=== PATIENT | male | born 1960 | race Caucasian/White ===

== ENCOUNTER 2019-06-13 10:45 | Outpatient (CLI) | payer OTHER, MEDICARE, SELFPAY ==
--- NOTE | ~2019-06-13 | XR_ITS ---
XR chest 2V 06/13/2019 11:37 Indication: Chest pain and shortness of breath Procedure: PA and lateral views of the chest Comparison: Comparison to multiple prior studies sequentially, with oldest reviewed study dated 04/22. Findings: Borderline heart size. Mild pulmonary vascular congestion. No focal pneumonia, pleural effu bree or pneumothorax. Impression: 1: Borderline heart size with mild pulmonary vascular congestion. Reviewed, dictated and finalized at location A. Impression: 1: Borderline heart size with mild pulmonary vascular congestion.
--- NOTE | 2019-06-13 11:35 | ECG_ITS ---
Measurements Intervals [place] Rate: 79 P: 67 AK: 218 QRS: 56 QRSD: 102 T: 49 QT: 360 QTc: 415 Interpretive Statements SINUS RHYTHM WITH FIRST DEGREE AV BLOCK BASELINE ARTIFACT- I, II, III, AVR, AVL, AVF ABNORMAL ECG Electronically Signed On 06-13-2019 14:07:32 CDT by Aidan Yadav D.O.
[2019-06-13 11:55] LABS: Alanine Aminotransferase 38 U/L (16-63); Albumin Level 3.2 g/dL (3.4-5.0); Alkaline Phosphatase 104 U/L (46-116); Anion Gap 14.2 mmol/L (7-16); Aspartate Amino Transferase 22 U/L (15-37); Bilirubin,Total 0.4 mg/dL (0.00-1.00); Blood Urea Nitrogen 71 mg/dL (7-18); Calcium 9.1 mg/dL (8.5-10.1); Carbon Dioxide 27 mmol/L (21-32); Chloride 103 mmol/L (98-108); Creatine Kinase 60 U/L (39-308); Estimated Glomerular Filt Rate 7; Glucose 227 mg/dL (70-99); Osmolality Calculated 315 mOsm/kg (285-295); Potassium 5.2 mmol/L (3.5-5.1); Sodium 139 mmol/L (136-145); Total Protein 6.9 g/dL (6.4-8.2); Troponin I < 0.02 ng/mL (0.00-0.056)
[2019-06-13 11:58] LABS: D Dimer 1.02 mg/L (0.19-0.50)
[2019-06-13 12:13] LABS: Basophils Absolute Auto 0.02 K/mm3 (0.00-0.10); Basophils Percent Auto 0.2 % (0.0-1.0); Eosinophils Absolute Auto 0.13 K/mm3 (0.02-0.50); Eosinophils Percent Auto 1.6 % (1.0-6.0); Hematocrit 30.3 % (40.0-54.0); Hemoglobin 10.5 g/dL (14.0-18.0); Immature Granulocyte Absolute 0.04 K/mm3 (0.00-0.00); Immature Granulocyte Percent A 0.5 % (0.0-0.0); Lymphocytes Absolute Auto 1.57 K/mm3 (1.10-4.50); Lymphocytes Percent Auto 19.1 % (18.0-42.0); Mean Corpuscular HGB Conc 34.7 g/dL (32.0-36.0); Mean Corpuscular Hemoglobin 35.2 pg (27.0-31.0); Mean Corpuscular Volume 101.7 fL (78.0-102.0); Mean Platelet Volume 9.3 fl (8.7-11.0); Monocytes Percent Auto 8.5 % (2.0-11.0); Neutrophils Absolute Auto 5.7 K/mm3 (1.7-7.2); Neutrophils Percent Auto 70.1 % (50.0-70.0); Platelet Count Result 172 K/mm3 (150-420); Red Blood Count 2.98 M/mm3 (4.70-6.10); Red Cell Distribution Width 12.6 % (11.6-14.4); White Blood Count 8.2 K/mm3 (4.8-10.8)
== END 2019-06-13 10:46 | disposition home or self-care (01) ==
LOC: CHSLAB 11:35
PROVIDERS: PCP Family Medicine; Visit Provider Family Medicine
DX: R07.9 Chest pain, unspecified (principal)
CPT/HCPCS: 36415; 71046; 80053; 82550; 82553; 84484; 85025; 85380; 93005

== ENCOUNTER 2019-06-15 07:38 | Outpatient (CLI) | payer OTHER, MEDICARE, SELFPAY ==
--- NOTE | ~2019-06-15 | CT_ITS ---
EXAMINATION: CTA chest PE protocol DATE: 06/15/2019 09:04 INDICATION: Anterior chest pain TECHNIQUE: Computed tomography angiography (CTA) of the chest was performed with 100 mL Omnipaque-350 intravenous contrast timed to evaluate the pulmonary arteries. Coronal maximum intensity projection 3D-reconstructions were created by the technologist. The dose-length product (DLP) was 1032.51 mGy-cm . Automated exposure control and iterative reconstruction technique were employed. COMPARISON: None. FINDINGS: The pulmonary arteries are well-opacified. No pulmonary embolism is identified. Dependent a telectasis is noted. There are are no focal airspace opacities. There is no pleural effusion or pneum othorax. No pathologically enlarged thoracic lymph nodes are identified. The heart size is normal. Ca lcified coronary artery atherosclerosis is noted. There is mild thoracic spondylosis. IMPRESSION: 1. No pulmonary embolism or acute cardiopulmonary abnormality. Reviewed, dictated and finalized at location A.
== END 2019-06-15 07:39 | disposition home or self-care (01) ==
LOC: CHSIMG 07:41
PROVIDERS: PCP Family Medicine; Visit Provider Family Medicine
DX: R07.9 Chest pain, unspecified (principal)
CPT/HCPCS: 71275; Q9965

== ENCOUNTER 2019-10-06 12:33 | Outpatient (CLI) | payer OTHER, MEDICARE, SELFPAY ==
[2019-10-06 16:20] LABS: Amphetamine Screen Urine Negative (Negative); Barbiturate Screen Urine Negative (Negative); Benzodiazepines Screen Urine Negative (Negative); Cannabinoid Screen Urine Negative (Negative); Cocaine Screen Urine Negative (Negative); Methadone Screen Urine Negative (Negative); Opiate Screen Urine Negative (Negative); Phencyclidine Screen Urine Negative (Negative)
== END 2019-10-06 12:34 | disposition home or self-care (01) ==
LOC: CHSLAB 12:34
PROVIDERS: PCP Family Medicine; Visit Provider Family Medicine
DX: Z02.6 Encounter for examination for insurance purposes (principal); L98.9 Disorder of the skin and subcutaneous tissue, unspecified; L03.90 Cellulitis, unspecified
CPT/HCPCS: 80307

== ENCOUNTER 2019-12-20 09:47 | Outpatient (CLI) | payer OTHER, MEDICARE, SELFPAY ==
--- NOTE | 2019-12-20 11:00 | NEURO_ITS ---
Patient Number: [id number] Impression: # Complains of numbness of hands. Patient is diabetic. # Bilateral Carpal Tunnel Syndrome, right more than left. 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 # Underlying neuropathic process (Diabetes Mellitus) # Abnormal needle/EMG exam. Nerve Conduction Studies Anti Sensory Summary Table Stim Site NR Peak (ms) P-T Amp (?V) Site1 Site2 Delta-P (ms) Dist (cm) Jadiel (m/s) Left Median Anti Sensory (2-3nd Digit) Wrist 5.3 9.7 Wrist 2-3nd Digit 5.3 14.0 26 Wrist 5.2 3.5 Wrist 2-3nd Digit 5.3 14.0 26 Right Median Anti Sensory (2-3nd Digit) Wrist 6.8 6.0 Wrist 2-3nd Digit 6.8 14.0 21 Wrist 6.7 15.6 Wrist 2-3nd Digit 6.8 14.0 21 Left Radial Anti Sensory (Base 1st Digit) Wrist 2.1 21.7 Wrist Base 1st Digit 2.1 0.0 Right Radial Anti Sensory (Base 1st Digit) Wrist 2.3 7.2 Wrist Base 1st Digit 2.3 0.0 Left Ulnar Anti Sensory (5th Digit) Wrist 4.4 10.0 Wrist 5th Digit 4.4 14.0 32 Right Ulnar Anti Sensory (5th Digit) Wrist 4.1 20.1 Wrist 5th Digit 4.1 14.0 34 Motor Summary Table Stim Site NR Onset (ms) O-P Amp (mV) Site1 Site2 Delta-0 (ms) Dist (cm) Jadiel (m/s) Left Median Motor (Abd Poll Brev) Wrist 5.2 2.8 Elbow Wrist 7.5 35.0 47 Elbow 12.7 0.9 Right Median Motor (Abd Poll Brev) Wrist 6.3 2.2 Elbow Wrist 6.5 31.0 48 Elbow 12.8 2.0 Left Ulnar Motor (Abd Dig Minimi) Wrist 3.1 4.0 A Elbow Wrist 7.9 36.0 46 A Elbow 11.0 2.5 B Elbow Wrist 7.4 31.0 42 B Elbow 10.5 2.8 Right Ulnar Motor (Abd Dig Minimi) Wrist 3.8 3.0 A Elbow Wrist 6.0 32.0 53 A Elbow 9.8 2.2 F Wave Studies NR F-Lat (ms) L-R F-Lat (ms) Left Median (Mrkrs) (Abd Poll Brev) 38.38 0.94 Right Median (Mrkrs) (Abd Poll Brev) 39.32 0.94 Left Ulnar (Mrkrs) (Abd Dig Min) 33.38 0.17 Right Ulnar (Mrkrs) (Abd Dig Min) 33.21 0.17 EMG Side Muscle Nerve Root Ins Act Fibs Amp Dur Recrt Comment Right 1stDorInt Ulnar C8-T1 Nml Nml Nml >12ms Reduced Right Ext Indicis Radial (Post Int) C7-8 Nml Nml Nml Nml Nml Right Ext Digitorum Radial (Post Int) C7-8 Nml Nml Nml Nml Nml Right BrachioRad Radial C5-6 Nml Nml Nml Nml Nml Right PronatorTeres Median C6-7 Nml Nml Nml Nml Nml Right Abd Poll Brev Median C8-T1 Nml Nml Nml Nml Nml Left 1stDorInt Ulnar C8-T1 Nml Nml Nml >12ms Reduced Left Ext Indicis Radial (Post Int) C7-8 Nml Nml Nml Nml Nml Left Ext Digitorum Radial (Post Int) C7-8 Nml Nml Nml Nml Nml Left BrachioRad Radial C5-6 Nml Nml Nml Nml Nml Left PronatorTeres Median C6-7 Nml Nml Nml Nml Nml Left Abd Poll Brev Median C8-T1 Nml Nml Nml Nml Nml Right ABD Dig Min Ulnar C8-T1 Nml Nml Nml Nml Nml Left ABD Dig Min Ulnar C8-T1 Nml Nml Nml >12ms Reduced MTDD
== END 2019-12-20 09:48 | disposition home or self-care (01) ==
PROVIDERS: PCP Family Medicine; Visit Provider Family Medicine
DX: G56.03 Carpal tunnel syndrome, bilateral upper limbs (principal); G56.22 Lesion of ulnar nerve, left upper limb
CPT/HCPCS: 95886; 95911

== ENCOUNTER 2020-08-21 09:53 | Outpatient (CLI) | payer OTHER, MEDICARE, SELFPAY ==
--- NOTE | ~2020-08-21 | NM_ITS ---
EXAMINATION: NM serafin stress w perfusion DATE: 08/21/2020 11:54 INDICATION: Dyspnea TECHNIQUE: Rest images were obtained following intravenous administration of 9.8 mCi Tc99m tetrofosmi n (Myoview). The patient was infused intravenously with Lexiscan (Regadenoson). Then, 31.77 mCi Tc99m tetrofosmin (Myoview) was administered intravenously, and stress images were obtained. Data was arjun nstructed into short axis and horizontal and vertical long axis SPECT images. Gated SPECT images were also obtained. COMPARISON: 01/29/1982 FINDINGS: There is a moderate-sized mild nonreversible perfusion defect at the apical, apical lateral , apical anterior, mid anterolateral and basilar anterolateral segments consistent with infarct. Ther e is adjacent mild reversible ischemia in the mid anterior and basilar anterior segments. This is new since the prior study. Left ventricular enlargement with normal wall motion and ejection fraction. Left ventricular ejection fraction measures 51%. IMPRESSION: 1. Moderate-sized mild perfusion defect, reversible consistent with ischemia in the mid anterior and basilar anterior segments and nonreversible consistent with infarct at the apical, apical anterior, a pical lateral, mid anterolateral and basilar inferolateral segments. 2. Mild left ventricular enlargement with normal left ventricular ejection fraction measuring 51%. Reviewed, dictated and finalized at location A. IMPRESSION: 1. Moderate-sized mild perfusion defect, reversible consistent with ischemia in the mid anterior and basilar anterior segments and nonreversible consistent wi th infarct at the apical, apical anterior, apical lateral, mid anterolateral an d basilar inferolateral segments. 2. Mild left ventricular enlargement with normal left ventricular ejection frac tion measuring 51%.
--- NOTE | 2020-08-21 10:02 | EST_ITS ---
Patient Info Name: Ramone Coleman Age: 60 years : 1960 Gender: Male Ht: 75 in Wt: 305 lbs BSA: 2.76 m2 Exam Date: 08/21/2020 10:53 AM Exam Location: [facility] Stress Patient Status: Outpatient Admit Date: 08/21/2020 Staff Ordering Physician: Aidan Yadav DO Attending Provider: Aidan Yadav DO Exercise Technologist: Mary Barker RDCS Exercise Physician: Aidan Yadav DO Exam Type: CA stress serafin w NM Study Info Indications R06.00 - Dyspnea, unspecified A regadenoson stress test was performed. Summary 1. 1. Negative lexiscan stress test for ischemic ST changes by ECG criteria. 2. 2. Baseline hypertension. 3. 3. Nuclear scan to follow and will be reported separately. Please correlate with it. 4. 4. Patient informed of the above results. Protocol: Lexiscan Stress ECG Details Stage: REST Duration (min): 0 min : 49 sec HR (bpm): 61 SBP (mmHg): 146 DBP (mmHg): 61 Stage: REST Duration (min): 4 min : 57 sec HR (bpm): 59 SBP (mmHg): 146 DBP (mmHg): 61 Stage: STAGE 1 Duration (min): 1 min : 0 sec HR (bpm): 64 SBP (mmHg): 146 DBP (mmHg): 61 Stage: RECOVERY Duration (min): 1 min : 0 sec HR (bpm): 67 SBP (mmHg): 146 DBP (mmHg): 61 Stage: RECOVERY Duration (min): 2 min : 0 sec HR (bpm): 65 SBP (mmHg): 146 DBP (mmHg): 61 Stage: RECOVERY Duration (min): 3 min : 0 sec HR (bpm): 65 SBP (mmHg): 148 DBP (mmHg): 52 Stage: RECOVERY Duration (min): 3 min : 4 sec HR (bpm): 65 SBP (mmHg): 148 DBP (mmHg): 52 Rest HR: 59 bpm Peak HR: 67 bpm Rest Sys BP: 146 mmHg Peak Sys BP: 148 mmHg Max Pred HR: 158 bpm % Max Pred HR: 42 % Target HR: 134 bpm Max RPP: 9,916 bpm*mmHg Termination Reason: Completed protocol Cardiac Symptoms: Shortness of breath Total Time: 1 min : 0 sec Rest Kiser BP: 61 mmHg Peak Kiser BP: 52 mmHg Total Dose: 0.4 mg Resting ECG Sinus rhythm, borderline T wave in inferior leads. Stress ECG No ST changes. Arrhythmias None. Report Signatures
== END 2020-08-21 09:54 | disposition home or self-care (01) ==
PROVIDERS: PCP Family Medicine; Visit Provider Internal Medicine Cardiovascular Disease
DX: R06.00 Dyspnea, unspecified (principal); R94.39 Abnormal result of other cardiovascular function study; I10 Essential (primary) hypertension
CPT/HCPCS: 78452; 93017; A9502; J2785

== ENCOUNTER 2020-10-09 01:02 | Day surgery (SDC) | payer OTHER, MEDICARE, SELFPAY ==
[2020-10-09] VITALS (25 sets, daily range): BP systolic 127–162; BP diastolic 56–88; PULSE 49–66; RESP 16–20; TEMP 35.7–36.7; O2SAT 87–98; BMI 39.4; BMI 39.5
--- NOTE | 2020-10-09 10:03 | MISC_ITS ---
This report was moved to the correct visit, [id number] on 10/10/20. Original report was signed by Ariel Albarran MD 10/09/20 1207. Moderate Sedation Note-Pt Data Patient Data Allergies Allergy/AdvReac Type Severity Reaction Status Date / Time No Known Allergies Allergy Unknown Verified 10/09/20 07:51 Home Medications Medication Instructions Recorded Confirmed Type atorvastatin 80 mg PO HS 07/15/19 10/09/20 History clopidogrel [Plavix] 75 mg PO DAILY 07/15/19 10/09/20 History diltiazem HCl 120 mg PO DAILY 07/15/19 10/09/20 History furosemide 40 mg PO DAILY 07/15/19 10/09/20 History gabapentin 600 mg PO TID 07/15/19 10/09/20 History glimepiride 4 mg PO BID 07/15/19 10/09/20 History isosorbide mononitrate 120 mg PO DAILY 07/15/19 10/09/20 History losartan 50 mg PO DAILY 07/15/19 10/09/20 History metformin 500 mg PO BID 07/15/19 07/15/19 History omeprazole 40 mg PO DAILY 07/15/19 10/09/20 History acetaminophen [Mapap 650 mg PO Q4H PRN 14 Days #30 07/22/19 10/09/20 Rx (acetaminophen)] tablet apixaban [Eliquis] 5 mg PO Q12HR 14 Days #28 tablet 07/22/19 Rx magnesium oxide 200 mg PO Q12HR 3 Days #3 tablet 07/22/19 Rx miconazole nitrate [Aloe [place] 1 applic TOPICAL Q12HR #1692 gm 07/22/19 Rx Antifungal (micon)] hydrocodone-acetaminophen 1 tab PO Q6-8H PRN 10/09/20 10/09/20 History Current Medications: Active Medications Clopidogrel Bisulfate (Clopidogrel Bisulfate 75 Mg Tablet) 75 mg PO QAM DINH Dextrose (Dextrose 50% 25 Gm/50 Ml Syringe) 12.5 gm IV PUSH PRN PRN; Protocol PRN Reason: Hypoglycemia Glucagon (Glucagon For Inj 1 Mg Vial) 1 mg IM PRN PRN; Protocol PRN Reason: Hypoglycemia Glucose (Glucose Oral Gel 15 Gm Of Glucse In 37.5 Gm Tube) 15 gm PO PRN PRN; Protocol PRN Reason: Hypoglycemia Piperacillin Sod/Tazobactam Sod (Zosyn 2.25 Gm/D5w 50 Ml) 2.25 gm in 50 mls @ 100 mls/hr IVPB Q6H DINH Last Admin: 10/09/20 10:58 Dose: 100 mls/hr Documented by: Sodium Chloride (Normal Saline Iv) 1,000 mls @ 50 mls/hr IV CONT .Q20H DINH Last Admin: 10/09/20 10:59 Dose: 50 mls/hr Documented by: Dextrose (Dextrose 5% 1,000 Ml) 1,000 mls @ 100 mls/hr IVPB PRN PRN; Protocol PRN Reason: Hypoglycemia Insulin Aspart (Insulin Aspart (*Bkc) 100 Units/Ml) 2 - 5 units SUB-Q TIDWM DINH; Protocol Ondansetron HCl (Ondansetron Inj 4 Mg/2 Ml Vial) 4 mg IV PUSH Q4H PRN PRN Reason: Nausea Sedation/Anesthesia: No previous sedation/anesthesia problems (including family history). PMFSH Past Medical History Medical History Coronary artery disease DM type 2 (diabetes mellitus, type 2) DVT (deep venous thrombosis) GERD (gastroesophageal reflux disease) Hyperlipidemia Hypertension Peripheral arterial disease Surgical History Surgical History H/O cardiac catheterization History of revascularization procedure of lower extremity Hx of CABG Family History Family History Sibling Family history of cardiovascular disease Father Family history of cardiovascular disease Son Depression Son Family history of seizure disorder Other Family history of seizure disorder Other Cerebrovascular accident Diabetes mellitus Family history of arthritis Family history of coronary artery disease Family history of hypercholesterolemia Family history of mental disorder Family history of obesity Hypertension Social History Social History (Reviewed 10/09/20 @ 1
--- NOTE | 2020-10-09 10:10 | SUR.PREOP ---
ARRIVES TO [facility] W/ AT SIDE FOR SCHEDULED LHC W/ DR. CRAFT. DENIES CP OR SOB ON ARRIVAL. IS HEMODIALYSIS PT; FISTULA IS ON L. ARM. ORIENTED TO ROOM, PLAN OF CARE, ORDERS, PROCEDURE. QUESTIONS ANSWERED. LAB RESULTS ON CHART FROM [employer]. IV STARTED BY YOVANA MUÑOZ RN WITH ULTRASOUND. VS OBTAINED, SKIN PREPPED, PULSES MARKED, CONSENT SIGNED. PT. STATES HE VOIDS LITTLE. WILL CONTINUE TO MONITOR.
--- NOTE | 2020-10-09 12:15 | SUR.PHASEII ---
BEGIN PHASE II RECOVERY. RETURNS TO LANDSCAPE DESIGNER 7 S/P [facility] W/ DR. CRAFT. 6FR SHEATH INTACT R. GROIN SITE. SITE SOFT, NONTENDER. NO BLEEDING OR HEMATOMA NOTED. GAUZE AND TEGADERM DRESSING C/D/I OVER SITE. R. PEDAL PULSE PALP STRONG. REVIEWED BEDREST ACTIVITY RESTRICTIONS /W PT. AND . ANGIOMAX GTT OFF AT 1200. SHEATH MAY BE PULLED AFTER 1400. WILL CONTINUE TO MONITOR.
[2020-10-09] MEDS: HYDROcodone/acetaminophen (*CRX) 7.5-325 MG TABLET 1 TAB PO ×4 (13:17→20:40)
--- NOTE | 2020-10-09 14:00 | SUR.PHASEII ---
DUE TO PT'S IMPAIRED RENAL STATUS (ON HEMODIALYSIS), WILL CHECK ACT VALUE BEFORE PULLING SHEATH. EXPLAINED TO PT AND .
--- NOTE | 2020-10-09 14:41 | SUR.PHASEII ---
1441: ACT 186. UNABLE TO PULL SHEATH AT THIS TIME UNTIL ACT VALUE LESS THAN OR EQUAL TO 140. EXPLAINED THIS TO PT. AND . VOICED UNDERSTANDING.
--- NOTE | 2020-10-09 15:48 | SUR.PHASEII ---
1548: ACT NOW AT 180. HAS ONLY DROPPED 6 POINTS SINCE LAST HOUR. STILL UNABLE TO SAFELY DISCONTINUE SHEATH R. GROIN AT THIS TIME DUE TO BLEEDING RISK. PT AND AWARE. WILL RECHECK ACT IN 1 HOUR. WILL CONTINUE TO MONITOR. ZANJERO, CARDIOLOGY DRIVER SUPERVISOR TAHIRA, AND SUSTAINABILITY OFFICER AWARE OF ELEVATED ACT.
--- NOTE | 2020-10-09 16:45 | SUR.PHASEII ---
1645: ACT NOW AT 169. WILL CONTINUE TO MONITOR.
--- NOTE | 2020-10-09 17:48 | SUR.PHASEII ---
1748: ACT NOW AT 158. BLOOD GLUCOSE AT 72. BEDREST CONTINUES. TAHIRA CASTAÑEDA INCOME TAX AUDITOR HERE. SHEATH MAY BE PULLED ONCE ACT AT OR BELOW 140. PT. AND AWARE. WILL CONTINUE TO MONITOR.
[2020-10-09 17:56] LABS: Glucose Point of Care 72 mg/dl (65-105)
--- NOTE | 2020-10-09 18:51 | SUR.PHASEII ---
1851: ACT NOW 164. TAHIRA CASTAÑEDA MULTIPLE NEEDLE STITCHER AWARE. SHE SPOKE W/ DR. CRAFT. NO CHANGE IN STATUS OTHERWISE. R. GROIN SITE REMAINS SOFT, NONTENDER. BEDREST CONTINUES. WILL CONTINUE TO MONITOR.
--- NOTE | 2020-10-09 20:50 | SUR.PHASEII ---
HAVE BEEN UNABLE TO OBTAIN ADDITIONAL ACT RESULTS USING I-STAT AND LAB UNABLE TO RUN ACT AT THIS TIME. WILL DISCONTINUE SHEATH PER DR. CRAFT'S ORDER; HE IS AWARE LAST ACT RESULT 164. HAVE REQUESTED BACKUP TO MANUALLY PULL SHEATH. AWAIT ARRIVAL OF BACKUP STAFF FOR SAFETY.
[2020-10-09] MEDS: ALBUTEROL SULFATE (*SP) AEROSOL 1 PUFF INHALATION (21:40)
[2020-10-09] MEDS: hydrALAZINE HCL 50 MG TABLET 100 MG PO (21:45)
[2020-10-09] MEDS: GABAPENTIN 300 MG CAPSULE 600 MG PO (21:45)
[2020-10-09] MEDS: carvediloL 25 MG TABLET PO (21:45)
--- NOTE | 2020-10-09 21:57 | WPDCARDPROC ---
Cardiac Cath Procedure Note Date of procedure:: 10/09/20 Performing physician:: Ariel Albarran MD Procedure Procedure note:: Performing physician:: Ariel Albarran MD Procedure performed:: CARDIAC CATHETERIZATION AND PERCUTANEOUS CORONARY INTERVENTION REPORT DATE OF PROCEDURE: 10/09/2020 INDICATION FOR PROCEDURE: chest pain, shortness of breath, abnormal dobutamine stress echo; history of CAD BRIEF CLINICAL HISTORY: 60-year-old male with CAD, history of PCI/stenting of LCX at outside hospital -intervention report not available; hypertension, diabetes mellitus, ESRD on hemodialysis, dyslipidemia with reported history of intolerance to statins in the form of myalgia. Patient was referred by Dr. Yadav for coronary angiogram in the setting of anginal chest pain, shortness of breath and abnormal dobutamine stress echo. Patient had dobutamine stress echo performed at [facility] on 07/12/2020 prior consideration for renal transplant which reportedly showed global hypokinesis at peak stress with apical akinesis. Coronary angiogram was recommended. Benefits and risks of the procedure were discussed with the patient in depth, and informed consent was obtained prior to the procedure. Risks of the procedure include but are not limited to vascular complications including groin hematoma, retroperitoneal bleed, vessel perforation; periprocedural DC, cardiac arrhythmias, stroke, contrast induced nephropathy, and . After discussing all the benefits, risks and alternatives, patient was willing to proceed with the procedure. PROCEDURES PERFORMED: 1. Left heart catheterization- Selective left and right coronary angiogram; left ventriculogram and hemodynamic assessment 2. Percutaneous coronary intervention- a) IFR of proximal LAD b) intravascular ultrasound (IVUS) of ostial-proximal LAD 3. Moderate sedation-CPT code 19699 MODERATE SEDATION: Midazolam 2 mg; fentanyl 50 mcg. Start time 1109 , Stop time 1202 ; Total [id number]-[id number] time 53 minutes; Aura Osman RN was trained observer for moderate sedation. ACCESS SITE: Right common femoral artery PROCEDURE NOTE: After obtaining informed consent, patient was brought to catheterization lab and prepped and draped in a usual sterile manner. After local anesthesia with lidocaine, right common femoral artery access was taken with micropuncture needle followed by insertion of a 5 Mexican sheath. Selective left and right coronary angiogram was performed using 5 Mexican JL4 and JR4 catheters respectively. Orthogonal views were taken. Next, a 5 Mexican pigtail catheter was advanced in the LV cavity and was flushed with normal saline. LV pressure measurement was performed. After this, left ventriculogram was performed. The catheter was flushed again, and gradient across the aortic valve was measured on the pullback of the catheter. The angiographic and IFR and IVUS findings are given below. FINDINGS: LEFT MAIN CORONARY: The left main coronary artery is a large caliber, long vessel with minimal plaque in the distal segment. The vessel bifurcates into LAD and left circumflex branches. LEFT ANTERIOR DESCENDING ARTERY: The LAD is a large caliber vessel in the proximal most segment, poorly defined about 50 to 60% stenosis seen in the proximal segment at the origin of the diagonal branch ( IFR and IVUS findings described below). The vessel tapers distally and reaches LV apex. D1 is a medium caliber vessel with poorly defined stenosis at the ostium. D2 is a medium caliber vessel without significant focal stenosis. Remaining diagonal branches are small caliber vessels. LEFT CIRCUMFLEX ARTERY: The left circumflex artery is a medium caliber vessel; gives rise to small caliber OM1 branch with mild diffuse disease in the proximal segment; a medium caliber OM2 branch with mild diffuse disease in the proximal segment. Mid distal LCX has stents extending into the proximal segment of the OM 3 branch. High-grade, m
--- NOTE | 2020-10-09 21:58 | SUR.PHASEII ---
LAST BLOOD GLUCOSE AT 0, 96. GAVE HS MEDS AT 2150 WITH SMALL SNACK OF VANILLA WAFERS. JORGE CARABALLO RN HERE FOR BACKUP FOR SHEATH PULL. MANUAL 6FR R. GROIN SHEATH PULL AT THIS TIME BY THIS RN PER PROTOCOL. FIRM, STEADY MANUAL PRESSURE TO SITE UNTIL HEMOSTASIS ACHIEVED. WILL MONITOR CLOSELY.
--- NOTE | 2020-10-09 22:03 | PM.IMHP ---
H&P: HPI History of Present Illness Date/Time: 10/09/20 22:03 CC- Chest pain and shortness of breath HPI- 60-year-old male with CAD, history of PCI/stenting of LCX at outside hospital -intervention report not available; hypertension, diabetes mellitus, ESRD on hemodialysis, dyslipidemia with reported history of intolerance to statins in the form of myalgia. Patient was referred by Dr. Yadav for coronary angiogram in the setting of anginal chest pain, shortness of breath and abnormal dobutamine stress echo. Patient had dobutamine stress echo performed at [facility] on 07/12/2020 prior consideration for renal transplant which reportedly showed global hypokinesis at peak stress with apical akinesis. Coronary angiogram was recommended. Chief Complaint: CP, [facility] Past Medical History Medical History Acute upper respiratory infection, unspecified Chest pain in adult Dupuytren contracture Edema of both legs GERD (gastroesophageal reflux disease) HTN (hypertension) (12/30/16) Hyperlipidemia (12/30/16) Obstructive sleep apnea (09/10/17) ORIANA on CPAP Shortness of breath (09/10/17) Type 2 diabetes mellitus (12/30/16) Surgical History Surgical History History of elbow surgery History of knee surgery History of shoulder surgery History of surgery on arm Family History Family History Father Diabetes mellitus Mother Diabetes mellitus Mother Family history of type 2 diabetes mellitus Father Family history of coronary artery disease Family history of type 2 diabetes mellitus Brother Family history of type 2 diabetes mellitus Cerebrovascular accident Social History Social History Smoking packs per day: 2 Smoking cigarettes per day: 40.0 Years smoked: 50 Smoking pack-years: 100.00 Smoking status: Former smoker Second hand tobacco smoke exposure: Yes Smoking end date: 03/11/17 Alcohol intake: former Substance use: never Substance use type: does not use Living arrangements: with family Additional living arrangements comments: LIVES W/ , [place] Gender identity (if verbalized by the patient): Male Spiritual care concerns: No Meds Home Medications and Allergies Home Medications Medication Instructions Recorded Confirmed Type aspirin 81 mg tablet,delayed 81 mg PO DAILY 03/16/19 10/09/20 History release gabapentin 300 mg capsule 600 mg PO HS 03/16/19 10/09/20 History insulin lispro protamine-lispro 1 sliding scale dose SUB-Q 03/16/19 10/09/20 History 100 unit/mL (50-50) subcutaneous USEASDIRECTD susp levothyroxine 100 mcg tablet 100 mcg PO DAILY 03/16/19 10/09/20 History losartan 100 mg tablet 100 mg PO DAILY 03/16/19 10/09/20 History metolazone 2.5 mg tablet 2.5 mg PO DAILY 03/16/19 10/09/20 History triamcinolone acetonide 0.1 % 1 applic TOPICAL BID 03/16/19 10/09/20 History topical cream multivitamin 1 tablet PO DAILY 03/17/19 10/09/20 History omega-3 fatty acids 1,000 mg 1,000 mg PO DAILY 02/02/20 10/09/20 History capsule sucroferric oxyhydroxide 500 mg 500 mg PO TID 02/03/20 10/09/20 History chewable tablet dextromethorphan-guaifenesin 10 10 ml PO Q4-6H PRN #500 ml 05/22/20 10/09/20 Rx mg-100 mg/5 mL oral liquid albuterol sulfate 1 inh INHALATION Q4H PRN 10/09/20 10/09/20 History amlodipine 10 mg PO DAILY 10/09/20 10/09/20 History bumetanide 8 mg PO DAILY 10/09/20 10/09/20 History carvedilol 25 mg PO Q12H 10/09/20 10/09/20 History cholecalciferol (vitamin D3) 25 mcg PO DAILY 10/09/20 10/09/20 History [Vitamin D3] hydralazine 100 mg PO BID 10/09/20 10/09/20 History hydrocodone-acetaminophen 1 tablet PO Q4-6H PRN 10/09/20 10/09/20 History hydrocodone-acetaminophen 2 tablet PO Q4-6H PRN 10/09/20 10/09/20 History isosorbide mononitrate
--- NOTE | 2020-10-09 22:05 | WPDMODSED ---
Moderate Sedation Note-Pt Data Patient Data Allergies Allergy/AdvReac Type Severity Reaction Status Date / Time No Known Allergies Allergy Verified 10/09/20 11:01 Home Medications Medication Instructions Recorded Confirmed Type aspirin 81 mg tablet,delayed 81 mg PO DAILY 03/16/19 10/09/20 History release gabapentin 300 mg capsule 600 mg PO HS 03/16/19 10/09/20 History insulin lispro protamine-lispro 1 sliding scale dose SUB-Q 03/16/19 10/09/20 History 100 unit/mL (50-50) subcutaneous USEASDIRECTD susp levothyroxine 100 mcg tablet 100 mcg PO DAILY 03/16/19 10/09/20 History losartan 100 mg tablet 100 mg PO DAILY 03/16/19 10/09/20 History metolazone 2.5 mg tablet 2.5 mg PO DAILY 03/16/19 10/09/20 History triamcinolone acetonide 0.1 % 1 applic TOPICAL BID 03/16/19 10/09/20 History topical cream multivitamin 1 tablet PO DAILY 03/17/19 10/09/20 History omega-3 fatty acids 1,000 mg 1,000 mg PO DAILY 02/02/20 10/09/20 History capsule sucroferric oxyhydroxide 500 mg 500 mg PO TID 02/03/20 10/09/20 History chewable tablet dextromethorphan-guaifenesin 10 10 ml PO Q4-6H PRN #500 ml 05/22/20 10/09/20 Rx mg-100 mg/5 mL oral liquid albuterol sulfate 1 inh INHALATION Q4H PRN 10/09/20 10/09/20 History amlodipine 10 mg PO DAILY 10/09/20 10/09/20 History bumetanide 8 mg PO DAILY 10/09/20 10/09/20 History carvedilol 25 mg PO Q12H 10/09/20 10/09/20 History cholecalciferol (vitamin D3) 25 mcg PO DAILY 10/09/20 10/09/20 History [Vitamin D3] hydralazine 100 mg PO BID 10/09/20 10/09/20 History hydrocodone-acetaminophen 1 tablet PO Q4-6H PRN 10/09/20 10/09/20 History hydrocodone-acetaminophen 2 tablet PO Q4-6H PRN 10/09/20 10/09/20 History isosorbide mononitrate 30 mg PO DAILY 10/09/20 10/09/20 History magnesium oxide 400 mg PO DAILY 10/09/20 10/09/20 History sevelamer carbonate 2,400 mg PO TID 10/09/20 10/09/20 History Current Medications: Active Medications Hydrocodone Bitart/Acetaminophen (Hydrocodone/Acetaminophen (*Crx) 7.5-325 Mg Tablet) 1 tab PO Q4-6H PRN PRN Reason: Pain, Moderate Last Admin: 10/09/20 20:40 Dose: 1 tab Documented by: Hydrocodone Bitart/Acetaminophen (Hydrocodone/Acetaminophen (*Crx) 7.5-325 Mg Tablet) 2 tab PO Q4-6H PRN PRN Reason: Pain (Scale Score 7-10) Albuterol (Albuterol Sulfate (*Sp) Aerosol 1 Puff) 1 puff INHALATION Q4HRT PRN PRN Reason: Shortness Of Breath Or Wheezin Amlodipine Besylate (Amlodipine Besylate 5 Mg Tablet) 10 mg PO DAILY [facility] Aspirin (Aspirin 81 Mg Enteric Tablet) 81 mg PO DAILY [facility] Bumetanide (Bumetanide 1 Mg Tablet) 8 mg PO DAILY [facility] Carvedilol (Carvedilol 25 Mg Tablet) 25 mg PO Q12H [facility] Dextrose (Dextrose 50% 25 Gm/50 Ml Syringe) 12.5 gm IV PUSH PRN PRN; Protocol PRN Reason: Hypoglycemia Fish Oil ([place] 3 Polyunsat Fatty Acids 1 Gm Cap) 1 gm PO DAILY [facility] Gabapentin (Gabapentin 300 Mg Capsule) 600 mg PO HS [facility] Glucagon (Glucagon For Inj 1 Mg Vial) 1 mg IM PRN PRN; Protocol PRN Reason: Hypoglycemia Glucose (Glucose Oral Gel 15 Gm Of Glucse In 37.5 Gm Tube) 15 gm PO PRN PRN; Protocol PRN Reason: Hypoglycemia Guaifenesin/Dextromethorphan (Guaifenesin/Dextromethorphan 10 Ml Udc) 10 ml PO Q4-6H PRN PRN Reason: cough Hydralazine HCl (Hydralazine Hcl 50 Mg Tablet) 100 mg PO BID [facility] Sodium Chloride (Normal Saline Iv) 500 mls @ 100 mls/hr IV CONT .Q5H [facility] Dextrose (Dextrose 5% 1,000 Ml) 1,000 mls @ 100 mls/hr IVPB PRN PRN; Protocol PRN Reason: Hypoglycemia Insulin Lispro Protam/Lispro Human (Insulin Npl/Insulin Lispro 50/50 100 Units/Ml Vial (*Bkc)) units SUB-Q USEASDIRECTD [facility] Isosorbide Mononitrate (Isosorbide Mononitrate 30 Mg Tab.Er.24h) 30 mg PO DAILY [facility] Levothyroxine Sodium (Levothyroxine Sodium 100 Mcg Tablet) 100 mcg PO DAILY [facility] Losartan Potassium (Losartan Potassium 100 Mg Tablet) 100 mg PO DAILY [facility] Magnesium Oxide (Magnesium Oxide 400 Mg Tablet) 400 mg PO DAILY [facility] Metolazone (Metolazone 2.5 Mg Tablet) 2.5 mg PO DAILY [facility] Multivitamins Therapeuti
--- NOTE | 2020-10-09 22:30 | SUR.PHASEII ---
HEMOSTASIS ACHIEVED TO R. GROIN PUNCTURE SITE AFTER 32 MINUTE MANUAL PRESSURE HOLD TO SITE BY THIS RN. TOLERATED WELL. SITE SOFT, NONTENDER. NO SIGNS OF HEMATOMA OR BLEEDING NOTED. SITE DRESSED W/ STAT SEAL AND TEGADERM DRESSING. REVIEWED BEDREST ACTIVITY RESTRICTIONS AND PRECAUTIONS W/ PT. VOICED UNDERSTANDING. BEDREST X 6 HOURS NOW POST HEMOSTASIS UNTIL 0430. HAS HAD ONGOING C/O CHRONIC BACK PAIN SINCE RESTRICTED TO LAY FLAT IN BED. HAVE MEDICATED W/ PRN RX ORDERED. WILL CONTINUE TO MONITOR. PLAN TRANSFER TO IMU 205.1 EXTENDED RECOVERY STATUS PT. AFTER OUTPATIENT PROCEDURE. PT. AND ARE AWARE.
[2020-10-09] MEDS: ONDANSETRON INJ 4 MG/2 ML VIAL IV PUSH (22:50)
--- NOTE | 2020-10-09 23:00 | SUR.PHASEII ---
C/O NAUSEA AND HAD EMESIS AT 2245. APPROX 200ML YELLOW CREAMY FLUID. ZOFRAN 4MG IVP GIVEN AND COLD CLOTH TO FOREHEAD. NAUSEA EASING BY 2300. REPORT CALLED TO CHRISTY MG IN IMU. PT. TO TRANSFER TO IMU 205.1 EXTENDED RECOVERY STATUS PT.
--- NOTE | 2020-10-09 23:20 | SUR.PHASEII ---
PHASE II RECOVERY COMPLETE. TRANSFERRED TO IMU 205. 1 VIA BED ON TELE MONITOR TO CONTINUE STAY EXTENDED RECOVERY STATUS PT AFTER OUTPATIENT PROCEDURE. OBSERVED R. GROIN SITE Edy/ CHRISTY MG ON ARRIVAL. NO NEW CHANGES R. GROIN STATUS. REPORTS NAUSEA SUBSIDED. NO DISTRESS NOTED.
--- NOTE | 2020-10-09 23:21 | ADMGEN ---
This patient, Ramone Coelman, was admitted EXTENDED RECOVERY AFTER OUTPATIENT PROCEDURE FROM CLINIC OFFICE ASSISTANT 7 to IMU Room 205-01. Patient/family oriented to hospital policies and general routines including ID bracelet, bed and alarms, visiting hours, pain management, procedures, bathroom and other care routines, personal items, smoking policy, room service/diet, and visiting hours. REPORT HAS BEEN CALLED TO CHRISTY MG AT 2300 AND BOTH CHRISTY AND THIS RN OBSERVE RLuann PARSONS SITE STATUS AT THIS TIME. Information on how to activate the Rapid Response Team has been discussed. Patient/Family are encouraged to report perceived risks to care and to ask questions if they do not understand what they are told or what they should do.
[2020-10-10] VITALS (12 sets, daily range): BP systolic 116–147; BP diastolic 49–65; PULSE 48–64; RESP 12–24; TEMP 36.1–37.2; O2SAT 91–98
--- NOTE | 2020-10-10 00:11 | PC.NURSE ---
This patient, Ramone Coleman, was received from [[facility] ] on 10/09/20 at 2330. Patient/family oriented to unit policies and routines
[2020-10-10 02:07] LABS: Activated Clotting Time 180 sec (74-137)
[2020-10-10 02:07] LABS: Activated Clotting Time 158 sec (74-137)
[2020-10-10 02:07] LABS: Activated Clotting Time 186 sec (74-137)
[2020-10-10 02:07] LABS: Activated Clotting Time 164 sec (74-137)
[2020-10-10 02:07] LABS: Activated Clotting Time 169 sec (74-137)
[2020-10-10] MEDS: LEVOTHYROXINE SODIUM 100 MCG TABLET PO (05:49)
[2020-10-10 08:12] LABS: Glucose Point of Care 96 mg/dl (65-105)
[2020-10-10] MEDS: carvediloL 25 MG TABLET PO (09:22)
[2020-10-10] MEDS: SEVELAMER CARBONATE 800 MG TABLET 2400 MG PO (09:22)
[2020-10-10] MEDS: amLODIPine BESYLATE 5 MG TABLET 10 MG PO (09:22)
[2020-10-10] MEDS: hydrALAZINE HCL 50 MG TABLET 100 MG PO (09:22)
[2020-10-10] MEDS: LOSARTAN POTASSIUM 100 MG TABLET PO (09:23)
[2020-10-10] MEDS: OMEGA 3 POLYUNSAT FATTY ACIDS 1 GM CAP PO (09:23)
[2020-10-10] MEDS: BUMETANIDE 1 MG TABLET 8 MG PO (09:23)
[2020-10-10] MEDS: metOLazone 2.5 MG TABLET PO (09:23)
[2020-10-10] MEDS: CHOLECALCIFEROL 1,000 UNITS TABLET 1000 UNITS PO (09:23)
[2020-10-10] MEDS: MULTIVITAMINS THERAPEUTIC TAB (*BKC) 1 TABLET PO (09:23)
[2020-10-10] MEDS: ASPIRIN 81 MG ENTERIC TABLET PO (09:23)
[2020-10-10] MEDS: ISOSORBIDE MONONITRATE 30 MG TAB.ER.24H PO (09:23)
[2020-10-10] MEDS: MAGNESIUM OXIDE 400 MG TABLET PO (09:23)
--- NOTE | 2020-10-10 09:26 | PM.PNCARD ---
Progress Note: A&P Assessment and Plan (1) Angina at rest: Code(s): I20.8 - Other forms of angina pectoris Status: Acute Assessment and Plan: Status post Left Heart Cath (LHC) 10/09/2020 with calcific stenosis proximal LAD 70% by IVUS, IFR 0.89, severe InStent restenoses distal left circumflex/OM3, 50% eccentric stenosis mid RCA, high-grade 90% stenosis distal RCA EF 60% LVEDP 22 mm Hg. (2) CAD in [place] artery: Code(s): I25.10 - Atherosclerotic heart disease of [place] coronary artery without angina pectoris Status: Acute Assessment and Plan: See above. Continue aspirin, beta-venkat, nitrates, losartan. Initiate statin therapy atorvastatin 40 mg at bedtime. No complications post cardiac catheterization. Right groin without hematoma, bleeding, bruit. Observed overnight without complication. Patient stable condition for discharge home to follow up as an outpatient with referral to Cardiothoracic surgery per Dr. Albarran. Follow-up with Dr. Hinojosa scheduled within 2-4 weeks. Post cardiac catheterization precautions reviewed in detail the patient. Patient verbalized understanding and agreed with plan of care. See discharge instructions. Monitor for bleeding closely as counseled. (3) HTN (hypertension): Onset Date: 12/30/16 Code(s): I10 - Essential (primary) hypertension Status: Acute Assessment and Plan: Fair control. Continue current medical therapy. (4) ORIANA on CPAP: Code(s): G47.33 - Obstructive sleep apnea (adult) (pediatric); Z99.89 - Dependence on other enabling machines and devices Status: Acute Assessment and Plan: CPAP. (5) Dyslipidemia: Code(s): E78.5 - Hyperlipidemia, unspecified Status: Acute Assessment and Plan: As above, add atorvastatin 40 mg at bedtime at discharge. (6) ESRD (end stage renal disease) on dialysis: Code(s): N18.6 - End stage renal disease; Z99.2 - Dependence on renal dialysis Status: Acute Assessment and Plan: Hemodialysis per Nephrology. (7) Abnormal dobutamine stress echo: Code(s): R94.39 - Abnormal result of other cardiovascular function study Status: Acute Assessment and Plan: [facility] recommended with severe multivessel coronary disease. Subjective Date/time seen: Date of service: 10/10/20 09:26 Follow-up post coronary angiography Patient was kept overnight due to monitor requires for late evening sheath pole in a patient at elevated risk for bleeding complications. No issues overnight. Sheath was pulled without complication. Patient notes minimal tenderness, no swelling, hematoma or bleeding. No chest pain or shortness of breath. Patient ready for discharge home. He denies dizziness, fevers, chills. Review of Systems Review of Systems: All systems reviewed & are unremarkable except as noted in HPI and below Constitutional: Constitutional: Reports as per HPI and Reports no additional constitutional complaints Eyes: Eyes: Reports as per HPI and Reports no additional eye complaints ENT: Reports system reviewed and no additional complaints, except as documented and Reports as per HPI Cardiovascular: Cardiovascular: Reports as per HPI and Reports no additional cardiovascular complaints Respiratory: Respiratory: Reports as per HPI and Reports no additional respiratory complaints Gastrointestinal: Gastrointestinal: Reports as per HPI and Reports no additional gastrointestinal complaints Genitourinary: Genitourinary: Reports no additional male genitourinary complaints and Reports as per HPI Musculoskeletal: Musculoskeletal: Reports no additional musculoskeletal complaints and Reports as per HPI Integumentary/Breasts: Skin/Breast: Reports system reviewed and no additional complaints, except as docu and Reports as per HPI Neurologic: Reports system reviewed and no additional complaints, except as documented and Reports as per HPI Psychiatric: Psychiatric:
--- NOTE | 2020-10-10 09:38 | PM.DS ---
DS: Admitting Diagnosis Admitting Diagnosis Angina Abnormal stress test End-stage renal disease on hemodialysis Hypertension Dyslipidemia ORIANA on CPAP DS: Discharge Diagnosis Discharge Diagnosis (1) Angina at rest: Code(s): I20.8 - Other forms of angina pectoris Status: Acute Assessment and Plan: Status post Left Heart Cath (LHC) 10/09/2020 with calcific stenosis proximal LAD 70% by IVUS, IFR 0.89, severe InStent restenoses distal left circumflex/OM3, 50% eccentric stenosis mid RCA, high-grade 90% stenosis distal RCA EF 60% LVEDP 22 mm Hg. (2) CAD in [place] artery: Code(s): I25.10 - Atherosclerotic heart disease of [place] coronary artery without angina pectoris Status: Acute Assessment and Plan: See above. Continue aspirin, beta-venkat, nitrates, losartan. Initiate statin therapy atorvastatin 40 mg at bedtime. No complications post cardiac catheterization. Right groin without hematoma, bleeding, bruit. Observed overnight without complication. Patient stable condition for discharge home to follow up as an outpatient with referral to Cardiothoracic surgery per Dr. Albarran. Follow-up with Dr. Hinojosa scheduled within 2-4 weeks. Post cardiac catheterization precautions reviewed in detail the patient. Patient verbalized understanding and agreed with plan of care. See discharge instructions. Monitor for bleeding closely as counseled. (3) HTN (hypertension): Onset Date: 12/30/16 Code(s): I10 - Essential (primary) hypertension Status: Acute Assessment and Plan: Fair control. Continue current medical therapy. (4) ORIANA on CPAP: Code(s): G47.33 - Obstructive sleep apnea (adult) (pediatric); Z99.89 - Dependence on other enabling machines and devices Status: Acute Assessment and Plan: CPAP. (5) Dyslipidemia: Code(s): E78.5 - Hyperlipidemia, unspecified Status: Acute Assessment and Plan: As above, add atorvastatin 40 mg at bedtime at discharge. (6) ESRD (end stage renal disease) on dialysis: Code(s): N18.6 - End stage renal disease; Z99.2 - Dependence on renal dialysis Status: Acute Assessment and Plan: Hemodialysis per Nephrology. (7) Abnormal dobutamine stress echo: Code(s): R94.39 - Abnormal result of other cardiovascular function study Status: Acute Assessment and Plan: [facility] recommended with severe multivessel coronary disease. DS: Summary Hospital Course Reason for hospitalization: Outpatient coronary angiography Hospital Course: Patient is a very pleasant 60-year-old male admitted as an outpatient with abnormal stress testing concerning angina and underwent coronary angiography by Dr. Albarran 10/09/2020 which revealed multivessel coronary artery disease with recommendations for CABG as an outpatient. Due to IVUS evaluation and bivalirudin use delayed removal of his catheterization access sheath until his ACT was appropriately low enough necessitated observation overnight as patient is at elevated risk for bleeding complications. Patient was observed overnight without complication no bleeding, chest pain or shortness of breath. As pre arranged after discussions with Dr. Albarran, patient will be discharged home to follow-up with Cardiothoracic surgery as an outpatient for CABG. There are no right groin access complications overnight the patient was deemed stable for discharge home. Counseled on post catheterization precautions to reduce bleeding risk. Patient verbalized understanding and agreed to comply. Status at Discharge Cognitive/behavioral status at discharge: Competent Functional status at discharge: independent ambulation Overall status at discharge: patient is back to baseline Time Spent with Patient Time attestation: Total time spent providing and/or coordinating discharge services: 37 minutes Time spent: Greater than 30 minutes Specific discharge activities: See discharge instructions post fahad
[2020-10-10] MEDS: ATORVASTATIN 40 MG TABLET PO (10:28)
== END 2020-10-10 11:05 | disposition home or self-care (01) ==
LOC: ANHCATHLAB 15:29 → ANHIMU 21:32
PROVIDERS: PCP Family Medicine; Visit Provider Internal Medicine Cardiovascular Disease
PROC: 4A023N7 Measurement of Cardiac Sampling and Pressure, Left Heart, Percutaneous Approach (ICD-10-PCS; CPT 93452; principal; 2020-10-09 11:00)
PROC: 4A033BC Measurement of Arterial Pressure, Coronary, Percutaneous Approach (ICD-10-PCS; CPT 93571; 2020-10-09 11:00)
DX: I25.118 Atherosclerotic heart disease of native coronary artery with other forms of angina pectoris (principal); T82.855A Stenosis of coronary artery stent, initial encounter; R94.39 Abnormal result of other cardiovascular function study; R07.9 Chest pain, unspecified; R06.02 Shortness of breath; I12.0 Hypertensive chronic kidney disease with stage 5 chronic kidney disease or end stage renal disease; E11.22 Type 2 diabetes mellitus with diabetic chronic kidney disease; N18.6 End stage renal disease; Z99.2 Dependence on renal dialysis; E78.5 Hyperlipidemia, unspecified; K21.9 Gastro-esophageal reflux disease without esophagitis; G47.33 Obstructive sleep apnea (adult) (pediatric); Y83.8 Other surgical procedures as the cause of abnormal reaction of the patient, or of later complication, without mention of misadventure at the time of the procedure; Z79.4 Long term (current) use of insulin; Z79.82 Long term (current) use of aspirin; Z79.51 Long term (current) use of inhaled steroids; Z79.891 Long term (current) use of opiate analgesic; Z87.891 Personal history of nicotine dependence
CPT/HCPCS: 82948; 92978; 93458; 93571; 94640; A9270; C1753; C1769; C1887; C1894; J0583; J1644; J2250; J2405; J3010; J7040

== ENCOUNTER 2021-01-02 08:50 | Outpatient (CLI) | payer OTHER, MEDICARE, SELFPAY ==
--- NOTE | ~2021-01-02 | XR_ITS ---
EXAMINATION: XR chest 2V DATE: 01/02/2021 09:15 INDICATION: Right-sided chest pain TECHNIQUE: PA and lateral views of the chest are obtained. COMPARISON: 06/13/2019 FINDINGS: There are small pleural effusions. Minimal airspace opacities are present in the lung bases . There is no pneumothorax. Cardiomegaly is noted. There are changes of interval cardiac surgery. The re is moderate thoracic spondylosis. IMPRESSION: 1. Small pleural effusions with bibasilar airspace opacities, atelectasis versus pneumonia. 2. Cardiomegaly. 3. Interval cardiac surgery. Reviewed, dictated and finalized at location B. IMPRESSION: 1. Small pleural effusions with bibasilar airspace opacities, atelectasis versu s pneumonia. 2. Cardiomegaly. 3. Interval cardiac surgery.
--- NOTE | ~2021-01-02 | US_ITS ---
EXAMINATION: US right upper quadrant DATE: 01/02/2021 09:22 INDICATION: Right upper quadrant pain TECHNIQUE: Multiple grayscale and Doppler ultrasound images of the abdomen were obtained. COMPARISON: None available FINDINGS: Bowel gas obscures visualization of the pancreas. The liver is normal with normal echogenic ity and echotexture. No surface nodularity. Normal hepatopetal flow in the main portal vein. The gall bladder is normal with no abnormal wall thickening, pericholecystic fluid or stones. The normal commo n bile duct measures 4 mm. There was no sonographic Noriega sign. IMPRESSION: 1. Normal sonographic study of the gallbladder. Reviewed, dictated and finalized at location B.
--- NOTE | 2021-01-02 08:52 | ECG_ITS ---
Measurements Intervals [place] Rate: 73 P: 75 NM: 254 QRS: 86 QRSD: 141 T: 265 QT: 434 QTc: 479 Interpretive Statements SINUS RHYTHM WITH FIRST DEGREE AV BLOCK RIGHT BUNDLE BRANCH BLOCK MINIMAL Q WAVES- INF/LAT LEADS BASELINE WANDER- AVR, AVL, V6 ABNORMAL ECG Electronically Signed On 01-02-2021 10:31:28 CDT by Aidan Yadav D.O.
== END 2021-01-02 08:51 | disposition home or self-care (01) ==
PROVIDERS: PCP Family Medicine; Visit Provider Family Medicine
DX: R10.11 Right upper quadrant pain (principal); R07.9 Chest pain, unspecified; J01.90 Acute sinusitis, unspecified; R06.00 Dyspnea, unspecified
CPT/HCPCS: 71046; 76705; 93005

== ENCOUNTER 2021-04-26 14:08 | Outpatient (CLI) | payer OTHER, SELFPAY ==
--- NOTE | ~2021-04-26 | XR_ITS ---
EXAMINATION: XR ankle RT min 3V INDICATION: Right ankle pain and swelling TECHNIQUE: Four views of the right ankle are obtained. COMPARISON: None available FINDINGS: There is soft tissue swelling of ankle. Bone alignment is normal. No fracture is identified . Calcified atherosclerosis is noted. IMPRESSION: 1. Ankle soft tissue swelling without acute osseous abnormality. Reviewed, dictated and finalized at location F. GER UTILIZATION REVIEW
== END 2021-04-26 14:09 | disposition home or self-care (01) ==
LOC: CHSIMG 14:11
PROVIDERS: PCP Nurse Practitioner Family; Visit Provider Nurse Practitioner Family
DX: M25.571 Pain in right ankle and joints of right foot (principal)
CPT/HCPCS: 73610

== ENCOUNTER 2022-08-18 13:33 | Inpatient (IN) | payer MEDICARE, OTHER, SELFPAY ==
[2022-08-18] VITALS (15 sets, daily range): BP systolic 173–237; BP diastolic 57–115; PULSE 60–96; RESP 18–96; TEMP 36–37.2; O2SAT 20–96
--- NOTE | ~2022-08-18 | XR_ITS ---
XR chest 2V 08/18/2022 16:40 Indication: Shortness of breath Procedure: 2 view chest Comparison: Comparison to multiple prior studies sequentially, with oldest reviewed study dated 01/01. Findings: Status post median sternotomy for CABG. Cardiomegaly. Pulmonary edema. Small pleural effusi ons. No pneumothorax. Impression: 1: Cardiomegaly with pulmonary edema. Reviewed, dictated and finalized at location [] Impression: 1: Cardiomegaly with pulmonary edema.
--- NOTE | ~2022-08-18 | XR_ITS ---
EXAMINATION: XR chest 2V DATE: 08/21/2022 08:28 INDICATION: Cough and congestive heart failure. TECHNIQUE: PA and lateral views of the chest were obtained. COMPARISON: Chest radiograph dated 08/18/2022 FINDINGS: Decreased opacities in the bilateral lower lung zones. Small bilateral pleural effusions. Cardiomegal y. Median sternotomy wires and mediastinal surgical clips are seen, likely from prior coronary artery bypass grafting. Likely prior distal right clavicle resection. IMPRESSION: 1. Small bilateral pleural effusions and decreased mild opacities in bilateral lower lung zones most likely minimal pulmonary edema and atelectasis versus less likely pneumonia. 2. Cardiomegaly. Reviewed, dictated and finalized at location A. IMPRESSION: 1. Small bilateral pleural effusions and decreased mild opacities in bilateral lower lung zones most likely minimal pulmonary edema and atelectasis versus les s likely pneumonia. 2. Cardiomegaly.
--- NOTE | 2022-08-18 15:06 | ECG_ITS ---
Measurements Intervals [place] Rate: 60 P: 86 NC: 277 QRS: -11 QRSD: 143 T: 21 QT: 448 QTc: 448 Interpretive Statements SINUS RHYTHM WITH FIRST DEGREE AV BLOCK RIGHT BUNDLE BRANCH BLOCK T-WAVE ABNORMALITY CONSIDER HYPERKALEMIA ABNORMAL ECG COMPARED TO ECG 01/02/2021 09:05:11 NC INTERVAL IS LONGER AND T-WAVE CHANGES SUGGEST HYPERKALEMIA Electronically Signed On 08-18-2022 16:11:29 CDT by Gamaliel Saldana M.D.
[2022-08-18 16:29] LABS: Basophils Percent Auto 0.5 % (0.2-1.2); Eosinophils Absolute Auto 0.1 K/mm3 (0-0.3); Eosinophils Percent Auto 2.2 % (0-4.4); Hematocrit 32.6 % (42.0-52.0); Hemoglobin 11.1 g/dL (14.0-18.0); Immature Granulocyte Absolute 0.03 K/mm3 (0.00-0.031); Immature Granulocyte Percent A 0.5 % (0-0.5); Mean Corpuscular Hemoglobin 34.9 pg (26-34); Mean Corpuscular Volume 102.5 fl (80-100); Monocytes Absolute Auto 0.5 K/mm3 (0.1-0.6); Monocytes Percent Auto 8.5 % (2.6-8.5); Neutrophils Absolute Auto 3.9 K/mm3 (1.3-6.7); Neutrophils Percent Auto 66.3 % (45.5-73.1); Platelet Count Result 106 k/mm3 (150-375); Red Blood Count 3.18 M/mm3 (4.6-6.20); Red Cell Distribution Width 14.5 % (11.5-14.5); White Blood Count 5.9 K/mm3 (4.5-10.0)
[2022-08-18 16:35] LABS: Partial Thromboplastin Time 21.9 SECONDS (22.3-36.8); Prothrombin Time 13.3 Seconds (11.1-14.7)
[2022-08-18 16:48] LABS: NT Pro B Type Natriuretic Pept 23600 pg/mL (19.9-100)
[2022-08-18 17:32] LABS: Alanine Aminotransferase 51 U/L (6-50); Albumin Level 4.5 g/dL (3.5-5.1); Alkaline Phosphatase 144 U/L (38-126); Anion Gap 13 mmol/L (8-16); Aspartate Amino Transferase 34 U/L (17-59); Bilirubin,Total 0.6 mg/dL (0.2-1.3); Blood Urea Nitrogen 82 mg/dL (9-20); Calcium 8.8 mg/dL (8.4-10.2); Carbon Dioxide 25 mmol/L (22-30); Chloride 99 mmol/L (98-107); Estimated CRCL calculation 9 ml/min; Estimated Glomerular Filt Rate 4; Glucose 74 mg/dL (65-110); Potassium 7.1 mmol/L (3.4-5.0); Sodium 137 mmol/L (137-145)
--- NOTE | 2022-08-18 17:48 | ED.SOB ---
HPI - SOB/Dyspnea General Chief Complaint: Shortness of Breath/Dyspnea Stated Complaint: cant breath Time Seen by Provider: 08/18/22 15:04 History of Present Illness HPI Narrative: Patient is a 62-year-old male who presents ER with shortness of breath. Reports began yesterday evening. No chest pain or pressure. No runny nose or sore throat or productive cough. Has history of end-stage renal disease and is due for dialysis today. Reports no change in his lower extremity edema. His network intern is Dr. Kay at [facility]. Reports compliance with home medication patient. Related Data Home Medications Medication Instructions Recorded Confirmed aspirin 81 mg tablet,delayed 81 mg PO DAILY 03/16/19 07/29/22 release (Adult Low Dose Aspirin) multivitamin 1 tablet PO DAILY 03/17/19 07/29/22 sucroferric oxyhydroxide 500 mg 500 mg PO TID 02/03/20 07/29/22 chewable tablet (Velphoro) cholecalciferol (vitamin D3) 25 25 mcg PO DAILY 10/09/20 07/29/22 mcg (1,000 unit) tablet (Vitamin D3) sevelamer carbonate 800 mg tablet 2,400 mg PO TID 10/09/20 07/29/22 pregabalin 150 mg capsule 150 mg PO BID 12/12/21 07/29/22 levothyroxine 100 mcg capsule 100 mcg PO DAILY 06/05/22 07/29/22 mecobalamin (vitamin B12) 1,000 1,000 mcg PO DAILY 06/05/22 07/29/22 mcg chewable tablet pyridoxine (vitamin B6) 100 mg 100 mg PO DAILY 06/05/22 07/29/22 tablet vitamin B complex and vitamin C 1 cap PO DAILY 06/05/22 07/29/22 no.20-folic acid 1 mg capsule (Triphrocaps) Allergies Allergy/AdvReac Type Severity Reaction Status Date / Time No Known Allergies Allergy Verified 08/18/22 15:07 Review of Systems Review of Systems: All systems reviewed & are unremarkable except as noted in HPI and below Constitutional: Constitutional: Denies chills, Reports fatigue and Denies fever(s) ENT: Denies nasal congestion and Denies sore throat Cardiovascular: Cardiovascular: Denies chest pain, Denies rapid heart rate and Denies radiating jaw, neck or arm pain Respiratory: Respiratory: Denies cough, Reports dyspnea and Denies wheezing Gastrointestinal: Gastrointestinal: Denies abdominal pain, Denies nausea and Denies vomiting Integumentary/Breasts: Skin/Breast: Denies erythema and Denies rash PMFSH Past Medical History Medical History Acute sinusitis Acute upper respiratory infection, unspecified Back pain Chest pain in adult Dupuytren contracture Dyspnea Edema of both legs GERD (gastroesophageal reflux disease) Headache HTN (hypertension) (12/30/16) Hyperlipidemia (12/30/16) Nausea and vomiting Obstructive sleep apnea (09/10/17) ORIANA on CPAP Right upper quadrant abdominal pain Shortness of breath (09/10/17) Type 2 diabetes mellitus (12/30/16) Surgical History Surgical History History of elbow surgery History of heart surgery Open heart surgery History of knee surgery History of shoulder surgery History of surgery on arm Family History Family History Father Diabetes mellitus Mother Diabetes mellitus Mother Family history of type 2 diabetes mellitus Father Family history of coronary artery disease Family history of type 2 diabetes mellitus Brother Family history of type 2 diabetes mellitus Cerebrovascular accident Social History Social History Smoking packs per day: 2 Smoking cigarettes per day: 40.0 Years smoked: 50 Smoking pack-years: 100.00 Smoking status: Former smoker Second hand tobacco smoke exposure: Yes Smoking end date: 03/11/17 Alcohol intake: former Substance use: never Substance use type: does not use Living arrangements: with family Additional living arrangements comments: LIVES W/ , SHAHNAZ Gender identity (if verb
[2022-08-18] MEDS: INSULIN HUMAN REGULAR (*BKC) 100 UNITS/ML 10 UNITS IV PUSH (18:07)
[2022-08-18] MEDS: SODIUM ZIRCONIUM CYCLOSILICATE 10 GM POWD.PACK PO (18:09)
[2022-08-18] MEDS: DEXTROSE 50% 25 GM/50 ML SYRINGE IV PUSH (18:10)
[2022-08-18] MEDS: CALCIUM GLUCONATE 1,000 MG/10 ML VIAL 1000 MG IV PUSH (18:10)
[2022-08-18] MEDS: MORPHINE SULFATE (*CRX) 4 MG/ML INJ IV PUSH (19:07)
[2022-08-18 19:22] LABS: Hepatitis B Surface Antigen Negative (Negative)
[2022-08-18 19:40] LABS: Hepatitis B Surface Anti Res Negative
--- NOTE | 2022-08-18 19:43 | PM.IMHP ---
H&P: HPI History of Present Illness Date/Time: 08/18/22 19:43 Chief Complaint: sob Narrative: XR chest 2V 08/18/2022 16:40 Indication: Shortness of breath Procedure: 2 view chest Comparison: Comparison to multiple prior studies sequentially, with oldest reviewed study dated? 01/22/2015. Findings: Status post median sternotomy for CABG. Cardiomegaly. Pulmonary edema. Small pleural effusions. No pneumothorax. Impression: 1: Cardiomegaly with pulmonary edema. [facility] Past Medical History Medical History Acute sinusitis Acute upper respiratory infection, unspecified Back pain Chest pain in adult Dupuytren contracture Dyspnea Edema of both legs GERD (gastroesophageal reflux disease) Headache HTN (hypertension) (12/30/16) Hyperlipidemia (12/30/16) Nausea and vomiting Obstructive sleep apnea (09/10/17) ORIANA on CPAP Right upper quadrant abdominal pain Shortness of breath (09/10/17) Type 2 diabetes mellitus (12/30/16) Surgical History Surgical History History of elbow surgery History of heart surgery Open heart surgery History of knee surgery History of shoulder surgery History of surgery on arm Family History Family History Father Diabetes mellitus Mother Diabetes mellitus Mother Family history of type 2 diabetes mellitus Father Family history of coronary artery disease Family history of type 2 diabetes mellitus Brother Family history of type 2 diabetes mellitus Cerebrovascular accident Social History Social History Smoking packs per day: 2 Smoking cigarettes per day: 40.0 Years smoked: 50 Smoking pack-years: 100.00 Smoking status: Former smoker Second hand tobacco smoke exposure: Yes Smoking end date: 03/11/17 Alcohol intake: former Substance use: never Substance use type: does not use Living arrangements: with family Additional living arrangements comments: LIVES W/ , SHAHNAZ Gender identity (if verbalized by the patient): Male Spiritual care concerns: No Meds Home Medications and Allergies Home Medications Medication Instructions Recorded Confirmed Type aspirin 81 mg tablet,delayed 81 mg PO DAILY 03/16/19 07/29/22 History release (Adult Low Dose Aspirin) multivitamin 1 tablet PO DAILY 03/17/19 07/29/22 History sucroferric oxyhydroxide 500 mg 500 mg PO TID 02/03/20 07/29/22 History chewable tablet (Velphoro) cholecalciferol (vitamin D3) 25 25 mcg PO DAILY 10/09/20 07/29/22 History mcg (1,000 unit) tablet (Vitamin D3) sevelamer carbonate 800 mg tablet 2,400 mg PO TID 10/09/20 07/29/22 History pregabalin 150 mg capsule 150 mg PO BID 12/12/21 07/29/22 History levothyroxine 100 mcg capsule 100 mcg PO DAILY 06/05/22 07/29/22 History mecobalamin (vitamin B12) 1,000 1,000 mcg PO DAILY 06/05/22 07/29/22 History mcg chewable tablet pyridoxine (vitamin B6) 100 mg 100 mg PO DAILY 06/05/22 07/29/22 History tablet vitamin B complex and vitamin C 1 cap PO DAILY 06/05/22 07/29/22 History no.20-folic acid 1 mg capsule (Triphrocaps) atorvastatin 40 mg tablet See Rx Instructions .Route 07/01/22 Rx .COMPLEX #30 tabs losartan 50 mg tablet 50 mg PO DAILY #90 tabs 07/01/22 07/29/22 Rx metoprolol tartrate 25 mg tablet See Rx Instructions .Route 07/23/22 07/29/22 Rx .COMPLEX #60 tabs nifedipine 30 mg tablet,extended 30 mg PO DAILY #90 tabs 07/23/22 07/29/22 Rx release clopidogrel 75 mg tablet See Rx Instructions .Route 07/24/22 07/29/22 Rx .COMPLEX #30 tabs hydroxyzine HCl 25 mg tablet 25 mg PO QHS PRN insomnia #30 tabs 07/31/22 Rx sertraline 25 mg tablet 25 mg PO DAILY #30 tabs 08/01/22 Rx Allergies Allergy/AdvReac Type Severity Reaction Status Date / Time No Known All
[2022-08-18] MEDS: ACETAMINOPHEN 325 MG TABLET 650 MG PO (22:13)
[2022-08-19] VITALS (20 sets, daily range): BP systolic 165–206; BP diastolic 55–84; PULSE 67–89; RESP 16–20; TEMP 36.3–36.7; O2SAT 92–100; BMI 39.4
--- NOTE | 2022-08-19 01:26 | ADMGEN ---
This patient, Ramone Coleman, was admitted to IMU Room 210-01. Patient/family oriented to hospital policies and general routines including ID bracelet, bed and alarms, visiting hours, pain management, procedures, bathroom and other care routines, personal items, smoking policy, room service/diet, and visiting hours. Information on how to activate the Rapid Response Team has been discussed. Patient/Family are encouraged to report perceived risks to care and to ask questions if they do not understand what they are told or what they should do.
[2022-08-19] MEDS: MORPHINE SULFATE (*CRX) 4 MG/ML INJ IV PUSH (01:57)
--- NOTE | 2022-08-19 05:14 | PC.NURSE ---
BP 206/75 Dr Cordoba informed and orders received.
[2022-08-19] MEDS: NIFEdipine 30 MG TAB.ER.24 60 MG PO ×2 (05:33→18:11)
[2022-08-19] MEDS: LEVOTHYROXINE SODIUM 100 MCG TABLET PO (05:48)
[2022-08-19] MEDS: SEVELAMER CARBONATE 800 MG TABLET 2400 MG PO ×3 (08:30→16:53)
[2022-08-19] MEDS: CHOLECALCIFEROL 1,000 UNITS TABLET 1000 UNITS PO (08:31)
[2022-08-19] MEDS: CLOPIDOGREL BISULFATE 75 MG TABLET PO (08:31)
[2022-08-19] MEDS: METOPROLOL TARTRATE 25 MG TABLET PO ×2 (08:31→20:58)
[2022-08-19] MEDS: ATORVASTATIN 40 MG TABLET PO (08:31)
[2022-08-19] MEDS: LOSARTAN POTASSIUM 50 MG TABLET PO (08:31)
[2022-08-19] MEDS: PREGABALIN (*CRX) 75 MG CAPSULE 150 MG PO ×2 (08:31→16:53)
[2022-08-19] MEDS: SERTRALINE HCL 25 MG TABLET PO (08:31)
[2022-08-19] MEDS: MULTIVITAMINS THERAPEUTIC TAB (*BKC) 1 TABLET PO (08:31)
[2022-08-19] MEDS: ASPIRIN 81 MG ENTERIC TABLET PO (08:31)
[2022-08-19] MEDS: hydrALAZINE HCL 20 MG/ML VIAL 10 MG IV PUSH (12:52)
[2022-08-19 12:59] LABS: Hematocrit 32.3 % (42.0-52.0); Hemoglobin 10.7 g/dL (14.0-18.0); Immature Platelet Fraction Pct 2.2 % (0.9-11.2); Mean Corpuscular HGB Conc 33.1 g/dl (32-36); Mean Corpuscular Hemoglobin 34.4 pg (26-34); Mean Corpuscular Volume 103.9 fl (80-100); Mean Platelet Volume 9.7 fl (7.4-10.4); Platelet Count Result 102 k/mm3 (150-375); Red Blood Count 3.11 M/mm3 (4.6-6.20); Red Cell Distribution Width 14.1 % (11.5-14.5); White Blood Count 4.3 K/mm3 (4.5-10.0)
[2022-08-19 13:11] LABS: Alanine Aminotransferase 40 U/L (6-50); Albumin Level 4.1 g/dL (3.5-5.1); Alkaline Phosphatase 105 U/L (38-126); Anion Gap 9 mmol/L (8-16); Aspartate Amino Transferase 27 U/L (17-59); Bilirubin,Total 0.8 mg/dL (0.2-1.3); Blood Urea Nitrogen 55 mg/dL (9-20); Calcium 8.8 mg/dL (8.4-10.2); Carbon Dioxide 37 mmol/L (22-30); Chloride 91 mmol/L (98-107); Estimated CRCL calculation 11 ml/min; Estimated Glomerular Filt Rate 6; Glucose 107 mg/dL (65-110); Potassium 5.5 mmol/L (3.4-5.0); Sodium 137 mmol/L (137-145)
[2022-08-19] MEDS: ACETAMINOPHEN 325 MG TABLET 650 MG PO (14:29)
[2022-08-19] MEDS: FUROSEMIDE INJ 40 MG/4 ML VIAL IV PUSH (16:53)
[2022-08-19] MEDS: HYDROcodone/acetaminophen (*CRX) 5-325 MG TABLET 1 TAB PO (16:56)
--- NOTE | 2022-08-19 17:13 | PM.CNNEP ---
Assessment and Plan Assessment and plan (1) ESRD (end stage renal disease) on dialysis: Code(s): N18.6 - End stage renal disease; Z99.2 - Dependence on renal dialysis Status: Acute Assessment and Plan: the patient has end-stage renal disease. last evening he came in with hyperkalemia and volume overload. He had dialysis. The potassium is down to 5.5. His volume status is better still not to his dry weight probably. Will get another treatment tomorrow morning to get the rest of the fluid off. (2) Volume overload: Code(s): E87.70 - Fluid overload, unspecified Status: Acute Assessment and Plan: Patient had volume overload. Possibly he drink a lot of water however says he does not drink all that much fluid, more over the weekends though. His blood pressure was also high which may have contributed to his shortness of breath. Blood pressure is still high this afternoon. Will work to get this down which will probably help make him feel better. (3) ORIANA on CPAP: Code(s): G47.33 - Obstructive sleep apnea (adult) (pediatric); Z99.89 - Dependence on other enabling machines and devices Status: Acute Assessment and Plan: He uses a CPAP machine at home (4) HTN (hypertension): Onset Date: 12/30/16 Code(s): I10 - Essential (primary) hypertension Status: Acute Assessment and Plan: his blood pressure is high. At home he is on losartan 50 metoprolol 25 nifedipine 60. He got a dose of all 3 of those this morning. Will give an extra dose of nifedipine now and also some clonidine to bring his blood pressure down. he is on metoprolol but since clonidine is only as needed the withdrawal issue does not apply. (5) CAD in [place] artery: Code(s): I25.10 - Atherosclerotic heart disease of [place] coronary artery without angina pectoris Status: Acute Assessment and Plan: No chest pain. (6) Hyperlipidemia: Onset Date: 12/30/16 Code(s): E78.5 - Hyperlipidemia, unspecified Status: Acute Assessment and Plan: He is on atorvastatin (7) Erythropoietin deficiency anemia: Code(s): D63.1 - Anemia in chronic kidney disease Status: Acute Assessment and Plan: hemoglobin is 10.7. Once his blood pressure is down we can give him some EPO (8) Renal osteodystrophy: Code(s): N25.0 - Renal osteodystrophy Status: Acute Assessment and Plan: will check a phosphorus in the morning (9) Acute hyperkalemia: Code(s): E87.5 - Hyperkalemia Status: Acute Assessment and Plan: potassium is marginally high now. Will give a dose of lokelma History of Present Illness Reason for Consult Consult date: 08/19/22 Chief Complaint Chief complaint: ESRD w Volume Overload/Hyperkalemia/Hypoxia History of Present Illness Narrative: Ramone is a very pleasant 62-year-old gentleman who has multiple medical problems including end-stage renal disease on dialysis for about 4 and half years, hypertension, diabetes, hyperlipidemia, coronary disease status post bypass in January of 2021 as a result of an abnormal stress test, sleep apnea on a CPAP mask. The patient went to dialysis on Thursday and got down to his dry weight. On Thursday night the patient woke up in the wee hours and had shortness of breath. This continued to worsen yesterday during the day and so came to the ER yesterday afternoon. He was very swollen and short of breath. He had dialysis yesterday evening and then took 3L of fluid off. Today he is much better than he was yesterday. He still has some swelling and some shortness of breath however he is on oxygen and his O2 sats are good. He does get more short of breath when he lays down flat. He does not have any chest pain. He has had some chest pain from his sternal wounds from his bypass off and on ever since the bypass and he had some of this but nothing new.
[2022-08-19] MEDS: SODIUM ZIRCONIUM CYCLOSILICATE 10 GM POWD.PACK PO (18:11)
[2022-08-19] MEDS: cloNIDine HCL 0.1 MG TABLET PO ×2 (18:11→23:29)
--- NOTE | 2022-08-19 21:21 | PM.IMPN ---
Progress Note: A&P Assessment and Plan (1) Hypertensive emergency: Code(s): I16.1 - Hypertensive emergency Status: Acute Assessment and Plan: Resolving, he always runs high, likely needs better control outpatient, will assess at discharge (2) Acute hyperkalemia: Code(s): E87.5 - Hyperkalemia Status: Acute Assessment and Plan: Being treated with dialysis appreciate nephrology consultation (3) ESRD (end stage renal disease) on dialysis: Code(s): N18.6 - End stage renal disease; Z99.2 - Dependence on renal dialysis Status: Acute Assessment and Plan: As above (4) GERD (gastroesophageal reflux disease): Code(s): K21.9 - Gastro-esophageal reflux disease without esophagitis Status: Chronic (5) ORIANA on CPAP: Code(s): G47.33 - Obstructive sleep apnea (adult) (pediatric); Z99.89 - Dependence on other enabling machines and devices Status: Acute Assessment and Plan: Respiratory therapy consult for CPAP (6) HTN (hypertension): Onset Date: 12/30/16 Code(s): I10 - Essential (primary) hypertension Status: Acute (7) CHF (congestive heart failure), NYHA class IV: Code(s): I50.9 - Heart failure, unspecified Status: Acute Assessment and Plan: Managed with dialysis Plan DVT prophylaxis with SCDs GI prophylaxis not indicated Code status full code Subjective Date/time seen: 08/19/22 21:21 Interval history: 62-year-old male here with shortness of breath after missing dialysis as well as hyperkalemia after skipping his binders over the weekend and eating lots of potatoes, being treated with dialysis. No overnight events noted. No chest pain. Shortness of breath improving after dialysis. No fevers or chills. Review of Systems Review of Systems: 12 point review of systems was assessed and was negative except as noted in the HPI Exam Narrative: General: No acute distress, alert and oriented per baseline HEENT: Atraumatic, normocephalic, mucous membranes moist CV: Regular rate and rhythm, S1, S2 Lungs: Clear to auscultation bilaterally, no rales or crackles noted, no wheezes, good air entry Abdomen: Soft, nontender, nondistended Extremities: Normal to inspection Skin: No rashes noted, no lesions or wounds seen Psych: Euthymic, normal affect Objective Data Vital Signs Vital Signs: Vital Signs - 24 hr 08/18/22 21:40 08/18/22 22:00 08/18/22 22:20 Temperature Pulse Rate 89 90 85 Respiratory Rate Blood Pressure 199/92 H 195/87 H 189/84 H Pulse Oximetry Oxygen Delivery Oxygen Flow Rate 08/18/22 22:40 08/18/22 23:00 08/18/22 23:20 Temperature Pulse Rate 86 86 86 Respiratory Rate Blood Pressure 188/85 H 182/89 H 184/81 H Pulse Oximetry Oxygen Delivery Oxygen Flow Rate 08/18/22 23:40 08/19/22 00:00 08/19/22 00:22 Temperature Pulse Rate 85 84 85 Respiratory Rate Blood Pressure 185/88 H 181/84 H 165/81 H Pulse Oximetry Oxygen Delivery Oxygen Flow Rate 08/19/22 00:24 08/19/22 01:19 08/19/22 02:00 Temperature 98.0 F 97.7 F Pulse Rate 84 79 87 Respiratory Rate 20 20 Blood Pressure 176/80 H 195/65 H Pulse Oximetry 92 100 Oxygen Delivery Oxygen Flow Rate 08/19/22 03:08 08/19/22 04:00 08/19/22 04:00 Temperature 97.8 F Pulse Rate 87 88 89 Respiratory Rate 20 Blood Pressure 206/71 H Pulse Oximetry 97 Oxygen Delivery Room Air Oxygen Flow Rate 08/19/22 05:49 08/19/22 08:00 08/19/22 08:47 Temperature 97.4 F L Pulse Rate 83 78 Respiratory Rate 16 Blood Pressure 188/65 H Pulse Oximetry 100 97 Oxygen Delivery Nasal Cannula Oxygen Flow Rate 2 08/19/22 08:00 08/19/22 08:00 08/19/22 12:00 Temperature 97.6 F Pulse Rate 79 71 Respiratory Rate 16 Blood Pressure 192/70 H Pulse Oximetry 95 98 Oxygen Delivery Nasal Cannula Oxygen Flow Rate 2 08/19/22 12:00
[2022-08-20] VITALS (31 sets, daily range): BP systolic 135–183; BP diastolic 62–89; PULSE 64–81; RESP 16–24; TEMP 36–37; O2SAT 92–99
--- NOTE | 2022-08-20 05:29 | PCRCNOTE ---
Pt declined the use of CPAP
[2022-08-20] MEDS: LEVOTHYROXINE SODIUM 100 MCG TABLET PO (05:41)
[2022-08-20 05:52] LABS: Albumin Level 4.4 g/dL (3.5-5.1); Anion Gap 10 mmol/L (8-16); Blood Urea Nitrogen 66 mg/dL (9-20); Calcium 9.2 mg/dL (8.4-10.2); Carbon Dioxide 33 mmol/L (22-30); Chloride 93 mmol/L (98-107); Estimated CRCL calculation 10 ml/min; Estimated Glomerular Filt Rate 5; Glucose 102 mg/dL (65-110); Phosphorus 8.5 mg/dL (2.5-4.5); Sodium 136 mmol/L (137-145)
[2022-08-20] MEDS: PREGABALIN (*CRX) 75 MG CAPSULE 150 MG PO ×2 (08:29→17:41)
[2022-08-20] MEDS: CLOPIDOGREL BISULFATE 75 MG TABLET PO (08:30)
[2022-08-20] MEDS: SERTRALINE HCL 25 MG TABLET PO (08:30)
[2022-08-20] MEDS: ATORVASTATIN 40 MG TABLET PO (08:30)
[2022-08-20] MEDS: ASPIRIN 81 MG ENTERIC TABLET PO (08:30)
[2022-08-20] MEDS: SEVELAMER CARBONATE 800 MG TABLET 2400 MG PO ×3 (08:30→17:41)
[2022-08-20] MEDS: MULTIVITAMINS THERAPEUTIC TAB (*BKC) 1 TABLET PO (08:30)
[2022-08-20] MEDS: CHOLECALCIFEROL 1,000 UNITS TABLET 1000 UNITS PO (08:30)
[2022-08-20] MEDS: HEPARIN SODIUM 1,000 UNITS/ML VIAL 500 UNITS IV PUSH (10:34)
[2022-08-20] MEDS: EPOETIN ALFA-EPBX 10,000 UNITS/ML VIAL 10000 UNITS IV PUSH (10:34)
--- NOTE | 2022-08-20 12:25 | P.PNNP_ITS ---
Progress Note: A&P Assessment and Plan (1) End stage renal disease: Code(s): N18.6 - End stage renal disease Status: Chronic Assessment and Plan: * HD today * continue M/W/F dialysis schedule while hospitalized * follow electrolytes, volume status, and clearance (2) Volume overload: Code(s): E87.70 - Fluid overload, unspecified Status: Acute Assessment and Plan: * as evidenced by imaging, exam, and elevated BP on admission * push fluid removal as tolerated to acheive euvolemia * follow volume and respiratory status (3) Hyperkalemia: Code(s): E87.5 - Hyperkalemia Status: Acute Assessment and Plan: * quite elevated on admission * better s/p dialysis on 08/18 but elevated again by AM labs today * adjust dialysis bath to compensate (4) HTN (hypertension): Onset Date: 12/30/16 Code(s): I10 - Essential (primary) hypertension Status: Chronic Assessment and Plan: * quite elevated on admission * hopefully combo of home medications and fluid removal should help * follow trend of hemodynamics (5) Anemia: Code(s): D64.9 - Anemia, unspecified Status: Chronic Assessment and Plan: * due to ESRD * H/H at goal * resume Epogen with HD once BP better Will continue to follow -- not opposed to discharge from renal perspective once respiratory/volume status optimized and otherwise medically stable. Subjective Date/time seen: 08/20/22 12:25 Interval history: Follow-up for end stage renal disease and hyperkalemia. Tolerating hemodialysis treatment at the time of my visit (seen on HD at ~ 12:15PM); breathing appears to be doing better [facility] potassium level was elevated again by AM labs; no acute distress voiced at this time; still requi ring supplemental oxygen along with a productive cough with brownish sputum. Exam Narrative: General: WD/WN male in NAD Heart: normal S1 and S2; no rub Lungs: clear anteriorly Abdomen: soft, nontender, nondistended, positive bowel sounds Extremities: no cyanosis or clubbing; trace - 1+ edema Skin: warm and dry Objective Data Vital Signs Vital Signs: Vital Signs Temp Pulse Resp BP Pulse Ox O2 Del Method O2 Flow Rate 08/20/22 11:40 77 173/82 H 08/20/22 11:20 77 174/87 H 08/20/22 10:00 78 08/20/22 08:00 66 08/20/22 11:00 74 183/89 H 08/20/22 10:40 73 179/86 H 08/20/22 10:20 74 162/63 H 08/20/22 10:00 72 146/81 H 08/20/22 09:40 69 161/67 H 08/20/22 09:20 67 180/74 H 08/20/22 09:09 65 174/75 H 08/20/22 09:09 2 08/20/22 08:54 98.6 F 65 22 H 174/79 H 92 08/20/22 08:00 96 Nasal Cannula 2 08/20/22 07:52 97.8 F 69 18 167/73 H 96 08/20/22 05:39 71 08/20/22 04:00 98.0 F 78 20 152/72 H 97 08/20/22 03:23 98 Nasal Cannula 2 08/20/22 03:22 70 08/20/22 02:00 70 08/19/22 23:58 97 Nasal Cannula 2 08/19/22 23:58 73 08/19/22 23:27 97.6 F 70 20 181/77 H 96 08/19/22 22:00 74 08/19/22 20:00 97 Nasal Cannula 2 08/19/22 20:00 76 08/19/22 20:58 76 08/19/22 20:00
--- NOTE | 2022-08-20 12:25 | PM.PNNEP ---
Progress Note: A&P Assessment and Plan (1) End stage renal disease: Code(s): N18.6 - End stage renal disease Status: Chronic Assessment and Plan: HD today continue M/W/F dialysis schedule while hospitalized follow electrolytes, volume status, and clearance (2) Volume overload: Code(s): E87.70 - Fluid overload, unspecified Status: Acute Assessment and Plan: as evidenced by imaging, exam, and elevated BP on admission push fluid removal as tolerated to acheive euvolemia follow volume and respiratory status (3) Hyperkalemia: Code(s): E87.5 - Hyperkalemia Status: Acute Assessment and Plan: quite elevated on admission better s/p dialysis on 08/18 but elevated again by AM labs today adjust dialysis bath to compensate (4) HTN (hypertension): Onset Date: 12/30/16 Code(s): I10 - Essential (primary) hypertension Status: Chronic Assessment and Plan: quite elevated on admission hopefully combo of home medications and fluid removal should help follow trend of hemodynamics (5) Anemia: Code(s): D64.9 - Anemia, unspecified Status: Chronic Assessment and Plan: due to ESRD H/H at goal resume Epogen with HD once BP better Will continue to follow -- not opposed to discharge from renal perspective once respiratory/volume status optimized and otherwise medically stable. Subjective Date/time seen: 08/20/22 12:25 Interval history: Follow-up for end stage renal disease and hyperkalemia. Tolerating hemodialysis treatment at the time of my visit (seen on HD at ~ 12:15PM); breathing appears to be doing better at[place] potassium level was elevated again by AM labs; no acute distress voiced at this time; still requiring supplemental oxygen along with a productive cough with brownish sputum. Exam Narrative: General: WD/WN male in NAD Heart: normal S1 and S2; no rub Lungs: clear anteriorly Abdomen: soft, nontender, nondistended, positive bowel sounds Extremities: no cyanosis or clubbing; trace - 1+ edema Skin: warm and dry Objective Data Vital Signs Vital Signs: Vital Signs Temp Pulse Resp BP Pulse Ox O2 Del Method O2 Flow Rate 08/20/22 11:40 77 173/82 H 08/20/22 11:20 77 174/87 H 08/20/22 10:00 78 08/20/22 08:00 66 06/21/23 11:00 74 183/89 H 08/20/22 10:40 73 179/86 H 08/20/22 10:20 74 162/63 H 08/20/22 10:00 72 146/81 H 08/20/22 09:40 69 161/67 H 08/20/22 09:20 67 180/74 H 08/20/22 09:09 65 174/75 H 08/20/22 09:09 2 08/20/22 08:54 98.6 F 65 22 H 174/79 H 92 08/20/22 08:00 96 Nasal Cannula 2 08/20/22 07:52 97.8 F 69 18 167/73 H 96 08/20/22 05:39 71 08/20/22 04:00 98.0 F 78 20 152/72 H 97 08/20/22 03:23 98 Nasal Cannula 2 08/20/22 03:22 70 08/20/22 02:00 70 08/19/22 23:58 97 Nasal Cannula 2 08/19/22 23:58 73 08/19/22 23:27 97.6 F 70 20 181/77 H 96 08/19/22 22:00 74 08/19/22 20:00 97 Nasal Cannula 2 08/19/22 20:00 76 08/19/22 20:58 76 08/19/22 20:00 97.6 F 70 20 177/65 H 97 08/19/22 18:00 70 08/19/22 16:00 97.3 F L 74 16 169/55 H 99 08/19/22 16:00 78 08/19/22 16:00 98 Nasal Cannula 2 08/19/22 14:00 72 Intake/Output Intake/Output: Intake & Output 08/17/22 08/18/22 08/19/22 08/20/22 23:59 23:59 23:59 23:59 Intake Total 820 490 Output Total 3700 Balance -2880 490 Meds/Results Medications: Active Medications Generic Name Dose Route Start Last Admin Trade Name Freq PRN Reason Stop Dose Admin Acetaminophen 650 mg 08/18/22 17:54 08/19/22 14:29 Acetaminophen 325 Mg Tablet PO 650 mg Q4H PRN Administration Mild Pain (1-3) or Fever Hydrocodone Bitart/Acetaminophen 1 tab 08/18/22 17:54
[2022-08-20] MEDS: METOPROLOL TARTRATE 25 MG TABLET PO ×2 (13:52→20:33)
[2022-08-20] MEDS: NIFEdipine 30 MG TAB.ER.24 60 MG PO (13:52)
[2022-08-20] MEDS: LOSARTAN POTASSIUM 50 MG TABLET PO (13:52)
--- NOTE | 2022-08-20 17:37 | PM.IMPN ---
Progress Note: A&P Assessment and Plan (1) Hypertensive emergency: Code(s): I16.1 - Hypertensive emergency Status: Acute Assessment and Plan: BP elevated at 237/89 on admission. BP usually reasonably well controlled. Since back on his medications, SBP running 130-160 now. Suspect poor compliance at home. May need better control as outpatient (2) Acute hyperkalemia: Code(s): E87.5 - Hyperkalemia Status: Acute Assessment and Plan: Potassium was 7.1 on admission. EKG showing T wave changes c/w hyperkalemia. He had HD with improvement. Potassium elevated again this morning at 6.0. HD again today. On a renal diet. Appreciate nephrology input (3) ESRD (end stage renal disease) on dialysis: Code(s): N18.6 - End stage renal disease; Z99.2 - Dependence on renal dialysis Status: Acute Assessment and Plan: As above (4) ORIANA on CPAP: Code(s): G47.33 - Obstructive sleep apnea (adult) (pediatric); Z99.89 - Dependence on other enabling machines and devices Status: Acute Assessment and Plan: AutoCPAP ordered but patietn not wearing device. (5) CHF (congestive heart failure), NYHA class IV: Code(s): I50.9 - Heart failure, unspecified Status: Acute Assessment and Plan: Still with peripheral edema. CXR showing pulmonary edema. BNP 19535. Manage fluid status with dialysis. Check sputum. Repeat CXR. Hold on abx for now Plan DVT prophylaxis with SCDs Code status full code Subjective Date/time seen: 08/20/22 17:37 Interval history: 62yo male with ESRD, ORIANA, HTN and DM here for shortness of breath after missing dialysis as well as hyperkalemia after skipping his binders over the weekend and eating lots of potatoes. Assuming care. Chart reviewed. Slept okay. No n/v. Eating okay. No CP (except for the chronic musculoskeletal chest pain from his CABG). Not on home O2. No CP. Has a cough productive of dark brown sputum. Exam Narrative: AF 97.1 162/62 65 16 97% 2L Gen - NARD sitting at the side of the bed feeding himself. Chest - CTA bilaterally, nml RR CV - RRR S1/S2. Tele showing PVCs Abd - Soft, NT/ND, Positive BS Ext - trace-1+ pedal edema with thrill/bruit Left UE. Neuro - Alert and oriented. Nonfocal exam. Psych - Nml mood and affect Skin - Warm and dry Objective Data Vital Signs Vital Signs: Vital Signs - 24 hr 08/19/22 18:00 08/19/22 20:00 08/19/22 20:58 Temperature 97.6 F Pulse Rate 70 70 76 Respiratory Rate 20 Blood Pressure 177/65 H Pulse Oximetry 97 Oxygen Delivery Oxygen Flow Rate 08/19/22 20:00 08/19/22 20:00 08/19/22 22:00 Temperature Pulse Rate 76 74 Respiratory Rate Blood Pressure Pulse Oximetry 97 Oxygen Delivery Nasal Cannula Oxygen Flow Rate 2 08/19/22 23:27 08/19/22 23:58 08/19/22 23:58 Temperature 97.6 F Pulse Rate 70 73 Respiratory Rate 20 Blood Pressure 181/77 H Pulse Oximetry 96 97 Oxygen Delivery Nasal Cannula Oxygen Flow Rate 2 08/20/22 02:00 08/20/22 03:22 08/20/22 03:23 Temperature Pulse Rate 70 70 Respiratory Rate Blood Pressure Pulse Oximetry 98 Oxygen Delivery Nasal Cannula Oxygen Flow Rate 2 08/20/22 04:00 08/20/22 05:39 08/20/22 07:52 Temperature 98.0 F 97.8 F Pulse Rate 78 71 69 Respiratory Rate 20 18 Blood Pressure 152/72 H 167/73 H Pulse Oximetry 97 96 Oxygen Delivery Oxygen Flow Rate 08/20/22 08:00 08/20/22 08:54 08/20/22 09:09 Temperature 98.6 F Pulse Rate 65 Respiratory Rate 22 H Blood Pressure 174/79 H Pulse Oximetry 96 92 Oxygen Delivery Nasal Cannula Oxygen Flow Rate 2 2 08/20/22 09:09 08/20/22 09:20 08/20/22 09:40 Temperature Pulse Rate 65 67 69 Respiratory Rate Blood Pressure 174/75 H 180/74 H 161/67 H Pulse Oximetry Oxygen Delivery Oxygen Flow Rate 08/20/22 10:00 08/20/22 10:20 08/20/22 10:40 Temperatu
[2022-08-20] MEDS: ACETAMINOPHEN 325 MG TABLET 650 MG PO (18:10)
[2022-08-21] VITALS (12 sets, daily range): BP systolic 148–161; BP diastolic 54–63; PULSE 58–90; RESP 16; TEMP 36.3–36.4; O2SAT 93–100
[2022-08-21 04:45] LABS: Basophils Percent Auto 0.7 % (0.2-1.2); Eosinophils Absolute Auto 0.2 K/mm3 (0-0.3); Eosinophils Percent Auto 3.6 % (0-4.4); Hemoglobin 10.7 g/dL (14.0-18.0); Immature Granulocyte Absolute 0.02 K/mm3 (0.00-0.031); Immature Granulocyte Percent A 0.4 % (0-0.5); Lymphocytes Absolute Auto 1.09 K/mm3 (0.9-3.2); Lymphocytes Percent Auto 24.5 % (18.3-44.2); Mean Corpuscular HGB Conc 33.4 g/dl (32-36); Mean Corpuscular Hemoglobin 34.3 pg (26-34); Mean Corpuscular Volume 102.6 fl (80-100); Mean Platelet Volume 9.7 fl (7.4-10.4); Monocytes Absolute Auto 0.5 K/mm3 (0.1-0.6); Monocytes Percent Auto 10.6 % (2.6-8.5); Neutrophils Absolute Auto 2.7 K/mm3 (1.3-6.7); Neutrophils Percent Auto 60.2 % (45.5-73.1); Platelet Count Result 106 k/mm3 (150-375); Red Blood Count 3.12 M/mm3 (4.6-6.20); Red Cell Distribution Width 13.8 % (11.5-14.5); White Blood Count 4.5 K/mm3 (4.5-10.0)
[2022-08-21 05:17] LABS: Albumin Level 3.8 g/dL (3.5-5.1); Anion Gap 9 mmol/L (8-16); Blood Urea Nitrogen 49 mg/dL (9-20); Calcium 9.2 mg/dL (8.4-10.2); Carbon Dioxide 33 mmol/L (22-30); Chloride 93 mmol/L (98-107); Estimated CRCL calculation 12 ml/min; Estimated Glomerular Filt Rate 6; Glucose 87 mg/dL (65-110); Magnesium 2.4 mg/dL (1.6-2.3); Phosphorus 7.6 mg/dL (2.5-4.5); Potassium 5.4 mmol/L (3.4-5.0); Sodium 135 mmol/L (137-145)
[2022-08-21] MEDS: LEVOTHYROXINE SODIUM 100 MCG TABLET PO (05:43)
[2022-08-21] MEDS: ASPIRIN 81 MG ENTERIC TABLET PO (08:31)
[2022-08-21] MEDS: MULTIVITAMINS THERAPEUTIC TAB (*BKC) 1 TABLET PO (08:31)
[2022-08-21] MEDS: LOSARTAN POTASSIUM 50 MG TABLET PO (08:31)
[2022-08-21] MEDS: CLOPIDOGREL BISULFATE 75 MG TABLET PO (08:31)
[2022-08-21] MEDS: CHOLECALCIFEROL 1,000 UNITS TABLET 1000 UNITS PO (08:32)
[2022-08-21] MEDS: ATORVASTATIN 40 MG TABLET PO (08:32)
[2022-08-21] MEDS: METOPROLOL TARTRATE 25 MG TABLET PO (08:32)
[2022-08-21] MEDS: SERTRALINE HCL 25 MG TABLET PO (08:33)
[2022-08-21] MEDS: PREGABALIN (*CRX) 75 MG CAPSULE 150 MG PO ×2 (08:33→16:32)
[2022-08-21] MEDS: NIFEdipine 30 MG TAB.ER.24 60 MG PO (08:34)
[2022-08-21] MEDS: SEVELAMER CARBONATE 800 MG TABLET 2400 MG PO ×3 (08:35→16:33)
[2022-08-21] MEDS: ACETAMINOPHEN 325 MG TABLET 650 MG PO (08:41)
--- NOTE | 2022-08-21 09:32 | P.CDI_ITS ---
CDI Query Clarification Request CHF noted in the assessment and plan. Patient received Lasix. Elevated BNP on 08/18/22 lab work. Pulmonary edema noted on chest xray from 08/18 & 08/21. Documented peripheral edema. Please specify type and acuity of heart failure if known. * Acute * Chronic * Acute on Chronic * Unknown * Systolic * Diastolic * Combined Systolic and Diastolic * Unknown
--- NOTE | 2022-08-21 12:24 | PM.PNNEP ---
Progress Note: A&P Assessment and Plan (1) End stage renal disease: Code(s): N18.6 - End stage renal disease Status: Chronic Assessment and Plan: HD tomorrow continue M/W/F dialysis schedule while hospitalized follow electrolytes, volume status, and clearance (2) Volume overload: Code(s): E87.70 - Fluid overload, unspecified Status: Acute Assessment and Plan: as evidenced by imaging, exam, and elevated BP on admission push fluid removal as tolerated to acheive euvolemia suspect may need his outpatient dry weight adjusted follow volume and respiratory status (3) Hyperkalemia: Code(s): E87.5 - Hyperkalemia Status: Acute Assessment and Plan: quite elevated on admission better s/p dialysis on 08/18 but continues to run on the higher side of normal adjust dialysis bath to compensate (4) HTN (hypertension): Onset Date: 12/30/16 Code(s): I10 - Essential (primary) hypertension Status: Chronic Assessment and Plan: quite elevated on admission better control with combo of home medications and fluid removal follow trend of hemodynamics (5) Anemia: Code(s): D64.9 - Anemia, unspecified Status: Chronic Assessment and Plan: due to ESRD H/H at goal resume Epogen with HD Will continue to follow -- not opposed to discharge from renal perspective once respiratory/volume status optimized and otherwise medically stable. Subjective Date/time seen: 08/21/22 12:24 Interval history: Follow-up for end stage renal disease and hyperkalemia. Tolerated hemodialysis treatment yesterday although fluid removal was stopped towards the end of treatment due to cramping; wean off supplemental oxygen with stable oxygen saturations on room air; no acute issues overnight or earlier this morning; breathing is better in comparison to admission. Exam Narrative: General: WD/WN male in NAD Heart: normal S1 and S2; no rub Lungs: clear anteriorly Abdomen: soft, nontender, nondistended, positive bowel sounds Extremities: no cyanosis or clubbing; trace edema Skin: warm and intact Objective Data Vital Signs Vital Signs: Vital Signs Temp Pulse Resp BP Pulse Ox O2 Del Method O2 Flow Rate 08/21/22 12:00 Room Air 08/21/22 12:00 67 08/21/22 12:00 97.4 F L 66 16 161/54 H 100 08/21/22 10:00 66 08/21/22 08:00 90 08/21/22 09:15 93 Room Air 08/21/22 08:50 100 Nasal Cannula 2 08/21/22 08:00 72 16 100 Nasal Cannula 2 08/21/22 08:32 82 08/21/22 08:00 97.4 F L 72 16 158/63 H 100 08/21/22 06:00 70 08/21/22 04:00 97.6 F 72 16 148/60 H 98 08/21/22 04:00 69 16 99 Nasal Cannula 2 08/21/22 04:00 69 08/21/22 02:00 69 08/21/22 00:00 74 08/21/22 00:00 74 16 99 Nasal Cannula 2 08/20/22 23:32 97.6 F 74 16 150/65 H 99 08/20/22 22:00 78 08/20/22 20:30 96 Nasal Cannula 2 08/20/22 20:00 73 08/20/22 20:33 76 08/20/22 20:00 72 16 98 Nasal Cannula 2 08/20/22 20:00 97.4 F L 72 16 153/68 H 98 08/20/22 18:00 68 08/20/22 16:00 64 08/20/22 16:00 97 Nasal Cannula 2 08/20/22 16:00 97.1 F L 65 16 162/62 H 97 Intake/Output Intake/Output: Intake & Output 08/18/22 08/19/22 08/20/22 08/21/22 23:59 23:59 23:59 23:59 Intake Total 933 385 8430 Output Total 3700 3100 0 Balance -2880 -2370 1580 Meds/Results Medications: Active Medications Generic Name Dose Route Start Last Admin Trade Name Freq PRN Reason Stop Dose Admin Acetaminophen 650 mg 08/18/22 17:54 08/21/22 08:41 Acetaminophen 325 Mg Tablet PO 650 mg Q4H PRN Administration Mild Pain (1-3) or Fever Hydrocodone Bitart/Acetaminophen 1 tab 08/18/22 17:54 08/19/22 16:56 Hydrocodone/Acetaminophen (*Crx) 5-325 Mg Tablet PO 1 t
[2022-08-21 13:13] LABS: Hepatitis B Core Ab Total Nonreactive (Nonreactive)
--- NOTE | 2022-08-21 15:58 | PM.DS ---
DS: Admitting Diagnosis Discharge Date 08/21/22 Admitting Diagnosis Shortness of breath DS: Discharge Diagnosis Discharge Diagnosis (1) Hypertensive emergency: Code(s): I16.1 - Hypertensive emergency Status: Acute (2) Acute hyperkalemia: Code(s): E87.5 - Hyperkalemia Status: Acute (3) ESRD (end stage renal disease) on dialysis: Code(s): N18.6 - End stage renal disease; Z99.2 - Dependence on renal dialysis Status: Acute (4) ORIANA on CPAP: Code(s): G47.33 - Obstructive sleep apnea (adult) (pediatric); Z99.89 - Dependence on other enabling machines and devices Status: Acute (5) CHF (congestive heart failure), NYHA class IV: Code(s): I50.9 - Heart failure, unspecified Status: Acute (6) Volume overload: Code(s): E87.70 - Fluid overload, unspecified Status: Acute (7) Anemia: Code(s): D64.9 - Anemia, unspecified Status: Chronic (8) Thrombocytopenia: Code(s): D69.6 - Thrombocytopenia, unspecified Status: Acute DS: Summary Hospital Course Reason for hospitalization: 62yo male with ESRD, ORIANA, HTN and DM here for shortness of breath. Please see H&P for details. Hospital Course: Patient presents with complaints of SOB and found to have elevated BP at 237/89. BP usually reasonably well controlled. Potassium was 7.1 on admission. EKG showing T wave changes c/w hyperkalemia. He was treated appropriately in the ED. He was resumed on his home medications and his SBP improved 130-160 now. Poor compliance at home? He denies missing HD or his medications. He does admit to dietary indiscretion. May need better BP control as outpatient. He had HD with improvement of his potassium and fluid status. He was weaned to room air. He does have ORIANA but refused NIV here. He was noted to have low plt count to 106K but stable on repeat. Last year, plt count slightly low but no other labs to compare. Also noted to be mildly anemic with Hgb 10-11 range and stable. Tyronza related to his ESRD. Probably with Acute on chronic systolic CHF with peripheral edema, CXR showing pulmonary edema and BNP 14937. We managed fluid status with dialysis. He had a cough a sputum checked. Repeat CXR showing small pleural effusions and improved findings of pulmonary edema. PNA felt less likely. Cough now yellow but mostly nonproductive. He overall did well adn was able to be discharged home on 08/21/22. Status at Discharge Cognitive/behavioral status at discharge: stable Time Spent with Patient Time attestation: Total time spent providing and/or coordinating discharge services: 34 minutes Time spent: Greater than 30 minutes Exam Narrative: AF 97.4 161/54 67 16 100% ra Gen - NARD sitting at the side of the bed Chest - CTA bilaterally, nml RR CV - RRR S1/S2. Tele showing mostly just PVCs Abd - Soft, NT/ND, Positive BS Ext - trace pedal edema with thrill/bruit Left UE. Neuro - Alert and oriented. Nonfocal exam. Psych - Nml mood and affect Skin - Warm and dry DS: Data Data Completed and Pending Labs on day of discharge: Labs from last 24 hours 08/21/22 08/18/22 04:35 18:01 WBC 4.5 RBC 3.12 L Hgb 10.7 L Hct 32.0 L MCV 102.6 H MCH 34.3 H MCHC 33.4 RDW 13.8 Plt Count 106 L MPV 9.7 Immature Gran % (Auto) 0.4 Neut % (Auto) 60.2 Lymph % (Auto) 24.5 Sharp % (Auto) 10.6 H Eos % (Auto) 3.6 Baso % (Auto) 0.7 Lymph # (Auto) 1.09 Sharp # (Auto) 0.5 Eos # (Auto) 0.2 Baso # (Auto) 0.0 Abs Immat Gran (auto) 0.02 Absolute Neuts (auto) 2.7 Absolute Nucleated RBC 0.0 Nucleated RBC % 0.0 Sodium 135 L Potassium 5.4 H Chloride 93 L Carbon Dioxide 33 H Anion Gap 9 BUN 49 H D Creatinine 8.70 H Estim Creat Clear Calc 12 Estimated GFR 6 L Glucose 87 Calcium 9.2 Phosphorus 7.6 H Magnesium 2.4 H Albumin 3.8 Hep B Core Total Ab Nonreactive Preliminary micro resu
--- NOTE | 2022-08-26 10:12 | PC.NURSE ---
Sputum cx is negative. Dr. Lesly caballero.
== END 2022-08-21 18:07 | disposition home or self-care (01) | DRG 304 ==
LOC: ANHED 17:50 → ANHIMU 20:22
PROVIDERS: Internal Medicine Nephrology; Student in an Organized Health Care Education/Training Program; Admitting Provider Internal Medicine; Emergency Provider Emergency Medicine; PCP Family Medicine; Visit Provider Internal Medicine
DX: I16.1 Hypertensive emergency (principal); I50.23 Acute on chronic systolic (congestive) heart failure; N18.6 End stage renal disease; E11.22 Type 2 diabetes mellitus with diabetic chronic kidney disease; I13.2 Hypertensive heart and chronic kidney disease with heart failure and with stage 5 chronic kidney disease, or end stage renal disease; R09.02 Hypoxemia; E87.5 Hyperkalemia; E78.5 Hyperlipidemia, unspecified; I25.10 Atherosclerotic heart disease of native coronary artery without angina pectoris; D63.1 Anemia in chronic kidney disease; K21.9 Gastro-esophageal reflux disease without esophagitis; D69.6 Thrombocytopenia, unspecified; N25.0 Renal osteodystrophy; G47.33 Obstructive sleep apnea (adult) (pediatric); Z99.2 Dependence on renal dialysis; Z79.82 Long term (current) use of aspirin; Z87.891 Personal history of nicotine dependence; Z95.1 Presence of aortocoronary bypass graft; Z91.118 Patient's noncompliance with dietary regimen for other reason
CPT/HCPCS: 36415; 71046; 80053; 80069; 83735; 83880; 85025; 85027; 85055; 85610; 85730; 86704; 86706; 87070; 87205; 87340; 93005; 96374; 96375; 96376; 99285; A9270; G0257; G0378; J0360; J0612; J1644; J1815; J1940; J2270; J7030; Q5105

== ENCOUNTER 2023-01-08 15:28 | Outpatient (CLI) | payer MEDICARE, OTHER, SELFPAY ==
--- NOTE | 2023-01-08 | ECHO_ITS ---
Patient Info Name: Ramone Coleman Age: 62 years : 1960 Gender: Male Ht: 75 in Wt: 285 lbs BSA: 2.66 m2 HR: 80 bpm BP: 146 / 73 mmHg Heart Rhythm: Sinus Rhythm Technical Quality: Good Exam Date: 01/08/2023 3:42 PM Exam Location: Echo Lab Patient Status: Outpatient Admit Date: 01/08/2023 Staff Ordering Physician: Aidan Yadav DO Resident Care Associate: Todd Valentine RDCS Attending Provider: Aidan Yadav DO Referring Physician: Leif BUSTAMANTE; Exam Type: CA echo doppler color flow Study Info Indications - other form of dyspnea Complete two-dimensional, color flow and Doppler transthoracic echocardiogram is performed. Summary 1. Complete two-dimensional, color flow and Doppler transthoracic echocardiogram is performed. 2. Left ventricular chamber dimension is normal. 3. Left ventricular systolic function is normal, estimated at 55-60%. 4. There is moderate concentric increased left ventricular wall thickness. 5. The left ventricular diastolic function is grade I diastolic dysfunction. 6. E/e' 11 is mildly elevated. 7. Left atrial chamber dimension is moderately enlarged. 8. There is mild aortic valve sclerosis. 9. The mitral valve has moderately calcified annulus. 10. There is mild mitral valve regurgitation. 11. There is mild tricuspid valve regurgitation. 12. No pulmonary hypertension, estimated pulmonary arterial systolic pressure is 26 mmHg. Left Ventricle E/e' 11 is mildly elevated. Left ventricular chamber dimension is normal. Left ventricular systolic function is normal, estimated at 55-60%. There is moderate concentric increased left ventricular wall thickness. The left ventricular diastolic function is grade I diastolic dysfunction. Right Ventricle Right ventricular systolic function is normal and with normal TAPSE 2.6 cm. Right ventricular chamber dimension is normal. Left Atria Left atrial chamber dimension is moderately enlarged. Right Atria Right atrial chamber dimension is normal. Aortic Valve The aortic valve is trileaflet. There is mild aortic valve sclerosis. There is no aortic valve stenosis. There is no aortic valve regurgitation. Pulmonic Valve There is no pulmonic regurgitation. Mitral Valve The mitral valve has moderately calcified annulus. There is no mitral valve stenosis. There is mild mitral valve regurgitation. Tricuspid Valve There is mild tricuspid valve regurgitation. No pulmonary hypertension, estimated pulmonary arterial systolic pressure is 26 mmHg. Pericardium/Pleural There is no pericardial effusion. Inferior Vena Cava Normal inferior vena cava with >50% collapse upon inspiration consistent with normal right atrial pressure, 5 mmHg. Aorta The aortic root size at the sinus of Valsalva is normal. Left Ventricular Outflow Tract Name Value Normal LVOT 2D LVOT Diameter 2.2 cm LVOT Doppler LVOT Peak Gradient 7 mmHg LVOT Mean Gradient 3 mmHg LVOT VTI 23 cm LVOT VTI/AV VTI Ratio 0.6 LVOT Stroke Volume 90 ml LVOT CO 19.0 l/min LVOT CI
== END 2023-01-08 15:29 | disposition home or self-care (01) ==
LOC: ANHCARD 15:30
PROVIDERS: PCP Nurse Practitioner Family; Visit Provider Internal Medicine Cardiovascular Disease
DX: R06.09 Other forms of dyspnea (principal); I34.0 Nonrheumatic mitral (valve) insufficiency; I36.1 Nonrheumatic tricuspid (valve) insufficiency
CPT/HCPCS: 93306

== ENCOUNTER 2023-01-14 10:41 | Outpatient (CLI) | payer MEDICARE, OTHER, SELFPAY ==
[2023-01-14 10:55] LABS: Hematocrit 29.4 % (40.0-54.0); Hemoglobin 9.8 g/dL (14.0-18.0)
[2023-01-14 11:36] LABS: Alanine Aminotransferase 35 U/L (16-63); Albumin Level 3.5 g/dL (3.4-5.0); Alkaline Phosphatase 172 U/L (46-116); Anion Gap 7 mmol/L (8-16); Aspartate Amino Transferase 16 U/L (15-37); Bilirubin,Total 0.4 mg/dL (0.00-1.00); Blood Urea Nitrogen 56 mg/dL (7-18); Calcium 9.6 mg/dL (8.5-10.1); Carbon Dioxide 32 mmol/L (21-32); Chloride 102 mmol/L (98-108); Estimated Glomerular Filt Rate 6; Glucose 94 mg/dL (70-99); Osmolality Calculated 307 mOsm/kg (285-295); Potassium 6.1 mmol/L (3.5-5.1); Sodium 141 mmol/L (136-145); Total Protein 6.8 g/dL (6.4-8.2)
== END 2023-01-14 10:42 | disposition home or self-care (01) ==
LOC: CHSLAB 10:44
PROVIDERS: PCP Nurse Practitioner Family; Visit Provider Nurse Practitioner Family
DX: D64.9 Anemia, unspecified (principal)
CPT/HCPCS: 36415; 80053; 85014; 85018

== ENCOUNTER 2023-02-10 10:01 | Outpatient (CLI) | payer MEDICARE, OTHER, SELFPAY ==
--- NOTE | ~2023-02-10 | XR_ITS ---
Left Knee Technique: AP, lateral, and sunrise views were obtained. Clinical History: Pain Findings: No fracture or dislocation is seen. There is mild degenerative change. Questionable area of lucency in the subchondral region of the medial femoral condyle. Soft tissues are unremarkable. No j oint effusion is seen. Impression: Subtle lucency at the subchondral region of the medial femoral condyle. Early developing osteochondra l lesion is a potential consideration. Consider follow-up MR to further evaluate, as indicated. Minimal degenerative change. Reviewed, dictated and finalized at location M. PRESSURE KETTLE OPERATOR Impression: Subtle lucency at the subchondral region of the medial femoral condyle. Early d eveloping osteochondral lesion is a potential consideration. Consider follow-up MR to further evaluate, as indicated. Minimal degenerative change.
--- NOTE | ~2023-02-10 | XR_ITS ---
Right Knee Technique: AP, lateral, and sunrise views were obtained. Clinical History: Pain Findings: No fracture or dislocation is seen. Osseous alignment is anatomic. Joint spaces are preserv ed without degenerative or erosive change. Soft tissues are unremarkable. No joint effusion is seen. Impression: Unremarkable right knee radiographs. Reviewed, dictated and finalized at location . R DIPPER Impression: Unremarkable right knee radiographs.
== END 2023-02-10 10:02 | disposition home or self-care (01) ==
LOC: CHSIMG 10:05
PROVIDERS: PCP Family Medicine; Visit Provider Nurse Practitioner Family
DX: M25.561 Pain in right knee (principal); M25.562 Pain in left knee
CPT/HCPCS: 73562

== ENCOUNTER 2023-02-14 10:12 | Outpatient (CLI) | payer MEDICARE, OTHER, SELFPAY | END 2023-02-14 10:13 | disposition home or self-care (01) | LOC: CHSIMG 10:15 | PROVIDERS: PCP Family Medicine; Visit Provider Nurse Practitioner Family | DX: M25.562 Pain in left knee (principal) | CPT/HCPCS: 99199 ==

== ENCOUNTER 2023-03-11 09:27 | Outpatient (CLI) | payer MEDICARE, OTHER, SELFPAY ==
--- NOTE | ~2023-03-11 | MR_ITS ---
EXAMINATION: MR knee RT wo con DATE: 03/11/2023 10:23 INDICATION: M25.561 - Pain in right knee TECHNIQUE: Magnetic resonance imaging (MRI) of the right knee was performed without intravenous contr ast. Sequences included axial PD-weighted FS FSE, coronal PD-weighted FSE and PD-weighted FS FSE, sag ittal PD-weighted FSE, and sagittal T2-weighted FS FSE. COMPARISON: X-ray right knee 02/10/2023 FINDINGS: Medial compartment: Complex tear of the posterior horn involving oblique undersurface, parrot beak, and horizontal compon ents. There is likely healing granulation tissue in the horizontal component. Moderate medial extrusi on. Moderate diffuse cartilage thinning. 12 mm area of full-thickness cartilage loss on the femoral c ondyle overlying the meniscal tear. Minimal osteophytosis. Lateral compartment: Intact meniscus. Mild diffuse cartilage loss. Mild osteophytosis. Patellofemoral compartment: Moderate cartilage thinning with subchondral cysts on the medial facet. Near full-thickness shearing type cartilage defect on the lateral facet with cartilage fraying. Retinacula intact. Ligaments and tendons: Mild thickening, abnormal signal and discontinuity in the proximal aspect of the MCL. The ACL, PCL, a nd LCL are intact. Remaining flexor and extensor tendons are intact. Fluid: Large volume joint fluid. Synovitis. Osseous/other: No suspicious focal or diffuse marrow signal. IMPRESSION: Complex tear of the posterior horn, medial meniscus. 12 mm area of full-thickness cartilage loss on the medial femoral condyle overlying the meniscal tear . Partial-thickness MCL tear, may be acute or chronic. Moderate chondromalacia patellae. Large right knee joint effusion with synovitis. Reviewed, dictated and finalized at location K. P ACCOUNT DIRECTOR IMPRESSION: Complex tear of the posterior horn, medial meniscus. 12 mm area of full-thickness cartilage loss on the medial femoral condyle overl arnie the meniscal tear. Partial-thickness MCL tear, may be acute or chronic. Moderate chondromalacia patellae. Large right knee joint effusion with synovitis.
--- NOTE | ~2023-03-11 | MR_ITS ---
MRI of the left knee Clinical history: Pain Technique: Coronal proton density and proton density-weighted images, sagittal proton-density and T2 fat-sat images, and axial proton-density fat-saturated images were acquired. Findings: Anterior and posterior cruciate ligaments are intact. Medial collateral ligament and the la teral collateral ligament complex are intact. Popliteus tendon is intact. There is probable radial tear at the posterior root of the medial meniscus. Possible superimposed hor izontal tear of the posterior horn. No lateral meniscal tear seen. There is high-grade chondromalacia extensively involving the medial femoral condyle with mild remodel ing and flattening of the tibial surface and prominent focal subchondral cystic change/geode. There i s mild chondromalacia of the lateral compartment. Patellofemoral cartilage is preserved. There is ost eophyte formation at the medial lateral joint lines, and at the patella. Bipartite patella noted. Extensor mechanism is intact. Small joint effusion present. No Tavarez's cyst. Impression: Radial tear at the posterior the medial meniscus with possible superimposed horizontal tear of the po sterior horn. Advanced degenerative change of the medial compartment, as detailed above. Mild degenerative change o f the lateral and patellofemoral compartments. Reviewed, dictated and finalized at location M. ANDS TECHNICIAN Impression: Radial tear at the posterior the medial meniscus with possible superimposed hor izontal tear of the posterior horn. Advanced degenerative change of the medial compartment, as detailed above. Mild degenerative change of the lateral and patellofemoral compartments.
== END 2023-03-11 09:28 | disposition home or self-care (01) ==
PROVIDERS: PCP Family Medicine; Visit Provider Nurse Practitioner Family
DX: M25.461 Effusion, right knee (principal); S83.411D Sprain of medial collateral ligament of right knee, subsequent encounter; X58.XXXD Exposure to other specified factors, subsequent encounter; S83.242A Other tear of medial meniscus, current injury, left knee, initial encounter; X58.XXXA Exposure to other specified factors, initial encounter
CPT/HCPCS: 73721

== ENCOUNTER 2023-04-01 12:33 | Outpatient (CLI) | payer MEDICARE, OTHER, SELFPAY ==
--- NOTE | 2023-04-01 12:40 | ECG_ITS ---
Measurements Intervals Shipman Rate: 71 P: 48 UT: 251 QRS: 65 QRSD: 136 T: -14 QT: 432 QTc: 471 Interpretive Statements SINUS RHYTHM WITH FIRST DEGREE AV BLOCK RIGHT BUNDLE BRANCH BLOCK BORDERLINE ST-T WAVE ABNORMALITY- INFERIOR LEADS BASELINE ARTIFACT- III, V2 ABNORMAL ECG COMPARED TO ECG 08/18/2022 15:08:34 PEAKED T WAVES RESOLVED Electronically Signed On 04-01-2023 12:51:13 SHINGLE CARRIER by Aidan Yadav D.O.
== END 2023-04-01 12:34 | disposition home or self-care (01) ==
LOC: CHSCARD 12:36
PROVIDERS: PCP Family Medicine; Visit Provider Family Medicine
DX: N18.6 End stage renal disease (principal); J18.9 Pneumonia, unspecified organism; I10 Essential (primary) hypertension; I44.1 Atrioventricular block, second degree; Z99.2 Dependence on renal dialysis; I44.0 Atrioventricular block, first degree; I45.10 Unspecified right bundle-branch block; R94.31 Abnormal electrocardiogram [ECG] [EKG]
CPT/HCPCS: 93005

== ENCOUNTER 2023-06-24 00:40 | Day surgery (SDC) | payer MEDICARE, SELFPAY ==
[2023-06-16 13:13] VITALS: BMI 38.0
--- NOTE | 2023-06-16 14:06 | PC.NURSE ---
Spoke with _patient_ regarding medication _plavix_. Pt. verbalizes understanding that the last dose of _plavix is to be taken on _06/19/2023__ and the Endoscopist will instruct them when to restart after the procedure.
[2023-06-24 08:42] LABS: Glucose Point of Care 79 mg/dl (65-105)
[2023-06-24 08:44] VITALS: BP 120/56; PULSE 73; RESP 20; TEMP 35.9; O2SAT 97
--- NOTE | 2023-06-24 08:48 | WPDANESEPPF ---
Anes - Initial Pre Proc Eval Procedure: Operation Date: 06/24/23 09:30 Proposed Procedures p Screening Colonoscopy - Kenn Yeh MD Date/Time: 06/24/23 08:48 Surgeon: Kenn Yeh MD Pre Op Diagnosis: hx of colon polyps Patient Data Age: 63 Gender: M Height: 1.83 m Weight: 134.3 kg Last Vital Signs Temp 96.6 F L 06/24/23 08:44 Pulse 73 06/24/23 08:44 Resp 20 06/24/23 08:44 BP 120/56 L 06/24/23 08:44 Pulse Ox 97 06/24/23 08:44 O2 Del Method Room Air 06/24/23 08:44 Allergies Allergy/AdvReac Type Severity Reaction Status Date / Time No Known Allergies Allergy Verified 06/24/23 08:25 Home Medications Medication Instructions Recorded Confirmed Type aspirin 81 mg tablet,delayed 81 mg PO DAILY 03/16/19 06/16/23 History release (Adult Low Dose Aspirin) sucroferric oxyhydroxide 500 mg 500 mg PO TID 02/03/20 06/16/23 History chewable tablet (Velphoro) cholecalciferol (vitamin D3) 25 25 mcg PO DAILY 10/09/20 06/16/23 History mcg (1,000 unit) tablet (Vitamin D3) sevelamer carbonate 800 mg tablet 2,400 mg PO TIDWM 10/09/20 06/16/23 History pregabalin 150 mg capsule 150 mg PO BID 12/12/21 06/16/23 History levothyroxine 100 mcg capsule 100 mcg PO DAILY 06/05/22 06/16/23 History metoprolol tartrate 25 mg tablet 25 mg PO BID 08/19/22 06/16/23 History losartan 50 mg tablet See Rx Instructions .Route 12/25/22 06/16/23 Rx .COMPLEX #90 tabs albuterol sulfate 90 mcg/actuation 1 inh inhalation Q4H PRN Shortness 03/12/23 06/16/23 History aerosol inhaler Of Breath carbidopa ER 25 mg-levodopa 100 mg 1 tablet PO QHS #90 tabs 03/12/23 06/16/23 Rx tablet,extended release hydrocodone 5 mg-acetaminophen 325 1 tablet PO Q6H PRN pain #30 tabs 04/14/23 06/16/23 Rx mg tablet clopidogrel 75 mg tablet See Rx Instructions .Route 04/21/23 06/16/23 Rx .COMPLEX #30 tabs sertraline 25 mg tablet See Rx Instructions .Route 06/11/23 06/16/23 Rx .COMPLEX #30 tabs hydroxyzine HCl 25 mg tablet See Rx Instructions .Route 06/12/23 06/16/23 Rx .COMPLEX #30 tabs budesonide 160 mcg-glycopyr 9 2 inh inhalation BID PRN Shortness 06/16/23 06/16/23 History mcg-formot 4.8 mcg/actuation HFA Of Breath Or Wheezing inhaler (Breztri Aerosphere) vitamin B complex and vitamin C 1 cap PO DAILY 06/16/23 06/16/23 History no.20-folic acid 1 mg capsule (Triphrocaps) Laboratory Tests 06/24/23 08:39 POC Capillary Glucose 79 mg/dl (65-105) Patient hx anesthesia problems: none Family hx anesthesia problems: none Results Review: All pre-operative results and documents have been reviewed as part of the pre-operative evaluation. [facility] Past Medical History Medical History Acute sinusitis Acute upper respiratory infection, unspecified Back pain Chest pain in adult Dupuytren contracture Dyspnea Edema of both legs GERD (gastroesophageal reflux disease) Headache HTN (hypertension) (12/30/16) Hyperlipidemia (12/30/16) Nausea and vomiting Obstructive sleep apnea (09/10/17) ORIANA on CPAP Right upper quadrant abdominal pain Shortness of breath (09/10/17) Type 2 diabetes mellitus (12/30/16) Surgical History Surgical History History of elbow surgery History of heart surgery Open heart surgery History of knee surgery History of shoulder surgery History of surgery on arm Family History Family History Father Diabetes mellitus Mother Diabetes mellitus Mother Family history of type 2 diabetes mellitus Father Family history of coronary artery disease Family history of type 2 diabetes mellitus Brother Family history of type 2 diabetes mellitus Cerebrovascular accident Social History Social History (Reviewed 06/11/23 @ 09:18 by Layla Choudahry
[2023-06-24] MEDS: SODIUM CHLORIDE 0.9% IV 500 ML 10 ML IV CONT (08:50)
--- NOTE | 2023-06-24 09:12 | PM.HPGS ---
History of Present Illness History of Present Illness Consent: Risks, benefits, and alternatives have been discussed and questions answered. Patient agrees to proceed with procedure. Chief complaint: hx of colon polyps Narrative: Ramone Coleman is a 63 year old male with colon polyps, last colonoscopy 5 years ago Review of Systems Review of Systems: All systems reviewed & are unremarkable except as noted in HPI and below PMFSH Past Medical History Medical History (Updated 06/24/23 @ 09:15 by Kenn Yeh MD) Acute sinusitis Acute upper respiratory infection, unspecified Back pain Chest pain in adult Colon polyp Dupuytren contracture Dyspnea Edema of both legs GERD (gastroesophageal reflux disease) Headache HTN (hypertension) (12/30/16) Hyperlipidemia (12/30/16) Nausea and vomiting Obstructive sleep apnea (09/10/17) ORIANA on CPAP Right upper quadrant abdominal pain Shortness of breath (09/10/17) Type 2 diabetes mellitus (12/30/16) Surgical History Surgical History History of elbow surgery History of heart surgery Open heart surgery History of knee surgery History of shoulder surgery History of surgery on arm Family History Family History Father Diabetes mellitus Mother Diabetes mellitus Mother Family history of type 2 diabetes mellitus Father Family history of coronary artery disease Family history of type 2 diabetes mellitus Brother Family history of type 2 diabetes mellitus Cerebrovascular accident Social History Social History Smoking packs per day: 2 Smoking cigarettes per day: 40.0 Years smoked: 30 Smoking pack-years: 60.00 Smoking status: Former smoker Tobacco type: cigarettes Second hand tobacco smoke exposure: Yes Smoking end date: 03/02/17 Alcohol intake: current Substance use: never Substance use type: does not use Living arrangements: with family Additional living arrangements comments: LIVES W/ , [place] Gender identity (if verbalized by the patient): Male Spiritual care concerns: No Meds Home Medications and Allergies Home Medications Medication Instructions Recorded Confirmed Type aspirin 81 mg tablet,delayed 81 mg PO DAILY 03/16/19 06/16/23 History release (Adult Low Dose Aspirin) sucroferric oxyhydroxide 500 mg 500 mg PO TID 12/04/20 04/16/24 History chewable tablet (Velphoro) cholecalciferol (vitamin D3) 25 25 mcg PO DAILY 10/09/20 06/16/23 History mcg (1,000 unit) tablet (Vitamin D3) sevelamer carbonate 800 mg tablet 2,400 mg PO TIDWM 10/09/20 06/16/23 History pregabalin 150 mg capsule 150 mg PO BID 12/12/21 06/16/23 History levothyroxine 100 mcg capsule 100 mcg PO DAILY 06/05/22 06/16/23 History metoprolol tartrate 25 mg tablet 25 mg PO BID 08/19/22 06/16/23 History losartan 50 mg tablet See Rx Instructions .Route 12/25/22 06/16/23 Rx .COMPLEX #90 tabs albuterol sulfate 90 mcg/actuation 1 inh inhalation Q4H PRN Shortness 03/12/23 06/16/23 History aerosol inhaler Of Breath carbidopa ER 25 mg-levodopa 100 mg 1 tablet PO QHS #90 tabs 03/12/23 06/16/23 Rx tablet,extended release hydrocodone 5 mg-acetaminophen 325 1 tablet PO Q6H PRN pain #30 tabs 04/14/23 06/16/23 Rx mg tablet clopidogrel 75 mg tablet See Rx Instructions .Route 04/21/23 06/16/23 Rx .COMPLEX #30 tabs sertraline 25 mg tablet See Rx Instructions .Route 06/11/23 06/16/23 Rx .COMPLEX #30 tabs hydroxyzine HCl 25 mg tablet See Rx Instructions .Route 06/12/23 06/16/23 Rx .COMPLEX #30 tabs budesonide 160 mcg-glycopyr 9 2 inh inhalation BID PRN Shortness 06/16/23 06/16/23 History mcg-formot 4.8 mcg/actuation HFA Of Breath Or Wheezing inhaler (Breztri Aerosphere) vitamin B complex and vitamin C 1 cap PO DAILY 06/16/23 06/16/23 Hist
[2023-06-24 09:38] VITALS: BP 96/42; PULSE 65; RESP 15; O2SAT 100
[2023-06-24 09:48] VITALS: BP 102/37; PULSE 64; RESP 14; O2SAT 100
[2023-06-24 09:58] VITALS: BP 104/48; PULSE 63; RESP 12; O2SAT 100
== END 2023-06-24 10:10 | disposition home or self-care (01) ==
PROVIDERS: PCP Family Medicine; Visit Provider Internal Medicine Gastroenterology
PROC: 0DJD8ZZ Inspection of Lower Intestinal Tract, Via Natural or Artificial Opening Endoscopic (ICD-10-PCS; CPT 45378; principal; 2023-06-24 09:30)
DX: Z12.11 Encounter for screening for malignant neoplasm of colon (principal); D12.2 Benign neoplasm of ascending colon; K63.5 Polyp of colon; K57.30 Diverticulosis of large intestine without perforation or abscess without bleeding; K64.4 Residual hemorrhoidal skin tags; I10 Essential (primary) hypertension; E78.5 Hyperlipidemia, unspecified; G47.33 Obstructive sleep apnea (adult) (pediatric); K21.9 Gastro-esophageal reflux disease without esophagitis; E11.9 Type 2 diabetes mellitus without complications; Z87.891 Personal history of nicotine dependence; E66.01 Morbid (severe) obesity due to excess calories; Z68.41 Body mass index [BMI] 40.0-44.9, adult; Z79.82 Long term (current) use of aspirin; Z79.51 Long term (current) use of inhaled steroids; Z79.02 Long term (current) use of antithrombotics/antiplatelets; Z79.891 Long term (current) use of opiate analgesic
CPT/HCPCS: 45385; 82948; 88305; J2704; J7040

== ENCOUNTER 2023-09-23 09:26 | Outpatient (CLI) | payer MEDICARE, SELFPAY ==
--- NOTE | ~2023-09-23 | NM_ITS ---
EXAMINATION: NM serafin stress w perfusion DATE: 09/23/2023 12:09 INDICATION: Chest pain TECHNIQUE: Rest images were obtained following intravenous administration of 9.2 mCi Tc99m tetrofosmi n (Myoview). The patient was infused intravenously with Lexiscan (Regadenoson). Then, 29.4 mCi Tc99m tetrofosmin (Myoview) was administered intravenously, and stress images were obtained in both the sup ine and prone position. Data was reconstructed into short axis and horizontal and vertical long axis SPECT images. Gated SPECT images were also obtained. COMPARISON: 08/21/2020 FINDINGS: There is a similar region of apparent decreased perfusion along the anterior and anterolate ral ham on the stress images and extending into the anterior inferior wall on the rest images obtai ginna in the supine position. The small normalizes on imaging obtained in the prone position. No eviden t perfusion defects on the prone imaging to suggest ischemia or infarct. There is normal left ventric ular chamber size, wall motion and ejection fraction. Left ventricular ejection fraction measures 55 %. IMPRESSION: 1. Normal myocardial perfusion during stress when imaged in the prone position with significant artif actual attenuation along the anterior and anterolateral ham on imaging obtained in the supine posit ion. 2. Left ventricular ejection fraction measuring 55%. Reviewed, dictated and finalized at location A. IMPRESSION: 1. Normal myocardial perfusion during stress when imaged in the prone position with significant artifactual attenuation along the anterior and anterolateral w alls on imaging obtained in the supine position. 2. Left ventricular ejection fraction measuring 55%.
--- NOTE | 2023-09-23 09:35 | EST_ITS ---
Patient Info Name: Ramone Coleman Age: 63 years : 1960 Gender: Male Ht: 75 in Wt: 295 lbs BSA: 2.71 m2 HR: 67 bpm BP: 142 / 54 mmHg Heart Rhythm: Sinus Rhythm Exam Date: 09/23/2023 10:55 AM Exam Location: Echo Lab Patient Status: Outpatient Admit Date: 09/23/2023 Staff Ordering Physician: Aidan Yadav DO Attending Provider: Aidan Yadav DO Exercise Technologist: Opal Lopez CT Exercise Physician: Aidan Yadav DO Exam Type: CA stress serafin w NM Study Info Indications Z01.810 - Encounter for preprocedural cardiovascular examination A treadmill exercise stress test was performed. Summary 1. 1. Negative lexiscan stress test for ischemic ST changes by ECG criteria. 2. 2. Stable hemodynamics throughout the test. 3. 3. Nuclear scan to follow and will be reported separately. Please correlate with it. 4. 4. Patient informed of the above results. Protocol: Lexiscan Stress ECG Details Stage: REST Duration (min): 2 min : 11 sec HR (bpm): 62 SBP (mmHg): 142 DBP (mmHg): 54 Stage: REST Duration (min): 14 min : 17 sec HR (bpm): 68 SBP (mmHg): 142 DBP (mmHg): 54 Stage: STAGE 1 Duration (min): 0 min : 59 sec HR (bpm): 70 SBP (mmHg): 142 DBP (mmHg): 54 Stage: RECOVERY Duration (min): 0 min : 34 sec HR (bpm): 69 SBP (mmHg): 142 DBP (mmHg): 54 Stage: RECOVERY Duration (min): 1 min : 0 sec HR (bpm): 70 SBP (mmHg): 142 DBP (mmHg): 54 Stage: RECOVERY Duration (min): 2 min : 0 sec HR (bpm): 67 SBP (mmHg): 142 DBP (mmHg): 54 Stage: RECOVERY Duration (min): 3 min : 0 sec HR (bpm): 73 SBP (mmHg): 142 DBP (mmHg): 54 Stage: RECOVERY Duration (min): 3 min : 53 sec HR (bpm): 69 SBP (mmHg): 128 DBP (mmHg): 65 Rest HR: 68 bpm Peak HR: 76 bpm Rest Sys BP: 142 mmHg Peak Sys BP: 128 mmHg Max Pred HR: 155 bpm % Max Pred HR: 49 % Target HR: 132 bpm Max RPP: 9,728 bpm*mmHg Termination Reason: Completed protocol Cardiac Symptoms: Shortness of breath Total Time: 1 min : 0 sec Rest Kiser BP: 54 mmHg Peak Kiser BP: 65 mmHg Total Dose: 0.4 mg Resting ECG Sinus rhythm, first degree AV block, RBBB. Stress ECG No ST changes. Arrhythmias None. Report Signatures
== END 2023-09-23 09:27 | disposition home or self-care (01) ==
LOC: ANHCARD 09:29
PROVIDERS: PCP Family Medicine; Visit Provider Internal Medicine Cardiovascular Disease
DX: Z01.810 Encounter for preprocedural cardiovascular examination (principal); R07.9 Chest pain, unspecified; N18.6 End stage renal disease
CPT/HCPCS: 78452; 93017; A9502; J2785

== ENCOUNTER 2023-12-10 08:23 | Outpatient (CLI) | payer MEDICARE, SELFPAY ==
--- NOTE | ~2023-12-10 | US_ITS ---
EXAMINATION:US venous doppler LE RT INDICATION:Right leg pain TECHNIQUE: Multiple grayscale, color flow and Doppler images of the right lower extremity deep venous systems were obtained and reviewed. COMPARISON:No prior studies for comparison. FINDINGS: The common femoral, superficial femoral and popliteal veins demonstrate normal respiratory variation, augmentation and compressibility. Color flow is also seen within the posterior tibial, pe roneal, greater saphenous and profunda veins. Incidental note is made of small varicose veins anterio r to the knee which appear thrombosed. IMPRESSION: 1: No lower extremity deep venous thrombosis. Reviewed, dictated and finalized at location B.
== END 2023-12-10 08:24 | disposition home or self-care (01) ==
LOC: CHSIMG 08:26
PROVIDERS: PCP Family Medicine; Visit Provider Nurse Practitioner Family
DX: M79.89 Other specified soft tissue disorders (principal); M79.604 Pain in right leg; Z86.718 Personal history of other venous thrombosis and embolism
CPT/HCPCS: 93971

== ENCOUNTER 2023-12-23 15:27 | Outpatient (NON) | payer MEDICARE, SELFPAY | END 2023-12-23 15:28 | disposition home or self-care (01) | LOC: CHSLAB 15:29 | PROVIDERS: Visit Provider Nurse Practitioner Family | DX: L97.919 Non-pressure chronic ulcer of unspecified part of right lower leg with unspecified severity (principal) | CPT/HCPCS: 87070; 87181; 87205 ==

== ENCOUNTER 2024-01-01 14:27 | Outpatient (CLI) | payer MEDICARE, SELFPAY ==
--- NOTE | ~2024-01-01 | XR_ITS ---
XR chest 2V DATE: 01/01/2024 14:39 INDICATION: Shortness of breath and weakness for 2 weeks TECHNIQUE: 2 views COMPARISON: 08/21/2022 2 view chest FINDINGS: Status post sternotomy and coronary artery bypass graft surgery. Mild cardiomegaly. Aortic arch calcification. No hilar or mediastinal enlargement is evident. No pulmonary infiltrate or consolidation, pleural effusion or pulmonary vascular congestion or pneumo thorax is detected. IMPRESSION: Status post coronary bypass graft surgery No active cardiopulmonary disease Reviewed, dictated and finalized at location A.
== END 2024-01-01 14:28 | disposition home or self-care (01) ==
LOC: CHSIMG 14:28
PROVIDERS: PCP Family Medicine; Visit Provider Family Medicine
DX: J44.9 Chronic obstructive pulmonary disease, unspecified (principal); Z95.1 Presence of aortocoronary bypass graft
CPT/HCPCS: 71046

== ENCOUNTER 2024-04-19 13:53 | Emergency (ER) | payer MEDICARE, SELFPAY ==
[2024-04-19] VITALS (44 sets, daily range): BP systolic 119–172; BP diastolic 44–74; PULSE 59–82; RESP 13–26; TEMP 36.6–36.9; O2SAT 81–100
--- NOTE | ~2024-04-19 | XR_ITS ---
XR chest 1V portable 04/19/2024 14:13 Indication: Shortness of breath, chest pain and weakness Procedure: AP portable chest Comparison: 01/01/2024 Findings: Status post median sternotomy for CABG. Cardiomegaly. There are bilateral interstitial infi ltrates of the mid and lower lungs. No significant effusion. No pneumothorax. Impression: 1: Mild bilateral interstitial infiltrates may represent edema or pneumonia. Reviewed, dictated and finalized at location B. [employer] Impression: 1: Mild bilateral interstitial infiltrates may represent edema or pneumonia.
--- OUTSIDE RECORDS SUMMARY | 2024-04-19 13:59 | XMS_ITS | Clinical Summary ---
Author Organization [facility] Address [address] [place] [address] Care Team Providers Care Corporate Licensed Broker Name Role Phone Aidan Yadav DO Unavailable [phone] Jovanna BUTLER MD, Susi Unavailable [phone] Frank Martin MD Unavailable [phone] Cam Harris MD Unavailable [phone] Marino Quick DO Primary Care Provider Ayo Abbott MD Unavailable [phone] Kirk Chaparro MD Unavailable [phone] Shama Antunez RN Unavailable [phone] Allergies No known active allergies Medications hydrOXYzine (ATARAX) 25 mg tablet Take 1 tablet (25 mg total) by mouth nightly as needed (sleep) 023 Active sertraline (ZOLOFT) 25 mg tablet Take 1 tablet (25 mg total) by mouth daily 023 Active albuterol HFA (PROVENTIL HFA,VENTOLIN HFA,PROAIR HFA) 90 mcg/actuation inhalerIndicatio ns:Bronchospasm Prevention Inhale 2 puffs every 4 (four) hours as needed for wheezing or shortness of breath Collaborating physician Erick Ragland MD 1 each Active Additional Information Patient not taking.Reported on 04/06/2024 lidocaine-priloc liliya cream External for 30 Days Active levothyroxine (SYNTHROID) 100 mcg tablet Take 1 tablet by mouth once daily 90 tablet 1 Active Trelegy Ellipta 200-62.5-25 mcg inhaler Inhale 1 puff daily Active carbidopa-levodo pa CR (SINEMET CR) 25-100 mg per CR tablet Take 1 tablet by mouth nightly Active THERAHONEY TOP Apply 1 Application topically as needed Dressing changes Active famotidine (PEPCID) 20 mg tablet Take 1 tablet (20 mg total) by mouth daily 30 tablet 2024 Active predniSONE (DELTASONE) 5 mg tablet Take 1 tablet (5 mg) by mouth daily TO START AFTER RX TAPER 30 tablet Active senna-docusate (PERICOLACE) 8.6-50 mg Take 1 tablet by mouth daily 30 tablet Active cholecalciferol (Vitamin D3) 2000 unit tablet Take 1 tablet (2,000 Units total) by mouth daily 30 tablet 2024 Active acetaminophen 500 mg capsuleIndicatio ns:Pain Take 2 capsules (1,000 mg total) by mouth every 6 (six) hours as needed for pain Active heparin lock flush, porcine, 10 unit/mL solution Dwell catheter with 3mL after each catheter use. Max 4/week. Dispense #20. 100 mL Active sodium chloride 0.9% injection Flush catheter with 10mL before and after each catheter use. Max 8/week. Dispense #40 10mL syringes 100 mL Active rosuvastatin (CRESTOR) 20 mg tablet Take 1 tablet (20 mg total) by mouth daily 30 tablet 11 2024 Active cyclobenzaprine (FLEXERIL) 5 mg tablet Take 1 tablet (5 mg total) by mouth 3 (three) times a day as needed for muscle spasms for up to 14 days 30 tablet Active polyethylene glycol (MIRALAX) 17 gram packetIndication s:constipation Take 1 packet (17 g total) by mouth daily as needed for constipation for up to 14 days 14 packet Active valGANciclovir (VALCYTE) 450 mg tablet Take 1 tablet (450 mg total) by mouth 3 (three) times a week 12 tablet [address] (MYFORTIC) 360 mg EC tablet Take 1 tablet (360 mg total) by mouth 2 (two) times a day 120 tablet 2025 Active pen needle, diabetic 32 gauge x 5/32 needle Use as directed 3 times a day. 100 each Active blood glucose diagnostic stripIndications :-donor kidney transplant recipient,Steroi d-induced hyperglycemia 1 strip QID with meals and at bedtime. Max 100 each Active blood-glucose meter miscIndications: Steroid-induced hyperglycemia 1 applicator 4 (four) times a day (with meals and nightly) 1 meter 1 each Active pen needle, diabetic (Pen Needle) 32 gauge x 5/32 needle Use as directed once a day. 100 each Active lancets 30 gauge miscIndications: Steroid-induced hyperglycemia 1 lancet QID with meals and at bedtime. Max of 100 each 1 Active oxyCODONE (ROXICODONE) 5 mg immediate release tabletIndication s:Pain Take 1 tablet (5 mg total) by mouth every 4 (four) hours as needed for pain 12 tablet Active clopidogreL (PLAVIX) 75 mg tablet Take 1 tablet (75 mg total) by mouth daily 30 tablet Active furosemide (LASIX) 80 mg tablet Take 1 tablet (80 mg total) by mouth daily 30 tablet 1 Active apixaban (ELIQUIS) 5 mg tabletIndication s:atrial fibrillation Take 1 tablet (5 mg total) by mouth 2 (two) times a day Active pregabalin (LYRICA) 150 mg capsule Take 1 capsule by mouth twice daily 60 capsule Active insulin aspart (NovoLOG) 100 unit/mL (3 mL) pen for injection Novolog flex pen: Inject 8 Units under the skin 3 (three) times a day with meals (plus blood glucose mg/dL 150-199: 2 units, 200-249: 4 units, 250-299: 6 units, 300-349: 8 units, 350 or greater: 10 units. Please give yourself correctional insulin, as needed with meals and before bedtime. Notify provider for blood glucose greater than 299 mg/dL. Max daily dose 65) 60 mL 3 Active TRESIBA 100 unit/mL (3 mL) pen for injection Inject 0.2 mL (20 Units total) under the skin daily Tenty units SC daily 18 mL 3 025 2025 Active tacrolimus XR (ENVARSUS XR) 1 mg tablet extended release 24 hrIndications:Pr evention of Kidney Transplant Rejection Take 3 tablets (3 mg total) by mouth daily START ON Thursday01/29/2024 90 tablet 11 025 2025 Active carvediloL (COREG) 6.25 mg tablet Take 1 tablet (6.25 mg total) by mouth 2 (two) times a day with meals 180 tablet 3 025 2025 Active nitroglycerin (NITROSTAT) 0.[address] 1 tablet (0.4 mg total) under the tongue every 5 (five) minutes as needed for chest pain May repeat dose q 5 min, up to 3 doses total 90 tablet 1 025 2025 Active amiodarone (PACERONE) 200 mg tabletIndication s:Prevention of Recurrent Atrial Fibrillation Take 1 tablet (200 mg total) by mouth daily START TAKING ONLY WHEN YOU HAVE FINISHED YOUR 400 MG DOSE. 30 tablet 024 2024 Discontinued(T herapy completed) carvediloL (COREG) 3.125 mg tablet Take 1 tablet (3.125 mg total) by mouth 2 (two) times a day with meals 60 tablet 024 2024 Discontinued insulin glargine (LANTUS) 100 unit/mL (3 mL) pen for injection Inject 20 Units under the skin every morning 6 mL 024 2024 Discontinued(A lternate therapy) insulin lispro (HumaLOG) 100 unit/mL pen for injection Inject 8 Units under the skin 3 (three) times a day with meals (plus blood glucose mg/dL 150-199: 2 units, 200-249: 4 units, 250-299: 6 units, 300-349: 8 units, 350 or greater: 10 units. Please give yourself correctional insulin, as needed with meals and before bedtime. Notify provider for blood glucose greater than 299 mg/dL. Max daily dose 65) 7.2 mL 024 2024 Discontinued(A lternate therapy) aspirin 81 mg enteric coated tablet Take 1 tablet (81 mg total) by mouth daily 2024 Discontinued(T herapy completed) tacrolimus XR (ENVARSUS XR) 1 mg tablet extended release 24 hrIndications:Pr evention of Kidney Transplant Rejection Take 3 tablets (3 mg total) by mouth daily START ON Thursday01/29/2024 025 2024 Discontinued(R eorder) Active Problems Patient Care Coordination No te Formatting of this note migh t be different from the original. 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 Normal exam in the right lower extremity. Follow up 6 months with duplex. Hx of colonic polyp 11/24/2022 Abnormal stress test 01/06/2022 Overview (01/07/2022): Added automatically from request for surgery [id number] Left knee pain 08/08/2021 Primary hypothyroidism 08/08/2021 Cellulitis of right lower extremity 05/02/2021 Coronary artery disease invo lving torres martinez heart without angina pectoris 10/25/2020 Overview (10/25/2020): Added automatically from request for surgery [id number] Diabetes mellitus 06/12/2020 Mixed hyperlipidemia 06/12/2020 Assessment & Plan (10/15/2023 11:31 AM CDT): Hyperlipidemia chronic controlled. Continue current medical management. Lower extremity edema 07/07/2018 Hyperkalemia 03/15/2018 Volume overload 03/15/2018 Anemia in stage 5 chronic ki dney disease, not on chronic dialysis 03/15/2018 ESRD (end stage renal disease) ([facility]) 018 Overview (01/25/2018): Added automatically from request for surgery [id number] Assessment & Plan (10/15/2023 11:28 AM CDT): End-stage renal disease. Continue dialysis pending renal transplant. LOLLY (renal osteodystrophy) 09/28/2017 Metabolic acidosis 09/28/2017 Essential hypertension 09/28/2017 Anemia in stage 4 chronic kidney disease 018 Stage 5 chronic kidney disease ([facility]) 018 Overview (03/10/2024): Added automatically from request for surgery [id number] Chronic renal failure, stage 4 (severe) ([facility] ) 06/15/2017 Chronic renal insufficiency, stage III (moderate ) 12/15/2016 Renal osteodystrophy 12/15/2016 Obesity 10/13/2016 Anemia in chronic kidney disease 10/13/2016 Hypertension 10/13/2016 Nephrotic syndrome 03/17/2013 Atherosclerosis of coronary artery 03/17/2013 Type 2 diabetes mellitus 03/17/2013 Restrictive ventilatory defect Resolved Problems Problem Noted Date Diagnosed Date Resolved Date Respiratory distress 03/24/2023 024 Pneumonia due to infectious organism 02/27/2023 08/27/2023 Overview (02/27/2023): Mild bibasilar infiltrates Acute bronchospasm 02/27/2023 Pulmonary edema 12/24/2022 08/27/2023 Other chest pain 01/06/2022 08/27/2023 Encounters Date Type Department Care Team Description 04/19/2024 10:20 AM HEAVY MOBILE EQUIPMENT REPAIRER Lab [facility] [address] [place] [phone] Kidney replaced by transplant; Encounter for long-term (current) use of medications 04/19/2024 Telephone [facility] Transplant Kidney [address] Mailstop [phone] [place] [address] Carolina Ramires 04/06/2024 1:00 PM HEAVY MOBILE EQUIPMENT REPAIRER Office Visit [facility] Cardiology [facility] Advanced Medicine 8th [place] [address] [place] [address] Marian Merino MD Coronary artery disease involving torres martinez coronary artery of torres martinez heart without angina pectoris (Primary Dx); Paroxysmal atrial fibrillation (CMS/HCC) (HCC); Abnormal stress test; Essential hypertension; Mixed hyperlipidemia; ORIANA (obstructive sleep apnea) 04/06/2024 12:45 PM HEAVY MOBILE EQUIPMENT REPAIRER Lab [facility]) [address] [place] [phone] Encounter for aftercare following kidney transplant 04/06/2024 11:15 AM HEAVY MOBILE EQUIPMENT REPAIRER - 04/06/2024 11:59 PM HEAVY MOBILE EQUIPMENT REPAIRER Hospital Encounter [facility] Radiology [facility] ([facility]) [address] [place] [address] Shortness of breath Discharge Disposition: Discharge to home or self care 04/06/2024 10:00 AM HEAVY MOBILE EQUIPMENT REPAIRER Office Visit [facility] Nephrology [address] [facility] 5th [place] [address] [place] [address] Aurea Fine NP Encounter for aftercare following kidney transplant (Primary Dx); Shortness of breath; 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; Kidney replaced by transplant; Hypertension, unspecified type 03/24/2024 [facility] [address] [facility] [address] [place] [address] Gamaliel Evans MD 03/22/2024 8:57 AM HEAVY MOBILE EQUIPMENT REPAIRER - 03/22/2024 11:59 PM HEAVY MOBILE EQUIPMENT REPAIRER Hospital Encounter [facility] [place] [address] Perinephric fluid collection Discharge Disposition: Discharge to home or self care 03/17/2024 Telephone [facility] Cardiology [address] [place] [address] 8th [place] [address] [place] [address] Marian Merino MD 03/17/2024 Telephone [facility] Radiology 1 [place] [address] Augusta Melara RN 03/16/2024 Telephone [facility] Cardiology [address] [place] [address] 8th [place] [address] [place] [address] Marian Merino MD 03/10/2024 10:00 AM HEAVY MOBILE EQUIPMENT REPAIRER Office Visit [facility] Radiology, Interventional Radiology [address] [facility] [address] [place] [address] Sue Hood PA Kidney replaced by transplant (Primary Dx); Central venous catheter in place 03/10/2024 8:40 AM HEAVY MOBILE EQUIPMENT REPAIRER Office Visit [facility] - [facility] Urology [address] [facility] 11th [place] [address] [place] [address] Roscoe Peck MD Encounter for removal of ureteral stent (Primary Dx) 03/10/2024 8:10 AM HEAVY MOBILE EQUIPMENT REPAIRER Lab [facility]) [address] [place] [phone] Kidney replaced by transplant 03/10/2024 Orders Only [facility] Transplant Kidney [address] Mailstop [phone] [place] [address] Shama Antunez RN 03/08/2024 11:31 AM HEAVY MOBILE EQUIPMENT REPAIRER - 03/08/2024 11:59 PM HEAVY MOBILE EQUIPMENT REPAIRER Hospital Encounter [facility] [address] [place] [address] Discharge Disposition: Discharge to home or self care 03/08/2024 11:30 AM HEAVY MOBILE EQUIPMENT REPAIRER - 03/08/2024 11:59 PM HEAVY MOBILE EQUIPMENT REPAIRER Hospital Encounter [facility] ([facility]) [address] [place] [address] Discharge Disposition: Discharge to home or self care 03/08/2024 11:30 AM HEAVY MOBILE EQUIPMENT REPAIRER - 03/08/2024 11:59 PM HEAVY MOBILE EQUIPMENT REPAIRER Hospital Encounter [facility] ([facility]) [address] [place] [address] Coronary artery disease involving torres martinez coronary artery of torres martinez heart without angina pectoris Discharge Disposition: Discharge to home or self care 03/08/2024 8:44 AM HEAVY MOBILE EQUIPMENT REPAIRER - 03/08/2024 11:59 PM HEAVY MOBILE EQUIPMENT REPAIRER Hospital Encounter [facility] Radiology [facility] [address] [place] [address] Perinephric fluid collection Discharge Disposition: Discharge to home or self care 03/08/2024 Home Care Visit [facility] - [address] [place] [address] Dayton Tate, SAURAV SN VIRTUAL OASIS DISCHARGE 03/08/2024 Telephone [facility] Radiology, Interventional Radiology [address] [facility] [address] [place] [address] Clarissa Juares, SAURAV Appointment 03/08/2024 Telephone [facility] Transplant Kidney [address] [facility] [facility] [address] Mailstop [phone] [place] [address] Shama Antunez, RN 03/08/2024 Orders Only [facility] Transplant Kidney [address] [facility] [address] Mailstop [phone] [place] [address] Shama Antunez, RN Kidney replaced by transplant (Primary Dx) 03/07/2024 9:15 AM HEAVY MOBILE EQUIPMENT REPAIRER Telemedicine [facility] Nephrology [address] [facility] 5th [place] [address] [place] [address] Grey Boland MD 03/07/2024 Telephone [facility] Radiology 1 [place] [address] Tiffanie Milton RN 03/04/2024 Telephone [facility] Radiology 1 [place] [address] Kirstin Soto, SAURAV 03/04/2024 Telephone [facility] Radiology 1 [place] [address] Kirstin Soto, SAURAV 03/03/2024 9:40 AM HEAVY MOBILE EQUIPMENT REPAIRER - 03/03/2024 11:59 PM HEAVY MOBILE EQUIPMENT REPAIRER Hospital Encounter [address] [address] Discharge Disposition: Discharge to home or self care 03/03/2024 5:30 AM HEAVY MOBILE EQUIPMENT REPAIRER Home Care Visit [address] [place] [address] Cele Mccallum HOME VISIT 03/03/2024 Home Care Visit [address] [place] [address] Maria T Staley, RN TELEPHONE ENCOUNTER 03/01/2024 8:00 AM HEAVY MOBILE EQUIPMENT REPAIRER - 03/01/2024 11:59 PM HEAVY MOBILE EQUIPMENT REPAIRER Hospital Encounter [address] [address] Discharge Disposition: Discharge to home or self care 03/01/2024 7:30 AM HEAVY MOBILE EQUIPMENT REPAIRER Home Care Visit [address] [place] [address] Dayton Tate, RN SN HOME VISIT 02/29/2024 Orders Only [facility] Transplant Kidney [address] [facility] [address] Mailstop [phone] [place] [address] Shama Antunez, SAURAV 02/29/2024 Orders Only [facility] Transplant Kidney [address] [facility] [address] Mailstop [phone] [place] [address] Shama Antunez, SAURAV 02/26/2024 Telephone [facility] Radiology [address] [place] [address] Tiffanie Mliton RN 02/26/2024 Orders Only [facility] Radiology 1 [place] [address] Tiffanie Milton RN 02/25/2024 1:00 PM HEAVY MOBILE EQUIPMENT REPAIRER Home Care Visit [address] [place] [address] Dayton Tate, SAURAV SN OASIS RESUMPTION OF CARE 02/25/2024 Plan of Care Documentation [address] [place] [address] 02/25/2024 Telephone [facility] Transplant Kidney [address] [facility] [address] Mailstop [phone] [place] [address] Sandrita Pabon 02/21/2024 12:09 PM HEAVY MOBILE EQUIPMENT REPAIRER - 02/23/2024 2:28 PM HEAVY MOBILE EQUIPMENT REPAIRER Hospital Encounter [address] [address] Renetta Jones MD PhD Darshan Beach MD PhD Perinephric fluid collection (Primary Dx) Discharge Disposition: Discharge to home, home health skilled care 02/21/2024 Home Care Visit [address] [place] [address] Dayton Tate, RN SN OASIS TRANSFER W/OUT DC 02/21/2024 Orders Only [facility] Radiology 1 [facility] [place] [address] Ruth Mehta, SAURAV 02/20/2024 Telephone [facility] Transplant Kidney [address] Mailstop [phone] [place] [address] Julia Javier, SAURAV After Hours 02/19/2024 8:00 AM HEAVY MOBILE EQUIPMENT REPAIRER Home Care Visit [address] [place] [address] Dayton Tate, SAURAV SN HOME VISIT 02/19/2024 Telephone [facility] Transplant Kidney [address] Mailstop [phone] [place] [address] Shama Antunez, SAURAV 02/18/2024 Telephone [facility] Transplant Kidney [address] Mail[address] [phone] [place] [address] Shama Antunez, SAURAV 02/17/2024 4:00 PM HEAVY MOBILE EQUIPMENT REPAIRER Office Visit [facility] Cardiology [facility] 8th [place] [address] [place] [address] Marian Merino MD Coronary artery disease involving torres martinez coronary artery of torres martinez heart without angina pectoris (Primary Dx); Atrial fibrillation, unspecified type (HCC); Essential hypertension; Mixed hyperlipidemia; Abnormal echocardiogram 02/17/2024 11:30 AM HEAVY MOBILE EQUIPMENT REPAIRER Lab [facility]) [address] [place] [phone] Kidney replaced by transplant 02/17/2024 10:11 AM HEAVY MOBILE EQUIPMENT REPAIRER - 02/17/2024 11:59 PM HEAVY MOBILE EQUIPMENT REPAIRER Hospital Encounter [facility] [address] [place] [address] Ayush Galvez MD Swelling abdomen Discharge Disposition: Discharge to home or self care 02/17/2024 9:40 AM HEAVY MOBILE EQUIPMENT REPAIRER Office Visit [facility] - [facility] Urology [address] [facility] 11th [place] [address] [place] [address] Darshan Noriega MD -donor kidney transplant recipient (Primary Dx); Encounter for removal of ureteral stent 02/17/2024 Orders Only [facility] Surgery [address] [facility] 12th [place] [address] [place] [address] Monster Harding MD 02/17/2024 Telephone Radiology 1 [place] [address] Ayo Sharpe MD PhD 02/17/2024 Orders Only [address] [phone] Susi Nuñez PA Abdominal fluid collection (Primary Dx) 02/17/2024 Telephone [facility] Transplant Kidney [address] Mailstop [phone] [place] [address] Shama Antunez RN 02/16/2024 8:15 AM HEAVY MOBILE EQUIPMENT REPAIRER Home Care Visit [address] [place] [address] Dayton Tate RN SN HOME VISIT 02/16/2024 Orders Only [facility] Transplant Kidney [address] Mailstop [phone] [place] [address] Carolina Ramires Kidney replaced by transplant (Primary Dx); Encounter for long-term (current) use of medications; Hyperlipidemia, unspecified hyperlipidemia type 02/16/2024 Telephone [facility] Transplant Kidney [address] Mailstop [phone] [place] [address] Shama Antunez RN 02/16/2024 Telephone [facility] Transplant Kidney [address] [facility] [address] Mailstop [phone] [place] [address] Shama Antunez, SAURAV 02/16/2024 Telephone [facility] Transplant Kidney [address] [facility] [address] Mailstop [phone] [place] [address] Shama Antunez, RN 02/16/2024 Telephone [facility] Transplant Kidney [address] [facility] [address] Mailstop [phone] [place] [address] Shama Antunez, SAURAV 02/11/2024 9:00 AM HEAVY MOBILE EQUIPMENT REPAIRER - 02/11/2024 11:59 PM HEAVY MOBILE EQUIPMENT REPAIRER Hospital Encounter [address] [address] Discharge Disposition: Discharge to home or self care 02/11/2024 8:30 AM HEAVY MOBILE EQUIPMENT REPAIRER Home Care Visit [place] [address] [address] [place] [address] Dayton Tate RN SN HOME VISIT 02/09/2024 2:45 PM HEAVY MOBILE EQUIPMENT REPAIRER Office Visit [facility] Nephrology [address] [place] [address] [facility] 5th [place] [address] [place] [address] Aurea Fine NP 02/09/2024 2:40 PM HEAVY MOBILE EQUIPMENT REPAIRER - 02/09/2024 11:59 PM HEAVY MOBILE EQUIPMENT REPAIRER Hospital Encounter [facility] [address] [place] [address] Kidney transplanted Discharge Disposition: Discharge to home or self care 02/09/2024 1:00 PM HEAVY MOBILE EQUIPMENT REPAIRER Office Visit [facility] Surgery [address] [facility] 12th [place] [address] [place] [address] Aurea Hameed PA Kidney transplanted (Primary Dx) 02/09/2024 9:00 AM HEAVY MOBILE EQUIPMENT REPAIRER - 02/09/2024 11:59 PM HEAVY MOBILE EQUIPMENT REPAIRER Hospital Encounter [address] [address] Kidney transplanted Discharge Disposition: Discharge to home or self care 02/09/2024 8:30 AM HEAVY MOBILE EQUIPMENT REPAIRER Home Care Visit [address] [place] [address] Dayton Tate, SAURAV SN HOME VISIT 02/09/2024 Telephone [facility] Transplant Kidney [address] Mailstop [phone] [place] [address] Mervat Yeung, SAURAV After Hours 02/09/2024 Telephone [facility] Transplant Kidney [address] Mailstop [phone] [place] [address] Shama Antunez, SAURAV 02/09/2024 Telephone [facility] Transplant Kidney [address] Mailstop [phone] [place] [address] Shama Antunez RN 02/09/2024 Home Care Visit [address] [place] [address] [address] [place] [address] Tanya Savage, PT CASE COMMUNICATION 02/08/2024 3:15 PM HEAVY MOBILE EQUIPMENT REPAIRER Office Visit [facility] [address] [place] [phone] Gamaliel Evans MD Type 2 diabetes mellitus with chronic kidney disease on chronic dialysis, with long-term current use of insulin (HCC) (Primary Dx); Primary hypothyroidism; Mixed hyperlipidemia; Coronary artery disease involving torres martinez coronary artery of torres martinez heart without angina pectoris; -donor kidney transplant recipient; Atrial fibrillation, unspecified type (HCC) 02/08/2024 2:00 PM HEAVY MOBILE EQUIPMENT REPAIRER Clinical Support [facility] [address] [place] [phone] Type 2 diabetes mellitus with chronic kidney disease on chronic dialysis, with long-term current use of insulin (HCC) (Primary Dx) 02/08/2024 Telephone [facility] Transplant Kidney [address] Mailstop [phone] [place] [address] Shama Antunez, SAURAV 02/05/2024 Telephone [facility] Transplant Kidney [address] [facility] [address] Mailstop 84-01-244 [place] [address] Shama Antunez, SAURAV 02/04/2024 1:45 PM HEAVY MOBILE EQUIPMENT REPAIRER Home Care Visit [address] [place] [address] Tanya Savage, PT PT INITIAL EVALUATION 02/04/2024 10:00 AM HEAVY MOBILE EQUIPMENT REPAIRER - 02/04/2024 11:59 PM HEAVY MOBILE EQUIPMENT REPAIRER Hospital Encounter [address] [address] Discharge Disposition: Discharge to home or self care 02/04/2024 8:00 AM HEAVY MOBILE EQUIPMENT REPAIRER Home Care Visit [address] [place] [address] [address] [place] [address] Galilea Noguera, SAURAV SN HOME VISIT 02/03/2024 Telephone [facility] Transplant Kidney [address] Mailstop [phone] [place] [address] Shama Antunez, SAURAV 02/03/2024 Orders Only [facility] Transplant Kidney [address] Mailstop [phone] [place] [address] Shama Antunez, SAURAV Kidney replaced by transplant (Primary Dx) 02/02/2024 9:30 AM HEAVY MOBILE EQUIPMENT REPAIRER Home Care Visit [address] [place] [address] Dayton Tate, SAURAV SN OASIS START OF CARE 02/02/2024 9:00 AM HEAVY MOBILE EQUIPMENT REPAIRER - 02/02/2024 11:59 PM HEAVY MOBILE EQUIPMENT REPAIRER Hospital Encounter [address] [address] Discharge Disposition: Discharge to home or self care 02/02/2024 Plan of Care Documentation [facility] - [address] [place] [address] 02/02/2024 Telephone [facility] Transplant Kidney [address] Mailstop 42-30-124 [place] [address] Shama Antunez RN 02/01/2024 Telephone [facility] Transplant Kidney [address] Mailstop 38-03-629 [place] [address] Sofia Tineo 01/26/2024 Orders Only [facility] Transplant Kidney [address] Mailstop [phone] [place] [address] Michelle Bowman RN 01/22/2024 10:05 AM HEAVY MOBILE EQUIPMENT REPAIRER - 01/22/2024 12:25 PM HEAVY MOBILE EQUIPMENT REPAIRER Surgery [facility] [address] [place] [phone] Ayush Galvez MD RE-EXPLORATION KIDNEY TRANSPLANT 01/22/2024 9:13 AM HEAVY MOBILE EQUIPMENT REPAIRER Anesthesia Event [facility] [address] [place] [address] Mathieu Beaver MD Jablonski, Melody A., NP 01/22/2024 Orders Only [facility] Transplant Kidney [address] [facility] [address] Mailstop [phone] [place] [address] Milly Polanco Inconclusive laboratory evidence of human immunodeficiency virus (HIV) (Primary Dx); Aftercare following organ transplant; History of kidney transplant 01/22/2024 Telephone [facility] Cardiology [address] [facility] 8th [place] [address] [place] [phone] Ebony Juárez 01/22/2024 Telephone [facility] Transplant Kidney [address] Mailstop 18-00-902 [place] [address] Carolyn Siddiqui 01/21/2024 Telephone [facility] Transplant Kidney [address] [facility] [address] Mailstop 60-87-332 [place] [address] Lynne Davies RN Waitlist Maintenance 01/21/2024 Documentation [facility] Transplant Kidney [address] [facility] [address] Mailstop 78-05-507 [place] [address] Savanna Mabry 01/20/2024 12:47 PM HEAVY MOBILE EQUIPMENT REPAIRER Anesthesia Event [facility] [address] [place] [phone] Roscoe Sandhu MD Nizam, Rasheeq Rahman, MD 01/20/2024 11:50 AM HEAVY MOBILE EQUIPMENT REPAIRER - 01/20/2024 4:55 PM HEAVY MOBILE EQUIPMENT REPAIRER Surgery [facility] [address] [place] [phone] Ayush Galvez MD TRANSPLANT KIDNEY UNOS:[id number] OPO:[id number] [[id number]] 01/20/2024 Telephone [facility] Transplant Kidney [address] [facility] [address] Mailop [phone] [place] [address] Mirian Villanueva RN Waitlist Maintenance (/) 01/20/2024 Orders Only [facility] Transplant Kidney [address] Mailstop [phone] [place] [address] Michelle Bowman, SAURAV 01/19/2024 Documentation [facility] [address] [facility] [address] [place] [phone] Jess Strauss RPh 01/18/2024 10:11 PM HEAVY MOBILE EQUIPMENT REPAIRER - 01/28/2024 7:20 PM HEAVY MOBILE EQUIPMENT REPAIRER Hospital Encounter [address] [phone] Larry Travis MD Wellen, Jason Reid, MD -donor kidney transplant recipient (Primary Dx); Steroid-induced hyperglycemia; Coronary artery disease involving torres martinez coronary artery of torres martinez heart without angina pectoris; Atrial fibrillation, unspecified type (HCC) Discharge Disposition: Discharge to home, home health skilled care 01/18/2024 Orders Only [facility] Surgeon [address] [place] [address] Arya Dolan MD 01/18/2024 Telephone [facility] Transplant Kidney [address] Mailstop [phone] [place] [address] Mervat Yeung, SAURAV Organ Offer Follow-up 01/18/2024 Telephone [facility] Transplant Kidney [address] Mailstop [phone] [place] [address] Mervat Yeung, assembler radio and electrical Organ Offer 01/18/2024 Orders Only [facility] Transplant Liver [address] Mailstop [phone] [place] [address] Rosalie Velásquez NP from Last 3 Months Immunizations Immunization Administration Dates Next Due Hep B Vaccine 10/17/2019,06/20/2019,05/16/2019 Hep B, Unspecified 04/18/2019, 9,01/17/2019,08/16,07/19/2018 Influenza, Quadrivalent, Spl it, Preservative Free, Intramuscular 12/22/2016 Influenza, Trivalent, IM (MDV) 11/08/2012 Influenza, Unspecified 12/26/2020 Timbo (J&J) SARS-CoV-2 Vaccination 04/30/2020 Pneumococcal Conjugate PCV 13 03/02/2015 Pneumococcal Polysaccharide PPV23 04/04/2020,10/2012 Surgical History Surgery Date Site/Laterality Comments SHOULDER SURGERY Shoulder Surgery - (Added by TW Conv) KNEE SURGERY Left Knee Surgery - (Added by Conv) [place] ARTHROSCOPY ELBOW DIAG W/ WO SYNOVIAL BIOPSY SPX Left Arthroscopy Elbow - (Added by Conv) CORONARY ANGIOPLASTY WITH ST ENT PLACEMENT Cath Stent Placement Number Of Stents Placed: - (Added by TW Conv) CARPAL TUNNEL RELEASE Bilateral TUMOR REMOVAL JAW ROTATOR CUFF REPAIR Right ANAL FISSURECTOMY AV FISTULA PLACEMENT Left CENTRAL LINE PLACEMENT > 5 YEARS 01/25/2024 N/A FLUID DRAIN SOFT TISSUE 02/22/2024 N/A ABSCESS CATHETER INJECTION 03/08/2024 N/A ABSCESS CATHETER INJECTION 03/22/2024 N/A Medical History Medical History Date Comments CAD (coronary artery disease) RI (myocardial infarction) (HCC) Arthritis Anemia Hyperlipidemia Type 2 diabetes mellitus (HCC) Hemodialysis patient (CMS/HCC) (HCC) ORIANA (obstructive sleep apnea) CP AP Hypertension CKD (chronic kidney disease) hem odialysis Hypothyroidism Diabetic retinopathy (HCC) Diabetic neuropathy (HCC) bilate ral feet Family History Medical History Relation Name Comments Diabetes Father Family history of diabetes mellitus - (Added by TW Conv) Heart attack Father Heart disease Father Diabetes Mother Family history of diabetes mellitus - (Added by TW Conv) Diabetes Other Family history of diabetes mellitus - (Added by TW Conv) Anesthesia problems Neg Hx Relation Name Status Comments Father Mother Other Social History Tobacco Use Types Packs/Day Years Used Date Smoking Tobacco: Former Cigarettes 1.5 44.9 1 974 - 01/29/2018 Smokeless Tobacco: Never Tobacco Cessation:Counseling Given: Not Answered Comments:1 pack per week Alcohol Use Standard Drinks/Week Comments No 0 (1 standard drink = 0.6 oz pur e alcohol) no longer drinks OASIS D0700: Social Isolation Answer Da te Recorded Frequency of experiencing loneliness or isolatio n Never 03/08/2024 OASIS A1250: Transportation Answer Date Recorded Lack of Transportation (Medical) No 03/08/2024 Lack of Transportation (Non-Medical) No 03/08/2024 Patient Unable or Declines to Respond No 03/08/2024 OASIS B1300: Health Literacy Answer Ramesh e Recorded Frequency of needing help to read materials from doctor or pharmacy Never 03/08/2024 [facility] Utilities Answer Date Recorded In the past 12 months has th e [employer], gas, oil, or water [employer] threatened to shut off services in your home? No 02/22/2024 Social Connection and Isolat ion Panel [NHANES] Answer Date Recorded In a typical week, how many times do you talk on the phone with family, friends, or neighbors? More than three times a week 02/22/2024 How often do you get togethe r with friends or relatives? More than three times a week 02/22/2024 How often do you attend chur ch or christian services? Never 02/22/2024 Do you belong to any clubs o r organizations such as pentecostal groups, unions, fraternal or athletic groups, or school groups? No 02/22/2024 How often do you attend meet ings of the clubs or organizations you belong to? Never 02/22/2024 Are you , , di vorced, , never , or living with a partner? 02/22/2024 AUDIT-C Answer Date Recorded Q1: How often do you have a drink containing alcohol? Never 03/22/2024 Q2: How many drinks containi ng alcohol do you have on a typical day when you are drinking? Patient does not drink Q3: How often do you have si x or more drinks on one occasion? Never 03/22/2024 Overall Financial Resource Strain (CARDIA) Answe r Date Recorded How hard is it for you to pa y for the very basics like food, housing, medical care, and heating? Not very hard 02/22/2024 PHQ-2 Answer Date Recorded PHQ-2 Total Score 0 02/22/2024 Hunger Vital Sign Answer Date Recorded Within the past 12 months, y ou worried that your food would run out before you got the money to buy more. Never true 02/22/20 24 Within the past 12 months, t he food you bought just didn't last and you didn't have money to get more. Never true 02/22/2024 PRAPARE - Transportation Answer Date Re corded In the past 12 months, has l ack of transportation kept you from medical appointments or from getting medications? No 01/31 In the past 12 months, has l ack of transportation kept you from meetings, work, or from getting things needed for daily living? No 02/22/2024 Housing Stability Vital Sign Answer Ramesh e Recorded In the last 12 months, was t here a time when you were not able to pay the mortgage or rent on time? No 03/25/2023 In the last 12 months, how many places have you lived? 1 03/25/2023 In the last 12 months, was t here a time when you did not have a steady place to sleep or slept in a intermediate (including now)? No 03/25/2023 Housing Stability Vital Sign Answer Ramesh e Recorded In the last 12 months, was t here a time when you were not able to pay the mortgage or rent on time? No 02/22/2024 In the past 12 months, how m any times have you moved where you were living? 0 02/22/2024 At any time in the [facility], were you homeless or living in a intermediate (including now)? No 02/22/2024 Personal Safety Answer Date Recorded Have you ever been in or are you currently in a harmful physical or emotional relationship or is someone making you feel afraid or unsafe? Denies 03/22/2024 Education Answer Date Recorded What is the highest level of school you have completed or the highest degree you have received? High school graduate 03/25/2023 Sex and Gender Information Value Date Recorded Sex Assigned at Not on file Legal Sex Male 3:24 AM HEAVY MOBILE EQUIPMENT REPAIRER Gender Identity Male 11/30/2017 3:03 PM CDT Sexual Orientation Straight 06/05/2020 6: 53 AM CDT Obstetrics History Last Filed Vital Signs Vital Sign Reading Time Taken Comments Blood Pressure 127/67 04/06/2024 12:54 PM HEAVY MOBILE EQUIPMENT REPAIRER Pulse 74 04/06/2024 12:54 PM HEAVY MOBILE EQUIPMENT REPAIRER Temperature 36.6 C (97.8 F) 04/06/2024 10:21 AM HEAVY MOBILE EQUIPMENT REPAIRER Respiratory Rate 16 03/22/2024 10:08 AM HEAVY MOBILE EQUIPMENT REPAIRER Oxygen Saturation 94% 04/06/2024 12:54 PM HEAVY MOBILE EQUIPMENT REPAIRER Inhaled Oxygen Concentration - - Weight 117.9 kg (260 lb) 04/06/2024 12:54 PM HEAVY MOBILE EQUIPMENT REPAIRER Height 190.5 cm (6' 3 ) 04/06/2024 12:54 PM HEAVY MOBILE EQUIPMENT REPAIRER Body Mass Index 32.5 04/06/2024 12:54 PM HEAVY MOBILE EQUIPMENT REPAIRER Plan of Treatment Health Maintenance Due Date Last Done Comments Albumin Creatinine Ratio, Urine 1958 Colon Cancer Screening-Colonoscopy 1960 Dilated Eye Exam 1958 Foot Exam 1958 DTaP/Tdap/Td Vaccine (1 - Tdap) 1969 Zoster Vaccine (1 of 2) 1977 Well Visit 65+ 06/19/2023 Covid-19 Vaccine (3 - 2024-2 5 season) 2023 05/24/2020, 04/30/2020 Hemoglobin A1C 07/17/2024 01/18/2024, 12/01, 09/17/2023, Additional history exists Lung Cancer Screening 01/13/2025 01/13/2024 , 10/20/2023, 09/27/2022, Additional history exists Depression Screening 02/16/2025 02/17/2024 Lipid Panel 03/15/2025 03/15/2024, 01/31, 01/18/2024, Additional history exists Fall Risk Assessment 03/22/2025 03/22/2024 Pneumococcal vaccine 65+ (4 of 4 - PCV20 or PCV21) 04/04/2025 04/04/2020, 03/02/2015, 11/08/2012 eGFR 04/19/2025 04/19/2024, 05/2024, 04/05/2024, Additional history exists Prostate Cancer Screening-PSA 09/16/2025, 12/09/2022, 07/12/2020 Influenza Vaccine Completed 12/09/2023, , 12/26/2020, Additional history exists Hepatitis B Screening Completed 01/18/2024 , 10/15/2023, 10/17/2019, Additional history exists Hepatitis C Screening Completed 02/17/2024 , 01/18/2024, 01/18/2024, Additional history exists Abdominal Aortic Aneurysm (A AA) Screen Completed 02/23/2024, 02/17/2024, 02/09/2024, Additional history exists Medical Devices Implanted Type Area Obstetric Anaesthetist Device Identifier Shelf Expiration Date Model / Serial / Lot [employer] Tracee Angio-Seal Vip 6fr Closere Device [id number] - [id number] Implanted:Qty: 1 on 07/30/2023 by Chino Saleh MD at [facility] Other - see comments [employer] Trace[employer] 04/01/2024 [id number] / / [id number] Stents-02/05/2007 Implanted:Qty: 2 on 02/05/2007 N/A: Heart Description: [id number] [id number] Sternalock Uday 8 Hole Sternum Plate Bone 2.4 Mm Screw - [id number] Implanted:Qty: 3 on 11/26/2020 by Carmen Aparicio MD at [facility] N/A: Sternum [employer] [id number] / / Bi[employer] 73-2416 Sternalock Uday 2.4mm 16mm Self Drill Lock Sternum Cancellous - [id number] Implanted:Qty: 16 on 11/26/2020 by Carmen Aparicio MD at [facility] N/A: Sternum [employer] [id number] / / Bi[employer] 73-2418 Sternalock Uday 2.4mm 18mm Self Drill Lock Sternum Cancellous - [id number] Implanted:Qty: 4 on 11/26/2020 by Carmen Aparicio MD at [facility] N/A: Sternum [employer] [id number] / / Bi[employer] 73-2420 Sternalock Uday 2.4mm 20mm Self Drill Lock Sternum Cancellous - [id number] Implanted:Qty: 4 on 11/26/2020 by Carmen Aparicio MD at [facility] N/A: Sternum [employer] 73-2420 / / Explanted Type Area Obstetric Anaesthetist Device Identifier Shelf Expiration Date Model / Serial / Lot Consult [employer] Stent Ureteral Set Double Pigtail Radiopaque Tip [employer] [id number] Polyurethane Hydrophilic Coated [id number] - [id number] Implanted:Qty: 1 on 01/20/2024 by Ayush Galvez MD at [facility] Explanted:Qty: 1 on 03/10/2024 by Roscoe Peck MD Stent Right: Transplanted Ureter [employer] [id number] 10/25/2026 [id number] / / [id number] Procedures Procedure Name Priority Date/Time Associated Diagnosis Comments EGFR Routine 04/19/2024 10:42 AM HEAVY MOBILE EQUIPMENT REPAIRER Kidney replaced by transplant DIFFERENTIAL AUTO Routine 04/19/2024 10:42 AM HEAVY MOBILE EQUIPMENT REPAIRER Kidney replaced by transplant CBC WITH AUTO DIFFERENTIAL Routine 04/19/2024 10:42 AM HEAVY MOBILE EQUIPMENT REPAIRER Kidney replaced by transplant RENAL FUNCTION PANEL Routine 04/19/2024 10:42 AM HEAVY MOBILE EQUIPMENT REPAIRER Kidney replaced by transplant DIFFERENTIAL AUTO Routine 04/06/2024 11:42 AM HEAVY MOBILE EQUIPMENT REPAIRER Encounter for aftercare following kidney transplant CBC WITH AUTO DIFFERENTIAL Routine 04/06/2024 11:42 AM HEAVY MOBILE EQUIPMENT REPAIRER Encounter for aftercare following kidney transplant RESPIRATORY PATHOGEN PANEL Routine 04/06/2024 11:41 AM HEAVY MOBILE EQUIPMENT REPAIRER Encounter for aftercare following kidney transplant XR CHEST PA LATERAL 2 VIEWS Schedule Routine, Read Routine (OP Routine) 04/06/2024 11:28 AM HEAVY MOBILE EQUIPMENT REPAIRER Shortness of breath POCT URINALYSIS DIPSTICK Routine 04/06/2024 10:35 AM HEAVY MOBILE EQUIPMENT REPAIRER Encounter for aftercare following kidney transplant BK VIRUS, DNA, QUANTITATIVE Routine 04/05/2024 9:00 AM HEAVY MOBILE EQUIPMENT REPAIRER Kidney replaced by transplant TACROLIMUS LEVEL, TROUGH Routine 04/05/2024 8:59 AM HEAVY MOBILE EQUIPMENT REPAIRER Kidney replaced by transplant Encounter for long-term (current) use of medications RENAL FUNCTION PANEL Routine 04/05/2024 8:58 AM HEAVY MOBILE EQUIPMENT REPAIRER Kidney replaced by transplant RENAL FUNCTION PANEL Routine 04/05/2024 8:57 AM HEAVY MOBILE EQUIPMENT REPAIRER Kidney replaced by transplant BK VIRUS, DNA, QUANTITATIVE Routine 03/29/2024 11:28 AM HEAVY MOBILE EQUIPMENT REPAIRER Kidney replaced by transplant TACROLIMUS LEVEL, TROUGH Routine 03/29/2024 11:27 AM HEAVY MOBILE EQUIPMENT REPAIRER Kidney replaced by transplant Encounter for long-term (current) use of medications CBC WITH AUTO DIFFERENTIAL Routine 03/29/2024 11:26 AM HEAVY MOBILE EQUIPMENT REPAIRER Kidney replaced by transplant RENAL FUNCTION PANEL Routine 03/29/2024 11:25 AM HEAVY MOBILE EQUIPMENT REPAIRER Kidney replaced by transplant BK VIRUS, DNA, QUANTITATIVE Routine 03/23/2024 12:07 PM HEAVY MOBILE EQUIPMENT REPAIRER Kidney replaced by transplant TACROLIMUS LEVEL, TROUGH Routine 03/23/2024 12:06 PM HEAVY MOBILE EQUIPMENT REPAIRER Kidney replaced by transplant Encounter for long-term (current) use of medications CBC WITH AUTO DIFFERENTIAL Routine 03/23/2024 12:05 PM HEAVY MOBILE EQUIPMENT REPAIRER Kidney replaced by transplant RENAL FUNCTION PANEL Routine 03/23/2024 12:04 PM HEAVY MOBILE EQUIPMENT REPAIRER Kidney replaced by transplant ABSCESS CATHETER INJECTION Schedule Routine, Read Routine (OP Routine) 03/22/2024 10:05 AM HEAVY MOBILE EQUIPMENT REPAIRER Perinephric fluid collection LIPID PANEL Routine 03/15/2024 9:49 AM HEAVY MOBILE EQUIPMENT REPAIRER Kidney replaced by transplant Hyperlipidemia, unspecified hyperlipidemia type HEPATIC FUNCTION PANEL Routine 03/15/2024 9:48 AM HEAVY MOBILE EQUIPMENT REPAIRER Kidney replaced by transplant BK VIRUS, DNA, QUANTITATIVE Routine 03/15/2024 9:48 AM HEAVY MOBILE EQUIPMENT REPAIRER Kidney replaced by transplant TACROLIMUS LEVEL, TROUGH Routine 03/15/2024 9:47 AM HEAVY MOBILE EQUIPMENT REPAIRER Kidney replaced by transplant Encounter for long-term (current) use of medications CBC WITH AUTO DIFFERENTIAL Routine 03/15/2024 9:47 AM HEAVY MOBILE EQUIPMENT REPAIRER Kidney replaced by transplant RENAL FUNCTION PANEL Routine 03/15/2024 9:46 AM HEAVY MOBILE EQUIPMENT REPAIRER Kidney replaced by transplant POCT URINALYSIS DIPSTICK Routine 03/10/2024 8:47 AM HEAVY MOBILE EQUIPMENT REPAIRER Encounter for removal of ureteral stent EGFR Routine 03/10/2024 8:21 AM HEAVY MOBILE EQUIPMENT REPAIRER Kidney replaced by transplant DIFFERENTIAL AUTO Routine 03/10/2024 8:2 1 AM HEAVY MOBILE EQUIPMENT REPAIRER Kidney replaced by transplant RENAL FUNCTION PANEL Routine 03/10/2024 8:21 AM HEAVY MOBILE EQUIPMENT REPAIRER Kidney replaced by transplant CBC WITH AUTO DIFFERENTIAL Routine 03/10/2024 8:21 AM HEAVY MOBILE EQUIPMENT REPAIRER Kidney replaced by transplant TACROLIMUS LEVEL, RANDOM Routine 03/10/2024 8:21 AM HEAVY MOBILE EQUIPMENT REPAIRER Kidney replaced by transplant MAGNESIUM Routine 03/10/2024 8:21 AM HEAVY MOBILE EQUIPMENT REPAIRER Kidney replaced by transplant BK VIRUS PCR QUANTITATIVE Routine 03/10/2024 8:21 AM HEAVY MOBILE EQUIPMENT REPAIRER Kidney replaced by transplant PET STRESS TEST Schedule Routine, Read Routine (OP Routine) 03/08/2024 3:12 PM HEAVY MOBILE EQUIPMENT REPAIRER Coronary artery disease involving torres martinez coronary artery of torres martinez heart without angina pectoris PET/CT MYOCARDIAL PERFUSION IMAGING (MULTIPLE) Schedule Routine, Read Routine (OP Routine) 03/08/2024 3:12 PM HEAVY MOBILE EQUIPMENT REPAIRER Coronary artery disease involving torres martinez coronary artery of torres martinez heart without angina pectoris ABSCESS CATHETER INJECTION Schedule Routine, Read Routine (OP Routine) 03/08/2024 11:02 AM HEAVY MOBILE EQUIPMENT REPAIRER Perinephric fluid collection EGFR STAT 03/03/2024 9:40 AM HEAVY MOBILE EQUIPMENT REPAIRER DIFFERENTIAL AUTO STAT 03/03/2024 9:4 0 AM HEAVY MOBILE EQUIPMENT REPAIRER TACROLIMUS LEVEL, TROUGH STAT 03/03/2024 9:40 AM HEAVY MOBILE EQUIPMENT REPAIRER MAGNESIUM STAT 03/03/2024 9:40 AM HEAVY MOBILE EQUIPMENT REPAIRER CBC WITH AUTO DIFFERENTIAL STAT 03/03/2024 9:40 AM HEAVY MOBILE EQUIPMENT REPAIRER RENAL FUNCTION PANEL STAT 03/03/2024 9:40 AM HEAVY MOBILE EQUIPMENT REPAIRER EGFR Routine 03/01/2024 8:00 AM HEAVY MOBILE EQUIPMENT REPAIRER RENAL FUNCTION PANEL Routine 03/01/2024 8:00 AM HEAVY MOBILE EQUIPMENT REPAIRER DIFFERENTIAL AUTO Routine 03/01/2024 8:0 0 AM HEAVY MOBILE EQUIPMENT REPAIRER TACROLIMUS LEVEL, TROUGH Routine 03/01/2024 8:00 AM HEAVY MOBILE EQUIPMENT REPAIRER MAGNESIUM Routine 03/01/2024 8:00 AM HEAVY MOBILE EQUIPMENT REPAIRER CBC WITH AUTO DIFFERENTIAL Routine 03/01/2024 8:00 AM HEAVY MOBILE EQUIPMENT REPAIRER HEPATIC FUNCTION PANEL Routine 02/26/2024 8:59 AM HEAVY MOBILE EQUIPMENT REPAIRER Kidney replaced by transplant LIPID PANEL Routine 02/26/2024 8:59 AM HEAVY MOBILE EQUIPMENT REPAIRER Kidney replaced by transplant Hyperlipidemia, unspecified hyperlipidemia type TACROLIMUS LEVEL, TROUGH Routine 02/26/2024 8:59 AM HEAVY MOBILE EQUIPMENT REPAIRER Kidney replaced by transplant Encounter for long-term (current) use of medications RENAL FUNCTION PANEL Routine 02/26/2024 8:59 AM HEAVY MOBILE EQUIPMENT REPAIRER Kidney replaced by transplant CBC WITH AUTO DIFFERENTIAL Routine 02/26/2024 8:59 AM HEAVY MOBILE EQUIPMENT REPAIRER Kidney replaced by transplant BK VIRUS, DNA, QUANTITATIVE Routine 02/26/2024 8:59 AM HEAVY MOBILE EQUIPMENT REPAIRER Kidney replaced by transplant POCT GLUCOSE DEVICE Routine 02/23/2024 11:43 AM HEAVY MOBILE EQUIPMENT REPAIRER POCT GLUCOSE DEVICE Routine 02/23/2024 8 :21 AM HEAVY MOBILE EQUIPMENT REPAIRER POTASSIUM, WHOLE BLOOD STAT 02/23/2024 6:38 AM HEAVY MOBILE EQUIPMENT REPAIRER ECG 12-LEAD STAT 02/23/2024 6:30 AM HEAVY MOBILE EQUIPMENT REPAIRER CT ABDOMEN PELVIS WO CONTRAST IP Routine 02/23/2024 5:21 AM HEAVY MOBILE EQUIPMENT REPAIRER EGFR Routine 02/23/2024 4:37 AM HEAVY MOBILE EQUIPMENT REPAIRER DIFFERENTIAL AUTO Routine 02/23/2024 4:3 7 AM HEAVY MOBILE EQUIPMENT REPAIRER RENAL FUNCTION PANEL Routine 02/23/2024 4:37 AM HEAVY MOBILE EQUIPMENT REPAIRER CBC WITH AUTO DIFFERENTIAL Routine 02/23/2024 4:37 AM HEAVY MOBILE EQUIPMENT REPAIRER MAGNESIUM Routine 02/23/2024 4:37 AM HEAVY MOBILE EQUIPMENT REPAIRER TACROLIMUS LEVEL, TROUGH Routine 02/23/2024 4:37 AM HEAVY MOBILE EQUIPMENT REPAIRER POCT GLUCOSE DEVICE Routine 02/22/2024 9 :35 PM HEAVY MOBILE EQUIPMENT REPAIRER POCT GLUCOSE DEVICE Routine 02/22/2024 5 :37 PM HEAVY MOBILE EQUIPMENT REPAIRER CELL DIFFERENTIAL, BODY FLUID Routine 02/22/2024 2:26 PM HEAVY MOBILE EQUIPMENT REPAIRER CELL DIFFERENTIAL, BODY FLUID Routine 02/22/2024 2:26 PM HEAVY MOBILE EQUIPMENT REPAIRER CELL COUNT W/REFLEX DIFFERENTIAL, BODY FLUID Routine 02/22/2024 2:26 PM HEAVY MOBILE EQUIPMENT REPAIRER CREATININE, BODY FLUID Routine 02/22/2024 2:26 PM HEAVY MOBILE EQUIPMENT REPAIRER CELL COUNT W/REFLEX DIFFERENTIAL, BODY FLUID Routine 02/22/2024 2:26 PM HEAVY MOBILE EQUIPMENT REPAIRER AEROBIC AND ANAEROBIC CULTURE AND GRAM STAIN Routine 02/22/2024 2:26 PM HEAVY MOBILE EQUIPMENT REPAIRER AEROBIC AND ANAEROBIC CULTURE AND GRAM STAIN Routine 02/22/2024 2:26 PM HEAVY MOBILE EQUIPMENT REPAIRER CREATININE, BODY FLUID Routine 02/22/2024 2:19 PM HEAVY MOBILE EQUIPMENT REPAIRER POCT GLUCOSE DEVICE Routine 02/22/2024 1 :48 PM HEAVY MOBILE EQUIPMENT REPAIRER FLUID DRAIN SOFT TISSUE IP Routine 02/22/2024 1:14 PM HEAVY MOBILE EQUIPMENT REPAIRER CELL DIFFERENTIAL, BODY FLUID Routine 02/22/2024 12:50 PM HEAVY MOBILE EQUIPMENT REPAIRER CELL COUNT W/REFLEX DIFFERENTIAL, BODY FLUID Routine 02/22/2024 12:50 PM HEAVY MOBILE EQUIPMENT REPAIRER CREATININE, BODY FLUID Routine 02/22/2024 12:50 PM HEAVY MOBILE EQUIPMENT REPAIRER POCT GLUCOSE DEVICE Routine 02/22/2024 6 :27 AM HEAVY MOBILE EQUIPMENT REPAIRER POTASSIUM, WHOLE BLOOD STAT 02/22/2024 6:27 AM HEAVY MOBILE EQUIPMENT REPAIRER EGFR Routine 02/22/2024 4:38 AM HEAVY MOBILE EQUIPMENT REPAIRER DIFFERENTIAL AUTO Routine 02/22/2024 4:3 8 AM HEAVY MOBILE EQUIPMENT REPAIRER RENAL FUNCTION PANEL Routine 02/22/2024 4:38 AM HEAVY MOBILE EQUIPMENT REPAIRER CBC WITH AUTO DIFFERENTIAL Routine 02/22/2024 4:38 AM HEAVY MOBILE EQUIPMENT REPAIRER MAGNESIUM Routine 02/22/2024 4:38 AM HEAVY MOBILE EQUIPMENT REPAIRER TACROLIMUS LEVEL, TROUGH Routine 02/22/2024 4:38 AM HEAVY MOBILE EQUIPMENT REPAIRER POCT GLUCOSE DEVICE Routine 02/21/2024 8 :49 PM HEAVY MOBILE EQUIPMENT REPAIRER POCT GLUCOSE DEVICE Routine 02/21/2024 5 :26 PM HEAVY MOBILE EQUIPMENT REPAIRER POCT GLUCOSE DEVICE Routine 02/21/2024 2 :08 PM HEAVY MOBILE EQUIPMENT REPAIRER EGFR STAT 02/21/2024 2:06 PM HEAVY MOBILE EQUIPMENT REPAIRER DIFFERENTIAL AUTO STAT 02/21/2024 2:0 6 PM HEAVY MOBILE EQUIPMENT REPAIRER RENAL FUNCTION PANEL STAT 02/21/2024 2:06 PM HEAVY MOBILE EQUIPMENT REPAIRER PROTIME-INR STAT 02/21/2024 2:06 PM HEAVY MOBILE EQUIPMENT REPAIRER MAGNESIUM STAT 02/21/2024 2:06 PM HEAVY MOBILE EQUIPMENT REPAIRER CBC WITH AUTO DIFFERENTIAL STAT 02/21/2024 2:06 PM HEAVY MOBILE EQUIPMENT REPAIRER ECG 12-LEAD Routine 02/17/2024 4:29 PM HEAVY MOBILE EQUIPMENT REPAIRER Atrial fibrillation, unspecified type (HCC) CT ABDOMEN PELVIS WO CONTRAST Urgent 02/17/2024 11:48 AM HEAVY MOBILE EQUIPMENT REPAIRER Swelling abdomen EGFR Routine 02/17/2024 10:25 AM HEAVY MOBILE EQUIPMENT REPAIRER Kidney replaced by transplant DIFFERENTIAL AUTO Routine 02/17/2024 10:25 AM HEAVY MOBILE EQUIPMENT REPAIRER Kidney replaced by transplant RENAL FUNCTION PANEL Routine 02/17/2024 10:25 AM HEAVY MOBILE EQUIPMENT REPAIRER Kidney replaced by transplant TACROLIMUS LEVEL, RANDOM Routine 02/17/2024 10:25 AM HEAVY MOBILE EQUIPMENT REPAIRER Kidney replaced by transplant MAGNESIUM Routine 02/17/2024 10:25 AM HEAVY MOBILE EQUIPMENT REPAIRER Kidney replaced by transplant CBC WITH AUTO DIFFERENTIAL Routine 02/17/2024 10:25 AM HEAVY MOBILE EQUIPMENT REPAIRER Kidney replaced by transplant HEPATITIS B DNA, QUANTITATIVE, PCR Routine 02/17/2024 10:25 AM HEAVY MOBILE EQUIPMENT REPAIRER Kidney replaced by transplant HEPATITIS C RNA, QUANTITATIVE, PCR Routine 02/17/2024 10:25 AM HEAVY MOBILE EQUIPMENT REPAIRER Kidney replaced by transplant HIV-1 RNA, QUANTITATIVE, PCR Routine 02/17/2024 10:25 AM HEAVY MOBILE EQUIPMENT REPAIRER Kidney replaced by transplant EGFR STAT 02/11/2024 9:00 AM HEAVY MOBILE EQUIPMENT REPAIRER DIFFERENTIAL AUTO STAT 02/11/2024 9:0 0 AM HEAVY MOBILE EQUIPMENT REPAIRER TACROLIMUS LEVEL, TROUGH STAT 02/11/2024 9:00 AM HEAVY MOBILE EQUIPMENT REPAIRER MAGNESIUM STAT 02/11/2024 9:00 AM HEAVY MOBILE EQUIPMENT REPAIRER CBC WITH AUTO DIFFERENTIAL STAT 02/11/2024 9:00 AM HEAVY MOBILE EQUIPMENT REPAIRER RENAL FUNCTION PANEL STAT 02/11/2024 9:00 AM HEAVY MOBILE EQUIPMENT REPAIRER CT ABDOMEN PELVIS WO CONTRAST Schedule Routine, Read Routine (OP Routine) 02/09/2024 3:42 PM HEAVY MOBILE EQUIPMENT REPAIRER Kidney transplanted CREATININE, BODY FLUID Routine 02/09/2024 3:29 PM HEAVY MOBILE EQUIPMENT REPAIRER Kidney transplanted EGFR Routine 02/09/2024 9:00 AM HEAVY MOBILE EQUIPMENT REPAIRER DIFFERENTIAL AUTO Routine 02/09/2024 9:0 0 AM HEAVY MOBILE EQUIPMENT REPAIRER TACROLIMUS LEVEL, TROUGH Routine 02/09/2024 9:00 AM HEAVY MOBILE EQUIPMENT REPAIRER MAGNESIUM Routine 02/09/2024 9:00 AM HEAVY MOBILE EQUIPMENT REPAIRER CBC WITH AUTO DIFFERENTIAL Routine 02/09/2024 9:00 AM HEAVY MOBILE EQUIPMENT REPAIRER RENAL FUNCTION PANEL Routine 02/09/2024 9:00 AM HEAVY MOBILE EQUIPMENT REPAIRER EGFR STAT 02/04/2024 8:52 AM HEAVY MOBILE EQUIPMENT REPAIRER DIFFERENTIAL AUTO STAT 02/04/2024 8:5 2 AM HEAVY MOBILE EQUIPMENT REPAIRER TACROLIMUS LEVEL, TROUGH STAT 02/04/2024 8:52 AM HEAVY MOBILE EQUIPMENT REPAIRER CREATININE, BODY FLUID STAT 02/04/2024 8:52 AM HEAVY MOBILE EQUIPMENT REPAIRER MAGNESIUM STAT 02/04/2024 8:52 AM HEAVY MOBILE EQUIPMENT REPAIRER CBC WITH AUTO DIFFERENTIAL STAT 02/04/2024 8:52 AM HEAVY MOBILE EQUIPMENT REPAIRER RENAL FUNCTION PANEL STAT 02/04/2024 8:52 AM HEAVY MOBILE EQUIPMENT REPAIRER EGFR Routine 02/02/2024 9:00 AM HEAVY MOBILE EQUIPMENT REPAIRER DIFFERENTIAL AUTO Routine 02/02/2024 9:0 0 AM HEAVY MOBILE EQUIPMENT REPAIRER TACROLIMUS LEVEL, TROUGH Routine 02/02/2024 9:00 AM HEAVY MOBILE EQUIPMENT REPAIRER MAGNESIUM Routine 02/02/2024 9:00 AM HEAVY MOBILE EQUIPMENT REPAIRER CBC WITH AUTO DIFFERENTIAL Routine 02/02/2024 9:00 AM HEAVY MOBILE EQUIPMENT REPAIRER RENAL FUNCTION PANEL Routine 02/02/2024 9:00 AM HEAVY MOBILE EQUIPMENT REPAIRER POCT GLUCOSE DEVICE Routine 01/28/2024 5 :58 PM HEAVY MOBILE EQUIPMENT REPAIRER POCT GLUCOSE DEVICE Routine 01/28/2024 12:47 PM HEAVY MOBILE EQUIPMENT REPAIRER POCT GLUCOSE DEVICE Routine 01/28/2024 8 :44 AM HEAVY MOBILE EQUIPMENT REPAIRER EGFR Routine 01/28/2024 4:15 AM HEAVY MOBILE EQUIPMENT REPAIRER DIFFERENTIAL AUTO Routine 01/28/2024 4:1 5 AM HEAVY MOBILE EQUIPMENT REPAIRER TACROLIMUS LEVEL, TROUGH Routine 01/28/2024 4:15 AM HEAVY MOBILE EQUIPMENT REPAIRER MAGNESIUM Routine 01/28/2024 4:15 AM HEAVY MOBILE EQUIPMENT REPAIRER RENAL FUNCTION PANEL Routine 01/28/2024 4:15 AM HEAVY MOBILE EQUIPMENT REPAIRER CBC WITH AUTO DIFFERENTIAL Routine 01/28/2024 4:15 AM HEAVY MOBILE EQUIPMENT REPAIRER POCT GLUCOSE DEVICE Routine 01/27/2024 9 :07 PM HEAVY MOBILE EQUIPMENT REPAIRER POCT GLUCOSE DEVICE Routine 01/27/2024 5 :55 PM HEAVY MOBILE EQUIPMENT REPAIRER ECG 12-LEAD Routine 01/27/2024 3:35 PM HEAVY MOBILE EQUIPMENT REPAIRER POCT GLUCOSE DEVICE Routine 01/27/2024 12:24 PM HEAVY MOBILE EQUIPMENT REPAIRER EGFR Routine 01/27/2024 4:17 AM HEAVY MOBILE EQUIPMENT REPAIRER DIFFERENTIAL AUTO Routine 01/27/2024 4:1 7 AM HEAVY MOBILE EQUIPMENT REPAIRER TACROLIMUS LEVEL, TROUGH Routine 01/27/2024 4:17 AM HEAVY MOBILE EQUIPMENT REPAIRER MAGNESIUM Routine 01/27/2024 4:17 AM HEAVY MOBILE EQUIPMENT REPAIRER RENAL FUNCTION PANEL Routine 01/27/2024 4:17 AM HEAVY MOBILE EQUIPMENT REPAIRER CBC WITH AUTO DIFFERENTIAL Routine 01/27/2024 4:17 AM HEAVY MOBILE EQUIPMENT REPAIRER POCT GLUCOSE DEVICE Routine 01/26/2024 7 :59 PM HEAVY MOBILE EQUIPMENT REPAIRER POCT GLUCOSE DEVICE Routine 01/26/2024 5 :15 PM HEAVY MOBILE EQUIPMENT REPAIRER POCT GLUCOSE DEVICE Routine 01/26/2024 1 :48 PM HEAVY MOBILE EQUIPMENT REPAIRER HEMODIALYSIS Routine 01/26/2024 12:43 PM HEAVY MOBILE EQUIPMENT REPAIRER POCT GLUCOSE DEVICE Routine 01/26/2024 12:06 PM HEAVY MOBILE EQUIPMENT REPAIRER TRANSFUSE RED BLOOD CELLS Timed 01/26/2024 9:00 AM HEAVY MOBILE EQUIPMENT REPAIRER POCT GLUCOSE DEVICE Routine 01/26/2024 8 :25 AM HEAVY MOBILE EQUIPMENT REPAIRER TYPE AND SCREEN Timed 01/26/2024 6:19 AM HEAVY MOBILE EQUIPMENT REPAIRER PREPARE RBC Timed 01/26/2024 5:41 AM HEAVY MOBILE EQUIPMENT REPAIRER EGFR Routine 01/26/2024 4:39 AM HEAVY MOBILE EQUIPMENT REPAIRER DIFFERENTIAL AUTO Routine 01/26/2024 4:3 9 AM HEAVY MOBILE EQUIPMENT REPAIRER TACROLIMUS LEVEL, TROUGH Routine 01/26/2024 4:39 AM HEAVY MOBILE EQUIPMENT REPAIRER MAGNESIUM Routine 01/26/2024 4:39 AM HEAVY MOBILE EQUIPMENT REPAIRER RENAL FUNCTION PANEL Routine 01/26/2024 4:39 AM HEAVY MOBILE EQUIPMENT REPAIRER CBC WITH AUTO DIFFERENTIAL Routine 01/26/2024 4:39 AM HEAVY MOBILE EQUIPMENT REPAIRER POCT GLUCOSE DEVICE Routine 01/25/2024 9 :33 PM HEAVY MOBILE EQUIPMENT REPAIRER TROPONIN I HIGH-SENSITIVITY 6-HOUR Timed 01/25/2024 7:51 PM HEAVY MOBILE EQUIPMENT REPAIRER TROPONIN I HIGH-SENSITIVITY 4-HOUR Timed 01/25/2024 6:00 PM HEAVY MOBILE EQUIPMENT REPAIRER POCT GLUCOSE DEVICE Routine 01/25/2024 5 :49 PM HEAVY MOBILE EQUIPMENT REPAIRER TROPONIN I HIGH-SENSITIVITY 2-HOUR Timed 01/25/2024 3:44 PM HEAVY MOBILE EQUIPMENT REPAIRER XR CHEST 1 VIEW ED Urgent/IP Urgent 01/25/2024 2:52 PM HEAVY MOBILE EQUIPMENT REPAIRER CBC WITHOUT DIFFERENTIAL STAT 01/25/2024 2:42 PM HEAVY MOBILE EQUIPMENT REPAIRER TROPONIN I HIGH-SENSITIVITY STAT 01/25/2024 2:05 PM HEAVY MOBILE EQUIPMENT REPAIRER CRITICAL RESULT CALLBACK CARDIO CHEM Routine 01/25/2024 1:46 PM HEAVY MOBILE EQUIPMENT REPAIRER TROPONIN I HIGH-SENSITIVITY SERIES (BASELINE, 2HR, 4HR, 6HR) Routine 01/25/2024 1:46 PM HEAVY MOBILE EQUIPMENT REPAIRER ECG 12-LEAD STAT 01/25/2024 1:31 PM HEAVY MOBILE EQUIPMENT REPAIRER CREATININE, BODY FLUID Routine 01/25/2024 1:15 PM HEAVY MOBILE EQUIPMENT REPAIRER POCT GLUCOSE DEVICE Routine 01/25/2024 12:46 PM HEAVY MOBILE EQUIPMENT REPAIRER POCT GLUCOSE DEVICE Routine 01/25/2024 11:13 AM HEAVY MOBILE EQUIPMENT REPAIRER CENTRAL LINE PLACEMENT > 5 YEARS IP Routine 01/25/2024 10:26 AM HEAVY MOBILE EQUIPMENT REPAIRER POCT GLUCOSE DEVICE Routine 01/25/2024 7 :40 AM HEAVY MOBILE EQUIPMENT REPAIRER DIFFERENTIAL AUTO Routine 01/25/2024 5:0 7 AM HEAVY MOBILE EQUIPMENT REPAIRER EGFR Routine 01/25/2024 5:07 AM HEAVY MOBILE EQUIPMENT REPAIRER TACROLIMUS LEVEL, TROUGH Routine 01/25/2024 5:07 AM HEAVY MOBILE EQUIPMENT REPAIRER MAGNESIUM Routine 01/25/2024 5:07 AM HEAVY MOBILE EQUIPMENT REPAIRER RENAL FUNCTION PANEL Routine 01/25/2024 5:07 AM HEAVY MOBILE EQUIPMENT REPAIRER CBC WITH AUTO DIFFERENTIAL Routine 01/25/2024 5:07 AM HEAVY MOBILE EQUIPMENT REPAIRER POCT GLUCOSE DEVICE Routine 01/24/2024 8 :58 PM HEAVY MOBILE EQUIPMENT REPAIRER POCT GLUCOSE DEVICE Routine 01/24/2024 4 :57 PM HEAVY MOBILE EQUIPMENT REPAIRER POCT GLUCOSE DEVICE Routine 01/24/2024 11:41 AM HEAVY MOBILE EQUIPMENT REPAIRER POCT GLUCOSE DEVICE Routine 01/24/2024 7 :32 AM HEAVY MOBILE EQUIPMENT REPAIRER DIFFERENTIAL AUTO Routine 01/24/2024 5:0 6 AM HEAVY MOBILE EQUIPMENT REPAIRER EGFR Routine 01/24/2024 5:06 AM HEAVY MOBILE EQUIPMENT REPAIRER TACROLIMUS LEVEL, TROUGH Routine 01/24/2024 5:06 AM HEAVY MOBILE EQUIPMENT REPAIRER MAGNESIUM Routine 01/24/2024 5:06 AM HEAVY MOBILE EQUIPMENT REPAIRER RENAL FUNCTION PANEL Routine 01/24/2024 5:06 AM HEAVY MOBILE EQUIPMENT REPAIRER CBC WITH AUTO DIFFERENTIAL Routine 01/24/2024 5:06 AM HEAVY MOBILE EQUIPMENT REPAIRER POCT GLUCOSE DEVICE Routine 01/23/2024 9 :19 PM HEAVY MOBILE EQUIPMENT REPAIRER POCT GLUCOSE DEVICE Routine 01/23/2024 5 :44 PM HEAVY MOBILE EQUIPMENT REPAIRER POCT GLUCOSE DEVICE Routine 01/23/2024 12:11 PM HEAVY MOBILE EQUIPMENT REPAIRER HEMODIALYSIS Routine 01/23/2024 8:43 AM HEAVY MOBILE EQUIPMENT REPAIRER POCT GLUCOSE DEVICE Routine 01/23/2024 8 :18 AM HEAVY MOBILE EQUIPMENT REPAIRER TROPONIN I HIGH-SENSITIVITY Routine 01/23/2024 6:12 AM HEAVY MOBILE EQUIPMENT REPAIRER CBC WITH AUTO DIFFERENTIAL Routine 01/23/2024 2:42 AM HEAVY MOBILE EQUIPMENT REPAIRER EGFR Routine 01/23/2024 2:42 AM HEAVY MOBILE EQUIPMENT REPAIRER DIFFERENTIAL AUTO Routine 01/23/2024 2:4 2 AM HEAVY MOBILE EQUIPMENT REPAIRER TACROLIMUS LEVEL, TROUGH Routine 01/23/2024 2:42 AM HEAVY MOBILE EQUIPMENT REPAIRER MAGNESIUM Routine 01/23/2024 2:42 AM HEAVY MOBILE EQUIPMENT REPAIRER RENAL FUNCTION PANEL Routine 01/23/2024 2:42 AM HEAVY MOBILE EQUIPMENT REPAIRER TROPONIN I HIGH-SENSITIVITY Routine 01/23/2024 2:41 AM HEAVY MOBILE EQUIPMENT REPAIRER ECG 12-LEAD STAT 01/23/2024 1:02 AM HEAVY MOBILE EQUIPMENT REPAIRER DIFFERENTIAL AUTO Routine 01/22/2024 11:14 PM HEAVY MOBILE EQUIPMENT REPAIRER TROPONIN I HIGH-SENSITIVITY Routine 01/22/2024 11:14 PM HEAVY MOBILE EQUIPMENT REPAIRER TROPONIN I HIGH-SENSITIVITY Routine 01/22/2024 11:14 PM HEAVY MOBILE EQUIPMENT REPAIRER TYPE AND SCREEN Timed 01/22/2024 11:14 PM HEAVY MOBILE EQUIPMENT REPAIRER TACROLIMUS LEVEL, TROUGH Routine 01/22/2024 11:14 PM HEAVY MOBILE EQUIPMENT REPAIRER CBC WITH AUTO DIFFERENTIAL Routine 01/22/2024 11:14 PM HEAVY MOBILE EQUIPMENT REPAIRER XR CHEST 1 VIEW ED Urgent/IP Urgent 01/22/2024 8:41 PM HEAVY MOBILE EQUIPMENT REPAIRER POCT GLUCOSE DEVICE Routine 01/22/2024 8 :07 PM HEAVY MOBILE EQUIPMENT REPAIRER POCT GLUCOSE DEVICE Routine 01/22/2024 6 :42 PM HEAVY MOBILE EQUIPMENT REPAIRER TROPONIN I HIGH-SENSITIVITY 6-HOUR Timed 01/22/2024 6:40 PM HEAVY MOBILE EQUIPMENT REPAIRER TRANSFUSE RED BLOOD CELLS Timed 01/22/2024 6:15 PM HEAVY MOBILE EQUIPMENT REPAIRER TRANSTHORACIC ECHO (TTE) COMPLETE W DOPPLER/CF W CONTRAST STAT 01/22/2024 5:31 PM HEAVY MOBILE EQUIPMENT REPAIRER TYPE AND SCREEN Timed 01/22/2024 4:14 PM HEAVY MOBILE EQUIPMENT REPAIRER TROPONIN I HIGH-SENSITIVITY 4-HOUR Timed 01/22/2024 4:14 PM HEAVY MOBILE EQUIPMENT REPAIRER ECG 12-LEAD STAT 01/22/2024 3:39 PM HEAVY MOBILE EQUIPMENT REPAIRER CBC WITHOUT DIFFERENTIAL STAT 01/22/2024 2:07 PM HEAVY MOBILE EQUIPMENT REPAIRER ECG 12-LEAD Routine 01/22/2024 12:59 PM HEAVY MOBILE EQUIPMENT REPAIRER CRITICAL RESULT CALLBACK CARDIO CHEM Routine 01/22/2024 12:18 PM HEAVY MOBILE EQUIPMENT REPAIRER EGFR STAT 01/22/2024 12:18 PM HEAVY MOBILE EQUIPMENT REPAIRER TROPONIN I HIGH-SENSITIVITY SERIES (BASELINE, 2HR, 4HR, 6HR) Routine 01/22/2024 12:18 PM HEAVY MOBILE EQUIPMENT REPAIRER PHOSPHORUS STAT 01/22/2024 12:18 PM HEAVY MOBILE EQUIPMENT REPAIRER MAGNESIUM STAT 01/22/2024 12:18 PM HEAVY MOBILE EQUIPMENT REPAIRER BASIC METABOLIC PANEL STAT 01/22/2024 12:18 PM HEAVY MOBILE EQUIPMENT REPAIRER POCT GLUCOSE DEVICE Routine 01/22/2024 11:35 AM HEAVY MOBILE EQUIPMENT REPAIRER XR ABDOMEN AP 1 VIEW IP Routine 01/22/2024 10:29 AM HEAVY MOBILE EQUIPMENT REPAIRER KS AN PROCEDURE PLACEHOLDER Routine 01/22/2024 9:42 AM HEAVY MOBILE EQUIPMENT REPAIRER KS AN ELECTIVE ENDOTRACHEAL AIRWAY Routine 01/22/2024 9:42 AM HEAVY MOBILE EQUIPMENT REPAIRER RE-EXPLORATION KIDNEY TRANSPLANT 01/22/2024 9:18 AM HEAVY MOBILE EQUIPMENT REPAIRER -donor kidney transplant recipient Case Notes 01/20@[phone]- Ace Bennett via phone call dos 01/21 kristal time sensitive - DMF EGFR STAT 01/22/2024 9:02 AM HEAVY MOBILE EQUIPMENT REPAIRER BASIC METABOLIC PANEL STAT 01/22/2024 9:02 AM HEAVY MOBILE EQUIPMENT REPAIRER POCT GLUCOSE DEVICE Routine 01/22/2024 9 :01 AM HEAVY MOBILE EQUIPMENT REPAIRER POCT GLUCOSE DEVICE Routine 01/22/2024 8 :26 AM HEAVY MOBILE EQUIPMENT REPAIRER LACTATE DEHYDROGENASE Routine 01/22/2024 4:58 AM HEAVY MOBILE EQUIPMENT REPAIRER HAPTOGLOBIN Routine 01/22/2024 4:58 AM HEAVY MOBILE EQUIPMENT REPAIRER EGFR Routine 01/22/2024 4:58 AM HEAVY MOBILE EQUIPMENT REPAIRER DIFFERENTIAL AUTO Routine 01/22/2024 4:5 8 AM HEAVY MOBILE EQUIPMENT REPAIRER TACROLIMUS LEVEL, TROUGH Routine 01/22/2024 4:58 AM HEAVY MOBILE EQUIPMENT REPAIRER MAGNESIUM Routine 01/22/2024 4:58 AM HEAVY MOBILE EQUIPMENT REPAIRER RENAL FUNCTION PANEL Routine 01/22/2024 4:58 AM HEAVY MOBILE EQUIPMENT REPAIRER CBC WITH AUTO DIFFERENTIAL Routine 01/22/2024 4:58 AM HEAVY MOBILE EQUIPMENT REPAIRER POCT GLUCOSE DEVICE Routine 01/21/2024 8 :34 PM HEAVY MOBILE EQUIPMENT REPAIRER POCT GLUCOSE DEVICE Routine 01/21/2024 6 :37 PM HEAVY MOBILE EQUIPMENT REPAIRER POTASSIUM, WHOLE BLOOD STAT 01/21/2024 4:22 PM HEAVY MOBILE EQUIPMENT REPAIRER CBC WITHOUT DIFFERENTIAL STAT 01/21/2024 1:51 PM HEAVY MOBILE EQUIPMENT REPAIRER POCT GLUCOSE DEVICE Routine 01/21/2024 12:26 PM HEAVY MOBILE EQUIPMENT REPAIRER KS AN PROCEDURE PLACEHOLDER Routine 01/21/2024 10:41 AM HEAVY MOBILE EQUIPMENT REPAIRER HEMODIALYSIS Routine 01/21/2024 9:39 AM HEAVY MOBILE EQUIPMENT REPAIRER POTASSIUM LEVEL Timed 01/21/2024 8:39 AM HEAVY MOBILE EQUIPMENT REPAIRER POCT GLUCOSE DEVICE Routine 01/21/2024 8 :10 AM HEAVY MOBILE EQUIPMENT REPAIRER POCT GLUCOSE DEVICE Routine 01/21/2024 6 :47 AM HEAVY MOBILE EQUIPMENT REPAIRER POCT GLUCOSE DEVICE Routine 01/21/2024 5 :46 AM HEAVY MOBILE EQUIPMENT REPAIRER POTASSIUM, WHOLE BLOOD STAT 01/21/2024 5:22 AM HEAVY MOBILE EQUIPMENT REPAIRER ECG 12-LEAD STAT 01/21/2024 5:17 AM HEAVY MOBILE EQUIPMENT REPAIRER EGFR Routine 01/21/2024 4:18 AM HEAVY MOBILE EQUIPMENT REPAIRER CRITICAL RESULT CALLBACK CHEMISTRY Routine 01/21/2024 4:18 AM HEAVY MOBILE EQUIPMENT REPAIRER DIFFERENTIAL AUTO Routine 01/21/2024 4:1 8 AM HEAVY MOBILE EQUIPMENT REPAIRER TACROLIMUS LEVEL, TROUGH Routine 01/21/2024 4:18 AM HEAVY MOBILE EQUIPMENT REPAIRER MAGNESIUM Routine 01/21/2024 4:18 AM HEAVY MOBILE EQUIPMENT REPAIRER RENAL FUNCTION PANEL Routine 01/21/2024 4:18 AM HEAVY MOBILE EQUIPMENT REPAIRER CBC WITH AUTO DIFFERENTIAL Routine 01/21/2024 4:18 AM HEAVY MOBILE EQUIPMENT REPAIRER US RENAL TRANSPLANT W DOPPLERS ED Urgent/IP Urgent 01/20/2024 11:24 PM HEAVY MOBILE EQUIPMENT REPAIRER POCT GLUCOSE DEVICE Routine 01/20/2024 8 :56 PM HEAVY MOBILE EQUIPMENT REPAIRER XR CHEST 1 VIEW ED Urgent/IP Urgent 01/20/2024 5:58 PM HEAVY MOBILE EQUIPMENT REPAIRER EGFR STAT 01/20/2024 5:08 PM HEAVY MOBILE EQUIPMENT REPAIRER RENAL FUNCTION PANEL STAT 01/20/2024 5:08 PM HEAVY MOBILE EQUIPMENT REPAIRER CBC WITHOUT DIFFERENTIAL STAT 01/20/2024 5:08 PM HEAVY MOBILE EQUIPMENT REPAIRER POCT GLUCOSE DEVICE Routine 01/20/2024 4 :51 PM HEAVY MOBILE EQUIPMENT REPAIRER POC BLOOD GAS AND CHEMISTRIES, ARTERIAL Routine 01/20/2024 4:23 PM [employer] MOBILE EQUIPMENT REPAIRER TRANSFUSE RED BLOOD CELLS Timed 01/20/2024 3:54 PM [employer] MOBILE EQUIPMENT REPAIRER POC BLOOD GAS AND CHEMISTRIES, ARTERIAL Routine 01/20/2024 3:09 PM HEAVY MOBILE EQUIPMENT REPAIRER POCT GLUCOSE DEVICE Routine 01/20/2024 2 :41 PM [employer]BILE EQUIPMENT REPAIRER ANESTHESIA CENTRAL VENOUS LINE PLACEMENT Routine 01/20/2024 2:37 PM HE[employer]Y MOBILE EQUIPMENT REPAIRER ANESTHESIA INTUBATION Routine 01/20/2024 1:37 PM HEAVY MOBILE EQUIPMENT REPAIRER TRANSPLANT KIDNEY 01/20/2024 12:46 PM HEAVY MOBILE EQUIPMENT REPAIRER ESRD (end stage renal disease) (CMS/HCC) ([facility]) Case Notes ORT TIME: [id number]:MWOBMatch ID#: [id number] Group:OTransplant Coordinator: Mervat [phone] POCT GLUCOSE DEVICE Routine 01/20/2024 11:12 AM HEAVY MOBILE EQUIPMENT REPAIRER HLA DONOR SPECIFIC ANTIBODY REPORT 01/20/2024 7:31 AM [employer]BILE EQUIPMENT REPAIRER EGFR Routine 01/20/2024 12:08 AM [employer]BILE EQUIPMENT REPAIRER BASIC METABOLIC PANEL Routine 01/20/2024 12:08 AM HE[employer] MOBILE EQUIPMENT REPAIRER HEMODIALYSIS Routine 01/19/2024 6:44 PM HE[employer] MOBILE EQUIPMENT REPAIRER XR ANKLE RIGHT 3 OR MORE VIEWS IP Routine 01/19/2024 12:37 PM HE[employer] MOBILE EQUIPMENT REPAIRER XR TIBIA FIBULA RIGHT2 VIEWS IP Routine 01/19/2024 12:37 PM [employer] MOBI[employer] EQUIPMENT REPAIRER URINE CULTURE Routine 01/19/2024 8:50 AM HEAVY MOBILE EQUIPMENT REPAIRER PREPARE RBC Timed 01/19/2024 6:31 AM HEAVY MOBILE EQUIPMENT REPAIRER HLA CROSSMATCH REPORT 01/18/2024 11:43 PM HE[employer] MOBILE EQUIPMENT REPAIRER HLA ANTIBODY SCREEN - SAB (CLASS I AND CLASS II) Routine 01/18/2024 11:43 PM [employer]BILE EQUIPMENT REPAIRER HLA CROSSMATCH, ALLO STAT 01/18/2024 11:43 PM HE[employer] MOBILE EQUIPMENT REPAIRER HLA ANTIBODY SCREEN BY PRA OR SAB PER SCHEDULE (CLASS I AND CLASS II) STAT 01/18/2024 11:43 PM HEAVY MOBILE EQUIPMENT REPAIRER XR CHEST 1 VIEW ED Urgent/IP Urgent 01/18/2024 11:41 PM HE[employer] MOBILE EQUIPMENT REPAIRER EGFR STAT 01/18/2024 10:50 PM HEAVY MOBILE EQUIPMENT REPAIRER DIFFERENTIAL AUTO STAT 01/18/2024 10:50 PM HEAVY MOBILE EQUIPMENT REPAIRER HLA ANTIBODY SCREEN BY PRA STAT 01/18/2024 10:50 PM HEAVY MOBILE EQUIPMENT REPAIRER IRON PROFILE W/ IBC Routine 01/18/2024 10:50 PM HE[employer] MOBILE EQUIPMENT REPAIRER LIPID PANEL Routine 01/18/2024 10:50 PM HEAV[employer] MOBILE EQUIPMENT REPAIRER URIC ACID Routine 01/18/2024 10:50 PM HEAVY MOBILE EQUIPMENT REPAIRER HEMOGLOBIN A1C Routine 01/18/2024 10:50 PM HEAV[employer] MOBILE EQUIPMENT REPAIRER FERRITIN Routine 01/18/2024 10:50 PM HEAVY MOBILE EQUIPMENT REPAIRER TYPE AND SCREEN STAT 01/18/2024 10:50 PM HEAV[employer] MOBILE EQUIPMENT REPAIRER PHOSPHORUS STAT 01/18/2024 10:50 PM HEAVY MOBILE EQUIPMENT REPAIRER PROTIME-INR STAT 01/18/2024 10:50 PM HEAVY MOBILE EQUIPMENT REPAIRER COMPREHENSIVE METABOLIC PANEL STAT 01/18/2024 10:50 PM HE[employer] MOBILE EQUIPMENT REPAIRER CBC WITH AUTO DIFFERENTIAL STAT 01/18/2024 10:50 PM HEAVY MOBILE EQUIPMENT REPAIRER APTT STAT 01/18/2024 10:50 PM HEAVY MOBILE EQUIPMENT REPAIRER HIV 1/2 ANTIBODY PLUS P24 ANTIGEN Routine 01/18/2024 10:50 PM HEAVY MOBILE EQUIPMENT REPAIRER HEPATITIS C RNA, QUANTITATIVE, PCR Routine 01/18/2024 10:50 PM HEAVY MOBILE EQUIPMENT REPAIRER HEPATITIS C ANTIBODY Routine 01/18/2024 10:50 PM HEAVY MOBILE EQUIPMENT REPAIRER HEPATITIS B SURFACE ANTIGEN Routine 01/18/2024 10:50 PM HEAVY MOBILE EQUIPMENT REPAIRER HEPATITIS B SURFACE ANTIBODY (IMMUNE STATUS) Routine 01/18/2024 10:50 PM HEAVY MOBILE EQUIPMENT REPAIRER HEPATITIS B CORE ANTIBODY, TOTAL Routine 01/18/2024 10:50 PM HEAVY MOBILE EQUIPMENT REPAIRER CT CHEST WO CONTRAST F/U LUNG SCREEN PROTOCOL Schedule Routine, Read Routine (OP Routine) 01/13/2024 3:25 PM HEAVY MOBILE EQUIPMENT REPAIRER Abnormal CT lung screening PSA SCREEN Routine 09/17/2023 7:43 AM CDT ESRD (end stage renal disease) (CMS/HCC) (HCC) Pre-transplant evaluation for kidney transplant from Last 3 Months or Most Recently Relevant to Health Maintenance Results * (ABNORMAL) eGFR (04/19/2024 10:42 AM HEAVY MOBILE EQUIPMENT REPAIRER) eGFR 24(L) >=60 mL/min/1. 73 m2 Comment: Interpretive Data Reference Interval Normal >/= 90 mL/min/1.73m2 Mildly decreased* 60 - 89 mL/min/1.73m2 Mildly to moderately decreased 45 - 59 mL/min/1.73m2 Moderately to severely decreased 30 - 44 mL/min/1.73m2 Severely decreased 15 - 29 mL/min/1.73m2 Kidney Failure < 15 mL/min/1.73m2 *Relative to young adult level Estimated glomerular filtration rate is determined by the 2020 CKD-EPI equation recommended by the [employer] (A Unifying Approach to GFR Estimation: Recommendations of the NKF-ASK Task Force on Reassessing the Inclusion of Race in Diagnosing Kidney Disease, JASN 2020). The CKD-EPI equation should not be used for patients with unstable renal function and has not been validated in children and those over 70. Current interpretive data was last reviewed 2020. Blood 04/19/2024 10:4 2 AM HEAVY MOBILE EQUIPMENT REPAIRER 04/19/2024 11:14 AM HEAVY MOBILE EQUIPMENT REPAIRER us Jack Morrison MD LAB BLOOD ORDERABLES Final R esult [facility] [place] [address] * (ABNORMAL) Differential, auto (04/19/2024 10:42 AM HEAVY MOBILE EQUIPMENT REPAIRER) [facility] Neutrophil abs 13.1(H) 1.5 - 6.5 K/cumm Imm gran abs 0.9(H) 0.0 - 0.1 K/cumm [facility] Lymphocyte abs 0.3(L) 0.8 - 3.3 K/cumm [facility] Monocyte abs 0.6 0.2 - 0.8 K/cumm [facility] Eosinophil abs 0.0 0.0 - 0.5 K/cumm [facility] Basophil abs 0.1 0.0 - 0.1 K/cumm [facility] Neutrophil pct 87.8 % [facility] Comment: Interpretive Data Percent cell count reference ranges are not reported, since discordance with absolute values may lead to misinterpretation of CBC data. Current Interpretive Data was last revised on 2017. Imm gran pct 5.8 % [facility] Comment: Interpretive Data Percent cell count reference ranges are not reported, since discordance with absolute values may lead to misinterpretation of CBC data. Current Interpretive Data was last revised on 2017. Lymphocyte pct 1.8 % [facility] Comment: Interpretive Data Percent cell count reference ranges are not reported, since discordance with absolute values may lead to misinterpretation of CBC data. Current Interpretive Data was last revised on 2017. Monocyte pct 4.0 % [facility] Comment: Interpretive Data Percent cell count reference ranges are not reported, since discordance with absolute values may lead to misinterpretation of CBC data. Current Interpretive Data was last revised on 2017. Eosinophil pct 0.1 % [facility] Comment: Interpretive Data Percent cell count reference ranges are not reported, since discordance with absolute values may lead to misinterpretation of CBC data. Current Interpretive Data was last revised on 2017. Basophil pct 0.5 % [facility] Comment: Interpretive Data Percent cell count reference ranges are not reported, since discordance with absolute values may lead to misinterpretation of CBC data. Current Interpretive Data was last revised on 2017. Blood 04/19/2024 10:4 2 AM HEAVY MOBILE EQUIPMENT REPAIRER 04/19/2024 11:14 AM HEAVY MOBILE EQUIPMENT REPAIRER us Jack Morrison MD LAB BLOOD ORDERABLES Final R esult [facility] Department [place] [address] * (ABNORMAL) CBC with auto differential (04/19/2024 10:42 AM HEAVY MOBILE EQUIPMENT REPAIRER) WBC 14.9(H) 3.8 - 9.9 K/cumm Hgb 11.6(L) 13.0 - 17.5 g/dL [facility] Hct 35.5(L) 38.9 - 50.3 % [facility] Plt 281 150 - 400 K/cumm [facility] MPV 10.2 9.1 - 12.3 fL [facility] RBC 3.79(L) 4.30 - 5.80 M/cumm [facility] MCV 93.7 81.3 - 96.4 fL [facility] MCH 30.6 27.1 - 33.3 pg [facility] MCHC 32.7 32.3 - 35.7 g/dL [facility] RDW CV 13.5 11.1 - 14.9 % [facility] RDW SD 45.1 35.7 - 48.1 fL [facility] NRBC abs 0.00 0.00 - 0.01 K/cumm [facility] Blood 04/19/2024 10:4 2 AM HEAVY MOBILE EQUIPMENT REPAIRER 04/19/2024 11:14 AM HEAVY MOBILE EQUIPMENT REPAIRER us Jack Morrison MD LAB BLOOD ORDERABLES Final R esult [facility] [place] [address] * (ABNORMAL) Renal function panel (04/19/2024 10:42 AM HEAVY MOBILE EQUIPMENT REPAIRER) Sodium 138 135 - 145 mmol/L Potassium, pl 4.7 3.3 - 4.9 mmol/L [facility] Chloride 99 97 - 110 mmol/L [facility] CO2 29 22 - 32 mmol/L [facility] Anion gap 10 2 - 15 mmol/L [facility] BUN 38(H) 6 - 25 mg/dL [facility] Creatinine 2.80(H) 0.80 - 1.30 mg/dL [facility] Glucose 125 70 - 199 mg/dL [facility] Comment: Interpretive Data Fasting glucose >/= 126 mg/dl is diagnostic for diabetes. Fasting is defined as no caloric intake for at least 8 hours. Fasting glucose between 100 mg/dl to 125 mg/dl is diagnostic of prediabetes. In a patient with classic symptoms of hyperglycemia or hyperglycemic crisis, a random glucose >/= 200 mg/dl is diagnostic for diabetes. In the absence of unequivocal hyperglycemia, results should be confirmed by repeat testing. The classification and Diagnosis of Diabetes Diabetes Care 2021; 46: S19-S40. Current interpretive data was last revised 2022. Calcium 10.7(H) 8.5 - 10.3 mg/dL [facility] Phosphorus, pl 2.5 2.3 - 4.5 mg/dL [facility] Albumin 3.9 3.5 - 5.0 g/dL [facility] Blood 04/19/2024 10:4 2 AM HEAVY MOBILE EQUIPMENT REPAIRER 04/19/2024 11:14 AM HEAVY MOBILE EQUIPMENT REPAIRER us Jack Morrison MD LAB BLOOD ORDERABLES Final R esult [facility] [place] [address] * (ABNORMAL) Differential, auto (04/06/2024 11:42 AM HEAVY MOBILE EQUIPMENT REPAIRER) Neutrophil abs 9.1(H) 1.5 - 6.5 K/cumm Imm gran abs 0.7(H) 0.0 - 0.1 K/cumm [facility] Lymphocyte abs 0.2(L) 0.8 - 3.3 K/cumm [facility] Monocyte abs 0.5 0.2 - 0.8 K/cumm [facility] Eosinophil abs 0.0 0.0 - 0.5 K/cumm [facility] Basophil abs 0.0 0.0 - 0.1 K/cumm [facility] Neutrophil pct 86.6 % [facility] Comment: Interpretive Data Percent cell count reference ranges are not reported, since discordance with absolute values may lead to misinterpretation of CBC data. Current Interpretive Data was last revised on 2017. Imm gran pct 6.5 % [facility] Comment: Interpretive Data Percent cell count reference ranges are not reported, since discordance with absolute values may lead to misinterpretation of CBC data. Current Interpretive Data was last revised on 2017. Lymphocyte pct 1.4 % [facility] Comment: Interpretive Data Percent cell count reference ranges are not reported, since discordance with absolute values may lead to misinterpretation of CBC data. Current Interpretive Data was last revised on 2017. Monocyte pct 4.9 % [facility] Comment: Interpretive Data Percent cell count reference ranges are not reported, since discordance with absolute values may lead to misinterpretation of CBC data. Current Interpretive Data was last revised on 2017. Eosinophil pct 0.3 % [facility] Comment: Interpretive Data Percent cell count reference ranges are not reported, since discordance with absolute values may lead to misinterpretation of CBC data. Current Interpretive Data was last revised on 2017. Basophil pct 0.3 % [facility] Comment: Interpretive Data Percent cell count reference ranges are not reported, since discordance with absolute values may lead to misinterpretation of CBC data. Current Interpretive Data was last revised on 2017. Blood 04/06/2024 11:4 2 AM HEAVY MOBILE EQUIPMENT REPAIRER 04/06/2024 11:58 AM HEAVY MOBILE EQUIPMENT REPAIRER us Aurea Fine FREEZER UNLOADER LAB BLOOD ORDERABLES Final Result [facility] [place] [address] * (ABNORMAL) CBC with auto differential (04/06/2024 11:42 AM HEAVY MOBILE EQUIPMENT REPAIRER) WBC 10.5(H) 3.8 - 9.9 K/cumm Hgb 11.5(L) 13.0 - 17.5 g/dL [facility] Hct 34.3(L) 38.9 - 50.3 % [facility] Plt 251 150 - 400 K/cumm [facility] MPV 10.1 9.1 - 12.3 fL [facility] RBC 3.60(L) 4.30 - 5.80 M/cumm [facility] MCV 95.3 81.3 - 96.4 fL [facility] MCH 31.9 27.1 - 33.3 pg [facility] MCHC 33.5 32.3 - 35.7 g/dL [facility] RDW CV 12.8 11.1 - 14.9 % [facility] RDW SD 44.4 35.7 - 48.1 fL [facility] NRBC abs 0.00 0.00 - 0.01 K/cumm [facility] Blood 04/06/2024 11:4 2 AM HEAVY MOBILE EQUIPMENT REPAIRER 04/06/2024 11:58 AM HEAVY MOBILE EQUIPMENT REPAIRER Aurea Fine [employer] LAB BLOOD ORDERABLES Final Result [facility] [place] [address] * (ABNORMAL) Respiratory pathogen panel Nasopharyngeal (04/06/2024 11:41 AM HEAVY MOBILE EQUIPMENT REPAIRER) Pathologist [facility] Influenza A RNA Not Detected Not Detected Influenza B RNA Not Detected Not Detected [facility] RSV RNA Not Detected Not Detected [facility] COVID-19 RNA Not Detected Not Detected [facility] Coronavirus 229E RNA Not Detected Not Detected [facility] Coronavirus HKU1 RNA Not Detected Not Detected [facility] Coronavirus NL63 RNA Not Detected Not Detected [facility] Coronavirus OC43 RNA Not Detected Not Detected [facility] Adenovirus DNA Not Detected Not Detected [facility] Metapneumovirus RNA Not Detected Not Detected [facility] Rhinovirus/Enterov irus RNA Detected(A) Not Detected [facility] Parainfluenza 1 RNA Not Detected Not Detected [facility] Parainfluenza 2 RNA Not Detected Not Detected [facility] Parainfluenza 3 RNA Not Detected Not Detected [facility] Parainfluenza 4 RNA Not Detected Not Detected [facility] B. pertussis DNA Not Detected Not Detected [facility] B. parapertussis DNA Not Detected Not Detected [facility] C. pneumoniae DNA Not Detected Not Detected [facility] M. pneumoniae DNA Not Detected Not Detected [facility] Nasopharyngeal 04/06/2024 11 :41 AM HEAVY MOBILE EQUIPMENT REPAIRER 04/06/2024 12:10 PM HEAVY MOBILE EQUIPMENT REPAIRER Narrative [facility] - 04/06/2024 1:15 PM HEAVY MOBILE EQUIPMENT REPAIRER Is the Patient experiencing symptoms consistent with COVID?->Unknown Surveillance testing for transplant patient?->No Interpretive Data The [employer]Array Respiratory Panel (RP2.1) assay is a multiplexed real-time PCR based nucleic acid test capable of simultaneous qualitative detection and identification of multiple respiratory viral and bacterial nucleic acids, including SARS Coronavirus 2 (the causative agent of COVID-19). The following bacteria, viruses and virus subtypes can be identified using the [employer] RP2.1 assay: Bordetella pertussis, Bordetella parapertussis, Chlamydia pneumoniae, Mycoplasma pneumoniae, Adenovirus, SARS Coronavirus 2, seasonal coronaviruses (Coronavirus HKU1, Coronavirus NL63, Coronavirus 229E, and Coronavirus OC43), Influenza A, Influenza A subtype H1, Influenza A subtype H3, Influenza A subtype 2009 H1, Influenza B, Metapneumovirus, Parainfluenza 1, Parainfluenza 2, Parainfluenza 3, Parainfluenza 4, RSV, Rhinovirus/Enterovirus. Due to the genetic similarity between human Rhinovirus and Enterovirus, the [employer] RP2.1 assay cannot reliably differentiate them. Coronavirus OC43 may cross-react with some isolates of Coronavirus HKU1. A dual positive result may be due to cross-reactivity or may indicate a co- infection. The detection and identification of specific viral and bacterial nucleic acids from individuals exhibiting signs and symptoms of a respiratory infection aids in the diagnosis of respiratory infection if used in conjunction with other clinical and epidemiological information. The results of this test should not be used as the sole basis for diagnosis, treatment, or other management decisions. Negative results in the setting of a respiratory illness may be due to infection with pathogens that are not detected by this test. Positive results do not rule out infection/co-infection with other organisms. The agent(s) detected by the [employer] RP2.1 may not be the definite cause of disease. Additional testing (lab, imaging, etc.) may be necessary when evaluating a patient with possible respiratory tract infection. The [employer] RP2.1 assay has FDA clearance for testing of FREE[employer]ER UNLOADER swabs. The performance of additional specimen types has been assessed by the performing laboratory. The performance characteristics of this assay have been determined by [facility]. Current interpretive data was last revised on 21. Aurea Fine FREEZER UNLOADER LAB MICROBIOLOGY - GENERAL ORDERABLES Final Result [facility] [place] [address] * XR Chest PA Lateral 2 Views (04/06/2024 11:28 AM HEAVY MOBILE EQUIPMENT REPAIRER) Anatomical Region Laterality Modality Body, Chest N/A Computed Radiogr aphy 04/06/2024 11:4 3 AM HEAVY MOBILE EQUIPMENT REPAIRER Impressions 04/06/2024 6:32 PM HEAVY MOBILE EQUIPMENT REPAIRER FINDINGS/IMPRESSION: Sternotomy plates and wires overlie the chest. Lungs are clear. No pleural effusion or pneumothorax. Cardiac mediastinal silhouette is stable when compared to prior radiograph. Dictated by: Giorgi Rincon MD The radiology attending physician has personally reviewed this study, and had reviewed and/or edited this written report and agrees with it. Electronically signed by: Larry Red M.D. Narrative 04/06/2024 6:32 PM HEAVY MOBILE EQUIPMENT REPAIRER EXAMINATION: XR CHEST PA LATERAL 2 VIEWS HISTORY: Shortness of Breath COMPARISON: X-ray from 01/25/2024 Procedure Note Larry Red MD PhD - 04/06/2024 EXAMINATION: XR CHEST PA LATERAL 2 VIEWS HISTORY: Shortness of Breath COMPARISON: X-ray from 01/25/2024 IMPRESSION: FINDINGS/IMPRESSION: Sternotomy plates and wires overlie the chest. Lungs are clear. No pleural effusion or pneumothorax. Cardiac mediastinal silhouette is stable when compared to prior radiograph. Dictated by: Giorgi Rincon MD The radiology attending physician has personally reviewed this study, and had reviewed and/or edited this written report and agrees with it. Electronically signed by: Larry Red M.D. Aurea Fine [employer] IMG XR PROCEDURES Final Re sult * (ABNORMAL) POCT urinalysis dipstick (04/06/2024 10:35 AM HEAVY MOBILE EQUIPMENT REPAIRER) Glucose, ur, POC Negative Negative MG/DL Bilirubin, ur, POC Negative Negative, Small, Moderate, Large Ketones, ur, POC Negative Negative Specific Smoot, POC 1.025 1.003 - 1.030 Blood, ur, POC Negative Negative pH, ur, POC 5.5 5.0 - 8.0 Protein, ur, POC 1+(A) Negative Urobilinogen, urine, POC 0.2 0.2 - 1.0 mg/dL Nitrite, ur, POC Negative Negative Leukocytes, ur, POC 1+(A) Negative Lot Number [id number] Urine 04/06/2024 10:3 5 AM HEAVY MOBILE EQUIPMENT REPAIRER Aurea Fine [employer]ER POINT OF CARE TEST ORDERAB LES Final Result * BK virus, DNA, quantitative Blood (04/05/2024 9:00 AM HEAVY MOBILE EQUIPMENT REPAIRER) Pathologist [facility] BK Virus DNA, PCR Negative Negative IU/mL [facility] - 01 Comment: No BK DNA detected. The linear range of the assay is 22 - 100,000,000 IU/mL. Blood 04/05/2024 9:00 AM HEAVY MOBILE EQUIPMENT REPAIRER 04/05/2024 Narrative [facility] - 04/07/2024 2:09 PM HEAVY MOBILE EQUIPMENT REPAIRER Performed at: [address] [place] [id number] Artificial Teeth Inspector: Agustina Tyler MD, Phone: [phone] Jack Morrison MD LAB MICROBIOLOGY - GENERAL O RDERABLES Final Result [facility] - 01 * Tacrolimus level trough (04/05/2024 8:59 AM HEAVY MOBILE EQUIPMENT REPAIRER) Pathologist [facility] Tacrolimus (FK506), Blood 11.7 5.0 - 20.0 ng/mL [facility] - 01 Comment: Target steady state trough concentration for Tacrolimus varies based on type of organ transplant immunosuppressive protocol and other patient specific factors. Tacrolimus trough concentrations should be interpreted in conjunction with clinical assessments of rejection and tolerability. Values obtained with different assay methods cannot be used interchangeably due to differences in assay methods and cross-reactivty with metabolites, nor should correction factors be applied. Therefore, consistent use of one assay for individual patients is recommended. Detection Limit = 0.5 ng/mL Performed by LC-MS/MS technology Please note reference interval change Blood 04/05/2024 8:59 AM HEAVY MOBILE EQUIPMENT REPAIRER 04/05/2024 Narrative [facility] - 04/07/2024 8:07 PM HEAVY MOBILE EQUIPMENT REPAIRER Test(s) [id number] (FK506), Blood was developed and its performance characteristics determined by [facility]. It has not been cleared or approved by the Food and Drug Administration. Performed at: [facility] [id number] Artificial Teeth Inspector: Agustina Tyler MD, Phone: [phone] us Jack Morrison MD LAB BLOOD ORDERABLES Final [facility]ult [facility] - 01 * (ABNORMAL) Renal function panel (04/05/2024 8:58 AM HEAVY MOBILE EQUIPMENT REPAIRER) Pathologist [facility] Glucose 129(H) 70 - 99 mg/dL [facility] - 01 BUN 34(H) 8 - 27 mg/dL [facility] - 01 Creatinine, Serum 2.67(H) 0.76 - 1.27 mg/dL [facility] - 01 eGFR 26(L) >59 mL/min/1.7 3 [facility] - 01 BUN/creat ratio 13 10 - 24 [facility] - 01 Sodium 133(L) 134 - 144 mmol/L [facility] - 01 Potassium, sr 4.5 3.5 - 5.2 mmol/L [facility] - 01 Chloride 97 96 - 106 mmol/L [facility] - 01 CO2 23 20 - 29 mmol/L [facility] - 01 Calcium 10.2 8.6 - 10.2 mg/dL [facility] - 01 Phosphorus, sr 2.7(L) 2.8 - 4.1 mg/dL [facility] - 01 Albumin 3.9 3.9 - 4.9 g/dL [facility] - 01 Blood 04/05/2024 8:58 AM HEAVY MOBILE EQUIPMENT REPAIRER 04/05/2024 Narrative [facility] - 04/06/2024 4:07 AM HEAVY MOBILE EQUIPMENT REPAIRER Performed at: [facility] [id number] Artificial Teeth Inspector: Prabhjot Trammell PhD, Phone: [phone] us Jack Morrison MD LAB BLOOD ORDERABLES Final R esult [facility] - * (ABNORMAL) Renal function panel (04/05/2024 8:57 AM HEAVY MOBILE EQUIPMENT REPAIRER) Pathologist [facility] Glucose 124(H) 70 - 99 mg/dL [facility] - 01 BUN 33(H) 8 - 27 mg/dL [facility] - 01 Creatinine, Serum 2.71(H) 0.76 - 1.27 mg/dL [facility] - 01 eGFR 25(L) >59 mL/min/1.7 3 [facility] - 01 BUN/creat ratio 12 10 - 24 [facility] - 01 Sodium 133(L) 134 - 144 mmol/L [facility] - 01 Potassium, sr 4.5 3.5 - 5.2 mmol/L [facility] - 01 Chloride 97 96 - 106 mmol/L [facility] - 01 CO2 24 20 - 29 mmol/L [facility] - 01 Calcium 10.1 8.6 - 10.2 mg/dL [facility] - 01 Phosphorus, sr 2.6(L) 2.8 - 4.1 mg/dL [facility] - 01 Albumin 3.9 3.9 - 4.9 g/dL [facility] - 01 Blood 04/05/2024 8:57 AM HEAVY MOBILE EQUIPMENT REPAIRER 04/05/2024 Narrative [facility] - 04/06/2024 4:07 AM HEAVY MOBILE EQUIPMENT REPAIRER Performed at: [address] [place] [id number] Artificial Teeth Inspector: Prabhjot Trammell PhD, Phone: [phone] Jack Morrison MD LAB BLOOD ORDERABLES Final R esult [facility] - 01 * BK virus, DNA, quantitative Blood (03/29/2024 11:28 AM HEAVY MOBILE EQUIPMENT REPAIRER) Pathologist [facility] BK Virus DNA, PCR Negative Negative IU/mL [facility] - 01 Comment: No BK DNA detected. The linear range of the assay is 22 - 100,000,000 IU/mL. Blood 03/29/2024 11:2 8 AM HEAVY MOBILE EQUIPMENT REPAIRER 03/29/2024 Narrative [facility] - 03/31/2024 2:09 PM HEAVY MOBILE EQUIPMENT REPAIRER Performed at: [address] [place] [id number] Artificial Teeth Inspector: Agustina Tyler MD, Phone: [phone] Jack Morrison MD LAB MICROBIOLOGY - GENERAL O RDERABLES Final Result Performing Organization Address [facility] de Phone Number [facility] - * Tacrolimus level trough (03/29/2024 11:27 AM HEAVY MOBILE EQUIPMENT REPAIRER) [facility] Tacrolimus (FK506), Blood 4.6 2.0 - 20.0 ng/mL [facility] - 01 Comment: Trough (immediately following transplant) 15.0 Trough (steady state, 2 weeks or more after transplant): 3.0 - 8.0 Performed by LC-MS/MS technology. Effective April 02, 2024 the reference interval for Tacrolimus will be updated to: 5.0 - 20.0 ng/mL Blood 03/29/2024 11:2 7 AM HEAVY MOBILE EQUIPMENT REPAIRER 03/29/2024 Narrative [facility] - 04/01/2024 4:09 PM HEAVY MOBILE EQUIPMENT REPAIRER Test(s) [id number] (FK506), Blood was developed and its performance characteristics determined by [facility]. It has not been cleared or approved by the Food and Drug Administration. Performed at: [address] [place] [id number] Artificial Teeth Inspector: Agustina Tyler MD, Phone: [phone] Jack Morrison MD LAB BLOOD ORDERABLES Final R esult Performing Organization Address [facility] Co de Phone Number [facility] - * (ABNORMAL) CBC with auto differential (03/29/2024 11:26 AM HEAVY MOBILE EQUIPMENT REPAIRER) [facility] WBC 4.7 3.4 - 10.8 x10E3/uL [facility] - 01 RBC 3.54(L) 4.14 - 5.80 x10E6/uL [facility] - 01 Hgb 11.5(L) 13.0 - 17.7 g/dL [facility] - 01 Hct 34.3(L) 37.5 - 51.0 % [facility] - 01 MCV 97 79 - 97 fL [facility] - 01 MCH 32.5 26.6 - 33.0 pg [facility] - 01 MCHC 33.5 31.5 - 35.7 g/dL [facility] - 01 Rdw 13.0 11.6 - 15.4 % [facility] - 01 Platelets 236 150 - 450 x10E3/uL [facility] - 01 Neutrophils pct 85 Not Estab. % [facility] - 01 Lymphs pct 5 Not Estab. % [facility] - 01 Monocytes pct 9 Not Estab. % [facility] - 01 Eosinophils pct 0 Not Estab. % [facility] - 01 Basophil pct 1 Not Estab. % [facility] - 01 Neutrophil abs 4.0 1.4 - 7.0 x10E3/uL [facility] - 01 Lymphs (Absolute) 0.2(L) 0.7 - 3.1 x10E3/uL [facility] - 01 Monocyte abs 0.4 0.1 - 0.9 x10E3/uL [facility] - 01 Eosinophils, abs 0.0 0.0 - 0.4 x10E3/uL [facility] - 01 Basophils, abs 0.0 0.0 - 0.2 x10E3/uL [facility] - 01 Hematology Comments: Note: [facility] - 01 Comment:Manual differential was performed. Blood 03/29/2024 11:2 6 AM HEAVY MOBILE EQUIPMENT REPAIRER 03/29/2024 Narrative [facility] - 03/30/2024 3:07 AM HEAVY MOBILE EQUIPMENT REPAIRER Performed at: - [facility] [id number] Artificial Teeth Inspector: Prabhjot Trammell PhD, Phone: [phone] us Jack Morrison MD LAB BLOOD ORDERABLES Final R esult [facility] - * (ABNORMAL) Renal function panel (03/29/2024 11:25 AM HEAVY MOBILE EQUIPMENT REPAIRER) Pathologist [facility] Glucose 113(H) 70 - 99 mg/dL [facility] - 01 BUN 35(H) 8 - 27 mg/dL [facility] - 01 Creatinine, Serum 2.43(H) 0.76 - 1.27 mg/dL [facility] - 01 eGFR 29(L) >59 mL/min/1.7 3 [facility] - 01 BUN/creat ratio 14 10 - 24 [facility] - 01 Sodium 139 134 - 144 mmol/L [facility] - 01 Potassium, sr 5.3(H) 3.5 - 5.2 mmol/L [facility] - 01 Chloride 103 96 - 106 mmol/L [facility] - 01 CO2 22 20 - 29 mmol/L [facility] - 01 Calcium 10.0 8.6 - 10.2 mg/dL [facility] - 01 Phosphorus, sr 2.9 2.8 - 4.1 mg/dL [facility] - 01 Albumin 4.0 3.9 - 4.9 g/dL [facility] - 01 Blood 03/29/2024 11:2 5 AM HEAVY MOBILE EQUIPMENT REPAIRER 03/29/2024 Narrative [facility] - 03/30/2024 2:09 PM HEAVY MOBILE EQUIPMENT REPAIRER Performed at: [address] [id number] Artificial Teeth Inspector: Prabhjot Trammell PhD, Phone: [phone] Jack Morrison MD LAB BLOOD ORDERABLES Final R esult [facility] - 01 * BK virus, DNA, quantitative Blood (03/23/2024 12:07 PM HEAVY MOBILE EQUIPMENT REPAIRER) [facility] BK Virus DNA, PCR Negative Negative IU/mL [facility] - Comment: No BK DNA detected. The linear range of the assay is 22 - 100,000,000 IU/mL. Blood 03/23/2024 12:0 7 PM HEAVY MOBILE EQUIPMENT REPAIRER 03/23/2024 Narrative [facility] - 03/25/2024 12:09 PM HEAVY MOBILE EQUIPMENT REPAIRER Performed at: [address] [id number] Artificial Teeth Inspector: Agustina Tyler MD, Phone: [phone] Jack Morrison MD LAB MICROBIOLOGY - GENERAL O RDERABLES Final Result Performing Organization Address [facility] Co de Phone Number [facility] - 01 * Tacrolimus level trough (03/23/2024 12:06 PM HEAVY MOBILE EQUIPMENT REPAIRER) [facility] Tacrolimus (FK506), Blood 5.9 2.0 - 20.0 ng/mL [facility] - 01 Comment: Trough (immediately following transplant) 15.0 Trough (steady state, 2 weeks or more after transplant): 3.0 - 8.0 Performed by LC-MS/MS technology. Effective April 02, 2024 the reference interval for Tacrolimus will be updated to: 5.0 - 20.0 ng/mL Blood 03/23/2024 12:0 6 PM HEAVY MOBILE EQUIPMENT REPAIRER 03/23/2024 Narrative [facility] - 03/26/2024 8:07 PM HEAVY MOBILE EQUIPMENT REPAIRER Test(s) [id number] (FK506), Blood was developed and its performance characteristics determined by [employer]. It has not been cleared or approved by the Food and Drug Administration. Performed at: [address] [id number] Artificial Teeth Inspector: Agustina Tyler MD, Phone: [phone] us Jack Morrison MD LAB BLOOD ORDERABLES Final R esult Performing Organization Address [facility] Co de Phone Number [facility] - * (ABNORMAL) CBC with auto differential (03/23/2024 12:05 PM HEAVY MOBILE EQUIPMENT REPAIRER) [facility] WBC 7.0 3.4 - 10.8 x10E3/uL [facility] - 01 RBC 3.60(L) 4.14 - 5.80 x10E6/uL [facility] - 01 Hgb 11.9(L) 13.0 - 17.7 g/dL [facility] - 01 Hct 35.8(L) 37.5 - 51.0 % [facility] - 01 MCV 99(H) 79 - 97 fL [facility] - 01 MCH 33.1(H) 26.6 - 33.0 pg [facility] - 01 MCHC 33.2 31.5 - 35.7 g/dL [facility] - 01 Rdw 13.1 11.6 - 15.4 % [facility] - 01 Platelets 212 150 - 450 x10E3/uL [facility] - 01 Neutrophils pct 85 Not Estab. % [facility] - 01 Lymphs pct 4 Not Estab. % [facility] - 01 Monocytes pct 7 Not Estab. % [facility] - 01 Eosinophils pct 1 Not Estab. % [facility] - 01 Basophil pct 1 Not Estab. % [facility] - 01 Neutrophil abs 6.0 1.4 - 7.0 x10E3/uL [facility] - 01 Lymphs (Absolute) 0.3(L) 0.7 - 3.1 x10E3/uL [facility] - 01 Monocyte abs 0.5 0.1 - 0.9 x10E3/uL [facility] - 01 Eosinophils, abs 0.1 0.0 - 0.4 x10E3/uL [facility] - 01 Basophils, abs 0.0 0.0 - 0.2 x10E3/uL [facility] - 01 Immature Granulocytes 2 Not Estab. % [facility] - 01 Immature Grans (Abs) 0.2(H) 0.0 - 0.1 x10E3/uL [facility] - 01 Comment: (An elevated percentage of Immature Granulocytes has not been found to be clinically significant as a sole clinical predictor of disease. Does NOT include bands or blast cells. associated physiological leukocytosis may also show increased immature granulocytes without clinical significance.) Blood 03/23/2024 12:0 5 PM HEAVY MOBILE EQUIPMENT REPAIRER 03/23/2024 Narrative [facility] - 03/24/2024 6:09 AM HEAVY MOBILE EQUIPMENT REPAIRER Performed at: - [address] [id number] Artificial Teeth Inspector: Prabhjot Trammell PhD, Phone: [phone] us Jack Morrison MD LAB BLOOD ORDERABLES Final R esult [facility] - * (ABNORMAL) Renal function panel (03/23/2024 12:04 PM HEAVY MOBILE EQUIPMENT REPAIRER) Pathologist [facility] Glucose 115(H) 70 - 99 mg/dL [facility] - 01 BUN 37(H) 8 - 27 mg/dL [facility] - 01 Creatinine, Serum 2.57(H) 0.76 - 1.27 mg/dL [facility] - 01 eGFR 27(L) >59 mL/min/1.7 3 [facility] - 01 BUN/creat ratio 14 10 - 24 [facility] - 01 Sodium 138 134 - 144 mmol/L [facility] - 01 Potassium, sr 5.5(H) 3.5 - 5.2 mmol/L [facility] - 01 Chloride 102 96 - 106 mmol/L [facility] - 01 CO2 20 20 - 29 mmol/L [facility] - 01 Calcium 10.1 8.6 - 10.2 mg/dL [facility] - 01 Phosphorus, sr 2.6(L) 2.8 - 4.1 mg/dL [facility] - 01 Albumin 3.9 3.9 - 4.9 g/dL [facility] - 01 Blood 03/23/2024 12:0 4 PM HEAVY MOBILE EQUIPMENT REPAIRER 03/23/2024 Narrative [facility] - 03/24/2024 9:36 AM HEAVY MOBILE EQUIPMENT REPAIRER Performed at: [facility] [id number] Artificial Teeth Inspector: Prabhjot Trammell PhD, Phone: [phone] us Jack Morrison MD LAB BLOOD ORDERABLES Final R esult [facility] - 01 * IR Inject Abscess Catheter (03/22/2024 10:05 AM HEAVY MOBILE EQUIPMENT REPAIRER) Anatomical Region Laterality Modality Body N/A Radio Fluoroscop y 03/22/2024 10:1 6 AM HEAVY MOBILE EQUIPMENT REPAIRER Impressions 03/22/2024 10:16 AM HEAVY MOBILE EQUIPMENT REPAIRER Resolved collection with no evidence of fistula to adjacent structures. Catheter was removed. PLAN: Advise patient to monitor for any new symptoms. He will follow up with us as needed. If questions arise, please contact us by calling [phone]. 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 During his last checked on 03/08, the drain and superficial collection was removed. The perinephric collection was noted to be improving. Aeration today reports minimal output from the remaining drain, less than 20 mL of yellowish output daily. Otherwise, patient reports that he is doing well. PROVIDER PRESENCE: Radha Barrios PA-C, was present from the beginning to the end of the procedure. Discussed with Dr. Sharpe. SEDATION: None TECHNIQUE: Prior to beginning the procedure, [place] Protocol was used to confirm the patient's identity and planned procedure. Fluoroscopy time has been recorded in the electronic medical record. After obtaining a refresh technician image, the catheter was injected with dilute contrast and multiple fluoroscopic images obtained. The sutures on the catheter were cut and the catheter was removed without difficulty. A sterile dressing was applied to the skin site. ESTIMATED BLOOD LOSS: Minimal. CONDITION: Stable DISCHARGED TO: Recovery and then to Home. FINDINGS: Images from the catheter check demonstrate the cavity has resolved, contrast just filling up the catheter. 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 During his last checked on 03/08, the drain and superficial collection was removed. The perinephric collection was noted to be improving. Aeration today reports minimal output from the remaining drain, less than 20 mL of yellowish output daily. Otherwise, patient reports that he is doing well. PROVIDER PRESENCE: Radha Barrios PA-C, was present from the beginning to the end of the procedure. Discussed with Dr. Sharpe. SEDATION: None TECHNIQUE: Prior to beginning the procedure, [place] Protocol was used to confirm the patient's identity and planned procedure. Fluoroscopy time has been recorded in the electronic medical record. After obtaining a refresh technician image, the catheter was injected with dilute contrast and multiple fluoroscopic images obtained. The sutures on the catheter were cut and the catheter was removed without difficulty. A sterile dressing was applied to the skin site. ESTIMATED BLOOD LOSS: Minimal. CONDITION: Stable DISCHARGED TO: Recovery and then to Home. FINDINGS: Images from the catheter check demonstrate the cavity has resolved, contrast just filling up the catheter. IMPRESSION: Resolved collection with no evidence of fistula to adjacent structures. Catheter was removed. PLAN: Advise patient to monitor for any new symptoms. He will follow up with us as needed. If questions arise, please contact us by calling [phone]. Electronically signed by: Radha Barrios PA-C Flori LEE IMG IR PROCEDURES Final Res ult * Lipid panel (03/15/2024 9:49 AM HEAVY MOBILE EQUIPMENT REPAIRER) Pathologist [facility] Cholesterol 106 100 - 199 mg/dL [facility] - 01 Triglycerides 88 0 - 149 mg/dL [facility] - 01 HDL Cholesterol 44 >39 mg/dL [facility] - 01 VLDL 17 5 - 40 mg/dL [facility] - 01 LDL, calculated 45 0 - 99 mg/dL [facility] - 01 Blood 03/15/2024 9:49 AM HEAVY MOBILE EQUIPMENT REPAIRER 03/15/2024 Narrative [facility] - 03/16/2024 3:07 AM HEAVY MOBILE EQUIPMENT REPAIRER Performed at: [address] [id number] Artificial Teeth Inspector: Prabhjot Trammell PhD, Phone: [phone] Jack Morrison MD LAB BLOOD ORDERABLES Final R esult Performing Organization Address [facility] Co de Phone Number [facility] - 01 * BK virus, DNA, quantitative Blood (03/15/2024 9:48 AM HEAVY MOBILE EQUIPMENT REPAIRER) [facility] BK Virus DNA, PCR Negative Negative IU/mL [facility] - 01 Comment: No BK DNA detected. The linear range of the assay is 22 - 100,000,000 IU/mL. Blood 03/15/2024 9:48 AM HEAVY MOBILE EQUIPMENT REPAIRER 03/15/2024 Narrative [facility] - 03/18/2024 12:09 PM HEAVY MOBILE EQUIPMENT REPAIRER Performed at: [facility] [address] [id number] Artificial Teeth Inspector: Agustina Tyler MD, Phone: [phone] Jack Morrison MD LAB MICROBIOLOGY - GENERAL O RDERABLES Final Result Performing Organization Address [facility] Co de Phone Number [facility] - 01 * (ABNORMAL) Hepatic function panel (03/15/2024 9:48 AM HEAVY MOBILE EQUIPMENT REPAIRER) [facility] Protein, sr 6.4 6.0 - 8.5 g/dL [facility] - 01 Albumin 4.0 3.9 - 4.9 g/dL [facility] - 01 Bilirubin, Total 0.4 0.0 - 1.2 mg/dL [facility] - 01 Bilirubin, direct 0.14 0.00 - 0.40 mg/dL [facility] - 01 Alk phos 154(H) 44 - 121 IU/L [facility] - 01 AST 13 0 - 40 IU/L [facility] - 01 ALT 8 0 - 44 IU/L [facility] - 01 Blood 03/15/2024 9:48 AM HEAVY MOBILE EQUIPMENT REPAIRER 03/15/2024 Narrative [facility] - 03/16/2024 4:07 AM HEAVY MOBILE EQUIPMENT REPAIRER Performed at: - [address] [id number] Artificial Teeth Inspector: Prabhjot Trammell PhD, Phone: [phone] us Jack Morrison MD LAB BLOOD ORDERABLES Final R esult Performing Organization Address [facility] Co de Phone Number [facility] - 01 * Tacrolimus level trough (03/15/2024 9:47 AM HEAVY MOBILE EQUIPMENT REPAIRER) [facility] Tacrolimus (FK506), Blood 4.4 2.0 - 20.0 ng/mL [facility] - 01 Comment: Trough (immediately following transplant) 15.0 Trough (steady state, 2 weeks or more after transplant): 3.0 - 8.0 Performed by LC-MS/MS technology. Effective April 02, 2024 the reference interval for Tacrolimus will be updated to: 5.0 - 20.0 ng/mL Blood 03/15/2024 9:47 AM HEAVY MOBILE EQUIPMENT REPAIRER 03/15/2024 Narrative [facility] - 03/19/2024 12:08 PM HEAVY MOBILE EQUIPMENT REPAIRER Test(s) [id number] (FK506), Blood was developed and its performance characteristics determined by [facility]. It has not been cleared or approved by the Food and Drug Administration. Performed at: - [facility] [address] [id number] Artificial Teeth Inspector: Agustina Tyler MD, Phone: [phone] us Jack Morrison MD LAB BLOOD ORDERABLES Final R esult [facility] - 01 * (ABNORMAL) CBC with auto differential (03/15/2024 9:47 AM HEAVY MOBILE EQUIPMENT REPAIRER) Pathologist [facility] WBC 5.4 3.4 - 10.8 x10E3/uL [facility] - 01 RBC 3.86(L) 4.14 - 5.80 x10E6/uL [facility] - 01 Hgb 12.4(L) 13.0 - 17.7 g/dL [facility] - 01 Hct 38.8 37.5 - 51.0 % [facility] - 01 MCV 101(H) 79 - 97 fL [facility] - 01 MCH 32.1 26.6 - 33.0 pg [facility] - 01 MCHC 32.0 31.5 - 35.7 g/dL [facility] - 01 Rdw 14.0 11.6 - 15.4 % [facility] - 01 Platelets 219 150 - 450 x10E3/uL [facility] - 01 Neutrophils pct 86 Not Estab. % [facility] - 01 Lymphs pct 4 Not Estab. % [facility] - 01 Monocytes pct 6 Not Estab. % [facility] - 01 Eosinophils pct 1 Not Estab. % [facility] - 01 Basophil pct 1 Not Estab. % [facility] - 01 Neutrophil abs 4.7 1.4 - 7.0 x10E3/uL [facility] - 01 Lymphs (Absolute) 0.2(L) 0.7 - 3.1 x10E3/uL [facility] - 01 Monocyte abs 0.4 0.1 - 0.9 x10E3/uL [facility] - 01 Eosinophils, abs 0.0 0.0 - 0.4 x10E3/uL [facility] - 01 Basophils, abs 0.1 0.0 - 0.2 x10E3/uL [facility] - 01 Immature Granulocytes 2 Not Estab. % [facility] - 01 Immature Grans (Abs) 0.1 0.0 - 0.1 x10E3/uL [facility] - 01 Blood 03/15/2024 9:47 AM HEAVY MOBILE EQUIPMENT REPAIRER 03/15/2024 Narrative [facility] - 03/16/2024 3:07 AM HEAVY MOBILE EQUIPMENT REPAIRER Performed at: [address] [id number] Artificial Teeth Inspector: Prabhjot Trammell PhD, Phone: [phone] us Jack Morrison MD LAB BLOOD ORDERABLES Final R esult [facility] * (ABNORMAL) Renal function panel (03/15/2024 9:46 AM HEAVY MOBILE EQUIPMENT REPAIRER) Pathologist [facility] Glucose 115(H) 70 - 99 mg/dL [facility] - 01 BUN 31(H) 8 - 27 mg/dL [facility] - 01 Creatinine, Serum 2.32(H) 0.76 - 1.27 mg/dL [facility] - 01 eGFR 30(L) >59 mL/min/1.7 3 [facility] - 01 BUN/creat ratio 13 10 - 24 [facility] - 01 Sodium 141 134 - 144 mmol/L [facility] - 01 Potassium, sr 4.8 3.5 - 5.2 mmol/L [facility] - 01 Chloride 106 96 - 106 mmol/L [facility] - 01 CO2 20 20 - 29 mmol/L [facility] - 01 Calcium 10.2 8.6 - 10.2 mg/dL [facility] - 01 Phosphorus, sr 2.7(L) 2.8 - 4.1 mg/dL [facility] - 01 Albumin 4.1 3.9 - 4.9 g/dL [facility] - 01 Blood 03/15/2024 9:46 AM HEAVY MOBILE EQUIPMENT REPAIRER 03/15/2024 Narrative [facility] - 03/16/2024 4:07 AM HEAVY MOBILE EQUIPMENT REPAIRER Performed at: [address] [id number] Artificial Teeth Inspector: Prabhjot Trammell PhD, Phone: [phone] Jack Morrison MD LAB BLOOD ORDERABLES Final R esult [facility] - 01 * (ABNORMAL) POCT urinalysis dipstick (03/10/2024 8:47 AM HEAVY MOBILE EQUIPMENT REPAIRER) [facility] Color, Urine, POC Yellow Clarity, ur, POC Clear Clear Glucose, ur, POC Negative Negative MG/DL Ketones, ur, POC Negative Negative Blood, ur, POC 3+(A) Negative pH, ur, POC 5.0 5.0 - 8.0 Protein, ur, POC Trace(A) Negative Nitrite, ur, POC Negative Negative Leukocytes, ur, POC Trace(A) Negative Lot Number 0 Urine 03/10/2024 8:47 AM HEAVY MOBILE EQUIPMENT REPAIRER Roscoe Peck MD POINT OF CARE TEST ORDERABLES Final Result * BK virus PCR quantitative Blood (03/10/2024 8:21 AM HEAVY MOBILE EQUIPMENT REPAIRER) [facility] BKV DNA result, pl Not Detected [facility] Comment: The quantifiable range of this assay is 21.5 IU/mL to 100,000,000 IU/mL (1.33 log IU/mL to 8.00 log IU/mL). Testing was performed by the WALDEMAR 6800 BKV Quantatitive Test version 2.0 ([employer] Testing performed at [facility] Current Interpretive Data was last revised on 2020. Blood 03/10/2024 8:21 AM HEAVY MOBILE EQUIPMENT REPAIRER 03/10/2024 8:43 AM HEAVY MOBILE EQUIPMENT REPAIRER us Jakc Morrison MD LAB MICROBIOLOGY - GENERAL O RDERABLES Final Result LINDA [facility] [place] [address] [facility] * (ABNORMAL) eGFR (03/10/2024 8:21 AM HEAVY MOBILE EQUIPMENT REPAIRER) [facility] eGFR 22(L) >=60 mL/min/1. 73 m2 Comment: Interpretive Data Reference Interval Normal >/= 90 mL/min/1.73m2 Mildly decreased* 60 - 89 mL/min/1.73m2 Mildly to moderately decreased 45 - 59 mL/min/1.73m2 Moderately to severely decreased 30 - 44 mL/min/1.73m2 Severely decreased 15 - 29 mL/min/1.73m2 Kidney Failure < 15 mL/min/1.73m2 *Relative to young adult level Estimated glomerular filtration rate is determined by the 2020 CKD-EPI equation recommended by the National Kidney Foundation (A Unifying Approach to GFR Estimation: Recommendations of the NKF-ASK Task Force on Reassessing the Inclusion of Race in Diagnosing Kidney Disease, JASN 2020). The CKD-EPI equation should not be used for patients with unstable renal function and has not been validated in children and those over 70. Current interpretive data was last reviewed 2020. Blood 03/10/2024 8:21 AM HEAVY MOBILE EQUIPMENT REPAIRER 03/10/2024 8:42 AM HEAVY MOBILE EQUIPMENT REPAIRER us Jack Morrison MD LAB BLOOD ORDERABLES Final R esult [facility] [place] [address] * (ABNORMAL) Differential, auto (03/10/2024 8:21 AM HEAVY MOBILE EQUIPMENT REPAIRER) Neutrophil abs 4.9 1.5 - 6.5 K/cumm Imm gran abs 0.0 0.0 - 0.1 K/cumm [facility] Lymphocyte abs 0.3(L) 0.8 - 3.3 K/cumm [facility] Monocyte abs 0.4 0.2 - 0.8 K/cumm [facility] Eosinophil abs 0.0 0.0 - 0.5 K/cumm [facility] Basophil abs 0.0 0.0 - 0.1 K/cumm [facility] Neutrophil pct 86.2 % [facility] Comment: Interpretive Data Percent cell count reference ranges are not reported, since discordance with absolute values may lead to misinterpretation of CBC data. Current Interpretive Data was last revised on 2017. Imm gran pct 0.7 % [facility] Comment: Interpretive Data Percent cell count reference ranges are not reported, since discordance with absolute values may lead to misinterpretation of CBC data. Current Interpretive Data was last revised on 2017. Lymphocyte pct 4.9 % [facility] Comment: Interpretive Data Percent cell count reference ranges are not reported, since discordance with absolute values may lead to misinterpretation of CBC data. Current Interpretive Data was last revised on 2017. Monocyte pct 7.2 % [facility] Comment: Interpretive Data Percent cell count reference ranges are not reported, since discordance with absolute values may lead to misinterpretation of CBC data. Current Interpretive Data was last revised on 2017. Eosinophil pct 0.3 % [facility] Comment: Interpretive Data Percent cell count reference ranges are not reported, since discordance with absolute values may lead to misinterpretation of CBC data. Current Interpretive Data was last revised on 2017. Basophil pct 0.7 % [facility] Comment: Interpretive Data Percent cell count reference ranges are not reported, since discordance with absolute values may lead to misinterpretation of CBC data. Current Interpretive Data was last revised on 2017. Blood 03/10/2024 8:21 AM HEAVY MOBILE EQUIPMENT REPAIRER 03/10/2024 8:39 AM HEAVY MOBILE EQUIPMENT REPAIRER us Jack Morrison MD LAB BLOOD ORDERABLES Final R esult [facility] [place] [address] * (ABNORMAL) CBC with auto differential (03/10/2024 8:21 AM HEAVY MOBILE EQUIPMENT REPAIRER) WBC 5.7 3.8 - 9.9 K/cumm Hgb 12.1(L) 13.0 - 17.5 g/dL [facility] Hct 36.1(L) 38.9 - 50.3 % [facility] Plt 220 150 - 400 K/cumm [facility] MPV 9.8 9.1 - 12.3 fL [facility] RBC 3.65(L) 4.30 - 5.80 M/cumm [facility] MCV 98.9(H) 81.3 - 96.4 fL [facility] MCH 33.2 27.1 - 33.3 pg [facility] MCHC 33.5 32.3 - 35.7 g/dL [facility] RDW CV 14.2 11.1 - 14.9 % [facility] RDW SD 52.4(H) 35.7 - 48.1 fL [facility] NRBC abs 0.00 0.00 - 0.01 K/cumm [facility] Blood 03/10/2024 8:21 AM HEAVY MOBILE EQUIPMENT REPAIRER 03/10/2024 8:39 AM HEAVY MOBILE EQUIPMENT REPAIRER Jack Morrison MD LAB BLOOD ORDERABLES Final R esult Performing Organization Address [facility] de Phone Number [facility] Department [place] [address] * Tacrolimus level random (03/10/2024 8:21 AM HEAVY MOBILE EQUIPMENT REPAIRER) Tacrolimus random 9.0 ng/mL Comment: Interpretive Data Testing performed by liquid chromatography-tandem mass spectrometry. Therapeutic concentrations vary depending on type of transplanted organ and time elapsed since transplant. Typical trough concentrations range from 5-15 ng/mL. This test was developed and its performance characteristics determined by the [facility] consistent with CLIA requirements. This test has not been cleared or approved by the [place] Food and Drug administration. Current interpretive data last reviewed 2019. Blood 03/10/2024 8:21 AM HEAVY MOBILE EQUIPMENT REPAIRER 03/10/2024 8:39 AM HEAVY MOBILE EQUIPMENT REPAIRER Jack Morrison MD LAB BLOOD ORDERABLES Final R esult Performing Organization Address [facility] Co de Phone Number [facility] [place] [address] * Magnesium (03/10/2024 8:21 AM HEAVY MOBILE EQUIPMENT REPAIRER) Magnesium 2.0 1.4 - 2.5 mg/dL Blood 03/10/2024 8:21 AM HEAVY MOBILE EQUIPMENT REPAIRER 03/10/2024 8:39 AM HEAVY MOBILE EQUIPMENT REPAIRER us Jack Morrison MD LAB BLOOD ORDERABLES Final R esult [facility] [place] [address] * (ABNORMAL) Renal function panel (03/10/2024 8:21 AM HEAVY MOBILE EQUIPMENT REPAIRER) Sodium 142 135 - 145 mmol/L Potassium, pl 5.1(H) 3.3 - 4.9 mmol/L [facility] Chloride 108 97 - 110 mmol/L [facility] CO2 24 22 - 32 mmol/L [facility] Anion gap 10 2 - 15 mmol/L [facility] BUN 49(H) 6 - 25 mg/dL [facility] Creatinine 3.09(H) 0.80 - 1.30 mg/dL [facility] Glucose 91 70 - 199 mg/dL [facility] Comment: Interpretive Data Fasting glucose >/= 126 mg/dl is diagnostic for diabetes. Fasting is defined as no caloric intake for at least 8 hours. Fasting glucose between 100 mg/dl to 125 mg/dl is diagnostic of prediabetes. In a patient with classic symptoms of hyperglycemia or hyperglycemic crisis, a random glucose >/= 200 mg/dl is diagnostic for diabetes. In the absence of unequivocal hyperglycemia, results should be confirmed by repeat testing. The classification and Diagnosis of Diabetes Diabetes Care 2021; 46: S19-S40. Current interpretive data was last revised 2022. Calcium 10.2 8.5 - 10.3 mg/dL [facility] Phosphorus, pl 3.2 2.3 - 4.5 mg/dL [facility] Albumin 3.8 3.5 - 5.0 g/dL [facility] Blood 03/10/2024 8:21 AM HEAVY MOBILE EQUIPMENT REPAIRER 03/10/2024 8:39 AM HEAVY MOBILE EQUIPMENT REPAIRER us Jack Morrison MD LAB BLOOD ORDERABLES Final R esult [facility] [place] [address] * PET Stress Test (03/08/2024 3:12 PM HEAVY MOBILE EQUIPMENT REPAIRER) Anatomical Region Laterality Modality N/A Positron Emissio n Tomography (PET) 03/08/2024 4:13 PM HEAVY MOBILE EQUIPMENT REPAIRER Impressions 03/08/2024 4:13 PM HEAVY MOBILE EQUIPMENT REPAIRER Asymptomatic and electrocardiographically normal pharmacologic stress test I personally supervised and was present throughout the stress test. Refer to for the separate report of the PET myocardial perfusion imaging results. Electronically signed by: Jose Ortiz M.D. Narrative 03/08/2024 4:13 PM HEAVY MOBILE EQUIPMENT REPAIRER EXAMINATION: PHARMACOLOGIC STRESS TEST FOR CARDIAC PET MYOCARDIAL PERFUSION IMAGING DATE OF STUDY: 03/08/2024 INDICATION FOR STUDY: CP. CAD, T2MI s/p PCI 2006, AFIB, CABG 2020, HLD, DM, HTN, former smoker, obesity, PAD, s/p renal transplant 01/2024 PHARMACOLOGIC STRESS AGENT: 0.4 mg regadenoson i.v. FINDINGS: Resting electrocardiogram: SR with 65 BPM, normal access and first degree AVB, incomplete RBBB, q in DIII, r/s transition in v4, and normal repolarization Stress electrocardiogram: No arrhythmia and no ST alterations Symptoms during stress test: none Regadenoson Stress and hemodynamics: The patient received 0.4 mg of the A2A adenosine receptor agonist regadenoson (Lexiscan), infused intravenously over 10 seconds, followed approximately 20 seconds later by tracer infusion. Resting heart rate was 65 beats per minute and jessica to a maximum of 71 beats per minute two minutes post Lexiscan injection. Resting blood pressure was 169/81 mm Hg and dropped to a hank of 148/77 mm Hg. The test was stopped at the completion of the protocol. Procedure Note Jose Ortiz MD - 03/08/2024 EXAMINATION: PHARMACOLOGIC STRESS TEST FOR CARDIAC PET MYOCARDIAL PERFUSION IMAGING DATE OF STUDY: 03/08/2024 INDICATION FOR STUDY: CP. CAD, T2MI s/p PCI 2006, AFIB, CABG 2020, HLD, DM, HTN, former smoker, obesity, PAD, s/p renal transplant 01/2024 PHARMACOLOGIC STRESS AGENT: 0.4 mg regadenoson i.v. FINDINGS: Resting electrocardiogram: SR with 65 BPM, normal access and first degree AVB, incomplete RBBB, q in DIII, r/s transition in v4, and normal repolarization Stress electrocardiogram: No arrhythmia and no ST alterations Symptoms during stress test: none Regadenoson Stress and hemodynamics: The patient received 0.4 mg of the A2A adenosine receptor agonist regadenoson (Lexiscan), infused intravenously over 10 seconds, followed approximately 20 seconds later by tracer infusion. Resting heart rate was 65 beats per minute and jessica to a maximum of 71 beats per minute two minutes post Lexiscan injection. Resting blood pressure was 169/81 mm Hg and dropped to a hank of 148/77 mm Hg. The test was stopped at the completion of the protocol. IMPRESSION: Asymptomatic and electrocardiographically normal pharmacologic stress test I personally supervised and was present throughout the stress test. Refer to for the separate report of the PET myocardial perfusion imaging results. Electronically signed by: Jose Ortiz M.D. Marian Merino MD IMG PET PROCEDURES Final R esult * PET/CT Myocardial Perfusion Imaging (Multiple) (03/08/2024 3:12 PM HEAVY MOBILE EQUIPMENT REPAIRER) Anatomical Region Laterality Modality Body N/A Positron Emissio n Tomography (PET) 03/08/2024 3:55 PM HEAVY MOBILE EQUIPMENT REPAIRER Impressions 03/08/2024 4:09 PM HEAVY MOBILE EQUIPMENT REPAIRER 1. There is a eopho-uf-txfohgwl size and mild infarct involving the xakqs-ir-ihi-segments inferoseptally associated with moderate severe theresa-infarct ischemia during pharmacologic stress. 2. Marked left ventricular dilation and mild global hyopkinesis with severe hypo-to akinesis poltw-cp-jmr-segments inferoseptally. 3. Flow quantification with reduced global hyperemic MBF (1.44 mL/g/min) MFR (1.71) to signify moderate severe coronary microvascular dysfunction. In addition, regional hyperemic MBF is lowest with mean of 0.96 mL/g/min in the pre-described region of ischemia. (Please see table for detailed information) Dictated by: Jack Gallo, M.D. The radiology attending physician has personally reviewed this study, and had reviewed and/or edited this written report and agrees with it. Electronically signed by: Jose Ortiz M.D. Narrative 03/08/2024 4:09 PM HEAVY MOBILE EQUIPMENT REPAIRER EXAMINATION: MYOCARDIAL PET/CT PERFUSION IMAGING (STRESS/REST) DATE OF STUDY: 03/08/2024 SCANNER: mCT RADIOPHARMACEUTICAL: 7.73 mCi N-13 ammonia i.v., 15.14 mCi N-13 ammonia i.v., Injection site: R forearm HISTORY: Mr Ramone Coleman is a 63 year-old gentleman with history of HTN, HLD, CAD s/p PCI 2006 and CABG (MCCRACKEN-LAD, SVG-OM and PDA, 10/2020), PAD s/p recent vascular procedure on DAPT and T2DM with a recent reduction in LVEF who was referred for PET MPI by his Medical Transport Specialist (Dr. Merino). Evaluate for ischemia and/or microvascular dysfunction. The patient's body mass index (BMI) was 34%. TECHNIQUE: Both stress and rest imaging were performed, in the following order: rest/stress. Regadenoson Stress: The patient received 0.4 mg of the A2A adenosine receptor agonist regadenoson (Lexiscan) infused intravenously over 10 seconds, followed approximately 20 seconds later by radiopharmaceutical injection. The electrocardiogram during infusion of the stress agent was negative for ischemia. The patient reported no symptoms during vasodilation. See for a full report of the ECG pharmacologic stress test findings. Imaging: Dynamic peak-stress PET/CT myocardial perfusion images were obtained beginning immediately after radiopharmaceutical injection at the peak effect of the drug. A minimum of 40 minutes later, dynamic rest PET/CT myocardial perfusion images were obtained immediately after radiopharmaceutical injection under rest conditions. The low-dose noncontrast CT images were used for attenuation correction of the PET images and for localization of any abnormal extracardiac tracer uptake. COMPARISON: NM MPI SPECT (December 2021): large and moderately severe ischemia involving the basal to mid lateral wall and more pronounced anterolaterally. Normal rest perfusion. Enlarged LV cavity with mild global hypokinesis. FINDINGS: There is a axeif-zq-jgigihmr size and mild infarct involving the cmknz-ki-sjx-segments inferoseptally associated with moderate severe theresa-infarct ischemia during pharmacologic stress. Gated post-stress images demonstrate marked left ventricular dilation and mild global hyopkinesis with severe hypo-to akinesis rsbls-ap-onu-segments inferoseptally and the left ventricular ejection fraction is 34% (likely underestimated) (normal >45%). Additional gated rest images demonstrate same findings and a resting left ventricular ejection fraction of 32% (underestimated). Quantitative analysis of myocardial blood flow (MBF) in ml/g/min and myocardial flow reserve (MFR), calculated using 4DM software: MBF-stress MBF-rest MFR LAD: 1.48 0.87 1.71 LCx: 1.50 0.89 1.68 RCA: 1.33 0.77 1.73 Global: 1.44 0.84 1.72 (Normal values: rest MBF 0.8 - 1.2 mL/g/min; stress(hyperemic) MBF >2.0 mL/g/min; MFR>2.0) Incidental findings on the CT images: sternotomy, s.p. CABG and MV replacement, aortic calcification, splenic artery calcification, diffuse and mild opacities both lungs from base to middle part compatible with diffuse mild pulmonary edema, multilevel spondylosis. Procedure Note Jose Ortiz MD - 03/08/2024 EXAMINATION: MYOCARDIAL PET/CT PERFUSION IMAGING (STRESS/REST) DATE OF STUDY: 03/08/2024 SCANNER: mCT RADIOPHARMACEUTICAL: 7.73 mCi N-13 ammonia i.v., 15.14 mCi N-13 ammonia i.v., Injection site: R forearm HISTORY: Mr Ramone Coleman is a 63 year-old gentleman with history of HTN, HLD, CAD s/p PCI 2006 and CABG (MCCRACKEN-LAD, SVG-OM and PDA, 10/2020), PAD s/p recent vascular procedure on DAPT and T2DM with a recent reduction in LVEF who was referred for PET MPI by his Medical Transport Specialist (Dr. Merino). Evaluate for ischemia and/or microvascular dysfunction. The patient's body mass index (BMI) was 34%. TECHNIQUE: Both stress and rest imaging were performed, in the following order: rest/stress. Regadenoson Stress: The patient received 0.4 mg of the A2A adenosine receptor agonist regadenoson (Lexiscan) infused intravenously over 10 seconds, followed approximately 20 seconds later by radiopharmaceutical injection. The electrocardiogram during infusion of the stress agent was negative for ischemia. The patient reported no symptoms during vasodilation. See for a full report of the ECG pharmacologic stress test findings. Imaging: Dynamic peak-stress PET/CT myocardial perfusion images were obtained beginning immediately after radiopharmaceutical injection at the peak effect of the drug. A minimum of 40 minutes later, dynamic rest PET/CT myocardial perfusion images were obtained immediately after radiopharmaceutical injection under rest conditions. The low-dose noncontrast CT images were used for attenuation correction of the PET images and for localization of any abnormal extracardiac tracer uptake. COMPARISON: NM MPI SPECT (December 2021): large and moderately severe ischemia involving the basal to mid lateral wall and more pronounced anterolaterally. Normal rest perfusion. Enlarged LV cavity with mild global hypokinesis. FINDINGS: There is a cresp-jm-jtcgpgqy size and mild infarct involving the sprza-fn-qas-segments inferoseptally associated with moderate severe theresa-infarct ischemia during pharmacologic stress. Gated post-stress images demonstrate marked left ventricular dilation and mild global hyopkinesis with severe hypo-to akinesis kjrpj-rf-usz-segments inferoseptally and the left ventricular ejection fraction is 34% (likely underestimated) (normal >45%). Additional gated rest images demonstrate same findings and a resting left ventricular ejection fraction of 32% (underestimated). Quantitative analysis of myocardial blood flow (MBF) in ml/g/min and myocardial flow reserve (MFR), calculated using 4DM software: MBF-stress MBF-rest MFR LAD: 1.48 0.87 1.71 LCx: 1.50 0.89 1.68 RCA: 1.33 0.77 1.73 Global: 1.44 0.84 1.72 (Normal values: rest MBF 0.8 - 1.2 mL/g/min; stress(hyperemic) MBF >2.0 mL/g/min; MFR>2.0) Incidental findings on the CT images: sternotomy, s.p. CABG and MV replacement, aortic calcification, splenic artery calcification, diffuse and mild opacities both lungs from base to middle part compatible with diffuse mild pulmonary edema, multilevel spondylosis. IMPRESSION: 1. There is a zlmjb-rn-qdkbvuwa size and mild infarct involving the vnkxi-kd-riq-segments inferoseptally associated with moderate severe theresa-infarct ischemia during pharmacologic stress. 2. Marked left ventricular dilation and mild global hyopkinesis with severe hypo-to akinesis lfswh-fd-hrn-segments inferoseptally. 3. Flow quantification with reduced global hyperemic MBF (1.44 mL/g/min) MFR (1.71) to signify moderate severe coronary microvascular dysfunction. In addition, regional hyperemic MBF is lowest with mean of 0.96 mL/g/min in the pre-described region of ischemia. (Please see table for detailed information) Dictated by: Jack Holder M.D. The radiology attending physician has personally reviewed this study, and had reviewed and/or edited this written report and agrees with it. Electronically signed by: Jose Ortiz M.D. us [place] Jadiel Merino MD IMG PET PROCEDURES Final R esult * IR Inject Abscess Catheter (03/08/2024 11:02 AM HEAVY MOBILE EQUIPMENT REPAIRER) Anatomical Region Laterality Modality Body N/A Radio Fluoroscop y 03/08/2024 12:2 0 PM HEAVY MOBILE EQUIPMENT REPAIRER Impressions 03/08/2024 12:20 PM HEAVY MOBILE EQUIPMENT REPAIRER Improving and nearly resolved superficial collection without new fistula. Catheter was removed. Improving, but still present perinephric collection without new fistula. Catheter was kept in place. PLAN: Continue to monitor remaining catheter output as well as the patient's clinical condition. The catheter should not be flushed. The patient will follow-up with us in 2 weeks. If questions arise, please contact us by calling [phone]. 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 02/21 IR placed 12 Fr cope loop in medial collection and a 12 Fr Cobra in the lateral collection connected to suction bulb drains. Follow up CT 02/22 after drain placement with near complete resolution of subcutaneous collection in anterior abdominal wall (drain 1) with fluid analysis consistent with hematoma. Drain 2 fluid was consistent with a lymphocele, also decreased in size. PROVIDER PRESENCE: Flori Strange PA-C was present from the beginning to the end of the procedure. SEDATION: No sedation required TECHNIQUE: Prior to beginning the procedure, [place] Protocol was used to confirm the patient's identity and planned procedure. Fluoroscopy time has been recorded in the electronic medical record. After obtaining a refresh technician image, the catheter was injected with dilute contrast and multiple fluoroscopic images obtained. The sutures on the catheter were cut and the superficial catheter was removed without difficulty. A sterile dressing was applied to the skin site. ESTIMATED BLOOD LOSS: Minimal. CONDITION: Stable DISCHARGED TO: Recovery and then to home. FINDINGS: Images from the catheter check demonstrate the superficial cavity has nearly completely resolved and was difficult to inject contrast. Images from the catheter check demonstrate the perinephric cavity has decreased in size, but is still present and catheter is patent. The catheters were both draining serosanguinous fluid without much debris. 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 02/21 IR placed 12 Fr cope loop in medial collection and a 12 Fr Cobra in the lateral collection connected to suction bulb drains. Follow up CT 02/22 after drain placement with near complete resolution of subcutaneous collection in anterior abdominal wall (drain 1) with fluid analysis consistent with hematoma. Drain 2 fluid was consistent with a lymphocele, also decreased in size. PROVIDER PRESENCE: Flori Strange PA-C was present from the beginning to the end of the procedure. SEDATION: No sedation required TECHNIQUE: Prior to beginning the procedure, [place] Protocol was used to confirm the patient's identity and planned procedure. Fluoroscopy time has been recorded in the electronic medical record. After obtaining a refresh technician image, the catheter was injected with dilute contrast and multiple fluoroscopic images obtained. The sutures on the catheter were cut and the superficial catheter was removed without difficulty. A sterile dressing was applied to the skin site. ESTIMATED BLOOD LOSS: Minimal. CONDITION: Stable DISCHARGED TO: Recovery and then to home. FINDINGS: Images from the catheter check demonstrate the superficial cavity has nearly completely resolved and was difficult to inject contrast. Images from the catheter check demonstrate the perinephric cavity has decreased in size, but is still present and catheter is patent. The catheters were both draining serosanguinous fluid without much debris. IMPRESSION: Improving and nearly resolved superficial collection without new fistula. Catheter was removed. Improving, but still present perinephric collection without new fistula. Catheter was kept in place. PLAN: Continue to monitor remaining catheter output as well as the patient's clinical condition. The catheter should not be flushed. The patient will follow-up with us in 2 weeks. If questions arise, please contact us by calling [phone]. Electronically signed by: Flori Strange PA-C us [place] Kwok MD IMG IR PROCEDURES Fin al Result * (ABNORMAL) eGFR (03/03/2024 9:40 AM HEAVY MOBILE EQUIPMENT REPAIRER) eGFR 22(L) >=60 mL/min/1. 73 m2 Comment: Interpretive Data Reference Interval Normal >/= 90 mL/min/1.73m2 Mildly decreased* 60 - 89 mL/min/1.73m2 Mildly to moderately decreased 45 - 59 mL/min/1.73m2 Moderately to severely decreased 30 - 44 mL/min/1.73m2 Severely decreased 15 - 29 mL/min/1.73m2 Kidney Failure < 15 mL/min/1.73m2 *Relative to young adult level Estimated glomerular filtration rate is determined by the 2020 CKD-EPI equation recommended by the National Kidney Foundation (A Unifying Approach to GFR Estimation: Recommendations of the NKF-ASK Task Force on Reassessing the Inclusion of Race in Diagnosing Kidney Disease, JASN 2020). The CKD-EPI equation should not be used for patients with unstable renal function and has not been validated in children and those over 70. Current interpretive data was last reviewed 2020. Blood 03/03/2024 9:40 AM HEAVY MOBILE EQUIPMENT REPAIRER 03/03/2024 12:52 PM HEAVY MOBILE EQUIPMENT REPAIRER us Matthew Marti MD LAB BLOOD ORDERABLES Final Result [facility] [place] [address] * (ABNORMAL) Differential, auto (03/03/2024 9:40 AM HEAVY MOBILE EQUIPMENT REPAIRER) Neutrophil abs 6.0 1.5 - 6.5 K/cumm Imm gran abs 0.1 0.0 - 0.1 K/cumm [facility] Lymphocyte abs 0.3(L) 0.8 - 3.3 K/cumm [facility] Monocyte abs 0.4 0.2 - 0.8 K/[facility]umm [facility] Eosinophil abs 0.0 0.0 - 0.5 K/cumm [facility] Basophil abs 0.0 0.0 - 0.1 K/cumm [facility] Neutrophil pct 89.0 % [facility] Comment: Interpretive Data Percent cell count reference ranges are not reported, since discordance with absolute values may lead to misinterpretation of CBC data. Current Interpretive Data was last revised on 2017. Imm gran pct 0.7 % [facility] Comment: Interpretive Data Percent cell count reference ranges are not reported, since discordance with absolute values may lead to misinterpretation of CBC data. Current Interpretive Data was last revised on 2017. Lymphocyte pct 3.7 % [facility] Comment: Interpretive Data Percent cell count reference ranges are not reported, since discordance with absolute values may lead to misinterpretation of CBC data. Current Interpretive Data was last revised on 2017. Monocyte pct 6.2 % [facility] Comment: Interpretive Data Percent cell count reference ranges are not reported, since discordance with absolute values may lead to misinterpretation of CBC data. Current Interpretive Data was last revised on 2017. Eosinophil pct 0.1 % [facility] Comment: Interpretive Data Percent cell count reference ranges are not reported, since discordance with absolute values may lead to misinterpretation of CBC data. Current Interpretive Data was last revised on 2017. Basophil pct 0.3 % [facility] Comment: Interpretive Data Percent cell count reference ranges are not reported, since discordance with absolute values may lead to misinterpretation of CBC data. Current Interpretive Data was last revised on 2017. Blood 03/03/2024 9:40 AM HEAVY MOBILE EQUIPMENT REPAIRER 03/03/2024 12:40 PM HEAVY MOBILE EQUIPMENT REPAIRER Matthew Marti MD LAB BLOOD ORDERABLES Final Result Performing Organization Address [facility] de Phone Number [facility] [place] [address] * Tacrolimus level trough (03/03/2024 9:40 AM HEAVY MOBILE EQUIPMENT REPAIRER) [facility] Tacrolimus trough 7.1 ng/mL Comment: Interpretive Data Testing performed by liquid chromatography-tandem mass spectrometry. Therapeutic concentrations vary depending on type of transplanted organ and time elapsed since transplant. Typical trough concentrations range from 5-15 ng/mL. This test was developed and its performance characteristics determined by the [facility] consistent with CLIA requirements. This test has not been cleared or approved by the [place] Food and Drug administration. Current interpretive data last reviewed 2019. Blood 03/03/2024 9:40 AM HEAVY MOBILE EQUIPMENT REPAIRER 03/03/2024 12:40 PM HEAVY MOBILE EQUIPMENT REPAIRER Matthew Marti MD LAB BLOOD ORDERABLES Final Result Performing Organization Address [facility] Co de Phone Number [facility] [place] [address] * (ABNORMAL) CBC with auto differential (03/03/2024 9:40 AM HEAVY MOBILE EQUIPMENT REPAIRER) [facility] WBC 6.8 3.8 - 9.9 K/cumm Hgb 12.5(L) 13.0 - 17.5 g/dL [facility] Hct 37.1(L) 38.9 - 50.3 % [facility] Plt 166 150 - 400 K/cumm [facility] MPV 10.4 9.1 - 12.3 fL [facility] RBC 3.76(L) 4.30 - 5.80 M/cumm [facility] MCV 98.7(H) 81.3 - 96.4 fL [facility] MCH 33.2 27.1 - 33.3 pg [facility] MCHC 33.7 32.3 - 35.7 g/dL [facility] RDW CV 15.2(H) 11.1 - 14.9 % [facility] RDW SD 55.8(H) 35.7 - 48.1 fL [facility] NRBC abs 0.00 0.00 - 0.01 K/cumm [facility] Blood 03/03/2024 9:40 AM HEAVY MOBILE EQUIPMENT REPAIRER 03/03/2024 12:40 PM HEAVY MOBILE EQUIPMENT REPAIRER Matthew Marti MD LAB BLOOD ORDERABLES Final Result Performing Organization Address City/[facility]/ZIP Co de Phone Number [facility] [place] [address] * Magnesium (03/03/2024 9:40 AM HEAVY MOBILE EQUIPMENT REPAIRER) [facility] Magnesium 1.7 1.4 - 2.5 mg/dL Blood 03/03/2024 9:40 AM HEAVY MOBILE EQUIPMENT REPAIRER 03/03/2024 12:40 PM HEAVY MOBILE EQUIPMENT REPAIRER Matthew Marti MD LAB BLOOD ORDERABLES Final Result Performing Organization Address [facility] de Phone Number [facility] [place] [address] * (ABNORMAL) Renal function panel (03/03/2024 9:40 AM HEAVY MOBILE EQUIPMENT REPAIRER) Pathologist [facility] Sodium 138 135 - 145 mmol/L Potassium, pl 5.3(H) 3.3 - 4.9 mmol/L [facility] Chloride 106 97 - 110 mmol/L [facility] CO2 22 22 - 32 mmol/L [facility] Anion gap 10 2 - 15 mmol/L [facility] BUN 42(H) 6 - 25 mg/dL [facility] Creatinine 3.02(H) 0.80 - 1.30 mg/dL [facility] Glucose 101 70 - 199 mg/dL [facility] Comment: Interpretive Data Fasting glucose >/= 126 mg/dl is diagnostic for diabetes. Fasting is defined as no caloric intake for at least 8 hours. Fasting glucose between 100 mg/dl to 125 mg/dl is diagnostic of prediabetes. In a patient with classic symptoms of hyperglycemia or hyperglycemic crisis, a random glucose >/= 200 mg/dl is diagnostic for diabetes. In the absence of unequivocal hyperglycemia, results should be confirmed by repeat testing. The classification and Diagnosis of Diabetes Diabetes Care 2021; 46: S19-S40. Current interpretive data was last revised 2022. Calcium 9.7 8.5 - 10.3 mg/dL [facility] Phosphorus, pl 2.8 2.3 - 4.5 mg/dL [facility] Albumin 3.8 3.5 - 5.0 g/dL [facility] Blood 03/03/2024 9:40 AM HEAVY MOBILE EQUIPMENT REPAIRER 03/03/2024 12:40 PM HEAVY MOBILE EQUIPMENT REPAIRER us Matthew Marti MD LAB BLOOD ORDERABLES Final Result [facility] [place] [address] * (ABNORMAL) eGFR (03/01/2024 8:00 AM HEAVY MOBILE EQUIPMENT REPAIRER) eGFR 23(L) >=60 mL/min/1. 73 m2 Comment: Interpretive Data Reference Interval Normal >/= 90 mL/min/1.73m2 Mildly decreased* 60 - 89 mL/min/1.73m2 Mildly to moderately decreased 45 - 59 mL/min/1.73m2 Moderately to severely decreased 30 - 44 mL/min/1.73m2 Severely decreased 15 - 29 mL/min/1.73m2 Kidney Failure < 15 mL/min/1.73m2 *Relative to young adult level Estimated glomerular filtration rate is determined by the 2020 CKD-EPI equation recommended by the National Kidney Foundation (A Unifying Approach to GFR Estimation: Recommendations of the NKF-ASK Task Force on Reassessing the Inclusion of Race in Diagnosing Kidney Disease, JASN 2020). The CKD-EPI equation should not be used for patients with unstable renal function and has not been validated in children and those over 70. Current interpretive data was last reviewed 2020. Blood 03/01/2024 8:00 AM HEAVY MOBILE EQUIPMENT REPAIRER 03/01/2024 12:38 PM HEAVY MOBILE EQUIPMENT REPAIRER us Rosalie Velásquez FREEZER UNLOADER LAB BLOOD ORDERABLES Final Result [facility] [place] [address] * (ABNORMAL) Differential, auto (03/01/2024 8:00 AM HEAVY MOBILE EQUIPMENT REPAIRER) Neutrophil abs 3.4 1.5 - 6.5 K/cumm Imm gran abs 0.0 0.0 - 0.1 K/cumm [facility] Lymphocyte abs 0.4(L) 0.8 - 3.3 K/cumm [facility] Monocyte abs 0.3 0.2 - 0.8 K/cumm [facility] Eosinophil abs 0.0 0.0 - 0.5 K/cumm [facility] Basophil abs 0.0 0.0 - 0.1 K/cumm [facility] Neutrophil pct 81.3 % [facility] Comment: Interpretive Data Percent cell count reference ranges are not reported, since discordance with absolute values may lead to misinterpretation of CBC data. Current Interpretive Data was last revised on 2017. Imm gran pct 1.0 % [facility] Comment: Interpretive Data Percent cell count reference ranges are not reported, since discordance with absolute values may lead to misinterpretation of CBC data. Current Interpretive Data was last revised on 2017. Lymphocyte pct 8.7 % [facility] Comment: Interpretive Data Percent cell count reference ranges are not reported, since discordance with absolute values may lead to misinterpretation of CBC data. Current Interpretive Data was last revised on 2017. Monocyte pct 7.0 % [facility] Comment: Interpretive Data Percent cell count reference ranges are not reported, since discordance with absolute values may lead to misinterpretation of CBC data. Current Interpretive Data was last revised on 2017. Eosinophil pct 1.0 % [facility] Comment: Interpretive Data Percent cell count reference ranges are not reported, since discordance with absolute values may lead to misinterpretation of CBC data. Current Interpretive Data was last revised on 2017. Basophil pct 1.0 % [facility] Comment: Interpretive Data Percent cell count reference ranges are not reported, since discordance with absolute values may lead to misinterpretation of CBC data. Current Interpretive Data was last revised on 2017. Blood 03/01/2024 8:00 AM HEAVY MOBILE EQUIPMENT REPAIRER 03/01/2024 12:32 PM HEAVY MOBILE EQUIPMENT REPAIRER Rosalie Velásquez FREEZER UNLOADER LAB BLOOD ORDERABLES Final Result Performing Organization Address [facility] de Phone Number [facility] [place] [address] * Tacrolimus level trough (03/01/2024 8:00 AM HEAVY MOBILE EQUIPMENT REPAIRER) Pathologist [facility] Tacrolimus trough 8.7 ng/mL Comment: Interpretive Data Testing performed by liquid chromatography-tandem mass spectrometry. Therapeutic concentrations vary depending on type of transplanted organ and time elapsed since transplant. Typical trough concentrations range from 5-15 ng/mL. This test was developed and its performance characteristics determined by the [facility] consistent with CLIA requirements. This test has not been cleared or approved by the [place] Food and Drug administration. Current interpretive data last reviewed 2019. Blood 03/01/2024 8:00 AM HEAVY MOBILE EQUIPMENT REPAIRER 03/01/2024 12:32 PM HEAVY MOBILE EQUIPMENT REPAIRER Rosalie Velásquez FREEZER UNLOADER LAB BLOOD ORDERABLES Final Result Performing Organization Address [facility] Co de Phone Number [facility] [place] [address] * (ABNORMAL) CBC with auto differential (03/01/2024 8:00 AM HEAVY MOBILE EQUIPMENT REPAIRER) Pathologist [facility] WBC 4.2 3.8 - 9.9 K/cumm Hgb 12.3(L) 13.0 - 17.5 g/dL [facility] Hct 36.5(L) 38.9 - 50.3 % [facility] Plt 151 150 - 400 K/cumm [facility] MPV 10.2 9.1 - 12.3 fL [facility] RBC 3.66(L) 4.30 - 5.80 M/cumm [facility] MCV 99.7(H) 81.3 - 96.4 fL [facility] MCH 33.6(H) 27.1 - 33.3 pg [facility] MCHC 33.7 32.3 - 35.7 g/dL [facility] RDW CV 15.7(H) 11.1 - 14.9 % [facility] RDW SD 58.0(H) 35.7 - 48.1 fL [facility] NRBC abs 0.00 0.00 - 0.01 K/cumm [facility] Blood 03/01/2024 8:00 AM HEAVY MOBILE EQUIPMENT REPAIRER 03/01/2024 12:32 PM HEAVY MOBILE EQUIPMENT REPAIRER Rosalie Velásquez FREEZER UNLOADER LAB BLOOD ORDERABLES Final Result [facility] [place] [address] * Magnesium (03/01/2024 8:00 AM HEAVY MOBILE EQUIPMENT REPAIRER) [facility] Magnesium 1.9 1.4 - 2.5 mg/dL Blood 03/01/2024 8:00 AM HEAVY MOBILE EQUIPMENT REPAIRER 03/01/2024 12:31 PM HEAVY MOBILE EQUIPMENT REPAIRER Rosalie Velásquez FREEZER UNLOADER LAB BLOOD ORDERABLES Final Result [facility] [place] [address] * (ABNORMAL) Renal function panel (03/01/2024 8:00 AM HEAVY MOBILE EQUIPMENT REPAIRER) Pathologist [facility] Sodium 140 135 - 145 mmol/L Potassium, pl 5.4(H) 3.3 - 4.9 mmol/L [facility] Chloride 106 97 - 110 mmol/L [facility] CO2 22 22 - 32 mmol/L [facility] Anion gap 12 2 - 15 mmol/L [facility] BUN 39(H) 6 - 25 mg/dL [facility] Creatinine 2.94(H) 0.80 - 1.30 mg/dL [facility] Glucose 92 70 - 199 mg/dL [facility] Comment: Interpretive Data Fasting glucose >/= 126 mg/dl is diagnostic for diabetes. Fasting is defined as no caloric intake for at least 8 hours. Fasting glucose between 100 mg/dl to 125 mg/dl is diagnostic of prediabetes. In a patient with classic symptoms of hyperglycemia or hyperglycemic crisis, a random glucose >/= 200 mg/dl is diagnostic for diabetes. In the absence of unequivocal hyperglycemia, results should be confirmed by repeat testing. The classification and Diagnosis of Diabetes Diabetes Care 202; 46: S19-S40. Current interpretive data was last revised 2022. Calcium 10.2 8.5 - 10.3 mg/dL [facility] Phosphorus, pl 2.8 2.3 - 4.5 mg/dL [facility] Albumin 3.8 3.5 - 5.0 g/dL [facility] Blood 03/01/2024 8:00 AM HEAVY MOBILE EQUIPMENT REPAIRER 03/01/2024 12:31 PM HEAVY MOBILE EQUIPMENT REPAIRER us Rosalie Velásquez NP LAB BLOOD ORDERABLES Final Result [facility] [place] [address] * BK virus, DNA, quantitative Blood (02/26/2024 8:59 AM HEAVY MOBILE EQUIPMENT REPAIRER) [facility] BK Virus DNA, PCR Negative Negative IU/mL [facility] - Comment: No BK DNA detected. The linear range of the assay is 22 - 100,000,000 IU/mL. Blood 02/26/2024 8:59 AM HEAVY MOBILE EQUIPMENT REPAIRER 02/26/2024 Narrative [facility] - 02/29/2024 2:08 PM HEAVY MOBILE EQUIPMENT REPAIRER Performed at: [address] [place] [id number] Artificial Teeth Inspector: Agustina Tyler MD, Phone: [phone] Jack Morrison MD LAB MICROBIOLOGY - GENERAL O RDERABLES Final Result Performing Organization Address [facility] de Phone Number [facility] - * Tacrolimus level trough (02/26/2024 8:59 AM HEAVY MOBILE EQUIPMENT REPAIRER) Pathologist [facility] Tacrolimus ([id number]), Blood 8.4 2.0 - 20.0 ng/mL [facility] - 01 Comment: Trough (immediately following transplant) 15.0 Trough (steady state, 2 weeks or more after transplant): 3.0 - 8.0 Performed by LC-MS/MS technology. Blood 02/26/2024 8:59 AM HEAVY MOBILE EQUIPMENT REPAIRER 02/26/2024 Narrative [facility] - 02/29/2024 2:08 PM HEAVY MOBILE EQUIPMENT REPAIRER Test(s) [id number] ([id number]), Blood was developed and its performance characteristics determined by [facility]. It has not been cleared or approved by the Food and Drug Administration. Performed at: - [address] [id number] Artificial Teeth Inspector: Agustina Tyler MD, Phone: [phone] us Jack Morrison MD LAB BLOOD ORDERABLES Final R esult Performing Organization Address [facility] de Phone Number [facility] - * (ABNORMAL) CBC with auto differential (02/26/2024 8:59 AM HEAVY MOBILE EQUIPMENT REPAIRER) Pathologist [facility] WBC 3.6 3.4 - 10.8 x10E3/uL [facility] - 01 RBC 3.78(L) 4.14 - 5.80 x10E6/uL [facility] - 01 Hgb 12.6(L) 13.0 - 17.7 g/dL [facility] - 01 Hct 39.4 37.5 - 51.0 % [facility] - 01 MCV 104(H) 79 - 97 fL [facility] - 01 MCH 33.3(H) 26.6 - 33.0 pg [facility] - 01 MCHC 32.0 31.5 - 35.7 g/dL [facility] - 01 Rdw 15.4 11.6 - 15.4 % [facility] - 01 Platelets 140(L) 150 - 450 x10E3/uL [facility] - 01 Neutrophils pct 83 Not Estab. % [facility] - 01 Lymphs pct 8 Not Estab. % [facility] - 01 Monocytes pct 6 Not Estab. % [facility] - 01 Eosinophils pct 1 Not Estab. % [facility] - 01 Basophil pct 1 Not Estab. % [facility] - 01 Neutrophil abs 3.0 1.4 - 7.0 x10E3/uL [facility] - 01 Lymphs (Absolute) 0.3(L) 0.7 - 3.1 x10E3/uL [facility] - 01 Monocyte abs 0.2 0.1 - 0.9 x10E3/uL [facility] - 01 Eosinophils, abs 0.0 0.0 - 0.4 x10E3/uL [facility] - 01 Basophils, abs 0.0 0.0 - 0.2 x10E3/uL [facility] - 01 Immature Granulocytes 1 Not Estab. % [facility] - 01 Immature Grans (Abs) 0.0 0.0 - 0.1 x10E3/uL [facility] - 01 Blood 02/26/2024 8:59 AM HEAVY MOBILE EQUIPMENT REPAIRER 02/26/2024 Narrative [facility] - 02/27/2024 7:07 AM HEAVY MOBILE EQUIPMENT REPAIRER Performed at: [address] [place] [id number] Artificial Teeth Inspector: Prabhjot Trammell PhD, Phone: [phone] us Jack Morrison MD LAB BLOOD ORDERABLES Final R esult [facility] - 01 * (ABNORMAL) Hepatic function panel (02/26/2024 8:59 AM HEAVY MOBILE EQUIPMENT REPAIRER) Protein, sr 6.1 6.0 - 8.5 g/dL [facility] - 01 Bilirubin, Total 0.4 0.0 - 1.2 mg/dL [facility] - 01 Bilirubin, direct 0.17 0.00 - 0.40 mg/dL [facility] - 01 Alk phos 147(H) 44 - 121 IU/L [facility] - 01 AST 14 0 - 40 IU/L [facility] - 01 ALT 10 0 - 44 IU/L [facility] - 01 Blood 02/26/2024 8:59 AM HEAVY MOBILE EQUIPMENT REPAIRER 02/26/2024 Narrative [facility] - 02/27/2024 7:07 AM HEAVY MOBILE EQUIPMENT REPAIRER Performed at: [address] [id number] Artificial Teeth Inspector: Prabhjot Trammell PhD, Phone: [phone] Jack Morrison MD LAB BLOOD ORDERABLES Final R esult [facility] - 01 * (ABNORMAL) Renal function panel (02/26/2024 8:59 AM HEAVY MOBILE EQUIPMENT REPAIRER) [facility] Glucose 99 70 - 99 mg/dL [facility] - 01 BUN 39(H) 8 - 27 mg/dL [facility] - 01 Creatinine, Serum 2.98(H) 0.76 - 1.27 mg/dL [facility] - 01 eGFR 23(L) >59 mL/min/1.7 3 [facility] - 01 BUN/creat ratio 13 10 - 24 [facility] - 01 Sodium 143 134 - 144 mmol/L [facility] - 01 Potassium, sr 5.7(H) 3.5 - 5.2 mmol/L [facility] - 01 Chloride 107(H) 96 - 106 mmol/L [facility] - 01 CO2 21 20 - 29 mmol/L [facility] - 01 Calcium 10.4(H) 8.6 - 10.2 mg/dL [facility] - 01 Phosphorus, sr 3.6 2.8 - 4.1 mg/dL [facility] - 01 Albumin 4.2 3.9 - 4.9 g/dL [facility] - 01 Blood 02/26/2024 8:59 AM HEAVY MOBILE EQUIPMENT REPAIRER 02/26/2024 Narrative [facility] - 02/27/2024 7:07 AM HEAVY MOBILE EQUIPMENT REPAIRER Performed at: [address] [id number] Artificial Teeth Inspector: Prabhjot Trammell PhD, Phone: [phone] us Jack Morrison MD LAB BLOOD ORDERABLES Final R esult [facility] - 01 * Lipid panel (02/26/2024 8:59 AM HEAVY MOBILE EQUIPMENT REPAIRER) Cholesterol 121 100 - 199 mg/dL [facility] - 01 Triglycerides 104 0 - 149 mg/dL [facility] - 01 HDL Cholesterol 52 >39 mg/dL [facility] - 01 VLDL 19 5 - 40 mg/dL [facility] - 01 LDL, calculated 50 0 - 99 mg/dL [facility] - 01 Blood 02/26/2024 8:59 AM HEAVY MOBILE EQUIPMENT REPAIRER 02/26/2024 Narrative [facility] - 02/27/2024 7:07 AM HEAVY MOBILE EQUIPMENT REPAIRER Performed at: - [address] [id number] Artificial Teeth Inspector: Prabhjot Trammell PhD, Phone: [phone] us Jack Morrison MD LAB BLOOD ORDERABLES Final R esult [facility] - * POCT glucose (02/23/2024 11:43 AM HEAVY MOBILE EQUIPMENT REPAIRER) Glucose, POC 105 70 - 199 mg/dL Blood 02/23/2024 11:4 3 AM HEAVY MOBILE EQUIPMENT REPAIRER 02/23/2024 11:43 AM HEAVY MOBILE EQUIPMENT REPAIRER us Renetta Jones MD PhD LAB POCT ORDERABLES - DEVICE Fi nal Result [facility] Department [place] [address] * POCT glucose (02/23/2024 8:21 AM HEAVY MOBILE EQUIPMENT REPAIRER) Glucose, POC 106 70 - 199 mg/dL Blood 02/23/2024 8:21 AM HEAVY MOBILE EQUIPMENT REPAIRER 02/23/2024 8:21 AM HEAVY MOBILE EQUIPMENT REPAIRER us Renetta Jones MD PhD LAB POCT ORDERABLES - DEVICE Fi nal Result Performing Organization Address [facility] Co de Phone Number [facility] [place] [address] * (ABNORMAL) Potassium, whole blood (02/23/2024 6:38 AM HEAVY MOBILE EQUIPMENT REPAIRER) Pathologist [facility] Potassium, bld 5.3(H) 3.3 - 4.9 mmol/L Blood 02/23/2024 6:38 AM HEAVY MOBILE EQUIPMENT REPAIRER 02/23/2024 6:55 AM HEAVY MOBILE EQUIPMENT REPAIRER us Renetta Jones MD PhD LAB BLOOD ORDERABLES Final Resu lt Performing Organization Address [facility] de Phone Number [facility] [place] [address] * ECG 12 lead (02/23/2024 6:30 AM HEAVY MOBILE EQUIPMENT REPAIRER) Pathologist [facility] Ventricular Rate EKG/Min 57 BPM [facility] Atrial Rate 57 BPM [facility] KS-Interval (MSEC) 246 ms [facility] QRS-Interval (MSEC) 142 ms [facility] QT-Interval (MSEC) 464 ms [facility] QTc 451 ms [facility] P [place] 65 degrees [facility] R [place] -9 degrees [facility] T [place] 20 degrees [facility] Diagnosis Sinus bradycardia with 1st degree A-V block Non-specific intra-ventricul ar conduction block Minimal voltage criteria for LVH, may be normal variant ( [place] product ) Abnormal ECG When compared with ECG of 27-JAN-2024 15:35, Sinus rhythm has replaced Atrial fibrillation QT has shortened Confirmed by JENNIFER BYRD M.D ([id number]) on 02/23/2024 1:27:04 PM [facility] 02/23/2024 6:30 AM HEAVY MOBILE EQUIPMENT REPAIRER 02/23/2024 1:27 PM HEAVY MOBILE EQUIPMENT REPAIRER us Renetta Jones MD PhD ECG ORDERABLES Final Result Performing Organization Address [facility]/ZIP Co de Phone Number [facility] * CT Abdomen Pelvis WO Contrast (02/23/2024 5:21 AM HEAVY MOBILE EQUIPMENT REPAIRER) Anatomical Region Laterality Modality Body N/A Computed Tomogra phy 02/23/2024 7:47 AM HEAVY MOBILE EQUIPMENT REPAIRER Impressions 02/23/2024 7:47 AM HEAVY MOBILE EQUIPMENT REPAIRER 1. Interval placement of pigtail catheter within the right abdominal wall subcutaneous collection that has almost completely resolved. 2. Interval placement of pigtail catheter within perinephric collection which has significantly decreased. There is also interval decrease of additional perinephric collections in the right lower quadrant of the pelvis, with imaging features suggestive of hematomas or at least partially hemorrhagic component. 3. Groundglass opacities in lung bases may represent mild pulmonary edema Electronically signed by: Blake Bauer M.D. Narrative 02/23/2024 7:47 AM HEAVY MOBILE EQUIPMENT REPAIRER EXAMINATION: Computed tomography of the abdomen and pelvis without intravenous contrast HISTORY: Follow-up abdominal collections after drain placement TECHNIQUE: Transaxial computed tomographic images of the abdomen and pelvis were obtained without intravenous contrast according to the standard protocol. COMPARISON: CT performed on 02/17/2024 FINDINGS: Images through the lower chest demonstrate bibasilar atelectasis with groundglass opacities in the lung bases that may represent mild pulmonary edema. Dense mitral annular calcifications. Coronary artery calcifications. Sternotomy wires. Liver spleen, adrenal glands, and pancreas are unremarkable on this noncontrast study. Marked atrophy of the torres martinez kidneys. No hyperdense gallstones or biliary dilation. Colonic diverticulosis. Abdominal aorta is of normal caliber. The right lower quadrant renal transplant with the transplant ureteral stent in place. Bladder is unremarkable. Interval placement of right lower quadrant pigtail catheter and a perinephric collection that has decreased in size now measuring 9.5 x 4.2 cm in largest axial dimensions, previously 12.5 x 8.6 cm when measured in a similar fashion. Additional perinephric collections one of which contains some hyperdense material suggesting hematoma have also decreased in size, with a collection medial to the renal transplant now measuring 9.5 x 5 cm, previously 13.6 x 7.9 cm, and collection anterior to the bladder now measuring 5.6 x 4.5 cm, previously 7.9 x 5.9 cm. Interval placement of additional pigtail catheter along the anterior abdominal wall collection which has almost completely resolved. Minimal residual fluid containing tract, 2/135. Expected gas near the drains in keeping with postprocedure status. No suspicious bone lesions. Procedure Note Blake Bauer MD - 02/23/2024 EXAMINATION: Computed tomography of the abdomen and pelvis without intravenous contrast HISTORY: Follow-up abdominal collections after drain placement TECHNIQUE: Transaxial computed tomographic images of the abdomen and pelvis were obtained without intravenous contrast according to the standard protocol. COMPARISON: CT performed on 02/17/2024 FINDINGS: Images through the lower chest demonstrate bibasilar atelectasis with groundglass opacities in the lung bases that may represent mild pulmonary edema. Dense mitral annular calcifications. Coronary artery calcifications. Sternotomy wires. Liver spleen, adrenal glands, and pancreas are unremarkable on this noncontrast study. Marked atrophy of the torres martinez kidneys. No hyperdense gallstones or biliary dilation. Colonic diverticulosis. Abdominal aorta is of normal caliber. The right lower quadrant renal transplant with the transplant ureteral stent in place. Bladder is unremarkable. Interval placement of right lower quadrant pigtail catheter and a perinephric collection that has decreased in size now measuring 9.5 x 4.2 cm in largest axial dimensions, previously 12.5 x 8.6 cm when measured in a similar fashion. Additional perinephric collections one of which contains some hyperdense material suggesting hematoma have also decreased in size, with a collection medial to the renal transplant now measuring 9.5 x 5 cm, previously 13.6 x 7.9 cm, and collection anterior to the bladder now measuring 5.6 x 4.5 cm, previously 7.9 x 5.9 cm. Interval placement of additional pigtail catheter along the anterior abdominal wall collection which has almost completely resolved. Minimal residual fluid containing tract, 2/135. Expected gas near the drains in keeping with postprocedure status. No suspicious bone lesions. IMPRESSION: 1. Interval placement of pigtail catheter within the right abdominal wall subcutaneous collection that has almost completely resolved. 2. Interval placement of pigtail catheter within perinephric collection which has significantly decreased. There is also interval decrease of additional perinephric collections in the right lower quadrant of the pelvis, with imaging features suggestive of hematomas or at least partially hemorrhagic component. 3. Groundglass opacities in lung bases may represent mild pulmonary edema Electronically signed by: Blake Bauer M.D. us Susi LEE IMG CT PROCEDURES Fin al Result * (ABNORMAL) eGFR (02/23/2024 4:37 AM HEAVY MOBILE EQUIPMENT REPAIRER) Pathologist [facility] eGFR 20(L) >=60 mL/min/1. 73 m2 Comment: Interpretive Data Reference Interval Normal >/= 90 mL/min/1.73m2 Mildly decreased* 60 - 89 mL/min/1.73m2 Mildly to moderately decreased 45 - 59 mL/min/1.73m2 Moderately to severely decreased 30 - 44 mL/min/1.73m2 Severely decreased 15 - 29 mL/min/1.73m2 Kidney Failure < 15 mL/min/1.73m2 *Relative to young adult level Estimated glomerular filtration rate is determined by the 2020 CKD-EPI equation recommended by the National Kid[employer] (A Unifying Approach to GFR Estimation: Recommendations of the NKF-ASK Task Force on Reassessing the Inclusion of Race in Diagnosing Kidney Disease, JASN 2020). The CKD-EPI equation should not be used for patients with unstable renal function and has not been validated in children and those over 70. Current interpretive data was last reviewed 2020. Blood 02/23/2024 4:37 AM HEAVY MOBILE EQUIPMENT REPAIRER 02/23/2024 4:59 AM HEAVY MOBILE EQUIPMENT REPAIRER Rhoda LEE LAB BLOOD ORDERABLES Final Result [facility] [place] [address] * (ABNORMAL) Differential, auto (02/23/2024 4:37 AM HEAVY MOBILE EQUIPMENT REPAIRER) Pathologist [facility] Neutrophil abs 2.5 1.5 - 6.5 K/cumm Imm gran abs 0.0 0.0 - 0.1 K/cumm [facility] Lymphocyte abs 0.2(L) 0.8 - 3.3 K/cumm [facility] Monocyte abs 0.2 0.2 - 0.8 K/cumm [facility] Eosinophil abs 0.0 0.0 - 0.5 K/cumm [facility] Basophil abs 0.0 0.0 - 0.1 K/cumm [facility] Neutrophil pct 85.3 % [facility] Comment: Interpretive Data Percent cell count reference ranges are not reported, since discordance with absolute values may lead to misinterpretation of CBC data. Current Interpretive Data was last revised on 2017. Imm gran pct 0.7 % [facility] Comment: Interpretive Data Percent cell count reference ranges are not reported, since discordance with absolute values may lead to misinterpretation of CBC data. Current Interpretive Data was last revised on 2017. Lymphocyte pct 6.5 % [facility] Comment: Interpretive Data Percent cell count reference ranges are not reported, since discordance with absolute values may lead to misinterpretation of CBC data. Current Interpretive Data was last revised on 2017. Monocyte pct 6.1 % [facility] Comment: Interpretive Data Percent cell count reference ranges are not reported, since discordance with absolute values may lead to misinterpretation of CBC data. Current Interpretive Data was last revised on 2017. Eosinophil pct 0.7 % [facility] Comment: Interpretive Data Percent cell count reference ranges are not reported, since discordance with absolute values may lead to misinterpretation of CBC data. Current Interpretive Data was last revised on 2017. Basophil pct 0.7 % [facility] Comment: Interpretive Data Percent cell count reference ranges are not reported, since discordance with absolute values may lead to misinterpretation of CBC data. Current Interpretive Data was last revised on 2017. Blood 02/23/2024 4:37 AM HEAVY MOBILE EQUIPMENT REPAIRER 02/23/2024 4:59 AM HEAVY MOBILE EQUIPMENT REPAIRER us Rhoda LEE LAB BLOOD ORDERABLES Final Result LINDA ELIO [facility] [place] [address] * Tacrolimus level trough (02/23/2024 4:37 AM HEAVY MOBILE EQUIPMENT REPAIRER) Tacrolimus trough 9.1 ng/mL Comment: Interpretive Data Testing performed by liquid chromatography-tandem mass spectrometry. Therapeutic concentrations vary depending on type of transplanted organ and time elapsed since transplant. Typical trough concentrations range from 5-15 ng/mL. This test was developed and its performance characteristics determined by the [facility] consistent with CLIA requirements. This test has not been cleared or approved by the [place] Food and Drug administration. Current interpretive data last reviewed 2019. Blood 02/23/2024 4:37 AM HEAVY MOBILE EQUIPMENT REPAIRER 02/23/2024 4:59 AM HEAVY MOBILE EQUIPMENT REPAIRER Rhoda LEE LAB BLOOD ORDERABLES Final Result [facility] [place] [address] * (ABNORMAL) CBC with auto differential (02/23/2024 4:37 AM HEAVY MOBILE EQUIPMENT REPAIRER) WBC 2.9(L) 3.8 - 9.9 K/cumm Hgb 10.4(L) 13.0 - 17.5 g/dL [facility] Hct 31.2(L) 38.9 - 50.3 % [facility] Plt 106(L) 150 - 400 K/cumm [facility] MPV 9.8 9.1 - 12.3 fL [facility] RBC 3.09(L) 4.30 - 5.80 M/cumm [facility] MCV 101.0(H) 81.3 - 96.4 fL [facility] MCH 33.7(H) 27.1 - 33.3 pg [facility] MCHC 33.3 32.3 - 35.7 g/dL [facility] RDW CV 16.7(H) 11.1 - 14.9 % [facility] RDW SD 61.7(H) 35.7 - 48.1 fL [facility] NRBC abs 0.00 0.00 - 0.01 K/cumm [facility] Blood 02/23/2024 4:37 AM HEAVY MOBILE EQUIPMENT REPAIRER 02/23/2024 4:59 AM HEAVY MOBILE EQUIPMENT REPAIRER Rhoda LEE LAB BLOOD ORDERABLES Final Result Performing Organization Address City/[facility]/ZIP Co de Phone Number [facility] One [facility] [place] [address] * Magnesium (02/23/2024 4:37 AM HEAVY MOBILE EQUIPMENT REPAIRER) [facility] Magnesium 2.0 1.4 - 2.5 mg/dL Blood 02/23/2024 4:37 AM HEAVY MOBILE EQUIPMENT REPAIRER 02/23/2024 4:59 AM HEAVY MOBILE EQUIPMENT REPAIRER Rhoda Chantell Mark LEE LAB BLOOD ORDERABLES Final Result Performing Organization Address [facility] Co de Phone Number [facility] [place] [address] * (ABNORMAL) Renal function panel (02/23/2024 4:37 AM HEAVY MOBILE EQUIPMENT REPAIRER) [facility] Sodium 141 135 - 145 mmol/L Potassium, pl 5.6(H) 3.3 - 4.9 mmol/L [facility] Chloride 108 97 - 110 mmol/L [facility] CO2 27 22 - 32 mmol/L [facility] Anion gap 6 2 - 15 mmol/L [facility] BUN 38(H) 6 - 25 mg/dL [facility] Creatinine 3.27(H) 0.80 - 1.30 mg/dL [facility] Glucose 86 70 - 199 mg/dL [facility] Comment: Interpretive Data Fasting glucose >/= 126 mg/dl is diagnostic for diabetes. Fasting is defined as no caloric intake for at least 8 hours. Fasting glucose between 100 mg/dl to 125 mg/dl is diagnostic of prediabetes. In a patient with classic symptoms of hyperglycemia or hyperglycemic crisis, a random glucose >/= 200 mg/dl is diagnostic for diabetes. In the absence of unequivocal hyperglycemia, results should be confirmed by repeat testing. The classification and Diagnosis of Diabetes Diabetes Care 2021; 46: S19-S40. Current interpretive data was last revised 2022. Calcium 9.6 8.5 - 10.3 mg/dL [facility] Phosphorus, pl 4.2 2.3 - 4.5 mg/dL [facility] Albumin 3.7 3.5 - 5.0 g/dL [facility] Blood 02/23/2024 4:37 AM HEAVY MOBILE EQUIPMENT REPAIRER 02/23/2024 4:59 AM HEAVY MOBILE EQUIPMENT REPAIRER Rhoda Flores PA LAB BLOOD ORDERABLES Final Result Performing Organization Address [facility] de Phone Number [facility] [place] [address] * POCT glucose (02/22/2024 9:35 PM HEAVY MOBILE EQUIPMENT REPAIRER) Glucose, POC 136 70 - 199 mg/dL Blood 02/22/2024 9:35 PM HEAVY MOBILE EQUIPMENT REPAIRER 02/22/2024 9:35 PM HEAVY MOBILE EQUIPMENT REPAIRER Renetta Jones MD PhD LAB POCT ORDERABLES - DEVICE Fi nal Result Performing Organization Address [facility] de Phone Number [facility] [place] [address] * POCT glucose (02/22/2024 5:37 PM HEAVY MOBILE EQUIPMENT REPAIRER) Glucose, POC 134 70 - 199 mg/dL Blood 02/22/2024 5:37 PM HEAVY MOBILE EQUIPMENT REPAIRER 02/22/2024 5:37 PM HEAVY MOBILE EQUIPMENT REPAIRER Renetta Jones MD PhD LAB POCT ORDERABLES - DEVICE Fi nal Result Performing Organization Address [facility] de Phone Number [facility] [place] [address] * Cell Differential, Body Fluid (02/22/2024 2:26 PM HEAVY MOBILE EQUIPMENT REPAIRER) [facility] Total cells diffed 100 cells Comment: Interpretive Data Unless otherwise specified, the reference range and other method performance specifications have not been established for CSF/Body Fluid tests. The test results should be integrated into the clinical context for interpretation. Current interpretive data was last revised on 2018. Neutrophils, fld 50 % [facility] Lymphs, fld 26 % [facility] Monocyte, fld 23 % [facility] Macrophages, fld 1 % [facility] Specimen type, fld Peritoneal [facility] Fluid 02/22/2024 2:26 PM HEAVY MOBILE EQUIPMENT REPAIRER 02/22/2024 2:38 PM HEAVY MOBILE EQUIPMENT REPAIRER Harrison Taylor MD LAB BODY FLUIDS AND STOOLS OR DERABLES Final Result Performing Organization Address [facility] de Phone Number [facility] [place] [address] * Cell Differential, Body Fluid (02/22/2024 2:26 PM HEAVY MOBILE EQUIPMENT REPAIRER) Pathologist [facility] Total cells diffed 100 cells Comment: Interpretive Data Unless otherwise specified, the reference range and other method performance specifications have not been established for CSF/Body Fluid tests. The test results should be integrated into the clinical context for interpretation. Current interpretive data was last revised on 2018. Neutrophils, fld 4 % [facility] Lymphs, fld 79 % [facility] Monocyte, fld 17 % [facility] Specimen type, fld Peritoneal [facility] Fluid 02/22/2024 2:26 PM HEAVY MOBILE EQUIPMENT REPAIRER 02/22/2024 2:38 PM HEAVY MOBILE EQUIPMENT REPAIRER Harrison Taylor MD LAB BODY FLUIDS AND STOOLS OR DERABLES Final Result Performing Organization Address [facility] de Phone Number [facility] [place] [address] * (ABNORMAL) Cell count w/rflx diff, body fluid (02/22/2024 2:26 PM HEAVY MOBILE EQUIPMENT REPAIRER) Specimen type, fld Peritoneal Color, fld [place] [facility] Clarity, fld Cloudy(A) Clear [facility] Nucleated cells, fld 83 /cumm [facility] Comment: Interpretive Data Unless otherwise specified, the reference range and other method performance specifications have not been established for CSF/Body Fluid tests. The test results should be integrated into the clinical context for interpretation. Current interpretive data was last revised on 2018. RBC, fld 21,315 /cumm [facility] Fluid 02/22/2024 2:26 PM HEAVY MOBILE EQUIPMENT REPAIRER 02/22/2024 2:38 PM HEAVY MOBILE EQUIPMENT REPAIRER Narrative [facility] - 02/22/2024 4:31 PM HEAVY MOBILE EQUIPMENT REPAIRER RLQ drain #2 Harrison Taylor MD LAB BODY FLUIDS AND STOOLS OR DERABLES Final Result Performing Organization Address [facility] Co de Phone Number [facility] [place] [address] * (ABNORMAL) Cell count w/rflx diff, body fluid (02/22/2024 2:26 PM HEAVY MOBILE EQUIPMENT REPAIRER) Specimen type, fld Peritoneal Color, fld Red [facility] Clarity, fld Turbid(A) Clear [facility] Nucleated cells, fld 350 /cumm [facility] Comment: Interpretive Data Unless otherwise specified, the reference range and other method performance specifications have not been established for CSF/Body Fluid tests. The test results should be integrated into the clinical context for interpretation. Current interpretive data was last revised on 2018. RBC, fld 606,638 /cumm [facility] Fluid 02/22/2024 2:26 PM HEAVY MOBILE EQUIPMENT REPAIRER 02/22/2024 2:38 PM HEAVY MOBILE EQUIPMENT REPAIRER Narrative [facility] - 02/22/2024 4:31 PM HEAVY MOBILE EQUIPMENT REPAIRER RLQ us Harrison Taylor MD LAB BODY FLUIDS AND STOOLS OR DERABLES Final Result Performing Organization Address [facility] Co de Phone Number [facility] [place] [place] [address] * Aerobic and anaerobic culture and gram stain Peritoneal fluid Abdominal, right lower quadrant (02/22/2024 2:26 PM HEAVY MOBILE EQUIPMENT REPAIRER) Direct Specimen Exam Stain: Cytospin Gram stain shows: Rare polymorphonuclear leukocytes seen. No organisms seen. Report Final Report: No growth [facility] Peritoneal fluid (Abdominal, right lower quadrant) 02/22/2024 2:26 PM HEAVY MOBILE EQUIPMENT REPAIRER 02/22/2024 3:42 PM HEAVY MOBILE EQUIPMENT REPAIRER Narrative [facility] - 02/25/2024 10:47 AM HEAVY MOBILE EQUIPMENT REPAIRER RLQ Drain #2 Testing performed by [facility] ([phone]) Specimens submitted from normally sterile body sites will have all bacterial morphotypes identified. Specimens that contain grossly mixed corey and/or are from body sites that are not normally sterile will be examined for Staphylococcus aureus, Pseudomonas aeruginosa, beta-hemolytic strep, vancomycin-resistant Enterococcus, Bacteroides, Parabacteroides, Clostridium perfringens and fungus. If any of these are isolated, the organism will be reported. Current interpretive data was last revised on 2019. Harrison Taylor MD LAB MICROBIOLOGY - GENERAL OR DERABLES Final Result [facility] [place] [address] * Aerobic and anaerobic culture and gram stain Abscess Abdominal, right lower quadrant (02/22/2024 2:26 PM HEAVY MOBILE EQUIPMENT REPAIRER) Direct Specimen Exam Stain: Rare polymorphonuclear leukocytes seen. No organisms seen. Report Final Report: No growth [facility] Abscess (Abdominal, right lower quadrant) 02/22/2024 2:26 PM HEAVY MOBILE EQUIPMENT REPAIRER 02/22/2024 3:41 PM HEAVY MOBILE EQUIPMENT REPAIRER Narrative [facility] - 02/25/2024 10:48 AM HEAVY MOBILE EQUIPMENT REPAIRER Testing performed by [facility] ([phone]) Specimens submitted from normally sterile body sites will have all bacterial morphotypes identified. Specimens that contain grossly mixed corey and/or are from body sites that are not normally sterile will be examined for Staphylococcus aureus, Pseudomonas aeruginosa, beta-hemolytic strep, vancomycin-resistant Enterococcus, Bacteroides, Parabacteroides, Clostridium perfringens and fungus. If any of these are isolated, the organism will be reported. Current interpretive data was last revised on 2019. Harrison Taylor MD LAB MICROBIOLOGY - GENERAL OR DERABLES Final Result Performing Organization Address [facility] de Phone Number [facility] [place] [address] * Creatinine, body fluid (02/22/2024 2:26 PM HEAVY MOBILE EQUIPMENT REPAIRER) Specimen type, fld Peritoneal Creatinine, fld 3.60 mg/dL [facility] Comment: The above specimen type is not cleared for use in this method by the FDA. Analytical characteristics have been validated by the performing laboratory. No reference range established - see interpretive comments. Interpretive Data Pleural or Peritoneal - Fluid to serum creatinine ratio > 1.0 is indicative of urine leakage into the source. References: Tesfaye Textbook of Clinical Chemistry and Molecular Diagnostics, Sixth Edition. Elsevier Press. 2018. Chapter 43, Body Fluids, p. 925 [employer] Test directory, Body Fluid Reference Intervals and/or Interpretative Information. [email or web address] Current Interpretive Data was last revised 2018. Fluid 02/22/2024 2:26 PM HEAVY MOBILE EQUIPMENT REPAIRER 02/22/2024 2:38 PM HEAVY MOBILE EQUIPMENT REPAIRER Narrative [facility] - 02/22/2024 3:21 PM HEAVY MOBILE EQUIPMENT REPAIRER RLQ Harrison Taylor MD LAB BODY FLUIDS AND STOOLS OR DERABLES Final Result Performing Organization Address [facility] de Phone Number [facility] [place] [address] * Creatinine, body fluid (02/22/2024 2:19 PM HEAVY MOBILE EQUIPMENT REPAIRER) Specimen type, fld Peritoneal Creatinine, fld 3.43 mg/dL [facility] Comment: The above specimen type is not cleared for use in this method by the FDA. Analytical characteristics have been validated by the performing laboratory. No reference range established - see interpretive comments. Interpretive Data Pleural or Peritoneal - Fluid to serum creatinine ratio > 1.0 is indicative of urine leakage into the source. References: Tesfaye Textbook of Clinical Chemistry and Molecular Diagnostics, Sixth Edition. Elsevier Press. 2018. Chapter 43, Body Fluids, p. 925 [facility] Test directory, Body Fluid Reference Intervals and/or Interpretative Information. [email or web address] Current Interpretive Data was last revised 2018. Fluid 02/22/2024 2:19 PM HEAVY MOBILE EQUIPMENT REPAIRER 02/22/2024 2:38 PM HEAVY MOBILE EQUIPMENT REPAIRER Narrative [facility] - 02/22/2024 8:43 PM HEAVY MOBILE EQUIPMENT REPAIRER RLQ Drain #2 us Harrison Taylor MD LAB BODY FLUIDS AND STOOLS OR DERABLES Final Result Performing Organization Address [facility] Co de Phone Number [facility] [place] [address] * POCT glucose (02/22/2024 1:48 PM HEAVY MOBILE EQUIPMENT REPAIRER) Glucose, POC 81 70 - 199 mg/dL Blood 02/22/2024 1:48 PM HEAVY MOBILE EQUIPMENT REPAIRER 02/22/2024 1:48 PM HEAVY MOBILE EQUIPMENT REPAIRER us Renetta Jones MD PhD LAB POCT ORDERABLES - DEVICE Fi nal Result Performing Organization Address [facility] Co de Phone Number [facility] [place] [address] * IR Fluid Drain Soft Tissue (02/22/2024 1:14 PM HEAVY MOBILE EQUIPMENT REPAIRER) Anatomical Region Laterality Modality Body N/A X-Ray Angiograph y 02/22/2024 4:41 PM HEAVY MOBILE EQUIPMENT REPAIRER Addenda Addendum by Harrison Taylor MD on 02/23/2024 1:55 PM HEAVY MOBILE EQUIPMENT REPAIRER This addendum is being placed after cell differential and creatinine from peritoneal samples resulted. Drain 1 fluid analysis consistent with a hematoma. Drain 2 fluid analysis with 95% lymphocytes, consistent with a lymphocele. Dictated by: Savanna Kwok MD, PhD. The radiology attending physician has personally reviewed this study, and had reviewed and/or edited this written report and agrees with it. Electronically signed by: Harrison Taylor M.D. Impressions 02/22/2024 4:51 PM HEAVY MOBILE EQUIPMENT REPAIRER Successful image guided right lower quadrant fluid collection drainage times two. PLAN: Drains should be flushed with 5 mL normal saline every 8 hours and kept to low continuous suction. Please acquire a follow up CT abdomen pelvis with contrast 02/23/24. Dictated by: Savanna Kwok MD, PhD. The radiology attending physician has personally reviewed this study, and had reviewed and/or edited this written report and agrees with it. Electronically signed by: Harrison Taylor M.D. Narrative 02/22/2024 4:51 PM HEAVY MOBILE EQUIPMENT REPAIRER EXAMINATION: PERCUTANEOUS DRAINAGE (STD) HISTORY/INDICATION: 63-year-old male with history of ESRD who is post kidney transplant on 01/20/24 complicated by perinephric fluid collection. The patient is presenting for drain placement. ATTENDING PRESENCE: Harrison Taylor M.D., the attending radiologist was present from the beginning to the end of the procedure. SEDATION: Procedural sedation was administered under the attending physician's direction and continuous monitoring by a trained nurse specialist who was independent from those actually performing the procedure. Total monitored sedation time was 40 minutes. TECHNIQUE: The risks, benefits and alternatives were discussed and informed consent was obtained. Prior to beginning the procedure, [place] Protocol was used to confirm the patient's identity and planned procedure. If fluoroscopy was used, fluoroscopy time has been recorded in the electronic medical record. Maximum sterile barriers including cap, mask, hand hygiene, sterile gloves, sterile gown, large sterile drape and 2% chlorhexidine for cutaneous antisepsis were used. The skin overlying the fluid collections on the right side was sterilely prepped, draped and infiltrated with 1% buffered lidocaine. The patient's existing surgical drain was removed. The medial superficial right lower quadrant collection was accessed using an 18-gauge needle with ultrasound guidance. Contrast was injected to confirm needle placement. A guidewire was advanced and coiled within the collection before dilating to 12-Czech. A 12-Czech cope loop catheter was then advanced over the guidewire and secured in place using an 0 Prolene stitch. The catheter was connected to a suction bulb drain. The more lateral superficial right lower quadrant collection was then accessed using an 18-gauge needle with ultrasound guidance. Contrast was injected to confirm needle placement. A guidewire was advanced and coiled within the collection before dilating to 12-Czech. A 12-Czech Cobra catheter was then advanced over the guidewire and secured in place using 0 Prolene stitch. The catheter was connected to a suction bulb drainage. Three 10 cc samples of the fluid from each collection were sent for laboratory studies. ESTIMATED BLOOD LOSS: Minimal. CONDITION: Stable DISCHARGED TO: Recovery and then to inpatient unit. FINDINGS: Images from the procedure demonstrated two separate fluid collections in the right anterolateral abdominal wall, which were not in continuity. Fluid from the medial collection (drain 1) appeared serosanguineous with 600 mL of fluid drained at the time of the procedure. The fluid from the lateral collection (drain 2) appeared serous with 350 mL of fluid drained at the time of the procedure. Procedure Note Harrison Taylor MD - 02/22/2024 EXAMINATION: PERCUTANEOUS DRAINAGE (STD) HISTORY/INDICATION: 63-year-old male with history of ESRD who is post kidney transplant on 01/20/24 complicated by perinephric fluid collection. The patient is presenting for drain placement. ATTENDING PRESENCE: Harrison Taylor M.D., the attending radiologist was present from the beginning to the end of the procedure. SEDATION: Procedural sedation was administered under the attending physician's direction and continuous monitoring by a trained nurse specialist who was independent from those actually performing the procedure. Total monitored sedation time was 40 minutes. TECHNIQUE: The risks, benefits and alternatives were discussed and informed consent was obtained. Prior to beginning the procedure, [place] Protocol was used to confirm the patient's identity and planned procedure. If fluoroscopy was used, fluoroscopy time has been recorded in the electronic medical record. Maximum sterile barriers including cap, mask, hand hygiene, sterile gloves, sterile gown, large sterile drape and 2% chlorhexidine for cutaneous antisepsis were used. The skin overlying the fluid collections on the right side was sterilely prepped, draped and infiltrated with 1% buffered lidocaine. The patient's existing surgical drain was removed. The medial superficial right lower quadrant collection was accessed using an 18-gauge needle with ultrasound guidance. Contrast was injected to confirm needle placement. A guidewire was advanced and coiled within the collection before dilating to 12-Czech. A 12-Czech cope loop catheter was then advanced over the guidewire and secured in place using an 0 Prolene stitch. The catheter was connected to a suction bulb drain. The more lateral superficial right lower quadrant collection was then accessed using an 18-gauge needle with ultrasound guidance. Contrast was injected to confirm needle placement. A guidewire was advanced and coiled within the collection before dilating to 12-Czech. A 12-Czech Cobra catheter was then advanced over the guidewire and secured in place using 0 Prolene stitch. The catheter was connected to a suction bulb drainage. Three 10 cc samples of the fluid from each collection were sent for laboratory studies. ESTIMATED BLOOD LOSS: Minimal. CONDITION: Stable DISCHARGED TO: Recovery and then to inpatient unit. FINDINGS: Images from the procedure demonstrated two separate fluid collections in the right anterolateral abdominal wall, which were not in continuity. Fluid from the medial collection (drain 1) appeared serosanguineous with 600 mL of fluid drained at the time of the procedure. The fluid from the lateral collection (drain 2) appeared serous with 350 mL of fluid drained at the time of the procedure. IMPRESSION: Successful image guided right lower quadrant fluid collection drainage times two. PLAN: Drains should be flushed with 5 mL normal saline every 8 hours and kept to low continuous suction. Please acquire a follow up CT abdomen pelvis with contrast 02/23/24. Dictated by: Savanna Kwok MD, PhD. The radiology attending physician has personally reviewed this study, and had reviewed and/or edited this written report and agrees with it. Electronically signed by: Harrison Taylor M.D. [facility] ELE IMG IR PROCEDURES Edited R esult - Final * Cell Differential, Body Fluid (02/22/2024 12:50 PM HEAVY MOBILE EQUIPMENT REPAIRER) Total cells diffed 100 cells Comment: Interpretive Data Unless otherwise specified, the reference range and other method performance specifications have not been established for CSF/Body Fluid tests. The test results should be integrated into the clinical context for interpretation. Current interpretive data was last revised on 2018. Neutrophils, fld 1 % [facility] Lymphs, fld 95 % [facility] Monocyte, fld 4 % [facility] Specimen type, fld Peritoneal [facility] Fluid 02/22/2024 12:5 0 PM HEAVY MOBILE EQUIPMENT REPAIRER 02/22/2024 4:24 PM HEAVY MOBILE EQUIPMENT REPAIRER Renetta Jones MD PhD LAB BODY FLUIDS AND STOOLS ORDE RABLES Final Result Performing Organization Address [facility] Health/[facility] Co de Phone Number [facility] [place] [address] * (ABNORMAL) Cell count w/rflx diff, body fluid (02/22/2024 12:50 PM HEAVY MOBILE EQUIPMENT REPAIRER) Specimen type, fld Peritoneal Color, fld Olivia [facility] Clarity, fld Cloudy(A) Clear [facility] Nucleated cells, fld 44 /cumm [facility] Comment: Interpretive Data Unless otherwise specified, the reference range and other method performance specifications have not been established for CSF/Body Fluid tests. The test results should be integrated into the clinical context for interpretation. Current interpretive data was last revised on 2018. RBC, fld 2,832 /cumm [facility] Fluid 02/22/2024 12:5 0 PM HEAVY MOBILE EQUIPMENT REPAIRER 02/22/2024 4:24 PM HEAVY MOBILE EQUIPMENT REPAIRER Narrative [facility] - 02/22/2024 5:35 PM HEAVY MOBILE EQUIPMENT REPAIRER RLQ drain 2 us Renetta Jones MD PhD LAB BODY FLUIDS AND STOOLS ORDE RABLES Final Result Performing Organization Address [facility] Co de Phone Number [facility] [place] [address] * Creatinine, body fluid (02/22/2024 12:50 PM HEAVY MOBILE EQUIPMENT REPAIRER) Specimen type, fld Unknown Creatinine, fld 3.51 mg/dL [facility] Comment: The above specimen type is not cleared for use in this method by the FDA. Analytical characteristics have been validated by the performing laboratory. No reference range established - see interpretive comments. Interpretive Data Pleural or Peritoneal - Fluid to serum creatinine ratio > 1.0 is indicative of urine leakage into the source. References: Tesfaye Textbook of Clinical Chemistry and Molecular Diagnostics, Sixth Edition. Elsevier Press. 2018. Chapter 43, Body Fluids, p. 925 deeplocalUP Test directory, Body Fluid Reference Intervals and/or Interpretative Information. [email or web address] Current Interpretive Data was last revised 2018. Fluid 02/22/2024 12:5 0 PM HEAVY MOBILE EQUIPMENT REPAIRER 02/22/2024 4:23 PM HEAVY MOBILE EQUIPMENT REPAIRER Narrative [facility] - 02/22/2024 6:58 PM HEAVY MOBILE EQUIPMENT REPAIRER RLQ drain 1 us Renetta Jones MD PhD LAB BODY FLUIDS AND STOOLS THALIA PATRIA Final Result Performing Organization Address [facility] de Phone Number [facility] [place] [address] * (ABNORMAL) Potassium, whole blood (02/22/2024 6:27 AM HEAVY MOBILE EQUIPMENT REPAIRER) Potassium, bld 5.0(H) 3.3 - 4.9 mmol/L Comment:Reviewed. Blood 02/22/2024 6:27 AM HEAVY MOBILE EQUIPMENT REPAIRER 02/22/2024 6:36 AM HEAVY MOBILE EQUIPMENT REPAIRER Vannessa Hein [employer]ER [employer] LAB BLOOD ORDERABLES Fin al Result Performing Organization Address [facility] de Phone Number [facility] [place] [address] * POCT glucose (02/22/2024 6:27 AM HEAVY MOBILE EQUIPMENT REPAIRER) Glucose, POC 92 70 - 199 mg/dL Blood 02/22/2024 6:27 AM HEAVY MOBILE EQUIPMENT REPAIRER 02/22/2024 6:27 AM HEAVY MOBILE EQUIPMENT REPAIRER Renetta Jones MD PhD LAB POCT ORDERABLES - DEVICE Fi nal Result Performing Organization Address [facility] Co de Phone Number [facility] [place] [address] * (ABNORMAL) eGFR (02/22/2024 4:38 AM HEAVY MOBILE EQUIPMENT REPAIRER) eGFR 19(L) >=60 mL/min/1. 73 m2 Comment: Interpretive Data Reference Interval Normal >/= 90 mL/min/1.73m2 Mildly decreased* 60 - 89 mL/min/1.73m2 Mildly to moderately decreased 45 - 59 mL/min/1.73m2 Moderately to severely decreased 30 - 44 mL/min/1.73m2 Severely decreased 15 - 29 mL/min/1.73m2 Kidney Failure < 15 mL/min/1.73m2 *Relative to young adult level Estimated glomerular filtration rate is determined by the 2020 CKD-EPI equation recommended by the National Kidney Foundation (A Unifying Approach to GFR Estimation: Recommendations of the NKF-ASK Task Force on Reassessing the Inclusion of Race in Diagnosing Kidney Disease, JASN 2020). The CKD-EPI equation should not be used for patients with unstable renal function and has not been validated in children and those over 70. Current interpretive data was last reviewed 2020. Blood 02/22/2024 4:38 AM HEAVY MOBILE EQUIPMENT REPAIRER 02/22/2024 5:26 AM HEAVY MOBILE EQUIPMENT REPAIRER Rhoda LEE LAB BLOOD ORDERABLES Final Result Performing Organization Address [facility] Co de Phone Number [facility] [place] [address] * (ABNORMAL) Differential, auto (02/22/2024 4:38 AM HEAVY MOBILE EQUIPMENT REPAIRER) Neutrophil abs 2.6 1.5 - 6.5 K/cumm Imm gran abs 0.0 0.0 - 0.1 K/cumm [facility] Lymphocyte abs 0.2(L) 0.8 - 3.3 K/cumm [facility] Monocyte abs 0.2 0.2 - 0.8 K/cumm [facility] Eosinophil abs 0.0 0.0 - 0.5 K/cumm [facility] Basophil abs 0.0 0.0 - 0.1 K/cumm [facility] Neutrophil pct 83.7 % [facility] Comment: Interpretive Data Percent cell count reference ranges are not reported, since discordance with absolute values may lead to misinterpretation of CBC data. Current Interpretive Data was last revised on 2017. Imm gran pct 0.6 % LINDA [facility] Comment: Interpretive Data Percent cell count reference ranges are not reported, since discordance with absolute values may lead to misinterpretation of CBC data. Current Interpretive Data was last revised on 2017. Lymphocyte pct 6.7 % [facility] Comment: Interpretive Data Percent cell count reference ranges are not reported, since discordance with absolute values may lead to misinterpretation of CBC data. Current Interpretive Data was last revised on 2017. Monocyte pct 6.7 % [facility] Comment: Interpretive Data Percent cell count reference ranges are not reported, since discordance with absolute values may lead to misinterpretation of CBC data. Current Interpretive Data was last revised on 2017. Eosinophil pct 1.3 % [facility] Comment: Interpretive Data Percent cell count reference ranges are not reported, since discordance with absolute values may lead to misinterpretation of CBC data. Current Interpretive Data was last revised on 2017. Basophil pct 1.0 % [facility] Comment: Interpretive Data Percent cell count reference ranges are not reported, since discordance with absolute values may lead to misinterpretation of CBC data. Current Interpretive Data was last revised on 2017. Blood 02/22/2024 4:38 AM HEAVY MOBILE EQUIPMENT REPAIRER 02/22/2024 5:26 AM HEAVY MOBILE EQUIPMENT REPAIRER us Rhoda LEE LAB BLOOD ORDERABLES Final Result [facility] [place] [address] * Tacrolimus level trough (02/22/2024 4:38 AM HEAVY MOBILE EQUIPMENT REPAIRER) Pathologist [facility] Tacrolimus trough 8.2 ng/mL Comment: Interpretive Data Testing performed by liquid chromatography-tandem mass spectrometry. Therapeutic concentrations vary depending on type of transplanted organ and time elapsed since transplant. Typical trough concentrations range from 5-15 ng/mL. This test was developed and its performance characteristics determined by the [facility] consistent with CLIA requirements. This test has not been cleared or approved by the [place] Food and Drug administration. Current interpretive data last reviewed 2019. Blood 02/22/2024 4:38 AM HEAVY MOBILE EQUIPMENT REPAIRER 02/22/2024 5:26 AM HEAVY MOBILE EQUIPMENT REPAIRER Rhoda LEE LAB BLOOD ORDERABLES Final Result [facility] [place] [address] * (ABNORMAL) CBC with auto differential (02/22/2024 4:38 AM HEAVY MOBILE EQUIPMENT REPAIRER) WBC 3.1(L) 3.8 - 9.9 K/cumm Hgb 10.8(L) 13.0 - 17.5 g/dL [facility] Hct 32.2(L) 38.9 - 50.3 % [facility] Plt 117(L) 150 - 400 K/cumm [facility] MPV 10.3 9.1 - 12.3 fL [facility] RBC 3.23(L) 4.30 - 5.80 M/cumm [facility] MCV 99.7(H) 81.3 - 96.4 fL [facility] MCH 33.4(H) 27.1 - 33.3 pg [facility] MCHC 33.5 32.3 - 35.7 g/dL [facility] RDW CV 16.9(H) 11.1 - 14.9 % [facility] RDW SD 62.2(H) 35.7 - 48.1 fL [facility] NRBC abs 0.00 0.00 - 0.01 K/cumm [facility] Blood 02/22/2024 4:38 AM HEAVY MOBILE EQUIPMENT REPAIRER 02/22/2024 5:26 AM HEAVY MOBILE EQUIPMENT REPAIRER us Rhoda LEE LAB BLOOD ORDERABLES Final Result [facility] [place] [address] * Magnesium (02/22/2024 4:38 AM HEAVY MOBILE EQUIPMENT REPAIRER) [facility] Magnesium 1.9 1.4 - 2.5 mg/dL Blood 02/22/2024 4:38 AM HEAVY MOBILE EQUIPMENT REPAIRER 02/22/2024 5:26 AM HEAVY MOBILE EQUIPMENT REPAIRER Rhoda Chantell LEE LAB BLOOD ORDERABLES Final Result Performing Organization Address [facility] de Phone Number [facility] [place] [address] * (ABNORMAL) Renal function panel (02/22/2024 4:38 AM HEAVY MOBILE EQUIPMENT REPAIRER) [facility] Sodium 140 135 - 145 mmol/L Potassium, pl 5.2(H) 3.3 - 4.9 mmol/L [facility] Chloride 107 97 - 110 mmol/L [facility] CO2 23 22 - 32 mmol/L [facility] Anion gap 10 2 - 15 mmol/L [facility] BUN 46(H) 6 - 25 mg/dL [facility] Creatinine 3.44(H) 0.80 - 1.30 mg/dL [facility] Glucose 94 70 - 199 mg/dL [facility] Comment: Interpretive Data Fasting glucose >/= 126 mg/dl is diagnostic for diabetes. Fasting is defined as no caloric intake for at least 8 hours. Fasting glucose between 100 mg/dl to 125 mg/dl is diagnostic of prediabetes. In a patient with classic symptoms of hyperglycemia or hyperglycemic crisis, a random glucose >/= 200 mg/dl is diagnostic for diabetes. In the absence of unequivocal hyperglycemia, results should be confirmed by repeat testing. The classification and Diagnosis of Diabetes Diabetes Care 202; 46: S19-S40. Current interpretive data was last revised 2022. Calcium 9.5 8.5 - 10.3 mg/dL [facility] Phosphorus, pl 4.5 2.3 - 4.5 mg/dL [facility] Albumin 3.6 3.5 - 5.0 g/dL [facility] Blood 02/22/2024 4:38 AM HEAVY MOBILE EQUIPMENT REPAIRER 02/22/2024 5:26 AM HEAVY MOBILE EQUIPMENT REPAIRER Rhoda Flores PA LAB BLOOD ORDERABLES Final Result Performing Organization Address [facility] de Phone Number [facility] [place] [address] * POCT glucose (02/21/2024 8:49 PM HEAVY MOBILE EQUIPMENT REPAIRER) Glucose, POC 107 70 - 199 mg/dL Blood 02/21/2024 8:49 PM HEAVY MOBILE EQUIPMENT REPAIRER 02/21/2024 8:49 PM HEAVY MOBILE EQUIPMENT REPAIRER Renetta Jones MD PhD LAB POCT ORDERABLES - DEVICE Fi nal Result Performing Organization Address [facility] de Phone Number [facility] [place] [address] * POCT glucose (02/21/2024 5:26 PM HEAVY MOBILE EQUIPMENT REPAIRER) Glucose, POC 108 70 - 199 mg/dL Blood 02/21/2024 5:26 PM HEAVY MOBILE EQUIPMENT REPAIRER 02/21/2024 5:26 PM HEAVY MOBILE EQUIPMENT REPAIRER Renetta Jones MD PhD LAB POCT ORDERABLES - DEVICE Fi nal Result Performing Organization Address [facility] de Phone Number [facility] [place] [address] * POCT glucose (02/21/2024 2:08 PM HEAVY MOBILE EQUIPMENT REPAIRER) Glucose, POC 147 70 - 199 mg/dL Blood 02/21/2024 2:08 PM HEAVY MOBILE EQUIPMENT REPAIRER 02/21/2024 2:08 PM HEAVY MOBILE EQUIPMENT REPAIRER us Renetta Jones MD PhD LAB POCT ORDERABLES - DEVICE Fi nal Result Performing Organization Address [facility] Co de Phone Number [facility] [place] [address] * (ABNORMAL) eGFR (02/21/2024 2:06 PM HEAVY MOBILE EQUIPMENT REPAIRER) Pathologist [facility] eGFR 20(L) >=60 mL/min/1. 73 m2 Comment: Interpretive Data Reference Interval Normal >/= 90 mL/min/1.73m2 Mildly decreased* 60 - 89 mL/min/1.73m2 Mildly to moderately decreased 45 - 59 mL/min/1.73m2 Moderately to severely decreased 30 - 44 mL/min/1.73m2 Severely decreased 15 - 29 mL/min/1.73m2 Kidney Failure < 15 mL/min/1.73m2 *Relative to young adult level Estimated glomerular filtration rate is determined by the 2020 CKD-EPI equation recommended by the National Kidney Foundation (A Unifying Approach to GFR Estimation: Recommendations of the NKF-ASK Task Force on Reassessing the Inclusion of Race in Diagnosing Kidney Disease, JASN 2020). The CKD-EPI equation should not be used for patients with unstable renal function and has not been validated in children and those over 70. Current interpretive data was last reviewed 2020. Blood 02/21/2024 2:06 PM HEAVY MOBILE EQUIPMENT REPAIRER 02/21/2024 2:24 PM HEAVY MOBILE EQUIPMENT REPAIRER us Rhoda LEE LAB BLOOD ORDERABLES Final Result Performing Organization Address [facility] Co de Phone Number [facility] [place] [address] * (ABNORMAL) Differential, auto (02/21/2024 2:06 PM HEAVY MOBILE EQUIPMENT REPAIRER) Pathologist [facility] Neutrophil abs 3.3 1.5 - 6.5 K/cumm Imm gran abs 0.0 0.0 - 0.1 K/cumm [facility] Lymphocyte abs 0.2(L) 0.8 - 3.3 K/cumm [facility] Monocyte abs 0.2 0.2 - 0.8 K/cumm [facility] Eosinophil abs 0.0 0.0 - 0.5 K/cumm [facility] Basophil abs 0.0 0.0 - 0.1 K/cumm [facility] Neutrophil pct 86.3 % [facility] Comment: Interpretive Data Percent cell count reference ranges are not reported, since discordance with absolute values may lead to misinterpretation of CBC data. Current Interpretive Data was last revised on 2017. Imm gran pct 0.8 % [facility] Comment: Interpretive Data Percent cell count reference ranges are not reported, since discordance with absolute values may lead to misinterpretation of CBC data. Current Interpretive Data was last revised on 2017. Lymphocyte pct 4.3 % [facility] Comment: Interpretive Data Percent cell count reference ranges are not reported, since discordance with absolute values may lead to misinterpretation of CBC data. Current Interpretive Data was last revised on 2017. Monocyte pct 6.4 % [facility] Comment: Interpretive Data Percent cell count reference ranges are not reported, since discordance with absolute values may lead to misinterpretation of CBC data. Current Interpretive Data was last revised on 2017. Eosinophil pct 1.1 % [facility] Comment: Interpretive Data Percent cell count reference ranges are not reported, since discordance with absolute values may lead to misinterpretation of CBC data. Current Interpretive Data was last revised on 2017. Basophil pct 1.1 % [facility] Comment: Interpretive Data Percent cell count reference ranges are not reported, since discordance with absolute values may lead to misinterpretation of CBC data. Current Interpretive Data was last revised on 2017. Blood 02/21/2024 2:06 PM HEAVY MOBILE EQUIPMENT REPAIRER 02/21/2024 2:24 PM HEAVY MOBILE EQUIPMENT REPAIRER Rhoda LEE LAB BLOOD ORDERABLES Final Result [facility] [place] [address] * (ABNORMAL) CBC with auto differential (02/21/2024 2:06 PM HEAVY MOBILE EQUIPMENT REPAIRER) WBC 3.8 3.8 - 9.9 K/cumm Hgb 10.9(L) 13.0 - 17.5 g/dL [facility] Hct 32.3(L) 38.9 - 50.3 % [facility] Plt 123(L) 150 - 400 K/cumm [facility] MPV 10.0 9.1 - 12.3 fL [facility] RBC 3.26(L) 4.30 - 5.80 M/cumm [facility] MCV 99.1(H) 81.3 - 96.4 fL [facility] MCH 33.4(H) 27.1 - 33.3 pg [facility] MCHC 33.7 32.3 - 35.7 g/dL [facility] RDW CV 17.0(H) 11.1 - 14.9 % [facility] RDW SD 61.9(H) 35.7 - 48.1 fL [facility] NRBC abs 0.00 0.00 - 0.01 K/cumm [facility] Blood 02/21/2024 2:06 PM HEAVY MOBILE EQUIPMENT REPAIRER 02/21/2024 2:24 PM HEAVY MOBILE EQUIPMENT REPAIRER Rhoda LEE LAB BLOOD ORDERABLES Final Result [facility] [place] [address] * Protime-INR (02/21/2024 2:06 PM HEAVY MOBILE EQUIPMENT REPAIRER) PT 12.0 9.7 - 13.0 sec INR 1.11 0.90 - 1.20 [facility] Comment: Interpretive data Oral anticoagulant therapeutic ranges: Venous thromboembolism prophylaxis or treatment: 2.0-3.0 CARDIOLOGY Standard range: 2.0-3.0 High-intensity range: 2.5-3.5 Refer to indication-specific guidelines for appropriate target ranges for prosthetic heart valve replacement. Current interpretive data was last revised on 2019. Blood 02/21/2024 2:06 PM HEAVY MOBILE EQUIPMENT REPAIRER 02/21/2024 2:24 PM HEAVY MOBILE EQUIPMENT REPAIRER Rhoda LEE LAB BLOOD ORDERABLES Final Result Performing Organization Address City/[facility]/ZIP Co de Phone Number [facility] [place] [address] * Magnesium (02/21/2024 2:06 PM HEAVY MOBILE EQUIPMENT REPAIRER) [facility] Magnesium 1.9 1.4 - 2.5 mg/dL Blood 02/21/2024 2:06 PM HEAVY MOBILE EQUIPMENT REPAIRER 02/21/2024 2:24 PM HEAVY MOBILE EQUIPMENT REPAIRER Rhoda Flores MS LAB BLOOD ORDERABLES Final Result Performing Organization Address [facility] de Phone Number [facility] [place] [address] * (ABNORMAL) Renal function panel (02/21/2024 2:06 PM HEAVY MOBILE EQUIPMENT REPAIRER) [facility] Sodium 140 135 - 145 mmol/L Potassium, pl 4.9 3.3 - 4.9 mmol/L [facility] Chloride 107 97 - 110 mmol/L [facility] CO2 23 22 - 32 mmol/L [facility] Anion gap 10 2 - 15 mmol/L [facility] BUN 45(H) 6 - 25 mg/dL [facility] Creatinine 3.25(H) 0.80 - 1.30 mg/dL [facility] Glucose 145 70 - 199 mg/dL [facility] Comment: Interpretive Data Fasting glucose >/= 126 mg/dl is diagnostic for diabetes. Fasting is defined as no caloric intake for at least 8 hours. Fasting glucose between 100 mg/dl to 125 mg/dl is diagnostic of prediabetes. In a patient with classic symptoms of hyperglycemia or hyperglycemic crisis, a random glucose >/= 200 mg/dl is diagnostic for diabetes. In the absence of unequivocal hyperglycemia, results should be confirmed by repeat testing. The classification and Diagnosis of Diabetes Diabetes Care 202; 46: S19-S40. Current interpretive data was last revised 2022. Calcium 9.4 8.5 - 10.3 mg/dL [facility] Phosphorus, pl 4.2 2.3 - 4.5 mg/dL [facility] Albumin 3.7 3.5 - 5.0 g/dL [facility] Blood 02/21/2024 2:06 PM HEAVY MOBILE EQUIPMENT REPAIRER 02/21/2024 2:24 PM HEAVY MOBILE EQUIPMENT REPAIRER us Rhoda LEE LAB BLOOD ORDERABLES Final Result [facility] [place] [address] * ECG 12 lead (02/17/2024 4:29 PM HEAVY MOBILE EQUIPMENT REPAIRER) us Marian Merino MD ECG ORDERABLES Edited Res ult - Final * CT Abdomen Pelvis WO Contrast (02/17/2024 11:48 AM HEAVY MOBILE EQUIPMENT REPAIRER) Anatomical Region Laterality Modality Body N/A Computed Tomogra phy 02/17/2024 12:1 1 PM HEAVY MOBILE EQUIPMENT REPAIRER Impressions 02/17/2024 12:37 PM HEAVY MOBILE EQUIPMENT REPAIRER 1. 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 Unchanged position of the right lower quadrant approach surgical drain which is likely nonfunctional. Findings could be due to enlarging seroma versus possible urinoma. Recommend discussion with transplant urology/interventional radiology for drainage and fluid sampling. 2. No significant hydronephrosis of the right lower quadrant renal allograft with stable indwelling nephroureteral stent. The Non Critical results were discussed with Shama Antunez RN by Dr. Kathy Turpin M.D. on 02/17/2024 at 12:35 PM. Electronically signed by: Kathy Turpin M.D. Narrative 02/17/2024 12:37 PM HEAVY MOBILE EQUIPMENT REPAIRER EXAMINATION: Computed tomography of the abdomen and pelvis without intravenous contrast HISTORY: Swelling near incision site. 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 TECHNIQUE: Transaxial computed tomographic images of the abdomen and pelvis were obtained without intravenous contrast according to the standard protocol. COMPARISON: 02/09/2024, 09/17/2023 CT FINDINGS: Unchanged mild bilateral subpleural scarring/atelectasis without focal consolidation or lung bases. No pleural effusion. Stable heart size. Dense mitral annular valve calcifications with three-vessel coronary artery calcifications. Stable mild cardiomegaly. Small sliding hiatal hernia. Progressive enlargement of the complex multiloculated post operative right lower quadrant fluid collection compared to 02/09/2024, with increase in size of the right anterior abdominal wall collection at the incisional hernia now measuring at least 11.4 x 9.2 x 18.5 cm (series 2, image 173; series 4, image 26, previously measured 9.0 x 4.6 x 16 cm compatible with the reported swelling in the incision site. The communicating deeper multiloculated right pelvic collection anterior to the renal allograft further communicates with the more medial pelvic collection which is slightly increased in size, for example measuring up to 13.6 x 8 cm on image 172, previously 11.6 x 6 cm medial to the renal pelvis. This is extends medially into the anterior prevesical space on image 197 . The right anterior peritoneal collection overlying the renal transplant measures up to 11 cm in AP diameter, previously up to 9 cm (series 2, image 152). Unchanged position of the right lateral approach pigtail drainage catheter again again noted to course adjacent to and lateral the multiloculated pelvic collection terminating posterior lateral to the renal allograft and likely nonfunctional given the interval increase in size. The right lower quadrant renal allograft appears unchanged in size with stable nephroureteral stent with proximal tip within the renal pelvis and distal component in the urinary bladder without hydronephrosis. Atrophic torres martinez bilateral kidneys with extensive atherosclerotic calcifications of the bilateral renal arteries and branch vessels. Severe atherosclerotic calcifications are seen throughout the nonaneurysmal abdominal aorta and branch vessels most significant near the origin of the SMA and MALA. Unremarkable nonenhanced appearance of the liver, gallbladder, spleen with tiny calcified granulomata, and adrenal glands. Unremarkable pancreas. No suspicious abdominal or pelvic lymphadenopathy. Stomach and small bowel are unremarkable. Scattered uncomplicated colonic diverticulosis without abnormal bowel thickening or dilatation. No peritoneal nodules. Mild diffuse soft tissue anasarca. Multilevel degenerative changes in the imaged spine with postsurgical changes of prior median sternotomy. No aggressive osseous lesion. Procedure Note Kathy Turpin MD - 02/17/2024 EXAMINATION: Computed tomography of the abdomen and pelvis without intravenous contrast HISTORY: Swelling near incision site. 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 TECHNIQUE: Transaxial computed tomographic images of the abdomen and pelvis were obtained without intravenous contrast according to the standard protocol. COMPARISON: 02/09/2024, 09/17/2023 CT FINDINGS: Unchanged mild bilateral subpleural scarring/atelectasis without focal consolidation or lung bases. No pleural effusion. Stable heart size. Dense mitral annular valve calcifications with three-vessel coronary artery calcifications. Stable mild cardiomegaly. Small sliding hiatal hernia. Progressive enlargement of the complex multiloculated post operative right lower quadrant fluid collection compared to 02/09/2024, with increase in size of the right anterior abdominal wall collection at the incisional hernia now measuring at least 11.4 x 9.2 x 18.5 cm (series 2, image 173; series 4, image 26, previously measured 9.0 x 4.6 x 16 cm compatible with the reported swelling in the incision site. The communicating deeper multiloculated right pelvic collection anterior to the renal allograft further communicates with the more medial pelvic collection which is slightly increased in size, for example measuring up to 13.6 x 8 cm on image 172, previously 11.6 x 6 cm medial to the renal pelvis. This is extends medially into the anterior prevesical space on image 197 . The right anterior peritoneal collection overlying the renal transplant measures up to 11 cm in AP diameter, previously up to 9 cm (series 2, image 152). Unchanged position of the right lateral approach pigtail drainage catheter again again noted to course adjacent to and lateral the multiloculated pelvic collection terminating posterior lateral to the renal allograft and likely nonfunctional given the interval increase in size. The right lower quadrant renal allograft appears unchanged in size with stable nephroureteral stent with proximal tip within the renal pelvis and distal component in the urinary bladder without hydronephrosis. Atrophic torres martinez bilateral kidneys with extensive atherosclerotic calcifications of the bilateral renal arteries and branch vessels. Severe atherosclerotic calcifications are seen throughout the nonaneurysmal abdominal aorta and branch vessels most significant near the origin of the SMA and MALA. Unremarkable nonenhanced appearance of the liver, gallbladder, spleen with tiny calcified granulomata, and adrenal glands. Unremarkable pancreas. No suspicious abdominal or pelvic lymphadenopathy. Stomach and small bowel are unremarkable. Scattered uncomplicated colonic diverticulosis without abnormal bowel thickening or dilatation. No peritoneal nodules. Mild diffuse soft tissue anasarca. Multilevel degenerative changes in the imaged spine with postsurgical changes of prior median sternotomy. No aggressive osseous lesion. IMPRESSION: 1. 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 Unchanged position of the right lower quadrant approach surgical drain which is likely nonfunctional. Findings could be due to enlarging seroma versus possible urinoma. Recommend discussion with transplant urology/interventional radiology for drainage and fluid sampling. 2. No significant hydronephrosis of the right lower quadrant renal allograft with stable indwelling nephroureteral stent. The Non Critical results were discussed with Shama Antunez RN by Dr. Kathy Turpin M.D. on 02/17/2024 at 12:35 PM. Electronically signed by: Kathy Turpin M.D. Ayush Galvez MD [facility] [place] PROCEDURES Final Res ult * (ABNORMAL) eGFR (02/17/2024 10:25 AM HEAVY MOBILE EQUIPMENT REPAIRER) eGFR 23(L) >=60 mL/min/1. 73 m2 Comment: Interpretive Data Reference Interval Normal >/= 90 mL/min/1.73m2 Mildly decreased* 60 - 89 mL/min/1.73m2 Mildly to moderately decreased 45 - 59 mL/min/1.73m2 Moderately to severely decreased 30 - 44 mL/min/1.73m2 Severely decreased 15 - 29 mL/min/1.73m2 Kidney Failure < 15 mL/min/1.73m2 *Relative to young adult level Estimated glomerular filtration rate is determined by the 2020 CKD-EPI equation recommended by the National Kidney Foundation (A Unifying Approach to GFR Estimation: Recommendations of the NKF-ASK Task Force on Reassessing the Inclusion of Race in Diagnosing Kidney Disease, JASN 202). The CKD-EPI equation should not be used for patients with unstable renal function and has not been validated in children and those over 70. Current interpretive data was last reviewed 2020. Blood 02/17/2024 10:2 5 AM HEAVY MOBILE EQUIPMENT REPAIRER 02/17/2024 10:57 AM HEAVY MOBILE EQUIPMENT REPAIRER us Jack Morrison MD LAB BLOOD ORDERABLES Final R esult [facility] [place] [address] * (ABNORMAL) Differential, auto (02/17/2024 10:25 AM HEAVY MOBILE EQUIPMENT REPAIRER) Neutrophil abs 3.9 1.5 - 6.5 K/cumm Imm gran abs 0.0 0.0 - 0.1 K/cumm [facility] Lymphocyte abs 0.2(L) 0.8 - 3.3 K/cumm [facility] Monocyte abs 0.2 0.2 - 0.8 K/cumm [facility] Eosinophil abs 0.1 0.0 - 0.5 K/cumm [facility] Basophil abs 0.1 0.0 - 0.1 K/cumm [facility] Neutrophil pct 86.9 % [facility] Comment: Interpretive Data Percent cell count reference ranges are not reported, since discordance with absolute values may lead to misinterpretation of CBC data. Current Interpretive Data was last revised on 2017. Imm gran pct 0.7 % [facility] Comment: Interpretive Data Percent cell count reference ranges are not reported, since discordance with absolute values may lead to misinterpretation of CBC data. Current Interpretive Data was last revised on 2017. Lymphocyte pct 3.8 % [facility] Comment: Interpretive Data Percent cell count reference ranges are not reported, since discordance with absolute values may lead to misinterpretation of CBC data. Current Interpretive Data was last revised on 2017. Monocyte pct 5.1 % [facility] Comment: Interpretive Data Percent cell count reference ranges are not reported, since discordance with absolute values may lead to misinterpretation of CBC data. Current Interpretive Data was last revised on 2017. Eosinophil pct 2.2 % [facility] Comment: Interpretive Data Percent cell count reference ranges are not reported, since discordance with absolute values may lead to misinterpretation of CBC data. Current Interpretive Data was last revised on 2017. Basophil pct 1.3 % [facility] Comment: Interpretive Data Percent cell count reference ranges are not reported, since discordance with absolute values may lead to misinterpretation of CBC data. Current Interpretive Data was last revised on 2017. Blood 02/17/2024 10:2 5 AM HEAVY MOBILE EQUIPMENT REPAIRER 02/17/2024 10:57 AM HEAVY MOBILE EQUIPMENT REPAIRER us Jack Morrison MD LAB BLOOD ORDERABLES Final R esult [facility] [place] [address] * (ABNORMAL) CBC with auto differential (02/17/2024 10:25 AM HEAVY MOBILE EQUIPMENT REPAIRER) WBC 4.5 3.8 - 9.9 K/cumm Hgb 11.4(L) 13.0 - 17.5 g/dL [facility] Hct 34.8(L) 38.9 - 50.3 % [facility] Plt 144(L) 150 - 400 K/cumm [facility] MPV 10.3 9.1 - 12.3 fL [facility] RBC 3.43(L) 4.30 - 5.80 M/cumm [facility] MCV 101.5(H) 81.3 - 96.4 fL [facility] MCH 33.2 27.1 - 33.3 pg [facility] MCHC 32.8 32.3 - 35.7 g/dL [facility] RDW CV 17.3(H) 11.1 - 14.9 % [facility] RDW SD 64.6(H) 35.7 - 48.1 fL [facility] NRBC abs 0.00 0.00 - 0.01 K/cumm [facility] Blood 02/17/2024 10:2 5 AM HEAVY MOBILE EQUIPMENT REPAIRER 02/17/2024 10:57 AM HEAVY MOBILE EQUIPMENT REPAIRER Jack Morrison MD LAB BLOOD ORDERABLES Final R esult Performing Organization Address [facility] de Phone Number [facility] [place] [address] * Tacrolimus level random (02/17/2024 10:25 AM HEAVY MOBILE EQUIPMENT REPAIRER) Pathologist [facility] Tacrolimus random 2.4 ng/mL Comment: Interpretive Data Testing performed by liquid chromatography-tandem mass spectrometry. Therapeutic concentrations vary depending on type of transplanted organ and time elapsed since transplant. Typical trough concentrations range from 5-15 ng/mL. This test was developed and its performance characteristics determined by the [facility] consistent with CLIA requirements. This test has not been cleared or approved by the [place] Food and Drug administration. Current interpretive data last reviewed 2019. Blood 02/17/2024 10:2 5 AM HEAVY MOBILE EQUIPMENT REPAIRER 02/17/2024 10:57 AM HEAVY MOBILE EQUIPMENT REPAIRER Result [facility] Jack Morrison MD LAB BLOOD ORDERABLES Final R esult Performing Organization Address [facility] de Phone Number [facility] [place] [place] [address] * Hepatitis B (HBV) DNA PCR, quantitative Blood (02/17/2024 10:25 AM HEAVY MOBILE EQUIPMENT REPAIRER) Pathologist [facility] HBV DNA Result Not Detected [facility] Comment: The quantifiable range of this assay is 10 IU/mL to 1,000,000,000 IU/mL (1.00 log IU/mL to 9.00 log IU/mL). Testing was performed by the [employer] HBV Test version 2.0 ([employer] Testing performed at [facility] Current Interpretive Data was last revised on 2020. Blood 02/17/2024 10:2 5 AM HEAVY MOBILE EQUIPMENT REPAIRER 02/17/2024 11:20 AM HEAVY MOBILE EQUIPMENT REPAIRER Jack Morrison MD LAB MICROBIOLOGY - GENERAL O RDERABLES Final Result Performing Organization Address [facility] [place] [address] [facility] * HIV-1 RNA PCR, quantitative Blood (02/17/2024 10:25 AM HEAVY MOBILE EQUIPMENT REPAIRER) Pathologist [facility] HIV-1 RNA Not Detected [facility] Comment: The quantifiable range of this assay is 20 copies/mL to 10,000,000 copies/mL (1.30 log copies/mL to 7.00 log copies/mL). Testing was performed by the [employer] HIV-1 Test([employer] Testing performed at [facility] Current Interpretive Data was last revised on 2020. Blood 02/17/2024 10:2 5 AM HEAVY MOBILE EQUIPMENT REPAIRER 02/17/2024 11:20 AM HEAVY MOBILE EQUIPMENT REPAIRER Jack Morrison MD LAB MICROBIOLOGY - GENERAL O RDERABLES Final Result Performing Organization Address [facility] [place] [address] [facility] * Hepatitis C (HCV) RNA PCR, quantitative Blood (02/17/2024 10:25 AM HEAVY MOBILE EQUIPMENT REPAIRER) [facility] HCV RNA result Not Detected [facility] Comment: The quantifiable range of this assay is 15 IU/mL to 100,000,000 IU/mL (1.18 log IU/mL to 8.00 log IU/mL). Testing was performed by the [employer] HCV Test ([employer] Testing performed at [facility] Current Interpretive Data was last revised on 2020 Blood 02/17/2024 10:2 5 AM HEAVY MOBILE EQUIPMENT REPAIRER 02/17/2024 11:20 AM HEAVY MOBILE EQUIPMENT REPAIRER Jack Morrison MD LAB MICROBIOLOGY - GENERAL O RDERABLES Final Result Performing Organization Address City/[facility] Co de Phone Number [facility] [place] [address] [facility] * Magnesium (02/17/2024 10:25 AM HEAVY MOBILE EQUIPMENT REPAIRER) Pathologist [facility] Magnesium 1.7 1.4 - 2.5 mg/dL Blood 02/17/2024 10:2 5 AM HEAVY MOBILE EQUIPMENT REPAIRER 02/17/2024 10:57 AM HEAVY MOBILE EQUIPMENT REPAIRER Jack Morrison MD LAB BLOOD ORDERABLES Final R esult Performing Organization Address [facility] de Phone Number [facility] [place] [address] * (ABNORMAL) Renal function panel (02/17/2024 10:25 AM HEAVY MOBILE EQUIPMENT REPAIRER) Pathologist [facility] Sodium 142 135 - 145 mmol/L Potassium, pl 5.0(H) 3.3 - 4.9 mmol/L [facility] Chloride 107 97 - 110 mmol/L [facility] CO2 21(L) 22 - 32 mmol/L [facility] Anion gap 14 2 - 15 mmol/L [facility] BUN 48(H) 6 - 25 mg/dL [facility] Creatinine 2.98(H) 0.80 - 1.30 mg/dL [facility] Glucose 79 70 - 199 mg/dL [facility] Comment: Interpretive Data Fasting glucose >/= 126 mg/dl is diagnostic for diabetes. Fasting is defined as no caloric intake for at least 8 hours. Fasting glucose between 100 mg/dl to 125 mg/dl is diagnostic of prediabetes. In a patient with classic symptoms of hyperglycemia or hyperglycemic crisis, a random glucose >/= 200 mg/dl is diagnostic for diabetes. In the absence of unequivocal hyperglycemia, results should be confirmed by repeat testing. The classification and Diagnosis of Diabetes Diabetes Care 2021; 46: S19-S40. Current interpretive data was last revised 2022. Calcium 10.0 8.5 - 10.3 mg/dL [facility] Phosphorus, pl 3.2 2.3 - 4.5 mg/dL [facility] Albumin 3.8 3.5 - 5.0 g/dL [facility] Blood 02/17/2024 10:2 5 AM HEAVY MOBILE EQUIPMENT REPAIRER 02/17/2024 10:57 AM HEAVY MOBILE EQUIPMENT REPAIRER Jack Morrison MD LAB BLOOD ORDERABLES Final R esult Performing Organization Address City/[facility]/ZIP Co de Phone Number [facility] Department [place] [address] * (ABNORMAL) eGFR (02/11/2024 9:00 AM HEAVY MOBILE EQUIPMENT REPAIRER) eGFR 19(L) >=60 mL/min/1. 73 m2 Comment: Interpretive Data Reference Interval Normal >/= 90 mL/min/1.73m2 Mildly decreased* 60 - 89 mL/min/1.73m2 Mildly to moderately decreased 45 - 59 mL/min/1.73m2 Moderately to severely decreased 30 - 44 mL/min/1.73m2 Severely decreased 15 - 29 mL/min/1.73m2 Kidney Failure < 15 mL/min/1.73m2 *Relative to young adult level Estimated glomerular filtration rate is determined by the 2020 CKD-EPI equation recommended by the National Kidney Foundation (A Unifying Approach to GFR Estimation: Recommendations of the NKF-ASK Task Force on Reassessing the Inclusion of Race in Diagnosing Kidney Disease, JASN 2020). The CKD-EPI equation should not be used for patients with unstable renal function and has not been validated in children and those over 70. Current interpretive data was last reviewed 2020. Blood 02/11/2024 9:00 AM HEAVY MOBILE EQUIPMENT REPAIRER 02/11/2024 11:51 AM HEAVY MOBILE EQUIPMENT REPAIRER us Rosalie Velásquez NP LAB BLOOD ORDERABLES Final Result Performing Organization Address City/[facility]/ZIP Co de Phone Number [facility] Department [place] [address] * (ABNORMAL) Differential, auto (02/11/2024 9:00 AM HEAVY MOBILE EQUIPMENT REPAIRER) Neutrophil abs 4.6 1.5 - 6.5 K/cumm Imm gran abs 0.0 0.0 - 0.1 K/cumm [facility] Lymphocyte abs 0.2(L) 0.8 - 3.3 K/cumm [facility] Monocyte abs 0.2 0.2 - 0.8 K/cumm [facility] Eosinophil abs 0.1 0.0 - 0.5 K/cumm [facility] Basophil abs 0.1 0.0 - 0.1 K/cumm [facility] Neutrophil pct 89.6 % [facility] Comment: Interpretive Data Percent cell count reference ranges are not reported, since discordance with absolute values may lead to misinterpretation of CBC data. Current Interpretive Data was last revised on 2017. Imm gran pct 0.6 % [facility] Comment: Interpretive Data Percent cell count reference ranges are not reported, since discordance with absolute values may lead to misinterpretation of CBC data. Current Interpretive Data was last revised on 2017. Lymphocyte pct 3.3 % [facility] Comment: Interpretive Data Percent cell count reference ranges are not reported, since discordance with absolute values may lead to misinterpretation of CBC data. Current Interpretive Data was last revised on 2017. Monocyte pct 3.9 % [facility] Comment: Interpretive Data Percent cell count reference ranges are not reported, since discordance with absolute values may lead to misinterpretation of CBC data. Current Interpretive Data was last revised on 2017. Eosinophil pct 1.6 % [facility] Comment: Interpretive Data Percent cell count reference ranges are not reported, since discordance with absolute values may lead to misinterpretation of CBC data. Current Interpretive Data was last revised on 2017. Basophil pct 1.0 % [facility] Comment: Interpretive Data Percent cell count reference ranges are not reported, since discordance with absolute values may lead to misinterpretation of CBC data. Current Interpretive Data was last revised on 2017. Blood 02/11/2024 9:00 AM HEAVY MOBILE EQUIPMENT REPAIRER 02/11/2024 11:48 AM HEAVY MOBILE EQUIPMENT REPAIRER Rosalie Hargroveterell Velásquez FREEZER UNLOADER LAB BLOOD ORDERABLES Final Result Performing Organization Address [facility] Co de Phone Number LINDA BALLARD Yen [facility] [place] [address] * Tacrolimus level trough (02/11/2024 9:00 AM HEAVY MOBILE EQUIPMENT REPAIRER) [facility] Tacrolimus trough 7.8 ng/mL Comment: Interpretive Data Testing performed by liquid chromatography-tandem mass spectrometry. Therapeutic concentrations vary depending on type of transplanted organ and time elapsed since transplant. Typical trough concentrations range from 5-15 ng/mL. This test was developed and its performance characteristics determined by the [facility] consistent with CLIA requirements. This test has not been cleared or approved by the US Food and Drug administration. Current interpretive data last reviewed 2019. Blood 02/11/2024 9:00 AM HEAVY MOBILE EQUIPMENT REPAIRER 02/11/2024 11:48 AM HEAVY MOBILE EQUIPMENT REPAIRER Rosaliecarleen Velásquez FREEZER UNLOADER LAB BLOOD ORDERABLES Final Result Performing Organization Address [facility] Co de Phone Number LINDA BALLARD Yen [facility] [place] [address] * (ABNORMAL) CBC with auto differential (02/11/2024 9:00 AM HEAVY MOBILE EQUIPMENT REPAIRER) [facility] WBC 5.1 3.8 - 9.9 K/cumm Hgb 10.0(L) 13.0 - 17.5 g/dL [facility] Hct 30.9(L) 38.9 - 50.3 % [facility] Plt 168 150 - 400 K/cumm [facility] MPV 9.9 9.1 - 12.3 fL [facility] RBC 2.94(L) 4.30 - 5.80 M/cumm [facility] MCV 105.1(H) 81.3 - 96.4 fL [facility] MCH 34.0(H) 27.1 - 33.3 pg [facility] MCHC 32.4 32.3 - 35.7 g/dL [facility] RDW CV 18.3(H) 11.1 - 14.9 % [facility] RDW SD 70.2(H) 35.7 - 48.1 fL [facility] NRBC abs 0.00 0.00 - 0.01 K/cumm [facility] Blood 02/11/2024 9:00 AM HEAVY MOBILE EQUIPMENT REPAIRER 02/11/2024 11:48 AM HEAVY MOBILE EQUIPMENT REPAIRER Rosalie Velásquez FREEZER UNLOADER LAB BLOOD ORDERABLES Final Result [facility] [place] [place] [address] * Magnesium (02/11/2024 9:00 AM HEAVY MOBILE EQUIPMENT REPAIRER) [facility] Magnesium 1.9 1.4 - 2.5 mg/dL Blood 02/11/2024 9:00 AM HEAVY MOBILE EQUIPMENT REPAIRER 02/11/2024 11:48 AM HEAVY MOBILE EQUIPMENT REPAIRER Rosalie Velásquez FREEZER UNLOADER LAB BLOOD ORDERABLES Final Result Performing Organization Address City/[facility] Co de Phone Number [facility] [place] [place] [address] * (ABNORMAL) Renal function panel (02/11/2024 9:00 AM HEAVY MOBILE EQUIPMENT REPAIRER) Pathologist [facility] Sodium 141 135 - 145 mmol/L Potassium, pl 4.9 3.3 - 4.9 mmol/L [facility] Chloride 105 97 - 110 mmol/L [facility] CO2 25 22 - 32 mmol/L [facility] Anion gap 11 2 - 15 mmol/L [facility] BUN 61(H) 6 - 25 mg/dL [facility] Creatinine 3.49(H) 0.80 - 1.30 mg/dL [facility] Glucose 103 70 - 199 mg/dL [facility] Comment: Interpretive Data Fasting glucose >/= 126 mg/dl is diagnostic for diabetes. Fasting is defined as no caloric intake for at least 8 hours. Fasting glucose between 100 mg/dl to 125 mg/dl is diagnostic of prediabetes. In a patient with classic symptoms of hyperglycemia or hyperglycemic crisis, a random glucose >/= 200 mg/dl is diagnostic for diabetes. In the absence of unequivocal hyperglycemia, results should be confirmed by repeat testing. The classification and Diagnosis of Diabetes Diabetes Care 2021; 46: S19-S40. Current interpretive data was last revised 2022. Calcium 9.8 8.5 - 10.3 mg/dL [facility] Phosphorus, pl 4.6(H) 2.3 - 4.5 mg/dL [facility] Albumin 3.7 3.5 - 5.0 g/dL [facility] Blood 02/11/2024 9:00 AM HEAVY MOBILE EQUIPMENT REPAIRER 02/11/2024 11:48 AM HEAVY MOBILE EQUIPMENT REPAIRER us Rosalie Velásquez NP LAB BLOOD ORDERABLES Final Result [facility] [place] [address] * CT Abdomen Pelvis WO Contrast (02/09/2024 3:42 PM HEAVY MOBILE EQUIPMENT REPAIRER) Anatomical Region Laterality Modality Body N/A Computed Tomogra phy 02/09/2024 4:37 PM HEAVY MOBILE EQUIPMENT REPAIRER Impressions 02/09/2024 4:44 PM HEAVY MOBILE EQUIPMENT REPAIRER Postsurgical changes of right iliac fossa kidney transplantation. Multiloculated postoperative fluid collection with communicating superficial and deep components. A left lower quadrant approach surgical drain is present, tip terminating just lateral to the deep component of the collection. The Critical results were discussed with SAURAV Yeung, by Dr. Cerna on 02/09/24 at 4:36 PM. Dictated by: Amparo Cerna MD The radiology attending physician has personally reviewed this study, and had reviewed and/or edited this written report and agrees with it. Electronically signed by: Mohsen Vallejo M.D. Narrative 02/09/2024 4:44 PM HEAVY MOBILE EQUIPMENT REPAIRER EXAMINATION: Computed tomography of the abdomen and pelvis without intravenous contrast HISTORY: Post kidney transplant 01/29/2024, high output from drain TECHNIQUE: Transaxial computed tomographic images of the abdomen and pelvis were obtained without intravenous contrast according to the standard protocol. COMPARISON: CT dated 09/17/2023 FINDINGS: Mitral valve annular calcification. Coronary stents are present. Mild left lower lobe atelectasis. No focal hepatic lesions. Normal gallbladder. No intrahepatic or extrahepatic ductal dilatation. Normal spleen, adrenals, pancreas. Atrophic torres martinez kidneys. No stones or hydronephrosis of the torres martinez kidneys. Postsurgical changes of right iliac fossa kidney transplantation. A transplant kidney ureteral stent is present in expected position. No stones or hydronephrosis in the transplant kidney. A multiloculated postoperative fluid collection is present, with multiple superficial components as well as a deep perinephric component medial and superior to the transplant kidney measuring approximately 10.1 x 5.9 cm. A surgical drain enters the peritoneum in the right lower quadrant and courses along the periphery of the superficial component. The drain terminates near the transplant kidney hilum, just lateral to the perinephric component. On coronal imaging, the superficial and deep components likely communicate, seen best on series 4 image 45. Diffuse stranding along the anterior abdominal wall and right flank. Dense atherosclerotic calcification of the abdominal aorta and its branches. No suspicious osseous lesions. Procedure Note Mohsen Vallejo MD - 02/09/2024 EXAMINATION: Computed tomography of the abdomen and pelvis without intravenous contrast HISTORY: Post kidney transplant 01/29/2024, high output from drain TECHNIQUE: Transaxial computed tomographic images of the abdomen and pelvis were obtained without intravenous contrast according to the standard protocol. COMPARISON: CT dated 09/17/2023 FINDINGS: Mitral valve annular calcification. Coronary stents are present. Mild left lower lobe atelectasis. No focal hepatic lesions. Normal gallbladder. No intrahepatic or extrahepatic ductal dilatation. Normal spleen, adrenals, pancreas. Atrophic torres martinez kidneys. No stones or hydronephrosis of the torres martinez kidneys. Postsurgical changes of right iliac fossa kidney transplantation. A transplant kidney ureteral stent is present in expected position. No stones or hydronephrosis in the transplant kidney. A multiloculated postoperative fluid collection is present, with multiple superficial components as well as a deep perinephric component medial and superior to the transplant kidney measuring approximately 10.1 x 5.9 cm. A surgical drain enters the peritoneum in the right lower quadrant and courses along the periphery of the superficial component. The drain terminates near the transplant kidney hilum, just lateral to the perinephric component. On coronal imaging, the superficial and deep components likely communicate, seen best on series 4 image 45. Diffuse stranding along the anterior abdominal wall and right flank. Dense atherosclerotic calcification of the abdominal aorta and its branches. No suspicious osseous lesions. IMPRESSION: Postsurgical changes of right iliac fossa kidney transplantation. Multiloculated postoperative fluid collection with communicating superficial and deep components. A left lower quadrant approach surgical drain is present, tip terminating just lateral to the deep component of the collection. The Critical results were discussed with SAURAV Yeung, by Dr. Cerna on 02/09/24 at 4:36 PM. Dictated by: Amparo Cerna MD The radiology attending physician has personally reviewed this study, and had reviewed and/or edited this written report and agrees with it. Electronically signed by: Mohsen Vallejo M.D. Vikki Nowak NP IMG CT PROCEDURES Final Resul t * Creatinine, body fluid (02/09/2024 3:29 PM HEAV[employer] MOBILE EQUIPMENT REPAIRER) Specimen type, fld Peritoneal Creatinine, fld 4.16 mg/dL LINDA BALLARD Comment: The above specimen type is not cleared for use in this method by the FDA. Analytical characteristics have been validated by the performing laboratory. No reference range established - see interpretive comments. Interpretive Data Pleural or Peritoneal - Fluid to serum creatinine ratio > 1.0 is indicative of urine leakage into the source. References: Tesfaye Textbook of Clinical Chemistry and Molecular Diagnostics, Sixth Edition. Elsevier Press. 2018. Chapter 43, Body Fluids, p. 925 [employer] Test directory, Body Fluid Reference Intervals and/or Interpretative Information. [email or web address] Current Interpretive Data was last revised 2018. Fluid 02/09/2024 3:29 PM [employer]AVY MOBILE EQUIPMENT REPAIRER 02/09/2024 6:15 PM HEAVY MOBILE EQUIPMENT REPAIRER Vikki Nowak NP LAB BODY FLUIDS AND STOOLS OR DERABLES Final Result [facility]DA [facility] [place] [address] * (ABNORMAL) eGFR (02/09/2024 9:00 AM HEAVY MOBILE EQUIPMENT REPAIRER) Pathologist [facility] eGFR 16(L) >=60 mL/min/1. 73 m2 Comment: Interpretive Data Reference Interval Normal >/= 90 mL/min/1.73m2 Mildly decreased* 60 - 89 mL/min/1.73m2 Mildly to moderately decreased 45 - 59 mL/min/1.73m2 Moderately to severely decreased 30 - 44 mL/min/1.73m2 Severely decreased 15 - 29 mL/min/1.73m2 Kidney Failure < 15 mL/min/1.73m2 *Relative to young adult level Estimated glomerular filtration rate is determined by the 2020 CKD-EPI equation recommended by the National Kidney Foundation (A Unifying Approach to GFR Estimation: Recommendations of the NKF-ASK Task Force on Reassessing the Inclusion of Race in Diagnosing Kidney Disease, JASN 2020). The CKD-EPI equation should not be used for patients with unstable renal function and has not been validated in children and those over 70. Current interpretive data was last reviewed 2020. Blood 02/09/2024 9:00 AM HEAVY MOBILE EQUIPMENT REPAIRER 02/09/2024 12:18 PM HEAVY MOBILE EQUIPMENT REPAIRER us Notinfile Unknown LAB BLOOD ORDERABLES Final Res ult [facility] Department [place] [address] * (ABNORMAL) Differential, auto (02/09/2024 9:00 AM HEAVY MOBILE EQUIPMENT REPAIRER) Pathologist [facility] Neutrophil abs 4.5 1.5 - 6.5 K/cumm Imm gran abs 0.0 0.0 - 0.1 K/cumm [facility] Lymphocyte abs 0.1(L) 0.8 - 3.3 K/cumm [facility] Monocyte abs 0.2 0.2 - 0.8 K/cumm [facility] Eosinophil abs 0.1 0.0 - 0.5 K/cumm [facility] Basophil abs 0.1 0.0 - 0.1 K/cumm [facility] Neutrophil pct 89.8 % [facility] Comment: Interpretive Data Percent cell count reference ranges are not reported, since discordance with absolute values may lead to misinterpretation of CBC data. Current Interpretive Data was last revised on 2017. Imm gran pct 0.2 % [facility] Comment: Interpretive Data Percent cell count reference ranges are not reported, since discordance with absolute values may lead to misinterpretation of CBC data. Current Interpretive Data was last revised on 2017. Lymphocyte pct 2.8 % [facility] Comment: Interpretive Data Percent cell count reference ranges are not reported, since discordance with absolute values may lead to misinterpretation of CBC data. Current Interpretive Data was last revised on 2017. Monocyte pct 4.2 % [facility] Comment: Interpretive Data Percent cell count reference ranges are not reported, since discordance with absolute values may lead to misinterpretation of CBC data. Current Interpretive Data was last revised on 2017. Eosinophil pct 2.0 % [facility] Comment: Interpretive Data Percent cell count reference ranges are not reported, since discordance with absolute values may lead to misinterpretation of CBC data. Current Interpretive Data was last revised on 2017. Basophil pct 1.0 % [facility] Comment: Interpretive Data Percent cell count reference ranges are not reported, since discordance with absolute values may lead to misinterpretation of CBC data. Current Interpretive Data was last revised on 2017. Blood 02/09/2024 9:00 AM HEAVY MOBILE EQUIPMENT REPAIRER 02/09/2024 11:59 AM HEAVY MOBILE EQUIPMENT REPAIRER us Notinfile Unknown LAB BLOOD ORDERABLES Final Res ult [facility] [place] [address] * Tacrolimus level trough (02/09/2024 9:00 AM HEAVY MOBILE EQUIPMENT REPAIRER) Pathologist [facility] Tacrolimus trough 7.5 ng/mL Comment: Interpretive Data Testing performed by liquid chromatography-tandem mass spectrometry. Therapeutic concentrations vary depending on type of transplanted organ and time elapsed since transplant. Typical trough concentrations range from 5-15 ng/mL. This test was developed and its performance characteristics determined by the [facility] consistent with CLIA requirements. This test has not been cleared or approved by the US Food and Drug administration. Current interpretive data last reviewed 2019. Blood 02/09/2024 9:00 AM HEAVY MOBILE EQUIPMENT REPAIRER 02/09/2024 12:01 PM HEAVY MOBILE EQUIPMENT REPAIRER us Notinfile Unknown LAB BLOOD ORDERABLES Final Res ult [facility] [place] [address] * (ABNORMAL) CBC with auto differential (02/09/2024 9:00 AM HEAVY MOBILE EQUIPMENT REPAIRER) WBC 5.0 3.8 - 9.9 K/cumm Hgb 9.7(L) 13.0 - 17.5 g/dL [facility] Hct 30.2(L) 38.9 - 50.3 % [facility] Plt 163 150 - 400 K/cumm [facility] MPV 10.4 9.1 - 12.3 fL [facility] RBC 2.91(L) 4.30 - 5.80 M/cumm [facility] MCV 103.8(H) 81.3 - 96.4 fL [facility] MCH 33.3 27.1 - 33.3 pg [facility] MCHC 32.1(L) 32.3 - 35.7 g/dL [facility] RDW CV 18.4(H) 11.1 - 14.9 % [facility] RDW SD 69.5(H) 35.7 - 48.1 fL [facility] NRBC abs 0.00 0.00 - 0.01 K/cumm [facility] Blood 02/09/2024 9:00 AM HEAVY MOBILE EQUIPMENT REPAIRER 02/09/2024 11:59 AM HEAVY MOBILE EQUIPMENT REPAIRER us Notinfile Unknown LAB BLOOD ORDERABLES Final Res ult [facility] [place] [address] * Magnesium (02/09/2024 9:00 AM HEAVY MOBILE EQUIPMENT REPAIRER) Pathologist [facility] Magnesium 2.0 1.4 - 2.5 mg/dL Blood 02/09/2024 9:00 AM HEAVY MOBILE EQUIPMENT REPAIRER 02/09/2024 11:59 AM HEAVY MOBILE EQUIPMENT REPAIRER us Notinfile Unknown LAB BLOOD ORDERABLES Final Res ult [facility] [place] [address] * (ABNORMAL) Renal function panel (02/09/2024 9:00 AM HEAVY MOBILE EQUIPMENT REPAIRER) Pathologist [facility] Sodium 143 135 - 145 mmol/L Potassium, pl 4.6 3.3 - 4.9 mmol/L [facility] Chloride 104 97 - 110 mmol/L [facility] CO2 27 22 - 32 mmol/L [facility] Anion gap 12 2 - 15 mmol/L [facility] BUN 60(H) 6 - 25 mg/dL [facility] Creatinine 3.91(H) 0.80 - 1.30 mg/dL [facility] Glucose 129 70 - 199 mg/dL [facility] Comment: Interpretive Data Fasting glucose >/= 126 mg/dl is diagnostic for diabetes. Fasting is defined as no caloric intake for at least 8 hours. Fasting glucose between 100 mg/dl to 125 mg/dl is diagnostic of prediabetes. In a patient with classic symptoms of hyperglycemia or hyperglycemic crisis, a random glucose >/= 200 mg/dl is diagnostic for diabetes. In the absence of unequivocal hyperglycemia, results should be confirmed by repeat testing. The classification and Diagnosis of Diabetes Diabetes Care 2021; 46: S19-S40. Current interpretive data was last revised 2022. Calcium 9.9 8.5 - 10.3 mg/dL [facility] Phosphorus, pl 4.5 2.3 - 4.5 mg/dL [facility] Albumin 3.7 3.5 - 5.0 g/dL [facility] Blood 02/09/2024 9:00 AM HEAVY MOBILE EQUIPMENT REPAIRER 02/09/2024 11:59 AM HEAVY MOBILE EQUIPMENT REPAIRER us Notinfile Unknown LAB BLOOD ORDERABLES Final Res ult Performing Organization Address City/[facility] Co de Phone Number [facility]DA [facility] [place] [address] * (ABNORMAL) eGFR (02/04/2024 8:52 AM HEAVY MOBILE EQUIPMENT REPAIRER) eGFR 17(L) >=60 mL/min/1. 73 m2 Comment: Interpretive Data Reference Interval Normal >/= 90 mL/min/1.73m2 Mildly decreased* 60 - 89 mL/min/1.73m2 Mildly to moderately decreased 45 - 59 mL/min/1.73m2 Moderately to severely decreased 30 - 44 mL/min/1.73m2 Severely decreased 15 - 29 mL/min/1.73m2 Kidney Failure < 15 mL/min/1.73m2 *Relative to young adult level Estimated glomerular filtration rate is determined by the 2020 CKD-EPI equation recommended by the National Kidney Foundation (A Unifying Approach to GFR Estimation: Recommendations of the NKF-ASK Task Force on Reassessing the Inclusion of Race in Diagnosing Kidney Disease, JASN 2020). The CKD-EPI equation should not be used for patients with unstable renal function and has not been validated in children and those over 70. Current interpretive data was last reviewed 2020. Blood 02/04/2024 8:52 AM HEAVY MOBILE EQUIPMENT REPAIRER 02/04/2024 1:15 PM HEAVY MOBILE EQUIPMENT REPAIRER us Notinfile Unknown LAB BLOOD ORDERABLES Final Res ult [facility] Department [place] [address] * (ABNORMAL) Differential, auto (02/04/2024 8:52 AM HEAVY MOBILE EQUIPMENT REPAIRER) Neutrophil abs 6.1 1.5 - 6.5 K/cumm Imm gran abs 0.0 0.0 - 0.1 K/cumm [facility] Lymphocyte abs 0.1(L) 0.8 - 3.3 K/cumm [facility] Monocyte abs 0.4 0.2 - 0.8 K/cumm [facility] Eosinophil abs 0.1 0.0 - 0.5 K/cumm [facility] Basophil abs 0.0 0.0 - 0.1 K/cumm [facility] Neutrophil pct 90.2 % [facility] Comment: Interpretive Data Percent cell count reference ranges are not reported, since discordance with absolute values may lead to misinterpretation of CBC data. Current Interpretive Data was last revised on 2017. Imm gran pct 0.6 % [facility] Comment: Interpretive Data Percent cell count reference ranges are not reported, since discordance with absolute values may lead to misinterpretation of CBC data. Current Interpretive Data was last revised on 2017. Lymphocyte pct 1.9 % [facility] Comment: Interpretive Data Percent cell count reference ranges are not reported, since discordance with absolute values may lead to misinterpretation of CBC data. Current Interpretive Data was last revised on 2017. Monocyte pct 5.4 % [facility] Comment: Interpretive Data Percent cell count reference ranges are not reported, since discordance with absolute values may lead to misinterpretation of CBC data. Current Interpretive Data was last revised on 2017. Eosinophil pct 1.5 % [facility] Comment: Interpretive Data Percent cell count reference ranges are not reported, since discordance with absolute values may lead to misinterpretation of CBC data. Current Interpretive Data was last revised on 2017. Basophil pct 0.4 % [facility] Comment: Interpretive Data Percent cell count reference ranges are not reported, since discordance with absolute values may lead to misinterpretation of CBC data. Current Interpretive Data was last revised on 2017. Blood 02/04/2024 8:52 AM HEAVY MOBILE EQUIPMENT REPAIRER 02/04/2024 1:09 PM HEAVY MOBILE EQUIPMENT REPAIRER us Notinfile Unknown LAB BLOOD ORDERABLES Final Res ult [facility] [place] [address] * Tacrolimus level trough (02/04/2024 8:52 AM HEAVY MOBILE EQUIPMENT REPAIRER) [facility] Tacrolimus trough 7.8 ng/mL Comment: Interpretive Data Testing performed by liquid chromatography-tandem mass spectrometry. Therapeutic concentrations vary depending on type of transplanted organ and time elapsed since transplant. Typical trough concentrations range from 5-15 ng/mL. This test was developed and its performance characteristics determined by the [facility] consistent with CLIA requirements. This test has not been cleared or approved by the US Food and Drug administration. Current interpretive data last reviewed 2019. Blood 02/04/2024 8:52 AM HEAVY MOBILE EQUIPMENT REPAIRER 02/04/2024 1:09 PM HEAVY MOBILE EQUIPMENT REPAIRER us Notinfile Unknown LAB BLOOD ORDERABLES Final Res ult [facility] [place] [address] * (ABNORMAL) CBC with auto differential (02/04/2024 8:52 AM HEAVY MOBILE EQUIPMENT REPAIRER) [facility] WBC 6.8 3.8 - 9.9 K/cumm Hgb 9.1(L) 13.0 - 17.5 g/dL [facility] Hct 27.6(L) 38.9 - 50.3 % [facility] Plt 141(L) 150 - 400 K/cumm [facility] MPV 10.8 9.1 - 12.3 fL [facility] RBC 2.71(L) 4.30 - 5.80 M/cumm [facility] MCV 101.8(H) 81.3 - 96.4 fL [facility] MCH 33.6(H) 27.1 - 33.3 pg [facility] MCHC 33.0 32.3 - 35.7 g/dL [facility] RDW CV 18.4(H) 11.1 - 14.9 % [facility] RDW SD 67.1(H) 35.7 - 48.1 fL [facility] NRBC abs 0.00 0.00 - 0.01 K/cumm [facility] Blood 02/04/2024 8:52 AM HEAVY MOBILE EQUIPMENT REPAIRER 02/04/2024 1:09 PM HEAVY MOBILE EQUIPMENT REPAIRER us Notinfile Unknown LAB BLOOD ORDERABLES Final Res ult Performing Organization Address [facility] Co de Phone Number [facility] [place] [address] * Magnesium (02/04/2024 8:52 AM HEAVY MOBILE EQUIPMENT REPAIRER) Magnesium 2.2 1.4 - 2.5 mg/dL Blood 02/04/2024 8:52 AM HEAVY MOBILE EQUIPMENT REPAIRER 02/04/2024 1:07 PM HEAVY MOBILE EQUIPMENT REPAIRER us Notinfile Unknown LAB BLOOD ORDERABLES Final Res ult Performing Organization Address [facility] de Phone Number [facility] Department [place] [address] * Creatinine, body fluid (02/04/2024 8:52 AM HEAVY MOBILE EQUIPMENT REPAIRER) Specimen type, fld CONSTANZA FLUID. PG Creatinine, fld 3.53 mg/dL [facility] Comment: The above specimen type is not cleared for use in this method by the FDA. Analytical characteristics have been validated by the performing laboratory. No reference range established - see interpretive comments. Interpretive Data Pleural or Peritoneal - Fluid to serum creatinine ratio > 1.0 is indicative of urine leakage into the source. References: Tesfaye Textbook of Clinical Chemistry and Molecular Diagnostics, Sixth Edition. Elsevier Press. 2018. Chapter 43, Body Fluids, p. 925 [employer] Test directory, Body Fluid Reference Intervals and/or Interpretative Information. [email or web address] Current Interpretive Data was last revised 2018. Fluid 02/04/2024 8:52 AM HEAVY MOBILE EQUIPMENT REPAIRER 02/04/2024 1:09 PM HEAVY MOBILE EQUIPMENT REPAIRER us Notinfile Unknown LAB BODY FLUIDS AND STOOLS ORD ERABLES Final Result Performing Organization Address City/[facility]/ZIP Co de Phone Number LINDA [facility] [place] [address] * (ABNORMAL) Renal function panel (02/04/2024 8:52 AM HEAVY MOBILE EQUIPMENT REPAIRER) Sodium 138 135 - 145 mmol/L Potassium, pl 3.8 3.3 - 4.9 mmol/L [facility] Chloride 98 97 - 110 mmol/L [facility] CO2 31 22 - 32 mmol/L [facility] Anion gap 9 2 - 15 mmol/L [facility] BUN 38(H) 6 - 25 mg/dL [facility] Creatinine 3.73(H) 0.80 - 1.30 mg/dL [facility] Glucose 126 70 - 199 mg/dL [facility] Comment: Interpretive Data Fasting glucose >/= 126 mg/dl is diagnostic for diabetes. Fasting is defined as no caloric intake for at least 8 hours. Fasting glucose between 100 mg/dl to 125 mg/dl is diagnostic of prediabetes. In a patient with classic symptoms of hyperglycemia or hyperglycemic crisis, a random glucose >/= 200 mg/dl is diagnostic for diabetes. In the absence of unequivocal hyperglycemia, results should be confirmed by repeat testing. The classification and Diagnosis of Diabetes Diabetes Care 202; 46: S19-S40. Current interpretive data was last revised 2022. Calcium 9.4 8.5 - 10.3 mg/dL [facility] Phosphorus, pl 4.9(H) 2.3 - 4.5 mg/dL [facility] Albumin 3.5 3.5 - 5.0 g/dL [facility] Blood 02/04/2024 8:52 AM HEAVY MOBILE EQUIPMENT REPAIRER 02/04/2024 1:07 PM HEAVY MOBILE EQUIPMENT REPAIRER us Notinfile Unknown LAB BLOOD ORDERABLES Final Res ult [facility]DA [facility] [place] [address] * (ABNORMAL) eGFR (02/02/2024 9:00 AM HEAVY MOBILE EQUIPMENT REPAIRER) [facility] eGFR 15(L) >=60 mL/min/1. 73 m2 Comment: Interpretive Data Reference Interval Normal >/= 90 mL/min/1.73m2 Mildly decreased* 60 - 89 mL/min/1.73m2 Mildly to moderately decreased 45 - 59 mL/min/1.73m2 Moderately to severely decreased 30 - 44 mL/min/1.73m2 Severely decreased 15 - 29 mL/min/1.73m2 Kidney Failure < 15 mL/min/1.73m2 *Relative to young adult level Estimated glomerular filtration rate is determined by the 2020 CKD-EPI equation recommended by the National Kidney Foundation (A Unifying Approach to GFR Estimation: Recommendations of the NKF-ASK Task Force on Reassessing the Inclusion of Race in Diagnosing Kidney Disease, JASN 2020). The CKD-EPI equation should not be used for patients with unstable renal function and has not been validated in children and those over 70. Current interpretive data was last reviewed 2020. Blood 02/02/2024 9:00 AM HEAVY MOBILE EQUIPMENT REPAIRER 02/02/2024 7:39 PM HEAVY MOBILE EQUIPMENT REPAIRER us Matthew Marti MD LAB BLOOD ORDERABLES Final Result [facility] [place] [address] * (ABNORMAL) Differential, auto (02/02/2024 9:00 AM HEAVY MOBILE EQUIPMENT REPAIRER) [facility] Neutrophil abs 6.9(H) 1.5 - 6.5 K/cumm Imm gran abs 0.1 0.0 - 0.1 K/cumm [facility] Lymphocyte abs 0.1(L) 0.8 - 3.3 K/cumm [facility] Monocyte abs 0.5 0.2 - 0.8 K/cumm [facility] Eosinophil abs 0.2 0.0 - 0.5 K/cumm [facility] Basophil abs 0.0 0.0 - 0.1 K/cumm [facility] Neutrophil pct 88.8 % [facility] Comment: Interpretive Data Percent cell count reference ranges are not reported, since discordance with absolute values may lead to misinterpretation of CBC data. Current Interpretive Data was last revised on 2017. Imm gran pct 1.0 % [facility] Comment: Interpretive Data Percent cell count reference ranges are not reported, since discordance with absolute values may lead to misinterpretation of CBC data. Current Interpretive Data was last revised on 2017. Lymphocyte pct 1.8 % [facility] Comment: Interpretive Data Percent cell count reference ranges are not reported, since discordance with absolute values may lead to misinterpretation of CBC data. Current Interpretive Data was last revised on 2017. Monocyte pct 5.8 % [facility] Comment: Interpretive Data Percent cell count reference ranges are not reported, since discordance with absolute values may lead to misinterpretation of CBC data. Current Interpretive Data was last revised on 2017. Eosinophil pct 2.1 % [facility] Comment: Interpretive Data Percent cell count reference ranges are not reported, since discordance with absolute values may lead to misinterpretation of CBC data. Current Interpretive Data was last revised on 2017. Basophil pct 0.5 % [facility] Comment: Interpretive Data Percent cell count reference ranges are not reported, since discordance with absolute values may lead to misinterpretation of CBC data. Current Interpretive Data was last revised on 2017. Blood 02/02/2024 9:00 AM HEAVY MOBILE EQUIPMENT REPAIRER 02/02/2024 7:37 PM HEAVY MOBILE EQUIPMENT REPAIRER Matthew Marti MD LAB BLOOD ORDERABLES Final Result [facility] [place] [address] * Tacrolimus level trough (02/02/2024 9:00 AM HEAVY MOBILE EQUIPMENT REPAIRER) Tacrolimus trough 8.2 ng/mL Comment: Interpretive Data Testing performed by liquid chromatography-tandem mass spectrometry. Therapeutic concentrations vary depending on type of transplanted organ and time elapsed since transplant. Typical trough concentrations range from 5-15 ng/mL. This test was developed and its performance characteristics determined by the [facility] consistent with CLIA requirements. This test has not been cleared or approved by the US Food and Drug administration. Current interpretive data last reviewed 2019. Blood 02/02/2024 9:00 AM HEAVY MOBILE EQUIPMENT REPAIRER 02/02/2024 7:37 PM HEAVY MOBILE EQUIPMENT REPAIRER Matthew Marti MD LAB BLOOD ORDERABLES Final Result Performing Organization Address City/[facility] Co de Phone Number [facility] Department [place] [address] * (ABNORMAL) CBC with auto differential (02/02/2024 9:00 AM HEAVY MOBILE EQUIPMENT REPAIRER) Pathologist [facility] WBC 7.7 3.8 - 9.9 K/cumm Hgb 9.6(L) 13.0 - 17.5 g/dL [facility] Hct 29.6(L) 38.9 - 50.3 % [facility] Plt 180 150 - 400 K/cumm [facility] MPV 11.1 9.1 - 12.3 fL [facility] RBC 2.92(L) 4.30 - 5.80 M/cumm [facility] MCV 101.4(H) 81.3 - 96.4 fL [facility] MCH 32.9 27.1 - 33.3 pg [facility] MCHC 32.4 32.3 - 35.7 g/dL [facility] RDW CV 18.3(H) 11.1 - 14.9 % [facility] RDW SD 64.1(H) 35.7 - 48.1 fL [facility] NRBC abs 0.02(H) 0.00 - 0.01 K/cumm [facility] Blood 02/02/2024 9:0 0 AM HEAVY MOBILE EQUIPMENT REPAIRER 02/02/2024 7:37 PM HEAVY MOBILE EQUIPMENT REPAIRER Matthew Marti MD LAB BLOOD ORDERABLES Final Result Performing Organization Address City/[facility]/ZIP Co de Phone Number [facility] [place] [address] * Magnesium (02/02/2024 9:00 AM HEAVY MOBILE EQUIPMENT REPAIRER) Magnesium 2.0 1.4 - 2.5 mg/dL Blood 02/02/2024 9:00 AM HEAVY MOBILE EQUIPMENT REPAIRER 02/02/2024 7:36 PM HEAVY MOBILE EQUIPMENT REPAIRER Matthew Marti MD LAB BLOOD ORDERABLES Final Result [facility] [place] [address] * (ABNORMAL) Renal function panel (02/02/2024 9:00 AM HEAVY MOBILE EQUIPMENT REPAIRER) Sodium 141 135 - 145 mmol/L Potassium, pl 3.4 3.3 - 4.9 mmol/L [facility] Chloride 95(L) 97 - 110 mmol/L [facility] CO2 29 22 - 32 mmol/L [facility] Anion gap 17(H) 2 - 15 mmol/L [facility] BUN 41(H) 6 - 25 mg/dL [facility] Creatinine 4.08(H) 0.80 - 1.30 mg/dL [facility] Glucose 82 70 - 199 mg/dL [facility] Comment: Interpretive Data Fasting glucose >/= 126 mg/dl is diagnostic for diabetes. Fasting is defined as no caloric intake for at least 8 hours. Fasting glucose between 100 mg/dl to 125 mg/dl is diagnostic of prediabetes. In a patient with classic symptoms of hyperglycemia or hyperglycemic crisis, a random glucose >/= 200 mg/dl is diagnostic for diabetes. In the absence of unequivocal hyperglycemia, results should be confirmed by repeat testing. The classification and Diagnosis of Diabetes Diabetes Care 2021; 46: S19-S40. Current interpretive data was last revised 2022. Calcium 9.4 8.5 - 10.3 mg/dL [facility] Phosphorus, pl 5.3(H) 2.3 - 4.5 mg/dL [facility] Albumin 3.6 3.5 - 5.0 g/dL [facility] Blood 02/02/2024 9:00 AM HEAVY MOBILE EQUIPMENT REPAIRER 02/02/2024 7:36 PM HEAVY MOBILE EQUIPMENT REPAIRER Matthew Marti MD LAB BLOOD ORDERABLES Final Result Performing Organization Address [facility] [place] [address] * POCT glucose (01/28/2024 5:58 PM HEAVY MOBILE EQUIPMENT REPAIRER) Glucose, POC 163 70 - 199 mg/dL Blood 01/28/2024 5:58 PM HEAVY MOBILE EQUIPMENT REPAIRER 01/28/2024 5:58 PM HEAVY MOBILE EQUIPMENT REPAIRER Ayush Galvez MD LAB POCT ORDERABLES - DEVIC E Final Result Performing Organization Address [facility] [place] [address] * POCT glucose (01/28/2024 12:47 PM HEAVY MOBILE EQUIPMENT REPAIRER) Glucose, POC 170 70 - 199 mg/dL Blood 01/28/2024 12:4 7 PM HEAVY MOBILE EQUIPMENT REPAIRER 01/28/2024 12:47 PM HEAVY MOBILE EQUIPMENT REPAIRER us Ayush Galvez MD LAB POCT ORDERABLES - DEVIC E Final Result Performing Organization Address [facility] [place] [address] * POCT glucose (01/28/2024 8:44 AM HEAVY MOBILE EQUIPMENT REPAIRER) Glucose, POC 113 70 - 199 mg/dL Blood 01/28/2024 8:44 AM HEAVY MOBILE EQUIPMENT REPAIRER 01/28/2024 8:44 AM HEAVY MOBILE EQUIPMENT REPAIRER us Ayush Galvez MD LAB POCT ORDERABLES - DEVIC E Final Result Performing Organization Address [facility] Co de Phone Number [facility] [place] [address] * (ABNORMAL) eGFR (01/28/2024 4:15 AM HEAVY MOBILE EQUIPMENT REPAIRER) eGFR 13(L) >=60 mL/min/1. 73 m2 Comment: Interpretive Data Reference Interval Normal >/= 90 mL/min/1.73m2 Mildly decreased* 60 - 89 mL/min/1.73m2 Mildly to moderately decreased 45 - 59 mL/min/1.73m2 Moderately to severely decreased 30 - 44 mL/min/1.73m2 Severely decreased 15 - 29 mL/min/1.73m2 Kidney Failure < 15 mL/min/1.73m2 *Relative to young adult level Estimated glomerular filtration rate is determined by the 2020 CKD-EPI equation recommended by the National Kidney Foundation (A Unifying Approach to GFR Estimation: Recommendations of the NKF-ASK Task Force on Reassessing the Inclusion of Race in Diagnosing Kidney Disease, JASN 2020). The CKD-EPI equation should not be used for patients with unstable renal function and has not been validated in children and those over 70. Current interpretive data was last reviewed 2020. Blood 01/28/2024 4:15 AM HEAVY MOBILE EQUIPMENT REPAIRER 01/28/2024 4:29 AM HEAVY MOBILE EQUIPMENT REPAIRER Ayush Galvez MD LAB BLOOD ORDERABLES Final Result [facility] [place] [address] * (ABNORMAL) Differential, auto (01/28/2024 4:15 AM HEAVY MOBILE EQUIPMENT REPAIRER) Neutrophil abs 7.5(H) 1.5 - 6.5 K/cumm Imm gran abs 0.5(H) 0.0 - 0.1 K/cumm [facility] Lymphocyte abs 0.1(L) 0.8 - 3.3 K/cumm [facility] Monocyte abs 0.5 0.2 - 0.8 K/cumm [facility] Eosinophil abs 0.1 0.0 - 0.5 K/cumm [facility] Basophil abs 0.0 0.0 - 0.1 K/cumm [facility] Neutrophil pct 87.1 % [facility] Comment: Interpretive Data Percent cell count reference ranges are not reported, since discordance with absolute values may lead to misinterpretation of CBC data. Current Interpretive Data was last revised on 2017. Imm gran pct 5.3 % [facility] Comment: Interpretive Data Percent cell count reference ranges are not reported, since discordance with absolute values may lead to misinterpretation of CBC data. Current Interpretive Data was last revised on 2017. Lymphocyte pct 1.4 % [facility] Comment: Interpretive Data Percent cell count reference ranges are not reported, since discordance with absolute values may lead to misinterpretation of CBC data. Current Interpretive Data was last revised on 2017. Monocyte pct 5.4 % [facility] Comment: Interpretive Data Percent cell count reference ranges are not reported, since discordance with absolute values may lead to misinterpretation of CBC data. Current Interpretive Data was last revised on 2017. Eosinophil pct 0.6 % [facility] Comment: Interpretive Data Percent cell count reference ranges are not reported, since discordance with absolute values may lead to misinterpretation of CBC data. Current Interpretive Data was last revised on 2017. Basophil pct 0.2 % [facility] Comment: Interpretive Data Percent cell count reference ranges are not reported, since discordance with absolute values may lead to misinterpretation of CBC data. Current Interpretive Data was last revised on 2017. Blood 01/28/2024 4:15 AM HEAVY MOBILE EQUIPMENT REPAIRER 01/28/2024 4:27 AM HEAVY MOBILE EQUIPMENT REPAIRER us Ayush Galvez MD LAB BLOOD ORDERABLES Final Result [facility] Department of Laboratories [place], [place] [id number] * Tacrolimus level trough (01/28/2024 4:15 AM HEAVY MOBILE EQUIPMENT REPAIRER) Tacrolimus trough 12.2 ng/mL Comment: Interpretive Data Testing performed by liquid chromatography-tandem mass spectrometry. Therapeutic concentrations vary depending on type of transplanted organ and time elapsed since transplant. Typical trough concentrations range from 5-15 ng/mL. This test was developed and its performance characteristics determined by the [facility] consistent with CLIA requirements. This test has not been cleared or approved by the US Food and Drug administration. Current interpretive data last reviewed 2019. Blood 01/28/2024 4:15 AM HEAVY MOBILE EQUIPMENT REPAIRER 01/28/2024 4:27 AM HEAVY MOBILE EQUIPMENT REPAIRER Ayush Galvez MD LAB BLOOD ORDERABLES Final Result Performing Organization Address City/[facility]/ZIP Co de Phone Number [facility] [place] [address] * (ABNORMAL) CBC with auto differential (01/28/2024 4:15 AM HEAVY MOBILE EQUIPMENT REPAIRER) WBC 8.6 3.8 - 9.9 K/cumm Hgb 9.5(L) 13.0 - 17.5 g/dL [facility] Hct 29.1(L) 38.9 - 50.3 % [facility] Plt 160 150 - 400 K/cumm [facility] MPV 11.1 9.1 - 12.3 fL [facility] RBC 3.06(L) 4.30 - 5.80 M/cumm [facility] MCV 95.1 81.3 - 96.4 fL [facility] MCH 31.0 27.1 - 33.3 pg [facility] MCHC 32.6 32.3 - 35.7 g/dL [facility] RDW CV 17.0(H) 11.1 - 14.9 % [facility] RDW SD 57.3(H) 35.7 - 48.1 fL [facility] NRBC abs 0.06(H) 0.00 - 0.01 K/cumm [facility] Blood 01/28/2024 4:15 AM HEAVY MOBILE EQUIPMENT REPAIRER 01/28/2024 4:27 AM HEAVY MOBILE EQUIPMENT REPAIRER Ayush Galvez MD LAB BLOOD ORDERABLES Final Result [facility] [place] [address] * Magnesium (01/28/2024 4:15 AM HEAVY MOBILE EQUIPMENT REPAIRER) Pathologist [facility] Magnesium 2.1 1.4 - 2.5 mg/dL Blood 01/28/2024 4:15 AM HEAVY MOBILE EQUIPMENT REPAIRER 01/28/2024 4:29 AM HEAVY MOBILE EQUIPMENT REPAIRER Ayush Galvez MD LAB BLOOD ORDERABLES Final Result [facility] [place] [address] * (ABNORMAL) Renal function panel (01/28/2024 4:15 AM HEAVY MOBILE EQUIPMENT REPAIRER) [facility] [place] Sodium 139 135 - 145 mmol/L Potassium, pl 3.7 3.3 - 4.9 mmol/L [facility] Chloride 94(L) 97 - 110 mmol/L [facility] CO2 29 22 - 32 mmol/L [facility] Anion gap 16(H) 2 - 15 mmol/L [facility] BUN 39(H) 6 - 25 mg/dL [facility] Creatinine 4.80(H) 0.80 - 1.30 mg/dL [facility] Glucose 126 70 - 199 mg/dL [facility] Comment: Interpretive Data Fasting glucose >/= 126 mg/dl is diagnostic for diabetes. Fasting is defined as no caloric intake for at least 8 hours. Fasting glucose between 100 mg/dl to 125 mg/dl is diagnostic of prediabetes. In a patient with classic symptoms of hyperglycemia or hyperglycemic crisis, a random glucose >/= 200 mg/dl is diagnostic for diabetes. In the absence of unequivocal hyperglycemia, results should be confirmed by repeat testing. The classification and Diagnosis of Diabetes Diabetes Care 2021; 46: S19-S40. Current interpretive data was last revised 2022. Calcium 9.9 8.5 - 10.3 mg/dL [facility] Phosphorus, pl 5.3(H) 2.3 - 4.5 mg/dL [facility] Albumin 3.4(L) 3.5 - 5.0 g/dL [facility] Blood 01/28/2024 4:15 AM HEAVY MOBILE EQUIPMENT REPAIRER 01/28/2024 4:29 AM HEAVY MOBILE EQUIPMENT REPAIRER us Ayush Galvez MD LAB BLOOD ORDERABLES Final Result Performing Organization Address [facility] de Phone Number [facility] [place] [address] * POCT glucose (01/27/2024 9:07 PM HEAVY MOBILE EQUIPMENT REPAIRER) Glucose, POC 180 70 - 199 mg/dL Blood 01/27/2024 9:07 PM HEAVY MOBILE EQUIPMENT REPAIRER 01/27/2024 9:07 PM HEAVY MOBILE EQUIPMENT REPAIRER us Ayush Galvez MD LAB POCT ORDERABLES - DEVIC E Final Result Performing Organization Address [facility] Phone Number [facility] [place] [address] * (ABNORMAL) POCT glucose (01/27/2024 5:55 PM HEAVY MOBILE EQUIPMENT REPAIRER) Glucose, POC 241(H) 70 - 199 mg/dL Blood 01/27/2024 5:55 PM HEAVY MOBILE EQUIPMENT REPAIRER 01/27/2024 5:55 PM HEAVY MOBILE EQUIPMENT REPAIRER Ayush Galvez MD LAB POCT ORDERABLES - DEVIC E Final Result Performing Organization Address [facility] de Phone Number [facility] [place] [address] * ECG 12 lead (01/27/2024 3:35 PM HEAVY MOBILE EQUIPMENT REPAIRER) Ventricular Rate EKG/Min 82 BPM [facility] QRS-Interval (MSEC) 144 ms [facility] QT-Interval (MSEC) 466 ms [facility] QTc 544 ms [facility] R [place] 4 degrees [facility] T [place] 20 degrees [facility] Diagnosis Atrial fibrillation with a premature ventricular beat or aberrantly conducted beat Non-specific intra-ventricul ar conduction block Abnormal ECG When compared with ECG of 25-JAN-2024 13:31, no significant change Confirmed by OLEKSANDR MATUTE M.D ([id number]) on 01/29/2024 10:04:40 AM [facility] 01/27/2024 3:35 PM HEAVY MOBILE EQUIPMENT REPAIRER 01/29/2024 10:04 AM HEAVY MOBILE EQUIPMENT REPAIRER us Ayush Galvez MD ECG ORDERABLES Final Resul t [facility] * POCT glucose (01/27/2024 12:24 PM HEAVY MOBILE EQUIPMENT REPAIRER) Glucose, POC 186 70 - 199 mg/dL Blood 01/27/2024 12:2 4 PM HEAVY MOBILE EQUIPMENT REPAIRER 01/27/2024 12:24 PM HEAVY MOBILE EQUIPMENT REPAIRER us Ayush Galvez MD LAB POCT ORDERABLES - DEVIC E Final Result Performing Organization Address City/[facility]/ZIP Co de Phone Number [facility] [place] [address] * (ABNORMAL) eGFR (01/27/2024 4:17 AM HEAVY MOBILE EQUIPMENT REPAIRER) eGFR 12(L) >=60 mL/min/1. 73 m2 Comment: Interpretive Data Reference Interval Normal >/= 90 mL/min/1.73m2 Mildly decreased* 60 - 89 mL/min/1.73m2 Mildly to moderately decreased 45 - 59 mL/min/1.73m2 Moderately to severely decreased 30 - 44 mL/min/1.73m2 Severely decreased 15 - 29 mL/min/1.73m2 Kidney Failure < 15 mL/min/1.73m2 *Relative to young adult level Estimated glomerular filtration rate is determined by the 2020 CKD-EPI equation recommended by the National Kidney Foundation (A Unifying Approach to GFR Estimation: Recommendations of the NKF-ASK Task Force on Reassessing the Inclusion of Race in Diagnosing Kidney Disease, JASN 2020). The CKD-EPI equation should not be used for patients with unstable renal function and has not been validated in children and those over 70. Current interpretive data was last reviewed 2020. Blood 01/27/2024 4:17 AM HEAVY MOBILE EQUIPMENT REPAIRER 01/27/2024 5:22 AM HEAVY MOBILE EQUIPMENT REPAIRER Ayush Galvez MD LAB BLOOD ORDERABLES Final Result [facility] [place] [address] * (ABNORMAL) Differential, auto (01/27/2024 4:17 AM HEAVY MOBILE EQUIPMENT REPAIRER) Neutrophil abs 5.7 1.5 - 6.5 K/cumm Imm gran abs 0.3(H) 0.0 - 0.1 K/cumm [facility] Lymphocyte abs 0.1(L) 0.8 - 3.3 K/cumm [facility] Monocyte abs 0.3 0.2 - 0.8 K/cumm [facility] Eosinophil abs 0.0 0.0 - 0.5 K/cumm [facility] Basophil abs 0.0 0.0 - 0.1 K/cumm [facility] Neutrophil pct 88.4 % [facility] Comment: Interpretive Data Percent cell count reference ranges are not reported, since discordance with absolute values may lead to misinterpretation of CBC data. Current Interpretive Data was last revised on 2017. Imm gran pct 4.2 % [facility] Comment: Interpretive Data Percent cell count reference ranges are not reported, since discordance with absolute values may lead to misinterpretation of CBC data. Current Interpretive Data was last revised on 2017. Lymphocyte pct 1.7 % [facility] Comment: Interpretive Data Percent cell count reference ranges are not reported, since discordance with absolute values may lead to misinterpretation of CBC data. Current Interpretive Data was last revised on 2017. Monocyte pct 5.0 % [facility] Comment: Interpretive Data Percent cell count reference ranges are not reported, since discordance with absolute values may lead to misinterpretation of CBC data. Current Interpretive Data was last revised on 2017. Eosinophil pct 0.5 % [facility] Comment: Interpretive Data Percent cell count reference ranges are not reported, since discordance with absolute values may lead to misinterpretation of CBC data. Current Interpretive Data was last revised on 2017. Basophil pct 0.2 % [facility] Comment: Interpretive Data Percent cell count reference ranges are not reported, since discordance with absolute values may lead to misinterpretation of CBC data. Current Interpretive Data was last revised on 2017. Blood 01/27/2024 4:17 AM HEAVY MOBILE EQUIPMENT REPAIRER 01/27/2024 5:22 AM HEAVY MOBILE EQUIPMENT REPAIRER Ayush Galvez MD LAB BLOOD ORDERABLES Final Result Performing Organization Address [facility] de Phone Number [facility] [place] [address] * Tacrolimus level trough (01/27/2024 4:17 AM HEAVY MOBILE EQUIPMENT REPAIRER) Pathologist [facility] Tacrolimus trough 12.2 ng/mL Comment: Interpretive Data Testing performed by liquid chromatography-tandem mass spectrometry. Therapeutic concentrations vary depending on type of transplanted organ and time elapsed since transplant. Typical trough concentrations range from 5-15 ng/mL. This test was developed and its performance characteristics determined by the [facility] consistent with CLIA requirements. This test has not been cleared or approved by the US Food and Drug administration. Current interpretive data last reviewed 2019. Blood 01/27/2024 4:17 AM HEAVY MOBILE EQUIPMENT REPAIRER 01/27/2024 5:22 AM HEAVY MOBILE EQUIPMENT REPAIRER Ayush Galvez MD LAB BLOOD ORDERABLES Final Result Performing Organization Address [facility] Co de Phone Number [facility] [place] [address] * (ABNORMAL) CBC with auto differential (01/27/2024 4:17 AM HEAVY MOBILE EQUIPMENT REPAIRER) Pathologist [facility] WBC 6.5 3.8 - 9.9 K/cumm Hgb 9.1(L) 13.0 - 17.5 g/dL [facility] Hct 26.8(L) 38.9 - 50.3 % [facility] Plt 144(L) 150 - 400 K/cumm [facility] MPV 11.8 9.1 - 12.3 fL [facility] RBC 2.85(L) 4.30 - 5.80 M/cumm [facility] MCV 94.0 81.3 - 96.4 fL [facility] MCH 31.9 27.1 - 33.3 pg [facility] MCHC 34.0 32.3 - 35.7 g/dL [facility] RDW CV 16.9(H) 11.1 - 14.9 % [facility] RDW SD 55.8(H) 35.7 - 48.1 fL [facility] NRBC abs 0.03(H) 0.00 - 0.01 K/cumm [facility] Blood 01/27/2024 4:17 AM HEAVY MOBILE EQUIPMENT REPAIRER 01/27/2024 5:22 AM HEAVY MOBILE EQUIPMENT REPAIRER Ayush Galvez MD LAB BLOOD ORDERABLES Final Result Performing Organization Address City/[facility] Co de Phone Number [facility] Department [place] [address] * Magnesium (01/27/2024 4:17 AM HEAVY MOBILE EQUIPMENT REPAIRER) Pathologist [facility] Magnesium 2.4 1.4 - 2.5 mg/dL Blood 01/27/2024 4:17 AM HEAVY MOBILE EQUIPMENT REPAIRER 01/27/2024 5:22 AM HEAVY MOBILE EQUIPMENT REPAIRER Ayush Galvez MD LAB BLOOD ORDERABLES Final Result Performing Organization Address City/[facility]/ZIP Co de Phone Number [facility] [place] [address] * (ABNORMAL) Renal function panel (01/27/2024 4:17 AM HEAVY MOBILE EQUIPMENT REPAIRER) Sodium 136 135 - 145 mmol/L Potassium, pl 3.9 3.3 - 4.9 mmol/L [facility] Comment:Hemolyzed; Potassium value may be falsely elevated by as much as 0.6-1.0 mmol/L. Suggest redraw and reanalysis. Chloride 93(L) 97 - 110 mmol/L [facility] CO2 29 22 - 32 mmol/L [facility] Anion gap 14 2 - 15 mmol/L [facility] BUN 47(H) 6 - 25 mg/dL [facility] Creatinine 5.15(H) 0.80 - 1.30 mg/dL [facility] Glucose 136 70 - 199 mg/dL [facility] Comment: Interpretive Data Fasting glucose >/= 126 mg/dl is diagnostic for diabetes. Fasting is defined as no caloric intake for at least 8 hours. Fasting glucose between 100 mg/dl to 125 mg/dl is diagnostic of prediabetes. In a patient with classic symptoms of hyperglycemia or hyperglycemic crisis, a random glucose >/= 200 mg/dl is diagnostic for diabetes. In the absence of unequivocal hyperglycemia, results should be confirmed by repeat testing. The classification and Diagnosis of Diabetes Diabetes Care 2021; 46: S19-S40. Current interpretive data was last revised 2022. Calcium 9.8 8.5 - 10.3 mg/dL [facility] Phosphorus, pl 5.8(H) 2.3 - 4.5 mg/dL [facility] Comment:Reviewed Albumin 3.2(L) 3.5 - 5.0 g/dL [facility] Blood 01/27/2024 4:17 AM HEAVY MOBILE EQUIPMENT REPAIRER 01/27/2024 5:22 AM HEAVY MOBILE EQUIPMENT REPAIRER us Ayush Galvez MD LAB BLOOD ORDERABLES Final Result [facility] Department [place] [address] * POCT glucose (01/26/2024 7:59 PM HEAVY MOBILE EQUIPMENT REPAIRER) Glucose, POC 152 70 - 199 mg/dL Blood 01/26/2024 7:59 PM HEAVY MOBILE EQUIPMENT REPAIRER 01/26/2024 7:59 PM HEAVY MOBILE EQUIPMENT REPAIRER us Ayush Galvez MD LAB POCT ORDERABLES - DEVIC E Final Result Performing Organization Address [facility] Co de Phone Number [facility] [place] [address] * POCT glucose (01/26/2024 5:15 PM HEAVY MOBILE EQUIPMENT REPAIRER) Glucose, POC 189 70 - 199 mg/dL Blood 01/26/2024 5:15 PM HEAVY MOBILE EQUIPMENT REPAIRER 01/26/2024 5:15 PM HEAVY MOBILE EQUIPMENT REPAIRER us Ayush Galvez MD LAB POCT ORDERABLES - DEVIC E Final Result Performing Organization Address [facility] de Phone Number [facility] [place] [address] * POCT glucose (01/26/2024 1:48 PM HEAVY MOBILE EQUIPMENT REPAIRER) Glucose, POC 149 70 - 199 mg/dL Blood 01/26/2024 1:48 PM HEAVY MOBILE EQUIPMENT REPAIRER 01/26/2024 1:48 PM HEAVY MOBILE EQUIPMENT REPAIRER us Ayush Galvez MD LAB POCT ORDERABLES - DEVIC E Final Result Performing Organization Address [facility] de Phone Number [facility] [place] [place] [address] * POCT glucose (01/26/2024 12:06 PM HEAVY MOBILE EQUIPMENT REPAIRER) Glucose, POC 180 70 - 199 mg/dL Blood 01/26/2024 12:0 6 PM HEAVY MOBILE EQUIPMENT REPAIRER 01/26/2024 12:06 PM HEAVY MOBILE EQUIPMENT REPAIRER us Ayush Galvez MD LAB POCT ORDERABLES - DEVIC E Final Result Performing Organization Address [facility] [place] [address] * Transfuse RBC (01/26/2024 9:55 AM HEAVY MOBILE EQUIPMENT REPAIRER) Blood Ayush Galvez MD BLOOD TRANSFUSION ORDERABLE S Edited Result - Final Performing Organization Address [facility] [place] [address] * POCT glucose (01/26/2024 8:25 AM HEAVY MOBILE EQUIPMENT REPAIRER) Glucose, POC 175 70 - 199 mg/dL Blood 01/26/2024 8:25 AM HEAVY MOBILE EQUIPMENT REPAIRER 01/26/2024 8:25 AM HEAVY MOBILE EQUIPMENT REPAIRER Result [facility] Ayush Galvez MD LAB POCT ORDERABLES - DEVIC E Final Result Performing Organization Address [facility] [place] [address] * Type and screen (01/26/2024 6:19 AM HEAVY MOBILE EQUIPMENT REPAIRER) Pathologist [facility] [place], indirect Negative ABO Rh O Negative [facility] Blood 01/26/2024 6:19 AM HEAVY MOBILE EQUIPMENT REPAIRER 01/26/2024 6:30 AM HEAVY MOBILE EQUIPMENT REPAIRER Narrative [facility] - 01/26/2024 7:36 AM HEAVY MOBILE EQUIPMENT REPAIRER Has the patient had Daratumumab or Isatuximab in the past 6 months?->Unknown Ayush Galvez MD LAB BLOOD BANK TEST ORDERAB LES Final Result Performing Organization Address [facility] [place] [address] * Prepare RBC: 1 Units (01/26/2024 5:41 AM HEAVY MOBILE EQUIPMENT REPAIRER) Pathologist [facility] Product code [id number] Unit Number [id number] * [facility] Product Blood Type ONEG [facility] Dispense Status PRESUMED TRANSFUSED [facility] Blood 01/26/2024 5:41 AM HEAVY MOBILE EQUIPMENT REPAIRER 01/26/2024 5:41 AM HEAVY MOBILE EQUIPMENT REPAIRER Narrative [facility] - 01/26/2024 4:02 PM HEAVY MOBILE EQUIPMENT REPAIRER Are special requirements needed? (All products are leukoreduced and CMV- safe)- >No Date required:-[id number] LRRBC # of [id number] Reasons:-Cardiovascular disease, Hgb <8 g/dL} us Ayush Galvez MD BLOOD BANK PRODUCT ORDERABL ES Final Result Performing Organization Address City/[facility]/ZIP Co de Phone Number [facility] [place] [address] * (ABNORMAL) eGFR (01/26/2024 4:39 AM HEAVY MOBILE EQUIPMENT REPAIRER) eGFR 9(L) >=60 mL/min/1. 73 m2 Comment: Interpretive Data Reference Interval Normal >/= 90 mL/min/1.73m2 Mildly decreased* 60 - 89 mL/min/1.73m2 Mildly to moderately decreased 45 - 59 mL/min/1.73m2 Moderately to severely decreased 30 - 44 mL/min/1.73m2 Severely decreased 15 - 29 mL/min/1.73m2 Kidney Failure < 15 mL/min/1.73m2 *Relative to young adult level Estimated glomerular filtration rate is determined by the 2020 CKD-EPI equation recommended by the National Kidney Foundation (A Unifying Approach to GFR Estimation: Recommendations of the NKF-ASK Task Force on Reassessing the Inclusion of Race in Diagnosing Kidney Disease, JASN 2020). The CKD-EPI equation should not be used for patients with unstable renal function and has not been validated in children and those over 70. Current interpretive data was last reviewed 2020. Blood 01/26/2024 4:39 AM HEAVY MOBILE EQUIPMENT REPAIRER 01/26/2024 5:17 AM HEAVY MOBILE EQUIPMENT REPAIRER us Ayush Galvez MD LAB BLOOD ORDERABLES Final Result [facility] [place] [address] * (ABNORMAL) Differential, auto (01/26/2024 4:39 AM HEAVY MOBILE EQUIPMENT REPAIRER) Neutrophil abs 4.2 1.5 - 6.5 K/cumm Imm gran abs 0.1 0.0 - 0.1 K/cumm [facility] Lymphocyte abs 0.1(L) 0.8 - 3.3 K/cumm [facility] Monocyte abs 0.2 0.2 - 0.8 K/cumm [facility] Eosinophil abs 0.0 0.0 - 0.5 K/cumm [facility] Basophil abs 0.0 0.0 - 0.1 K/cumm [facility] Neutrophil pct 91.1 % [facility] Comment: Interpretive Data Percent cell count reference ranges are not reported, since discordance with absolute values may lead to misinterpretation of CBC data. Current Interpretive Data was last revised on 2017. Imm gran pct 2.0 % [facility] Comment: Interpretive Data Percent cell count reference ranges are not reported, since discordance with absolute values may lead to misinterpretation of CBC data. Current Interpretive Data was last revised on 2017. Lymphocyte pct 1.7 % [facility] Comment: Interpretive Data Percent cell count reference ranges are not reported, since discordance with absolute values may lead to misinterpretation of CBC data. Current Interpretive Data was last revised on 2017. Monocyte pct 5.2 % [facility] Comment: Interpretive Data Percent cell count reference ranges are not reported, since discordance with absolute values may lead to misinterpretation of CBC data. Current Interpretive Data was last revised on 2017. Eosinophil pct 0.0 % [facility] Comment: Interpretive Data Percent cell count reference ranges are not reported, since discordance with absolute values may lead to misinterpretation of CBC data. Current Interpretive Data was last revised on 2017. Basophil pct 0.0 % [facility] Comment: Interpretive Data Percent cell count reference ranges are not reported, since discordance with absolute values may lead to misinterpretation of CBC data. Current Interpretive Data was last revised on 2017. Blood 01/26/2024 4:39 AM HEAVY MOBILE EQUIPMENT REPAIRER 01/26/2024 5:17 AM HEAVY MOBILE EQUIPMENT REPAIRER Ayush Galvez MD LAB BLOOD ORDERABLES Final Result Performing Organization Address [facility] de Phone Number [facility] [place] [place] [address] * Tacrolimus level trough (01/26/2024 4:39 AM HEAVY MOBILE EQUIPMENT REPAIRER) [facility] [place] Tacrolimus trough 8.9 ng/mL Comment: Interpretive Data Testing performed by liquid chromatography-tandem mass spectrometry. Therapeutic concentrations vary depending on type of transplanted organ and time elapsed since transplant. Typical trough concentrations range from 5-15 ng/mL. This test was developed and its performance characteristics determined by the [facility] consistent with CLIA requirements. This test has not been cleared or approved by the [place] Food and Drug administration. Current interpretive data last reviewed 2019. Blood 01/26/2024 4:39 AM HEAVY MOBILE EQUIPMENT REPAIRER 01/26/2024 5:17 AM HEAVY MOBILE EQUIPMENT REPAIRER Ayush Galvez MD LAB BLOOD ORDERABLES Final Result Performing Organization Address [facility] de Phone Number [facility] [place] [address] * (ABNORMAL) CBC with auto differential (01/26/2024 4:39 AM HEAVY MOBILE EQUIPMENT REPAIRER) [facility] [place] WBC 4.6 3.8 - 9.9 K/cumm Hgb 7.9(L) 13.0 - 17.5 g/dL [facility] Hct 23.5(L) 38.9 - 50.3 % [facility] Plt 111(L) 150 - 400 K/cumm [facility] MPV 11.9 9.1 - 12.3 fL [facility] RBC 2.49(L) 4.30 - 5.80 M/cumm [facility] MCV 94.4 81.3 - 96.4 fL [facility] MCH 31.7 27.1 - 33.3 pg [facility] MCHC 33.6 32.3 - 35.7 g/dL [facility] RDW CV 17.2(H) 11.1 - 14.9 % [facility] RDW SD 58.9(H) 35.7 - 48.1 fL [facility] NRBC abs 0.00 0.00 - 0.01 K/cumm [facility] Blood 01/26/2024 4:39 AM HEAVY MOBILE EQUIPMENT REPAIRER 01/26/2024 5:17 AM HEAVY MOBILE EQUIPMENT REPAIRER Ayush Galvez MD LAB BLOOD ORDERABLES Final Result Performing Organization Address City/[facility]/ZIP Co de Phone Number [facility] [place] [address] * Magnesium (01/26/2024 4:39 AM HEAVY MOBILE EQUIPMENT REPAIRER) [facility] [place] Magnesium 2.5 1.4 - 2.5 mg/dL Blood 01/26/2024 4:39 AM HEAVY MOBILE EQUIPMENT REPAIRER 01/26/2024 5:17 AM HEAVY MOBILE EQUIPMENT REPAIRER Ayush Galvez MD LAB BLOOD ORDERABLES Final Result Performing Organization Address [facility] Co de Phone Number [facility] [place] [address] * (ABNORMAL) Renal function panel (01/26/2024 4:39 AM HEAVY MOBILE EQUIPMENT REPAIRER) Pathologist [facility] Sodium 132(L) 135 - 145 mmol/L Potassium, pl 4.5 3.3 - 4.9 mmol/L [facility] Comment:Hemolyzed; Potassium value may be falsely elevated by as much as 0.3-0.5 mmol/L. Suggest redraw and reanalysis. Chloride 90(L) 97 - 110 mmol/L [facility] CO2 28 22 - 32 mmol/L [facility] Anion gap 14 2 - 15 mmol/L [facility] BUN 69(H) 6 - 25 mg/dL [facility] Creatinine 6.70(H) 0.80 - 1.30 mg/dL [facility] Glucose 172 70 - 199 mg/dL [facility] Comment: Interpretive Data Fasting glucose >/= 126 mg/dl is diagnostic for diabetes. Fasting is defined as no caloric intake for at least 8 hours. Fasting glucose between 100 mg/dl to 125 mg/dl is diagnostic of prediabetes. In a patient with classic symptoms of hyperglycemia or hyperglycemic crisis, a random glucose >/= 200 mg/dl is diagnostic for diabetes. In the absence of unequivocal hyperglycemia, results should be confirmed by repeat testing. The classification and Diagnosis of Diabetes Diabetes Care 2021; 46: S19-S40. Current interpretive data was last revised 2022. Calcium 9.6 8.5 - 10.3 mg/dL [facility] Phosphorus, pl 8.0(H) 2.3 - 4.5 mg/dL [facility] Albumin 3.0(L) 3.5 - 5.0 g/dL [facility] Blood 01/26/2024 4:39 AM HEAVY MOBILE EQUIPMENT REPAIRER 01/26/2024 5:17 AM HEAVY MOBILE EQUIPMENT REPAIRER Ayush Galvez MD LAB BLOOD ORDERABLES Final Result Performing Organization Address City/[facility]/ZIP Co de Phone Number [facility] [place] [address] * POCT glucose (01/25/2024 9:33 PM HEAVY MOBILE EQUIPMENT REPAIRER) [facility] [place] Glucose, POC 195 70 - 199 mg/dL Blood 01/25/2024 9:33 PM HEAVY MOBILE EQUIPMENT REPAIRER 01/25/2024 9:33 PM HEAVY MOBILE EQUIPMENT REPAIRER Ayush Galvez MD LAB POCT ORDERABLES - DEVIC E Final Result Performing Organization Address City/[facility]/ZIP Co de Phone Number [facility] [place] [address] * (ABNORMAL) Troponin I high-sensitivity 6-hour (01/25/2024 7:51 PM HEAVY MOBILE EQUIPMENT REPAIRER) Trop I hs 347(C) <=35 ng/L Comment: Previous critical value noted within 48 hours ago. Interpretive Data For further hscTnI resources including the diagnostic algorithm and an aid in interpretation, copy and paste this link: [email or web address] Current Interpretive Data last revised 2019. Trop I hs pct delta -11 % [facility] Comment:Previous critical va lue noted within 48 hours ago. Trop I hs interp Equivocal [facility] Comment:Previous critical va lue noted within 48 hours ago. Blood 01/25/2024 7:51 PM HEAVY MOBILE EQUIPMENT REPAIRER 01/25/2024 8:11 PM HEAVY MOBILE EQUIPMENT REPAIRER Vannessa Hein [employer]ZER [employer] LAB BLOOD ORDERABLES Fin al Result Performing Organization Address [facility] de Phone Number [facility] [place] [address] * (ABNORMAL) Troponin I high-sensitivity 4-hour (01/25/2024 6:00 PM HEAVY MOBILE EQUIPMENT REPAIRER) Pathologist [facility] Trop I hs 388(C) <=35 ng/L Comment: Previous critical value noted within 48 hours ago. Interpretive Data For further hscTnI resources including the diagnostic algorithm and an aid in interpretation, copy and paste this link: [email or web address] Current Interpretive Data last revised 2019. Trop I hs pct delta -1 % [facility] Trop I hs interp Insignificant [facility] Blood 01/25/2024 6:00 PM HEAVY MOBILE EQUIPMENT REPAIRER 01/25/2024 6:21 PM HEAVY MOBILE EQUIPMENT REPAIRER Vannessa Hein NP LAB BLOOD ORDERABLES Fin al Result Performing Organization Address [facility] Co de Phone Number [facility] [place] [address] * (ABNORMAL) POCT glucose (01/25/2024 5:49 PM HEAVY MOBILE EQUIPMENT REPAIRER) Glucose, POC 212(H) 70 - 199 mg/dL Blood 01/25/2024 5:49 PM HEAVY MOBILE EQUIPMENT REPAIRER 01/25/2024 5:49 PM HEAVY MOBILE EQUIPMENT REPAIRER us Ayush Galvez MD LAB POCT ORDERABLES - DEVIC E Final Result Performing Organization Address [facility] de Phone Number [facility] [place] [address] * (ABNORMAL) Troponin I high-sensitivity 2-hour (01/25/2024 3:44 PM HEAVY MOBILE EQUIPMENT REPAIRER) Pathologist [facility] Trop I hs 384(C) <=35 ng/L Comment: Previous critical value noted within 48 hours ago. Interpretive Data For further hscTnI resources including the diagnostic algorithm and an aid in interpretation, copy and paste this link: [email or web address]/[email or web address] Current Interpretive Data last revised 2019. Trop I hs pct delta -2 % [facility] Trop I hs interp Insignificant [facility] Blood 01/25/2024 3:44 PM HEAVY MOBILE EQUIPMENT REPAIRER 01/25/2024 4:16 PM HEAVY MOBILE EQUIPMENT REPAIRER us Vannessa Hein NP LAB BLOOD ORDERABLES Fin al Result Performing Organization Address [facility] de Phone Number [facility] [place] [address] * XR Chest 1 View (01/25/2024 2:52 PM HEAVY MOBILE EQUIPMENT REPAIRER) Anatomical Region Laterality Modality Body, Chest N/A Computed Radiogr aphy 01/25/2024 3:56 PM HEAVY MOBILE EQUIPMENT REPAIRER Impressions 01/25/2024 4:00 PM HEAVY MOBILE EQUIPMENT REPAIRER The current study is compared with the prior radiograph dated 01/22/2024. Median sternotomy wires and plates are noted. Right internal jugular central venous catheter tip projects over the superior vena cava. Possible trace bilateral pleural effusions are noted. There is no pneumothorax. No pulmonary consolidations or pulmonary edema. Stable enlargement of the cardiac silhouette is noted. Dictated by: Fadi Garcia M.D. The radiology attending physician has personally reviewed this study, and had reviewed and/or edited this written report and agrees with it. Electronically signed by: Erinn Morataya M.D. Narrative 01/25/2024 4:00 PM HEAVY MOBILE EQUIPMENT REPAIRER EXAMINATION: 1 view chest radiograph Procedure Note Erinn Morataya MD - 01/25/2024 EXAMINATION: 1 view chest radiograph IMPRESSION: The current study is compared with the prior radiograph dated 01/22/2024. Median sternotomy wires and plates are noted. Right internal jugular central venous catheter tip projects over the superior vena cava. Possible trace bilateral pleural effusions are noted. There is no pneumothorax. No pulmonary consolidations or pulmonary edema. Stable enlargement of the cardiac silhouette is noted. Dictated by: Fadi Garcia M.D. The radiology attending physician has personally reviewed this study, and had reviewed and/or edited this written report and agrees with it. Electronically signed by: Erinn Morataya M.D. Vannessa Hein IMG XR PROCEDURES Final Result * (ABNORMAL) CBC without differential (01/25/2024 2:42 PM HEAVY MOBILE EQUIPMENT REPAIRER) WBC 6.9 3.8 - 9.9 K/cumm Hgb 8.1(L) 13.0 - 17.5 g/dL [facility] Hct 24.5(L) 38.9 - 50.3 % [facility] Plt 94(L) 150 - 400 K/cumm [facility] MPV 11.4 9.1 - 12.3 fL [facility] RBC 2.56(L) 4.30 - 5.80 M/cumm [facility] MCV 95.7 81.3 - 96.4 fL [facility] MCH 31.6 27.1 - 33.3 pg [facility] MCHC 33.1 32.3 - 35.7 g/dL [facility] RDW CV 17.2(H) 11.1 - 14.9 % [facility] RDW SD 59.7(H) 35.7 - 48.1 fL [facility] NRBC abs 0.03(H) 0.00 - 0.01 K/cumm [facility] Blood 01/25/2024 2:42 PM HEAVY MOBILE EQUIPMENT REPAIRER 01/25/2024 2:56 PM HEAVY MOBILE EQUIPMENT REPAIRER [facility] [employer] LAB BLOOD ORDERABLES Final Result Performing Organization Address [facility] de Phone Number [facility] [place] [address] * (ABNORMAL) Troponin I high-sensitivity (01/25/2024 2:05 PM HEAVY MOBILE EQUIPMENT REPAIRER) Trop I hs 383(C) <=35 ng/L Comment: Previous critical value noted within 48 hours ago. Interpretive Data For further hscTnI resources including the diagnostic algorithm and an aid in interpretation, copy and paste this link: [email or web address] Current Interpretive Data last revised 2019. Blood 01/25/2024 2:05 PM HEAVY MOBILE EQUIPMENT REPAIRER 01/25/2024 2:23 PM HEAVY MOBILE EQUIPMENT REPAIRER Result [facility] [employer] LAB BLOOD ORDERABLES Final Result Performing Organization Address [facility] Co de Phone Number [facility] [place] [address] * (ABNORMAL) Troponin I high-sensitivity series (baseline, 2hr, 4hr, 6hr) (01/25/2024 1:46 PM HEAVY MOBILE EQUIPMENT REPAIRER) Trop I hs 391(C) <=35 ng/L Comment: Interpretive Data For further hscTnI resources including the diagnostic algorithm and an aid in interpretation, copy and paste this link: [email or web address] Current Interpretive Data last revised 2019. Blood 01/25/2024 1:46 PM HEAVY MOBILE EQUIPMENT REPAIRER 01/25/2024 1:59 PM HEAVY MOBILE EQUIPMENT REPAIRER Vannessa Hein [employer] LAB BLOOD ORDERABLES Fin al Result Performing Organization Address [facility] Co de Phone Number [facility] [place] [address] * Critical result callback Cardio chemistry (01/25/2024 1:46 PM HEAVY MOBILE EQUIPMENT REPAIRER) Date Notified [id number] Time Notified 1449 [facility] Test name Trop I hs base [facility] Called/Read Back Nadiya [facility] Credentials RN [facility] Called By afshin [facility] Blood 01/25/2024 1:46 PM HEAVY MOBILE EQUIPMENT REPAIRER 01/25/2024 2:11 PM HEAVY MOBILE EQUIPMENT REPAIRER Vannessa Hein [employer] LAB BLOOD ORDERABLES Fin al Result Performing Organization Address [facility] Co de Phone Number [facility] [place] [address] * ECG 12 lead (01/25/2024 1:31 PM HEAVY MOBILE EQUIPMENT REPAIRER) Ventricular Rate EKG/Min 82 BPM [facility] Atrial Rate 83 BPM [facility] QRS-Interval (MSEC) 144 ms [facility] QT-Interval (MSEC) 462 ms [facility] QTc 539 ms [facility] R [place] 7 degrees [facility] T [place] 3 degrees [facility] Diagnosis Atrial fibrillation/fl utter with variable A-V block Non-specific intra-ventricul ar conduction block Cannot rule out Inferior infarct , age undetermined Abnormal ECG When compared with ECG of 23-JAN-2024 01:02, (unconfirmed) T wave inversion no longer evident in Lateral leads QT has lengthened Confirmed by JENNIFER BYRD M.D ([id number]) on 01/26/2024 12:43:53 PM [facility] 01/25/2024 1:31 PM HEAVY MOBILE EQUIPMENT REPAIRER 01/26/2024 12:43 PM HEAVY MOBILE EQUIPMENT REPAIRER us Vannessa Hein FREEZER UNLOADER ECG ORDERABLES Final Re sult Performing Organization Address [facility]/ZIP Co de Phone Number [facility] * Creatinine, body fluid (01/25/2024 1:15 PM HEAVY MOBILE EQUIPMENT REPAIRER) Specimen type, fld Peritoneal Creatinine, fld 5.90 mg/dL [facility] Comment: The above specimen type is not cleared for use in this method by the FDA. Analytical characteristics have been validated by the performing laboratory. No reference range established - see interpretive comments. Interpretive Data Pleural or Peritoneal - Fluid to serum creatinine ratio > 1.0 is indicative of urine leakage into the source. References: Tesfaye Textbook of Clinical Chemistry and Molecular Diagnostics, Sixth Edition. Elsevier Press. 2018. Chapter 43, Body Fluids, p. 925 [employer] Test directory, Body Fluid Reference Intervals and/or Interpretative Information. [email or web address] Current Interpretive Data was last revised 2018. Fluid 01/25/2024 1:15 PM HEAVY MOBILE EQUIPMENT REPAIRER 01/25/2024 2:12 PM HEAVY MOBILE EQUIPMENT REPAIRER Narrative [facility] - 01/25/2024 2:45 PM HEAVY MOBILE EQUIPMENT REPAIRER CONSTANZA drain us Rosalie Velásquez FREEZER UNLOADER LAB BODY FLUIDS AND STOOLS ORDERABLES Final Result Performing Organization Address [facility] Co de Phone Number [facility] [place] [address] * POCT glucose (01/25/2024 12:46 PM HEAVY MOBILE EQUIPMENT REPAIRER) Glucose, POC 169 70 - 199 mg/dL Blood 01/25/2024 12:4 6 PM HEAVY MOBILE EQUIPMENT REPAIRER 01/25/2024 12:46 PM HEAVY MOBILE EQUIPMENT REPAIRER Ayush Galvez MD LAB POCT ORDERABLES - DEVIC E Final Result Performing Organization Address [facility] Co de Phone Number [facility] [place] [address] * POCT glucose (01/25/2024 11:13 AM HEAVY MOBILE EQUIPMENT REPAIRER) Glucose, POC 143 70 - 199 mg/dL Blood 01/25/2024 11:1 3 AM HEAVY MOBILE EQUIPMENT REPAIRER 01/25/2024 11:13 AM HEAVY MOBILE EQUIPMENT REPAIRER Ayush Galvez MD LAB POCT ORDERABLES - DEVIC E Final Result [facility] [place] [address] * IR Central Line Placement > 5 Years (01/25/2024 10:26 AM HEAVY MOBILE EQUIPMENT REPAIRER) Anatomical Region Laterality Modality Body N/A X-Ray Angiograph y 01/25/2024 11:2 6 AM HEAVY MOBILE EQUIPMENT REPAIRER Impressions 01/25/2024 2:04 PM HEAVY MOBILE EQUIPMENT REPAIRER Successful nontunneled catheter placement. PLAN: The catheter is ready for immediate use. When treatment is completed, this catheter can be removed at the bedside according to standard hospital protocol. Dictated by: Dallas Jacobsen M.D. The radiology attending physician has personally reviewed this study, and had reviewed and/or edited this written report and agrees with it. Electronically signed by: Juan Miguel Swan M.D. Narrative 01/25/2024 2:04 PM HEAVY MOBILE EQUIPMENT REPAIRER EXAMINATION: NONTUNNELED CENTRAL VENOUS CATHETER PLACEMENT (STD) HISTORY: 63-year-old male with ESRD s/p renal transplant requiring Rashmi for discharge. ATTENDING PRESENCE: Juan Miguel Swan M.D., the attending radiologist was present from the beginning to the end of the procedure. SEDATION: The patient did not require conscious sedation for the procedure. Local anesthetic was used. TECHNIQUE: The risks, benefits and alternatives were discussed and informed consent was obtained. Prior to beginning the procedure, [place] Protocol was used to confirm the patient's identity and planned procedure. Fluoroscopy time has been recorded in the electronic medical record. Maximum sterile barriers including cap, mask, hand hygiene, sterile gloves, sterile gown, large sterile drape and 2% chlorhexidine for cutaneous antisepsis were used. The skin over the right internal jugular vein was sterilely prepped, draped and infiltrated with 1% buffered lidocaine. Prior to the procedure, the target vessel was evaluated by ultrasound, an image of the patent vessel recorded, and this image placed in the patient's chart. After sterile prep, this vessel was accessed using realtime ultrasound guidance. A guidewire and catheter were then passed centrally using fluoroscopic guidance. The intravascular length from the access site to the right atrium was assessed. After dilating the tract, a dual lumen rashmi trimmed to the appropriate intravascular length was inserted over the guidewire. The catheter was flushed with 100U/ml heparin and secured in place. A sterile dressing was applied. ESTIMATED BLOOD LOSS: Minimal. CONDITION: Stable DISCHARGED TO: Floor FINDINGS: The final fluoroscopic image demonstrates the catheter with its tip at the cavoatrial junction. No complications are seen. Procedure Note Juan Miguel Swan MD - 01/25/2024 EXAMINATION: NONTUNNELED CENTRAL VENOUS CATHETER PLACEMENT (STD) HISTORY: 63-year-old male with ESRD s/p renal transplant requiring Rashmi for discharge. ATTENDING PRESENCE: Juan Miguel Swan M.D., the attending radiologist was present from the beginning to the end of the procedure. SEDATION: The patient did not require conscious sedation for the procedure. Local anesthetic was used. TECHNIQUE: The risks, benefits and alternatives were discussed and informed consent was obtained. Prior to beginning the procedure, [place] Protocol was used to confirm the patient's identity and planned procedure. Fluoroscopy time has been recorded in the electronic medical record. Maximum sterile barriers including cap, mask, hand hygiene, sterile gloves, sterile gown, large sterile drape and 2% chlorhexidine for cutaneous antisepsis were used. The skin over the right internal jugular vein was sterilely prepped, draped and infiltrated with 1% buffered lidocaine. Prior to the procedure, the target vessel was evaluated by ultrasound, an image of the patent vessel recorded, and this image placed in the patient's chart. After sterile prep, this vessel was accessed using realtime ultrasound guidance. A guidewire and catheter were then passed centrally using fluoroscopic guidance. The intravascular length from the access site to the right atrium was assessed. After dilating the tract, a dual lumen rashmi trimmed to the appropriate intravascular length was inserted over the guidewire. The catheter was flushed with 100U/ml heparin and secured in place. A sterile dressing was applied. ESTIMATED BLOOD LOSS: Minimal. CONDITION: Stable DISCHARGED TO: Floor FINDINGS: The final fluoroscopic image demonstrates the catheter with its tip at the cavoatrial junction. No complications are seen. IMPRESSION: Successful nontunneled catheter placement. PLAN: The catheter is ready for immediate use. When treatment is completed, this catheter can be removed at the bedside according to standard hospital protocol. Dictated by: Dallas Jacobsen M.D. The radiology attending physician has personally reviewed this study, and had reviewed and/or edited this written report and agrees with it. Electronically signed by: Juan Miguel Swan M.D. Vannessa Hein FREEZER UNLOADER IMG IR PROCEDURES Final Result * POCT glucose (01/25/2024 7:40 AM HEAVY MOBILE EQUIPMENT REPAIRER) Pathologist [facility] Glucose, POC 147 70 - 199 mg/dL Blood 01/25/2024 7:40 AM HEAVY MOBILE EQUIPMENT REPAIRER 01/25/2024 7:40 AM HEAVY MOBILE EQUIPMENT REPAIRER Ayush Galvez MD LAB POCT ORDERABLES - DEVIC E Final Result [facility] [place] [address] * (ABNORMAL) eGFR (01/25/2024 5:07 AM HEAVY MOBILE EQUIPMENT REPAIRER) [facility] eGFR 10(L) >=60 mL/min/1. 73 m2 Comment: Interpretive Data Reference Interval Normal >/= 90 mL/min/1.73m2 Mildly decreased* 60 - 89 mL/min/1.73m2 Mildly to moderately decreased 45 - 59 mL/min/1.73m2 Moderately to severely decreased 30 - 44 mL/min/1.73m2 Severely decreased 15 - 29 mL/min/1.73m2 Kidney Failure < 15 mL/min/1.73m2 *Relative to young adult level Estimated glomerular filtration rate is determined by the 2020 CKD-EPI equation recommended by the National Kidney Foundation (A Unifying Approach to GFR Estimation: Recommendations of the NKF-ASK Task Force on Reassessing the Inclusion of Race in Diagnosing Kidney Disease, JASMehnaz 202). The CKD-EPI equation should not be used for patients with unstable renal function and has not been validated in children and those over 70. Current interpretive data was last reviewed 2020. Blood 01/25/2024 5:07 AM HEAVY MOBILE EQUIPMENT REPAIRER 01/25/2024 5:25 AM HEAVY MOBILE EQUIPMENT REPAIRER us Ayush Galvez MD LAB BLOOD ORDERABLES Final Result [facility] [place] [address] * (ABNORMAL) Differential, auto (01/25/2024 5:07 AM HEAVY MOBILE EQUIPMENT REPAIRER) Neutrophil abs 3.3 1.5 - 6.5 K/cumm Imm gran abs 0.1 0.0 - 0.1 K/cumm [facility] Lymphocyte abs 0.1(L) 0.8 - 3.3 K/cumm [facility] Monocyte abs 0.2 0.2 - 0.8 K/cumm [facility] Eosinophil abs 0.0 0.0 - 0.5 K/cumm [facility] Basophil abs 0.0 0.0 - 0.1 K/cumm [facility] Neutrophil pct 90.8 % [facility] Comment: Interpretive Data Percent cell count reference ranges are not reported, since discordance with absolute values may lead to misinterpretation of CBC data. Current Interpretive Data was last revised on 2017. Imm gran pct 2.5 % [facility] Comment: Interpretive Data Percent cell count reference ranges are not reported, since discordance with absolute values may lead to misinterpretation of CBC data. Current Interpretive Data was last revised on 2017. Lymphocyte pct 1.7 % [facility] Comment: Interpretive Data Percent cell count reference ranges are not reported, since discordance with absolute values may lead to misinterpretation of CBC data. Current Interpretive Data was last revised on 2017. Monocyte pct 4.7 % [facility] Comment: Interpretive Data Percent cell count reference ranges are not reported, since discordance with absolute values may lead to misinterpretation of CBC data. Current Interpretive Data was last revised on 2017. Eosinophil pct 0.3 % [facility] Comment: Interpretive Data Percent cell count reference ranges are not reported, since discordance with absolute values may lead to misinterpretation of CBC data. Current Interpretive Data was last revised on 2017. Basophil pct 0.0 % [facility] Comment: Interpretive Data Percent cell count reference ranges are not reported, since discordance with absolute values may lead to misinterpretation of CBC data. Current Interpretive Data was last revised on 2017. Blood 01/25/2024 5:07 AM HEAVY MOBILE EQUIPMENT REPAIRER 01/25/2024 5:58 AM HEAVY MOBILE EQUIPMENT REPAIRER Ayush Galvez MD LAB BLOOD ORDERABLES Final Result Performing Organization Address [facility] de Phone Number [facility] [place] [address] * Tacrolimus level trough (01/25/2024 5:07 AM HEAVY MOBILE EQUIPMENT REPAIRER) [facility] Signature Tacrolimus trough 7.3 ng/mL Comment: Interpretive Data Testing performed by liquid chromatography-tandem mass spectrometry. Therapeutic concentrations vary depending on type of transplanted organ and time elapsed since transplant. Typical trough concentrations range from 5-15 ng/mL. This test was developed and its performance characteristics determined by the [facility] consistent with CLIA requirements. This test has not been cleared or approved by the US Food and Drug administration. Current interpretive data last reviewed 2019. Blood 01/25/2024 5:07 AM HEAVY MOBILE EQUIPMENT REPAIRER 01/25/2024 5:58 AM HEAVY MOBILE EQUIPMENT REPAIRER Ayush Galvez MD LAB BLOOD ORDERABLES Final Result Performing Organization Address [facility] Co de Phone Number [facility] [place] [address] * (ABNORMAL) CBC with auto differential (01/25/2024 5:07 AM HEAVY MOBILE EQUIPMENT REPAIRER) Pathologist [facility] WBC 3.6(L) 3.8 - 9.9 K/cumm Hgb 8.1(L) 13.0 - 17.5 g/dL [facility] Hct 24.1(L) 38.9 - 50.3 % [facility] Plt 92(L) 150 - 400 K/cumm [facility] MPV 11.0 9.1 - 12.3 fL [facility] RBC 2.55(L) 4.30 - 5.80 M/cumm [facility] MCV 94.5 81.3 - 96.4 fL [facility] MCH 31.8 27.1 - 33.3 pg [facility] MCHC 33.6 32.3 - 35.7 g/dL [facility] RDW CV 17.2(H) 11.1 - 14.9 % [facility] RDW SD 59.2(H) 35.7 - 48.1 fL [facility] NRBC abs 0.03(H) 0.00 - 0.01 K/cumm [facility] Blood 01/25/2024 5:07 AM HEAVY MOBILE EQUIPMENT REPAIRER 01/25/2024 5:58 AM HEAVY MOBILE EQUIPMENT REPAIRER us Ayush Galvez MD LAB BLOOD ORDERABLES Final Result [facility] [place] [address] * Magnesium (01/25/2024 5:07 AM HEAVY MOBILE EQUIPMENT REPAIRER) Pathologist [facility] Magnesium 2.3 1.4 - 2.5 mg/dL Blood 01/25/2024 5:07 AM HEAVY MOBILE EQUIPMENT REPAIRER 01/25/2024 5:25 AM HEAVY MOBILE EQUIPMENT REPAIRER Ayush Galvez MD LAB BLOOD ORDERABLES Final Result [facility] [place] [address] * (ABNORMAL) Renal function panel (01/25/2024 5:07 AM HEAVY MOBILE EQUIPMENT REPAIRER) Sodium 134(L) 135 - 145 mmol/L Potassium, pl 4.0 3.3 - 4.9 mmol/L [facility] Chloride 91(L) 97 - 110 mmol/L [facility] CO2 30 22 - 32 mmol/L [facility] Anion gap 13 2 - 15 mmol/L [facility] BUN 51(H) 6 - 25 mg/dL [facility] Creatinine 5.63(H) 0.80 - 1.30 mg/dL [facility] Glucose 152 70 - 199 mg/dL [facility] Comment: Interpretive Data Fasting glucose >/= 126 mg/dl is diagnostic for diabetes. Fasting is defined as no caloric intake for at least 8 hours. Fasting glucose between 100 mg/dl to 125 mg/dl is diagnostic of prediabetes. In a patient with classic symptoms of hyperglycemia or hyperglycemic crisis, a random glucose >/= 200 mg/dl is diagnostic for diabetes. In the absence of unequivocal hyperglycemia, results should be confirmed by repeat testing. The classification and Diagnosis of Diabetes Diabetes Care 2021; 46: S19-S40. Current interpretive data was last revised 2022. Calcium 9.4 8.5 - 10.3 mg/dL [facility] Phosphorus, pl 7.5(H) 2.3 - 4.5 mg/dL [facility] Albumin 3.2(L) 3.5 - 5.0 g/dL [facility] Blood 01/25/2024 5:07 AM HEAVY MOBILE EQUIPMENT REPAIRER 01/25/2024 5:25 AM HEAVY MOBILE EQUIPMENT REPAIRER us Ayush Galvez MD LAB BLOOD ORDERABLES Final Result [facility] [place] [address] * POCT glucose (01/24/2024 8:58 PM HEAVY MOBILE EQUIPMENT REPAIRER) Glucose, POC 195 70 - 199 mg/dL Blood 01/24/2024 8:58 PM HEAVY MOBILE EQUIPMENT REPAIRER 01/24/2024 8:58 PM HEAVY MOBILE EQUIPMENT REPAIRER us Ayush Galvez MD LAB POCT ORDERABLES - DEVIC E Final Result Performing Organization Address [facility] de Phone Number [facility] [place] [address] * POCT glucose (01/24/2024 4:57 PM HEAVY MOBILE EQUIPMENT REPAIRER) Glucose, POC 189 70 - 199 mg/dL Blood 01/24/2024 4:57 PM HEAVY MOBILE EQUIPMENT REPAIRER 01/24/2024 4:57 PM HEAVY MOBILE EQUIPMENT REPAIRER us Ayush Galvez MD LAB POCT ORDERABLES - DEVIC E Final Result Performing Organization Address [facility] Phone Number [facility] [place] [address] * (ABNORMAL) POCT glucose (01/24/2024 11:41 AM HEAVY MOBILE EQUIPMENT REPAIRER) Glucose, POC 219(H) 70 - 199 mg/dL Blood 01/24/2024 11:4 1 AM HEAVY MOBILE EQUIPMENT REPAIRER 01/24/2024 11:41 AM HEAVY MOBILE EQUIPMENT REPAIRER us Auysh Galvez MD LAB POCT ORDERABLES - DEVIC E Final Result Performing Organization Address [facility] de Phone Number [facility] [place] [address] * POCT glucose (01/24/2024 7:32 AM HEAVY MOBILE EQUIPMENT REPAIRER) Glucose, POC 187 70 - 199 mg/dL Blood 01/24/2024 7:32 AM HEAVY MOBILE EQUIPMENT REPAIRER 01/24/2024 7:32 AM HEAVY MOBILE EQUIPMENT REPAIRER us Ayush Galvez MD LAB POCT ORDERABLES - DEVIC E Final Result Performing Organization Address [facility] de Phone Number [facility] [place] [address] * (ABNORMAL) eGFR (01/24/2024 5:06 AM HEAVY MOBILE EQUIPMENT REPAIRER) eGFR 15(L) >=60 mL/min/1. 73 m2 Comment: Interpretive Data Reference Interval Normal >/= 90 mL/min/1.73m2 Mildly decreased* 60 - 89 mL/min/1.73m2 Mildly to moderately decreased 45 - 59 mL/min/1.73m2 Moderately to severely decreased 30 - 44 mL/min/1.73m2 Severely decreased 15 - 29 mL/min/1.73m2 Kidney Failure < 15 mL/min/1.73m2 *Relative to young adult level Estimated glomerular filtration rate is determined by the 2020 CKD-EPI equation recommended by the National Kidney Foundation (A Unifying Approach to GFR Estimation: Recommendations of the NKF-ASK Task Force on Reassessing the Inclusion of Race in Diagnosing Kidney Disease, JASN 2020). The CKD-EPI equation should not be used for patients with unstable renal function and has not been validated in children and those over 70. Current interpretive data was last reviewed 2020. Blood 01/24/2024 5:06 AM HEAVY MOBILE EQUIPMENT REPAIRER 01/24/2024 5:24 AM HEAVY MOBILE EQUIPMENT REPAIRER Ayush Galvez MD LAB BLOOD ORDERABLES Final Result Performing Organization Address [facility] Co de Phone Number [facility] [place] [address] * (ABNORMAL) Differential, auto (01/24/2024 5:06 AM HEAVY MOBILE EQUIPMENT REPAIRER) Neutrophil abs 5.8 1.5 - 6.5 K/cumm Imm gran abs 0.0 0.0 - 0.1 K/cumm [facility] Lymphocyte abs 0.1(L) 0.8 - 3.3 K/cumm [facility] Monocyte abs 0.3 0.2 - 0.8 K/cumm [facility] Eosinophil abs 0.0 0.0 - 0.5 K/cumm [facility] Basophil abs 0.0 0.0 - 0.1 K/cumm [facility] Neutrophil pct 93.5 % [facility] Comment: Interpretive Data Percent cell count reference ranges are not reported, since discordance with absolute values may lead to misinterpretation of CBC data. Current Interpretive Data was last revised on 2017. Imm gran pct 0.6 % [facility] Comment: Interpretive Data Percent cell count reference ranges are not reported, since discordance with absolute values may lead to misinterpretation of CBC data. Current Interpretive Data was last revised on 2017. Lymphocyte pct 1.0 % [facility] Comment: Interpretive Data Percent cell count reference ranges are not reported, since discordance with absolute values may lead to misinterpretation of CBC data. Current Interpretive Data was last revised on 2017. Monocyte pct 4.7 % [facility] Comment: Interpretive Data Percent cell count reference ranges are not reported, since discordance with absolute values may lead to misinterpretation of CBC data. Current Interpretive Data was last revised on 2017. Eosinophil pct 0.2 % [facility] Comment: Interpretive Data Percent cell count reference ranges are not reported, since discordance with absolute values may lead to misinterpretation of CBC data. Current Interpretive Data was last revised on 2017. Basophil pct 0.0 % [facility] Comment: Interpretive Data Percent cell count reference ranges are not reported, since discordance with absolute values may lead to misinterpretation of CBC data. Current Interpretive Data was last revised on 2017. Blood 01/24/2024 5:06 AM HEAVY MOBILE EQUIPMENT REPAIRER 01/24/2024 6:39 AM HEAVY MOBILE EQUIPMENT REPAIRER us Ayush Galvez MD LAB BLOOD ORDERABLES Final Result [facility] Department [place] [address] * Tacrolimus level trough (01/24/2024 5:06 AM HEAVY MOBILE EQUIPMENT REPAIRER) Tacrolimus trough 9.4 ng/mL Comment: Interpretive Data Testing performed by liquid chromatography-tandem mass spectrometry. Therapeutic concentrations vary depending on type of transplanted organ and time elapsed since transplant. Typical trough concentrations range from 5-15 ng/mL. This test was developed and its performance characteristics determined by the [facility] consistent with CLIA requirements. This test has not been cleared or approved by the US Food and Drug administration. Current interpretive data last reviewed 2019. Blood 01/24/2024 5:06 AM HEAVY MOBILE EQUIPMENT REPAIRER 01/24/2024 6:39 AM HEAVY MOBILE EQUIPMENT REPAIRER Ayush Galvez MD LAB BLOOD ORDERABLES Final Result [facility] [place] [address] * (ABNORMAL) CBC with auto differential (01/24/2024 5:06 AM HEAVY MOBILE EQUIPMENT REPAIRER) WBC 6.2 3.8 - 9.9 K/cumm Hgb 8.2(L) 13.0 - 17.5 g/dL [facility] Hct 24.4(L) 38.9 - 50.3 % [facility] Plt 103(L) 150 - 400 K/cumm [facility] MPV 11.4 9.1 - 12.3 fL [facility] RBC 2.57(L) 4.30 - 5.80 M/cumm [facility] MCV 94.9 81.3 - 96.4 fL [facility] MCH 31.9 27.1 - 33.3 pg [facility] MCHC 33.6 32.3 - 35.7 g/dL [facility] RDW CV 17.7(H) 11.1 - 14.9 % [facility] RDW SD 62.0(H) 35.7 - 48.1 fL [facility] NRBC abs 0.02(H) 0.00 - 0.01 K/cumm [facility] Blood 01/24/2024 5:06 AM HEAVY MOBILE EQUIPMENT REPAIRER 01/24/2024 6:39 AM HEAVY MOBILE EQUIPMENT REPAIRER us Ayush Galvez MD LAB BLOOD ORDERABLES Final Result Performing Organization Address City/[facility]/ZIP Co de Phone Number [facility] [place] [address] * Magnesium (01/24/2024 5:06 AM HEAVY MOBILE EQUIPMENT REPAIRER) [facility] Magnesium 2.2 1.4 - 2.5 mg/dL Blood 01/24/2024 5:06 AM HEAVY MOBILE EQUIPMENT REPAIRER 01/24/2024 5:24 AM HEAVY MOBILE EQUIPMENT REPAIRER Ayush Galvez MD LAB BLOOD ORDERABLES Final Result Performing Organization Address [facility] de Phone Number [facility] [place] [address] * (ABNORMAL) Renal function panel (01/24/2024 5:06 AM HEAVY MOBILE EQUIPMENT REPAIRER) [facility] Sodium 137 135 - 145 mmol/L Potassium, pl 3.9 3.3 - 4.9 mmol/L [facility] Chloride 92(L) 97 - 110 mmol/L [facility] CO2 28 22 - 32 mmol/L [facility] Anion gap 17(H) 2 - 15 mmol/L [facility] BUN 36(H) 6 - 25 mg/dL [facility] Creatinine 4.25(H) 0.80 - 1.30 mg/dL [facility] Glucose 206(H) 70 - 199 mg/dL [facility] Comment: Interpretive Data Fasting glucose >/= 126 mg/dl is diagnostic for diabetes. Fasting is defined as no caloric intake for at least 8 hours. Fasting glucose between 100 mg/dl to 125 mg/dl is diagnostic of prediabetes. In a patient with classic symptoms of hyperglycemia or hyperglycemic crisis, a random glucose >/= 200 mg/dl is diagnostic for diabetes. In the absence of unequivocal hyperglycemia, results should be confirmed by repeat testing. The classification and Diagnosis of Diabetes Diabetes Care 2021; 46: S19-S40. Current interpretive data was last revised 2022. Calcium 9.1 8.5 - 10.3 mg/dL [facility] Phosphorus, pl 5.6(H) 2.3 - 4.5 mg/dL [facility] Comment:Repeated on Dilution Albumin 3.2(L) 3.5 - 5.0 g/dL [facility] Blood 01/24/2024 5:06 AM HEAVY MOBILE EQUIPMENT REPAIRER 01/24/2024 5:24 AM HEAVY MOBILE EQUIPMENT REPAIRER Aysuh Galvez MD LAB BLOOD ORDERABLES Final Result Performing Organization Address City/[facility] Co de Phone Number [facility] [place] [place] [address] * (ABNORMAL) POCT glucose (01/23/2024 9:19 PM HEAVY MOBILE EQUIPMENT REPAIRER) Glucose, POC 215(H) 70 - 199 mg/dL Blood 01/23/2024 9:19 PM HEAVY MOBILE EQUIPMENT REPAIRER 01/23/2024 9:19 PM HEAVY MOBILE EQUIPMENT REPAIRER Ayush Galvez MD LAB POCT ORDERABLES - DEVIC E Final Result Performing Organization Address [facility] Co de Phone Number [facility] [place] [address] * (ABNORMAL) POCT glucose (01/23/2024 5:44 PM HEAVY MOBILE EQUIPMENT REPAIRER) Glucose, POC 232(H) 70 - 199 mg/dL Blood 01/23/2024 5:44 PM HEAVY MOBILE EQUIPMENT REPAIRER 01/23/2024 5:44 PM HEAVY MOBILE EQUIPMENT REPAIRER Ayush Galvez MD LAB POCT ORDERABLES - DEVIC E Final Result Performing Organization Address [facility] Co de Phone Number [facility] [place] [address] * (ABNORMAL) POCT glucose (01/23/2024 12:11 PM HEAVY MOBILE EQUIPMENT REPAIRER) Glucose, POC 217(H) 70 - 199 mg/dL Blood 01/23/2024 12:1 1 PM HEAVY MOBILE EQUIPMENT REPAIRER 01/23/2024 12:11 PM HEAVY MOBILE EQUIPMENT REPAIRER Ayush Galvez MD LAB POCT ORDERABLES - DEVIC E Final Result Performing Organization Address [facility] de Phone Number [facility] [place] [place] [address] * (ABNORMAL) POCT glucose (01/23/2024 8:18 AM HEAVY MOBILE EQUIPMENT REPAIRER) Glucose, POC 202(H) 70 - 199 mg/dL Blood 01/23/2024 8:18 AM HEAVY MOBILE EQUIPMENT REPAIRER 01/23/2024 8:18 AM HEAVY MOBILE EQUIPMENT REPAIRER Ayush Galvez MD LAB POCT ORDERABLES - DEVIC E Final Result Performing Organization Address [facility] Phone Number [facility] [place] [address] * (ABNORMAL) Troponin I high-sensitivity (01/23/2024 6:12 AM HEAVY MOBILE EQUIPMENT REPAIRER) Pathologist [facility] Trop I hs 1,204(C) <=35 ng/L Comment: Previous critical value noted within 48 hours ago. Interpretive Data For further hscTnI resources including the diagnostic algorithm and an aid in interpretation, copy and paste this link: [email or web address].testcatalog.org/show/[email or web address] Current Interpretive Data last revised 2019. Blood 01/23/2024 6:12 AM HEAVY MOBILE EQUIPMENT REPAIRER 01/23/2024 6:31 AM HEAVY MOBILE EQUIPMENT REPAIRER Ayush Galvez MD LAB BLOOD ORDERABLES Final Result Performing Organization Address [facility] de Phone Number [facility] [place] [address] * (ABNORMAL) eGFR (01/23/2024 2:42 AM HEAVY MOBILE EQUIPMENT REPAIRER) Pathologist [facility] eGFR 11(L) >=60 mL/min/1. 73 m2 Comment: Interpretive Data Reference Interval Normal >/= 90 mL/min/1.73m2 Mildly decreased* 60 - 89 mL/min/1.73m2 Mildly to moderately decreased 45 - 59 mL/min/1.73m2 Moderately to severely decreased 30 - 44 mL/min/1.73m2 Severely decreased 15 - 29 mL/min/1.73m2 Kidney Failure < 15 mL/min/1.73m2 *Relative to young adult level Estimated glomerular filtration rate is determined by the 2020 CKD-EPI equation recommended by the National Kid[employer] (A Unifying Approach to GFR Estimation: Recommendations of the NKF-ASK Task Force on Reassessing the Inclusion of Race in Diagnosing Kidney Disease, JASN 2020). The CKD-EPI equation should not be used for patients with unstable renal function and has not been validated in children and those over 70. Current interpretive data was last reviewed 2020. Blood 01/23/2024 2:42 AM HEAVY MOBILE EQUIPMENT REPAIRER 01/23/2024 3:02 AM HEAVY MOBILE EQUIPMENT REPAIRER us Ayush Galvez MD LAB BLOOD ORDERABLES Final Result [facility] [place] [address] * (ABNORMAL) Differential, auto (01/23/2024 2:42 AM HEAVY MOBILE EQUIPMENT REPAIRER) [facility] Neutrophil abs 6.7(H) 1.5 - 6.5 K/cumm Imm gran abs 0.1 0.0 - 0.1 K/cumm [facility] Lymphocyte abs 0.1(L) 0.8 - 3.3 K/cumm [facility] Monocyte abs 0.1(L) 0.2 - 0.8 K/cumm [facility] Eosinophil abs 0.0 0.0 - 0.5 K/cumm [facility] Basophil abs 0.0 0.0 - 0.1 K/cumm [facility] Neutrophil pct 96.4 % [facility] Comment: Interpretive Data Percent cell count reference ranges are not reported, since discordance with absolute values may lead to misinterpretation of CBC data. Current Interpretive Data was last revised on 2017. Imm gran pct 0.7 % [facility] Comment: Interpretive Data Percent cell count reference ranges are not reported, since discordance with absolute values may lead to misinterpretation of CBC data. Current Interpretive Data was last revised on 2017. Lymphocyte pct 0.9 % [facility] Comment: Interpretive Data Percent cell count reference ranges are not reported, since discordance with absolute values may lead to misinterpretation of CBC data. Current Interpretive Data was last revised on 2017. Monocyte pct 2.0 % [facility] Comment: Interpretive Data Percent cell count reference ranges are not reported, since discordance with absolute values may lead to misinterpretation of CBC data. Current Interpretive Data was last revised on 2017. Eosinophil pct 0.0 % [facility] Comment: Interpretive Data Percent cell count reference ranges are not reported, since discordance with absolute values may lead to misinterpretation of CBC data. Current Interpretive Data was last revised on 2017. Basophil pct 0.0 % [facility] Comment: Interpretive Data Percent cell count reference ranges are not reported, since discordance with absolute values may lead to misinterpretation of CBC data. Current Interpretive Data was last revised on 2017. Blood 01/23/2024 2:42 AM HEAVY MOBILE EQUIPMENT REPAIRER 01/23/2024 3:02 AM HEAVY MOBILE EQUIPMENT REPAIRER Ayush Galvez MD LAB BLOOD ORDERABLES Final Result [facility] [place] [address] * Tacrolimus level trough (01/23/2024 2:42 AM HEAVY MOBILE EQUIPMENT REPAIRER) Tacrolimus trough 7.8 ng/mL Comment: Interpretive Data Testing performed by liquid chromatography-tandem mass spectrometry. Therapeutic concentrations vary depending on type of transplanted organ and time elapsed since transplant. Typical trough concentrations range from 5-15 ng/mL. This test was developed and its performance characteristics determined by the [facility] consistent with CLIA requirements. This test has not been cleared or approved by the US Food and Drug administration. Current interpretive data last reviewed 2019. Blood 01/23/2024 2:42 AM HEAVY MOBILE EQUIPMENT REPAIRER 01/23/2024 3:02 AM HEAVY MOBILE EQUIPMENT REPAIRER Ayush Galvez MD LAB BLOOD ORDERABLES Final Result Performing Organization Address [facility] Co de Phone Number [facility] [place] [address] * (ABNORMAL) CBC with auto differential (01/23/2024 2:42 AM HEAVY MOBILE EQUIPMENT REPAIRER) Pathologist [facility] WBC 7.0 3.8 - 9.9 K/cumm Hgb 8.8(L) 13.0 - 17.5 g/dL [facility] Hct 26.4(L) 38.9 - 50.3 % [facility] Plt 89(L) 150 - 400 K/cumm [facility] MPV 11.1 9.1 - 12.3 fL [facility] RBC 2.77(L) 4.30 - 5.80 M/cumm [facility] MCV 95.3 81.3 - 96.4 fL [facility] MCH 31.8 27.1 - 33.3 pg [facility] MCHC 33.3 32.3 - 35.7 g/dL [facility] RDW CV 18.2(H) 11.1 - 14.9 % [facility] RDW SD 63.3(H) 35.7 - 48.1 fL [facility] NRBC abs 0.00 0.00 - 0.01 K/cumm [facility] Blood 01/23/2024 2:42 AM HEAVY MOBILE EQUIPMENT REPAIRER 01/23/2024 3:02 AM HEAVY MOBILE EQUIPMENT REPAIRER Ayush Galvez MD LAB BLOOD ORDERABLES Final Result Performing Organization Address City/[facility]/ZIP Co de Phone Number [facility] [place] [address] * Magnesium (01/23/2024 2:42 AM HEAVY MOBILE EQUIPMENT REPAIRER) Magnesium 2.5 1.4 - 2.5 mg/dL Blood 01/23/2024 2:42 AM HEAVY MOBILE EQUIPMENT REPAIRER 01/23/2024 3:02 AM HEAVY MOBILE EQUIPMENT REPAIRER Ayush Galvez MD LAB BLOOD ORDERABLES Final Result [facility] [place] [address] * (ABNORMAL) Renal function panel (01/23/2024 2:42 AM HEAVY MOBILE EQUIPMENT REPAIRER) Pathologist [facility] Sodium 135 135 - 145 mmol/L Potassium, pl 4.7 3.3 - 4.9 mmol/L [facility] Chloride 95(L) 97 - 110 mmol/L [facility] CO2 26 22 - 32 mmol/L [facility] Anion gap 14 2 - 15 mmol/L [facility] BUN 46(H) 6 - 25 mg/dL [facility] Creatinine 5.52(H) 0.80 - 1.30 mg/dL [facility] Glucose 178 70 - 199 mg/dL [facility] Comment: Interpretive Data Fasting glucose >/= 126 mg/dl is diagnostic for diabetes. Fasting is defined as no caloric intake for at least 8 hours. Fasting glucose between 100 mg/dl to 125 mg/dl is diagnostic of prediabetes. In a patient with classic symptoms of hyperglycemia or hyperglycemic crisis, a random glucose >/= 200 mg/dl is diagnostic for diabetes. In the absence of unequivocal hyperglycemia, results should be confirmed by repeat testing. The classification and Diagnosis of Diabetes Diabetes Care 2021; 46: S19-S40. Current interpretive data was last revised 2022. Calcium 9.1 8.5 - 10.3 mg/dL [facility] Phosphorus, pl 7.8(H) 2.3 - 4.5 mg/dL [facility] Albumin 3.3(L) 3.5 - 5.0 g/dL [facility] Blood 01/23/2024 2:42 AM HEAVY MOBILE EQUIPMENT REPAIRER 01/23/2024 3:02 AM HEAVY MOBILE EQUIPMENT REPAIRER Ayush Galvez MD LAB BLOOD ORDERABLES Final Result Performing Organization Address [facility] [place] [address] * (ABNORMAL) Troponin I high-sensitivity (01/23/2024 2:41 AM HEAVY MOBILE EQUIPMENT REPAIRER) Pathologist [facility] Trop I hs 1,365(C) <=35 ng/L Comment: Previous critical value noted within 48 hours ago. Interpretive Data For further hscTnI resources including the diagnostic algorithm and an aid in interpretation, copy and paste this link: [email or web address].[email or web address]/show/[email or web address] Current Interpretive Data last revised 2019. Blood 01/23/2024 2:41 AM HEAVY MOBILE EQUIPMENT REPAIRER 01/23/2024 3:14 AM HEAVY MOBILE EQUIPMENT REPAIRER Ayush Galvez MD LAB BLOOD ORDERABLES Final Result Performing Organization Address [facility] [place] [address] * ECG 12 lead (01/23/2024 1:02 AM HEAVY MOBILE EQUIPMENT REPAIRER) Pathologist [facility] Ventricular Rate EKG/Min 71 BPM [facility] Atrial Rate 250 BPM [facility] QRS-Interval (MSEC) 134 ms [facility] QT-Interval (MSEC) 436 ms [facility] QTc 473 ms [facility] R [place] 8 degrees [facility] T [place] 248 degrees [facility] Diagnosis Atrial fibrillation Non-specific intra-ventricula r conduction block T wave abnormality, consider inferolateral ischemia Abnormal ECG When compared with ECG of 22-JAN-2024 15:39, (unconfirmed) No significant change was found Confirmed by JENNIFER BYRD M.D ([id number]) on 01/25/2024 3:00:07 PM [facility] 01/23/2024 1:02 AM HEAVY MOBILE EQUIPMENT REPAIRER 01/25/2024 3:00 PM HEAVY MOBILE EQUIPMENT REPAIRER Ayush Galvez MD ECG ORDERABLES Final Resul t Performing Organization Address City/[facility] Co de Phone Number [facility] * (ABNORMAL) Troponin I high-sensitivity (01/22/2024 11:14 PM HEAVY MOBILE EQUIPMENT REPAIRER) Trop I hs 1,127(C) <=35 ng/L Comment: Previous critical value noted within 48 hours ago. Interpretive Data For further hscTnI resources including the diagnostic algorithm and an aid in interpretation, copy and paste this link: [email or web address]/[email or web address] Current Interpretive Data last revised 2019. Blood 01/22/2024 11:1 4 PM HEAVY MOBILE EQUIPMENT REPAIRER 01/22/2024 11:57 PM HEAVY MOBILE EQUIPMENT REPAIRER Ayush Galvez MD LAB BLOOD ORDERABLES Final Result Performing Organization Address [facility] Co de Phone Number [facility] [place] [address] * (ABNORMAL) Troponin I high-sensitivity (01/22/2024 11:14 PM HEAVY MOBILE EQUIPMENT REPAIRER) Trop I hs 1,220(C) <=35 ng/L Comment: Previous critical value noted within 48 hours ago. Interpretive Data For further hscTnI resources including the diagnostic algorithm and an aid in interpretation, copy and paste this link: [email or web address]/[email or web address] Current Interpretive Data last revised 2019. Blood 01/22/2024 11:1 4 PM HEAVY MOBILE EQUIPMENT REPAIRER 01/22/2024 11:56 PM HEAVY MOBILE EQUIPMENT REPAIRER Ayush Galvez MD LAB BLOOD ORDERABLES Final Result Performing Organization Address [facility] Co de Phone Number [facility] [place] [address] * (ABNORMAL) Differential, auto (01/22/2024 11:14 PM HEAVY MOBILE EQUIPMENT REPAIRER) Neutrophil abs 7.1(H) 1.5 - 6.5 K/cumm Imm gran abs 0.0 0.0 - 0.1 K/cumm [facility] Lymphocyte abs 0.0(L) 0.8 - 3.3 K/cumm [facility] Monocyte abs 0.2 0.2 - 0.8 K/cumm [facility] Eosinophil abs 0.0 0.0 - 0.5 K/cumm [facility] Basophil abs 0.0 0.0 - 0.1 K/cumm [facility] Neutrophil pct 96.8 % [facility] Comment: Interpretive Data Percent cell count reference ranges are not reported, since discordance with absolute values may lead to misinterpretation of CBC data. Current Interpretive Data was last revised on 2017. Imm gran pct 0.5 % [facility] Comment: Interpretive Data Percent cell count reference ranges are not reported, since discordance with absolute values may lead to misinterpretation of CBC data. Current Interpretive Data was last revised on 2017. Lymphocyte pct 0.5 % [facility] Comment: Interpretive Data Percent cell count reference ranges are not reported, since discordance with absolute values may lead to misinterpretation of CBC data. Current Interpretive Data was last revised on 2017. Monocyte pct 2.2 % [facility] Comment: Interpretive Data Percent cell count reference ranges are not reported, since discordance with absolute values may lead to misinterpretation of CBC data. Current Interpretive Data was last revised on 2017. Eosinophil pct 0.0 % [facility] Comment: Interpretive Data Percent cell count reference ranges are not reported, since discordance with absolute values may lead to misinterpretation of CBC data. Current Interpretive Data was last revised on 2017. Basophil pct 0.0 % [facility] Comment: Interpretive Data Percent cell count reference ranges are not reported, since discordance with absolute values may lead to misinterpretation of CBC data. Current Interpretive Data was last revised on 2017. Blood 01/22/2024 11:1 4 PM HEAVY MOBILE EQUIPMENT REPAIRER 01/22/2024 11:56 PM HEAVY MOBILE EQUIPMENT REPAIRER Larry Travis MD LAB BLOOD ORDERABLE S Final Result Performing Organization Address [facility] Co de Phone Number [facility] [place] [address] * Tacrolimus level trough (01/22/2024 11:14 PM HEAVY MOBILE EQUIPMENT REPAIRER) Pathologist [facility] Tacrolimus trough 11.3 ng/mL Comment: reviewed Interpretive Data Testing performed by liquid chromatography-tandem mass spectrometry. Therapeutic concentrations vary depending on type of transplanted organ and time elapsed since transplant. Typical trough concentrations range from 5-15 ng/mL. This test was developed and its performance characteristics determined by the [facility] consistent with CLIA requirements. This test has not been cleared or approved by the US Food and Drug administration. Current interpretive data last reviewed 2019. Blood 01/22/2024 11:1 4 PM HEAVY MOBILE EQUIPMENT REPAIRER 01/22/2024 11:57 PM HEAVY MOBILE EQUIPMENT REPAIRER Ayush Galvez MD LAB BLOOD ORDERABLES Final Result Performing Organization Address [facility] Co de Phone Number LINDA [facility] [place] [address] * (ABNORMAL) CBC with auto differential (01/22/2024 11:14 PM HEAVY MOBILE EQUIPMENT REPAIRER) [facility] WBC 7.4 3.8 - 9.9 K/cumm Hgb 8.5(L) 13.0 - 17.5 g/dL [facility] Hct 25.8(L) 38.9 - 50.3 % [facility] Plt 83(L) 150 - 400 K/cumm [facility] MPV 10.5 9.1 - 12.3 fL [facility] RBC 2.69(L) 4.30 - 5.80 M/cumm [facility] MCV 95.9 81.3 - 96.4 fL [facility] MCH 31.6 27.1 - 33.3 pg [facility] MCHC 32.9 32.3 - 35.7 g/dL [facility] RDW CV 17.6(H) 11.1 - 14.9 % [facility] RDW SD 61.2(H) 35.7 - 48.1 fL [facility] NRBC abs 0.00 0.00 - 0.01 K/cumm [facility] Blood 01/22/2024 11:1 4 PM HEAVY MOBILE EQUIPMENT REPAIRER 01/22/2024 11:56 PM HEAVY MOBILE EQUIPMENT REPAIRER Aysuh Galvez MD LAB BLOOD ORDERABLES Final Result [facility] [place] [address] * Type and screen (01/22/2024 11:14 PM HEAVY MOBILE EQUIPMENT REPAIRER) ABO Rh O Negative [place], indirect Negative [facility] Blood 01/22/2024 11:1 4 PM HEAVY MOBILE EQUIPMENT REPAIRER 01/23/2024 12:05 AM HEAVY MOBILE EQUIPMENT REPAIRER Narrative [facility] - 01/23/2024 1:02 AM HEAVY MOBILE EQUIPMENT REPAIRER Has the patient had Daratumumab or Isatuximab in the past 6 months?->Unknown Ayush Galvez MD LAB BLOOD BANK TEST ORDERAB LES Final Result Performing Organization Address [facility] Co de Phone Number [facility] [place] [address] * Transfuse RBC (01/22/2024 9:29 PM HEAVY MOBILE EQUIPMENT REPAIRER) Blood Ayush Galvez MD BLOOD TRANSFUSION ORDERABLE S Final Result Performing Organization Address City/[facility]/ZIP Co de Phone Number [facility] [place] [address] * XR Chest 1 View (01/22/2024 8:41 PM HEAVY MOBILE EQUIPMENT REPAIRER) Anatomical Region Laterality Modality Body, Chest N/A Computed Radiogr aphy 01/23/2024 7:41 AM HEAVY MOBILE EQUIPMENT REPAIRER Impressions 01/23/2024 7:52 AM HEAVY MOBILE EQUIPMENT REPAIRER Comparison is made to chest radiograph dated 01/20/2024. Cervical spinal instrumentation is place. Mediastinal plates are aligned and intact. Right internal jugular central venous catheter with tip projecting over the superior vena cava. Cardiomediastinal silhouette is enlarged, unchanged. No pleural effusion or pneumothorax. No pulmonary edema. Dictated by: Natasha Browne MD, PhD The radiology attending physician has personally reviewed this study, and had reviewed and/or edited this written report and agrees with it. Electronically signed by: Erinn Morataya M.D. Narrative 01/23/2024 7:52 AM HEAVY MOBILE EQUIPMENT REPAIRER EXAMINATION: 1 view chest radiograph Procedure Note Erinn Morataya MD - 01/23/2024 EXAMINATION: 1 view chest radiograph IMPRESSION: Comparison is made to chest radiograph dated 01/20/2024. Cervical spinal instrumentation is place. Mediastinal plates are aligned and intact. Right internal jugular central venous catheter with tip projecting over the superior vena cava. Cardiomediastinal silhouette is enlarged, unchanged. No pleural effusion or pneumothorax. No pulmonary edema. Dictated by: Natasha Browne MD, PhD The radiology attending physician has personally reviewed this study, and had reviewed and/or edited this written report and agrees with it. Electronically signed by: Erinn Morataya M.D. Ayush Galvez MD IMG XR PROCEDURES Final Res ult * POCT glucose (01/22/2024 8:07 PM HEAVY MOBILE EQUIPMENT REPAIRER) [facility] Signature Glucose, POC 163 70 - 199 mg/dL Blood 01/22/2024 8:07 PM HEAVY MOBILE EQUIPMENT REPAIRER 01/22/2024 8:07 PM HEAVY MOBILE EQUIPMENT REPAIRER Ayush Galvez MD LAB POCT ORDERABLES - DEVIC E Final Result [facility] [place] [address] * POCT glucose (01/22/2024 6:42 PM HEAVY MOBILE EQUIPMENT REPAIRER) [facility] Glucose, POC 173 70 - 199 mg/dL Blood 01/22/2024 6:42 PM HEAVY MOBILE EQUIPMENT REPAIRER 01/22/2024 6:42 PM HEAVY MOBILE EQUIPMENT REPAIRER Ayush Galvez MD LAB POCT ORDERABLES - DEVIC E Final Result Performing Organization Address [facility]/ZIP Co de Phone Number [facility] [place] [address] * (ABNORMAL) Troponin I high-sensitivity 6-hour (01/22/2024 6:40 PM HEAVY MOBILE EQUIPMENT REPAIRER) [facility] Trop I hs 842(C) <=35 ng/L Comment: Previous critical value noted within 48 hours ago. Interpretive Data For further hscTnI resources including the diagnostic algorithm and an aid in interpretation, copy and paste this link: [email or web address].testcatalog.org/show/[email or web address] Current Interpretive Data last revised 2019. Trop I hs pct delta 46(C) % [facility] Comment:Previous critical va lue noted within 48 hours ago. Trop I hs interp Significa nt(C) [facility] Comment:Previous critical va lue noted within 48 hours ago. Blood 01/22/2024 6:40 PM HEAVY MOBILE EQUIPMENT REPAIRER 01/22/2024 6:54 PM HEAVY MOBILE EQUIPMENT REPAIRER Sushma Chino MD LAB BLOOD ORDERABLES Final Resu lt Performing Organization Address City/[facility]/ZIP Co de Phone Number [facility] [place] [address] * TRANSTHORACIC ECHO (TTE) COMPLETE W DOPPLER/CF W CONTRAST (01/22/2024 5:31 PM HEAVY MOBILE EQUIPMENT REPAIRER) [facility] LV EF 45 % CARDIOREPORT Anatomical Region Laterality Modality Ultrasound 01/22/2024 4:15 PM HEAVY MOBILE EQUIPMENT REPAIRER Narrative 01/22/2024 5:57 PM HEAVY MOBILE EQUIPMENT REPAIRER Patient name: Ramone Coleman Date of test: 01/22/2024 Type of test: TTE w/Doppler Hospital #: [id number] Date of : 1960 (M) Roll Table Operator: Hamida Wilkins RDCS Referring Physician: AYUSH GALVEZ MD Contrast Agent: 0.9 ml Optison Administered, (2.1 ml wasted). Contrast Administered by: SAURAV [id number] Supervised/Interpreted by: Gamaliel Etienne MD Diagnosis: Location: [facility] Reason for test: [id number] RI (NSTEMI) MV Structure: Normal, MV Motion: Normal, Mitral Annulus: moderately calcified AV Structure: tricuspid and is nodular thickening, AV Motion: Normal Aotic root: atherosclerotic, TM: Normal, PV: Normal Valvular Vegetations: none seen, Mass/Thrombi: none seen RA: Normal Measurements: M-Mode Normal Aotic Root: <3.8 LA: <4.0 RV: <2.8 LV(ED): <5.7 LV(ES): Variable 2D Linear Normal Aotic Root: 3.7 cm <4.0 Ao Indexed: 1.4 cm/M2 <2.0 LA: <4.0 RV: 4.3 cm <4.2 LV(ED): 6.0 cm <5.9 LV(ES): 4.6 cm <4.0 2D Vol. Normal Indexed Indexed Normal RA: 73.0 ml 27.9 ml/M2 11-39 LA: 94.0 ml 36.0 ml/M2 16-34 RV: <12.7 LV(ED): 113.0 ml 62-150 43.2 ml/M2 <75 LV(ES): 21-61 <32 3D Vol. Indexed Normal LV(ED): <75 LV(ES): <32 LV EF: 45 % (Normal: >=52%) LV Septum: 1.4 cm (Normal: <1.0 cm) Wall Motion Scoring (1=Normal 2=Hypo 3=Akinetic 4=Dyskin./Aneurysm 0=Not visualized) Parasternal Long [place]:MAS=2 BAS=2 MIL=2 HARINDER=2 Parasternal Short [place]:MAS=2 MIS=2 RI=3 MIL=2 MAL=2 MA=2 Apical 4 Chambers:=2 MIS=2 BIS=2 BAL=2 MAL=2 AL=2 AC=2 Apical 2 Chambers:AI=2 RI=3 BI=2 BA=2 MA=2 AA=2 AC=2 LV Global Longitudinal Strain: RV Global Longitudinal Strain: LV Function: Mild Global reduction in LV Ejection Fraction (EF= 41-51%) RV Function: mild to moderate global hypokinesis Septal Motion: Pericardial Effusion: minimal Atrial Septum: Normal DOPPLER/COLOR FLOW DOPPLER RESULTS: Diastolic Function: indeterminate Tricuspid Valve: mild to mod TR Pulmonic Valve: Mild KS AV Regurgitation: No AR seen AV Stenosis: no AV Area: cm2 AV Pressure Gradient (mmHg): Mean: 6, Peak:11 MV Regurgitation: Mild MR MV Stenosis: no MS MV Area: cm2 MV Pressure Gradient (mmHg): Mean: 0 MV ERO: cm Regurg. Vol.: ml/beat Regurg. Frac.: % PA Pressure: 30-35 mmHg DOPPLER/COLOR FOLOW DOPPLER COMMENTS: No AR seen, Mild MR, no , no MS, mild to mod TR, Mild KS. Diastolic function: indeterminate. LVOT VTI 9.9 cm CONTRAST: 0.9 ml Optison Administered, (2.1 ml wasted). SUMMARY: AF/MVR. Normal LV size with moderate LVH, mild global hypokinesis, inferior akinesis, and overall LVEF 45%, Indeterminate diastolic function due to rhythm. Borderline RVE with mild to moderate global RV dysfunction. Unable to reliably assess LV and RV strain due to image quality. Atherosclerotic aortic root. Moderate LAE. Upper normal RA. Dilated IVC with preserved inspiratory collapse. Moderate MVAC with mild calcific MS, mean gradient 4 mm Hg, and mild MR. Mild to moderate TR. Mild KS. Est. PASP 30-35 mm Hg. Minimal pericardial effusion. Compared with 10/29/20, there has been a significant decrease in LV function. Confirmed on 01/22/2024 - 17:57:22 by Gamaliel Etienne MD By signing this report, the attending pail tester certifies that he or she has personally supervised and interpreted the echocardiogram and has reviewed and or edited and agrees with the written comments contained within the report. Procedure Note Gamaliel Etienne MD - 01/22/2024 Patient name: Ramone Coleman Date of test: 01/22/2024 Type of test: TTE w/Doppler [facility] #: 0 Date of : 1960 (M) Roll Table Operator: Hamida Wilkins RDCS Referring Physician: AYUSH GALVEZ MD Contrast Agent: 0.9 ml Optison Administered, (2.1 ml wasted). Contrast Administered by: RN [id number] Supervised/Interpreted by: Gamaliel Etienne MD Diagnosis: Location: [facility] Reason for test: [id number] RI (NSTEMI) MV Structure: Normal, MV Motion: Normal, Mitral Annulus: moderately calcified AV Structure: tricuspid and is nodular thickening, AV Motion: Normal Aotic root: atherosclerotic, TM: Normal, PV: Normal Valvular Vegetations: none seen, Mass/Thrombi: none seen RA: Normal Measurements: M-Mode Normal Aotic Root: <3.8 LA: <4.0 RV: <2.8 LV(ED): <5.7 LV(ES): Variable 2D Linear Normal Aotic Root: 3.7 cm <4.0 Ao Indexed: 1.4 cm/M2 <2.0 LA: <4.0 RV: 4.3 cm <4.2 LV(ED): 6.0 cm <5.9 LV(ES): 4.6 cm <4.0 2D Vol. Normal Indexed Indexed Normal RA: 73.0 ml 27.9 ml/M2 11-39 LA: 94.0 ml 36.0 ml/M2 16-34 RV: <12.7 LV(ED): 113.0 ml 62-150 43.2 ml/M2 <75 LV(ES): 21-61 <32 3D Vol. Indexed Normal LV(ED): <75 LV(ES): <32 LV EF: 45 % (Normal: >=52%) LV Septum: 1.4 cm (Normal: <1.0 cm) Wall Motion Scoring (1=Normal 2=Hypo 3=Akinetic 4=Dyskin./Aneurysm 0=Not visualized) Parasternal Long [place]:MAS=2 BAS=2 MIL=2 HARINDER=2 Parasternal Short [place]:MAS=2 MIS=2 RI=3 MIL=2 MAL=2 MA=2 Apical 4 Chambers:=2 MIS=2 BIS=2 BAL=2 MAL=2 AL=2 AC=2 Apical 2 Chambers:AI=2 RI=3 BI=2 BA=2 MA=2 AA=2 AC=2 LV Global Longitudinal Strain: RV Global Longitudinal Strain: LV Function: Mild Global reduction in LV Ejection Fraction (EF= 41-51%) RV Function: mild to moderate global hypokinesis Septal Motion: Pericardial Effusion: minimal Atrial Septum: Normal DOPPLER/COLOR FLOW DOPPLER RESULTS: Diastolic Function: indeterminate Tricuspid Valve: mild to mod TR Pulmonic Valve: Mild KS AV Regurgitation: No AR seen AV Stenosis: no AV Area: cm2 AV Pressure Gradient (mmHg): Mean: 6, Peak:11 MV Regurgitation: Mild MR MV Stenosis: no MS MV Area: cm2 MV Pressure Gradient (mmHg): Mean: 0 MV ERO: cm Regurg. Vol.: ml/beat Regurg. Frac.: % PA Pressure: 30-35 mmHg DOPPLER/COLOR FOLOW DOPPLER COMMENTS: No AR seen, Mild MR, no , no MS, mild to mod TR, Mild KS. Diastolic function: indeterminate. LVOT VTI 9.9 cm CONTRAST: 0.9 ml Optison Administered, (2.1 ml wasted). SUMMARY: AF/MVR. Normal LV size with moderate LVH, mild global hypokinesis, inferior akinesis, and overall LVEF 45%, Indeterminate diastolic function due to rhythm. Borderline RVE with mild to moderate global RV dysfunction. Unable to reliably assess LV and RV strain due to image quality. Atherosclerotic aortic root. Moderate LAE. Upper normal RA. Dilated IVC with preserved inspiratory collapse. Moderate MVAC with mild calcific MS, mean gradient 4 mm Hg, and mild MR. Mild to moderate TR. Mild KS. Est. PASP 30-35 mm Hg. Minimal pericardial effusion. Compared with 10/29/20, there has been a significant decrease in LV function. Confirmed on 01/22/2024 - 17:57:22 by Gamaliel Etienne MD By signing this report, the attending pail tester certifies that he or she has personally supervised and interpreted the echocardiogram and has reviewed and or edited and agrees with the written comments contained within the report. us Ayush Galvez MD CV ECHO PROCEDURES Final Re sult * (ABNORMAL) Troponin I high-sensitivity 4-hour (01/22/2024 4:14 PM HEAVY MOBILE EQUIPMENT REPAIRER) Trop I hs 738(C) <=35 ng/L Comment: Previous critical value noted within 48 hours ago. Interpretive Data For further [facility] resources including the diagnostic algorithm and an aid in interpretation, copy and paste this link: [email or web address].[email or web address]/show/[email or web address] Current Interpretive Data last revised 2019. Trop I hs pct delta 28(C) % [facility] Comment:Previous critical va lue noted within 48 hours ago. Trop I hs interp Significa nt(C) [facility] Comment:Previous critical va lue noted within 48 hours ago. Blood 01/22/2024 4:14 PM HEAVY MOBILE EQUIPMENT REPAIRER 01/22/2024 4:28 PM HEAVY MOBILE EQUIPMENT REPAIRER Sushma Chino MD LAB BLOOD ORDERABLES Final Resu lt Performing Organization Address City/[facility]/ZIP Co de Phone Number [facility] [place] [address] * Type and screen (01/22/2024 4:14 PM HEAVY MOBILE EQUIPMENT REPAIRER) Pathologist [facility] [place], indirect Negative ABO Rh O Negative [facility] Blood 01/22/2024 4:14 PM HEAVY MOBILE EQUIPMENT REPAIRER 01/22/2024 4:25 PM HEAVY MOBILE EQUIPMENT REPAIRER Narrative [facility] - 01/22/2024 5:19 PM HEAVY MOBILE EQUIPMENT REPAIRER Has the patient had Daratumumab or Isatuximab in the past 6 months?->Unknown us Rosalie Velásquez NP LAB BLOOD BANK TEST ORDERAB LES Final Result Performing Organization Address [facility] Co de Phone Number [facility] [place] [address] * ECG 12 lead (01/22/2024 3:39 PM HEAVY MOBILE EQUIPMENT REPAIRER) Ventricular Rate EKG/Min 93 BPM [facility] Atrial Rate 122 BPM [facility] QRS-Interval (MSEC) 134 ms [facility] QT-Interval (MSEC) 408 ms [facility] QTc 507 ms [facility] R [place] 11 degrees [facility] T [place] -33 degrees [facility] Diagnosis Atrial fibrillation Non-specific intra-ventricula r conduction block Nonspecific ST and T wave abnormality Abnormal ECG When compared with ECG of 22-NOV-2024 12:59, (unconfirmed) T wave inversion less evident in Anterolateral leads Confirmed by ERICK ARITA M.D ([id number]) on 01/24/2024 5:47:26 AM [facility] 01/22/2024 3:39 PM HEAVY MOBILE EQUIPMENT REPAIRER 01/24/2024 5:47 AM HEAVY MOBILE EQUIPMENT REPAIRER Monster Harding MD ECG ORDERABLES Final R esult [facility] * (ABNORMAL) CBC without differential (01/22/2024 2:07 PM HEAVY MOBILE EQUIPMENT REPAIRER) [facility] WBC 5.3 3.8 - 9.9 K/cumm Hgb 7.7(L) 13.0 - 17.5 g/dL [facility] Hct 23.1(L) 38.9 - 50.3 % [facility] Plt 75(L) 150 - 400 K/cumm [facility] MPV 10.5 9.1 - 12.3 fL [facility] RBC 2.35(L) 4.30 - 5.80 M/cumm [facility] MCV 98.3(H) 81.3 - 96.4 fL [facility] MCH 32.8 27.1 - 33.3 pg [facility] MCHC 33.3 32.3 - 35.7 g/dL [facility] RDW CV 15.5(H) 11.1 - 14.9 % [facility] RDW SD 54.8(H) 35.7 - 48.1 fL [facility] NRBC abs 0.00 0.00 - 0.01 K/cumm [facility] Blood 01/22/2024 2:07 PM HEAVY MOBILE EQUIPMENT REPAIRER 01/22/2024 2:29 PM HEAVY MOBILE EQUIPMENT REPAIRER us Ayush Galvez MD LAB BLOOD ORDERABLES Final Result Performing Organization Address City/[facility]/ZIP Co de Phone Number [facility] [place] [address] * ECG 12 lead (01/22/2024 12:59 PM HEAVY MOBILE EQUIPMENT REPAIRER) Pathologist [facility] Ventricular Rate EKG/Min 112 BPM [facility] Atrial Rate 120 BPM [facility] QRS-Interval (MSEC) 126 ms [facility] QT-Interval (MSEC) 296 ms [facility] QTc 404 ms [facility] R [place] 8 degrees [facility] T [place] 207 degrees [facility] Diagnosis Atrial fibrillation with rapid ventricular response Non-specific intra-ventricula r conduction block Nonspecific ST and T wave abnormality Abnormal ECG When compared with ECG of 21-JAN-2024 05:17, (unconfirmed) Atrial fibrillation has replaced Sinus rhythm ST now depressed in Anterior leads T wave inversion now evident in Anterolateral leads Confirmed by ERICK ARITA M.D ([id number]) on 01/24/2024 5:44:44 AM [facility] 01/22/2024 12:5 9 PM HEAVY MOBILE EQUIPMENT REPAIRER 01/24/2024 5:44 AM HEAVY MOBILE EQUIPMENT REPAIRER Sushma Chino MD ECG ORDERABLES Final Result [facility] * (ABNORMAL) Troponin I high-sensitivity series (baseline, 2hr, 4hr, 6hr) (01/22/2024 12:18 PM HEAVY MOBILE EQUIPMENT REPAIRER) [facility] Trop I hs 575(C) <=35 ng/L Comment: Interpretive Data For further [facility] resources including the diagnostic algorithm and an aid in interpretation, copy and paste this link: [email or web address]/show/[email or web address] Current Interpretive Data last revised 2019. Blood 01/22/2024 12:1 8 PM HEAVY MOBILE EQUIPMENT REPAIRER 01/22/2024 12:36 PM HEAVY MOBILE EQUIPMENT REPAIRER Sushma Chino MD LAB BLOOD ORDERABLES Final Resu lt [facility] Department [place] [address] * Critical result callback Cardio chemistry (01/22/2024 12:18 PM HEAVY MOBILE EQUIPMENT REPAIRER) Date Notified 20240122 Time Notified 1341 [facility]DA [facility] Test name Braden rob LINDA [facility] Called/Read Back Clarissa Dominguez [facility] Credentials RN LINDA BALLARD Called By CHANDA BALLARD Blood 01/22/2024 12:1 8 PM HEAVY MOBILE EQUIPMENT REPAIRER 01/22/2024 12:36 PM HEAVY MOBILE EQUIPMENT REPAIRER Sushma Chino MD LAB BLOOD ORDERABLES Final Resu lt Performing Organization Address City/[facility]/ZIP Co de Phone Number [facility] [place] [address] * (ABNORMAL) eGFR (01/22/2024 12:18 PM HEAVY MOBILE EQUIPMENT REPAIRER) eGFR 13(L) >=60 mL/min/1. 73 m2 Comment: Interpretive Data Reference Interval Normal >/= 90 mL/min/1.73m2 Mildly decreased* 60 - 89 mL/min/1.73m2 Mildly to moderately decreased 45 - 59 mL/min/1.73m2 Moderately to severely decreased 30 - 44 mL/min/1.73m2 Severely decreased 15 - 29 mL/min/1.73m2 Kidney Failure < 15 mL/min/1.73m2 *Relative to young adult level Estimated glomerular filtration rate is determined by the 2020 CKD-EPI equation recommended by the National Kidney Foundation (A Unifying Approach to GFR Estimation: Recommendations of the NKF-ASK Task Force on Reassessing the Inclusion of Race in Diagnosing Kidney Disease, JASN 2020). The CKD-EPI equation should not be used for patients with unstable renal function and has not been validated in children and those over 70. Current interpretive data was last reviewed 2020. Blood 01/22/2024 12:1 8 PM HEAVY MOBILE EQUIPMENT REPAIRER 01/22/2024 12:36 PM HEAVY MOBILE EQUIPMENT REPAIRER Sushma Chino MD LAB BLOOD ORDERABLES Final Resu lt [facility] [place] [address] * (ABNORMAL) Phosphorus (01/22/2024 12:18 PM HEAVY MOBILE EQUIPMENT REPAIRER) [facility] Phosphorus, pl 5.8(H) 2.3 - 4.5 mg/dL Blood 01/22/2024 12:1 8 PM HEAVY MOBILE EQUIPMENT REPAIRER 01/22/2024 12:36 PM HEAVY MOBILE EQUIPMENT REPAIRER Sushma Chino MD LAB BLOOD ORDERABLES Final Resu lt Performing Organization Address [facility] [place] [address] * Magnesium (01/22/2024 12:18 PM HEAVY MOBILE EQUIPMENT REPAIRER) [facility] Magnesium 1.8 1.4 - 2.5 mg/dL Blood 01/22/2024 12:1 8 PM HEAVY MOBILE EQUIPMENT REPAIRER 01/22/2024 12:36 PM HEAVY MOBILE EQUIPMENT REPAIRER Sushma Chino MD LAB BLOOD ORDERABLES Final Resu lt Performing Organization Address [facility] de Phone Number [facility] [place] [address] * (ABNORMAL) Basic metabolic panel (01/22/2024 12:18 PM HEAVY MOBILE EQUIPMENT REPAIRER) [facility] Sodium 135 135 - 145 mmol/L Potassium, pl 4.0 3.3 - 4.9 mmol/L [facility] Chloride 94(L) 97 - 110 mmol/L [facility] CO2 26 22 - 32 mmol/L [facility] Anion gap 15 2 - 15 mmol/L [facility] BUN 33(H) 6 - 25 mg/dL [facility] Creatinine 4.67(H) 0.80 - 1.30 mg/dL [facility] Glucose 130 70 - 199 mg/dL [facility] Comment: Interpretive Data Fasting glucose >/= 126 mg/dl is diagnostic for diabetes. Fasting is defined as no caloric intake for at least 8 hours. Fasting glucose between 100 mg/dl to 125 mg/dl is diagnostic of prediabetes. In a patient with classic symptoms of hyperglycemia or hyperglycemic crisis, a random glucose >/= 200 mg/dl is diagnostic for diabetes. In the absence of unequivocal hyperglycemia, results should be confirmed by repeat testing. The classification and Diagnosis of Diabetes Diabetes Care 2021; 46: S19-S40. Current interpretive data was last revised 2022. Calcium 8.6 8.5 - 10.3 mg/dL [facility] Blood 01/22/2024 12:1 8 PM HEAVY MOBILE EQUIPMENT REPAIRER 01/22/2024 12:36 PM HEAVY MOBILE EQUIPMENT REPAIRER Sushma Chino MD LAB BLOOD ORDERABLES Final Resu lt Performing Organization Address City/[facility]/ZIP Co de Phone Number [facility] [place] [address] * POCT glucose (01/22/2024 11:35 AM HEAVY MOBILE EQUIPMENT REPAIRER) Glucose, POC 134 70 - 199 mg/dL Blood 01/22/2024 11:3 5 AM HEAVY MOBILE EQUIPMENT REPAIRER 01/22/2024 11:35 AM HEAVY MOBILE EQUIPMENT REPAIRER Ayush Galvez MD LAB POCT ORDERABLES - DEVIC E Final Result Performing Organization Address [facility] Co de Phone Number [facility] [place] [address] * XR Abdomen Ap 1 Vw (01/22/2024 10:29 AM HEAVY MOBILE EQUIPMENT REPAIRER) Anatomical Region Laterality Modality Body, Abdomen N/A Computed Radiogr aphy 01/22/2024 10:3 9 AM HEAVY MOBILE EQUIPMENT REPAIRER Impressions 01/22/2024 11:52 AM HEAVY MOBILE EQUIPMENT REPAIRER A single view of the abdomen is submitted for evaluation. Partially imaged median sternotomy wires. Surgical clips overlie the upper abdomen. Surgical drain and pigtail catheter over the right lower quadrant. Distended loops of air-filled bowel. Vascular calcifications. No unexpected radiopaque foreign bodies. Dictated by: Fadi Garcia M.D. The radiology attending physician has personally reviewed this study, and had reviewed and/or edited this written report and agrees with it. Electronically signed by: Mohsen Vallejo M.D. Narrative 01/22/2024 11:52 AM HEAVY MOBILE EQUIPMENT REPAIRER EXAMINATION: Abdomen, one view. HISTORY: Abdominal closure COMPARISON: CT abdomen pelvis 09/17/2023 Procedure Note Mohsen Vallejo MD - 01/22/2024 EXAMINATION: Abdomen, one view. HISTORY: Abdominal closure COMPARISON: CT abdomen pelvis 09/17/2023 IMPRESSION: A single view of the abdomen is submitted for evaluation. Partially imaged median sternotomy wires. Surgical clips overlie the upper abdomen. Surgical drain and pigtail catheter over the right lower quadrant. Distended loops of air-filled bowel. Vascular calcifications. No unexpected radiopaque foreign bodies. Dictated by: Fadi Garcia M.D. The radiology attending physician has personally reviewed this study, and had reviewed and/or edited this written report and agrees with it. Electronically signed by: Mohsen Vallejo M.D. us Hugo Sousa MD IMG XR PROCEDURES Final Re sult * KS AN ELECTIVE ENDOTRACHEAL AIRWAY, KS AN PROCEDURE PLACEHOLDER (01/22/2024 9:42 AM HEAVY MOBILE EQUIPMENT REPAIRER) Narrative Nisa Patricia CRNA - 01/22/2024 9:42 AM HEAVY MOBILE EQUIPMENT REPAIRER Nisa Patricia CRNA 01/22/2024 9:56 AM Airway Patient location: OR Urgency: elective Indications for airway management: anesthesia Difficult airway: no Staff: Supervising provider: Mathieu Beaver MD Placed by: Other staff: Arash Torres BSN Emergent airway documentation: Risks and benefits discussed: yes Consent obtained: yes Consent given by: patient Airway prep: Preoxygenated: yes Patient position: sniffing Mask difficulty assessment: 2 - vent by mask + OA or adjuvant Spontaneous ventilation during airway: absent Sedation level during airway: GA Final airway details: Final airway type: endotracheal airway Tube type: ETT ETT size: 7.5 mm Technique used for successful ETT placement: video laryngoscopy Devices/Methods used in placement: stylet Insertion site: oral Blade type: Odalis Video blade type: Weir Blade size: 4 Cormack-Lehane (video): grade I - full view of glottis ETT to lips: 23 cm Placement verified by: auscultation and CO2 detection Airway secured with: silk tape Number of attempts: 1 Planned trial extubation: yes us Mathieu Beaver MD ANESTHESIA ORDERA BLES Edited Result - Final * (ABNORMAL) eGFR (01/22/2024 9:02 AM HEAVY MOBILE EQUIPMENT REPAIRER) eGFR 13(L) >=60 mL/min/1. 73 m2 Comment: Interpretive Data Reference Interval Normal >/= 90 mL/min/1.73m2 Mildly decreased* 60 - 89 mL/min/1.73m2 Mildly to moderately decreased 45 - 59 mL/min/1.73m2 Moderately to severely decreased 30 - 44 mL/min/1.73m2 Severely decreased 15 - 29 mL/min/1.73m2 Kidney Failure < 15 mL/min/1.73m2 *Relative to young adult level Estimated glomerular filtration rate is determined by the 2020 CKD-EPI equation recommended by the National Kidney Foundation (A Unifying Approach to GFR Estimation: Recommendations of the NKF-ASK Task Force on Reassessing the Inclusion of Race in Diagnosing Kidney Disease, JASN 2020). The CKD-EPI equation should not be used for patients with unstable renal function and has not been validated in children and those over 70. Current interpretive data was last reviewed 2020. Blood 01/22/2024 9:02 AM HEAVY MOBILE EQUIPMENT REPAIRER 01/22/2024 9:25 AM HEAVY MOBILE EQUIPMENT REPAIRER us Mathieu Hayden MD LAB BLOOD ORDERABLES Final Result [facility] Department [place] [address] * (ABNORMAL) Basic metabolic panel (01/22/2024 9:02 AM HEAVY MOBILE EQUIPMENT REPAIRER) Sodium 134(L) 135 - 145 mmol/L Potassium, pl 4.1 3.3 - 4.9 mmol/L [facility] Chloride 92(L) 97 - 110 mmol/L [facility] CO2 27 22 - 32 mmol/L [facility] Anion gap 15 2 - 15 mmol/L [facility] BUN 32(H) 6 - 25 mg/dL [facility] Creatinine 4.62(H) 0.80 - 1.30 mg/dL [facility] Glucose 168 70 - 199 mg/dL [facility] Comment: Interpretive Data Fasting glucose >/= 126 mg/dl is diagnostic for diabetes. Fasting is defined as no caloric intake for at least 8 hours. Fasting glucose between 100 mg/dl to 125 mg/dl is diagnostic of prediabetes. In a patient with classic symptoms of hyperglycemia or hyperglycemic crisis, a random glucose >/= 200 mg/dl is diagnostic for diabetes. In the absence of unequivocal hyperglycemia, results should be confirmed by repeat testing. The classification and Diagnosis of Diabetes Diabetes Care 202; 46: S19-S40. Current interpretive data was last revised 2022. Calcium 9.2 8.5 - 10.3 mg/dL [facility] Blood 01/22/2024 9:02 AM HEAVY MOBILE EQUIPMENT REPAIRER 01/22/2024 9:25 AM HEAVY MOBILE EQUIPMENT REPAIRER Mathieu Hayden MD LAB BLOOD ORDERABLES Final Result Performing Organization Address [facility] Co de Phone Number [facility] Department [place] [address] * POCT glucose (01/22/2024 9:01 AM HEAVY MOBILE EQUIPMENT REPAIRER) [facility] Glucose, POC 177 70 - 199 mg/dL Blood 01/22/2024 9:01 AM HEAVY MOBILE EQUIPMENT REPAIRER 01/22/2024 9:01 AM HEAVY MOBILE EQUIPMENT REPAIRER Ayush Galvez MD LAB POCT ORDERABLES - DEVIC E Final Result Performing Organization Address [facility]/ZIP Co de Phone Number [facility] [place] [address] * POCT glucose (01/22/2024 8:26 AM HEAVY MOBILE EQUIPMENT REPAIRER) Glucose, POC 154 70 - 199 mg/dL Blood 01/22/2024 8:26 AM HEAVY MOBILE EQUIPMENT REPAIRER 01/22/2024 8:26 AM HEAVY MOBILE EQUIPMENT REPAIRER us Ayush Galvez MD LAB POCT ORDERABLES - DEVIC E Final Result Performing Organization Address City/[facility]/ZIP Co de Phone Number LINDA [facility] [place] [address] * (ABNORMAL) eGFR (01/22/2024 4:58 AM HEAVY MOBILE EQUIPMENT REPAIRER) eGFR 15(L) >=60 mL/min/1. 73 m2 Comment: Interpretive Data Reference Interval Normal >/= 90 mL/min/1.73m2 Mildly decreased* 60 - 89 mL/min/1.73m2 Mildly to moderately decreased 45 - 59 mL/min/1.73m2 Moderately to severely decreased 30 - 44 mL/min/1.73m2 Severely decreased 15 - 29 mL/min/1.73m2 Kidney Failure < 15 mL/min/1.73m2 *Relative to young adult level Estimated glomerular filtration rate is determined by the 2020 CKD-EPI equation recommended by the National Kidney Foundation (A Unifying Approach to GFR Estimation: Recommendations of the NKF-ASK Task Force on Reassessing the Inclusion of Race in Diagnosing Kidney Disease, JASN 2020). The CKD-EPI equation should not be used for patients with unstable renal function and has not been validated in children and those over 70. Current interpretive data was last reviewed 2020. Blood 01/22/2024 4:58 AM HEAVY MOBILE EQUIPMENT REPAIRER 01/22/2024 5:46 AM HEAVY MOBILE EQUIPMENT REPAIRER us Larry Travis MD LAB BLOOD ORDERABLE S Final Result Performing Organization Address City/[facility]/ZIP Co de Phone Number [facility] [place] [address] * (ABNORMAL) Differential, auto (01/22/2024 4:58 AM HEAVY MOBILE EQUIPMENT REPAIRER) Pathologist [facility] Neutrophil abs 5.8 1.5 - 6.5 K/cumm Imm gran abs 0.0 0.0 - 0.1 K/cumm [facility] Lymphocyte abs 0.0(L) 0.8 - 3.3 K/cumm [facility] Monocyte abs 0.2 0.2 - 0.8 K/cumm [facility] Eosinophil abs 0.0 0.0 - 0.5 K/cumm [facility] Basophil abs 0.0 0.0 - 0.1 K/cumm [facility] Neutrophil pct 96.0 % [facility] Comment: Interpretive Data Percent cell count reference ranges are not reported, since discordance with absolute values may lead to misinterpretation of CBC data. Current Interpretive Data was last revised on 2017. Imm gran pct 0.3 % [facility] Comment: Interpretive Data Percent cell count reference ranges are not reported, since discordance with absolute values may lead to misinterpretation of CBC data. Current Interpretive Data was last revised on 2017. Lymphocyte pct 0.7 % [facility] Comment: Interpretive Data Percent cell count reference ranges are not reported, since discordance with absolute values may lead to misinterpretation of CBC data. Current Interpretive Data was last revised on 2017. Monocyte pct 3.0 % [facility] Comment: Interpretive Data Percent cell count reference ranges are not reported, since discordance with absolute values may lead to misinterpretation of CBC data. Current Interpretive Data was last revised on 2017. Eosinophil pct 0.0 % [facility] Comment: Interpretive Data Percent cell count reference ranges are not reported, since discordance with absolute values may lead to misinterpretation of CBC data. Current Interpretive Data was last revised on 2017. Basophil pct 0.0 % [facility] Comment: Interpretive Data Percent cell count reference ranges are not reported, since discordance with absolute values may lead to misinterpretation of CBC data. Current Interpretive Data was last revised on 2017. Blood 01/22/2024 4:58 AM HEAVY MOBILE EQUIPMENT REPAIRER 01/22/2024 5:45 AM HEAVY MOBILE EQUIPMENT REPAIRER Larry Travis MD LAB BLOOD ORDERABLE S Final Result Performing Organization Address [facility] de Phone Number [facility] [place] [address] * Tacrolimus level trough (01/22/2024 4:58 AM HEAVY MOBILE EQUIPMENT REPAIRER) [facility] Tacrolimus trough 4.7 ng/mL Comment: Interpretive Data Testing performed by liquid chromatography-tandem mass spectrometry. Therapeutic concentrations vary depending on type of transplanted organ and time elapsed since transplant. Typical trough concentrations range from 5-15 ng/mL. This test was developed and its performance characteristics determined by the [facility] consistent with CLIA requirements. This test has not been cleared or approved by the US Food and Drug administration. Current interpretive data last reviewed 2019. Blood 01/22/2024 4:58 AM HEAVY MOBILE EQUIPMENT REPAIRER 01/22/2024 5:46 AM HEAVY MOBILE EQUIPMENT REPAIRER Ayush Galvez MD LAB BLOOD ORDERABLES Final Result Performing Organization Address [facility] de Phone Number [facility] [place] [address] * (ABNORMAL) CBC with auto differential (01/22/2024 4:58 AM HEAVY MOBILE EQUIPMENT REPAIRER) [facility] WBC 6.0 3.8 - 9.9 K/cumm Hgb 8.2(L) 13.0 - 17.5 g/dL [facility] Hct 23.8(L) 38.9 - 50.3 % [facility] Plt 79(L) 150 - 400 K/cumm [facility] MPV 10.2 9.1 - 12.3 fL [facility] RBC 2.48(L) 4.30 - 5.80 M/cumm [facility] MCV 96.0 81.3 - 96.4 fL [facility] MCH 33.1 27.1 - 33.3 pg [facility] MCHC 34.5 32.3 - 35.7 g/dL [facility] RDW CV 15.3(H) 11.1 - 14.9 % [facility] RDW SD 53.1(H) 35.7 - 48.1 fL [facility] NRBC abs 0.00 0.00 - 0.01 K/cumm [facility] Blood 01/22/2024 4:58 AM HEAVY MOBILE EQUIPMENT REPAIRER 01/22/2024 5:45 AM HEAVY MOBILE EQUIPMENT REPAIRER Ayush Galvez MD LAB BLOOD ORDERABLES Final Result Performing Organization Address City/[facility]/ZIP Co de Phone Number [facility] [address] * Magnesium (01/22/2024 4:58 AM HEAVY MOBILE EQUIPMENT REPAIRER) Magnesium 2.2 1.4 - 2.5 mg/dL Blood 01/22/2024 4:58 AM HEAVY MOBILE EQUIPMENT REPAIRER 01/22/2024 5:46 AM HEAVY MOBILE EQUIPMENT REPAIRER Ayush Galvez MD LAB BLOOD ORDERABLES Final Result Performing Organization Address [facility] Co de Phone Number [facility] [place] [address] * (ABNORMAL) Lactate dehydrogenase (LD) (01/22/2024 4:58 AM HEAVY MOBILE EQUIPMENT REPAIRER) Lactate dehydrogenase (LDH) 252(H) 100 - 250 Units/L Blood 01/22/2024 4:58 AM HEAVY MOBILE EQUIPMENT REPAIRER 01/22/2024 5:46 AM HEAVY MOBILE EQUIPMENT REPAIRER Ayush Galvez MD LAB BLOOD ORDERABLES Final Result Performing Organization Address City/[facility] Co de Phone Number [facility] [place] [address] * Haptoglobin (01/22/2024 4:58 AM HEAVY MOBILE EQUIPMENT REPAIRER) Haptoglobin 116.0 30.0 - 200.0 mg/dL Blood 01/22/2024 4:58 AM HEAVY MOBILE EQUIPMENT REPAIRER 01/22/2024 5:46 AM HEAVY MOBILE EQUIPMENT REPAIRER Ayush Galvez MD LAB BLOOD ORDERABLES Final Result [facility] [place] [address] * (ABNORMAL) Renal function panel (01/22/2024 4:58 AM HEAVY MOBILE EQUIPMENT REPAIRER) Sodium 134(L) 135 - 145 mmol/L Potassium, pl 4.4 3.3 - 4.9 mmol/L [facility] Chloride 93(L) 97 - 110 mmol/L [facility] CO2 30 22 - 32 mmol/L [facility] Anion gap 11 2 - 15 mmol/L [facility] BUN 29(H) 6 - 25 mg/dL [facility] Creatinine 4.19(H) 0.80 - 1.30 mg/dL [facility] Glucose 125 70 - 199 mg/dL [facility] Comment: Interpretive Data Fasting glucose >/= 126 mg/dl is diagnostic for diabetes. Fasting is defined as no caloric intake for at least 8 hours. Fasting glucose between 100 mg/dl to 125 mg/dl is diagnostic of prediabetes. In a patient with classic symptoms of hyperglycemia or hyperglycemic crisis, a random glucose >/= 200 mg/dl is diagnostic for diabetes. In the absence of unequivocal hyperglycemia, results should be confirmed by repeat testing. The classification and Diagnosis of Diabetes Diabetes Care 202; 46: S19-S40. Current interpretive data was last revised 2022. Calcium 9.2 8.5 - 10.3 mg/dL [facility] Phosphorus, pl 5.6(H) 2.3 - 4.5 mg/dL [facility] Albumin 3.4(L) 3.5 - 5.0 g/dL [facility] Blood 01/22/2024 4:58 AM HEAVY MOBILE EQUIPMENT REPAIRER 01/22/2024 5:46 AM HEAVY MOBILE EQUIPMENT REPAIRER Ayush Galvez MD LAB BLOOD ORDERABLES [place] [address] * (ABNORMAL) POCT glucose (01/21/2024 8:34 PM HEAVY MOBILE EQUIPMENT REPAIRER) Glucose, POC 238(H) 70 - 199 mg/dL Blood 01/21/2024 8:34 PM HEAVY MOBILE EQUIPMENT REPAIRER 01/21/2024 8:34 PM HEAVY MOBILE EQUIPMENT REPAIRER Ayush Galvez MD LAB POCT ORDERABLES - DEVIC E Final Result Performing Organization Address City/[facility]/[place] [address] * (ABNORMAL) POCT glucose (01/21/2024 6:37 PM HEAVY MOBILE EQUIPMENT REPAIRER) [facility] Signature Glucose, POC 202(H) 70 - 199 mg/dL Blood 01/21/2024 6:37 PM HEAVY MOBILE EQUIPMENT REPAIRER 01/21/2024 6:37 PM HEAVY MOBILE EQUIPMENT REPAIRER Ayush Galvez MD LAB POCT ORDERABLES - DEVIC E Final Result Performing Organization Address City/[facility]/[place] [address] * (ABNORMAL) Potassium, whole blood (01/21/2024 4:22 PM HEAVY MOBILE EQUIPMENT REPAIRER) [facility] Potassium, bld 6.0(H) 3.3 - 4.9 mmol/L Blood 01/21/2024 4:22 PM HEAVY MOBILE EQUIPMENT REPAIRER 01/21/2024 4:32 PM HEAVY MOBILE EQUIPMENT REPAIRER us Rosalie Velásquez NP LAB BLOOD [place]AB[place] [address] * (ABNORMAL) CBC without differential (01/21/2024 1:51 PM HEAVY MOBILE EQUIPMENT REPAIRER) WBC 14.5(H) 3.8 - 9.9 K/cumm Hgb 8.5(L) 13.0 - 17.5 g/dL [facility] Hct 25.8(L) 38.9 - 50.3 % [facility] Plt 101(L) 150 - 400 K/cumm [facility] MPV 10.4 9.1 - 12.3 fL [facility] RBC 2.61(L) 4.30 - 5.80 M/cumm [facility] MCV 98.9(H) 81.3 - 96.4 fL [facility] MCH 32.6 27.1 - 33.3 pg [facility] MCHC 32.9 32.3 - 35.7 g/dL [facility] RDW CV 15.6(H) 11.1 - 14.9 % [facility] RDW SD 55.2(H) 35.7 - 48.1 fL [facility] NRBC abs 0.00 0.00 - 0.01 K/cumm [facility] Blood 01/21/2024 1:51 PM HEAVY MOBILE EQUIPMENT REPAIRER 01/21/2024 2:12 PM HEAVY MOBILE EQUIPMENT REPAIRER Susi LEE LAB BLOOD ORDERABLES Final Result Performing Organization Address City/[facility]/ZIP Co de Phone Number [facility] [place] [address] * POCT glucose (01/21/2024 12:26 PM HEAVY MOBILE EQUIPMENT REPAIRER) Pathologist [facility] Glucose, POC 178 70 - 199 mg/dL Blood 01/21/2024 12:2 6 PM HEAVY MOBILE EQUIPMENT REPAIRER 01/21/2024 12:26 PM HEAVY MOBILE EQUIPMENT REPAIRER Ayush Galvez MD LAB POCT ORDERABLES - DEVIC E Final Result Performing Organization Address [facility]/ZIP Co de Phone Number [facility] [place] [address] * [place] AN PROCEDURE PLACEHOLDER (01/21/2024 10:41 AM HEAVY MOBILE EQUIPMENT REPAIRER) Narrative Roscoe Sandhu MD - 01/21/2024 10:41 AM HEAVY MOBILE EQUIPMENT REPAIRER Roscoe Sandhu MD 01/21/2024 10:43 AM Arterial Line Patient location: OR Indication: continuous blood pressure monitoring Staff: Placed by: Anesthesiologist: Roscoe Sandhu MD Procedure prep: Prep solution: chlorhexadine/alcohol Prep: sterile gloves, provider hat/mask and sterile drape Arterial line: Catheter size: 20 gauge Catheter length: 5 cm Catheter type: wire-guided catheter Other catheter type: vygon Seldinger technique: yes Laterality: right Site: radial artery Line secured: tape and Tegaderm Results: good waveform and good blood return Number of attempts: 1 Assessment: Events: patient tolerated procedure well with no complications Additional comments: Ultrasound guided Roscoe Sandhu MD ANESTHESIA ORDERABLES Final Re sult * (ABNORMAL) Potassium (01/21/2024 8:39 AM HEAVY MOBILE EQUIPMENT REPAIRER) Potassium, pl 6.1(H) 3.3 - 4.9 mmol/L Blood 01/21/2024 8:39 AM HEAVY MOBILE EQUIPMENT REPAIRER 01/21/2024 9:10 AM HEAVY MOBILE EQUIPMENT REPAIRER Narrative [facility] - 01/21/2024 9:32 AM HEAVY MOBILE EQUIPMENT REPAIRER Provider to discontinue after two normal results. Ayush Galvez MD LAB BLOOD ORDERABLES Final Result Performing Organization Address [facility] Co de Phone Number [facility] [place] [address] * (ABNORMAL) POCT glucose (01/21/2024 8:10 AM HEAVY MOBILE EQUIPMENT REPAIRER) Glucose, POC 297(H) 70 - 199 mg/dL Blood 01/21/2024 8:10 AM HEAVY MOBILE EQUIPMENT REPAIRER 01/21/2024 8:10 AM HEAVY MOBILE EQUIPMENT REPAIRER Ayush Galvez MD LAB POCT ORDERABLES - DEVIC E Final Result Performing Organization Address City/State/[facility] Co de Phone Number [facility] [place] [address] * (ABNORMAL) POCT glucose (01/21/2024 6:47 AM HEAVY MOBILE EQUIPMENT REPAIRER) Glucose, POC 236(H) 70 - 199 mg/dL Blood 01/21/2024 6:47 AM HEAVY MOBILE EQUIPMENT REPAIRER 01/21/2024 6:47 AM HEAVY MOBILE EQUIPMENT REPAIRER Ayush Galvez MD LAB POCT ORDERABLES - DEVIC E Final Result Performing Organization Address [facility] de Phone Number [facility] [place] [address] * (ABNORMAL) POCT glucose (01/21/2024 5:46 AM HEAVY MOBILE EQUIPMENT REPAIRER) Glucose, POC 234(H) 70 - 199 mg/dL Blood 01/21/2024 5:46 AM HEAVY MOBILE EQUIPMENT REPAIRER 01/21/2024 5:46 AM HEAVY MOBILE EQUIPMENT REPAIRER us Ayush Galvez MD LAB POCT ORDERABLES - DEVIC E Final Result Performing Organization Address [facility] de Phone Number [facility] [place] [address] * (ABNORMAL) Potassium, whole blood (01/21/2024 5:22 AM HEAVY MOBILE EQUIPMENT REPAIRER) Potassium, bld 5.7(H) 3.3 - 4.9 mmol/L Comment:No hemolyse Blood 01/21/2024 5:22 AM HEAVY MOBILE EQUIPMENT REPAIRER 01/21/2024 5:28 AM HEAVY MOBILE EQUIPMENT REPAIRER Ayush Galvez MD LAB BLOOD ORDERABLES Final Result Performing Organization Address [facility] Co de Phone Number [facility] [place] [address] * ECG 12 lead (01/21/2024 5:17 AM HEAVY MOBILE EQUIPMENT REPAIRER) Ventricular Rate EKG/Min 82 BPM [facility] Atrial Rate 82 BPM [facility] KS-Interval (MSEC) 256 ms [facility] QRS-Interval (MSEC) 132 ms [facility] QT-Interval (MSEC) 408 ms [facility] QTc 476 ms [facility] P [place] 71 degrees [facility] R [place] 13 degrees [facility] T [place] -20 degrees [facility] Diagnosis Sinus rhythm with marked sinus arrhythmia with 1st degree A-V block Non-specific intra-ventricu lar conduction block Abnormal ECG When compared with ECG of 17-SEP-2023 08:34, No significant change was found Confirmed by JENNIFER BYRD M.D ([id number]) on 01/22/2024 5:00:18 PM [facility] 01/21/2024 5:17 AM HEAVY MOBILE EQUIPMENT REPAIRER 01/22/2024 5:00 PM HEAVY MOBILE EQUIPMENT REPAIRER us Ayush Galvez MD ECG ORDERABLES Final Resul t [facility] * (ABNORMAL) eGFR (01/21/2024 4:18 AM HEAVY MOBILE EQUIPMENT REPAIRER) Pathologist [facility] eGFR 10(L) >=60 mL/min/1. 73 m2 Comment: Interpretive Data Reference Interval Normal >/= 90 mL/min/1.73m2 Mildly decreased* 60 - 89 mL/min/1.73m2 Mildly to moderately decreased 45 - 59 mL/min/1.73m2 Moderately to severely decreased 30 - 44 mL/min/1.73m2 Severely decreased 15 - 29 mL/min/1.73m2 Kidney Failure < 15 mL/min/1.73m2 *Relative to young adult level Estimated glomerular filtration rate is determined by the 2020 CKD-EPI equation recommended by the National Kidney Foundation (A Unifying Approach to GFR Estimation: Recommendations of the NKF-ASK Task Force on Reassessing the Inclusion of Race in Diagnosing Kidney Disease, JASN 2020). The CKD-EPI equation should not be used for patients with unstable renal function and has not been validated in children and those over 70. Current interpretive data was last reviewed 2020. Blood 01/21/2024 4:18 AM HEAVY MOBILE EQUIPMENT REPAIRER 01/21/2024 4:33 AM HEAVY MOBILE EQUIPMENT REPAIRER us Larry Travis MD LAB BLOOD ORDERABLE S Final Result [facility] [place] [address] * (ABNORMAL) Differential, auto (01/21/2024 4:18 AM HEAVY MOBILE EQUIPMENT REPAIRER) Neutrophil abs 10.2(H) 1.5 - 6.5 K/cumm Imm gran abs 0.0 0.0 - 0.1 K/cumm [facility] Lymphocyte abs 0.0(L) 0.8 - 3.3 K/cumm [facility] Monocyte abs 0.2 0.2 - 0.8 K/cumm [facility] Eosinophil abs 0.0 0.0 - 0.5 K/cumm [facility] Basophil abs 0.0 0.0 - 0.1 K/cumm [facility] Neutrophil pct 97.4 % [facility] Comment: Interpretive Data Percent cell count reference ranges are not reported, since discordance with absolute values may lead to misinterpretation of CBC data. Current Interpretive Data was last revised on 2017. Imm gran pct 0.4 % [facility] Comment: Interpretive Data Percent cell count reference ranges are not reported, since discordance with absolute values may lead to misinterpretation of CBC data. Current Interpretive Data was last revised on 2017. Lymphocyte pct 0.2 % [facility] Comment: Interpretive Data Percent cell count reference ranges are not reported, since discordance with absolute values may lead to misinterpretation of CBC data. Current Interpretive Data was last revised on 2017. Monocyte pct 1.9 % [facility] Comment: Interpretive Data Percent cell count reference ranges are not reported, since discordance with absolute values may lead to misinterpretation of CBC data. Current Interpretive Data was last revised on 2017. Eosinophil pct 0.0 % [facility] Comment: Interpretive Data Percent cell count reference ranges are not reported, since discordance with absolute values may lead to misinterpretation of CBC data. Current Interpretive Data was last revised on 2017. Basophil pct 0.1 % [facility] Comment: Interpretive Data Percent cell count reference ranges are not reported, since discordance with absolute values may lead to misinterpretation of CBC data. Current Interpretive Data was last revised on 2017. Blood 01/21/2024 4:18 AM HEAVY MOBILE EQUIPMENT REPAIRER 01/21/2024 4:34 AM HEAVY MOBILE EQUIPMENT REPAIRER Larry Travis MD LAB BLOOD ORDERABLE S Final Result [facility] [place] [address] * Critical Result Callback Chemistry (01/21/2024 4:18 AM HEAVY MOBILE EQUIPMENT REPAIRER) Date Notified [id number] Time Notified [facility] TestName Potassium Plas [facility] Called/Read Back Vibha MCKEON [facility] Credentials RN [facility] Called By SANDEEP BALLARD Blood 01/21/2024 4:18 AM HEAVY MOBILE EQUIPMENT REPAIRER 01/21/2024 4:33 AM HEAVY MOBILE EQUIPMENT REPAIRER Larry Travis MD LAB BLOOD ORDERABLE S Final Result [facility] [place] [address] * Tacrolimus level trough (01/21/2024 4:18 AM HEAVY MOBILE EQUIPMENT REPAIRER) Tacrolimus trough <1.0 ng/mL Comment: Undetectable. Please verify that the correct immunosuppressant test was requested. Interpretive Data Testing performed by liquid chromatography-tandem mass spectrometry. Therapeutic concentrations vary depending on type of transplanted organ and time elapsed since transplant. Typical trough concentrations range from 5-15 ng/mL. This test was developed and its performance characteristics determined by the [facility] consistent with CLIA requirements. This test has not been cleared or approved by the US Food and Drug administration. Current interpretive data last reviewed 2019. Blood 01/21/2024 4:18 AM HEAVY MOBILE EQUIPMENT REPAIRER 01/21/2024 4:34 AM HEAVY MOBILE EQUIPMENT REPAIRER Ayush Galvez MD LAB BLOOD ORDERABLES Final Result Performing Organization Address City/[facility] Co de Phone Number [facility] [place] [address] * (ABNORMAL) CBC with auto differential (01/21/2024 4:18 AM HEAVY MOBILE EQUIPMENT REPAIRER) Pathologist [facility] WBC 10.5(H) 3.8 - 9.9 K/cumm Hgb 8.7(L) 13.0 - 17.5 g/dL [facility] Hct 25.8(L) 38.9 - 50.3 % [facility] Plt 110(L) 150 - 400 K/cumm [facility] MPV 9.7 9.1 - 12.3 fL [facility] RBC 2.66(L) 4.30 - 5.80 M/cumm [facility] MCV 97.0(H) 81.3 - 96.4 fL [facility] MCH 32.7 27.1 - 33.3 pg [facility] MCHC 33.7 32.3 - 35.7 g/dL [facility] RDW CV 15.9(H) 11.1 - 14.9 % [facility] RDW SD 55.3(H) 35.7 - 48.1 fL [facility] NRBC abs 0.00 0.00 - 0.01 K/cumm [facility] Blood 01/21/2024 4:18 AM HEAVY MOBILE EQUIPMENT REPAIRER 01/21/2024 4:34 AM HEAVY MOBILE EQUIPMENT REPAIRER Ayush Galvez MD LAB BLOOD ORDERABLES Final Result Performing Organization Address [facility]/ZIP Co de Phone Number [facility] [place] [address] * Magnesium (01/21/2024 4:18 AM HEAVY MOBILE EQUIPMENT REPAIRER) Magnesium 2.1 1.4 - 2.5 mg/dL Blood 01/21/2024 4:18 AM HEAVY MOBILE EQUIPMENT REPAIRER 01/21/2024 4:33 AM HEAVY MOBILE EQUIPMENT REPAIRER Ayush aGlvez MD LAB BLOOD ORDERABLES Final Result [facility] [place] [address] * (ABNORMAL) Renal function panel (01/21/2024 4:18 AM HEAVY MOBILE EQUIPMENT REPAIRER) Pathologist [facility] Sodium 135 135 - 145 mmol/L Potassium, pl 6.4(C) 3.3 - 4.9 mmol/L [facility] Chloride 94(L) 97 - 110 mmol/L [facility] CO2 25 22 - 32 mmol/L [facility] Anion gap 16(H) 2 - 15 mmol/L [facility] BUN 34(H) 6 - 25 mg/dL [facility] Creatinine 5.99(H) 0.80 - 1.30 mg/dL [facility] Glucose 217(H) 70 - 199 mg/dL [facility] Comment: Interpretive Data Fasting glucose >/= 126 mg/dl is diagnostic for diabetes. Fasting is defined as no caloric intake for at least 8 hours. Fasting glucose between 100 mg/dl to 125 mg/dl is diagnostic of prediabetes. In a patient with classic symptoms of hyperglycemia or hyperglycemic crisis, a random glucose >/= 200 mg/dl is diagnostic for diabetes. In the absence of unequivocal hyperglycemia, results should be confirmed by repeat testing. The classification and Diagnosis of Diabetes Diabetes Care 2021; 46: S19-S40. Current interpretive data was last revised 2022. Calcium 9.0 8.5 - 10.3 mg/dL [facility] Phosphorus, pl 6.5(H) 2.3 - 4.5 mg/dL [facility] Albumin 3.5 3.5 - 5.0 g/dL [facility] Blood 01/21/2024 4:18 AM HEAVY MOBILE EQUIPMENT REPAIRER 01/21/2024 4:33 AM HEAVY MOBILE EQUIPMENT REPAIRER us Ayush Glavez MD LAB BLOOD ORDERABLES Final Result [facility] [place] [address] * US Renal Transplant W Dopplers (01/20/2024 11:24 PM HEAVY MOBILE EQUIPMENT REPAIRER) Anatomical Region Laterality Modality Kidney N/A Ultrasound 01/21/2024 1:42 AM HEAVY MOBILE EQUIPMENT REPAIRER Impressions 01/21/2024 8:21 AM HEAVY MOBILE EQUIPMENT REPAIRER 1. Normal transplant kidney morphology without hydronephrosis. 2. Patent transplant renal artery and vein with mildly elevated segmental arterial resistive indices, which may be transient due to the immediate postoperative setting. Dictated by: Savanna Kwok MD, PhD. The radiology attending physician has personally reviewed this study, and had reviewed and/or edited this written report and agrees with it. Electronically signed by: Kyle Perez M.D. Narrative 01/21/2024 8:21 AM HEAVY MOBILE EQUIPMENT REPAIRER EXAMINATION: RENAL TRANSPLANT ULTRASOUND WITH DOPPLER HISTORY: History of renal transplant 01/20/2024 with concern for decreased vascular flow. COMPARISON: None The exam is limited by rapid patient breathing. FINDINGS: The right iliac fossa transplant kidney measures 12 cm in length. Echogenicity is normal. There is no hydronephrosis. There are no renal calculi visualized. No perinephric fluid collection is seen. Bladder: The urinary bladder is decompressed by a Delcid catheter. Color Doppler and spectral analysis were used to evaluate the renal vasculature. Resistive indices in the transplant segmental arteries range from 0.75 to 0.80, and are mildly elevated, which maybe transient due to immediate post-operative setting. Where seen, the transplant renal artery and vein are patent. The peak systolic velocities in the visualized portions of the renal artery measure up 68.1 cm/sec, and are normal. . Procedure Note Kyle Perez MD - 01/21/2024 EXAMINATION: RENAL TRANSPLANT ULTRASOUND WITH DOPPLER HISTORY: History of renal transplant 01/20/2024 with concern for decreased vascular flow. COMPARISON: None The exam is limited by rapid patient breathing. FINDINGS: The right iliac fossa transplant kidney measures 12 cm in length. Echogenicity is normal. There is no hydronephrosis. There are no renal calculi visualized. No perinephric fluid collection is seen. Bladder: The urinary bladder is decompressed by a Delcid catheter. Color Doppler and spectral analysis were used to evaluate the renal vasculature. Resistive indices in the transplant segmental arteries range from 0.75 to 0.80, and are mildly elevated, which maybe transient due to immediate post-operative setting. Where seen, the transplant renal artery and vein are patent. The peak systolic velocities in the visualized portions of the renal artery measure up 68.1 cm/sec, and are normal. . IMPRESSION: 1. Normal transplant kidney morphology without hydronephrosis. 2. Patent transplant renal artery and vein with mildly elevated segmental arterial resistive indices, which may be transient due to the immediate postoperative setting. Dictated by: Savanna Kwok MD, PhD. The radiology attending physician has personally reviewed this study, and had reviewed and/or edited this written report and agrees with it. Electronically signed by: Kyle Perez M.D. us Ayush Galvez MD IMG US PROCEDURES Final Res ult * (ABNORMAL) POCT glucose (01/20/2024 8:56 PM HEAVY MOBILE EQUIPMENT REPAIRER) Glucose, POC 263(H) 70 - 199 mg/dL Blood 01/20/2024 8:56 PM HEAVY MOBILE EQUIPMENT REPAIRER 01/20/2024 8:56 PM HEAVY MOBILE EQUIPMENT REPAIRER us Ayush Galvez MD LAB POCT ORDERABLES - DEVIC E Final Result [facility] Department [place] [address] * XR Chest 1 View (01/20/2024 5:58 PM HEAVY MOBILE EQUIPMENT REPAIRER) Anatomical Region Laterality Modality Body, Chest N/A Computed Radiogr aphy 01/21/2024 9:14 AM HEAVY MOBILE EQUIPMENT REPAIRER Impressions 01/21/2024 9:14 AM HEAVY MOBILE EQUIPMENT REPAIRER Comparison 01/18/2024. Sternal plates and wires are aligned and intact. Right internal jugular central venous catheter tip overlies superior vena cava. Mild bibasilar opacity may represent a combination of mild edema and atelectasis superimposed on underlying chronic interstitial lung disease, unchanged given the smaller lung volumes. No pneumothorax seen. Cardiomediastinal silhouette stable. Electronically signed by: Omar Hollins M.D. Narrative 01/21/2024 9:14 AM HEAVY MOBILE EQUIPMENT REPAIRER EXAMINATION: 1 view chest radiograph Procedure Note Omar Hollins MD - 01/21/2024 EXAMINATION: 1 view chest radiograph IMPRESSION: Comparison 01/18/2024. Sternal plates and wires are aligned and intact. Right internal jugular central venous catheter tip overlies superior vena cava. Mild bibasilar opacity may represent a combination of mild edema and atelectasis superimposed on underlying chronic interstitial lung disease, unchanged given the smaller lung volumes. No pneumothorax seen. Cardiomediastinal silhouette stable. Electronically signed by: Omar Hollins M.D. Christi Marsh MD IMG XR PROCEDURES Final R esult * (ABNORMAL) eGFR (01/20/2024 5:08 PM HEAVY MOBILE EQUIPMENT REPAIRER) eGFR 12(L) >=60 mL/min/1. 73 m2 Comment: Interpretive Data Reference Interval Normal >/= 90 mL/min/1.73m2 Mildly decreased* 60 - 89 mL/min/1.73m2 Mildly to moderately decreased 45 - 59 mL/min/1.73m2 Moderately to severely decreased 30 - 44 mL/min/1.73m2 Severely decreased 15 - 29 mL/min/1.73m2 Kidney Failure < 15 mL/min/1.73m2 *Relative to young adult level Estimated glomerular filtration rate is determined by the 2020 CKD-EPI equation recommended by the National Kidney Foundation (A Unifying Approach to GFR Estimation: Recommendations of the NKF-ASK Task Force on Reassessing the Inclusion of Race in Diagnosing Kidney Disease, JASN 2020). The CKD-EPI equation should not be used for patients with unstable renal function and has not been validated in children and those over 70. Current interpretive data was last reviewed 2020. Blood 01/20/2024 5:08 PM HEAVY MOBILE EQUIPMENT REPAIRER 01/20/2024 5:27 PM HEAVY MOBILE EQUIPMENT REPAIRER Larry Travis MD LAB BLOOD ORDERABLE S Final Result Performing Organization Address [facility] Co de Phone Number [facility] [address] * (ABNORMAL) CBC without differential (01/20/2024 5:08 PM HEAVY MOBILE EQUIPMENT REPAIRER) WBC 11.3(H) 3.8 - 9.9 K/cumm Hgb 9.4(L) 13.0 - 17.5 g/dL [facility] Hct 28.1(L) 38.9 - 50.3 % [facility] Plt 134(L) 150 - 400 K/cumm [facility] MPV 9.4 9.1 - 12.3 fL [facility] RBC 2.88(L) 4.30 - 5.80 M/cumm [facility] MCV 97.6(H) 81.3 - 96.4 fL [facility] MCH 32.6 27.1 - 33.3 pg [facility] MCHC 33.5 32.3 - 35.7 g/dL [facility] RDW CV 15.4(H) 11.1 - 14.9 % [facility] RDW SD 54.8(H) 35.7 - 48.1 fL [facility] NRBC abs 0.03(H) 0.00 - 0.01 K/cumm [facility] Blood 01/20/2024 5:08 PM HEAVY MOBILE EQUIPMENT REPAIRER 01/20/2024 5:27 PM HEAVY MOBILE EQUIPMENT REPAIRER Larry Travis MD LAB BLOOD ORDERABLE S Final Result [facility] [place] [address] * (ABNORMAL) Renal function panel (01/20/2024 5:08 PM HEAVY MOBILE EQUIPMENT REPAIRER) Sodium 136 135 - 145 mmol/L Potassium, pl 5.0(H) 3.3 - 4.9 mmol/L [facility] Chloride 95(L) 97 - 110 mmol/L [facility] CO2 27 22 - 32 mmol/L [facility] Anion gap 14 2 - 15 mmol/L [facility] BUN 25 6 - 25 mg/dL [facility] Creatinine 5.21(H) 0.80 - 1.30 mg/dL [facility] Glucose 180 70 - 199 mg/dL [facility] Comment: Interpretive Data Fasting glucose >/= 126 mg/dl is diagnostic for diabetes. Fasting is defined as no caloric intake for at least 8 hours. Fasting glucose between 100 mg/dl to 125 mg/dl is diagnostic of prediabetes. In a patient with classic symptoms of hyperglycemia or hyperglycemic crisis, a random glucose >/= 200 mg/dl is diagnostic for diabetes. In the absence of unequivocal hyperglycemia, results should be confirmed by repeat testing. The classification and Diagnosis of Diabetes Diabetes Care 2021; 46: S19-S40. Current interpretive data was last revised 2022. Calcium 9.0 8.5 - 10.3 mg/dL [facility] Phosphorus, pl 6.0(H) 2.3 - 4.5 mg/dL [facility] Albumin 3.3(L) 3.5 - 5.0 g/dL [facility] Blood 01/20/2024 5:08 PM HEAVY MOBILE EQUIPMENT REPAIRER 01/20/2024 5:27 PM HEAVY MOBILE EQUIPMENT REPAIRER us Larry Travis MD LAB BLOOD ORDERABLE S Final Result [facility] [place] [address] * POCT glucose (01/20/2024 4:51 PM HEAVY MOBILE EQUIPMENT REPAIRER) Glucose, POC 162 70 - 199 mg/dL Blood 01/20/2024 4:51 PM HEAVY MOBILE EQUIPMENT REPAIRER 01/20/2024 4:51 PM HEAVY MOBILE EQUIPMENT REPAIRER us Larry Travis MD LAB POCT ORDERABLES - DEVICE Final Result [facility] [place] [address] * (ABNORMAL) POC Blood Gas and Chemistries, Arterial - (01/20/2024 4:23 PM HEAVY MOBILE EQUIPMENT REPAIRER) pH, Art POC 7.33(L) 7.35 - 7.45 pCO2, Art POC 54(H) 35 - 45 mmHg [facility] pO2, Art POC 104 83 - 108 mmHg [facility] Na, POC 135 135 - 145 mmol/L [facility] K POC 5.2(H) 3.3 - 4.9 mmol/L [facility] Comment: Interpretive Data Not all point of care methods assess for hemolysis. Confirm with instrument and retest K+ if not consistent with clinical signs and symptoms. Current Interpretive Data was last revised on 2023. Cl, POC 99 97 - 110 mmol/L [facility] Ionized Ca, POC 4.82 4.50 - 5.10 mg/dL [facility] Glucose, POC 171 70 - 199 mg/dL [facility] Lactate, POC 2.6(H) 0.7 - 2.2 mmol/L [facility] SO2 (elvia) arterial 99(H) 90 - 95 % [facility] Base excess, POC 1.9 mmol/L [facility] Hct, POC 30.0(L) 41.4 - 51.6 % [facility] Total Hb, POC 9.9(L) 13.8 - 17.2 g/dL [facility] Blood 01/20/2024 4:23 PM HEAVY MOBILE EQUIPMENT REPAIRER 01/20/2024 4:23 PM HEAVY MOBILE EQUIPMENT REPAIRER us Larry Travis MD LAB POCT ORDERABLES - DEVICE Final Result [facility] [place] [address] * Transfuse RBC (01/20/2024 4:00 PM HEAVY MOBILE EQUIPMENT REPAIRER) Blood Roscoe Sandhu MD BLOOD TRANSFUSION ORDERABLES F inal Result Performing Organization Address City/[facility]/ZIP Co de Phone Number [facility] [place] [address] * (ABNORMAL) POC Blood Gas and Chemistries, Arterial - (01/20/2024 3:09 PM HEAVY MOBILE EQUIPMENT REPAIRER) pH, Art POC 7.42 7.35 - 7.45 pCO2, Art POC 47(H) 35 - 45 mmHg [facility] pO2, Art POC 77(L) 83 - 108 mmHg [facility] Na, POC 135 135 - 145 mmol/L [facility] K POC 5.2(H) 3.3 - 4.9 mmol/L [facility] Comment: Interpretive Data Not all point of care methods assess for hemolysis. Confirm with instrument and retest K+ if not consistent with clinical signs and symptoms. Current Interpretive Data was last revised on 2023. Ionized Ca, POC 4.79 4.50 - 5.10 mg/dL [facility] Glucose, POC 134 70 - 199 mg/dL [facility] Lactate, POC 1.5 0.7 - 2.2 mmol/L [facility] SO2 (elvia) arterial 98(H) 90 - 95 % [facility] Base excess, POC 5.3 mmol/L [facility] Hct, POC 29.0(L) 41.4 - 51.6 % [facility] Total Hb, POC 9.8(L) 13.8 - 17.2 g/dL [facility] Blood 01/20/2024 3:09 PM HEAVY MOBILE EQUIPMENT REPAIRER 01/20/2024 3:09 PM HEAVY MOBILE EQUIPMENT REPAIRER us Larry Travis MD LAB POCT ORDERABLES - DEVICE Final Result Performing Organization Address City/[facility]/ZIP Co de Phone Number [facility] [place] [address] * POCT glucose (01/20/2024 2:41 PM HEAVY MOBILE EQUIPMENT REPAIRER) Glucose, POC 108 70 - 199 mg/dL Blood 01/20/2024 2:41 PM HEAVY MOBILE EQUIPMENT REPAIRER 01/20/2024 2:41 PM HEAVY MOBILE EQUIPMENT REPAIRER Larry Travis MD LAB POCT ORDERABLES - DEVICE Final Result [facility] [place] [address] * Central Venous Line (01/20/2024 2:37 PM HEAVY MOBILE EQUIPMENT REPAIRER) Narrative Elizabeth Castellano MD - 01/20/2024 2:37 PM HEAVY MOBILE EQUIPMENT REPAIRER Elizabeth Castellano MD 01/20/2024 2:38 PM Central Venous Line Patient location: OR Indication: central venous access and CVP monitoring Staff: Supervising provider: Roscoe Sandhu MD Placed by: Resident: Elizabeth Castellano MD Procedure prep: Patient position: Trendelenburg. PPE: provider hat/mask, provider hand hygiene, sterile gloves, sterile gown, full body drape, sterile probe covers and sterile gel. Prep solution: chlorhexadine/alcohol was applied to area. Ultrasound Evaluation: Ultrasound was prepped into field. Prior to the procedure, the cannulated vein was evaluated by ultrasound and deemed suitably patent for access.This vessel was accessed using real-time ultrasound guidance and an image was placed in the patient's medical record Central line: Laterality: right Site: internal jugular Catheter type: quad lumen Catheter size: 8.5 Fr. Catheter length: 16 cm Catheter length at skin: 16 cm Technique: anatomy identified with surface landmarks, wire threaded easily, wire removed intact and anatomy identified with ultrasound Venous verification: manometry, pressure transduced, ultrasound confirmation and AUDRA confirmation Post insertion: all ports aspirated, all ports flushed easily, line sutured in place and occlusive dressing applied Chlorhexidine patch applied: yes Number of attempts: 1 Assessment: Events: patient tolerated procedure well with no complications us Roscoe Sandhu MD ANESTHESIA ORDERABLES Final Re sult * Airway (01/20/2024 1:37 PM HEAVY MOBILE EQUIPMENT REPAIRER) Narrative Elizabeth Castellano MD - 01/20/2024 1:37 PM HEAVY MOBILE EQUIPMENT REPAIRER Elizabeth Castellano MD 01/20/2024 1:37 PM Airway Patient location: OR Urgency: elective Indications for airway management: anesthesia and airway protection Difficult airway: no Staff: Placed by: Resident: Elizabeth Castellano MD Emergent airway documentation: Risks and benefits discussed: yes Consent obtained: yes Consent given by: patient Airway prep: Preoxygenated: yes Patient position: sniffing Mask difficulty assessment: 1 - vent by mask Spontaneous ventilation during airway: absent Sedation level during airway: GA Final airway details: Final airway type: endotracheal airway Tube type: ETT ETT size: 8.0 mm Cuffed: yes Technique used for successful ETT placement: video laryngoscopy Devices/Methods used in placement: stylet Insertion site: oral Blade type: Odalis Video blade type: Weir Blade size: 4 Cormack-Lehane (video): grade I - full view of glottis Cuff volume: 10 mL Cuff inflated with: air ETT to lips: 24 cm Placement verified by: auscultation Airway secured with: silk tape Number of attempts: 1 Planned trial extubation: yes Roscoe Sandhu MD ANESTHESIA ORDERABLES Final Re sult * POCT glucose (01/20/2024 11:12 AM HEAVY MOBILE EQUIPMENT REPAIRER) Glucose, POC 132 70 - 199 mg/dL Blood 01/20/2024 11:1 2 AM HEAVY MOBILE EQUIPMENT REPAIRER 01/20/2024 11:12 AM HEAVY MOBILE EQUIPMENT REPAIRER Larry Travis MD LAB POCT ORDERABLES - DEVICE Final Result [facility] Department [place] [address] * HLA Donor Specific Antibody Report (01/20/2024 7:31 AM HEAVY MOBILE EQUIPMENT REPAIRER) us Provider Scanning LAB BLOOD ORDERABLES Final Res ult * (ABNORMAL) eGFR (01/20/2024 12:08 AM HEAVY MOBILE EQUIPMENT REPAIRER) eGFR 6(L) >=60 mL/min/1. 73 m2 Comment: Interpretive Data Reference Interval Normal >/= 90 mL/min/1.73m2 Mildly decreased* 60 - 89 mL/min/1.73m2 Mildly to moderately decreased 45 - 59 mL/min/1.73m2 Moderately to severely decreased 30 - 44 mL/min/1.73m2 Severely decreased 15 - 29 mL/min/1.73m2 Kidney Failure < 15 mL/min/1.73m2 *Relative to young adult level Estimated glomerular filtration rate is determined by the 2020 CKD-EPI equation recommended by the National Kidney Foundation (A Unifying Approach to GFR Estimation: Recommendations of the NKF-ASK Task Force on Reassessing the Inclusion of Race in Diagnosing Kidney Disease, JASN 2020). The CKD-EPI equation should not be used for patients with unstable renal function and has not been validated in children and those over 70. Current interpretive data was last reviewed 2020. Blood 01/20/2024 12:0 8 AM HEAVY MOBILE EQUIPMENT REPAIRER 01/20/2024 12:43 AM HEAVY MOBILE EQUIPMENT REPAIRER Larry Travis MD LAB BLOOD ORDERABLE S Final Result [facility] [place] [address] * (ABNORMAL) Basic metabolic panel (01/20/2024 12:08 AM HEAVY MOBILE EQUIPMENT REPAIRER) Sodium 140 135 - 145 mmol/L Potassium, pl 4.8 3.3 - 4.9 mmol/L [facility] Chloride 95(L) 97 - 110 mmol/L [facility] CO2 30 22 - 32 mmol/L [facility] Anion gap 15 2 - 15 mmol/L [facility] BUN 55(H) 6 - 25 mg/dL [facility] Creatinine 9.05(H) 0.80 - 1.30 mg/dL [facility] Glucose 129 70 - 199 mg/dL [facility] Comment: Interpretive Data Fasting glucose >/= 126 mg/dl is diagnostic for diabetes. Fasting is defined as no caloric intake for at least 8 hours. Fasting glucose between 100 mg/dl to 125 mg/dl is diagnostic of prediabetes. In a patient with classic symptoms of hyperglycemia or hyperglycemic crisis, a random glucose >/= 200 mg/dl is diagnostic for diabetes. In the absence of unequivocal hyperglycemia, results should be confirmed by repeat testing. The classification and Diagnosis of Diabetes Diabetes Care 2021; 46: S19-S40. Current interpretive data was last revised 2022. Calcium 9.7 8.5 - 10.3 mg/dL [facility] Blood 01/20/2024 12:0 8 AM HEAVY MOBILE EQUIPMENT REPAIRER 01/20/2024 12:43 AM HEAVY MOBILE EQUIPMENT REPAIRER us Larry Travis MD LAB BLOOD ORDERABLE S Final Result [facility] [place] [address] * XR Ankle Right 3 or More Views (01/19/2024 12:37 PM HEAVY MOBILE EQUIPMENT REPAIRER) Anatomical Region Laterality Modality Lower Extremities, Ankle Right Compute d Radiography 01/19/2024 3:28 PM HEAVY MOBILE EQUIPMENT REPAIRER Impressions 01/19/2024 4:08 PM HEAVY MOBILE EQUIPMENT REPAIRER 1. Right leg subcutaneous edema with chronic venous stasis and medial ankle ulcer but no radiographic evidence of osteomyelitis. Dictated by: Liliane Ceja MD, MPH The radiology attending physician has personally reviewed this study, and had reviewed and/or edited this written report and agrees with it. Electronically signed by: Roscoe Tavarez M.D. Narrative 01/19/2024 4:08 PM HEAVY MOBILE EQUIPMENT REPAIRER EXAMINATION: XR TIBIA FIBULA RIGHT2 VIEWS, XR ANKLE RIGHT 3 OR MORE VIEWS HISTORY: 63-year-old male with a chronic ulcer. Rule out osteomyelitis. FINDINGS: Right tibia/fibula: 4 views of the right tibia/fibula are obtained for interpretation. Comparison is made to radiograph 06/09/2023. There is soft tissue swelling and edema involving the lateral aspect of the calf with sequelae of chronic venous stasis, including superficial calcifications. No acute fracture. No osseous erosions. Normal alignment of bones. Mild tibiotalar joint osteoarthritis. Vascular calcifications. Right ankle: 3 views of the right ankle are obtained for interpretation. No acute fracture or dislocation. The talar dome is intact. No osseous erosions. Vascular calcifications are present. A soft tissue wound with gas is noted overlying the posterior calf. Small plantar calcaneal spur. Procedure Note Roscoe Tavarez MD - 01/19/2024 EXAMINATION: XR TIBIA FIBULA RIGHT2 VIEWS, XR ANKLE RIGHT 3 OR MORE VIEWS HISTORY: 63-year-old male with a chronic ulcer. Rule out osteomyelitis. FINDINGS: Right tibia/fibula: 4 views of the right tibia/fibula are obtained for interpretation. Comparison is made to radiograph 06/09/2023. There is soft tissue swelling and edema involving the lateral aspect of the calf with sequelae of chronic venous stasis, including superficial calcifications. No acute fracture. No osseous erosions. Normal alignment of bones. Mild tibiotalar joint osteoarthritis. Vascular calcifications. Right ankle: 3 views of the right ankle are obtained for interpretation. No acute fracture or dislocation. The talar dome is intact. No osseous erosions. Vascular calcifications are present. A soft tissue wound with gas is noted overlying the posterior calf. Small plantar calcaneal spur. IMPRESSION: 1. Right leg subcutaneous edema with chronic venous stasis and medial ankle ulcer but no radiographic evidence of osteomyelitis. Dictated by: Liliane Ceja MD, MPH The radiology attending physician has personally reviewed this study, and had reviewed and/or edited this written report and agrees with it. Electronically signed by: Roscoe Tavarez M.D. us Rosalie Velásquez NP IMG XR PROCEDURES Final Res ult * XR Tibia Fibula Right 2 Views (01/19/2024 12:37 PM HEAVY MOBILE EQUIPMENT REPAIRER) Anatomical Region Laterality Modality Lower Extremities, Lower Leg Right Com puted Radiography 01/19/2024 3:28 PM HEAVY MOBILE EQUIPMENT REPAIRER Impressions 01/19/2024 4:08 PM HEAVY MOBILE EQUIPMENT REPAIRER 1. Right leg subcutaneous edema with chronic venous stasis and medial ankle ulcer but no radiographic evidence of osteomyelitis. Dictated by: Liliane Ceja MD, MPH The radiology attending physician has personally reviewed this study, and had reviewed and/or edited this written report and agrees with it. Electronically signed by: Roscoe Tavarez M.D. Narrative 01/19/2024 4:08 PM HEAVY MOBILE EQUIPMENT REPAIRER EXAMINATION: XR TIBIA FIBULA RIGHT2 VIEWS, XR ANKLE RIGHT 3 OR MORE VIEWS HISTORY: 63-year-old male with a chronic ulcer. Rule out osteomyelitis. FINDINGS: Right tibia/fibula: 4 views of the right tibia/fibula are obtained for interpretation. Comparison is made to radiograph 06/09/2023. There is soft tissue swelling and edema involving the lateral aspect of the calf with sequelae of chronic venous stasis, including superficial calcifications. No acute fracture. No osseous erosions. Normal alignment of bones. Mild tibiotalar joint osteoarthritis. Vascular calcifications. Right ankle: 3 views of the right ankle are obtained for interpretation. No acute fracture or dislocation. The talar dome is intact. No osseous erosions. Vascular calcifications are present. A soft tissue wound with gas is noted overlying the posterior calf. Small plantar calcaneal spur. Procedure Note Roscoe Tavarez MD - 01/19/2024 EXAMINATION: XR TIBIA FIBULA RIGHT2 VIEWS, XR ANKLE RIGHT 3 OR MORE VIEWS HISTORY: 63-year-old male with a chronic ulcer. Rule out osteomyelitis. FINDINGS: Right tibia/fibula: 4 views of the right tibia/fibula are obtained for interpretation. Comparison is made to radiograph 06/09/2023. There is soft tissue swelling and edema involving the lateral aspect of the calf with sequelae of chronic venous stasis, including superficial calcifications. No acute fracture. No osseous erosions. Normal alignment of bones. Mild tibiotalar joint osteoarthritis. Vascular calcifications. Right ankle: 3 views of the right ankle are obtained for interpretation. No acute fracture or dislocation. The talar dome is intact. No osseous erosions. Vascular calcifications are present. A soft tissue wound with gas is noted overlying the posterior calf. Small plantar calcaneal spur. IMPRESSION: 1. Right leg subcutaneous edema with chronic venous stasis and medial ankle ulcer but no radiographic evidence of osteomyelitis. Dictated by: Liliane Ceja MD, MPH The radiology attending physician has personally reviewed this study, and had reviewed and/or edited this written report and agrees with it. Electronically signed by: Roscoe Tavarez M.D. Rosalie Velásquez FREEZER UNLOADER IMG XR PROCEDURES Final Res ult * Urine culture Urine, clean voided (01/19/2024 8:50 AM HEAVY MOBILE EQUIPMENT REPAIRER) Report Final Report: Less than 100,000 colonies/mL (clinically insignificant growth based on current clinical standards) Organism (CLINICALLY INSIGNIFICANT GROWTH [facility] Urine, clean voided 01/19/2024 8:50 AM HEAVY MOBILE EQUIPMENT REPAIRER 01/19/2024 9:48 AM HEAVY MOBILE EQUIPMENT REPAIRER Narrative [facility] - 01/20/2024 4:21 PM HEAVY MOBILE EQUIPMENT REPAIRER Indications for Culture:->Other (specify) Other Indication:->pre-op Testing performed by [facility] ([phone]) Rosalie Velásquez NP LAB MICROBIOLOGY - GENERAL ORDERABLES Final Result [facility] [place] [address] * Prepare RBC: 2 Units (01/19/2024 6:31 AM HEAVY MOBILE EQUIPMENT REPAIRER) Product code [id number] Unit Number [id number]- Z [facility] Product Blood Type ONEG [facility] Dispense Status PRESUMED TRANSFUSED [facility] Product code [id number] [facility] Unit Number [id number]- [id number] [facility] Product Blood Type ONEG [facility] Dispense Status PRESUMED TRANSFUSED [facility] Blood 01/19/2024 6:31 AM HEAVY MOBILE EQUIPMENT REPAIRER 01/19/2024 6:30 AM HEAVY MOBILE EQUIPMENT REPAIRER Narrative [facility] - 01/23/2024 12:55 AM HEAVY MOBILE EQUIPMENT REPAIRER Specify Procedure:->Kidney Transplant Are special requirements needed? (All products are leukoreduced and CMV- safe)- >No Date required:-[id number] LRRBC # of [id number] Reasons:-Hold for procedure (specify procedure)} Larry Travis MD BLOOD BANK PRODUCT ORDERABLES Final Result Performing Organization Address [facility] Co de Phone Number LINDA GALVIN [facility] [place] [address] * HLA Crossmatch Report (01/18/2024 11:43 PM HEAVY MOBILE EQUIPMENT REPAIRER) us Rosalie Velásquez NP LAB BLOOD ORDERABLES Final Result * HLA Crossmatch, ALLO (01/18/2024 11:43 PM HEAVY MOBILE EQUIPMENT REPAIRER) Blood 01/18/2024 11:4 3 PM HEAVY MOBILE EQUIPMENT REPAIRER 01/20/2024 9:03 AM HEAVY MOBILE EQUIPMENT REPAIRER Narrative [facility] - 01/20/2024 9:03 AM HEAVY MOBILE EQUIPMENT REPAIRER Rosalie Velásquez NP LAB BLOOD ORDERABLES Final Result Performing Organization Address [facility] Co de Phone Number [facility] * HLA Antibody Screen by PRA or SAB per Schedule (Class I and Class II) (01/18/2024 11:43 PM HEAVY MOBILE EQUIPMENT REPAIRER) Blood 01/18/2024 11:4 3 PM HEAVY MOBILE EQUIPMENT REPAIRER Narrative [facility] - HEAVY MOBILE EQUIPMENT REPAIRER Sample received in lab. Single Antigen Antibody Screen ordered. Rosalie Velásquez NP LAB BLOOD ORDERABLES Final Result Performing Organization Address [facility] Co de Phone Number [facility] * HLA Antibody Screen - SAB (Class I and Class II) (01/18/2024 11:43 PM HEAVY MOBILE EQUIPMENT REPAIRER) Class I Treatment EDTA [facility] Class I Dilution 1:1 [facility] Class I Tested Date 01/19/2024 [facility] Class I Result Negative [facility] Class I CPRA 0 [facility] Class II Treatment EDTA [facility] Class II Dilution 1:1 [facility] Class II Tested Date 01/19/2024 [facility] Class II Result Negative [facility] Class II CPRA 0 [facility] Class II Low Risk DR53; DQ2 [facility] 01/18/2024 11:4 3 PM HEAVY MOBILE EQUIPMENT REPAIRER 01/20/2024 7:24 AM HEAVY MOBILE EQUIPMENT REPAIRER Narrative [facility] - 01/20/2024 7:24 AM HEAVY MOBILE EQUIPMENT REPAIRER Single-antigen HLA antibody screen is performed on serum samples using a method developed and validated by the [facility] HLA laboratory based on an FDA-approved IVD kit (Whereoscopecreen Single-Antigen, [employer], [place], [place]). All patient serum samples are pretreated with EDTA before the screen to prevent complement interference. Additional serum treatments, such as adsorption and DTT treatment, may be performed as indicated. Interpretive comments: Low risk: MFI [id number]. Moderate risk: MFI 4442-8228. Increased risk: MFI >/= 5000. The presence of an antigen in two or more risk categories may indicate a mixed reactivity pattern among beads of multiple subtypes. Preformed donor-specific antibodies (DSA) with MFI above 2000 are predictive of positive cytotoxicity crossmatch (Hum Immunol 2010;71:268-73. Hum Immunol 2012;73:497- 604) and carry a higher risk of humoral rejection. For our solid-organ transplant programs, unacceptable antigens (UA) for transplant candidates are defined by MFI >/= 2000 with some exceptions. UA are listed at [facility] and used to generate calculated PRA (cPRA) rounded to the nearest integer. In the post-transplant setting, MFI values from donor-specific beads are listed in the DSA report to provide additional information. It is important to note that this test is approved as a qualitative test and the MFI values are not strictly linear. For platelet refractoriness: An empirical cutoff value of MFI >/= 2000 has been used in our center; a higher cutoff value such as 5000 may also be suitable for highly sensitized patients to prioritize the antigens to avoid. Testing performed at the [facility], [address] [place] [address], 5th floor, [place], [address]. CLIA # [id number]. Magalis Bean, Ph.D., Stake Driver, HLA Laboratory José Miguel Yun M.D., Ph.D., Caster Operator, HLA Laboratory Nessa Marley, Ph.D., ROSA Caster Operator, [facility] Current methodology and interpretive comments last revised on 03/27/2022. Rosalie Velásquez NP LAB BLOOD ORDERABLES Final Result [facility] * X-ray chest 1 view (01/18/2024 11:41 PM HEAVY MOBILE EQUIPMENT REPAIRER) Anatomical Region Laterality Modality Body, Chest N/A Digital Radiogra phy 01/19/2024 4:05 AM HEAVY MOBILE EQUIPMENT REPAIRER Impressions 01/19/2024 4:05 AM HEAVY MOBILE EQUIPMENT REPAIRER Comparison is made to prior study of 09/17/2023 at 7:28 AM. In the interval, no change in findings of median sternotomy. Mild basilar atelectasis is seen on the left but there is no pulmonary edema or pneumonia. Basilar opacities may be indicative of underlying fibrosis. No pneumothorax or definite pleural effusion. The heart size and mediastinal contour are unchanged. Electronically signed by: Evan Boothe M.D. Narrative 01/19/2024 4:05 AM HEAVY MOBILE EQUIPMENT REPAIRER EXAMINATION: 1 view chest radiograph Procedure Note Evan Boothe MD - 01/19/2024 EXAMINATION: 1 view chest radiograph IMPRESSION: Comparison is made to prior study of 09/17/2023 at 7:28 AM. In the interval, no change in findings of median sternotomy. Mild basilar atelectasis is seen on the left but there is no pulmonary edema or pneumonia. Basilar opacities may be indicative of underlying fibrosis. No pneumothorax or definite pleural effusion. The heart size and mediastinal contour are unchanged. Electronically signed by: Evan Boothe M.D. us Rosalie Velásquez NP IMG XR PROCEDURES Final Res ult * Collection Task for HLA Antibody Screen (01/18/2024 10:50 PM HEAVY MOBILE EQUIPMENT REPAIRER) HLA Antibody Screen by PRA Received Blood 01/18/2024 10:5 0 PM HEAVY MOBILE EQUIPMENT REPAIRER 01/19/2024 9:57 AM HEAVY MOBILE EQUIPMENT REPAIRER Rosalie Velásquez FREEZER UNLOADER LAB BLOOD ORDERABLES Final Result Performing Organization Address City/[facility] Co de Phone Number LINDA [facility] [place] [address] * (ABNORMAL) eGFR (01/18/2024 10:50 PM HEAVY MOBILE EQUIPMENT REPAIRER) Pathologist [facility] eGFR 9(L) >=60 mL/min/1. 73 m2 Comment: Interpretive Data Reference Interval Normal >/= 90 mL/min/1.73m2 Mildly decreased* 60 - 89 mL/min/1.73m2 Mildly to moderately decreased 45 - 59 mL/min/1.73m2 Moderately to severely decreased 30 - 44 mL/min/1.73m2 Severely decreased 15 - 29 mL/min/1.73m2 Kidney Failure < 15 mL/min/1.73m2 *Relative to young adult level Estimated glomerular filtration rate is determined by the 2020 CKD-EPI equation recommended by the National Kidney Foundation (A Unifying Approach to GFR Estimation: Recommendations of the NKF-ASK Task Force on Reassessing the Inclusion of Race in Diagnosing Kidney Disease, JASN 2020). The CKD-EPI equation should not be used for patients with unstable renal function and has not been validated in children and those over 70. Current interpretive data was last reviewed 2020. Blood 01/18/2024 10:5 0 PM HEAVY MOBILE EQUIPMENT REPAIRER 01/18/2024 11:14 PM HEAVY MOBILE EQUIPMENT REPAIRER us Rosalie Velásquez FREEZER UNLOADER LAB BLOOD ORDERABLES Final Result Performing Organization Address City/[facility]/ZIP Co de Phone Number [facility] [place] [address] * Differential, auto (01/18/2024 10:50 PM HEAVY MOBILE EQUIPMENT REPAIRER) [facility] Neutrophil abs 5.4 1.5 - 6.5 K/cumm Imm gran abs 0.0 0.0 - 0.1 K/cumm [facility] Lymphocyte abs 1.2 0.8 - 3.3 K/cumm [facility] Monocyte abs 0.6 0.2 - 0.8 K/cumm [facility] Eosinophil abs 0.2 0.0 - 0.5 K/cumm [facility] Basophil abs 0.0 0.0 - 0.1 K/cumm [facility] Neutrophil pct 73.1 % [facility] Comment: Interpretive Data Percent cell count reference ranges are not reported, since discordance with absolute values may lead to misinterpretation of CBC data. Current Interpretive Data was last revised on 2017. Imm gran pct 0.4 % [facility] Comment: Interpretive Data Percent cell count reference ranges are not reported, since discordance with absolute values may lead to misinterpretation of CBC data. Current Interpretive Data was last revised on 2017. Lymphocyte pct 15.7 % [facility] Comment: Interpretive Data Percent cell count reference ranges are not reported, since discordance with absolute values may lead to misinterpretation of CBC data. Current Interpretive Data was last revised on 2017. Monocyte pct 7.4 % [facility] Comment: Interpretive Data Percent cell count reference ranges are not reported, since discordance with absolute values may lead to misinterpretation of CBC data. Current Interpretive Data was last revised on 2017. Eosinophil pct 3.0 % [facility] Comment: Interpretive Data Percent cell count reference ranges are not reported, since discordance with absolute values may lead to misinterpretation of CBC data. Current Interpretive Data was last revised on 2017. Basophil pct 0.4 % [facility] Comment: Interpretive Data Percent cell count reference ranges are not reported, since discordance with absolute values may lead to misinterpretation of CBC data. Current Interpretive Data was last revised on 2017. Blood 01/18/2024 10:5 0 PM HEAVY MOBILE EQUIPMENT REPAIRER 01/18/2024 11:15 PM HEAVY MOBILE EQUIPMENT REPAIRER us Rosalie Velásquez NP LAB BLOOD ORDERABLES Final Result [facility] [place] [address] * (ABNORMAL) Iron profile w/ IBC (01/18/2024 10:50 PM HEAVY MOBILE EQUIPMENT REPAIRER) [facility] Iron 52 50 - 150 mcg/dL TIBC 162(L) 250 - 400 mcg/dL [facility] Transferrin saturation 32 20 - 50 % [facility] Blood 01/18/2024 10:5 0 PM HEAVY MOBILE EQUIPMENT REPAIRER 01/18/2024 11:14 PM HEAVY MOBILE EQUIPMENT REPAIRER Rosalie Velásquez NP LAB BLOOD ORDERABLES Final Result Performing Organization Address [facility] de Phone Number [facility] [place] [address] * HIV 1/2 Antibody plus p24 Antigen Blood (01/18/2024 10:50 PM HEAVY MOBILE EQUIPMENT REPAIRER) [facility] HIV 1/2 ab + p24 ag Nonreactive Nonreactive Comment:Nonreactive for HIV- 1 antigen and HIV-1/HIV-2 antibodies. No laboratory evidence of HIV infection. If acute HIV infection is suspected, consider testing for HIV-1 RNA. Current interpretive data was last revised on 21. Blood 01/18/2024 10:5 0 PM HEAVY MOBILE EQUIPMENT REPAIRER 01/18/2024 11:15 PM HEAVY MOBILE EQUIPMENT REPAIRER Rosalie Velásquez NP LAB MICROBIOLOGY - GENERAL ORDERABLES Final Result Performing Organization Address [facility] de Phone Number [facility] [place] [address] * (ABNORMAL) CBC with auto differential (01/18/2024 10:50 PM HEAVY MOBILE EQUIPMENT REPAIRER) [facility] WBC 7.4 3.8 - 9.9 K/cumm Hgb 10.1(L) 13.0 - 17.5 g/dL [facility] Hct 30.4(L) 38.9 - 50.3 % [facility] Plt 155 150 - 400 K/cumm [facility] MPV 9.5 9.1 - 12.3 fL [facility] RBC 3.05(L) 4.30 - 5.80 M/cumm [facility] MCV 99.7(H) 81.3 - 96.4 fL [facility] MCH 33.1 27.1 - 33.3 pg [facility] MCHC 33.2 32.3 - 35.7 g/dL [facility] RDW CV 14.4 11.1 - 14.9 % [facility] RDW SD 51.3(H) 35.7 - 48.1 fL [facility] NRBC abs 0.00 0.00 - 0.01 K/cumm [facility] Blood 01/18/2024 10:5 0 PM HEAVY MOBILE EQUIPMENT REPAIRER 01/18/2024 11:15 PM HEAVY MOBILE EQUIPMENT REPAIRER Rosalie Velásquez NP LAB BLOOD ORDERABLES Final Result Performing Organization Address City/[facility] Co de Phone Number [facility] [place] [address] * Hepatitis C antibody Blood (01/18/2024 10:50 PM HEAVY MOBILE EQUIPMENT REPAIRER) Pathologist [facility] Hep C Ab Nonreactive Nonreactive Comment:Antibodies to HCV no t detected. Does NOT exclude the possibility of recent exposure to HCV. Current interpretive data was last revised on 21 Blood 01/18/2024 10:5 0 PM HEAVY MOBILE EQUIPMENT REPAIRER 01/18/2024 11:14 PM HEAVY MOBILE EQUIPMENT REPAIRER Rosalie Velásquez NP LAB MICROBIOLOGY - GENERAL ORDERABLES Final Result [facility] [place] [address] * Hepatitis B core antibody, total Blood (01/18/2024 10:50 PM HEAVY MOBILE EQUIPMENT REPAIRER) Pathologist [facility] Hep B core IgG/IgM Nonreactive Nonreactive Blood 01/18/2024 10:5 0 PM HEAVY MOBILE EQUIPMENT REPAIRER 01/18/2024 11:14 PM HEAVY MOBILE EQUIPMENT REPAIRER Rosalie Velásquez NP LAB MICROBIOLOGY - GENERAL ORDERABLES Final Result Performing Organization Address [facility] Co de Phone Number [facility] [place] [address] * Hepatitis C (HCV) RNA PCR, quantitative Blood (01/18/2024 10:50 PM HEAVY MOBILE EQUIPMENT REPAIRER) [facility] HCV RNA result Not Detected [facility] Comment: The quantifiable range of this assay is 15 IU/mL to 100,000,000 IU/mL (1.18 log IU/mL to 8.00 log IU/mL). Testing was performed by the [facility] 6800 HCV Test ([employer] Testing performed at [facility] Current Interpretive Data was last revised on 2020 Blood 01/18/2024 10:5 0 PM HEAVY MOBILE EQUIPMENT REPAIRER 01/18/2024 11:50 PM HEAVY MOBILE EQUIPMENT REPAIRER Rosalie Velásquez NP LAB MICROBIOLOGY - GENERAL ORDERABLES Final Result Performing Organization Address [facility] [place] [address] [facility] * Hepatitis B surface antibody (immune status) Blood (01/18/2024 10:50 PM HEAVY MOBILE EQUIPMENT REPAIRER) [facility] HBsAb (immune status) Reactive Comment:This result is consi stent with immunity to Hepatitis B Virus when used in the setting of routine screening. Current interpretive data was last revised on 21 HBsAb (immune status) index 1,828.0 mIUnits/m L [facility] Blood 01/18/2024 10:5 0 PM HEAVY MOBILE EQUIPMENT REPAIRER 01/18/2024 11:14 PM HEAVY MOBILE EQUIPMENT REPAIRER Rosalie Velásquez NP LAB MICROBIOLOGY - GENERAL ORDERABLES Final Result Performing Organization Address City/[facility] Co de Phone Number [facility] [place] [address] * Hepatitis B Surface Antigen Blood (01/18/2024 10:50 PM HEAVY MOBILE EQUIPMENT REPAIRER) HepBsAg Nonreactive Nonreactive Blood 01/18/2024 10:5 0 PM HEAVY MOBILE EQUIPMENT REPAIRER 01/18/2024 11:14 PM HEAVY MOBILE EQUIPMENT REPAIRER Rosalie Velásquez FREEZER UNLOADER LAB MICROBIOLOGY - GENERAL ORDERABLES Final Result Performing Organization Address [facility] Co de Phone Number [facility] [place] [address] * aPTT (01/18/2024 10:50 PM HEAVY MOBILE EQUIPMENT REPAIRER) Pathologist [facility] aPTT 31 28 - 38 sec Comment: Interpretive Data Heparin therapeutic range: 66.0 - 100.0 seconds. Range based on correlation with therapeutic heparin activity range of 0.3 - 0.7 Units/mL. Current interpretive data was last revised on 2022. Blood 01/18/2024 10:5 0 PM HEAVY MOBILE EQUIPMENT REPAIRER 01/18/2024 11:17 PM HEAVY MOBILE EQUIPMENT REPAIRER Rosalie Velásquez FREEZER UNLOADER LAB BLOOD ORDERABLES Final Result Performing Organization Address [facility] de Phone Number [facility] [place] [address] * Protime-INR (01/18/2024 10:50 PM HEAVY MOBILE EQUIPMENT REPAIRER) Pathologist [facility] PT 11.2 9.7 - 13.0 sec INR 1.04 0.90 - 1.20 [facility] Comment: Interpretive data Oral anticoagulant therapeutic ranges: Venous thromboembolism prophylaxis or treatment: 2.0-3.0 CARDIOLOGY Standard range: 2.0-3.0 High-intensity range: 2.5-3.5 Refer to indication-specific guidelines for appropriate target ranges for prosthetic heart valve replacement. Current interpretive data was last revised on 2019. Blood 01/18/2024 10:5 0 PM HEAVY MOBILE EQUIPMENT REPAIRER 01/18/2024 11:17 PM HEAVY MOBILE EQUIPMENT REPAIRER Rosalie Velásquez FREEZER UNLOADER LAB BLOOD ORDERABLES Final Result Performing Organization Address [facility] [place] [address] * Type and screen (01/18/2024 10:50 PM HEAVY MOBILE EQUIPMENT REPAIRER) ABO Rh O Negative [place], indirect Negative [facility] Blood 01/18/2024 10:5 0 PM HEAVY MOBILE EQUIPMENT REPAIRER 01/18/2024 11:13 PM HEAVY MOBILE EQUIPMENT REPAIRER Narrative [facility] - 01/19/2024 12:08 AM HEAVY MOBILE EQUIPMENT REPAIRER Has the patient had Daratumumab or Isatuximab in the past 6 months?->Unknown Rosalie Velásquez NP LAB BLOOD BANK TEST ORDERAB LES Final Result Performing Organization Address [facility] [place] [address] * Uric acid (01/18/2024 10:50 PM HEAVY MOBILE EQUIPMENT REPAIRER) Uric acid 4.2 3.0 - 8.0 mg/dL Blood 01/18/2024 10:5 0 PM HEAVY MOBILE EQUIPMENT REPAIRER 01/18/2024 11:14 PM HEAVY MOBILE EQUIPMENT REPAIRER Rosalie Velásquez FREEZER UNLOADER LAB BLOOD ORDERABLES Final Result Performing Organization Address [facility] de Phone Number [facility] [place] [address] * (ABNORMAL) Phosphorus (01/18/2024 10:50 PM HEAVY MOBILE EQUIPMENT REPAIRER) Phosphorus, pl 6.5(H) 2.3 - 4.5 mg/dL Blood 01/18/2024 10:5 0 PM HEAVY MOBILE EQUIPMENT REPAIRER 01/18/2024 11:14 PM HEAVY MOBILE EQUIPMENT REPAIRER Rosalie Velásquez FREEZER UNLOADER LAB BLOOD ORDERABLES Final Result Performing Organization Address City/[facility] [place] [address] * (ABNORMAL) Hemoglobin A1c (01/18/2024 10:50 PM HEAVY MOBILE EQUIPMENT REPAIRER) [facility] [place] Hgb A1C 6.3(H) 4.0 - 5.6 % Estimated Average Glucose 134 mg/dL [facility] Comment: The ADA recommends reporting an estimated Average Glucose (eAG) with all Hemoglobin A1c results using the equation derived from a study of 507 normal and diabetic adults. Minority populations were underrepresented and children were not included. (Diabetes Care 2020; 43(S1): S66-S76). The eAG is not equivalent to a fasting glucose. Blood 01/18/2024 10:5 0 PM HEAVY MOBILE EQUIPMENT REPAIRER 01/18/2024 11:15 PM HEAVY MOBILE EQUIPMENT REPAIRER Rosalie Velásquez FREEZER UNLOADER LAB BLOOD ORDERABLES Final Result Performing Organization Address [facility] [place] [address] * (ABNORMAL) Ferritin (01/18/2024 10:50 PM HEAVY MOBILE EQUIPMENT REPAIRER) [facility] [place] Ferritin 1,237(H) 30 - 400 ng/mL Blood 01/18/2024 10:5 0 PM HEAVY MOBILE EQUIPMENT REPAIRER 01/18/2024 11:14 PM HEAVY MOBILE EQUIPMENT REPAIRER Rosalie Velásquez LAB BLOOD ORDERABLES Final Result Performing Organization Address [facility] de Phone Number [facility] [place] [address] * (ABNORMAL) Lipid panel (01/18/2024 10:50 PM HEAVY MOBILE EQUIPMENT REPAIRER) [facility] Cholesterol 203(H) 30 - 199 mg/dL Comment: Interpretive Data Ages < or = 19 years Acceptable: <170 mg/dL Borderline high: 170-199 mg/dL High: >or= 200 mg/dL Ages > or = 20 years Desirable: <200 mg/dL Borderline high: 200-239 mg/dL High: >or= 240 mg/dL Literature References: 1. Expert Panel on Integrated Guidelines for Cardiovascular Health and Risk Reduction in Children and Adolescents. Pediatrics 2011;128:S213 2. NCEP Expert Panel. Circulation 2004;110:227 Current Interpretive Data was last revised on 2017. Triglycerides 208(H) <=149 mg/dL [facility] Comment: Interpretive Data Ages < or = 9 years Acceptable: <75 mg/dL Borderline high: 75-99 mg/dL High: >or= 100 mg/dL Ages 10 to 20 years Acceptable: <90 mg/dL Borderline high: 90-129 mg/dL High: >or= 130 mg/dL Ages > or = 20 years Desirable: <150 mg/dL Borderline high: 150-199 mg/dL High: 200-499 mg/dL Very high: >or= 499 mg/dL Literature References: 1. Expert Panel on Integrated Guidelines for Cardiovascular Health and Risk Reduction in Children and Adolescents. Pediatrics 2011;128:S213 2. NCEP Expert Panel. Circulation 2004;110:227 Current Interpretive Data was last revised on 2017. HDL 38(L) >=40 mg/dL [facility] Comment: Interpretive Data Ages < or = 19 years Acceptable: >45 mg/dL Borderline low: 40-45 mg/dL Low: <40 mg/dL Ages > or = 20 years Desirable: >or= 60 mg/dL Low: <40 mg/dL Literature References: 1. Expert Panel on Integrated Guidelines for Cardiovascular Health and Risk Reduction in Children and Adolescents. Pediatrics 2011;128:S213 2. NCEP Expert Panel. Circulation 2004;110:227 Current Interpretive Data was last revised on 2017. LDL, calculated 128 <=129 mg/dL [facility] Comment: Interpretive Data Ages < or = 19 years Acceptable: <110 mg/dL Borderline high: 110-129 mg/dL High: >or= 130 mg/dL Ages > or = 20 years Optimal: <100 mg/dL Near optimal: 100-129 mg/dL Borderline high: 130-159 mg/dL High: >160 mg/dL Calculated using the Alvarenga LDL-C estimating equation. This equation was implemented on 2023. Prior to this date LDL-C was estimated using the Friedewald equation. Literature References: 1. Expert Panel on Integrated Guidelines for Cardiovascular Health and Risk Reduction in Children and Adolescents. Pediatrics 2011;128:S213 2. NCEP Expert Panel. Circulation 2004;110:227 3. Lyle Lynne et al. SHANEKA Cardiol. 2020 June 30;5(5):540-548. doi: 10.1001/[email or web address].2020.0013 Current Interpretive Data was last revised on 2023. Non-HDL Cholesterol 165 mg/dL [facility] Comment: Interpretive Data Ages < or = 19 years Acceptable: <120 mg/dL Borderline high: 120-144 mg/dL High: >145 mg/dL Ages > or = 20 years When triglycerides are >200 mg/dL, Non-HDL cholesterol is a secondary target of therapy with treatment goals that are 30 mg/dL greater than the LDL cholesterol target. Literature References: 1. Expert Panel on Integrated Guidelines for Cardiovascular Health and Risk Reduction in Children and Adolescents. Pediatrics 2011;128:S213 2. NCEP Expert Panel. Circulation 2004;110:227 Current Interpretive Data was last revised on 2017. Chol/HDL ratio 5 [facility] Blood 01/18/2024 10:5 0 PM HEAVY MOBILE EQUIPMENT REPAIRER 01/18/2024 11:14 PM HEAVY MOBILE EQUIPMENT REPAIRER Rosalie Velásquez NP LAB BLOOD ORDERABLES Final Result [facility] [place] [address] * (ABNORMAL) Comprehensive metabolic panel (01/18/2024 10:50 PM HEAVY MOBILE EQUIPMENT REPAIRER) Sodium 142 135 - 145 mmol/L Potassium, pl 4.4 3.3 - 4.9 mmol/L [facility] Chloride 96(L) 97 - 110 mmol/L [facility] CO2 31 22 - 32 mmol/L [facility] Anion gap 15 2 - 15 mmol/L [facility] BUN 40(H) 6 - 25 mg/dL [facility] Creatinine 6.70(H) 0.80 - 1.30 mg/dL [facility] Glucose 162 70 - 199 mg/dL [facility] Comment: Interpretive Data Fasting glucose >/= 126 mg/dl is diagnostic for diabetes. Fasting is defined as no caloric intake for at least 8 hours. Fasting glucose between 100 mg/dl to 125 mg/dl is diagnostic of prediabetes. In a patient with classic symptoms of hyperglycemia or hyperglycemic crisis, a random glucose >/= 200 mg/dl is diagnostic for diabetes. In the absence of unequivocal hyperglycemia, results should be confirmed by repeat testing. The classification and Diagnosis of Diabetes Diabetes Care 2021; 46: S19-S40. Current interpretive data was last revised 2022. Calcium 10.4(H) 8.5 - 10.3 mg/dL [facility] Bilirubin, total 0.3 0.1 - 1.2 mg/dL [facility] Protein, pl 7.1 6.5 - 8.5 g/dL [facility] Albumin 4.0 3.5 - 5.0 g/dL [facility] Alk phos 187(H) 40 - 130 Units/L [facility] ALT 18 7 - 55 Units/L [facility] AST 23 10 - 50 Units/L [facility] Blood 01/18/2024 10:5 0 PM HEAVY MOBILE EQUIPMENT REPAIRER 01/18/2024 11:14 PM HEAVY MOBILE EQUIPMENT REPAIRER us Rosalie Velásquez NP LAB BLOOD ORDERABLES Final Result [facility] [place] [address] * CT Chest WO Contrast F/U Lung Screen Protocol (01/13/2024 3:25 PM HEAVY MOBILE EQUIPMENT REPAIRER) Anatomical Region Laterality Modality Chest N/A Computed Tomogra phy 01/13/2024 5:28 PM HEAVY MOBILE EQUIPMENT REPAIRER Impressions 01/13/2024 5:28 PM HEAVY MOBILE EQUIPMENT REPAIRER 1. LungRADS Category 2 (benign) S. Recommend Low dose Screening CT of chest in 12 months. 2. 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 Electronically signed by: Evan Boothe M.D. Narrative 01/13/2024 5:28 PM HEAVY MOBILE EQUIPMENT REPAIRER Examination: Low dose chest CT without intravenous contrast TECHNIQUE: Standard low-dose chest CT was performed without the use of intravenous contrast. HISTORY: Follow-up Lung screening abnormality. FINDINGS: Comparison is made to prior study of 10/20/2023 and 09/27/2022. Mild respiratory bronchiolitis is noted. Mild pleural thickening is seen with areas of rounded atelectasis sequela. Minimal reticulation is seen in the lung bases which may represent some early fibrosis. There is no consolidation. Previously identified pulmonary nodule is no longer seen. No supraclavicular, axillary or mediastinal lymphadenopathy. Heart size is moderately enlarged. Patient is status post median sternotomy for coronary artery bypass grafting. Changes of mitral valve annuloplasty are noted. The bone windows do not demonstrate any osseous lesion. Marino Quick DO IMG CT PROCEDURES Elsa l Result * PSA screen (09/17/2023 7:43 AM CDT) PSA-Total 0.74 <=5.40 ng/mL Comment: Interpretive Data AGE SEX REFERENCE INTERVAL 0 minutes-150 years Female None 0 minutes-49 years Male None 50-59 years Male 0-3.90 60-69 years Male 0-5.40 70-79 years Male 0-6.20 80-150 years Male 0-6.20 The Geovanny PSA Total assay procedure was used. Results from different manufacturers or methods may not be comparable. Serial testing should be performed using the same method. Current interpretive data last revised 21. Blood 09/17/2023 7:43 AM CDT 09/17/2023 8:59 AM CDT Henny Vázquez MD LAB BLOOD ORDERABL ES Final Result [facility] Department [place] [address] from Last 3 Months or Most Recently Relevant to Health Maintenance Insurance [facility] H[facility]/PPO Address: [facility] [address] [place] [address] MEDICARE [employer] SENIOR SUPPLEMENT MEDICARE COMMERCIAL GENERIC MEDICARE [id number] MEDICARE SUPPLEMENT MEDICARE JEANNE MEDICARE SUPPLEMENT MEDICARE Advance Directives For more information, please contact: [phone] * Full Code (Latest Code Status on File) Date Activated Date Inactivated Comments 03/22/2024 9:09 AM 03/23/2024 4:59 AM * Full Code Date Activated Date Inactivated Comments 03/08/2024 9:05 AM 03/09/2024 4:49 AM * Full Code Date Activated Date Inactivated Comments 02/21/2024 12:21 PM 02/23/2024 6:33 PM * Full Code Date Activated Date Inactivated Comments 01/20/2024 7:47 PM 01/28/2024 11:25 PM * Full Code Date Activated Date Inactivated Comments 01/18/2024 10:20 PM 01/20/2024 7:47 PM Care Teams Corporate Licensed Broker Relationship Specialty Start Date End Date Marino Quick DO [address] [place] [address] PCP - General Family Medicine 09/29/23 Aidan Yadav DO [address] [facility] [address] [place] [address] Medical Transport Specialist Cardiology 06/05/20 [place] [address] [place] [address] Urologist Urology 11/05/21 [place] [address] [place] [address] Consulting Physician Interventional Cardiology 01/09/22 Cam Harris MD [address] [place] [address] [id number] Consulting Physician Nephrology 01/07/23 Ayo Abbott MD [address] [address] [employer] Dermatology 10/09/23 Kirk Chaparro MD [address] [address] Surgeon Vascular Surgery 10/13/23 Shama Antunez RN [address] [facility] [address] [place] [address] Mailroom Manager 01/20/24
--- OUTSIDE RECORDS SUMMARY | 2024-04-19 14:00 | XMS_ITS | Referral Summary ---
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 Role Phone Aidan Yadav DO Unavailable [phone] Jovanna BUTLER MD, Susi Unavailable [phone] Frank Martin MD Unavailable [phone] Cam Harris MD Unavailable [phone] Marino Quick DO Primary Care Provider Ayo Abbott MD Unavailable [phone] Kirk Chaparro MD Unavailable [phone] Shama Antunez RN Unavailable [phone] Encounters Date Type Department Care Team Description 04/19/2024 10:20 AM SALES ORDER CLERK Lab [facility] [address] [place] [phone] Kidney replaced by transplant; Encounter for long-term (current) use of medications 04/19/2024 Telephone [facility] [address] [address] Mailstop 47-56-443 [place] [address] Carolina Ramires 04/06/2024 12:45 PM SALES ORDER CLERK Lab [facility] [address] [place] [phone] Encounter for aftercare following kidney transplant 04/06/2024 11:15 AM SALES ORDER CLERK - 04/06/2024 11:59 PM SALES ORDER CLERK Hospital Encounter [facility]) [address] [place] [address] Shortness of breath Discharge Disposition: Discharge to home or self care 04/06/2024 10:00 AM SALES ORDER CLERK Office Visit [facility] Nephrology [address] [place] [address] [facility] 5th [place] [address] [place] [address] Aurea Fine NP Encounter for aftercare following kidney transplant (Primary Dx); Shortness of breath; 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; Kidney replaced by transplant; Hypertension, unspecified type 04/06/2024 1:00 PM SALES ORDER CLERK Office Visit [facility] Cardiology [address] [place] [address] Advanced Medicine 8th [place] [address] [place] [address] Marian Merino MD Coronary artery disease involving timbi-sha shoshone coronary artery of timbi-sha shoshone heart without angina pectoris (Primary Dx); Paroxysmal atrial fibrillation (CMS/HCC) (HCC); Abnormal stress test; Essential hypertension; Mixed hyperlipidemia; ORIANA (obstructive sleep apnea) 03/24/2024 [facility] [address] [place] [address] [facility] [place] [address] Gamaliel Evans MD 03/22/2024 8:57 AM SALES ORDER CLERK - 03/22/2024 11:59 PM SALES ORDER CLERK Hospital Encounter [facility] [place] [address] [place] [address] Perinephric fluid collection Discharge Disposition: Discharge to home or self care 03/17/2024 Telephone [facility] Cardiology [address] [place] [address] 8th [place] [address] [place] [address] Marian Merino MD 03/17/2024 Telephone [facility] 1 [facility] [place] [address] Augusta Melara, SAURAV 03/16/2024 Telephone [facility] Cardiology [address] [facility] 8th [place] [address] [place] [phone] Marian Merino MD 03/10/2024 Orders Only [facility] [address] [facility] [address] Mailstop 85-99-159 [place] [address] Shama Antunez, SAURAV 03/10/2024 8:10 AM SALES ORDER CLERK Lab [facility] ([facility]) [address] [place] [address] Kidney replaced by transplant 03/10/2024 10:00 AM SALES ORDER CLERK Office Visit [facility] Radiology, Interventional Radiology [address] [facility] [address] [phone] Sue Hood PA Kidney replaced by transplant (Primary Dx); Central venous catheter in place 03/10/2024 8:40 AM SALES ORDER CLERK Office Visit [facility] Urology [address] [facility] 11th [place] [address] [place] [address] Roscoe Peck MD Encounter for removal of ureteral stent (Primary Dx) 03/08/2024 Home Care Visit [facility] - [address] [place] [phone] Dayton Tate, SAURAV SN VIRTUAL OASIS DISCHARGE 03/08/2024 Telephone [facility] Radiology, Interventional Radiology [address] [facility] [address] [phone] Clarissa Juares, SAURAV Appointment 03/08/2024 Telephone [facility] [address] [facility] [address] Mailstop 79-99-880 [place] [address] Shama Antunez, SAURAV 03/08/2024 Orders Only [facility] [address] [facility] [address] Mail[address] 90-29-910 [place] [address] Shama Antunez RN Kidney replaced by transplant (Primary Dx) 03/08/2024 8:44 AM SALES ORDER CLERK - 03/08/2024 11:59 PM SALES ORDER CLERK Hospital Encounter [facility] [place] [address] Perinephric fluid collection Discharge Disposition: Discharge to home or self care 03/08/2024 11:31 AM SALES ORDER CLERK - 03/08/2024 11:59 PM SALES ORDER CLERK Hospital Encounter [facility] [address] [place] [address] Discharge Disposition: Discharge to home or self care 03/08/2024 11:30 AM SALES ORDER CLERK - 03/08/2024 11:59 PM SALES ORDER CLERK Hospital Encounter [facility] ([facility]) [address] [place] [address] Discharge Disposition: Discharge to home or self care 03/08/2024 11:30 AM SALES ORDER CLERK - 03/08/2024 11:59 PM SALES ORDER CLERK Hospital Encounter [facility] ([facility]) [address] [place] [address] Coronary artery disease involving timbi-sha shoshone coronary artery of timbi-sha shoshone heart without angina pectoris Discharge Disposition: Discharge to home or self care 03/07/2024 Telephone [facility] 1 [place] [address] Tiffanie Milton RN 03/07/2024 9:15 AM SALES ORDER CLERK Telemedicine [facility] Nephrology [address] [place] [address] for Advanced Medicine 5th [place] [address] [place] [address] Grey Boland MD 03/04/2024 Telephone [facility] 1 [place] [address] Kirstin Soto, SAURAV 03/04/2024 Telephone [facility] 1 [place] [address] Kirstin oSto, SAURAV 03/03/2024 9:40 AM SALES ORDER CLERK - 03/03/2024 11:59 PM SALES ORDER CLERK Hospital Encounter [address] [address] Discharge Disposition: Discharge to home or self care 03/03/2024 Home Care Visit [address] [place] [address] Maria T Staley, RN TELEPHONE ENCOUNTER 03/03/2024 5:30 AM SALES ORDER CLERK Home Care Visit [address] [place] [address] Cele Mccallum SN HOME VISIT 03/01/2024 8:00 AM SALES ORDER CLERK - 03/01/2024 11:59 PM SALES ORDER CLERK Hospital Encounter [address] [address] Discharge Disposition: Discharge to home or self care 03/01/2024 7:30 AM SALES ORDER CLERK Home Care Visit [address] [place] [address] Dayton Tate RN SN HOME VISIT 02/29/2024 Orders Only [facility] [address] [facility] [address] Mailstop 19-00-910 [place] [address] Shama Antunez, SAURAV 02/29/2024 Orders Only [facility] Transplant Kidney [address] [facility] [address] [id number] [place] [address] Shama Antunez, SAURAV 02/26/2024 Telephone [facility] 1 [place] [address] Tiffanie Milton RN 02/26/2024 Orders Only [facility] 1 [place] [address] Tiffanie Milton RN 02/25/2024 Plan of Care Documentation [address] [place] [address] 02/25/2024 Telephone [facility] [address] [facility] [address] Mailstop -46-586 [place] [address] Zechariah Pabonia 02/25/2024 1:00 PM SALES ORDER CLERK Home Care Visit [address] [place] [address] Dayton Tate, SAURAV SN OASIS RESUMPTION OF CARE 02/21/2024 12:09 PM SALES ORDER CLERK - 02/23/2024 2:28 PM SALES ORDER CLERK Hospital Encounter [address] [address] Renetta Jones MD PhD Darshan Beach MD PhD Perinephric fluid collection (Primary Dx) Discharge Disposition: Discharge to home, home health skilled care 02/21/2024 Home Care Visit [address] [place] [address] Dayton Tate, SAURAV SN OASIS TRANSFER W/OUT DC 02/21/2024 Orders Only [facility] 1 [place] [address] Ruth Mehta, SAURAV 02/20/2024 Telephone [facility] Transplant Kidney [address] [facility] [address] Mailstop 71-80-942 [place] [address] Julia Javier, SAURAV After Hours 02/19/2024 Telephone [facility] Transplant Kidney [address] [facility] [address] Mailstop 63-46-127 [place] [address] Shama Antunez, SAURAV 02/19/2024 8:00 AM SALES ORDER CLERK Home Care Visit [address] [place] [address] Dayton Tate, SAURAV SN HOME VISIT 02/18/2024 Telephone [facility] [address] [facility] [address] Mailstop 74-50-027 [place] [address] Shama Antunez RN 02/17/2024 Orders Only [facility] Surgery [address] [facility] for [facility] Medicine 12th [place] [address] [place] [address] Monster Harding MD 02/17/2024 Telephone Radiology 1 [place] [address] Ayo Sharpe MD PhD 02/17/2024 Orders Only [facility] [place] [address] Susi Nuñez PA Abdominal fluid collection (Primary Dx) 02/17/2024 Telephone [facility] [address] [facility] [address] Mailstop 75-72-572 [place] [address] Shama Antunez RN 02/17/2024 11:30 AM SALES ORDER CLERK Lab [facility] for [facility] ([facility]) [address] [place] [phone] Kidney replaced by transplant 02/17/2024 10:11 AM SALES ORDER CLERK - 02/17/2024 11:59 PM SALES ORDER CLERK Hospital Encounter [facility] ([facility]) [address] [place] [address] yAush Galvez MD Swelling abdomen Discharge Disposition: Discharge to home or self care 02/17/2024 4:00 PM SALES ORDER CLERK Office Visit [facility] Cardiology [address] [facility] Advanced Medicine 8th [place] [address] [place] [address] Marian Merino MD Coronary artery disease involving timbi-sha shoshone coronary artery of timbi-sha shoshone heart without angina pectoris (Primary Dx); Atrial fibrillation, unspecified type (HCC); Essential hypertension; Mixed hyperlipidemia; Abnormal echocardiogram 02/17/2024 9:40 AM SALES ORDER CLERK Office Visit [facility] Urology [address] [facility] Advanced Medicine 11th [place] [address] [place] [address] Darshan Noriega MD -donor kidney transplant recipient (Primary Dx); Encounter for removal of ureteral stent 02/16/2024 Orders Only [facility] [address] [facility] [address] Mailstop 40-02-575 [place] [address] Carolina Ramires Kidney replaced by transplant (Primary Dx); Encounter for long-term (current) use of medications; Hyperlipidemia, unspecified hyperlipidemia type 02/16/2024 Telephone [facility] [address] [facility] [address] Mailstop 69-30-730 [place] [address] Shama Antunez RN 02/16/2024 Telephone [facility] Transplant Kidney [address] [facility] [address] Mailstop 83-66-680 [place] [address] Shama Antunez RN 02/16/2024 Telephone [facility] [address] [facility] [address] Mailstop 64-86-882 [place] [address] Shama Antunez, SAURAV 02/16/2024 Telephone [facility] [address] [facility] [address] Mailstop 67-09-557 [place] [address] Shama Antunez RN 02/16/2024 8:15 AM SALES ORDER CLERK Home Care Visit [address] [place] [address] Dayton Tate RN SN HOME VISIT 02/11/2024 9:00 AM SALES ORDER CLERK - 02/11/2024 11:59 PM SALES ORDER CLERK Hospital Encounter [address] [address] Discharge Disposition: Discharge to home or self care 02/11/2024 8:30 AM SALES ORDER CLERK Home Care Visit [address] [place] [address] Dayton Tate, SAURAV SN HOME VISIT 02/09/2024 Telephone [facility] [address] [facility] [address] Mailstop 43-41-536 [place] [address] Mervat eYung, SAURAV After Hours 02/09/2024 Telephone [facility]ney [address] [facility] [address] Mailstop 06-01-443 [place] [address] Shama Antunez, SAURAV 02/09/2024 2:40 PM SALES ORDER CLERK - 02/09/2024 11:59 PM SALES ORDER CLERK Hospital Encounter [facility]) [address] [place] [address] Kidney transplanted Discharge Disposition: Discharge to home or self care 02/09/2024 Telephone [facility] [address] [facility] [address] Mailstop 83-66-077 [place] [address] Shama Antunez RN 02/09/2024 9:00 AM SALES ORDER CLERK - 02/09/2024 11:59 PM SALES ORDER CLERK Hospital Encounter [address] [address] Kidney transplanted Discharge Disposition: Discharge to home or self care 02/09/2024 Home Care Visit [address] [place] [address] Tanya Savage, PT CASE COMMUNICATION 02/09/2024 8:30 AM SALES ORDER CLERK Home Care Visit [address] [place] [address] Dayton Tate, SAURAV SN HOME VISIT 02/09/2024 2:45 PM SALES ORDER CLERK Office Visit [facility] Nephrology [address] [facility] 5th [place] [address] [place] [address] Aurea Fine NP 02/09/2024 1:00 PM SALES ORDER CLERK Office Visit [facility] Surgery [address] [facility] 12th [place] [address] [place] [address] Aurea Hameed PA Kidney transplanted (Primary Dx) 02/08/2024 2:00 PM SALES ORDER CLERK Clinical Support [facility] [address] [phone] Type 2 diabetes mellitus with chronic kidney disease on chronic dialysis, with long-term current use of insulin (HCC) (Primary Dx) 02/08/2024 Telephone [facility] Transplant Kidney [address] [facility] [address] Mailstop 91-17-772 [place] [address] Shama Antunez RN 02/08/2024 3:15 PM SALES ORDER CLERK Office Visit [facility] [address] [place] [phone] Gamaliel Evans MD Type 2 diabetes mellitus with chronic kidney disease on chronic dialysis, with long-term current use of insulin (HCC) (Primary Dx); Primary hypothyroidism; Mixed hyperlipidemia; Coronary artery disease involving timbi-sha shoshone coronary artery of timbi-sha shoshone heart without angina pectoris; -donor kidney transplant recipient; Atrial fibrillation, unspecified type (HCC) 02/05/2024 Telephone [facility] Transplant Kidney [address] [facility] [address] Mailstop 38-00-142 [place] [address] Shama Antunez RN 02/04/2024 10:00 AM SALES ORDER CLERK - 02/04/2024 11:59 PM SALES ORDER CLERK Hospital Encounter [facility] [address] [address] Discharge Disposition: Discharge to home or self care 02/04/2024 1:45 PM SALES ORDER CLERK Home Care [place] [address] [address] [address] [place] [address] Tanya Savage, PT PT INITIAL EVALUATION 02/04/2024 8:00 AM SALES ORDER CLERK Home Care Visit [address] [place] [address] Galilea Noguera, SAURAV SN HOME VISIT 02/03/2024 Telephone [facility]ney [address] [facility] [address] Mailstop 80-53-564 [place] [address] Shama Antunez RN 02/03/2024 Orders Only [facility]ney [address] [facility] [address] Mailstop 22-69-589 [place] [address] Shama Antunez, SAURAV Kidney replaced by transplant (Primary Dx) 02/02/2024 9:00 AM SALES ORDER CLERK - 02/02/2024 11:59 PM SALES ORDER CLERK Hospital Encounter [facility] [address] [place] [address] Discharge Disposition: Discharge to home or self care 02/02/2024 Plan of Care Documentation [address] [address] [address] [place] [address] 02/02/2024 Telephone [facility]ney [address] [facility] [address] Mailstop 63-96-373 [place] [address] Shama Antunez RN 02/02/2024 9:30 AM SALES ORDER CLERK Home Care Visit [address] [address] [address] [place] [address] Dayton Tate RN SN OASIS START OF CARE 02/01/2024 Telephone [facility]ney [address] [facility] [address] Mailstop 07-36-526 [place] [address] Sofia Tineo 01/18/2024 10:11 PM SALES ORDER CLERK - 01/28/2024 7:20 PM SALES ORDER CLERK Hospital Encounter [facility] 1 [place] [address] Larry Travis MD Wellen, Jason Reid, MD -donor kidney transplant recipient (Primary Dx); Steroid-induced hyperglycemia; Coronary artery disease involving timbi-sha shoshone coronary artery of timbi-sha shoshone heart without angina pectoris; Atrial fibrillation, unspecified type (HCC) Discharge Disposition: Discharge to home, home health skilled care 01/26/2024 Orders Only [facility] Trans[facility] Kidney [address] [facility] [address] Mailstop 90-48-566 [place] [address] Michelle Bowman RN 01/22/2024 Orders Only [facility] Kidney [address] [facility] [address] Mailstop 07-25-226 [place] [address] Milly Polanco laboratory evidence of human immunodeficiency virus (HIV) (Primary Dx); Aftercare following organ transplant; History of kidney transplant 01/22/2024 Telephone [facility] Cardiology [address] [facility] 8th [place] [address] [place] [address] Ebony Juárez 01/22/2024 Telephone [facility] Kidney [address] [facility] [address] Mailstop 13-62-243 [place] [address] Carolyn Siddiqui 01/22/2024 10:05 AM SALES ORDER CLERK - 01/22/2024 12:25 PM SALES ORDER CLERK Surgery [facility] 1 [place] [phone] Ayush Galvez MD RE-EXPLORATION KIDNEY TRANSPLANT 01/22/2024 9:13 AM SALES ORDER CLERK Anesthesia Event [facility] 1 [place] [address] Mathieu Beaver MD Jablonski, Melody A., NP 01/21/2024 Telephone [facility] Trans[facility] Kidney [address] [facility] [address] Mailstop 41-19-997 [place] [address] Lynne Davies RN Waitlist Maintenance 01/21/2024 Documentation [facility] Kidney [address] [facility] [address] Mailstop 30-98-401 [place] [address] Savanna Mabry 01/20/2024 Telephone [facility] Kidney [address] [facility] [address] Mailstop -32-662 [place] [address] Mirian Villanueva RN Waitlist Maintenance (/) 01/20/2024 Orders Only [facility]ney [address] [facility] [address] Mailstop -70-112 [place] [address] Michelle Bowman RN 01/20/2024 12:47 PM SALES ORDER CLERK Anesthesia Event [facility] 1 [place] [address] Roscoe Sandhu MD Nizam, Rasheeq Rahman, MD 01/20/2024 11:50 AM SALES ORDER CLERK - 01/20/2024 4:55 PM SALES ORDER CLERK Surgery [facility] 1 [place] [address] Ayush Galvez MD TRANSPLANT KIDNEY UNOS:[id number] OPO:[id number] [[id number]] 01/19/[address] [facility] [address] [facility] [address] [place] [address] Jess Strauss [facility] 01/18/2024 Orders Only [facility] 1 [place] [address] Arya Dolan MD 01/18/2024 Telephone [facility] Kidney [address] [facility] [address] Mailstop -78-873 [place] [address] Mervat Yeung, RN Organ Offer Follow-up 01/18/2024 Telephone [facility] Kidney [address] [facility] [address] Mailstop -17-469 [place] [address] Mervat Yeung, nutritionist Organ Offer 01/18/2024 Orders Only [facility] Liver [address] [facility] [address] Mailstop -44-004 [place] [address] Rosalie Velásquez NP from Last 3 Months Allergies No known active allergies Medications hydrOXYzine (ATARAX) 25 mg tablet Take 1 tablet (25 mg total) by mouth nightly as needed (sleep) Active sertraline (ZOLOFT) 25 mg tablet Take 1 tablet (25 mg total) by mouth daily Active albuterol HFA (PROVENTIL HFA,VENTOLIN HFA,PROAIR HFA) [...] blood glucose diagnostic stripIndications :-donor kidney transplant recipient,[facility] d-induced hyperglycemia 1 strip QID with meals [...] total) by mouth daily 30 tablet 1 024 Active apixaban (ELIQUIS) 5 mg tabletIndication s:atrial [...] FINISHED YOUR 400 MG DOSE. 30 tablet 11 024 2024 Discontinued(T herapy completed) carvediloL (COREG) 3.125 mg tablet Take 1 tablet (3.125 mg total) by mouth 2 (two) times a day with meals 60 tablet 11 024 2024 Discontinued insulin glargine (LANTUS) 100 [...] Discharge Planning: Pharmacy: [facility] - [id number] in [place], [place] Specialty: [facility] Specialty Program Labs: [facility] Q-WEEKLY, FK; Q-MONTHLY BK; Q-3 ROUTINE (Exp 08/16/24) HH: [facility] Verbal Consent: Jonathan (spouse), Ramone (son), Liz ([id number]) Problem Noted Date Diagnosed Date Perinephric fluid collection 02/21/2024 Atrial fibrillation ([facility]) 02/08/2024 Overview (02/08/2024): Per cardiology Chronic atrial [...] (01/07/2022): Added automatically from request for surgery [id number] Left knee pain 08/08/2021 Primary hypothyroidism 08/08/2021 Cellulitis of right lower extremity 05/02/2021 Coronary artery disease invo lving timbi-sha shoshone heart without angina pectoris 10/25/2020 Overview (10/25/2020): Added automatically from request for surgery [id number] Diabetes mellitus 06/12/2020 Mixed hyperlipidemia 06/12/2020 Assessment & Plan (10/15/2023 11:31 AM CDT): Hyperlipidemia chronic controlled. Continue current medical management. Lower extremity edema 07/07/2018 Hyperkalemia 03/15/2018 Volume overload 03/15/2018 Anemia in stage 5 chronic ki dney disease, not on chronic dialysis 03/15/2018 ESRD (end stage renal disease) ([facility]) 018 Overview (01/25/2018): Added automatically from request for surgery [id number] Assessment & Plan (10/15/2023 11:28 AM CDT): End-stage renal disease. Continue dialysis pending renal transplant. LOLLY (renal osteodystrophy) 09/28/2017 Metabolic acidosis 09/28/2017 Essential hypertension 09/28/2017 Anemia in stage 4 chronic kidney disease 018 Stage 5 chronic kidney disease ([facility]) 018 Overview (03/10/2024): Added automatically from request for surgery [id number] Chronic renal failure, stage 4 (severe) ([facility] ) 06/15/2017 Chronic renal insufficiency, stage III [...] (02/27/2023): Mild bibasilar infiltrates Acute bronchospasm 02/27/2023 4 Pulmonary edema 12/24/2022 08/27/2023 Other chest pain 01/06/2022 08/27/2023 Immunizations Immunization Administration Dates Next Due Hep B Vaccine 10/17/2019,06/20/2019,05/16/2019 Hep B, Unspecified 04/18/2019, 9,01/17/2019,08/16,07/19/2018 Influenza, Quadrivalent, Spl it, Preservative Free, Intramuscular 12/22/2016 Influenza, Trivalent, IM (MDV) 11/08/2012 Influenza, Unspecified 12/26/2020 [facility] ([facility]) SARS-CoV-2 Vaccination 04/30/2020 Pneumococcal Conjugate PCV 13 03/02/2015 Pneumococcal Polysaccharide PPV23 04/04/2020,10/2012 Social History Tobacco Use Types Packs/Day Years [...] materials from doctor or pharmacy Never 03/08/2024 [facility] Utilities Answer Date Recorded In the past 12 months has th e [email or web address], gas, oil, or water [employer] threatened to shut off services in your [...] often do you attend chur ch or evangelical services? Never 02/22/2024 Do you belong to any clubs o r organizations such as mandaen groups, unions, fraternal or athletic groups, or [...] place to sleep or slept in a skilled nursing (including now)? No 03/25/2023 Housing Stability Vital Sign Answer Ramesh e Recorded In the last 12 months, was t here a time when you were not able to pay the mortgage or rent on time? No 02/22/2024 In the past 12 months, how m any times have you moved where you were living? 0 02/22/2024 At any time in the past [address] [facility], were you homeless or living in a skilled nursing (including now)? No 02/22/2024 Personal Safety Answer [...] on file Legal Sex Male 3:24 AM SALES ORDER CLERK Gender Identity Male 11/30/2017 3:03 PM CDT Sexual Orientation Straight 06/05/2020 6: 53 AM CDT Last Filed Vital Signs Vital Sign Reading Time Taken Comments Blood Pressure 127/67 04/06/2024 12:54 PM SALES ORDER CLERK Pulse 74 04/06/2024 12:54 PM SALES ORDER CLERK Temperature 36.6 C (97.8 F) 04/06/2024 10:21 AM SALES ORDER CLERK Respiratory Rate 16 03/22/2024 10:08 AM SALES ORDER CLERK Oxygen Saturation 94% 04/06/2024 12:54 PM SALES ORDER CLERK Inhaled Oxygen Concentration - - Weight 117.9 kg (260 lb) 04/06/2024 12:54 PM SALES ORDER CLERK Height 190.5 cm (6' 3 ) 04/06/2024 12:54 PM SALES ORDER CLERK Body Mass Index 32.5 04/06/2024 12:54 PM SALES ORDER CLERK Plan of Treatment Not on file Medical Devices Implanted Type Area Mental Health Assistant Device Identifier Shelf Expiration Date Model / Serial / Lot [employer] Angio-Seal Vip 6fr Closere Device [id number] - [id number] Implanted:Qty: 1 on 07/30/2023 by Chino Saleh MD at [facility] Other - see comments [employer] 04/01/2024 [id number] / / [id number] Stents-02/05/2007 Implanted:Qty: 2 on 02/05/2007 N/A: Heart Description:x2 [employer] 73-2623 Sternalock Uday 8 Hole Sternum Plate Bone 2.4 Mm Screw - [id number] Implanted:Qty: 3 on 11/26/2020 by Carmen Aparicio MD at [facility] N/A: Sternum [employer] 73-2623 / / [employer] 73-2416 Sternalock Uday 2.4mm 16mm Self Drill Lock Sternum Cancellous - [id number] Implanted:Qty: 16 on 11/26/2020 by Carmen Aparicio MD at [facility] N/A: Sternum [employer] [id number] / / [employer] 73-2418 Sternalock Uday 2.4mm 18mm Self Drill Lock Sternum Cancellous - [id number] Implanted:Qty: 4 on 11/26/2020 by Carmen Aparicio MD at [facility] N/A: Sternum [employer] [id number] / / [employer] 73-2420 Sternalock Uday 2.4mm 20mm Self Drill Lock Sternum Cancellous - [id number] Implanted:Qty: 4 on 11/26/2020 by Carmen Aparicio MD at [facility] N/A: Sternum [employer] [id number] / / Explanted Type Area Mental Health Assistant Device Identifier Shelf Expiration Date Model / Serial / Lot [employer] Stent Ureteral Set Double Pigtail Radiopaque Tip [employer] [id number] Polyurethane Hydrophilic Coated [id number] - [id number] Implanted:Qty: 1 on 01/20/2024 by Ayush Galvez MD at [facility] Explanted:Qty: 1 on 03/10/2024 by Roscoe Peck MD Stent Right: Transplanted Ureter [employer] [id number] 10/25/2026 [id number] / / [id number] Procedures Procedure Name Priority Date/Time Associated Diagnosis Comments EGFR Routine 04/19/2024 10:42 AM SALES ORDER CLERK Kidney replaced by transplant DIFFERENTIAL AUTO Routine 04/19/2024 10:42 AM SALES ORDER CLERK Kidney replaced by transplant CBC WITH AUTO DIFFERENTIAL Routine 04/19/2024 10:42 AM SALES ORDER CLERK Kidney replaced by transplant RENAL FUNCTION PANEL Routine 04/19/2024 10:42 AM SALES ORDER CLERK Kidney replaced by transplant DIFFERENTIAL AUTO Routine 04/06/2024 11:42 AM SALES ORDER CLERK Encounter for aftercare following kidney transplant CBC WITH AUTO DIFFERENTIAL Routine 04/06/2024 11:42 AM SALES ORDER CLERK Encounter for aftercare following kidney transplant RESPIRATORY PATHOGEN PANEL Routine 04/06/2024 11:41 AM SALES ORDER CLERK Encounter for aftercare following kidney transplant XR CHEST PA LATERAL 2 VIEWS Schedule Routine, Read Routine (OP Routine) 04/06/2024 11:28 AM SALES ORDER CLERK Shortness of breath POCT URINALYSIS DIPSTICK Routine 04/06/2024 10:35 AM SALES ORDER CLERK Encounter for aftercare following kidney transplant BK VIRUS, DNA, QUANTITATIVE Routine 04/05/2024 9:00 AM SALES ORDER CLERK Kidney replaced by transplant TACROLIMUS LEVEL, TROUGH Routine 04/05/2024 8:59 AM SALES ORDER CLERK Kidney replaced by transplant Encounter for long-term (current) use of medications RENAL FUNCTION PANEL Routine 04/05/2024 8:58 AM SALES ORDER CLERK Kidney replaced by transplant RENAL FUNCTION PANEL Routine 04/05/2024 8:57 AM SALES ORDER CLERK Kidney replaced by transplant BK VIRUS, DNA, QUANTITATIVE Routine 03/29/2024 11:28 AM SALES ORDER CLERK Kidney replaced by transplant TACROLIMUS LEVEL, TROUGH Routine 03/29/2024 11:27 AM SALES ORDER CLERK Kidney replaced by transplant Encounter for long-term (current) use of medications CBC WITH AUTO DIFFERENTIAL Routine 03/29/2024 11:26 AM SALES ORDER CLERK Kidney replaced by transplant RENAL FUNCTION PANEL Routine 03/29/2024 11:25 AM SALES ORDER CLERK Kidney replaced by transplant BK VIRUS, DNA, QUANTITATIVE Routine 03/23/2024 12:07 PM SALES ORDER CLERK Kidney replaced by transplant TACROLIMUS LEVEL, TROUGH Routine 03/23/2024 12:06 PM SALES ORDER CLERK Kidney replaced by transplant Encounter for long-term (current) use of medications CBC WITH AUTO DIFFERENTIAL Routine 03/23/2024 12:05 PM SALES ORDER CLERK Kidney replaced by transplant RENAL FUNCTION PANEL Routine 03/23/2024 12:04 PM SALES ORDER CLERK Kidney replaced by transplant ABSCESS CATHETER INJECTION Schedule Routine, Read Routine (OP Routine) 03/22/2024 10:05 AM SALES ORDER CLERK Perinephric fluid collection LIPID PANEL Routine 03/15/2024 9:49 AM SALES ORDER CLERK Kidney replaced by transplant Hyperlipidemia, unspecified hyperlipidemia type HEPATIC FUNCTION PANEL Routine 03/15/2024 9:48 AM SALES ORDER CLERK Kidney replaced by transplant BK VIRUS, DNA, QUANTITATIVE Routine 03/15/2024 9:48 AM SALES ORDER CLERK Kidney replaced by transplant TACROLIMUS LEVEL, TROUGH Routine 03/15/2024 9:47 AM SALES ORDER CLERK Kidney replaced by transplant Encounter for long-term (current) use of medications CBC WITH AUTO DIFFERENTIAL Routine 03/15/2024 9:47 AM SALES ORDER CLERK Kidney replaced by transplant RENAL FUNCTION PANEL Routine 03/15/2024 9:46 AM SALES ORDER CLERK Kidney replaced by transplant POCT URINALYSIS DIPSTICK Routine 03/10/2024 8:47 AM SALES ORDER CLERK Encounter for removal of ureteral stent EGFR Routine 03/10/2024 8:21 AM SALES ORDER CLERK Kidney replaced by transplant DIFFERENTIAL AUTO Routine 03/10/2024 8:2 1 AM SALES ORDER CLERK Kidney replaced by transplant RENAL FUNCTION PANEL Routine 03/10/2024 8:21 AM SALES ORDER CLERK Kidney replaced by transplant CBC WITH AUTO DIFFERENTIAL Routine 03/10/2024 8:21 AM SALES ORDER CLERK Kidney replaced by transplant TACROLIMUS LEVEL, RANDOM Routine 03/10/2024 8:21 AM SALES ORDER CLERK Kidney replaced by transplant MAGNESIUM Routine 03/10/2024 8:21 AM SALES ORDER CLERK Kidney replaced by transplant BK VIRUS PCR QUANTITATIVE Routine 03/10/2024 8:21 AM SALES ORDER CLERK Kidney replaced by transplant PET STRESS TEST Schedule Routine, Read Routine (OP Routine) 03/08/2024 3:12 PM SALES ORDER CLERK Coronary artery disease involving [place] coronary artery of [place] heart without angina pectoris PET/CT MYOCARDIAL PERFUSION IMAGING (MULTIPLE) Schedule Routine, Read Routine (OP Routine) 03/08/2024 3:12 PM SALES ORDER CLERK Coronary artery disease involving [place] coronary artery of [place] heart without angina pectoris ABSCESS CATHETER INJECTION Schedule Routine, Read Routine (OP Routine) 03/08/2024 11:02 AM SALES ORDER CLERK Perinephric fluid collection EGFR STAT 03/03/2024 9:40 AM SALES ORDER CLERK DIFFERENTIAL AUTO STAT 03/03/2024 9:4 0 AM SALES ORDER CLERK TACROLIMUS LEVEL, TROUGH STAT 03/03/2024 9:40 AM SALES ORDER CLERK MAGNESIUM STAT 03/03/2024 9:40 AM SALES ORDER CLERK CBC WITH AUTO DIFFERENTIAL STAT 03/03/2024 9:40 AM SALES ORDER CLERK RENAL FUNCTION PANEL STAT 03/03/2024 9:40 AM SALES ORDER CLERK EGFR Routine 03/01/2024 8:00 AM SALES ORDER CLERK RENAL FUNCTION PANEL Routine 03/01/2024 8:00 AM SALES ORDER CLERK DIFFERENTIAL AUTO Routine 03/01/2024 8:0 0 AM SALES ORDER CLERK TACROLIMUS LEVEL, TROUGH Routine 03/01/2024 8:00 AM SALES ORDER CLERK MAGNESIUM Routine 03/01/2024 8:00 AM SALES ORDER CLERK CBC WITH AUTO DIFFERENTIAL Routine 03/01/2024 8:00 AM SALES ORDER CLERK HEPATIC FUNCTION PANEL Routine 02/26/2024 8:59 AM SALES ORDER CLERK Kidney replaced by transplant LIPID PANEL Routine 02/26/2024 8:59 AM SALES ORDER CLERK Kidney replaced by transplant Hyperlipidemia, unspecified hyperlipidemia type TACROLIMUS LEVEL, TROUGH Routine 02/26/2024 8:59 AM SALES ORDER CLERK Kidney replaced by transplant Encounter for long-term (current) use of medications RENAL FUNCTION PANEL Routine 02/26/2024 8:59 AM SALES ORDER CLERK Kidney replaced by transplant CBC WITH AUTO DIFFERENTIAL Routine 02/26/2024 8:59 AM SALES ORDER CLERK Kidney replaced by transplant BK VIRUS, DNA, QUANTITATIVE Routine 02/26/2024 8:59 AM SALES ORDER CLERK Kidney replaced by transplant POCT GLUCOSE DEVICE Routine 02/23/2024 11:43 AM SALES ORDER CLERK POCT GLUCOSE DEVICE Routine 02/23/2024 8 :21 AM SALES ORDER CLERK POTASSIUM, WHOLE BLOOD STAT 02/23/2024 6:38 AM SALES ORDER CLERK ECG 12-LEAD STAT 02/23/2024 6:30 AM SALES ORDER CLERK CT ABDOMEN PELVIS WO CONTRAST IP Routine 02/23/2024 5:21 AM SALES ORDER CLERK EGFR Routine 02/23/2024 4:37 AM SALES ORDER CLERK DIFFERENTIAL AUTO Routine 02/23/2024 4:3 7 AM SALES ORDER CLERK RENAL FUNCTION PANEL Routine 02/23/2024 4:37 AM SALES ORDER CLERK CBC WITH AUTO DIFFERENTIAL Routine 02/23/2024 4:37 AM SALES ORDER CLERK MAGNESIUM Routine 02/23/2024 4:37 AM SALES ORDER CLERK TACROLIMUS LEVEL, TROUGH Routine 02/23/2024 4:37 AM SALES ORDER CLERK POCT GLUCOSE DEVICE Routine 02/22/2024 9 :35 PM SALES ORDER CLERK POCT GLUCOSE DEVICE Routine 02/22/2024 5 :37 PM SALES ORDER CLERK CELL DIFFERENTIAL, BODY FLUID Routine 02/22/2024 2:26 PM SALES ORDER CLERK CELL DIFFERENTIAL, BODY FLUID Routine 02/22/2024 2:26 PM SALES ORDER CLERK CELL COUNT W/REFLEX DIFFERENTIAL, BODY FLUID Routine 02/22/2024 2:26 PM SALES ORDER CLERK CREATININE, BODY FLUID Routine 02/22/2024 2:26 PM SALES ORDER CLERK CELL COUNT W/REFLEX DIFFERENTIAL, BODY FLUID Routine 02/22/2024 2:26 PM SALES ORDER CLERK AEROBIC AND ANAEROBIC CULTURE AND GRAM STAIN Routine 02/22/2024 2:26 PM SALES ORDER CLERK AEROBIC AND ANAEROBIC CULTURE AND GRAM STAIN Routine 02/22/2024 2:26 PM SALES ORDER CLERK CREATININE, BODY FLUID Routine 02/22/2024 2:19 PM SALES ORDER CLERK POCT GLUCOSE DEVICE Routine 02/22/2024 1 :48 PM SALES ORDER CLERK FLUID DRAIN SOFT TISSUE IP Routine 02/22/2024 1:14 PM SALES ORDER CLERK CELL DIFFERENTIAL, BODY FLUID Routine 02/22/2024 12:50 PM SALES ORDER CLERK CELL COUNT W/REFLEX DIFFERENTIAL, BODY FLUID Routine 02/22/2024 12:50 PM SALES ORDER CLERK CREATININE, BODY FLUID Routine 02/22/2024 12:50 PM SALES ORDER CLERK POCT GLUCOSE DEVICE Routine 02/22/2024 6 :27 AM SALES ORDER CLERK POTASSIUM, WHOLE BLOOD STAT 02/22/2024 6:27 AM SALES ORDER CLERK EGFR Routine 02/22/2024 4:38 AM SALES ORDER CLERK DIFFERENTIAL AUTO Routine 02/22/2024 4:3 8 AM SALES ORDER CLERK RENAL FUNCTION PANEL Routine 02/22/2024 4:38 AM SALES ORDER CLERK CBC WITH AUTO DIFFERENTIAL Routine 02/22/2024 4:38 AM SALES ORDER CLERK MAGNESIUM Routine 02/22/2024 4:38 AM SALES ORDER CLERK TACROLIMUS LEVEL, TROUGH Routine 02/22/2024 4:38 AM SALES ORDER CLERK POCT GLUCOSE DEVICE Routine 02/21/2024 8 :49 PM SALES ORDER CLERK POCT GLUCOSE DEVICE Routine 02/21/2024 5 :26 PM SALES ORDER CLERK POCT GLUCOSE DEVICE Routine 02/21/2024 2 :08 PM SALES ORDER CLERK EGFR STAT 02/21/2024 2:06 PM SALES ORDER CLERK DIFFERENTIAL AUTO STAT 02/21/2024 2:0 6 PM SALES ORDER CLERK RENAL FUNCTION PANEL STAT 02/21/2024 2:06 PM SALES ORDER CLERK PROTIME-INR STAT 02/21/2024 2:06 PM SALES ORDER CLERK MAGNESIUM STAT 02/21/2024 2:06 PM SALES ORDER CLERK CBC WITH AUTO DIFFERENTIAL STAT 02/21/2024 2:06 PM SALES ORDER CLERK ECG 12-LEAD Routine 02/17/2024 4:29 PM SALES ORDER CLERK Atrial fibrillation, unspecified type (HCC) CT ABDOMEN PELVIS WO CONTRAST Urgent 02/17/2024 11:48 AM SALES ORDER CLERK Swelling abdomen EGFR Routine 02/17/2024 10:25 AM SALES ORDER CLERK Kidney replaced by transplant DIFFERENTIAL AUTO Routine 02/17/2024 10:25 AM SALES ORDER CLERK Kidney replaced by transplant RENAL FUNCTION PANEL Routine 02/17/2024 10:25 AM SALES ORDER CLERK Kidney replaced by transplant TACROLIMUS LEVEL, RANDOM Routine 02/17/2024 10:25 AM SALES ORDER CLERK Kidney replaced by transplant MAGNESIUM Routine 02/17/2024 10:25 AM SALES ORDER CLERK Kidney replaced by transplant CBC WITH AUTO DIFFERENTIAL Routine 02/17/2024 10:25 AM SALES ORDER CLERK Kidney replaced by transplant HEPATITIS B DNA, QUANTITATIVE, PCR Routine 02/17/2024 10:25 AM SALES ORDER CLERK Kidney replaced by transplant HEPATITIS C RNA, QUANTITATIVE, PCR Routine 02/17/2024 10:25 AM SALES ORDER CLERK Kidney replaced by transplant HIV-1 RNA, QUANTITATIVE, PCR Routine 02/17/2024 10:25 AM SALES ORDER CLERK Kidney replaced by transplant EGFR STAT 02/11/2024 9:00 AM SALES ORDER CLERK DIFFERENTIAL AUTO STAT 02/11/2024 9:0 0 AM SALES ORDER CLERK TACROLIMUS LEVEL, TROUGH STAT 02/11/2024 9:00 AM SALES ORDER CLERK MAGNESIUM STAT 02/11/2024 9:00 AM SALES ORDER CLERK CBC WITH AUTO DIFFERENTIAL STAT 02/11/2024 9:00 AM SALES ORDER CLERK RENAL FUNCTION PANEL STAT 02/11/2024 9:00 AM SALES ORDER CLERK CT ABDOMEN PELVIS WO CONTRAST Schedule Routine, Read Routine (OP Routine) 02/09/2024 3:42 PM SALES ORDER CLERK Kidney transplanted CREATININE, BODY FLUID Routine 02/09/2024 3:29 PM SALES ORDER CLERK Kidney transplanted EGFR Routine 02/09/2024 9:00 AM SALES ORDER CLERK DIFFERENTIAL AUTO Routine 02/09/2024 9:0 0 AM SALES ORDER CLERK TACROLIMUS LEVEL, TROUGH Routine 02/09/2024 9:00 AM SALES ORDER CLERK MAGNESIUM Routine 02/09/2024 9:00 AM SALES ORDER CLERK CBC WITH AUTO DIFFERENTIAL Routine 02/09/2024 9:00 AM SALES ORDER CLERK RENAL FUNCTION PANEL Routine 02/09/2024 9:00 AM SALES ORDER CLERK EGFR STAT 02/04/2024 8:52 AM SALES ORDER CLERK DIFFERENTIAL AUTO STAT 02/04/2024 8:5 2 AM SALES ORDER CLERK TACROLIMUS LEVEL, TROUGH STAT 02/04/2024 8:52 AM SALES ORDER CLERK CREATININE, BODY FLUID STAT 02/04/2024 8:52 AM SALES ORDER CLERK MAGNESIUM STAT 02/04/2024 8:52 AM SALES ORDER CLERK CBC WITH AUTO DIFFERENTIAL STAT 02/04/2024 8:52 AM SALES ORDER CLERK RENAL FUNCTION PANEL STAT 02/04/2024 8:52 AM SALES ORDER CLERK EGFR Routine 02/02/2024 9:00 AM SALES ORDER CLERK DIFFERENTIAL AUTO Routine 02/02/2024 9:0 0 AM SALES ORDER CLERK TACROLIMUS LEVEL, TROUGH Routine 02/02/2024 9:00 AM SALES ORDER CLERK MAGNESIUM Routine 02/02/2024 9:00 AM SALES ORDER CLERK CBC WITH AUTO DIFFERENTIAL Routine 02/02/2024 9:00 AM SALES ORDER CLERK RENAL FUNCTION PANEL Routine 02/02/2024 9:00 AM SALES ORDER CLERK POCT GLUCOSE DEVICE Routine 01/28/2024 5 :58 PM SALES ORDER CLERK POCT GLUCOSE DEVICE Routine 01/28/2024 12:47 PM SALES ORDER CLERK POCT GLUCOSE DEVICE Routine 01/28/2024 8 :44 AM SALES ORDER CLERK EGFR Routine 01/28/2024 4:15 AM SALES ORDER CLERK DIFFERENTIAL AUTO Routine 01/28/2024 4:1 5 AM SALES ORDER CLERK TACROLIMUS LEVEL, TROUGH Routine 01/28/2024 4:15 AM SALES ORDER CLERK MAGNESIUM Routine 01/28/2024 4:15 AM SALES ORDER CLERK RENAL FUNCTION PANEL Routine 01/28/2024 4:15 AM SALES ORDER CLERK CBC WITH AUTO DIFFERENTIAL Routine 01/28/2024 4:15 AM SALES ORDER CLERK POCT GLUCOSE DEVICE Routine 01/27/2024 9 :07 PM SALES ORDER CLERK POCT GLUCOSE DEVICE Routine 01/27/2024 5 :55 PM SALES ORDER CLERK ECG 12-LEAD Routine 01/27/2024 3:35 PM SALES ORDER CLERK POCT GLUCOSE DEVICE Routine 01/27/2024 12:24 PM SALES ORDER CLERK EGFR Routine 01/27/2024 4:17 AM SALES ORDER CLERK DIFFERENTIAL AUTO Routine 01/27/2024 4:1 7 AM SALES ORDER CLERK TACROLIMUS LEVEL, TROUGH Routine 01/27/2024 4:17 AM SALES ORDER CLERK MAGNESIUM Routine 01/27/2024 4:17 AM SALES ORDER CLERK RENAL FUNCTION PANEL Routine 01/27/2024 4:17 AM SALES ORDER CLERK CBC WITH AUTO DIFFERENTIAL Routine 01/27/2024 4:17 AM SALES ORDER CLERK POCT GLUCOSE DEVICE Routine 01/26/2024 7 :59 PM SALES ORDER CLERK POCT GLUCOSE DEVICE Routine 01/26/2024 5 :15 PM SALES ORDER CLERK POCT GLUCOSE DEVICE Routine 01/26/2024 1 :48 PM SALES ORDER CLERK HEMODIALYSIS Routine 01/26/2024 12:43 PM SALES ORDER CLERK POCT GLUCOSE DEVICE Routine 01/26/2024 12:06 PM SALES ORDER CLERK TRANSFUSE RED BLOOD CELLS Timed 01/26/2024 9:00 AM SALES ORDER CLERK POCT GLUCOSE DEVICE Routine 01/26/2024 8 :25 AM SALES ORDER CLERK TYPE AND SCREEN Timed 01/26/2024 6:19 AM SALES ORDER CLERK PREPARE RBC Timed 01/26/2024 5:41 AM SALES ORDER CLERK EGFR Routine 01/26/2024 4:39 AM SALES ORDER CLERK DIFFERENTIAL AUTO Routine 01/26/2024 4:3 9 AM SALES ORDER CLERK TACROLIMUS LEVEL, TROUGH Routine 01/26/2024 4:39 AM SALES ORDER CLERK MAGNESIUM Routine 01/26/2024 4:39 AM SALES ORDER CLERK RENAL FUNCTION PANEL Routine 01/26/2024 4:39 AM SALES ORDER CLERK CBC WITH AUTO DIFFERENTIAL Routine 01/26/2024 4:39 AM SALES ORDER CLERK POCT GLUCOSE DEVICE Routine 01/25/2024 9 :33 PM SALES ORDER CLERK TROPONIN I HIGH-SENSITIVITY 6-HOUR Timed 01/25/2024 7:51 PM SALES ORDER CLERK TROPONIN I HIGH-SENSITIVITY 4-HOUR Timed 01/25/2024 6:00 PM SALES ORDER CLERK POCT GLUCOSE DEVICE Routine 01/25/2024 5 :49 PM SALES ORDER CLERK TROPONIN I HIGH-SENSITIVITY 2-HOUR Timed 01/25/2024 3:44 PM SALES ORDER CLERK XR CHEST 1 VIEW ED Urgent/IP Urgent 01/25/2024 2:52 PM SALES ORDER CLERK CBC WITHOUT DIFFERENTIAL STAT 01/25/2024 2:42 PM SALES ORDER CLERK TROPONIN I HIGH-SENSITIVITY STAT 01/25/2024 2:05 PM SALES ORDER CLERK CRITICAL RESULT CALLBACK CARDIO CHEM Routine 01/25/2024 1:46 PM SALES ORDER CLERK TROPONIN I HIGH-SENSITIVITY SERIES (BASELINE, 2HR, 4HR, 6HR) Routine 01/25/2024 1:46 PM SALES ORDER CLERK ECG 12-LEAD STAT 01/25/2024 1:31 PM SALES ORDER CLERK CREATININE, BODY FLUID Routine 01/25/2024 1:15 PM SALES ORDER CLERK POCT GLUCOSE DEVICE Routine 01/25/2024 12:46 PM SALES ORDER CLERK POCT GLUCOSE DEVICE Routine 01/25/2024 11:13 AM SALES ORDER CLERK CENTRAL LINE PLACEMENT > 5 YEARS IP Routine 01/25/2024 10:26 AM SALES ORDER CLERK POCT GLUCOSE DEVICE Routine 01/25/2024 7 :40 AM SALES ORDER CLERK DIFFERENTIAL AUTO Routine 01/25/2024 5:0 7 AM SALES ORDER CLERK EGFR Routine 01/25/2024 5:07 AM SALES ORDER CLERK TACROLIMUS LEVEL, TROUGH Routine 01/25/2024 5:07 AM SALES ORDER CLERK MAGNESIUM Routine 01/25/2024 5:07 AM SALES ORDER CLERK RENAL FUNCTION PANEL Routine 01/25/2024 5:07 AM SALES ORDER CLERK CBC WITH AUTO DIFFERENTIAL Routine 01/25/2024 5:07 AM SALES ORDER CLERK POCT GLUCOSE DEVICE Routine 01/24/2024 8 :58 PM SALES ORDER CLERK POCT GLUCOSE DEVICE Routine 01/24/2024 4 :57 PM SALES ORDER CLERK POCT GLUCOSE DEVICE Routine 01/24/2024 11:41 AM SALES ORDER CLERK POCT GLUCOSE DEVICE Routine 01/24/2024 7 :32 AM SALES ORDER CLERK DIFFERENTIAL AUTO Routine 01/24/2024 5:0 6 AM SALES ORDER CLERK EGFR Routine 01/24/2024 5:06 AM SALES ORDER CLERK TACROLIMUS LEVEL, TROUGH Routine 01/24/2024 5:06 AM SALES ORDER CLERK MAGNESIUM Routine 01/24/2024 5:06 AM SALES ORDER CLERK RENAL FUNCTION PANEL Routine 01/24/2024 5:06 AM SALES ORDER CLERK CBC WITH AUTO DIFFERENTIAL Routine 01/24/2024 5:06 AM SALES ORDER CLERK POCT GLUCOSE DEVICE Routine 01/23/2024 9 :19 PM SALES ORDER CLERK POCT GLUCOSE DEVICE Routine 01/23/2024 5 :44 PM SALES ORDER CLERK POCT GLUCOSE DEVICE Routine 01/23/2024 12:11 PM SALES ORDER CLERK HEMODIALYSIS Routine 01/23/2024 8:43 AM SALES ORDER CLERK POCT GLUCOSE DEVICE Routine 01/23/2024 8 :18 AM SALES ORDER CLERK TROPONIN I HIGH-SENSITIVITY Routine 01/23/2024 6:12 AM SALES ORDER CLERK CBC WITH AUTO DIFFERENTIAL Routine 01/23/2024 2:42 AM SALES ORDER CLERK EGFR Routine 01/23/2024 2:42 AM SALES ORDER CLERK DIFFERENTIAL AUTO Routine 01/23/2024 2:4 2 AM SALES ORDER CLERK TACROLIMUS LEVEL, TROUGH Routine 01/23/2024 2:42 AM SALES ORDER CLERK MAGNESIUM Routine 01/23/2024 2:42 AM SALES ORDER CLERK RENAL FUNCTION PANEL Routine 01/23/2024 2:42 AM SALES ORDER CLERK TROPONIN I HIGH-SENSITIVITY Routine 01/23/2024 2:41 AM SALES ORDER CLERK ECG 12-LEAD STAT 01/23/2024 1:02 AM SALES ORDER CLERK DIFFERENTIAL AUTO Routine 01/22/2024 11:14 PM SALES ORDER CLERK TROPONIN I HIGH-SENSITIVITY Routine 01/22/2024 11:14 PM SALES ORDER CLERK TROPONIN I HIGH-SENSITIVITY Routine 01/22/2024 11:14 PM SALES ORDER CLERK TYPE AND SCREEN Timed 01/22/2024 11:14 PM SALES ORDER CLERK TACROLIMUS LEVEL, TROUGH Routine 01/22/2024 11:14 PM SALES ORDER CLERK CBC WITH AUTO DIFFERENTIAL Routine 01/22/2024 11:14 PM SALES ORDER CLERK XR CHEST 1 VIEW ED Urgent/IP Urgent 01/22/2024 8:41 PM SALES ORDER CLERK POCT GLUCOSE DEVICE Routine 01/22/2024 8 :07 PM SALES ORDER CLERK POCT GLUCOSE DEVICE Routine 01/22/2024 6 :42 PM SALES ORDER CLERK TROPONIN I HIGH-SENSITIVITY 6-HOUR Timed 01/22/2024 6:40 PM SALES ORDER CLERK TRANSFUSE RED BLOOD CELLS Timed 01/22/2024 6:15 PM SALES ORDER CLERK TRANSTHORACIC ECHO (TTE) COMPLETE W DOPPLER/CF W CONTRAST STAT 01/22/2024 5:31 PM SALES ORDER CLERK TYPE AND SCREEN Timed 01/22/2024 4:14 PM SALES ORDER CLERK TROPONIN I HIGH-SENSITIVITY 4-HOUR Timed 01/22/2024 4:14 PM SALES ORDER CLERK ECG 12-LEAD STAT 01/22/2024 3:39 PM SALES ORDER CLERK CBC WITHOUT DIFFERENTIAL STAT 01/22/2024 2:07 PM SALES ORDER CLERK ECG 12-LEAD Routine 01/22/2024 12:59 PM SALES ORDER CLERK CRITICAL RESULT CALLBACK CARDIO CHEM Routine 01/22/2024 12:18 PM SALES ORDER CLERK EGFR STAT 01/22/2024 12:18 PM SALES ORDER CLERK TROPONIN I HIGH-SENSITIVITY SERIES (BASELINE, 2HR, 4HR, 6HR) Routine 01/22/2024 12:18 PM SALES ORDER CLERK PHOSPHORUS STAT 01/22/2024 12:18 PM SALES ORDER CLERK MAGNESIUM STAT 01/22/2024 12:18 PM SALES ORDER CLERK BASIC METABOLIC PANEL STAT 01/22/2024 12:18 PM SALES ORDER CLERK POCT GLUCOSE DEVICE Routine 01/22/2024 11:35 AM SALES ORDER CLERK XR ABDOMEN AP 1 VIEW IP Routine 01/22/2024 10:29 AM SALES ORDER CLERK DC AN PROCEDURE PLACEHOLDER Routine 01/22/2024 9:42 AM SALES ORDER CLERK DC AN ELECTIVE ENDOTRACHEAL AIRWAY Routine 01/22/2024 9:42 AM SALES ORDER CLERK RE-EXPLORATION KIDNEY TRANSPLANT 01/22/2024 9:18 AM SALES ORDER CLERK -donor kidney transplant recipient Case Notes 01/20@0855- Ace Bennett via phone call dos 01/21 kristal time sensitive - DMF EGFR STAT 01/22/2024 9:02 AM SALES ORDER CLERK BASIC METABOLIC PANEL STAT 01/22/2024 9:02 AM SALES ORDER CLERK POCT GLUCOSE DEVICE Routine 01/22/2024 9 :01 AM SALES ORDER CLERK POCT GLUCOSE DEVICE Routine 01/22/2024 8 :26 AM SALES ORDER CLERK LACTATE DEHYDROGENASE Routine 01/22/2024 4:58 AM SALES ORDER CLERK HAPTOGLOBIN Routine 01/22/2024 4:58 AM SALES ORDER CLERK EGFR Routine 01/22/2024 4:58 AM SALES ORDER CLERK DIFFERENTIAL AUTO Routine 01/22/2024 4:5 8 AM SALES ORDER CLERK TACROLIMUS LEVEL, TROUGH Routine 01/22/2024 4:58 AM SALES ORDER CLERK MAGNESIUM Routine 01/22/2024 4:58 AM SALES ORDER CLERK RENAL FUNCTION PANEL Routine 01/22/2024 4:58 AM SALES ORDER CLERK CBC WITH AUTO DIFFERENTIAL Routine 01/22/2024 4:58 AM SALES ORDER CLERK POCT GLUCOSE DEVICE Routine 01/21/2024 8 :34 PM SALES ORDER CLERK POCT GLUCOSE DEVICE Routine 01/21/2024 6 :37 PM SALES ORDER CLERK POTASSIUM, WHOLE BLOOD STAT 01/21/2024 4:22 PM SALES ORDER CLERK CBC WITHOUT DIFFERENTIAL STAT 01/21/2024 1:51 PM SALES ORDER CLERK POCT GLUCOSE DEVICE Routine 01/21/2024 12:26 PM SALES ORDER CLERK DC AN PROCEDURE PLACEHOLDER Routine 01/21/2024 10:41 AM SALES ORDER CLERK HEMODIALYSIS Routine 01/21/2024 9:39 AM SALES ORDER CLERK POTASSIUM LEVEL Timed 01/21/2024 8:39 AM SALES ORDER CLERK POCT GLUCOSE DEVICE Routine 01/21/2024 8 :10 AM SALES ORDER CLERK POCT GLUCOSE DEVICE Routine 01/21/2024 6 :47 AM SALES ORDER CLERK POCT GLUCOSE DEVICE Routine 01/21/2024 5 :46 AM SALES ORDER CLERK POTASSIUM, WHOLE BLOOD STAT 01/21/2024 5:22 AM SALES ORDER CLERK ECG 12-LEAD STAT 01/21/2024 5:17 AM SALES ORDER CLERK EGFR Routine 01/21/2024 4:18 AM SALES ORDER CLERK CRITICAL RESULT CALLBACK CHEMISTRY Routine 01/21/2024 4:18 AM SALES ORDER CLERK DIFFERENTIAL AUTO Routine 01/21/2024 4:1 8 AM SALES ORDER CLERK TACROLIMUS LEVEL, TROUGH Routine 01/21/2024 4:18 AM SALES ORDER CLERK MAGNESIUM Routine 01/21/2024 4:18 AM SALES ORDER CLERK RENAL FUNCTION PANEL Routine 01/21/2024 4:18 AM SALES ORDER CLERK CBC WITH AUTO DIFFERENTIAL Routine 01/21/2024 4:18 AM SALES ORDER CLERK US RENAL TRANSPLANT W DOPPLERS ED Urgent/IP Urgent 01/20/2024 11:24 PM SALES ORDER CLERK POCT GLUCOSE DEVICE Routine 01/20/2024 8 :56 PM SALES ORDER CLERK XR CHEST 1 VIEW ED Urgent/IP Urgent 01/20/2024 5:58 PM SALES ORDER CLERK EGFR STAT 01/20/2024 5:08 PM SALES ORDER CLERK RENAL FUNCTION PANEL STAT 01/20/2024 5:08 PM SALES ORDER CLERK CBC WITHOUT DIFFERENTIAL STAT 01/20/2024 5:08 PM SALES ORDER CLERK POCT GLUCOSE DEVICE Routine 01/20/2024 4 :51 PM SALES ORDER CLERK POC BLOOD GAS AND CHEMISTRIES, ARTERIAL Routine 01/20/2024 4:23 PM SALES ORDER CLERK TRANSFUSE RED BLOOD CELLS Timed 01/20/2024 3:54 PM SALES ORDER CLERK POC BLOOD GAS AND CHEMISTRIES, ARTERIAL Routine 01/20/2024 3:09 PM SALES ORDER CLERK POCT GLUCOSE DEVICE Routine 01/20/2024 2:41 PM SALES ORDER CLERK ANESTHESIA CENTRAL VENOUS LINE PLACEMENT Routine 01/20/2024 2:37 PM SALES ORDER CLERK ANESTHESIA INTUBATION Routine 01/20/2024 1:37 PM SALES ORDER CLERK TRANSPLANT KIDNEY 01/20/2024 12:46 PM SALES ORDER CLERK ESRD (end stage renal disease) (CMS/HCC) ([facility]) Case Notes ORT TIME: TBDUNOS#[id number]:MWOBMatch ID#: [id number] Group:OTransplant Coordinator: Mervat [phone] POCT GLUCOSE DEVICE Routine 01/20/2024 11:12 AM SALES ORDER CLERK HLA DONOR SPECIFIC ANTIBODY REPORT 01/20/2024 7:31 AM SALES ORDER CLERK EGFR Routine 01/20/2024 12:08 AM SALES ORDER CLERK BASIC METABOLIC PANEL Routine 01/20/2024 12:08 AM SALES ORDER CLERK HEMODIALYSIS Routine 01/19/2024 6:44 PM SALES ORDER CLERK XR ANKLE RIGHT 3 OR MORE VIEWS IP Routine 01/19/2024 12:37 PM SALES ORDER CLERK XR TIBIA FIBULA RIGHT2 VIEWS IP Routine 01/19/2024 12:37 PM SALES ORDER CLERK URINE CULTURE Routine 01/19/2024 8:50 AM SALES ORDER CLERK PREPARE RBC Timed 01/19/2024 6:31 AM SALES ORDER CLERK HLA CROSSMATCH REPORT 01/18/2024 11:43 PM SALES ORDER CLERK HLA ANTIBODY SCREEN - SAB (CLASS I AND CLASS II) Routine 01/18/2024 11:43 PM SALES ORDER CLERK HLA CROSSMATCH, ALLO STAT 01/18/2024 11:43 PM SALES ORDER CLERK HLA ANTIBODY SCREEN BY PRA OR SAB PER SCHEDULE (CLASS I AND CLASS II) STAT 01/18/2024 11:43 PM SALES ORDER CLERK XR CHEST 1 VIEW ED Urgent/IP Urgent 01/18/2024 11:41 PM SALES ORDER CLERK EGFR STAT 01/18/2024 10:50 PM SALES ORDER CLERK DIFFERENTIAL AUTO STAT 01/18/2024 10:50 PM SALES ORDER CLERK HLA ANTIBODY SCREEN BY PRA STAT 01/18/2024 10:50 PM SALES ORDER CLERK IRON PROFILE W/ IBC Routine 01/18/2024 10:50 PM SALES ORDER CLERK LIPID PANEL Routine 01/18/2024 10:50 PM SALES ORDER CLERK URIC ACID Routine 01/18/2024 10:50 PM SALES ORDER CLERK HEMOGLOBIN A1C Routine 01/18/2024 10:50 PM SALES ORDER CLERK FERRITIN Routine 01/18/2024 10:50 PM SALES ORDER CLERK TYPE AND SCREEN STAT 01/18/2024 10:50 PM SALES ORDER CLERK PHOSPHORUS STAT 01/18/2024 10:50 PM SALES ORDER CLERK PROTIME-INR STAT 01/18/2024 10:50 PM SALES ORDER CLERK COMPREHENSIVE METABOLIC PANEL STAT 01/18/2024 10:50 PM SALES ORDER CLERK CBC WITH AUTO DIFFERENTIAL STAT 01/18/2024 10:50 PM SALES ORDER CLERK APTT STAT 01/18/2024 10:50 PM SALES ORDER CLERK HIV 1/2 ANTIBODY PLUS P24 ANTIGEN Routine 01/18/2024 10:50 PM SALES ORDER CLERK HEPATITIS C RNA, QUANTITATIVE, PCR Routine 01/18/2024 10:50 PM SALES ORDER CLERK HEPATITIS C ANTIBODY Routine 01/18/2024 10:50 PM SALES ORDER CLERK HEPATITIS B SURFACE ANTIGEN Routine 01/18/2024 10:50 PM SALES ORDER CLERK HEPATITIS B SURFACE ANTIBODY (IMMUNE STATUS) Routine 01/18/2024 10:50 PM SALES ORDER CLERK HEPATITIS B CORE ANTIBODY, TOTAL Routine 01/18/2024 10:50 PM SALES ORDER CLERK CT CHEST WO CONTRAST F/U LUNG SCREEN PROTOCOL Schedule Routine, Read Routine (OP Routine) 01/13/2024 3:25 PM SALES ORDER CLERK Abnormal CT lung screening PSA SCREEN Routine 09/17/2023 7:43 AM CDT ESRD (end stage renal disease) (CMS/HCC) (HCC) Pre-transplant evaluation for kidney transplant from Last 3 Months or Most Recently Relevant to Health Maintenance Results * (ABNORMAL) eGFR (04/19/2024 10:42 AM SALES ORDER CLERK) eGFR 24(L) >=60 mL/min/1. 73 m2 Comment: [...] reviewed 2020. Blood 04/19/2024 10:4 2 AM SALES ORDER CLERK 04/19/2024 11:14 AM SALES ORDER CLERK us Jack Morrison MD LAB BLOOD ORDERABLES Final R esult [facility] [place] [address] * (ABNORMAL) Differential, auto (04/19/2024 10:42 AM SALES ORDER CLERK) Neutrophil abs 13.1(H) 1.5 - 6.5 K/cumm Imm gran abs 0.9(H) 0.0 - 0.1 K/cumm [facility] Lymphocyte abs 0.3(L) 0.8 - 3.3 K/cumm [facility] Monocyte abs 0.6 0.2 - 0.8 K/cumm [facility] Eosinophil abs 0.0 0.0 - 0.5 K/cumm [facility] Basophil abs 0.1 0.0 - 0.1 K/cumm [facility] Neutrophil pct 87.8 % [facility] Comment: Interpretive Data Percent cell count reference ranges are not reported, since discordance with absolute values may lead to misinterpretation of CBC data. Current Interpretive Data was last revised on 2017. Imm gran pct 5.8 % [facility] Comment: Interpretive Data Percent cell count reference ranges are not reported, since discordance with absolute values may lead to misinterpretation of CBC data. Current Interpretive Data was last revised on 2017. Lymphocyte pct 1.8 % [facility] Comment: Interpretive Data Percent cell count reference ranges are not reported, since discordance with absolute values may lead to misinterpretation of CBC data. Current Interpretive Data was last revised on 2017. Monocyte pct 4.0 % [facility] Comment: Interpretive Data Percent cell count reference ranges are not reported, since discordance with absolute values may lead to misinterpretation of CBC data. Current Interpretive Data was last revised on 2017. Eosinophil pct 0.1 % [facility] Comment: Interpretive Data Percent cell count reference ranges are not reported, since discordance with absolute values may lead to misinterpretation of CBC data. Current Interpretive Data was last revised on 2017. Basophil pct 0.5 % [facility] Comment: Interpretive Data Percent cell count reference ranges are not reported, since discordance with absolute values may lead to misinterpretation of CBC data. Current Interpretive Data was last revised on 2017. Blood 04/19/2024 10:4 2 AM SALES ORDER CLERK 04/19/2024 11:14 AM SALES ORDER CLERK Jack Morrison MD LAB BLOOD ORDERABLES Final R esult Performing Organization Address City/[facility]/ZIP Co de Phone Number [facility] [place] [employer] [place] [address] * (ABNORMAL) CBC with auto differential (04/19/2024 10:42 AM SALES ORDER CLERK) WBC 14.9(H) 3.8 - 9.9 K/cumm Hgb 11.6(L) 13.0 - 17.5 g/dL [facility] Hct 35.5(L) 38.9 - 50.3 % [facility] Plt 281 150 - 400 K/cumm [facility] MPV 10.2 9.1 - 12.3 fL [facility] RBC 3.79(L) 4.30 - 5.80 M/cumm [facility] MCV 93.7 81.3 - 96.4 fL [facility] MCH 30.6 27.1 - 33.3 pg [facility] MCHC 32.7 32.3 - 35.7 g/dL [facility] RDW CV 13.5 11.1 - 14.9 % [facility] RDW SD 45.1 35.7 - 48.1 fL [facility] NRBC abs 0.00 0.00 - 0.01 K/cumm [facility] Blood 04/19/2024 10:4 2 AM SALES ORDER CLERK 04/19/2024 11:14 AM SALES ORDER CLERK Jack Morrison MD LAB BLOOD ORDERABLES Final R esult Performing Organization Address City/[facility]/ZIP Co de Phone Number [facility] [place] [address] * (ABNORMAL) Renal function panel (04/19/2024 10:42 AM SALES ORDER CLERK) Pathologist [facility] [place] Sodium 138 135 - 145 mmol/L Potassium, pl 4.7 3.3 - 4.9 mmol/L [facility] Chloride 99 97 - 110 mmol/L [facility] CO2 29 22 - 32 mmol/L [facility] Anion gap 10 2 - 15 mmol/L [facility] BUN 38(H) 6 - 25 mg/dL [facility] Creatinine 2.80(H) 0.80 - 1.30 mg/dL [facility] Glucose 125 70 - 199 mg/dL [facility] Comment: Interpretive Data Fasting glucose >/= 126 [...] 2022. Calcium 10.7(H) 8.5 - 10.3 mg/dL [facility] Phosphorus, pl 2.5 2.3 - 4.5 mg/dL [facility] Albumin 3.9 3.5 - 5.0 g/dL [facility] Blood 04/19/2024 10:4 2 AM SALES ORDER CLERK 04/19/2024 11:14 AM SALES ORDER CLERK us Jack Morrison MD LAB BLOOD ORDERABLES Final R esult [facility] [place] [address] * (ABNORMAL) Differential, auto (04/06/2024 11:42 AM SALES ORDER CLERK) Neutrophil abs 9.1(H) 1.5 - 6.5 K/cumm Imm gran abs 0.7(H) 0.0 - 0.1 K/cumm [facility] Lymphocyte abs 0.2(L) 0.8 - 3.3 K/cumm [facility] Monocyte abs 0.5 0.2 - 0.8 K/cumm [facility] Eosinophil abs 0.0 0.0 - 0.5 K/cumm [facility] Basophil abs 0.0 0.0 - 0.1 K/cumm [facility] Neutrophil pct 86.6 % [facility] Comment: Interpretive Data Percent cell count reference ranges are not reported, since discordance with absolute values may lead to misinterpretation of CBC data. Current Interpretive Data was last revised on 2017. Imm gran pct 6.5 % [facility] Comment: Interpretive Data Percent cell count reference ranges are not reported, since discordance with absolute values may lead to misinterpretation of CBC data. Current Interpretive Data was last revised on 2017. Lymphocyte pct 1.4 % [facility] Comment: Interpretive Data Percent cell count reference ranges are not reported, since discordance with absolute values may lead to misinterpretation of CBC data. Current Interpretive Data was last revised on 2017. Monocyte pct 4.9 % [facility] Comment: Interpretive Data Percent cell count reference ranges are not reported, since discordance with absolute values may lead to misinterpretation of CBC data. Current Interpretive Data was last revised on 2017. Eosinophil pct 0.3 % [facility] Comment: Interpretive Data Percent cell count reference ranges are not reported, since discordance with absolute values may lead to misinterpretation of CBC data. Current Interpretive Data was last revised on 2017. Basophil pct 0.3 % [facility] Comment: Interpretive Data Percent cell count reference ranges are not reported, since discordance with absolute values may lead to misinterpretation of CBC data. Current Interpretive Data was last revised on 2017. Blood 04/06/2024 11:4 2 AM SALES ORDER CLERK 04/06/2024 11:58 AM SALES ORDER CLERK us Aurea Fine NP LAB BLOOD ORDERABLES Final Result [facility] [place] [address] * (ABNORMAL) CBC with auto differential (04/06/2024 11:42 AM SALES ORDER CLERK) [facility] WBC 10.5(H) 3.8 - 9.9 K/cumm Hgb 11.5(L) 13.0 - 17.5 g/dL [facility] Hct 34.3(L) 38.9 - 50.3 % [facility] Plt 251 150 - 400 K/cumm [facility] MPV 10.1 9.1 - 12.3 fL [facility] RBC 3.60(L) 4.30 - 5.80 M/cumm [facility] MCV 95.3 81.3 - 96.4 fL [facility] MCH 31.9 27.1 - 33.3 pg [facility] MCHC 33.5 32.3 - 35.7 g/dL [facility] RDW CV 12.8 11.1 - 14.9 % [facility] RDW SD 44.4 35.7 - 48.1 fL [facility] NRBC abs 0.00 0.00 - 0.01 K/cumm [facility] Blood 04/06/2024 11:4 2 AM SALES ORDER CLERK 04/06/2024 11:58 AM SALES ORDER CLERK Aurea Fine NP LAB BLOOD ORDERABLES Final Result Performing Organization Address City/State/[facility] Co de Phone Number [facility] One [facility] [place] [address] * (ABNORMAL) Respiratory pathogen panel Nasopharyngeal (04/06/2024 11:41 AM SALES ORDER CLERK) [facility] Influenza A RNA Not Detected Not Detected Influenza B RNA Not Detected Not Detected [facility] RSV RNA Not Detected Not Detected [facility] COVID-19 RNA Not Detected Not Detected [facility] Coronavirus 229E RNA Not Detected Not Detected [facility] Coronavirus HKU1 RNA Not Detected Not Detected [facility] Coronavirus NL63 RNA Not Detected Not Detected [facility] Coronavirus OC43 RNA Not Detected Not Detected [facility] Adenovirus DNA Not Detected Not Detected [facility] Metapneumovirus RNA Not Detected Not Detected [facility] Rhinovirus/Enterov irus RNA Detected(A) Not Detected [facility] Parainfluenza 1 RNA Not Detected Not Detected [facility] Parainfluenza 2 RNA Not Detected Not Detected [facility] Parainfluenza 3 RNA Not Detected Not Detected [facility] Parainfluenza 4 RNA Not Detected Not Detected [facility] B. pertussis DNA Not Detected Not Detected [facility] B. parapertussis DNA Not Detected Not Detected [facility] C. pneumoniae DNA Not Detected Not Detected [facility] M. pneumoniae DNA Not Detected Not Detected [facility] Nasopharyngeal 04/06/2024 11 :41 AM SALES ORDER CLERK 04/06/2024 12:10 PM SALES ORDER CLERK Narrative [facility] - 04/06/2024 1:15 PM SALES ORDER CLERK Is the Patient experiencing symptoms consistent with COVID?->Unknown Surveillance testing for transplant patient?->No Interpretive Data [employer] Respiratory Panel (RP2.1) assay is a multiplexed [...] assay has FDA clearance for testing of [employer] swabs. The performance of additional specimen types has been assessed by the performing laboratory. The performance characteristics of this assay have been determined by [facility] Molecular Infectious Disease Laboratory. Current interpretive data was last revised on 21. Aurea Fine [employer] LAB MICROBIOLOGY - GENERAL ORDERABLES Final Result Performing Organization Address City/State/ZIP Co nv Phone Number [facility] [place] [address] * XR Chest PA Lateral 2 Views (04/06/2024 11:28 AM SALES ORDER CLERK) Anatomical Region Laterality Modality Body, Chest N/A Computed Radiogr aphy 04/06/2024 11:4 3 AM SALES ORDER CLERK Impressions 04/06/2024 6:32 PM SALES ORDER CLERK FINDINGS/IMPRESSION: Sternotomy plates and wires overlie the chest. Lungs are clear. No pleural effusion or pneumothorax. Cardiac mediastinal silhouette is stable when compared to prior radiograph. Dictated by: Giorgi Rincon MD The radiology attending physician has personally reviewed this study, and had reviewed and/or edited this written report and agrees with it. Electronically signed by: Larry Red M.D. Narrative 04/06/2024 6:32 PM SALES ORDER CLERK EXAMINATION: XR CHEST PA LATERAL 2 VIEWS [...] signed by: Larry Red M.D. Aurea Fine [employer] IMG XR PROCEDURES Final Re sult * (ABNORMAL) POCT urinalysis dipstick (04/06/2024 10:35 AM SALES ORDER CLERK) [facility] Glucose, ur, POC Negative Negative MG/DL Bilirubin, ur, POC Negative Negative, Small, Moderate, Large Ketones, ur, POC Negative Negative Specific Twain, POC 1.025 1.003 - 1.030 Blood, ur, POC Negative Negative pH, ur, POC 5.5 5.0 - 8.0 Protein, ur, POC 1+(A) Negative Urobilinogen, urine, POC 0.2 0.2 - 1.0 mg/dL Nitrite, ur, POC Negative Negative Leukocytes, ur, POC 1+(A) Negative Lot Number [id number] Urine 04/06/2024 10:3 5 AM SALES ORDER CLERK Aurea Fine NP POINT OF CARE TEST ORDERAB LES Final Result * BK virus, DNA, quantitative Blood (04/05/2024 9:00 AM SALES ORDER CLERK) [facility] BK Virus DNA, PCR Negative Negative IU/mL [facility] - 01 Comment: No BK DNA detected. The linear range of the assay is 22 - 100,000,000 IU/mL. Blood 04/05/2024 9:00 AM SALES ORDER CLERK 04/05/2024 Narrative [facility] - 04/07/2024 2:09 PM SALES ORDER CLERK Performed at: [address] [place] [id number] Lounge Car Attendant: Agustina Tyler MD, Phone: [phone] Jack Morrison MD LAB MICROBIOLOGY - GENERAL O RDERABLES Final Result Performing Organization Address [facility] Co de Phone Number [facility] - * Tacrolimus level trough (04/05/2024 8:59 AM SALES ORDER CLERK) Tacrolimus (FK506), Blood 11.7 5.0 - 20.0 ng/mL [facility] - 01 Comment: Target steady state trough [...] reference interval change Blood 04/05/2024 8:59 AM SALES ORDER CLERK 04/05/2024 Narrative [facility] - 04/07/2024 8:07 PM SALES ORDER CLERK Test(s) [id number] (FK506), Blood was developed and its performance characteristics determined by [employer] It has not been cleared or approved by the Food and Drug Administration. Performed at: - [address] [id number] Lounge Car Attendant: Agustina Tyler MD, Phone: [phone] Jack Morrison MD LAB BLOOD ORDERABLES Final R esult Performing Organization Address [facility] Co de Phone Number [facility] - * (ABNORMAL) Renal function panel (04/05/2024 8:58 AM SALES ORDER CLERK) Glucose 129(H) 70 - 99 mg/dL [facility] [...] [facility] - 01 Blood 04/05/2024 8:58 AM SALES ORDER CLERK 04/05/2024 Narrative [facility] - 04/06/2024 4:07 AM SALES ORDER CLERK Performed at: [address] [id number] Lounge Car Attendant: Prabhjot Trammell PhD, Phone: [phone] us Jack Morrison MD LAB BLOOD ORDERABLES Final R esult [facility] - 01 * (ABNORMAL) Renal function panel (04/05/2024 8:57 AM SALES ORDER CLERK) Glucose 124(H) 70 - 99 mg/dL [facility] [...] [facility] - 01 Blood 04/05/2024 8:57 AM SALES ORDER CLERK 04/05/2024 Narrative [facility] - 04/06/2024 4:07 AM SALES ORDER CLERK Performed at: [address] [id number] Lounge Car Attendant: Prabhjot Trammell PhD, Phone: [phone] Jack Morrison MD LAB BLOOD ORDERABLES Final R esult Performing Organization Address [facility] Co de Phone Number [facility] - * BK virus, DNA, quantitative Blood (03/29/2024 11:28 AM SALES ORDER CLERK) Pathologist [facility] [place] BK Virus DNA, PCR Negative Negative IU/mL [facility] - Comment: No BK DNA detected. The linear range of the assay is 22 - 100,000,000 IU/mL. Blood 03/29/2024 11:2 8 AM SALES ORDER CLERK 03/29/2024 Narrative [facility] - 03/31/2024 2:09 PM SALES ORDER CLERK Performed at: [address] [id number] Lounge Car Attendant: Agustina Tyler MD, Phone: [phone] Jack Morrison MD LAB MICROBIOLOGY - GENERAL O RDERABLES Final Result Performing Organization Address [facility] de Phone Number [facility] - * Tacrolimus level trough (03/29/2024 11:27 AM SALES ORDER CLERK) Pathologist [facility] [place] Tacrolimus (FK506), Blood 4.6 2.0 - 20.0 ng/mL [facility] - 01 Comment: Trough (immediately following transplant) 15.0 Trough (steady state, 2 weeks or more after transplant): 3.0 - 8.0 Performed by LC-MS/MS technology. Effective April 02, 2024 the reference interval for Tacrolimus will be updated to: 5.0 - 20.0 ng/mL Blood 03/29/2024 11:2 7 AM SALES ORDER CLERK 03/29/2024 Narrative [facility] - 04/01/2024 4:09 PM SALES ORDER CLERK Test(s) [id number] (FK506), Blood was developed and its performance characteristics determined by [facility]. It has not been cleared or approved by the Food and Drug Administration. Performed at: [address] [id number] Lounge Car Attendant: Agustina Tyler MD, Phone: [phone] us Jack Morrison MD LAB BLOOD ORDERABLES Final R esult [facility] - 01 * (ABNORMAL) CBC with auto differential (03/29/2024 11:26 AM SALES ORDER CLERK) WBC 4.7 3.4 - 10.8 x10E3/uL [facility] [...] was performed. Blood 03/29/2024 11:2 6 AM SALES ORDER CLERK 03/29/2024 Narrative [facility] - 03/30/2024 3:07 AM SALES ORDER CLERK Performed at: [address] [id number] Lounge Car Attendant: Prabhjot Trammell PhD, Phone: [phone] us Jack Morrison MD LAB BLOOD ORDERABLES Final R esult [facility] * (ABNORMAL) Renal function panel (03/29/2024 11:25 AM SALES ORDER CLERK) Glucose 113(H) 70 - 99 mg/dL [facility] [...] - 01 Blood 03/29/2024 11:2 5 AM SALES ORDER CLERK 03/29/2024 Narrative [facility] - 03/30/2024 2:09 PM SALES ORDER CLERK Performed at: [address] [id number] Lounge Car Attendant: Prabhjot Trammell PhD, Phone: [phone] Jack Morrison MD LAB BLOOD ORDERABLES Final R esult Performing Organization Address [facility] Co de Phone Number [facility] - * BK virus, DNA, quantitative Blood (03/23/2024 12:07 PM SALES ORDER CLERK) Pathologist [facility] [place] BK Virus DNA, PCR Negative Negative IU/mL [facility] Comment: No BK DNA detected. The linear range of the assay is 22 - 100,000,000 IU/mL. Blood 03/23/2024 12:0 7 PM SALES ORDER CLERK 03/23/2024 Narrative [facility] - 03/25/2024 12:09 PM SALES ORDER CLERK Performed at: [address] [place] [id number] Lounge Car Attendant: Agustina Tyler MD, Phone: [phone] Jack Morrison MD LAB MICROBIOLOGY - GENERAL O RDERABLES Final Result Performing Organization Address [facility] Co de Phone Number [facility] * Tacrolimus level trough (03/23/2024 12:06 PM SALES ORDER CLERK) [facility] Tacrolimus (FK506), Blood 5.9 2.0 - 20.0 ng/mL [facility] - Comment: Trough (immediately following transplant) 15.0 Trough (steady state, 2 weeks or more after transplant): 3.0 - 8.0 Performed by LC-MS/MS technology. Effective April 02, 2024 the reference interval for Tacrolimus will be updated to: 5.0 - 20.0 ng/mL Blood 03/23/2024 12:0 6 PM SALES ORDER CLERK 03/23/2024 Narrative [facility] - 03/26/2024 8:07 PM SALES ORDER CLERK Test(s) [id number] (FK506), Blood was developed and its performance characteristics determined by [employer]. It has not been cleared or approved by the Food and Drug Administration. Performed at: [address] [place] [id number] Lounge Car Attendant: Agustina Tyler MD, Phone: [phone] us Jack Morrison MD LAB BLOOD ORDERABLES Final R esult [facility] - 01 * (ABNORMAL) CBC with auto differential (03/23/2024 12:05 PM SALES ORDER CLERK) WBC 7.0 3.4 - 10.8 x10E3/uL [facility] [...] clinical significance.) Blood 03/23/2024 12:0 5 PM SALES ORDER CLERK 03/23/2024 Narrative [facility] - 03/24/2024 6:09 AM SALES ORDER CLERK Performed at: [address] [id number] Lounge Car Attendant: Prabhjot Trammell PhD, Phone: [phone] us Jack Morrison MD LAB BLOOD ORDERABLES Final [facility] * (ABNORMAL) Renal function panel (03/23/2024 12:04 PM SALES ORDER CLERK) Glucose 115(H) 70 - 99 mg/dL [facility] [...] - 01 Blood 03/23/2024 12:0 4 PM SALES ORDER CLERK 03/23/2024 Narrative [facility] - 03/24/2024 9:36 AM SALES ORDER CLERK Performed at: [address] [id number] Lounge Car Attendant: Prabhjot Trammell PhD, Phone: [phone] us Jack Morrison MD LAB BLOOD ORDERABLES Final R esult [facility] - 01 * IR Inject Abscess Catheter (03/22/2024 10:05 AM SALES ORDER CLERK) Anatomical Region Laterality Modality Body N/A Radio Fluoroscop y 03/22/2024 10:1 6 AM SALES ORDER CLERK Impressions 03/22/2024 10:16 AM SALES ORDER CLERK Resolved collection with no evidence of fistula to adjacent structures. Catheter was removed. PLAN: Advise patient to monitor for any new symptoms. He will follow up with us as needed. If questions arise, please contact us by calling [phone]. Electronically signed by: Radha Barrios PA-C Narrative 03/22/2024 10:16 AM SALES ORDER CLERK EXAMINATION: DRAINAGE CATHETER EVALUATION AND REMOVAL HISTORY: [...] None TECHNIQUE: Prior to beginning the procedure, Austin Protocol was used to confirm the patient's identity and planned procedure. Fluoroscopy time has been recorded in the electronic medical record. After obtaining a pan puller image, the catheter was injected with dilute [...] None TECHNIQUE: Prior to beginning the procedure, Austin Protocol was used to confirm the patient's identity and planned procedure. Fluoroscopy time has been recorded in the electronic medical record. After obtaining a pan puller image, the catheter was injected with dilute [...] questions arise, please contact us by calling [phone]. Electronically signed by: Radha Barrios PA-C us Flori LEE IMG IR PROCEDURES Final Res ult * Lipid panel (03/15/2024 9:49 AM SALES ORDER CLERK) Cholesterol 106 100 - 199 mg/dL [facility] - 01 Triglycerides 88 0 - 149 mg/dL [facility] - 01 HDL Cholesterol 44 >39 mg/dL [facility] - 01 VLDL 17 5 - 40 mg/dL [facility] - 01 LDL, calculated 45 0 - 99 mg/dL [facility] - 01 Blood 03/15/2024 9:49 AM SALES ORDER CLERK 03/15/2024 Narrative [facility] - 03/16/2024 3:07 AM SALES ORDER CLERK Performed at: [facility] [address] [id number] Lounge Car Attendant: Prabhjot Trammell PhD, Phone: [phone] Jack Morrison MD LAB BLOOD ORDERABLES Final R esult Performing Organization Address City/[facility]/ZIP Co de Phone Number [facility] - * BK virus, DNA, quantitative Blood (03/15/2024 9:48 AM SALES ORDER CLERK) [facility] BK Virus DNA, PCR Negative Negative IU/mL [facility] - Comment: No BK DNA detected. The linear range of the assay is 22 - 100,000,000 IU/mL. Blood 03/15/2024 9:48 AM SALES ORDER CLERK 03/15/2024 Narrative [facility] - 03/18/2024 12:09 PM SALES ORDER CLERK Performed at: [address] [place] [id number] Lounge Car Attendant: Agustina Tyler MD, Phone: [phone] Jack Morrison MD LAB MICROBIOLOGY - GENERAL O RDERABLES Final Result Performing Organization Address [facility] Co de Phone Number [facility] - * (ABNORMAL) Hepatic function panel (03/15/2024 9:48 AM SALES ORDER CLERK) [facility] Protein, sr 6.4 6.0 - 8.5 g/dL [...] [facility] - 01 Blood 03/15/2024 9:48 AM SALES ORDER CLERK 03/15/2024 Narrative [facility] - 03/16/2024 4:07 AM SALES ORDER CLERK Performed at: [address] [place] [id number] Lounge Car Attendant: Prabhjot Trammell PhD, Phone: [phone] Jack Morrison MD LAB BLOOD ORDERABLES Final [facility] Performing Organization Address [facility] Co de Phone Number [facility] - * Tacrolimus level trough (03/15/2024 9:47 AM SALES ORDER CLERK) Pathologist [facility] [place] Tacrolimus (FK506), Blood 4.4 2.0 - 20.0 ng/mL [facility] - 01 Comment: Trough (immediately following transplant) 15.0 Trough (steady state, 2 weeks or more after transplant): 3.0 - 8.0 Performed by LC-MS/MS technology. Effective April 02, 2024 the reference interval for Tacrolimus will be updated to: 5.0 - 20.0 ng/mL Blood 03/15/2024 9:47 AM SALES ORDER CLERK 03/15/2024 Narrative [facility] - 03/19/2024 12:08 PM SALES ORDER CLERK Test(s) [id number] ([id number]), Blood was developed and its performance characteristics determined by [employer] It has not been cleared or approved by the Food and Drug Administration. Performed at: - [address] [id number] Lounge Car Attendant: Agustina Tyler MD, Phone: [phone] Jack Morrison MD LAB BLOOD ORDERABLES Final R [facility] Performing Organization Address [facility] Co de Phone Number [facility] - * (ABNORMAL) CBC with auto differential (03/15/2024 9:47 AM SALES ORDER CLERK) [facility] WBC 5.4 3.4 - 10.8 x10E3/uL [facility] [...] [facility] - 01 Blood 03/15/2024 9:47 AM SALES ORDER CLERK 03/15/2024 Narrative [facility] - 03/16/2024 3:07 AM SALES ORDER CLERK Performed at: [address] [place] [address] [id number] Lounge Car Attendant: Prabhjot Trammell PhD, Phone: [phone] us Jack Morrison MD LAB BLOOD ORDERABLES Final R esult [facility] * (ABNORMAL) Renal function panel (03/15/2024 9:46 AM SALES ORDER CLERK) [facility] Glucose 115(H) 70 - 99 mg/dL [facility] [...] [facility] - 01 Blood 03/15/2024 9:46 AM SALES ORDER CLERK 03/15/2024 Narrative [facility] - 03/16/2024 4:07 AM SALES ORDER CLERK Performed at: [address] [place] [address] [id number] Lounge Car Attendant: Prabhjot Trammell PhD, Phone: [phone] Jack Morrison MD LAB BLOOD ORDERABLES Final R esult [facility] - 01 * (ABNORMAL) POCT urinalysis dipstick (03/10/2024 8:47 AM SALES ORDER CLERK) Pathologist [facility] Color, Urine, POC Yellow Clarity, ur, POC Clear Clear Glucose, ur, POC Negative Negative MG/DL Ketones, ur, POC Negative Negative Blood, ur, POC 3+(A) Negative pH, ur, POC 5.0 5.0 - 8.0 Protein, ur, POC Trace(A) Negative Nitrite, ur, POC Negative Negative Leukocytes, ur, POC Trace(A) Negative Lot Number 0 Urine 03/10/2024 8:47 AM SALES ORDER CLERK Roscoe Peck MD POINT OF CARE TEST ORDERABLES Final Result * BK virus PCR quantitative Blood (03/10/2024 8:21 AM SALES ORDER CLERK) Pathologist [facility] BKV DNA result, pl Not Detected [facility] Comment: The quantifiable range of this assay is 21.5 IU/mL to 100,000,000 IU/mL (1.33 log IU/mL to 8.00 log IU/mL). Testing was performed by the WALDEMAR 6800 BKV Quantatitive Test version 2.0 ([employer] Testing performed at [facility] Current Interpretive Data was last revised on 2020. Blood 03/10/2024 8:21 AM SALES ORDER CLERK 03/10/2024 8:43 AM SALES ORDER CLERK us Jack Morrison MD LAB MICROBIOLOGY - GENERAL O RDERABLES Final Result Performing Organization Address City/[facility]/ZIP Co de Phone Number LIN[facility] [place] [address] [facility] * (ABNORMAL) eGFR (03/10/2024 8:21 AM SALES ORDER CLERK) eGFR 22(L) >=60 mL/min/1. 73 m2 Comment: [...] last reviewed 2020. Blood 03/10/2024 8:21 AM SALES ORDER CLERK 03/10/2024 8:42 AM SALES ORDER CLERK us Jack Morrison MD LAB BLOOD ORDERABLES Final R esult [facility] [place] [address] * (ABNORMAL) Differential, auto (03/10/2024 8:21 AM SALES ORDER CLERK) Neutrophil abs 4.9 1.5 - 6.5 K/cumm Imm gran abs 0.0 0.0 - 0.1 K/cumm [facility] Lymphocyte abs 0.3(L) 0.8 - 3.3 K/cumm [facility] Monocyte abs 0.4 0.2 - 0.8 K/cumm [facility] Eosinophil abs 0.0 0.0 - 0.5 K/cumm [facility] Basophil abs 0.0 0.0 - 0.1 K/cumm [facility] Neutrophil pct 86.2 % [facility] Comment: Interpretive Data Percent cell count reference ranges are not reported, since discordance with absolute values may lead to misinterpretation of CBC data. Current Interpretive Data was last revised on 2017. Imm gran pct 0.7 % [facility] Comment: Interpretive Data Percent cell count reference ranges are not reported, since discordance with absolute values may lead to misinterpretation of CBC data. Current Interpretive Data was last revised on 2017. Lymphocyte pct 4.9 % [facility] Comment: Interpretive Data Percent cell count reference ranges are not reported, since discordance with absolute values may lead to misinterpretation of CBC data. Current Interpretive Data was last revised on 2017. Monocyte pct 7.2 % [facility] Comment: Interpretive Data Percent cell count reference ranges are not reported, since discordance with absolute values may lead to misinterpretation of CBC data. Current Interpretive Data was last revised on 2017. Eosinophil pct 0.3 % [facility] Comment: Interpretive Data Percent cell count reference ranges are not reported, since discordance with absolute values may lead to misinterpretation of CBC data. Current Interpretive Data was last revised on 2017. Basophil pct 0.7 % [facility] Comment: Interpretive Data Percent cell count reference ranges are not reported, since discordance with absolute values may lead to misinterpretation of CBC data. Current Interpretive Data was last revised on 2017. Blood 03/10/2024 8:21 AM SALES ORDER CLERK 03/10/2024 8:39 AM SALES ORDER CLERK us Jack Morrison MD LAB BLOOD ORDERABLES Final R esult Performing Organization Address City/[facility]/ZIP Co de Phone Number [facility] [place] [address] * (ABNORMAL) CBC with auto differential (03/10/2024 8:21 AM SALES ORDER CLERK) WBC 5.7 3.8 - 9.9 K/cumm Hgb 12.1(L) 13.0 - 17.5 g/dL [facility] Hct 36.1(L) 38.9 - 50.3 % [facility] Plt 220 150 - 400 K/cumm [facility] MPV 9.8 9.1 - 12.3 fL [facility] RBC 3.65(L) 4.30 - 5.80 M/cumm [facility] MCV 98.9(H) 81.3 - 96.4 fL [facility] MCH 33.2 27.1 - 33.3 pg [facility] MCHC 33.5 32.3 - 35.7 g/dL [facility] RDW CV 14.2 11.1 - 14.9 % [facility] RDW SD 52.4(H) 35.7 - 48.1 fL [facility] NRBC abs 0.00 0.00 - 0.01 K/cumm [facility] Blood 03/10/2024 8:21 AM SALES ORDER CLERK 03/10/2024 8:39 AM SALES ORDER CLERK us Jack Morrison MD LAB BLOOD ORDERABLES Final R esult Performing Organization Address City/[facility]/ZIP Co de Phone Number [facility] [place] [address] * Tacrolimus level random (03/10/2024 8:21 AM SALES ORDER CLERK) Pathologist [facility] Tacrolimus random 9.0 ng/mL Comment: Interpretive Data Testing performed by liquid chromatography-tandem mass spectrometry. Therapeutic concentrations vary depending on type of transplanted organ and time elapsed since transplant. Typical trough concentrations range from 5-15 ng/mL. This test was developed and its performance characteristics determined by the [facility] consistent with CLIA requirements. This test has not been cleared or approved by the [place] Food and Drug administration. Current interpretive data last reviewed 2019. Blood 03/10/2024 8:21 AM SALES ORDER CLERK 03/10/2024 8:39 AM SALES ORDER CLERK Jack Morrison MD LAB BLOOD ORDERABLES Final R esult Performing Organization Address City/[facility] Co de Phone Number [facility] [place] [address] * Magnesium (03/10/2024 8:21 AM SALES ORDER CLERK) [facility] Magnesium 2.0 1.4 - 2.5 mg/dL Blood 03/10/2024 8:21 AM SALES ORDER CLERK 03/10/2024 8:39 AM SALES ORDER CLERK Jack Morrison MD LAB BLOOD ORDERABLES Final R esult Performing Organization Address [facility] de Phone Number [facility] [place] [address] * (ABNORMAL) Renal function panel (03/10/2024 8:21 AM SALES ORDER CLERK) Pathologist [facility] Sodium 142 135 - 145 mmol/L Potassium, pl 5.1(H) 3.3 - 4.9 mmol/L [facility] Chloride 108 97 - 110 mmol/L [facility] CO2 24 22 - 32 mmol/L [facility] Anion gap 10 2 - 15 mmol/L [facility] BUN 49(H) 6 - 25 mg/dL [facility] Creatinine 3.09(H) 0.80 - 1.30 mg/dL [facility] Glucose 91 70 - 199 mg/dL [facility] Comment: Interpretive Data Fasting glucose >/= 126 [...] 2022. Calcium 10.2 8.5 - 10.3 mg/dL [facility] Phosphorus, pl 3.2 2.3 - 4.5 mg/dL [facility] Albumin 3.8 3.5 - 5.0 g/dL [facility] Blood 03/10/2024 8:21 AM SALES ORDER CLERK 03/10/2024 8:39 AM SALES ORDER CLERK Jack Morrison MD LAB BLOOD ORDERABLES Final R esult [facility] [place] [address] * PET Stress Test (03/08/2024 3:12 PM SALES ORDER CLERK) Anatomical Region Laterality Modality N/A Positron Emissio n Tomography (PET) 03/08/2024 4:13 PM SALES ORDER CLERK Impressions 03/08/2024 4:13 PM SALES ORDER CLERK Asymptomatic and electrocardiographically normal pharmacologic stress test I personally supervised and was present throughout the stress test. Refer to for the separate report of the PET myocardial perfusion imaging results. Electronically signed by: Jose Ortiz M.D. Narrative 03/08/2024 4:13 PM SALES ORDER CLERK EXAMINATION: PHARMACOLOGIC STRESS TEST FOR CARDIAC PET [...] results. Electronically signed by: Jose Ortiz M.D. [facility] Jadiel Merino MD IMG PET PROCEDURES Final R esult * PET/CT Myocardial Perfusion Imaging (Multiple) (03/08/2024 3:12 PM SALES ORDER CLERK) Anatomical Region Laterality Modality Body N/A Positron Emissio n Tomography (PET) 03/08/2024 3:55 PM SALES ORDER CLERK Impressions 03/08/2024 4:09 PM SALES ORDER CLERK 1. There is a pmajd-pj-cmovflbt size and mild infarct involving the aaddf-nl-ouh-segments inferoseptally associated with moderate severe theresa-infarct ischemia during pharmacologic stress. 2. Marked left ventricular dilation and mild global hyopkinesis with severe hypo-to akinesis juktn-ur-wap-segments inferoseptally. 3. Flow quantification with reduced global [...] Jose Ortiz M.D. Narrative 03/08/2024 4:09 PM SALES ORDER CLERK EXAMINATION: MYOCARDIAL PET/CT PERFUSION IMAGING (STRESS/REST) DATE [...] was referred for PET MPI by his Test Engineering Manager (Dr. Merino). Evaluate for ischemia and/or microvascular [...] mild global hypokinesis. FINDINGS: There is a kozaw-ij-oxwyyvxn size and mild infarct involving the lxcmr-ut-hnm-segments inferoseptally associated with moderate severe theresa-infarct ischemia during pharmacologic stress. Gated post-stress images demonstrate marked left ventricular dilation and mild global hyopkinesis with severe hypo-to akinesis usiaj-qv-tuq-segments inferoseptally and the left ventricular ejection fraction [...] was referred for PET MPI by his Test Engineering Manager (Dr. Merino). Evaluate for ischemia and/or microvascular [...] mild global hypokinesis. FINDINGS: There is a bpjqp-wr-ojvbbuxa size and mild infarct involving the mzsxj-zy-iuw-segments inferoseptally associated with moderate severe theresa-infarct ischemia during pharmacologic stress. Gated post-stress images demonstrate marked left ventricular dilation and mild global hyopkinesis with severe hypo-to akinesis bjsuz-nr-byk-segments inferoseptally and the left ventricular ejection fraction [...] multilevel spondylosis. IMPRESSION: 1. There is a mdhih-lx-fsurdrkd size and mild infarct involving the wavxq-ia-ycf-segments inferoseptally associated with moderate severe theresa-infarct ischemia during pharmacologic stress. 2. Marked left ventricular dilation and mild global hyopkinesis with severe hypo-to akinesis vynzh-oz-lmt-segments inferoseptally. 3. Flow quantification with reduced global hyperemic MBF (1.44 mL/g/min) MFR (1.71) to signify moderate severe coronary microvascular dysfunction. In addition, regional hyperemic MBF is lowest with mean of 0.96 mL/g/min in the pre-described region of ischemia. (Please see table for detailed information) Dictated by: aJck Holder M.D. The radiology attending physician has personally reviewed this study, and had reviewed and/or edited this written report and agrees with it. Electronically signed by: Jose Ortiz M.D. us Crystal Jadiel Merino MD IMG PET PROCEDURES Final R esult * IR Inject Abscess Catheter (03/08/2024 11:02 AM SALES ORDER CLERK) Anatomical Region Laterality Modality Body N/A Radio Fluoroscop y 03/08/2024 12:2 0 PM SALES ORDER CLERK Impressions 03/08/2024 12:20 PM SALES ORDER CLERK Improving and nearly resolved superficial collection without new fistula. Catheter was removed. Improving, but still present perinephric collection without new fistula. Catheter was kept in place. PLAN: Continue to monitor remaining catheter output as well as the patient's clinical condition. The catheter should not be flushed. The patient will follow-up with us in 2 weeks. If questions arise, please contact us by calling [phone]. Electronically signed by: Flori Strange PA-C Narrative 03/08/2024 12:20 PM SALES ORDER CLERK EXAMINATION: DRAINAGE CATHETER EVALUATION AND REMOVAL HISTORY: [...] required TECHNIQUE: Prior to beginning the procedure, Austin Protocol was used to confirm the patient's identity and planned procedure. Fluoroscopy time has been recorded in the electronic medical record. After obtaining a pan puller image, the catheter was injected with dilute [...] required TECHNIQUE: Prior to beginning the procedure, Austin Protocol was used to confirm the patient's identity and planned procedure. Fluoroscopy time has been recorded in the electronic medical record. After obtaining a pan puller image, the catheter was injected with dilute [...] questions arise, please contact us by calling [phone]. Electronically signed by: Flori Stragne PA-C us Savanna Kwok MD IMG IR PROCEDURES Fin al Result * (ABNORMAL) eGFR (03/03/2024 9:40 AM SALES ORDER CLERK) eGFR 22(L) >=60 mL/min/1. 73 m2 Comment: [...] last reviewed 2020. Blood 03/03/2024 9:40 AM SALES ORDER CLERK 03/03/2024 12:52 PM SALES ORDER CLERK us Matthew Marti MD LAB BLOOD ORDERABLES Final Result [facility] [place] [address] * (ABNORMAL) Differential, auto (03/03/2024 9:40 AM SALES ORDER CLERK) Pathologist [facility] Neutrophil abs 6.0 1.5 - 6.5 K/cumm Imm gran abs 0.1 0.0 - 0.1 K/cumm [facility] Lymphocyte abs 0.3(L) 0.8 - 3.3 K/cumm [facility] Monocyte abs 0.4 0.2 - 0.8 K/cumm [facility] Eosinophil abs 0.0 0.0 - 0.5 K/cumm [facility] Basophil abs 0.0 0.0 - 0.1 K/cumm [facility] Neutrophil pct 89.0 % [facility] Comment: Interpretive Data Percent cell count reference ranges are not reported, since discordance with absolute values may lead to misinterpretation of CBC data. Current Interpretive Data was last revised on 2017. Imm gran pct 0.7 % [facility] Comment: Interpretive Data Percent cell count reference ranges are not reported, since discordance with absolute values may lead to misinterpretation of CBC data. Current Interpretive Data was last revised on 2017. Lymphocyte pct 3.7 % [facility] Comment: Interpretive Data Percent cell count reference ranges are not reported, since discordance with absolute values may lead to misinterpretation of CBC data. Current Interpretive Data was last revised on 2017. Monocyte pct 6.2 % [facility] Comment: Interpretive Data Percent cell count reference ranges are not reported, since discordance with absolute values may lead to misinterpretation of CBC data. Current Interpretive Data was last revised on 2017. Eosinophil pct 0.1 % [facility] Comment: Interpretive Data Percent cell count reference ranges are not reported, since discordance with absolute values may lead to misinterpretation of CBC data. Current Interpretive Data was last revised on 2017. Basophil pct 0.3 % [facility] Comment: Interpretive Data Percent cell count reference ranges are not reported, since discordance with absolute values may lead to misinterpretation of CBC data. Current Interpretive Data was last revised on 2017. Blood 03/03/2024 9:40 AM SALES ORDER CLERK 03/03/2024 12:40 PM SALES ORDER CLERK Matthew Marti MD LAB BLOOD ORDERABLES Final Result [facility] [place] [address] * Tacrolimus level trough (03/03/2024 9:40 AM SALES ORDER CLERK) [facility] Tacrolimus trough 7.1 ng/mL Comment: Interpretive Data Testing performed by liquid chromatography-tandem mass spectrometry. Therapeutic concentrations vary depending on type of transplanted organ and time elapsed since transplant. Typical trough concentrations range from 5-15 ng/mL. This test was developed and its performance characteristics determined by the [facility] consistent with CLIA requirements. This test has not been cleared or approved by the [place] Food and Drug administration. Current interpretive data last reviewed 2019. Blood 03/03/2024 9:40 AM SALES ORDER CLERK 03/03/2024 12:40 PM SALES ORDER CLERK Matthew Marti MD LAB BLOOD ORDERABLES Final Result Performing Organization Address City/[facility]/ZIP Co de Phone Number [facility] [place] [address] * (ABNORMAL) CBC with auto differential (03/03/2024 9:40 AM SALES ORDER CLERK) WBC 6.8 3.8 - 9.9 K/cumm Hgb 12.5(L) 13.0 - 17.5 g/dL [facility] Hct 37.1(L) 38.9 - 50.3 % [facility] Plt 166 150 - 400 K/cumm [facility] MPV 10.4 9.1 - 12.3 fL [facility] RBC 3.76(L) 4.30 - 5.80 M/cumm [facility] [facility] MCV 98.7(H) 81.3 - 96.4 fL [facility] MCH 33.2 27.1 - 33.3 pg [facility] MCHC 33.7 32.3 - 35.7 g/dL [facility] RDW CV 15.2(H) 11.1 - 14.9 % [facility] RDW SD 55.8(H) 35.7 - 48.1 fL [facility] NRBC abs 0.00 0.00 - 0.01 K/cumm [facility] Blood 03/03/2024 9:40 AM SALES ORDER CLERK 03/03/2024 12:40 PM SALES ORDER CLERK us Matthew Marti MD LAB BLOOD ORDERABLES Final Result [facility] [place] [address] * Magnesium (03/03/2024 9:40 AM SALES ORDER CLERK) Magnesium 1.7 1.4 - 2.5 mg/dL Blood 03/03/2024 9:40 AM SALES ORDER CLERK 03/03/2024 12:40 PM SALES ORDER CLERK us Matthew Marti MD LAB BLOOD ORDERABLES Final Result [facility] [place] [address] * (ABNORMAL) Renal function panel (03/03/2024 9:40 AM SALES ORDER CLERK) Sodium 138 135 - 145 mmol/L Potassium, pl 5.3(H) 3.3 - 4.9 mmol/L [facility] Chloride 106 97 - 110 mmol/L [facility] CO2 22 22 - 32 mmol/L [facility] Anion gap 10 2 - 15 mmol/L [facility] BUN 42(H) 6 - 25 mg/dL [facility] Creatinine 3.02(H) 0.80 - 1.30 mg/dL [facility] Glucose 101 70 - 199 mg/dL [facility] Comment: Interpretive Data Fasting glucose >/= 126 [...] 2022. Calcium 9.7 8.5 - 10.3 mg/dL [facility] Phosphorus, pl 2.8 2.3 - 4.5 mg/dL [facility] Albumin 3.8 3.5 - 5.0 g/dL [facility] Blood 03/03/2024 9:40 AM SALES ORDER CLERK 03/03/2024 12:40 PM SALES ORDER CLERK us Matthew Marti MD LAB BLOOD ORDERABLES Final Result Performing Organization Address City/[facility]/ZIP Co de Phone Number [facility] [place] [address] * (ABNORMAL) eGFR (03/01/2024 8:00 AM SALES ORDER CLERK) Pathologist [facility] [place] eGFR 23(L) >=60 mL/min/1. 73 m2 Comment: [...] last reviewed 2020. Blood 03/01/2024 8:00 AM SALES ORDER CLERK 03/01/2024 12:38 PM SALES ORDER CLERK Rosalie Velásquez NP LAB BLOOD ORDERABLES Final Result [facility] [place] [address] * (ABNORMAL) Differential, auto (03/01/2024 8:00 AM SALES ORDER CLERK) Pathologist [facility] [place] Neutrophil abs 3.4 1.5 - 6.5 K/cumm Imm gran abs 0.0 0.0 - 0.1 K/cumm [facility] Lymphocyte abs 0.4(L) 0.8 - 3.3 K/cumm [facility] Monocyte abs 0.3 0.2 - 0.8 K/cumm [facility] Eosinophil abs 0.0 0.0 - 0.5 K/cumm [facility] Basophil abs 0.0 0.0 - 0.1 K/cumm [facility] Neutrophil pct 81.3 % [facility] Comment: Interpretive Data Percent cell count reference ranges are not reported, since discordance with absolute values may lead to misinterpretation of CBC data. Current Interpretive Data was last revised on 2017. Imm gran pct 1.0 % [facility] Comment: Interpretive Data Percent cell count reference ranges are not reported, since discordance with absolute values may lead to misinterpretation of CBC data. Current Interpretive Data was last revised on 2017. Lymphocyte pct 8.7 % [facility] Comment: Interpretive Data Percent cell count reference ranges are not reported, since discordance with absolute values may lead to misinterpretation of CBC data. Current Interpretive Data was last revised on 2017. Monocyte pct 7.0 % [facility] Comment: Interpretive Data Percent cell count reference ranges are not reported, since discordance with absolute values may lead to misinterpretation of CBC data. Current Interpretive Data was last revised on 2017. Eosinophil pct 1.0 % [facility] Comment: Interpretive Data Percent cell count reference ranges are not reported, since discordance with absolute values may lead to misinterpretation of CBC data. Current Interpretive Data was last revised on 2017. Basophil pct 1.0 % [facility] Comment: Interpretive Data Percent cell count reference ranges are not reported, since discordance with absolute values may lead to misinterpretation of CBC data. Current Interpretive Data was last revised on 2017. Blood 03/01/2024 8:00 AM SALES ORDER CLERK 03/01/2024 12:32 PM SALES ORDER CLERK us Rosalie Velásquez NP LAB BLOOD ORDERABLES Final Result [facility] [place] [address] * Tacrolimus level trough (03/01/2024 8:00 AM SALES ORDER CLERK) [facility] Tacrolimus trough 8.7 ng/mL Comment: Interpretive Data Testing performed by liquid chromatography-tandem mass spectrometry. Therapeutic concentrations vary depending on type of transplanted organ and time elapsed since transplant. Typical trough concentrations range from 5-15 ng/mL. This test was developed and its performance characteristics determined by the [facility] consistent with CLIA requirements. This test has not been cleared or approved by the US Food and Drug administration. Current interpretive data last reviewed 2019. Blood 03/01/2024 8:00 AM SALES ORDER CLERK 03/01/2024 12:32 PM SALES ORDER CLERK Rosalie Velásquez NP LAB BLOOD ORDERABLES Final Result Performing Organization Address City/[facility] Co de Phone Number [facility] [place] [address] * (ABNORMAL) CBC with auto differential (03/01/2024 8:00 AM SALES ORDER CLERK) WBC 4.2 3.8 - 9.9 K/cumm Hgb 12.3(L) 13.0 - 17.5 g/dL [facility] Hct 36.5(L) 38.9 - 50.3 % [facility] Plt 151 150 - 400 K/cumm [facility] MPV 10.2 9.1 - 12.3 fL [facility] RBC 3.66(L) 4.30 - 5.80 M/cumm [facility] MCV 99.7(H) 81.3 - 96.4 fL [facility] MCH 33.6(H) 27.1 - 33.3 pg [facility] MCHC 33.7 32.3 - 35.7 g/dL [facility] RDW CV 15.7(H) 11.1 - 14.9 % [facility] RDW SD 58.0(H) 35.7 - 48.1 fL [facility] NRBC abs 0.00 0.00 - 0.01 K/cumm [facility] Blood 03/01/2024 8:00 AM SALES ORDER CLERK 03/01/2024 12:32 PM SALES ORDER CLERK Rosalie Velásquez NP LAB BLOOD ORDERABLES Final Result Performing Organization Address City/[facility]/ZIP Co de Phone Number [facility] [place] [address] * Magnesium (03/01/2024 8:00 AM SALES ORDER CLERK) Pathologist [facility] [place] Magnesium 1.9 1.4 - 2.5 mg/dL Blood 03/01/2024 8:00 AM SALES ORDER CLERK 03/01/2024 12:31 PM SALES ORDER CLERK Rosalie Velásquez NP LAB BLOOD ORDERABLES Final Result Performing Organization Address City/State/[facility] Co de Phone Number [facility] [place] [address] * (ABNORMAL) Renal function panel (03/01/2024 8:00 AM SALES ORDER CLERK) [facility] Sodium 140 135 - 145 mmol/L Potassium, pl 5.4(H) 3.3 - 4.9 mmol/L [facility] Chloride 106 97 - 110 mmol/L [facility] CO2 22 22 - 32 mmol/L [facility] Anion gap 12 2 - 15 mmol/L [facility] BUN 39(H) 6 - 25 mg/dL [facility] Creatinine 2.94(H) 0.80 - 1.30 mg/dL [facility] Glucose 92 70 - 199 mg/dL [facility] Comment: Interpretive Data Fasting glucose >/= 126 [...] 2022. Calcium 10.2 8.5 - 10.3 mg/dL [facility] Phosphorus, pl 2.8 2.3 - 4.5 mg/dL [facility] Albumin 3.8 3.5 - 5.0 g/dL [facility] Blood 03/01/2024 8:00 AM SALES ORDER CLERK 03/01/2024 12:31 PM SALES ORDER CLERK us Rosalie Velásquez NP LAB BLOOD ORDERABLES Final Result Performing Organization Address [facility] Co de Phone Number [facility] [place] [address] * BK virus, DNA, quantitative Blood (02/26/2024 8:59 AM SALES ORDER CLERK) BK Virus DNA, PCR Negative Negative IU/mL [facility] - 01 Comment: No BK DNA detected. The linear range of the assay is 22 - 100,000,000 IU/mL. Blood 02/26/2024 8:59 AM SALES ORDER CLERK 02/26/2024 Narrative [facility] - 02/29/2024 2:08 PM SALES ORDER CLERK Performed at: - [address] [id number] Lounge Car Attendant: Agustina yTler MD, Phone: [phone] us Jack Morrison MD LAB MICROBIOLOGY - GENERAL O RDERABLES Final Result Performing Organization Address [facility] Co de Phone Number [facility] * Tacrolimus level trough (02/26/2024 8:59 AM SALES ORDER CLERK) Tacrolimus (FK506), Blood 8.4 2.0 - 20.0 ng/mL [facility] - 01 Comment: Trough (immediately following transplant) 15.0 Trough (steady state, 2 weeks or more after transplant): 3.0 - 8.0 Performed by LC-MS/MS technology. Blood 02/26/2024 8:59 AM SALES ORDER CLERK 02/26/2024 Narrative [facility] - 02/29/2024 2:08 PM SALES ORDER CLERK Test(s) [id number] (FK506), Blood was developed and its performance characteristics determined by [facility]. It has not been cleared or approved by the Food and Drug Administration. Performed at: - [facility] [address] [id number] Lounge Car Attendant: Agustina Tyler MD, Phone: [phone] us Jack Morrison MD LAB BLOOD ORDERABLES Final R esult [facility] - 01 * (ABNORMAL) CBC with auto differential (02/26/2024 8:59 AM SALES ORDER CLERK) WBC 3.6 3.4 - 10.8 x10E3/uL [facility] [...] [facility] - 01 Blood 02/26/2024 8:59 AM SALES ORDER CLERK 02/26/2024 Narrative [facility] - 02/27/2024 7:07 AM SALES ORDER CLERK Performed at: [address] [place] [id number] Lounge Car Attendant: Prabhjot Trammell PhD, Phone: [phone] Jack Morrison MD LAB BLOOD ORDERABLES Final R esult Performing Organization Address [facility] Co de Phone Number [facility] - 01 * (ABNORMAL) Hepatic function panel (02/26/2024 8:59 AM SALES ORDER CLERK) Protein, sr 6.1 6.0 - 8.5 g/dL [facility] - 01 Bilirubin, Total 0.4 0.0 - 1.2 mg/dL [facility] - 01 Bilirubin, direct 0.17 0.00 - 0.40 mg/dL [facility] - 01 Alk phos 147(H) 44 - 121 IU/L [facility] - 01 AST 14 0 - 40 IU/L [facility] - 01 ALT 10 0 - 44 IU/L [facility] - 01 Blood 02/26/2024 8:59 AM SALES ORDER CLERK 02/26/2024 Narrative [facility] - 02/27/2024 7:07 AM SALES ORDER CLERK Performed at: [address] [place] [id number] Lounge Car Attendant: Prabhjot Trammell PhD, Phone: [phone] Jack Morrison MD LAB BLOOD ORDERABLES Final R esult Performing Organization Address City/[facility]/ZIP Co de Phone Number [facility] - 01 * (ABNORMAL) Renal function panel (02/26/2024 8:59 AM SALES ORDER CLERK) Glucose 99 70 - 99 mg/dL [facility] [...] [facility] - 01 Blood 02/26/2024 8:59 AM SALES ORDER CLERK 02/26/2024 Narrative [facility] - 02/27/2024 7:07 AM SALES ORDER CLERK Performed at: [address] [place] [id number] Lounge Car Attendant: Prabhjot Trammell PhD, Phone: [phone] us Jack Morrison MD LAB BLOOD ORDERABLES Final R esult Performing Organization Address [facility] Co de Phone Number [facility] - 01 * Lipid panel (02/26/2024 8:59 AM SALES ORDER CLERK) [facility] Cholesterol 121 100 - 199 mg/dL [facility] - 01 Triglycerides 104 0 - 149 mg/dL [facility] - 01 HDL Cholesterol 52 >39 mg/dL [facility] - 01 VLDL 19 5 - 40 mg/dL [facility] - 01 LDL, calculated 50 0 - 99 mg/dL [facility] - 01 Blood 02/26/2024 8:59 AM SALES ORDER CLERK 02/26/2024 Narrative [facility] - 02/27/2024 7:07 AM SALES ORDER CLERK Performed at: [address] [place] [id number] Lounge Car Attendant: Prabhjot Trammell PhD, Phone: [phone] us Jack Morrison MD LAB BLOOD ORDERABLES Final R esult Performing Organization Address [facility]/ZIP Co de Phone Number [facility] - 01 * POCT glucose (02/23/2024 11:43 AM SALES ORDER CLERK) Glucose, POC 105 70 - 199 mg/dL Blood 02/23/2024 11:4 3 AM SALES ORDER CLERK 02/23/2024 11:43 AM SALES ORDER CLERK us Renetta Jones MD PhD LAB POCT ORDERABLES - DEVICE Fi nal Result Performing Organization Address [facility] de Phone Number [facility] [place] [address] * POCT glucose (02/23/2024 8:21 AM SALES ORDER CLERK) Glucose, POC 106 70 - 199 mg/dL Blood 02/23/2024 8:21 AM SALES ORDER CLERK 02/23/2024 8:21 AM SALES ORDER CLERK us Renetta Jones MD PhD LAB POCT ORDERABLES - DEVICE Fi nal Result Performing Organization Address [facility] de Phone Number [facility] [place] [address] * (ABNORMAL) Potassium, whole blood (02/23/2024 6:38 AM SALES ORDER CLERK) Pathologist [facility] [place] Potassium, bld 5.3(H) 3.3 - 4.9 mmol/L Blood 02/23/2024 6:38 AM SALES ORDER CLERK 02/23/2024 6:55 AM SALES ORDER CLERK us Renetta Jones MD PhD LAB BLOOD ORDERABLES Final Resu lt Performing Organization Address [facility] Co de Phone Number [facility] [place] [employer] [place] [address] * ECG 12 lead (02/23/2024 6:30 AM SALES ORDER CLERK) Ventricular Rate EKG/Min 57 BPM [facility] Atrial Rate 57 BPM [facility] DC-Interval (MSEC) 246 ms [facility] QRS-Interval (MSEC) 142 ms [facility] QT-Interval (MSEC) 464 ms [facility] QTc 451 ms [facility] P [place] 65 degrees [facility] R [place] -9 degrees [facility] T [place] 20 degrees [facility] Diagnosis Sinus bradycardia with 1st degree A-V block Non-specific intra-ventricul ar conduction block Minimal voltage criteria for LVH, may be normal variant ( Vaibhav product ) Abnormal ECG When compared with ECG of 27-JAN-2024 15:35, Sinus rhythm has replaced Atrial fibrillation QT has shortened Confirmed by JENNIFER BYRD M.D ([id number]) on 02/23/2024 1:27:04 PM [facility] 02/23/2024 6:30 AM SALES ORDER CLERK 02/23/2024 1:27 PM SALES ORDER CLERK us Renetta Jones MD PhD ECG ORDERABLES Final Result [facility] * CT Abdomen Pelvis WO Contrast (02/23/2024 5:21 AM SALES ORDER CLERK) Anatomical Region Laterality Modality Body N/A Computed Tomogra phy 02/23/2024 7:47 AM SALES ORDER CLERK Impressions 02/23/2024 7:47 AM SALES ORDER CLERK 1. Interval placement of pigtail catheter within [...] Blake Bauer M.D. Narrative 02/23/2024 7:47 AM SALES ORDER CLERK EXAMINATION: Computed tomography of the abdomen and [...] this noncontrast study. Marked atrophy of the [place] kidneys. No hyperdense gallstones or biliary dilation. [...] this noncontrast study. Marked atrophy of the [place] kidneys. No hyperdense gallstones or biliary dilation. [...] edema Electronically signed by: Blake Bauer M.D. Susi LEE IMG CT PROCEDURES Fin al Result * (ABNORMAL) eGFR (02/23/2024 4:37 AM SALES ORDER CLERK) eGFR 20(L) >=60 mL/min/1. 73 m2 Comment: [...] last reviewed 2020. Blood 02/23/2024 4:37 AM SALES ORDER CLERK 02/23/2024 4:59 AM SALES ORDER CLERK Rhoda LEE LAB BLOOD ORDERABLES Final Result [facility] [place] [address] * (ABNORMAL) Differential, auto (02/23/2024 4:37 AM SALES ORDER CLERK) Neutrophil abs 2.5 1.5 - 6.5 K/cumm Imm gran abs 0.0 0.0 - 0.1 K/cumm [facility] Lymphocyte abs 0.2(L) 0.8 - 3.3 K/cumm [facility] Monocyte abs 0.2 0.2 - 0.8 K/cumm [facility] Eosinophil abs 0.0 0.0 - 0.5 K/cumm [facility] Basophil abs 0.0 0.0 - 0.1 K/cumm [facility] Neutrophil pct 85.3 % [facility] Comment: Interpretive Data Percent cell count reference ranges are not reported, since discordance with absolute values may lead to misinterpretation of CBC data. Current Interpretive Data was last revised on 2017. Imm gran pct 0.7 % [facility] Comment: Interpretive Data Percent cell count reference ranges are not reported, since discordance with absolute values may lead to misinterpretation of CBC data. Current Interpretive Data was last revised on 2017. Lymphocyte pct 6.5 % [facility] Comment: Interpretive Data Percent cell count reference ranges are not reported, since discordance with absolute values may lead to misinterpretation of CBC data. Current Interpretive Data was last revised on 2017. Monocyte pct 6.1 % [facility] Comment: Interpretive Data Percent cell count reference ranges are not reported, since discordance with absolute values may lead to misinterpretation of CBC data. Current Interpretive Data was last revised on 2017. Eosinophil pct 0.7 % [facility] Comment: Interpretive Data Percent cell count reference ranges are not reported, since discordance with absolute values may lead to misinterpretation of CBC data. Current Interpretive Data was last revised on 2017. Basophil pct 0.7 % [facility] Comment: Interpretive Data Percent cell count reference ranges are not reported, since discordance with absolute values may lead to misinterpretation of CBC data. Current Interpretive Data was last revised on 2017. Blood 02/23/2024 4:37 AM SALES ORDER CLERK 02/23/2024 4:59 AM SALES ORDER CLERK Rhoda Flores [place] LAB BLOOD ORDERABLES Final Result Performing Organization Address [facility] de Phone Number [facility] [place] [address] * Tacrolimus level trough (02/23/2024 4:37 AM SALES ORDER CLERK) Pathologist [facility] [place] Tacrolimus trough 9.1 ng/mL Comment: Interpretive Data Testing performed by liquid chromatography-tandem mass spectrometry. Therapeutic concentrations vary depending on type of transplanted organ and time elapsed since transplant. Typical trough concentrations range from 5-15 ng/mL. This test was developed and its performance characteristics determined by the [facility] consistent with CLIA requirements. This test has not been cleared or approved by the [place] Food and Drug administration. Current interpretive data last reviewed 2019. Blood 02/23/2024 4:37 AM SALES ORDER CLERK 02/23/2024 4:59 AM SALES ORDER CLERK Rhoda LEE LAB BLOOD ORDERABLES Final Result Performing Organization Address [facility] Co de Phone Number [facility] [place] [address] * (ABNORMAL) CBC with auto differential (02/23/2024 4:37 AM SALES ORDER CLERK) Pathologist [facility] [place] WBC 2.9(L) 3.8 - 9.9 K/cumm Hgb 10.4(L) 13.0 - 17.5 g/dL [facility] Hct 31.2(L) 38.9 - 50.3 % [facility] Plt 106(L) 150 - 400 K/cumm [facility] MPV 9.8 9.1 - 12.3 fL [facility] RBC 3.09(L) 4.30 - 5.80 M/cumm [facility] MCV 101.0(H) 81.3 - 96.4 fL [facility] MCH 33.7(H) 27.1 - 33.3 pg [facility] MCHC 33.3 32.3 - 35.7 g/dL [facility] RDW CV 16.7(H) 11.1 - 14.9 % [facility] RDW SD 61.7(H) 35.7 - 48.1 fL [facility] NRBC abs 0.00 0.00 - 0.01 K/cumm [facility] Blood 02/23/2024 4:37 AM SALES ORDER CLERK 02/23/2024 4:59 AM SALES ORDER CLERK Rhoda LEE LAB BLOOD ORDERABLES Final Result Performing Organization Address City/[facility]/ZIP Co de Phone Number [facility] [place] [address] * Magnesium (02/23/2024 4:37 AM SALES ORDER CLERK) [facility] Magnesium 2.0 1.4 - 2.5 mg/dL Blood 02/23/2024 4:37 AM SALES ORDER CLERK 02/23/2024 4:59 AM SALES ORDER CLERK Rhoda LEE LAB BLOOD ORDERABLES Final Result Performing Organization Address City/[facility]/ZIP Co de Phone Number [facility] [place] [employer] [place] [address] * (ABNORMAL) Renal function panel (02/23/2024 4:37 AM SALES ORDER CLERK) Sodium 141 135 - 145 mmol/L Potassium, pl 5.6(H) 3.3 - 4.9 mmol/L [facility] Chloride 108 97 - 110 mmol/L [facility] CO2 27 22 - 32 mmol/L [facility] Anion gap 6 2 - 15 mmol/L [facility] BUN 38(H) 6 - 25 mg/dL [facility] Creatinine 3.27(H) 0.80 - 1.30 mg/dL [facility] Glucose 86 70 - 199 mg/dL [facility] Comment: Interpretive Data Fasting glucose >/= 126 [...] 2022. Calcium 9.6 8.5 - 10.3 mg/dL [facility] Phosphorus, pl 4.2 2.3 - 4.5 mg/dL [facility] Albumin 3.7 3.5 - 5.0 g/dL [facility] Blood 02/23/2024 4:37 AM SALES ORDER CLERK 02/23/2024 4:59 AM SALES ORDER CLERK us Rhoda LEE LAB BLOOD ORDERABLES Final Result Performing Organization Address [facility] Co de Phone Number [facility] [place] [address] * POCT glucose (02/22/2024 9:35 PM SALES ORDER CLERK) [facility] Signature Glucose, POC 136 70 - 199 mg/dL Blood 02/22/2024 9:35 PM SALES ORDER CLERK 02/22/2024 9:35 PM SALES ORDER CLERK us Renetta Jones MD PhD LAB POCT ORDERABLES - DEVICE Fi nal Result Performing Organization Address [facility] Co de Phone Number [facility] [place] [address] * POCT glucose (02/22/2024 5:37 PM SALES ORDER CLERK) Glucose, POC 134 70 - 199 mg/dL Blood 02/22/2024 5:37 PM SALES ORDER CLERK 02/22/2024 5:37 PM SALES ORDER CLERK Renetta Jones MD PhD LAB POCT ORDERABLES - DEVICE Fi nal Result Performing Organization Address [facility] Co de Phone Number [facility] [place] [address] * Cell Differential, Body Fluid (02/22/2024 2:26 PM SALES ORDER CLERK) Total cells diffed 100 cells Comment: Interpretive Data Unless otherwise specified, the reference range and other method performance specifications have not been established for CSF/Body Fluid tests. The test results should be integrated into the clinical context for interpretation. Current interpretive data was last revised on 2018. Neutrophils, fld 50 % [facility] Lymphs, fld 26 % [facility] Monocyte, fld 23 % [facility] Macrophages, fld 1 % [facility] Specimen type, fld Peritoneal [facility] Fluid 02/22/2024 2:26 PM SALES ORDER CLERK 02/22/2024 2:38 PM SALES ORDER CLERK Harrison Taylor MD LAB BODY FLUIDS AND STOOLS OR DERABLES Final Result Performing Organization Address [facility] Co de Phone Number [facility] [place] [address] * Cell Differential, Body Fluid (02/22/2024 2:26 PM SALES ORDER CLERK) Total cells diffed 100 cells Comment: Interpretive Data Unless otherwise specified, the reference range and other method performance specifications have not been established for CSF/Body Fluid tests. The test results should be integrated into the clinical context for interpretation. Current interpretive data was last revised on 2018. Neutrophils, fld 4 % [facility] Lymphs, fld 79 % [facility] Monocyte, fld 17 % [facility] Specimen type, fld Peritoneal [facility] Fluid 02/22/2024 2:26 PM SALES ORDER CLERK 02/22/2024 2:38 PM SALES ORDER CLERK Harrison Taylor MD LAB BODY FLUIDS AND STOOLS OR DERABLES Final Result Performing Organization Address [facility] Co de Phone Number [facility] [place] [address] * (ABNORMAL) Cell count w/rflx diff, body fluid (02/22/2024 2:26 PM SALES ORDER CLERK) Specimen type, fld Peritoneal Color, fld [place] [facility] Clarity, fld Cloudy(A) Clear [facility] Nucleated cells, fld 83 /cumm [facility] Comment: Interpretive Data Unless otherwise specified, the reference range and other method performance specifications have not been established for CSF/Body Fluid tests. The test results should be integrated into the clinical context for interpretation. Current interpretive data was last revised on 2018. RBC, fld 21,315 /cumm [facility] Fluid 02/22/2024 2:26 PM SALES ORDER CLERK 02/22/2024 2:38 PM SALES ORDER CLERK Narrative [facility] - 02/22/2024 4:31 PM SALES ORDER CLERK RLQ drain #2 Harrison Taylor MD LAB BODY FLUIDS AND STOOLS OR DERABLES Final Result Performing Organization Address [facility] Co de Phone Number [facility] [place] [address] * (ABNORMAL) Cell count w/rflx diff, body fluid (02/22/2024 2:26 PM SALES ORDER CLERK) Specimen type, fld Peritoneal Color, fld Red [facility] Clarity, fld Turbid(A) Clear [facility] Nucleated cells, fld 350 /cumm [facility] Comment: Interpretive Data Unless otherwise specified, the reference range and other method performance specifications have not been established for CSF/Body Fluid tests. The test results should be integrated into the clinical context for interpretation. Current interpretive data was last revised on 2018. RBC, fld 606,638 /cumm [facility] Fluid 02/22/2024 2:26 PM SALES ORDER CLERK 02/22/2024 2:38 PM SALES ORDER CLERK Narrative [facility] - 02/22/2024 4:31 PM SALES ORDER CLERK RLQ Harrison Taylor MD LAB BODY FLUIDS AND STOOLS OR DERABLES Final Result Performing Organization Address [facility] Co de Phone Number [facility] [place] [address] * Aerobic and anaerobic culture and gram stain Peritoneal fluid Abdominal, right lower quadrant (02/22/2024 2:26 PM SALES ORDER CLERK) Direct Specimen Exam Stain: Cytospin Gram stain shows: Rare polymorphonuclear leukocytes seen. No organisms seen. Report Final Report: No growth [facility] Peritoneal fluid (Abdominal, right lower quadrant) 02/22/2024 2:26 PM SALES ORDER CLERK 02/22/2024 3:42 PM SALES ORDER CLERK Narrative [facility] - 02/25/2024 10:47 AM SALES ORDER CLERK RLQ Drain #2 Testing performed by [facility] ([phone]) Specimens submitted from normally sterile body sites [...] interpretive data was last revised on 2019. us Harrison Taylor MD LAB MICROBIOLOGY - GENERAL OR DERABLES Final Result Performing Organization Address [facility]/ZIP Co de Phone Number [facility] [place] [address] * Aerobic and anaerobic culture and gram stain Abscess Abdominal, right lower quadrant (02/22/2024 2:26 PM SALES ORDER CLERK) Direct Specimen Exam Stain: Rare polymorphonuclear leukocytes seen. No organisms seen. Report Final Report: No growth [facility] Abscess (Abdominal, right lower quadrant) 02/22/2024 2:26 PM SALES ORDER CLERK 02/22/2024 3:41 PM SALES ORDER CLERK Narrative [facility] - 02/25/2024 10:48 AM SALES ORDER CLERK Testing performed by [facility] ([phone]) Specimens submitted from normally sterile body sites [...] interpretive data was last revised on 2019. us Harrison Taylor MD LAB MICROBIOLOGY - GENERAL OR DERABLES Final Result [facility] [place] [address] * Creatinine, body fluid (02/22/2024 2:26 PM SALES ORDER CLERK) Specimen type, fld Peritoneal Creatinine, fld 3.60 mg/dL [facility] Comment: The above specimen type is not [...] 2018. Chapter 43, Body Fluids, p. 925 [facility] Test directory, Body Fluid Reference Intervals and/or Interpretative Information. [email or web address] Current Interpretive Data was last revised 2018. Fluid 02/22/2024 2:2 6 PM SALES ORDER CLERK 02/22/2024 2:38 PM SALES ORDER CLERK Narrative [facility] - 02/22/2024 3:21 PM SALES ORDER CLERK RLQ Harrison Taylor MD LAB BODY FLUIDS AND STOOLS OR DERABLES Final Result Performing Organization Address City/[facility] Co de Phone Number [facility] [place] [address] * Creatinine, body fluid (02/22/2024 2:19 PM SALES ORDER CLERK) Specimen type, fld Peritoneal Creatinine, fld 3.43 mg/dL [facility] Comment: The above specimen type is not [...] 2018. Chapter 43, Body Fluids, p. 925 [employer] Test directory, Body Fluid Reference Intervals and/or Interpretative Information. [email or web address] Current Interpretive Data was last revised 2018. Fluid 02/22/2024 2:19 PM SALES ORDER CLERK 02/22/2024 2:38 PM SALES ORDER CLERK Narrative [facility] - 02/22/2024 8:43 PM SALES ORDER CLERK RLQ Drain #2 Harrison Taylor MD LAB BODY FLUIDS AND STOOLS OR DERABLES Final Result Performing Organization Address [facility] Co de Phone Number [facility] [place] [address] * POCT glucose (02/22/2024 1:48 PM SALES ORDER CLERK) Glucose, POC 81 70 - 199 mg/dL Blood 02/22/2024 1:48 PM SALES ORDER CLERK 02/22/2024 1:48 PM SALES ORDER CLERK us Renetta Jones MD PhD LAB POCT ORDERABLES - DEVICE Fi nal Result [facility] [place] [address] * IR Fluid Drain Soft Tissue (02/22/2024 1:14 PM SALES ORDER CLERK) Anatomical Region Laterality Modality Body N/A X-Ray Angiograph y 02/22/2024 4:41 PM SALES ORDER CLERK Addenda Addendum by Harrison Taylor MD on 02/23/2024 1:55 PM SALES ORDER CLERK This addendum is being placed after cell [...] Harrison Taylor M.D. Impressions 02/22/2024 4:51 PM SALES ORDER CLERK Successful image guided right lower quadrant fluid [...] Harrison Taylor M.D. Narrative 02/22/2024 4:51 PM SALES ORDER CLERK EXAMINATION: PERCUTANEOUS DRAINAGE (STD) HISTORY/INDICATION: 63-year-old male [...] was obtained. Prior to beginning the procedure, [place] Protocol was used to confirm the patient's [...] coiled within the collection before dilating to 12-Greenlandic. A 12-Greenlandic cope loop catheter was then advanced over [...] coiled within the collection before dilating to 12-Greenlandic. A 12-Greenlandic Cobra catheter was then advanced over the [...] was obtained. Prior to beginning the procedure, [place] Protocol was used to confirm the patient's [...] coiled within the collection before dilating to 12-Greenlandic. A 12-Greenlandic cope loop catheter was then advanced over [...] coiled within the collection before dilating to 12-Greenlandic. A 12-Greenlandic Cobra catheter was then advanced over the [...] it. Electronically signed by: Harrison Taylor M.D. us Rhoda LEE IMG IR PROCEDURES Edited R esult - Final * Cell Differential, Body Fluid (02/22/2024 12:50 PM SALES ORDER CLERK) Total cells diffed 100 cells Comment: Interpretive Data Unless otherwise specified, the reference range and other method performance specifications have not been established for CSF/Body Fluid tests. The test results should be integrated into the clinical context for interpretation. Current interpretive data was last revised on 2018. Neutrophils, fld 1 % [facility] Lymphs, fld 95 % [facility] Monocyte, fld 4 % [facility] Specimen type, fld Peritoneal [facility] Fluid 02/22/2024 12:5 0 PM SALES ORDER CLERK 02/22/2024 4:24 PM SALES ORDER CLERK us Renetta Jones MD PhD LAB BODY FLUIDS AND STOOLS THALIA ESPAÑA Final Result [facility] [place] [address] * (ABNORMAL) Cell count w/rflx diff, body fluid (02/22/2024 12:50 PM SALES ORDER CLERK) Specimen type, fld Peritoneal Color, fld [place] [facility] Clarity, fld Cloudy(A) Clear [facility] Nucleated cells, fld 44 /cumm [facility] Comment: Interpretive Data Unless otherwise specified, the reference range and other method performance specifications have not been established for CSF/Body Fluid tests. The test results should be integrated into the clinical context for interpretation. Current interpretive data was last revised on 2018. RBC, fld 2,832 /cumm [facility] Fluid 02/22/2024 12:5 0 PM SALES ORDER CLERK 02/22/2024 4:24 PM SALES ORDER CLERK Narrative [facility] - 02/22/2024 5:35 PM SALES ORDER CLERK RLQ drain 2 Renetta Jones MD PhD LAB BODY FLUIDS AND STOOLS [place]IA [place]ÑA Final Result Performing Organization Address [facility] Co de Phone Number [facility] [place] [address] * Creatinine, body fluid (02/22/2024 12:50 PM SALES ORDER CLERK) Specimen type, fld Unknown Creatinine, fld 3.51 mg/dL [facility] Comment: The above specimen type is not [...] 2018. Chapter 43, Body Fluids, p. 925 [employer] Test directory, Body Fluid Reference Intervals and/or Interpretative Information. [email or web address] Current Interpretive Data was last revised 2018. Fluid 02/22/2024 12:5 0 PM SALES ORDER CLERK 02/22/2024 4:23 PM SALES ORDER CLERK Narrative [facility] - 02/22/2024 6:58 PM SALES ORDER CLERK RLQ drain 1 us Renetta Jones MD PhD LAB BODY FLUIDS AND STOOLS THALIA ESPAÑA Final Result Performing Organization Address [facility]/ZIP Co de Phone Number [facility] [place] [address] * (ABNORMAL) Potassium, whole blood (02/22/2024 6:27 AM SALES ORDER CLERK) Pathologist [facility] [place] Potassium, bld 5.0(H) 3.3 - 4.9 mmol/L Comment:Reviewed. Blood 02/22/2024 6:27 AM SALES ORDER CLERK 02/22/2024 6:36 AM SALES ORDER CLERK us Vannessa Hein [employer] LAB BLOOD ORDERABLES Fin al Result Performing Organization Address [facility] Co de Phone Number [facility] [place] [address] * POCT glucose (02/22/2024 6:27 AM SALES ORDER CLERK) Pathologist [facility] [place] Glucose, POC 92 70 - 199 mg/dL Blood 02/22/2024 6:27 AM SALES ORDER CLERK 02/22/2024 6:27 AM SALES ORDER CLERK us Renetta Jones MD PhD LAB POCT ORDERABLES - DEVICE Fi nal Result Performing Organization Address [facility] de Phone Number [facility] [place] [address] * (ABNORMAL) eGFR (02/22/2024 4:38 AM SALES ORDER CLERK) Pathologist [facility] [place] eGFR 19(L) >=60 mL/min/1. 73 m2 Comment: [...] last reviewed 2020. Blood 02/22/2024 4:38 AM SALES ORDER CLERK 02/22/2024 5:26 AM SALES ORDER CLERK Rhoda LEE LAB BLOOD ORDERABLES Final Result [facility] [place] [address] * (ABNORMAL) Differential, auto (02/22/2024 4:38 AM SALES ORDER CLERK) Neutrophil abs 2.6 1.5 - 6.5 K/cumm Imm gran abs 0.0 0.0 - 0.1 K/cumm [facility] Lymphocyte abs 0.2(L) 0.8 - 3.3 K/cumm [facility] Monocyte abs 0.2 0.2 - 0.8 K/cumm [facility] Eosinophil abs 0.0 0.0 - 0.5 K/cumm [facility] Basophil abs 0.0 0.0 - 0.1 K/cumm [facility] Neutrophil pct 83.7 % [facility] Comment: Interpretive Data Percent cell count reference ranges are not reported, since discordance with absolute values may lead to misinterpretation of CBC data. Current Interpretive Data was last revised on 2017. Imm gran pct 0.6 % [facility] Comment: Interpretive Data Percent cell count reference ranges are not reported, since discordance with absolute values may lead to misinterpretation of CBC data. Current Interpretive Data was last revised on 2017. Lymphocyte pct 6.7 % [facility] Comment: Interpretive Data Percent cell count reference ranges are not reported, since discordance with absolute values may lead to misinterpretation of CBC data. Current Interpretive Data was last revised on 2017. Monocyte pct 6.7 % [facility] Comment: Interpretive Data Percent cell count reference ranges are not reported, since discordance with absolute values may lead to misinterpretation of CBC data. Current Interpretive Data was last revised on 2017. Eosinophil pct 1.3 % [facility] Comment: Interpretive Data Percent cell count reference ranges are not reported, since discordance with absolute values may lead to misinterpretation of CBC data. Current Interpretive Data was last revised on 2017. Basophil pct 1.0 % [facility] Comment: Interpretive Data Percent cell count reference ranges are not reported, since discordance with absolute values may lead to misinterpretation of CBC data. Current Interpretive Data was last revised on 2017. Blood 02/22/2024 4:38 AM SALES ORDER CLERK 02/22/2024 5:26 AM SALES ORDER CLERK Rhoda Flores [place] LAB BLOOD ORDERABLES Final Result Performing Organization Address [facility] de Phone Number [facility] [place] [address] * Tacrolimus level trough (02/22/2024 4:38 AM SALES ORDER CLERK) Pathologist [facility] [place] Tacrolimus trough 8.2 ng/mL Comment: Interpretive Data Testing performed by liquid chromatography-tandem mass spectrometry. Therapeutic concentrations vary depending on type of transplanted organ and time elapsed since transplant. Typical trough concentrations range from 5-15 ng/mL. This test was developed and its performance characteristics determined by the [facility] consistent with CLIA requirements. This test has not been cleared or approved by the [place] Food and Drug administration. Current interpretive data last reviewed 2019. Blood 02/22/2024 4:38 AM SALES ORDER CLERK 02/22/2024 5:26 AM SALES ORDER CLERK Rhoda LEE LAB BLOOD ORDERABLES Final Result Performing Organization Address [facility] Co de Phone Number [facility] [place] [address] * (ABNORMAL) CBC with auto differential (02/22/2024 4:38 AM SALES ORDER CLERK) Pathologist [facility] [place] WBC 3.1(L) 3.8 - 9.9 K/cumm Hgb 10.8(L) 13.0 - 17.5 g/dL [facility] Hct 32.2(L) 38.9 - 50.3 % [facility] Plt 117(L) 150 - 400 K/cumm [facility] MPV 10.3 9.1 - 12.3 fL [facility] RBC 3.23(L) 4.30 - 5.80 M/cumm [facility] MCV 99.7(H) 81.3 - 96.4 fL [facility] MCH 33.4(H) 27.1 - 33.3 pg [facility] MCHC 33.5 32.3 - 35.7 g/dL [facility] RDW CV 16.9(H) 11.1 - 14.9 % [facility] RDW SD 62.2(H) 35.7 - 48.1 fL [facility] NRBC abs 0.00 0.00 - 0.01 K/cumm [facility] Blood 02/22/2024 4:38 AM SALES ORDER CLERK 02/22/2024 5:26 AM SALES ORDER CLERK Rhoda LEE LAB BLOOD ORDERABLES Final Result Performing Organization Address City/[facility] Co de Phone Number [facility] [place] [address] * Magnesium (02/22/2024 4:38 AM SALES ORDER CLERK) Pathologist [facility] [place] Magnesium 1.9 1.4 - 2.5 mg/dL Blood 02/22/2024 4:38 AM SALES ORDER CLERK 02/22/2024 5:26 AM SALES ORDER CLERK Rhoda LEE LAB BLOOD ORDERABLES Final Result Performing Organization Address City/[facility] Co de Phone Number [facility] [place] [address] * (ABNORMAL) Renal function panel (02/22/2024 4:38 AM SALES ORDER CLERK) Sodium 140 135 - 145 mmol/L Potassium, pl 5.2(H) 3.3 - 4.9 mmol/L [facility] Chloride 107 97 - 110 mmol/L [facility] CO2 23 22 - 32 mmol/L [facility] Anion gap 10 2 - 15 mmol/L [facility] BUN 46(H) 6 - 25 mg/dL [facility] Creatinine 3.44(H) 0.80 - 1.30 mg/dL [facility] Glucose 94 70 - 199 mg/dL [facility] Comment: Interpretive Data Fasting glucose >/= 126 [...] 2022. Calcium 9.5 8.5 - 10.3 mg/dL [facility] Phosphorus, pl 4.5 2.3 - 4.5 mg/dL [facility] Albumin 3.6 3.5 - 5.0 g/dL [facility] Blood 02/22/2024 4:38 AM SALES ORDER CLERK 02/22/2024 5:26 AM SALES ORDER CLERK us Rhoda LEE LAB BLOOD ORDERABLES Final Result Performing Organization Address City/[facility]/ZIP Co de Phone Number [facility] [place] [address] * POCT glucose (02/21/2024 8:49 PM SALES ORDER CLERK) [facility] Signature Glucose, POC 107 70 - 199 mg/dL Blood 02/21/2024 8:49 PM SALES ORDER CLERK 02/21/2024 8:49 PM SALES ORDER CLERK us Renetta Jones MD PhD LAB POCT ORDERABLES - DEVICE Fi nal Result Performing Organization Address City/[facility]/ZIP Co de Phone Number [facility] [place] [address] * POCT glucose (02/21/2024 5:26 PM SALES ORDER CLERK) Glucose, POC 108 70 - 199 mg/dL Blood 02/21/2024 5:26 PM SALES ORDER CLERK 02/21/2024 5:26 PM SALES ORDER CLERK us Renetta Jones MD PhD LAB POCT ORDERABLES - DEVICE Fi nal Result [facility] [place] [address] * POCT glucose (02/21/2024 2:08 PM SALES ORDER CLERK) Glucose, POC 147 70 - 199 mg/dL Blood 02/21/2024 2:08 PM SALES ORDER CLERK 02/21/2024 2:08 PM SALES ORDER CLERK us Renetta Jones MD PhD LAB POCT ORDERABLES - DEVICE Fi nal Result [facility] [place] [address] * (ABNORMAL) eGFR (02/21/2024 2:06 PM SALES ORDER CLERK) eGFR 20(L) >=60 mL/min/1. 73 m2 Comment: [...] last reviewed 2020. Blood 02/21/2024 2:06 PM SALES ORDER CLERK 02/21/2024 2:24 PM SALES ORDER CLERK Rhoda LEE LAB BLOOD ORDERABLES Final Result [facility] [place] [address] * (ABNORMAL) Differential, auto (02/21/2024 2:06 PM SALES ORDER CLERK) Pathologist [facility] [place] Neutrophil abs 3.3 1.5 - 6.5 K/cumm Imm gran abs 0.0 0.0 - 0.1 K/cumm [facility] Lymphocyte abs 0.2(L) 0.8 - 3.3 K/cumm [facility] Monocyte abs 0.2 0.2 - 0.8 K/cumm [facility] Eosinophil abs 0.0 0.0 - 0.5 K/cumm [facility] Basophil abs 0.0 0.0 - 0.1 K/cumm [facility] Neutrophil pct 86.3 % [facility] Comment: Interpretive Data Percent cell count reference ranges are not reported, since discordance with absolute values may lead to misinterpretation of CBC data. Current Interpretive Data was last revised on 2017. Imm gran pct 0.8 % [facility] Comment: Interpretive Data Percent cell count reference ranges are not reported, since discordance with absolute values may lead to misinterpretation of CBC data. Current Interpretive Data was last revised on 2017. Lymphocyte pct 4.3 % [facility] Comment: Interpretive Data Percent cell count reference ranges are not reported, since discordance with absolute values may lead to misinterpretation of CBC data. Current Interpretive Data was last revised on 2017. Monocyte pct 6.4 % [facility] Comment: Interpretive Data Percent cell count reference ranges are not reported, since discordance with absolute values may lead to misinterpretation of CBC data. Current Interpretive Data was last revised on 2017. Eosinophil pct 1.1 % [facility] Comment: Interpretive Data Percent cell count reference ranges are not reported, since discordance with absolute values may lead to misinterpretation of CBC data. Current Interpretive Data was last revised on 2017. Basophil pct 1.1 % [facility] Comment: Interpretive Data Percent cell count reference ranges are not reported, since discordance with absolute values may lead to misinterpretation of CBC data. Current Interpretive Data was last revised on 2017. Blood 02/21/2024 2:06 PM SALES ORDER CLERK 02/21/2024 2:24 PM SALES ORDER CLERK Rhoda LEE LAB BLOOD ORDERABLES Final Result [facility] [place] [address] * (ABNORMAL) CBC with auto differential (02/21/2024 2:06 PM SALES ORDER CLERK) WBC 3.8 3.8 - 9.9 K/cumm Hgb 10.9(L) 13.0 - 17.5 g/dL [facility] Hct 32.3(L) 38.9 - 50.3 % [facility] [facility] Plt 123(L) 150 - 400 K/cumm [facility] MPV 10.0 9.1 - 12.3 fL [facility] RBC 3.26(L) 4.30 - 5.80 M/cumm [facility] MCV 99.1(H) 81.3 - 96.4 fL [facility] MCH 33.4(H) 27.1 - 33.3 pg [facility] MCHC 33.7 32.3 - 35.7 g/dL [facility] RDW CV 17.0(H) 11.1 - 14.9 % [facility] RDW SD 61.9(H) 35.7 - 48.1 fL [facility] NRBC abs 0.00 0.00 - 0.01 K/cumm [facility] Blood 02/21/2024 2:06 PM SALES ORDER CLERK 02/21/2024 2:24 PM SALES ORDER CLERK Rhoda LEE LAB BLOOD ORDERABLES Final Result Performing Organization Address [facility] de Phone Number [facility] [place] [address] * Protime-INR (02/21/2024 2:06 PM SALES ORDER CLERK) PT 12.0 9.7 - 13.0 sec INR 1.11 0.90 - 1.20 [facility] Comment: Interpretive data Oral anticoagulant therapeutic ranges: Venous thromboembolism prophylaxis or treatment: 2.0-3.0 CARDIOLOGY Standard range: 2.0-3.0 High-intensity range: 2.5-3.5 Refer to indication-specific guidelines for appropriate target ranges for prosthetic heart valve replacement. Current interpretive data was last revised on 2019. Blood 02/21/2024 2:06 PM SALES ORDER CLERK 02/21/2024 2:24 PM SALES ORDER CLERK Rhoda LEE LAB BLOOD ORDERABLES Final Result Performing Organization Address [facility] [place] [address] * Magnesium (02/21/2024 2:06 PM SALES ORDER CLERK) Magnesium 1.9 1.4 - 2.5 mg/dL Blood 02/21/2024 2:06 PM SALES ORDER CLERK 02/21/2024 2:24 PM SALES ORDER CLERK Rhoda LEE LAB BLOOD ORDERABLES Final Result Performing Organization Address [facility] de Phone Number [facility] [place] [address] * (ABNORMAL) Renal function panel (02/21/2024 2:06 PM SALES ORDER CLERK) [facility] Sodium 140 135 - 145 mmol/L Potassium, pl 4.9 3.3 - 4.9 mmol/L [facility] Chloride 107 97 - 110 mmol/L [facility] CO2 23 22 - 32 mmol/L [facility] Anion gap 10 2 - 15 mmol/L [facility] BUN 45(H) 6 - 25 mg/dL [facility] Creatinine 3.25(H) 0.80 - 1.30 mg/dL [facility] Glucose 145 70 - 199 mg/dL [facility] Comment: Interpretive Data Fasting glucose >/= 126 [...] 2022. Calcium 9.4 8.5 - 10.3 mg/dL [facility] Phosphorus, pl 4.2 2.3 - 4.5 mg/dL [facility] Albumin 3.7 3.5 - 5.0 g/dL [facility] Blood 02/21/2024 2:06 PM SALES ORDER CLERK 02/21/2024 2:24 PM SALES ORDER CLERK us Rhoda LEE LAB BLOOD ORDERABLES Final Result [facility] [place] [address] * ECG 12 lead (02/17/2024 4:29 PM SALES ORDER CLERK) us Marian Merino MD ECG ORDERABLES Edited Res ult - Final * CT Abdomen Pelvis WO Contrast (02/17/2024 11:48 AM SALES ORDER CLERK) Anatomical Region Laterality Modality Body N/A Computed Tomogra phy 02/17/2024 12:1 1 PM SALES ORDER CLERK Impressions 02/17/2024 12:37 PM SALES ORDER CLERK 1. Postsurgical changes of prior right lower [...] Kathy Turpin M.D. Narrative 02/17/2024 12:37 PM SALES ORDER CLERK EXAMINATION: Computed tomography of the abdomen and [...] in the urinary bladder without hydronephrosis. Atrophic timbi-sha shoshone bilateral kidneys with extensive atherosclerotic calcifications of [...] in the urinary bladder without hydronephrosis. Atrophic [place]oshone bilateral kidneys with extensive atherosclerotic calcifications of [...] PM. Electronically signed by: Kathy Turpin M.D. us Ayush Galvez MD IMG CT PROCEDURES Final Res ult * (ABNORMAL) eGFR (02/17/2024 10:25 AM SALES ORDER CLERK) eGFR 23(L) >=60 mL/min/1. 73 m2 Comment: [...] reviewed 2020. Blood 02/17/2024 10:2 5 AM SALES ORDER CLERK 02/17/2024 10:57 AM SALES ORDER CLERK us Jack Morrison MD LAB BLOOD ORDERABLES Final R esult [facility] Department [place] [address] * (ABNORMAL) Differential, auto (02/17/2024 10:25 AM SALES ORDER CLERK) Neutrophil abs 3.9 1.5 - 6.5 K/cumm Imm gran abs 0.0 0.0 - 0.1 K/cumm [facility] Lymphocyte abs 0.2(L) 0.8 - 3.3 K/cumm [facility] Monocyte abs 0.2 0.2 - 0.8 K/cumm [facility] Eosinophil abs 0.1 0.0 - 0.5 K/cumm [facility] Basophil abs 0.1 0.0 - 0.1 K/cumm [facility] Neutrophil pct 86.9 % [facility] Comment: Interpretive Data Percent cell count reference ranges are not reported, since discordance with absolute values may lead to misinterpretation of CBC data. Current Interpretive Data was last revised on 2017. Imm gran pct 0.7 % [facility] Comment: Interpretive Data Percent cell count reference ranges are not reported, since discordance with absolute values may lead to misinterpretation of CBC data. Current Interpretive Data was last revised on 2017. Lymphocyte pct 3.8 % [facility] Comment: Interpretive Data Percent cell count reference ranges are not reported, since discordance with absolute values may lead to misinterpretation of CBC data. Current Interpretive Data was last revised on 2017. Monocyte pct 5.1 % [facility] Comment: Interpretive Data Percent cell count reference ranges are not reported, since discordance with absolute values may lead to misinterpretation of CBC data. Current Interpretive Data was last revised on 2017. Eosinophil pct 2.2 % [facility] Comment: Interpretive Data Percent cell count reference ranges are not reported, since discordance with absolute values may lead to misinterpretation of CBC data. Current Interpretive Data was last revised on 2017. Basophil pct 1.3 % [facility] Comment: Interpretive Data Percent cell count reference ranges are not reported, since discordance with absolute values may lead to misinterpretation of CBC data. Current Interpretive Data was last revised on 2017. Blood 02/17/2024 10:2 5 AM SALES ORDER CLERK 02/17/2024 10:57 AM SALES ORDER CLERK us Jack Morrison MD LAB BLOOD ORDERABLES Final R esult [facility] [place] [address] * (ABNORMAL) CBC with auto differential (02/17/2024 10:25 AM SALES ORDER CLERK) [facility] WBC 4.5 3.8 - 9.9 K/cumm Hgb 11.4(L) 13.0 - 17.5 g/dL [facility] Hct 34.8(L) 38.9 - 50.3 % [facility] Plt 144(L) 150 - 400 K/cumm [facility] MPV 10.3 9.1 - 12.3 fL [facility] RBC 3.43(L) 4.30 - 5.80 M/cumm [facility] MCV 101.5(H) 81.3 - 96.4 fL [facility] MCH 33.2 27.1 - 33.3 pg [facility] MCHC 32.8 32.3 - 35.7 g/dL [facility] RDW CV 17.3(H) 11.1 - 14.9 % [facility] RDW SD 64.6(H) 35.7 - 48.1 fL [facility] NRBC abs 0.00 0.00 - 0.01 K/cumm [facility] Blood 02/17/2024 10:2 5 AM SALES ORDER CLERK 02/17/2024 10:57 AM SALES ORDER CLERK us Jack Morrison MD LAB BLOOD ORDERABLES Final R esult [facility] [place] [address] * Tacrolimus level random (02/17/2024 10:25 AM SALES ORDER CLERK) [facility] Tacrolimus random 2.4 ng/mL Comment: Interpretive Data Testing performed by liquid chromatography-tandem mass spectrometry. Therapeutic concentrations vary depending on type of transplanted organ and time elapsed since transplant. Typical trough concentrations range from 5-15 ng/mL. This test was developed and its performance characteristics determined by the [facility] consistent with CLIA requirements. This test has not been cleared or approved by the [place] Food and Drug administration. Current interpretive data last reviewed 2019. Blood 02/17/2024 10:2 5 AM SALES ORDER CLERK 02/17/2024 10:57 AM SALES ORDER CLERK Result [facility] Jack Morrison MD LAB BLOOD ORDERABLES Final R esult Performing Organization Address [facility] [place] [address] * Hepatitis B (HBV) DNA PCR, quantitative Blood (02/17/2024 10:25 AM SALES ORDER CLERK) Pathologist [facility] [place] HBV DNA Result Not Detected [facility] Comment: The quantifiable range of this assay is 10 IU/mL to 1,000,000,000 IU/mL (1.00 log IU/mL to 9.00 log IU/mL). Testing was performed by the [employer] HBV Test version 2.0 ([employer] Testing performed at [facility] Current Interpretive Data was last revised on 2020. Blood 02/17/2024 10:2 5 AM SALES ORDER CLERK 02/17/2024 11:20 AM SALES ORDER CLERK Result [facility] Jack Morrison MD LAB MICROBIOLOGY - GENERAL O RDERABLES Final Result Performing Organization Address [facility] [place] [address] [facility] * HIV-1 RNA PCR, quantitative Blood (02/17/2024 10:25 AM SALES ORDER CLERK) Pathologist [facility] [place] HIV-1 RNA Not Detected [facility] Comment: The quantifiable range of this assay is 20 copies/mL to 10,000,000 copies/mL (1.30 log copies/mL to 7.00 log copies/mL). Testing was performed by the [employer] HIV-1 Test([employer] Testing performed at [facility] Current Interpretive Data was last revised on 2020. Blood 02/17/2024 10:2 5 AM SALES ORDER CLERK 02/17/2024 11:20 AM SALES ORDER CLERK Jack Morrison MD LAB MICROBIOLOGY - GENERAL O RDERABLES Final Result Performing Organization Address [facility] de Phone Number [facility] [place] [address] [facility] * Hepatitis C (HCV) RNA PCR, quantitative Blood (02/17/2024 10:25 AM SALES ORDER CLERK) [facility] HCV RNA result Not Detected [facility] Comment: The quantifiable range of this assay is 15 IU/mL to 100,000,000 IU/mL (1.18 log IU/mL to 8.00 log IU/mL). Testing was performed by the [employer] [employer] HCV Test ([employer] Testing performed at [facility] Current Interpretive Data was last revised on 2020 Blood 02/17/2024 10:2 5 AM SALES ORDER CLERK 02/17/2024 11:20 AM SALES ORDER CLERK us Jack Morrison MD LAB MICROBIOLOGY - GENERAL O RDERABLES Final Result Performing Organization Address [facility] de Phone Number [facility] [place] [address] [facility] * Magnesium (02/17/2024 10:25 AM SALES ORDER CLERK) [facility] Magnesium 1.7 1.4 - 2.5 mg/dL Blood 02/17/2024 10:2 5 AM SALES ORDER CLERK 02/17/2024 10:57 AM SALES ORDER CLERK Jack Morrison MD LAB BLOOD ORDERABLES Final R esult Performing Organization Address [facility] de Phone Number [facility] [place] [address] * (ABNORMAL) Renal function panel (02/17/2024 10:25 AM SALES ORDER CLERK) [facility] Sodium 142 135 - 145 mmol/L Potassium, pl 5.0(H) 3.3 - 4.9 mmol/L [facility] Chloride 107 97 - 110 mmol/L [facility] CO2 21(L) 22 - 32 mmol/L [facility] Anion gap 14 2 - 15 mmol/L [facility] BUN 48(H) 6 - 25 mg/dL [facility] Creatinine 2.98(H) 0.80 - 1.30 mg/dL [facility] Glucose 79 70 - 199 mg/dL [facility] Comment: Interpretive Data Fasting glucose >/= 126 [...] 2022. Calcium 10.0 8.5 - 10.3 mg/dL [facility] Phosphorus, pl 3.2 2.3 - 4.5 mg/dL [facility] Albumin 3.8 3.5 - 5.0 g/dL [facility] Blood 02/17/2024 10:2 5 AM SALES ORDER CLERK 02/17/2024 10:57 AM SALES ORDER CLERK Jack Morrison MD LAB BLOOD ORDERABLES Final R esult [facility] Department [place] [address] * (ABNORMAL) eGFR (02/11/2024 9:00 AM SALES ORDER CLERK) [facility] eGFR 19(L) >=60 mL/min/1. 73 m2 Comment: [...] last reviewed 2020. Blood 02/11/2024 9:00 AM SALES ORDER CLERK 02/11/2024 11:51 AM SALES ORDER CLERK us Rosalie Velásquez NP LAB BLOOD ORDERABLES Final Result [facility] [place] [address] * (ABNORMAL) Differential, auto (02/11/2024 9:00 AM SALES ORDER CLERK) Neutrophil abs 4.6 1.5 - 6.5 K/cumm Imm gran abs 0.0 0.0 - 0.1 K/cumm [facility] Lymphocyte abs 0.2(L) 0.8 - 3.3 K/cumm [facility] Monocyte abs 0.2 0.2 - 0.8 K/cumm [facility] Eosinophil abs 0.1 0.0 - 0.5 K/cumm [facility] Basophil abs 0.1 0.0 - 0.1 K/cumm [facility] Neutrophil pct 89.6 % [facility] Comment: Interpretive Data Percent cell count reference ranges are not reported, since discordance with absolute values may lead to misinterpretation of CBC data. Current Interpretive Data was last revised on 2017. Imm gran pct 0.6 % [facility] Comment: Interpretive Data Percent cell count reference ranges are not reported, since discordance with absolute values may lead to misinterpretation of CBC data. Current Interpretive Data was last revised on 2017. Lymphocyte pct 3.3 % [facility] Comment: Interpretive Data Percent cell count reference ranges are not reported, since discordance with absolute values may lead to misinterpretation of CBC data. Current Interpretive Data was last revised on 2017. Monocyte pct 3.9 % [facility] Comment: Interpretive Data Percent cell count reference ranges are not reported, since discordance with absolute values may lead to misinterpretation of CBC data. Current Interpretive Data was last revised on 2017. Eosinophil pct 1.6 % [facility] Comment: Interpretive Data Percent cell count reference ranges are not reported, since discordance with absolute values may lead to misinterpretation of CBC data. Current Interpretive Data was last revised on 2017. Basophil pct 1.0 % [facility] Comment: Interpretive Data Percent cell count reference ranges are not reported, since discordance with absolute values may lead to misinterpretation of CBC data. Current Interpretive Data was last revised on 2017. Blood 02/11/2024 9:00 AM SALES ORDER CLERK 02/11/2024 11:48 AM SALES ORDER CLERK us Rosalie Velásquez NP LAB BLOOD ORDERABLES Final Result [facility] [place] [address] * Tacrolimus level trough (02/11/2024 9:00 AM SALES ORDER CLERK) Tacrolimus trough 7.8 ng/mL Comment: Interpretive Data Testing performed by liquid chromatography-tandem mass spectrometry. Therapeutic concentrations vary depending on type of transplanted organ and time elapsed since transplant. Typical trough concentrations range from 5-15 ng/mL. This test was developed and its performance characteristics determined by the [facility] consistent with CLIA requirements. This test has not been cleared or approved by the [place] Food and Drug administration. Current interpretive data last reviewed 2019. Blood 02/11/2024 9:00 AM SALES ORDER CLERK 02/11/2024 11:48 AM SALES ORDER CLERK us Rosalie Velásquez [employer] LAB BLOOD ORDERABLES Final Result Performing Organization Address [facility]/ZIP Co de Phone Number [facility] [place] [address] * (ABNORMAL) CBC with auto differential (02/11/2024 9:00 AM SALES ORDER CLERK) WBC 5.1 3.8 - 9.9 K/cumm Hgb 10.0(L) 13.0 - 17.5 g/dL [facility] Hct 30.9(L) 38.9 - 50.3 % [facility] Plt 168 150 - 400 K/cumm [facility] MPV 9.9 9.1 - 12.3 fL [facility] RBC 2.94(L) 4.30 - 5.80 M/cumm [facility] MCV 105.1(H) 81.3 - 96.4 fL [facility] MCH 34.0(H) 27.1 - 33.3 pg [facility] MCHC 32.4 32.3 - 35.7 g/dL [facility] RDW CV 18.3(H) 11.1 - 14.9 % [facility] RDW SD 70.2(H) 35.7 - 48.1 fL [facility] NRBC abs 0.00 0.00 - 0.01 K/cumm [facility] Blood 02/11/2024 9:00 AM SALES ORDER CLERK 02/11/2024 11:48 AM SALES ORDER CLERK Rosalie Velásquez NP LAB BLOOD ORDERABLES Final Result [facility] [place] [address] * Magnesium (02/11/2024 9:00 AM SALES ORDER CLERK) Pathologist [facility] [place] Magnesium 1.9 1.4 - 2.5 mg/dL Blood 02/11/2024 9:00 AM SALES ORDER CLERK 02/11/2024 11:48 AM SALES ORDER CLERK Rosalie Velásquez [employer] LAB BLOOD ORDERABLES Final Result [facility] [place] [address] * (ABNORMAL) Renal function panel (02/11/2024 9:00 AM SALES ORDER CLERK) Sodium 141 135 - 145 mmol/L Potassium, pl 4.9 3.3 - 4.9 mmol/L [facility] Chloride 105 97 - 110 mmol/L [facility] CO2 25 22 - 32 mmol/L [facility] Anion gap 11 2 - 15 mmol/L [facility] BUN 61(H) 6 - 25 mg/dL [facility] Creatinine 3.49(H) 0.80 - 1.30 mg/dL [facility] Glucose 103 70 - 199 mg/dL [facility] Comment: Interpretive Data Fasting glucose >/= 126 [...] 2022. Calcium 9.8 8.5 - 10.3 mg/dL [facility] Phosphorus, pl 4.6(H) 2.3 - 4.5 mg/dL [facility] Albumin 3.7 3.5 - 5.0 g/dL [facility] Blood 02/11/2024 9:00 AM SALES ORDER CLERK 02/11/2024 11:48 AM SALES ORDER CLERK Rosalie Velásquez [employer] LAB BLOOD ORDERABLES Final Result [facility] [place] [address] * CT Abdomen Pelvis WO Contrast (02/09/2024 3:42 PM SALES ORDER CLERK) Anatomical Region Laterality Modality Body N/A Computed Tomogra phy 02/09/2024 4:37 PM SALES ORDER CLERK Impressions 02/09/2024 4:44 PM SALES ORDER CLERK Postsurgical changes of right iliac fossa kidney [...] Mohsen Vallejo M.D. Narrative 02/09/2024 4:44 PM SALES ORDER CLERK EXAMINATION: Computed tomography of the abdomen and [...] ductal dilatation. Normal spleen, adrenals, pancreas. Atrophic [place] kidneys. No stones or hydronephrosis of the [place] kidneys. Postsurgical changes of right iliac fossa [...] ductal dilatation. Normal spleen, adrenals, pancreas. Atrophic [place] kidneys. No stones or hydronephrosis of the [place] kidneys. Postsurgical changes of right iliac fossa [...] * Creatinine, body fluid (02/09/2024 3:29 PM SALES ORDER CLERK) Specimen type, fld Peritoneal Creatinine, fld 4.16 mg/dL [facility] Comment: The above specimen type is not [...] 2018. Chapter 43, Body Fluids, p. 925 [employer] Test directory, Body Fluid Reference Intervals and/or Interpretative Information. [email or web address] Current Interpretive Data was last revised 2018. Fluid 02/09/2024 3:29 PM SALES ORDER CLERK 02/09/2024 6:15 PM SALES ORDER CLERK Vikki Nowak NP LAB BODY FLUIDS AND STOOLS OR DERABLES Final Result [facility] [place] [address] * (ABNORMAL) eGFR (02/09/2024 9:00 AM SALES ORDER CLERK) eGFR 16(L) >=60 mL/min/1. 73 m2 Comment: [...] last reviewed 2020. Blood 02/09/2024 9:00 AM SALES ORDER CLERK 02/09/2024 12:18 PM SALES ORDER CLERK us Not[employer] Unknown LAB BLOOD ORDERABLES Final Res ult [facility] [place] [address] * (ABNORMAL) Differential, auto (02/09/2024 9:00 AM SALES ORDER CLERK) Neutrophil abs 4.5 1.5 - 6.5 K/cumm Imm gran abs 0.0 0.0 - 0.1 K/cumm [facility] Lymphocyte abs 0.1(L) 0.8 - 3.3 K/cumm [facility] Monocyte abs 0.2 0.2 - 0.8 K/cumm [facility] Eosinophil abs 0.1 0.0 - 0.5 K/cumm [facility] Basophil abs 0.1 0.0 - 0.1 K/cumm [facility] Neutrophil pct 89.8 % [facility] Comment: Interpretive Data Percent cell count reference ranges are not reported, since discordance with absolute values may lead to misinterpretation of CBC data. Current Interpretive Data was last revised on 2017. Imm gran pct 0.2 % [facility] Comment: Interpretive Data Percent cell count reference ranges are not reported, since discordance with absolute values may lead to misinterpretation of CBC data. Current Interpretive Data was last revised on 2017. Lymphocyte pct 2.8 % [facility] Comment: Interpretive Data Percent cell count reference ranges are not reported, since discordance with absolute values may lead to misinterpretation of CBC data. Current Interpretive Data was last revised on 2017. Monocyte pct 4.2 % [facility] Comment: Interpretive Data Percent cell count reference ranges are not reported, since discordance with absolute values may lead to misinterpretation of CBC data. Current Interpretive Data was last revised on 2017. Eosinophil pct 2.0 % [facility] Comment: Interpretive Data Percent cell count reference ranges are not reported, since discordance with absolute values may lead to misinterpretation of CBC data. Current Interpretive Data was last revised on 2017. Basophil pct 1.0 % [facility] Comment: Interpretive Data Percent cell count reference ranges are not reported, since discordance with absolute values may lead to misinterpretation of CBC data. Current Interpretive Data was last revised on 2017. Blood 02/09/2024 9:00 AM SALES ORDER CLERK 02/09/2024 11:59 AM SALES ORDER CLERK [employer] Unknown LAB BLOOD ORDERABLES Final Res ult Performing Organization Address [facility] de Phone Number [facility] [place] [address] * Tacrolimus level trough (02/09/2024 9:00 AM SALES ORDER CLERK) Pathologist [facility] [place] Tacrolimus trough 7.5 ng/mL Comment: Interpretive Data Testing performed by liquid chromatography-tandem mass spectrometry. Therapeutic concentrations vary depending on type of transplanted organ and time elapsed since transplant. Typical trough concentrations range from 5-15 ng/mL. This test was developed and its performance characteristics determined by the [facility] consistent with CLIA requirements. This test has not been cleared or approved by the [place] Food and Drug administration. Current interpretive data last reviewed 2019. Blood 02/09/2024 9:00 AM SALES ORDER CLERK 02/09/2024 12:01 PM SALES ORDER CLERK Notinfile Unknown LAB BLOOD ORDERABLES Final Res ult Performing Organization Address [facility] Co de Phone Number [facility] [place] [address] * (ABNORMAL) CBC with auto differential (02/09/2024 9:00 AM SALES ORDER CLERK) Pathologist [facility] [place] WBC 5.0 3.8 - 9.9 K/cumm Hgb 9.7(L) 13.0 - 17.5 g/dL [facility] Hct 30.2(L) 38.9 - 50.3 % [facility] Plt 163 150 - 400 K/cumm [facility] MPV 10.4 9.1 - 12.3 fL [facility] RBC 2.91(L) 4.30 - 5.80 M/cumm [facility] MCV 103.8(H) 81.3 - 96.4 fL [facility] MCH 33.3 27.1 - 33.3 pg [facility] MCHC 32.1(L) 32.3 - 35.7 g/dL [facility] RDW CV 18.4(H) 11.1 - 14.9 % [facility] RDW SD 69.5(H) 35.7 - 48.1 fL [facility] NRBC abs 0.00 0.00 - 0.01 K/cumm [facility] Blood 02/09/2024 9:00 AM SALES ORDER CLERK 02/09/2024 11:59 AM SALES ORDER CLERK us Notinfile Unknown LAB BLOOD ORDERABLES Final Res ult Performing Organization Address [facility] de Phone Number [facility] [place] [address] * Magnesium (02/09/2024 9:00 AM SALES ORDER CLERK) [facility] Magnesium 2.0 1.4 - 2.5 mg/dL Blood 02/09/2024 9:00 AM SALES ORDER CLERK 02/09/2024 11:59 AM SALES ORDER CLERK us Notinfile Unknown LAB BLOOD ORDERABLES Final Res ult Performing Organization Address [facility] de Phone Number [facility] [place] [address] * (ABNORMAL) Renal function panel (02/09/2024 9:00 AM SALES ORDER CLERK) Pathologist [facility] [place] Sodium 143 135 - 145 mmol/L Potassium, pl 4.6 3.3 - 4.9 mmol/L [facility] Chloride 104 97 - 110 mmol/L [facility] CO2 27 22 - 32 mmol/L [facility] Anion gap 12 2 - 15 mmol/L [facility] BUN 60(H) 6 - 25 mg/dL [facility] Creatinine 3.91(H) 0.80 - 1.30 mg/dL [facility] Glucose 129 70 - 199 mg/dL [facility] Comment: Interpretive Data Fasting glucose >/= 126 [...] 2022. Calcium 9.9 8.5 - 10.3 mg/dL [facility] Phosphorus, pl 4.5 2.3 - 4.5 mg/dL [facility] Albumin 3.7 3.5 - 5.0 g/dL [facility] Blood 02/09/2024 9:00 AM SALES ORDER CLERK 02/09/2024 11:59 AM SALES ORDER CLERK us Notinfile Unknown LAB BLOOD ORDERABLES Final Res ult [facility] [place] [address] * (ABNORMAL) eGFR (02/04/2024 8:52 AM SALES ORDER CLERK) eGFR 17(L) >=60 mL/min/1. 73 m2 Comment: Interpretive Data Reference Interval Normal >/= 90 mL/min/1.73m2 Mildly decreased* 60 - 89 mL/min/1.73m2 Mildly to moderately decreased 45 - 59 mL/min/1.73m2 Moderately to severely decreased 30 - 44 mL/min/1.73m2 Severely decreased 15 - 29 mL/min/1.73m2 Kidney Failure < 15 mL/min/1.73m2 *Relative to young adult level Estimated glomerular filtration rate is determined by the 2021 CKD-EPI equation recommended by the National Kidney [...] last reviewed 2020. Blood 02/04/2024 8:52 AM SALES ORDER CLERK 02/04/2024 1:15 PM SALES ORDER CLERK us Notinfile Unknown LAB BLOOD ORDERABLES Final Res ult [facility] [place] [address] * (ABNORMAL) Differential, auto (02/04/2024 8:52 AM SALES ORDER CLERK) Neutrophil abs 6.1 1.5 - 6.5 K/cumm Imm gran abs 0.0 0.0 - 0.1 K/cumm [facility] Lymphocyte abs 0.1(L) 0.8 - 3.3 K/cumm [facility] Monocyte abs 0.4 0.2 - 0.8 K/cumm [facility] Eosinophil abs 0.1 0.0 - 0.5 K/cumm [facility] Basophil abs 0.0 0.0 - 0.1 K/cumm [facility] Neutrophil pct 90.2 % [facility] Comment: Interpretive Data Percent cell count reference ranges are not reported, since discordance with absolute values may lead to misinterpretation of CBC data. Current Interpretive Data was last revised on 2017. Imm gran pct 0.6 % [facility] Comment: Interpretive Data Percent cell count reference ranges are not reported, since discordance with absolute values may lead to misinterpretation of CBC data. Current Interpretive Data was last revised on 2017. Lymphocyte pct 1.9 % [facility] Comment: Interpretive Data Percent cell count reference ranges are not reported, since discordance with absolute values may lead to misinterpretation of CBC data. Current Interpretive Data was last revised on 2017. Monocyte pct 5.4 % [facility] Comment: Interpretive Data Percent cell count reference ranges are not reported, since discordance with absolute values may lead to misinterpretation of CBC data. Current Interpretive Data was last revised on 2017. Eosinophil pct 1.5 % [facility] Comment: Interpretive Data Percent cell count reference ranges are not reported, since discordance with absolute values may lead to misinterpretation of CBC data. Current Interpretive Data was last revised on 2017. Basophil pct 0.4 % [facility] Comment: Interpretive Data Percent cell count reference ranges are not reported, since discordance with absolute values may lead to misinterpretation of CBC data. Current Interpretive Data was last revised on 2017. Blood 02/04/2024 8:52 AM SALES ORDER CLERK 02/04/2024 1:09 PM SALES ORDER CLERK us Notinfile Unknown LAB BLOOD ORDERABLES Final Res ult Performing Organization Address [facility] de Phone Number [facility] [place] [address] * Tacrolimus level trough (02/04/2024 8:52 AM SALES ORDER CLERK) [facility] Signature Tacrolimus trough 7.8 ng/mL Comment: Interpretive Data Testing performed by liquid chromatography-tandem mass spectrometry. Therapeutic concentrations vary depending on type of transplanted organ and time elapsed since transplant. Typical trough concentrations range from 5-15 ng/mL. This test was developed and its performance characteristics determined by the [facility] consistent with CLIA requirements. This test has not been cleared or approved by the US Food and Drug administration. Current interpretive data last reviewed 2019. Blood 02/04/2024 8:52 AM SALES ORDER CLERK 02/04/2024 1:09 PM SALES ORDER CLERK us Notinfile Unknown LAB BLOOD ORDERABLES Final Res ult Performing Organization Address [facility] de Phone Number [facility] [place] [address] * (ABNORMAL) CBC with auto differential (02/04/2024 8:52 AM SALES ORDER CLERK) WBC 6.8 3.8 - 9.9 K/cumm Hgb 9.1(L) 13.0 - 17.5 g/dL [facility] Hct 27.6(L) 38.9 - 50.3 % [facility] Plt 141(L) 150 - 400 K/cumm [facility] MPV 10.8 9.1 - 12.3 fL [facility] RBC 2.71(L) 4.30 - 5.80 M/cumm [facility] MCV 101.8(H) 81.3 - 96.4 fL [facility] MCH 33.6(H) 27.1 - 33.3 pg [facility] MCHC 33.0 32.3 - 35.7 g/dL [facility] RDW CV 18.4(H) 11.1 - 14.9 % [facility] RDW SD 67.1(H) 35.7 - 48.1 fL [facility] NRBC abs 0.00 0.00 - 0.01 K/cumm [facility] Blood 02/04/2024 8:52 AM SALES ORDER CLERK 02/04/2024 1:09 PM SALES ORDER CLERK us Notinfile Unknown LAB BLOOD ORDERABLES Final Res ult Performing Organization Address [facility] Co de Phone Number [facility] [place] [address] * Magnesium (02/04/2024 8:52 AM SALES ORDER CLERK) Pathologist [facility] [place] Magnesium 2.2 1.4 - 2.5 mg/dL Blood 02/04/2024 8:52 AM SALES ORDER CLERK 02/04/2024 1:07 PM SALES ORDER CLERK us Notinfile Unknown LAB BLOOD ORDERABLES Final Res ult Performing Organization Address City/[facility]/ZIP Co de Phone Number [facility] [place] [address] * Creatinine, body fluid (02/04/2024 8:52 AM SALES ORDER CLERK) Specimen type, fld CONSTANZA FLUID. PG Creatinine, fld 3.53 mg/dL [facility] Comment: The above specimen type is not [...] 2018. Chapter 43, Body Fluids, p. 925 [employer] Test directory, Body Fluid Reference Intervals and/or Interpretative Information. [email or web address] Current Interpretive Data was last revised 2018. Fluid 02/04/2024 8:52 AM SALES ORDER CLERK 02/04/2024 1:09 PM SALES ORDER CLERK us Notinfile Unknown LAB BODY FLUIDS AND STOOLS ORD ERABLES Final Result [facility] [place] [address] * (ABNORMAL) Renal function panel (02/04/2024 8:52 AM SALES ORDER CLERK) Pathologist [facility] [place] Sodium 138 135 - 145 mmol/L Potassium, pl 3.8 3.3 - 4.9 mmol/L [facility] Chloride 98 97 - 110 mmol/L [facility] CO2 31 22 - 32 mmol/L [facility] Anion gap 9 2 - 15 mmol/L [facility] BUN 38(H) 6 - 25 mg/dL [facility] Creatinine 3.73(H) 0.80 - 1.30 mg/dL [facility] Glucose 126 70 - 199 mg/dL [facility] Comment: Interpretive Data Fasting glucose >/= 126 [...] 2022. Calcium 9.4 8.5 - 10.3 mg/dL [facility] Phosphorus, pl 4.9(H) 2.3 - 4.5 mg/dL [facility] Albumin 3.5 3.5 - 5.0 g/dL [facility] Blood 02/04/2024 8:52 AM SALES ORDER CLERK 02/04/2024 1:07 PM SALES ORDER CLERK us Notinfile Unknown LAB BLOOD ORDERABLES Final Res ult [facility] [place] [address] * (ABNORMAL) eGFR (02/02/2024 9:00 AM SALES ORDER CLERK) eGFR 15(L) >=60 mL/min/1. 73 m2 Comment: [...] last reviewed 2020. Blood 02/02/2024 9:00 AM SALES ORDER CLERK 02/02/2024 7:39 PM SALES ORDER CLERK Matthew Marti MD LAB BLOOD ORDERABLES Final Result [facility] [place] [address] * (ABNORMAL) Differential, auto (02/02/2024 9:00 AM SALES ORDER CLERK) Neutrophil abs 6.9(H) 1.5 - 6.5 K/cumm Imm gran abs 0.1 0.0 - 0.1 K/cumm [facility] Lymphocyte abs 0.1(L) 0.8 - 3.3 K/cumm [facility] Monocyte abs 0.5 0.2 - 0.8 K/cumm [facility] Eosinophil abs 0.2 0.0 - 0.5 K/cumm [facility] Basophil abs 0.0 0.0 - 0.1 K/cumm [facility] Neutrophil pct 88.8 % [facility] Comment: Interpretive Data Percent cell count reference ranges are not reported, since discordance with absolute values may lead to misinterpretation of CBC data. Current Interpretive Data was last revised on 2017. Imm gran pct 1.0 % [facility] Comment: Interpretive Data Percent cell count reference ranges are not reported, since discordance with absolute values may lead to misinterpretation of CBC data. Current Interpretive Data was last revised on 2017. Lymphocyte pct 1.8 % [facility] Comment: Interpretive Data Percent cell count reference ranges are not reported, since discordance with absolute values may lead to misinterpretation of CBC data. Current Interpretive Data was last revised on 2017. Monocyte pct 5.8 % [facility] Comment: Interpretive Data Percent cell count reference ranges are not reported, since discordance with absolute values may lead to misinterpretation of CBC data. Current Interpretive Data was last revised on 2017. Eosinophil pct 2.1 % [facility] Comment: Interpretive Data Percent cell count reference ranges are not reported, since discordance with absolute values may lead to misinterpretation of CBC data. Current Interpretive Data was last revised on 2017. Basophil pct 0.5 % [facility] Comment: Interpretive Data Percent cell count reference ranges are not reported, since discordance with absolute values may lead to misinterpretation of CBC data. Current Interpretive Data was last revised on 2017. Blood 02/02/2024 9:00 AM SALES ORDER CLERK 02/02/2024 7:37 PM SALES ORDER CLERK Matthew Marti MD LAB BLOOD ORDERABLES Final Result Performing Organization Address [facility] de Phone Number [facility] [place] [address] * Tacrolimus level trough (02/02/2024 9:00 AM SALES ORDER CLERK) [facility] Tacrolimus trough 8.2 ng/mL Comment: Interpretive Data Testing performed by liquid chromatography-tandem mass spectrometry. Therapeutic concentrations vary depending on type of transplanted organ and time elapsed since transplant. Typical trough concentrations range from 5-15 ng/mL. This test was developed and its performance characteristics determined by the [facility] consistent with CLIA requirements. This test has not been cleared or approved by the US Food and Drug administration. Current interpretive data last reviewed 2019. Blood 02/02/2024 9:00 AM SALES ORDER CLERK 02/02/2024 7:37 PM SALES ORDER CLERK Matthew Marti MD LAB BLOOD ORDERABLES Final Result Performing Organization Address [facility] de Phone Number [facility] [place] [address] * (ABNORMAL) CBC with auto differential (02/02/2024 9:00 AM SALES ORDER CLERK) [facility] WBC 7.7 3.8 - 9.9 K/cumm Hgb 9.6(L) 13.0 - 17.5 g/dL [facility] Hct 29.6(L) 38.9 - 50.3 % [facility] Plt 180 150 - 400 K/cumm [facility] MPV 11.1 9.1 - 12.3 fL [facility] RBC 2.92(L) 4.30 - 5.80 M/cumm [facility] MCV 101.4(H) 81.3 - 96.4 fL [facility] MCH 32.9 27.1 - 33.3 pg [facility] MCHC 32.4 32.3 - 35.7 g/dL [facility] RDW CV 18.3(H) 11.1 - 14.9 % [facility] RDW SD 64.1(H) 35.7 - 48.1 fL [facility] NRBC abs 0.02(H) 0.00 - 0.01 K/cumm [facility] Blood 02/02/2024 9:00 AM SALES ORDER CLERK 02/02/2024 7:37 PM SALES ORDER CLERK Matthew Marti MD LAB BLOOD ORDERABLES Final Result Performing Organization Address [facility] Co de Phone Number [facility] [place] [address] * Magnesium (02/02/2024 9:00 AM SALES ORDER CLERK) [facility] Magnesium 2.0 1.4 - 2.5 mg/dL Blood 02/02/2024 9:00 AM SALES ORDER CLERK 02/02/2024 7:36 PM SALES ORDER CLERK Matthew Marti MD LAB BLOOD ORDERABLES Final Result Performing Organization Address City/[facility] de Phone Number [facility] [place] [address] * (ABNORMAL) Renal function panel (02/02/2024 9:00 AM SALES ORDER CLERK) Pathologist [facility] [place] Sodium 141 135 - 145 mmol/L Potassium, pl 3.4 3.3 - 4.9 mmol/L [facility] Chloride 95(L) 97 - 110 mmol/L [facility] CO2 29 22 - 32 mmol/L [facility] Anion gap 17(H) 2 - 15 mmol/L [facility] BUN 41(H) 6 - 25 mg/dL [facility] Creatinine 4.08(H) 0.80 - 1.30 mg/dL [facility] Glucose 82 70 - 199 mg/dL [facility] Comment: Interpretive Data Fasting glucose >/= 126 [...] 2022. Calcium 9.4 8.5 - 10.3 mg/dL [facility] Phosphorus, pl 5.3(H) 2.3 - 4.5 mg/dL [facility] Albumin 3.6 3.5 - 5.0 g/dL [facility] Blood 02/02/2024 9:00 AM SALES ORDER CLERK 02/02/2024 7:36 PM SALES ORDER CLERK us Matthew Marti MD LAB BLOOD ORDERABLES Final Result Performing Organization Address City/[facility] Co de Phone Number [facility] [place] [address] * POCT glucose (01/28/2024 5:58 PM SALES ORDER CLERK) Glucose, POC 163 70 - 199 mg/dL Blood 01/28/2024 5:58 PM SALES ORDER CLERK 01/28/2024 5:58 PM SALES ORDER CLERK us Ayush Galvez MD LAB POCT ORDERABLES - DEVIC E Final Result Performing Organization Address City/[facility]/ZIP Co de Phone Number [facility] [place] [address] * POCT glucose (01/28/2024 12:47 PM SALES ORDER CLERK) Glucose, POC 170 70 - 199 mg/dL Blood 01/28/2024 12:4 7 PM SALES ORDER CLERK 01/28/2024 12:47 PM SALES ORDER CLERK Ayush Galvez MD LAB POCT ORDERABLES - DEVIC E Final Result Performing Organization Address [facility] de Phone Number [facility] [place] [address] * POCT glucose (01/28/2024 8:44 AM SALES ORDER CLERK) Glucose, POC 113 70 - 199 mg/dL Blood 01/28/2024 8:44 AM SALES ORDER CLERK 01/28/2024 8:44 AM SALES ORDER CLERK Ayush Galvez MD LAB POCT ORDERABLES - DEVIC E Final Result Performing Organization Address [facility] Phone Number [facility] [place] [address] * (ABNORMAL) eGFR (01/28/2024 4:15 AM SALES ORDER CLERK) eGFR 13(L) >=60 mL/min/1. 73 m2 Comment: [...] last reviewed 2020. Blood 01/28/2024 4:15 AM SALES ORDER CLERK 01/28/2024 4:29 AM SALES ORDER CLERK us Ayush Galvez MD LAB BLOOD ORDERABLES Final Result [facility] [place] [address] * (ABNORMAL) Differential, auto (01/28/2024 4:15 AM SALES ORDER CLERK) Neutrophil abs 7.5(H) 1.5 - 6.5 K/cumm Imm gran abs 0.5(H) 0.0 - 0.1 K/cumm [facility] Lymphocyte abs 0.1(L) 0.8 - 3.3 K/cumm [facility] Monocyte abs 0.5 0.2 - 0.8 K/cumm [facility] Eosinophil abs 0.1 0.0 - 0.5 K/cumm [facility] Basophil abs 0.0 0.0 - 0.1 K/cumm [facility] Neutrophil pct 87.1 % [facility] Comment: Interpretive Data Percent cell count reference ranges are not reported, since discordance with absolute values may lead to misinterpretation of CBC data. Current Interpretive Data was last revised on 2017. Imm gran pct 5.3 % [facility] Comment: Interpretive Data Percent cell count reference ranges are not reported, since discordance with absolute values may lead to misinterpretation of CBC data. Current Interpretive Data was last revised on 2017. Lymphocyte pct 1.4 % [facility] Comment: Interpretive Data Percent cell count reference ranges are not reported, since discordance with absolute values may lead to misinterpretation of CBC data. Current Interpretive Data was last revised on 2017. Monocyte pct 5.4 % [facility] Comment: Interpretive Data Percent cell count reference ranges are not reported, since discordance with absolute values may lead to misinterpretation of CBC data. Current Interpretive Data was last revised on 2017. Eosinophil pct 0.6 % [facility] Comment: Interpretive Data Percent cell count reference ranges are not reported, since discordance with absolute values may lead to misinterpretation of CBC data. Current Interpretive Data was last revised on 2017. Basophil pct 0.2 % [facility] Comment: Interpretive Data Percent cell count reference ranges are not reported, since discordance with absolute values may lead to misinterpretation of CBC data. Current Interpretive Data was last revised on 2017. Blood 01/28/2024 4:15 AM SALES ORDER CLERK 01/28/2024 4:27 AM SALES ORDER CLERK Ayush Galvez MD LAB BLOOD ORDERABLES Final Result Performing Organization Address [facility] de Phone Number [facility] [place] [address] * Tacrolimus level trough (01/28/2024 4:15 AM SALES ORDER CLERK) Pathologist [facility] [place] Tacrolimus trough 12.2 ng/mL Comment: Interpretive Data Testing performed by liquid chromatography-tandem mass spectrometry. Therapeutic concentrations vary depending on type of transplanted organ and time elapsed since transplant. Typical trough concentrations range from 5-15 ng/mL. This test was developed and its performance characteristics determined by the [facility] consistent with CLIA requirements. This test has not been cleared or approved by the [place] Food and Drug administration. Current interpretive data last reviewed 2019. Blood 01/28/2024 4:15 AM SALES ORDER CLERK 01/28/2024 4:27 AM SALES ORDER CLERK Ayush Galvez MD LAB BLOOD ORDERABLES Final Result Performing Organization Address [facility] Co de Phone Number [facility] [place] [address] * (ABNORMAL) CBC with auto differential (01/28/2024 4:15 AM SALES ORDER CLERK) Pathologist [facility] [place] WBC 8.6 3.8 - 9.9 K/cumm Hgb 9.5(L) 13.0 - 17.5 g/dL [facility] Hct 29.1(L) 38.9 - 50.3 % [facility] Plt 160 150 - 400 K/cumm [facility] MPV 11.1 9.1 - 12.3 fL [facility] RBC 3.06(L) 4.30 - 5.80 M/cumm [facility] MCV 95.1 81.3 - 96.4 fL [facility] MCH 31.0 27.1 - 33.3 pg [facility] MCHC 32.6 32.3 - 35.7 g/dL [facility] RDW CV 17.0(H) 11.1 - 14.9 % [facility] RDW SD 57.3(H) 35.7 - 48.1 fL [facility] NRBC abs 0.06(H) 0.00 - 0.01 K/cumm [facility] Blood 01/28/2024 4:15 AM SALES ORDER CLERK 01/28/2024 4:27 AM SALES ORDER CLERK Ayush Galvez MD LAB BLOOD ORDERABLES Final Result Performing Organization Address [facility] Co de Phone Number [facility] [place] [address] * Magnesium (01/28/2024 4:15 AM SALES ORDER CLERK) [facility] Magnesium 2.1 1.4 - 2.5 mg/dL Blood 01/28/2024 4:15 AM SALES ORDER CLERK 01/28/2024 4:29 AM SALES ORDER CLERK Ayush Galvez MD LAB BLOOD ORDERABLES Final Result Performing Organization Address [facility] [facility] Co de Phone Number [facility] [place] [address] * (ABNORMAL) Renal function panel (01/28/2024 4:15 AM SALES ORDER CLERK) Pathologist [facility] [place] Sodium 139 135 - 145 mmol/L Potassium, pl 3.7 3.3 - 4.9 mmol/L [facility] Chloride 94(L) 97 - 110 mmol/L [facility] CO2 29 22 - 32 mmol/L [facility] Anion gap 16(H) 2 - 15 mmol/L [facility] BUN 39(H) 6 - 25 mg/dL [facility] Creatinine 4.80(H) 0.80 - 1.30 mg/dL [facility] Glucose 126 70 - 199 mg/dL [facility] Comment: Interpretive Data Fasting glucose >/= 126 [...] 2022. Calcium 9.9 8.5 - 10.3 mg/dL [facility] Phosphorus, pl 5.3(H) 2.3 - 4.5 mg/dL [facility] Albumin 3.4(L) 3.5 - 5.0 g/dL [facility] Blood 01/28/2024 4:15 AM SALES ORDER CLERK 01/28/2024 4:29 AM SALES ORDER CLERK Ayush Galvez MD LAB BLOOD ORDERABLES Final Result Performing Organization Address [facility] Co de Phone Number [facility] [place] [address] * POCT glucose (01/27/2024 9:07 PM SALES ORDER CLERK) [facility] Signature Glucose, POC 180 70 - 199 mg/dL Blood 01/27/2024 9:07 PM SALES ORDER CLERK 01/27/2024 9:07 PM SALES ORDER CLERK Ayush Galvez MD LAB POCT ORDERABLES - DEVIC E Final Result Performing Organization Address [facility]/ZIP Co de Phone Number [facility] [place] [address] * (ABNORMAL) POCT glucose (01/27/2024 5:55 PM SALES ORDER CLERK) Glucose, POC 241(H) 70 - 199 mg/dL Blood 01/27/2024 5:55 PM SALES ORDER CLERK 01/27/2024 5:55 PM SALES ORDER CLERK Ayush Galvez MD LAB POCT ORDERABLES - DEVIC E Final Result Performing Organization Address City/[facility]/ZIP Co de Phone Number [facility] [place] [address] * ECG 12 lead (01/27/2024 3:35 PM SALES ORDER CLERK) [facility] Ventricular Rate EKG/Min 82 BPM [facility] QRS-Interval (MSEC) 144 ms [facility] QT-Interval (MSEC) 466 ms [facility] QTc 544 ms [facility] R [place] 4 degrees [facility] T [place] 20 degrees [facility] Diagnosis Atrial fibrillation with a premature ventricular beat or aberrantly conducted beat Non-specific intra-ventricul ar conduction block Abnormal ECG When compared with ECG of 25-JAN-2024 13:31, no significant change Confirmed by OLEKSANDR MATUTE M.D ([id number]) on 01/29/2024 10:04:40 AM [facility] 01/27/2024 3:35 PM SALES ORDER CLERK 01/29/2024 10:04 AM SALES ORDER CLERK Ayush Galvez MD ECG ORDERABLES Final Resul t Performing Organization Address City/[facility]/ZIP Co de Phone Number [facility] * POCT glucose (01/27/2024 12:24 PM SALES ORDER CLERK) Glucose, POC 186 70 - 199 mg/dL Blood 01/27/2024 12:2 4 PM SALES ORDER CLERK 01/27/2024 12:24 PM SALES ORDER CLERK Ayush Galvez MD LAB POCT ORDERABLES - DEVIC E Final Result Performing Organization Address City/[facility] Co de Phone Number [facility] [place] [address] * (ABNORMAL) eGFR (01/27/2024 4:17 AM SALES ORDER CLERK) Pathologist [facility] [place] eGFR 12(L) >=60 mL/min/1. 73 m2 Comment: [...] last reviewed 2020. Blood 01/27/2024 4:17 AM SALES ORDER CLERK 01/27/2024 5:22 AM SALES ORDER CLERK Ayush Galvez MD LAB BLOOD ORDERABLES Final Result Performing Organization Address City/[facility] Co de Phone Number [facility] [place] [address] * (ABNORMAL) Differential, auto (01/27/2024 4:17 AM SALES ORDER CLERK) Pathologist [facility] [place] Neutrophil abs 5.7 1.5 - 6.5 K/cumm Imm gran abs 0.3(H) 0.0 - 0.1 K/cumm [facility] Lymphocyte abs 0.1(L) 0.8 - 3.3 K/cumm [facility] Monocyte abs 0.3 0.2 - 0.8 K/cumm [facility] Eosinophil abs 0.0 0.0 - 0.5 K/cumm [facility] Basophil abs 0.0 0.0 - 0.1 K/cumm [facility] Neutrophil pct 88.4 % [facility] Comment: Interpretive Data Percent cell count reference ranges are not reported, since discordance with absolute values may lead to misinterpretation of CBC data. Current Interpretive Data was last revised on 2017. Imm gran pct 4.2 % [facility] Comment: Interpretive Data Percent cell count reference ranges are not reported, since discordance with absolute values may lead to misinterpretation of CBC data. Current Interpretive Data was last revised on 2017. Lymphocyte pct 1.7 % [facility] Comment: Interpretive Data Percent cell count reference ranges are not reported, since discordance with absolute values may lead to misinterpretation of CBC data. Current Interpretive Data was last revised on 2017. Monocyte pct 5.0 % [facility] Comment: Interpretive Data Percent cell count reference ranges are not reported, since discordance with absolute values may lead to misinterpretation of CBC data. Current Interpretive Data was last revised on 2017. Eosinophil pct 0.5 % [facility] Comment: Interpretive Data Percent cell count reference ranges are not reported, since discordance with absolute values may lead to misinterpretation of CBC data. Current Interpretive Data was last revised on 2017. Basophil pct 0.2 % [facility] Comment: Interpretive Data Percent cell count reference ranges are not reported, since discordance with absolute values may lead to misinterpretation of CBC data. Current Interpretive Data was last revised on 2017. Blood 01/27/2024 4:17 AM SALES ORDER CLERK 01/27/2024 5:22 AM SALES ORDER CLERK us Ayush Galvez MD LAB BLOOD ORDERABLES Final Result [facility] Department [place] [address] * Tacrolimus level trough (01/27/2024 4:17 AM SALES ORDER CLERK) Tacrolimus trough 12.2 ng/mL Comment: Interpretive Data Testing performed by liquid chromatography-tandem mass spectrometry. Therapeutic concentrations vary depending on type of transplanted organ and time elapsed since transplant. Typical trough concentrations range from 5-15 ng/mL. This test was developed and its performance characteristics determined by the [facility] consistent with CLIA requirements. This test has not been cleared or approved by the [place] Food and Drug administration. Current interpretive data last reviewed 2019. Blood 01/27/2024 4:17 AM SALES ORDER CLERK 01/27/2024 5:22 AM SALES ORDER CLERK us Ayush Galvez MD LAB BLOOD ORDERABLES Final Result [facility] [place] [address] * (ABNORMAL) CBC with auto differential (01/27/2024 4:17 AM SALES ORDER CLERK) Pathologist [facility] [place] WBC 6.5 3.8 - 9.9 K/cumm Hgb 9.1(L) 13.0 - 17.5 g/dL [facility] Hct 26.8(L) 38.9 - 50.3 % [facility] Plt 144(L) 150 - 400 K/cumm [facility] MPV 11.8 9.1 - 12.3 fL [facility] RBC 2.85(L) 4.30 - 5.80 M/cumm [facility] MCV 94.0 81.3 - 96.4 fL [facility] MCH 31.9 27.1 - 33.3 pg [facility] MCHC 34.0 32.3 - 35.7 g/dL [facility] RDW CV 16.9(H) 11.1 - 14.9 % [facility] RDW SD 55.8(H) 35.7 - 48.1 fL [facility] NRBC abs 0.03(H) 0.00 - 0.01 K/cumm [facility] Blood 01/27/2024 4:17 AM SALES ORDER CLERK 01/27/2024 5:22 AM SALES ORDER CLERK Ayush Galvez MD LAB BLOOD ORDERABLES Final Result Performing Organization Address City/[facility]/ZIP Co de Phone Number [facility] One [facility] [place] [address] * Magnesium (01/27/2024 4:17 AM SALES ORDER CLERK) [facility] Magnesium 2.4 1.4 - 2.5 mg/dL Blood 01/27/2024 4:17 AM SALES ORDER CLERK 01/27/2024 5:22 AM SALES ORDER CLERK Ayush Galvez MD LAB BLOOD ORDERABLES Final Result Performing Organization Address [facility] de Phone Number [facility] [place] [address] * (ABNORMAL) Renal function panel (01/27/2024 4:17 AM SALES ORDER CLERK) [facility] Sodium 136 135 - 145 mmol/L Potassium, pl 3.9 3.3 - 4.9 mmol/L [facility] Comment:Hemolyzed; Potassium value may be falsely elevated by as much as 0.6-1.0 mmol/L. Suggest redraw and reanalysis. Chloride 93(L) 97 - 110 mmol/L [facility] CO2 29 22 - 32 mmol/L [facility] Anion gap 14 2 - 15 mmol/L [facility] BUN 47(H) 6 - 25 mg/dL [facility] Creatinine 5.15(H) 0.80 - 1.30 mg/dL [facility] Glucose 136 70 - 199 mg/dL [facility] Comment: Interpretive Data Fasting glucose >/= 126 [...] 2022. Calcium 9.8 8.5 - 10.3 mg/dL [facility] Phosphorus, pl 5.8(H) 2.3 - 4.5 mg/dL [facility] Comment:Reviewed Albumin 3.2(L) 3.5 - 5.0 g/dL [facility] Blood 01/27/2024 4:17 AM SALES ORDER CLERK 01/27/2024 5:22 AM SALES ORDER CLERK Ayush Galvez MD LAB BLOOD ORDERABLES Final Result Performing Organization Address City/[facility] Co de Phone Number [facility] [place] [address] * POCT glucose (01/26/2024 7:59 PM SALES ORDER CLERK) Glucose, POC 152 70 - 199 mg/dL Blood 01/26/2024 7:59 PM SALES ORDER CLERK 01/26/2024 7:59 PM SALES ORDER CLERK Result [facility] Ayush Galvez MD LAB POCT ORDERABLES - DEVIC E Final Result Performing Organization Address City/[facility] Co de Phone Number [facility] [place] [employer] [place] [address] * POCT glucose (01/26/2024 5:15 PM SALES ORDER CLERK) Glucose, POC 189 70 - 199 mg/dL Blood 01/26/2024 5:15 PM SALES ORDER CLERK 01/26/2024 5:15 PM SALES ORDER CLERK Ayush Galvez MD LAB POCT ORDERABLES - DEVIC E Final Result Performing Organization Address [facility] Co de Phone Number [facility] [place] [address] * POCT glucose (01/26/2024 1:48 PM SALES ORDER CLERK) Glucose, POC 149 70 - 199 mg/dL Blood 01/26/2024 1:48 PM SALES ORDER CLERK 01/26/2024 1:48 PM SALES ORDER CLERK us Ayush Galvez MD LAB POCT ORDERABLES - DEVIC E Final Result Performing Organization Address [facility] Co de Phone Number [facility] [place] [address] * POCT glucose (01/26/2024 12:06 PM SALES ORDER CLERK) Glucose, POC 180 70 - 199 mg/dL Blood 01/26/2024 12:0 6 PM SALES ORDER CLERK 01/26/2024 12:06 PM SALES ORDER CLERK us Ayush Galvez MD LAB POCT ORDERABLES - DEVIC E Final Result Performing Organization Address [facility] [place] [address] * Transfuse RBC (01/26/2024 9:55 AM SALES ORDER CLERK) Blood Result [facility] us Ayush Galvez MD BLOOD TRANSFUSION ORDERABLE S Edited Result - Final Performing Organization Address [facility] de Phone Number [facility] [place] [address] * POCT glucose (01/26/2024 8:25 AM SALES ORDER CLERK) Glucose, POC 175 70 - 199 mg/dL Blood 01/26/2024 8:25 AM SALES ORDER CLERK 01/26/2024 8:25 AM SALES ORDER CLERK us Ayush Galvez MD LAB POCT ORDERABLES - DEVIC E Final Result Performing Organization Address [facility] Co de Phone Number [facility] [place] [address] * Type and screen (01/26/2024 6:19 AM SALES ORDER CLERK) Pathologist [facility] [place], indirect Negative ABO Rh O Negative [facility] Blood 01/26/2024 6:19 AM SALES ORDER CLERK 01/26/2024 6:30 AM SALES ORDER CLERK Narrative [facility] - 01/26/2024 7:36 AM SALES ORDER CLERK Has the patient had Daratumumab or Isatuximab in the past 6 months?->Unknown Ayush Galvez MD LAB BLOOD BANK TEST ORDERAB LES Final Result Performing Organization Address [facility]/[place] [address] * Prepare RBC: 1 Units (01/26/2024 5:41 AM SALES ORDER CLERK) [facility] Product code [id number] Unit Number [id number] * [facility] Product Blood Type ONEG [facility] Dispense Status PRESUMED TRANSFUSED [facility] Blood 01/26/2024 5:41 AM SALES ORDER CLERK 01/26/2024 5:41 AM SALES ORDER CLERK Narrative [facility] - 01/26/2024 4:02 PM SALES ORDER CLERK Are special requirements needed? (All products are leukoreduced and CMV- safe)- >No Date required:-[id number] LRRBC # of [id number] Reasons:-Cardiovascular disease, Hgb <8 g/dL} us Ayush Galvez MD BLOOD BANK PRODUCT ORDERABL ES Final Result Performing Organization Address City/[facility]/[place] [address] * (ABNORMAL) eGFR (01/26/2024 4:39 AM SALES ORDER CLERK) [facility] eGFR 9(L) >=60 mL/min/1. 73 m2 Comment: [...] last reviewed 2020. Blood 01/26/2024 4:39 AM SALES ORDER CLERK 01/26/2024 5:17 AM SALES ORDER CLERK Ayush Galvez MD LAB BLOOD ORDERABLES Final Result [facility] [place] [address] * (ABNORMAL) Differential, auto (01/26/2024 4:39 AM SALES ORDER CLERK) Neutrophil abs 4.2 1.5 - 6.5 K/cumm Imm gran abs 0.1 0.0 - 0.1 K/cumm [facility] Lymphocyte abs 0.1(L) 0.8 - 3.3 K/cumm [facility] Monocyte abs 0.2 0.2 - 0.8 K/cumm [facility] Eosinophil abs 0.0 0.0 - 0.5 K/cumm [facility] Basophil abs 0.0 0.0 - 0.1 K/cumm [facility] Neutrophil pct 91.1 % [facility] Comment: Interpretive Data Percent cell count reference ranges are not reported, since discordance with absolute values may lead to misinterpretation of CBC data. Current Interpretive Data was last revised on 2017. Imm gran pct 2.0 % [facility] Comment: Interpretive Data Percent cell count reference ranges are not reported, since discordance with absolute values may lead to misinterpretation of CBC data. Current Interpretive Data was last revised on 2017. Lymphocyte pct 1.7 % [facility] Comment: Interpretive Data Percent cell count reference ranges are not reported, since discordance with absolute values may lead to misinterpretation of CBC data. Current Interpretive Data was last revised on 2017. Monocyte pct 5.2 % [facility] Comment: Interpretive Data Percent cell count reference ranges are not reported, since discordance with absolute values may lead to misinterpretation of CBC data. Current Interpretive Data was last revised on 2017. Eosinophil pct 0.0 % [facility] Comment: Interpretive Data Percent cell count reference ranges are not reported, since discordance with absolute values may lead to misinterpretation of CBC data. Current Interpretive Data was last revised on 2017. Basophil pct 0.0 % [facility] Comment: Interpretive Data Percent cell count reference ranges are not reported, since discordance with absolute values may lead to misinterpretation of CBC data. Current Interpretive Data was last revised on 2017. Blood 01/26/2024 4:39 AM SALES ORDER CLERK 01/26/2024 5:17 AM SALES ORDER CLERK Ayush Galvez MD LAB BLOOD ORDERABLES Final Result [facility] [place] [address] * Tacrolimus level trough (01/26/2024 4:39 AM SALES ORDER CLERK) Tacrolimus trough 8.9 ng/mL Comment: Interpretive Data Testing performed by liquid chromatography-tandem mass spectrometry. Therapeutic concentrations vary depending on type of transplanted organ and time elapsed since transplant. Typical trough concentrations range from 5-15 ng/mL. This test was developed and its performance characteristics determined by the [facility] consistent with CLIA requirements. This test has not been cleared or approved by the [place] Food and Drug administration. Current interpretive data last reviewed 2019. Blood 01/26/2024 4:39 AM SALES ORDER CLERK 01/26/2024 5:17 AM SALES ORDER CLERK Ayush Galvez MD LAB BLOOD ORDERABLES Final Result Performing Organization Address [facility] Co de Phone Number [facility] [place] [address] * (ABNORMAL) CBC with auto differential (01/26/2024 4:39 AM SALES ORDER CLERK) WBC 4.6 3.8 - 9.9 K/cumm Hgb 7.9(L) 13.0 - 17.5 g/dL [facility] Hct 23.5(L) 38.9 - 50.3 % [facility] Plt 111(L) 150 - 400 K/cumm [facility] MPV 11.9 9.1 - 12.3 fL [facility] RBC 2.49(L) 4.30 - 5.80 M/cumm [facility] MCV 94.4 81.3 - 96.4 fL [facility] MCH 31.7 27.1 - 33.3 pg [facility] MCHC 33.6 32.3 - 35.7 g/dL [facility] RDW CV 17.2(H) 11.1 - 14.9 % [facility] RDW SD 58.9(H) 35.7 - 48.1 fL [facility] NRBC abs 0.00 0.00 - 0.01 K/cumm [facility] Blood 01/26/2024 4:39 AM SALES ORDER CLERK 01/26/2024 5:17 AM SALES ORDER CLERK Ayush Galvez MD LAB BLOOD ORDERABLES Final Result [facility] [place] [address] * Magnesium (01/26/2024 4:39 AM SALES ORDER CLERK) Magnesium 2.5 1.4 - 2.5 mg/dL Blood 01/26/2024 4:39 AM SALES ORDER CLERK 01/26/2024 5:17 AM SALES ORDER CLERK us Ayush Galvez MD LAB BLOOD ORDERABLES Final Result [facility] [place] [address] * (ABNORMAL) Renal function panel (01/26/2024 4:39 AM SALES ORDER CLERK) Sodium 132(L) 135 - 145 mmol/L Potassium, pl 4.5 3.3 - 4.9 mmol/L [facility] Comment:Hemolyzed; Potassium value may be falsely elevated by as much as 0.3-0.5 mmol/L. Suggest redraw and reanalysis. Chloride 90(L) 97 - 110 mmol/L [facility] CO2 28 22 - 32 mmol/L [facility] Anion gap 14 2 - 15 mmol/L [facility] BUN 69(H) 6 - 25 mg/dL [facility] Creatinine 6.70(H) 0.80 - 1.30 mg/dL [facility] Glucose 172 70 - 199 mg/dL [facility] Comment: Interpretive Data Fasting glucose >/= 126 [...] 2022. Calcium 9.6 8.5 - 10.3 mg/dL [facility] Phosphorus, pl 8.0(H) 2.3 - 4.5 mg/dL [facility] Albumin 3.0(L) 3.5 - 5.0 g/dL [facility] Blood 01/26/2024 4:39 AM SALES ORDER CLERK 01/26/2024 5:17 AM SALES ORDER CLERK Ayush Galvez MD LAB BLOOD ORDERABLES Final Result Performing Organization Address City/[facility]/ZIP Co de Phone Number [facility] [place] [address] * POCT glucose (01/25/2024 9:33 PM SALES ORDER CLERK) Glucose, POC 195 70 - 199 mg/dL Blood 01/25/2024 9:33 PM SALES ORDER CLERK 01/25/2024 9:33 PM SALES ORDER CLERK Ayush Galvez MD LAB POCT ORDERABLES - DEVIC E Final Result Performing Organization Address [facility] [place] [address] * (ABNORMAL) Troponin I high-sensitivity 6-hour (01/25/2024 7:51 PM SALES ORDER CLERK) Pathologist [facility] [place] Trop I hs 347(C) <=35 ng/L Comment: Previous critical value noted within 48 hours ago. Interpretive Data For further hscTnI resources including the diagnostic algorithm and an aid in interpretation, copy and paste this link: [email or web address]/[email or web address] Current Interpretive Data last revised 2019. Trop I hs pct delta -11 % [facility] Comment:Previous critical va lue noted within 48 hours ago. Trop I hs interp Equivocal [facility] Comment:Previous critical va lue noted within 48 hours ago. Blood 01/25/2024 7:51 PM SALES ORDER CLERK 01/25/2024 8:11 PM SALES ORDER CLERK Vannessa Hein NP LAB BLOOD ORDERABLES Fin al Result Performing Organization Address [facility] Co de Phone Number [facility] [place] [address] * (ABNORMAL) Troponin I high-sensitivity 4-hour (01/25/2024 6:00 PM SALES ORDER CLERK) Trop I hs 388(C) <=35 ng/L Comment: Previous critical value noted within 48 hours ago. Interpretive Data For further hscTnI resources including the diagnostic algorithm and an aid in interpretation, copy and paste this link: [email or web address] Current Interpretive Data last revised 2019. Trop I hs pct delta -1 % [facility] Trop I hs interp Insignificant [facility] Blood 01/25/2024 6:00 PM SALES ORDER CLERK 01/25/2024 6:21 PM SALES ORDER CLERK Vannessa Hein NP LAB BLOOD ORDERABLES Fin al Result [facility] [place] [address] * (ABNORMAL) POCT glucose (01/25/2024 5:49 PM SALES ORDER CLERK) [facility] Glucose, POC 212(H) 70 - 199 mg/dL Blood 01/25/2024 5:49 PM SALES ORDER CLERK 01/25/2024 5:49 PM SALES ORDER CLERK Ayush Galvez MD LAB POCT ORDERABLES - DEVIC E Final Result Performing Organization Address City/[facility]/ZIP Co de Phone Number [facility] [place] [address] * (ABNORMAL) Troponin I high-sensitivity 2-hour (01/25/2024 3:44 PM SALES ORDER CLERK) Pathologist [facility] [place] Trop I hs 384(C) <=35 ng/L Comment: Previous critical value noted within 48 hours ago. Interpretive Data For further hscTnI resources including the diagnostic algorithm and an aid in interpretation, copy and paste this link: [email or web address] Current Interpretive Data last revised 2019. Trop I hs pct delta -2 % [facility] Trop I hs interp Insignificant [facility] Blood 01/25/2024 3:44 PM SALES ORDER CLERK 01/25/2024 4:16 PM SALES ORDER CLERK Vannessa Hein NP LAB BLOOD ORDERABLES Fin al Result [facility] [place] [address] * XR Chest 1 View (01/25/2024 2:52 PM SALES ORDER CLERK) Anatomical Region Laterality Modality Body, Chest N/A Computed Radiogr aphy 01/25/2024 3:56 PM SALES ORDER CLERK Impressions 01/25/2024 4:00 PM SALES ORDER CLERK The current study is compared with the [...] Erinn Morataya M.D. Narrative 01/25/2024 4:00 PM SALES ORDER CLERK EXAMINATION: 1 view chest radiograph Procedure Note [...] signed by: Erinn Morataya M.D. Vannessa Hein WOOD FENCE ERECTOR IMG XR PROCEDURES Final Result * (ABNORMAL) CBC without differential (01/25/2024 2:42 PM SALES ORDER CLERK) [facility] WBC 6.9 3.8 - 9.9 K/cumm Hgb 8.1(L) 13.0 - 17.5 g/dL [facility] Hct 24.5(L) 38.9 - 50.3 % [facility] Plt 94(L) 150 - 400 K/cumm [facility] MPV 11.4 9.1 - 12.3 fL [facility] RBC 2.56(L) 4.30 - 5.80 M/cumm [facility] MCV 95.7 81.3 - 96.4 fL [facility] MCH 31.6 27.1 - 33.3 pg [facility] MCHC 33.1 32.3 - 35.7 g/dL [facility] RDW CV 17.2(H) 11.1 - 14.9 % [facility] RDW SD 59.7(H) 35.7 - 48.1 fL [facility] NRBC abs 0.03(H) 0.00 - 0.01 K/cumm [facility] Blood 01/25/2024 2:42 PM SALES ORDER CLERK 01/25/2024 2:56 PM SALES ORDER CLERK Susi LEE LAB BLOOD ORDERABLES Final Result [facility] Department of Laboratories [place], [place] [id number] * (ABNORMAL) Troponin I high-sensitivity (01/25/2024 2:05 PM SALES ORDER CLERK) [facility] Trop I hs 383(C) <=35 ng/L Comment: Previous critical value noted within 48 hours ago. Interpretive Data For further [facility] resources including the diagnostic algorithm and an aid in interpretation, copy and paste this link: [email or web address]/[email or web address] Current Interpretive Data last revised 2019. Blood 01/25/2024 2:05 PM SALES ORDER CLERK 01/25/2024 2:23 PM SALES ORDER CLERK Susi Nuñez PA LAB BLOOD ORDERABLES Final Result Performing Organization Address [facility]/ZIP Co de Phone Number [facility] [place] [address] * (ABNORMAL) Troponin I high-sensitivity series (baseline, 2hr, 4hr, 6hr) (01/25/2024 1:46 PM SALES ORDER CLERK) Trop I hs 391(C) <=35 ng/L Comment: Interpretive Data For further [facility]sc[facility] resources including the diagnostic algorithm and an aid in interpretation, copy and paste this link: [email or web address]/show/[email or web address] Current Interpretive Data last revised 2019. Blood 01/25/2024 1:46 PM SALES ORDER CLERK 01/25/2024 1:59 PM SALES ORDER CLERK Vannessa Hein NP LAB BLOOD ORDERABLES Fin al Result Performing Organization Address [facility] Co de Phone Number [facility] [place] [address] * Critical result callback Cardio chemistry (01/25/2024 1:46 PM SALES ORDER CLERK) Date Notified [id number] Time Notified 1449 [facility] Test name Trop I hs base LINDA BALLARD Called/Read Back Nadiay MCKEON [facility] Credentials RN LINDA [facility] Called By afshin BALLARD Blood 01/25/2024 1:46 PM SALES ORDER CLERK 01/25/2024 2:11 PM SALES ORDER CLERK Vannessa Hein NP LAB BLOOD ORDERABLES Fin al Result Performing Organization Address [facility] Co de Phone Number [facility] [place] [address] * ECG 12 lead (01/25/2024 1:31 PM SALES ORDER CLERK) Pathologist [facility] [place] Ventricular Rate EKG/Min 82 BPM [facility] Atrial Rate 83 BPM [facility] QRS-Interval (MSEC) 144 ms [facility] QT-Interval (MSEC) 462 ms [facility] QTc 539 ms [facility] R [place] 7 degrees [facility] T [place] 3 degrees [facility] Diagnosis Atrial fibrillation/fl utter with variable A-V block Non-specific intra-ventricul ar conduction block Cannot rule out Inferior infarct , age undetermined Abnormal ECG When compared with ECG of 23-JAN-2024 01:02, (unconfirmed) T wave inversion no longer evident in Lateral leads QT has lengthened Confirmed by JENNIFER BYRD M.D ([id number]) on 01/26/2024 12:43:53 PM [facility] 01/25/2024 1:31 PM SALES ORDER CLERK 01/26/2024 12:43 PM SALES ORDER CLERK us Vannessa Hein NP ECG ORDERABLES Final Re sult Performing Organization Address [facility] de Phone Number [facility] * Creatinine, body fluid (01/25/2024 1:15 PM SALES ORDER CLERK) [facility] Specimen type, fld Peritoneal Creatinine, fld 5.90 mg/dL [facility] Comment: The above specimen type is not [...] 2018. Chapter 43, Body Fluids, p. 925 [employer] Test directory, Body Fluid Reference Intervals and/or Interpretative Information. [email or web address] Current Interpretive Data was last revised 2018. Fluid 01/25/2024 1:15 PM SALES ORDER CLERK 01/25/2024 2:12 PM SALES ORDER CLERK Narrative [facility] - 01/25/2024 2:45 PM SALES ORDER CLERK CONSTANZA drain Rosalie Velásquez WOOD FENCE ERECTOR LAB BODY FLUIDS AND STOOLS ORDERABLES Final Result Performing Organization Address [facility] Co de Phone Number [facility] [place] [address] * POCT glucose (01/25/2024 12:46 PM SALES ORDER CLERK) Glucose, POC 169 70 - 199 mg/dL Blood 01/25/2024 12:4 6 PM SALES ORDER CLERK 01/25/2024 12:46 PM SALES ORDER CLERK Ayush Galvez MD LAB POCT ORDERABLES - DEVIC E Final Result Performing Organization Address [facility] Co de Phone Number [facility] [place] [address] * POCT glucose (01/25/2024 11:13 AM SALES ORDER CLERK) Glucose, POC 143 70 - 199 mg/dL Blood 01/25/2024 11:1 3 AM SALES ORDER CLERK 01/25/2024 11:13 AM SALES ORDER CLERK Ayush Galvez MD LAB POCT ORDERABLES - DEVIC E Final Result Performing Organization Address [facility] [place] [address] * IR Central Line Placement > 5 Years (01/25/2024 10:26 AM SALES ORDER CLERK) Anatomical Region Laterality Modality Body N/A X-Ray Angiograph y 01/25/2024 11:2 6 AM SALES ORDER CLERK Impressions 01/25/2024 2:04 PM SALES ORDER CLERK Successful nontunneled catheter placement. PLAN: The catheter [...] Miguel Swan M.D. Narrative 01/25/2024 2:04 PM SALES ORDER CLERK EXAMINATION: NONTUNNELED CENTRAL VENOUS CATHETER PLACEMENT (STD) [...] was obtained. Prior to beginning the procedure, [place] Protocol was used to confirm the patient's [...] was obtained. Prior to beginning the procedure, [place] Protocol was used to confirm the patient's [...] by: Juan Miguel Swan M.D. Vannessa Hein NP IMG IR PROCEDURES Final Result * POCT glucose (01/25/2024 7:40 AM SALES ORDER CLERK) Glucose, POC 147 70 - 199 mg/dL Blood 01/25/2024 7:40 AM SALES ORDER CLERK 01/25/2024 7:40 AM SALES ORDER CLERK Ayush Galvez MD LAB POCT ORDERABLES - DEVIC E Final Result Performing Organization Address [facility] Co de Phone Number [facility] [place] [address] * (ABNORMAL) eGFR (01/25/2024 5:07 AM SALES ORDER CLERK) eGFR 10(L) >=60 mL/min/1. 73 m2 Comment: [...] last reviewed 2020. Blood 01/25/2024 5:07 AM SALES ORDER CLERK 01/25/2024 5:25 AM SALES ORDER CLERK us Ayush Galvez MD LAB BLOOD ORDERABLES Final Result Performing Organization Address City/[facility]/ZIP Co de Phone Number [facility] [place] [address] * (ABNORMAL) Differential, auto (01/25/2024 5:07 AM SALES ORDER CLERK) Neutrophil abs 3.3 1.5 - 6.5 K/cumm Imm gran abs 0.1 0.0 - 0.1 K/cumm [facility] Lymphocyte abs 0.1(L) 0.8 - 3.3 K/cumm [facility] Monocyte abs 0.2 0.2 - 0.8 K/cumm [facility] Eosinophil abs 0.0 0.0 - 0.5 K/cumm [facility] Basophil abs 0.0 0.0 - 0.1 K/cumm [facility] Neutrophil pct 90.8 % [facility] Comment: Interpretive Data Percent cell count reference ranges are not reported, since discordance with absolute values may lead to misinterpretation of CBC data. Current Interpretive Data was last revised on 2017. Imm gran pct 2.5 % [facility] Comment: Interpretive Data Percent cell count reference ranges are not reported, since discordance with absolute values may lead to misinterpretation of CBC data. Current Interpretive Data was last revised on 2017. Lymphocyte pct 1.7 % [facility] Comment: Interpretive Data Percent cell count reference ranges are not reported, since discordance with absolute values may lead to misinterpretation of CBC data. Current Interpretive Data was last revised on 2017. Monocyte pct 4.7 % [facility] Comment: Interpretive Data Percent cell count reference ranges are not reported, since discordance with absolute values may lead to misinterpretation of CBC data. Current Interpretive Data was last revised on 2017. Eosinophil pct 0.3 % [facility] Comment: Interpretive Data Percent cell count reference ranges are not reported, since discordance with absolute values may lead to misinterpretation of CBC data. Current Interpretive Data was last revised on 2017. Basophil pct 0.0 % [facility] Comment: Interpretive Data Percent cell count reference ranges are not reported, since discordance with absolute values may lead to misinterpretation of CBC data. Current Interpretive Data was last revised on 2017. Blood 01/25/2024 5:07 AM SALES ORDER CLERK 01/25/2024 5:58 AM SALES ORDER CLERK us Ayush Galvez MD LAB BLOOD ORDERABLES Final Result [facility] [place] [address] * Tacrolimus level trough (01/25/2024 5:07 AM SALES ORDER CLERK) [facility] Tacrolimus trough 7.3 ng/mL Comment: Interpretive Data Testing performed by liquid chromatography-tandem mass spectrometry. Therapeutic concentrations vary depending on type of transplanted organ and time elapsed since transplant. Typical trough concentrations range from 5-15 ng/mL. This test was developed and its performance characteristics determined by the [facility] consistent with CLIA requirements. This test has not been cleared or approved by the [place] Food and Drug administration. Current interpretive data last reviewed 2019. Blood 01/25/2024 5:07 AM SALES ORDER CLERK 01/25/2024 5:58 AM SALES ORDER CLERK Ayush Galvez MD LAB BLOOD ORDERABLES Final Result [facility] [place] [address] * (ABNORMAL) CBC with auto differential (01/25/2024 5:07 AM SALES ORDER CLERK) [facility] WBC 3.6(L) 3.8 - 9.9 K/cumm Hgb 8.1(L) 13.0 - 17.5 g/dL [facility] Hct 24.1(L) 38.9 - 50.3 % [facility] Plt 92(L) 150 - 400 K/cumm [facility] MPV 11.0 9.1 - 12.3 fL [facility] RBC 2.55(L) 4.30 - 5.80 M/cumm [facility] MCV 94.5 81.3 - 96.4 fL [facility] MCH 31.8 27.1 - 33.3 pg [facility] MCHC 33.6 32.3 - 35.7 g/dL [facility] RDW CV 17.2(H) 11.1 - 14.9 % [facility] RDW SD 59.2(H) 35.7 - 48.1 fL [facility] NRBC abs 0.03(H) 0.00 - 0.01 K/cumm [facility] Blood 01/25/2024 5:07 AM SALES ORDER CLERK 01/25/2024 5:58 AM SALES ORDER CLERK Ayush Galvez MD LAB BLOOD ORDERABLES Final Result Performing Organization Address [facility] de Phone Number [facility] [place] [address] * Magnesium (01/25/2024 5:07 AM SALES ORDER CLERK) [facility] Magnesium 2.3 1.4 - 2.5 mg/dL Blood 01/25/2024 5:07 AM SALES ORDER CLERK 01/25/2024 5:25 AM SALES ORDER CLERK Ayush Galvez MD LAB BLOOD ORDERABLES Final Result Performing Organization Address [facility] de Phone Number [facility] [place] [address] * (ABNORMAL) Renal function panel (01/25/2024 5:07 AM SALES ORDER CLERK) Pathologist [facility] [place] Sodium 134(L) 135 - 145 mmol/L Potassium, pl 4.0 3.3 - 4.9 mmol/L [facility] Chloride 91(L) 97 - 110 mmol/L [facility] CO2 30 22 - 32 mmol/L [facility] Anion gap 13 2 - 15 mmol/L [facility] BUN 51(H) 6 - 25 mg/dL [facility] Creatinine 5.63(H) 0.80 - 1.30 mg/dL [facility] Glucose 152 70 - 199 mg/dL [facility] Comment: Interpretive Data Fasting glucose >/= 126 [...] 2022. Calcium 9.4 8.5 - 10.3 mg/dL [facility] Phosphorus, pl 7.5(H) 2.3 - 4.5 mg/dL [facility] Albumin 3.2(L) 3.5 - 5.0 g/dL [facility] Blood 01/25/2024 5:07 AM SALES ORDER CLERK 01/25/2024 5:25 AM SALES ORDER CLERK Ayush Galvez MD LAB BLOOD ORDERABLES Final Result Performing Organization Address [facility] Co de Phone Number [facility] [place] [address] * POCT glucose (01/24/2024 8:58 PM SALES ORDER CLERK) Glucose, POC 195 70 - 199 mg/dL Blood 01/24/2024 8:58 PM SALES ORDER CLERK 01/24/2024 8:58 PM SALES ORDER CLERK Ayush Galvez MD LAB POCT ORDERABLES - DEVIC E Final Result Performing Organization Address [facility] de Phone Number [facility] [place] [address] * POCT glucose (01/24/2024 4:57 PM SALES ORDER CLERK) Glucose, POC 189 70 - 199 mg/dL Blood 01/24/2024 4:57 PM SALES ORDER CLERK 01/24/2024 4:57 PM SALES ORDER CLERK Ayush Galvez MD LAB POCT ORDERABLES - DEVIC E Final Result Performing Organization Address [facility] Co de Phone Number [facility] [place] [address] * (ABNORMAL) POCT glucose (01/24/2024 11:41 AM SALES ORDER CLERK) Glucose, POC 219(H) 70 - 199 mg/dL Blood 01/24/2024 11:4 1 AM SALES ORDER CLERK 01/24/2024 11:41 AM SALES ORDER CLERK Ayush Galvez MD LAB POCT ORDERABLES - DEVIC E Final Result Performing Organization Address [facility] de Phone Number [facility] [place] [address] * POCT glucose (01/24/2024 7:32 AM SALES ORDER CLERK) Glucose, POC 187 70 - 199 mg/dL Blood 01/24/2024 7:32 AM SALES ORDER CLERK 01/24/2024 7:32 AM SALES ORDER CLERK Ayush Galvez MD LAB POCT ORDERABLES - DEVIC E Final Result Performing Organization Address [facility] de Phone Number [facility] [place] [address] * (ABNORMAL) eGFR (01/24/2024 5:06 AM SALES ORDER CLERK) eGFR 15(L) >=60 mL/min/1. 73 m2 Comment: [...] last reviewed 2020. Blood 01/24/2024 5:06 AM SALES ORDER CLERK 01/24/2024 5:24 AM SALES ORDER CLERK Ayush Galvez MD LAB BLOOD ORDERABLES Final Result [facility] [place] [address] * (ABNORMAL) Differential, auto (01/24/2024 5:06 AM SALES ORDER CLERK) Neutrophil abs 5.8 1.5 - 6.5 K/cumm Imm gran abs 0.0 0.0 - 0.1 K/cumm [facility] Lymphocyte abs 0.1(L) 0.8 - 3.3 K/cumm [facility] Monocyte abs 0.3 0.2 - 0.8 K/cumm [facility] Eosinophil abs 0.0 0.0 - 0.5 K/cumm [facility] Basophil abs 0.0 0.0 - 0.1 K/cumm [facility] Neutrophil pct 93.5 % [facility] Comment: Interpretive Data Percent cell count reference ranges are not reported, since discordance with absolute values may lead to misinterpretation of CBC data. Current Interpretive Data was last revised on 2017. Imm gran pct 0.6 % [facility] Comment: Interpretive Data Percent cell count reference ranges are not reported, since discordance with absolute values may lead to misinterpretation of CBC data. Current Interpretive Data was last revised on 2017. Lymphocyte pct 1.0 % [facility] Comment: Interpretive Data Percent cell count reference ranges are not reported, since discordance with absolute values may lead to misinterpretation of CBC data. Current Interpretive Data was last revised on 2017. Monocyte pct 4.7 % [facility] Comment: Interpretive Data Percent cell count reference ranges are not reported, since discordance with absolute values may lead to misinterpretation of CBC data. Current Interpretive Data was last revised on 2017. Eosinophil pct 0.2 % [facility] Comment: Interpretive Data Percent cell count reference ranges are not reported, since discordance with absolute values may lead to misinterpretation of CBC data. Current Interpretive Data was last revised on 2017. Basophil pct 0.0 % [facility] Comment: Interpretive Data Percent cell count reference ranges are not reported, since discordance with absolute values may lead to misinterpretation of CBC data. Current Interpretive Data was last revised on 2017. Blood 01/24/2024 5:06 AM SALES ORDER CLERK 01/24/2024 6:39 AM SALES ORDER CLERK Ayush Galvez MD LAB BLOOD ORDERABLES Final Result Performing Organization Address [facility] de Phone Number [facility] [place] [address] * Tacrolimus level trough (01/24/2024 5:06 AM SALES ORDER CLERK) Pathologist [facility] [place] Tacrolimus trough 9.4 ng/mL Comment: Interpretive Data Testing performed by liquid chromatography-tandem mass spectrometry. Therapeutic concentrations vary depending on type of transplanted organ and time elapsed since transplant. Typical trough concentrations range from 5-15 ng/mL. This test was developed and its performance characteristics determined by the [facility] consistent with CLIA requirements. This test has not been cleared or approved by the [place] Food and Drug administration. Current interpretive data last reviewed 2019. Blood 01/24/2024 5:06 AM SALES ORDER CLERK 01/24/2024 6:39 AM SALES ORDER CLERK Ayush Galvez MD LAB BLOOD ORDERABLES Final Result Performing Organization Address [facility] Co de Phone Number [facility] [place] [address] * (ABNORMAL) CBC with auto differential (01/24/2024 5:06 AM SALES ORDER CLERK) Pathologist [facility] [place] WBC 6.2 3.8 - 9.9 K/cumm Hgb 8.2(L) 13.0 - 17.5 g/dL [facility] Hct 24.4(L) 38.9 - 50.3 % [facility] Plt 103(L) 150 - 400 K/cumm [facility] MPV 11.4 9.1 - 12.3 fL [facility] RBC 2.57(L) 4.30 - 5.80 M/cumm [facility] MCV 94.9 81.3 - 96.4 fL [facility] MCH 31.9 27.1 - 33.3 pg [facility] MCHC 33.6 32.3 - 35.7 g/dL [facility] RDW CV 17.7(H) 11.1 - 14.9 % [facility] RDW SD 62.0(H) 35.7 - 48.1 fL [facility] NRBC abs 0.02(H) 0.00 - 0.01 K/cumm [facility] Blood 01/24/2024 5:06 AM SALES ORDER CLERK 01/24/2024 6:39 AM SALES ORDER CLERK Ayush Galvez MD LAB BLOOD ORDERABLES Final Result Performing Organization Address City/[facility]/ZIP Co de Phone Number [facility] [place] [address] * Magnesium (01/24/2024 5:06 AM SALES ORDER CLERK) Pathologist [facility] [place] Magnesium 2.2 1.4 - 2.5 mg/dL Blood 01/24/2024 5:06 AM SALES ORDER CLERK 01/24/2024 5:24 AM SALES ORDER CLERK Ayush Galvez MD LAB BLOOD ORDERABLES Final Result [facility] [place] [address] * (ABNORMAL) Renal function panel (01/24/2024 5:06 AM SALES ORDER CLERK) Sodium 137 135 - 145 mmol/L Potassium, pl 3.9 3.3 - 4.9 mmol/L [facility] Chloride 92(L) 97 - 110 mmol/L [facility] CO2 28 22 - 32 mmol/L [facility] Anion gap 17(H) 2 - 15 mmol/L [facility] BUN 36(H) 6 - 25 mg/dL [facility] Creatinine 4.25(H) 0.80 - 1.30 mg/dL [facility] Glucose 206(H) 70 - 199 mg/dL [facility] Comment: Interpretive Data Fasting glucose >/= 126 [...] 2022. Calcium 9.1 8.5 - 10.3 mg/dL [facility] Phosphorus, pl 5.6(H) 2.3 - 4.5 mg/dL [facility] Comment:Repeated on Dilution Albumin 3.2(L) 3.5 - 5.0 g/dL [facility] Blood 01/24/2024 5:06 AM SALES ORDER CLERK 01/24/2024 5:24 AM SALES ORDER CLERK Ayush Galvez MD LAB BLOOD ORDERABLES Final Result [facility] Department [place] [address] * (ABNORMAL) POCT glucose (01/23/2024 9:19 PM SALES ORDER CLERK) [facility] Glucose, POC 215(H) 70 - 199 mg/dL Blood 01/23/2024 9:19 PM SALES ORDER CLERK 01/23/2024 9:19 PM SALES ORDER CLERK Ayush Galvez MD LAB POCT ORDERABLES - DEVIC E Final Result Performing Organization Address City/[facility]/ZIP Co de Phone Number [facility] [place] [address] * (ABNORMAL) POCT glucose (01/23/2024 5:44 PM SALES ORDER CLERK) Glucose, POC 232(H) 70 - 199 mg/dL Blood 01/23/2024 5:44 PM SALES ORDER CLERK 01/23/2024 5:44 PM SALES ORDER CLERK Ayush Galvez MD LAB POCT ORDERABLES - DEVIC E Final Result Performing Organization Address [facility] [place] [address] * (ABNORMAL) POCT glucose (01/23/2024 12:11 PM SALES ORDER CLERK) Glucose, POC 217(H) 70 - 199 mg/dL Blood 01/23/2024 12:1 1 PM SALES ORDER CLERK 01/23/2024 12:11 PM SALES ORDER CLERK us Ayush Galvez MD LAB POCT ORDERABLES - DEVIC E Final Result Performing Organization Address [facility] Hospital/[facility] [place] [address] * (ABNORMAL) POCT glucose (01/23/2024 8:18 AM SALES ORDER CLERK) Glucose, POC 202(H) 70 - 199 mg/dL Blood 01/23/2024 8:18 AM SALES ORDER CLERK 01/23/2024 8:18 AM SALES ORDER CLERK Ayush Galvez MD LAB POCT ORDERABLES - DEVIC E Final Result Performing Organization Address City/[facility] Co de Phone Number [facility] [place] [address] * (ABNORMAL) Troponin I high-sensitivity (01/23/2024 6:12 AM SALES ORDER CLERK) Trop I hs 1,204(C) <=35 ng/L Comment: Previous critical value noted within 48 hours ago. Interpretive Data For further hscTnI resources including the diagnostic algorithm and an aid in interpretation, copy and paste this link: [email or web address]/show/[email or web address] Current Interpretive Data last revised 2019. Blood 01/23/2024 6:12 AM SALES ORDER CLERK 01/23/2024 6:31 AM SALES ORDER CLERK us Ayush Galvez MD LAB BLOOD ORDERABLES Final Result [facility] [place] [address] * (ABNORMAL) eGFR (01/23/2024 2:42 AM SALES ORDER CLERK) eGFR 11(L) >=60 mL/min/1. 73 m2 Comment: [...] last reviewed 2020. Blood 01/23/2024 2:42 AM SALES ORDER CLERK 01/23/2024 3:02 AM SALES ORDER CLERK us Ayush Galvez MD LAB BLOOD ORDERABLES Final Result LINDA [facility] [place] [address] * (ABNORMAL) Differential, auto (01/23/2024 2:42 AM SALES ORDER CLERK) Neutrophil abs 6.7(H) 1.5 - 6.5 K/cumm Imm gran abs 0.1 0.0 - 0.1 K/cumm [facility] Lymphocyte abs 0.1(L) 0.8 - 3.3 K/cumm [facility] Monocyte abs 0.1(L) 0.2 - 0.8 K/cumm [facility] Eosinophil abs 0.0 0.0 - 0.5 K/cumm [facility] Basophil abs 0.0 0.0 - 0.1 K/cumm [facility] Neutrophil pct 96.4 % [facility] Comment: Interpretive Data Percent cell count reference ranges are not reported, since discordance with absolute values may lead to misinterpretation of CBC data. Current Interpretive Data was last revised on 2017. Imm gran pct 0.7 % [facility] Comment: Interpretive Data Percent cell count reference ranges are not reported, since discordance with absolute values may lead to misinterpretation of CBC data. Current Interpretive Data was last revised on 2017. Lymphocyte pct 0.9 % [facility] Comment: Interpretive Data Percent cell count reference ranges are not reported, since discordance with absolute values may lead to misinterpretation of CBC data. Current Interpretive Data was last revised on 2017. Monocyte pct 2.0 % [facility] Comment: Interpretive Data Percent cell count reference ranges are not reported, since discordance with absolute values may lead to misinterpretation of CBC data. Current Interpretive Data was last revised on 2017. Eosinophil pct 0.0 % [facility] Comment: Interpretive Data Percent cell count reference ranges are not reported, since discordance with absolute values may lead to misinterpretation of CBC data. Current Interpretive Data was last revised on 2017. Basophil pct 0.0 % [facility] Comment: Interpretive Data Percent cell count reference ranges are not reported, since discordance with absolute values may lead to misinterpretation of CBC data. Current Interpretive Data was last revised on 2017. Blood 01/23/2024 2:42 AM SALES ORDER CLERK 01/23/2024 3:02 AM SALES ORDER CLERK Ayush Galvez MD LAB BLOOD ORDERABLES Final Result Performing Organization Address [facility] de Phone Number [facility] [place] [address] * Tacrolimus level trough (01/23/2024 2:42 AM SALES ORDER CLERK) [facility] Tacrolimus trough 7.8 ng/mL Comment: Interpretive Data Testing performed by liquid chromatography-tandem mass spectrometry. Therapeutic concentrations vary depending on type of transplanted organ and time elapsed since transplant. Typical trough concentrations range from 5-15 ng/mL. This test was developed and its performance characteristics determined by the [facility] consistent with CLIA requirements. This test has not been cleared or approved by the [place] Food and Drug administration. Current interpretive data last reviewed 2019. Blood 01/23/2024 2:42 AM SALES ORDER CLERK 01/23/2024 3:02 AM SALES ORDER CLERK Ayush Galvez MD LAB BLOOD ORDERABLES Final Result Performing Organization Address [facility] [place] [address] * (ABNORMAL) CBC with auto differential (01/23/2024 2:42 AM SALES ORDER CLERK) [facility] WBC 7.0 3.8 - 9.9 K/cumm Hgb 8.8(L) 13.0 - 17.5 g/dL [facility] Hct 26.4(L) 38.9 - 50.3 % [facility] Plt 89(L) 150 - 400 K/cumm [facility] MPV 11.1 9.1 - 12.3 fL [facility] RBC 2.77(L) 4.30 - 5.80 M/cumm [facility] MCV 95.3 81.3 - 96.4 fL [facility] MCH 31.8 27.1 - 33.3 pg [facility] MCHC 33.3 32.3 - 35.7 g/dL [facility] RDW CV 18.2(H) 11.1 - 14.9 % [facility] RDW SD 63.3(H) 35.7 - 48.1 fL [facility] NRBC abs 0.00 0.00 - 0.01 K/cumm [facility] Blood 01/23/2024 2:42 AM SALES ORDER CLERK 01/23/2024 3:02 AM SALES ORDER CLERK Ayush Galvez MD LAB BLOOD ORDERABLES Final Result Performing Organization Address [facility] de Phone Number [facility] [place] [address] * Magnesium (01/23/2024 2:42 AM SALES ORDER CLERK) [facility] Magnesium 2.5 1.4 - 2.5 mg/dL Blood 01/23/2024 2:42 AM SALES ORDER CLERK 01/23/2024 3:02 AM SALES ORDER CLERK Ayush Galvez MD LAB BLOOD ORDERABLES Final Result Performing Organization Address [facility] de Phone Number [facility] [place] [address] * (ABNORMAL) Renal function panel (01/23/2024 2:42 AM SALES ORDER CLERK) Pathologist [facility] Sodium 135 135 - 145 mmol/L Potassium, pl 4.7 3.3 - 4.9 mmol/L [facility] Chloride 95(L) 97 - 110 mmol/L [facility] CO2 26 22 - 32 mmol/L [facility] Anion gap 14 2 - 15 mmol/L [facility] BUN 46(H) 6 - 25 mg/dL [facility] Creatinine 5.52(H) 0.80 - 1.30 mg/dL [facility] Glucose 178 70 - 199 mg/dL [facility] Comment: Interpretive Data Fasting glucose >/= 126 [...] 2022. Calcium 9.1 8.5 - 10.3 mg/dL [facility] Phosphorus, pl 7.8(H) 2.3 - 4.5 mg/dL [facility] Albumin 3.3(L) 3.5 - 5.0 g/dL [facility] Blood 01/23/2024 2:42 AM SALES ORDER CLERK 01/23/2024 3:02 AM SALES ORDER CLERK Ayush Galvez MD LAB BLOOD ORDERABLES Final Result [facility] [place] [address] * (ABNORMAL) Troponin I high-sensitivity (01/23/2024 2:41 AM SALES ORDER CLERK) Trop I hs 1,365(C) <=35 ng/L Comment: Previous critical value noted within 48 hours ago. Interpretive Data For further hscTnI resources including the diagnostic algorithm and an aid in interpretation, copy and paste this link: [email or web address]/show/[email or web address] Current Interpretive Data last revised 2019. Blood 01/23/2024 2:41 AM SALES ORDER CLERK 01/23/2024 3:14 AM SALES ORDER CLERK Ayush Galvez MD LAB BLOOD ORDERABLES Final Result Performing Organization Address City/[facility] Co de Phone Number LINDA [facility] [place] [address] * ECG 12 lead (01/23/2024 1:02 AM SALES ORDER CLERK) Ventricular Rate EKG/Min 71 BPM [facility] Atrial Rate 250 BPM [facility] QRS-Interval (MSEC) 134 ms [facility] QT-Interval (MSEC) 436 ms [facility] QTc 473 ms [facility] R [place] 8 degrees [facility] T [place] 248 degrees [facility] Diagnosis Atrial fibrillation Non-specific intra-ventricula r conduction block T wave abnormality, consider inferolateral ischemia Abnormal ECG When compared with ECG of 22-JAN-2024 15:39, (unconfirmed) No significant change was found Confirmed by JENNIFER BYDR M.D ([id number]) on 01/25/2024 3:00:07 PM [facility] 01/23/2024 1:02 AM SALES ORDER CLERK 01/25/2024 3:00 PM SALES ORDER CLERK us Ayush Galvez MD ECG ORDERABLES Final Resul t Performing Organization Address [facility] Phone Number [facility] * (ABNORMAL) Troponin I high-sensitivity (01/22/2024 11:14 PM SALES ORDER CLERK) Pathologist [facility] Trop I hs 1,127(C) <=35 ng/L Comment: Previous critical value noted within 48 hours ago. Interpretive Data For further hscTnI resources including the diagnostic algorithm and an aid in interpretation, copy and paste this link: [email or web address]/show/[email or web address] Current Interpretive Data last revised 2019. Blood 01/22/2024 11:1 4 PM SALES ORDER CLERK 01/22/2024 11:57 PM SALES ORDER CLERK us Ayush Galvez MD LAB BLOOD ORDERABLES Final Result Performing Organization Address [facility] de Phone Number [facility]DA [facility] [place] [address] * (ABNORMAL) Troponin I high-sensitivity (01/22/2024 11:14 PM SALES ORDER CLERK) Pathologist [facility] [place] Trop I hs 1,220(C) <=35 ng/L Comment: Previous critical value noted within 48 hours ago. Interpretive Data For further hscTnI resources including the diagnostic algorithm and an aid in interpretation, copy and paste this link: [email or web address]/show/[email or web address] Current Interpretive Data last revised 2019. Blood 01/22/2024 11:1 4 PM SALES ORDER CLERK 01/22/2024 11:56 PM SALES ORDER CLERK Ayush Galvez MD LAB BLOOD ORDERABLES Final Result [facility] [place] [address] * (ABNORMAL) Differential, auto (01/22/2024 11:14 PM SALES ORDER CLERK) [facility] Neutrophil abs 7.1(H) 1.5 - 6.5 K/cumm Imm gran abs 0.0 0.0 - 0.1 K/cumm [facility] Lymphocyte abs 0.0(L) 0.8 - 3.3 K/cumm [facility] Monocyte abs 0.2 0.2 - 0.8 K/cumm [facility] Eosinophil abs 0.0 0.0 - 0.5 K/cumm [facility] Basophil abs 0.0 0.0 - 0.1 K/cumm [facility] Neutrophil pct 96.8 % [facility] Comment: Interpretive Data Percent cell count reference ranges are not reported, since discordance with absolute values may lead to misinterpretation of CBC data. Current Interpretive Data was last revised on 2017. Imm gran pct 0.5 % [facility] Comment: Interpretive Data Percent cell count reference ranges are not reported, since discordance with absolute values may lead to misinterpretation of CBC data. Current Interpretive Data was last revised on 2017. Lymphocyte pct 0.5 % [facility] Comment: Interpretive Data Percent cell count reference ranges are not reported, since discordance with absolute values may lead to misinterpretation of CBC data. Current Interpretive Data was last revised on 2017. Monocyte pct 2.2 % [facility] Comment: Interpretive Data Percent cell count reference ranges are not reported, since discordance with absolute values may lead to misinterpretation of CBC data. Current Interpretive Data was last revised on 2017. Eosinophil pct 0.0 % [facility] Comment: Interpretive Data Percent cell count reference ranges are not reported, since discordance with absolute values may lead to misinterpretation of CBC data. Current Interpretive Data was last revised on 2017. Basophil pct 0.0 % [facility] Comment: Interpretive Data Percent cell count reference ranges are not reported, since discordance with absolute values may lead to misinterpretation of CBC data. Current Interpretive Data was last revised on 2017. Blood 01/22/2024 11:1 4 PM SALES ORDER CLERK 01/22/2024 11:56 PM SALES ORDER CLERK us Larry Travis MD LAB BLOOD ORDERABLE S Final Result LINDA GALVIN [facility] [place] [address] * Tacrolimus level trough (01/22/2024 11:14 PM SALES ORDER CLERK) [facility] Signature Tacrolimus trough 11.3 ng/mL Comment: reviewed Interpretive Data Testing performed by liquid chromatography-tandem mass spectrometry. Therapeutic concentrations vary depending on type of transplanted organ and time elapsed since transplant. Typical trough concentrations range from 5-15 ng/mL. This test was developed and its performance characteristics determined by the [facility] consistent with CLIA requirements. This test has not been cleared or approved by the [place] Food and Drug administration. Current interpretive data last reviewed 2019. Blood 01/22/2024 11:1 4 PM SALES ORDER CLERK 01/22/2024 11:57 PM SALES ORDER CLERK us Ayush Galvez MD LAB BLOOD ORDERABLES Final Result Performing Organization Address [facility] Co de Phone Number [facility] [place] [address] * (ABNORMAL) CBC with auto differential (01/22/2024 11:14 PM SALES ORDER CLERK) Pathologist [facility] [place] WBC 7.4 3.8 - 9.9 K/cumm Hgb 8.5(L) 13.0 - 17.5 g/dL [facility] Hct 25.8(L) 38.9 - 50.3 % [facility] Plt 83(L) 150 - 400 K/cumm [facility] MPV 10.5 9.1 - 12.3 fL [facility] RBC 2.69(L) 4.30 - 5.80 M/cumm [facility] MCV 95.9 81.3 - 96.4 fL [facility] MCH 31.6 27.1 - 33.3 pg [facility] MCHC 32.9 32.3 - 35.7 g/dL [facility] RDW CV 17.6(H) 11.1 - 14.9 % [facility] RDW SD 61.2(H) 35.7 - 48.1 fL [facility] NRBC abs 0.00 0.00 - 0.01 K/cumm [facility] Blood 01/22/2024 11:1 4 PM SALES ORDER CLERK 01/22/2024 11:56 PM SALES ORDER CLERK Ayush Galvez MD LAB BLOOD ORDERABLES Final Result Performing Organization Address [facility] Co de Phone Number [facility] [place] [address] * Type and screen (01/22/2024 11:14 PM SALES ORDER CLERK) Pathologist [facility] [place] ABO Rh O Negative Kusum, indirect Negative [facility] Blood 01/22/2024 11:1 4 PM SALES ORDER CLERK 01/23/2024 12:05 AM SALES ORDER CLERK Narrative [facility] - 01/23/2024 1:02 AM SALES ORDER CLERK Has the patient had Daratumumab or Isatuximab in the past 6 months?->Unknown Ayush Galvez MD LAB BLOOD BANK TEST ORDERAB LES Final Result Performing Organization Address City/[facility]/ZIP Co de Phone Number [facility] [place] [address] * Transfuse RBC (01/22/2024 9:29 PM SALES ORDER CLERK) Blood Ayush Galvez MD BLOOD TRANSFUSION ORDERABLE S Final Result Performing Organization Address [facility] Co de Phone Number [place] [address] * XR Chest 1 View (01/22/2024 8:41 PM SALES ORDER CLERK) Anatomical Region Laterality Modality Body, Chest N/A Computed Radiogr aphy 01/23/2024 7:41 AM SALES ORDER CLERK Impressions 01/23/2024 7:52 AM SALES ORDER CLERK Comparison is made to chest radiograph dated [...] Erinn Morataya M.D. Narrative 01/23/2024 7:52 AM SALES ORDER CLERK EXAMINATION: 1 view chest radiograph Procedure Note [...] ult * POCT glucose (01/22/2024 8:07 PM SALES ORDER CLERK) Glucose, POC 163 70 - 199 mg/dL Blood 01/22/2024 8:07 PM SALES ORDER CLERK 01/22/2024 8:07 PM SALES ORDER CLERK Ayush Galvez MD LAB POCT ORDERABLES - DEVIC E Final Result Performing Organization Address [facility] de Phone Number [facility] [place] [address] * POCT glucose (01/22/2024 6:42 PM SALES ORDER CLERK) Glucose, POC 173 70 - 199 mg/dL Blood 01/22/2024 6:42 PM SALES ORDER CLERK 01/22/2024 6:42 PM SALES ORDER CLERK Result [facility] Ayush Galvez MD LAB POCT ORDERABLES - DEVIC E Final Result Performing Organization Address [facility] de Phone Number [facility] [place] [address] * (ABNORMAL) Troponin I high-sensitivity 6-hour (01/22/2024 6:40 PM SALES ORDER CLERK) Trop I hs 842(C) <=35 ng/L Comment: Previous critical value noted within 48 hours ago. Interpretive Data For further hscTnI resources including the diagnostic algorithm and an aid in interpretation, copy and paste this link: [email or web address]/show/[email or web address] Current Interpretive Data last revised 2019. Trop I hs pct delta 46(C) % [facility] Comment:Previous critical va lue noted within 48 hours ago. Trop I hs interp Significa nt(C) [facility] Comment:Previous critical va lue noted within 48 hours ago. Blood 01/22/2024 6:40 PM SALES ORDER CLERK 01/22/2024 6:54 PM SALES ORDER CLERK us Sushma Chino MD LAB BLOOD ORDERABLES Final Resu lt [facility] [place] [address] * TRANSTHORACIC ECHO (TTE) COMPLETE W DOPPLER/CF W CONTRAST (01/22/2024 5:31 PM SALES ORDER CLERK) LV EF 45 % CARDIOREPORT Anatomical Region Laterality Modality Ultrasound 01/22/2024 4:15 PM SALES ORDER CLERK Narrative 01/22/2024 5:57 PM SALES ORDER CLERK Patient name: Ramone Coleman Date of test: 01/22/2024 Type of test: TTE w/Doppler Hospital #: 0 Date of : 1960 (M) [employer] Project Manager: Hamida Wilkins SAIGE Referring Physician: AYUSH GALVEZ MD Contrast Agent: 0.9 ml Optison Administered, (2.1 ml wasted). Contrast Administered by: SAURAV [id number] Supervised/Interpreted by: Gamaliel Etienne MD Diagnosis: Location: [facility] Reason for test: [id number] MD (NSTEMI) MV Structure: Normal, MV Motion: Normal, [...] 2=Hypo 3=Akinetic 4=Dyskin./Aneurysm 0=Not visualized) Parasternal Long [place]:MAS=2 BAS=2 MIL=2 HARINDER=2 Parasternal Short [place]:MAS=2 MIS=2 MD=3 MIL=2 MAL=2 MA=2 Apical 4 Chambers:=2 MIS=2 BIS=2 BAL=2 MAL=2 AL=2 AC=2 Apical 2 Chambers:AI=2 MD=3 BI=2 BA=2 MA=2 AA=2 AC=2 LV Global Longitudinal Strain: RV Global Longitudinal Strain: LV Function: Mild Global reduction in LV Ejection Fraction (EF= 41-51%) RV Function: mild to moderate global hypokinesis Septal Motion: Pericardial Effusion: minimal Atrial Septum: Normal DOPPLER/COLOR FLOW DOPPLER RESULTS: Diastolic Function: indeterminate Tricuspid Valve: mild to mod TR Pulmonic Valve: Mild DC AV Regurgitation: No AR seen AV Stenosis: [...] no MS, mild to mod TR, Mild DC. Diastolic function: indeterminate. LVOT VTI 9.9 cm [...] mild MR. Mild to moderate TR. Mild DC. Est. PASP 30-35 mm Hg. Minimal pericardial effusion. Compared with 10/29/20, there has been a significant decrease in LV function. Confirmed on 01/22/2024 - 17:57:22 by Gamaliel Etienne MD By signing this report, the attending lead electrician certifies that he or she has personally supervised and interpreted the echocardiogram and has reviewed and or edited and agrees with the written comments contained within the report. Procedure Note Gamaliel Etienne MD - 01/22/2024 Patient name: Jared Ramone Date of test: 01/22/2024 Type of test: TTE w/[facility] #: 0 Date of : 1960 (M) [employer] Project Manager: Hamida Wilkins RDCS Referring Physician: AYUSH GALVEZ MD Contrast Agent: 0.9 ml Optison Administered, (2.1 ml wasted). Contrast Administered by: SAURAV [id number] Supervised/Interpreted by: Gamaliel Etienne MD Diagnosis: Location: [facility] Reason for test: [id number] MD (NSTEMI) MV Structure: Normal, MV Motion: Normal, [...] 2=Hypo 3=Akinetic 4=Dyskin./Aneurysm 0=Not visualized) Parasternal Long [place]:MAS=2 BAS=2 MIL=2 HARINDER=2 Parasternal Short [place]:MAS=2 MIS=2 MD=3 MIL=2 MAL=2 MA=2 Apical 4 Chambers:=2 MIS=2 BIS=2 BAL=2 MAL=2 AL=2 AC=2 Apical 2 Chambers:AI=2 MD=3 BI=2 BA=2 MA=2 AA=2 AC=2 LV Global Longitudinal Strain: RV Global Longitudinal Strain: LV Function: Mild Global reduction in LV Ejection Fraction (EF= 41-51%) RV Function: mild to moderate global hypokinesis Septal Motion: Pericardial Effusion: minimal Atrial Septum: Normal DOPPLER/COLOR FLOW DOPPLER RESULTS: Diastolic Function: indeterminate Tricuspid Valve: mild to mod TR Pulmonic Valve: Mild DC AV Regurgitation: No AR seen AV Stenosis: [...] no MS, mild to mod TR, Mild DC. Diastolic function: indeterminate. LVOT VTI 9.9 cm [...] mild MR. Mild to moderate TR. Mild DC. Est. PASP 30-35 mm Hg. Minimal pericardial effusion. Compared with 10/29/20, there has been a significant decrease in LV function. Confirmed on 01/22/2024 - 17:57:22 by Gamaliel Etienne MD By signing this report, the attending lead electrician certifies that he or she has personally supervised and interpreted the echocardiogram and has reviewed and or edited and agrees with the written comments contained within the report. us Ayush Galvez MD CV ECHO PROCEDURES Final Re sult * (ABNORMAL) Troponin I high-sensitivity 4-hour (01/22/2024 4:14 PM SALES ORDER CLERK) Trop I hs 738(C) <=35 ng/L Comment: Previous critical value noted within 48 hours ago. Interpretive Data For further [facility] resources including the diagnostic algorithm and an aid in interpretation, copy and paste this link: https://[email or web address].org/show/[email or web address] Current Interpretive Data last revised 2019. Trop I hs pct delta 28(C) % [facility] Comment:Previous critical va lue noted within 48 hours ago. Trop I hs interp Significa nt(C) [facility] Comment:Previous critical va lue noted within 48 hours ago. Blood 01/22/2024 4:14 PM SALES ORDER CLERK 01/22/2024 4:28 PM SALES ORDER CLERK us Sushma Chino MD LAB BLOOD ORDERABLES Final Resu lt [facility] [place] [address] * Type and screen (01/22/2024 4:14 PM SALES ORDER CLERK) Kusum, indirect Negative ABO Rh O Negative [facility] Blood 01/22/2024 4:14 PM SALES ORDER CLERK 01/22/2024 4:25 PM SALES ORDER CLERK Narrative [facility] - 01/22/2024 5:19 PM SALES ORDER CLERK Has the patient had Daratumumab or Isatuximab in the past 6 months?->Unknown us Rosalie Velásquez NP LAB BLOOD BANK TEST ORDERAB LES Final Result Performing Organization Address [facility] de Phone Number [facility] [place] [address] * ECG 12 lead (01/22/2024 3:39 PM SALES ORDER CLERK) [facility] Ventricular Rate EKG/Min 93 BPM [facility] Atrial Rate 122 BPM [facility] QRS-Interval (MSEC) 134 ms [facility] QT-Interval (MSEC) 408 ms [facility] QTc 507 ms [facility] R [place] 11 degrees [facility] T [place] -33 degrees [facility] Diagnosis Atrial fibrillation Non-specific intra-ventricula r conduction block Nonspecific ST and T wave abnormality Abnormal ECG When compared with ECG of 22-JAN-2024 12:59, (unconfirmed) T wave inversion less evident in Anterolateral leads Confirmed by ERICK ARITA M.D ([id number]) on 01/24/2024 5:47:26 AM [facility] 01/22/2024 3:39 PM SALES ORDER CLERK 01/24/2024 5:47 AM SALES ORDER CLERK us Monster Harding MD ECG ORDERABLES Final R esult Performing Organization Address [facility] Co de Phone Number [facility] * (ABNORMAL) CBC without differential (01/22/2024 2:07 PM SALES ORDER CLERK) Pathologist [facility] [place] WBC 5.3 3.8 - 9.9 K/cumm Hgb 7.7(L) 13.0 - 17.5 g/dL [facility] Hct 23.1(L) 38.9 - 50.3 % [facility] Plt 75(L) 150 - 400 K/cumm [facility] MPV 10.5 9.1 - 12.3 fL [facility] RBC 2.35(L) 4.30 - 5.80 M/cumm [facility] MCV 98.3(H) 81.3 - 96.4 fL [facility] MCH 32.8 27.1 - 33.3 pg [facility] MCHC 33.3 32.3 - 35.7 g/dL [facility] RDW CV 15.5(H) 11.1 - 14.9 % [facility] RDW SD 54.8(H) 35.7 - 48.1 fL [facility] NRBC abs 0.00 0.00 - 0.01 K/cumm [facility] Blood 01/22/2024 2:07 PM SALES ORDER CLERK 01/22/2024 2:29 PM SALES ORDER CLERK us Ayush Galvez MD LAB BLOOD ORDERABLES Final Result Performing Organization Address City/[facility] Co de Phone Number [facility] [place] [address] * ECG 12 lead (01/22/2024 12:59 PM SALES ORDER CLERK) Pathologist [facility] [place] Ventricular Rate EKG/Min 112 BPM [facility] Atrial Rate 120 BPM [facility] QRS-Interval (MSEC) 126 ms [facility] QT-Interval (MSEC) 296 ms [facility] QTc 404 ms [facility] R [place] 8 degrees [facility] T [place] 207 degrees [facility] Diagnosis Atrial fibrillation with rapid ventricular response Non-specific intra-ventricula r conduction block Nonspecific ST and T wave abnormality Abnormal ECG When compared with ECG of 21-JAN-2024 05:17, (unconfirmed) Atrial fibrillation has replaced Sinus rhythm ST now depressed in Anterior leads T wave inversion now evident in Anterolateral leads Confirmed by ERICK ARITA M.D ([id number]) on 01/24/2024 5:44:44 AM [facility] 01/22/2024 12:5 9 PM SALES ORDER CLERK 01/24/2024 5:44 AM SALES ORDER CLERK us Sushma Chino MD ECG ORDERABLES Final Result Performing Organization Address City/[facility] Co de Phone Number [employer] [facility] * (ABNORMAL) Troponin I high-sensitivity series (baseline, 2hr, 4hr, 6hr) (01/22/2024 12:18 PM SALES ORDER CLERK) Trop I hs 575(C) <=35 ng/L Comment: Interpretive Data For further hscTnI resources including the diagnostic algorithm and an aid in interpretation, copy and paste this link: [email or web address] Current Interpretive Data last revised 2019. Blood 01/22/2024 12:1 8 PM SALES ORDER CLERK 01/22/2024 12:36 PM SALES ORDER CLERK Sushma Chino MD LAB BLOOD ORDERABLES Final Resu lt Performing Organization Address City/[facility]/ZIP Co de Phone Number [facility] [place] [address] * Critical result callback Cardio chemistry (01/22/2024 12:18 PM SALES ORDER CLERK) Date Notified [id number] Time Notified 2 LINDA [facility] Test name Trop I hs base LINDA [facility] Called/Read Back Clarissa Dominguez [facility] Credentials RN LINDA [facility] Called By CHANDA BALLARD Blood 01/22/2024 12:1 8 PM SALES ORDER CLERK 01/22/2024 12:36 PM SALES ORDER CLERK Sushma Chino MD LAB BLOOD ORDERABLES Final Resu lt Performing Organization Address City/[facility]/ZIP Co de Phone Number [facility] [place] [address] * (ABNORMAL) eGFR (01/22/2024 12:18 PM SALES ORDER CLERK) eGFR 13(L) >=60 mL/min/1. 73 m2 Comment: [...] reviewed 2020. Blood 01/22/2024 12:1 8 PM SALES ORDER CLERK 01/22/2024 12:36 PM SALES ORDER CLERK Sushma Chino MD LAB BLOOD ORDERABLES Final [facility] lt [facility] [place] [address] * (ABNORMAL) Phosphorus (01/22/2024 12:18 PM SALES ORDER CLERK) Phosphorus, pl 5.8(H) 2.3 - 4.5 mg/dL Blood 01/22/2024 12:1 8 PM SALES ORDER CLERK 01/22/2024 12:36 PM SALES ORDER CLERK Sushma Chino MD LAB BLOOD ORDERABLES Final Resu lt [facility] [place] [address] * Magnesium (01/22/2024 12:18 PM SALES ORDER CLERK) Magnesium 1.8 1.4 - 2.5 mg/dL Blood 01/22/2024 12:1 8 PM SALES ORDER CLERK 01/22/2024 12:36 PM SALES ORDER CLERK Sushma Chino MD LAB BLOOD ORDERABLES Final Resu lt [facility] [place] [address] * (ABNORMAL) Basic metabolic panel (01/22/2024 12:18 PM SALES ORDER CLERK) Sodium 135 135 - 145 mmol/L Potassium, pl 4.0 3.3 - 4.9 mmol/L [facility] Chloride 94(L) 97 - 110 mmol/L [facility] CO2 26 22 - 32 mmol/L [facility] Anion gap 15 2 - 15 mmol/L [facility] BUN 33(H) 6 - 25 mg/dL [facility] Creatinine 4.67(H) 0.80 - 1.30 mg/dL [facility] Glucose 130 70 - 199 mg/dL [facility] Comment: Interpretive Data Fasting glucose >/= 126 [...] 2022. Calcium 8.6 8.5 - 10.3 mg/dL [facility] Blood 01/22/2024 12:1 8 PM SALES ORDER CLERK 01/22/2024 12:36 PM SALES ORDER CLERK Sushma Chino MD LAB BLOOD ORDERABLES Final Resu lt LINDA BALLARD [facility] [place] [address] * POCT glucose (01/22/2024 11:35 AM SALES ORDER CLERK) Glucose, POC 134 70 - 199 mg/dL Blood 01/22/2024 11:3 5 AM SALES ORDER CLERK 01/22/2024 11:35 AM SALES ORDER CLERK us Ayush Galvez MD LAB POCT ORDERABLES - DEVIC E Final Result [facility] [place] [address] * XR Abdomen Ap 1 Vw (01/22/2024 10:29 AM SALES ORDER CLERK) Anatomical Region Laterality Modality Body, Abdomen N/A Computed Radiogr aphy 01/22/2024 10:3 9 AM SALES ORDER CLERK Impressions 01/22/2024 11:52 AM SALES ORDER CLERK A single view of the abdomen is [...] Mohsen Vallejo M.D. Narrative 01/22/2024 11:52 AM SALES ORDER CLERK EXAMINATION: Abdomen, one view. HISTORY: Abdominal closure [...] IMG XR PROCEDURES Final Re sult * DC AN ELECTIVE ENDOTRACHEAL AIRWAY, DC AN PROCEDURE PLACEHOLDER (01/22/2024 9:42 AM SALES ORDER CLERK) Narrative Nisa PatriciaLESLIE - 01/22/2024 9:42 AM SALES ORDER CLERK [place] Nisa Titus, BOLTER HELPER 01/22/2024 9:56 AM Airway Patient location: OR [...] of attempts: 1 Planned trial extubation: yes Mathieu Beaver MD ANESTHESIA ORDERA BLES Edited Result - Final * (ABNORMAL) eGFR (01/22/2024 9:02 AM SALES ORDER CLERK) eGFR 13(L) >=60 mL/min/1. 73 m2 Comment: [...] last reviewed 2020. Blood 01/22/2024 9:02 AM SALES ORDER CLERK 01/22/2024 9:25 AM SALES ORDER CLERK us Mathieu Hayden MD LAB BLOOD ORDERABLES Final Result [facility] [place] [address] * (ABNORMAL) Basic metabolic panel (01/22/2024 9:02 AM SALES ORDER CLERK) Sodium 134(L) 135 - 145 mmol/L Potassium, pl 4.1 3.3 - 4.9 mmol/L [facility] Chloride 92(L) 97 - 110 mmol/L [facility] CO2 27 22 - 32 mmol/L [facility] Anion gap 15 2 - 15 mmol/L [facility] BUN 32(H) 6 - 25 mg/dL [facility] Creatinine 4.62(H) 0.80 - 1.30 mg/dL [facility] Glucose 168 70 - 199 mg/dL [facility] Comment: Interpretive Data Fasting glucose >/= 126 [...] 2022. Calcium 9.2 8.5 - 10.3 mg/dL [facility] Blood 01/22/2024 9:02 AM SALES ORDER CLERK 01/22/2024 9:25 AM SALES ORDER CLERK us Mathieu Hayden MD LAB BLOOD ORDERABLES Final Result Performing Organization Address [facility] Co de Phone Number [facility] [place] [address] * POCT glucose (01/22/2024 9:01 AM SALES ORDER CLERK) Glucose, POC 177 70 - 199 mg/dL Blood 01/22/2024 9:01 AM SALES ORDER CLERK 01/22/2024 9:01 AM SALES ORDER CLERK us Ayush Galvez MD LAB POCT ORDERABLES - DEVIC E Final Result Performing Organization Address [facility] de Phone Number [facility] [place] [address] * POCT glucose (01/22/2024 8:26 AM SALES ORDER CLERK) Glucose, POC 154 70 - 199 mg/dL Blood 01/22/2024 8:26 AM SALES ORDER CLERK 01/22/2024 8:26 AM SALES ORDER CLERK us Ayush Galvez MD LAB POCT ORDERABLES - DEVIC E Final Result Performing Organization Address [facility] de Phone Number [facility] [place] [address] * (ABNORMAL) eGFR (01/22/2024 4:58 AM SALES ORDER CLERK) eGFR 15(L) >=60 mL/min/1. 73 m2 Comment: [...] last reviewed 2020. Blood 01/22/2024 4:58 AM SALES ORDER CLERK 01/22/2024 5:46 AM SALES ORDER CLERK us Larry Travis MD LAB BLOOD ORDERABLE S Final Result [facility] [place] [address] * (ABNORMAL) Differential, auto (01/22/2024 4:58 AM SALES ORDER CLERK) Neutrophil abs 5.8 1.5 - 6.5 K/cumm Imm gran abs 0.0 0.0 - 0.1 K/cumm [facility] Lymphocyte abs 0.0(L) 0.8 - 3.3 K/cumm [facility] Monocyte abs 0.2 0.2 - 0.8 K/cumm [facility] Eosinophil abs 0.0 0.0 - 0.5 K/cumm [facility] Basophil abs 0.0 0.0 - 0.1 K/cumm [facility] Neutrophil pct 96.0 % [facility] Comment: Interpretive Data Percent cell count reference ranges are not reported, since discordance with absolute values may lead to misinterpretation of CBC data. Current Interpretive Data was last revised on 2017. Imm gran pct 0.3 % [facility] Comment: Interpretive Data Percent cell count reference ranges are not reported, since discordance with absolute values may lead to misinterpretation of CBC data. Current Interpretive Data was last revised on 2017. Lymphocyte pct 0.7 % [facility] Comment: Interpretive Data Percent cell count reference ranges are not reported, since discordance with absolute values may lead to misinterpretation of CBC data. Current Interpretive Data was last revised on 2017. Monocyte pct 3.0 % [facility] Comment: Interpretive Data Percent cell count reference ranges are not reported, since discordance with absolute values may lead to misinterpretation of CBC data. Current Interpretive Data was last revised on 2017. Eosinophil pct 0.0 % [facility] Comment: Interpretive Data Percent cell count reference ranges are not reported, since discordance with absolute values may lead to misinterpretation of CBC data. Current Interpretive Data was last revised on 2017. Basophil pct 0.0 % [facility] Comment: Interpretive Data Percent cell count reference ranges are not reported, since discordance with absolute values may lead to misinterpretation of CBC data. Current Interpretive Data was last revised on 2017. Blood 01/22/2024 4:58 AM SALES ORDER CLERK 01/22/2024 5:45 AM SALES ORDER CLERK us Larry Travis MD LAB BLOOD ORDERABLE S Final Result Performing Organization Address [facility] Co de Phone Number [facility] [place] [address] * Tacrolimus level trough (01/22/2024 4:58 AM SALES ORDER CLERK) [facility] Signature Tacrolimus trough 4.7 ng/mL Comment: Interpretive Data Testing performed by liquid chromatography-tandem mass spectrometry. Therapeutic concentrations vary depending on type of transplanted organ and time elapsed since transplant. Typical trough concentrations range from 5-15 ng/mL. This test was developed and its performance characteristics determined by the [facility] consistent with CLIA requirements. This test has not been cleared or approved by the [place] Food and Drug administration. Current interpretive data last reviewed 2019. Blood 01/22/2024 4:58 AM SALES ORDER CLERK 01/22/2024 5:46 AM SALES ORDER CLERK us Ayush Galvez MD LAB BLOOD ORDERABLES Final Result Performing Organization Address City/[facility] Co de Phone Number [facility] [place] [address] * (ABNORMAL) CBC with auto differential (01/22/2024 4:58 AM SALES ORDER CLERK) [facility] WBC 6.0 3.8 - 9.9 K/cumm Hgb 8.2(L) 13.0 - 17.5 g/dL [facility] Hct 23.8(L) 38.9 - 50.3 % [facility] Plt 79(L) 150 - 400 K/cumm [facility] MPV 10.2 9.1 - 12.3 fL [facility] RBC 2.48(L) 4.30 - 5.80 M/cumm [facility] MCV 96.0 81.3 - 96.4 fL [facility] MCH 33.1 27.1 - 33.3 pg [facility] MCHC 34.5 32.3 - 35.7 g/dL [facility] RDW CV 15.3(H) 11.1 - 14.9 % [facility] RDW SD 53.1(H) 35.7 - 48.1 fL [facility] NRBC abs 0.00 0.00 - 0.01 K/cumm [facility] Blood 01/22/2024 4:58 AM SALES ORDER CLERK 01/22/2024 5:45 AM SALES ORDER CLERK us Ayush Galvez MD LAB BLOOD ORDERABLES Final Result Performing Organization Address City/[facility] Co de Phone Number [facility] [place] [address] * Magnesium (01/22/2024 4:58 AM SALES ORDER CLERK) [facility] Magnesium 2.2 1.4 - 2.5 mg/dL Blood 01/22/2024 4:58 AM SALES ORDER CLERK 01/22/2024 5:46 AM SALES ORDER CLERK Ayush Galvez MD LAB BLOOD ORDERABLES Final Result Performing Organization Address City/[facility]/ZIP Co de Phone Number [facility] [place] [address] * (ABNORMAL) Lactate dehydrogenase (LD) (01/22/2024 4:58 AM SALES ORDER CLERK) [facility] Lactate dehydrogenase (LDH) 252(H) 100 - 250 Units/L Blood 01/22/2024 4:58 AM SALES ORDER CLERK 01/22/2024 5:46 AM SALES ORDER CLERK Ayush Galvez MD LAB BLOOD ORDERABLES Final Result Performing Organization Address [facility] [place] [address] * Haptoglobin (01/22/2024 4:58 AM SALES ORDER CLERK) [facility] Haptoglobin 116.0 30.0 - 200.0 mg/dL Blood 01/22/2024 4:58 AM SALES ORDER CLERK 01/22/2024 5:46 AM SALES ORDER CLERK Ayush Galvez MD LAB BLOOD ORDERABLES Final Result Performing Organization Address [facility] Co de Phone Number [facility] [place] [address] * (ABNORMAL) Renal function panel (01/22/2024 4:58 AM SALES ORDER CLERK) [facility] Sodium 134(L) 135 - 145 mmol/L Potassium, pl 4.4 3.3 - 4.9 mmol/L [facility] Chloride 93(L) 97 - 110 mmol/L [facility] CO2 30 22 - 32 mmol/L [facility] Anion gap 11 2 - 15 mmol/L [facility] BUN 29(H) 6 - 25 mg/dL [facility] Creatinine 4.19(H) 0.80 - 1.30 mg/dL [facility] Glucose 125 70 - 199 mg/dL [facility] Comment: Interpretive Data Fasting glucose >/= 126 [...] 2022. Calcium 9.2 8.5 - 10.3 mg/dL [facility] Phosphorus, pl 5.6(H) 2.3 - 4.5 mg/dL [facility] Albumin 3.4(L) 3.5 - 5.0 g/dL [facility] Blood 01/22/2024 4:58 AM SALES ORDER CLERK 01/22/2024 5:46 AM SALES ORDER CLERK Ayush Galvez MD LAB BLOOD ORDERABLES Final Result Performing Organization Address City/[facility]/ZIP Co de Phone Number [facility] [place] [address] * (ABNORMAL) POCT glucose (01/21/2024 8:34 PM SALES ORDER CLERK) Glucose, POC 238(H) 70 - 199 mg/dL Blood 01/21/2024 8:34 PM SALES ORDER CLERK 01/21/2024 8:34 PM SALES ORDER CLERK Ayush Galvez MD LAB POCT ORDERABLES - DEVIC E Final Result Performing Organization Address [facility]/ZIP Co de Phone Number [facility] [place] [address] * (ABNORMAL) POCT glucose (01/21/2024 6:37 PM SALES ORDER CLERK) Glucose, POC 202(H) 70 - 199 mg/dL Blood 01/21/2024 6:37 PM SALES ORDER CLERK 01/21/2024 6:37 PM SALES ORDER CLERK us Ayush Galvez MD LAB POCT ORDERABLES - DEVIC E Final Result [facility] [place] [address] * (ABNORMAL) Potassium, whole blood (01/21/2024 4:22 PM SALES ORDER CLERK) [facility] Potassium, bld 6.0(H) 3.3 - 4.9 mmol/L Blood 01/21/2024 4:22 PM SALES ORDER CLERK 01/21/2024 4:32 PM SALES ORDER CLERK us Rosalie Velásquez NP LAB BLOOD ORDERABLES Final Result Performing Organization Address [facility] Co de Phone Number [facility] [place] [address] * (ABNORMAL) CBC without differential (01/21/2024 1:51 PM SALES ORDER CLERK) [facility] WBC 14.5(H) 3.8 - 9.9 K/cumm Hgb 8.5(L) 13.0 - 17.5 g/dL [facility] Hct 25.8(L) 38.9 - 50.3 % [facility] Plt 101(L) 150 - 400 K/cumm [facility] MPV 10.4 9.1 - 12.3 fL [facility] RBC 2.61(L) 4.30 - 5.80 M/cumm [facility] MCV 98.9(H) 81.3 - 96.4 fL [facility] MCH 32.6 27.1 - 33.3 pg [facility] MCHC 32.9 32.3 - 35.7 g/dL [facility] RDW CV 15.6(H) 11.1 - 14.9 % [facility] RDW SD 55.2(H) 35.7 - 48.1 fL [facility] NRBC abs 0.00 0.00 - 0.01 K/cumm [facility] Blood 01/21/2024 1:51 PM SALES ORDER CLERK 01/21/2024 2:12 PM SALES ORDER CLERK Susi LEE LAB BLOOD ORDERABLES Final Result Performing Organization Address [facility] Co de Phone Number [facility] [place] [address] * POCT glucose (01/21/2024 12:26 PM SALES ORDER CLERK) Glucose, POC 178 70 - 199 mg/dL Blood 01/21/2024 12:2 6 PM SALES ORDER CLERK 01/21/2024 12:26 PM SALES ORDER CLERK Ayush Galvez MD LAB POCT ORDERABLES - DEVIC E Final Result Performing Organization Address [facility] Co de Phone Number [facility] [place] [address] * DC AN PROCEDURE PLACEHOLDER (01/21/2024 10:41 AM SALES ORDER CLERK) Narrative Roscoe Sandhu MD - 01/21/2024 10:41 AM SALES ORDER CLERK Roscoe Sandhu MD 01/21/2024 10:43 AM Arterial [...] with no complications Additional comments: Ultrasound guided us Roscoe Sandhu MD ANESTHESIA ORDERABLES Final Re sult * (ABNORMAL) Potassium (01/21/2024 8:39 AM SALES ORDER CLERK) Potassium, pl 6.1(H) 3.3 - 4.9 mmol/L Blood 01/21/2024 8:39 AM SALES ORDER CLERK 01/21/2024 9:10 AM SALES ORDER CLERK Narrative [facility] - 01/21/2024 9:32 AM SALES ORDER CLERK Provider to discontinue after two normal results. Ayush Galvez MD LAB BLOOD ORDERABLES Final Result Performing Organization Address [facility] de Phone Number [facility] [place] [address] * (ABNORMAL) POCT glucose (01/21/2024 8:10 AM SALES ORDER CLERK) Glucose, POC 297(H) 70 - 199 mg/dL Blood 01/21/2024 8:10 AM SALES ORDER CLERK 01/21/2024 8:10 AM SALES ORDER CLERK Ayush Galvez MD LAB POCT ORDERABLES - DEVIC E Final Result Performing Organization Address [facility] de Phone Number [facility] [place] [address] * (ABNORMAL) POCT glucose (01/21/2024 6:47 AM SALES ORDER CLERK) Glucose, POC 236(H) 70 - 199 mg/dL Blood 01/21/2024 6:47 AM SALES ORDER CLERK 01/21/2024 6:47 AM SALES ORDER CLERK Ayush Galvez MD LAB POCT ORDERABLES - DEVIC E Final Result Performing Organization Address [facility] de Phone Number [facility] [place] [address] * (ABNORMAL) POCT glucose (01/21/2024 5:46 AM SALES ORDER CLERK) Glucose, POC 234(H) 70 - 199 mg/dL Blood 01/21/2024 5:46 AM SALES ORDER CLERK 01/21/2024 5:46 AM SALES ORDER CLERK us Ayush Galvez MD LAB POCT ORDERABLES - DEVIC E Final Result Performing Organization Address City/[facility] Co de Phone Number [facility] [place] [address] * (ABNORMAL) Potassium, whole blood (01/21/2024 5:22 AM SALES ORDER CLERK) Potassium, bld 5.7(H) 3.3 - 4.9 mmol/L Comment:No hemolyse Blood 01/21/2024 5:2 2 AM SALES ORDER CLERK 01/21/2024 5:28 AM SALES ORDER CLERK us Ayush Galvez MD LAB BLOOD ORDERABLES Final Result Performing Organization Address [facility] de Phone Number [facility] [place] [address] * ECG 12 lead (01/21/2024 5:17 AM SALES ORDER CLERK) Ventricular Rate EKG/Min 82 BPM [facility] Atrial Rate 82 BPM [facility] DC-Interval (MSEC) 256 ms [facility] QRS-Interval (MSEC) 132 ms [facility] [facility] QT-Interval (MSEC) 408 ms [facility] QTc 476 ms [facility] P [place] 71 degrees [facility] R [place] 13 degrees [facility] T [place] -20 degrees [facility] Diagnosis Sinus rhythm with marked sinus arrhythmia with 1st degree A-V block Non-specific intra-ventricu lar conduction block Abnormal ECG When compared with ECG of 17-SEP-2023 08:34, No significant change was found Confirmed by JENNIFER BYRD M.D ([id number]) on 01/22/2024 5:00:18 PM [facility] 01/21/2024 5:17 AM SALES ORDER CLERK 01/22/2024 5:00 PM SALES ORDER CLERK us Ayush Galvez MD ECG ORDERABLES Final Resul t [facility] * (ABNORMAL) eGFR (01/21/2024 4:18 AM SALES ORDER CLERK) Pathologist [facility] [place] eGFR 10(L) >=60 mL/min/1. 73 m2 Comment: [...] last reviewed 2020. Blood 01/21/2024 4:18 AM SALES ORDER CLERK 01/21/2024 4:33 AM SALES ORDER CLERK us Larry Travis MD LAB BLOOD ORDERABLE S Final Result [facility] [place] [address] * (ABNORMAL) Differential, auto (01/21/2024 4:18 AM SALES ORDER CLERK) Neutrophil abs 10.2(H) 1.5 - 6.5 K/cumm Imm gran abs 0.0 0.0 - 0.1 K/cumm [facility] Lymphocyte abs 0.0(L) 0.8 - 3.3 K/cumm [facility] Monocyte abs 0.2 0.2 - 0.8 K/cumm [facility] Eosinophil abs 0.0 0.0 - 0.5 K/cumm [facility] Basophil abs 0.0 0.0 - 0.1 K/cumm [facility] Neutrophil pct 97.4 % [facility] Comment: Interpretive Data Percent cell count reference ranges are not reported, since discordance with absolute values may lead to misinterpretation of CBC data. Current Interpretive Data was last revised on 2017. Imm gran pct 0.4 % [facility] Comment: Interpretive Data Percent cell count reference ranges are not reported, since discordance with absolute values may lead to misinterpretation of CBC data. Current Interpretive Data was last revised on 2017. Lymphocyte pct 0.2 % [facility] Comment: Interpretive Data Percent cell count reference ranges are not reported, since discordance with absolute values may lead to misinterpretation of CBC data. Current Interpretive Data was last revised on 2017. Monocyte pct 1.9 % [facility] Comment: Interpretive Data Percent cell count reference ranges are not reported, since discordance with absolute values may lead to misinterpretation of CBC data. Current Interpretive Data was last revised on 2017. Eosinophil pct 0.0 % [facility] Comment: Interpretive Data Percent cell count reference ranges are not reported, since discordance with absolute values may lead to misinterpretation of CBC data. Current Interpretive Data was last revised on 2017. Basophil pct 0.1 % [facility] Comment: Interpretive Data Percent cell count reference ranges are not reported, since discordance with absolute values may lead to misinterpretation of CBC data. Current Interpretive Data was last revised on 2017. Blood 01/21/2024 4:18 AM SALES ORDER CLERK 01/21/2024 4:34 AM SALES ORDER CLERK us Larry Travis MD LAB BLOOD ORDERABLE S Final Result [facility] Department [place] [address] * Critical Result Callback Chemistry (01/21/2024 4:18 AM SALES ORDER CLERK) Date Notified [id number] Time Notified 509 [facility] TestName Potassium Plas [facility]DA GALVIN Called/Read Back Vibha MC[facility] Credentials RN [facility] Called By SANDEEP [facility] Blood 01/21/2024 4:18 AM SALES ORDER CLERK 01/21/2024 4:33 AM SALES ORDER CLERK us Larry Travis MD LAB BLOOD ORDERABLE S Final Result Performing Organization Address [facility] de Phone Number [facility] [place] [address] * Tacrolimus level trough (01/21/2024 4:18 AM SALES ORDER CLERK) Pathologist [facility] [place] Tacrolimus trough <1.0 ng/mL Comment: Undetectable. Please verify that the correct immunosuppressant test was requested. Interpretive Data Testing performed by liquid chromatography-tandem mass spectrometry. Therapeutic concentrations vary depending on type of transplanted organ and time elapsed since transplant. Typical trough concentrations range from 5-15 ng/mL. This test was developed and its performance characteristics determined by the [facility] consistent with CLIA requirements. This test has not been cleared or approved by the [place] Food and Drug administration. Current interpretive data last reviewed 2019. Blood 01/21/2024 4:18 AM SALES ORDER CLERK 01/21/2024 4:34 AM SALES ORDER CLERK us Ayush Galvez MD LAB BLOOD ORDERABLES Final Result Performing Organization Address [facility] de Phone Number [facility] [place] [address] * (ABNORMAL) CBC with auto differential (01/21/2024 4:18 AM SALES ORDER CLERK) Pathologist [facility] [place] WBC 10.5(H) 3.8 - 9.9 K/cumm Hgb 8.7(L) 13.0 - 17.5 g/dL [facility] Hct 25.8(L) 38.9 - 50.3 % [facility] Plt 110(L) 150 - 400 K/cumm [facility] MPV 9.7 9.1 - 12.3 fL [facility] RBC 2.66(L) 4.30 - 5.80 M/cumm [facility] MCV 97.0(H) 81.3 - 96.4 fL [facility] MCH 32.7 27.1 - 33.3 pg [facility] MCHC 33.7 32.3 - 35.7 g/dL [facility] RDW CV 15.9(H) 11.1 - 14.9 % [facility] RDW SD 55.3(H) 35.7 - 48.1 fL [facility] NRBC abs 0.00 0.00 - 0.01 K/cumm [facility] Blood 01/21/2024 4:18 AM SALES ORDER CLERK 01/21/2024 4:34 AM SALES ORDER CLERK Ayush Galvez MD LAB BLOOD ORDERABLES Final Result Performing Organization Address [facility] Co de Phone Number [facility] [place] [address] * Magnesium (01/21/2024 4:18 AM SALES ORDER CLERK) [facility] Magnesium 2.1 1.4 - 2.5 mg/dL Blood 01/21/2024 4:18 AM SALES ORDER CLERK 01/21/2024 4:33 AM SALES ORDER CLERK Ayush Galvez MD LAB BLOOD ORDERABLES Final Result Performing Organization Address City/[facility] Co de Phone Number [facility] [place] [address] * (ABNORMAL) Renal function panel (01/21/2024 4:18 AM SALES ORDER CLERK) Pathologist [facility] [place] Sodium 135 135 - 145 mmol/L Potassium, pl 6.4(C) 3.3 - 4.9 mmol/L [facility] Chloride 94(L) 97 - 110 mmol/L [facility] CO2 25 22 - 32 mmol/L [facility] Anion gap 16(H) 2 - 15 mmol/L [facility] BUN 34(H) 6 - 25 mg/dL [facility] Creatinine 5.99(H) 0.80 - 1.30 mg/dL [facility] Glucose 217(H) 70 - 199 mg/dL [facility] Comment: Interpretive Data Fasting glucose >/= 126 [...] 2022. Calcium 9.0 8.5 - 10.3 mg/dL [facility] Phosphorus, pl 6.5(H) 2.3 - 4.5 mg/dL [facility] Albumin 3.5 3.5 - 5.0 g/dL [facility] Blood 01/21/2024 4:18 AM SALES ORDER CLERK 01/21/2024 4:33 AM SALES ORDER CLERK us Ayush Galvez MD LAB BLOOD ORDERABLES Final Result [facility] [place] [address] * US Renal Transplant W Dopplers (01/20/2024 11:24 PM SALES ORDER CLERK) Anatomical Region Laterality Modality Kidney N/A Ultrasound 01/21/2024 1:42 AM SALES ORDER CLERK Impressions 01/21/2024 8:21 AM SALES ORDER CLERK 1. Normal transplant kidney morphology without hydronephrosis. [...] Kyle Perez M.D. Narrative 01/21/2024 8:21 AM SALES ORDER CLERK EXAMINATION: RENAL TRANSPLANT ULTRASOUND WITH DOPPLER HISTORY: [...] * (ABNORMAL) POCT glucose (01/20/2024 8:56 PM SALES ORDER CLERK) Glucose, POC 263(H) 70 - 199 mg/dL Blood 01/20/2024 8:56 PM SALES ORDER CLERK 01/20/2024 8:56 PM SALES ORDER CLERK us Ayush Galvez MD LAB POCT ORDERABLES - DEVIC E Final Result [facility] [place] [address] * XR Chest 1 View (01/20/2024 5:58 PM SALES ORDER CLERK) Anatomical Region Laterality Modality Body, Chest N/A Computed Radiogr aphy 01/21/2024 9:14 AM SALES ORDER CLERK Impressions 01/21/2024 9:14 AM SALES ORDER CLERK Comparison 01/18/2024. Sternal plates and wires are aligned and intact. Right internal jugular central venous catheter tip overlies superior vena cava. Mild bibasilar opacity may represent a combination of mild edema and atelectasis superimposed on underlying chronic interstitial lung disease, unchanged given the smaller lung volumes. No pneumothorax seen. Cardiomediastinal silhouette stable. Electronically signed by: Omar Hollins M.D. Narrative 01/21/2024 9:14 AM SALES ORDER CLERK EXAMINATION: 1 view chest radiograph Procedure Note [...] stable. Electronically signed by: Omar Hollins M.D. us Christi Marsh MD IMG XR PROCEDURES Final R esult * (ABNORMAL) eGFR (01/20/2024 5:08 PM SALES ORDER CLERK) eGFR 12(L) >=60 mL/min/1. 73 m2 Comment: [...] last reviewed 2020. Blood 01/20/2024 5:08 PM SALES ORDER CLERK 01/20/2024 5:27 PM SALES ORDER CLERK us Larry Travis MD LAB BLOOD ORDERABLE S Final Result [facility] [place] [address] * (ABNORMAL) CBC without differential (01/20/2024 5:08 PM SALES ORDER CLERK) Pathologist [facility] [place] WBC 11.3(H) 3.8 - 9.9 K/cumm Hgb 9.4(L) 13.0 - 17.5 g/dL [facility] Hct 28.1(L) 38.9 - 50.3 % [facility] Plt 134(L) 150 - 400 K/cumm [facility] MPV 9.4 9.1 - 12.3 fL [facility] RBC 2.88(L) 4.30 - 5.80 M/cumm [facility] MCV 97.6(H) 81.3 - 96.4 fL [facility] MCH 32.6 27.1 - 33.3 pg [facility] MCHC 33.5 32.3 - 35.7 g/dL [facility] RDW CV 15.4(H) 11.1 - 14.9 % [facility] RDW SD 54.8(H) 35.7 - 48.1 fL [facility] NRBC abs 0.03(H) 0.00 - 0.01 K/cumm [facility] Blood 01/20/2024 5:08 PM SALES ORDER CLERK 01/20/2024 5:27 PM SALES ORDER CLERK us Larry Travis MD LAB BLOOD ORDERABLE S Final Result [facility] [place] [address] * (ABNORMAL) Renal function panel (01/20/2024 5:08 PM SALES ORDER CLERK) Sodium 136 135 - 145 mmol/L Potassium, pl 5.0(H) 3.3 - 4.9 mmol/L [facility] Chloride 95(L) 97 - 110 mmol/L [facility] CO2 27 22 - 32 mmol/L [facility] Anion gap 14 2 - 15 mmol/L [facility] BUN 25 6 - 25 mg/dL [facility] Creatinine 5.21(H) 0.80 - 1.30 mg/dL [facility] Glucose 180 70 - 199 mg/dL [facility] Comment: Interpretive Data Fasting glucose >/= 126 [...] 2022. Calcium 9.0 8.5 - 10.3 mg/dL [facility] Phosphorus, pl 6.0(H) 2.3 - 4.5 mg/dL [facility] Albumin 3.3(L) 3.5 - 5.0 g/dL [facility] Blood 01/20/2024 5:08 PM SALES ORDER CLERK 01/20/2024 5:27 PM SALES ORDER CLERK Larry Travis MD LAB BLOOD ORDERABLE S Final Result Performing Organization Address City/[facility]/ZIP Co de Phone Number [facility] [place] [address] * POCT glucose (01/20/2024 4:51 PM SALES ORDER CLERK) Glucose, POC 162 70 - 199 mg/dL Blood 01/20/2024 4:51 PM SALES ORDER CLERK 01/20/2024 4:51 PM SALES ORDER CLERK Larry Travis MD LAB POCT ORDERABLES - DEVICE Final Result Performing Organization Address City/[facility] Co de Phone Number [facility] [place] [address] * (ABNORMAL) POC Blood Gas and Chemistries, Arterial - (01/20/2024 4:23 PM SALES ORDER CLERK) pH, Art POC 7.33(L) 7.35 - 7.45 pCO2, Art POC 54(H) 35 - 45 mmHg [facility] pO2, Art POC 104 83 - 108 mmHg [facility] Na, POC 135 135 - 145 mmol/L [facility] K POC 5.2(H) 3.3 - 4.9 mmol/L [facility] Comment: Interpretive Data Not all point of care methods assess for hemolysis. Confirm with instrument and retest K+ if not consistent with clinical signs and symptoms. Current Interpretive Data was last revised on 2023. Cl, POC 99 97 - 110 mmol/L [facility] Ionized Ca, POC 4.82 4.50 - 5.10 mg/dL [facility] Glucose, POC 171 70 - 199 mg/dL [facility] Lactate, POC 2.6(H) 0.7 - 2.2 mmol/L [facility] SO2 (elvia) arterial 99(H) 90 - 95 % [facility] Base excess, POC 1.9 mmol/L [facility] Hct, POC 30.0(L) 41.4 - 51.6 % [facility] Total Hb, POC 9.9(L) 13.8 - 17.2 g/dL [facility] Blood 01/20/2024 4:23 PM SALES ORDER CLERK 01/20/2024 4:23 PM SALES ORDER CLERK Larry Travis MD LAB POCT ORDERABLES - DEVICE Final Result Performing Organization Address City/[facility] Co de Phone Number [facility] [place] [address] * Transfuse RBC (01/20/2024 4:00 PM SALES ORDER CLERK) Blood Roscoe Sandhu MD BLOOD TRANSFUSION ORDERABLES F inal Result Performing Organization Address [facility] Co de Phone Number [facility] [place] [address] * (ABNORMAL) POC Blood Gas and Chemistries, Arterial - (01/20/2024 3:09 PM SALES ORDER CLERK) pH, Art POC 7.42 7.35 - 7.45 pCO2, Art POC 47(H) 35 - 45 mmHg [facility] pO2, Art POC 77(L) 83 - 108 mmHg [facility] Na, POC 135 135 - 145 mmol/L [facility] K POC 5.2(H) 3.3 - 4.9 mmol/L [facility] Comment: Interpretive Data Not all point of care methods assess for hemolysis. Confirm with instrument and retest K+ if not consistent with clinical signs and symptoms. Current Interpretive Data was last revised on 2023. Ionized Ca, POC 4.79 4.50 - 5.10 mg/dL [facility] Glucose, POC 134 70 - 199 mg/dL [facility] Lactate, POC 1.5 0.7 - 2.2 mmol/L [facility] SO2 (elvia) arterial 98(H) 90 - 95 % [facility] Base excess, POC 5.3 mmol/L [facility] Hct, POC 29.0(L) 41.4 - 51.6 % [facility] Total Hb, POC 9.8(L) 13.8 - 17.2 g/dL [facility] Blood 01/20/2024 3:09 PM SALES ORDER CLERK 01/20/2024 3:09 PM SALES ORDER CLERK Larry Travis MD LAB POCT ORDERABLES - DEVICE Final Result Performing Organization Address [facility] Co de Phone Number [facility] [place] [address] * POCT glucose (01/20/2024 2:41 PM SALES ORDER CLERK) [facility] Glucose, POC 108 70 - 199 mg/dL Blood 01/20/2024 2:41 PM SALES ORDER CLERK 01/20/2024 2:41 PM SALES ORDER CLERK Larry Travis MD LAB POCT ORDERABLES - DEVICE Final Result Performing Organization Address [facility] Co de Phone Number [facility] [place] [address] * Central Venous Line (01/20/2024 2:37 PM SALES ORDER CLERK) Narrative Elizabeth Castellano MD - 01/20/2024 2:37 PM SALES ORDER CLERK Elizabeth Castellano MD 01/20/2024 2:38 PM Central [...] Re sult * Airway (01/20/2024 1:37 PM SALES ORDER CLERK) Narrative Elizabeth Castellano MD - 01/20/2024 1:37 PM SALES ORDER CLERK Elizabeth Castellano MD 01/20/2024 1:37 PM Airway [...] attempts: 1 Planned trial extubation: yes us Roscoe Sandhu MD ANESTHESIA ORDERABLES Final Re sult * POCT glucose (01/20/2024 11:12 AM SALES ORDER CLERK) Glucose, POC 132 70 - 199 mg/dL Blood 01/20/2024 11:1 2 AM SALES ORDER CLERK 01/20/2024 11:12 AM SALES ORDER CLERK us Larry Travis MD LAB POCT ORDERABLES - DEVICE Final Result [facility] [place] [address] * HLA Donor Specific Antibody Report (01/20/2024 7:31 AM SALES ORDER CLERK) us Provider Scanning LAB BLOOD ORDERABLES Final Res ult * (ABNORMAL) eGFR (01/20/2024 12:08 AM SALES ORDER CLERK) eGFR 6(L) >=60 mL/min/1. 73 m2 Comment: [...] reviewed 2020. Blood 01/20/2024 12:0 8 AM SALES ORDER CLERK 01/20/2024 12:43 AM SALES ORDER CLERK Larry Travis MD LAB BLOOD ORDERABLE S Final Result [facility] [place] [address] * (ABNORMAL) Basic metabolic panel (01/20/2024 12:08 AM SALES ORDER CLERK) Pathologist [facility] [place] Sodium 140 135 - 145 mmol/L Potassium, pl 4.8 3.3 - 4.9 mmol/L [facility] Chloride 95(L) 97 - 110 mmol/L [facility] CO2 30 22 - 32 mmol/L [facility] Anion gap 15 2 - 15 mmol/L [facility] BUN 55(H) 6 - 25 mg/dL [facility] Creatinine 9.05(H) 0.80 - 1.30 mg/dL [facility] Glucose 129 70 - 199 mg/dL [facility] Comment: Interpretive Data Fasting glucose >/= 126 [...] 2022. Calcium 9.7 8.5 - 10.3 mg/dL [facility] Blood 01/20/2024 12:0 8 AM SALES ORDER CLERK 01/20/2024 12:43 AM SALES ORDER CLERK Larry Travis MD LAB BLOOD ORDERABLE S Final Result Performing Organization Address City/[facility]/ZIP Co de Phone Number [facility] [place] [address] * XR Ankle Right 3 or More Views (01/19/2024 12:37 PM SALES ORDER CLERK) Anatomical Region Laterality Modality Lower Extremities, Ankle Right Compute d Radiography 01/19/2024 3:28 PM SALES ORDER CLERK Impressions 01/19/2024 4:08 PM SALES ORDER CLERK 1. Right leg subcutaneous edema with chronic venous stasis and medial ankle ulcer but no radiographic evidence of osteomyelitis. Dictated by: Liliane Ceja MD, MPH The radiology attending physician has personally reviewed this study, and had reviewed and/or edited this written report and agrees with it. Electronically signed by: Roscoe Tavarez M.D. Narrative 01/19/2024 4:08 PM SALES ORDER CLERK EXAMINATION: XR TIBIA FIBULA RIGHT2 VIEWS, XR [...] Fibula Right 2 Views (01/19/2024 12:37 PM SALES ORDER CLERK) Anatomical Region Laterality Modality Lower Extremities, Lower Leg Right Com puted Radiography 01/19/2024 3:28 PM SALES ORDER CLERK Impressions 01/19/2024 4:08 PM SALES ORDER CLERK 1. Right leg subcutaneous edema with chronic venous stasis and medial ankle ulcer but no radiographic evidence of osteomyelitis. Dictated by: Liliane Ceja MD, MPH The radiology attending physician has personally reviewed this study, and had reviewed and/or edited this written report and agrees with it. Electronically signed by: Roscoe Tavarez M.D. Narrative 01/19/2024 4:08 PM SALES ORDER CLERK EXAMINATION: XR TIBIA FIBULA RIGHT2 VIEWS, XR [...] signed by: Roscoe Tavarez M.D. Rosalie Velásquez NP IMG XR PROCEDURES Final Res ult * Urine culture Urine, clean voided (01/19/2024 8:50 AM SALES ORDER CLERK) Report Final Report: Less than 100,000 colonies/mL (clinically insignificant growth based on current clinical standards) Organism (CLINICALLY INSIGNIFICANT GROWTH [facility] Urine, clean voided 01/19/2024 8:50 AM SALES ORDER CLERK 01/19/2024 9:48 AM SALES ORDER CLERK Narrative [facility] - 01/20/2024 4:21 PM SALES ORDER CLERK Indications for Culture:->Other (specify) Other Indication:->pre-op Testing performed by [facility] ([phone]) Rosalie Velásquez NP LAB MICROBIOLOGY - GENERAL ORDERABLES Final Result Performing Organization Address [facility] Co de Phone Number [facility] [place] [address] * Prepare RBC: 2 Units (01/19/2024 6:31 AM SALES ORDER CLERK) Product code [id number] Unit Number [id number] [facility] Product Blood Type ONEG [facility] Dispense Status PRESUMED TRANSFUSED CERVINCENZO BALLARD Product code [id number] [facility] Unit Number [id number] [facility] Product Blood Type ONEG [facility] Dispense Status PRESUMED TRANSFUSED [facility] Blood 01/19/2024 6:31 AM SALES ORDER CLERK 01/19/2024 6:30 AM SALES ORDER CLERK Narrative [facility] - 01/23/2024 12:55 AM SALES ORDER CLERK Specify Procedure:->Kidney Transplant Are special requirements needed? (All products are leukoreduced and CMV- safe)- >No Date required:-[id number] LRRBC # of [id number] Reasons:-Hold for procedure (specify procedure)} us Larry Travis MD BLOOD BANK PRODUCT ORDERABLES Final Result Performing Organization Address [facility] de Phone Number [facility] [place] [address] * HLA Crossmatch Report (01/18/2024 11:43 PM SALES ORDER CLERK) us Rosalie Velásquez NP LAB BLOOD ORDERABLES Final Result * HLA Crossmatch, ALLO (01/18/2024 11:43 PM SALES ORDER CLERK) Blood 01/18/2024 11:4 3 PM SALES ORDER CLERK 01/20/2024 9:03 AM SALES ORDER CLERK Narrative [facility] - 01/20/2024 9:03 AM SALES ORDER CLERK us Rosalie Velásquez NP LAB BLOOD ORDERABLES Final Result Performing Organization Address City/[facility]/ZIP Co de Phone Number [facility] * HLA Antibody Screen by PRA or SAB per Schedule (Class I and Class II) (01/18/2024 11:43 PM SALES ORDER CLERK) Blood 01/18/2024 11:4 3 PM SALES ORDER CLERK Narrative [facility] - SALES ORDER CLERK Sample received in lab. Single Antigen Antibody Screen ordered. Rosalie Velásquez NP LAB BLOOD ORDERABLES Final Result [facility] * HLA Antibody Screen - SAB (Class I and Class II) (01/18/2024 11:43 PM SALES ORDER CLERK) Class I Treatment EDTA [facility] Class I Dilution 1:1 [facility] Class I Tested Date 01/19/2024 [facility] Class I Result Negative [facility] Class I CPRA 0 [facility] Class II Treatment EDTA [facility] Class II Dilution 1:1 [facility] Class II Tested Date 01/19/2024 [facility] Class II Result Negative [facility] Class II CPRA 0 [facility] Class II Low Risk DR53; DQ2 [facility] 01/18/2024 11:4 3 PM SALES ORDER CLERK 01/20/2024 7:24 AM SALES ORDER CLERK Narrative [facility] - 01/20/2024 7:24 AM SALES ORDER CLERK Single-antigen HLA antibody screen is performed on serum samples using a method developed and validated by the [facility] HLA laboratory based on an FDA-approved IVD kit (LABScreen Single-Antigen, [employer], [place], [place]). All patient serum samples are pretreated with EDTA before the screen to prevent complement interference. Additional serum treatments, such as adsorption and DTT treatment, may be performed as indicated. Interpretive comments: Low risk: MFI [id number]. Moderate risk: MFI 2000-5331. Increased risk: MFI >/= 5000. The presence [...] antigens to avoid. Testing performed at the [facility], [address] [place] [address], 5th floor, [place], [address]. CLIA # [id number]. Magalis Bean, Ph.D., Bond Broker, [facility] José Miguel Yun M.D., Ph.D., Corsage Maker, [facility] Nessa Marley, Ph.D., CLIA Corsage Maker, [facility] Current methodology and interpretive comments last revised on 03/27/2022. us Rosalie Velásquez WOOD FENCE ERECTOR LAB BLOOD ORDERABLES Final Result [facility] * X-ray chest 1 view (01/18/2024 11:41 PM SALES ORDER CLERK) Anatomical Region Laterality Modality Body, Chest N/A Digital Radiogra phy 01/19/2024 4:05 AM SALES ORDER CLERK Impressions 01/19/2024 4:05 AM SALES ORDER CLERK Comparison is made to prior study of [...] Evan Boothe M.D. Narrative 01/19/2024 4:05 AM SALES ORDER CLERK EXAMINATION: 1 view chest radiograph Procedure Note [...] for HLA Antibody Screen (01/18/2024 10:50 PM SALES ORDER CLERK) HLA Antibody Screen by PRA Received Blood 01/18/2024 10:5 0 PM SALES ORDER CLERK 01/19/2024 9:57 AM SALES ORDER CLERK us Rosalie Velásquez NP LAB BLOOD ORDERABLES Final Result LINDA [facility] [place] [address] * (ABNORMAL) eGFR (01/18/2024 10:50 PM SALES ORDER CLERK) eGFR 9(L) >=60 mL/min/1. 73 m2 Comment: [...] reviewed 2020. Blood 01/18/2024 10:5 0 PM SALES ORDER CLERK 01/18/2024 11:14 PM SALES ORDER CLERK Rosalie Velásquez WOOD FENCE ERECTOR LAB BLOOD ORDERABLES Final Result [facility] [place] [address] * Differential, auto (01/18/2024 10:50 PM SALES ORDER CLERK) Neutrophil abs 5.4 1.5 - 6.5 K/cumm Imm gran abs 0.0 0.0 - 0.1 K/cumm [facility] Lymphocyte abs 1.2 0.8 - 3.3 K/cumm [facility] Monocyte abs 0.6 0.2 - 0.8 K/cumm [facility] Eosinophil abs 0.2 0.0 - 0.5 K/cumm [facility] Basophil abs 0.0 0.0 - 0.1 K/cumm [facility] Neutrophil pct 73.1 % [facility] Comment: Interpretive Data Percent cell count reference ranges are not reported, since discordance with absolute values may lead to misinterpretation of CBC data. Current Interpretive Data was last revised on 2017. Imm gran pct 0.4 % [facility] Comment: Interpretive Data Percent cell count reference ranges are not reported, since discordance with absolute values may lead to misinterpretation of CBC data. Current Interpretive Data was last revised on 2017. Lymphocyte pct 15.7 % [facility] Comment: Interpretive Data Percent cell count reference ranges are not reported, since discordance with absolute values may lead to misinterpretation of CBC data. Current Interpretive Data was last revised on 2017. Monocyte pct 7.4 % [facility] Comment: Interpretive Data Percent cell count reference ranges are not reported, since discordance with absolute values may lead to misinterpretation of CBC data. Current Interpretive Data was last revised on 2017. Eosinophil pct 3.0 % [facility] Comment: Interpretive Data Percent cell count reference ranges are not reported, since discordance with absolute values may lead to misinterpretation of CBC data. Current Interpretive Data was last revised on 2017. Basophil pct 0.4 % [facility] Comment: Interpretive Data Percent cell count reference ranges are not reported, since discordance with absolute values may lead to misinterpretation of CBC data. Current Interpretive Data was last revised on 2017. Blood 01/18/2024 10:5 0 PM SALES ORDER CLERK 01/18/2024 11:15 PM SALES ORDER CLERK Rosalie Velásquez WOOD FENCE ERECTOR LAB BLOOD ORDERABLES Final Result Performing Organization Address [facility]/ZIP Co de Phone Number [facility] [place] [address] * (ABNORMAL) Iron profile w/ IBC (01/18/2024 10:50 PM SALES ORDER CLERK) [facility] Iron 52 50 - 150 mcg/dL TIBC 162(L) 250 - 400 mcg/dL [facility] Transferrin saturation 32 20 - 50 % [facility] Blood 01/18/2024 10:5 0 PM SALES ORDER CLERK 01/18/2024 11:14 PM SALES ORDER CLERK Rosalie Velásquez WOOD FENCE ERECTOR LAB BLOOD ORDERABLES Final Result Performing Organization Address City/[facility]/ZIP Co de Phone Number [facility] [place] [address] * HIV 1/2 Antibody plus p24 Antigen Blood (01/18/2024 10:50 PM SALES ORDER CLERK) [facility] HIV 1/2 ab + p24 ag Nonreactive Nonreactive Comment:Nonreactive for HIV- 1 antigen and HIV-1/HIV-2 antibodies. No laboratory evidence of HIV infection. If acute HIV infection is suspected, consider testing for HIV-1 RNA. Current interpretive data was last revised on 21. Blood 01/18/2024 10:5 0 PM SALES ORDER CLERK 01/18/2024 11:15 PM SALES ORDER CLERK Rosalie Velásquez NP LAB MICROBIOLOGY - GENERAL ORDERABLES Final Result Performing Organization Address City/[facility]/ZIP Co de Phone Number [facility] [place] [address] * (ABNORMAL) CBC with auto differential (01/18/2024 10:50 PM SALES ORDER CLERK) [facility] WBC 7.4 3.8 - 9.9 K/cumm Hgb 10.1(L) 13.0 - 17.5 g/dL [facility] Hct 30.4(L) 38.9 - 50.3 % [facility] Plt 155 150 - 400 K/cumm [facility] MPV 9.5 9.1 - 12.3 fL [facility] RBC 3.05(L) 4.30 - 5.80 M/cumm [facility] MCV 99.7(H) 81.3 - 96.4 fL [facility] MCH 33.1 27.1 - 33.3 pg [facility] MCHC 33.2 32.3 - 35.7 g/dL [facility] RDW CV 14.4 11.1 - 14.9 % [facility] RDW SD 51.3(H) 35.7 - 48.1 fL [facility] NRBC abs 0.00 0.00 - 0.01 K/cumm [facility] Blood 01/18/2024 10:5 0 PM SALES ORDER CLERK 01/18/2024 11:15 PM SALES ORDER CLERK Rosalie Velásquez NP LAB BLOOD ORDERABLES Final Result Performing Organization Address City/[facility]/ZIP Co de Phone Number [facility] [place] [address] * Hepatitis C antibody Blood (01/18/2024 10:50 PM SALES ORDER CLERK) [facility] Hep C Ab Nonreactive Nonreactive Comment:Antibodies to HCV no t detected. Does NOT exclude the possibility of recent exposure to HCV. Current interpretive data was last revised on 21 Blood 01/18/2024 10:5 0 PM SALES ORDER CLERK 01/18/2024 11:14 PM SALES ORDER CLERK Rosalie Velásquez NP LAB MICROBIOLOGY - GENERAL ORDERABLES Final Result Performing Organization Address [facility] Co de Phone Number [facility] [place] [address] * Hepatitis B core antibody, total Blood (01/18/2024 10:50 PM SALES ORDER CLERK) [facility] Hep B core IgG/IgM Nonreactive Nonreactive Blood 01/18/2024 10:5 0 PM SALES ORDER CLERK 01/18/2024 11:14 PM SALES ORDER CLERK Rosalie Velásquez NP LAB MICROBIOLOGY - GENERAL ORDERABLES Final Result Performing Organization Address [facility] de Phone Number [facility] [place] [address] * Hepatitis C (HCV) RNA PCR, quantitative Blood (01/18/2024 10:50 PM SALES ORDER CLERK) [facility] HCV RNA result Not Detected [facility] Comment: The quantifiable range of this assay is 15 IU/mL to 100,000,000 IU/mL (1.18 log IU/mL to 8.00 log IU/mL). Testing was performed by the WALDEMAR 6800 HCV Test ([employer] Testing performed at [facility] Current Interpretive Data was last revised on 2020 Blood 01/18/2024 10:5 0 PM SALES ORDER CLERK 01/18/2024 11:50 PM SALES ORDER CLERK Rosalie Velásquez NP LAB MICROBIOLOGY - GENERAL ORDERABLES Final Result Performing Organization Address [facility] Co de Phone Number [facility] [place] [address] [facility] * Hepatitis B surface antibody (immune status) Blood (01/18/2024 10:50 PM SALES ORDER CLERK) Pathologist [facility] HBsAb (immune status) Reactive Comment:This result is consi stent with immunity to Hepatitis B Virus when used in the setting of routine screening. Current interpretive data was last revised on 21 HBsAb (immune status) index 1,828.0 mIUnits/m L [facility] Blood 01/18/2024 10:5 0 PM SALES ORDER CLERK 01/18/2024 11:14 PM SALES ORDER CLERK Rosalie Velásquez NP LAB MICROBIOLOGY - GENERAL ORDERABLES Final Result Performing Organization Address City/[facility]/[place] [address] * Hepatitis B Surface Antigen Blood (01/18/2024 10:50 PM SALES ORDER CLERK) [facility] HepBsAg Nonreactive Nonreactive Blood 01/18/2024 10:5 0 PM SALES ORDER CLERK 01/18/2024 11:14 PM SALES ORDER CLERK Rosalie Velásquez NP LAB MICROBIOLOGY - GENERAL ORDERABLES Final Result Performing Organization Address City/[facility]/ZIP Co de Phone Number [facility] [place] [address] * aPTT (01/18/2024 10:50 PM SALES ORDER CLERK) [facility] aPTT 31 28 - 38 sec Comment: Interpretive Data Heparin therapeutic range: 66.0 - 100.0 seconds. Range based on correlation with therapeutic heparin activity range of 0.3 - 0.7 Units/mL. Current interpretive data was last revised on 2022. Blood 01/18/2024 10:5 0 PM SALES ORDER CLERK 01/18/2024 11:17 PM SALES ORDER CLERK Rosalie Velásquez WOOD FENCE ERECTOR LAB BLOOD ORDERABLES Final Result Performing Organization Address City/[facility]/ZIP Co de Phone Number [facility] [place] [address] * Protime-INR (01/18/2024 10:50 PM SALES ORDER CLERK) PT 11.2 9.7 - 13.0 sec INR 1.04 0.90 - 1.20 [facility] Comment: Interpretive data Oral anticoagulant therapeutic ranges: Venous thromboembolism prophylaxis or treatment: 2.0-3.0 CARDIOLOGY Standard range: 2.0-3.0 High-intensity range: 2.5-3.5 Refer to indication-specific guidelines for appropriate target ranges for prosthetic heart valve replacement. Current interpretive data was last revised on 2019. Blood 01/18/2024 10:5 0 PM SALES ORDER CLERK 01/18/2024 11:17 PM SALES ORDER CLERK Rosalie Velásquez WOOD FENCE ERECTOR LAB BLOOD ORDERABLES Final Result Performing Organization Address [facility] [place] [address] * Type and screen (01/18/2024 10:50 PM SALES ORDER CLERK) ABO Rh O Negative [place], indirect Negative [facility] Blood 01/18/2024 10:5 0 PM SALES ORDER CLERK 01/18/2024 11:13 PM SALES ORDER CLERK Narrative [facility] - 01/19/2024 12:08 AM SALES ORDER CLERK Has the patient had Daratumumab or Isatuximab in the past 6 months?->Unknown Rosalie Velásquez WOOD FENCE ERECTOR LAB BLOOD BANK TEST ORDERAB LES Final Result Performing Organization Address [facility]/ZIP Co de Phone Number [facility] [place] [address] * Uric acid (01/18/2024 10:50 PM SALES ORDER CLERK) Pathologist [facility] Uric acid 4.2 3.0 - 8.0 mg/dL Blood 01/18/2024 10:5 0 PM SALES ORDER CLERK 01/18/2024 11:14 PM SALES ORDER CLERK Rosaliecarleen Hargroveir Molos WOOD FENCE ERECTOR LAB BLOOD ORDERABLES Final Result Performing Organization Address [facility] Co de Phone Number [facility] [place] [address] * (ABNORMAL) Phosphorus (01/18/2024 10:50 PM SALES ORDER CLERK) Pathologist [facility] Phosphorus, pl 6.5(H) 2.3 - 4.5 mg/dL Blood 01/18/2024 10:5 0 PM SALES ORDER CLERK 01/18/2024 11:14 PM SALES ORDER CLERK Rosalie Hart Load [employer] WOOD FENCE ERECTOR LAB BLOOD ORDERABLES Final Result Performing Organization Address [facility] de Phone Number [facility] [place] [address] * (ABNORMAL) Hemoglobin A1c (01/18/2024 10:50 PM SALES ORDER CLERK) [facility] Hgb A1C 6.3(H) 4.0 - 5.6 % Estimated Average Glucose 134 mg/dL [facility] Comment: The ADA recommends reporting an estimated Average Glucose (eAG) with all Hemoglobin A1c results using the equation derived from a study of 507 normal and diabetic adults. Minority populations were underrepresented and children were not included. (Diabetes Care 2020; 43(S1): S66-S76). The eAG is not equivalent to a fasting glucose. Blood 01/18/2024 10:5 0 PM SALES ORDER CLERK 01/18/2024 11:15 PM SALES ORDER CLERK Rosalie Tanner Molos WOOD FENCE ERECTOR LAB BLOOD ORDERABLES Final Result Performing Organization Address [facility] Co de Phone Number [facility] [place] [address] * (ABNORMAL) Ferritin (01/18/2024 10:50 PM SALES ORDER CLERK) Ferritin 1,237(H) 30 - 400 ng/mL Blood 01/18/2024 10:5 0 PM SALES ORDER CLERK 01/18/2024 11:14 PM SALES ORDER CLERK us Rosalie Velásquez WOOD FENCE ERECTOR LAB BLOOD ORDERABLES Final Result [facility] [place] [address] * (ABNORMAL) Lipid panel (01/18/2024 10:50 PM SALES ORDER CLERK) Cholesterol 203(H) 30 - 199 mg/dL Comment: [...] revised on 2017. Triglycerides 208(H) <=149 mg/dL [facility] Comment: Interpretive Data Ages < or = [...] revised on 2017. HDL 38(L) >=40 mg/dL [facility] Comment: Interpretive Data Ages < or [...] on 2017. LDL, calculated 128 <=129 mg/dL [facility] Comment: Interpretive Data Ages < or = 19 years Acceptable: <110 mg/dL Borderline high: 110-129 mg/dL High: >or= 130 mg/dL Ages > or = 20 years Optimal: <100 mg/dL Near optimal: 100-129 mg/dL Borderline high: 130-159 mg/dL High: >160 mg/dL Calculated using the Lyle LDL-C estimating equation. This equation was implemented on 2023. Prior to this date LDL-C was estimated using the Friedewald equation. Literature References: 1. Expert Panel on Integrated Guidelines for Cardiovascular Health and Risk Reduction in Children and Adolescents. Pediatrics 2011;128:S213 2. NCEP Expert Panel. Circulation 2004;110:227 3. Lyle Lynne et al. SHANEKA Cardiol. 2019June 30;5(5):540-548. doi: 10.1001/jamacardio.2020.0013 Current Interpretive Data was last revised on 2023. Non-HDL Cholesterol 165 mg/dL [facility] Comment: Interpretive Data Ages < or [...] last revised on 2017. Chol/HDL ratio 5 [facility] Blood 01/18/2024 10:5 0 PM SALES ORDER CLERK 01/18/2024 11:14 PM SALES ORDER CLERK us Rosalie Velásquez NP LAB BLOOD ORDERABLES Final Result [facility] [place] [address] * (ABNORMAL) Comprehensive metabolic panel (01/18/2024 10:50 PM SALES ORDER CLERK) Sodium 142 135 - 145 mmol/L Potassium, pl 4.4 3.3 - 4.9 mmol/L [facility] Chloride 96(L) 97 - 110 mmol/L [facility] CO2 31 22 - 32 mmol/L [facility] Anion gap 15 2 - 15 mmol/L [facility] BUN 40(H) 6 - 25 mg/dL [facility] Creatinine 6.70(H) 0.80 - 1.30 mg/dL [facility] Glucose 162 70 - 199 mg/dL [facility] Comment: Interpretive Data Fasting glucose >/= 126 [...] 2022. Calcium 10.4(H) 8.5 - 10.3 mg/dL [facility] Bilirubin, total 0.3 0.1 - 1.2 mg/dL [facility] Protein, pl 7.1 6.5 - 8.5 g/dL [facility] Albumin 4.0 3.5 - 5.0 g/dL [facility] Alk phos 187(H) 40 - 130 Units/L [facility] ALT 18 7 - 55 Units/L [facility] AST 23 10 - 50 Units/L [facility] Blood 01/18/2024 10:5 0 PM SALES ORDER CLERK 01/18/2024 11:14 PM SALES ORDER CLERK Rosalie Velásquez WOOD FENCE ERECTOR LAB BLOOD ORDERABLES Final Result [facility] [place] [address] * CT Chest WO Contrast F/U Lung Screen Protocol (01/13/2024 3:25 PM SALES ORDER CLERK) Anatomical Region Laterality Modality Chest N/A Computed Tomogra phy 01/13/2024 5:28 PM SALES ORDER CLERK Impressions 01/13/2024 5:28 PM SALES ORDER CLERK 1. LungRADS Category 2 (benign) S. Recommend Low dose Screening CT of chest in 12 months. 2. 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 Electronically signed by: Evan Boothe M.D. Narrative 01/13/2024 5:28 PM SALES ORDER CLERK Examination: Low dose chest CT without intravenous [...] 7:43 AM CDT 09/17/2023 8:59 AM CDT us Henny Vázquez MD LAB BLOOD ORDERABL ES Final Result [facility] [place] [address] from Last 3 Months or Most Recently Relevant to Health Maintenance Insurance [facility] CHOICE PLUS MEDICARE [employer] SENIOR SUPPLEMENT MEDICARE COMMERCIAL GENERIC MEDICARE [place] MEDICARE SUPPLEMENT MEDICARE [place] MEDICARE SUPPLEMENT MEDICARE Advance Directives For more information, please contact: [phone] * Full Code (Latest Code Status on [...] 10:20 PM 01/20/2024 7:47 PM Care Teams High Speed Printer Operator Relationship Specialty Start Date End Date Marino Quick DO [address] [place] [address] PCP - General Family Medicine 09/29/23 Aidan Yadav DO [address] [place] [address] Test Engineering Manager Cardiology 06/05/20 [place] [address] [place] [address] Urologist Urology 11/05/21 [place] [address] [place] [address] Consulting Physician Interventional Cardiology 01/09/22 Cam Harris MD [address] [place], [place] [id number] Consulting Physician Nephrology 01/07/23 Ayo Abbott MD [address] [address] Stud Dairy Cattle Farmer Dermatology 10/09/23 Kirk Chaparro MD [address] [address] Surgeon Vascular Surgery 10/13/23 Shama Antunez RN [address] [address] Printing And Stamping Supervisor 01/20/24
--- OUTSIDE RECORDS SUMMARY | 2024-04-19 14:01 | XMS_ITS | Clinical Summary ---
Author Organization [facility] Address [address] [place] [address] Care Team Providers Care Anesthesiologist Name Role Phone Jeanette Gonsalez MD Unavailable [phone] Marino Quick DO Primary Care Provider [phone] Allergies No known active allergies Medications amlodipine 5 MG tablet Take 1 tablet by mouth. 3 9 Active aspirin EC 81 MG tablet Take 81 mg by mouth daily. 8 Active bumetanide 2 MG tablet Take 4 mg by mouth 2 (two) times daily. 9 Active carvedilol 25 MG tablet 2 tablets. 3 Active Cholecalciferol 4000 units Cap 1 CAPSULES DAILY at night 7 Active hydrALAZINE 50 MG tablet Take 50 mg by mouth 3 (three) times daily. Active hydrocodone-acet aminophen 10-325 MG tablet Take 1 tablet by mouth daily as needed. 3 Active insulin lispro protamine-insuli n lispro (HUMALOG MIX 50/50) (50-50) 100 UNIT/ML Suspension injection Active isosorbide mononitrate ER 30 MG 24 hr tablet Take 1 tablet by mouth daily. 5 Active levothyroxine 100 MCG tablet Take 100 mcg by mouth daily. Active losartan 100 MG tablet Take 100 mg by mouth daily. 7 Active metolazone 2.5 MG tablet Take 2.5 mg by mouth daily. 7 Active multivitamin tablet Take 1 tablet by mouth daily. Active sodium bicarbonate 650 MG tablet Take 1,300 mg by mouth 3 (three) times daily. 8 Active triamcinolone 0.1 % cream Apply 1 Application topically 2 (two) times daily. Active atorvastatin 40 MG tablet TAKE 1 TABLET AT BEDTIME. 7 Active Active Problems Problem Noted Date Diagnosed Date Lower extremity edema 07/07/2018 Hyperkalemia 03/15/2018 ESRD (end stage renal disease) ([facility]) 01/25/2018 Overview (07/07/2018): Overview: Added automatically from request for surgery [id number] Anemia in chronic kidney disease 09/28/2017 Metabolic acidosis 09/28/2017 LOLLY (renal osteodystrophy) 09/28/2017 Stage 5 chronic kidney disease ([facility]) 09/28/2017 Overview (07/07/2018): Overview: Added automatically from request for surgery [id number] Atherosclerosis of coronary artery 03/17/2013 Essential hypertension 03/17/2013 Nephrotic syndrome 03/17/2013 Type 2 diabetes mellitus ([facility]) 03/17 Social History Tobacco Use Types Packs/Day Years Used Date Smoking Tobacco: Smoker, Current Status Unknown Sex and Gender Information Value Date Recorded Sex Assigned at Not on file Legal Sex Male 10:56 PM CDT Gender Identity Not on file Sexual Orientation Not on file Last Filed Vital Signs Vital Sign Reading Time Taken Comments Blood Pressure 138/61 07/07/2018 2:42 PM CDT Pulse 67 07/07/2018 2:42 PM CDT Temperature 36.4 C (97.6 F) 07/07/2018 2:42 PM CDT Respiratory Rate 16 07/12/2014 3:23 PM CDT R egular Oxygen Saturation - - Inhaled Oxygen Concentration - - Weight 145.9 kg (321 lb 10.4 oz) 07/07/2018 2:42 PM CDT Height 190.5 cm (6' 3 ) 07/07/2018 2:42 PM CDT Body Mass Index 40.2 07/07/2018 2:42 PM CDT Plan of Treatment Health Maintenance Due Date Last Done Comments Colorectal Cancer Screening Colonoscopy (10 Years) 1958 Diabetes: Retinopathy Eye Exam 1976 Hepatitis C 1976 DTaP, Tdap and Td Vaccines ( 1 - Tdap) 1977 Zoster Vaccines (1 of 2) 2008 Pneumococcal Vaccine: 65+ Years (2 of 2 - PCV) 11/08/2013 11/08/2012 Pneumococcal Vaccine: Pediatrics (0 to 5 Years) and At-Risk Patients (6 to 64 Years) (2 of 2 - PCV) 11/08/2013 11/08/2012 RSV Immunization or 60+ Years (1 - Risk 60-74 years 1-dose series) 2018 ASCVD LDL 11/30/2019 11/29/2018 Hemoglobin A1C 01/12/2021 07/12/2020, 11/29/2018 Lipid Panel 08/08/2022 08/08/2021, 11/29/2018, 04/12/2012 COVID-19 Vaccine (3 - 2023-2 5 season) 2023 05/24/2020, 04/30/2020 Influenza Adult (#1) 2023 12/22/2016, 11/08/2012 Meningococcal B Vaccine Aged Out No l onger eligible based on patient's age to complete this topic Meningococcal Vaccine Aged Out No ada sayda eligible based on patient's age to complete this topic RSV Immunizations Under 20 Months Aged Out No longer eligible b ased on patient's age to complete this topic Procedures Procedure Name Priority Date/Time Associated Diagnosis Comments LIPID PANEL Routine 11/29/2018 3:20 PM CDT Essential hypertension Other hyperlipidemia Type II diabetes mellitus ([facility]) HEMOGLOBIN, GLYCOSYLATED Routine 11/29/2018 3:20 PM CDT Essential hypertension Other hyperlipidemia Type II diabetes mellitus ([facility]) from Last 3 Months or Most Recently Relevant to Health Maintenance Results * (ABNORMAL) HEMOGLOBIN, GLYCOSYLATED (11/29/2018 3:20 PM CDT) HGB A1C 5.9(H) <5.7 % 11/29/2018 4:06 PM CDT [facility] Comment: 5.7 TO 6.4% INCREASED RISK OF DIABETES > OR = 6.5% CONSISTENT WITH DIABETES PER ADA GUIDELINES ESTIMATED AVG GLUCOSE 123 70 - 140 MG/DL 11/29/2018 4:06 PM CDT [facility] 11/29/2018 3:20 PM CDT Nicholas David MD LABORATORY Final Result [facility] [address] [place] [address], * (ABNORMAL) LIPID PANEL (11/29/2018 3:20 PM CDT) CHOLESTEROL 216(H) <200 MG/DL 11/29/2018 5:35 PM CDT [facility] Comment: THE NATIONAL LIPID ASSOCIATION AND THE NATIONAL CHOLESTEROL EDUCATION PROGRAM (NCEP) HAVE SET THE FOLLOWING GUIDELINES FOR TOTAL CHOLESTEROL IN ADULTS AGES 18 AND UP. DESIRABLE: <200 BORDERLINE HIGH: 200-239 HIGH: > OR = 240 TRIGLYCERIDES 203(H) <150 MG/DL 11/29/2018 5:35 PM CDT [facility] Comment: THE NATIONAL LIPID ASSOCIATION AND THE NATIONAL CHOLESTEROL EDUCATION PROGAM (NCEP) HAVE SET THE FOLLOWING GUIDELINES FOR TRIGLYCERIDES IN ADULTS AGES 18 AND UP. NORMAL: <150 BORDERLINE HIGH: 150 TO 199 HIGH: 200 TO 499 VERY HIGH: >499 HDL 40 >39 MG/DL 11/29/2018 5:35 PM CDT [facility] Comment: THE NATIONAL LIPID ASSOCIATION AND THE NATIONAL CHOLESTEROL EDUCATION PROGAM (NCEP) HAVE SET THE FOLLOWING GUIDELINES FOR HDL CHOLESTEROL IN ADULTS AGES 18 AND UP. MALES: >39 FEMALES: >49 LDL (CALCULATED) 135(H) <100 MG/DL 11/30/19 19 5:35 PM CDT [facility] Comment: THE NATIONAL LIPID ASSOCIATION AND THE NATIONAL CHOLESTEROL EDUCATION PROGAM (NCEP) HAVE SET THE FOLLOWING GUIDELINES FOR LDL CHOLESTEROL IN ADULTS AGES 18 AND UP. DESIRABLE: <100 ABOVE DESIRABLE: 100 TO 129 BORDERLINE HIGH: 130 TO 159 HIGH: 160 TO 189 VERY HIGH: >189 VLDL CALCULATION 41 MG/DL 11/30/19 19 5:35 PM CDT [facility] Comment:REFERENCE RANGE NOT ESTABLISHED CHOL/HDL RATIO 5.4 11/29/2018 5:35 PM CDT [facility] Comment:REFERENCE RANGE NOT ESTABLISHED LDL/HDL 3.4 11/29/2018 5:35 PM CDT [facility] Comment:REFERENCE RANGE NOT ESTABLISHED NON HDL CHOLESTEROL 176 MG/DL 11/29/2018 5:35 PM CDT [facility] Comment:REFERENCE RANGE NOT ESTABLISHED 11/29/2018 3:20 PM CDT Nicholas David MD LABORATORY Final Result [facility] [address] [place] [address], from Last 3 Months or Most Recently Relevant to Health Maintenance Insurance [facility] MEDICARE [facility] GENERIC - COMMERCIAL on file GENERIC - COMMERCIAL MEDICARE Care Teams Anesthesiologist Relationship Specialty Start Date End Date Marino Quick DO [address] [place] [address] PCP - General FAMILY PRACTICE 10/29/21 Jeanette Gonsalez MD [address] [place] [address] Consulting Physician INTERNAL MEDICINE 07/07/18
--- OUTSIDE RECORDS SUMMARY | 2024-04-19 14:01 | XMS_ITS | Encounter Summary ---
Author Organization [facility] Address [address] [place] [address] Care Team Providers Care Director Loan Name Role Phone Aidan Yadva Unavailable [phone] Jovanna BUTLER MD, Susi Unavailable Frank Martin MD Unavailable [phone] Cam Harris MD Unavailable [phone] Marino Quick DO Primary Care Provider Ayo Abbott MD Unavailable Kirk Chaparro MD Unavailable [phone] Shama Antunez RN Unavailable [phone] Encounter Details Date Type Department Care Team (Late st Contact Info) Description 04/19/2024 Telephone [facility] Transplant Kidney [address] [facility] [phone] [place] [address] Carolina Ramires Social History Tobacco Use Types Packs/Day Years Used Date Smoking Tobacco: Former Cigarettes 1.5 44.9 1 974 - 01/29/2018 Smokeless Tobacco: Never Comments:1 pack per week Alcohol Use Standard [...] materials from doctor or pharmacy Never 03/08/2024 [facility] Utilities Answer Date Recorded In the past 12 months has e electric, gas, oil, or water company threatened to shut off services in your [...] often do you attend chur ch or episcopal services? Never 02/22/2024 Do you belong to any clubs o r organizations such as tenriism groups, unions, fraternal or athletic groups, or [...] place to sleep or slept in a prison (including now)? No 03/25/2023 Housing Stability Vital Sign Answer Ramesh e Recorded In the last 12 months, was t here a time when you were not able to pay the mortgage or rent on time? No 02/22/2024 In the past 12 months, how m any times have you moved where you were living? 0 02/22/2024 At [facility] time in the [facility], were you homeless or living in a prison (including now)? No 02/22/2024 Personal Safety Answer [...] on file Legal Sex Male 3:24 AM BREAK OFF WORKER Gender Identity Male 11/30/2017 3:03 PM CDT Sexual Orientation Straight 06/05/2020 6: 53 AM CDT documented as of this encounter Miscellaneous Notes * Telephone Encounter - Carolina Ramires - 04/19/2024 9:51 AM CST The pt is currently at [facility], requesting one-time lab orders for weekly blood draw. Orders entered. K OFF WORKER documented in this encounter Plan of Treatment Pending Results Name Type Priority Associated Diagnoses Date /Time Tacrolimus level trough Lab Routine Kidney replaced by transplant Encounter for long-term (current) use of medications 04/19/2024 10:42 AM BREAK OFF WORKER Scheduled Orders Name Type Priority Associated Diagnoses Orde r Schedule Tacrolimus level trough Lab Routine Kidney replaced by transplant Encounter for long-term (current) use of medications Expected: 04/19/2024, Expires: 04/19/2025 documented as of this encounter Results * (ABNORMAL) Renal function panel (04/19/2024 10:42 AM BREAK OFF WORKER) Sodium 138 135 - 145 mmol/L Potassium, pl 4.7 3.3 - 4.9 mmol/L [facility] Chloride 99 97 - 110 mmol/L [facility] CO2 29 22 - 32 mmol/L [facility] Anion gap 10 2 - 15 mmol/L [facility] BUN 38(H) 6 - 25 mg/dL [facility] Creatinine 2.80(H) 0.80 - 1.30 mg/dL [facility] Glucose 125 70 - 199 mg/dL [facility] Comment: Interpretive Data Fasting glucose >/= 126 [...] 2022. Calcium 10.7(H) 8.5 - 10.3 mg/dL [facility] Phosphorus, pl 2.5 2.3 - 4.5 mg/dL [facility] Albumin 3.9 3.5 - 5.0 g/dL [facility] Blood 04/19/2024 10:4 2 AM BREAK OFF WORKER 04/19/2024 11:14 AM BREAK OFF WORKER us Jack Morrison MD LAB BLOOD ORDERABLES Final R esult Performing Organization Address [facility] Co de Phone Number [facility] [place] [address] * (ABNORMAL) CBC with auto differential (04/19/2024 10:42 AM BREAK OFF WORKER) Pathologist [facility] WBC 14.9(H) 3.8 - 9.9 K/cumm Hgb 11.6(L) 13.0 - 17.5 g/dL [facility] Hct 35.5(L) 38.9 - 50.3 % [facility] Plt 281 150 - 400 K/cumm [facility] MPV 10.2 9.1 - 12.3 fL [facility] RBC 3.79(L) 4.30 - 5.80 M/cumm [facility] MCV 93.7 81.3 - 96.4 fL [facility] MCH 30.6 27.1 - 33.3 pg [facility] MCHC 32.7 32.3 - 35.7 g/dL [facility] RDW CV 13.5 11.1 - 14.9 % [facility] RDW SD 45.1 35.7 - 48.1 fL [facility] NRBC abs 0.00 0.00 - 0.01 K/cumm [facility] Blood 04/19/2024 10:4 2 AM BREAK OFF WORKER 04/19/2024 11:14 AM BREAK OFF WORKER us Jack Morrison MD LAB BLOOD ORDERABLES Final R esult [facility] [place] [address] documented in this encounter Visit Diagnoses Diagnosis Kidney replaced by transplant- Primary Encounter for long-term (current) use of medications Encounter for long-term (current) use of other medications documented in this encounter Care Teams Director Loan Relationship Specialty Start Date End Date Buschling, Marino Serra, DO [address] [place] [address] PCP - General Family Medicine 09/29/23 Aidan Yadav DO [address] [facility] [address] [place], [place] [id number] Fruit Preserver Cardiology 06/05/20 [place] [address] [address] [facility] [address] [place] [address] Urologist Urology 11/05/21 [place] [address] [place] [address] Consulting Physician Interventional Cardiology 01/09/22 Cam Harris MD [address] [place] [address] [address] [place] [address] Consulting Physician Nephrology 01/07/23 Ayo Abbott MD [address] [facility] [address], [place] [address] Certified Lactation Educator Dermatology 10/09/23 Kirk Chaparro MD [address] [facility] [address] [place] [address] Surgeon Vascular Surgery 10/13/23 Shama Antunez, SAURAV [address] [facility] [address] [place] [address] Car Retarder Operator 01/20/24 documented as of this encounter
--- OUTSIDE RECORDS SUMMARY | 2024-04-19 14:01 | XMS_ITS | Encounter Summary ---
Author Organization [facility] Address [address] [place] [address] Care Team Providers Care Commission Agent Livestock Name Role Phone Aidan Yadav Unavailable [phone] Jovanna BUTLER MD, Susi Unavailable [phone] Frank Martin MD Unavailable [phone] Cam Harris MD Unavailable [phone] Marino Quick DO Primary Care Provider Ayo Abbott MD Unavailable Kirk Chaparro MD Unavailable [phone] Shama Antunez RN Unavailable [phone] Encounter Details Date Type Department Care Team (Late st Contact Info) Description 03/07/2024 Telephone [facility] Radiology [address] [place] [address] Tiffanie Milton RN Social History Tobacco Use Types Packs/Day Years [...] materials from doctor or pharmacy Never 03/08/2024 [facility] Utilities Answer Date Recorded In the past 12 months has th e electric, gas, oil, or water company [...] often do you attend chur ch or spiritism services? Never 02/22/2024 Do you belong to any clubs o r organizations such as methodist groups, unions, fraternal or athletic groups, or school groups? No 02/22/2024 How often do you attend meet ings of the clubs or organizations you belong to? Never 02/22/2024 Are you , , di vorced, , never , or living with a partner? 02/22/2024 AUDIT-C Answer Date Recorded Q1: How often do you have a drink containing alcohol? Never 01/20/2024 Q2: How many drinks containi ng alcohol do you have on a typical day when you are drinking? Patient does not drink Q3: How often do you have si x or more drinks on one occasion? Never 01/20/2024 Overall Financial Resource Strain (CARDIA) Answe r [...] place to sleep or slept in a correction (including now)? No 03/25/2023 Housing Stability Vital Sign Answer Ramesh e Recorded In the last 12 months, was t here a time when you were not able to pay the mortgage or rent on time? No 02/22/2024 In the past 12 months, how m any times have you moved where you were living? 0 02/22/2024 At any time in the past 12 m [facility], were you homeless or living in a correction (including now)? No 02/22/2024 Personal Safety Answer Date Recorded Have you ever been in or are you currently in a harmful physical or emotional relationship or is someone making you feel afraid or unsafe? Denies 03/08/2024 Education Answer Date Recorded What is the highest level of school you have completed or the highest degree you have received? High school graduate 03/25/2023 Sex and Gender Information Value Date Recorded Sex Assigned at Not on file Legal Sex Male 3:24 AM MACHINE OPERATOR CANE CUTTER Gender Identity Male 11/30/2017 3:03 PM CDT Sexual Orientation Straight 06/05/2020 6: 53 AM CDT documented as of this encounter Plan of Treatment Not on file documented as of this encounter Visit Diagnoses Not on filedocumented in this encounter Additional Health Concerns Infection Onset Date Last Indicated Resolved Time COVID: Suspected 04/06/2024 04/06/2024 04/06/2024 1:16 PM MACHINE OPERATOR CANE CUTTER Rhino/Enterovirus 04/06/2024 04/06/2024 04/13/2024 3:07 AM MACHINE OPERATOR CANE CUTTER documented as of this encounter Care Teams Commission Agent Livestock Relationship Specialty Start Date End Date Marino QuickDO [address] [place] [address] PCP - General Family Medicine 09/29/23 Aidan Yadav DO [address] [facility] [address] [place] [address] Middle School Science Teacher Cardiology 06/05/20 [place] [address] [place] [address] Urologist Urology 11/05/21 [place] [address] [place] [address] Consulting Physician Interventional Cardiology 01/09/22 Cam Harris MD [address] [facility] [address] [place] [id number] Consulting Physician Nephrology 01/07/23 Ayo Abbott MD [address] [facility] [address] [address] Insurance Underwriter Dermatology 10/09/23 Kirk Chaparro MD [address] [facility] [address] [place] [address] Surgeon Vascular Surgery 10/13/23 Shama Antunez, RN [address] [facility] [address] [place] [address] Horses Or Mules Teamster 01/20/24 documented as of this encounter
--- OUTSIDE RECORDS SUMMARY | 2024-04-19 14:01 | XMS_ITS | Encounter Summary ---
Author Organization [facility] Healthcare Address [address] [place] [address] Care Team Providers Care Machine Sizer Name Role Phone Aidan Yadav Unavailable [phone] Jovanna BUTLER MD, Susi Unavailable [phone] Frank Martin MD Unavailable [phone] Cam Harris MD Unavailable [phone] Marino Quick DO Primary Care Provider Ayo Abbott MD Unavailable Kirk Chaparro MD Unavailable [phone] Shama Antunez RN Unavailable [phone] Encounter Details Date Type Department Care Team (Late st Contact Info) Description 04/19/2024 10:20 AM AFLOAT CRYPTOLOGIC MANAGER Lab [facility] [address] [place] [address] [phone] Kidney replaced by transplant; Encounter for long-term (current) use of medications Social History Tobacco Use Types Packs/Day Years [...] materials from doctor or pharmacy Never 03/08/2024 [facility] Utilities Answer Date Recorded In the past 12 months has th e [employer], gas, oil, or water company threatened to [...] often do you attend chur ch or baptist services? Never 02/22/2024 Do you belong to any clubs o r organizations such as jain groups, unions, fraternal or athletic groups, or [...] place to sleep or slept in a group home (including now)? No 03/25/2023 Housing Stability Vital Sign Answer Ramesh e Recorded In the last 12 months, was t here a time when you were not able to pay the mortgage or rent on time? No 02/22/2024 In the past 12 months, how m any times have you moved where you were living? 0 02/22/2024 At any time in the past 12 m [facility], were you homeless or living in a group home (including now)? No 02/22/2024 Personal Safety Answer [...] on file Legal Sex Male 3:24 AM AFLOAT CRYPTOLOGIC MANAGER Gender Identity Male 11/30/2017 3:03 PM CDT Sexual Orientation Straight 06/05/2020 6: 53 AM CDT documented as of this encounter Plan of Treatment Pending Results Name Type Priority Associated Diagnoses Date /Time Tacrolimus level trough Lab Routine Kidney replaced by transplant Encounter for long-term (current) use of medications 04/19/2024 10:42 AM AFLOAT CRYPTOLOGIC MANAGER documented as of this encounter Procedures Procedure Name Priority Date/Time Associated Diagnosis Comments EGFR Routine 04/19/2024 10:42 AM AFLOAT CRYPTOLOGIC MANAGER Kidney replaced by transplant DIFFERENTIAL AUTO Routine 04/19/2024 10: 42 AM AFLOAT CRYPTOLOGIC MANAGER Kidney replaced by transplant CBC WITH AUTO DIFFERENTIAL Routine 04/19/2024 10:42 AM AFLOAT CRYPTOLOGIC MANAGER Kidney replaced by transplant RENAL FUNCTION PANEL Routine 04/19/2024 10:42 AM AFLOAT CRYPTOLOGIC MANAGER Kidney replaced by transplant documented in this encounter Results * (ABNORMAL) eGFR (04/19/2024 10:42 AM AFLOAT CRYPTOLOGIC MANAGER) eGFR 24(L) >=60 mL/min/1. 73 m2 Comment: [...] reviewed 2020. Blood 04/19/2024 10:4 2 AM AFLOAT CRYPTOLOGIC MANAGER 04/19/2024 11:14 AM AFLOAT CRYPTOLOGIC MANAGER us Jack Morrison MD LAB BLOOD ORDERABLES Final R esult [facility]DA [facility] [place] [address] * (ABNORMAL) Differential, auto (04/19/2024 10:42 AM AFLOAT CRYPTOLOGIC MANAGER) Neutrophil abs 13.1(H) 1.5 - 6.5 K/cumm Imm gran abs 0.9(H) 0.0 - 0.1 K/cumm [facility] Lymphocyte abs 0.3(L) 0.8 - 3.3 K/cumm [facility] Monocyte abs 0.6 0.2 - 0.8 K/cumm [facility] Eosinophil abs 0.0 0.0 - 0.5 K/cumm [facility] Basophil abs 0.1 0.0 - 0.1 K/cumm [facility] Neutrophil pct 87.8 % [facility] Comment: Interpretive Data Percent cell count reference ranges are not reported, since discordance with absolute values may lead to misinterpretation of CBC data. Current Interpretive Data was last revised on 2017. Imm gran pct 5.8 % [facility] Comment: Interpretive Data Percent cell count reference ranges are not reported, since discordance with absolute values may lead to misinterpretation of CBC data. Current Interpretive Data was last revised on 2017. Lymphocyte pct 1.8 % [facility] Comment: Interpretive Data Percent cell count reference ranges are not reported, since discordance with absolute values may lead to misinterpretation of CBC data. Current Interpretive Data was last revised on 2017. Monocyte pct 4.0 % [facility] Comment: Interpretive Data Percent cell count reference ranges are not reported, since discordance with absolute values may lead to misinterpretation of CBC data. Current Interpretive Data was last revised on 2017. Eosinophil pct 0.1 % [facility] Comment: Interpretive Data Percent cell count reference ranges are not reported, since discordance with absolute values may lead to misinterpretation of CBC data. Current Interpretive Data was last revised on 2017. Basophil pct 0.5 % [facility] Comment: Interpretive Data Percent cell count reference ranges are not reported, since discordance with absolute values may lead to misinterpretation of CBC data. Current Interpretive Data was last revised on 2017. Blood 04/19/2024 10:4 2 AM AFLOAT CRYPTOLOGIC MANAGER 04/19/2024 11:14 AM AFLOAT CRYPTOLOGIC MANAGER us Jack Morrison MD LAB BLOOD ORDERABLES Final R esult Performing Organization Address City/[facility]/ZIP Co de Phone Number [facility] [place] [place] [address] * (ABNORMAL) CBC with auto differential (04/19/2024 10:42 AM AFLOAT CRYPTOLOGIC MANAGER) WBC 14.9(H) 3.8 - 9.9 K/cumm Hgb 11.6(L) 13.0 - 17.5 g/dL [facility] Hct 35.5(L) 38.9 - 50.3 % [facility] Plt 281 150 - 400 K/cumm [facility] MPV 10.2 9.1 - 12.3 fL [facility] RBC 3.79(L) 4.30 - 5.80 M/cumm [facility] MCV 93.7 81.3 - 96.4 fL [facility] MCH 30.6 27.1 - 33.3 pg [facility] MCHC 32.7 32.3 - 35.7 g/dL [facility] RDW CV 13.5 11.1 - 14.9 % [facility] RDW SD 45.1 35.7 - 48.1 fL [facility] NRBC abs 0.00 0.00 - 0.01 K/cumm [facility] Blood 04/19/2024 10:4 2 AM AFLOAT CRYPTOLOGIC MANAGER 04/19/2024 11:14 AM AFLOAT CRYPTOLOGIC MANAGER us Jack Morrison MD LAB BLOOD ORDERABLES Final R esult [facility] Department [place] [employer] [place] [address] * (ABNORMAL) Renal function panel (04/19/2024 10:42 AM AFLOAT CRYPTOLOGIC MANAGER) Sodium 138 135 - 145 mmol/L Potassium, pl 4.7 3.3 - 4.9 mmol/L [facility] Chloride 99 97 - 110 mmol/L [facility] CO2 29 22 - 32 mmol/L [facility] Anion gap 10 2 - 15 mmol/L [facility] BUN 38(H) 6 - 25 mg/dL [facility] Creatinine 2.80(H) 0.80 - 1.30 mg/dL [facility] Glucose 125 70 - 199 mg/dL [facility] Comment: Interpretive Data Fasting glucose >/= 126 [...] 2022. Calcium 10.7(H) 8.5 - 10.3 mg/dL [facility] Phosphorus, pl 2.5 2.3 - 4.5 mg/dL [facility] Albumin 3.9 3.5 - 5.0 g/dL [facility] Blood 04/19/2024 10:4 2 AM AFLOAT CRYPTOLOGIC MANAGER 04/19/2024 11:14 AM AFLOAT CRYPTOLOGIC MANAGER us Jack Morrison MD LAB BLOOD ORDERABLES Final R esult [facility] Department [place] [address] documented in this encounter Visit Diagnoses Diagnosis Kidney replaced by transplant Encounter for long-term (current) use of medications Encounter for long-term (current) use of other medications documented in this encounter Care Teams Machine Sizer Relationship Specialty Start Date End Date Marino Quick DO [address] [place] [address] PCP - General Family Medicine 09/29/23 Aidan Yadav DO [address] [place], [place] [id number] Heel Curver Cardiology 06/05/20 [place] [address] [place] [address] Urologist Urology 11/05/21 [place] [address] [place] [address] Consulting Physician Interventional Cardiology 01/09/22 Cam Harris MD [address] [place] [address] [address] [place] [phone] Consulting Physician Nephrology 01/07/23 Ayo Abbott MD [address] [facility] [address] [place], [place] [id number] It Business Analyst Dermatology 10/09/23 Kirk Chaparro MD [address] [facility] [address] [place] [address] Surgeon Vascular Surgery 10/13/23 Shama Antunez, RN [address] [facility] [address] [place] [address] Painter And Grader Cork 01/20/24 documented as of this encounter
--- OUTSIDE RECORDS SUMMARY | 2024-04-19 14:01 | XMS_ITS | Encounter Summary ---
Author Organization [facility] Healthcare Address [address] [place] [address] Care Team Providers Care Angiography Technologist Name Role Phone Aidan Yadav Unavailable [phone] Jovanna BUTLER MD, Susi Unavailable [phone] Frank Martin MD Unavailable [phone] Cam Harris MD Unavailable [phone] Marino Quick DO Primary Care Provider Ayo Abbott MD Unavailable [phone] Kirk Chaparro MD Unavailable [phone] Shama Antunez RN Unavailable [phone] Encounter Details Date Type Department Care Team (Late st Contact Info) Description 02/26/2024 Telephone [facility] Radiology [address] [place] [address] Tiffanie Milton RN Social History [...] of experiencing loneliness or isolatio n Never 02/25/2024 OASIS [id number]: Transportation Answer Date Recorded Lack of Transportation (Medical) No 02/25/2024 Lack of Transportation (Non-Medical) No 02/25/2024 Patient Unable or Declines to Respond No 02/25/2024 OASIS [id number]: Health Literacy Answer Ramesh e Recorded Frequency of needing help to read materials from doctor or pharmacy Sometimes 02/25/2024 [facility] Utilities Answer Date Recorded In the [...] often do you attend chur ch or sikhism services? Never 02/22/2024 Do you belong to any clubs o r organizations such as anabaptism groups, unions, fraternal or athletic groups, or [...] place to sleep or slept in a senior living (including now)? No 03/25/2023 Housing Stability Vital Sign Answer Ramesh e Recorded In the last 12 months, was t here a time when you were not able to pay the mortgage or rent on time? No 02/22/2024 In the past 12 months, how m any times have you moved where you were living? 0 02/22/2024 At any time in the past 12 m [facility], were you homeless or living in a senior living (including now)? No 02/22/2024 Personal Safety Answer Date Recorded Have you ever been in or are you currently in a harmful physical or emotional relationship or is someone making you feel afraid or unsafe? Denies 02/21/2024 Education Answer Date Recorded What is the highest level of school you have completed or the highest degree you have received? High school graduate 03/25/2023 Sex and Gender Information Value Date Recorded Sex Assigned at Not on file Legal Sex Male 3:24 AM ESCALATOR INSTALLER Gender Identity Male 11/30/2017 3:03 PM CDT Sexual Orientation Straight 06/05/2020 6: 53 AM CDT documented as of this encounter Plan of Treatment Not on file documented as of this encounter Visit Diagnoses Not on filedocumented in this encounter Additional Health Concerns Infection Onset Date Last Indicated Resolved Time COVID: Suspected 04/06/2024 04/06/2024 04/06/2024 1:16 PM ESCALATOR INSTALLER Rhino/Enterovirus 04/06/2024 04/06/2024 04/13/2024 3:07 AM ESCALATOR INSTALLER documented as of this encounter Care Teams Angiography Technologist Relationship Specialty Start Date End Date Marino QuickDO [address] [place] [address] PCP - General Family Medicine 09/29/23 Aidan Yadav DO [address] [facility] [address] [place] [address] Veterinary Pathologist Cardiology 06/05/20 [place] [address] [place] [address] Urologist Urology 11/05/21 [place] [address] [place] [address] Consulting Physician Interventional Cardiology 01/09/22 Cam Harris MD [address] [facility] [address] [place] [phone] Consulting Physician Nephrology 01/07/23 Ayo Abbott MD [address] [facility] [address] [address] Consulting Psychologist Dermatology 10/09/23 Kirk Chaparro MD [address] [facility] [address] [place] [address] Surgeon Vascular Surgery 10/13/23 Shama Antunez, RN [address] [facility] [address] [place] [address] Electron Tube Assembler 01/20/24 documented as of this encounter
--- OUTSIDE RECORDS SUMMARY | 2024-04-19 14:01 | XMS_ITS | Encounter Summary ---
Author Organization [facility] Healthcare Address [address] [place] [address] Care Team Providers Care Room Designer Name Role Phone Aidan Yadav Unavailable [phone] Jovanna BUTLER MD, Susi Unavailable [phone] Frank Martin MD Unavailable [phone] Cam Harris MD Unavailable [phone] Marino Quick DO Primary Care Provider Ayo Abbott MD Unavailable [phone] Kirk Chaparro MD Unavailable [phone] Shama Antunez RN Unavailable [phone] Encounter Details Date Type Department Care Team (Late st Contact Info) Description 03/04/2024 Telephone [facility] Radiology [address] [place] [address] Kirstin Soto, SAURAV Social History Tobacco Use Types Packs/Day Years [...] materials from doctor or pharmacy Never 03/08/2024 [facility] Utilities Answer Date Recorded In the past 12 months has e [employer], gas, oil, or water company threatened to [...] any clubs o r organizations such as baptism groups, unions, fraternal or athletic groups, or [...] place to sleep or slept in a penitentiary (including now)? No 03/25/2023 Housing Stability Vital Sign Answer Ramesh e Recorded In the last 12 months, was t here a time when you were not able to pay the mortgage or rent on time? No 02/22/2024 In the past 12 months, how m any times have you moved where you were living? 0 02/22/2024 At any time in the past 12 m [facility], were you homeless or living in a penitentiary (including now)? No 02/22/2024 Personal Safety Answer [...] on file Legal Sex Male 3:24 AM MANAGER OF REVENUE Gender Identity Male 11/30/2017 3:03 PM CDT Sexual Orientation Straight 06/05/2020 6: 53 AM CDT documented as of this encounter Plan of Treatment Not on file documented as of this encounter Visit Diagnoses Not on filedocumented in this encounter Additional Health Concerns Infection Onset Date Last Indicated Resolved Time COVID: Suspected 04/06/2024 04/06/2024 04/06/2024 1:16 PM MANAGER OF REVENUE Rhino/Enterovirus 04/06/2024 04/06/2024 04/13/2024 3:07 AM MANAGER OF REVENUE documented as of this encounter Care Teams Room Designer Relationship Specialty Start Date End Date Marino Quick [address] [place] [address] PCP - General Family Medicine 09/29/23 Aidan Yadav DO [address] [place] [address] Professional Application Designer Cardiology 06/05/20 [place] [address] [place] [address] Urologist Urology 11/05/21 [place] [address] [place] [address] Consulting Physician Interventional Cardiology 01/09/22 Cam Harris MD [address] [place] [address] [place] [phone] Consulting Physician Nephrology 01/07/23 Ayo Abbott MD [address] [facility] [address], [place] [address] Physical Fitness Trainer Dermatology 10/09/23 Kirk Chaparro MD [address] [facility] [address], [place] [address] Surgeon Vascular Surgery 10/13/23 Shama Antunez, RN [address] [facility] [address] [place] [address] Community Living Coach 01/20/24 documented as of this encounter
--- OUTSIDE RECORDS SUMMARY | 2024-04-19 14:01 | XMS_ITS ---
Author Organization [facility] al Address [address] [place] [address] Care Team Providers Care Freel[address] Stenographer Name Role Phone Aidan Yadav DO Unavailable [phone] Jovanna BUTLER MD, Susi Unavailable [phone] Frank Martin MD Unavailable [phone] Cam Harris MD Unavailable [phone] Marino Quick DO Primary Care Provider Ayo Abbott MD Unavailable [phone] Kirk Chaparro MD Unavailable [phone] Shama Antunez RN Unavailable [phone] Dialysis Access Sites Type Status Location Placement Date Removal Da te AV fistula Active Left Upper Arm - Anterior 12/11/2017 Hemodialysis Cath Triple Inactive Left Thigh - Anterior 11/26/2020 11/28/2020 Procedures Procedure Name Priority Date/Time Associated Diagnosis Comments EGFR Routine 04/19/2024 10:42 AM SHAPE CARVER Kidney replaced by transplant DIFFERENTIAL AUTO Routine 04/19/2024 10:42 AM SHAPE CARVER Kidney replaced by transplant CBC WITH AUTO DIFFERENTIAL Routine 04/19/2024 10:42 AM SHAPE [employer]VER Kidney replaced by transplant RENAL FUNCTION PANEL Routine 04/19/2024 10:42 AM SHAPE [employer]VER Kidney replaced by transplant DIFFERENTIAL AUTO Routine 04/06/2024 11:42 AM SHAPE CARVER Encounter for aftercare following kidney transplant CBC WITH AUTO DIFFERENTIAL Routine 04/06/2024 11:42 AM SHAPE CARVER Encounter for aftercare following kidney transplant RESPIRATORY PATHOGEN PANEL Routine 04/06/2024 11:41 AM SHAPE CARVER Encounter for aftercare following kidney transplant XR CHEST PA LATERAL 2 VIEWS Schedule Routine, Read Routine (OP Routine) 04/06/2024 11:28 AM SHAPE CARVER Shortness of breath POCT URINALYSIS DIPSTICK Routine 04/06/2024 10:35 AM SHAPE CARVER Encounter for aftercare following kidney transplant BK VIRUS, DNA, QUANTITATIVE Routine 04/05/2024 9:00 AM SHAPE CARVER Kidney replaced by transplant TACROLIMUS LEVEL, TROUGH Routine 04/05/2024 8:59 AM SHAPE [employer]VER Kidney replaced by transplant Encounter for long-term (current) use of medications RENAL FUNCTION PANEL Routine 04/05/2024 8:58 AM SHAPE [employer]VER Kidney replaced by transplant RENAL FUNCTION PANEL Routine 04/05/2024 8:57 AM SHAPE [employer]VER Kidney replaced by transplant BK VIRUS, DNA, QUANTITATIVE Routine 03/29/2024 11:28 AM SHAPE [employer]VER Kidney replaced by transplant TACROLIMUS LEVEL, TROUGH Routine 03/29/2024 11:27 AM SHAPE [employer]VER Kidney replaced by transplant Encounter for long-term (current) use of medications CBC WITH AUTO DIFFERENTIAL Routine 03/29/2024 11:26 AM SHAPE [employer] Kidney replaced by transplant RENAL FUNCTION PANEL Routine 03/29/2024 11:25 AM SHAPE [employer]VER Kidney replaced by transplant BK VIRUS, DNA, QUANTITATIVE Routine 03/23/2024 12:07 PM SHAPE CARVER Kidney replaced by transplant TACROLIMUS LEVEL, TROUGH Routine 03/23/2024 12:06 PM SHAPE [employer]VER Kidney replaced by transplant Encounter for long-term (current) use of medications CBC WITH AUTO DIFFERENTIAL Routine 03/23/2024 12:05 PM SHAPE [employer]VER Kidney replaced by transplant RENAL FUNCTION PANEL Routine 03/23/2024 12:04 PM SHAPE [employer] Kidney replaced by transplant ABSCESS CATHETER INJECTION Schedule Routine, Read Routine (OP Routine) 03/22/2024 10:05 AM SHAPE CARVER Perinephric fluid collection LIPID PANEL Routine 03/15/2024 9:49 AM SHAPE [employer]VER Kidney replaced by transplant Hyperlipidemia, unspecified hyperlipidemia type HEPATIC FUNCTION PANEL Routine 03/15/2024 9:48 AM SHAPE [employer]VER Kidney replaced by transplant BK VIRUS, DNA, QUANTITATIVE Routine 03/15/2024 9:48 AM SHAPE [employer]VER Kidney replaced by transplant TACROLIMUS LEVEL, TROUGH Routine 03/15/2024 9:47 AM SHAPE [employer]VER Kidney replaced by transplant Encounter for long-term (current) use of medications CBC WITH AUTO DIFFERENTIAL Routine 03/15/2024 9:47 AM SHAPE [employer]VER Kidney replaced by transplant RENAL FUNCTION PANEL Routine 03/15/2024 9:46 AM SHAPE [employer]VER Kidney replaced by transplant POCT URINALYSIS DIPSTICK Routine 03/10/2024 8:47 AM SHAPE CARVER Encounter for removal of ureteral stent EGFR Routine 03/10/2024 8:21 AM SHAPE [employer]VER Kidney replaced by transplant DIFFERENTIAL AUTO Routine 03/10/2024 8:2 1 AM SHAPE [employer]VER Kidney replaced by transplant RENAL FUNCTION PANEL Routine 03/10/2024 8:21 AM SHAPE [employer]VER Kidney replaced by transplant CBC WITH AUTO DIFFERENTIAL Routine 03/10/2024 8:21 AM SHAPE [employer] Kidney replaced by transplant TACROLIMUS LEVEL, RANDOM Routine 03/10/2024 8:21 AM SHAPE CARVER Kidney replaced by transplant MAGNESIUM Routine 03/10/2024 8:21 AM SHAPE [employer]VER Kidney replaced by transplant BK VIRUS PCR QUANTITATIVE Routine 03/10/2024 8:21 AM SHAPE [employer] Kidney replaced by transplant PET STRESS TEST Schedule Routine, Read Routine (OP Routine) 03/08/2024 3:12 PM SHAPE CARVER Coronary artery disease involving [place] coronary artery of [place] heart without angina pectoris PET/CT MYOCARDIAL PERFUSION IMAGING (MULTIPLE) Schedule Routine, Read Routine (OP Routine) 03/08/2024 3:12 PM SHAPE CARVER Coronary artery disease involving [place] coronary artery of [place] heart without angina pectoris ABSCESS CATHETER INJECTION Schedule Routine, Read Routine (OP Routine) 03/08/2024 11:02 AM SHAPE [employer]VER Perinephric fluid collection EGFR STAT 03/03/2024 9:40 AM SHAPE CARVER DIFFERENTIAL AUTO STAT 03/03/2024 9:4 0 AM SHAPE CARVER TACROLIMUS LEVEL, TROUGH STAT 03/03/2024 9:40 AM SHAPE CARVER MAGNESIUM STAT 03/03/2024 9:40 AM SHAPE CARVER CBC WITH AUTO DIFFERENTIAL STAT 03/03/2024 9:40 AM SHAPE CARVER RENAL FUNCTION PANEL STAT 03/03/2024 9:40 AM SHAPE CARVER EGFR Routine 03/01/2024 8:00 AM SHAPE CARVER RENAL FUNCTION PANEL Routine 03/01/2024 8:00 AM SHAPE [employer]VER DIFFERENTIAL AUTO Routine 03/01/2024 8:0 0 AM SHAPE CARVER TACROLIMUS LEVEL, TROUGH Routine 03/01/2024 8:00 AM SHAPE CARVER MAGNESIUM Routine 03/01/2024 8:00 AM SHAPE CARVER CBC WITH AUTO DIFFERENTIAL Routine 03/01/2024 8:00 AM SHAPE [employer]VER HEPATIC FUNCTION PANEL Routine 02/26/2024 8:59 AM SHAPE [employer]VER Kidney replaced by transplant LIPID PANEL Routine 02/26/2024 8:59 AM SHAPE [employer]VER Kidney replaced by transplant Hyperlipidemia, unspecified hyperlipidemia type TACROLIMUS LEVEL, TROUGH Routine 02/26/2024 8:59 AM SHAPE [employer] Kidney replaced by transplant Encounter for long-term (current) use of medications RENAL FUNCTION PANEL Routine 02/26/2024 8:59 AM SHAPE [employer] Kidney replaced by transplant CBC WITH AUTO DIFFERENTIAL Routine 02/26/2024 8:59 AM SHAPE [employer] Kidney replaced by transplant BK VIRUS, DNA, QUANTITATIVE Routine 02/26/2024 8:59 AM SHAPE [employer] Kidney replaced by transplant POCT GLUCOSE DEVICE Routine 02/23/2024 11:43 AM SHAPE [employer]VER POCT GLUCOSE DEVICE Routine 02/23/2024 8 :21 AM SHAPE CARVER POTASSIUM, WHOLE BLOOD STAT 02/23/2024 6:38 AM SHAPE CARVER ECG 12-LEAD STAT 02/23/2024 6:[address] ABDOMEN PELVIS WO CONTRAST IP Routine 02/23/2024 5:21 AM SHAPE CARVER EGFR Routine 02/23/2024 4:37 AM SHAPE [employer]VER DIFFERENTIAL AUTO Routine 02/23/2024 4:3 7 AM SHAPE [employer]VER RENAL FUNCTION PANEL Routine 02/23/2024 4:37 AM SHAPE CARVER CBC WITH AUTO DIFFERENTIAL Routine 02/23/2024 4:37 AM SHAPE CARVER MAGNESIUM Routine 02/23/2024 4:37 AM SHAPE CARVER TACROLIMUS LEVEL, TROUGH Routine 02/23/2024 4:37 AM SHAPE CARVER POCT GLUCOSE DEVICE Routine 02/22/2024 9 :35 PM SHAPE CARVER POCT GLUCOSE DEVICE Routine 02/22/2024 5 :37 PM SHAPE CARVER CELL DIFFERENTIAL, BODY FLUID Routine 02/22/2024 2:26 PM SHAPE [employer]VER CELL DIFFERENTIAL, BODY FLUID Routine 02/22/2024 2:26 PM SHAPE CARVER CELL COUNT W/REFLEX DIFFERENTIAL, BODY FLUID Routine 02/22/2024 2:26 PM SHAPE [employer]VER CREATININE, BODY FLUID Routine 02/22/2024 2:26 PM SHAPE [employer]VER CELL COUNT W/REFLEX DIFFERENTIAL, BODY FLUID Routine 02/22/2024 2:26 PM SHAPE CARVER AEROBIC AND ANAEROBIC CULTURE AND GRAM STAIN Routine 02/22/2024 2:26 PM SHAPE [employer]VER AEROBIC AND ANAEROBIC CULTURE AND GRAM STAIN Routine 02/22/2024 2:26 PM SHAPE CARVER CREATININE, BODY FLUID Routine 02/22/2024 2:19 PM SHAPE CARVER POCT GLUCOSE DEVICE Routine 02/22/2024 1 :48 PM SHAPE CARVER FLUID DRAIN SOFT TISSUE IP Routine 02/22/2024 1:14 PM SHAPE CARVER CELL DIFFERENTIAL, BODY FLUID Routine 02/22/2024 12:50 PM SHAPE [employer]VER CELL COUNT W/REFLEX DIFFERENTIAL, BODY FLUID Routine 02/22/2024 12:50 PM SHAPE CARVER CREATININE, BODY FLUID Routine 02/22/2024 12:50 PM SHAPE CARVER POCT GLUCOSE DEVICE Routine 02/22/2024 6 :27 AM SHAPE CARVER POTASSIUM, WHOLE BLOOD STAT 02/22/2024 6:27 AM SHAPE CARVER EGFR Routine 02/22/2024 4:38 AM SHAPE CARVER DIFFERENTIAL AUTO Routine 02/22/2024 4:3 8 AM SHAPE CARVER RENAL FUNCTION PANEL Routine 02/22/2024 4:38 AM SHAPE CARVER CBC WITH AUTO DIFFERENTIAL Routine 02/22/2024 4:38 AM SHAPE CARVER MAGNESIUM Routine 02/22/2024 4:38 AM SHAPE CARVER TACROLIMUS LEVEL, TROUGH Routine 02/22/2024 4:38 AM SHAPE CARVER POCT GLUCOSE DEVICE Routine 02/21/2024 8 :49 PM SHAPE CARVER POCT GLUCOSE DEVICE Routine 02/21/2024 5 :26 PM SHAPE CARVER POCT GLUCOSE DEVICE Routine 02/21/2024 2 :08 PM SHAPE CARVER EGFR STAT 02/21/2024 2:06 PM SHAPE CARVER DIFFERENTIAL AUTO STAT 02/21/2024 2:0 6 PM SHAPE CARVER RENAL FUNCTION PANEL STAT 02/21/2024 2:06 PM SHAPE CARVER PROTIME-INR STAT 02/21/2024 2:06 PM SHAPE [employer]VER MAGNESIUM STAT 02/21/2024 2:06 PM SHAPE [employer]VER CBC WITH AUTO DIFFERENTIAL STAT 02/21/2024 2:06 PM SHAPE CARVER ECG 12-LEAD Routine 02/17/2024 4:29 PM SHAPE [employer]VER Atrial fibrillation, unspecified type (HCC) CT ABDOMEN PELVIS WO CONTRAST Urgent 02/17/2024 11:48 AM SHAPE [employer]VER Swelling abdomen EGFR Routine 02/17/2024 10:25 AM SHAPE CARVER Kidney replaced by transplant DIFFERENTIAL AUTO Routine 02/17/2024 10:25 AM SHAPE [employer]VER Kidney replaced by transplant RENAL FUNCTION PANEL Routine 02/17/2024 10:25 AM SHAPE [employer]VER Kidney replaced by transplant TACROLIMUS LEVEL, RANDOM Routine 02/17/2024 10:25 AM SHAPE [employer]VER Kidney replaced by transplant MAGNESIUM Routine 02/17/2024 10:25 AM SHAPE [employer]VER Kidney replaced by transplant CBC WITH AUTO DIFFERENTIAL Routine 02/17/2024 10:25 AM SHAPE [employer] Kidney replaced by transplant HEPATITIS B DNA, QUANTITATIVE, PCR Routine 02/17/2024 10:25 AM SHAPE [employer] Kidney replaced by transplant HEPATITIS C RNA, QUANTITATIVE, PCR Routine 02/17/2024 10:25 AM SHAPE [employer] Kidney replaced by transplant HIV-1 RNA, QUANTITATIVE, PCR Routine 02/17/2024 10:25 AM SHAPE CARVER Kidney replaced by transplant EGFR STAT 02/11/2024 9:00 AM SHAPE [employer]VER DIFFERENTIAL AUTO STAT 02/11/2024 9:0 0 AM SHAPE [employer]VER TACROLIMUS LEVEL, TROUGH STAT 02/11/2024 9:00 AM SHAPE [employer]VER MAGNESIUM STAT 02/11/2024 9:00 AM SHAPE CARVER CBC WITH AUTO DIFFERENTIAL STAT 02/11/2024 9:00 AM SHAPE [employer]VER RENAL FUNCTION PANEL STAT 02/11/2024 9:[address] ABDOMEN PELVIS WO CONTRAST Schedule Routine, Read Routine (OP Routine) 02/09/2024 3:42 PM SHAPE CARVER Kidney transplanted CREATININE, BODY FLUID Routine 02/09/2024 3:29 PM SHAPE [employer]VER Kidney transplanted EGFR Routine 02/09/2024 9:00 AM SHAPE [employer]VER DIFFERENTIAL AUTO Routine 02/09/2024 9:0 0 AM SHAPE [employer]VER TACROLIMUS LEVEL, TROUGH Routine 02/09/2024 9:00 AM SHAPE [employer]VER MAGNESIUM Routine 02/09/2024 9:00 AM SHAPE [employer]VER CBC WITH AUTO DIFFERENTIAL Routine 02/09/2024 9:00 AM SHAPE [employer]VER RENAL FUNCTION PANEL Routine 02/09/2024 9:00 AM SHAPE [employer]VER EGFR STAT 02/04/2024 8:52 AM SHAPE [employer]VER DIFFERENTIAL AUTO STAT 02/04/2024 8:5 2 AM SHAPE [employer]VER TACROLIMUS LEVEL, TROUGH STAT 02/04/2024 8:52 AM SHAPE [employer]VER CREATININE, BODY FLUID STAT 02/04/2024 8:52 AM SHAPE [employer]VER MAGNESIUM STAT 02/04/2024 8:52 AM SHAPE [employer]VER CBC WITH AUTO DIFFERENTIAL STAT 02/04/2024 8:52 AM SHAPE [employer]VER RENAL FUNCTION PANEL STAT 02/04/2024 8:52 AM SHAPE [employer]VER EGFR Routine 02/02/2024 9:00 AM SHAPE [employer]VER DIFFERENTIAL AUTO Routine 02/02/2024 9:0 0 AM SHAPE [employer]VER TACROLIMUS LEVEL, TROUGH Routine 02/02/2024 9:00 AM SHAPE [employer]VER MAGNESIUM Routine 02/02/2024 9:00 AM SHAPE [employer]VER CBC WITH AUTO DIFFERENTIAL Routine 02/02/2024 9:00 AM SHAPE [employer]VER RENAL FUNCTION PANEL Routine 02/02/2024 9:00 AM SHAPE CARVER POCT GLUCOSE DEVICE Routine 01/28/2024 5 :58 PM SHAPE [employer]VER POCT GLUCOSE DEVICE Routine 01/28/2024 12:47 PM SHAPE [employer]VER POCT GLUCOSE DEVICE Routine 01/28/2024 8 :44 AM SHAPE [employer]VER EGFR Routine 01/28/2024 4:15 AM SHAPE [employer]VER DIFFERENTIAL AUTO Routine 01/28/2024 4:1 5 AM SHAPE [employer]VER TACROLIMUS LEVEL, TROUGH Routine 01/28/2024 4:15 AM SHAPE [employer]VER MAGNESIUM Routine 01/28/2024 4:15 AM SHAPE [employer]VER RENAL FUNCTION PANEL Routine 01/28/2024 4:15 AM SHAPE [employer]VER CBC WITH AUTO DIFFERENTIAL Routine 01/28/2024 4:15 AM SHAPE [employer]VER POCT GLUCOSE DEVICE Routine 01/27/2024 9 :07 PM SHAPE [employer]VER POCT GLUCOSE DEVICE Routine 01/27/2024 5 :55 PM SHAPE [employer]VER ECG 12-LEAD Routine 01/27/2024 3:35 PM SHAPE [employer]VER POCT GLUCOSE DEVICE Routine 01/27/2024 12:24 PM SHAPE [employer]VER EGFR Routine 01/27/2024 4:17 AM SHAPE [employer]VER DIFFERENTIAL AUTO Routine 01/27/2024 4:1 7 AM SHAPE [employer]VER TACROLIMUS LEVEL, TROUGH Routine 01/27/2024 4:17 AM SHAPE [employer]VER MAGNESIUM Routine 01/27/2024 4:17 AM SHAPE [employer]VER RENAL FUNCTION PANEL Routine 01/27/2024 4:17 AM SHAPE [employer]VER CBC WITH AUTO DIFFERENTIAL Routine 01/27/2024 4:17 AM SHAPE [employer]VER POCT GLUCOSE DEVICE Routine 01/26/2024 7 :59 PM SHAPE [employer]VER POCT GLUCOSE DEVICE Routine 01/26/2024 5 :15 PM SHAPE [employer]VER POCT GLUCOSE DEVICE Routine 01/26/2024 1 :48 PM SHAPE [employer]VER HEMODIALYSIS Routine 01/26/2024 12:43 PM SHAPE [employer]VER POCT GLUCOSE DEVICE Routine 01/26/2024 12:06 PM SHAPE [employer]VER TRANSFUSE RED BLOOD CELLS Timed 01/26/2024 9:00 AM SHAPE [employer]VER POCT GLUCOSE DEVICE Routine 01/26/2024 8 :25 AM SHAPE [employer]VER TYPE AND SCREEN Timed 01/26/2024 6:19 AM SHAPE [employer]VER PREPARE RBC Timed 01/26/2024 5:41 AM SHAPE [employer]VER EGFR Routine 01/26/2024 4:39 AM SHAPE [employer]VER DIFFERENTIAL AUTO Routine 01/26/2024 4:3 9 AM SHAPE [employer]VER TACROLIMUS LEVEL, TROUGH Routine 01/26/2024 4:39 AM SHAPE [employer]VER MAGNESIUM Routine 01/26/2024 4:39 AM SHAPE [employer]VER RENAL FUNCTION PANEL Routine 01/26/2024 4:39 AM SHAPE [employer]VER CBC WITH AUTO DIFFERENTIAL Routine 01/26/2024 4:39 AM SHAPE [employer]VER POCT GLUCOSE DEVICE Routine 01/25/2024 9 :33 PM SHAPE [employer]VER TROPONIN I HIGH-SENSITIVITY 6-HOUR Timed 01/25/2024 7:51 PM SHAPE [employer]VER TROPONIN I HIGH-SENSITIVITY 4-HOUR Timed 01/25/2024 6:00 PM SHAPE [employer]VER POCT GLUCOSE DEVICE Routine 01/25/2024 5 :49 PM SHAPE [employer]VER TROPONIN I HIGH-SENSITIVITY 2-HOUR Timed 01/25/2024 3:44 PM SHAPE [employer]VER XR CHEST 1 VIEW ED Urgent/IP Urgent 01/25/2024 2:52 PM SHAPE [employer]VER CBC WITHOUT DIFFERENTIAL STAT 01/25/2024 2:42 PM SHAPE [employer]VER TROPONIN I HIGH-SENSITIVITY STAT 01/25/2024 2:05 PM SHAPE [employer]VER CRITICAL RESULT CALLBACK CARDIO CHEM Routine 01/25/2024 1:46 PM SHAPE [employer]VER TROPONIN I HIGH-SENSITIVITY SERIES (BASELINE, 2HR, 4HR, 6HR) Routine 01/25/2024 1:46 PM SHAPE CARVER ECG 12-LEAD STAT 01/25/2024 1:31 PM SHAPE [employer]VER CREATININE, BODY FLUID Routine 01/25/2024 1:15 PM SHAPE CARVER POCT GLUCOSE DEVICE Routine 01/25/2024 12:46 PM SHAPE [employer]VER POCT GLUCOSE DEVICE Routine 01/25/2024 11:13 AM SHAPE CARVER CENTRAL LINE PLACEMENT > 5 YEARS IP Routine 01/25/2024 10:26 AM SHAPE CARVER POCT GLUCOSE DEVICE Routine 01/25/2024 7 :40 AM SHAPE [employer]VER DIFFERENTIAL AUTO Routine 01/25/2024 5:0 7 AM SHAPE [employer]VER EGFR Routine 01/25/2024 5:07 AM SHAPE [employer]VER TACROLIMUS LEVEL, TROUGH Routine 01/25/2024 5:07 AM SHAPE [employer]VER MAGNESIUM Routine 01/25/2024 5:07 AM SHAPE [employer]VER RENAL FUNCTION PANEL Routine 01/25/2024 5:07 AM SHAPE [employer]VER CBC WITH AUTO DIFFERENTIAL Routine 01/25/2024 5:07 AM SHAPE [employer]VER POCT GLUCOSE DEVICE Routine 01/24/2024 8 :58 PM SHAPE [employer]VER POCT GLUCOSE DEVICE Routine 01/24/2024 4 :57 PM SHAPE [employer]VER POCT GLUCOSE DEVICE Routine 01/24/2024 11:41 AM SHAPE [employer]VER POCT GLUCOSE DEVICE Routine 01/24/2024 7 :32 AM SHAPE [employer]VER DIFFERENTIAL AUTO Routine 01/24/2024 5:0 6 AM SHAPE [employer]VER EGFR Routine 01/24/2024 5:06 AM SHAPE [employer]VER TACROLIMUS LEVEL, TROUGH Routine 01/24/2024 5:06 AM SHAPE [employer]VER MAGNESIUM Routine 01/24/2024 5:06 AM SHAPE [employer]VER RENAL FUNCTION PANEL Routine 01/24/2024 5:06 AM SHAPE [employer]VER CBC WITH AUTO DIFFERENTIAL Routine 01/24/2024 5:06 AM SHAPE [employer]VER POCT GLUCOSE DEVICE Routine 01/23/2024 9 :19 PM SHAPE [employer]VER POCT GLUCOSE DEVICE Routine 01/23/2024 5 :44 PM SHAPE [employer]VER POCT GLUCOSE DEVICE Routine 01/23/2024 12:11 PM SHAPE [employer]VER HEMODIALYSIS Routine 01/23/2024 8:43 AM SHAPE [employer]VER POCT GLUCOSE DEVICE Routine 01/23/2024 8 :18 AM SHAPE [employer]VER TROPONIN I HIGH-SENSITIVITY Routine 01/23/2024 6:12 AM SHAPE [employer]VER CBC WITH AUTO DIFFERENTIAL Routine 01/23/2024 2:42 AM SHAPE [employer]VER EGFR Routine 01/23/2024 2:42 AM SHAPE [employer]VER DIFFERENTIAL AUTO Routine 01/23/2024 2:4 2 AM SHAPE [employer]VER TACROLIMUS LEVEL, TROUGH Routine 01/23/2024 2:42 AM SHAPE [employer]VER MAGNESIUM Routine 01/23/2024 2:42 AM SHAPE [employer]VER RENAL FUNCTION PANEL Routine 01/23/2024 2:42 AM SHAPE [employer]VER TROPONIN I HIGH-SENSITIVITY Routine 01/23/2024 2:41 AM SHAPE CARVER ECG 12-LEAD STAT 01/23/2024 1:02 AM SHAPE [employer]VER DIFFERENTIAL AUTO Routine 01/22/2024 11:14 PM SHAPE [employer]VER TROPONIN I HIGH-SENSITIVITY Routine 01/22/2024 11:14 PM SHAPE [employer]VER TROPONIN I HIGH-SENSITIVITY Routine 01/22/2024 11:14 PM SHAPE [employer]VER TYPE AND SCREEN Timed 01/22/2024 11:14 PM SHAPE [employer]VER TACROLIMUS LEVEL, TROUGH Routine 01/22/2024 11:14 PM SHAPE [employer]VER CBC WITH AUTO DIFFERENTIAL Routine 01/22/2024 11:14 PM SHAPE [employer]VER XR CHEST 1 VIEW ED Urgent/IP Urgent 01/22/2024 8:41 PM SHAPE [employer]VER POCT GLUCOSE DEVICE Routine 01/22/2024 8 :07 PM SHAPE [employer]VER POCT GLUCOSE DEVICE Routine 01/22/2024 6 :42 PM SHAPE [employer]VER TROPONIN I HIGH-SENSITIVITY 6-HOUR Timed 01/22/2024 6:40 PM SHAPE [employer]VER TRANSFUSE RED BLOOD CELLS Timed 01/22/2024 6:15 PM SHAPE [employer]VER TRANSTHORACIC ECHO (TTE) COMPLETE W DOPPLER/CF W CONTRAST STAT 01/22/2024 5:31 PM SHAPE [employer]VER TYPE AND SCREEN Timed 01/22/2024 4:14 PM SHAPE [employer]VER TROPONIN I HIGH-SENSITIVITY 4-HOUR Timed 01/22/2024 4:14 PM SHAPE [employer]VER ECG 12-LEAD STAT 01/22/2024 3:39 PM SHAPE [employer]VER CBC WITHOUT DIFFERENTIAL STAT 01/22/2024 2:07 PM SHAPE [employer]VER ECG 12-LEAD Routine 01/22/2024 12:59 PM [employer] CRITICAL RESULT CALLBACK CARDIO CHEM Routine 01/22/2024 12:18 PM SHAPE [employer]VER EGFR STAT 01/22/2024 12:18 PM SHAPE [employer]VER TROPONIN I HIGH-SENSITIVITY SERIES (BASELINE, 2HR, 4HR, 6HR) Routine 01/22/2024 12:18 PM SHAPE [employer]VER PHOSPHORUS STAT 01/22/2024 12:18 PM SHAPE [employer]VER MAGNESIUM STAT 01/22/2024 12:18 PM SHAPE [employer]VER BASIC METABOLIC PANEL STAT 01/22/2024 12:18 PM SHAPE [employer]VER POCT GLUCOSE DEVICE Routine 01/22/2024 11:35 AM SHAPE [employer]VER XR ABDOMEN AP 1 VIEW IP Routine 01/22/2024 10:29 AM SHAPE CARVER WV AN PROCEDURE PLACEHOLDER Routine 01/22/2024 9:42 AM SHAPE CARVER W[place] AN ELECTIVE ENDOTRACHEAL AIRWAY Routine 01/22/2024 9:42 AM SHAPE [employer]VER RE-EXPLORATION KIDNEY TRANSPLANT 01/22/2024 9:18 AM SHAPE CARVER -donor kidney transplant recipient Case Notes 01/20@0855- Ace Bennett via phone call dos 01/21 kristal time sensitive - DMF EGFR STAT 01/22/2024 9:02 AM SHAPE [employer]VER BASIC METABOLIC PANEL STAT 01/22/2024 9:02 AM SHAPE [employer]VER POCT GLUCOSE DEVICE Routine 01/22/2024 9 :01 AM SHAPE [employer]VER POCT GLUCOSE DEVICE Routine 01/22/2024 8 :26 AM SHAPE [employer]VER LACTATE DEHYDROGENASE Routine 01/22/2024 4:58 AM SHAPE [employer]VER HAPTOGLOBIN Routine 01/22/2024 4:58 AM SHAPE [employer]VER EGFR Routine 01/22/2024 4:58 AM SHAPE [employer]VER DIFFERENTIAL AUTO Routine 01/22/2024 4:5 8 AM SHAPE [employer]VER TACROLIMUS LEVEL, TROUGH Routine 01/22/2024 4:58 AM SHAPE [employer]VER MAGNESIUM Routine 01/22/2024 4:58 AM SHAPE [employer]VER RENAL FUNCTION PANEL Routine 01/22/2024 4:58 AM SHAPE [employer]VER CBC WITH AUTO DIFFERENTIAL Routine 01/22/2024 4:58 AM SHAPE [employer]VER POCT GLUCOSE DEVICE Routine 01/21/2024 8 :34 PM SHAPE [employer]VER POCT GLUCOSE DEVICE Routine 01/21/2024 6 :37 PM SHAPE [employer]VER POTASSIUM, WHOLE BLOOD STAT 01/21/2024 4:22 PM SHAPE [employer]VER CBC WITHOUT DIFFERENTIAL STAT 01/21/2024 1:51 PM SHAPE [employer]VER POCT GLUCOSE DEVICE Routine 01/21/2024 12:26 PM SHAPE CARVER WV AN PROCEDURE PLACEHOLDER Routine 01/21/2024 10:41 AM SHAPE [employer]VER HEMODIALYSIS Routine 01/21/2024 9:39 AM SHAPE [employer]VER POTASSIUM LEVEL Timed 01/21/2024 8:39 AM SHAPE [employer]VER POCT GLUCOSE DEVICE Routine 01/21/2024 8 :10 AM SHAPE CARVER POCT GLUCOSE DEVICE Routine 01/21/2024 6 :47 AM SHAPE CARVER POCT GLUCOSE DEVICE Routine 01/21/2024 5 :46 AM SHAPE [employer]VER POTASSIUM, WHOLE BLOOD STAT 01/21/2024 5:22 AM SHAPE [employer]VER ECG 12-LEAD STAT 01/21/2024 5:17 AM SHAPE [employer]VER EGFR Routine 01/21/2024 4:18 AM SHAPE [employer]VER CRITICAL RESULT CALLBACK CHEMISTRY Routine 01/21/2024 4:18 AM SHAPE [employer]VER DIFFERENTIAL AUTO Routine 01/21/2024 4:1 8 AM SHAPE CARVER TACROLIMUS LEVEL, TROUGH Routine 01/21/2024 4:18 AM SHAPE [employer]VER MAGNESIUM Routine 01/21/2024 4:18 AM SHAPE [employer]VER RENAL FUNCTION PANEL Routine 01/21/2024 4:18 AM SHAPE CARVER CBC WITH AUTO DIFFERENTIAL Routine 01/21/2024 4:18 AM SHAPE CARVER US RENAL TRANSPLANT W DOPPLERS ED Urgent/IP Urgent 01/20/2024 11:24 PM SHAPE CARVER POCT GLUCOSE DEVICE Routine 01/20/2024 8 :56 PM SHAPE CARVER XR CHEST 1 VIEW ED Urgent/IP Urgent 01/20/2024 5:58 PM SHAPE [employer]VER EGFR STAT 01/20/2024 5:08 PM SHAPE [employer]VER RENAL FUNCTION PANEL STAT 01/20/2024 5:08 PM SHAPE CARVER CBC WITHOUT DIFFERENTIAL STAT 01/20/2024 5:08 PM SHAPE CARVER POCT GLUCOSE DEVICE Routine 01/20/2024 4 :51 PM SHAPE CARVER POC BLOOD GAS AND CHEMISTRIES, ARTERIAL Routine 01/20/2024 4:23 PM SHAPE [employer]VER TRANSFUSE RED BLOOD CELLS Timed 01/20/2024 3:54 PM SHAPE [employer]VER POC BLOOD GAS AND CHEMISTRIES, ARTERIAL Routine 01/20/2024 3:09 PM SHAPE [employer]VER POCT GLUCOSE DEVICE Routine 01/20/2024 2:41 PM SHAPE [employer]VER ANESTHESIA CENTRAL VENOUS LINE PLACEMENT Routine 01/20/2024 2:37 PM SHAPE [employer]VER ANESTHESIA INTUBATION Routine 01/20/2024 1:37 PM SHAPE CARVER TRANSPLANT KIDNEY 01/20/2024 12:46 PM SHAPE CARVER ESRD (end stage renal disease) (CMS/HCC) (HCC) Case Notes ORT TIME: TBDUNOS#[id number]:MWOBMatch ID#: [id number] Group:OTransplant Coordinator: Mervat [phone] POCT GLUCOSE DEVICE Routine 01/20/2024 11:12 AM SHAPE [employer]VER HLA DONOR SPECIFIC ANTIBODY REPORT 01/20/2024 7:31 AM SHAPE [employer]VER EGFR Routine 01/20/2024 12:08 AM SHAPE CARVER BASIC METABOLIC PANEL Routine 01/20/2024 12:08 AM SHAPE [employer]VER HEMODIALYSIS Routine 01/19/2024 6:44 PM SHAPE CARVER XR ANKLE RIGHT 3 OR MORE VIEWS IP Routine 01/19/2024 12:37 PM SHAPE CARVER XR TIBIA FIBULA RIGHT2 VIEWS IP Routine 01/19/2024 12:37 PM SHAPE CARVER URINE CULTURE Routine 01/19/2024 8:50 AM SHAPE [employer]VER PREPARE RBC Timed 01/19/2024 6:31 AM SHAPE CARVER HLA CROSSMATCH REPORT 01/18/2024 11:43 PM SHAPE CARVER HLA ANTIBODY SCREEN - SAB (CLASS I AND CLASS II) Routine 01/18/2024 11:43 PM SHAPE [employer]VER HLA CROSSMATCH, ALLO STAT 01/18/2024 11:43 PM [employer] HLA ANTIBODY SCREEN BY PRA OR SAB PER SCHEDULE (CLASS I AND CLASS II) STAT 01/18/2024 11:43 PM [employer] XR CHEST 1 VIEW ED Urgent/IP Urgent 01/18/2024 11:41 PM [employer] EGFR STAT 01/18/2024 10:50 PM [employer] DIFFERENTIAL AUTO STAT 01/18/2024 10:50 PM [employer] HLA ANTIBODY SCREEN BY PRA STAT 01/18/2024 10:50 PM [employer] IRON PROFILE W/ IBC Routine 01/18/2024 10:50 PM [employer] LIPID PANEL Routine 01/18/2024 10:50 PM [employer] URIC ACID Routine 01/18/2024 10:50 PM [employer] HEMOGLOBIN A1C Routine 01/18/2024 10:50 PM [employer] FERRITIN Routine 01/18/2024 10:50 PM [employer] TYPE AND SCREEN STAT 01/18/2024 10:50 PM [employer] PHOSPHORUS STAT 01/18/2024 10:50 PM [employer] PROTIME-INR STAT 01/18/2024 10:50 PM [employer] COMPREHENSIVE METABOLIC PANEL STAT 01/18/2024 10:50 PM [employer] CBC WITH AUTO DIFFERENTIAL STAT 01/18/2024 10:50 PM [employer] APTT STAT 01/18/2024 10:50 PM [employer] HIV 1/2 ANTIBODY PLUS P24 ANTIGEN Routine 01/18/2024 10:50 PM [employer] HEPATITIS C RNA, QUANTITATIVE, PCR Routine 01/18/2024 10:50 PM [employer] HEPATITIS C ANTIBODY Routine 01/18/2024 10:50 PM [employer] HEPATITIS B SURFACE ANTIGEN Routine 01/18/2024 10:50 PM [employer] HEPATITIS B SURFACE ANTIBODY (IMMUNE STATUS) Routine 01/18/2024 10:50 PM [employer] HEPATITIS B CORE ANTIBODY, TOTAL Routine 01/18/2024 10:[address] CHEST WO CONTRAST F/U LUNG SCREEN PROTOCOL Schedule Routine, Read Routine (OP Routine) 01/13/2024 3:25 PM [employer] Ab[address] CT lung screening PSA SCREEN Routine 09/17/2023 7:43 AM CDT ESRD (end stage renal disease) (CMS/HCC) (HCC) Pre-transplant evaluation for kidney transplant from Last 3 Months or Most Recently Relevant to Health Maintenance Allergies No known active allergies Medications hydrOXYzine [...] before and after each catheter use. Max 8. Dispense #40 10mL syringes 100 mL Active [...] blood glucose diagnostic stripIndications :-donor kidney transplant recipient,[facility] d-induced hyperglycemia 1 strip QID with meals and at bedtime. Max 100 each 11 Active blood-glucose meter miscIndications: Steroid-induced hyperglycemia 1 [...] different from the original. Discharge Planning: Pharmacy: [facility] - [id number] in [place], [place] Specialty: [facility] Specialty Program Labs: [facility] Q-WEEKLY, FK; Q-MONTHLY BK; Q-3 ROUTINE (Exp 08/16/24) HH: [facility] Verbal Consent: Jonathan (spouse), Ramone (son), Liz ([id number]) Problem Noted Date Diagnosed Date Perinephric fluid [...] (01/07/2022): Added automatically from request for surgery [id number] Left knee pain 08/08/2021 Primary hypothyroidism 08/08/2021 Cellulitis of right lower extremity 05/02/2021 Coronary artery disease invo lving [facility] without angina pectoris 10/25/2020 Overview (10/25/2020): Added automatically from request for surgery [id number] Diabetes mellitus 06/12/2020 Mixed hyperlipidemia 06/12/2020 Assessment & Plan (10/15/2023 11:31 AM CDT): Hyperlipidemia chronic controlled. Continue current medical management. Lower extremity edema 07/07/2018 Hyperkalemia 03/15/2018 Volume overload 03/15/2018 Anemia in stage 5 chronic ki dney disease, not on chronic dialysis 03/15/2018 ESRD (end stage renal disease) ([facility]) 018 Overview (01/25/2018): Added automatically from request for surgery [id number] Assessment & Plan (10/15/2023 11:28 AM CDT): End-stage renal disease. Continue dialysis pending renal transplant. LOLLY (renal osteodystrophy) 09/28/2017 Metabolic acidosis 09/28/2017 Essential hypertension 09/28/2017 Anemia in stage 4 chronic kidney disease 018 Stage 5 chronic kidney disease ([facility]) 018 Overview (03/10/2024): Added automatically from request for surgery [id number] Chronic renal failure, stage 4 (severe) ([facility] ) 06/15/2017 Chronic renal insufficiency, stage III (moderate ) 12/15/2016 Renal osteodystrophy 12/15/2016 Obesity 10/13/2016 Anemia in chronic kidney disease 10/13/2016 Hypertension 10/13/2016 Nephrotic syndrome 03/17/2013 Atherosclerosis of coronary artery 03/17/2013 Type 2 diabetes mellitus 03/17/2013 Restrictive ventilatory defect Immunizations Immunization Administration Dates Next Due Hep B Vaccine 10/17/2019,06/20/2019,05/16/2019 Hep B, Unspecified 04/18/2019, 9,01/17/2019,08/16,07/19/2018 Influenza, Quadrivalent, Spl it, Preservative Free, Intramuscular 12/22/2016 Influenza, Trivalent, IM (MDV) 11/08/2012 Influenza, Unspecified 12/26/2020 Quandoo (J&J) SARS-CoV-2 Vaccination 04/30/2020 Pneumococcal Conjugate PCV [...] materials from doctor or pharmacy Never 03/08/2024 C Utilities Answer Date Recorded In the past 12 months has e [employer] gas, oil, or water company threatened to [...] often do you attend chur ch or islam services? Never 02/22/2024 Do you belong to any clubs o r organizations such as voodoo groups, unions, fraternal or athletic groups, or [...] place to sleep or slept in a halfway (including now)? No 03/25/2023 Housing Stability Vital Sign Answer Ramesh e Recorded In the last 12 months, was t here a time when you were not able to pay the mortgage or rent on time? No 02/22/2024 In the past 12 months, how m any times have you moved where you were living? 0 02/22/2024 At any time in the past 12 m [facility], were you homeless or living in a halfway (including now)? No 02/22/2024 Personal Safety Answer [...] on file Legal Sex Male 3:24 AM SHAPE CARVER Gender Identity Male 11/30/2017 3:03 PM CDT Sexual Orientation Straight 06/05/2020 6: 53 AM CDT Last Filed Vital Signs Vital Sign Reading Time Taken Comments Blood Pressure 127/67 04/06/2024 12:54 PM SHAPE CARVER Pulse 74 04/06/2024 12:54 PM SHAPE CARVER Temperature 36.6 C (97.8 F) 04/06/2024 10:21 AM SHAPE CARVER Respiratory Rate 16 03/22/2024 10:08 AM SHAPE CARVER Oxygen Saturation 94% 04/06/2024 12:54 PM SHAPE CARVER Inhaled Oxygen Concentration - - Weight 117.9 kg (260 lb) 04/06/2024 12:54 PM SHAPE CARVER Height 190.5 cm (6' 3 ) 04/06/2024 12:54 PM SHAPE CARVER Body Mass Index 32.5 04/06/2024 12:54 PM SHAPE CARVER Results * (ABNORMAL) eGFR (04/19/2024 10:42 AM SHAPE CARVER) eGFR 24(L) >=60 mL/min/1. 73 m2 Comment: [...] reviewed 2020. Blood 04/19/2024 10:4 2 AM SHAPE CARVER 04/19/2024 11:14 AM SHAPE CARVER us Jack Morrison MD LAB BLOOD ORDERABLES Final R esult [facility] One [facility] Department [place] [address] * (ABNORMAL) Differential, auto (04/19/2024 10:42 AM SHAPE CARVER) [facility] Neutrophil abs 13.1(H) 1.5 - 6.5 K/cumm Imm gran abs 0.9(H) 0.0 - 0.1 K/cumm [facility] Lymphocyte abs 0.3(L) 0.8 - 3.3 K/cumm [facility] Monocyte abs 0.6 0.2 - 0.8 K/cumm [facility] Eosinophil abs 0.0 0.0 - 0.5 K/cumm [facility] Basophil abs 0.1 0.0 - 0.1 K/cumm [facility] Neutrophil pct 87.8 % [facility] Comment: Interpretive Data Percent cell count reference ranges are not reported, since discordance with absolute values may lead to misinterpretation of CBC data. Current Interpretive Data was last revised on 2017. Imm gran pct 5.8 % [facility] Comment: Interpretive Data Percent cell count reference ranges are not reported, since discordance with absolute values may lead to misinterpretation of CBC data. Current Interpretive Data was last revised on 2017. Lymphocyte pct 1.8 % [facility] Comment: Interpretive Data Percent cell count reference ranges are not reported, since discordance with absolute values may lead to misinterpretation of CBC data. Current Interpretive Data was last revised on 2017. Monocyte pct 4.0 % [facility] Comment: Interpretive Data Percent cell count reference ranges are not reported, since discordance with absolute values may lead to misinterpretation of CBC data. Current Interpretive Data was last revised on 2017. Eosinophil pct 0.1 % [facility] Comment: Interpretive Data Percent cell count reference ranges are not reported, since discordance with absolute values may lead to misinterpretation of CBC data. Current Interpretive Data was last revised on 2017. Basophil pct 0.5 % [facility] Comment: Interpretive Data Percent cell count reference ranges are not reported, since discordance with absolute values may lead to misinterpretation of CBC data. Current Interpretive Data was last revised on 2017. Blood 04/19/2024 10:4 2 AM SHAPE CARVER 04/19/2024 11:14 AM SHAPE CARVER us Jack Morrison MD LAB BLOOD ORDERABLES Final R esult [facility] One [facility] [place] [address] * (ABNORMAL) CBC with auto differential (04/19/2024 10:42 AM SHAPE CARVER) WBC 14.9(H) 3.8 - 9.9 K/cumm Hgb 11.6(L) 13.0 - 17.5 g/dL [facility] Hct 35.5(L) 38.9 - 50.3 % [facility] Plt 281 150 - 400 K/cumm [facility] MPV 10.2 9.1 - 12.3 fL [facility] RBC 3.79(L) 4.30 - 5.80 M/cumm [facility] MCV 93.7 81.3 - 96.4 fL [facility] MCH 30.6 27.1 - 33.3 pg [facility] MCHC 32.7 32.3 - 35.7 g/dL [facility] RDW CV 13.5 11.1 - 14.9 % [facility] RDW SD 45.1 35.7 - 48.1 fL [facility] NRBC abs 0.00 0.00 - 0.01 K/cumm [facility] Blood 04/19/2024 10:4 2 AM SHAPE CARVER 04/19/2024 11:14 AM SHAPE CARVER us Jack Morrison MD LAB BLOOD ORDERABLES Final R esult [facility] One [facility] Department [place] [address] * (ABNORMAL) Renal function panel (04/19/2024 10:42 AM SHAPE CARVER) Sodium 138 135 - 145 mmol/L Potassium, pl 4.7 3.3 - 4.9 mmol/L [facility] Chloride 99 97 - 110 mmol/L [facility] CO2 29 22 - 32 mmol/L [facility] Anion gap 10 2 - 15 mmol/L [facility] BUN 38(H) 6 - 25 mg/dL [facility] Creatinine 2.80(H) 0.80 - 1.30 mg/dL [facility] Glucose 125 70 - 199 mg/dL [facility] Comment: Interpretive Data Fasting glucose >/= [...] 2022. Calcium 10.7(H) 8.5 - 10.3 mg/dL [facility] Phosphorus, pl 2.5 2.3 - 4.5 mg/dL [facility] Albumin 3.9 3.5 - 5.0 g/dL [facility] Blood 04/19/2024 10:4 2 AM SHAPE CARVER 04/19/2024 11:14 AM SHAPE CARVER us Jack Morrison MD LAB BLOOD ORDERABLES Final R esult [facility] One [facility] Department [place] [address] * (ABNORMAL) Differential, auto (04/06/2024 11:42 AM SHAPE CARVER) Neutrophil abs 9.1(H) 1.5 - 6.5 K/cumm Imm gran abs 0.7(H) 0.0 - 0.1 K/cumm [facility] Lymphocyte abs 0.2(L) 0.8 - 3.3 K/cumm [facility] Monocyte abs 0.5 0.2 - 0.8 K/cumm [facility] Eosinophil abs 0.0 0.0 - 0.5 K/cumm [facility] Basophil abs 0.0 0.0 - 0.1 K/cumm [facility] Neutrophil pct 86.6 % [facility] Comment: Interpretive Data Percent cell count reference ranges are not reported, since discordance with absolute values may lead to misinterpretation of CBC data. Current Interpretive Data was last revised on 2017. Imm gran pct 6.5 % [facility] Comment: Interpretive Data Percent cell count reference ranges are not reported, since discordance with absolute values may lead to misinterpretation of CBC data. Current Interpretive Data was last revised on 2017. Lymphocyte pct 1.4 % [facility] Comment: Interpretive Data Percent cell count reference ranges are not reported, since discordance with absolute values may lead to misinterpretation of CBC data. Current Interpretive Data was last revised on 2017. Monocyte pct 4.9 % [facility] Comment: Interpretive Data Percent cell count reference ranges are not reported, since discordance with absolute values may lead to misinterpretation of CBC data. Current Interpretive Data was last revised on 2017. Eosinophil pct 0.3 % [facility] Comment: Interpretive Data Percent cell count reference ranges are not reported, since discordance with absolute values may lead to misinterpretation of CBC data. Current Interpretive Data was last revised on 2017. Basophil pct 0.3 % [facility] Comment: Interpretive Data Percent cell count reference ranges are not reported, since discordance with absolute values may lead to misinterpretation of CBC data. Current Interpretive Data was last revised on 2017. Blood 04/06/2024 11:4 2 AM SHAPE CARVER 04/06/2024 11:58 AM SHAPE CARVER us Aurea Fine ENVIRONMENTAL SCIENCE PROFESSOR LAB BLOOD ORDERABLES Final Result [facility] One [facility] Department [place] [address] * (ABNORMAL) CBC with auto differential (04/06/2024 11:42 AM SHAPE CARVER) WBC 10.5(H) 3.8 - 9.9 K/cumm Hgb 11.5(L) 13.0 - 17.5 g/dL [facility] Hct 34.3(L) 38.9 - 50.3 % [facility] Plt 251 150 - 400 K/cumm [facility] MPV 10.1 9.1 - 12.3 fL [facility] RBC 3.60(L) 4.30 - 5.80 M/cumm [facility] MCV 95.3 81.3 - 96.4 fL [facility] MCH 31.9 27.1 - 33.3 pg [facility] MCHC 33.5 32.3 - 35.7 g/dL [facility] RDW CV 12.8 11.1 - 14.9 % [facility] RDW SD 44.4 35.7 - 48.1 fL [facility] NRBC abs 0.00 0.00 - 0.01 K/cumm [facility] Blood 04/06/2024 11:4 2 AM SHAPE CARVER 04/06/2024 11:58 AM SHAPE CARVER Aurea Fine ENVIRONMENTAL SCIENCE PROFESSOR LAB BLOOD ORDERABLES Final Result [facility] One [facility] Department [place] [address] * (ABNORMAL) Respiratory pathogen panel Nasopharyngeal (04/06/2024 11:41 AM SHAPE CARVER) [facility] Influenza A RNA Not Detected Not Detected Influenza B RNA Not Detected Not Detected [facility] RSV RNA Not Detected Not Detected [facility] COVID-19 RNA Not Detected Not Detected [facility] Coronavirus 229E RNA Not Detected Not Detected [facility] Coronavirus HKU1 RNA Not Detected Not Detected [facility] Coronavirus NL63 RNA Not Detected Not Detected [facility] Coronavirus OC43 RNA Not Detected Not Detected [facility] Adenovirus DNA Not Detected Not Detected [facility] Metapneumovirus RNA Not Detected Not Detected [facility] Rhinovirus/Enterov irus RNA Detected(A) Not Detected [facility] Parainfluenza 1 RNA Not Detected Not Detected [facility] Parainfluenza 2 RNA Not Detected Not Detected [facility] Parainfluenza 3 RNA Not Detected Not Detected [facility] Parainfluenza 4 RNA Not Detected Not Detected [facility] B. pertussis DNA Not Detected Not Detected [facility] B. parapertussis DNA Not Detected Not Detected [facility] C. pneumoniae DNA Not Detected Not Detected [facility] M. pneumoniae DNA Not Detected Not Detected [facility] Nasopharyngeal 04/06/2024 11 :41 AM SHAPE CARVER 04/06/2024 12:10 PM SHAPE CARVER Narrative [facility] - 04/06/2024 1:15 PM SHAPE CARVER Is the Patient experiencing symptoms consistent with COVID?->Unknown Surveillance testing for transplant patient?->No Interpretive Data The ZeaVisionArray Respiratory Panel (RP2.1) assay is a multiplexed [...] assay has FDA clearance for testing of ENVIRONMENTAL SCIENCE PROFESSOR swabs. The performance of additional specimen types has been assessed by the performing laboratory. The performance characteristics of this assay have been determined by [facility]. Current interpretive data was last revised on 21. Aurea Fine ENVIRONMENTAL SCIENCE PROFESSOR LAB MICROBIOLOGY - GENERAL ORDERABLES Final Result [facility] Department [place] [address] * XR Chest PA Lateral 2 Views (04/06/2024 11:28 AM SHAPE CARVER) Anatomical Region Laterality Modality Body, Chest N/A Computed Radiogr aphy 04/06/2024 11:4 3 AM SHAPE CARVER Impressions 04/06/2024 6:32 PM SHAPE CARVER FINDINGS/IMPRESSION: Sternotomy plates and wires overlie the chest. Lungs are clear. No pleural effusion or pneumothorax. Cardiac mediastinal silhouette is stable when compared to prior radiograph. Dictated by: Giorgi Rincon MD The radiology attending physician has personally reviewed this study, and had reviewed and/or edited this written report and agrees with it. Electronically signed by: Larry Red M.D. Narrative 04/06/2024 6:32 PM SHAPE CARVER EXAMINATION: XR CHEST PA LATERAL 2 VIEWS [...] signed by: Larry Red M.D. Aurea Fine ENVIRONMENTAL SCIENCE PROFESSOR IMG XR PROCEDURES Final Re sult * (ABNORMAL) POCT urinalysis dipstick (04/06/2024 10:35 AM SHAPE CARVER) Glucose, ur, POC Negative Negative MG/DL Bilirubin, ur, POC Negative Negative, Small, Moderate, Large Ketones, ur, POC Negative Negative Specific Perkins, POC 1.025 1.003 - 1.030 Blood, ur, POC Negative Negative pH, ur, POC 5.5 5.0 - 8.0 Protein, ur, POC 1+(A) Negative Urobilinogen, urine, POC 0.2 0.2 - 1.0 mg/dL Nitrite, ur, POC Negative Negative Leukocytes, ur, POC 1+(A) Negative Lot Number [id number] Urine 04/06/2024 10:3 5 AM SHAPE CARVER Aurea Fine ENVIRONMENTAL SCIENCE PROFESSOR POINT OF CARE TEST ORDERAB LES Final Result * BK virus, DNA, quantitative Blood (04/05/2024 9:00 AM SHAPE CARVER) Pathologist [facility] BK Virus DNA, PCR Negative Negative IU/mL [facility] - 01 Comment: No BK DNA detected. The linear range of the assay is 22 - 100,000,000 IU/mL. Blood 04/05/2024 9:00 AM SHAPE CARVER 04/05/2024 Narrative [facility] - 04/07/2024 2:09 PM SHAPE CARVER Performed at: [address] [place] [id number] Checking Department Supervisor: Agustina Tyler MD, Phone: [phone] Jack Morrison MD LAB MICROBIOLOGY - GENERAL O RDERABLES Final Result [facility] - * Tacrolimus level trough (04/05/2024 8:59 AM SHAPE CARVER) Pathologist [facility] Tacrolimus (FK506), Blood 11.7 5.0 - 20.0 [...] reference interval change Blood 04/05/2024 8:59 AM SHAPE CARVER 04/05/2024 Narrative [facility] - 04/07/2024 8:07 PM SHAPE CARVER Test(s) [id number] (FK506), Blood was developed and its performance characteristics determined by [facility]. It has not been cleared or approved by the Food and Drug Administration. Performed at: - [address] [id number] Checking Department Supervisor: Agustina Tyler MD, Phone: [phone] us Jack Morrison MD LAB BLOOD ORDERABLES Final R esult [facility] - 01 * (ABNORMAL) Renal function panel (04/05/2024 8:58 AM SHAPE CARVER) Pathologist [facility] Glucose 129(H) 70 - 99 mg/dL [facility] [...] [facility] - 01 Blood 04/05/2024 8:58 AM SHAPE CARVER 04/05/2024 Narrative [facility] - 04/06/2024 4:07 AM SHAPE CARVER Performed at: [address] [id number] Checking Department Supervisor: Prabhjot Trammell PhD, Phone: [phone] us Jack Morrison MD LAB BLOOD ORDERABLES Final R esult [facility] - 01 * (ABNORMAL) Renal function panel (04/05/2024 8:57 AM SHAPE CARVER) Pathologist [facility] Glucose 124(H) 70 - 99 mg/dL [facility] [...] [facility] - 01 Blood 04/05/2024 8:57 AM SHAPE CARVER 04/05/2024 Narrative [facility] - 04/06/2024 4:07 AM SHAPE CARVER Performed at: [address] [place] [address] [id number] Checking Department Supervisor: Prabhjot Trammell PhD, Phone: [phone] us Jack Morrison MD LAB BLOOD ORDERABLES Final R esult [facility] - 01 * BK virus, DNA, quantitative Blood (03/29/2024 11:28 AM SHAPE CARVER) Pathologist [facility] BK Virus DNA, PCR Negative Negative IU/mL [facility] - 01 Comment: No BK DNA detected. The linear range of the assay is 22 - 100,000,000 IU/mL. Blood 03/29/2024 11:2 8 AM SHAPE CARVER 03/29/2024 Narrative [facility] - 03/31/2024 2:09 PM SHAPE CARVER Performed at: [address] [place] [id number] Checking Department Supervisor: Agustina Tyler MD, Phone: [phone] Jack Morrison MD LAB MICROBIOLOGY - GENERAL O RDERABLES Final Result Performing Organization Address [facility] de Phone Number [facility] - * Tacrolimus level trough (03/29/2024 11:27 AM SHAPE CARVER) [facility] Tacrolimus (FK506), Blood 4.6 2.0 - 20.0 ng/mL [facility] - 01 Comment: Trough (immediately following transplant) 15.0 Trough (steady state, 2 weeks or more after transplant): 3.0 - 8.0 Performed by LC-MS/MS technology. Effective April 02, 2024 the reference interval for Tacrolimus will be updated to: 5.0 - 20.0 ng/mL Blood 03/29/2024 11:2 7 AM SHAPE CARVER 03/29/2024 Narrative [facility] - 04/01/2024 4:09 PM SHAPE CARVER Test(s) [id number] (FK506), Blood was developed and its performance characteristics determined by [employer]. It has not been cleared or approved by the Food and Drug Administration. Performed at: [address] [place] [address] [id number] Checking Department Supervisor: Agustina Tyler MD, Phone: [phone] Jack Morrison MD LAB BLOOD ORDERABLES Final R esult Performing Organization Address [facility] de Phone Number [facility] - * (ABNORMAL) CBC with auto differential (03/29/2024 11:26 AM SHAPE CARVER) [facility] WBC 4.7 3.4 - 10.8 x10E3/uL [facility] [...] was performed. Blood 03/29/2024 11:2 6 AM SHAPE CARVER 03/29/2024 Narrative [facility] - 03/30/2024 3:07 AM SHAPE CARVER Performed at: - [facility] [id number] Checking Department Supervisor: Prabhjot Trammell PhD, Phone: [phone] us Jack Morrison MD LAB BLOOD ORDERABLES Final R esult [facility] - * (ABNORMAL) Renal function panel (03/29/2024 11:25 AM SHAPE CARVER) Glucose 113(H) 70 - 99 mg/dL [facility] [...] - 01 Blood 03/29/2024 11:2 5 AM SHAPE CARVER 03/29/2024 Narrative [facility] - 03/30/2024 2:09 PM SHAPE CARVER Performed at: [address] [id number] Checking Department Supervisor: Prabhjot Trammell PhD, Phone: [phone] us Jack Morrison MD LAB BLOOD ORDERABLES Final R esult [facility] - * BK virus, DNA, quantitative Blood (03/23/2024 12:07 PM SHAPE CARVER) [facility] BK Virus DNA, PCR Negative Negative IU/mL [facility] - Comment: No BK DNA detected. The linear range of the assay is 22 - 100,000,000 IU/mL. Blood 03/23/2024 12:0 7 PM SHAPE CARVER 03/23/2024 Narrative [facility] - 03/25/2024 12:09 PM SHAPE CARVER Performed at: [address] [id number] Checking Department Supervisor: Agustina Tyler MD, Phone: [phone] Jack Morrison MD LAB MICROBIOLOGY - GENERAL O RDERABLES Final Result Performing Organization Address [facility] de Phone Number [facility] - 01 * Tacrolimus level trough (03/23/2024 12:06 PM SHAPE CARVER) [facility] Tacrolimus (FK506), Blood 5.9 2.0 - 20.0 ng/mL [facility] - Comment: Trough (immediately following transplant) 15.0 Trough (steady state, 2 weeks or more after transplant): 3.0 - 8.0 Performed by LC-MS/MS technology. Effective April 02, 2024 the reference interval for Tacrolimus will be updated to: 5.0 - 20.0 ng/mL Blood 03/23/2024 12:0 6 PM SHAPE CARVER 03/23/2024 Narrative [facility] - 03/26/2024 8:07 PM SHAPE CARVER Test(s) [id number] (FK506), Blood was developed and its performance characteristics determined by [facility]. It has not been cleared or approved by the Food and Drug Administration. Performed at: [address] [id number] Checking Department Supervisor: Agustina Tyler MD, Phone: [phone] Jack Morrison MD LAB BLOOD ORDERABLES Final R esult Performing Organization Address [facility] de Phone Number [facility] - 01 * (ABNORMAL) CBC with auto differential (03/23/2024 12:05 PM SHAPE CARVER) [facility] WBC 7.0 3.4 - 10.8 x10E3/uL [facility] [...] clinical significance.) Blood 03/23/2024 12:0 5 PM SHAPE CARVER 03/23/2024 Narrative [facility] - 03/24/2024 6:09 AM SHAPE CARVER Performed at: - [address] [id number] Checking Department Supervisor: Prabhjot Trammell PhD, Phone: [phone] us Jack Morrison MD LAB BLOOD ORDERABLES Final R esult [facility] - * (ABNORMAL) Renal function panel (03/23/2024 12:04 PM SHAPE CARVER) [facility] Glucose 115(H) 70 - 99 mg/dL [facility] [...] - 01 Blood 03/23/2024 12:0 4 PM SHAPE CARVER 03/23/2024 Narrative [facility] - 03/24/2024 9:36 AM SHAPE CARVER [place]formed at: [place] [address] Checking Department Supervisor: Prabhjot Trammell PhD, Phone: [phone] us Jack Morrison MD LAB BLOOD ORDERABLES Final R esult [facility] [facility] - 01 * IR Inject Abscess Catheter (03/22/2024 10:05 AM SHAPE CARVER) Anatomical Region Laterality Modality Body N/A Radio Fluoroscop y 03/22/2024 10:1 6 AM SHAPE CARVER Impressions 03/22/2024 10:16 AM SHAPE CARVER Resolved collection with no evidence of fistula to adjacent structures. Catheter was removed. PLAN: Advise patient to monitor for any new symptoms. He will follow up with us as needed. If questions arise, please contact us by calling [phone]. Electronically signed by: CARRI Wilkins 03/22/2024 10:16 AM SHAPE CARVER EXAMINATION: DRAINAGE CATHETER EVALUATION AND REMOVAL HISTORY: [...] None TECHNIQUE: Prior to beginning the procedure, [place] Protocol was used to confirm the patient's identity and planned procedure. Fluoroscopy time has been recorded in the electronic medical record. After obtaining a access nurse image, the catheter was injected with dilute [...] None TECHNIQUE: Prior to beginning the procedure, [place] Protocol was used to confirm the patient's identity and planned procedure. Fluoroscopy time has been recorded in the electronic medical record. After obtaining a access nurse image, the catheter was injected with dilute [...] questions arise, please contact us by calling [phone]. Electronically signed by: Radha Barrios PA-C Flori LEE IMG IR PROCEDURES Final Res ult * Lipid panel (03/15/2024 9:49 AM SHAPE CARVER) Pathologist [facility] Cholesterol 106 100 - 199 mg/dL [facility] - 01 Triglycerides 88 0 - 149 mg/dL [facility] - 01 HDL Cholesterol 44 >39 mg/dL [facility] - 01 VLDL 17 5 - 40 mg/dL [facility] - 01 LDL, calculated 45 0 - 99 mg/dL [facility] - 01 Blood 03/15/2024 9:49 AM SHAPE CARVER 03/15/2024 Narrative [facility] - 03/16/2024 3:07 AM SHAPE CARVER Performed at: [address] [id number] Checking Department Supervisor: Prabhjot Trammell PhD, Phone: [phone] Jack Morrison MD LAB BLOOD ORDERABLES Final R esult Performing Organization Address [facility] de Phone Number [facility] - [facility] * BK virus, DNA, quantitative Blood (03/15/2024 9:48 AM SHAPE CARVER) [facility] BK Virus DNA, PCR Negative Negative IU/mL [facility] - 01 Comment: No BK DNA detected. The linear range of the assay is 22 - 100,000,000 IU/mL. Blood 03/15/2024 9:48 AM SHAPE CARVER 03/15/2024 Narrative [facility] - 03/18/2024 12:09 PM SHAPE CARVER Performed at: [facility] [id number] Checking Department Supervisor: Agustina Tyler MD, Phone: [phone] Jack Morrison MD LAB MICROBIOLOGY - GENERAL O RDERABLES Final Result Performing Organization Address [facility] de Phone Number [facility] - 01 * (ABNORMAL) Hepatic function panel (03/15/2024 9:48 AM SHAPE CARVER) Pathologist [facility] Protein, sr 6.4 6.0 - 8.5 g/dL [...] [facility] - 01 Blood 03/15/2024 9:48 AM SHAPE CARVER 03/15/2024 Narrative [facility] - 03/16/2024 4:07 AM SHAPE CARVER Performed at: [address] [id number] Checking Department Supervisor: Prabhjot Trammell PhD, Phone: [phone] us Jack Morrison MD LAB BLOOD ORDERABLES Final R esult Performing Organization Address [facility] de Phone Number [facility] - 01 * Tacrolimus level trough (03/15/2024 9:47 AM SHAPE CARVER) Pathologist [facility] Tacrolimus (FK506), Blood 4.4 2.0 - 20.0 ng/mL [facility] - 01 Comment: Trough (immediately following transplant) 15.0 Trough (steady state, 2 weeks or more after transplant): 3.0 - 8.0 Performed by LC-MS/MS technology. Effective April 02, 2024 the reference interval for Tacrolimus will be updated to: 5.0 - 20.0 ng/mL Blood 03/15/2024 9:47 AM SHAPE CARVER 03/15/2024 Narrative [facility] - 03/19/2024 12:08 PM SHAPE CARVER Test(s) [id number] (FK506), Blood was developed and its performance characteristics determined by [facility]. It has not been cleared or approved by the Food and Drug Administration. Performed at: - [facility] [address] [id number] Checking Department Supervisor: Agustina Tyler MD, Phone: [phone] us Jack Morrison MD LAB BLOOD ORDERABLES Final R esult [facility] - 01 * (ABNORMAL) CBC with auto differential (03/15/2024 9:47 AM SHAPE CARVER) WBC 5.4 3.4 - 10.8 x10E3/uL [facility] [...] [facility] - 01 Blood 03/15/2024 9:47 AM SHAPE CARVER 03/15/2024 Narrative [facility] - 03/16/2024 3:07 AM SHAPE CARVER Performed at: [address] [id number] Checking Department Supervisor: Prabhjot Trammell PhD, Phone: [phone] us Jack Morrison MD LAB BLOOD ORDERABLES Final R esult [facility] * (ABNORMAL) Renal function panel (03/15/2024 9:46 AM SHAPE CARVER) Pathologist [facility] Glucose 115(H) 70 - 99 mg/dL [facility] [...] [facility] - 01 Blood 03/15/2024 9:46 AM SHAPE CARVER 03/15/2024 Narrative [facility] - 03/16/2024 4:07 AM SHAPE CARVER Performed at: [address] [id number] Checking Department Supervisor: Prabhjot Trammell PhD, Phone: [phone] Jack Morrison MD LAB BLOOD ORDERABLES Final R esult [facility] - [facility] * (ABNORMAL) POCT urinalysis dipstick (03/10/2024 8:47 AM SHAPE CARVER) [facility] Color, Urine, POC Yellow Clarity, ur, POC Clear Clear Glucose, ur, POC Negative Negative MG/DL Ketones, ur, POC Negative Negative Blood, ur, POC 3+(A) Negative pH, ur, POC 5.0 5.0 - 8.0 Protein, ur, POC Trace(A) Negative Nitrite, ur, POC Negative Negative Leukocytes, ur, POC Trace(A) Negative Lot Number 0 Urine 03/10/2024 8:47 AM SHAPE CARVER Roscoe Peck MD POINT OF CARE TEST ORDERABLES Final Result * BK virus PCR quantitative Blood (03/10/2024 8:21 AM SHAPE CARVER) [facility] BKV DNA result, pl Not Detected [facility] Comment: The quantifiable range of this assay is 21.5 IU/mL to 100,000,000 IU/mL (1.33 log IU/mL to 8.00 log IU/mL). Testing was performed by the WALDEMAR 6800 BKV Quantatitive Test version 2.0 ([employer] Testing performed at [facility] Current Interpretive Data was last revised on 2020. Blood 03/10/2024 8:21 AM SHAPE CARVER 03/10/2024 8:43 AM SHAPE CARVER us Jack Morrison MD LAB MICROBIOLOGY - GENERAL O RDERABLES Final Result [facility] [place] [address] [facility] * (ABNORMAL) eGFR (03/10/2024 8:21 AM SHAPE CARVER) [facility] eGFR 22(L) >=60 mL/min/1. 73 m2 Comment: [...] last reviewed 2020. Blood 03/10/2024 8:21 AM SHAPE CARVER 03/10/2024 8:42 AM SHAPE CARVER us Jack Morrison MD LAB BLOOD ORDERABLES Final R esult [facility] One [facility] Department [place] [address] * (ABNORMAL) Differential, auto (03/10/2024 8:21 AM SHAPE CARVER) Neutrophil abs 4.9 1.5 - 6.5 K/cumm Imm gran abs 0.0 0.0 - 0.1 K/cumm [facility] Lymphocyte abs 0.3(L) 0.8 - 3.3 K/cumm [facility] Monocyte abs 0.4 0.2 - 0.8 K/cumm [facility] Eosinophil abs 0.0 0.0 - 0.5 K/cumm [facility] Basophil abs 0.0 0.0 - 0.1 K/cumm [facility] Neutrophil pct 86.2 % [facility] Comment: Interpretive Data Percent cell count reference ranges are not reported, since discordance with absolute values may lead to misinterpretation of CBC data. Current Interpretive Data was last revised on 2017. Imm gran pct 0.7 % [facility] Comment: Interpretive Data Percent cell count reference ranges are not reported, since discordance with absolute values may lead to misinterpretation of CBC data. Current Interpretive Data was last revised on 2017. Lymphocyte pct 4.9 % [facility] Comment: Interpretive Data Percent cell count reference ranges are not reported, since discordance with absolute values may lead to misinterpretation of CBC data. Current Interpretive Data was last revised on 2017. Monocyte pct 7.2 % [facility] Comment: Interpretive Data Percent cell count reference ranges are not reported, since discordance with absolute values may lead to misinterpretation of CBC data. Current Interpretive Data was last revised on 2017. Eosinophil pct 0.3 % [facility] Comment: Interpretive Data Percent cell count reference ranges are not reported, since discordance with absolute values may lead to misinterpretation of CBC data. Current Interpretive Data was last revised on 2017. Basophil pct 0.7 % [facility] Comment: Interpretive Data Percent cell count reference ranges are not reported, since discordance with absolute values may lead to misinterpretation of CBC data. Current Interpretive Data was last revised on 2017. Blood 03/10/2024 8:21 AM SHAPE CARVER 03/10/2024 8:39 AM SHAPE CARVER us Jack Morrison MD LAB BLOOD ORDERABLES Final R esult [facility] One [facility] Department [place] [address] * (ABNORMAL) CBC with auto differential (03/10/2024 8:21 AM SHAPE CARVER) WBC 5.7 3.8 - 9.9 K/cumm Hgb 12.1(L) 13.0 - 17.5 g/dL [facility] Hct 36.1(L) 38.9 - 50.3 % [facility] Plt 220 150 - 400 K/cumm [facility] MPV 9.8 9.1 - 12.3 fL [facility] RBC 3.65(L) 4.30 - 5.80 M/cumm [facility] MCV 98.9(H) 81.3 - 96.4 fL [facility] MCH 33.2 27.1 - 33.3 pg [facility] MCHC 33.5 32.3 - 35.7 g/dL [facility] RDW CV 14.2 11.1 - 14.9 % [facility] RDW SD 52.4(H) 35.7 - 48.1 fL [facility] NRBC abs 0.00 0.00 - 0.01 K/cumm [facility] Blood 03/10/2024 8:21 AM SHAPE CARVER 03/10/2024 8:39 AM SHAPE CARVER Result [facility] Jack Morriosn MD LAB BLOOD ORDERABLES Final R esult Performing Organization Address [facility] de Phone Number [facility] [place] [address] * Tacrolimus level random (03/10/2024 8:21 AM SHAPE CARVER) Tacrolimus random 9.0 ng/mL Comment: Interpretive Data Testing performed by liquid chromatography-tandem mass spectrometry. Therapeutic concentrations vary depending on type of transplanted organ and time elapsed since transplant. Typical trough concentrations range from 5-15 ng/mL. This test was developed and its performance characteristics determined by the [facility] consistent with CLIA requirements. This test has not been cleared or approved by the US Food and Drug administration. Current interpretive data last reviewed 2019. Blood 03/10/2024 8:21 AM SHAPE CARVER 03/10/2024 8:39 AM SHAPE CARVER Jack Morrison MD LAB BLOOD ORDERABLES Final R esult Performing Organization Address [facility] de Phone Number [facility] [place] [address] * Magnesium (03/10/2024 8:21 AM SHAPE CARVER) Magnesium 2.0 1.4 - 2.5 mg/dL Blood 03/10/2024 8:21 AM SHAPE CARVER 03/10/2024 8:39 AM SHAPE CARVER us Jack Morrison MD LAB BLOOD ORDERABLES Final R esult [facility] Department [place] [address] * (ABNORMAL) Renal function panel (03/10/2024 8:21 AM SHAPE CARVER) Sodium 142 135 - 145 mmol/L Potassium, pl 5.1(H) 3.3 - 4.9 mmol/L [facility] Chloride 108 97 - 110 mmol/L [facility] CO2 24 22 - 32 mmol/L [facility] Anion gap 10 2 - 15 mmol/L [facility] BUN 49(H) 6 - 25 mg/dL [facility] Creatinine 3.09(H) 0.80 - 1.30 mg/dL [facility] Glucose 91 70 - 199 mg/dL [facility] Comment: Interpretive Data Fasting glucose >/= [...] 2022. Calcium 10.2 8.5 - 10.3 mg/dL [facility] Phosphorus, pl 3.2 2.3 - 4.5 mg/dL [facility] Albumin 3.8 3.5 - 5.0 g/dL [facility] Blood 03/10/2024 8:21 AM SHAPE CARVER 03/10/2024 8:39 AM SHAPE CARVER us Jack Morrison MD LAB BLOOD ORDERABLES Final R esult [facility] One [facility] Department [place] [address] * PET Stress Test (03/08/2024 3:12 PM SHAPE CARVER) Anatomical Region Laterality Modality N/A Positron Emissio n Tomography (PET) 03/08/2024 4:13 PM SHAPE CARVER Impressions 03/08/2024 4:13 PM SHAPE CARVER Asymptomatic and electrocardiographically normal pharmacologic stress test I personally supervised and was present throughout the stress test. Refer to for the separate report of the PET myocardial perfusion imaging results. Electronically signed by: Jose Ortiz M.D. Narrative 03/08/2024 4:13 PM SHAPE CARVER EXAMINATION: PHARMACOLOGIC STRESS TEST FOR CARDIAC PET [...] Myocardial Perfusion Imaging (Multiple) (03/08/2024 3:12 PM SHAPE CARVER) Anatomical Region Laterality Modality Body N/A Positron Emissio n Tomography (PET) 03/08/2024 3:55 PM SHAPE CARVER Impressions 03/08/2024 4:09 PM SHAPE CARVER 1. There is a uqyix-cy-rrdkijwv size and mild infarct involving the eovbg-dl-sdv-segments inferoseptally associated with moderate severe theresa-infarct ischemia during pharmacologic stress. 2. Marked left ventricular dilation and mild global hyopkinesis with severe hypo-to akinesis vcnxo-dn-rah-segments inferoseptally. 3. Flow quantification with reduced global [...] Jose Ortiz M.D. Narrative 03/08/2024 4:09 PM SHAPE CARVER EXAMINATION: MYOCARDIAL PET/CT PERFUSION IMAGING (STRESS/REST) DATE [...] was referred for PET MPI by his [facility] Department Supervisor (Dr. Merino). Evaluate for ischemia and/or microvascular [...] mild global hypokinesis. FINDINGS: There is a yhzyf-xu-koifvhkh size and mild infarct involving the bjcps-nu-lvv-segments inferoseptally associated with moderate severe theresa-infarct ischemia during pharmacologic stress. Gated post-stress images demonstrate marked left ventricular dilation and mild global hyopkinesis with severe hypo-to akinesis jztzv-rf-npx-segments inferoseptally and the left ventricular ejection fraction [...] was referred for PET MPI by his [facility] Department Supervisor (Dr. Merino). Evaluate for ischemia and/or microvascular [...] mild global hypokinesis. FINDINGS: There is a ibhcf-yv-xzxlgzmv size and mild infarct involving the hzzuk-mm-vcg-segments inferoseptally associated with moderate severe theresa-infarct ischemia during pharmacologic stress. Gated post-stress images demonstrate marked left ventricular dilation and mild global hyopkinesis with severe hypo-to akinesis vbcwg-fw-cto-segments inferoseptally and the left ventricular ejection fraction [...] multilevel spondylosis. IMPRESSION: 1. There is a lcmqx-qg-czqbxiqd size and mild infarct involving the ffzpn-oi-cem-segments inferoseptally associated with moderate severe theresa-infarct ischemia during pharmacologic stress. 2. Marked left ventricular dilation and mild global hyopkinesis with severe hypo-to akinesis gphog-xo-voj-segments inferoseptally. 3. Flow quantification with reduced global [...] Electronically signed by: Jose Ortiz M.D. us [place] Jadiel Merino MD IMG PET PROCEDURES Final R esult * IR Inject Abscess Catheter (03/08/2024 11:02 AM SHAPE CARVER) Anatomical Region Laterality Modality Body N/A Radio Fluoroscop y 03/08/2024 12:2 0 PM SHAPE CARVER Impressions 03/08/2024 12:20 PM SHAPE CARVER Improving and nearly resolved superficial collection without new fistula. Catheter was removed. Improving, but still present perinephric collection without new fistula. Catheter was kept in place. PLAN: Continue to monitor remaining catheter output as well as the patient's clinical condition. The catheter should not be flushed. The patient will follow-up with us in 2 weeks. If questions arise, please contact us by calling [phone]. Electronically signed by: Flori Strange PA-C Narrative 03/08/2024 12:20 PM SHAPE CARVER EXAMINATION: DRAINAGE CATHETER EVALUATION AND REMOVAL HISTORY: [...] required TECHNIQUE: Prior to beginning the procedure, [place] Protocol was used to confirm the patient's identity and planned procedure. Fluoroscopy time has been recorded in the electronic medical record. After obtaining a access nurse image, the catheter was injected with dilute [...] required TECHNIQUE: Prior to beginning the procedure, [place] Protocol was used to confirm the patient's identity and planned procedure. Fluoroscopy time has been recorded in the electronic medical record. After obtaining a access nurse image, the catheter was injected with dilute [...] questions arise, please contact us by calling [phone]. Electronically signed by: Flori Strange PA-C us Savanna Kwok MD IMG IR PROCEDURES Fin al Result * (ABNORMAL) eGFR (03/03/2024 9:40 AM SHAPE CARVER) eGFR 22(L) >=60 mL/min/1. 73 m2 Comment: [...] last reviewed 2020. Blood 03/03/2024 9:40 AM SHAPE CARVER 03/03/2024 12:52 PM SHAPE CARVER us Matthew Marti MD LAB BLOOD ORDERABLES Final Result [facility] One [facility] Department [place] [address] * (ABNORMAL) Differential, auto (03/03/2024 9:40 AM SHAPE CARVER) Neutrophil abs 6.0 1.5 - 6.5 K/cumm Imm gran abs 0.1 0.0 - 0.1 K/cumm [facility] Lymphocyte abs 0.3(L) 0.8 - 3.3 K/cumm [facility] Monocyte abs 0.4 0.2 - 0.8 K/cumm [facility] Eosinophil abs 0.0 0.0 - 0.5 K/cumm [facility] Basophil abs 0.0 0.0 - 0.1 K/cumm [facility] Neutrophil pct 89.0 % [facility] Comment: Interpretive Data Percent cell count reference ranges are not reported, since discordance with absolute values may lead to misinterpretation of CBC data. Current Interpretive Data was last revised on 2017. Imm gran pct 0.7 % [facility] Comment: Interpretive Data Percent cell count reference ranges are not reported, since discordance with absolute values may lead to misinterpretation of CBC data. Current Interpretive Data was last revised on 2017. Lymphocyte pct 3.7 % [facility] Comment: Interpretive Data Percent cell count reference ranges are not reported, since discordance with absolute values may lead to misinterpretation of CBC data. Current Interpretive Data was last revised on 2017. Monocyte pct 6.2 % [facility] Comment: Interpretive Data Percent cell count reference ranges are not reported, since discordance with absolute values may lead to misinterpretation of CBC data. Current Interpretive Data was last revised on 2017. Eosinophil pct 0.1 % [facility] Comment: Interpretive Data Percent cell count reference ranges are not reported, since discordance with absolute values may lead to misinterpretation of CBC data. Current Interpretive Data was last revised on 2017. Basophil pct 0.3 % [facility] Comment: Interpretive Data Percent cell count reference ranges are not reported, since discordance with absolute values may lead to misinterpretation of CBC data. Current Interpretive Data was last revised on 2017. Blood 03/03/2024 9:40 AM SHAPE CARVER 03/03/2024 12:40 PM SHAPE CARVER Matthew Marti MD LAB BLOOD ORDERABLES Final Result Performing Organization Address [facility] Phone Number [facility] Department [place] [address] * Tacrolimus level trough (03/03/2024 9:40 AM SHAPE CARVER) [facility] Tacrolimus trough 7.1 ng/mL Comment: Interpretive Data Testing performed by liquid chromatography-tandem mass spectrometry. Therapeutic concentrations vary depending on type of transplanted organ and time elapsed since transplant. Typical trough concentrations range from 5-15 ng/mL. This test was developed and its performance characteristics determined by the [facility] consistent with CLIA requirements. This test has not been cleared or approved by the US Food and Drug administration. Current interpretive data last reviewed 2019. Blood 03/03/2024 9:40 AM SHAPE CARVER 03/03/2024 12:40 PM SHAPE CARVER Matthew Marti MD LAB BLOOD ORDERABLES Final Result Performing Organization Address [facility] de Phone Number [facility] [place] [address] * (ABNORMAL) CBC with auto differential (03/03/2024 9:40 AM SHAPE CARVER) [facility] WBC 6.8 3.8 - 9.9 K/cumm Hgb 12.5(L) 13.0 - 17.5 g/dL [facility] Hct 37.1(L) 38.9 - 50.3 % [facility] Plt 166 150 - 400 K/cumm [facility] MPV 10.4 9.1 - 12.3 fL [facility] RBC 3.76(L) 4.30 - 5.80 M/cumm [facility] MCV 98.7(H) 81.3 - 96.4 fL [facility] MCH 33.2 27.1 - 33.3 pg [facility] MCHC 33.7 32.3 - 35.7 g/dL [facility] RDW CV 15.2(H) 11.1 - 14.9 % [facility] RDW SD 55.8(H) 35.7 - 48.1 fL [facility] NRBC abs 0.00 0.00 - 0.01 K/cumm [facility] Blood 03/03/2024 9:40 AM SHAPE CARVER 03/03/2024 12:40 PM SHAPE CARVER Matthew Marti MD LAB BLOOD ORDERABLES Final Result [facility] Department [place] [address] * Magnesium (03/03/2024 9:40 AM SHAPE CARVER) [facility] Magnesium 1.7 1.4 - 2.5 mg/dL Blood 03/03/2024 9:40 AM SHAPE CARVER 03/03/2024 12:40 PM SHAPE CARVER Matthew Marti MD LAB BLOOD ORDERABLES Final Result Performing Organization Address [facility] de Phone Number [facility] [place] [address] * (ABNORMAL) Renal function panel (03/03/2024 9:40 AM SHAPE CARVER) Pathologist [facility] Sodium 138 135 - 145 mmol/L Potassium, pl 5.3(H) 3.3 - 4.9 mmol/L [facility] Chloride 106 97 - 110 mmol/L [facility] CO2 22 22 - 32 mmol/L [facility] Anion gap 10 2 - 15 mmol/L [facility] BUN 42(H) 6 - 25 mg/dL [facility] Creatinine 3.02(H) 0.80 - 1.30 mg/dL [facility] Glucose 101 70 - 199 mg/dL [facility] Comment: Interpretive Data Fasting glucose >/= [...] 2022. Calcium 9.7 8.5 - 10.3 mg/dL [facility] Phosphorus, pl 2.8 2.3 - 4.5 mg/dL [facility] Albumin 3.8 3.5 - 5.0 g/dL [facility] Blood 03/03/2024 9:40 AM SHAPE CARVER 03/03/2024 12:40 PM SHAPE CARVER us Matthew Marti MD LAB BLOOD ORDERABLES Final Result [facility] Department [place] [address] * (ABNORMAL) eGFR (03/01/2024 8:00 AM SHAPE CARVER) eGFR 23(L) >=60 mL/min/1. 73 m2 Comment: [...] last reviewed 2020. Blood 03/01/2024 8:00 AM SHAPE CARVER 03/01/2024 12:38 PM SHAPE CARVER us Rosalie Velásquez [employer]MENTAL SCIENCE PROFESSOR LAB BLOOD ORDERABLES Final Result [facility] Department [place] [address] * (ABNORMAL) Differential, auto (03/01/2024 8:00 AM SHAPE CARVER) Neutrophil abs 3.4 1.5 - 6.5 K/cumm Imm gran abs 0.0 0.0 - 0.1 K/cumm [facility] Lymphocyte abs 0.4(L) 0.8 - 3.3 K/cumm [facility] Monocyte abs 0.3 0.2 - 0.8 K/cumm [facility] Eosinophil abs 0.0 0.0 - 0.5 K/cumm [facility] Basophil abs 0.0 0.0 - 0.1 K/cumm [facility] Neutrophil pct 81.3 % [facility] Comment: Interpretive Data Percent cell count reference ranges are not reported, since discordance with absolute values may lead to misinterpretation of CBC data. Current Interpretive Data was last revised on 2017. Imm gran pct 1.0 % [facility] Comment: Interpretive Data Percent cell count reference ranges are not reported, since discordance with absolute values may lead to misinterpretation of CBC data. Current Interpretive Data was last revised on 2017. Lymphocyte pct 8.7 % [facility] Comment: Interpretive Data Percent cell count reference ranges are not reported, since discordance with absolute values may lead to misinterpretation of CBC data. Current Interpretive Data was last revised on 2017. Monocyte pct 7.0 % [facility] Comment: Interpretive Data Percent cell count reference ranges are not reported, since discordance with absolute values may lead to misinterpretation of CBC data. Current Interpretive Data was last revised on 2017. Eosinophil pct 1.0 % [facility] Comment: Interpretive Data Percent cell count reference ranges are not reported, since discordance with absolute values may lead to misinterpretation of CBC data. Current Interpretive Data was last revised on 2017. Basophil pct 1.0 % [facility] Comment: Interpretive Data Percent cell count reference ranges are not reported, since discordance with absolute values may lead to misinterpretation of CBC data. Current Interpretive Data was last revised on 2017. Blood 03/01/2024 8:00 AM SHAPE CARVER 03/01/2024 12:32 PM SHAPE CARVER Rosalie Velásquez ENVIRONMENTAL SCIENCE PROFESSOR LAB BLOOD ORDERABLES Final Result Performing Organization Address [facility] de Phone Number [facility] [place] [address] * Tacrolimus level trough (03/01/2024 8:00 AM SHAPE CARVER) [facility] Tacrolimus trough 8.7 ng/mL Comment: Interpretive Data Testing performed by liquid chromatography-tandem mass spectrometry. Therapeutic concentrations vary depending on type of transplanted organ and time elapsed since transplant. Typical trough concentrations range from 5-15 ng/mL. This test was developed and its performance characteristics determined by the [facility] consistent with CLIA requirements. This test has not been cleared or approved by the US Food and Drug administration. Current interpretive data last reviewed 2019. Blood 03/01/2024 8:00 AM SHAPE CARVER 03/01/2024 12:32 PM SHAPE CARVER Rosalie Velásquez ENVIRONMENTAL SCIENCE PROFESSOR LAB BLOOD ORDERABLES Final Result Performing Organization Address [facility] de Phone Number [facility] [place] [address] * (ABNORMAL) CBC with auto differential (03/01/2024 8:00 AM SHAPE CARVER) [facility] WBC 4.2 3.8 - 9.9 K/cumm Hgb 12.3(L) 13.0 - 17.5 g/dL [facility] Hct 36.5(L) 38.9 - 50.3 % [facility] Plt 151 150 - 400 K/cumm [facility] MPV 10.2 9.1 - 12.3 fL [facility] RBC 3.66(L) 4.30 - 5.80 M/cumm [facility] MCV 99.7(H) 81.3 - 96.4 fL [facility] MCH 33.6(H) 27.1 - 33.3 pg [facility] MCHC 33.7 32.3 - 35.7 g/dL [facility] RDW CV 15.7(H) 11.1 - 14.9 % [facility] RDW SD 58.0(H) 35.7 - 48.1 fL [facility] NRBC abs 0.00 0.00 - 0.01 K/cumm [facility] Blood 03/01/2024 8:00 AM SHAPE CARVER 03/01/2024 12:32 PM SHAPE CARVER Rosalie Velásquez ENVIRONMENTAL SCIENCE PROFESSOR LAB BLOOD ORDERABLES Final Result Performing Organization Address [facility]/ZIP Co de Phone Number [facility] Department [place] [address] * Magnesium (03/01/2024 8:00 AM SHAPE CARVER) [facility] Magnesium 1.9 1.4 - 2.5 mg/dL Blood 03/01/2024 8:00 AM SHAPE CARVER 03/01/2024 12:31 PM SHAPE CARVER Rosalie Velásquez ENVIRONMENTAL SCIENCE PROFESSOR LAB BLOOD ORDERABLES Final Result Performing Organization Address [facility]/ZIP Co de Phone Number [facility] [place] [address] * (ABNORMAL) Renal function panel (03/01/2024 8:00 AM SHAPE CARVER) Pathologist [facility] Sodium 140 135 - 145 mmol/L Potassium, pl 5.4(H) 3.3 - 4.9 mmol/L [facility] Chloride 106 97 - 110 mmol/L [facility] CO2 22 22 - 32 mmol/L [facility] Anion gap 12 2 - 15 mmol/L [facility] BUN 39(H) 6 - 25 mg/dL [facility] Creatinine 2.94(H) 0.80 - 1.30 mg/dL [facility] Glucose 92 70 - 199 mg/dL [facility] Comment: Interpretive Data Fasting glucose >/= [...] 2022. Calcium 10.2 8.5 - 10.3 mg/dL [facility] Phosphorus, pl 2.8 2.3 - 4.5 mg/dL [facility] Albumin 3.8 3.5 - 5.0 g/dL [facility] Blood 03/01/2024 8:00 AM SHAPE CARVER 03/01/2024 12:31 PM SHAPE CARVER us Rosalie Velásquez NP LAB BLOOD ORDERABLES Final Result [facility] One [facility] Department [place] [address] * BK virus, DNA, quantitative Blood (02/26/2024 8:59 AM SHAPE CARVER) [facility] BK Virus DNA, PCR Negative Negative IU/mL [facility] - 01 Comment: No BK DNA detected. The linear range of the assay is 22 - 100,000,000 IU/mL. Blood 02/26/2024 8:59 AM SHAPE CARVER 02/26/2024 Narrative [facility] - 02/29/2024 2:08 PM SHAPE CARVER Performed at: [address] [place], [place] [id number] Checking Department Supervisor: Agustina Tyler MD, Phone: [phone] us Jack Morrison MD LAB MICROBIOLOGY - GENERAL O RDERABLES Final Result Performing Organization Address [facility] de Phone Number [facility] * Tacrolimus level trough (02/26/2024 8:59 AM SHAPE CARVER) Pathologist [facility] Tacrolimus (FK506), Blood 8.4 2.0 - 20.0 ng/mL [facility] - 01 Comment: Trough (immediately following transplant) 15.0 Trough (steady state, 2 weeks or more after transplant): 3.0 - 8.0 Performed by LC-MS/MS technology. Blood 02/26/2024 8:59 AM SHAPE CARVER 02/26/2024 Narrative [facility] - 02/29/2024 2:08 PM SHAPE CARVER Test(s) [id number] ([id number]), Blood was developed and its performance characteristics determined by [facility]. It has not been cleared or approved by the Food and Drug Administration. Performed at: - [address] [id number] Checking Department Supervisor: Agustina Tyler MD, Phone: [phone] us Jack Morrison MD LAB BLOOD ORDERABLES Final R esult Performing Organization Address [facility] de Phone Number [facility] - * (ABNORMAL) CBC with auto differential (02/26/2024 8:59 AM SHAPE CARVER) Pathologist [facility] WBC 3.6 3.4 - 10.8 x10E3/uL [facility] [...] [facility] - 01 Blood 02/26/2024 8:59 AM SHAPE CARVER 02/26/2024 Narrative [facility] - 02/27/2024 7:07 AM SHAPE CARVER Performed at: [address] [place] [id number] Checking Department Supervisor: Prabhjot Trammell PhD, Phone: [phone] us Jack Morrison MD LAB BLOOD ORDERABLES Final R esult [facility] - 01 * (ABNORMAL) Hepatic function panel (02/26/2024 8:59 AM SHAPE CARVER) Pathologist [facility] Protein, sr 6.1 6.0 - 8.5 g/dL [facility] - 01 Bilirubin, Total 0.4 0.0 - 1.2 mg/dL [facility] - 01 Bilirubin, direct 0.17 0.00 - 0.40 mg/dL [facility] - 01 Alk phos 147(H) 44 - 121 IU/L [facility] - 01 AST 14 0 - 40 IU/L [facility] - 01 ALT 10 0 - 44 IU/L [facility] - 01 Blood 02/26/2024 8:59 AM SHAPE CARVER 02/26/2024 Narrative [facility] - 02/27/2024 7:07 AM SHAPE CARVER Performed at: - [address] [id number] Checking Department Supervisor: Prabhjot Trammell PhD, Phone: [phone] Jack Morrison MD LAB BLOOD ORDERABLES Final R esult [facility] - 01 * (ABNORMAL) Renal function panel (02/26/2024 8:59 AM SHAPE CARVER) [facility] Glucose 99 70 - 99 mg/dL [facility] [...] [facility] - 01 Blood 02/26/2024 8:59 AM SHAPE CARVER 02/26/2024 Narrative [facility] - 02/27/2024 7:07 AM SHAPE CARVER Performed at: [facility] [id number] Checking Department Supervisor: Prabhjot Trammell PhD, Phone: [phone] us Jack Morrison MD LAB BLOOD ORDERABLES Final R esult [facility] - 01 * Lipid panel (02/26/2024 8:59 AM SHAPE CARVER) Cholesterol 121 100 - 199 mg/dL [facility] - 01 Triglycerides 104 0 - 149 mg/dL [facility] - 01 HDL Cholesterol 52 >39 mg/dL [facility] - 01 VLDL 19 5 - 40 mg/dL [facility] - 01 LDL, calculated 50 0 - 99 mg/dL [facility] - 01 Blood 02/26/2024 8:59 AM SHAPE CARVER 02/26/2024 Narrative [facility] - 02/27/2024 7:07 AM SHAPE CARVER Performed at: - [address] [id number] Checking Department Supervisor: Parbhjot Trammell PhD, Phone: [phone] us Jack Morrison MD LAB BLOOD ORDERABLES Final R esult [facility] - * POCT glucose (02/23/2024 11:43 AM SHAPE CARVER) Glucose, POC 105 70 - 199 mg/dL Blood 02/23/2024 11:4 3 AM SHAPE CARVER 02/23/2024 11:43 AM SHAPE CARVER us Renetta Jones MD PhD LAB POCT ORDERABLES - DEVICE Fi nal Result [facility] Department [place] [address] * POCT glucose (02/23/2024 8:21 AM SHAPE CARVER) Glucose, POC 106 70 - 199 mg/dL Blood 02/23/2024 8:21 AM SHAPE CARVER 02/23/2024 8:21 AM SHAPE CARVER us Renetta Jones MD PhD LAB POCT ORDERABLES - DEVICE Fi nal Result Performing Organization Address [facility] de Phone Number [facility] [place] [address] * (ABNORMAL) Potassium, whole blood (02/23/2024 6:38 AM SHAPE CARVER) Pathologist [facility] Potassium, bld 5.3(H) 3.3 - 4.9 mmol/L Blood 02/23/2024 6:38 AM SHAPE CARVER 02/23/2024 6:55 AM SHAPE CARVER us Renetta Jones MD PhD LAB BLOOD ORDERABLES Final Resu lt Performing Organization Address [facility] de Phone Number [facility] [place] [address] * ECG 12 lead (02/23/2024 6:30 AM SHAPE CARVER) [facility] Ventricular Rate EKG/Min 57 BPM [facility] Atrial Rate 57 BPM [facility] WV-Interval (MSEC) 246 ms [facility] QRS-Interval (MSEC) 142 ms [facility] QT-Interval (MSEC) 464 ms [facility] QTc 451 ms [facility] P Bend 65 degrees [facility] R Bend -9 degrees [facility] T Bend 20 degrees [facility] Diagnosis Sinus bradycardia with 1st degree A-V block Non-specific intra-ventricul ar conduction block Minimal voltage criteria for LVH, may be normal variant ( [place] product ) Abnormal ECG When compared with ECG of 27-JAN-2024 15:35, Sinus rhythm has replaced Atrial fibrillation QT has shortened Confirmed by JENNIFER BYRD M.D ([id number]) on 02/23/2024 1:27:04 PM [facility] 02/23/2024 6:30 AM SHAPE CARVER 02/23/2024 1:27 PM SHAPE CARVER us Renetta Jones MD PhD ECG ORDERABLES Final Result Performing Organization Address [facility] de Phone Number [facility] * CT Abdomen Pelvis WO Contrast (02/23/2024 5:21 AM SHAPE CARVER) Anatomical Region Laterality Modality Body N/A Computed Tomogra phy 02/23/2024 7:47 AM SHAPE CARVER Impressions 02/23/2024 7:47 AM SHAPE CARVER 1. Interval placement of pigtail catheter within [...] Blake Bauer M.D. Narrative 02/23/2024 7:47 AM SHAPE CARVER EXAMINATION: Computed tomography of the abdomen and [...] this noncontrast study. Marked atrophy of the [place] kidneys. No hyperdense gallstones or biliary dilation. [...] this noncontrast study. Marked atrophy of the [place] kidneys. No hyperdense gallstones or biliary dilation. [...] Result * (ABNORMAL) eGFR (02/23/2024 4:37 AM SHAPE CARVER) Pathologist [facility] eGFR 20(L) >=60 mL/min/1. 73 m2 Comment: [...] last reviewed 2020. Blood 02/23/2024 4:37 AM SHAPE CARVER 02/23/2024 4:59 AM SHAPE CARVER Rhoda LEE LAB BLOOD ORDERABLES Final Result [facility] One [facility] Department [place] [address] * (ABNORMAL) Differential, auto (02/23/2024 4:37 AM SHAPE CARVER) Pathologist [facility] Neutrophil abs 2.5 1.5 - 6.5 K/cumm Imm gran abs 0.0 0.0 - 0.1 K/cumm [facility] Lymphocyte abs 0.2(L) 0.8 - 3.3 K/cumm [facility] Monocyte abs 0.2 0.2 - 0.8 K/cumm [facility] Eosinophil abs 0.0 0.0 - 0.5 K/cumm [facility] Basophil abs 0.0 0.0 - 0.1 K/cumm [facility] Neutrophil pct 85.3 % [facility] Comment: Interpretive Data Percent cell count reference ranges are not reported, since discordance with absolute values may lead to misinterpretation of CBC data. Current Interpretive Data was last revised on 2017. Imm gran pct 0.7 % [facility] Comment: Interpretive Data Percent cell count reference ranges are not reported, since discordance with absolute values may lead to misinterpretation of CBC data. Current Interpretive Data was last revised on 2017. Lymphocyte pct 6.5 % [facility] Comment: Interpretive Data Percent cell count reference ranges are not reported, since discordance with absolute values may lead to misinterpretation of CBC data. Current Interpretive Data was last revised on 2017. Monocyte pct 6.1 % [facility] Comment: Interpretive Data Percent cell count reference ranges are not reported, since discordance with absolute values may lead to misinterpretation of CBC data. Current Interpretive Data was last revised on 2017. Eosinophil pct 0.7 % [facility] Comment: Interpretive Data Percent cell count reference ranges are not reported, since discordance with absolute values may lead to misinterpretation of CBC data. Current Interpretive Data was last revised on 2017. Basophil pct 0.7 % [facility] Comment: Interpretive Data Percent cell count reference ranges are not reported, since discordance with absolute values may lead to misinterpretation of CBC data. Current Interpretive Data was last revised on 2017. Blood 02/23/2024 4:37 AM SHAPE CARVER 02/23/2024 4:59 AM SHAPE CARVER us Rhoda LEE LAB BLOOD ORDERABLES Final Result [facility] Department [place] [address] * Tacrolimus level trough (02/23/2024 4:37 AM SHAPE CARVER) Pathologist [facility] Tacrolimus trough 9.1 ng/mL Comment: Interpretive Data Testing performed by liquid chromatography-tandem mass spectrometry. Therapeutic concentrations vary depending on type of transplanted organ and time elapsed since transplant. Typical trough concentrations range from 5-15 ng/mL. This test was developed and its performance characteristics determined by the [facility] consistent with CLIA requirements. This test has not been cleared or approved by the US Food and Drug administration. Current interpretive data last reviewed 2019. Blood 02/23/2024 4:37 AM SHAPE CARVER 02/23/2024 4:59 AM SHAPE CARVER Rhoda LEE LAB BLOOD ORDERABLES Final Result [facility] One [facility] Department [place] [address] * (ABNORMAL) CBC with auto differential (02/23/2024 4:37 AM SHAPE CARVER) WBC 2.9(L) 3.8 - 9.9 K/cumm Hgb 10.4(L) 13.0 - 17.5 g/dL [facility] Hct 31.2(L) 38.9 - 50.3 % [facility] Plt 106(L) 150 - 400 K/cumm [facility] MPV 9.8 9.1 - 12.3 fL [facility] RBC 3.09(L) 4.30 - 5.80 M/cumm [facility] MCV 101.0(H) 81.3 - 96.4 fL [facility] MCH 33.7(H) 27.1 - 33.3 pg [facility] MCHC 33.3 32.3 - 35.7 g/dL [facility] RDW CV 16.7(H) 11.1 - 14.9 % [facility] RDW SD 61.7(H) 35.7 - 48.1 fL [facility] NRBC abs 0.00 0.00 - 0.01 K/cumm [facility] Blood 02/23/2024 4:37 AM SHAPE CARVER 02/23/2024 4:59 AM SHAPE CARVER Rhoda LEE LAB BLOOD ORDERABLES Final Result Performing Organization Address City/[facility]/ZIP Co de Phone Number [facility] One [facility] [place] [address] * Magnesium (02/23/2024 4:37 AM SHAPE CARVER) [facility] Magnesium 2.0 1.4 - 2.5 mg/dL Blood 02/23/2024 4:37 AM SHAPE CARVER 02/23/2024 4:59 AM SHAPE CARVER Rhoda DevoraLuann Flores [place] LAB BLOOD ORDERABLES Final Result Performing Organization Address [facility] de Phone Number [facility] [place] [address] * (ABNORMAL) Renal function panel (02/23/2024 4:37 AM SHAPE CARVER) [facility] Sodium 141 135 - 145 mmol/L Potassium, pl 5.6(H) 3.3 - 4.9 mmol/L [facility] Chloride 108 97 - 110 mmol/L [facility] CO2 27 22 - 32 mmol/L [facility] Anion gap 6 2 - 15 mmol/L [facility] BUN 38(H) 6 - 25 mg/dL [facility] Creatinine 3.27(H) 0.80 - 1.30 mg/dL [facility] Glucose 86 70 - 199 mg/dL [facility] Comment: Interpretive Data Fasting glucose >/= [...] 2022. Calcium 9.6 8.5 - 10.3 mg/dL [facility] Phosphorus, pl 4.2 2.3 - 4.5 mg/dL [facility] Albumin 3.7 3.5 - 5.0 g/dL [facility] Blood 02/23/2024 4:37 AM SHAPE CARVER 02/23/2024 4:59 AM SHAPE CARVER Rhoda Flores PA LAB BLOOD ORDERABLES Final Result Performing Organization Address [facility] de Phone Number [facility] [place] [address] * POCT glucose (02/22/2024 9:35 PM SHAPE CARVER) Glucose, POC 136 70 - 199 mg/dL Blood 02/22/2024 9:35 PM SHAPE CARVER 02/22/2024 9:35 PM SHAPE CARVER Renetta Jones MD PhD LAB POCT ORDERABLES - DEVICE Fi nal Result Performing Organization Address [facility] de Phone Number [facility] Department [place] [address] * POCT glucose (02/22/2024 5:37 PM SHAPE CARVER) Glucose, POC 134 70 - 199 mg/dL Blood 02/22/2024 5:37 PM SHAPE CARVER 02/22/2024 5:37 PM SHAPE CARVER Renetta Jones MD PhD LAB POCT ORDERABLES - DEVICE Fi nal Result Performing Organization Address [facility] de Phone Number [facility] [place] [address] * Cell Differential, Body Fluid (02/22/2024 2:26 PM SHAPE CARVER) Total cells diffed 100 cells Comment: Interpretive [...] [facility] Specimen type, fld Peritoneal [facility] Fluid 02/22/2024 2:26 PM SHAPE CARVER 02/22/2024 2:38 PM SHAPE CARVER Harrison Taylor MD LAB BODY FLUIDS AND STOOLS OR DERABLES Final Result Performing Organization Address [facility] de Phone Number [facility] [place] [address] * Cell Differential, Body Fluid (02/22/2024 2:26 PM SHAPE CARVER) Pathologist [facility] Total cells diffed 100 cells Comment: Interpretive Data Unless otherwise specified, the reference range and other method performance specifications have not been established for CSF/Body Fluid tests. The test results should be integrated into the clinical context for interpretation. Current interpretive data was last revised on 2018. Neutrophils, fld 4 % [facility] Lymphs, fld 79 % [facility] Monocyte, fld 17 % [facility] Specimen type, fld [facility]itoneal [facility] Fluid 02/22/2024 2:26 PM SHAPE CARVER 02/22/2024 2:38 PM SHAPE CARVER Harrison Taylor MD LAB BODY FLUIDS AND STOOLS OR DERABLES Final Result Performing Organization Address [facility] de Phone Number [facility] [place] [address] * (ABNORMAL) Cell count w/rflx diff, body fluid (02/22/2024 2:26 PM SHAPE CARVER) Specimen type, fld Peritoneal Color, fld [place] [facility] Clarity, fld Cloudy(A) Clear [facility] Nucleated cells, fld 83 /cumm [facility] Comment: Interpretive Data Unless otherwise specified, the reference range and other method performance specifications have not been established for CSF/Body Fluid tests. The test results should be integrated into the clinical context for interpretation. Current interpretive data was last revised on 2018. RBC, fld 21,315 /cumm [facility] Fluid 02/22/2024 2:26 PM SHAPE CARVER 02/22/2024 2:38 PM SHAPE CARVER Narrative [facility] - 02/22/2024 4:31 PM SHAPE CARVER RLQ drain #2 Harrison Taylor MD LAB BODY FLUIDS AND STOOLS OR DERABLES Final Result Performing Organization Address [facility] de Phone Number [facility] [place] [address] * (ABNORMAL) Cell count w/rflx diff, body fluid (02/22/2024 2:26 PM SHAPE CARVER) [facility] Specimen type, fld Peritoneal Color, fld Red [facility] Clarity, fld Turbid(A) Clear [facility] Nucleated cells, fld 350 /cumm [facility] Comment: Interpretive Data Unless otherwise specified, the reference range and other method performance specifications have not been established for CSF/Body Fluid tests. The test results should be integrated into the clinical context for interpretation. Current interpretive data was last revised on 2018. RBC, fld 606,638 /cumm [facility] Fluid 02/22/2024 2:26 PM SHAPE CARVER 02/22/2024 2:38 PM SHAPE CARVER Narrative [facility] - 02/22/2024 4:31 PM SHAPE CARVER RLQ us Harrison Taylor MD LAB BODY FLUIDS AND STOOLS OR DERABLES Final Result Performing Organization Address [facility]/ZIP Co de Phone Number [facility] [place] [address] * Aerobic and anaerobic culture and gram stain Peritoneal fluid Abdominal, right lower quadrant (02/22/2024 2:26 PM SHAPE CARVER) Direct Specimen Exam Stain: Cytospin Gram stain shows: Rare polymorphonuclear leukocytes seen. No organisms seen. Report Final Report: No growth [facility] Peritoneal fluid (Abdominal, right lower quadrant) 02/22/2024 2:26 PM SHAPE CARVER 02/22/2024 3:42 PM SHAPE CARVER Narrative [facility] - 02/25/2024 10:47 AM SHAPE CARVER RLQ Drain #2 Testing performed by [facility] ([phone]) Specimens submitted from normally sterile body sites [...] MICROBIOLOGY - GENERAL OR DERABLES Final Result [facility] One [facility] Department [place] [address] * Aerobic and anaerobic culture and gram stain Abscess Abdominal, right lower quadrant (02/22/2024 2:26 PM SHAPE CARVER) Direct Specimen Exam Stain: Rare polymorphonuclear leukocytes seen. No organisms seen. Report Final Report: No growth [facility] Abscess (Abdominal, right lower quadrant) 02/22/2024 2:26 PM SHAPE CARVER 02/22/2024 3:41 PM SHAPE CARVER Narrative [facility] - 02/25/2024 10:48 AM SHAPE CARVER Testing performed by [facility] ([phone]) Specimens submitted from normally sterile body sites [...] OR DERABLES Final Result Performing Organization Address [facility] de Phone Number [facility] Department [place] [address] * Creatinine, body fluid (02/22/2024 2:26 PM SHAPE CARVER) Specimen type, fld Peritoneal Creatinine, fld 3.60 mg/dL [facility] Comment: The above specimen type is [...] 2018. Chapter 43, Body Fluids, p. 925 [employer] Test directory, Body Fluid Reference Intervals and/or Interpretative Information. [email or web address] Current Interpretive Data was last revised 2018. Fluid 02/22/2024 2:26 PM SHAPE CARVER 02/22/2024 2:38 PM SHAPE CARVER Narrative [facility] - 02/22/2024 3:21 PM SHAPE CARVER RLQ Harrison Taylor MD LAB BODY FLUIDS AND STOOLS OR DERABLES Final Result Performing Organization Address [facility] de Phone Number [facility] Department [place] [address] * Creatinine, body fluid (02/22/2024 2:19 PM SHAPE CARVER) Specimen type, fld Peritoneal Creatinine, fld 3.43 mg/dL [facility] Comment: The above specimen type is [...] Body Fluid Reference Intervals and/or Interpretative Information. [email or web address] Current Interpretive Data was last revised 2018. Fluid 02/22/2024 2:19 PM SHAPE CARVER 02/22/2024 2:38 PM SHAPE CARVER Narrative [facility] - 02/22/2024 8:43 PM SHAPE CARVER RLQ Drain #2 us Harrison Taylor MD LAB BODY FLUIDS AND STOOLS OR DERABLES Final Result Performing Organization Address [facility]/ZIP Co de Phone Number [facility] Department [place] [address] * POCT glucose (02/22/2024 1:48 PM SHAPE CARVER) Glucose, POC 81 70 - 199 mg/dL Blood 02/22/2024 1:48 PM SHAPE CARVER 02/22/2024 1:48 PM SHAPE CARVER us Renetta Jones MD PhD LAB POCT ORDERABLES - DEVICE Fi nal Result Performing Organization Address [facility] de Phone Number [facility] Department [place] [address] * IR Fluid Drain Soft Tissue (02/22/2024 1:14 PM SHAPE CARVER) Anatomical Region Laterality Modality Body N/A X-Ray Angiograph y 02/22/2024 4:41 PM SHAPE CARVER Addenda Addendum by Harrison Taylor MD on 02/23/2024 1:55 PM SHAPE CARVER This addendum is being placed after cell [...] Harrison Taylor M.D. Impressions 02/22/2024 4:51 PM SHAPE CARVER Successful image guided right lower quadrant fluid [...] Harrison Taylor M.D. Narrative 02/22/2024 4:51 PM SHAPE CARVER EXAMINATION: PERCUTANEOUS DRAINAGE (STD) HISTORY/INDICATION: 63-year-old male [...] was obtained. Prior to beginning the procedure, [place] Protocol was used to confirm the patient's [...] coiled within the collection before dilating to 12-Azerbaijani. A 12-Azerbaijani cope loop catheter was then advanced over [...] coiled within the collection before dilating to 12-Azerbaijani. A 12-Azerbaijani Cobra catheter was then advanced over the [...] was obtained. Prior to beginning the procedure, [place] Protocol was used to confirm the patient's [...] coiled within the collection before dilating to 12-Azerbaijani. A 12-Azerbaijani cope loop catheter was then advanced over [...] coiled within the collection before dilating to 12-Azerbaijani. A 12-Azerbaijani Cobra catheter was then advanced over the [...] Electronically signed by: Harrison Taylor M.D. Rhoda LEE IMG IR PROCEDURES Edited R esult - Final * Cell Differential, Body Fluid (02/22/2024 12:50 PM SHAPE CARVER) Total cells diffed 100 cells Comment: Interpretive Data Unless otherwise specified, the reference range and other method performance specifications have not been established for CSF/Body Fluid tests. The test results should be integrated into the clinical context for interpretation. Current interpretive data was last revised on 2018. Neutrophils, fld 1 % [facility] Lymphs, fld 95 % [facility] Monocyte, fld 4 % [facility] Specimen type, fld Peritoneal [facility] Fluid 02/22/2024 12:5 0 PM SHAPE CARVER 02/22/2024 4:24 PM SHAPE CARVER Renetta Jones MD PhD LAB BODY FLUIDS AND STOOLS ORDE RABLES Final Result Performing Organization Address [facility] de Phone Number [facility] Department [place] [address] * (ABNORMAL) Cell count w/rflx diff, body fluid (02/22/2024 12:50 PM SHAPE CARVER) Specimen type, fld Peritoneal Color, fld Olivia [facility] Clarity, fld Cloudy(A) Clear [facility] Nucleated cells, fld 44 /cumm [facility] Comment: Interpretive Data Unless otherwise specified, the reference range and other method performance specifications have not been established for CSF/Body Fluid tests. The test results should be integrated into the clinical context for interpretation. Current interpretive data was last revised on 2018. RBC, fld 2,832 /cumm [facility] Fluid 02/22/2024 12:5 0 PM SHAPE CARVER 02/22/2024 4:24 PM SHAPE CARVER Narrative [facility] - 02/22/2024 5:35 PM SHAPE CARVER RLQ drain 2 us Renetta Jones MD PhD LAB BODY FLUIDS AND STOOLS ORDE RABLES Final Result Performing Organization Address [facility] de Phone Number [facility] Department [place] [address] * Creatinine, body fluid (02/22/2024 12:50 PM SHAPE CARVER) Specimen type, fld Unknown Creatinine, fld 3.51 mg/dL [facility] Comment: The above specimen type is [...] 2018. Chapter 43, Body Fluids, p. 925 [employer] Test directory, Body Fluid Reference Intervals and/or Interpretative Information. [email or web address] Current Interpretive Data was last revised 2018. Fluid 02/22/2024 12:5 0 PM SHAPE CARVER 02/22/2024 4:23 PM SHAPE CARVER Narrative [facility] - 02/22/2024 6:58 PM SHAPE CARVER RLQ drain 1 us Renetta Jones MD PhD LAB BODY FLUIDS AND STOOLS THALIA PATRIA Final Result Performing Organization Address [facility] de Phone Number [facility] Department [place] [address] * (ABNORMAL) Potassium, whole blood (02/22/2024 6:27 AM SHAPE CARVER) Potassium, bld 5.0(H) 3.3 - 4.9 mmol/L Comment:Reviewed. Blood 02/22/2024 6:27 AM SHAPE CARVER 02/22/2024 6:36 AM SHAPE CARVER Vannessa Hein ENVIRONMENTAL SCIENCE PROFESSOR LAB BLOOD ORDERABLES Fin al Result Performing Organization Address [facility] de Phone Number [facility] Department [place] [address] * POCT glucose (02/22/2024 6:27 AM SHAPE CARVER) Glucose, POC 92 70 - 199 mg/dL Blood 02/22/2024 6:27 AM SHAPE CARVER 02/22/2024 6:27 AM SHAPE CARVER Renetta Jones MD PhD LAB POCT ORDERABLES - DEVICE Fi nal Result Performing Organization Address [facility]/ZIP Co de Phone Number [facility] Department [place] [address] * (ABNORMAL) eGFR (02/22/2024 4:38 AM SHAPE CARVER) Pathologist [facility] eGFR 19(L) >=60 mL/min/1. 73 m2 Comment: [...] last reviewed 2020. Blood 02/22/2024 4:38 AM SHAPE CARVER 02/22/2024 5:26 AM SHAPE CARVER Rhoda LEE LAB BLOOD ORDERABLES Final Result Performing Organization Address [facility] de Phone Number [facility] [place] [address] * (ABNORMAL) Differential, auto (02/22/2024 4:38 AM SHAPE CARVER) Pathologist [facility] Neutrophil abs 2.6 1.5 - 6.5 K/cumm Imm gran abs 0.0 0.0 - 0.1 K/cumm [facility] Lymphocyte abs 0.2(L) 0.8 - 3.3 K/cumm [facility] Monocyte abs 0.2 0.2 - 0.8 K/cumm [facility] Eosinophil abs 0.0 0.0 - 0.5 K/cumm [facility] Basophil abs 0.0 0.0 - 0.1 K/cumm [facility] Neutrophil pct 83.7 % [facility] Comment: Interpretive Data Percent cell count reference ranges are not reported, since discordance with absolute values may lead to misinterpretation of CBC data. Current Interpretive Data was last revised on 2017. Imm gran pct 0.6 % [facility] Comment: Interpretive Data Percent cell count reference ranges are not reported, since discordance with absolute values may lead to misinterpretation of CBC data. Current Interpretive Data was last revised on 2017. Lymphocyte pct 6.7 % [facility] Comment: Interpretive Data Percent cell count reference ranges are not reported, since discordance with absolute values may lead to misinterpretation of CBC data. Current Interpretive Data was last revised on 2017. Monocyte pct 6.7 % [facility] Comment: Interpretive Data Percent cell count reference ranges are not reported, since discordance with absolute values may lead to misinterpretation of CBC data. Current Interpretive Data was last revised on 2017. Eosinophil pct 1.3 % [facility] Comment: Interpretive Data Percent cell count reference ranges are not reported, since discordance with absolute values may lead to misinterpretation of CBC data. Current Interpretive Data was last revised on 2017. Basophil pct 1.0 % [facility] Comment: Interpretive Data Percent cell count reference ranges are not reported, since discordance with absolute values may lead to misinterpretation of CBC data. Current Interpretive Data was last revised on 2017. Blood 02/22/2024 4:38 AM SHAPE CARVER 02/22/2024 5:26 AM SHAPE CARVER us Rhoda LEE LAB BLOOD ORDERABLES Final Result [facility]DA [facility] Department [place] [address] * Tacrolimus level trough (02/22/2024 4:38 AM SHAPE CARVER) Pathologist [facility] Tacrolimus trough 8.2 ng/mL Comment: Interpretive Data Testing performed by liquid chromatography-tandem mass spectrometry. Therapeutic concentrations vary depending on type of transplanted organ and time elapsed since transplant. Typical trough concentrations range from 5-15 ng/mL. This test was developed and its performance characteristics determined by the [facility] consistent with CLIA requirements. This test has not been cleared or approved by the [place] Food and Drug administration. Current interpretive data last reviewed 2019. Blood 02/22/2024 4:38 AM SHAPE CARVER 02/22/2024 5:26 AM SHAPE CARVER Rhoda LEE LAB BLOOD ORDERABLES Final Result [facility] Department [place] [address] * (ABNORMAL) CBC with auto differential (02/22/2024 4:38 AM SHAPE CARVER) WBC 3.1(L) 3.8 - 9.9 K/cumm Hgb 10.8(L) 13.0 - 17.5 g/dL [facility] Hct 32.2(L) 38.9 - 50.3 % [facility] Plt 117(L) 150 - 400 K/cumm [facility] MPV 10.3 9.1 - 12.3 fL [facility] RBC 3.23(L) 4.30 - 5.80 M/cumm [facility] MCV 99.7(H) 81.3 - 96.4 fL [facility] MCH 33.4(H) 27.1 - 33.3 pg [facility] MCHC 33.5 32.3 - 35.7 g/dL [facility] RDW CV 16.9(H) 11.1 - 14.9 % [facility] RDW SD 62.2(H) 35.7 - 48.1 fL [facility] NRBC abs 0.00 0.00 - 0.01 K/cumm [facility] Blood 02/22/2024 4:38 AM SHAPE CARVER 02/22/2024 5:26 AM SHAPE CARVER us Rhoda LEE LAB BLOOD ORDERABLES Final Result [facility] One [facility] [place] [address] * Magnesium (02/22/2024 4:38 AM SHAPE CARVER) [facility] Magnesium 1.9 1.4 - 2.5 mg/dL Blood 02/22/2024 4:38 AM SHAPE CARVER 02/22/2024 5:26 AM SHAPE CARVER Rhoda Chantell LEE LAB BLOOD ORDERABLES Final Result Performing Organization Address [facility] de Phone Number [facility] [place] [address] * (ABNORMAL) Renal function panel (02/22/2024 4:38 AM SHAPE CARVER) [facility] Sodium 140 135 - 145 mmol/L Potassium, pl 5.2(H) 3.3 - 4.9 mmol/L [facility] Chloride 107 97 - 110 mmol/L [facility] CO2 23 22 - 32 mmol/L [facility] Anion gap 10 2 - 15 mmol/L [facility] BUN 46(H) 6 - 25 mg/dL [facility] Creatinine 3.44(H) 0.80 - 1.30 mg/dL [facility] Glucose 94 70 - 199 mg/dL [facility] Comment: Interpretive Data Fasting glucose >/= [...] 2022. Calcium 9.5 8.5 - 10.3 mg/dL [facility] Phosphorus, pl 4.5 2.3 - 4.5 mg/dL [facility] Albumin 3.6 3.5 - 5.0 g/dL [facility] Blood 02/22/2024 4:38 AM SHAPE CARVER 02/22/2024 5:26 AM SHAPE CARVER Rhoda Flores PA LAB BLOOD ORDERABLES Final Result Performing Organization Address [facility] de Phone Number [facility] [place] [address] * POCT glucose (02/21/2024 8:49 PM SHAPE CARVER) Glucose, POC 107 70 - 199 mg/dL Blood 02/21/2024 8:49 PM SHAPE CARVER 02/21/2024 8:49 PM SHAPE CARVER Renetta Jones MD PhD LAB POCT ORDERABLES - DEVICE Fi nal Result Performing Organization Address [facility] Co de Phone Number [facility] [place] [address] * POCT glucose (02/21/2024 5:26 PM SHAPE CARVER) Glucose, POC 108 70 - 199 mg/dL Blood 02/21/2024 5:26 PM SHAPE CARVER 02/21/2024 5:26 PM SHAPE CARVER Renetta Jones MD PhD LAB POCT ORDERABLES - DEVICE Fi nal Result Performing Organization Address [facility] de Phone Number [facility] [place] [address] * POCT glucose (02/21/2024 2:08 PM SHAPE CARVER) Glucose, POC 147 70 - 199 mg/dL Blood 02/21/2024 2:08 PM SHAPE CARVER 02/21/2024 2:08 PM SHAPE CARVER us Renetta Jones MD PhD LAB POCT ORDERABLES - DEVICE Fi nal Result Performing Organization Address [facility] de Phone Number [facility] Department [place] [address] * (ABNORMAL) eGFR (02/21/2024 2:06 PM SHAPE CARVER) Pathologist [facility] eGFR 20(L) >=60 mL/min/1. 73 m2 Comment: [...] last reviewed 2020. Blood 02/21/2024 2:06 PM SHAPE CARVER 02/21/2024 2:24 PM SHAPE CARVER us Rhoda LEE LAB BLOOD ORDERABLES Final Result Performing Organization Address [facility]/ZIP Co de Phone Number [facility] Department [place] [address] * (ABNORMAL) Differential, auto (02/21/2024 2:06 PM SHAPE CARVER) Pathologist [facility] Neutrophil abs 3.3 1.5 - 6.5 K/cumm Imm gran abs 0.0 0.0 - 0.1 K/cumm [facility] Lymphocyte abs 0.2(L) 0.8 - 3.3 K/cumm [facility] Monocyte abs 0.2 0.2 - 0.8 K/cumm [facility] Eosinophil abs 0.0 0.0 - 0.5 K/cumm [facility] Basophil abs 0.0 0.0 - 0.1 K/cumm [facility] Neutrophil pct 86.3 % [facility] Comment: Interpretive Data Percent cell count reference ranges are not reported, since discordance with absolute values may lead to misinterpretation of CBC data. Current Interpretive Data was last revised on 2017. Imm gran pct 0.8 % [facility] Comment: Interpretive Data Percent cell count reference ranges are not reported, since discordance with absolute values may lead to misinterpretation of CBC data. Current Interpretive Data was last revised on 2017. Lymphocyte pct 4.3 % [facility] Comment: Interpretive Data Percent cell count reference ranges are not reported, since discordance with absolute values may lead to misinterpretation of CBC data. Current Interpretive Data was last revised on 2017. Monocyte pct 6.4 % [facility] Comment: Interpretive Data Percent cell count reference ranges are not reported, since discordance with absolute values may lead to misinterpretation of CBC data. Current Interpretive Data was last revised on 2017. Eosinophil pct 1.1 % [facility] Comment: Interpretive Data Percent cell count reference ranges are not reported, since discordance with absolute values may lead to misinterpretation of CBC data. Current Interpretive Data was last revised on 2017. Basophil pct 1.1 % [facility] Comment: Interpretive Data Percent cell count reference ranges are not reported, since discordance with absolute values may lead to misinterpretation of CBC data. Current Interpretive Data was last revised on 2017. Blood 02/21/2024 2:06 PM SHAPE CARVER 02/21/2024 2:24 PM SHAPE CARVER Rhoda LEE LAB BLOOD ORDERABLES Final Result [facility] Department [place] [address] * (ABNORMAL) CBC with auto differential (02/21/2024 2:06 PM SHAPE CARVER) WBC 3.8 3.8 - 9.9 K/cumm Hgb 10.9(L) 13.0 - 17.5 g/dL [facility] Hct 32.3(L) 38.9 - 50.3 % [facility] Plt 123(L) 150 - 400 K/cumm [facility] MPV 10.0 9.1 - 12.3 fL [facility] RBC 3.26(L) 4.30 - 5.80 M/cumm [facility] MCV 99.1(H) 81.3 - 96.4 fL [facility] MCH 33.4(H) 27.1 - 33.3 pg [facility] MCHC 33.7 32.3 - 35.7 g/dL [facility] RDW CV 17.0(H) 11.1 - 14.9 % [facility] RDW SD 61.9(H) 35.7 - 48.1 fL [facility] NRBC abs 0.00 0.00 - 0.01 K/cumm [facility] Blood 02/21/2024 2:06 PM SHAPE CARVER 02/21/2024 2:24 PM SHAPE CARVER Rhoda LEE LAB BLOOD ORDERABLES Final Result [facility] Department [place] [address] * Protime-INR (02/21/2024 2:06 PM SHAPE CARVER) Pathologist [facility] PT 12.0 9.7 - 13.0 sec INR 1.11 0.90 - 1.20 [facility] Comment: Interpretive data Oral anticoagulant therapeutic ranges: Venous thromboembolism prophylaxis or treatment: 2.0-3.0 CARDIOLOGY Standard range: 2.0-3.0 High-intensity range: 2.5-3.5 Refer to indication-specific guidelines for appropriate target ranges for prosthetic heart valve replacement. Current interpretive data was last revised on 2019. Blood 02/21/2024 2:06 PM SHAPE CARVER 02/21/2024 2:24 PM SHAPE CARVER Rhoda LEE LAB BLOOD ORDERABLES Final Result Performing Organization Address [facility] Co de Phone Number [facility] [place] [address] * Magnesium (02/21/2024 2:06 PM SHAPE CARVER) [facility] Magnesium 1.9 1.4 - 2.5 mg/dL Blood 02/21/2024 2:06 PM SHAPE CARVER 02/21/2024 2:24 PM SHAPE CARVER Rhoda Flores [place] LAB BLOOD ORDERABLES Final Result Performing Organization Address [facility] de Phone Number [facility] [place] [address] * (ABNORMAL) Renal function panel (02/21/2024 2:06 PM SHAPE CARVER) [facility] Sodium 140 135 - 145 mmol/L Potassium, pl 4.9 3.3 - 4.9 mmol/L [facility] Chloride 107 97 - 110 mmol/L [facility] CO2 23 22 - 32 mmol/L [facility] Anion gap 10 2 - 15 mmol/L [facility] BUN 45(H) 6 - 25 mg/dL [facility] Creatinine 3.25(H) 0.80 - 1.30 mg/dL [facility] Glucose 145 70 - 199 mg/dL [facility] Comment: Interpretive Data Fasting glucose >/= [...] 2022. Calcium 9.4 8.5 - 10.3 mg/dL [facility] Phosphorus, pl 4.2 2.3 - 4.5 mg/dL [facility] Albumin 3.7 3.5 - 5.0 g/dL [facility] Blood 02/21/2024 2:06 PM SHAPE CARVER 02/21/2024 2:24 PM SHAPE CARVER us Rhoda LEE LAB BLOOD ORDERABLES Final Result [facility] One [facility] Department [place] [address] * ECG 12 lead (02/17/2024 4:29 PM SHAPE CARVER) us Marian Merino MD ECG ORDERABLES Edited Res ult - Final * CT Abdomen Pelvis WO Contrast (02/17/2024 11:48 AM SHAPE CARVER) Anatomical Region Laterality Modality Body N/A Computed Tomogra phy 02/17/2024 12:1 1 PM SHAPE CARVER Impressions 02/17/2024 12:37 PM SHAPE CARVER 1. Postsurgical changes of prior right lower [...] Kathy Turpin M.D. Narrative 02/17/2024 12:37 PM SHAPE CARVER EXAMINATION: Computed tomography of the abdomen and [...] in the urinary bladder without hydronephrosis. Atrophic [place] bilateral kidneys with extensive atherosclerotic calcifications of [...] in the urinary bladder without hydronephrosis. Atrophic [place] bilateral kidneys with extensive atherosclerotic calcifications of [...] by: Kathy Turpin M.D. Ayush Galvez MD IM CT PROCEDURES Final Res ult * (ABNORMAL) eGFR (02/17/2024 10:25 AM SHAPE CARVER) eGFR 23(L) >=60 mL/min/1. 73 m2 Comment: Interpretive Data Reference Interval Normal >/= 90 mL/min/1.73m2 Mildly decreased* 60 - 89 mL/min/1.73m2 Mildly to moderately decreased 45 - 59 mL/min/1.73m2 Moderately to severely decreased 30 - 44 mL/min/1.73m2 Severely decreased 15 - 29 mL/min/1.73m2 Kidney Failure < 15 mL/min/1.73m2 *Relative to young adult level Estimated glomerular filtration rate is determined by the 202 CKD-EPI equation recommended by the National Kidney [...] reviewed 2020. Blood 02/17/2024 10:2 5 AM SHAPE CARVER 02/17/2024 10:57 AM SHAPE CARVER us Jack Morrison MD LAB BLOOD ORDERABLES Final R esult [facility] One [facility] Department [place] [address] * (ABNORMAL) Differential, auto (02/17/2024 10:25 AM SHAPE CARVER) Neutrophil abs 3.9 1.5 - 6.5 K/cumm Imm gran abs 0.0 0.0 - 0.1 K/cumm [facility] Lymphocyte abs 0.2(L) 0.8 - 3.3 K/cumm [facility] Monocyte abs 0.2 0.2 - 0.8 K/cumm [facility] Eosinophil abs 0.1 0.0 - 0.5 K/cumm [facility] Basophil abs 0.1 0.0 - 0.1 K/cumm [facility] Neutrophil pct 86.9 % [facility] Comment: Interpretive Data Percent cell count reference ranges are not reported, since discordance with absolute values may lead to misinterpretation of CBC data. Current Interpretive Data was last revised on 2017. Imm gran pct 0.7 % [facility] Comment: Interpretive Data Percent cell count reference ranges are not reported, since discordance with absolute values may lead to misinterpretation of CBC data. Current Interpretive Data was last revised on 2017. Lymphocyte pct 3.8 % [facility] Comment: Interpretive Data Percent cell count reference ranges are not reported, since discordance with absolute values may lead to misinterpretation of CBC data. Current Interpretive Data was last revised on 2017. Monocyte pct 5.1 % [facility] Comment: Interpretive Data Percent cell count reference ranges are not reported, since discordance with absolute values may lead to misinterpretation of CBC data. Current Interpretive Data was last revised on 2017. Eosinophil pct 2.2 % [facility] Comment: Interpretive Data Percent cell count reference ranges are not reported, since discordance with absolute values may lead to misinterpretation of CBC data. Current Interpretive Data was last revised on 2017. Basophil pct 1.3 % [facility] Comment: Interpretive Data Percent cell count reference ranges are not reported, since discordance with absolute values may lead to misinterpretation of CBC data. Current Interpretive Data was last revised on 2017. Blood 02/17/2024 10:2 5 AM SHAPE CARVER 02/17/2024 10:57 AM SHAPE CARVER us Jack Morrison MD LAB BLOOD ORDERABLES Final R esult [facility] One [facility] Department [place] [address] * (ABNORMAL) CBC with auto differential (02/17/2024 10:25 AM SHAPE CARVER) WBC 4.5 3.8 - 9.9 K/cumm Hgb 11.4(L) 13.0 - 17.5 g/dL [facility] Hct 34.8(L) 38.9 - 50.3 % [facility] Plt 144(L) 150 - 400 K/cumm [facility] MPV 10.3 9.1 - 12.3 fL [facility] RBC 3.43(L) 4.30 - 5.80 M/cumm [facility] MCV 101.5(H) 81.3 - 96.4 fL [facility] MCH 33.2 27.1 - 33.3 pg [facility] MCHC 32.8 32.3 - 35.7 g/dL [facility] RDW CV 17.3(H) 11.1 - 14.9 % [facility] RDW SD 64.6(H) 35.7 - 48.1 fL [facility] NRBC abs 0.00 0.00 - 0.01 K/cumm [facility] Blood 02/17/2024 10:2 5 AM SHAPE CARVER 02/17/2024 10:57 AM SHAPE CARVER Jack Morrison MD LAB BLOOD ORDERABLES Final R esult Performing Organization Address [facility] de Phone Number [facility] [place] [address] * Tacrolimus level random (02/17/2024 10:25 AM SHAPE CARVER) Pathologist [facility] Tacrolimus random 2.4 ng/mL Comment: Interpretive Data Testing performed by liquid chromatography-tandem mass spectrometry. Therapeutic concentrations vary depending on type of transplanted organ and time elapsed since transplant. Typical trough concentrations range from 5-15 ng/mL. This test was developed and its performance characteristics determined by the [facility] consistent with CLIA requirements. This test has not been cleared or approved by the US Food and Drug administration. Current interpretive data last reviewed 2019. Blood 02/17/2024 10:2 5 AM SHAPE CARVER 02/17/2024 10:57 AM SHAPE CARVER Result [facility] Jack Morrison MD LAB BLOOD ORDERABLES Final R pending sale to [facility] Performing Organization Address [facility] de Phone Number [facility] [place] [address] * Hepatitis B (HBV) DNA PCR, quantitative Blood (02/17/2024 10:25 AM SHAPE CARVER) Pathologist [facility] HBV DNA Result Not Detected [facility] Comment: The quantifiable range of this assay is 10 IU/mL to 1,000,000,000 IU/mL (1.00 log IU/mL to 9.00 log IU/mL). Testing was performed by the [employer]00 HBV Test version 2.0 ([employer] Testing performed at [facility] Current Interpretive Data was last revised on 2020. Blood 02/17/2024 10:2 5 AM SHAPE CARVER 02/17/2024 11:20 AM SHAPE CARVER Jack Morrison MD LAB MICROBIOLOGY - GENERAL O RDERABLES Final Result Performing Organization Address [facility] [place] [address] [facility] * HIV-1 RNA PCR, quantitative Blood (02/17/2024 10:25 AM SHAPE CARVER) [facility] HIV-1 RNA Not Detected [facility] Comment: The quantifiable range of this assay is 20 copies/mL to 10,000,000 copies/mL (1.30 log copies/mL to 7.00 log copies/mL). Testing was performed by the [employer]00 HIV-1 Test([employer] Testing performed at [facility] Current Interpretive Data was last revised on 2020. Blood 02/17/2024 10:2 5 AM SHAPE CARVER 02/17/2024 11:20 AM SHAPE CARVER Jack Morrison MD LAB MICROBIOLOGY - GENERAL O RDERABLES Final Result Performing Organization Address [facility] [place] [address] [facility] * Hepatitis C (HCV) RNA PCR, quantitative Blood (02/17/2024 10:25 AM SHAPE CARVER) [facility] HCV RNA result Not Detected [facility] Comment: The quantifiable range of this assay is 15 IU/mL to 100,000,000 IU/mL (1.18 log IU/mL to 8.00 log IU/mL). Testing was performed by the [employer] HCV Test ([employer] Testing performed at [facility] Current Interpretive Data was last revised on 2020 Blood 02/17/2024 10:2 5 AM SHAPE CARVER 02/17/2024 11:20 AM SHAPE CARVER Jack Morrison MD LAB MICROBIOLOGY - GENERAL O RDERABLES Final Result Performing Organization Address City/[facility]/ZIP Co de Phone Number [facility] Department [place] [address] [facility] * Magnesium (02/17/2024 10:25 AM SHAPE CARVER) Pathologist [facility] Magnesium 1.7 1.4 - 2.5 mg/dL Blood 02/17/2024 10:2 5 AM SHAPE CARVER 02/17/2024 10:57 AM SHAPE CARVER Jack Morrison MD LAB BLOOD ORDERABLES Final R esult Performing Organization Address [facility] de Phone Number [facility] Department [place] [address] * (ABNORMAL) Renal function panel (02/17/2024 10:25 AM SHAPE CARVER) Pathologist [facility] Sodium 142 135 - 145 mmol/L Potassium, pl 5.0(H) 3.3 - 4.9 mmol/L [facility] Chloride 107 97 - 110 mmol/L [facility] CO2 21(L) 22 - 32 mmol/L [facility] Anion gap 14 2 - 15 mmol/L [facility] BUN 48(H) 6 - 25 mg/dL [facility] Creatinine 2.98(H) 0.80 - 1.30 mg/dL [facility] Glucose 79 70 - 199 mg/dL [facility] Comment: Interpretive Data Fasting glucose >/= [...] 2022. Calcium 10.0 8.5 - 10.3 mg/dL [facility] Phosphorus, pl 3.2 2.3 - 4.5 mg/dL [facility] Albumin 3.8 3.5 - 5.0 g/dL [facility] Blood 02/17/2024 10:2 5 AM SHAPE CARVER 02/17/2024 10:57 AM SHAPE CARVER Jack Morrison MD LAB BLOOD ORDERABLES Final R esult Performing Organization Address City/[facility]/ZIP Co de Phone Number [facility] [place] [address] * (ABNORMAL) eGFR (02/11/2024 9:00 AM SHAPE CARVER) eGFR 19(L) >=60 mL/min/1. 73 m2 Comment: [...] last reviewed 2020. Blood 02/11/2024 9:00 AM SHAPE CARVER 02/11/2024 11:51 AM SHAPE CARVER us Rosalie Velásquez NP LAB BLOOD ORDERABLES Final Result Performing Organization Address City/[facility]/ZIP Co de Phone Number [facility] [place] [address] * (ABNORMAL) Differential, auto (02/11/2024 9:00 AM SHAPE CARVER) Neutrophil abs 4.6 1.5 - 6.5 K/cumm Imm gran abs 0.0 0.0 - 0.1 K/cumm [facility] Lymphocyte abs 0.2(L) 0.8 - 3.3 K/cumm [facility] Monocyte abs 0.2 0.2 - 0.8 K/cumm [facility] Eosinophil abs 0.1 0.0 - 0.5 K/cumm [facility] Basophil abs 0.1 0.0 - 0.1 K/cumm [facility] Neutrophil pct 89.6 % [facility] Comment: Interpretive Data Percent cell count reference ranges are not reported, since discordance with absolute values may lead to misinterpretation of CBC data. Current Interpretive Data was last revised on 2017. Imm gran pct 0.6 % [facility] Comment: Interpretive Data Percent cell count reference ranges are not reported, since discordance with absolute values may lead to misinterpretation of CBC data. Current Interpretive Data was last revised on 2017. Lymphocyte pct 3.3 % [facility] Comment: Interpretive Data Percent cell count reference ranges are not reported, since discordance with absolute values may lead to misinterpretation of CBC data. Current Interpretive Data was last revised on 2017. Monocyte pct 3.9 % [facility] Comment: Interpretive Data Percent cell count reference ranges are not reported, since discordance with absolute values may lead to misinterpretation of CBC data. Current Interpretive Data was last revised on 2017. Eosinophil pct 1.6 % [facility] Comment: Interpretive Data Percent cell count reference ranges are not reported, since discordance with absolute values may lead to misinterpretation of CBC data. Current Interpretive Data was last revised on 2017. Basophil pct 1.0 % [facility] Comment: Interpretive Data Percent cell count reference ranges are not reported, since discordance with absolute values may lead to misinterpretation of CBC data. Current Interpretive Data was last revised on 2017. Blood 02/11/2024 9:00 AM SHAPE CARVER 02/11/2024 11:48 AM SHAPE CARVER Rosalie Hargroveterell Velásquez ENVIRONMENTAL SCIENCE PROFESSOR LAB BLOOD ORDERABLES Final Result Performing Organization Address [facility] [employer] de Phone Number LINDA BALLARD Yen [facility] [place] [address] * Tacrolimus level trough (02/11/2024 9:00 AM SHAPE CARVER) [facility] Tacrolimus trough 7.8 ng/mL Comment: Interpretive Data Testing performed by liquid chromatography-tandem mass spectrometry. Therapeutic concentrations vary depending on type of transplanted organ and time elapsed since transplant. Typical trough concentrations range from 5-15 ng/mL. This test was developed and its performance characteristics determined by the [facility] consistent with CLIA requirements. This test has not been cleared or approved by the US Food and Drug administration. Current interpretive data last reviewed 2019. Blood 02/11/2024 9:00 AM SHAPE CARVER 02/11/2024 11:48 AM SHAPE CARVER Rosaliecarleen Velásquez ENVIRONMENTAL SCIENCE PROFESSOR LAB BLOOD ORDERABLES Final Result Performing Organization Address [facility] de Phone Number [facility] [place] [address] * (ABNORMAL) CBC with auto differential (02/11/2024 9:00 AM SHAPE CARVER) [facility] WBC 5.1 3.8 - 9.9 K/cumm Hgb 10.0(L) 13.0 - 17.5 g/dL [facility] Hct 30.9(L) 38.9 - 50.3 % [facility] Plt 168 150 - 400 K/cumm [facility] MPV 9.9 9.1 - 12.3 fL [facility] RBC 2.94(L) 4.30 - 5.80 M/cumm [facility] MCV 105.1(H) 81.3 - 96.4 fL [facility] MCH 34.0(H) 27.1 - 33.3 pg [facility] MCHC 32.4 32.3 - 35.7 g/dL [facility] RDW CV 18.3(H) 11.1 - 14.9 % [facility] RDW SD 70.2(H) 35.7 - 48.1 fL [facility] NRBC abs 0.00 0.00 - 0.01 K/cumm [facility] Blood 02/11/2024 9:00 AM SHAPE CARVER 02/11/2024 11:48 AM SHAPE CARVER Rosalie Velásquez ENVIRONMENTAL SCIENCE PROFESSOR LAB BLOOD ORDERABLES Final Result [facility] [place] [address] * Magnesium (02/11/2024 9:00 AM SHAPE CARVER) [facility] Magnesium 1.9 1.4 - 2.5 mg/dL Blood 02/11/2024 9:00 AM SHAPE CARVER 02/11/2024 11:48 AM SHAPE CARVER Rosalie Velásquez ENVIRONMENTAL SCIENCE PROFESSOR LAB BLOOD ORDERABLES Final Result Performing Organization Address City/[facility] de Phone Number [facility] [place] [address] * (ABNORMAL) Renal function panel (02/11/2024 9:00 AM SHAPE CARVER) Pathologist [facility] Sodium 141 135 - 145 mmol/L Potassium, pl 4.9 3.3 - 4.9 mmol/L [facility] Chloride 105 97 - 110 mmol/L [facility] CO2 25 22 - 32 mmol/L [facility] Anion gap 11 2 - 15 mmol/L [facility] BUN 61(H) 6 - 25 mg/dL [facility] Creatinine 3.49(H) 0.80 - 1.30 mg/dL [facility] Glucose 103 70 - 199 mg/dL [facility] Comment: Interpretive Data Fasting glucose >/= [...] 2022. Calcium 9.8 8.5 - 10.3 mg/dL [facility] Phosphorus, pl 4.6(H) 2.3 - 4.5 mg/dL [facility] Albumin 3.7 3.5 - 5.0 g/dL [facility] Blood 02/11/2024 9:00 AM SHAPE CARVER 02/11/2024 11:48 AM SHAPE CARVER us Rosalie Velásquez NP LAB BLOOD ORDERABLES Final Result [facility] One [facility] Department [place] [address] * CT Abdomen Pelvis WO Contrast (02/09/2024 3:42 PM SHAPE CARVER) Anatomical Region Laterality Modality Body N/A Computed Tomogra phy 02/09/2024 4:37 PM SHAPE CARVER Impressions 02/09/2024 4:44 PM SHAPE CARVER Postsurgical changes of right iliac fossa kidney [...] Mohsen Vallejo M.D. Narrative 02/09/2024 4:44 PM SHAPE CARVER EXAMINATION: Computed tomography of the abdomen and [...] ductal dilatation. Normal spleen, adrenals, pancreas. Atrophic [place] kidneys. No stones or hydronephrosis of the [place] kidneys. Postsurgical changes of right iliac fossa [...] ductal dilatation. Normal spleen, adrenals, pancreas. Atrophic [place] kidneys. No stones or hydronephrosis of the [place] kidneys. Postsurgical changes of right iliac fossa [...] * Creatinine, body fluid (02/09/2024 3:29 PM SHAPE CARVER) Specimen type, fld Peritoneal Creatinine, fld 4.16 [...] 2018. Chapter 43, Body Fluids, p. 925 [employer] Test directory, Body Fluid Reference Intervals and/or Interpretative Information. [email or web address] Current Interpretive Data was last revised 2018. Fluid 02/09/2024 3:29 PM SHAPE CARVER 02/09/2024 6:15 PM SHAPE CARVER us Vikki Nowak NP LAB BODY FLUIDS AND STOOLS OR DERABLES Final Result LINDA BALLARD One [facility] Department [place] [address] * (ABNORMAL) eGFR (02/09/2024 9:00 AM SHAPE CARVER) Pathologist [facility] eGFR 16(L) >=60 mL/min/1. 73 m2 Comment: [...] last reviewed 2020. Blood 02/09/2024 9:00 AM SHAPE CARVER 02/09/2024 12:18 PM SHAPE CARVER us Notinfile Unknown LAB BLOOD ORDERABLES Final Res ult [facility] One [facility] Department [place] [address] * (ABNORMAL) Differential, auto (02/09/2024 9:00 AM SHAPE CARVER) Pathologist [facility] Neutrophil abs 4.5 1.5 - 6.5 K/cumm Imm gran abs 0.0 0.0 - 0.1 K/cumm [facility] Lymphocyte abs 0.1(L) 0.8 - 3.3 K/cumm [facility] Monocyte abs 0.2 0.2 - 0.8 K/cumm [facility] Eosinophil abs 0.1 0.0 - 0.5 K/cumm [facility] Basophil abs 0.1 0.0 - 0.1 K/cumm [facility] Neutrophil pct 89.8 % [facility] Comment: Interpretive Data Percent cell count reference ranges are not reported, since discordance with absolute values may lead to misinterpretation of CBC data. Current Interpretive Data was last revised on 2017. Imm gran pct 0.2 % LINDA [facility] Comment: Interpretive Data Percent cell count reference ranges are not reported, since discordance with absolute values may lead to misinterpretation of CBC data. Current Interpretive Data was last revised on 2017. Lymphocyte pct 2.8 % LINDA [facility] Comment: Interpretive Data Percent cell count reference ranges are not reported, since discordance with absolute values may lead to misinterpretation of CBC data. Current Interpretive Data was last revised on 2017. Monocyte pct 4.2 % LINDA [facility] Comment: Interpretive Data Percent cell count reference ranges are not reported, since discordance with absolute values may lead to misinterpretation of CBC data. Current Interpretive Data was last revised on 2017. Eosinophil pct 2.0 % [facility] Comment: Interpretive Data Percent cell count reference ranges are not reported, since discordance with absolute values may lead to misinterpretation of CBC data. Current Interpretive Data was last revised on 2017. Basophil pct 1.0 % [facility] Comment: Interpretive Data Percent cell count reference ranges are not reported, since discordance with absolute values may lead to misinterpretation of CBC data. Current Interpretive Data was last revised on 2017. Blood 02/09/2024 9:00 AM SHAPE CARVER 02/09/2024 11:59 AM SHAPE CARVER us Notinf[employer] Unknown LAB BLOOD ORDERABLES Final Res ult [facility] One [facility] Department of Laboratories [place], [place] [id number] * Tacrolimus level trough (02/09/2024 9:00 AM SHAPE CARVER) [facility] Tacrolimus trough 7.5 ng/mL Comment: Interpretive Data Testing performed by liquid chromatography-tandem mass spectrometry. Therapeutic concentrations vary depending on type of transplanted organ and time elapsed since transplant. Typical trough concentrations range from 5-15 ng/mL. This test was developed and its performance characteristics determined by the [facility] consistent with CLIA requirements. This test has not been cleared or approved by the US Food and Drug administration. Current interpretive data last reviewed 2019. Blood 02/09/2024 9:00 AM SHAPE CARVER 02/09/2024 12:01 PM SHAPE CARVER us Notinfile Unknown LAB BLOOD ORDERABLES Final Res ult [facility] Department [place] [address] * (ABNORMAL) CBC with auto differential (02/09/2024 9:00 AM SHAPE CARVER) WBC 5.0 3.8 - 9.9 K/cumm Hgb 9.7(L) 13.0 - 17.5 g/dL [facility] Hct 30.2(L) 38.9 - 50.3 % [facility] Plt 163 150 - 400 K/cumm [facility] MPV 10.4 9.1 - 12.3 fL [facility] RBC 2.91(L) 4.30 - 5.80 M/cumm [facility] MCV 103.8(H) 81.3 - 96.4 fL [facility] MCH 33.3 27.1 - 33.3 pg [facility] MCHC 32.1(L) 32.3 - 35.7 g/dL [facility] RDW CV 18.4(H) 11.1 - 14.9 % [facility] RDW SD 69.5(H) 35.7 - 48.1 fL [facility] NRBC abs 0.00 0.00 - 0.01 K/cumm [facility] Blood 02/09/2024 9:00 AM SHAPE CARVER 02/09/2024 11:59 AM SHAPE CARVER us Notinfile Unknown LAB BLOOD ORDERABLES Final Res ult [facility] Department [place] [address] * Magnesium (02/09/2024 9:00 AM SHAPE CARVER) Pathologist [facility] Magnesium 2.0 1.4 - 2.5 mg/dL Blood 02/09/2024 9:00 AM SHAPE CARVER 02/09/2024 11:59 AM SHAPE CARVER us Notinfile Unknown LAB BLOOD ORDERABLES Final Res ult [facility] One [facility] Department [place] [address] * (ABNORMAL) Renal function panel (02/09/2024 9:00 AM SHAPE CARVER) Pathologist [facility] Sodium 143 135 - 145 mmol/L Potassium, pl 4.6 3.3 - 4.9 mmol/L [facility] Chloride 104 97 - 110 mmol/L [facility] CO2 27 22 - 32 mmol/L [facility] Anion gap 12 2 - 15 mmol/L [facility] BUN 60(H) 6 - 25 mg/dL [facility] Creatinine 3.91(H) 0.80 - 1.30 mg/dL [facility] Glucose 129 70 - 199 mg/dL [facility] Comment: Interpretive Data Fasting glucose >/= [...] 2022. Calcium 9.9 8.5 - 10.3 mg/dL [facility] Phosphorus, pl 4.5 2.3 - 4.5 mg/dL [facility] Albumin 3.7 3.5 - 5.0 g/dL [facility] Blood 02/09/2024 9:00 AM SHAPE CARVER 02/09/2024 11:59 AM SHAPE CARVER us Notinfile Unknown LAB BLOOD ORDERABLES Final Res ult Performing Organization Address [facility]/ZIP Co de Phone Number LINDA [facility] Department [place] [address] * (ABNORMAL) eGFR (02/04/2024 8:52 AM SHAPE CARVER) eGFR 17(L) >=60 mL/min/1. 73 m2 Comment: [...] last reviewed 2020. Blood 02/04/2024 8:52 AM SHAPE CARVER 02/04/2024 1:15 PM SHAPE CARVER us Notinfile Unknown LAB BLOOD ORDERABLES Final Res ult Performing Organization Address City/[facility]/ZIP Co de Phone Number [facility] Department [place] [address] * (ABNORMAL) Differential, auto (02/04/2024 8:52 AM SHAPE CARVER) Neutrophil abs 6.1 1.5 - 6.5 K/cumm Imm gran abs 0.0 0.0 - 0.1 K/cumm [facility] Lymphocyte abs 0.1(L) 0.8 - 3.3 K/cumm [facility] Monocyte abs 0.4 0.2 - 0.8 K/cumm [facility] Eosinophil abs 0.1 0.0 - 0.5 K/cumm [facility] Basophil abs 0.0 0.0 - 0.1 K/cumm [facility] Neutrophil pct 90.2 % [facility] Comment: Interpretive Data Percent cell count reference ranges are not reported, since discordance with absolute values may lead to misinterpretation of CBC data. Current Interpretive Data was last revised on 2017. Imm gran pct 0.6 % [facility] Comment: Interpretive Data Percent cell count reference ranges are not reported, since discordance with absolute values may lead to misinterpretation of CBC data. Current Interpretive Data was last revised on 2017. Lymphocyte pct 1.9 % [facility] Comment: Interpretive Data Percent cell count reference ranges are not reported, since discordance with absolute values may lead to misinterpretation of CBC data. Current Interpretive Data was last revised on 2017. Monocyte pct 5.4 % [facility] Comment: Interpretive Data Percent cell count reference ranges are not reported, since discordance with absolute values may lead to misinterpretation of CBC data. Current Interpretive Data was last revised on 2017. Eosinophil pct 1.5 % [facility] Comment: Interpretive Data Percent cell count reference ranges are not reported, since discordance with absolute values may lead to misinterpretation of CBC data. Current Interpretive Data was last revised on 2017. Basophil pct 0.4 % [facility] Comment: Interpretive Data Percent cell count reference ranges are not reported, since discordance with absolute values may lead to misinterpretation of CBC data. Current Interpretive Data was last revised on 2017. Blood 02/04/2024 8:52 AM SHAPE CARVER 02/04/2024 1:09 PM SHAPE CARVER us Notinfile Unknown LAB BLOOD ORDERABLES Final Res ult [facility] One [facility] Department [place] [address] * Tacrolimus level trough (02/04/2024 8:52 AM SHAPE CARVER) [facility] Tacrolimus trough 7.8 ng/mL Comment: Interpretive Data Testing performed by liquid chromatography-tandem mass spectrometry. Therapeutic concentrations vary depending on type of transplanted organ and time elapsed since transplant. Typical trough concentrations range from 5-15 ng/mL. This test was developed and its performance characteristics determined by the [facility] consistent with CLIA requirements. This test has not been cleared or approved by the [place] Food and Drug administration. Current interpretive data last reviewed 2019. Blood 02/04/2024 8:52 AM SHAPE CARVER 02/04/2024 1:09 PM SHAPE CARVER us Notinfile Unknown LAB BLOOD ORDERABLES Final Res ult [facility] One [facility] [place] [address] * (ABNORMAL) CBC with auto differential (02/04/2024 8:52 AM SHAPE CARVER) [facility] WBC 6.8 3.8 - 9.9 K/cumm Hgb 9.1(L) 13.0 - 17.5 g/dL [facility] Hct 27.6(L) 38.9 - 50.3 % [facility] Plt 141(L) 150 - 400 K/cumm [facility] MPV 10.8 9.1 - 12.3 fL [facility] RBC 2.71(L) 4.30 - 5.80 M/cumm [facility] MCV 101.8(H) 81.3 - 96.4 fL [facility] MCH 33.6(H) 27.1 - 33.3 pg [facility] MCHC 33.0 32.3 - 35.7 g/dL [facility] RDW CV 18.4(H) 11.1 - 14.9 % [facility] RDW SD 67.1(H) 35.7 - 48.1 fL [facility] NRBC abs 0.00 0.00 - 0.01 K/cumm [facility] Blood 02/04/2024 8:52 AM SHAPE CARVER 02/04/2024 1:09 PM SHAPE CARVER us Notinfile Unknown LAB BLOOD ORDERABLES Final Res ult Performing Organization Address [facility] Co de Phone Number [facility] [place] [address] * Magnesium (02/04/2024 8:52 AM SHAPE CARVER) Magnesium 2.2 1.4 - 2.5 mg/dL Blood 02/04/2024 8:52 AM SHAPE CARVER 02/04/2024 1:07 PM SHAPE CARVER us Notinfile Unknown LAB BLOOD ORDERABLES Final Res ult Performing Organization Address [facility] de Phone Number [facility] [place] [address] * Creatinine, body fluid (02/04/2024 8:52 AM SHAPE CARVER) Specimen type, fld CONSTANZA FLUID. PG Creatinine, fld 3.53 mg/dL [facility] Comment: The above specimen type is [...] 2018. Chapter 43, Body Fluids, p. 925 [employer] Test directory, Body Fluid Reference Intervals and/or Interpretative Information. [email or web address] Current Interpretive Data was last revised 2018. Fluid 02/04/2024 8:52 AM SHAPE CARVER 02/04/2024 1:09 PM SHAPE CARVER us Notinfile Unknown LAB BODY FLUIDS AND STOOLS ORD ERABLES Final Result Performing Organization Address City/[facility]/ZIP Co de Phone Number [facility] [place] [address] * (ABNORMAL) Renal function panel (02/04/2024 8:52 AM SHAPE CARVER) [facility] Sodium 138 135 - 145 mmol/L Potassium, pl 3.8 3.3 - 4.9 mmol/L [facility] Chloride 98 97 - 110 mmol/L [facility] CO2 31 22 - 32 mmol/L [facility] Anion gap 9 2 - 15 mmol/L [facility] BUN 38(H) 6 - 25 mg/dL [facility] Creatinine 3.73(H) 0.80 - 1.30 mg/dL [facility] Glucose 126 70 - 199 mg/dL [facility] Comment: Interpretive Data Fasting glucose >/= [...] 2022. Calcium 9.4 8.5 - 10.3 mg/dL [facility] Phosphorus, pl 4.9(H) 2.3 - 4.5 mg/dL [facility] Albumin 3.5 3.5 - 5.0 g/dL [facility] Blood 02/04/2024 8:52 AM SHAPE CARVER 02/04/2024 1:07 PM SHAPE CARVER us Notinfile Unknown LAB BLOOD ORDERABLES Final Res ult [facility] Yen [facility] Department [place] [address] * (ABNORMAL) eGFR (02/02/2024 9:00 AM SHAPE CARVER) [facility] eGFR 15(L) >=60 mL/min/1. 73 m2 Comment: [...] last reviewed 2020. Blood 02/02/2024 9:00 AM SHAPE CARVER 02/02/2024 7:39 PM SHAPE CARVER Matthew Marti MD LAB BLOOD ORDERABLES Final Result [facility] One [facility] Department [place] [address] * (ABNORMAL) Differential, auto (02/02/2024 9:00 AM SHAPE CARVER) [facility] Neutrophil abs 6.9(H) 1.5 - 6.5 K/cumm Imm gran abs 0.1 0.0 - 0.1 K/cumm [facility] Lymphocyte abs 0.1(L) 0.8 - 3.3 K/cumm [facility] Monocyte abs 0.5 0.2 - 0.8 K/cumm [facility] Eosinophil abs 0.2 0.0 - 0.5 K/cumm [facility] Basophil abs 0.0 0.0 - 0.1 K/cumm [facility] Neutrophil pct 88.8 % [facility] Comment: Interpretive Data Percent cell count reference ranges are not reported, since discordance with absolute values may lead to misinterpretation of CBC data. Current Interpretive Data was last revised on 2017. Imm gran pct 1.0 % [facility] Comment: Interpretive Data Percent cell count reference ranges are not reported, since discordance with absolute values may lead to misinterpretation of CBC data. Current Interpretive Data was last revised on 2017. Lymphocyte pct 1.8 % [facility] Comment: Interpretive Data Percent cell count reference ranges are not reported, since discordance with absolute values may lead to misinterpretation of CBC data. Current Interpretive Data was last revised on 2017. Monocyte pct 5.8 % [facility] Comment: Interpretive Data Percent cell count reference ranges are not reported, since discordance with absolute values may lead to misinterpretation of CBC data. Current Interpretive Data was last revised on 2017. Eosinophil pct 2.1 % [facility] Comment: Interpretive Data Percent cell count reference ranges are not reported, since discordance with absolute values may lead to misinterpretation of CBC data. Current Interpretive Data was last revised on 2017. Basophil pct 0.5 % [facility] Comment: Interpretive Data Percent cell count reference ranges are not reported, since discordance with absolute values may lead to misinterpretation of CBC data. Current Interpretive Data was last revised on 2017. Blood 02/02/2024 9:00 AM SHAPE CARVER 02/02/2024 7:37 PM SHAPE CARVER Matthew Marti MD LAB BLOOD ORDERABLES Final Result [facility] One [facility] Department [place] [address] * Tacrolimus level trough (02/02/2024 9:00 AM SHAPE CARVER) Tacrolimus trough 8.2 ng/mL Comment: Interpretive Data Testing performed by liquid chromatography-tandem mass spectrometry. Therapeutic concentrations vary depending on type of transplanted organ and time elapsed since transplant. Typical trough concentrations range from 5-15 ng/mL. This test was developed and its performance characteristics determined by the [facility] consistent with CLIA requirements. This test has not been cleared or approved by the US Food and Drug administration. Current interpretive data last reviewed 2019. Blood 02/02/2024 9:00 AM SHAPE CARVER 02/02/2024 7:37 PM SHAPE CARVER Matthew Marti MD LAB BLOOD ORDERABLES Final Result Performing Organization Address City/[facility]/ZIP Co de Phone Number [facility] [place] [address] * (ABNORMAL) CBC with auto differential (02/02/2024 9:00 AM SHAPE CARVER) WBC 7.7 3.8 - 9.9 K/cumm Hgb 9.6(L) 13.0 - 17.5 g/dL [facility] Hct 29.6(L) 38.9 - 50.3 % [facility] Plt 180 150 - 400 K/cumm [facility] MPV 11.1 9.1 - 12.3 fL [facility] RBC 2.92(L) 4.30 - 5.80 M/cumm [facility] MCV 101.4(H) 81.3 - 96.4 fL [facility] MCH 32.9 27.1 - 33.3 pg [facility] MCHC 32.4 32.3 - 35.7 g/dL [facility] RDW CV 18.3(H) 11.1 - 14.9 % [facility] RDW SD 64.1(H) 35.7 - 48.1 fL [facility] NRBC abs 0.02(H) 0.00 - 0.01 K/cumm [facility] Blood 02/02/2024 9:00 AM SHAPE CARVER 02/02/2024 7:37 PM SHAPE CARVER Matthew Marti MD LAB BLOOD ORDERABLES Final Result Performing Organization Address City/[facility]/ZIP Co de Phone Number [facility] [place] [address] * Magnesium (02/02/2024 9:00 AM SHAPE CARVER) Magnesium 2.0 1.4 - 2.5 mg/dL Blood 02/02/2024 9:00 AM SHAPE CARVER 02/02/2024 7:36 PM SHAPE CARVER Matthew Marti MD LAB BLOOD ORDERABLES Final Result [facility] One [facility] Department [place] [address] * (ABNORMAL) Renal function panel (02/02/2024 9:00 AM SHAPE CARVER) Sodium 141 135 - 145 mmol/L Potassium, pl 3.4 3.3 - 4.9 mmol/L [facility] Chloride 95(L) 97 - 110 mmol/L [facility] CO2 29 22 - 32 mmol/L [facility] Anion gap 17(H) 2 - 15 mmol/L [facility] BUN 41(H) 6 - 25 mg/dL [facility] Creatinine 4.08(H) 0.80 - 1.30 mg/dL [facility] Glucose 82 70 - 199 mg/dL [facility] Comment: Interpretive Data Fasting glucose >/= [...] 2022. Calcium 9.4 8.5 - 10.3 mg/dL [facility] Phosphorus, pl 5.3(H) 2.3 - 4.5 mg/dL [facility] Albumin 3.6 3.5 - 5.0 g/dL [facility] Blood 02/02/2024 9:00 AM SHAPE CARVER 02/02/2024 7:36 PM SHAPE CARVER Matthew Marti MD LAB BLOOD ORDERABLES Final Result Performing Organization Address [facility] Co de Phone Number [facility] [place] [address] * POCT glucose (01/28/2024 5:58 PM SHAPE CARVER) Glucose, POC 163 70 - 199 mg/dL Blood 01/28/2024 5:58 PM SHAPE CARVER 01/28/2024 5:58 PM SHAPE CARVER Ayush Galvez MD LAB POCT ORDERABLES - DEVIC E Final Result Performing Organization Address [facility] [place] [address] * POCT glucose (01/28/2024 12:47 PM SHAPE CARVER) Glucose, POC 170 70 - 199 mg/dL Blood 01/28/2024 12:4 7 PM SHAPE CARVER 01/28/2024 12:47 PM SHAPE CARVER us Ayush Galvez MD LAB POCT ORDERABLES - DEVIC E Final Result Performing Organization Address [facility] Co de Phone Number [facility] [place] [address] * POCT glucose (01/28/2024 8:44 AM SHAPE CARVER) Glucose, POC 113 70 - 199 mg/dL Blood 01/28/2024 8:44 AM SHAPE CARVER 01/28/2024 8:44 AM SHAPE CARVER us Ayush Galvez MD LAB POCT ORDERABLES - DEVIC E Final Result Performing Organization Address [facility] Co de Phone Number [facility] [place] [address] * (ABNORMAL) eGFR (01/28/2024 4:15 AM SHAPE CARVER) eGFR 13(L) >=60 mL/min/1. 73 m2 Comment: [...] last reviewed 2020. Blood 01/28/2024 4:15 AM SHAPE CARVER 01/28/2024 4:29 AM SHAPE CARVER Ayush Galvez MD LAB BLOOD ORDERABLES Final Result [facility] One [facility] Department [place] [address] * (ABNORMAL) Differential, auto (01/28/2024 4:15 AM SHAPE CARVER) Pathologist [facility] Neutrophil abs 7.5(H) 1.5 - 6.5 K/cumm Imm gran abs 0.5(H) 0.0 - 0.1 K/cumm [facility] Lymphocyte abs 0.1(L) 0.8 - 3.3 K/cumm [facility] Monocyte abs 0.5 0.2 - 0.8 K/cumm [facility] Eosinophil abs 0.1 0.0 - 0.5 K/cumm [facility] Basophil abs 0.0 0.0 - 0.1 K/cumm [facility] Neutrophil pct 87.1 % [facility] Comment: Interpretive Data Percent cell count reference ranges are not reported, since discordance with absolute values may lead to misinterpretation of CBC data. Current Interpretive Data was last revised on 2017. Imm gran pct 5.3 % [facility] Comment: Interpretive Data Percent cell count reference ranges are not reported, since discordance with absolute values may lead to misinterpretation of CBC data. Current Interpretive Data was last revised on 2017. Lymphocyte pct 1.4 % [facility] Comment: Interpretive Data Percent cell count reference ranges are not reported, since discordance with absolute values may lead to misinterpretation of CBC data. Current Interpretive Data was last revised on 2017. Monocyte pct 5.4 % [facility] Comment: Interpretive Data Percent cell count reference ranges are not reported, since discordance with absolute values may lead to misinterpretation of CBC data. Current Interpretive Data was last revised on 2017. Eosinophil pct 0.6 % [facility] Comment: Interpretive Data Percent cell count reference ranges are not reported, since discordance with absolute values may lead to misinterpretation of CBC data. Current Interpretive Data was last revised on 2017. Basophil pct 0.2 % [facility] Comment: Interpretive Data Percent cell count reference ranges are not reported, since discordance with absolute values may lead to misinterpretation of CBC data. Current Interpretive Data was last revised on 2017. Blood 01/28/2024 4:15 AM SHAPE CARVER 01/28/2024 4:27 AM SHAPE CARVER us Ayush Galvez MD LAB BLOOD ORDERABLES Final Result [facility] One [facility] Department of Laboratories [place], [place] [id number] * Tacrolimus level trough (01/28/2024 4:15 AM SHAPE CARVER) [facility] Tacrolimus trough 12.2 ng/mL Comment: Interpretive Data Testing performed by liquid chromatography-tandem mass spectrometry. Therapeutic concentrations vary depending on type of transplanted organ and time elapsed since transplant. Typical trough concentrations range from 5-15 ng/mL. This test was developed and its performance characteristics determined by the [facility] consistent with CLIA requirements. This test has not been cleared or approved by the US Food and Drug administration. Current interpretive data last reviewed 2019. Blood 01/28/2024 4:15 AM SHAPE CARVER 01/28/2024 4:27 AM SHAPE CARVER Ayush Galvez MD LAB BLOOD ORDERABLES Final Result Performing Organization Address City/[facility]/ZIP Co de Phone Number [facility] One [facility] Department [place] [address] * (ABNORMAL) CBC with auto differential (01/28/2024 4:15 AM SHAPE CARVER) WBC 8.6 3.8 - 9.9 K/cumm Hgb 9.5(L) 13.0 - 17.5 g/dL [facility] Hct 29.1(L) 38.9 - 50.3 % [facility] Plt 160 150 - 400 K/cumm [facility] MPV 11.1 9.1 - 12.3 fL [facility] RBC 3.06(L) 4.30 - 5.80 M/cumm [facility] MCV 95.1 81.3 - 96.4 fL [facility] MCH 31.0 27.1 - 33.3 pg [facility] MCHC 32.6 32.3 - 35.7 g/dL [facility] RDW CV 17.0(H) 11.1 - 14.9 % [facility] RDW SD 57.3(H) 35.7 - 48.1 fL [facility] NRBC abs 0.06(H) 0.00 - 0.01 K/cumm [facility] Blood 01/28/2024 4:15 AM SHAPE CARVER 01/28/2024 4:27 AM SHAPE CARVER Ayush Galvez MD LAB BLOOD ORDERABLES Final Result Performing Organization Address City/[facility]/ZIP Co de Phone Number [facility] Department [place] [address] * Magnesium (01/28/2024 4:15 AM SHAPE CARVER) Pathologist [facility] Magnesium 2.1 1.4 - 2.5 mg/dL Blood 01/28/2024 4:15 AM SHAPE CARVER 01/28/2024 4:29 AM SHAPE CARVER us Ayush Galvez MD LAB BLOOD ORDERABLES Final Result [facility] Department [place] [address] * (ABNORMAL) Renal function panel (01/28/2024 4:15 AM SHAPE CARVER) [facility] Sodium 139 135 - 145 mmol/L Potassium, pl 3.7 3.3 - 4.9 mmol/L [facility] Chloride 94(L) 97 - 110 mmol/L [facility] CO2 29 22 - 32 mmol/L [facility] Anion gap 16(H) 2 - 15 mmol/L [facility] BUN 39(H) 6 - 25 mg/dL [facility] Creatinine 4.80(H) 0.80 - 1.30 mg/dL [facility] Glucose 126 70 - 199 mg/dL [facility] Comment: Interpretive Data Fasting glucose >/= [...] 2022. Calcium 9.9 8.5 - 10.3 mg/dL [facility] Phosphorus, pl 5.3(H) 2.3 - 4.5 mg/dL [facility] Albumin 3.4(L) 3.5 - 5.0 g/dL [facility] Blood 01/28/2024 4:15 AM SHAPE CARVER 01/28/2024 4:29 AM SHAPE CARVER Ayush Galvez MD LAB BLOOD ORDERABLES Final Result Performing Organization Address [facility] de Phone Number [facility] [place] [address] * POCT glucose (01/27/2024 9:07 PM SHAPE CARVER) Glucose, POC 180 70 - 199 mg/dL Blood 01/27/2024 9:07 PM SHAPE CARVER 01/27/2024 9:07 PM SHAPE CARVER Ayush Galvez MD LAB POCT ORDERABLES - DEVIC E Final Result Performing Organization Address [facility] Phone Number [facility] [place] [address] * (ABNORMAL) POCT glucose (01/27/2024 5:55 PM SHAPE CARVER) [facility] Glucose, POC 241(H) 70 - 199 mg/dL Blood 01/27/2024 5:55 PM SHAPE CARVER 01/27/2024 5:55 PM SHAPE CARVER Ayush Galvez MD LAB POCT ORDERABLES - DEVIC E Final Result Performing Organization Address [facility] de Phone Number [facility] [place] [address] * ECG 12 lead (01/27/2024 3:35 PM SHAPE CARVER) [facility] Signature Ventricular Rate EKG/Min 82 BPM [facility] QRS-Interval (MSEC) 144 ms [facility] QT-Interval (MSEC) 466 ms [facility] QTc 544 ms [facility] R Bend 4 degrees [facility] T Bend 20 degrees [facility] Diagnosis Atrial fibrillation with a premature ventricular beat or aberrantly conducted beat Non-specific intra-ventricul ar conduction block Abnormal ECG When compared with ECG of 25-JAN-2024 13:31, no significant change Confirmed by OLEKSANDR MATUTE M.D ([id number]) on 01/29/2024 10:04:40 AM [facility] 01/27/2024 3:35 PM SHAPE CARVER 01/29/2024 10:04 AM SHAPE CARVER us Ayush Galvez MD ECG ORDERABLES Final Resul t [facility] [employer] [facility] * POCT glucose (01/27/2024 12:24 PM SHAPE CARVER) Glucose, POC 186 70 - 199 mg/dL Blood 01/27/2024 12:2 4 PM SH[employer] CARVER 01/27/2024 12:24 PM SHAPE CARVER us Ayush Galvez MD LAB POCT ORDERABLES - DEVIC E Final Result [facility] Department [place] [address] * (ABNORMAL) eGFR (01/27/2024 4:17 AM SHAPE CARVER) eGFR 12(L) >=60 mL/min/1. 73 m2 Comment: [...] last reviewed 2020. Blood 01/27/2024 4:17 AM SHAPE CARVER 01/27/2024 5:22 AM SHAPE CARVER us Ayush Galvez MD LAB BLOOD ORDERABLES Final Result [facility] One [facility] Department [place] [address] * (ABNORMAL) Differential, auto (01/27/2024 4:17 AM SHAPE CARVER) Neutrophil abs 5.7 1.5 - 6.5 K/cumm Imm gran abs 0.3(H) 0.0 - 0.1 K/cumm [facility] Lymphocyte abs 0.1(L) 0.8 - 3.3 K/cumm [facility] Monocyte abs 0.3 0.2 - 0.8 K/cumm [facility] Eosinophil abs 0.0 0.0 - 0.5 K/cumm [facility] Basophil abs 0.0 0.0 - 0.1 K/cumm [facility] Neutrophil pct 88.4 % [facility] Comment: Interpretive Data Percent cell count reference ranges are not reported, since discordance with absolute values may lead to misinterpretation of CBC data. Current Interpretive Data was last revised on 2017. Imm gran pct 4.2 % [facility] Comment: Interpretive Data Percent cell count reference ranges are not reported, since discordance with absolute values may lead to misinterpretation of CBC data. Current Interpretive Data was last revised on 2017. Lymphocyte pct 1.7 % [facility] Comment: Interpretive Data Percent cell count reference ranges are not reported, since discordance with absolute values may lead to misinterpretation of CBC data. Current Interpretive Data was last revised on 2017. Monocyte pct 5.0 % [facility] Comment: Interpretive Data Percent cell count reference ranges are not reported, since discordance with absolute values may lead to misinterpretation of CBC data. Current Interpretive Data was last revised on 2017. Eosinophil pct 0.5 % [facility] Comment: Interpretive Data Percent cell count reference ranges are not reported, since discordance with absolute values may lead to misinterpretation of CBC data. Current Interpretive Data was last revised on 2017. Basophil pct 0.2 % [facility] Comment: Interpretive Data Percent cell count reference ranges are not reported, since discordance with absolute values may lead to misinterpretation of CBC data. Current Interpretive Data was last revised on 2017. Blood 01/27/2024 4:17 AM SHAPE CARVER 01/27/2024 5:22 AM SHAPE CARVER Ayush Galvez MD LAB BLOOD ORDERABLES Final Result Performing Organization Address [facility] de Phone Number [facility] [place] [address] * Tacrolimus level trough (01/27/2024 4:17 AM SHAPE CARVER) Pathologist [facility] Tacrolimus trough 12.2 ng/mL Comment: Interpretive Data Testing performed by liquid chromatography-tandem mass spectrometry. Therapeutic concentrations vary depending on type of transplanted organ and time elapsed since transplant. Typical trough concentrations range from 5-15 ng/mL. This test was developed and its performance characteristics determined by the [facility] consistent with CLIA requirements. This test has not been cleared or approved by the [place] Food and Drug administration. Current interpretive data last reviewed 2019. Blood 01/27/2024 4:17 AM SHAPE CARVER 01/27/2024 5:22 AM SHAPE CARVER Ayush Galvez MD LAB BLOOD ORDERABLES Final Result Performing Organization Address [facility] de Phone Number [facility] Department [place] [address] * (ABNORMAL) CBC with auto differential (01/27/2024 4:17 AM SHAPE CARVER) Pathologist [facility] WBC 6.5 3.8 - 9.9 K/cumm Hgb 9.1(L) 13.0 - 17.5 g/dL [facility] Hct 26.8(L) 38.9 - 50.3 % [facility] Plt 144(L) 150 - 400 K/cumm [facility] MPV 11.8 9.1 - 12.3 fL [facility] RBC 2.85(L) 4.30 - 5.80 M/cumm [facility] MCV 94.0 81.3 - 96.4 fL [facility] MCH 31.9 27.1 - 33.3 pg [facility] MCHC 34.0 32.3 - 35.7 g/dL [facility] RDW CV 16.9(H) 11.1 - 14.9 % [facility] RDW SD 55.8(H) 35.7 - 48.1 fL [facility] NRBC abs 0.03(H) 0.00 - 0.01 K/cumm [facility] Blood 01/27/2024 4:17 AM SHAPE CARVER 01/27/2024 5:22 AM SHAPE CARVER Ayush Galvez MD LAB BLOOD ORDERABLES Final Result Performing Organization Address City/[facility] Co de Phone Number [facility] [place] [address] * Magnesium (01/27/2024 4:17 AM SHAPE CARVER) Pathologist [facility] Magnesium 2.4 1.4 - 2.5 mg/dL Blood 01/27/2024 4:17 AM SH[employer] CARVER 01/27/2024 5:22 AM SHAPE CARVER Ayush Galvez MD LAB BLOOD ORDERABLES Final Result [facility] [place] [address] * (ABNORMAL) Renal function panel (01/27/2024 4:17 AM SHAPE CARVER) Sodium 136 135 - 145 mmol/L Potassium, pl 3.9 3.3 - 4.9 mmol/L [facility] Comment:Hemolyzed; Potassium value may be falsely elevated by as much as 0.6-1.0 mmol/L. Suggest redraw and reanalysis. Chloride 93(L) 97 - 110 mmol/L [facility] CO2 29 22 - 32 mmol/L [facility] Anion gap 14 2 - 15 mmol/L [facility] BUN 47(H) 6 - 25 mg/dL [facility] Creatinine 5.15(H) 0.80 - 1.30 mg/dL [facility] Glucose 136 70 - 199 mg/dL [facility] Comment: Interpretive Data Fasting glucose >/= [...] 2022. Calcium 9.8 8.5 - 10.3 mg/dL [facility] Phosphorus, pl 5.8(H) 2.3 - 4.5 mg/dL [facility] Comment:Reviewed Albumin 3.2(L) 3.5 - 5.0 g/dL [facility] Blood 01/27/2024 4:17 AM SHAPE CARVER 01/27/2024 5:22 AM SHAPE CARVER us Ayush Galvez MD LAB BLOOD ORDERABLES Final Result [facility] [facility] Department of Laboratories [place], [place] [id number] * POCT glucose (01/26/2024 7:59 PM SHAPE CARVER) [facility] Glucose, POC 152 70 - 199 mg/dL Blood 01/26/2024 7:59 PM SHAPE CARVER 01/26/2024 7:59 PM SHAPE CARVER us Ayush Galvez MD LAB POCT ORDERABLES - DEVIC E Final Result Performing Organization Address [facility] de Phone Number [facility] [place] [address] * POCT glucose (01/26/2024 5:15 PM SHAPE CARVER) Glucose, POC 189 70 - 199 mg/dL Blood 01/26/2024 5:15 PM SHAPE CARVER 01/26/2024 5:15 PM SHAPE CARVER us Ayush Galvez MD LAB POCT ORDERABLES - DEVIC E Final Result Performing Organization Address [facility] de Phone Number [facility] [place] [address] * POCT glucose (01/26/2024 1:48 PM SHAPE CARVER) Glucose, POC 149 70 - 199 mg/dL Blood 01/26/2024 1:48 PM SHAPE CARVER 01/26/2024 1:48 PM SHAPE CARVER us Ayush Galvez MD LAB POCT ORDERABLES - DEVIC E Final Result Performing Organization Address [facility] de Phone Number [facility] [place] [address] * POCT glucose (01/26/2024 12:06 PM SHAPE CARVER) Glucose, POC 180 70 - 199 mg/dL Blood 01/26/2024 12:0 6 PM SHAPE CARVER 01/26/2024 12:06 PM SHAPE CARVER us Ayush Galvez MD LAB POCT ORDERABLES - DEVIC E Final Result Performing Organization Address [facility] [place] [address] * Transfuse RBC (01/26/2024 9:55 AM SHAPE CARVER) Blood Ayush Galvez MD BLOOD TRANSFUSION ORDERABLE S Edited Result - Final Performing Organization Address [facility] [address] * POCT glucose (01/26/2024 8:25 AM SHAPE CARVER) Glucose, POC 175 70 - 199 mg/dL Blood 01/26/2024 8:25 AM SHAPE CARVER 01/26/2024 8:25 AM SHAPE CARVER Result [facility] Ayush Galvez MD LAB POCT ORDERABLES - DEVIC E Final Result Performing Organization Address [facility]/[place] [address] * Type and screen (01/26/2024 6:19 AM SHAPE CARVER) Pathologist [facility] [place], indirect Negative ABO Rh O Negative [facility] Blood 01/26/2024 6:19 AM SHAPE CARVER 01/26/2024 6:30 AM SHAPE CARVER Narrative [facility] - 01/26/2024 7:36 AM SHAPE CARVER Has the patient had Daratumumab or Isatuximab in the past 6 months?->Unknown Ayush Galvez MD LAB BLOOD BANK TEST ORDERAB LES Final Result Performing Organization Address [facility] [address] * Prepare RBC: 1 Units (01/26/2024 5:41 AM SHAPE CARVER) Pathologist [facility] Product code [id number] Unit Number [id number] * [facility] Product Blood Type ONEG [facility] Dispense Status PRESUMED TRANSFUSED [facility] Blood 01/26/2024 5:41 AM SHAPE CARVER 01/26/2024 5:41 AM SHAPE CARVER Narrative [facility] - 01/26/2024 4:02 PM SHAPE CARVER Are special requirements needed? (All products are leukoreduced and CMV- safe)- >No Date required:-[id number] LRRBC # of [id number] Reasons:-Cardiovascular disease, Hgb <8 g/dL} us Ayush Galvez MD BLOOD BANK PRODUCT ORDERABL ES Final Result Performing Organization Address City/[facility]/ZIP Co de Phone Number [facility] Department [place] [address] * (ABNORMAL) eGFR (01/26/2024 4:39 AM SHAPE CARVER) eGFR 9(L) >=60 mL/min/1. 73 m2 Comment: [...] last reviewed 2020. Blood 01/26/2024 4:39 AM SHAPE CARVER 01/26/2024 5:17 AM SHAPE CARVER us Ayush Galvez MD LAB BLOOD ORDERABLES Final Result LINDA BALLARD [facility] Department [place] [address] * (ABNORMAL) Differential, auto (01/26/2024 4:39 AM SHAPE CARVER) Neutrophil abs 4.2 1.5 - 6.5 K/cumm Imm gran abs 0.1 0.0 - 0.1 K/cumm [facility] Lymphocyte abs 0.1(L) 0.8 - 3.3 K/cumm [facility] Monocyte abs 0.2 0.2 - 0.8 K/cumm [facility] Eosinophil abs 0.0 0.0 - 0.5 K/cumm [facility] Basophil abs 0.0 0.0 - 0.1 K/cumm [facility] Neutrophil pct 91.1 % [facility] Comment: Interpretive Data Percent cell count reference ranges are not reported, since discordance with absolute values may lead to misinterpretation of CBC data. Current Interpretive Data was last revised on 2017. Imm gran pct 2.0 % [facility] Comment: Interpretive Data Percent cell count reference ranges are not reported, since discordance with absolute values may lead to misinterpretation of CBC data. Current Interpretive Data was last revised on 2017. Lymphocyte pct 1.7 % [facility] Comment: Interpretive Data Percent cell count reference ranges are not reported, since discordance with absolute values may lead to misinterpretation of CBC data. Current Interpretive Data was last revised on 2017. Monocyte pct 5.2 % [facility] Comment: Interpretive Data Percent cell count reference ranges are not reported, since discordance with absolute values may lead to misinterpretation of CBC data. Current Interpretive Data was last revised on 2017. Eosinophil pct 0.0 % [facility] Comment: Interpretive Data Percent cell count reference ranges are not reported, since discordance with absolute values may lead to misinterpretation of CBC data. Current Interpretive Data was last revised on 2017. Basophil pct 0.0 % [facility] Comment: Interpretive Data Percent cell count reference ranges are not reported, since discordance with absolute values may lead to misinterpretation of CBC data. Current Interpretive Data was last revised on 2017. Blood 01/26/2024 4:39 AM SHAPE CARVER 01/26/2024 5:17 AM SHAPE CARVER Ayush Galvez MD LAB BLOOD ORDERABLES Final Result Performing Organization Address [facility] de Phone Number [facility] [place] [address] * Tacrolimus level trough (01/26/2024 4:39 AM SHAPE CARVER) [facility] Tacrolimus trough 8.9 ng/mL Comment: Interpretive Data Testing performed by liquid chromatography-tandem mass spectrometry. Therapeutic concentrations vary depending on type of transplanted organ and time elapsed since transplant. Typical trough concentrations range from 5-15 ng/mL. This test was developed and its performance characteristics determined by the [facility] consistent with CLIA requirements. This test has not been cleared or approved by the US Food and Drug administration. Current interpretive data last reviewed 2019. Blood 01/26/2024 4:39 AM SHAPE CARVER 01/26/2024 5:17 AM SHAPE CARVER Ayush Galvez MD LAB BLOOD ORDERABLES Final Result Performing Organization Address [facility] de Phone Number [facility] [place] [address] * (ABNORMAL) CBC with auto differential (01/26/2024 4:39 AM SHAPE CARVER) [facility] WBC 4.6 3.8 - 9.9 K/cumm Hgb 7.9(L) 13.0 - 17.5 g/dL [facility] Hct 23.5(L) 38.9 - 50.3 % [facility] Plt 111(L) 150 - 400 K/cumm [facility] MPV 11.9 9.1 - 12.3 fL [facility] RBC 2.49(L) 4.30 - 5.80 M/cumm [facility] MCV 94.4 81.3 - 96.4 fL [facility] MCH 31.7 27.1 - 33.3 pg [facility] MCHC 33.6 32.3 - 35.7 g/dL [facility] RDW CV 17.2(H) 11.1 - 14.9 % [facility] RDW SD 58.9(H) 35.7 - 48.1 fL [facility] NRBC abs 0.00 0.00 - 0.01 K/cumm [facility] Blood 01/26/2024 4:39 AM SHAPE CARVER 01/26/2024 5:17 AM SHAPE CARVER Ayush Galvez MD LAB BLOOD ORDERABLES Final Result Performing Organization Address City/[facility]/ZIP Co de Phone Number [facility] Department [place] [address] * Magnesium (01/26/2024 4:39 AM SHAPE CARVER) [facility] Magnesium 2.5 1.4 - 2.5 mg/dL Blood 01/26/2024 4:39 AM SHAPE CARVER 01/26/2024 5:17 AM SHAPE CARVER Ayush Galvez MD LAB BLOOD ORDERABLES Final Result Performing Organization Address [facility] de Phone Number [facility] Department [place] [address] * (ABNORMAL) Renal function panel (01/26/2024 4:39 AM SHAPE CARVER) Pathologist [facility] Sodium 132(L) 135 - 145 mmol/L Potassium, pl 4.5 3.3 - 4.9 mmol/L [facility] Comment:Hemolyzed; Potassium value may be falsely elevated by as much as 0.3-0.5 mmol/L. Suggest redraw and reanalysis. Chloride 90(L) 97 - 110 mmol/L [facility] CO2 28 22 - 32 mmol/L [facility] Anion gap 14 2 - 15 mmol/L [facility] BUN 69(H) 6 - 25 mg/dL [facility] Creatinine 6.70(H) 0.80 - 1.30 mg/dL [facility] Glucose 172 70 - 199 mg/dL [facility] Comment: Interpretive Data Fasting glucose >/= [...] 2022. Calcium 9.6 8.5 - 10.3 mg/dL [facility] Phosphorus, pl 8.0(H) 2.3 - 4.5 mg/dL [facility] Albumin 3.0(L) 3.5 - 5.0 g/dL [facility] Blood 01/26/2024 4:39 AM SHAPE CARVER 01/26/2024 5:17 AM SHAPE CARVER Ayush Galvez MD LAB BLOOD ORDERABLES Final Result Performing Organization Address City/[facility]/ZIP Co de Phone Number [facility] [place] [address] * POCT glucose (01/25/2024 9:33 PM SHAPE CARVER) [facility] Signature Glucose, POC 195 70 - 199 mg/dL Blood 01/25/2024 9:33 PM SHAPE CARVER 01/25/2024 9:33 PM SHAPE CARVER Ayush Galvez MD LAB POCT ORDERABLES - DEVIC E Final Result Performing Organization Address City/[facility]/ZIP Co de Phone Number [facility] [place] [address] * (ABNORMAL) Troponin I high-sensitivity 6-hour (01/25/2024 7:51 PM SHAPE CARVER) Trop I hs 347(C) <=35 ng/L Comment: Previous critical value noted within 48 hours ago. Interpretive Data For further hscTnI resources including the diagnostic algorithm and an aid in interpretation, copy and paste this link: [email or web address] Current Interpretive Data last revised 2019. Trop I hs pct delta -11 % [facility] Comment:Previous critical va lue noted within 48 hours ago. Trop I hs interp Equivocal [facility] Comment:Previous critical va lue noted within 48 hours ago. Blood 01/25/2024 7:51 PM SHAPE CARVER 01/25/2024 8:11 PM SHAPE CARVER Vannessa Hein NP LAB BLOOD ORDERABLES Fin al Result Performing Organization Address [facility] de Phone Number [facility] [place] [address] * (ABNORMAL) Troponin I high-sensitivity 4-hour (01/25/2024 6:00 PM SHAPE CARVER) Pathologist [facility] Trop I hs 388(C) <=35 ng/L Comment: Previous critical value noted within 48 hours ago. Interpretive Data For further hscTnI resources including the diagnostic algorithm and an aid in interpretation, copy and paste this link: [email or web address] Current Interpretive Data last revised 2019. Trop I hs pct delta -1 % [facility] Trop I hs interp Insignificant [facility] Blood 01/25/2024 6:00 PM SHAPE CARVER 01/25/2024 6:21 PM SHAPE CARVER Vannessa Hein ENVIRONMENTAL SCIENCE PROFESSOR LAB BLOOD ORDERABLES Fin al Result Performing Organization Address [facility] de Phone Number [facility] [place] [address] * (ABNORMAL) POCT glucose (01/25/2024 5:49 PM SHAPE CARVER) Pathologist [facility] Glucose, POC 212(H) 70 - 199 mg/dL Blood 01/25/2024 5:49 PM SHAPE CARVER 01/25/2024 5:49 PM SHAPE CARVER us Ayush Galvez MD LAB POCT ORDERABLES - DEVIC E Final Result Performing Organization Address [facility] de Phone Number [facility] Department [place] [address] * (ABNORMAL) Troponin I high-sensitivity 2-hour (01/25/2024 3:44 PM SHAPE CARVER) [facility] Trop I hs 384(C) <=35 ng/L Comment: Previous critical value noted within 48 hours ago. Interpretive Data For further hscTnI resources including the diagnostic algorithm and an aid in interpretation, copy and paste this link: [email or web address] Current Interpretive Data last revised 2019. Trop I hs pct delta -2 % [facility] Trop I hs interp Insignificant [facility] Blood 01/25/2024 3:44 PM SHAPE CARVER 01/25/2024 4:16 PM SHAPE CARVER us Vannessa Hein NP LAB BLOOD ORDERABLES Fin al Result Performing Organization Address [facility] de Phone Number [facility] Department [place] [address] * XR Chest 1 View (01/25/2024 2:52 PM SHAPE CARVER) Anatomical Region Laterality Modality Body, Chest N/A Computed Radiogr aphy 01/25/2024 3:56 PM SHAPE CARVER Impressions 01/25/2024 4:00 PM SHAPE CARVER The current study is compared with the [...] Erinn Morataya M.D. Narrative 01/25/2024 4:00 PM SHAPE CARVER EXAMINATION: 1 view chest radiograph Procedure Note [...] signed by: Erinn Morataya M.D. Vannessa Hein ENVIRONMENTAL SCIENCE PROFESSOR IMG XR PROCEDURES Final Result * (ABNORMAL) CBC without differential (01/25/2024 2:42 PM SHAPE CARVER) WBC 6.9 3.8 - 9.9 K/cumm Hgb 8.1(L) 13.0 - 17.5 g/dL [facility] Hct 24.5(L) 38.9 - 50.3 % [facility] Plt 94(L) 150 - 400 K/cumm [facility] MPV 11.4 9.1 - 12.3 fL [facility] RBC 2.56(L) 4.30 - 5.80 M/cumm [facility] MCV 95.7 81.3 - 96.4 fL [facility] MCH 31.6 27.1 - 33.3 pg [facility] MCHC 33.1 32.3 - 35.7 g/dL [facility] RDW CV 17.2(H) 11.1 - 14.9 % [facility] RDW SD 59.7(H) 35.7 - 48.1 fL [facility] NRBC abs 0.03(H) 0.00 - 0.01 K/cumm [facility] Blood 01/25/2024 2:42 PM SHAPE CARVER 01/25/2024 2:56 PM SHAPE CARVER Result [facility] LAB BLOOD ORDERABLES Final Result Performing Organization Address [facility] de Phone Number [facility] [place] [address] * (ABNORMAL) Troponin I high-sensitivity (01/25/2024 2:05 PM SHAPE CARVER) Trop I hs 383(C) <=35 ng/L Comment: Previous critical value noted within 48 hours ago. Interpretive Data For further hscTnI resources including the diagnostic algorithm and an aid in interpretation, copy and paste this link: [email or web address] Current Interpretive Data last revised 2019. Blood 01/25/2024 2:05 PM SHAPE CARVER 01/25/2024 2:23 PM SHAPE CARVER Result [facility] LAB BLOOD ORDERABLES Final Result Performing Organization Address [facility] de Phone Number [facility] [place] [address] * (ABNORMAL) Troponin I high-sensitivity series (baseline, 2hr, 4hr, 6hr) (01/25/2024 1:46 PM SHAPE CARVER) Trop I hs 391(C) <=35 ng/L Comment: Interpretive Data For further hscTnI resources including the diagnostic algorithm and an aid in interpretation, copy and paste this link: [email or web address] Current Interpretive Data last revised 2019. Blood 01/25/2024 1:46 PM SHAPE CARVER 01/25/2024 1:59 PM SHAPE CARVER Vannessa Hein ENVIRONMENTAL SCIENCE PROFESSOR LAB BLOOD ORDERABLES Fin al Result Performing Organization Address [facility] [address] * Critical result callback Cardio chemistry (01/25/2024 1:46 PM SHAPE CARVER) Date Notified [id number] Time Notified 1449 LINDA [facility] Test name Trop I hs base LINDA [facility] Called/Read Back Nadiya MCKEON [facility] Credentials RN LINDA [facility] Called By afshin BALLARD Blood 01/25/2024 1:46 PM SHAPE CARVER 01/25/2024 2:11 PM SHAPE CARVER Vannessa Hein NP LAB BLOOD ORDERABLES Fin al Result Performing Organization Address [facility] [address] * ECG 12 lead (01/25/2024 1:31 PM SHAPE CARVER) Ventricular Rate EKG/Min 82 BPM [facility] Atrial Rate 83 BPM [facility] QRS-Interval (MSEC) 144 ms [facility] QT-Interval (MSEC) 462 ms [facility] QTc 539 ms [facility] R Bend 7 degrees [facility] T Bend 3 degrees [facility] Diagnosis Atrial fibrillation/fl utter with variable A-V block Non-specific intra-ventricul ar conduction block Cannot rule out Inferior infarct , age undetermined Abnormal ECG When compared with ECG of 23-JAN-2024 01:02, (unconfirmed) T wave inversion no longer evident in Lateral leads QT has lengthened Confirmed by JENNIFER BYRD M.D ([id number]) on 01/26/2024 12:43:53 PM [facility] 01/25/2024 1:31 PM SHAPE CARVER 01/26/2024 12:43 PM SHAPE CARVER us Vannessa Hein ENVIRONMENTAL SCIENCE PROFESSOR ECG ORDERABLES Final Re sult [facility] * Creatinine, body fluid (01/25/2024 1:15 PM SHAPE CARVER) Specimen type, fld Peritoneal Creatinine, fld 5.90 mg/dL [facility] Comment: The above specimen type is [...] 2018. Chapter 43, Body Fluids, p. 925 [employer] Test directory, Body Fluid Reference Intervals and/or Interpretative Information. [email or web address] Current Interpretive Data was last revised 2018. Fluid 01/25/2024 1:15 PM SHAPE CARVER 01/25/2024 2:12 PM SHAPE CARVER Narrative [facility] - 01/25/2024 2:45 PM SHAPE CARVER CONSTANZA drain us Rosalie Velásquez NP LAB BODY FLUIDS AND STOOLS ORDERABLES Final Result Performing Organization Address [facility]/ZIP Co de Phone Number [facility] [place] [address] * POCT glucose (01/25/2024 12:46 PM SHAPE CARVER) Glucose, POC 169 70 - 199 mg/dL Blood 01/25/2024 12:4 6 PM SHAPE CARVER 01/25/2024 12:46 PM SHAPE CARVER Ayush Galvez MD LAB POCT ORDERABLES - DEVIC E Final Result Performing Organization Address [facility]/ZIP Co de Phone Number [facility] Department [place] [address] * POCT glucose (01/25/2024 11:13 AM SHAPE CARVER) Glucose, POC 143 70 - 199 mg/dL Blood 01/25/2024 11:1 3 AM SHAPE CARVER 01/25/2024 11:13 AM SHAPE CARVER Ayush Galvez MD LAB POCT ORDERABLES - DEVIC E Final Result LINDA [facility] [place] [address] * IR Central Line Placement > 5 Years (01/25/2024 10:26 AM SHAPE CARVER) Anatomical Region Laterality Modality Body N/A X-Ray Angiograph y 01/25/2024 11:2 6 AM SHAPE CARVER Impressions 01/25/2024 2:04 PM SHAPE CARVER Successful nontunneled catheter placement. PLAN: The catheter [...] Miguel Swan M.D. Narrative 01/25/2024 2:04 PM SHAPE CARVER EXAMINATION: NONTUNNELED CENTRAL VENOUS CATHETER PLACEMENT (STD) [...] was obtained. Prior to beginning the procedure, [place] Protocol was used to confirm the patient's [...] After dilating the tract, a dual lumen rahsmi trimmed to the appropriate intravascular length was [...] was obtained. Prior to beginning the procedure, [place] Protocol was used to confirm the patient's [...] by: Juan Miguel Swan M.D. Vannessa Hein ENVIRONMENTAL SCIENCE PROFESSOR IMG IR PROCEDURES Final Result * POCT glucose (01/25/2024 7:40 AM SHAPE CARVER) [facility] Glucose, POC 147 70 - 199 mg/dL Blood 01/25/2024 7:40 AM SHAPE CARVER 01/25/2024 7:40 AM SHAPE CARVER Ayush Galvez MD LAB POCT ORDERABLES - DEVIC E Final Result [facility] Department [place] [address] * (ABNORMAL) eGFR (01/25/2024 5:07 AM SHAPE CARVER) [facility] eGFR 10(L) >=60 mL/min/1. 73 m2 Comment: [...] last reviewed 2020. Blood 01/25/2024 5:07 AM SHAPE CARVER 01/25/2024 5:25 AM SHAPE CARVER us Ayush Galvez MD LAB BLOOD ORDERABLES Final Result [facility] Department [place] [address] * (ABNORMAL) Differential, auto (01/25/2024 5:07 AM SHAPE CARVER) Neutrophil abs 3.3 1.5 - 6.5 K/cumm Imm gran abs 0.1 0.0 - 0.1 K/cumm [facility] Lymphocyte abs 0.1(L) 0.8 - 3.3 K/cumm [facility] Monocyte abs 0.2 0.2 - 0.8 K/cumm [facility] Eosinophil abs 0.0 0.0 - 0.5 K/cumm [facility] Basophil abs 0.0 0.0 - 0.1 K/cumm [facility] Neutrophil pct 90.8 % [facility] Comment: Interpretive Data Percent cell count reference ranges are not reported, since discordance with absolute values may lead to misinterpretation of CBC data. Current Interpretive Data was last revised on 2017. Imm gran pct 2.5 % [facility] Comment: Interpretive Data Percent cell count reference ranges are not reported, since discordance with absolute values may lead to misinterpretation of CBC data. Current Interpretive Data was last revised on 2017. Lymphocyte pct 1.7 % [facility] Comment: Interpretive Data Percent cell count reference ranges are not reported, since discordance with absolute values may lead to misinterpretation of CBC data. Current Interpretive Data was last revised on 2017. Monocyte pct 4.7 % [facility] Comment: Interpretive Data Percent cell count reference ranges are not reported, since discordance with absolute values may lead to misinterpretation of CBC data. Current Interpretive Data was last revised on 2017. Eosinophil pct 0.3 % [facility] Comment: Interpretive Data Percent cell count reference ranges are not reported, since discordance with absolute values may lead to misinterpretation of CBC data. Current Interpretive Data was last revised on 2017. Basophil pct 0.0 % [facility] Comment: Interpretive Data Percent cell count reference ranges are not reported, since discordance with absolute values may lead to misinterpretation of CBC data. Current Interpretive Data was last revised on 2017. Blood 01/25/2024 5:07 AM SHAPE CARVER 01/25/2024 5:58 AM SHAPE CARVER Ayush Galvez MD LAB BLOOD ORDERABLES Final Result Performing Organization Address [facility]/[place] Co de Phone Number [facility] [place] [address] * Tacrolimus level trough (01/25/2024 5:07 AM SHAPE CARVER) [facility] Signature Tacrolimus trough 7.3 ng/mL Comment: Interpretive Data Testing performed by liquid chromatography-tandem mass spectrometry. Therapeutic concentrations vary depending on type of transplanted organ and time elapsed since transplant. Typical trough concentrations range from 5-15 ng/mL. This test was developed and its performance characteristics determined by the [facility] consistent with CLIA requirements. This test has not been cleared or approved by the US Food and Drug administration. Current interpretive data last reviewed 2019. Blood 01/25/2024 5:07 AM SHAPE CARVER 01/25/2024 5:58 AM SHAPE CARVER Ayush Galvez MD LAB BLOOD ORDERABLES Final Result Performing Organization Address City/[facility]/ZIP Co de Phone Number [facility] [place] [address] * (ABNORMAL) CBC with auto differential (01/25/2024 5:07 AM SHAPE CARVER) Pathologist [facility] WBC 3.6(L) 3.8 - 9.9 K/cumm Hgb 8.1(L) 13.0 - 17.5 g/dL [facility] Hct 24.1(L) 38.9 - 50.3 % [facility] Plt 92(L) 150 - 400 K/cumm [facility] MPV 11.0 9.1 - 12.3 fL [facility] RBC 2.55(L) 4.30 - 5.80 M/cumm [facility] MCV 94.5 81.3 - 96.4 fL [facility] MCH 31.8 27.1 - 33.3 pg [facility] MCHC 33.6 32.3 - 35.7 g/dL [facility] RDW CV 17.2(H) 11.1 - 14.9 % [facility] RDW SD 59.2(H) 35.7 - 48.1 fL [facility] NRBC abs 0.03(H) 0.00 - 0.01 K/cumm [facility] Blood 01/25/2024 5:07 AM SHAPE CARVER 01/25/2024 5:58 AM SHAPE CARVER us Ayush Galvez MD LAB BLOOD ORDERABLES Final Result Performing Organization Address City/[facility]/ZIP Co de Phone Number [facility] [place] [address] * Magnesium (01/25/2024 5:07 AM SHAPE CARVER) Pathologist [facility] Magnesium 2.3 1.4 - 2.5 mg/dL Blood 01/25/2024 5:07 AM SHAPE CARVER 01/25/2024 5:25 AM SHAPE CARVER Ayush Galvez MD LAB BLOOD ORDERABLES Final Result [facility] Department [place] [address] * (ABNORMAL) Renal function panel (01/25/2024 5:07 AM SHAPE CARVER) Sodium 134(L) 135 - 145 mmol/L Potassium, pl 4.0 3.3 - 4.9 mmol/L [facility] Chloride 91(L) 97 - 110 mmol/L [facility] CO2 30 22 - 32 mmol/L [facility] Anion gap 13 2 - 15 mmol/L [facility] BUN 51(H) 6 - 25 mg/dL [facility] Creatinine 5.63(H) 0.80 - 1.30 mg/dL [facility] Glucose 152 70 - 199 mg/dL [facility] Comment: Interpretive Data Fasting glucose >/= [...] 2022. Calcium 9.4 8.5 - 10.3 mg/dL [facility] Phosphorus, pl 7.5(H) 2.3 - 4.5 mg/dL [facility] Albumin 3.2(L) 3.5 - 5.0 g/dL [facility] Blood 01/25/2024 5:07 AM SHAPE CARVER 01/25/2024 5:25 AM SHAPE CARVER us Ayush Galvez MD LAB BLOOD ORDERABLES Final Result [facility] Department [place] [address] * POCT glucose (01/24/2024 8:58 PM SHAPE CARVER) Glucose, POC 195 70 - 199 mg/dL Blood 01/24/2024 8:58 PM SHAPE CARVER 01/24/2024 8:58 PM SHAPE CARVER us Ayush Galvez MD LAB POCT ORDERABLES - DEVIC E Final Result Performing Organization Address [facility] de Phone Number [facility] [place] [address] * POCT glucose (01/24/2024 4:57 PM SHAPE CARVER) Glucose, POC 189 70 - 199 mg/dL Blood 01/24/2024 4:57 PM SHAPE CARVER 01/24/2024 4:57 PM SHAPE CARVER us Ayush Galvez MD LAB POCT ORDERABLES - DEVIC E Final Result Performing Organization Address [facility] Phone Number [facility] [place] [address] * (ABNORMAL) POCT glucose (01/24/2024 11:41 AM SHAPE CARVER) Glucose, POC 219(H) 70 - 199 mg/dL Blood 01/24/2024 11:4 1 AM SHAPE CARVER 01/24/2024 11:41 AM SHAPE CARVER us Ayush Galvez MD LAB POCT ORDERABLES - DEVIC E Final Result Performing Organization Address [facility] [place] [address] * POCT glucose (01/24/2024 7:32 AM SHAPE CARVER) Glucose, POC 187 70 - 199 mg/dL Blood 01/24/2024 7:32 AM SHAPE CARVER 01/24/2024 7:32 AM SHAPE CARVER us Ayush Galvez MD LAB POCT ORDERABLES - DEVIC E Final Result Performing Organization Address City/[facility]/ZIP Co de Phone Number [facility] Department [place] [address] * (ABNORMAL) eGFR (01/24/2024 5:06 AM SHAPE CARVER) Pathologist [facility] eGFR 15(L) >=60 mL/min/1. 73 m2 Comment: [...] last reviewed 2020. Blood 01/24/2024 5:06 AM SHAPE CARVER 01/24/2024 5:24 AM SHAPE CARVER Ayush Galvez MD LAB BLOOD ORDERABLES Final Result Performing Organization Address City/[facility]/ZIP Co de Phone Number [facility] Department [place] [address] * (ABNORMAL) Differential, auto (01/24/2024 5:06 AM SHAPE CARVER) Pathologist [facility] Neutrophil abs 5.8 1.5 - 6.5 K/cumm Imm gran abs 0.0 0.0 - 0.1 K/cumm [facility] Lymphocyte abs 0.1(L) 0.8 - 3.3 K/cumm [facility] Monocyte abs 0.3 0.2 - 0.8 K/cumm [facility] Eosinophil abs 0.0 0.0 - 0.5 K/cumm [facility] Basophil abs 0.0 0.0 - 0.1 K/cumm [facility] Neutrophil pct 93.5 % [facility] Comment: Interpretive Data Percent cell count reference ranges are not reported, since discordance with absolute values may lead to misinterpretation of CBC data. Current Interpretive Data was last revised on 2017. Imm gran pct 0.6 % [facility] Comment: Interpretive Data Percent cell count reference ranges are not reported, since discordance with absolute values may lead to misinterpretation of CBC data. Current Interpretive Data was last revised on 2017. Lymphocyte pct 1.0 % [facility] Comment: Interpretive Data Percent cell count reference ranges are not reported, since discordance with absolute values may lead to misinterpretation of CBC data. Current Interpretive Data was last revised on 2017. Monocyte pct 4.7 % [facility] Comment: Interpretive Data Percent cell count reference ranges are not reported, since discordance with absolute values may lead to misinterpretation of CBC data. Current Interpretive Data was last revised on 2017. Eosinophil pct 0.2 % [facility] Comment: Interpretive Data Percent cell count reference ranges are not reported, since discordance with absolute values may lead to misinterpretation of CBC data. Current Interpretive Data was last revised on 2017. Basophil pct 0.0 % [facility] Comment: Interpretive Data Percent cell count reference ranges are not reported, since discordance with absolute values may lead to misinterpretation of CBC data. Current Interpretive Data was last revised on 2017. Blood 01/24/2024 5:06 AM SHAPE CARVER 01/24/2024 6:39 AM SHAPE CARVER us Ayush Galvez MD LAB BLOOD ORDERABLES Final Result [facility] [place] [address] * Tacrolimus level trough (01/24/2024 5:06 AM SHAPE CARVER) Tacrolimus trough 9.4 ng/mL Comment: Interpretive Data Testing performed by liquid chromatography-tandem mass spectrometry. Therapeutic concentrations vary depending on type of transplanted organ and time elapsed since transplant. Typical trough concentrations range from 5-15 ng/mL. This test was developed and its performance characteristics determined by the [facility] consistent with CLIA requirements. This test has not been cleared or approved by the US Food and Drug administration. Current interpretive data last reviewed 2019. Blood 01/24/2024 5:06 AM SHAPE CARVER 01/24/2024 6:39 AM SHAPE CARVER Ayush Galvez MD LAB BLOOD ORDERABLES Final Result [facility] Department [place] [address] * (ABNORMAL) CBC with auto differential (01/24/2024 5:06 AM SHAPE CARVER) WBC 6.2 3.8 - 9.9 K/cumm Hgb 8.2(L) 13.0 - 17.5 g/dL [facility] Hct 24.4(L) 38.9 - 50.3 % [facility] Plt 103(L) 150 - 400 K/cumm [facility] MPV 11.4 9.1 - 12.3 fL [facility] RBC 2.57(L) 4.30 - 5.80 M/cumm [facility] MCV 94.9 81.3 - 96.4 fL [facility] MCH 31.9 27.1 - 33.3 pg [facility] MCHC 33.6 32.3 - 35.7 g/dL [facility] RDW CV 17.7(H) 11.1 - 14.9 % [facility] RDW SD 62.0(H) 35.7 - 48.1 fL [facility] NRBC abs 0.02(H) 0.00 - 0.01 K/cumm [facility] Blood 01/24/2024 5:06 AM SHAPE CARVER 01/24/2024 6:39 AM SHAPE CARVER Ayush Galvez MD LAB BLOOD ORDERABLES Final Result Performing Organization Address City/[facility]/ZIP Co de Phone Number [facility] [place] [address] * Magnesium (01/24/2024 5:06 AM SHAPE CARVER) [facility] Magnesium 2.2 1.4 - 2.5 mg/dL Blood 01/24/2024 5:06 AM SHAPE CARVER 01/24/2024 5:24 AM SHAPE CARVER Ayush Galvez MD LAB BLOOD ORDERABLES Final Result Performing Organization Address [facility] de Phone Number [facility] [place] [address] * (ABNORMAL) Renal function panel (01/24/2024 5:06 AM SHAPE CARVER) [facility] Sodium 137 135 - 145 mmol/L Potassium, pl 3.9 3.3 - 4.9 mmol/L [facility] Chloride 92(L) 97 - 110 mmol/L [facility] CO2 28 22 - 32 mmol/L [facility] Anion gap 17(H) 2 - 15 mmol/L [facility] BUN 36(H) 6 - 25 mg/dL [facility] Creatinine 4.25(H) 0.80 - 1.30 mg/dL [facility] Glucose 206(H) 70 - 199 mg/dL [facility] Comment: Interpretive Data Fasting glucose >/= [...] 2022. Calcium 9.1 8.5 - 10.3 mg/dL [facility] Phosphorus, pl 5.6(H) 2.3 - 4.5 mg/dL [facility] Comment:Repeated on Dilution Albumin 3.2(L) 3.5 - 5.0 g/dL [facility] Blood 01/24/2024 5:06 AM SHAPE CARVER 01/24/2024 5:24 AM SHAPE CARVER Ayush Galvez MD LAB BLOOD ORDERABLES Final Result Performing Organization Address City/[facility]/[place] Co de Phone Number [facility] [place] [address] * (ABNORMAL) POCT glucose (01/23/2024 9:19 PM SHAPE CARVER) Glucose, POC 215(H) 70 - 199 mg/dL Blood 01/23/2024 9:19 PM SHAPE CARVER 01/23/2024 9:19 PM SHAPE CARVER Ayush Galvez MD LAB POCT ORDERABLES - DEVIC E Final Result Performing Organization Address [facility]/[place] Co de Phone Number [facility] [place] [address] * (ABNORMAL) POCT glucose (01/23/2024 5:44 PM SHAPE CARVER) Glucose, POC 232(H) 70 - 199 mg/dL Blood 01/23/2024 5:44 PM SHAPE CARVER 01/23/2024 5:44 PM SHAPE CARVER Ayush Galvez MD LAB POCT ORDERABLES - DEVIC E Final Result Performing Organization Address [facility]/[place] Co de Phone Number [facility] [place] [address] * (ABNORMAL) POCT glucose (01/23/2024 12:11 PM SHAPE CARVER) Glucose, POC 217(H) 70 - 199 mg/dL Blood 01/23/2024 12:1 1 PM SHAPE CARVER 01/23/2024 12:11 PM SHAPE CARVER Ayush Galvez MD LAB POCT ORDERABLES - DEVIC E Final Result Performing Organization Address [facility] de Phone Number [facility] [place] [address] * (ABNORMAL) POCT glucose (01/23/2024 8:18 AM SHAPE CARVER) Glucose, POC 202(H) 70 - 199 mg/dL Blood 01/23/2024 8:18 AM SHAPE CARVER 01/23/2024 8:18 AM SHAPE CARVER Ayush Galvez MD LAB POCT ORDERABLES - DEVIC E Final Result Performing Organization Address [facility] Phone Number [facility] Department [place] [address] * (ABNORMAL) Troponin I high-sensitivity (01/23/2024 6:12 AM SHAPE CARVER) Trop I hs 1,204(C) <=35 ng/L Comment: Previous critical value noted within 48 hours ago. Interpretive Data For further [facility] resources including the diagnostic algorithm and an aid in interpretation, copy and paste this link: [email or web address]/show/[email or web address] Current Interpretive Data last revised 2019. Blood 01/23/2024 6:12 AM SHAPE CARVER 01/23/2024 6:31 AM SHAPE CARVER Ayush Galvez MD LAB BLOOD ORDERABLES Final Result Performing Organization Address [facility] de Phone Number [facility] [place] [address] * (ABNORMAL) eGFR (01/23/2024 2:42 AM SHAPE CARVER) Pathologist [facility] eGFR 11(L) >=60 mL/min/1. 73 m2 Comment: [...] last reviewed 2020. Blood 01/23/2024 2:42 AM SHAPE CARVER 01/23/2024 3:02 AM SHAPE CARVER us Ayush Galvez MD LAB BLOOD ORDERABLES Final Result [facility] Department [place] [address] * (ABNORMAL) Differential, auto (01/23/2024 2:42 AM SHAPE CARVER) [facility] Neutrophil abs 6.7(H) 1.5 - 6.5 K/cumm Imm gran abs 0.1 0.0 - 0.1 K/cumm [facility] Lymphocyte abs 0.1(L) 0.8 - 3.3 K/cumm [facility] Monocyte abs 0.1(L) 0.2 - 0.8 K/cumm [facility] Eosinophil abs 0.0 0.0 - 0.5 K/cumm [facility] Basophil abs 0.0 0.0 - 0.1 K/cumm [facility] Neutrophil pct 96.4 % [facility] Comment: Interpretive Data Percent cell count reference ranges are not reported, since discordance with absolute values may lead to misinterpretation of CBC data. Current Interpretive Data was last revised on 2017. Imm gran pct 0.7 % [facility] Comment: Interpretive Data Percent cell count reference ranges are not reported, since discordance with absolute values may lead to misinterpretation of CBC data. Current Interpretive Data was last revised on 2017. Lymphocyte pct 0.9 % [facility] Comment: Interpretive Data Percent cell count reference ranges are not reported, since discordance with absolute values may lead to misinterpretation of CBC data. Current Interpretive Data was last revised on 2017. Monocyte pct 2.0 % [facility] Comment: Interpretive Data Percent cell count reference ranges are not reported, since discordance with absolute values may lead to misinterpretation of CBC data. Current Interpretive Data was last revised on 2017. Eosinophil pct 0.0 % [facility] Comment: Interpretive Data Percent cell count reference ranges are not reported, since discordance with absolute values may lead to misinterpretation of CBC data. Current Interpretive Data was last revised on 2017. Basophil pct 0.0 % [facility] Comment: Interpretive Data Percent cell count reference ranges are not reported, since discordance with absolute values may lead to misinterpretation of CBC data. Current Interpretive Data was last revised on 2017. Blood 01/23/2024 2:42 AM SHAPE CARVER 01/23/2024 3:02 AM SHAPE CARVER Ayush Galvez MD LAB BLOOD ORDERABLES Final Result [facility] Department [place] [address] * Tacrolimus level trough (01/23/2024 2:42 AM SHAPE CARVER) Tacrolimus trough 7.8 ng/mL Comment: Interpretive Data Testing performed by liquid chromatography-tandem mass spectrometry. Therapeutic concentrations vary depending on type of transplanted organ and time elapsed since transplant. Typical trough concentrations range from 5-15 ng/mL. This test was developed and its performance characteristics determined by the [facility] consistent with CLIA requirements. This test has not been cleared or approved by the US Food and Drug administration. Current interpretive data last reviewed 2019. Blood 01/23/2024 2:42 AM SHAPE CARVER 01/23/2024 3:02 AM SHAPE CARVER Ayush Galvez MD LAB BLOOD ORDERABLES Final Result Performing Organization Address [facility] de Phone Number [facility] Department [place] [address] * (ABNORMAL) CBC with auto differential (01/23/2024 2:42 AM SHAPE CARVER) WBC 7.0 3.8 - 9.9 K/cumm Hgb 8.8(L) 13.0 - 17.5 g/dL [facility] Hct 26.4(L) 38.9 - 50.3 % [facility] Plt 89(L) 150 - 400 K/cumm [facility] MPV 11.1 9.1 - 12.3 fL [facility] RBC 2.77(L) 4.30 - 5.80 M/cumm [facility] MCV 95.3 81.3 - 96.4 fL [facility] MCH 31.8 27.1 - 33.3 pg [facility] MCHC 33.3 32.3 - 35.7 g/dL [facility] RDW CV 18.2(H) 11.1 - 14.9 % [facility] RDW SD 63.3(H) 35.7 - 48.1 fL [facility] NRBC abs 0.00 0.00 - 0.01 K/cumm [facility] Blood 01/23/2024 2:42 AM SHAPE CARVER 01/23/2024 3:02 AM SHAPE CARVER Ayush Galvez MD LAB BLOOD ORDERABLES Final Result Performing Organization Address [facility]/ZIP Co de Phone Number [facility] Department [place] [address] * Magnesium (01/23/2024 2:42 AM SHAPE CARVER) Magnesium 2.5 1.4 - 2.5 mg/dL Blood 01/23/2024 2:42 AM SHAPE CARVER 01/23/2024 3:02 AM SHAPE CARVER Ayush Galvez MD LAB BLOOD ORDERABLES Final Result [facility] Department [place] [address] * (ABNORMAL) Renal function panel (01/23/2024 2:42 AM SHAPE CARVER) Sodium 135 135 - 145 mmol/L Potassium, pl 4.7 3.3 - 4.9 mmol/L [facility] Chloride 95(L) 97 - 110 mmol/L [facility] CO2 26 22 - 32 mmol/L [facility] Anion gap 14 2 - 15 mmol/L [facility] BUN 46(H) 6 - 25 mg/dL [facility] Creatinine 5.52(H) 0.80 - 1.30 mg/dL [facility] Glucose 178 70 - 199 mg/dL [facility] Comment: Interpretive Data Fasting glucose >/= [...] 2022. Calcium 9.1 8.5 - 10.3 mg/dL [facility] Phosphorus, pl 7.8(H) 2.3 - 4.5 mg/dL [facility] Albumin 3.3(L) 3.5 - 5.0 g/dL [facility] Blood 01/23/2024 2:42 AM SHAPE CARVER 01/23/2024 3:02 AM SHAPE CARVER Ayush Galvez MD LAB BLOOD ORDERABLES Final Result Performing Organization Address [facility]/[place] Co de Phone Number LINDA [facility] [place] [address] * (ABNORMAL) Troponin I high-sensitivity (01/23/2024 2:41 AM SHAPE CARVER) Trop I hs 1,365(C) <=35 ng/L Comment: Previous critical value noted within 48 hours ago. Interpretive Data For further [facility] resources including the diagnostic algorithm and an aid in interpretation, copy and paste this link: [email or web address].[email or web address]/show/[email or web address] Current Interpretive Data last revised 2019. Blood 01/23/2024 2:41 AM SHAPE CARVER 01/23/2024 3:14 AM SHAPE CARVER Ayush Galvez MD LAB BLOOD ORDERABLES Final Result Performing Organization Address [facility]/[place] Co de Phone Number LINDA [facility] [place] [address] * ECG 12 lead (01/23/2024 1:02 AM SHAPE CARVER) Ventricular Rate EKG/Min 71 BPM [facility] Atrial Rate 250 BPM [facility] QRS-Interval (MSEC) 134 ms [facility] QT-Interval (MSEC) 436 ms [facility] QTc 473 ms [facility] R Bend 8 degrees [facility] T Bend 248 degrees [facility] Diagnosis Atrial fibrillation Non-specific intra-ventricula r conduction block T wave abnormality, consider inferolateral ischemia Abnormal ECG When compared with ECG of 22-JAN-2024 15:39, (unconfirmed) No significant change was found Confirmed by JENNIFER BYRD M.D ([id number]) on 01/25/2024 3:00:07 PM [facility] 01/23/2024 1:02 AM SHAPE CARVER 01/25/2024 3:00 PM SHAPE CARVER Ayush Galvez MD ECG ORDERABLES Final Resul t Performing Organization Address City/[facility]/[place] Co de Phone Number [facility] * (ABNORMAL) Troponin I high-sensitivity (01/22/2024 11:14 PM SHAPE CARVER) Trop I hs 1,127(C) <=35 ng/L Comment: Previous critical value noted within 48 hours ago. Interpretive Data For further hscTnI resources including the diagnostic algorithm and an aid in interpretation, copy and paste this link: [email or web address]/show/[email or web address] Current Interpretive Data last revised 2019. Blood 01/22/2024 11:1 4 PM SHAPE CARVER 01/22/2024 11:57 PM SHAPE CARVER Ayush Galvez MD LAB BLOOD ORDERABLES Final Result Performing Organization Address [facility]/[place] Co de Phone Number [facility] Department [place] [address] * (ABNORMAL) Troponin I high-sensitivity (01/22/2024 11:14 PM SHAPE CARVER) Trop I hs 1,220(C) <=35 ng/L Comment: Previous critical value noted within 48 hours ago. Interpretive Data For further hscTnI resources including the diagnostic algorithm and an aid in interpretation, copy and paste this link: [email or web address]/[email or web address] Current Interpretive Data last revised 2019. Blood 01/22/2024 11:1 4 PM SHAPE CARVER 01/22/2024 11:56 PM SHAPE CARVER Ayush Galvez MD LAB BLOOD ORDERABLES Final Result Performing Organization Address [facility]/[place] Co de Phone Number [facility] Department [place] [address] * (ABNORMAL) Differential, auto (01/22/2024 11:14 PM SHAPE CARVER) Neutrophil abs 7.1(H) 1.5 - 6.5 K/cumm Imm gran abs 0.0 0.0 - 0.1 K/cumm [facility] Lymphocyte abs 0.0(L) 0.8 - 3.3 K/cumm [facility] Monocyte abs 0.2 0.2 - 0.8 K/cumm [facility] Eosinophil abs 0.0 0.0 - 0.5 K/cumm [facility] Basophil abs 0.0 0.0 - 0.1 K/cumm [facility] Neutrophil pct 96.8 % [facility] Comment: Interpretive Data Percent cell count reference ranges are not reported, since discordance with absolute values may lead to misinterpretation of CBC data. Current Interpretive Data was last revised on 2017. Imm gran pct 0.5 % [facility] Comment: Interpretive Data Percent cell count reference ranges are not reported, since discordance with absolute values may lead to misinterpretation of CBC data. Current Interpretive Data was last revised on 2017. Lymphocyte pct 0.5 % [facility] Comment: Interpretive Data Percent cell count reference ranges are not reported, since discordance with absolute values may lead to misinterpretation of CBC data. Current Interpretive Data was last revised on 2017. Monocyte pct 2.2 % [facility] Comment: Interpretive Data Percent cell count reference ranges are not reported, since discordance with absolute values may lead to misinterpretation of CBC data. Current Interpretive Data was last revised on 2017. Eosinophil pct 0.0 % [facility] Comment: Interpretive Data Percent cell count reference ranges are not reported, since discordance with absolute values may lead to misinterpretation of CBC data. Current Interpretive Data was last revised on 2017. Basophil pct 0.0 % [facility] Comment: Interpretive Data Percent cell count reference ranges are not reported, since discordance with absolute values may lead to misinterpretation of CBC data. Current Interpretive Data was last revised on 2017. Blood 01/22/2024 11:1 4 PM SHAPE CARVER 01/22/2024 11:56 PM SHAPE CARVER Larry Travis MD LAB BLOOD ORDERABLE S Final Result Performing Organization Address [facility] Co de Phone Number LINDA [facility] [place] [address] * Tacrolimus level trough (01/22/2024 11:14 PM SHAPE CARVER) [facility] Tacrolimus trough 11.3 ng/mL Comment: reviewed Interpretive Data Testing performed by liquid chromatography-tandem mass spectrometry. Therapeutic concentrations vary depending on type of transplanted organ and time elapsed since transplant. Typical trough concentrations range from 5-15 ng/mL. This test was developed and its performance characteristics determined by the [facility] consistent with CLIA requirements. This test has not been cleared or approved by the US Food and Drug administration. Current interpretive data last reviewed 2019. Blood 01/22/2024 11:1 4 PM SHAPE CARVER 01/22/2024 11:57 PM SHAPE CARVER Ayush Galvez MD LAB BLOOD ORDERABLES Final Result Performing Organization Address [facility] Co de Phone Number LINDA [facility] [place] [address] * (ABNORMAL) CBC with auto differential (01/22/2024 11:14 PM SHAPE CARVER) [facility] WBC 7.4 3.8 - 9.9 K/cumm Hgb 8.5(L) 13.0 - 17.5 g/dL [facility] Hct 25.8(L) 38.9 - 50.3 % [facility] Plt 83(L) 150 - 400 K/cumm [facility] MPV 10.5 9.1 - 12.3 fL [facility] RBC 2.69(L) 4.30 - 5.80 M/cumm [facility] MCV 95.9 81.3 - 96.4 fL [facility] MCH 31.6 27.1 - 33.3 pg [facility] MCHC 32.9 32.3 - 35.7 g/dL [facility] RDW CV 17.6(H) 11.1 - 14.9 % [facility] RDW SD 61.2(H) 35.7 - 48.1 fL [facility] NRBC abs 0.00 0.00 - 0.01 K/cumm [facility] Blood 01/22/2024 11:1 4 PM SHAPE CARVER 01/22/2024 11:56 PM SHAPE CARVER Ayush Galvez MD LAB BLOOD ORDERABLES Final Result [facility] [place] [address] * Type and screen (01/22/2024 11:14 PM SHAPE CARVER) ABO Rh O Negative Kusum, indirect Negative [facility] Blood 01/22/2024 11:1 4 PM SHAPE CARVER 01/23/2024 12:05 AM SHAPE CARVER Narrative [facility] - 01/23/2024 1:02 AM SHAPE CARVER Has the patient had Daratumumab or Isatuximab in the past 6 months?->Unknown Ayush Galvez MD LAB BLOOD BANK TEST ORDERAB LES Final Result Performing Organization Address [facility]/ZIP Co de Phone Number [facility] [place] [address] * Transfuse RBC (01/22/2024 9:29 PM SHAPE CARVER) Blood Ayush Galvez MD BLOOD TRANSFUSION ORDERABLE S Final Result Performing Organization Address City/[facility]/ZIP Co de Phone Number [facility] [place] [address] * XR Chest 1 View (01/22/2024 8:41 PM SHAPE CARVER) Anatomical Region Laterality Modality Body, Chest N/A Computed Radiogr aphy 01/23/2024 7:41 AM SHAPE CARVER Impressions 01/23/2024 7:52 AM SHAPE CARVER Comparison is made to chest radiograph dated [...] Erinn Morataya M.D. Narrative 01/23/2024 7:52 AM SHAPE CARVER EXAMINATION: 1 view chest radiograph Procedure Note [...] ult * POCT glucose (01/22/2024 8:07 PM SHAPE CARVER) [facility] Signature Glucose, POC 163 70 - 199 mg/dL Blood 01/22/2024 8:07 PM SHAPE CARVER 01/22/2024 8:07 PM SHAPE CARVER Ayush Galvez MD LAB POCT ORDERABLES - DEVIC E Final Result [facility] One [facility] Department [place] [address] * POCT glucose (01/22/2024 6:42 PM SHAPE CARVER) [facility] Glucose, POC 173 70 - 199 mg/dL Blood 01/22/2024 6:4 2 PM SHAPE CARVER 01/22/2024 6:42 PM SHAPE CARVER Ayush Galvez MD LAB POCT ORDERABLES - DEVIC E Final Result Performing Organization Address [facility] Co de Phone Number [facility] Department [place] [address] * (ABNORMAL) Troponin I high-sensitivity 6-hour (01/22/2024 6:40 PM SHAPE CARVER) [facility] Trop I hs 842(C) <=35 ng/L Comment: Previous critical value noted within 48 hours ago. Interpretive Data For further [facility]scTnI resources including the diagnostic algorithm and an aid in interpretation, copy and paste this link: https://bjhlab.testcatalog.org/show/hsTrop-1 Current Interpretive Data last revised 2019. Trop I hs pct delta 46(C) % [facility] Comment:Previous critical va lue noted within 48 hours ago. Trop I hs interp Significa nt(C) [facility] Comment:Previous critical va lue noted within 48 hours ago. Blood 01/22/2024 6:40 PM SHAPE CARVER 01/22/2024 6:54 PM SHAPE CARVER Sushma Chino MD LAB BLOOD ORDERABLES Final Resu lt Performing Organization Address City/[facility]/ZIP Co de Phone Number [facility] Department [place] [address] * TRANSTHORACIC ECHO (TTE) COMPLETE W DOPPLER/CF W CONTRAST (01/22/2024 5:31 PM SHAPE CARVER) [facility] LV EF 45 % CARDIOREPORT Anatomical Region Laterality Modality Ultrasound 01/22/2024 4:15 PM SHAPE CARVER Narrative 01/22/2024 5:57 PM SHAPE CARVER Patient name: Ramone Coleman Date of test: 01/22/2024 Type of test: TTE w/Doppler Hospital #: [id number] Date of : 1960 (M) Can Tester: Hamida Wilkins RDCS Referring Physician: AYUSH GALVEZ MD Contrast Agent: 0.9 ml Optison Administered, (2.1 ml wasted). Contrast Administered by: SAURAV [id number] Supervised/Interpreted by: Gamaliel Etienne MD Diagnosis: Location: [facility] Reason for test: [id number] PR (NSTEMI) MV Structure: Normal, MV Motion: Normal, [...] 2=Hypo 3=Akinetic 4=Dyskin./Aneurysm 0=Not visualized) Parasternal [place]:MAS=2 BAS=2 MIL=2 HARINDER=2 Parasternal [place]:MAS=2 MIS=2 PR=3 MIL=2 MAL=2 MA=2 Apical 4 Chambers:=2 MIS=2 BIS=2 BAL=2 MAL=2 AL=2 AC=2 Apical 2 Chambers:AI=2 PR=3 BI=2 BA=2 MA=2 AA=2 AC=2 LV Global Longitudinal Strain: RV Global Longitudinal Strain: LV Function: Mild Global reduction in LV Ejection Fraction (EF= 41-51%) RV Function: mild to moderate global hypokinesis Septal Motion: Pericardial Effusion: minimal Atrial Septum: Normal DOPPLER/COLOR FLOW DOPPLER RESULTS: Diastolic Function: indeterminate Tricuspid Valve: mild to mod TR Pulmonic Valve: Mild WV AV Regurgitation: No AR seen AV Stenosis: [...] no MS, mild to mod TR, Mild WV. Diastolic function: indeterminate. LVOT VTI 9.9 cm [...] mild MR. Mild to moderate TR. Mild WV. Est. PASP 30-35 mm Hg. Minimal pericardial effusion. Compared with 10/29/20, there has been a significant decrease in LV function. Confirmed on 01/22/2024 - 17:57:22 by Gamaliel Etienne MD By signing this report, the attending locksmith helper certifies that he or she has personally supervised and interpreted the echocardiogram and has reviewed and or edited and agrees with the written comments contained within the report. Procedure Note Gamaliel Etienne MD - 01/22/2024 Patient name: Ramone Coleman Date of test: 01/22/2024 Type of test: [facility] w/[facility] #: 0 Date of : 1960 (M) Can Tester: Hamida Wilkins RDCS Referring Physician: AYUSH GALVEZ MD Contrast Agent: 0.9 ml Optison Administered, (2.1 ml wasted). Contrast [place]: [place] [id number] Supervised/Interpreted by: Gamaliel Etienne MD Diagnosis: Location: [facility] Reason for test: wzz-[id number]-[id number] PR (NSTEMI) MV Structure: Normal, MV Motion: Normal, [...] 2=Hypo 3=Akinetic 4=Dyskin./Aneurysm 0=Not visualized) Parasternal [place]:MAS=2 BAS=2 MIL=2 HARINDER=2 Parasternal [place]:MAS=2 MIS=2 PR=3 MIL=2 MAL=2 MA=2 Apical 4 Chambers:=2 MIS=2 BIS=2 BAL=2 MAL=2 AL=2 AC=2 Apical 2 Chambers:AI=2 PR=3 BI=2 BA=2 MA=2 AA=2 AC=2 LV Global Longitudinal Strain: RV Global Longitudinal Strain: LV Function: Mild Global reduction in LV Ejection Fraction (EF= 41-51%) RV Function: mild to moderate global hypokinesis Septal Motion: Pericardial Effusion: minimal Atrial Septum: Normal DOPPLER/COLOR FLOW DOPPLER RESULTS: Diastolic Function: indeterminate Tricuspid Valve: mild to mod TR Pulmonic Valve: Mild WV AV Regurgitation: No AR seen AV Stenosis: [...] no MS, mild to mod TR, Mild WV. Diastolic function: indeterminate. LVOT VTI 9.9 cm [...] mild MR. Mild to moderate TR. Mild WV. Est. PASP 30-35 mm Hg. Minimal pericardial effusion. Compared with 10/29/20, there has been a significant decrease in LV function. Confirmed on 01/22/2024 - 17:57:22 by Gamaliel Etienne MD By signing this report, the attending locksmith helper certifies that he or she has personally supervised and interpreted the echocardiogram and has reviewed and or edited and agrees with the written comments contained within the report. us Ayush Galvez MD CV ECHO PROCEDURES Final Re sult * (ABNORMAL) Troponin I high-sensitivity 4-hour (01/22/2024 4:14 PM SHAPE CARVER) Trop I hs 738(C) <=35 ng/L Comment: Previous critical value noted within 48 hours ago. Interpretive Data For further [facility] resources including the diagnostic algorithm and an aid in interpretation, copy and paste this link: [email or web address].org/show/[email or web address]-[email or web address] Current Interpretive Data last revised 2019. Trop I hs pct delta 28(C) % [facility] Comment:Previous critical va lue noted within 48 hours ago. Trop I hs interp Significa nt(C) [facility] Comment:Previous critical va lue noted within 48 hours ago. Blood 01/22/2024 4:14 PM SHAPE CARVER 01/22/2024 4:28 PM SHAPE CARVER Sushma Chino MD LAB BLOOD ORDERABLES Final Resu lt Performing Organization Address City/[facility]/ZIP Co de Phone Number [facility] Department [place] [address] * Type and screen (01/22/2024 4:14 PM SHAPE CARVER) Pathologist [facility] Kusum, indirect Negative ABO Rh O Negative [facility] Blood 01/22/2024 4:14 PM SHAPE CARVER 01/22/2024 4:25 PM SHAPE CARVER Narrative [facility] - 01/22/2024 5:19 PM SHAPE CARVER Has the patient had Daratumumab or Isatuximab in the past 6 months?->Unknown us Rosalie Velásquez NP LAB BLOOD BANK TEST ORDERAB LES Final Result Performing Organization Address [facility] Co de Phone Number [facility] Department [place] [address] * ECG 12 lead (01/22/2024 3:39 PM SHAPE CARVER) Ventricular Rate EKG/Min 93 BPM [facility] Atrial Rate 122 BPM [facility] QRS-Interval (MSEC) 134 ms [facility] QT-Interval (MSEC) 408 ms [facility] QTc 507 ms [facility] R Bend 11 degrees [facility] T Bend -33 degrees [facility] Diagnosis Atrial fibrillation Non-specific intra-ventricula r conduction block Nonspecific ST and T wave abnormality Abnormal ECG When compared with ECG of 22-JAN-2024 12:59, (unconfirmed) T wave inversion less evident in Anterolateral leads Confirmed by ERICK ARITA M.D ([id number]) on 01/24/2024 5:47:26 AM [facility] 01/22/2024 3:39 PM SHAPE CARVER 01/24/2024 5:47 AM SHAPE CARVER Monster Harding MD ECG ORDERABLES Final R esult [facility] * (ABNORMAL) CBC without differential (01/22/2024 2:07 PM SHAPE CARVER) [facility] WBC 5.3 3.8 - 9.9 K/cumm Hgb 7.7(L) 13.0 - 17.5 g/dL [facility] Hct 23.1(L) 38.9 - 50.3 % [facility] Plt 75(L) 150 - 400 K/cumm [facility] MPV 10.5 9.1 - 12.3 fL [facility] RBC 2.35(L) 4.30 - 5.80 M/cumm [facility] MCV 98.3(H) 81.3 - 96.4 fL [facility] MCH 32.8 27.1 - 33.3 pg [facility] MCHC 33.3 32.3 - 35.7 g/dL [facility] RDW CV 15.5(H) 11.1 - 14.9 % [facility] RDW SD 54.8(H) 35.7 - 48.1 fL [facility] NRBC abs 0.00 0.00 - 0.01 K/cumm [facility] Blood 01/22/2024 2:07 PM SHAPE CARVER 01/22/2024 2:29 PM SHAPE CARVER us Ayush Galvez MD LAB BLOOD ORDERABLES Final Result Performing Organization Address City/[facility]/ZIP Co de Phone Number [facility] One [facility] Department [place] [address] * ECG 12 lead (01/22/2024 12:59 PM SHAPE CARVER) Pathologist [facility] Ventricular Rate EKG/Min 112 BPM [facility] Atrial Rate 120 BPM [facility] QRS-Interval (MSEC) 126 ms [facility] QT-Interval (MSEC) 296 ms [facility] QTc 404 ms [facility] R Bend 8 degrees [facility] T Bend 207 degrees [facility] Diagnosis Atrial fibrillation with rapid ventricular response Non-specific intra-ventricula r conduction block Nonspecific ST and T wave abnormality Abnormal ECG When compared with ECG of 21-JAN-2024 05:17, (unconfirmed) Atrial fibrillation has replaced Sinus rhythm ST now depressed in Anterior leads T wave inversion now evident in Anterolateral leads Confirmed by ERICK ARITA M.D ([id number]) on 01/24/2024 5:44:44 AM [facility] 01/22/2024 12:5 9 PM SHAPE CARVER 01/24/2024 5:44 AM SHAPE CARVER Sushma Chino MD ECG ORDERABLES Final Result [facility] * (ABNORMAL) Troponin I high-sensitivity series (baseline, 2hr, 4hr, 6hr) (01/22/2024 12:18 PM SHAPE CARVER) [facility] Trop I hs 575(C) <=35 ng/L Comment: Interpretive Data For further [facility] resources including the diagnostic algorithm and an aid in interpretation, copy and paste this link: https://bjhlab.testcatalog.org/show/[email or web address] Current Interpretive Data last revised 2019. Blood 01/22/2024 12:1 8 PM SHAPE CARVER 01/22/2024 12:36 PM SHAPE CARVER Sushma hCino MD LAB BLOOD ORDERABLES Final Resu lt [facility]DA [facility] One [facility] [place] [address] * Critical result callback Cardio chemistry (01/22/2024 12:18 PM SHAPE CARVER) Date Notified [id number] Time Notified 1341 LINDA [facility] Test name Braden rob LINDA [facility] Called/Read Back Clarissa Dominguez [facility] Credentials RN LINDA BALLARD Called By CHANDA BALLARD Blood 01/22/2024 12:1 8 PM SHAPE CARVER 01/22/2024 12:36 PM SHAPE CARVER Sushma Chino MD LAB BLOOD ORDERABLES Final Resu lt [facility] [place] [address] * (ABNORMAL) eGFR (01/22/2024 12:18 PM SHAPE CARVER) eGFR 13(L) >=60 mL/min/1. 73 m2 Comment: [...] reviewed 2020. Blood 01/22/2024 12:1 8 PM SHAPE CARVER 01/22/2024 12:36 PM SHAPE CARVER Sushma Chino MD LAB BLOOD ORDERABLES Final Resu lt [facility] Department [place] [address] * (ABNORMAL) Phosphorus (01/22/2024 12:18 PM SHAPE CARVER) [facility] Phosphorus, pl 5.8(H) 2.3 - 4.5 mg/dL Blood 01/22/2024 12:1 8 PM SHAPE CARVER 01/22/2024 12:36 PM SHAPE CARVER Sushma Chino MD LAB BLOOD ORDERABLES Final Resu lt Performing Organization Address [facility] [address] * Magnesium (01/22/2024 12:18 PM SHAPE CARVER) [facility] Magnesium 1.8 1.4 - 2.5 mg/dL Blood 01/22/2024 12:1 8 PM SHAPE CARVER 01/22/2024 12:36 PM SHAPE CARVER Sushma Chino MD LAB BLOOD ORDERABLES Final Resu lt Performing Organization Address [facility] de Phone Number [facility] [place] [address] * (ABNORMAL) Basic metabolic panel (01/22/2024 12:18 PM SHAPE CARVER) [facility] Sodium 135 135 - 145 mmol/L Potassium, pl 4.0 3.3 - 4.9 mmol/L [facility] Chloride 94(L) 97 - 110 mmol/L [facility] CO2 26 22 - 32 mmol/L [facility] Anion gap 15 2 - 15 mmol/L [facility] BUN 33(H) 6 - 25 mg/dL [facility] Creatinine 4.67(H) 0.80 - 1.30 mg/dL [facility] Glucose 130 70 - 199 mg/dL [facility] Comment: Interpretive Data Fasting glucose >/= [...] 2022. Calcium 8.6 8.5 - 10.3 mg/dL [facility] Blood 01/22/2024 12:1 8 PM SHAPE CARVER 01/22/2024 12:36 PM SHAPE CARVER us Sushma Chino MD LAB BLOOD ORDERABLES Final Resu lt Performing Organization Address City/[facility]/ZIP Co de Phone Number [facility] Department [place] [address] * POCT glucose (01/22/2024 11:35 AM SHAPE CARVER) Glucose, POC 134 70 - 199 mg/dL Blood 01/22/2024 11:3 5 AM SHAPE CARVER 01/22/2024 11:35 AM SHAPE CARVER us Ayush Galvez MD LAB POCT ORDERABLES - DEVIC E Final Result Performing Organization Address [facility] Co de Phone Number [facility] Department [place] [address] * XR Abdomen Ap 1 Vw (01/22/2024 10:29 AM SHAPE CARVER) Anatomical Region Laterality Modality Body, Abdomen N/A Computed Radiogr aphy 01/22/2024 10:3 9 AM SHAPE CARVER Impressions 01/22/2024 11:52 AM SHAPE CARVER A single view of the abdomen is [...] Mohsen Vallejo M.D. Narrative 01/22/2024 11:52 AM SHAPE CARVER EXAMINATION: Abdomen, one view. HISTORY: Abdominal closure [...] IMG XR PROCEDURES Final Re sult * WV AN ELECTIVE ENDOTRACHEAL AIRWAY, WV AN PROCEDURE PLACEHOLDER (01/22/2024 9:42 AM SHAPE CARVER) Narrative Nisa Patricia CRNA - 01/22/2024 9:42 AM SHAPE CARVER Nisa Patricia CRNA 01/22/2024 9:56 AM Airway [...] Final * (ABNORMAL) eGFR (01/22/2024 9:02 AM SHAPE CARVER) eGFR 13(L) >=60 mL/min/1. 73 m2 Comment: [...] last reviewed 2020. Blood 01/22/2024 9:02 AM SHAPE CARVER 01/22/2024 9:25 AM SHAPE CARVER us Mathieu Hayden MD LAB BLOOD ORDERABLES Final Result LINDA B[facility]ARD [facility] [place] [address] * (ABNORMAL) Basic metabolic panel (01/22/2024 9:02 AM SHAPE CARVER) Sodium 134(L) 135 - 145 mmol/L Potassium, pl 4.1 3.3 - 4.9 mmol/L [facility] Chloride 92(L) 97 - 110 mmol/L [facility] CO2 27 22 - 32 mmol/L [facility] Anion gap 15 2 - 15 mmol/L [facility] BUN 32(H) 6 - 25 mg/dL [facility] Creatinine 4.62(H) 0.80 - 1.30 mg/dL [facility] Glucose 168 70 - 199 mg/dL [facility] Comment: Interpretive Data Fasting glucose >/= [...] 2022. Calcium 9.2 8.5 - 10.3 mg/dL [facility] Blood 01/22/2024 9:0 2 AM SHAPE CARVER 01/22/2024 9:25 AM SHAPE CARVER Mathieu Hayden MD LAB BLOOD ORDERABLES Final Result Performing Organization Address [facility] Co de Phone Number [facility] Department [place] [address] * POCT glucose (01/22/2024 9:01 AM SHAPE CARVER) [facility] Glucose, POC 177 70 - 199 mg/dL Blood 01/22/2024 9:01 AM SHAPE CARVER 01/22/2024 9:01 AM SHAPE CARVER Ayush Galvez MD LAB POCT ORDERABLES - DEVIC E Final Result Performing Organization Address [facility]/ZIP Co de Phone Number [facility] Department [place] [address] * POCT glucose (01/22/2024 8:26 AM SHAPE CARVER) Glucose, POC 154 70 - 199 mg/dL Blood 01/22/2024 8:26 AM SHAPE CARVER 01/22/2024 8:26 AM SHAPE CARVER us Ayush Galvez MD LAB POCT ORDERABLES - DEVIC E Final Result Performing Organization Address City/[facility]/ZIP Co de Phone Number LINDA [facility] Department [place] [address] * (ABNORMAL) eGFR (01/22/2024 4:58 AM SHAPE CARVER) eGFR 15(L) >=60 mL/min/1. 73 m2 Comment: [...] last reviewed 2020. Blood 01/22/2024 4:58 AM SHAPE CARVER 01/22/2024 5:46 AM SHAPE CARVER us Larry Travis MD LAB BLOOD ORDERABLE S Final Result Performing Organization Address City/[facility]/ZIP Co de Phone Number [facility] [place] [address] * (ABNORMAL) Differential, auto (01/22/2024 4:58 AM SHAPE CARVER) Pathologist [facility] Neutrophil abs 5.8 1.5 - 6.5 K/cumm Imm gran abs 0.0 0.0 - 0.1 K/cumm [facility] Lymphocyte abs 0.0(L) 0.8 - 3.3 K/cumm [facility] Monocyte abs 0.2 0.2 - 0.8 K/cumm [facility] Eosinophil abs 0.0 0.0 - 0.5 K/cumm [facility] Basophil abs 0.0 0.0 - 0.1 K/cumm [facility] Neutrophil pct 96.0 % [facility] Comment: Interpretive Data Percent cell count reference ranges are not reported, since discordance with absolute values may lead to misinterpretation of CBC data. Current Interpretive Data was last revised on 2017. Imm gran pct 0.3 % [facility] Comment: Interpretive Data Percent cell count reference ranges are not reported, since discordance with absolute values may lead to misinterpretation of CBC data. Current Interpretive Data was last revised on 2017. Lymphocyte pct 0.7 % [facility] Comment: Interpretive Data Percent cell count reference ranges are not reported, since discordance with absolute values may lead to misinterpretation of CBC data. Current Interpretive Data was last revised on 2017. Monocyte pct 3.0 % [facility] Comment: Interpretive Data Percent cell count reference ranges are not reported, since discordance with absolute values may lead to misinterpretation of CBC data. Current Interpretive Data was last revised on 2017. Eosinophil pct 0.0 % [facility] Comment: Interpretive Data Percent cell count reference ranges are not reported, since discordance with absolute values may lead to misinterpretation of CBC data. Current Interpretive Data was last revised on 2017. Basophil pct 0.0 % [facility] Comment: Interpretive Data Percent cell count reference ranges are not reported, since discordance with absolute values may lead to misinterpretation of CBC data. Current Interpretive Data was last revised on 2017. Blood 01/22/2024 4:58 AM SHAPE CARVER 01/22/2024 5:45 AM SHAPE CARVER Larry Travis MD LAB BLOOD ORDERABLE S Final Result Performing Organization Address [facility] de Phone Number [facility] [place] [address] * Tacrolimus level trough (01/22/2024 4:58 AM SHAPE CARVER) [facility] Tacrolimus trough 4.7 ng/mL Comment: Interpretive Data Testing performed by liquid chromatography-tandem mass spectrometry. Therapeutic concentrations vary depending on type of transplanted organ and time elapsed since transplant. Typical trough concentrations range from 5-15 ng/mL. This test was developed and its performance characteristics determined by the [facility] consistent with CLIA requirements. This test has not been cleared or approved by the [place] Food and Drug administration. Current interpretive data last reviewed 2019. Blood 01/22/2024 4:58 AM SHAPE CARVER 01/22/2024 5:46 AM SHAPE CARVER Ayush Galvez MD LAB BLOOD ORDERABLES Final Result Performing Organization Address [facility] de Phone Number [facility] Department [place] [address] * (ABNORMAL) CBC with auto differential (01/22/2024 4:58 AM SHAPE CARVER) [facility] WBC 6.0 3.8 - 9.9 K/cumm Hgb 8.2(L) 13.0 - 17.5 g/dL [facility] [facility] Hct 23.8(L) 38.9 - 50.3 % [facility] Plt 79(L) 150 - 400 K/cumm [facility] MPV 10.2 9.1 - 12.3 fL [facility] RBC 2.48(L) 4.30 - 5.80 M/cumm [facility] MCV 96.0 81.3 - 96.4 fL [facility] MCH 33.1 27.1 - 33.3 pg [facility] MCHC 34.5 32.3 - 35.7 g/dL [facility] RDW CV 15.3(H) 11.1 - 14.9 % [facility] RDW SD 53.1(H) 35.7 - 48.1 fL [facility] NRBC abs 0.00 0.00 - 0.01 K/cumm [facility] Blood 01/22/2024 4:58 AM SHAPE CARVER 01/22/2024 5:45 AM SHAPE CARVER Ayush Galvez MD LAB BLOOD ORDERABLES Final Result Performing Organization Address City/[facility]/ZIP Co de Phone Number [facility] [place] [address] * Magnesium (01/22/2024 4:58 AM SHAPE CARVER) Magnesium 2.2 1.4 - 2.5 mg/dL Blood 01/22/2024 4:58 AM SHAPE CARVER 01/22/2024 5:46 AM SHAPE CARVER Ayush Galvez MD LAB BLOOD ORDERABLES Final Result Performing Organization Address [facility]/[place] Co de Phone Number [facility] [place] [address] * (ABNORMAL) Lactate dehydrogenase (LD) (01/22/2024 4:58 AM SHAPE CARVER) Lactate dehydrogenase (LDH) 252(H) 100 - 250 Units/L Blood 01/22/2024 4:58 AM SHAPE CARVER 01/22/2024 5:46 AM SHAPE CARVER Ayush Galvez MD LAB BLOOD ORDERABLES Final Result Performing Organization Address City/[facility]/[place] Co de Phone Number [facility] [place] [address] * Haptoglobin (01/22/2024 4:58 AM SHAPE CARVER) Haptoglobin 116.0 30.0 - 200.0 mg/dL Blood 01/22/2024 4:58 AM SHAPE CARVER 01/22/2024 5:46 AM SHAPE CARVER Ayush Galvez MD LAB BLOOD ORDERABLES Final Result [facility] One [facility] Department [place] [address] * (ABNORMAL) Renal function panel (01/22/2024 4:58 AM SHAPE CARVER) Sodium 134(L) 135 - 145 mmol/L Potassium, pl 4.4 3.3 - 4.9 mmol/L [facility] Chloride 93(L) 97 - 110 mmol/L [facility] CO2 30 22 - 32 mmol/L [facility] Anion gap 11 2 - 15 mmol/L [facility] BUN 29(H) 6 - 25 mg/dL [facility] Creatinine 4.19(H) 0.80 - 1.30 mg/dL [facility] Glucose 125 70 - 199 mg/dL [facility] Comment: Interpretive Data Fasting glucose >/= [...] 2022. Calcium 9.2 8.5 - 10.3 mg/dL [facility] Phosphorus, pl 5.6(H) 2.3 - 4.5 mg/dL [facility] Albumin 3.4(L) 3.5 - 5.0 g/dL [facility] Blood 01/22/2024 4:58 AM SHAPE CARVER 01/22/2024 5:46 AM SHAPE CARVER Ayush Galvez MD LAB BLOOD ORDERABLES [place] [address] * (ABNORMAL) POCT glucose (01/21/2024 8:34 PM SHAPE CARVER) Glucose, POC 238(H) 70 - 199 mg/dL Blood 01/21/2024 8:34 PM SHAPE CARVER 01/21/2024 8:34 PM SHAPE CARVER Ayush Galvez MD LAB POCT ORDERABLES - DEVIC E Final Result Performing Organization Address City/[facility]/[place] [address] * (ABNORMAL) POCT glucose (01/21/2024 6:37 PM SHAPE CARVER) [facility] Signature Glucose, POC 202(H) 70 - 199 mg/dL Blood 01/21/2024 6:37 PM SHAPE CARVER 01/21/2024 6:37 PM SHAPE CARVER Ayush Galvez MD LAB POCT ORDERABLES - DEVIC E Final Result Performing Organization Address City/[facility]/[place] [address] * (ABNORMAL) Potassium, whole blood (01/21/2024 4:22 PM SHAPE CARVER) [facility] Potassium, bld 6.0(H) 3.3 - 4.9 mmol/L Blood 01/21/2024 4:22 PM SHAPE CARVER 01/21/2024 4:32 PM SHAPE CARVER us Rosalie Velásquez NP LAB BLOOD [place] [address] * (ABNORMAL) CBC without differential (01/21/2024 1:51 PM SHAPE CARVER) WBC 14.5(H) 3.8 - 9.9 K/cumm Hgb 8.5(L) 13.0 - 17.5 g/dL [facility] Hct 25.8(L) 38.9 - 50.3 % [facility] Plt 101(L) 150 - 400 K/cumm [facility] MPV 10.4 9.1 - 12.3 fL [facility] RBC 2.61(L) 4.30 - 5.80 M/cumm [facility] MCV 98.9(H) 81.3 - 96.4 fL [facility] MCH 32.6 27.1 - 33.3 pg [facility] MCHC 32.9 32.3 - 35.7 g/dL [facility] RDW CV 15.6(H) 11.1 - 14.9 % [facility] RDW SD 55.2(H) 35.7 - 48.1 fL [facility] NRBC abs 0.00 0.00 - 0.01 K/cumm [facility] Blood 01/21/2024 1:51 PM SHAPE CARVER 01/21/2024 2:12 PM SHAPE CARVER Susi LEE LAB BLOOD ORDERABLES Final Result Performing Organization Address City/[facility]/ZIP Co de Phone Number [facility] [place] [address] * POCT glucose (01/21/2024 12:26 PM SHAPE CARVER) Pathologist [facility] Glucose, POC 178 70 - 199 mg/dL Blood 01/21/2024 12:2 6 PM SHAPE CARVER 01/21/2024 12:26 PM SHAPE CARVER Ayush Galvez MD LAB POCT ORDERABLES - DEVIC E Final Result Performing Organization Address [facility]/ZIP Co de Phone Number [facility] [place] [address] * [place] AN PROCEDURE PLACEHOLDER (01/21/2024 10:41 AM SHAPE CARVER) Narrative Roscoe Sandhu MD - 01/21/2024 10:41 AM SHAPE CARVER Roscoe Sandhu MD 01/21/2024 10:43 AM Arterial [...] sult * (ABNORMAL) Potassium (01/21/2024 8:39 AM SHAPE CARVER) Potassium, pl 6.1(H) 3.3 - 4.9 mmol/L Blood 01/21/2024 8:39 AM SHAPE CARVER 01/21/2024 9:10 AM SHAPE CARVER Narrative [facility] - 01/21/2024 9:32 AM SHAPE CARVER Provider to discontinue after two normal results. Ayush Galvez MD LAB BLOOD ORDERABLES Final Result Performing Organization Address [facility]/[place] Co de Phone Number [facility] One [facility] Department [place] [address] * (ABNORMAL) POCT glucose (01/21/2024 8:10 AM SHAPE CARVER) Glucose, POC 297(H) 70 - 199 mg/dL Blood 01/21/2024 8:10 AM SHAPE CARVER 01/21/2024 8:10 AM SHAPE CARVER Ayush aGlvez MD LAB POCT ORDERABLES - DEVIC E Final Result Performing Organization Address City/State/[place] Co de Phone Number [facility] [place] [address] * (ABNORMAL) POCT glucose (01/21/2024 6:47 AM SHAPE CARVER) Glucose, POC 236(H) 70 - 199 mg/dL Blood 01/21/2024 6:47 AM SHAPE CARVER 01/21/2024 6:47 AM SHAPE CARVER Ayush Galvez MD LAB POCT ORDERABLES - DEVIC E Final Result Performing Organization Address [facility] de Phone Number [facility] [place] [address] * (ABNORMAL) POCT glucose (01/21/2024 5:46 AM SHAPE CARVER) Glucose, POC 234(H) 70 - 199 mg/dL Blood 01/21/2024 5:46 AM SHAPE CARVER 01/21/2024 5:46 AM SHAPE CARVER us Ayush Galvez MD LAB POCT ORDERABLES - DEVIC E Final Result Performing Organization Address [facility] de Phone Number [facility] [place] [address] * (ABNORMAL) Potassium, whole blood (01/21/2024 5:22 AM SHAPE CARVER) Potassium, bld 5.7(H) 3.3 - 4.9 mmol/L Comment:No hemolyse Blood 01/21/2024 5:22 AM SHAPE CARVER 01/21/2024 5:28 AM SHAPE CARVER Ayush Galvez MD LAB BLOOD ORDERABLES Final Result Performing Organization Address [facility]/[place] Co de Phone Number [facility] [place] [address] * ECG 12 lead (01/21/2024 5:17 AM SHAPE CARVER) Ventricular Rate EKG/Min 82 BPM [facility] Atrial Rate 82 BPM [facility] W[place]-Interval (MSEC) 256 ms [facility] QRS-Interval (MSEC) 132 ms [facility] QT-Interval (MSEC) 408 ms [facility] QTc 476 ms [facility] P Bend 71 degrees [facility] R Bend 13 degrees [facility] T Bend -20 degrees [facility] Diagnosis Sinus rhythm with marked sinus arrhythmia with 1st degree A-V block Non-specific intra-ventricu lar conduction block Abnormal ECG When compared with ECG of 17-SEP-2023 08:34, No significant change was found Confirmed by JENNIFER BYRD M.D ([id number]) on 01/22/2024 5:00:18 PM [facility] 01/21/2024 5:17 AM SHAPE CARVER 01/22/2024 5:00 PM SHAPE CARVER us Ayush Galvez MD ECG ORDERABLES Final Resul t [facility] * (ABNORMAL) eGFR (01/21/2024 4:18 AM SHAPE CARVER) Pathologist [facility] eGFR 10(L) >=60 mL/min/1. 73 m2 Comment: [...] last reviewed 2020. Blood 01/21/2024 4:18 AM SHAPE CARVER 01/21/2024 4:33 AM SHAPE CARVER us Larry Travis MD LAB BLOOD ORDERABLE S Final Result [facility] One [facility] Department [place] [address] * (ABNORMAL) Differential, auto (01/21/2024 4:18 AM SHAPE CARVER) Neutrophil abs 10.2(H) 1.5 - 6.5 K/cumm Imm gran abs 0.0 0.0 - 0.1 K/cumm [facility] Lymphocyte abs 0.0(L) 0.8 - 3.3 K/cumm [facility] Monocyte abs 0.2 0.2 - 0.8 K/cumm [facility] Eosinophil abs 0.0 0.0 - 0.5 K/cumm [facility] Basophil abs 0.0 0.0 - 0.1 K/cumm [facility] Neutrophil pct 97.4 % [facility] Comment: Interpretive Data Percent cell count reference ranges are not reported, since discordance with absolute values may lead to misinterpretation of CBC data. Current Interpretive Data was last revised on 2017. Imm gran pct 0.4 % [facility] Comment: Interpretive Data Percent cell count reference ranges are not reported, since discordance with absolute values may lead to misinterpretation of CBC data. Current Interpretive Data was last revised on 2017. Lymphocyte pct 0.2 % [facility] Comment: Interpretive Data Percent cell count reference ranges are not reported, since discordance with absolute values may lead to misinterpretation of CBC data. Current Interpretive Data was last revised on 2017. Monocyte pct 1.9 % [facility] Comment: Interpretive Data Percent cell count reference ranges are not reported, since discordance with absolute values may lead to misinterpretation of CBC data. Current Interpretive Data was last revised on 2017. Eosinophil pct 0.0 % [facility] Comment: Interpretive Data Percent cell count reference ranges are not reported, since discordance with absolute values may lead to misinterpretation of CBC data. Current Interpretive Data was last revised on 2017. Basophil pct 0.1 % [facility] Comment: Interpretive Data Percent cell count reference ranges are not reported, since discordance with absolute values may lead to misinterpretation of CBC data. Current Interpretive Data was last revised on 2017. Blood 01/21/2024 4:18 AM SHAPE CARVER 01/21/2024 4:34 AM SHAPE CARVER Larry Travis MD LAB BLOOD ORDERABLE S Final Result [facility] Department [place] [address] * Critical Result Callback Chemistry (01/21/2024 4:18 AM SHAPE CARVER) Date Notified [id number] Time Notified 509 [facility] TestName Potassium Plas [facility] Called/Read Back Vibha MCKEON [facility] Credentials RN [facility] Called By SANDEEP BALLARD Blood 01/21/2024 4:18 AM SHAPE CARVER 01/21/2024 4:33 AM SHAPE CARVER Larry Travis MD LAB BLOOD ORDERABLE S Final Result [facility] Department [place] [address] * Tacrolimus level trough (01/21/2024 4:18 AM SHAPE CARVER) Tacrolimus trough <1.0 ng/mL Comment: Undetectable. Please verify that the correct immunosuppressant test was requested. Interpretive Data Testing performed by liquid chromatography-tandem mass spectrometry. Therapeutic concentrations vary depending on type of transplanted organ and time elapsed since transplant. Typical trough concentrations range from 5-15 ng/mL. This test was developed and its performance characteristics determined by the [facility] consistent with CLIA requirements. This test has not been cleared or approved by the [place] Food and Drug administration. Current interpretive data last reviewed 2019. Blood 01/21/2024 4:18 AM SHAPE CARVER 01/21/2024 4:34 AM SHAPE CARVER Ayush Galvez MD LAB BLOOD ORDERABLES Final Result Performing Organization Address City/[facility]/[place] Co de Phone Number [facility] [place] [address] * (ABNORMAL) CBC with auto differential (01/21/2024 4:18 AM SHAPE CARVER) Pathologist [facility] WBC 10.5(H) 3.8 - 9.9 K/cumm Hgb 8.7(L) 13.0 - 17.5 g/dL [facility] Hct 25.8(L) 38.9 - 50.3 % [facility] Plt 110(L) 150 - 400 K/cumm [facility] MPV 9.7 9.1 - 12.3 fL [facility] RBC 2.66(L) 4.30 - 5.80 M/cumm [facility] MCV 97.0(H) 81.3 - 96.4 fL [facility] MCH 32.7 27.1 - 33.3 pg [facility] MCHC 33.7 32.3 - 35.7 g/dL [facility] RDW CV 15.9(H) 11.1 - 14.9 % [facility] RDW SD 55.3(H) 35.7 - 48.1 fL [facility] NRBC abs 0.00 0.00 - 0.01 K/cumm [facility] Blood 01/21/2024 4:18 AM SHAPE CARVER 01/21/2024 4:34 AM SHAPE CARVER Ayush Galvez MD LAB BLOOD ORDERABLES Final Result Performing Organization Address [facility]/ZIP Co de Phone Number [facility] [place] [address] * Magnesium (01/21/2024 4:18 AM SHAPE CARVER) Magnesium 2.1 1.4 - 2.5 mg/dL Blood 01/21/2024 4:18 AM SHAPE CARVER 01/21/2024 4:33 AM SHAPE CARVER Ayush Galvez MD LAB BLOOD ORDERABLES Final Result [facility] One [facility] Department [place] [address] * (ABNORMAL) Renal function panel (01/21/2024 4:18 AM SHAPE CARVER) Pathologist [facility] Sodium 135 135 - 145 mmol/L Potassium, pl 6.4(C) 3.3 - 4.9 mmol/L [facility] Chloride 94(L) 97 - 110 mmol/L [facility] CO2 25 22 - 32 mmol/L [facility] Anion gap 16(H) 2 - 15 mmol/L [facility] BUN 34(H) 6 - 25 mg/dL [facility] Creatinine 5.99(H) 0.80 - 1.30 mg/dL [facility] Glucose 217(H) 70 - 199 mg/dL [facility] Comment: Interpretive Data Fasting glucose >/= [...] 2022. Calcium 9.0 8.5 - 10.3 mg/dL [facility] Phosphorus, pl 6.5(H) 2.3 - 4.5 mg/dL [facility] Albumin 3.5 3.5 - 5.0 g/dL [facility] Blood 01/21/2024 4:18 AM SHAPE CARVER 01/21/2024 4:33 AM SHAPE CARVER us Ayush Galvez MD LAB BLOOD ORDERABLES Final Result [facility] One [facility] Department [place] [address] * US Renal Transplant W Dopplers (01/20/2024 11:24 PM SHAPE CARVER) Anatomical Region Laterality Modality Kidney N/A Ultrasound 01/21/2024 1:42 AM SHAPE CARVER Impressions 01/21/2024 8:21 AM SHAPE CARVER 1. Normal transplant kidney morphology without hydronephrosis. [...] Kyle Perez M.D. Narrative 01/21/2024 8:21 AM SHAPE CARVER EXAMINATION: RENAL TRANSPLANT ULTRASOUND WITH DOPPLER HISTORY: [...] * (ABNORMAL) POCT glucose (01/20/2024 8:56 PM SHAPE CARVER) Glucose, POC 263(H) 70 - 199 mg/dL Blood 01/20/2024 8:56 PM SHAPE CARVER 01/20/2024 8:56 PM SHAPE CARVER us Ayush Galvez MD LAB POCT ORDERABLES - DEVIC E Final Result [facility] One [facility] [place] [address] * XR Chest 1 View (01/20/2024 5:58 PM SHAPE CARVER) Anatomical Region Laterality Modality Body, Chest N/A Computed Radiogr aphy 01/21/2024 9:14 AM SHAPE CARVER Impressions 01/21/2024 9:14 AM SHAPE CARVER Comparison 01/18/2024. Sternal plates and wires are aligned and intact. Right internal jugular central venous catheter tip overlies superior vena cava. Mild bibasilar opacity may represent a combination of mild edema and atelectasis superimposed on underlying chronic interstitial lung disease, unchanged given the smaller lung volumes. No pneumothorax seen. Cardiomediastinal silhouette stable. Electronically signed by: Omar Hollins M.D. Narrative 01/21/2024 9:14 AM SHAPE CARVER EXAMINATION: 1 view chest radiograph Procedure Note [...] esult * (ABNORMAL) eGFR (01/20/2024 5:08 PM SHAPE CARVER) eGFR 12(L) >=60 mL/min/1. 73 m2 Comment: [...] last reviewed 2020. Blood 01/20/2024 5:08 PM SHAPE CARVER 01/20/2024 5:27 PM SHAPE CARVER Larry Travis MD LAB BLOOD ORDERABLE S Final Result Performing Organization Address [facility]/[place] Co de Phone Number [facility] [place] [address] * (ABNORMAL) CBC without differential (01/20/2024 5:08 PM SHAPE CARVER) WBC 11.3(H) 3.8 - 9.9 K/cumm Hgb 9.4(L) 13.0 - 17.5 g/dL [facility] Hct 28.1(L) 38.9 - 50.3 % [facility] Plt 134(L) 150 - 400 K/cumm [facility] MPV 9.4 9.1 - 12.3 fL [facility] RBC 2.88(L) 4.30 - 5.80 M/cumm [facility] MCV 97.6(H) 81.3 - 96.4 fL [facility] MCH 32.6 27.1 - 33.3 pg [facility] MCHC 33.5 32.3 - 35.7 g/dL [facility] RDW CV 15.4(H) 11.1 - 14.9 % [facility] RDW SD 54.8(H) 35.7 - 48.1 fL [facility] NRBC abs 0.03(H) 0.00 - 0.01 K/cumm [facility] Blood 01/20/2024 5:08 PM SHAPE CARVER 01/20/2024 5:27 PM SHAPE CARVER Larry Travis MD LAB BLOOD ORDERABLE S Final Result [facility] [place] [address] * (ABNORMAL) Renal function panel (01/20/2024 5:08 PM SHAPE CARVER) Sodium 136 135 - 145 mmol/L Potassium, pl 5.0(H) 3.3 - 4.9 mmol/L [facility] Chloride 95(L) 97 - 110 mmol/L [facility] CO2 27 22 - 32 mmol/L [facility] Anion gap 14 2 - 15 mmol/L [facility] BUN 25 6 - 25 mg/dL [facility] Creatinine 5.21(H) 0.80 - 1.30 mg/dL [facility] Glucose 180 70 - 199 mg/dL [facility] Comment: Interpretive Data Fasting glucose >/= [...] 2022. Calcium 9.0 8.5 - 10.3 mg/dL [facility] Phosphorus, pl 6.0(H) 2.3 - 4.5 mg/dL [facility] Albumin 3.3(L) 3.5 - 5.0 g/dL [facility] Blood 01/20/2024 5:08 PM SHAPE CARVER 01/20/2024 5:27 PM SHAPE CARVER us Larry Travis MD LAB BLOOD ORDERABLE S Final Result [facility] One [facility] Department [place] [address] * POCT glucose (01/20/2024 4:51 PM SHAPE CARVER) Glucose, POC 162 70 - 199 mg/dL Blood 01/20/2024 4:5 1 PM SHAPE CARVER 01/20/2024 4:51 PM SHAPE CARVER us Larry Travis MD LAB POCT ORDERABLES - DEVICE Final Result [facility] Yen [facility] Department [place] [address] * (ABNORMAL) POC Blood Gas and Chemistries, Arterial - (01/20/2024 4:23 PM SHAPE CARVER) pH, Art POC 7.33(L) 7.35 - 7.45 pCO2, Art POC 54(H) 35 - 45 mmHg [facility] pO2, Art POC 104 83 - 108 mmHg [facility] Na, POC 135 135 - 145 mmol/L [facility] K POC 5.2(H) 3.3 - 4.9 mmol/L [facility] Comment: Interpretive Data Not all point of care methods assess for hemolysis. Confirm with instrument and retest K+ if not consistent with clinical signs and symptoms. Current Interpretive Data was last revised on 2023. Cl, POC 99 97 - 110 mmol/L [facility] Ionized Ca, POC 4.82 4.50 - 5.10 mg/dL [facility] Glucose, POC 171 70 - 199 mg/dL [facility] Lactate, POC 2.6(H) 0.7 - 2.2 mmol/L [facility] SO2 (elvia) arterial 99(H) 90 - 95 % [facility] Base excess, POC 1.9 mmol/L [facility] Hct, POC 30.0(L) 41.4 - 51.6 % [facility] Total Hb, POC 9.9(L) 13.8 - 17.2 g/dL [facility] Blood 01/20/2024 4:23 PM SHAPE CARVER 01/20/2024 4:23 PM SHAPE CARVER us Larry Travis MD LAB POCT ORDERABLES - DEVICE Final Result [facility] One [facility] Department [place] [address] * Transfuse RBC (01/20/2024 4:00 PM SHAPE CARVER) Blood Roscoe Sandhu MD BLOOD TRANSFUSION ORDERABLES F inal Result Performing Organization Address City/[facility]/ZIP Co de Phone Number [facility] [place] [address] * (ABNORMAL) POC Blood Gas and Chemistries, Arterial - (01/20/2024 3:09 PM SHAPE CARVER) pH, Art POC 7.42 7.35 - 7.45 pCO2, Art POC 47(H) 35 - 45 mmHg [facility] pO2, Art POC 77(L) 83 - 108 mmHg [facility] Na, POC 135 135 - 145 mmol/L [facility] K POC 5.2(H) 3.3 - 4.9 mmol/L [facility] Comment: Interpretive Data Not all point of care methods assess for hemolysis. Confirm with instrument and retest K+ if not consistent with clinical signs and symptoms. Current Interpretive Data was last revised on 2023. Ionized Ca, POC 4.79 4.50 - 5.10 mg/dL [facility] Glucose, POC 134 70 - 199 mg/dL [facility] Lactate, POC 1.5 0.7 - 2.2 mmol/L [facility] SO2 (elvia) arterial 98(H) 90 - 95 % [facility] Base excess, POC 5.3 mmol/L [facility] Hct, POC 29.0(L) 41.4 - 51.6 % [facility] Total Hb, POC 9.8(L) 13.8 - 17.2 g/dL [facility] Blood 01/20/2024 3:09 PM SHAPE CARVER 01/20/2024 3:09 PM SHAPE CARVER us Larry Travis MD LAB POCT ORDERABLES - DEVICE Final Result Performing Organization Address City/[facility]/ZIP Co de Phone Number [facility] [place] [address] * POCT glucose (01/20/2024 2:41 PM SHAPE CARVER) Glucose, POC 108 70 - 199 mg/dL Blood 01/20/2024 2:41 PM SHAPE CARVER 01/20/2024 2:41 PM SHAPE CARVER Larry Travis MD LAB POCT ORDERABLES - DEVICE Final Result [facility] Yen [facility] Department [place] [address] * Central Venous Line (01/20/2024 2:37 PM SHAPE CARVER) Narrative Elizabeth Castellano MD - 01/20/2024 2:37 PM SHAPE CARVER Elizabeth Castellano MD 01/20/2024 2:38 PM Central [...] Re sult * Airway (01/20/2024 1:37 PM SHAPE CARVER) Narrative Elizabeth Castellano MD - 01/20/2024 1:37 PM SHAPE CARVER Elizabeth Castellano MD 01/20/2024 1:37 PM Airway [...] sult * POCT glucose (01/20/2024 11:12 AM SHAPE CARVER) Glucose, POC 132 70 - 199 mg/dL Blood 01/20/2024 11:1 2 AM SHAPE CARVER 01/20/2024 11:12 AM SHAPE CARVER Larry Travis MD LAB POCT ORDERABLES - DEVICE Final Result [facility] One [facility] [place] [address] * HLA Donor Specific Antibody Report (01/20/2024 7:31 AM SHAPE CARVER) us Provider Scanning LAB BLOOD ORDERABLES Final Res ult * (ABNORMAL) eGFR (01/20/2024 12:08 AM SHAPE CARVER) eGFR 6(L) >=60 mL/min/1. 73 m2 Comment: [...] reviewed 2020. Blood 01/20/2024 12:0 8 AM SHAPE CARVER 01/20/2024 12:43 AM SHAPE CARVER Larry Travis MD LAB BLOOD ORDERABLE S Final Result [facility] One [facility] Department [place] [address] * (ABNORMAL) Basic metabolic panel (01/20/2024 12:08 AM SHAPE CARVER) Sodium 140 135 - 145 mmol/L Potassium, pl 4.8 3.3 - 4.9 mmol/L [facility] Chloride 95(L) 97 - 110 mmol/L [facility] CO2 30 22 - 32 mmol/L [facility] Anion gap 15 2 - 15 mmol/L [facility] BUN 55(H) 6 - 25 mg/dL [facility] Creatinine 9.05(H) 0.80 - 1.30 mg/dL [facility] Glucose 129 70 - 199 mg/dL [facility] Comment: Interpretive Data Fasting glucose >/= [...] 2022. Calcium 9.7 8.5 - 10.3 mg/dL [facility] Blood 01/20/2024 12:0 8 AM SHAPE CARVER 01/20/2024 12:43 AM SHAPE CARVER us Larry Travis MD LAB BLOOD ORDERABLE S Final Result [facility] One [facility] Department [place] [address] * XR Ankle Right 3 or More Views (01/19/2024 12:37 PM SHAPE CARVER) Anatomical Region Laterality Modality Lower Extremities, Ankle Right Compute d Radiography 01/19/2024 3:28 PM SHAPE CARVER Impressions 01/19/2024 4:08 PM SHAPE CARVER 1. Right leg subcutaneous edema with chronic venous stasis and medial ankle ulcer but no radiographic evidence of osteomyelitis. Dictated by: Liliane Ceja MD, MPH The radiology attending physician has personally reviewed this study, and had reviewed and/or edited this written report and agrees with it. Electronically signed by: Roscoe Tavarez M.D. Narrative 01/19/2024 4:08 PM SHAPE CARVER EXAMINATION: XR TIBIA FIBULA RIGHT2 VIEWS, XR [...] Fibula Right 2 Views (01/19/2024 12:37 PM SHAPE CARVER) Anatomical Region Laterality Modality Lower Extremities, Lower Leg Right Com puted Radiography 01/19/2024 3:28 PM SHAPE CARVER Impressions 01/19/2024 4:08 PM SHAPE CARVER 1. Right leg subcutaneous edema with chronic venous stasis and medial ankle ulcer but no radiographic evidence of osteomyelitis. Dictated by: Liliane Ceja MD, MPH The radiology attending physician has personally reviewed this study, and had reviewed and/or edited this written report and agrees with it. Electronically signed by: Roscoe Tavarez M.D. Narrative 01/19/2024 4:08 PM SHAPE CARVER EXAMINATION: XR TIBIA FIBULA RIGHT2 VIEWS, XR [...] culture Urine, clean voided (01/19/2024 8:50 AM SHAPE CARVER) Report Final Report: Less than 100,000 colonies/mL (clinically insignificant growth based on current clinical standards) Organism (CLINICALLY INSIGNIFICANT GROWTH [facility] Urine, clean voided 01/19/2024 8:50 AM SHAPE CARVER 01/19/2024 9:48 AM SHAPE CARVER Narrative [facility] - 01/20/2024 4:21 PM SHAPE CARVER Indications for Culture:->Other (specify) Other Indication:->pre-op Testing performed by [facility] ([phone]) Rosalie Velásquez NP LAB MICROBIOLOGY - GENERAL ORDERABLES Final Result [facility] One [facility] Department [place] [address] * Prepare RBC: 2 Units (01/19/2024 6:31 AM SHAPE CARVER) Product code [id number] Unit Number [id number] [facility] Product Blood Type ONEG [facility] Dispense Status PRESUMED TRANSFUSED [facility] Product code [id number] [facility] Unit Number [id number] [facility] Product Blood Type ONEG [facility] Dispense Status PRESUMED TRANSFUSED [facility] Blood 01/19/2024 6:31 AM SHAPE CARVER 01/19/2024 6:30 AM SHAPE CARVER Narrative [facility] - 01/23/2024 12:55 AM SHAPE CARVER Specify Procedure:->Kidney Transplant Are special requirements needed? (All products are leukoreduced and CMV- safe)- >No Date required:-[id number] LRRBC # of [id number] Reasons:-Hold for procedure (specify procedure)} Larry Travis MD BLOOD BANK PRODUCT ORDERABLES Final Result Performing Organization Address [facility] Co de Phone Number [facility]DA [facility] One [facility] [place] [address] * HLA Crossmatch Report (01/18/2024 11:43 PM SHAPE CARVER) us Rosalie Velásquez NP LAB BLOOD ORDERABLES Final Result * HLA Crossmatch, ALLO (01/18/2024 11:43 PM SHAPE CARVER) Blood 01/18/2024 11:4 3 PM SHAPE CARVER 01/20/2024 9:03 AM SHAPE CARVER Narrative [facility] - 01/20/2024 9:03 AM SHAPE CARVER Rosalie Velásquez NP LAB BLOOD ORDERABLES Final Result Performing Organization Address [facility] Co de Phone Number [facility] * HLA Antibody Screen by PRA or SAB per Schedule (Class I and Class II) (01/18/2024 11:43 PM SHAPE CARVER) Blood 01/18/2024 11:4 3 PM SHAPE CARVER Narrative [facility] - SHAPE CARVER Sample received in lab. Single Antigen Antibody Screen ordered. Rosalie Velásquez NP LAB BLOOD ORDERABLES Final Result Performing Organization Address [facility] Co de Phone Number [facility] * HLA Antibody Screen - SAB (Class I and Class II) (01/18/2024 11:43 PM SHAPE CARVER) Class I Treatment EDTA [facility] Class I Dilution 1:1 [facility] Class I Tested Date 01/19/2024 [facility] Class I Result Negative [facility] Class I CPRA 0 [facility] Class II Treatment EDTA [facility] Class II Dilution 1:1 [facility] Class II Tested Date 01/19/2024 [facility] Class II Result Negative [facility] Class II CPRA 0 [facility] Class II Low Risk DR53; DQ2 [facility] 01/18/2024 11:4 3 PM SHAPE CARVER 01/20/2024 7:24 AM SHAPE CARVER Narrative [facility] - 01/20/2024 7:24 AM SHAPE CARVER Single-antigen HLA antibody screen is performed on serum samples using a method developed and validated by the [facility] HLA laboratory based on an FDA-approved IVD kit ([employer]andre [employer] Single-Antigen, [employer], [place], [place]). All patient serum samples are pretreated with EDTA before the screen to prevent complement interference. Additional serum treatments, such as adsorption and DTT treatment, may be performed as indicated. Interpretive comments: Low risk: MFI [id number]. Moderate risk: MFI 3734-2738. Increased risk: MFI >/= 5000. The presence [...] antigens to avoid. Testing performed at the [facility], [address] [place] [address], 5th floor, [place], [address]. CLIA # [id number]. Magalis Bean, Ph.D., Head Char Filter Tank Tender, HLA Laboratory José Miguel Yun M.D., Ph.D., Power Cleaner Operator, [facility] Nessa Marley, Ph.D., ROSA Power Cleaner Operator, [facility] Current methodology and interpretive comments last revised on 03/27/2022. Rosalie Velásquez NP LAB BLOOD ORDERABLES Final Result [facility] * X-ray chest 1 view (01/18/2024 11:41 PM SHAPE CARVER) Anatomical Region Laterality Modality Body, Chest N/A Digital Radiogra phy 01/19/2024 4:05 AM SHAPE CARVER Impressions 01/19/2024 4:05 AM SHAPE CARVER Comparison is made to prior study of [...] Evan Boothe M.D. Narrative 01/19/2024 4:05 AM SHAPE CARVER EXAMINATION: 1 view chest radiograph Procedure Note [...] for HLA Antibody Screen (01/18/2024 10:50 PM SHAPE CARVER) HLA Antibody Screen by PRA Received Blood 01/18/2024 10:5 0 PM SHAPE CARVER 01/19/2024 9:57 AM SHAPE CARVER Rosalie Velásquez ENVIRONMENTAL SCIENCE PROFESSOR LAB BLOOD ORDERABLES Final Result Performing Organization Address City/[facility] Co de Phone Number LINDA [facility] Department [place] [address] * (ABNORMAL) eGFR (01/18/2024 10:50 PM SHAPE CARVER) Pathologist [facility] eGFR 9(L) >=60 mL/min/1. 73 m2 Comment: [...] reviewed 2020. Blood 01/18/2024 10:5 0 PM SHAPE CARVER 01/18/2024 11:14 PM SHAPE CARVER us Rosalie Velásquez ENVIRONMENTAL SCIENCE PROFESSOR LAB BLOOD ORDERABLES Final Result Performing Organization Address City/[facility]/ZIP Co de Phone Number [facility] Department [place] [address] * Differential, auto (01/18/2024 10:50 PM SHAPE CARVER) Pathologist [facility] Neutrophil abs 5.4 1.5 - 6.5 K/cumm Imm gran abs 0.0 0.0 - 0.1 K/cumm [facility] Lymphocyte abs 1.2 0.8 - 3.3 K/cumm [facility] Monocyte abs 0.6 0.2 - 0.8 K/cumm [facility] Eosinophil abs 0.2 0.0 - 0.5 K/cumm [facility] Basophil abs 0.0 0.0 - 0.1 K/cumm [facility] Neutrophil pct 73.1 % [facility] Comment: Interpretive Data Percent cell count reference ranges are not reported, since discordance with absolute values may lead to misinterpretation of CBC data. Current Interpretive Data was last revised on 2017. Imm gran pct 0.4 % [facility] Comment: Interpretive Data Percent cell count reference ranges are not reported, since discordance with absolute values may lead to misinterpretation of CBC data. Current Interpretive Data was last revised on 2017. Lymphocyte pct 15.7 % [facility] Comment: Interpretive Data Percent cell count reference ranges are not reported, since discordance with absolute values may lead to misinterpretation of CBC data. Current Interpretive Data was last revised on 2017. Monocyte pct 7.4 % [facility] Comment: Interpretive Data Percent cell count reference ranges are not reported, since discordance with absolute values may lead to misinterpretation of CBC data. Current Interpretive Data was last revised on 2017. Eosinophil pct 3.0 % [facility] Comment: Interpretive Data Percent cell count reference ranges are not reported, since discordance with absolute values may lead to misinterpretation of CBC data. Current Interpretive Data was last revised on 2017. Basophil pct 0.4 % [facility] Comment: Interpretive Data Percent cell count reference ranges are not reported, since discordance with absolute values may lead to misinterpretation of CBC data. Current Interpretive Data was last revised on 2017. Blood 01/18/2024 10:5 0 PM SHAPE CARVER 01/18/2024 11:15 PM SHAPE CARVER us Rosalie Velásquez NP LAB BLOOD ORDERABLES Final Result [facility] One [facility] Department [place] [address] * (ABNORMAL) Iron profile w/ IBC (01/18/2024 10:50 PM SHAPE CARVER) [facility] Iron 52 50 - 150 mcg/dL TIBC 162(L) 250 - 400 mcg/dL [facility] Transferrin saturation 32 20 - 50 % [facility] Blood 01/18/2024 10:5 0 PM SHAPE CARVER 01/18/2024 11:14 PM SHAPE CARVER Rosalie Velásquez NP LAB BLOOD ORDERABLES Final Result Performing Organization Address [facility] de Phone Number [facility] [place] [address] * HIV 1/2 Antibody plus p24 Antigen Blood (01/18/2024 10:50 PM SHAPE CARVER) [facility] HIV 1/2 ab + p24 ag Nonreactive Nonreactive Comment:Nonreactive for HIV- 1 antigen and HIV-1/HIV-2 antibodies. No laboratory evidence of HIV infection. If acute HIV infection is suspected, consider testing for HIV-1 RNA. Current interpretive data was last revised on 21. Blood 01/18/2024 10:5 0 PM SHAPE CARVER 01/18/2024 11:15 PM SHAPE CARVER Rosalie Velásquez NP LAB MICROBIOLOGY - GENERAL ORDERABLES Final Result Performing Organization Address [facility] de Phone Number [facility] Department [place] [address] * (ABNORMAL) CBC with auto differential (01/18/2024 10:50 PM SHAPE CARVER) [facility] WBC 7.4 3.8 - 9.9 K/cumm Hgb 10.1(L) 13.0 - 17.5 g/dL [facility] Hct 30.4(L) 38.9 - 50.3 % [facility] Plt 155 150 - 400 K/cumm [facility] MPV 9.5 9.1 - 12.3 fL [facility] RBC 3.05(L) 4.30 - 5.80 M/cumm [facility] MCV 99.7(H) 81.3 - 96.4 fL [facility] MCH 33.1 27.1 - 33.3 pg [facility] MCHC 33.2 32.3 - 35.7 g/dL [facility] RDW CV 14.4 11.1 - 14.9 % [facility] RDW SD 51.3(H) 35.7 - 48.1 fL [facility] NRBC abs 0.00 0.00 - 0.01 K/cumm [facility] Blood 01/18/2024 10:5 0 PM SHAPE CARVER 01/18/2024 11:15 PM SHAPE CARVER Rosalie Velásquez NP LAB BLOOD ORDERABLES Final Result Performing Organization Address City/[facility] Co de Phone Number [facility] [place] [address] * Hepatitis C antibody Blood (01/18/2024 10:50 PM SHAPE CARVER) Pathologist [facility] Hep C Ab Nonreactive Nonreactive Comment:Antibodies to HCV no t detected. Does NOT exclude the possibility of recent exposure to HCV. Current interpretive data was last revised on 21 Blood 01/18/2024 10:5 0 PM SHAPE CARVER 01/18/2024 11:14 PM SHAPE CARVER Rosalie Velásquez NP LAB MICROBIOLOGY - GENERAL ORDERABLES Final Result [facility] [place] [address] * Hepatitis B core antibody, total Blood (01/18/2024 10:50 PM SHAPE CARVER) Pathologist [facility] Hep B core IgG/IgM Nonreactive Nonreactive Blood 01/18/2024 10:5 0 PM SHAPE CARVER 01/18/2024 11:14 PM SHAPE CARVER Rosalie Velásquez NP LAB MICROBIOLOGY - GENERAL ORDERABLES Final Result Performing Organization Address [facility] Co de Phone Number [facility] [place] [address] * Hepatitis C (HCV) RNA PCR, quantitative Blood (01/18/2024 10:50 PM SHAPE CARVER) [facility] HCV RNA result Not Detected [facility] Comment: The quantifiable range of this assay is 15 IU/mL to 100,000,000 IU/mL (1.18 log IU/mL to 8.00 log IU/mL). Testing was performed by the [facility]AL[facility] 6800 HCV Test ([employer] Testing performed at [facility] Current Interpretive Data was last revised on 2020 Blood 01/18/2024 10:5 0 PM SHAPE CARVER 01/18/2024 11:50 PM SHAPE CARVER Rosalie Velásquez NP LAB MICROBIOLOGY - GENERAL ORDERABLES Final Result Performing Organization Address [facility] [place] [address] [facility] * Hepatitis B surface antibody (immune status) Blood (01/18/2024 10:50 PM SHAPE CARVER) [facility] HBsAb (immune status) Reactive Comment:This result is consi stent with immunity to Hepatitis B Virus when used in the setting of routine screening. Current interpretive data was last revised on 21 HBsAb (immune status) index 1,828.0 mIUnits/m L [facility] Blood 01/18/2024 10:5 0 PM SHAPE CARVER 01/18/2024 11:14 PM SHAPE CARVER Rosalie Velásquez NP LAB MICROBIOLOGY - GENERAL ORDERABLES Final Result Performing Organization Address City/[facility] Co de Phone Number [facility] [place] [address] * Hepatitis B Surface Antigen Blood (01/18/2024 10:50 PM SHAPE CARVER) HepBsAg Nonreactive Nonreactive Blood 01/18/2024 10:5 0 PM SHAPE CARVER 01/18/2024 11:14 PM SHAPE CARVER Rosalie Velásquez ENVIRONMENTAL SCIENCE PROFESSOR LAB MICROBIOLOGY - GENERAL ORDERABLES Final Result Performing Organization Address [facility] Co de Phone Number [facility] [place] [address] * aPTT (01/18/2024 10:50 PM SHAPE CARVER) Pathologist [facility] aPTT 31 28 - 38 sec Comment: Interpretive Data Heparin therapeutic range: 66.0 - 100.0 seconds. Range based on correlation with therapeutic heparin activity range of 0.3 - 0.7 Units/mL. Current interpretive data was last revised on 2022. Blood 01/18/2024 10:5 0 PM SHAPE CARVER 01/18/2024 11:17 PM SHAPE CARVER Rosalie Velásquez ENVIRONMENTAL SCIENCE PROFESSOR LAB BLOOD ORDERABLES Final Result Performing Organization Address [facility] de Phone Number [facility] [place] [address] * Protime-INR (01/18/2024 10:50 PM SHAPE CARVER) Pathologist [facility] PT 11.2 9.7 - 13.0 sec INR 1.04 0.90 - 1.20 [facility] Comment: Interpretive data Oral anticoagulant therapeutic ranges: Venous thromboembolism prophylaxis or treatment: 2.0-3.0 CARDIOLOGY Standard range: 2.0-3.0 High-intensity range: 2.5-3.5 Refer to indication-specific guidelines for appropriate target ranges for prosthetic heart valve replacement. Current interpretive data was last revised on 2019. Blood 01/18/2024 10:5 0 PM SHAPE CARVER 01/18/2024 11:17 PM SHAPE CARVER Rosalie Velásquez ENVIRONMENTAL SCIENCE PROFESSOR LAB BLOOD ORDERABLES Final Result Performing Organization Address [facility] [address] * Type and screen (01/18/2024 10:50 PM SHAPE CARVER) ABO Rh O Negative [place], indirect Negative [facility] Blood 01/18/2024 10:5 0 PM SHAPE CARVER 01/18/2024 11:13 PM SHAPE CARVER Narrative [facility] - 01/19/2024 12:08 AM SHAPE CARVER Has the patient had Daratumumab or Isatuximab in the past 6 months?->Unknown Rosalie Velásquez NP LAB BLOOD BANK TEST ORDERAB LES Final Result Performing Organization Address [facility] de Phone Number [facility] [place] [address] * Uric acid (01/18/2024 10:50 PM SHAPE CARVER) Uric acid 4.2 3.0 - 8.0 mg/dL Blood 01/18/2024 10:5 0 PM SHAPE CARVER 01/18/2024 11:14 PM SHAPE CARVER Rosalie Velásquez ENVIRONMENTAL SCIENCE PROFESSOR LAB BLOOD ORDERABLES Final Result Performing Organization Address [facility]/[place] [address] * (ABNORMAL) Phosphorus (01/18/2024 10:50 PM SHAPE CARVER) Phosphorus, pl 6.5(H) 2.3 - 4.5 mg/dL Blood 01/18/2024 10:5 0 PM SHAPE CARVER 01/18/2024 11:14 PM SHAPE CARVER Rosalie Velásquez ENVIRONMENTAL SCIENCE PROFESSOR LAB BLOOD ORDERABLES Final Result Performing Organization Address City/[facility]/[place] [address] * (ABNORMAL) Hemoglobin A1c (01/18/2024 10:50 PM SHAPE CARVER) [facility] Hgb A1C 6.3(H) 4.0 - 5.6 % Estimated Average Glucose 134 mg/dL [facility] Comment: The ADA recommends reporting an estimated Average Glucose (eAG) with all Hemoglobin A1c results using the equation derived from a study of 507 normal and diabetic adults. Minority populations were underrepresented and children were not included. (Diabetes Care 2020; 43(S1): S66-S76). The eAG is not equivalent to a fasting glucose. Blood 01/18/2024 10:5 0 PM SHAPE CARVER 01/18/2024 11:15 PM SHAPE CARVER Rosalie Velásquez ENVIRONMENTAL SCIENCE PROFESSOR LAB BLOOD ORDERABLES Final Result Performing Organization Address [facility] [place] [address] * (ABNORMAL) Ferritin (01/18/2024 10:50 PM SHAPE CARVER) [facility] Ferritin 1,237(H) 30 - 400 ng/mL Blood 01/18/2024 10:5 0 PM SHAPE CARVER 01/18/2024 11:14 PM SHAPE CARVER Rosalie Velásquez LAB BLOOD ORDERABLES Final Result Performing Organization Address [facility] de Phone Number [facility] [place] [address] * (ABNORMAL) Lipid panel (01/18/2024 10:50 PM SHAPE CARVER) [facility] Cholesterol 203(H) 30 - 199 mg/dL Comment: [...] revised on 2017. Triglycerides 208(H) <=149 mg/dL [facility] Comment: Interpretive Data Ages < or [...] revised on 2017. HDL 38(L) >=40 mg/dL [facility] Comment: Interpretive Data Ages < or = [...] 2017. LDL, calculated 128 <=129 mg/dL LINDA [facility] Comment: Interpretive Data Ages < or = [...] revised on 2023. Non-HDL Cholesterol 165 mg/dL [facility] Comment: Interpretive Data Ages < or [...] last revised on 2017. Chol/HDL ratio 5 [facility] Blood 01/18/2024 10:5 0 PM SHAPE CARVER 01/18/2024 11:14 PM SHAPE CARVER us Rosalie Velásquez NP LAB BLOOD ORDERABLES Final Result [facility] One [facility] Department [place] [address] * (ABNORMAL) Comprehensive metabolic panel (01/18/2024 10:50 PM SHAPE CARVER) Sodium 142 135 - 145 mmol/L Potassium, pl 4.4 3.3 - 4.9 mmol/L [facility] Chloride 96(L) 97 - 110 mmol/L [facility] CO2 31 22 - 32 mmol/L [facility] Anion gap 15 2 - 15 mmol/L [facility] BUN 40(H) 6 - 25 mg/dL [facility] Creatinine 6.70(H) 0.80 - 1.30 mg/dL [facility] Glucose 162 70 - 199 mg/dL [facility] Comment: Interpretive Data Fasting glucose >/= [...] 2022. Calcium 10.4(H) 8.5 - 10.3 mg/dL [facility] Bilirubin, total 0.3 0.1 - 1.2 mg/dL [facility] Protein, pl 7.1 6.5 - 8.5 g/dL [facility] Albumin 4.0 3.5 - 5.0 g/dL [facility] Alk phos 187(H) 40 - 130 Units/L [facility] ALT 18 7 - 55 Units/L [facility] AST 23 10 - 50 Units/L [facility] Blood 01/18/2024 10:5 0 PM SHAPE CARVER 01/18/2024 11:14 PM SHAPE CARVER us Rosalie Velásquez NP LAB BLOOD ORDERABLES Final Result [facility] One [facility] [place] [address] * CT Chest WO Contrast F/U Lung Screen Protocol (01/13/2024 3:25 PM SHAPE CARVER) Anatomical Region Laterality Modality Chest N/A Computed Tomogra phy 01/13/2024 5:28 PM SHAPE CARVER Impressions 01/13/2024 5:28 PM SHAPE CARVER 1. LungRADS Category 2 (benign) S. Recommend Low dose Screening CT of chest in 12 months. 2. 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 Electronically signed by: Evan Boothe M.D. Narrative 01/13/2024 5:28 PM SHAPE CARVER Examination: Low dose chest CT without intravenous [...] LAB BLOOD ORDERABL ES Final Result LINDA [facility] One [facility] [place] [address] from Last 3 Months or Most Recently Relevant to Health Maintenance
--- NOTE | 2024-04-19 14:02 | ECG_ITS ---
Test Date: 2024-04-19 14:22:21 Measurements Intervals [place] Rate: 66 P: 29 NH: 269 QRS: 86 QRSD: 144 T: 3 QT: 436 QTc: 459 Interpretive Statements SINUS RHYTHM WITH FIRST DEGREE AV BLOCK RIGHT BUNDLE BRANCH BLOCK BORDERLINE ST-T WAVE ABNORMALITY- INF/LAT LEADS ABNORMAL ECG No previous ECG available for comparison Electronically Signed On 04-19-2024 15:01:09 LEGAL ARCHIVIST by Aidan Yadav D.O.
--- NOTE | 2024-04-19 14:02 | ED_ITS ---
HPI - General Adult General Chief complaint: Shortness of Breath/Dyspnea <Grey Roger MD - Last Filed: 04/19/24 14:54> Stated complaint: short of breath <Grey Roger MD - Last Filed: 04/19/24 14:54> Time Seen by Provider: 04/19/24 14:01 <Grey Roger MD - Last Filed: 04/19/24 14:54> Source: patient <Grey Roger MD - Last Filed: 04/19/24 14:54> Mode of arrival: ambulatory <Grey Roger MD - Last Filed: 04/19/24 14:54> Limitations: no limitations <Grey Rgoer MD - Last Filed: 04/19/24 14:54> History of Present Illness HPI narrative: 63 YEARS OLD WHITE MALE CAME TO THE ED BY PRIVATE CAR FROM HOME COMPLAINING OF SHORTNESS OF BREATH FOR 1 MONTH. ASSOCIATED WITH PRODUCTIVE COUGH OF LARGE AMOUNT OF CLEAR SPUTUM, MAINLY ON EXERTION, GOT WORSE OVER THE LAST FEW DAYS, HISTORY OF DIABETES, HYPERTENSION, COPD, CORONARY STENTS, CABG, KIDNEY TRANSPLANT JANUARY 2024 AT [facility], PATIENT CURRENTLY ON ELIQUIS AND PLAVIX. <Grey Roger MD - Last Filed: 04/19/24 14:54> Related Data Home medications: Home Medications ?Medication ?Instructions ?Recorded ?Confirmed ?Last Taken ?Type pregabalin 150 mg capsule 150 mg PO QHS 12/12/21 04/19/24 06/23/23 History levothyroxine 100 mcg capsule 100 mcg PO DAILY 06/05/22 04/19/24 06/24/23 History acetaminophen 500 mg tablet 500 mg PO Q6H PRN pain 04/19/24 04/19/24 Unknown History (Tylenol Extra Strength) apixaban 5 mg tablet (Eliquis) 5 mg PO Q12H 04/19/24 04/19/24 Unknown History carvedilol 6.25 mg tablet 6.25 mg PO Q12H 04/19/24 04/19/24 Unknown History cyclobenzaprine 5 mg tablet 5 mg PO TID PRN MUSCLE RELAXER 04/19/24 04/19/24 Unknown History famotidine 20 mg tablet 20 mg PO DAILY 04/19/24 04/19/24 Unknown History fluticasone fur. 100 mcg-umeclid 1 inh inhalation DAILY 04/19/24 04/19/24 Unknown History 62.5 mcg-vilant 25 mcg inhalat.powder (Trelegy Ellipta) furosemide 80 mg tablet 80 mg PO QAM 04/19/24 04/19/24 Unknown History insulin glargine 100 unit/mL (3 20 unit subcut QAM 04/19/24 04/19/24 Unknown History mL) subcutaneous pen (Lantus Solostar U-100 Insulin) insulin lispro 100 unit/mL 1 sliding scale dose subcut 04/19/24 04/19/24 Unknown History subcutaneous pen (Humalog KwikPen USEASDIRECTD (U-100) Insulin) mycophenolate sodium 360 mg 360 mg PO BID 04/19/24 04/19/24 Unknown History tablet,delayed release (Myfortic) oxycodone 5 mg capsule 5 mg PO Q4H PRN pain 04/19/24 04/19/24 Unknown History polyethylene glycol 3350 17 17 g PO DAILY PRN constipation 04/19/24 04/19/24 Unknown History gram/dose oral powder (Miralax) rosuvastatin 20 mg tablet 20 mg PO DAILY 04/19/24 04/19/24 Unknown History sennosides 8.6 mg-docusate sodium 1 tab-cap PO BID PRN constipation 04/19/24 04/19/24 Unknown History 50 mg tablet (Senna with Docusate Sodium) sertraline 25 mg tablet See Rx Instructions .Route .COMPLEX 04/19/24 04/19/24 Unknown History sulfamethoxazole 800 1 tablet PO DAILY 04/19/24 04/19/24 Unknown History mg-trimethoprim 160 mg tablet (Bactrim DS) tacrolimus 1 mg tablet,extended See Rx Instructions PO QAM 04/19/24 04/19/24 Unknown History release 24 hr (Envarsus XR) valganciclovir 450 mg tablet 450 mg PO DAILY 04/19/24 04/19/24 Unknown History <Grey Roger MD - Last Filed: 04/19/24 14:54> Allergies/adverse reactions: Allergies Allergy/AdvReac Type Severity Reaction Status Date / Time No Known Allergies Allergy Verified 04/19/24 23:11 <Grey Roger MD - Last Filed: 04/19/24 14:54> Review of Systems 2 Review of Systems: All systems reviewed & are unremarkable except as noted in HPI and below <Grey Roger MD - Last Filed: 04/19/24 14:54> [facility] Past Medical History Medical History: Medical History Colon polyp Headache Nausea and vomiting Back pain Dyspnea Acute sinusitis Right upper quadrant abdominal pain Dupuytren contracture GERD (gastroesophageal reflux disease) Acute upper respiratory infection, unspecified Chest pain in adult Edema of both legs HTN (hypertension) (12/30/16) Hyperlipidemia (12/30/16) ORIANA on CPAP Shortness of breath (09/10/17) Obstructive sleep apnea (09/10/17) Type 2 diabetes mellitus (12/30/16) <Grey Roger MD - Last Filed: 04/19/24 14:54> Surgical History Surgical History: Surgical History History of heart surgery Open heart surgery History of shoulder surgery History of elbow surgery History of knee surgery History of surgery on arm <Grey Roger MD - Last Filed: 04/19/24 14:54> Family History Family History: Family History Father Diabetes mellitus Mother Diabetes mellitus Mother Family history of type 2 diabetes mellitus Father Family history of coronary artery disease Family history of type 2 diabetes mellitus Brother Family history of type 2 diabetes mellitus Cerebrovascular accident <Grey Roger MD - Last Filed: 04/19/24 14:54> Social History Social History: Social History Smoking packs per day: 2 Smoking cigarettes per day: 40.0 Years smoked: 30 Smoking pack-years: 60.00 Smoking status: Former smoker Tobacco type: cigarettes Second hand tobacco smoke exposure: Yes Smoking end date: 03/02/17 Alcohol intake: current Substance use: never Substance use type: does not use Do You Feel Safe in your Home?: Yes Lack of Transportation: No Lack of Food: Never True Current Housing: I Have Housing Concerned About Future Housing: No Difficulty Paying Gas/Electric Bills: No Difficulty Paying for Meds: No Currently Unemployed: No Education: Don't Know Difficulty w/ Childcare or Family Care: No Living arrangements: with family Additional living arrangements comments: LIVES W/ , [place] Gender identity (if verbalized by the patient): Male Spiritual care concerns: No <Grey Roger MD - Last Filed: 04/19/24 14:54> Exam 2 Narrative: GENERAL APPEARANCE: WELL-DEVELOPED, WELL-NOURISHED SKIN: MACULAR RASH HEAD: NORMOCEPHALIC, NONTRAUMATIC EYES: CLEAR CONJUNCTIVA ENT: OROPHARYNX NORMAL, EARS NORMAL, NOSE NORMAL NECK: SUPPLE, NONTENDER CHEST AND RESPIRATORY: AIRWAY PATENT, NO RESPIRATORY DISTRESS, NO ACCESSORY MUSCLE USE, DIMINUTION OF AIR ENTRY BILATERALLY, FEW WHEEZING AND RALES BILATERALLY MAINLY AT THE BASES HEART: TACHYCARDIA, IRREGULAR RHYTHM ABDOMEN: SOFT, NONTENDER, NO ORGANOMEGALY, QUIET BOWEL SOUNDS VASCULAR: NORMAL PERIPHERAL PULSES, NORMAL CAPILLARY REFILL. MUSCULOSKELETAL: NORMAL RANGE OF MOTION, NONTENDER BACK NEUROLOGIC: ALERT AND ORIENTED ?3, MARKING STITCHER IS NORMAL TESTED, NO GROSS MOTOR DEFICIT <Grey Roger MD - Last Filed: 04/19/24 14:54> Course Course Emergency Course: Assumed care at 1500 Mild leukocytosis, left sided crackles and CXR concerning for pneumonia. Given this he was given ceftriaxone and azithromycin as well as duoneb. Contacted [facility] for transfer. I spoik with Dr. Navarrete of the [facility] team that recommended transfer and to hold mycofenolate while awaiting transfer. <Marino Quick DO - Last Filed: 04/19/24 22:09> Assumed care at 1500 Mild leukocytosis, left sided crackles and CXR concerning for pneumonia. Given this he was given ceftriaxone and azithromycin as well as duoneb. Contacted [facility] for transfer. I spoik with Dr. Navarrete of the hospitall team that recommended transfer and to hold mycofenolate while awaiting transfer. is [facility] care of this patient at 7:00 a.m. on 04/20/2024. 63-year-old male with a history of hypertension, diabetes mellitus, dyslipidemia, CAD status post CABG / stents, CHF, atrial fibrillation on Eliquis,psoriasis, peripheral vascular disease with right popliteal stent, ESRD status post renal transplant in January of 2024 with delayed graft function with a baseline creatinine of 2.5 presented to the ED with acute hypoxic respiratory failure with an ABG of 742/35/ 54/87% on room air. the patient was noted to have bibasilar lung infiltrates with a proBNP of 2 838 and a white cell count of 12.5. The patient was afebrile on presentation. He he had a diagnosis of bibasilar pneumonia be started on Rocephin and Zithromax. Physical examination is significant for bibasilar rales 1/4 via the chest. The patient is also noted to have volume overload with bilateral leg swelling. The patient has been diuresed and being treated for bibasilar pneumonia with Rocephin and Zithromax. His acute hypoxic respiratory failure appears to be more likely to be CHF exacerbation. The patient received an additional 40 mg of IV Lasix in addition to 80 mg daily. -- <Jose M Vail MD - Last Filed: 04/20/24 21:25> Assumed care at 1500 Mild leukocytosis, left sided crackles and CXR concerning for pneumonia. Given this he was given ceftriaxone and azithromycin as well as duoneb. Contacted [facility] for transfer. I valeria with Dr. Navarrete of the hospitall team that recommended transfer and to hold mycofenolate while awaiting transfer. is [facility] care of this patient at 7:00 a.m. on 04/20/2024. 63-year-old male with a history of hypertension, diabetes mellitus, dyslipidemia, CAD status post CABG / stents, CHF, atrial fibrillation on Eliquis,psoriasis, peripheral vascular disease with right popliteal stent, ESRD status post renal transplant in January of 2024 with delayed graft function with a baseline creatinine of 2.5 presented to the ED with acute hypoxic respiratory failure with an ABG of 742/35/ 54/87% on room air. the patient was noted to have bibasilar lung infiltrates with a proBNP of 2 838 and a white cell count of 12.5. The patient was afebrile on presentation. He he had a diagnosis of bibasilar pneumonia be started on Rocephin and Zithromax. Physical examination is significant for bibasilar rales 1/4 via the chest. The patient is also noted to have volume overload with bilateral leg swelling. The patient has been diuresed and being treated for bibasilar pneumonia with Rocephin and Zithromax. His acute hypoxic respiratory failure appears to be more likely to be CHF exacerbation. The patient received an additional 40 mg of IV Lasix in addition to 80 mg daily. this is a 63-year-old male is and taking over care patient has been in the emergency department x2 days recent blood work shows white count has improved from 12 down to 9.0 creatinine has improved from 2.99 down to 2.82 patient vital signs currently stable blood pressure 138/68 with heart rate of 77 O2 sats at 93 to 94% on room air. CVS - irregularly irregular with a rate of 77 Lungs - clear with some improvement from previous stated lung findings Abdomen - soft nontender with positive bowel sounds. Spoke to patient and he feels comfortable going home and understands the need to follow-up with his transplant doctors as soon as possible.Zunilda Ibanez -- <Gamaliel Mauro MD - Last Filed: 04/21/24 09:29> Consultations Consultation #1: PATIENT WAS SIGNED OUT TO THE DR RICHEY AT 3:00 P.M./SHIFT CHANGE WAITING FOR LABS, IMAGING AND DISPOSITION <Grey Roger MD - Last Filed: 04/19/24 14:54> Date: 04/19/24 <Grey Roger MD - Last Filed: 04/19/24 14:54> Vital Signs Vital signs: Vital Signs Pulse Oximetry 81 L 04/19/24 13:55 Oxygen Delivery Room Air 04/19/24 13:55 Temperature 36.6 C 04/21/24 07:01 Pulse Rate 77 04/21/24 09:00 Respiratory Rate 21 H 04/21/24 09:00 Blood Pressure 138/68 04/21/24 08:01 Pulse Oximetry 92 04/21/24 08:45 Oxygen Delivery Room Air 04/21/24 07:01 Oxygen Flow Rate 2 04/20/24 12:01 <Grey Roger MD - Last Filed: 04/19/24 14:54> Vital Signs Pulse Oximetry 81 L 04/19/24 13:55 Oxygen Delivery Room Air 04/19/24 13:55 Temperature 36.6 C 04/21/24 07:01 Pulse Rate 77 04/21/24 09:00 Respiratory Rate 21 H 04/21/24 09:00 Blood Pressure 138/68 04/21/24 08:01 Pulse Oximetry 92 04/21/24 08:45 Oxygen Delivery Room Air 04/21/24 07:01 Oxygen Flow Rate 2 04/20/24 12:01 <Marino Quick DO - Last Filed: 04/19/24 22:09> Vital Signs Pulse Oximetry 81 L 04/19/24 13:55 Oxygen Delivery Room Air 04/19/24 13:55 Temperature 36.6 C 04/21/24 07:01 Pulse Rate 77 04/21/24 09:00 Respiratory Rate 21 H 04/21/24 09:00 Blood Pressure 138/68 04/21/24 08:01 Pulse Oximetry 92 04/21/24 08:45 Oxygen Delivery Room Air 04/21/24 07:01 Oxygen Flow Rate 2 04/20/24 12:01 <Jose M Vail MD - Last Filed: 04/20/24 21:25> Vital Signs Pulse Oximetry 81 L 04/19/24 13:55 Oxygen Delivery Room Air 04/19/24 13:55 Temperature 36.6 C 04/21/24 07:01 Pulse Rate 77 04/21/24 09:00 Respiratory Rate 21 H 04/21/24 09:00 Blood Pressure 138/68 04/21/24 08:01 Pulse Oximetry 92 04/21/24 08:45 Oxygen Delivery Room Air 04/21/24 07:01 Oxygen Flow Rate 2 04/20/24 12:01 <Gamaliel Mauro MD - Last Filed: 04/21/24 09:29> Medical Decision Making Differential Diagnosis Differential Diagnosis: COPD EXACERBATION, CONGESTIVE HEART FAILURE, PLEURAL EFFUSION, PNEUMONIA, RESPIRATORY VIRAL INFECTION, ELECTROLYTE IMBALANCE, ANEMIA, COAGULOPATHY < Grey Roger MD - Last Filed: 04/19/24 14:54> Vital Signs Vital Signs: Vital Signs Pulse Oximetry 81 L 04/19/24 13:55 Oxygen Delivery Room Air 04/19/24 13:55 Temperature 36.6 C 04/21/24 07:01 Pulse Rate 77 04/21/24 09:00 Respiratory Rate 21 H 04/21/24 09:00 Blood Pressure 138/68 04/21/24 08:01 Pulse Oximetry 92 04/21/24 08:45 Oxygen Delivery Room Air 04/21/24 07:01 Oxygen Flow Rate 2 04/20/24 12:01 <Grey Roger MD - Last Filed: 04/19/24 14:54> Vital Signs Pulse Oximetry 81 L 04/19/24 13:55 Oxygen Delivery Room Air 04/19/24 13:55 Temperature 36.6 C 04/21/24 07:01 Pulse Rate 77 04/21/24 09:00 Respiratory Rate 21 H 04/21/24 09:00 Blood Pressure 138/68 04/21/24 08:01 Pulse Oximetry 92 04/21/24 08:45 Oxygen Delivery Room Air 04/21/24 07:01 Oxygen Flow Rate 2 04/20/24 12:01 <Marino Quick DO - Last Filed: 04/19/24 22:09> Vital Signs Pulse Oximetry 81 L 04/19/24 13:55 Oxygen Delivery Room Air 04/19/24 13:55 Temperature 36.6 C 04/21/24 07:01 Pulse Rate 77 04/21/24 09:00 Respiratory Rate 21 H 04/21/24 09:00 Blood Pressure 138/68 04/21/24 08:01 Pulse Oximetry 92 04/21/24 08:45 Oxygen Delivery Room Air 04/21/24 07:01 Oxygen Flow Rate 2 04/20/24 12:01 <Jose M Vail MD - Last Filed: 04/20/24 21:25> Vital Signs Pulse Oximetry 81 L 04/19/24 13:55 Oxygen Delivery Room Air 04/19/24 13:55 Temperature 36.6 C 04/21/24 07:01 Pulse Rate 77 04/21/24 09:00 Respiratory Rate 21 H 04/21/24 09:00 Blood Pressure 138/68 04/21/24 08:01 Pulse Oximetry 92 04/21/24 08:45 Oxygen Delivery Room Air 04/21/24 07:01 Oxygen Flow Rate 2 04/20/24 12:01 <Gamaliel Mauro MD - Last Filed: 04/21/24 09:29> Lab Data Result diagrams: 04/21/24 08:53 04/19/24 14:48 <Grey Roger MD - Last Filed: 04/19/24 14:54> Labs: Lab Results 02/18/25 02/18/25 02/18/25 Range/Units 14:02 14:30 14:48 WBC 12.3 H (4.8-10.8) K/mm3 RBC 3.42 L (4.70-6.10) M/mm3 Hgb 10.3 L (12.4-15.3) g/dL Hct 32.2 L (37.0-46.0) % MCV 94.2 (78.0-102.0) fL MCH 30.1 (27.0-31.0) pg MCHC 32.0 (32-36) g/dL RDW 13.2 (11.6-14.4) % Plt Count 224 (150-420) K/mm3 MPV 9.0 (8.7-11.0) fl Immature Gran % (Auto) 3.6 H (0.0-0.0) % Neut % (Auto) 91.1 H (50.0-70.0) % Lymph % (Auto) 1.7 L (18.0-42.0) % [place] % (Auto) 3.2 (2.0-11.0) % Eos % (Auto) 0.1 L (1.0-6.0) % Baso % (Auto) 0.3 (0.0-1.0) % Lymph # (Auto) 0.21 L (1.10-4.50) K/mm3 [place] # (Auto) 0.40 (0.10-0.90) K/mm3 Eos # (Auto) 0.01 L (0.02-0.50) K/mm3 Baso # (Auto) 0.04 (0.00-0.10) K/mm3 Abs Immat Gran (auto) 0.45 H (0.00-0.00) K/mm3 Absolute Neuts (auto) 11.22 H (1.70-7.20) K/mm3 Absolute Nucleated RBC 0.00 (0.00-0.00) K/mm3 Nucleated RBC % 0.0 (0-0.0) % PT 12.8 H (9.50-12.1) Seconds INR 1.2 APTT 37.3 H (23.9-30.70) Sec Sodium 137 (136-145) mmol/L Potassium 5.0 (3.5-5.1) mmol/L Chloride 100 (98-108) mmol/L Carbon Dioxide 31 (21-32) mmol/L Anion Gap 6 (4-12) mmol/L BUN 37 H (7-18) mg/dL Creatinine 2.99 H (0.70-1.30) mg/dL Estim Creat Clear Calc 31 ml/min Estimated GFR 21 L (59 - ) Glucose 159 H (70-99) mg/dL POC Capillary Glucose (65-105) mg/dl Calculated Osmolality 295 (285-295) mOsm/kg Lactic Acid 1.0 (0.4-2.0) mmol/L Calcium 9.9 (8.5-10.1) mg/dL Total Bilirubin 0.4 (0.00-1.00) mg/dL AST < 10 L (15-37) U/L ALT 9 L (16-63) U/L Alkaline Phosphatase 160 H (46-116) U/L Troponin I 31.5 (0.00-60.4) ng/L C-Reactive Protein 5.5 H (0.0-0.9) mg/dL NT-Pro-B Natriuret Pep 2838 H (0-125) pg/mL Total Protein 6.5 (6.4-8.2) g/dL Albumin 3.0 L (3.4-5.0) g/dL Influenza A (RT-PCR) Negative (Negative) Influenza B (RT-PCR) Negative (Negative) RSV (RT-PCR) Negative (Negative) SARS-CoV-2 RNA (RT-PCR) Negative (Negative) 04/20/24 04/20/24 04/20/24 Range/Units 08:36 11:38 16:33 WBC (4.8-10.8) K/mm3 RBC (4.70-6.10) M/mm3 Hgb (12.4-15.3) g/dL Hct (37.0-46.0) % MCV (78.0-102.0) fL MCH (27.0-31.0) pg MCHC (32-36) g/dL RDW (11.6-14.4) % Plt Count (150-420) K/mm3 MPV (8.7-11.0) fl Immature Gran % (Auto) (0.0-0.0) % Neut % (Auto) (50.0-70.0) % Lymph % (Auto) (18.0-42.0) % [place] % (Auto) (2.0-11.0) % Eos % (Auto) (1.0-6.0) % Baso % (Auto) (0.0-1.0) % Lymph # (Auto) (1.10-4.50) K/mm3 [place] # (Auto) (0.10-0.90) K/mm3 Eos # (Auto) (0.02-0.50) K/mm3 Baso # (Auto) (0.00-0.10) K/mm3 Abs Immat Gran (auto) (0.00-0.00) K/mm3 Absolute Neuts (auto) (1.70-7.20) K/mm3 Absolute Nucleated RBC (0.00-0.00) K/mm3 Nucleated RBC % (0-0.0) % PT (9.50-12.1) Seconds INR APTT (23.9-30.70) Sec Sodium (136-145) mmol/L Potassium (3.5-5.1) mmol/L Chloride (98-108) mmol/L Carbon Dioxide (21-32) mmol/L Anion Gap (4-12) mmol/L BUN (7-18) mg/dL Creatinine (0.70-1.30) mg/dL Estim Creat Clear Calc ml/min Estimated GFR (59 - ) Glucose (70-99) mg/dL POC Capillary Glucose 110 H 218 H 140 H (65-105) mg/dl Calculated Osmolality (285-295) mOsm/kg Lactic Acid (0.4-2.0) mmol/L Calcium (8.5-10.1) mg/dL Total Bilirubin (0.00-1.00) mg/dL AST (15-37) U/L ALT (16-63) U/L Alkaline Phosphatase (46-116) U/L Troponin I (0.00-60.4) ng/L C-Reactive Protein (0.0-0.9) mg/dL NT-Pro-B Natriuret Pep (0-125) pg/mL Total Protein (6.4-8.2) g/dL Albumin (3.4-5.0) g/dL Influenza A (RT-PCR) (Negative) Influenza B (RT-PCR) (Negative) RSV (RT-PCR) (Negative) SARS-CoV-2 RNA (RT-PCR) (Negative) 04/20/24 04/21/24 04/21/24 Range/Units 21:09 07:47 08:53 WBC 9.4 (4.8-10.8) K/mm3 RBC 3.67 L (4.70-6.10) M/mm3 Hgb 11.2 L (12.4-15.3) g/dL Hct 35.2 L (37.0-46.0) % MCV 95.9 (78.0-102.0) fL MCH 30.5 (27.0-31.0) pg MCHC 31.8 L (32-36) g/dL RDW 13.6 (11.6-14.4) % Plt Count 290 (150-420) K/mm3 MPV 9.8 (8.7-11.0) fl Immature Gran % (Auto) 3.2 H (0.0-0.0) % Neut % (Auto) 87.5 H (50.0-70.0) % Lymph % (Auto) 3.5 L (18.0-42.0) % [place] % (Auto) 4.7 (2.0-11.0) % Eos % (Auto) 0.4 L (1.0-6.0) % Baso % (Auto) 0.7 (0.0-1.0) % Lymph # (Auto) 0.33 L (1.10-4.50) K/mm3 [place] # (Auto) 0.44 (0.10-0.90) K/mm3 Eos # (Auto) 0.04 (0.02-0.50) K/mm3 Baso # (Auto) 0.07 (0.00-0.10) K/mm3 Abs Immat Gran (auto) 0.30 H (0.00-0.00) K/mm3 Absolute Neuts (auto) 8.25 H (1.70-7.20) K/mm3 Absolute Nucleated RBC 0.00 (0.00-0.00) K/mm3 Nucleated RBC % 0.0 (0-0.0) % PT (9.50-12.1) Seconds INR APTT (23.9-30.70) Sec Sodium Pending (136-145) mmol/L Potassium Pending (3.5-5.1) mmol/L Chloride Pending (98-108) mmol/L Carbon Dioxide Pending (21-32) mmol/L Anion Gap Pending (4-12) mmol/L BUN Pending (7-18) mg/dL Creatinine Pending (0.70-1.30) mg/dL Estim Creat Clear Calc Pending ml/min Estimated GFR Pending (59 - ) Glucose Pending (70-99) mg/dL POC Capillary Glucose 158 H 125 H (65-105) mg/dl Calculated Osmolality Pending (285-295) mOsm/kg Lactic Acid Pending (0.4-2.0) mmol/L Calcium Pending (8.5-10.1) mg/dL Total Bilirubin Pending (0.00-1.00) mg/dL AST Pending (15-37) U/L ALT Pending (16-63) U/L Alkaline Phosphatase Pending (46-116) U/L Troponin I (0.00-60.4) ng/L C-Reactive Protein (0.0-0.9) mg/dL NT-Pro-B Natriuret Pep (0-125) pg/mL Total Protein Pending (6.4-8.2) g/dL Albumin Pending (3.4-5.0) g/dL Influenza A (RT-PCR) (Negative) Influenza B (RT-PCR) (Negative) RSV (RT-PCR) (Negative) SARS-CoV-2 RNA (RT-PCR) (Negative) <Grey Roger MD - Last Filed: 04/19/24 14:54> Lab Results 04/19/24 04/19/24 04/19/24 Range/Units 14:02 14:30 14:48 WBC 12.3 H (4.8-10.8) K/mm3 RBC 3.42 L (4.70-6.10) M/mm3 Hgb 10.3 L (12.4-15.3) g/dL Hct 32.2 L (37.0-46.0) % MCV 94.2 (78.0-102.0) fL MCH 30.1 (27.0-31.0) pg MCHC 32.0 (32-36) g/dL RDW 13.2 (11.6-14.4) % Plt Count 224 (150-420) K/mm3 MPV 9.0 (8.7-11.0) fl Immature Gran % (Auto) 3.6 H (0.0-0.0) % Neut % (Auto) 91.1 H (50.0-70.0) % Lymph % (Auto) 1.7 L (18.0-42.0) % [place] % (Auto) 3.2 (2.0-11.0) % Eos % (Auto) 0.1 L (1.0-6.0) % Baso % (Auto) 0.3 (0.0-1.0) % Lymph # (Auto) 0.21 L (1.10-4.50) K/mm3 [place] # (Auto) 0.40 (0.10-0.90) K/mm3 Eos # (Auto) 0.01 L (0.02-0.50) K/mm3 Baso # (Auto) 0.04 (0.00-0.10) K/mm3 Abs Immat Gran (auto) 0.45 H (0.00-0.00) K/mm3 Absolute Neuts (auto) 11.22 H (1.70-7.20) K/mm3 Absolute Nucleated RBC 0.00 (0.00-0.00) K/mm3 Nucleated RBC % 0.0 (0-0.0) % PT 12.8 H (9.50-12.1) Seconds INR 1.2 APTT 37.3 H (23.9-30.70) Sec Sodium 137 (136-145) mmol/L Potassium 5.0 (3.5-5.1) mmol/L Chloride 100 (98-108) mmol/L Carbon Dioxide 31 (21-32) mmol/L Anion Gap 6 (4-12) mmol/L BUN 37 H (7-18) mg/dL Creatinine 2.99 H (0.70-1.30) mg/dL Estim Creat Clear Calc 31 ml/min Estimated GFR 21 L (59 - ) Glucose 159 H (70-99) mg/dL POC Capillary Glucose (65-105) mg/dl Calculated Osmolality 295 (285-295) mOsm/kg Lactic Acid 1.0 (0.4-2.0) mmol/L Calcium 9.9 (8.5-10.1) mg/dL Total Bilirubin 0.4 (0.00-1.00) mg/dL AST < 10 L (15-37) U/L ALT 9 L (16-63) U/L Alkaline Phosphatase 160 H (46-116) U/L Troponin I 31.5 (0.00-60.4) ng/L C-Reactive Protein 5.5 H (0.0-0.9) mg/dL NT-Pro-B Natriuret Pep 2838 H (0-125) pg/mL Total Protein 6.5 (6.4-8.2) g/dL Albumin 3.0 L (3.4-5.0) g/dL Influenza A (RT-PCR) Negative (Negative) Influenza B (RT-PCR) Negative (Negative) RSV (RT-PCR) Negative (Negative) SARS-CoV-2 RNA (RT-PCR) Negative (Negative) 04/20/24 04/20/24 04/20/24 Range/Units 08:36 11:38 16:33 WBC (4.8-10.8) K/mm3 RBC (4.70-6.10) M/mm3 Hgb (12.4-15.3) g/dL Hct (37.0-46.0) % MCV (78.0-102.0) fL MCH (27.0-31.0) pg MCHC (32-36) g/dL RDW (11.6-14.4) % Plt Count (150-420) K/mm3 MPV (8.7-11.0) fl Immature Gran % (Auto) (0.0-0.0) % Neut % (Auto) (50.0-70.0) % Lymph % (Auto) (18.0-42.0) % [place] % (Auto) (2.0-11.0) % Eos % (Auto) (1.0-6.0) % Baso % (Auto) (0.0-1.0) % Lymph # (Auto) (1.10-4.50) K/mm3 [place] # (Auto) (0.10-0.90) K/mm3 Eos # (Auto) (0.02-0.50) K/mm3 Baso # (Auto) (0.00-0.10) K/mm3 Abs Immat Gran (auto) (0.00-0.00) K/mm3 Absolute Neuts (auto) (1.70-7.20) K/mm3 Absolute Nucleated RBC (0.00-0.00) K/mm3 Nucleated RBC % (0-0.0) % PT (9.50-12.1) Seconds INR APTT (23.9-30.70) Sec Sodium (136-145) mmol/L Potassium (3.5-5.1) mmol/L Chloride (98-108) mmol/L Carbon Dioxide (21-32) mmol/L Anion Gap (4-12) mmol/L BUN (7-18) mg/dL Creatinine (0.70-1.30) mg/dL Estim Creat Clear Calc ml/min Estimated GFR (59 - ) Glucose (70-99) mg/dL POC Capillary Glucose 110 H 218 H 140 H (65-105) mg/dl Calculated Osmolality (285-295) mOsm/kg Lactic Acid (0.4-2.0) mmol/L Calcium (8.5-10.1) mg/dL Total Bilirubin (0.00-1.00) mg/dL AST (15-37) U/L ALT (16-63) U/L Alkaline Phosphatase (46-116) U/L Troponin I (0.00-60.4) ng/L C-Reactive Protein (0.0-0.9) mg/dL NT-Pro-B Natriuret Pep (0-125) pg/mL Total Protein (6.4-8.2) g/dL Albumin (3.4-5.0) g/dL Influenza A (RT-PCR) (Negative) Influenza B (RT-PCR) (Negative) RSV (RT-PCR) (Negative) SARS-CoV-2 RNA (RT-PCR) (Negative) 04/20/24 04/21/24 04/21/24 Range/Units 21:09 07:47 08:53 WBC 9.4 (4.8-10.8) K/mm3 RBC 3.67 L (4.70-6.10) M/mm3 Hgb 11.2 L (12.4-15.3) g/dL Hct 35.2 L (37.0-46.0) % MCV 95.9 (78.0-102.0) fL MCH 30.5 (27.0-31.0) pg MCHC 31.8 L (32-36) g/dL RDW 13.6 (11.6-14.4) % Plt Count 290 (150-420) K/mm3 MPV 9.8 (8.7-11.0) fl Immature Gran % (Auto) 3.2 H (0.0-0.0) % Neut % (Auto) 87.5 H (50.0-70.0) % Lymph % (Auto) 3.5 L (18.0-42.0) % [place] % (Auto) 4.7 (2.0-11.0) % Eos % (Auto) 0.4 L (1.0-6.0) % Baso % (Auto) 0.7 (0.0-1.0) % Lymph # (Auto) 0.33 L (1.10-4.50) K/mm3 [place] # (Auto) 0.44 (0.10-0.90) K/mm3 Eos # (Auto) 0.04 (0.02-0.50) K/mm3 Baso # (Auto) 0.07 (0.00-0.10) K/mm3 Abs Immat Gran (auto) 0.30 H (0.00-0.00) K/mm3 Absolute Neuts (auto) 8.25 H (1.70-7.20) K/mm3 Absolute Nucleated RBC 0.00 (0.00-0.00) K/mm3 Nucleated RBC % 0.0 (0-0.0) % PT (9.50-12.1) Seconds INR APTT (23.9-30.70) Sec Sodium Pending (136-145) mmol/L Potassium Pending (3.5-5.1) mmol/L Chloride Pending (98-108) mmol/L Carbon Dioxide Pending (21-32) mmol/L Anion Gap Pending (4-12) mmol/L BUN Pending (7-18) mg/dL Creatinine Pending (0.70-1.30) mg/dL Estim Creat Clear Calc Pending ml/min Estimated GFR Pending (59 - ) Glucose Pending (70-99) mg/dL POC Capillary Glucose 158 H 125 H (65-105) mg/dl Calculated Osmolality Pending (285-295) mOsm/kg Lactic Acid Pending (0.4-2.0) mmol/L Calcium Pending (8.5-10.1) mg/dL Total Bilirubin Pending (0.00-1.00) mg/dL AST Pending (15-37) U/L ALT Pending (16-63) U/L Alkaline Phosphatase Pending (46-116) U/L Troponin I (0.00-60.4) ng/L C-Reactive Protein (0.0-0.9) mg/dL NT-Pro-B Natriuret Pep (0-125) pg/mL Total Protein Pending (6.4-8.2) g/dL Albumin Pending (3.4-5.0) g/dL Influenza A (RT-PCR) (Negative) Influenza B (RT-PCR) (Negative) RSV (RT-PCR) (Negative) SARS-CoV-2 RNA (RT-PCR) (Negative) <Marino Quick, DO - Last Filed: 04/19/24 22:09> Lab Results 04/19/24 04/19/24 04/19/24 Range/Units 14:02 14:30 14:48 WBC 12.3 H (4.8-10.8) K/mm3 RBC 3.42 L (4.70-6.10) M/mm3 Hgb 10.3 L (12.4-15.3) g/dL Hct 32.2 L (37.0-46.0) % MCV 94.2 (78.0-102.0) fL MCH 30.1 (27.0-31.0) pg MCHC 32.0 (32-36) g/dL RDW 13.2 (11.6-14.4) % Plt Count 224 (150-420) K/mm3 MPV 9.0 (8.7-11.0) fl Immature Gran % (Auto) 3.6 H (0.0-0.0) % Neut % (Auto) 91.1 H (50.0-70.0) % Lymph % (Auto) 1.7 L (18.0-42.0) % [place] % (Auto) 3.2 (2.0-11.0) % Eos % (Auto) 0.1 L (1.0-6.0) % Baso % (Auto) 0.3 (0.0-1.0) % Lymph # (Auto) 0.21 L (1.10-4.50) K/mm3 [place] # (Auto) 0.40 (0.10-0.90) K/mm3 Eos # (Auto) 0.01 L (0.02-0.50) K/mm3 Baso # (Auto) 0.04 (0.00-0.10) K/mm3 Abs Immat Gran (auto) 0.45 H (0.00-0.00) K/mm3 Absolute Neuts (auto) 11.22 H (1.70-7.20) K/mm3 Absolute Nucleated RBC 0.00 (0.00-0.00) K/mm3 Nucleated RBC % 0.0 (0-0.0) % PT 12.8 H (9.50-12.1) Seconds INR 1.2 APTT 37.3 H (23.9-30.70) Sec Sodium 137 (136-145) mmol/L Potassium 5.0 (3.5-5.1) mmol/L Chloride 100 (98-108) mmol/L Carbon Dioxide 31 (21-32) mmol/L Anion Gap 6 (4-12) mmol/L BUN 37 H (7-18) mg/dL Creatinine 2.99 H (0.70-1.30) mg/dL Estim Creat Clear Calc 31 ml/min Estimated GFR 21 L (59 - ) Glucose 159 H (70-99) mg/dL POC Capillary Glucose (65-105) mg/dl Calculated Osmolality 295 (285-295) mOsm/kg Lactic Acid 1.0 (0.4-2.0) mmol/L Calcium 9.9 (8.5-10.1) mg/dL Total Bilirubin 0.4 (0.00-1.00) mg/dL AST < 10 L (15-37) U/L ALT 9 L (16-63) U/L Alkaline Phosphatase 160 H (46-116) U/L Troponin I 31.5 (0.00-60.4) ng/L C-Reactive Protein 5.5 H (0.0-0.9) mg/dL NT-Pro-B Natriuret Pep 2838 H (0-125) pg/mL Total Protein 6.5 (6.4-8.2) g/dL Albumin 3.0 L (3.4-5.0) g/dL Influenza A (RT-PCR) Negative (Negative) Influenza B (RT-PCR) Negative (Negative) RSV (RT-PCR) Negative (Negative) SARS-CoV-2 RNA (RT-PCR) Negative (Negative) 04/20/24 04/20/24 04/20/24 Range/Units 08:36 11:38 16:33 WBC (4.8-10.8) K/mm3 RBC (4.70-6.10) M/mm3 Hgb (12.4-15.3) g/dL Hct (37.0-46.0) % MCV (78.0-102.0) fL MCH (27.0-31.0) pg MCHC (32-36) g/dL RDW (11.6-14.4) % Plt Count (150-420) K/mm3 MPV (8.7-11.0) fl Immature Gran % (Auto) (0.0-0.0) % Neut % (Auto) (50.0-70.0) % Lymph % (Auto) (18.0-42.0) % [place] % (Auto) (2.0-11.0) % Eos % (Auto) (1.0-6.0) % Baso % (Auto) (0.0-1.0) % Lymph # (Auto) (1.10-4.50) K/mm3 [place] # (Auto) (0.10-0.90) K/mm3 Eos # (Auto) (0.02-0.50) K/mm3 Baso # (Auto) (0.00-0.10) K/mm3 Abs Immat Gran (auto) (0.00-0.00) K/mm3 Absolute Neuts (auto) (1.70-7.20) K/mm3 Absolute Nucleated RBC (0.00-0.00) K/mm3 Nucleated RBC % (0-0.0) % PT (9.50-12.1) Seconds INR APTT (23.9-30.70) Sec Sodium (136-145) mmol/L Potassium (3.5-5.1) mmol/L Chloride (98-108) mmol/L Carbon Dioxide (21-32) mmol/L Anion Gap (4-12) mmol/L BUN (7-18) mg/dL Creatinine (0.70-1.30) mg/dL Estim Creat Clear Calc ml/min Estimated GFR (59 - ) Glucose (70-99) mg/dL POC Capillary Glucose 110 H 218 H 140 H (65-105) mg/dl Calculated Osmolality (285-295) mOsm/kg Lactic Acid (0.4-2.0) mmol/L Calcium (8.5-10.1) mg/dL Total Bilirubin (0.00-1.00) mg/dL AST (15-37) U/L ALT (16-63) U/L Alkaline Phosphatase (46-116) U/L Troponin I (0.00-60.4) ng/L C-Reactive Protein (0.0-0.9) mg/dL NT-Pro-B Natriuret Pep (0-125) pg/mL Total Protein (6.4-8.2) g/dL Albumin (3.4-5.0) g/dL Influenza A (RT-PCR) (Negative) Influenza B (RT-PCR) (Negative) RSV (RT-PCR) (Negative) SARS-CoV-2 RNA (RT-PCR) (Negative) 04/20/24 04/21/24 04/21/24 Range/Units 21:09 07:47 08:53 WBC 9.4 (4.8-10.8) K/mm3 RBC 3.67 L (4.70-6.10) M/mm3 Hgb 11.2 L (12.4-15.3) g/dL Hct 35.2 L (37.0-46.0) % MCV 95.9 (78.0-102.0) fL MCH 30.5 (27.0-31.0) pg MCHC 31.8 L (32-36) g/dL RDW 13.6 (11.6-14.4) % Plt Count 290 (150-420) K/mm3 MPV 9.8 (8.7-11.0) fl Immature Gran % (Auto) 3.2 H (0.0-0.0) % Neut % (Auto) 87.5 H (50.0-70.0) % Lymph % (Auto) 3.5 L (18.0-42.0) % [place] % (Auto) 4.7 (2.0-11.0) % Eos % (Auto) 0.4 L (1.0-6.0) % Baso % (Auto) 0.7 (0.0-1.0) % Lymph # (Auto) 0.33 L (1.10-4.50) K/mm3 [place] # (Auto) 0.44 (0.10-0.90) K/mm3 Eos # (Auto) 0.04 (0.02-0.50) K/mm3 Baso # (Auto) 0.07 (0.00-0.10) K/mm3 Abs Immat Gran (auto) 0.30 H (0.00-0.00) K/mm3 Absolute Neuts (auto) 8.25 H (1.70-7.20) K/mm3 Absolute Nucleated RBC 0.00 (0.00-0.00) K/mm3 Nucleated RBC % 0.0 (0-0.0) % PT (9.50-12.1) Seconds INR APTT (23.9-30.70) Sec Sodium Pending (136-145) mmol/L Potassium Pending (3.5-5.1) mmol/L Chloride Pending (98-108) mmol/L Carbon Dioxide Pending (21-32) mmol/L Anion Gap Pending (4-12) mmol/L BUN Pending (7-18) mg/dL Creatinine Pending (0.70-1.30) mg/dL Estim Creat Clear Calc Pending ml/min Estimated GFR Pending (59 - ) Glucose Pending (70-99) mg/dL POC Capillary Glucose 158 H 125 H (65-105) mg/dl Calculated Osmolality Pending (285-295) mOsm/kg Lactic Acid Pending (0.4-2.0) mmol/L Calcium Pending (8.5-10.1) mg/dL Total Bilirubin Pending (0.00-1.00) mg/dL AST Pending (15-37) U/L ALT Pending (16-63) U/L Alkaline Phosphatase Pending (46-116) U/L Troponin I (0.00-60.4) ng/L C-Reactive Protein (0.0-0.9) mg/dL NT-Pro-B Natriuret Pep (0-125) pg/mL Total Protein Pending (6.4-8.2) g/dL Albumin Pending (3.4-5.0) g/dL Influenza A (RT-PCR) (Negative) Influenza B (RT-PCR) (Negative) RSV (RT-PCR) (Negative) SARS-CoV-2 RNA (RT-PCR) (Negative) <Jose M Vail MD - Last Filed: 04/20/24 21:25> Lab Results 04/19/24 04/19/24 04/19/24 Range/Units 14:02 14:30 14:48 WBC 12.3 H (4.8-10.8) K/mm3 RBC 3.42 L (4.70-6.10) M/mm3 Hgb 10.3 L (12.4-15.3) g/dL Hct 32.2 L (37.0-46.0) % MCV 94.2 (78.0-102.0) fL MCH 30.1 (27.0-31.0) pg MCHC 32.0 (32-36) g/dL RDW 13.2 (11.6-14.4) % Plt Count 224 (150-420) K/mm3 MPV 9.0 (8.7-11.0) fl Immature Gran % (Auto) 3.6 H (0.0-0.0) % Neut % (Auto) 91.1 H (50.0-70.0) % Lymph % (Auto) 1.7 L (18.0-42.0) % [place] % (Auto) 3.2 (2.0-11.0) % Eos % (Auto) 0.1 L (1.0-6.0) % Baso % (Auto) 0.3 (0.0-1.0) % Lymph # (Auto) 0.21 L (1.10-4.50) K/mm3 [place] # (Auto) 0.40 (0.10-0.90) K/mm3 Eos # (Auto) 0.01 L (0.02-0.50) K/mm3 Baso # (Auto) 0.04 (0.00-0.10) K/mm3 Abs Immat Gran (auto) 0.45 H (0.00-0.00) K/mm3 Absolute Neuts (auto) 11.22 H (1.70-7.20) K/mm3 Absolute Nucleated RBC 0.00 (0.00-0.00) K/mm3 Nucleated RBC % 0.0 (0-0.0) % PT 12.8 H (9.50-12.1) Seconds INR 1.2 APTT 37.3 H (23.9-30.70) Sec Sodium 137 (136-145) mmol/L Potassium 5.0 (3.5-5.1) mmol/L Chloride 100 (98-108) mmol/L Carbon Dioxide 31 (21-32) mmol/L Anion Gap 6 (4-12) mmol/L BUN 37 H (7-18) mg/dL Creatinine 2.99 H (0.70-1.30) mg/dL Estim Creat Clear Calc 31 ml/min Estimated GFR 21 L (59 - ) Glucose 159 H (70-99) mg/dL POC Capillary Glucose (65-105) mg/dl Calculated Osmolality 295 (285-295) mOsm/kg Lactic Acid 1.0 (0.4-2.0) mmol/L Calcium 9.9 (8.5-10.1) mg/dL Total Bilirubin 0.4 (0.00-1.00) mg/dL AST < 10 L (15-37) U/L ALT 9 L (16-63) U/L Alkaline Phosphatase 160 H (46-116) U/L Troponin I 31.5 (0.00-60.4) ng/L C-Reactive Protein 5.5 H (0.0-0.9) mg/dL NT-Pro-B Natriuret Pep 2838 H (0-125) pg/mL Total Protein 6.5 (6.4-8.2) g/dL Albumin 3.0 L (3.4-5.0) g/dL Influenza A (RT-PCR) Negative (Negative) Influenza B (RT-PCR) Negative (Negative) RSV (RT-PCR) Negative (Negative) SARS-CoV-2 RNA (RT-PCR) Negative (Negative) 04/20/24 04/20/24 04/20/24 Range/Units 08:36 11:38 16:33 WBC (4.8-10.8) K/mm3 RBC (4.70-6.10) M/mm3 Hgb (12.4-15.3) g/dL Hct (37.0-46.0) % MCV (78.0-102.0) fL MCH (27.0-31.0) pg MCHC (32-36) g/dL RDW (11.6-14.4) % Plt Count (150-420) K/mm3 MPV (8.7-11.0) fl Immature Gran % (Auto) (0.0-0.0) % Neut % (Auto) (50.0-70.0) % Lymph % (Auto) (18.0-42.0) % [place] % (Auto) (2.0-11.0) % Eos % (Auto) (1.0-6.0) % Baso % (Auto) (0.0-1.0) % Lymph # (Auto) (1.10-4.50) K/mm3 [place] # (Auto) (0.10-0.90) K/mm3 Eos # (Auto) (0.02-0.50) K/mm3 Baso # (Auto) (0.00-0.10) K/mm3 Abs Immat Gran (auto) (0.00-0.00) K/mm3 Absolute Neuts (auto) (1.70-7.20) K/mm3 Absolute Nucleated RBC (0.00-0.00) K/mm3 Nucleated RBC % (0-0.0) % PT (9.50-12.1) Seconds INR APTT (23.9-30.70) Sec Sodium (136-145) mmol/L Potassium (3.5-5.1) mmol/L Chloride (98-108) mmol/L Carbon Dioxide (21-32) mmol/L Anion Gap (4-12) mmol/L BUN (7-18) mg/dL Creatinine (0.70-1.30) mg/dL Estim Creat Clear Calc ml/min Estimated GFR (59 - ) Glucose (70-99) mg/dL POC Capillary Glucose 110 H 218 H 140 H (65-105) mg/dl Calculated Osmolality (285-295) mOsm/kg Lactic Acid (0.4-2.0) mmol/L Calcium (8.5-10.1) mg/dL Total Bilirubin (0.00-1.00) mg/dL AST (15-37) U/L ALT (16-63) U/L Alkaline Phosphatase (46-116) U/L Troponin I (0.00-60.4) ng/L C-Reactive Protein (0.0-0.9) mg/dL NT-Pro-B Natriuret Pep (0-125) pg/mL Total Protein (6.4-8.2) g/dL Albumin (3.4-5.0) g/dL Influenza A (RT-PCR) (Negative) Influenza B (RT-PCR) (Negative) RSV (RT-PCR) (Negative) SARS-CoV-2 RNA (RT-PCR) (Negative) 04/20/24 04/21/24 04/21/24 Range/Units 21:09 07:47 08:53 WBC 9.4 (4.8-10.8) K/mm3 RBC 3.67 L (4.70-6.10) M/mm3 Hgb 11.2 L (12.4-15.3) g/dL Hct 35.2 L (37.0-46.0) % MCV 95.9 (78.0-102.0) fL MCH 30.5 (27.0-31.0) pg MCHC 31.8 L (32-36) g/dL RDW 13.6 (11.6-14.4) % Plt Count 290 (150-420) K/mm3 MPV 9.8 (8.7-11.0) fl Immature Gran % (Auto) 3.2 H (0.0-0.0) % Neut % (Auto) 87.5 H (50.0-70.0) % Lymph % (Auto) 3.5 L (18.0-42.0) % [place] % (Auto) 4.7 (2.0-11.0) % Eos % (Auto) 0.4 L (1.0-6.0) % Baso % (Auto) 0.7 (0.0-1.0) % Lymph # (Auto) 0.33 L (1.10-4.50) K/mm3 [place] # (Auto) 0.44 (0.10-0.90) K/mm3 Eos # (Auto) 0.04 (0.02-0.50) K/mm3 Baso # (Auto) 0.07 (0.00-0.10) K/mm3 Abs Immat Gran (auto) 0.30 H (0.00-0.00) K/mm3 Absolute Neuts (auto) 8.25 H (1.70-7.20) K/mm3 Absolute Nucleated RBC 0.00 (0.00-0.00) K/mm3 Nucleated RBC % 0.0 (0-0.0) % PT (9.50-12.1) Seconds INR APTT (23.9-30.70) Sec Sodium Pending (136-145) mmol/L Potassium Pending (3.5-5.1) mmol/L Chloride Pending (98-108) mmol/L Carbon Dioxide Pending (21-32) mmol/L Anion Gap Pending (4-12) mmol/L BUN Pending (7-18) mg/dL Creatinine Pending (0.70-1.30) mg/dL Estim Creat Clear Calc Pending ml/min Estimated GFR Pending (59 - ) Glucose Pending (70-99) mg/dL POC Capillary Glucose 158 H 125 H (65-105) mg/dl Calculated Osmolality Pending (285-295) mOsm/kg Lactic Acid Pending (0.4-2.0) mmol/L Calcium Pending (8.5-10.1) mg/dL Total Bilirubin Pending (0.00-1.00) mg/dL AST Pending (15-37) U/L ALT Pending (16-63) U/L Alkaline Phosphatase Pending (46-116) U/L Troponin I (0.00-60.4) ng/L C-Reactive Protein (0.0-0.9) mg/dL NT-Pro-B Natriuret Pep (0-125) pg/mL Total Protein Pending (6.4-8.2) g/dL Albumin Pending (3.4-5.0) g/dL Influenza A (RT-PCR) (Negative) Influenza B (RT-PCR) (Negative) RSV (RT-PCR) (Negative) SARS-CoV-2 RNA (RT-PCR) (Negative) <Gamaliel Mauro MD - Last Filed: 04/21/24 09:29> ABG Data ABG results: 04/19/24 14:09 Puncture Site Right radial ABG pH 7.42 ABG pCO2 34.6 L ABG pO2 54.0 L ABG HCO3 21.8 L ABG O2 Saturation 86.9 L ABG Base Excess -2.4 L Oxyhemoglobin 86.1 L O2 Delivery Device Room air O2 Liters/Min 0.0 <Grey Roger MD - Last Filed: 04/19/24 14:54> 04/19/24 14:09 Puncture Site Right radial ABG pH 7.42 ABG pCO2 34.6 L ABG pO2 54.0 L ABG HCO3 21.8 L ABG O2 Saturation 86.9 L ABG Base Excess -2.4 L Oxyhemoglobin 86.1 L O2 Delivery Device Room air O2 Liters/Min 0.0 <Marino Quick DO - Last Filed: 04/19/24 22:09> 04/19/24 14:09 Puncture Site Right radial ABG pH 7.42 ABG pCO2 34.6 L ABG pO2 54.0 L ABG HCO3 21.8 L ABG O2 Saturation 86.9 L ABG Base Excess -2.4 L Oxyhemoglobin 86.1 L O2 Delivery Device Room air O2 Liters/Min 0.0 <Jose M Vail MD - Last Filed: 04/20/24 21:25> 04/19/24 14:09 Puncture Site Right radial ABG pH 7.42 ABG pCO2 34.6 L ABG pO2 54.0 L ABG HCO3 21.8 L ABG O2 Saturation 86.9 L ABG Base Excess -2.4 L Oxyhemoglobin 86.1 L O2 Delivery Device Room air O2 Liters/Min 0.0 <Gamaliel Mauro MD - Last Filed: 04/21/24 09:29> Imaging Data Radiologist's impression: Impressions Chest X-Ray 04/19/24 14:17 Impression: 1: Mild bilateral interstitial infiltrates may represent edema or pneumonia. <Grey Roger MD - Last Filed: 04/19/24 14:54> ECG Data EKG #1: Attestation: I personally reviewed and interpreted this ECG as follows: <Grey Roger MD - Last Filed: 04/19/24 14:54> ECG completion date: 04/19/24 <Grey Roger MD - Last Filed: 04/19/24 14:54> Interpretation: NORMAL SINUS RHYTHM WITH FIRST-DEGREE AV BLOCK AT 66 BEATS PER MINUTE, NONSPECIFIC ST T-WAVE ABNORMALITY, RIGHT BUNDLE-BRANCH BLOCK, ABNORMAL EKG <Grey Roger MD - Last Filed: 04/19/24 14:54> Critical Care Time Critical Care Time Critical Care Time: No <Grey Roger MD - Last Filed: 04/19/24 14:54> Discharge Plan Discharge Patient Language: Danish <Grey Roger MD - Last Filed: 04/19/24 14:54> Prescriptions: No Action famotidine 20 mg tablet 20 mg PO DAILY Eliquis 5 mg tablet 5 mg PO Q12H sertraline 25 mg tablet See Rx Instructions .ROUTE .COMPLEX Rx Instructions: Take 1 tablet by mouth once Q HS pregabalin 150 mg capsule 150 mg PO QHS levothyroxine 100 mcg capsule 100 mcg PO DAILY rosuvastatin 20 mg tablet 20 mg PO DAILY carvedilol 6.25 mg tablet 6.25 mg PO Q12H Rx Instructions: must administer with a meal/food insulin glargine [Lantus Solostar U-100 Insulin] 100 unit/mL (3 mL) insulin pen 20 unit subcut QAM insulin lispro [Humalog KwikPen Insulin] 100 unit/mL insulin pen 1 sliding scale dose subcut USEASDIRECTD polyethylene glycol 3350 [Miralax] 17 gram/dose powder 17 g PO DAILY PRN (Reason: constipation) sennosides-docusate sodium [Senna with Docusate Sodium] 8.6-50 mg tablet 1 tab-cap PO BID PRN (Reason: constipation) acetaminophen [Tylenol Extra Strength] 500 mg tablet 500 mg PO Q6H PRN (Reason: pain) Rx Instructions: 1-2 TABLETS Q 6 HOURS PRN oxycodone 5 mg capsule 5 mg PO Q4H PRN (Reason: pain) cyclobenzaprine 5 mg tablet 5 mg PO TID PRN (Reason: MUSCLE RELAXER) Trelegy Ellipta 100-62.5-25 mcg blister with device 1 inh inhalation DAILY albuterol sulfate 90 mcg/actuation HFA aerosol inhaler 1 inh inhalation Q4H PRN (Reason: Shortness Of Breath) Qty: 8.5 2RF Envarsus XR 1 mg tablet extended release 24 hr See Rx Instructions PO QAM Rx Instructions: 5mg (3tablets) orally every morning; must be taken on empty stomach mycophenolate sodium [Myfortic] 360 mg tablet,delayed release (DR/EC) 360 mg PO BID valganciclovir 450 mg tablet 450 mg PO DAILY Rx Instructions: THURSDAY, THURSDAY, THURSDAY ONLY sulfamethoxazole-trimethoprim [Bactrim DS] 800-160 mg tablet 1 tablet PO DAILY Rx Instructions: Thursday, Thursday, and Thursday only. furosemide 80 mg tablet 80 mg PO QAM Trelegy Ellipta 200-62.5-25 mcg blister with device 1 inh inhalation DAILY Qty: 60 0RF carbidopa-levodopa 25-100 mg tablet extended release See Rx Instructions .ROUTE .COMPLEX Qty: 90 0RF Dose Instruction: TAKE 1 TABLET BY MOUTH ONCE DAILY AT BEDTIME Rx Instructions: TAKE 1 TABLET BY MOUTH ONCE DAILY AT BEDTIME clopidogrel 75 mg tablet See Rx Instructions .ROUTE .COMPLEX Qty: 30 0RF Dose Instruction: TAKE 1 TABLET (75 MG TOTAL) BY MOUTH DAILY Rx Instructions: TAKE 1 TABLET (75 MG TOTAL) BY MOUTH DAILY hydroxyzine HCl 25 mg tablet See Rx Instructions .ROUTE .COMPLEX Qty: 30 0RF Dose Instruction: TAKE 1 TABLET BY MOUTH AT BEDTIME NEEDED FOR INSOMNIA. CAN CAUSE DROWSINESS. Rx Instructions: TAKE 1 TABLET BY MOUTH AT BEDTIME NEEDED FOR INSOMNIA. CAN CAUSE DROWSINESS. <Grey Roger MD - Last Filed: 04/19/24 14:54> Follow-up/Referrals: Marino Quick DO [Primary Care Provider] - <Grey Roger MD - Last Filed: 04/19/24 14:54>
--- OUTSIDE RECORDS SUMMARY | 2024-04-19 14:03 | XMS_ITS ---
Author Organization [facility] Address [address] [place] [address] Care Team Providers Care Campground Caretaker Name Role Phone Aidan Yadav DO Unavailable [phone] Jovanna BUTLER MD, Susi Unavailable [phone] Frank Martin MD Unavailable [phone] Cam Harris MD Unavailable [phone] Marino Quick DO Primary Care Provider Ayo Abbott MD Unavailable [phone] Kirk Chaparro MD Unavailable [phone] Shama Antunez RN Unavailable [phone] Transplant Episode Kidney Recipient [facility] ([place], [place]) - [facility] Organ Received: Left Kidney Transplanted on 01/20/2024 Marked as Active Follow-up on 01/20/2024 Reason: Transplanted at [facility] Kidney CoordinatorShama Antunez RN Fax: N/A Email: N/A [place] Organ Diagnosis Organ Primary Contributory Kidney Diabetes Mellitus - Type II Foca l Glomerular Sclerosis (Focal Segmental - FSG) Donor Information Organ ABO Source Meets Risk Criteria HLA Match Mismatches Cross Match Left Kidney Transplanted O DCD No A: 1 B: 2 DR: 1 Left Kidney Donor Serology Results Anti-CMV CMV IgG: Negative EBV IgG EBV VCA IgG: Positive Anti-HBcAb HBC Total: Negative HBsAg HBsAg: Negative HBV DNA No results on file Anti-HCV HCV: Negative Anti-HIV I/II No results on file Anti-HTLV I/II HTLV: Not Done RPR/VDRL RPR: Negative EBV IgM EBV VCA IgM: Not Done HBsAb HBsAb: Not Done EBNA No results on file SARS CoV-2 No results on file Care Team Name Role Phone Fax Email Shama Antunez RN Kidney Coordinator [phone] N/A N/A Milly Polanco Secondary Range Management Specialist N/A N/A N/A Carolyn Siddiqui Organ Recovery Coordinator [phone] N/A N/A Cam Harris MD Referring Physician [phone] N/A Shama Antunez RN Varnishing Unit Operator [phone] N/A N/A Carolina Ramires Primary Range Management Specialist N/A N/A N/A Archana Jackson MD Transplant Safe [employer]osit Box Rental Clerk [phone] N/A Lynne Davies RN Pre Coordinator [phone] N/A N/A Luz Hood RN Secondary Coordinator [phone] N/A N/A Events Post-Transplant Pre-Transplant Admitted: 01/18/2024 Referred: 05/14/2020 Transplanted: 01/20/2024 Evaluation began: 1 Discharged: 01/28/2024 Committee: 04/08/2021 UNOS qualified: 07/08/2018 Center waitlisted: 2 Appointments (03/19/2024 - 05/17/2024) When With Visit Type Description 04/06/2024 Transplant - [place], S Return [place] unter for aftercare following kidney transplant (Primary Dx); Shortness of breath; FDC current use of immunosuppressive drug; Kidney replaced by transplant; Hypertension, unspecified type Dialysis History Dialysis History Start End Type Comments Center 10/28/2021 01/20/2024 Hem[facility] 07/08/2018 10/27/2021 Hemo M/W/F PM [facility] Dialysis Center Information Center Phone Fax Address VALERIY Garcia [facility] [phone] [address] [facility] [address] [facility] [phone] [address] [id number]
--- OUTSIDE RECORDS SUMMARY | 2024-04-19 14:03 | XMS_ITS | Continuity of Care Document ---
Author Organization [facility] Address [address] [place] [address] Phone Care Team Providers Care Parasitology Teacher Name Role Phone Zayda WRIGHT, Kimberly Unavailable Unavailable Allergies, Adverse Reactions, Alerts Substance Reaction Status Criticality No Known Allergies Active No Inform ation Medications Medication Instructions Dosage Effective Dates (start - stop) Status Comments clopidogrel 75 mg tablet take 1 tablet by oral route every day 75 MG - Active metoprolol tartrate 25 mg tablet take 1 tablet by oral route 2 times every day 25 MG - Active losartan 50 mg tablet take 1 tablet by o ral route every day 50 MG - Active levothyroxine 100 mcg capsule take 1 capsule by oral route every day 100 MCG - Active atorvastatin 40 mg tablet take 1 tablet by oral route every day 40 MG - Active pregabalin 150 mg capsule take 1 capsule by oral route 2 times every day 150 MG - Active nifedipine ER 60 mg tablet,extended release take 1 tablet by oral route every day 60 MG - Active aspirin 81 mg chewable tablet chew 1 tablet by oral route every day 81 MG - Active Velphoro 500 mg chewable tablet chew 1 tablet by oral route 3 times every day with meals 500 MG - Active Renvela 800 mg tablet take 1 tablet by o ral route 3 times every day with food 800 MG - Active B12 Active 1,000 mcg chewable tablet - Active Procedures Procedure Date Intro cath dialysis circuit Mod sed same phys/qhp 5/>yrs CONTRAST, 300/ML, PER ML MOD SED BY OR SUP BY PHYSICIAN INTRO CATH DIALYSIS CIRCUIT Radiation Exposure Documented To Be Coded Intro cath dialysis circuit Mod sed same phys/qhp 5/>yrs Advance Directives Directive Yes / No Effective Date File Name No Information Encounters Encounter Description Practice Location Reason(s) For Visit Diagnoses Date Provider Providers Copied on Encounter [facility], [address], [place], [id number], tel:[phone] [facility] No Information Apr- 3 Priest Kimberly. [address] [place] [address], [id number] , . tel:[phone] [facility], [address], [place], [id number], tel:[phone] [facility] End stage renal diseaseCompression of Vein 3 Priest Kimberly. [address] [place] [address], [id number] , . tel:[phone] Referring Provider: [place] Álvarez, [id number] [facility] [address], [place], [address] . tel:[phone] [facility], [address], [place], [id number], tel:[phone] [facility] Compression of VeinEnd stage renal disease 3 Priest Kimberly. [address] [place] [address], [id number] , . tel:[phone] Referring Provider: South Álvarez, [id number] [facility] [address], [place], [address] . tel:[phone] As per patient privacy policy some of the clinical information may not be visible. Family History Family Member Type Diagnosis Age At Onset No Information Payers Payer name Insurance type Covered constitution party ID Authoriza tion(s) Medicare [place] MB [id number] [facility] [id number] Social History Type Description Quantity Date Captured Comments Sex Male Smoking Status No Information Sexual Orientation Straight or heterosexual Gender Identity Male Chief Complaint And Reason For Visit No Information Reason For Referral Reason For Referral No Information Plan Of Treatment Date Type Action Status Future Order: Radiology Order Up per Body Flouroscopy (03510B), Ordered on: Ordered History Of Present Illness Encounter Date Complaint History Of Prese nt Illness No Information Functional Status Date Functional Assessmen t No Information Instructions Date Instruction Additional Infor mation No Information Assessments Type Assessment Date No Information Patient Care Teams Name Effective Dates (start - stop) Status Members No Information
--- OUTSIDE RECORDS SUMMARY | 2024-04-19 14:03 | XMS_ITS | Clinical Summary ---
Author Organization [facility] Address [address] [place] [address] Phone Care Team Providers Care Airplane Charter Clerk Name Role Phone Marino Quick MD Primary Care Provider [phone] Medications carbidopa-levodo pa (SINEMET) 25-100 MG Tablet Take 1 Tablet by mouth daily. Active Active Problems No known active problems Encounters Date Type Department Care Team Description 04/06/2024 Travel 03/29/2024 Travel 03/14/2024 Travel 02/27/2024 Travel 02/15/2024 Travel 02/14/2024 Travel from Last 3 Months Immunizations Immunization Administration Dates Next Due Influenza, high-dose, trivalent, PF 12/09/2023 Social History Tobacco Use Types Packs/Day Years Used Date Smoking Tobacco: Never Assessed Sex and Gender Information Value Date Recorded Sex Assigned at Not on file Legal Sex Male 10:23 PM CDT Gender Identity Not on file Sexual Orientation Not on file Plan of Treatment Health Maintenance Due Date Last Done Comments Hepatitis C Virus (HCV) Screening 1960 TdaP Immunization 1960 Colonoscopy 06/19/2003 Colorectal Cancer Screening 06/19/2003 Cologuard 2008 Immunochemical Fecal Occult Blood 2008 Zoster Immunization (1 of 2) 2008 PSA Discussion 2013 Respiratory Syncytial Virus (RSV) Immunization (Adult) (1 - Risk 60-74 years 1-dose series) 2018 SARS-COV-2 Immunization (3 - season) 2023 05/24/2020, 04/30/2020 Pneumococcal Immunization (50+ years) (3 of 3 - PCV20 or PCV21) 04/04/2025 04/04/2020, 03/02/2015, 11/08/2012 Hepatitis B Immunization Completed 024, 10/17/2019, 06/20/2019, Additional history exists Influenza Immunization Completed 4, 12/26/2020, 12/22/2016 Meningococcal Immunization (ACWY) Aged Out No longer eligible based on patient's age to complete this topic Rotavirus Immunization Aged Out No lo nger eligible based on patient's age to complete this topic Insurance MEDICARE [employer] Care Teams Airplane Charter Clerk Relationship Specialty Start Date End Date Marino Quick MD [address] [place] [id number] PCP - General Family Medicine 12/24/23
--- OUTSIDE RECORDS SUMMARY | 2024-04-19 14:03 | XMS_ITS | Encounter Summary ---
Author Organization [facility] Address [address] [place] [address] Care Team Providers Care Ip/Mosaic Technician Name Role Phone Nicholas David MD Primary Care Provider [phone] Jeanette Gonsalez MD Unavailable [phone] Marino Quick DO Primary Care Provider [phone] Encounter Details Date Type Department Care Team (Late st Contact Info) Description 07/28/2018 Peritoneal dialysis [facility] [address] [place] [address] [place] [address] [place] [address] Social History Tobacco Use Types Packs/Day Years Used Date Smoking Tobacco: Smoker, Current Status Unknown Sex and Gender Information Value Date Recorded Sex Assigned at Not on file Legal Sex Male 10:56 PM CDT Gender Identity Not on file Sexual Orientation Not on file documented as of this encounter Plan of Treatment Not on file documented as of this encounter Visit Diagnoses Not on filedocumented in this encounter Care Teams Ip/Mosaic Technician Relationship Specialty Start Date End Date Nicholas David MD [address] [place] [address] PCP - General FAMILY PRACTICE 07/07/18 10/28/21 Marino Quick DO [address] [place] [address] PCP - General FAMILY PRACTICE 10/29/21 Jeanette Gonsalez MD [address] [place] [address] Consulting Physician INTERNAL MEDICINE 07/07/18 documented as of this encounter
--- OUTSIDE RECORDS SUMMARY | 2024-04-19 14:03 | XMS_ITS | Encounter Summary ---
Author Organization [facility] Address [address] [place] [address] Phone Care Team Providers Care Bag Shop Worker Name Role Phone Gamaliel Evans MD Primary Care Provider + Gamaliel Evans MD Primary Care Provider + Nicholas David MD Primary Care Provider Gamaliel Evans MD Primary Care Provider + Lynne Davies RN Unavailable Domitila Manrique MD Unavailable Aidan Yadav DO Unavailable [phone] Domitila Manrique MD Unavailable Jovanna BUTLER MD, Courtney Unavailable Frank Martin MD Unavailable [phone] Cam Harris MD Unavailable [phone] Marino Quick DO Primary Care Provider Ayo Abbott MD Unavailable [phone] Kirk Chaparro MD Unavailable Shama Antunez RN Unavailable [phone] Encounter Details Date Type Department Care Team (Latest Contact Info) Description 11/26/2016 Orders Only [facility] CONVERSION Scanning, Provider Social History Tobacco Use Types Packs/Day Years Used Date Smoking Tobacco: Never Assessed Sex and Gender Information Value Date Recorded Sex Assigned at Not on file Legal Sex Male 3:24 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 ROOM 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 Gender Identity Male 11/30/2017 3:03 PM CDT Sexual Orientation Straight 06/05/2020 6: 53 AM CDT documented as of this encounter Plan of Treatment Not on file documented as of this encounter Procedures Procedure Name Priority Date/Time Associated Diagnosis Comments VASCULAR LABORATORY REPORT 11/26/2016 10:18 PM CDT documented in this encounter Results * VASCULAR LABORATORY REPORT (11/26/2016 10:18 PM CDT) Anatomical Region Laterality Modality Ultrasound us Provider Scanning CV VASCULAR PROCEDURES Final R esult documented in this encounter Visit Diagnoses Not on filedocumented in this encounter Additional Health Concerns Infection Onset Date Last Indicated Resolved Time COVID: Suspected 11/28/2021 11/28/2021 11/28/2021 12:38 PM CDT COVID: Suspected 01/06/2022 01/06/2022 01/06/2022 8:07 PM SPINNING ROOM WORKER COVID: Suspected 12/22/2022 12/22/2022 12/22/2022 4:59 PM CDT COVID: Suspected 02/27/2023 02/27/2023 02/27/2023 9:27 PM SPINNING ROOM WORKER COVID: Suspected 03/24/2023 03/25/2023 03/25/2023 5:17 AM SPINNING ROOM WORKER COVID: Suspected 04/06/2024 04/06/2024 04/06/2024 1:16 PM SPINNING ROOM WORKER Rhino/Enterovirus 04/06/2024 04/06/2024 04/13/2024 3:07 AM SPINNING ROOM WORKER documented as of this encounter Care Teams Bag Shop Worker Relationship Specialty Start Date End Date Gamaliel Evans MD [address] [facility] [address] [place] [address] PCP - General 08/04/16 04/12/17 Gamaliel Evans MD [address] [facility] [address] [place] [address] PCP - General 04/13/17 04/13/17 Nicholas David MD [address] [place] [address] PCP - General 04/14/17 06/14/17 Gamaliel Evans MD [address] [facility] [address], [place] [address] PCP - General 06/15/17 09/28/23 Marino Quick DO [address] [place] [address] PCP - General Family Medicine 09/29/23 Lynne Davies, RN [address] [facility] [address] [place] [address] Peanut Cleaner 06/05/2001/19 Domitila Manrique MD [address] [facility] [address] [place] [address] Referring Physician Nephrology 06/05/20 10/02/20 Aidan Yadav DO [address] [place] [address] Plc Engineer Cardiology 06/05/20 Domitila Manrique MD [address] [place] [address] Referring Physician Nephrology 10/03/20 01/06/23 [place] [address] [place] [address] Urologist Urology 11/05/21 [place] [address] [place] [address] Consulting Physician Interventional Cardiology 01/09/22 Cam Harris MD [address] [place] [address] [address] [place] [id number] Consulting Physician Nephrology 01/07/23 Ayo Abbott MD [address] [id number] Brim Pouncer Dermatology 10/09/23 Kirk Chaparro MD [address] [address] Surgeon Vascular Surgery 10/13/23 Shama Antunez RN [address] [facility] [address] [place] [address] Peanut Cleaner 01/20/24 documented as of this encounter
--- OUTSIDE RECORDS SUMMARY | 2024-04-19 14:03 | XMS_ITS | Clinical Summary ---
Author Organization [facility] Address [address] [place] [address] Care Team Providers Care Chemicals Distiller Name Role Phone Unavailable Primary Care Provider Unavailabl e Social History Tobacco Use Types Packs/Day Years Used Date Smoking Tobacco: Never Assessed Sex and Gender Information Value Date Recorded Sex Assigned at Not on file Legal Sex Male 1:32 PM EDT Gender Identity Not on file Sexual Orientation Not on file Plan of Treatment Health Maintenance Due Date Last Done Comments Colorectal Cancer Screening: Annual FOBT 06/19/2007 Colorectal Cancer Screening: Colonoscopy 06/19/2007 Colorectal Cancer Screening: Sigmoidoscopy 06/19/2007 Diabetes: Ophthalmology Exam 08/03/2023 Diabetes: Pedal Pulse Checked 08/03/2023 Diabetes: Sensory Foot Exam 08/03/2023 Diabetes: Visual Foot Exam 08/03/2023 Influenza Vaccine (#1) 2023 12/26/2020, 2016 Diabetes: Hemoglobin A1C 04/19/202401/17/2 024, 12/29/2023, 09/17/2023, Additional history exists Pneumococcal Vaccine: 65+ Years (4 of 4 - PPSV23 or PCV20) 04/04/2025 04/04/2020, 03/02/2015, 11/08/2012 Pneumococcal Vaccine: Pediatrics (0 to 5 Years) and At-Risk Patients (6 to 64 Years) (4 of 4 - PPSV23 or PCV20) 04/04/2025 04/04/2020, 03/02/2015, 11/08/2012 Hepatitis B Vaccine Aged Out 10/17/2019, 06/20/2019, 05/16/2019, Additional history exists No longer eligible based on patient's age to complete this topic Insurance MEDICARE [facility] CHOICE ([id number])
--- OUTSIDE RECORDS SUMMARY | 2024-04-19 14:34 | XMS_ITS | Clinical Summary ---
Author Organization [facility], formerly [facility] Address [address] [place] [address] Care Team Providers Care Hull And Deck Remover Name Role Phone Aidan Yadav DO Unavailable [phone] Jovanna BUTLER MD, Susi Unavailable [phone] Frank Martin MD Unavailable [phone] Cam Harris MD Unavailable [phone] Marino Quick DO Primary Care Provider Ayo Abbott MD Unavailable [phone] Kirk Chaparro MD Unavailable [phone] Shama Antunez RN Unavailable [phone] Allergies No known active allergies Medications hydrOXYzine [...] different from the original. Discharge Planning: Pharmacy: [facility] - [id number] in [place], [place] Specialty: [facility] Specialty Program Labs: [facility] Q-WEEKLY, FK; Q-MONTHLY BK; Q-3 ROUTINE (Exp 08/16/24) HH: [facility] Verbal Consent: Jonathan (spouse), Ramone (son), Liz ([id number]) Problem Noted Date Diagnosed Date Perinephric fluid [...] (01/07/2022): Added automatically from request for surgery [id number] Left knee pain 08/08/2021 Primary hypothyroidism 08/08/2021 Cellulitis of right lower extremity 05/02/2021 Coronary artery disease invo lving georgetown heart without angina pectoris 10/25/2020 Overview (10/25/2020): Added automatically from request for surgery [id number] Diabetes mellitus 06/12/2020 Mixed hyperlipidemia 06/12/2020 Assessment & Plan (10/15/2023 11:31 AM CDT): Hyperlipidemia chronic controlled. Continue current medical management. Lower extremity edema 07/07/2018 Hyperkalemia 03/15/2018 Volume overload 03/15/2018 Anemia in stage 5 chronic ki dney disease, not on chronic dialysis 03/15/2018 ESRD (end stage renal disease) ([facility]) 018 Overview (01/25/2018): Added automatically from request for surgery [id number] Assessment & Plan (10/15/2023 11:28 AM CDT): End-stage renal disease. Continue dialysis pending renal transplant. LOLLY (renal osteodystrophy) 09/28/2017 Metabolic acidosis 09/28/2017 Essential hypertension 09/28/2017 Anemia in stage 4 chronic kidney disease 018 Stage 5 chronic kidney disease ([facility]) 018 Overview (03/10/2024): Added automatically from request for surgery [id number] Chronic renal failure, stage 4 (severe) ([facility] ) 06/15/2017 Chronic renal insufficiency, stage III [...] Department Care Team Description 04/19/2024 10:20 AM ANNEALER Lab [facility]) [address] [place] [phone] Kidney replaced by transplant; Encounter for long-term (current) use of medications 04/19/2024 Telephone [facility] Transplant Kidney [address] [facility] [address] Mailstop 90-29-910 [place] [address] Carolina Ramires 04/06/2024 1:00 PM ANNEALER Office Visit [facility] Cardiology [facility] Advanced Medicine 8th [place] [address] [place] [address] Marian Merino MD Coronary artery disease involving georgetown coronary artery of [place] heart without angina pectoris (Primary Dx); Paroxysmal atrial fibrillation (CMS/HCC) (HCC); Abnormal stress test; Essential hypertension; Mixed hyperlipidemia; ROIANA (obstructive sleep apnea) 04/06/2024 12:45 PM ANNEALER Lab [facility] ([facility]) [address] [place] [phone] Encounter for aftercare following kidney transplant 04/06/2024 11:15 AM ANNEALER - 04/06/2024 11:59 PM ANNEALER Hospital Encounter [facility] Radiology [place] [facility] ([facility]) [address] [place] [address] Shortness of breath Discharge Disposition: Discharge to home or self care 04/06/2024 10:00 AM ANNEALER Office Visit [facility] Nephrology [address] 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 current use of immunosuppressive drug; Kidney replaced by transplant; Hypertension, unspecified type 03/24/2024 [facility] [address] [facility] [address] [place] [address] Gamaliel Evans MD 03/22/2024 8:57 AM ANNEALER - 03/22/2024 11:59 PM ANNEALER Hospital Encounter [facility] [address] [place] [address] Perinephric fluid collection Discharge Disposition: Discharge to home or self care 03/17/2024 Telephone [facility] Cardiology [address] [place] [address] 8th [place] [address] [place] [address] Marian Merino MD 03/17/2024 Telephone [facility] Radiology [address] [place] [address] Augusta Melara RN 03/16/2024 Telephone [facility] Cardiology [address] [place] [address] 8th [place] [address] [place] [address] Marian Merino MD 03/10/2024 10:00 AM ANNEALER Office Visit [facility] Radiology, Interventional Radiology [address] [facility] [address] [place] [address] Sue Hood PA Kidney replaced by transplant (Primary Dx); Central venous catheter in place 03/10/2024 8:40 AM ANNEALER Office Visit [facility] ([facility]) - [facility] Urology [address] [facility] 11th [place] [address] [place] [address] Roscoe Peck MD Encounter for removal of ureteral stent (Primary Dx) 03/10/2024 8:10 AM ANNEALER Lab [facility]) [address] [place] [phone] Kidney replaced by transplant 03/10/2024 Orders Only [facility] Transplant Kidney [address] [facility] [address] Mailstop 83-98-139 [place] [address] Shama Antunez RN 03/08/2024 11:31 AM ANNEALER - 03/08/2024 11:59 PM ANNEALER Hospital Encounter [facility]iology [facility] [address] [place] [address] Discharge Disposition: Discharge to home or self care 03/08/2024 11:30 AM ANNEALER - 03/08/2024 11:59 PM ANNEALER Hospital Encounter [facility] ([facility] [address] [place] [address] Discharge Disposition: Discharge to home or self care 03/08/2024 11:30 AM ANNEALER - 03/08/2024 11:59 PM ANNEALER Hospital Encounter [facility]iology [facility] ([facility]) [address] [place] [address] Coronary artery disease involving [place] coronary artery of [place] heart without angina pectoris Discharge Disposition: Discharge to home or self care 03/08/2024 8:44 AM ANNEALER - 03/08/2024 11:59 PM ANNEALER Hospital Encounter [facility] Radiology [facility] [address] [place] [address] Perinephric fluid collection Discharge Disposition: Discharge to home or self care 03/08/2024 Home Care Visit [facility] - [address] [place] [address] Dayton Tate, SAURAV SN VIRTUAL OASIS DISCHARGE 03/08/2024 Telephone [facility] Radiology, Interventional Radiology [address] [facility] [address] [place] [phone] Clarissa Juares, SAURAV Appointment 03/08/2024 Telephone [facility] Transplant Kidney [address] [facility] [address] Mailstop 83-77-565 [place] [address] Shama Antunez, RN 03/08/2024 Orders Only [facility] Transplant Kidney [address] [facility] [address] Mailstop 90-37-948 [place] [address] Shama Antunez, RN Kidney replaced by transplant (Primary Dx) 03/07/2024 9:15 AM ANNEALER Telemedicine [facility] Nephrology [address] [facility] 5th [place] [address] [place] [address] Grey Boland MD 03/07/2024 Telephone [facility] Radiology [address] [place] [address] Tiffanie Milton RN 03/04/2024 Telephone [facility] Radiology [address] [place] [address] Kirstin Soto, SAURAV 03/04/2024 Telephone [facility] Radiology [address] [place] [address] Kirstin Soto, SAURAV 03/03/2024 9:40 AM ANNEALER - 03/03/2024 11:59 PM ANNEALER Hospital Encounter [address] [address] Discharge Disposition: Discharge to home or self care 03/03/2024 5:30 AM ANNEALER Home Care Visit [address] [place] [address] Cele Mccallum HOME VISIT 03/03/2024 Home Care Visit [address] [place] [address] Maria T Staley, RN TELEPHONE ENCOUNTER 03/01/2024 8:00 AM ANNEALER - 03/01/2024 11:59 PM ANNEALER Hospital Encounter [address] [address] Discharge Disposition: Discharge to home or self care 03/01/2024 7:30 AM ANNEALER Home Care Visit [address] [place] [address] Dayton Tate, RN SN HOME VISIT 02/29/2024 Orders Only [facility] Transplant Kidney [address] [facility] [address] Mailstop 89-15-479 [place] [address] Shama Antunez, SAURAV 02/29/2024 Orders Only [facility] Transplant Kidney [address] [facility] [address] Mailstop 73-39-014 [place] [address] Shama Antunez, SAURAV 02/26/2024 Telephone [facility] Radiology [address] [place] [address] Tiffanie Milton RN 02/26/2024 Orders Only [facility] Radiology [address] [place] [address] Tiffanie Milton RN 02/25/2024 1:00 PM ANNEALER Home Care Visit [address] [place] [address] Dayton Tate, SAURAV SN OASIS RESUMPTION OF CARE 02/25/2024 Plan of Care Documentation [address] [place] [address] 02/25/2024 Telephone [facility] Transplant Kidney [address] [facility] [address] Mailstop 12-17-425 [place] [address] Sandrita Pabon 02/21/2024 12:09 PM ANNEALER - 02/23/2024 2:28 PM ANNEALER Hospital Encounter [address] [address] Renetta [place] MD PhD Darshan Beach MD PhD Perinephric fluid collection (Primary Dx) Discharge Disposition: Discharge to home, home health skilled care 02/21/2024 Home Care Visit [address] [place] [address] Dayton Tate, RN SN OASIS TRANSFER W/OUT DC 02/21/2024 Orders Only [facility] Radiology 1 [facility] [place] [address] Ruth Mehta, SAURAV 02/20/2024 Telephone [facility] Transplant Kidney [address] [facility] [address] Mailstop 51-52-358 [place] [address] Julia Javier, SAURAV After Hours 02/19/2024 8:00 AM ANNEALER Home Care Visit [address] [place] [address] Dayton Tate, SAURAV SN HOME VISIT 02/19/2024 Telephone [facility] Transplant Kidney [address] [facility] [address] Mailstop 84-16-229 [place] [address] Shama Antunez, SAURAV 02/18/2024 Telephone [facility] Transplant Kidney [address] [facility] [address] 69-38-258 [place] [address] Shama Antunez, SAURAV 02/17/2024 4:00 PM ANNEALER Office Visit [facility] Cardiology [facility] Advanced Medicine 8th [place] [address] [place] [address] Marian Merino MD Coronary artery disease involving [place] coronary artery of [place] heart without angina pectoris (Primary Dx); Atrial fibrillation, unspecified type (HCC); Essential hypertension; Mixed hyperlipidemia; Abnormal echocardiogram 02/17/2024 11:30 AM ANNEALER Lab [facility] for [facility] ([facility]) [address] [place] [phone] Kidney replaced by transplant 02/17/2024 10:11 AM ANNEALER - 02/17/2024 11:59 PM ANNEALER Hospital Encounter [facility] Radiology [facility]) [address] [place] [address] Ayush Galvez MD Swelling abdomen Discharge Disposition: Discharge to home or self care 02/17/2024 9:40 AM ANNEALER Office Visit [facility] Urology [address] [facility] 11th [place] [address] [place] [address] Darshan Noriega MD -donor kidney transplant recipient (Primary Dx); Encounter for removal of ureteral stent 02/17/2024 Orders Only [facility] Surgery [address] [facility] 12th [place] [address] [place] [address] Monster Harding MD 02/17/2024 Telephone Radiology 1 [place] [address] Ayo Sharpe MD PhD 02/17/2024 Orders Only [address] [phone] Susi Nuñez PA Abdominal fluid collection (Primary Dx) 02/17/2024 Telephone [facility] Transplant Kidney [address] [facility] [address] Mailstop 16-12-360 [place] [address] Shama Antunez RN 02/16/2024 8:15 AM ANNEALER Home Care Visit [address] [place] [address] Dayton Tate RN SN HOME VISIT 02/16/2024 Orders Only [facility] Transplant Kidney [address] [facility] [address] Mailstop 98-74-353 [place] [address] Carolina Ramires Kidney replaced by transplant (Primary Dx); Encounter for long-term (current) use of medications; Hyperlipidemia, unspecified hyperlipidemia type 02/16/2024 Telephone [facility] Transplant Kidney [address] [facility] [address] Mailstop 79-51-325 [place] [address] Shama Antunez RN 02/16/2024 Telephone [facility] Transplant Kidney [address] [facility] [address] Mailstop 51-77-793 [place] [address] Shama Antunez, SAURAV 02/16/2024 Telephone [facility] Transplant Kidney [address] [facility] [address] Mailstop 71-75-525 [place] [address] Shama Antunez, RN 02/16/2024 Telephone [facility] Transplant Kidney [address] [facility] [address] Mailstop 52-77-821 [place] [address] Shama Antunez, SAURAV 02/11/2024 9:00 AM ANNEALER - 02/11/2024 11:59 PM ANNEALER Hospital Encounter [address] [address] Discharge Disposition: Discharge to home or self care 02/11/2024 8:30 AM ANNEALER Home Care Visit [address] [place] [address] [place] [address] Dayton Tate RN SN HOME VISIT 02/09/2024 2:45 PM ANNEALER Office Visit [facility] Nephrology [address] [place] [address] [facility] 5th [place] [address] [place] [address] Aurea Fine NP 02/09/2024 2:40 PM ANNEALER - 02/09/2024 11:59 PM ANNEALER Hospital Encounter [facility] Radiology [facility] [address] [place] [address] Kidney transplanted Discharge Disposition: Discharge to home or self care 02/09/2024 1:00 PM ANNEALER Office Visit [facility] Surgery [address] [facility] Advanced Medicine 12th [place] [address] [place] [address] Aurea Hameed PA Kidney transplanted (Primary Dx) 02/09/2024 9:00 AM ANNEALER - 02/09/2024 11:59 PM ANNEALER Hospital Encounter [address] [address] Kidney transplanted Discharge Disposition: Discharge to home or self care 02/09/2024 8:30 AM ANNEALER Home Care Visit [address] [place] [address] Dayton Tate, SAURAV SN HOME VISIT 02/09/2024 Telephone [facility] Transplant Kidney [address] [facility] [address] Mailstop 10-43-910 [place] [address] Mervat Yeung, SAURAV After Hours 02/09/2024 Telephone [facility] Transplant Kidney [address] [facility] [address] Mailstop 76-52-858 [place] [address] Shama Antunez, SAURAV 02/09/2024 Telephone [facility] Transplant Kidney [address] [facility] [address] Mailstop 39-07-533 [place] [address] Shama Antunez RN 02/09/2024 Home Care Visit [place] [address] [address] [place] [address] Tanya Savage, PT CASE COMMUNICATION 02/08/2024 3:15 PM ANNEALER Office Visit [facility] [address] [place] [phone] Gamaliel Evans MD Type 2 diabetes mellitus with chronic kidney disease on chronic dialysis, with long-term current use of insulin (HCC) (Primary Dx); Primary hypothyroidism; Mixed hyperlipidemia; Coronary artery disease involving [place] coronary artery of [place] heart without angina pectoris; -donor kidney transplant recipient; Atrial fibrillation, unspecified type (HCC) 02/08/2024 2:00 PM ANNEALER Clinical Support [facility] [address] [place] [phone] Type 2 diabetes mellitus with chronic kidney disease on chronic dialysis, with long-term current use of insulin (HCC) (Primary Dx) 02/08/2024 Telephone [facility] Transplant Kidney [address] Mailstop 66-81-936 [place] [address] Shama Antunez, SAURAV 02/05/2024 Telephone [facility] Transplant Kidney [address] [facility] [address] Mailstop 65-26-767 [place] [address] Shama Antunez, SAURAV 02/04/2024 1:45 PM ANNEALER Home Care Visit [address] [place] [address] Tanya Savage, PT PT INITIAL EVALUATION 02/04/2024 10:00 AM ANNEALER - 02/04/2024 11:59 PM ANNEALER Hospital Encounter [address] [address] Discharge Disposition: Discharge to home or self care 02/04/2024 8:00 AM ANNEALER Home Care Visit [place] [address] [place] [address] Galilea Noguera, SAURAV SN HOME VISIT 02/03/2024 Telephone [facility] Transplant Kidney [address] [facility] [address] Mailstop 63-78-259 [place] [address] Sahma Antunez, SAURAV 02/03/2024 Orders Only [facility] Transplant Kidney [address] [facility] [address] Mailstop 06-45-876 [place] [address] Shama Antunez, SAURAV Kidney replaced by transplant (Primary Dx) 02/02/2024 9:30 AM ANNEALER Home Care Visit [address] [place] [address] Dayton Tate, SAURAV SN OASIS START OF CARE 02/02/2024 9:00 AM ANNEALER - 02/02/2024 11:59 PM ANNEALER Hospital Encounter [address] [address] Discharge Disposition: Discharge to home or self care 02/02/2024 Plan of Care Documentation [facility] - [address] [place] [address] 02/02/2024 Telephone [facility] Transplant Kidney [address] [facility] [address] Mailstop 54-43-139 [place] [address] Shama Antunez RN 02/01/2024 Telephone [facility] Transplant Kidney [address] [facility] [address] Mailstop 61-37-265 [place] [address] Sofai Tineo 01/26/2024 Orders Only [facility] Transplant Kidney [address] [facility] [address] Mailstop 28-68-719 [place] [address] Michelle Bowman RN 01/22/2024 10:05 AM ANNEALER - 01/22/2024 12:25 PM ANNEALER Surgery [facility] Operating Room [address] [place] [address] Ayush Galvez MD RE-EXPLORATION KIDNEY TRANSPLANT 01/22/2024 9:13 AM ANNEALER Anesthesia Event [facility] Operating Room [address] [place] [address] Mahtieu Beaver MD Jablonski, Melody A., NP 01/22/2024 Orders Only [facility] Transplant Kidney [address] [facility] [address] Mailstop 39-53-354 [place] [address] Milly Polanco Inconclusive laboratory evidence of human immunodeficiency virus (HIV) (Primary Dx); Aftercare following organ transplant; History of kidney transplant 01/22/2024 Telephone [facility] Cardiology [address] [facility] 8th [place] [address] [place] [phone] Ebony Juárez 01/22/2024 Telephone [facility] Transplant Kidney [address] [facility] [address] Mailstop 38-78-185 [place] [address] Carolyn Siddiqui 01/21/2024 Telephone [facility] Transplant Kidney [address] [facility] [address] Mailstop 52-96-186 [place] [address] Lynne Davies RN Waitlist Maintenance 01/21/2024 Documentation [facility] Transplant Kidney [address] [facility] [address] Mailstop 88-18-125 [place] [address] Savanna Mabry 01/20/2024 12:47 PM ANNEALER Anesthesia Event [facility] Operating Room [address] [place] [phone] Roscoe Sandhu MD Nizam, Rasheeq Rahman, MD 01/20/2024 11:50 AM ANNEALER - 01/20/2024 4:55 PM ANNEALER Surgery [facility] Operating Room [address] [place] [phone] Ayush Galvez MD TRANSPLANT KIDNEY UNOS:[id number] OPO:[id number] [[id number]] 01/20/2024 Telephone [facility] Transplant Kidney [address] [facility] [address] Mailop 19-65-647 [place] [address] Mirian Villanueva RN Waitlist Maintenance (/) 01/20/2024 Orders Only [facility] Transplant Kidney [address] [facility] [address] Mailstop -66-372 [place] [address] Michelle Bowman, SAURAV 01/19/2024 Documentation [facility] [address] [facility] [address] [place] [id number] Jess Strauss RPh 01/18/2024 10:11 PM ANNEALER - 01/28/2024 7:20 PM ANNEALER Hospital Encounter [address] [phone] Larry Travis MD Wellen, Jason Reid, MD -donor kidney transplant recipient (Primary Dx); Steroid-induced hyperglycemia; Coronary artery disease involving [place] coronary artery of [place] heart without angina pectoris; Atrial fibrillation, unspecified type (HCC) Discharge Disposition: Discharge to home, home health skilled care 01/18/[address] [facility] Surgeon [address] [place] [address] Arya Dolan MD 01/18/2024 Telephone [facility] Transplant Kidney [address] [facility] [address] Mailstop 28-99-461 [place] [address] Mervat Yeung, SAURAV Organ Offer Follow-up 01/18/2024 Telephone [facility] Transplant Kidney [address] [facility] [address] Mailstop 80-83-417 [place] [address] Mervat Yeung, installation supervisor Organ Offer 01/18/2024 Orders Only [facility] Transplant Liver [address] [facility] [id number] [place] [address] Rosalie Velásquez NP from Last 3 Months [...] Left Knee Surgery - (Added by Conv) MA ARTHROSCOPY ELBOW DIAG W/ WO SYNOVIAL BIOPSY [...] History Date Comments CAD (coronary artery disease) [place] (myocardial infarction) (HCC) Arthritis Anemia Hyperlipidemia Type [...] materials from doctor or pharmacy Never 03/08/2024 [facility] Utilities Answer Date Recorded In the past 12 months has th e alphacityguides, gas, oil, or water [employer] threatened to shut off services in your [...] any clubs o r organizations such as yazdanism groups, unions, fraternal or athletic groups, or [...] place to sleep or slept in a retirement (including now)? No 03/25/2023 Housing Stability Vital Sign Answer Ramesh e Recorded In the last 12 months, was t here a time when you were not able to pay the mortgage or rent on time? No 02/22/2024 In the past 12 months, how m any times have you moved where you were living? 0 02/22/2024 At any time in the past 12 m [facility], were you homeless or living in a retirement (including now)? No 02/22/2024 Personal Safety Answer [...] on file Legal Sex Male 3:24 AM ANNEALER Gender Identity Male 11/30/2017 3:03 PM CDT Sexual Orientation Straight 06/05/2020 6: 53 AM CDT Obstetrics History Last Filed Vital Signs Vital Sign Reading Time Taken Comments Blood Pressure 127/67 04/06/2024 12:54 PM ANNEALER Pulse 74 04/06/2024 12:54 PM ANNEALER Temperature 36.6 C (97.8 F) 04/06/2024 10:21 AM ANNEALER Respiratory Rate 16 03/22/2024 10:08 AM ANNEALER Oxygen Saturation 94% 04/06/2024 12:54 PM ANNEALER Inhaled Oxygen Concentration - - Weight 117.9 kg (260 lb) 04/06/2024 12:54 PM ANNEALER Height 190.5 cm (6' 3 ) 04/06/2024 12:54 PM ANNEALER Body Mass Index 32.5 04/06/2024 12:54 PM ANNEALER Plan of Treatment Health Maintenance Due Date [...] history exists Medical Devices Implanted Type Area Ball Thread Machine Tender Device Identifier Shelf Expiration Date Model / Serial / Lot 99dresses Frankie Angio-Seal Vip 6fr Closere Device [id number] - [id number] Implanted:Qty: 1 on 07/30/2023 by Chino Saleh MD at [facility] Other - see comments [employer] Frankie 04/01/2024 [id number] / / [id number] Stents-02/05/2007 Implanted:Qty: 2 on 02/05/2007 N/A: Heart Description: [employer]imagine [id number] Sternalock Uday 8 Hole Sternum Plate Bone 2.4 Mm Screw - [id number] Implanted:Qty: 3 on 11/26/2020 by Carmen Aparicio MD at [facility] N/A: Sternum [employer] [id number] / / Bi[employer] 73-2416 Sternalock Uday 2.4mm 16mm Self Drill Lock Sternum Cancellous - [id number] Implanted:Qty: 16 on 11/26/2020 by Carmen Aparicio MD at [facility] N/A: Sternum [employer] [id number] / / Biomet [employer] 73-2418 Sternalock Uday 2.4mm 18mm Self Drill Lock Sternum Cancellous - [id number] Implanted:Qty: 4 on 11/26/2020 by Carmen Aparicio MD at [facility] N/A: Sternum [employer] [id number] / / Bi[employer] 73-2420 Sternalock Uday 2.4mm 20mm Self Drill Lock Sternum Cancellous - [id number] Implanted:Qty: 4 on 11/26/2020 by Carmen Aparicio MD at [facility] N/A: Sternum [employer] 73-2420 / / Explanted Type Area Ball Thread Machine Tender Device Identifier Shelf Expiration Date Model / Serial / Lot [employer] Stent Ureteral Set Double Pigtail Radiopaque Tip [employer] [id number] Polyurethane Hydrophilic Coated [id number] - [id number] Implanted:Qty: 1 on 01/20/2024 by Ayush Galvez MD at [facility] Explanted:Qty: 1 on 03/10/2024 by Roscoe Peck MD Stent Right: Transplanted Ureter [employer] [id number] 10/25/2026 [id number] / / [id number] Procedures Procedure Name Priority Date/Time Associated Diagnosis Comments EGFR Routine 04/19/2024 10:42 AM ANNEALER Kidney replaced by transplant DIFFERENTIAL AUTO Routine 04/19/2024 10:42 AM ANNEALER Kidney replaced by transplant CBC WITH AUTO DIFFERENTIAL Routine 04/19/2024 10:42 AM ANNEALER Kidney replaced by transplant RENAL FUNCTION PANEL Routine 04/19/2024 10:42 AM ANNEALER Kidney replaced by transplant TACROLIMUS LEVEL, TROUGH Routine 04/19/2024 10:42 AM ANNEALER Kidney replaced by transplant Encounter for long-term (current) use of medications DIFFERENTIAL AUTO Routine 04/06/2024 11:42 AM ANNEALER Encounter for aftercare following kidney transplant CBC WITH AUTO DIFFERENTIAL Routine 04/06/2024 11:42 AM ANNEALER Encounter for aftercare following kidney transplant RESPIRATORY PATHOGEN PANEL Routine 04/06/2024 11:41 AM ANNEALER Encounter for aftercare following kidney transplant XR CHEST PA LATERAL 2 VIEWS Schedule Routine, Read Routine (OP Routine) 04/06/2024 11:28 AM ANNEALER Shortness of breath POCT URINALYSIS DIPSTICK Routine 04/06/2024 10:35 AM ANNEALER Encounter for aftercare following kidney transplant BK VIRUS, DNA, QUANTITATIVE Routine 04/05/2024 9:00 AM ANNEALER Kidney replaced by transplant TACROLIMUS LEVEL, TROUGH Routine 04/05/2024 8:59 AM ANNEALER Kidney replaced by transplant Encounter for long-term (current) use of medications RENAL FUNCTION PANEL Routine 04/05/2024 8:58 AM ANNEALER Kidney replaced by transplant RENAL FUNCTION PANEL Routine 04/05/2024 8:57 AM ANNEALER Kidney replaced by transplant BK VIRUS, DNA, QUANTITATIVE Routine 03/29/2024 11:28 AM ANNEALER Kidney replaced by transplant TACROLIMUS LEVEL, TROUGH Routine 03/29/2024 11:27 AM ANNEALER Kidney replaced by transplant Encounter for long-term (current) use of medications CBC WITH AUTO DIFFERENTIAL Routine 03/29/2024 11:26 AM ANNEALER Kidney replaced by transplant RENAL FUNCTION PANEL Routine 03/29/2024 11:25 AM ANNEALER Kidney replaced by transplant BK VIRUS, DNA, QUANTITATIVE Routine 03/23/2024 12:07 PM ANNEALER Kidney replaced by transplant TACROLIMUS LEVEL, TROUGH Routine 03/23/2024 12:06 PM ANNEALER Kidney replaced by transplant Encounter for long-term (current) use of medications CBC WITH AUTO DIFFERENTIAL Routine 03/23/2024 12:05 PM ANNEALER Kidney replaced by transplant RENAL FUNCTION PANEL Routine 03/23/2024 12:04 PM ANNEALER Kidney replaced by transplant ABSCESS CATHETER INJECTION Schedule Routine, Read Routine (OP Routine) 03/22/2024 10:05 AM ANNEALER Perinephric fluid collection LIPID PANEL Routine 03/15/2024 9:49 AM ANNEALER Kidney replaced by transplant Hyperlipidemia, unspecified hyperlipidemia type HEPATIC FUNCTION PANEL Routine 03/15/2024 9:48 AM ANNEALER Kidney replaced by transplant BK VIRUS, DNA, QUANTITATIVE Routine 03/15/2024 9:48 AM ANNEALER Kidney replaced by transplant TACROLIMUS LEVEL, TROUGH Routine 03/15/2024 9:47 AM ANNEALER Kidney replaced by transplant Encounter for long-term (current) use of medications CBC WITH AUTO DIFFERENTIAL Routine 03/15/2024 9:47 AM ANNEALER Kidney replaced by transplant RENAL FUNCTION PANEL Routine 03/15/2024 9:46 AM ANNEALER Kidney replaced by transplant POCT URINALYSIS DIPSTICK Routine 03/10/2024 8:47 AM ANNEALER Encounter for removal of ureteral stent EGFR Routine 03/10/2024 8:21 AM ANNEALER Kidney replaced by transplant DIFFERENTIAL AUTO Routine 03/10/2024 8:2 1 AM ANNEALER Kidney replaced by transplant RENAL FUNCTION PANEL Routine 03/10/2024 8:21 AM ANNEALER Kidney replaced by transplant CBC WITH AUTO DIFFERENTIAL Routine 03/10/2024 8:21 AM ANNEALER Kidney replaced by transplant TACROLIMUS LEVEL, RANDOM Routine 03/10/2024 8:21 AM ANNEALER Kidney replaced by transplant MAGNESIUM Routine 03/10/2024 8:21 AM ANNEALER Kidney replaced by transplant BK VIRUS PCR QUANTITATIVE Routine 03/10/2024 8:21 AM ANNEALER Kidney replaced by transplant PET STRESS TEST Schedule Routine, Read Routine (OP Routine) 03/08/2024 3:12 PM ANNEALER Coronary artery disease involving [place] coronary artery of [place] heart without angina pectoris PET/CT MYOCARDIAL PERFUSION IMAGING (MULTIPLE) Schedule Routine, Read Routine (OP Routine) 03/08/2024 3:12 PM ANNEALER Coronary artery disease involving [place] coronary artery of [place] heart without angina pectoris ABSCESS CATHETER INJECTION Schedule Routine, Read Routine (OP Routine) 03/08/2024 11:02 AM ANNEALER Perinephric fluid collection EGFR STAT 03/03/2024 9:40 AM ANNEALER DIFFERENTIAL AUTO STAT 03/03/2024 9:4 0 AM ANNEALER TACROLIMUS LEVEL, TROUGH STAT 03/03/2024 9:40 AM ANNEALER MAGNESIUM STAT 03/03/2024 9:40 AM ANNEALER CBC WITH AUTO DIFFERENTIAL STAT 03/03/2024 9:40 AM ANNEALER RENAL FUNCTION PANEL STAT 03/03/2024 9:40 AM ANNEALER EGFR Routine 03/01/2024 8:00 AM ANNEALER RENAL FUNCTION PANEL Routine 03/01/2024 8:00 AM ANNEALER DIFFERENTIAL AUTO Routine 03/01/2024 8:0 0 AM ANNEALER TACROLIMUS LEVEL, TROUGH Routine 03/01/2024 8:00 AM ANNEALER MAGNESIUM Routine 03/01/2024 8:00 AM ANNEALER CBC WITH AUTO DIFFERENTIAL Routine 03/01/2024 8:00 AM ANNEALER HEPATIC FUNCTION PANEL Routine 02/26/2024 8:59 AM ANNEALER Kidney replaced by transplant LIPID PANEL Routine 02/26/2024 8:59 AM ANNEALER Kidney replaced by transplant Hyperlipidemia, unspecified hyperlipidemia type TACROLIMUS LEVEL, TROUGH Routine 02/26/2024 8:59 AM ANNEALER Kidney replaced by transplant Encounter for long-term (current) use of medications RENAL FUNCTION PANEL Routine 02/26/2024 8:59 AM ANNEALER Kidney replaced by transplant CBC WITH AUTO DIFFERENTIAL Routine 02/26/2024 8:59 AM ANNEALER Kidney replaced by transplant BK VIRUS, DNA, QUANTITATIVE Routine 02/26/2024 8:59 AM ANNEALER Kidney replaced by transplant POCT GLUCOSE DEVICE Routine 02/23/2024 11:43 AM ANNEALER POCT GLUCOSE DEVICE Routine 02/23/2024 8 :21 AM ANNEALER POTASSIUM, WHOLE BLOOD STAT 02/23/2024 6:38 AM ANNEALER ECG 12-LEAD STAT 02/23/2024 6:[address] ABDOMEN PELVIS WO CONTRAST IP Routine 02/23/2024 5:21 AM ANNEALER EGFR Routine 02/23/2024 4:37 AM ANNEALER DIFFERENTIAL AUTO Routine 02/23/2024 4:3 7 AM ANNEALER RENAL FUNCTION PANEL Routine 02/23/2024 4:37 AM ANNEALER CBC WITH AUTO DIFFERENTIAL Routine 02/23/2024 4:37 AM ANNEALER MAGNESIUM Routine 02/23/2024 4:37 AM ANNEALER TACROLIMUS LEVEL, TROUGH Routine 02/23/2024 4:37 AM ANNEALER POCT GLUCOSE DEVICE Routine 02/22/2024 9 :35 PM ANNEALER POCT GLUCOSE DEVICE Routine 02/22/2024 5 :37 PM ANNEALER CELL DIFFERENTIAL, BODY FLUID Routine 02/22/2024 2:26 PM ANNEALER CELL DIFFERENTIAL, BODY FLUID Routine 02/22/2024 2:26 PM ANNEALER CELL COUNT W/REFLEX DIFFERENTIAL, BODY FLUID Routine 02/22/2024 2:26 PM ANNEALER CREATININE, BODY FLUID Routine 02/22/2024 2:26 PM ANNEALER CELL COUNT W/REFLEX DIFFERENTIAL, BODY FLUID Routine 02/22/2024 2:26 PM ANNEALER AEROBIC AND ANAEROBIC CULTURE AND GRAM STAIN Routine 02/22/2024 2:26 PM ANNEALER AEROBIC AND ANAEROBIC CULTURE AND GRAM STAIN Routine 02/22/2024 2:26 PM ANNEALER CREATININE, BODY FLUID Routine 02/22/2024 2:19 PM ANNEALER POCT GLUCOSE DEVICE Routine 02/22/2024 1 :48 PM ANNEALER FLUID DRAIN SOFT TISSUE IP Routine 02/22/2024 1:14 PM ANNEALER CELL DIFFERENTIAL, BODY FLUID Routine 02/22/2024 12:50 PM ANNEALER CELL COUNT W/REFLEX DIFFERENTIAL, BODY FLUID Routine 02/22/2024 12:50 PM ANNEALER CREATININE, BODY FLUID Routine 02/22/2024 12:50 PM ANNEALER POCT GLUCOSE DEVICE Routine 02/22/2024 6 :27 AM ANNEALER POTASSIUM, WHOLE BLOOD STAT 02/22/2024 6:27 AM ANNEALER EGFR Routine 02/22/2024 4:38 AM ANNEALER DIFFERENTIAL AUTO Routine 02/22/2024 4:3 8 AM ANNEALER RENAL FUNCTION PANEL Routine 02/22/2024 4:38 AM ANNEALER CBC WITH AUTO DIFFERENTIAL Routine 02/22/2024 4:38 AM ANNEALER MAGNESIUM Routine 02/22/2024 4:38 AM ANNEALER TACROLIMUS LEVEL, TROUGH Routine 02/22/2024 4:38 AM ANNEALER POCT GLUCOSE DEVICE Routine 02/21/2024 8 :49 PM ANNEALER POCT GLUCOSE DEVICE Routine 02/21/2024 5 :26 PM ANNEALER POCT GLUCOSE DEVICE Routine 02/21/2024 2 :08 PM ANNEALER EGFR STAT 02/21/2024 2:06 PM ANNEALER DIFFERENTIAL AUTO STAT 02/21/2024 2:0 6 PM ANNEALER RENAL FUNCTION PANEL STAT 02/21/2024 2:06 PM ANNEALER PROTIME-INR STAT 02/21/2024 2:06 PM ANNEALER MAGNESIUM STAT 02/21/2024 2:06 PM ANNEALER CBC WITH AUTO DIFFERENTIAL STAT 02/21/2024 2:06 PM ANNEALER ECG 12-LEAD Routine 02/17/2024 4:29 PM ANNEALER Atrial fibrillation, unspecified type (HCC) CT ABDOMEN PELVIS WO CONTRAST Urgent 02/17/2024 11:48 AM ANNEALER Swelling abdomen EGFR Routine 02/17/2024 10:25 AM ANNEALER Kidney replaced by transplant DIFFERENTIAL AUTO Routine 02/17/2024 10:25 AM ANNEALER Kidney replaced by transplant RENAL FUNCTION PANEL Routine 02/17/2024 10:25 AM ANNEALER Kidney replaced by transplant TACROLIMUS LEVEL, RANDOM Routine 02/17/2024 10:25 AM ANNEALER Kidney replaced by transplant MAGNESIUM Routine 02/17/2024 10:25 AM ANNEALER Kidney replaced by transplant CBC WITH AUTO DIFFERENTIAL Routine 02/17/2024 10:25 AM ANNEALER Kidney replaced by transplant HEPATITIS B DNA, QUANTITATIVE, PCR Routine 02/17/2024 10:25 AM ANNEALER Kidney replaced by transplant HEPATITIS C RNA, QUANTITATIVE, PCR Routine 02/17/2024 10:25 AM ANNEALER Kidney replaced by transplant HIV-1 RNA, QUANTITATIVE, PCR Routine 02/17/2024 10:25 AM ANNEALER Kidney replaced by transplant EGFR STAT 02/11/2024 9:00 AM ANNEALER DIFFERENTIAL AUTO STAT 02/11/2024 9:0 0 AM ANNEALER TACROLIMUS LEVEL, TROUGH STAT 02/11/2024 9:00 AM ANNEALER MAGNESIUM STAT 02/11/2024 9:00 AM ANNEALER CBC WITH AUTO DIFFERENTIAL STAT 02/11/2024 9:00 AM ANNEALER RENAL FUNCTION PANEL STAT 02/11/2024 9:[address] ABDOMEN PELVIS WO CONTRAST Schedule Routine, Read Routine (OP Routine) 02/09/2024 3:42 PM ANNEALER Kidney transplanted CREATININE, BODY FLUID Routine 02/09/2024 3:29 PM ANNEALER Kidney transplanted EGFR Routine 02/09/2024 9:00 AM ANNEALER DIFFERENTIAL AUTO Routine 02/09/2024 9:0 0 AM ANNEALER TACROLIMUS LEVEL, TROUGH Routine 02/09/2024 9:00 AM ANNEALER MAGNESIUM Routine 02/09/2024 9:00 AM ANNEALER CBC WITH AUTO DIFFERENTIAL Routine 02/09/2024 9:00 AM ANNEALER RENAL FUNCTION PANEL Routine 02/09/2024 9:00 AM ANNEALER EGFR STAT 02/04/2024 8:52 AM ANNEALER DIFFERENTIAL AUTO STAT 02/04/2024 8:5 2 AM ANNEALER TACROLIMUS LEVEL, TROUGH STAT 02/04/2024 8:52 AM ANNEALER CREATININE, BODY FLUID STAT 02/04/2024 8:52 AM ANNEALER MAGNESIUM STAT 02/04/2024 8:52 AM ANNEALER CBC WITH AUTO DIFFERENTIAL STAT 02/04/2024 8:52 AM ANNEALER RENAL FUNCTION PANEL STAT 02/04/2024 8:52 AM ANNEALER EGFR Routine 02/02/2024 9:00 AM ANNEALER DIFFERENTIAL AUTO Routine 02/02/2024 9:0 0 AM ANNEALER TACROLIMUS LEVEL, TROUGH Routine 02/02/2024 9:00 AM ANNEALER MAGNESIUM Routine 02/02/2024 9:00 AM ANNEALER CBC WITH AUTO DIFFERENTIAL Routine 02/02/2024 9:00 AM ANNEALER RENAL FUNCTION PANEL Routine 02/02/2024 9:00 AM ANNEALER POCT GLUCOSE DEVICE Routine 01/28/2024 5 :58 PM ANNEALER POCT GLUCOSE DEVICE Routine 01/28/2024 12:47 PM ANNEALER POCT GLUCOSE DEVICE Routine 01/28/2024 8 :44 AM ANNEALER EGFR Routine 01/28/2024 4:15 AM ANNEALER DIFFERENTIAL AUTO Routine 01/28/2024 4:1 5 AM ANNEALER TACROLIMUS LEVEL, TROUGH Routine 01/28/2024 4:15 AM ANNEALER MAGNESIUM Routine 01/28/2024 4:15 AM ANNEALER RENAL FUNCTION PANEL Routine 01/28/2024 4:15 AM ANNEALER CBC WITH AUTO DIFFERENTIAL Routine 01/28/2024 4:15 AM ANNEALER POCT GLUCOSE DEVICE Routine 01/27/2024 9 :07 PM ANNEALER POCT GLUCOSE DEVICE Routine 01/27/2024 5 :55 PM ANNEALER ECG 12-LEAD Routine 01/27/2024 3:35 PM ANNEALER POCT GLUCOSE DEVICE Routine 01/27/2024 12:24 PM ANNEALER EGFR Routine 01/27/2024 4:17 AM ANNEALER DIFFERENTIAL AUTO Routine 01/27/2024 4:1 7 AM ANNEALER TACROLIMUS LEVEL, TROUGH Routine 01/27/2024 4:17 AM ANNEALER MAGNESIUM Routine 01/27/2024 4:17 AM ANNEALER RENAL FUNCTION PANEL Routine 01/27/2024 4:17 AM ANNEALER CBC WITH AUTO DIFFERENTIAL Routine 01/27/2024 4:17 AM ANNEALER POCT GLUCOSE DEVICE Routine 01/26/2024 7 :59 PM ANNEALER POCT GLUCOSE DEVICE Routine 01/26/2024 5 :15 PM ANNEALER POCT GLUCOSE DEVICE Routine 01/26/2024 1 :48 PM ANNEALER HEMODIALYSIS Routine 01/26/2024 12:43 PM ANNEALER POCT GLUCOSE DEVICE Routine 01/26/2024 12:06 PM ANNEALER TRANSFUSE RED BLOOD CELLS Timed 01/26/2024 9:00 AM ANNEALER POCT GLUCOSE DEVICE Routine 01/26/2024 8 :25 AM ANNEALER TYPE AND SCREEN Timed 01/26/2024 6:19 AM ANNEALER PREPARE RBC Timed 01/26/2024 5:41 AM ANNEALER EGFR Routine 01/26/2024 4:39 AM ANNEALER DIFFERENTIAL AUTO Routine 01/26/2024 4:3 9 AM ANNEALER TACROLIMUS LEVEL, TROUGH Routine 01/26/2024 4:39 AM ANNEALER MAGNESIUM Routine 01/26/2024 4:39 AM ANNEALER RENAL FUNCTION PANEL Routine 01/26/2024 4:39 AM ANNEALER CBC WITH AUTO DIFFERENTIAL Routine 01/26/2024 4:39 AM ANNEALER POCT GLUCOSE DEVICE Routine 01/25/2024 9 :33 PM ANNEALER TROPONIN I HIGH-SENSITIVITY 6-HOUR Timed 01/25/2024 7:51 PM ANNEALER TROPONIN I HIGH-SENSITIVITY 4-HOUR Timed 01/25/2024 6:00 PM ANNEALER POCT GLUCOSE DEVICE Routine 01/25/2024 5 :49 PM ANNEALER TROPONIN I HIGH-SENSITIVITY 2-HOUR Timed 01/25/2024 3:44 PM ANNEALER XR CHEST 1 VIEW ED Urgent/IP Urgent 01/25/2024 2:52 PM ANNEALER CBC WITHOUT DIFFERENTIAL STAT 01/25/2024 2:42 PM ANNEALER TROPONIN I HIGH-SENSITIVITY STAT 01/25/2024 2:05 PM ANNEALER CRITICAL RESULT CALLBACK CARDIO CHEM Routine 01/25/2024 1:46 PM ANNEALER TROPONIN I HIGH-SENSITIVITY SERIES (BASELINE, 2HR, 4HR, 6HR) Routine 01/25/2024 1:46 PM ANNEALER ECG 12-LEAD STAT 01/25/2024 1:31 PM ANNEALER CREATININE, BODY FLUID Routine 01/25/2024 1:15 PM ANNEALER POCT GLUCOSE DEVICE Routine 01/25/2024 12:46 PM ANNEALER POCT GLUCOSE DEVICE Routine 01/25/2024 11:13 AM ANNEALER CENTRAL LINE PLACEMENT > 5 YEARS IP Routine 01/25/2024 10:26 AM ANNEALER POCT GLUCOSE DEVICE Routine 01/25/2024 7 :40 AM ANNEALER DIFFERENTIAL AUTO Routine 01/25/2024 5:0 7 AM ANNEALER EGFR Routine 01/25/2024 5:07 AM ANNEALER TACROLIMUS LEVEL, TROUGH Routine 01/25/2024 5:07 AM ANNEALER MAGNESIUM Routine 01/25/2024 5:07 AM ANNEALER RENAL FUNCTION PANEL Routine 01/25/2024 5:07 AM ANNEALER CBC WITH AUTO DIFFERENTIAL Routine 01/25/2024 5:07 AM ANNEALER POCT GLUCOSE DEVICE Routine 01/24/2024 8 :58 PM ANNEALER POCT GLUCOSE DEVICE Routine 01/24/2024 4 :57 PM ANNEALER POCT GLUCOSE DEVICE Routine 01/24/2024 11:41 AM ANNEALER POCT GLUCOSE DEVICE Routine 01/24/2024 7 :32 AM ANNEALER DIFFERENTIAL AUTO Routine 01/24/2024 5:0 6 AM ANNEALER EGFR Routine 01/24/2024 5:06 AM ANNEALER TACROLIMUS LEVEL, TROUGH Routine 01/24/2024 5:06 AM ANNEALER MAGNESIUM Routine 01/24/2024 5:06 AM ANNEALER RENAL FUNCTION PANEL Routine 01/24/2024 5:06 AM ANNEALER CBC WITH AUTO DIFFERENTIAL Routine 01/24/2024 5:06 AM ANNEALER POCT GLUCOSE DEVICE Routine 01/23/2024 9 :19 PM ANNEALER POCT GLUCOSE DEVICE Routine 01/23/2024 5 :44 PM ANNEALER POCT GLUCOSE DEVICE Routine 01/23/2024 12:11 PM ANNEALER HEMODIALYSIS Routine 01/23/2024 8:43 AM ANNEALER POCT GLUCOSE DEVICE Routine 01/23/2024 8 :18 AM ANNEALER TROPONIN I HIGH-SENSITIVITY Routine 01/23/2024 6:12 AM ANNEALER CBC WITH AUTO DIFFERENTIAL Routine 01/23/2024 2:42 AM ANNEALER EGFR Routine 01/23/2024 2:42 AM ANNEALER DIFFERENTIAL AUTO Routine 01/23/2024 2:4 2 AM ANNEALER TACROLIMUS LEVEL, TROUGH Routine 01/23/2024 2:42 AM ANNEALER MAGNESIUM Routine 01/23/2024 2:42 AM ANNEALER RENAL FUNCTION PANEL Routine 01/23/2024 2:42 AM ANNEALER TROPONIN I HIGH-SENSITIVITY Routine 01/23/2024 2:41 AM ANNEALER ECG 12-LEAD STAT 01/23/2024 1:02 AM ANNEALER DIFFERENTIAL AUTO Routine 01/22/2024 11:14 PM ANNEALER TROPONIN I HIGH-SENSITIVITY Routine 01/22/2024 11:14 PM ANNEALER TROPONIN I HIGH-SENSITIVITY Routine 01/22/2024 11:14 PM ANNEALER TYPE AND SCREEN Timed 01/22/2024 11:14 PM ANNEALER TACROLIMUS LEVEL, TROUGH Routine 01/22/2024 11:14 PM ANNEALER CBC WITH AUTO DIFFERENTIAL Routine 01/22/2024 11:14 PM ANNEALER XR CHEST 1 VIEW ED Urgent/IP Urgent 01/22/2024 8:41 PM ANNEALER POCT GLUCOSE DEVICE Routine 01/22/2024 8 :07 PM ANNEALER POCT GLUCOSE DEVICE Routine 01/22/2024 6 :42 PM ANNEALER TROPONIN I HIGH-SENSITIVITY 6-HOUR Timed 01/22/2024 6:40 PM ANNEALER TRANSFUSE RED BLOOD CELLS Timed 01/22/2024 6:15 PM ANNEALER TRANSTHORACIC ECHO (TTE) COMPLETE W DOPPLER/CF W CONTRAST STAT 01/22/2024 5:31 PM ANNEALER TYPE AND SCREEN Timed 01/22/2024 4:14 PM ANNEALER TROPONIN I HIGH-SENSITIVITY 4-HOUR Timed 01/22/2024 4:14 PM ANNEALER ECG 12-LEAD STAT 01/22/2024 3:39 PM ANNEALER CBC WITHOUT DIFFERENTIAL STAT 01/22/2024 2:07 PM ANNEALER ECG 12-LEAD Routine 01/22/2024 12:59 PM ANNEALER CRITICAL RESULT CALLBACK CARDIO CHEM Routine 01/22/2024 12:18 PM ANNEALER EGFR STAT 01/22/2024 12:18 PM ANNEALER TROPONIN I HIGH-SENSITIVITY SERIES (BASELINE, 2HR, 4HR, 6HR) Routine 01/22/2024 12:18 PM ANNEALER PHOSPHORUS STAT 01/22/2024 12:18 PM ANNEALER MAGNESIUM STAT 01/22/2024 12:18 PM ANNEALER BASIC METABOLIC PANEL STAT 01/22/2024 12:18 PM ANNEALER POCT GLUCOSE DEVICE Routine 01/22/2024 11:35 AM ANNEALER XR ABDOMEN AP 1 VIEW IP Routine 01/22/2024 10:29 AM ANNEALER MA AN PROCEDURE PLACEHOLDER Routine 01/22/2024 9:42 AM ANNEALER MA AN ELECTIVE ENDOTRACHEAL AIRWAY Routine 01/22/2024 9:42 AM ANNEALER RE-EXPLORATION KIDNEY TRANSPLANT 01/22/2024 9:18 AM ANNEALER -donor kidney transplant recipient Case Notes 01/[email or web address]- Ace Bennett via phone call dos 01/21 kristal time sensitive - DMF EGFR STAT 01/22/2024 9:02 AM ANNEALER BASIC METABOLIC PANEL STAT 01/22/2024 9:02 AM ANNEALER POCT GLUCOSE DEVICE Routine 01/22/2024 9 :01 AM ANNEALER POCT GLUCOSE DEVICE Routine 01/22/2024 8 :26 AM ANNEALER LACTATE DEHYDROGENASE Routine 01/22/2024 4:58 AM ANNEALER HAPTOGLOBIN Routine 01/22/2024 4:58 AM ANNEALER EGFR Routine 01/22/2024 4:58 AM ANNEALER DIFFERENTIAL AUTO Routine 01/22/2024 4:5 8 AM ANNEALER TACROLIMUS LEVEL, TROUGH Routine 01/22/2024 4:58 AM ANNEALER MAGNESIUM Routine 01/22/2024 4:58 AM ANNEALER RENAL FUNCTION PANEL Routine 01/22/2024 4:58 AM ANNEALER CBC WITH AUTO DIFFERENTIAL Routine 01/22/2024 4:58 AM ANNEALER POCT GLUCOSE DEVICE Routine 01/21/2024 8 :34 PM ANNEALER POCT GLUCOSE DEVICE Routine 01/21/2024 6 :37 PM ANNEALER POTASSIUM, WHOLE BLOOD STAT 01/21/2024 4:22 PM ANNEALER CBC WITHOUT DIFFERENTIAL STAT 01/21/2024 1:51 PM ANNEALER POCT GLUCOSE DEVICE Routine 01/21/2024 12:26 PM ANNEALER MA AN PROCEDURE PLACEHOLDER Routine 01/21/2024 10:41 AM ANNEALER HEMODIALYSIS Routine 01/21/2024 9:39 AM ANNEALER POTASSIUM LEVEL Timed 01/21/2024 8:39 AM ANNEALER POCT GLUCOSE DEVICE Routine 01/21/2024 8 :10 AM ANNEALER POCT GLUCOSE DEVICE Routine 01/21/2024 6 :47 AM ANNEALER POCT GLUCOSE DEVICE Routine 01/21/2024 5 :46 AM ANNEALER POTASSIUM, WHOLE BLOOD STAT 01/21/2024 5:22 AM ANNEALER ECG 12-LEAD STAT 01/21/2024 5:17 AM ANNEALER EGFR Routine 01/21/2024 4:18 AM ANNEALER CRITICAL RESULT CALLBACK CHEMISTRY Routine 01/21/2024 4:18 AM ANNEALER DIFFERENTIAL AUTO Routine 01/21/2024 4:1 8 AM ANNEALER TACROLIMUS LEVEL, TROUGH Routine 01/21/2024 4:18 AM ANNEALER MAGNESIUM Routine 01/21/2024 4:18 AM ANNEALER RENAL FUNCTION PANEL Routine 01/21/2024 4:18 AM ANNEALER CBC WITH AUTO DIFFERENTIAL Routine 01/21/2024 4:18 AM ANNEALER US RENAL TRANSPLANT W DOPPLERS ED Urgent/IP Urgent 01/20/2024 11:24 PM ANNEALER POCT GLUCOSE DEVICE Routine 01/20/2024 8 :56 PM ANNEALER XR CHEST 1 VIEW ED Urgent/IP Urgent 01/20/2024 5:58 PM ANNEALER EGFR STAT 01/20/2024 5:08 PM ANNEALER RENAL FUNCTION PANEL STAT 01/20/2024 5:08 PM ANNEALER CBC WITHOUT DIFFERENTIAL STAT 01/20/2024 5:08 PM ANNEALER POCT GLUCOSE DEVICE Routine 01/20/2024 4 :51 PM ANNEALER POC BLOOD GAS AND CHEMISTRIES, ARTERIAL Routine 01/20/2024 4:23 PM ANNEALER TRANSFUSE RED BLOOD CELLS Timed 01/20/2024 3:54 PM ANNEALER POC BLOOD GAS AND CHEMISTRIES, ARTERIAL Routine 01/20/2024 3:09 PM ANNEALER POCT GLUCOSE DEVICE Routine 01/20/2024 2 :41 PM ANNEALER ANESTHESIA CENTRAL VENOUS LINE PLACEMENT Routine 01/20/2024 2:37 PM ANNEALER ANESTHESIA INTUBATION Routine 01/20/2024 1:37 PM ANNEALER TRANSPLANT KIDNEY 01/20/2024 12:46 PM ANNEALER ESRD (end stage renal disease) (CMS/HCC) ([facility]) Case Notes ORT TIME: TBDUNOS#[id number]:MWOBMatch ID#: [id number] Group:OTransplant Coordinator: Mervat [phone] POCT GLUCOSE DEVICE Routine 01/20/2024 11:12 AM ANNEALER HLA DONOR SPECIFIC ANTIBODY REPORT 01/20/2024 7:31 AM ANNEALER EGFR Routine 01/20/2024 12:08 AM ANNEALER BASIC METABOLIC PANEL Routine 01/20/2024 12:08 AM ANNEALER HEMODIALYSIS Routine 01/19/2024 6:44 PM ANNEALER XR ANKLE RIGHT 3 OR MORE VIEWS IP Routine 01/19/2024 12:37 PM ANNEALER XR TIBIA FIBULA RIGHT2 VIEWS IP Routine 01/19/2024 12:37 PM ANNEALER URINE CULTURE Routine 01/19/2024 8:50 AM ANNEALER PREPARE RBC Timed 01/19/2024 6:31 AM ANNEALER HLA CROSSMATCH REPORT 01/18/2024 11:43 PM ANNEALER HLA ANTIBODY SCREEN - SAB (CLASS I AND CLASS II) Routine 01/18/2024 11:43 PM ANNEALER HLA CROSSMATCH, ALLO STAT 01/18/2024 11:43 PM ANNEALER HLA ANTIBODY SCREEN BY PRA OR SAB PER SCHEDULE (CLASS I AND CLASS II) STAT 01/18/2024 11:43 PM ANNEALER XR CHEST 1 VIEW ED Urgent/IP Urgent 01/18/2024 11:41 PM ANNEALER EGFR STAT 01/18/2024 10:50 PM ANNEALER DIFFERENTIAL AUTO STAT 01/18/2024 10:50 PM ANNEALER HLA ANTIBODY SCREEN BY PRA STAT 01/18/2024 10:50 PM ANNEALER IRON PROFILE W/ IBC Routine 01/18/2024 10:50 PM ANNEALER LIPID PANEL Routine 01/18/2024 10:50 PM ANNEALER URIC ACID Routine 01/18/2024 10:50 PM ANNEALER HEMOGLOBIN A1C Routine 01/18/2024 10:50 PM ANNEALER FERRITIN Routine 01/18/2024 10:50 PM ANNEALER TYPE AND SCREEN STAT 01/18/2024 10:50 PM ANNEALER PHOSPHORUS STAT 01/18/2024 10:50 PM ANNEALER PROTIME-INR STAT 01/18/2024 10:50 PM ANNEALER COMPREHENSIVE METABOLIC PANEL STAT 01/18/2024 10:50 PM ANNEALER CBC WITH AUTO DIFFERENTIAL STAT 01/18/2024 10:50 PM ANNEALER APTT STAT 01/18/2024 10:50 PM ANNEALER HIV 1/2 ANTIBODY PLUS P24 ANTIGEN Routine 01/18/2024 10:50 PM ANNEALER HEPATITIS C RNA, QUANTITATIVE, PCR Routine 01/18/2024 10:50 PM ANNEALER HEPATITIS C ANTIBODY Routine 01/18/2024 10:50 PM ANNEALER HEPATITIS B SURFACE ANTIGEN Routine 01/18/2024 10:50 PM ANNEALER HEPATITIS B SURFACE ANTIBODY (IMMUNE STATUS) Routine 01/18/2024 10:50 PM ANNEALER HEPATITIS B CORE ANTIBODY, TOTAL Routine 01/18/2024 10:[address] CHEST WO CONTRAST F/U LUNG SCREEN PROTOCOL Schedule Routine, Read Routine (OP Routine) 01/13/2024 3:[address] lung screening PSA SCREEN Routine 09/17/2023 7:43 AM CDT ESRD (end stage renal disease) (CMS/HCC) (HCC) Pre-transplant evaluation for kidney transplant from Last 3 Months or Most Recently Relevant to Health Maintenance Results * (ABNORMAL) eGFR (04/19/2024 10:42 AM ANNEALER) Pathologist [facility] eGFR 24(L) >=60 mL/min/1. 73 m2 Comment: [...] reviewed 2020. Blood 04/19/2024 10:4 2 AM ANNEALER 04/19/2024 11:14 AM ANNEALER us Jack Morrison MD LAB BLOOD ORDERABLES Final R esult [facility] Department [place] [address] * (ABNORMAL) Differential, auto (04/19/2024 10:42 AM ANNEALER) Pathologist [facility] Neutrophil abs 13.1(H) 1.5 - 6.5 K/cumm Imm gran abs 0.9(H) 0.0 - 0.1 K/cumm [facility] Lymphocyte abs 0.3(L) 0.8 - 3.3 K/cumm [facility] Monocyte abs 0.6 0.2 - 0.8 K/cumm [facility] Eosinophil abs 0.0 0.0 - 0.5 K/cumm [facility] Basophil abs 0.1 0.0 - 0.1 K/cumm [facility] Neutrophil pct 87.8 % [facility] Comment: Interpretive Data Percent cell count reference ranges are not reported, since discordance with absolute values may lead to misinterpretation of CBC data. Current Interpretive Data was last revised on 2017. Imm gran pct 5.8 % [facility] Comment: Interpretive Data Percent cell count reference ranges are not reported, since discordance with absolute values may lead to misinterpretation of CBC data. Current Interpretive Data was last revised on 2017. Lymphocyte pct 1.8 % [facility] Comment: Interpretive Data Percent cell count reference ranges are not reported, since discordance with absolute values may lead to misinterpretation of CBC data. Current Interpretive Data was last revised on 2017. Monocyte pct 4.0 % [facility] Comment: Interpretive Data Percent cell count reference ranges are not reported, since discordance with absolute values may lead to misinterpretation of CBC data. Current Interpretive Data was last revised on 2017. Eosinophil pct 0.1 % [facility] Comment: Interpretive Data Percent cell count reference ranges are not reported, since discordance with absolute values may lead to misinterpretation of CBC data. Current Interpretive Data was last revised on 2017. Basophil pct 0.5 % [facility] Comment: Interpretive Data Percent cell count reference ranges are not reported, since discordance with absolute values may lead to misinterpretation of CBC data. Current Interpretive Data was last revised on 2017. Blood 04/19/2024 10:4 2 AM ANNEALER 04/19/2024 11:14 AM ANNEALER us Jack Morrison MD LAB BLOOD ORDERABLES Final R esult [facility] Department of Laboratories [place], [place] [id number] * Tacrolimus level trough (04/19/2024 10:42 AM ANNEALER) Pathologist [facility] Tacrolimus trough 7.7 ng/mL Comment: Interpretive Data Testing performed by liquid chromatography-tandem mass spectrometry. Therapeutic concentrations vary depending on type of transplanted organ and time elapsed since transplant. Typical trough concentrations range from 5-15 ng/mL. This test was developed and its performance characteristics determined by the [facility] consistent with CLIA requirements. This test has not been cleared or approved by the [place] Food and Drug administration. Current interpretive data last reviewed 2019. Blood 04/19/2024 10:4 2 AM ANNEALER 04/19/2024 11:14 AM ANNEALER Jack Morrison MD LAB BLOOD ORDERABLES Final R esult [facility] Department [place] [address] * (ABNORMAL) CBC with auto differential (04/19/2024 10:42 AM ANNEALER) WBC 14.9(H) 3.8 - 9.9 K/cumm Hgb 11.6(L) 13.0 - 17.5 g/dL [facility] Hct 35.5(L) 38.9 - 50.3 % [facility] Plt 281 150 - 400 K/cumm [facility] MPV 10.2 9.1 - 12.3 fL [facility] RBC 3.79(L) 4.30 - 5.80 M/cumm [facility] MCV 93.7 81.3 - 96.4 fL [facility] MCH 30.6 27.1 - 33.3 pg [facility] MCHC 32.7 32.3 - 35.7 g/dL [facility] RDW CV 13.5 11.1 - 14.9 % [facility] RDW SD 45.1 35.7 - 48.1 fL [facility] NRBC abs 0.00 0.00 - 0.01 K/cumm [facility] Blood 04/19/2024 10:4 2 AM ANNEALER 04/19/2024 11:14 AM ANNEALER Jack Morrison MD LAB BLOOD ORDERABLES Final R esult [facility] Department [place] [address] * (ABNORMAL) Renal function panel (04/19/2024 10:42 AM ANNEALER) Pathologist [facility] Sodium 138 135 - 145 mmol/L Potassium, pl 4.7 3.3 - 4.9 mmol/L [facility] Chloride 99 97 - 110 mmol/L [facility] CO2 29 22 - 32 mmol/L [facility] Anion gap 10 2 - 15 mmol/L [facility] BUN 38(H) 6 - 25 mg/dL [facility] Creatinine 2.80(H) 0.80 - 1.30 mg/dL [facility] Glucose 125 70 - 199 mg/dL [facility] Comment: Interpretive Data Fasting glucose >/= [...] Calcium 10.7(H) 8.5 - 10.3 mg/dL [facility] Phosphorus, pl 2.5 2.3 - 4.5 mg/dL [facility] Albumin 3.9 3.5 - 5.0 g/dL [facility] Blood 04/19/2024 10:4 2 AM ANNEALER 04/19/2024 11:14 AM ANNEALER us Jack Morrison MD LAB BLOOD ORDERABLES Final R esult [facility] Department [place] [address] * (ABNORMAL) Differential, auto (04/06/2024 11:42 AM ANNEALER) Pathologist [facility] Neutrophil abs 9.1(H) 1.5 - 6.5 K/cumm Imm gran abs 0.7(H) 0.0 - 0.1 K/cumm [facility] Lymphocyte abs 0.2(L) 0.8 - 3.3 K/cumm [facility] Monocyte abs 0.5 0.2 - 0.8 K/cumm [facility] Eosinophil abs 0.0 0.0 - 0.5 K/cumm [facility] Basophil abs 0.0 0.0 - 0.1 K/cumm [facility] Neutrophil pct 86.6 % [facility] Comment: Interpretive Data Percent cell count reference ranges are not reported, since discordance with absolute values may lead to misinterpretation of CBC data. Current Interpretive Data was last revised on 2017. Imm gran pct 6.5 % [facility] Comment: Interpretive Data Percent cell count reference ranges are not reported, since discordance with absolute values may lead to misinterpretation of CBC data. Current Interpretive Data was last revised on 2017. Lymphocyte pct 1.4 % [facility] Comment: Interpretive Data Percent cell count reference ranges are not reported, since discordance with absolute values may lead to misinterpretation of CBC data. Current Interpretive Data was last revised on 2017. Monocyte pct 4.9 % [facility] Comment: Interpretive Data Percent cell count reference ranges are not reported, since discordance with absolute values may lead to misinterpretation of CBC data. Current Interpretive Data was last revised on 2017. Eosinophil pct 0.3 % [facility] Comment: Interpretive Data Percent cell count reference ranges are not reported, since discordance with absolute values may lead to misinterpretation of CBC data. Current Interpretive Data was last revised on 2017. Basophil pct 0.3 % [facility] Comment: Interpretive Data Percent cell count reference ranges are not reported, since discordance with absolute values may lead to misinterpretation of CBC data. Current Interpretive Data was last revised on 2017. Blood 04/06/2024 11:4 2 AM ANNEALER 04/06/2024 11:58 AM ANNEALER Aurea Erendira Bixby CONDOMINIUM MANAGER LAB BLOOD ORDERABLES Final Result Performing Organization Address [facility] Co de Phone Number [facility] Department [place] [address] * (ABNORMAL) CBC with auto differential (04/06/2024 11:42 AM ANNEALER) [facility] WBC 10.5(H) 3.8 - 9.9 K/cumm Hgb 11.5(L) 13.0 - 17.5 g/dL [facility] Hct 34.3(L) 38.9 - 50.3 % [facility] Plt 251 150 - 400 K/cumm [facility] MPV 10.1 9.1 - 12.3 fL [facility] RBC 3.60(L) 4.30 - 5.80 M/cumm [facility] MCV 95.3 81.3 - 96.4 fL [facility] MCH 31.9 27.1 - 33.3 pg [facility] MCHC 33.5 32.3 - 35.7 g/dL [facility] RDW CV 12.8 11.1 - 14.9 % [facility] RDW SD 44.4 35.7 - 48.1 fL [facility] NRBC abs 0.00 0.00 - 0.01 K/cumm [facility] Blood 04/06/2024 11:4 2 AM ANNEALER 04/06/2024 11:58 AM ANNEALER Aurea Fine CONDOMINIUM MANAGER LAB BLOOD ORDERABLES Final Result Performing Organization Address [facility] Co de Phone Number [facility] Department [place] [address] * (ABNORMAL) Respiratory pathogen panel Nasopharyngeal (04/06/2024 11:41 AM ANNEALER) [facility] Influenza A RNA Not Detected Not Detected Influenza B RNA Not Detected Not Detected [facility] RSV RNA Not Detected Not Detected [facility] COVID-19 RNA Not Detected Not Detected [facility] Coronavirus 229E RNA Not Detected Not Detected [facility] Coronavirus HKU1 RNA Not Detected Not Detected [facility] Coronavirus NL63 RNA Not Detected Not Detected [facility] Coronavirus OC43 RNA Not Detected Not Detected [facility] Adenovirus DNA Not Detected Not Detected [facility] Metapneumovirus RNA Not Detected Not Detected [facility] Rhinovirus/Enterov irus RNA Detected(A) Not Detected [facility] Parainfluenza 1 RNA Not Detected Not Detected [facility] Parainfluenza 2 RNA Not Detected Not Detected [facility] Parainfluenza 3 RNA Not Detected Not Detected [facility] Parainfluenza 4 RNA Not Detected Not Detected [facility] B. pertussis DNA Not Detected Not Detected [facility] B. parapertussis DNA Not Detected Not Detected [facility] C. pneumoniae DNA Not Detected Not Detected [facility] M. pneumoniae DNA Not Detected Not Detected [facility] Nasopharyngeal 04/06/2024 11 :41 AM ANNEALER 04/06/2024 12:10 PM ANNEALER Narrative [facility] - 04/06/2024 1:15 PM ANNEALER Is the Patient experiencing symptoms consistent with COVID?->Unknown Surveillance testing for transplant patient?->No Interpretive Data [employer] FilmArray Respiratory Panel (RP2.1) assay is a [...] assay has FDA clearance for testing of CONDOMINIUM MANAGER swabs. The performance of additional specimen types has been assessed by the performing laboratory. The performance characteristics of this assay have been determined by [facility]. Current interpretive data was last revised on 21. Aurea Fine CONDOMINIUM MANAGER LAB MICROBIOLOGY - GENERAL ORDERABLES Final Result [facility] Department [place] [address] * XR Chest PA Lateral 2 Views (04/06/2024 11:28 AM ANNEALER) Anatomical Region Laterality Modality Body, Chest N/A Computed Radiogr aphy 04/06/2024 11:4 3 AM ANNEALER Impressions 04/06/2024 6:32 PM ANNEALER FINDINGS/IMPRESSION: Sternotomy plates and wires overlie the chest. Lungs are clear. No pleural effusion or pneumothorax. Cardiac mediastinal silhouette is stable when compared to prior radiograph. Dictated by: Giorgi Rincon MD The radiology attending physician has personally reviewed this study, and had reviewed and/or edited this written report and agrees with it. Electronically signed by: Larry Red M.D. Narrative 04/06/2024 6:32 PM ANNEALER EXAMINATION: XR CHEST PA LATERAL 2 VIEWS [...] signed by: Larry Red M.D. Aurea Fine NP IMG XR PROCEDURES Final Re sult * (ABNORMAL) POCT urinalysis dipstick (04/06/2024 10:35 AM ANNEALER) Pathologist [facility] Glucose, ur, POC Negative Negative MG/DL Bilirubin, ur, POC Negative Negative, Small, Moderate, Large Ketones, ur, POC Negative Negative Specific [place], POC 1.025 1.003 - 1.030 Blood, ur, POC Negative Negative pH, ur, POC 5.5 5.0 - 8.0 Protein, ur, POC 1+(A) Negative Urobilinogen, urine, POC 0.2 0.2 - 1.0 mg/dL Nitrite, ur, POC Negative Negative Leukocytes, ur, POC 1+(A) Negative Lot Number [id number] Urine 04/06/2024 10:3 5 AM ANNEALER Aurea Fine NP POINT OF CARE TEST ORDERAB LES Final Result * BK virus, DNA, quantitative Blood (04/05/2024 9:00 AM ANNEALER) Pathologist [facility] BK Virus DNA, PCR Negative Negative IU/mL [facility] - 01 Comment: No BK DNA detected. The linear range of the assay is 22 - 100,000,000 IU/mL. Blood 04/05/2024 9:00 AM ANNEALER 04/05/2024 Narrative [facility] - 04/07/2024 2:09 PM ANNEALER Performed at: 01 - [address] [id number] Agronomy Manager: Agustina Tyler MD, Phone: [phone] Jack Morrison MD LAB MICROBIOLOGY - GENERAL O RDERABLES Final Result Performing Organization Address [facility] de Phone Number [facility] - * Tacrolimus level trough (04/05/2024 8:59 AM ANNEALER) Pathologist [facility] Tacrolimus (FK506), Blood 11.7 5.0 - 20.0 [...] reference interval change Blood 04/05/2024 8:59 AM ANNEALER 04/05/2024 Narrative [facility] - 04/07/2024 8:07 PM ANNEALER Test(s) 543604-[id number] (FK506), Blood was developed and its performance characteristics determined by [facility]. It has not been cleared or approved by the Food and Drug Administration. Performed at: [address] [id number] Agronomy Manager: Agustina Tyler MD, Phone: [phone] Jack Morrison MD LAB BLOOD ORDERABLES Final R esult Performing Organization Address [facility] Co de Phone Number [facility] - * (ABNORMAL) Renal function panel (04/05/2024 8:58 AM ANNEALER) Glucose 129(H) 70 - 99 mg/dL [facility] [...] [facility] - 01 Blood 04/05/2024 8:58 AM ANNEALER 04/05/2024 Narrative [facility] - 04/06/2024 4:07 AM ANNEALER Performed at: [address] [id number] Agronomy Manager: Prabhjot Trammell PhD, Phone: [phone] us Jack Morrison MD LAB BLOOD ORDERABLES Final R esult [facility] - 01 * (ABNORMAL) Renal function panel (04/05/2024 8:57 AM ANNEALER) Glucose 124(H) 70 - 99 mg/dL [facility] [...] [facility] - 01 Blood 04/05/2024 8:57 AM ANNEALER 04/05/2024 Narrative [facility] - 04/06/2024 4:07 AM ANNEALER Performed at: [address] [id number] Agronomy Manager: Prabhjot Trammell PhD, Phone: [phone] Jack Morrison MD LAB BLOOD ORDERABLES Final R esult Performing Organization Address [facility] Co de Phone Number [facility] - * BK virus, DNA, quantitative Blood (03/29/2024 11:28 AM ANNEALER) Pathologist [facility] BK Virus DNA, PCR Negative Negative IU/mL [facility] - Comment: No BK DNA detected. The linear range of the assay is 22 - 100,000,000 IU/mL. Blood 03/29/2024 11:2 8 AM ANNEALER 03/29/2024 Narrative [facility] - 03/31/2024 2:09 PM ANNEALER Performed at: [address] [place] [id number] Agronomy Manager: Agustina Tyler MD, Phone: [phone] Jack Morrison MD LAB MICROBIOLOGY - GENERAL O RDERABLES Final Result [facility] - 01 * Tacrolimus level trough (03/29/2024 11:27 AM ANNEALER) Tacrolimus (FK506), Blood 4.6 2.0 - 20.0 ng/mL [facility] - Comment: Trough (immediately following transplant) 15.0 Trough (steady state, 2 weeks or more after transplant): 3.0 - 8.0 Performed by LC-MS/MS technology. Effective April 02, 2024 the reference interval for Tacrolimus will be updated to: 5.0 - 20.0 ng/mL Blood 03/29/2024 11:2 7 AM ANNEALER 03/29/2024 Narrative [facility] - 04/01/2024 4:09 PM ANNEALER Test(s) [id number] (FK506), Blood was developed and its performance characteristics determined by [facility]. It has not been cleared or approved by the Food and Drug Administration. Performed at: [address] [id number] Agronomy Manager: Agustina Tyler MD, Phone: [phone] us Jack Morrison MD LAB BLOOD ORDERABLES Final R esult [facility] - * (ABNORMAL) CBC with auto differential (03/29/2024 11:26 AM ANNEALER) WBC 4.7 3.4 - 10.8 x10E3/uL [facility] [...] was performed. Blood 03/29/2024 11:2 6 AM ANNEALER 03/29/2024 Narrative [facility] - 03/30/2024 3:07 AM ANNEALER Performed at: 01 - [facility] [id number] Agronomy Manager: Prabhjot Trammell PhD, Phone: [phone] Jack Morrison MD LAB BLOOD ORDERABLES Final R esult [facility] 01 * (ABNORMAL) Renal function panel (03/29/2024 11:25 AM ANNEALER) Glucose 113(H) 70 - 99 mg/dL [facility] [...] - 01 Blood 03/29/2024 11:2 5 AM ANNEALER 03/29/2024 Narrative [facility] - 03/30/2024 2:09 PM ANNEALER Performed at: [address] [id number] Agronomy Manager: Prabhjot Trammell PhD, Phone: [phone] Jack Morrsion MD LAB BLOOD ORDERABLES Final R esult Performing Organization Address [facility] Co de Phone Number [facility] - * BK virus, DNA, quantitative Blood (03/23/2024 12:07 PM ANNEALER) [facility] BK Virus DNA, PCR Negative Negative IU/mL [facility] - Comment: No BK DNA detected. The linear range of the assay is 22 - 100,000,000 IU/mL. Blood 03/23/2024 12:0 7 PM ANNEALER 03/23/2024 Narrative [facility] - 03/25/2024 12:09 PM ANNEALER Performed at: [address] [id number] Agronomy Manager: Agustina Tyler MD, Phone: [phone] Jack Morrison MD LAB MICROBIOLOGY - GENERAL O RDERABLES Final Result Performing Organization Address [facility] de Phone Number [facility] - * Tacrolimus level trough (03/23/2024 12:06 PM ANNEALER) [facility] Tacrolimus (FK506), Blood 5.9 2.0 - 20.0 ng/mL [facility] - Comment: Trough (immediately following transplant) 15.0 Trough (steady state, 2 weeks or more after transplant): 3.0 - 8.0 Performed by LC-MS/MS technology. Effective April 02, 2024 the reference interval for Tacrolimus will be updated to: 5.0 - 20.0 ng/mL Blood 03/23/2024 12:0 6 PM ANNEALER 03/23/2024 Narrative [facility] - 03/26/2024 8:07 PM ANNEALER Test(s) [id number] (FK506), Blood was developed and its performance characteristics determined by [facility]. It has not been cleared or approved by the Food and Drug Administration. Performed at: - [facility] [address] [id number] Agronomy Manager: Agustina Tyler MD, Phone: [phone] us Jack Morrison MD LAB BLOOD ORDERABLES Final R esult [facility] - 01 * (ABNORMAL) CBC with auto differential (03/23/2024 12:05 PM ANNEALER) WBC 7.0 3.4 - 10.8 x10E3/uL [facility] [...] clinical significance.) Blood 03/23/2024 12:0 5 PM ANNEALER 03/23/2024 Narrative [facility] - 03/24/2024 6:09 AM ANNEALER Performed at: - [address] [id number] Agronomy Manager: Prabhjot Trammell PhD, Phone: [phone] us Jack Morrison MD LAB BLOOD ORDERABLES Final R esult [facility] 01 * (ABNORMAL) Renal function panel (03/23/2024 12:04 PM ANNEALER) Glucose 115(H) 70 - 99 mg/dL [facility] [...] - 01 Blood 03/23/2024 12:0 4 PM ANNEALER 03/23/2024 Narrative [facility] - 03/24/2024 9:36 AM ANNEALER Performed at: - [facility] [address], [place], [place] [id number] Agronomy Manager: Prabhjot Trammell PhD, Phone: [phone] us Jack Morrison MD LAB BLOOD ORDERABLES Final R esult [facility] - 01 * IR Inject Abscess Catheter (03/22/2024 10:05 AM ANNEALER) Anatomical Region Laterality Modality Body N/A Radio Fluoroscop y 03/22/2024 10:1 6 AM ANNEALER Impressions 03/22/2024 10:16 AM ANNEALER Resolved collection with no evidence of fistula to adjacent structures. Catheter was removed. PLAN: Advise patient to monitor for any new symptoms. He will follow up with us as needed. If questions arise, please contact us by calling [phone]. Electronically signed by: Radha Barrios PA-C Narrative 03/22/2024 10:16 AM ANNEALER EXAMINATION: DRAINAGE CATHETER EVALUATION AND REMOVAL HISTORY: [...] None TECHNIQUE: Prior to beginning the procedure, Pingree Protocol was used to confirm the patient's identity and planned procedure. Fluoroscopy time has been recorded in the electronic medical record. After obtaining a pathological technician image, the catheter was injected with [...] None TECHNIQUE: Prior to beginning the procedure, Pingree Protocol was used to confirm the patient's identity and planned procedure. Fluoroscopy time has been recorded in the electronic medical record. After obtaining a pathological technician image, the catheter was injected with [...] questions arise, please contact us by calling [phone]. Electronically signed by: Radha Barrios PA-C Flori LEE IMG IR PROCEDURES Final Res ult * Lipid panel (03/15/2024 9:49 AM ANNEALER) Cholesterol 106 100 - 199 mg/dL [facility] - 01 Triglycerides 88 0 - 149 mg/dL [facility] - 01 HDL Cholesterol 44 >39 mg/dL [facility] - 01 VLDL 17 5 - 40 mg/dL [facility] - 01 LDL, calculated 45 0 - 99 mg/dL [facility] - 01 Blood 03/15/2024 9:49 AM ANNEALER 03/15/2024 Narrative [facility] - 03/16/2024 3:07 AM ANNEALER Performed at: [address] [id number] Agronomy Manager: Prabhjot Trammell PhD, Phone: [phone] Jack Morrison MD LAB BLOOD ORDERABLES Final R esult [facility] - * BK virus, DNA, quantitative Blood (03/15/2024 9:48 AM ANNEALER) [facility] BK Virus DNA, PCR Negative Negative IU/mL [facility] - Comment: No BK DNA detected. The linear range of the assay is 22 - 100,000,000 IU/mL. Blood 03/15/2024 9:48 AM ANNEALER 03/15/2024 Narrative [facility] - 03/18/2024 12:09 PM ANNEALER Performed at: [address] [id number] Agronomy Manager: Agustina Tyler MD, Phone: [phone] us Jack Morrison MD LAB MICROBIOLOGY - GENERAL O RDERABLES Final Result Performing Organization Address City/[facility]/ZIP Co de Phone Number [facility] * (ABNORMAL) Hepatic function panel (03/15/2024 9:48 AM ANNEALER) [facility] Protein, sr 6.4 6.0 - 8.5 g/dL [...] [facility] - 01 Blood 03/15/2024 9:48 AM ANNEALER 03/15/2024 Narrative [facility] - 03/16/2024 4:07 AM ANNEALER Performed at: Lab[address] [id number] Agronomy Manager: Prabhjot Trammell PhD, Phone: [phone] Jack Morrison MD LAB BLOOD ORDERABLES Final R formerly [facility] Performing Organization Address [facility] de Phone Number [facility] * Tacrolimus level trough (03/15/2024 9:47 AM ANNEALER) Pathologist [facility] Tacrolimus (FK506), Blood 4.4 2.0 - 20.0 ng/mL [facility] - 01 Comment: Trough (immediately following transplant) 15.0 Trough (steady state, 2 weeks or more after transplant): 3.0 - 8.0 Performed by LC-MS/MS technology. Effective April 02, 2024 the reference interval for Tacrolimus will be updated to: 5.0 - 20.0 ng/mL Blood 03/15/2024 9:47 AM ANNEALER 03/15/2024 Narrative [facility] - 03/19/2024 12:08 PM ANNEALER Test(s) [id number] ([id number]), Blood was developed and its performance characteristics determined by [employer]. It has not been cleared or approved by the Food and Drug Administration. Performed at: [address] [id number] Agronomy Manager: Agustina Tyler MD, Phone: [phone] Jack Morrison MD LAB BLOOD ORDERABLES [facility] Performing Organization Address [facility] Co de Phone Number [facility] * (ABNORMAL) CBC with auto differential (03/15/2024 9:47 AM ANNEALER) Pathologist [facility] WBC 5.4 3.4 - 10.8 x10E3/uL [facility] [...] [facility] - 01 Blood 03/15/2024 9:47 AM ANNEALER 03/15/2024 Narrative [facility] - 03/16/2024 3:07 AM ANNEALER Performed at: - [address] [id number] Agronomy Manager: Prabhjot Trammell PhD, Phone: [phone] us Jack Morrison MD LAB BLOOD ORDERABLES Final R esult [facility] - * (ABNORMAL) Renal function panel (03/15/2024 9:46 AM ANNEALER) Pathologist [facility] Glucose 115(H) 70 - 99 mg/dL [...] [facility] - 01 Blood 03/15/2024 9:46 AM ANNEALER 03/15/2024 Narrative [facility] - 03/16/2024 4:07 AM ANNEALER Performed at: [address] [id number] Agronomy Manager: Prabhjot Trammell PhD, Phone: [phone] us Jack Morrison MD LAB BLOOD ORDERABLES Final R esult [facility] - 01 * (ABNORMAL) POCT urinalysis dipstick (03/10/2024 8:47 AM ANNEALER) Color, Urine, POC Yellow Clarity, ur, POC Clear Clear Glucose, ur, POC Negative Negative MG/DL Ketones, ur, POC Negative Negative Blood, ur, POC 3+(A) Negative pH, ur, POC 5.0 5.0 - 8.0 Protein, ur, POC Trace(A) Negative Nitrite, ur, POC Negative Negative Leukocytes, ur, POC Trace(A) Negative Lot Number 0 Urine 03/10/2024 8:47 AM ANNEALER us Roscoe Peck MD POINT OF CARE TEST ORDERABLES Final Result * BK virus PCR quantitative Blood (03/10/2024 8:21 AM ANNEALER) Pathologist [facility] BKV DNA result, pl Not Detected [facility] Comment: The quantifiable range of this assay is 21.5 IU/mL to 100,000,000 IU/mL (1.33 log IU/mL to 8.00 log IU/mL). Testing was performed by the WALDEMAR 6800 BKV Quantatitive Test version 2.0 ([employer] Testing performed at [facility] Current Interpretive Data was last revised on 2020. Blood 03/10/2024 8:21 AM ANNEALER 03/10/2024 8:43 AM ANNEALER Jack Morrison MD LAB MICROBIOLOGY - GENERAL O RDERABLES Final Result LINDA [facility] Department [place] [address] [facility] * (ABNORMAL) eGFR (03/10/2024 8:21 AM ANNEALER) Pathologist [facility] eGFR 22(L) >=60 mL/min/1. 73 m2 [...] last reviewed 2020. Blood 03/10/2024 8:21 AM ANNEALER 03/10/2024 8:42 AM ANNEALER us Jack Morrison MD LAB BLOOD ORDERABLES Final R esult LINDA [facility] Department [place] [address] * (ABNORMAL) Differential, auto (03/10/2024 8:21 AM ANNEALER) Neutrophil abs 4.9 1.5 - 6.5 K/cumm Imm gran abs 0.0 0.0 - 0.1 K/cumm CERNER [facility] Lymphocyte abs 0.3(L) 0.8 - 3.3 K/cumm [facility] Monocyte abs 0.4 0.2 - 0.8 K/cumm [facility] Eosinophil abs 0.0 0.0 - 0.5 K/cumm [facility] Basophil abs 0.0 0.0 - 0.1 K/cumm [facility] Neutrophil pct 86.2 % [facility] Comment: Interpretive Data Percent cell count reference ranges are not reported, since discordance with absolute values may lead to misinterpretation of CBC data. Current Interpretive Data was last revised on 2017. Imm gran pct 0.7 % [facility] Comment: Interpretive Data Percent cell count reference ranges are not reported, since discordance with absolute values may lead to misinterpretation of CBC data. Current Interpretive Data was last revised on 2017. Lymphocyte pct 4.9 % [facility] Comment: Interpretive Data Percent cell count reference ranges are not reported, since discordance with absolute values may lead to misinterpretation of CBC data. Current Interpretive Data was last revised on 2017. Monocyte pct 7.2 % [facility] Comment: Interpretive Data Percent cell count reference ranges are not reported, since discordance with absolute values may lead to misinterpretation of CBC data. Current Interpretive Data was last revised on 2017. Eosinophil pct 0.3 % [facility] Comment: Interpretive Data Percent cell count reference ranges are not reported, since discordance with absolute values may lead to misinterpretation of CBC data. Current Interpretive Data was last revised on 2017. Basophil pct 0.7 % [facility] Comment: Interpretive Data Percent cell count reference ranges are not reported, since discordance with absolute values may lead to misinterpretation of CBC data. Current Interpretive Data was last revised on 2017. Blood 03/10/2024 8:21 AM ANNEALER 03/10/2024 8:39 AM ANNEALER Jack Morrison MD LAB BLOOD ORDERABLES Final R esult Performing Organization Address City/[facility] Co de Phone Number [facility] [place] [address] * (ABNORMAL) CBC with auto differential (03/10/2024 8:21 AM ANNEALER) WBC 5.7 3.8 - 9.9 K/cumm Hgb 12.1(L) 13.0 - 17.5 g/dL [facility] Hct 36.1(L) 38.9 - 50.3 % [facility] Plt 220 150 - 400 K/cumm [facility] MPV 9.8 9.1 - 12.3 fL [facility] RBC 3.65(L) 4.30 - 5.80 M/cumm [facility] MCV 98.9(H) 81.3 - 96.4 fL [facility] MCH 33.2 27.1 - 33.3 pg [facility] MCHC 33.5 32.3 - 35.7 g/dL [facility] RDW CV 14.2 11.1 - 14.9 % [facility] RDW SD 52.4(H) 35.7 - 48.1 fL [facility] NRBC abs 0.00 0.00 - 0.01 K/cumm [facility] Blood 03/10/2024 8:21 AM ANNEALER 03/10/2024 8:39 AM ANNEALER Jack Morrison MD LAB BLOOD ORDERABLES Final R esult Performing Organization Address City/[facility]/ZIP Co de Phone Number [facility] [place] [address] * Tacrolimus level random (03/10/2024 8:21 AM ANNEALER) Tacrolimus random 9.0 ng/mL Comment: Interpretive Data Testing performed by liquid chromatography-tandem mass spectrometry. Therapeutic concentrations vary depending on type of transplanted organ and time elapsed since transplant. Typical trough concentrations range from 5-15 ng/mL. This test was developed and its performance characteristics determined by the [facility] consistent with CLIA requirements. This test has not been cleared or approved by the US Food and Drug administration. Current interpretive data last reviewed 2019. Blood 03/10/2024 8:21 AM ANNEALER 03/10/2024 8:39 AM ANNEALER Jack Morrison MD LAB BLOOD ORDERABLES Final R esult Performing Organization Address City/[facility]/ZIP Co de Phone Number [facility] [place] [address] * Magnesium (03/10/2024 8:21 AM ANNEALER) Pathologist [facility] Magnesium 2.0 1.4 - 2.5 mg/dL Blood 03/10/2024 8:21 AM ANNEALER 03/10/2024 8:39 AM ANNEALER Jack Morrison MD LAB BLOOD ORDERABLES Final R esult [facility] [place] [address] * (ABNORMAL) Renal function panel (03/10/2024 8:21 AM ANNEALER) Pathologist [facility] Sodium 142 135 - 145 mmol/L Potassium, pl 5.1(H) 3.3 - 4.9 mmol/L [facility] Chloride 108 97 - 110 mmol/L [facility] CO2 24 22 - 32 mmol/L [facility] Anion gap 10 2 - 15 mmol/L [facility] BUN 49(H) 6 - 25 mg/dL [facility] Creatinine 3.09(H) 0.80 - 1.30 mg/dL [facility] Glucose 91 70 - 199 mg/dL [facility] Comment: Interpretive Data Fasting glucose >/= [...] Calcium 10.2 8.5 - 10.3 mg/dL [facility] Phosphorus, pl 3.2 2.3 - 4.5 mg/dL [facility] Albumin 3.8 3.5 - 5.0 g/dL [facility] Blood 03/10/2024 8:21 AM ANNEALER 03/10/2024 8:39 AM ANNEALER us Jack Morrison MD LAB BLOOD ORDERABLES Final R esult [facility] Department [place] [address] * PET Stress Test (03/08/2024 3:12 PM ANNEALER) Anatomical Region Laterality Modality N/A Positron Emissio n Tomography (PET) 03/08/2024 4:13 PM ANNEALER Impressions 03/08/2024 4:13 PM ANNEALER Asymptomatic and electrocardiographically normal pharmacologic stress test I personally supervised and was present throughout the stress test. Refer to for the separate report of the PET myocardial perfusion imaging results. Electronically signed by: Jose Ortiz M.D. Narrative 03/08/2024 4:13 PM ANNEALER EXAMINATION: PHARMACOLOGIC STRESS TEST FOR CARDIAC PET [...] results. Electronically signed by: Jose Ortiz M.D. us Marian Merino MD IMG PET PROCEDURES Final R esult * PET/CT Myocardial Perfusion Imaging (Multiple) (03/08/2024 3:12 PM ANNEALER) Anatomical Region Laterality Modality Body N/A Positron Emissio n Tomography (PET) 03/08/2024 3:55 PM ANNEALER Impressions 03/08/2024 4:09 PM ANNEALER 1. There is a ejote-dw-uyfpvlwp size and mild infarct involving the elmkm-hr-iqj-segments inferoseptally associated with moderate severe theresa-infarct ischemia during pharmacologic stress. 2. Marked left ventricular dilation and mild global hyopkinesis with severe hypo-to akinesis wddtk-sw-yde-segments inferoseptally. 3. Flow quantification with reduced global [...] Jose Ortiz M.D. Narrative 03/08/2024 4:09 PM ANNEALER EXAMINATION: MYOCARDIAL PET/CT PERFUSION IMAGING (STRESS/REST) DATE [...] was referred for PET MPI by his Machine Shop Instructor (Dr. Merino). Evaluate for ischemia and/or microvascular [...] of any abnormal extracardiac tracer uptake. COMPARISON: [place] MPI SPECT (December 2021): large and moderately severe ischemia involving the basal to mid lateral wall and more pronounced anterolaterally. Normal rest perfusion. Enlarged LV cavity with mild global hypokinesis. FINDINGS: There is a fntdy-tz-fpgvcmcc size and mild infarct involving the knshl-lo-bvo-segments inferoseptally associated with moderate severe theresa-infarct ischemia during pharmacologic stress. Gated post-stress images demonstrate marked left ventricular dilation and mild global hyopkinesis with severe hypo-to akinesis sfqrh-kz-ojf-segments inferoseptally and the left ventricular ejection fraction [...] was referred for PET MPI by his Machine Shop Instructor (Dr. Merino). Evaluate for ischemia and/or microvascular [...] mild global hypokinesis. FINDINGS: There is a stnyh-wd-iolirdlw size and mild infarct involving the vvtob-bh-qye-segments inferoseptally associated with moderate severe theresa-infarct ischemia during pharmacologic stress. Gated post-stress images demonstrate marked left ventricular dilation and mild global hyopkinesis with severe hypo-to akinesis zaamr-tt-qny-segments inferoseptally and the left ventricular ejection fraction [...] multilevel spondylosis. IMPRESSION: 1. There is a xvjoz-ly-biszfazx size and mild infarct involving the zspke-zo-ldi-segments inferoseptally associated with moderate severe theresa-infarct ischemia during pharmacologic stress. 2. Marked left ventricular dilation and mild global hyopkinesis with severe hypo-to akinesis vauvu-uh-sht-segments inferoseptally. 3. Flow quantification with reduced global [...] Electronically signed by: Jose Ortiz M.D. us Marian Merino MD IMG PET PROCEDURES Final R esult * IR Inject Abscess Catheter (03/08/2024 11:02 AM ANNEALER) Anatomical Region Laterality Modality Body N/A Radio Fluoroscop y 03/08/2024 12:2 0 PM ANNEALER Impressions 03/08/2024 12:20 PM ANNEALER Improving and nearly resolved superficial collection without new fistula. Catheter was removed. Improving, but still present perinephric collection without new fistula. Catheter was kept in place. PLAN: Continue to monitor remaining catheter output as well as the patient's clinical condition. The catheter should not be flushed. The patient will follow-up with us in 2 weeks. If questions arise, please contact us by calling [phone]. Electronically signed by: Flori Strange PA-C Narrative 03/08/2024 12:20 PM ANNEALER EXAMINATION: DRAINAGE CATHETER EVALUATION AND REMOVAL HISTORY: [...] required TECHNIQUE: Prior to beginning the procedure, Pingree Protocol was used to confirm the patient's identity and planned procedure. Fluoroscopy time has been recorded in the electronic medical record. After obtaining a pathological technician image, the catheter was injected with [...] required TECHNIQUE: Prior to beginning the procedure, Pingree Protocol was used to confirm the patient's identity and planned procedure. Fluoroscopy time has been recorded in the electronic medical record. After obtaining a pathological technician image, the catheter was injected with [...] questions arise, please contact us by calling [phone]. Electronically signed by: Flori Strange PA-C us Savanna Kwok MD IMG IR PROCEDURES Fin al Result * (ABNORMAL) eGFR (03/03/2024 9:40 AM ANNEALER) eGFR 22(L) >=60 mL/min/1. 73 m2 Comment: [...] last reviewed 2020. Blood 03/03/2024 9:40 AM ANNEALER 03/03/2024 12:52 PM ANNEALER us Matthew Marti MD LAB BLOOD ORDERABLES Final Result [facility] Department [place] [address] * (ABNORMAL) Differential, auto (03/03/2024 9:40 AM ANNEALER) Neutrophil abs 6.0 1.5 - 6.5 K/cumm Imm gran abs 0.1 0.0 - 0.1 K/cumm [facility] Lymphocyte abs 0.3(L) 0.8 - 3.3 K/cumm [facility] Monocyte abs 0.4 0.2 - 0.8 K/cumm [facility] Eosinophil abs 0.0 0.0 - 0.5 K/cumm [facility] Basophil abs 0.0 0.0 - 0.1 K/cumm [facility] Neutrophil pct 89.0 % [facility] Comment: Interpretive Data Percent cell count reference ranges are not reported, since discordance with absolute values may lead to misinterpretation of CBC data. Current Interpretive Data was last revised on 2017. Imm gran pct 0.7 % [facility] Comment: Interpretive Data Percent cell count reference ranges are not reported, since discordance with absolute values may lead to misinterpretation of CBC data. Current Interpretive Data was last revised on 2017. Lymphocyte pct 3.7 % [facility] Comment: Interpretive Data Percent cell count reference ranges are not reported, since discordance with absolute values may lead to misinterpretation of CBC data. Current Interpretive Data was last revised on 2017. Monocyte pct 6.2 % [facility] Comment: Interpretive Data Percent cell count reference ranges are not reported, since discordance with absolute values may lead to misinterpretation of CBC data. Current Interpretive Data was last revised on 2017. Eosinophil pct 0.1 % [facility] Comment: Interpretive Data Percent cell count reference ranges are not reported, since discordance with absolute values may lead to misinterpretation of CBC data. Current Interpretive Data was last revised on 2017. Basophil pct 0.3 % [facility] Comment: Interpretive Data Percent cell count reference ranges are not reported, since discordance with absolute values may lead to misinterpretation of CBC data. Current Interpretive Data was last revised on 2017. Blood 03/03/2024 9:40 AM ANNEALER 03/03/2024 12:40 PM ANNEALER us Matthew Marti MD LAB BLOOD ORDERABLES Final Result [facility] Department [place] [address] * Tacrolimus level trough (03/03/2024 9:40 AM ANNEALER) Tacrolimus trough 7.1 ng/mL Comment: Interpretive Data Testing performed by liquid chromatography-tandem mass spectrometry. Therapeutic concentrations vary depending on type of transplanted organ and time elapsed since transplant. Typical trough concentrations range from 5-15 ng/mL. This test was developed and its performance characteristics determined by the [facility] consistent with CLIA requirements. This test has not been cleared or approved by the [place] Food and Drug administration. Current interpretive data last reviewed 2019. Blood 03/03/2024 9:40 AM ANNEALER 03/03/2024 12:40 PM ANNEALER Matthew Marti MD LAB BLOOD ORDERABLES Final Result Performing Organization Address [facility]/ZIP Co de Phone Number [facility] Department [place] [address] * (ABNORMAL) CBC with auto differential (03/03/2024 9:40 AM ANNEALER) WBC 6.8 3.8 - 9.9 K/cumm Hgb 12.5(L) 13.0 - 17.5 g/dL [facility] Hct 37.1(L) 38.9 - 50.3 % [facility] Plt 166 150 - 400 K/cumm [facility] MPV 10.4 9.1 - 12.3 fL [facility] RBC 3.76(L) 4.30 - 5.80 M/cumm [facility] MCV 98.7(H) 81.3 - 96.4 fL [facility] MCH 33.2 27.1 - 33.3 pg [facility] MCHC 33.7 32.3 - 35.7 g/dL [facility] RDW CV 15.2(H) 11.1 - 14.9 % [facility] RDW SD 55.8(H) 35.7 - 48.1 fL [facility] NRBC abs 0.00 0.00 - 0.01 K/cumm [facility] Blood 03/03/2024 9:40 AM ANNEALER 03/03/2024 12:40 PM ANNEALER us Matthew Marti MD LAB BLOOD ORDERABLES Final Result [facility] Department [place] [address] * Magnesium (03/03/2024 9:40 AM ANNEALER) Magnesium 1.7 1.4 - 2.5 mg/dL Blood 03/03/2024 9:40 AM ANNEALER 03/03/2024 12:40 PM ANNEALER us Matthew Marti MD LAB BLOOD ORDERABLES Final Result [facility] Department [place] [address] * (ABNORMAL) Renal function panel (03/03/2024 9:40 AM ANNEALER) Pathologist [facility] Sodium 138 135 - 145 mmol/L Potassium, pl 5.3(H) 3.3 - 4.9 mmol/L [facility] Chloride 106 97 - 110 mmol/L [facility] CO2 22 22 - 32 mmol/L [facility] Anion gap 10 2 - 15 mmol/L [facility] BUN 42(H) 6 - 25 mg/dL [facility] Creatinine 3.02(H) 0.80 - 1.30 mg/dL [facility] Glucose 101 70 - 199 mg/dL [facility] Comment: Interpretive Data Fasting glucose >/= [...] Calcium 9.7 8.5 - 10.3 mg/dL [facility] Phosphorus, pl 2.8 2.3 - 4.5 mg/dL [facility] Albumin 3.8 3.5 - 5.0 g/dL [facility] Blood 03/03/2024 9:40 AM ANNEALER 03/03/2024 12:40 PM ANNEALER Matthew Marti MD LAB BLOOD ORDERABLES Final Result Performing Organization Address City/[facility] Co de Phone Number [facility] Department [place] [address] * (ABNORMAL) eGFR (03/01/2024 8:00 AM ANNEALER) Pathologist [facility] eGFR 23(L) >=60 mL/min/1. 73 m2 Comment: [...] last reviewed 2020. Blood 03/01/2024 8:00 AM ANNEALER 03/01/2024 12:38 PM ANNEALER Rosalie Velásquez NP LAB BLOOD ORDERABLES Final Result Performing Organization Address [facility] Co de Phone Number [facility] Department [place] [address] * (ABNORMAL) Differential, auto (03/01/2024 8:00 AM ANNEALER) Pathologist [facility] Neutrophil abs 3.4 1.5 - 6.5 K/cumm Imm gran abs 0.0 0.0 - 0.1 K/cumm [facility] Lymphocyte abs 0.4(L) 0.8 - 3.3 K/cumm [facility] Monocyte abs 0.3 0.2 - 0.8 K/cumm [facility] Eosinophil abs 0.0 0.0 - 0.5 K/cumm [facility] Basophil abs 0.0 0.0 - 0.1 K/cumm [facility] Neutrophil pct 81.3 % [facility] Comment: Interpretive Data Percent cell count reference ranges are not reported, since discordance with absolute values may lead to misinterpretation of CBC data. Current Interpretive Data was last revised on 2017. Imm gran pct 1.0 % [facility] Comment: Interpretive Data Percent cell count reference ranges are not reported, since discordance with absolute values may lead to misinterpretation of CBC data. Current Interpretive Data was last revised on 2017. Lymphocyte pct 8.7 % LINDA [facility] Comment: Interpretive Data Percent cell count reference ranges are not reported, since discordance with absolute values may lead to misinterpretation of CBC data. Current Interpretive Data was last revised on 2017. Monocyte pct 7.0 % [facility] Comment: Interpretive Data Percent cell count reference ranges are not reported, since discordance with absolute values may lead to misinterpretation of CBC data. Current Interpretive Data was last revised on 2017. Eosinophil pct 1.0 % [facility] Comment: Interpretive Data Percent cell count reference ranges are not reported, since discordance with absolute values may lead to misinterpretation of CBC data. Current Interpretive Data was last revised on 2017. Basophil pct 1.0 % [facility] Comment: Interpretive Data Percent cell count reference ranges are not reported, since discordance with absolute values may lead to misinterpretation of CBC data. Current Interpretive Data was last revised on 2017. Blood 03/01/2024 8:00 AM ANNEALER 03/01/2024 12:32 PM ANNEALER us Rosalie Velásquez NP LAB BLOOD ORDERABLES Final Result [facility] [place] [address] * Tacrolimus level trough (03/01/2024 8:00 AM ANNEALER) Pathologist [facility] Tacrolimus trough 8.7 ng/mL Comment: Interpretive Data Testing performed by liquid chromatography-tandem mass spectrometry. Therapeutic concentrations vary depending on type of transplanted organ and time elapsed since transplant. Typical trough concentrations range from 5-15 ng/mL. This test was developed and its performance characteristics determined by the [facility] consistent with CLIA requirements. This test has not been cleared or approved by the US Food and Drug administration. Current interpretive data last reviewed 2019. Blood 03/01/2024 8:00 AM ANNEALER 03/01/2024 12:32 PM ANNEALER us Rosalie Velásquez NP LAB BLOOD ORDERABLES Final Result [facility] Department [place] [address] * (ABNORMAL) CBC with auto differential (03/01/2024 8:00 AM ANNEALER) WBC 4.2 3.8 - 9.9 K/cumm Hgb 12.3(L) 13.0 - 17.5 g/dL [facility] Hct 36.5(L) 38.9 - 50.3 % [facility] Plt 151 150 - 400 K/cumm [facility] MPV 10.2 9.1 - 12.3 fL [facility] RBC 3.66(L) 4.30 - 5.80 M/cumm [facility] MCV 99.7(H) 81.3 - 96.4 fL [facility] MCH 33.6(H) 27.1 - 33.3 pg [facility] MCHC 33.7 32.3 - 35.7 g/dL [facility] RDW CV 15.7(H) 11.1 - 14.9 % [facility] RDW SD 58.0(H) 35.7 - 48.1 fL [facility] NRBC abs 0.00 0.00 - 0.01 K/cumm [facility] Blood 03/01/2024 8:00 AM ANNEALER 03/01/2024 12:32 PM ANNEALER Rosalie Velásquez CONDOMINIUM MANAGER LAB BLOOD ORDERABLES Final Result [facility] [place] [address] * Magnesium (03/01/2024 8:00 AM ANNEALER) Pathologist [facility] Magnesium 1.9 1.4 - 2.5 mg/dL Blood 03/01/2024 8:00 AM ANNEALER 03/01/2024 12:31 PM ANNEALER Rosalie Velásquez CONDOMINIUM MANAGER LAB BLOOD ORDERABLES Final Result Performing Organization Address [facility] Co de Phone Number [facility] [place] [address] * (ABNORMAL) Renal function panel (03/01/2024 8:00 AM ANNEALER) [facility] Sodium 140 135 - 145 mmol/L Potassium, pl 5.4(H) 3.3 - 4.9 mmol/L [facility] Chloride 106 97 - 110 mmol/L [facility] CO2 22 22 - 32 mmol/L [facility] Anion gap 12 2 - 15 mmol/L [facility] BUN 39(H) 6 - 25 mg/dL [facility] Creatinine 2.94(H) 0.80 - 1.30 mg/dL [facility] Glucose 92 70 - 199 mg/dL [facility] Comment: Interpretive Data Fasting glucose >/= [...] Calcium 10.2 8.5 - 10.3 mg/dL [facility] Phosphorus, pl 2.8 2.3 - 4.5 mg/dL [facility] Albumin 3.8 3.5 - 5.0 g/dL [facility] Blood 03/01/2024 8:00 AM ANNEALER 03/01/2024 12:31 PM ANNEALER Rosalie Velásquez NP LAB BLOOD ORDERABLES Final Result Performing Organization Address [facility] Co de Phone Number [facility] Department [place] [address] * BK virus, DNA, quantitative Blood (02/26/2024 8:59 AM ANNEALER) [facility] BK Virus DNA, PCR Negative Negative IU/mL [facility] - 01 Comment: No BK DNA detected. The linear range of the assay is 22 - 100,000,000 IU/mL. Blood 02/26/2024 8:59 AM ANNEALER 02/26/2024 Narrative [facility] - 02/29/2024 2:08 PM ANNEALER Performed at: - [address] [id number] Agronomy Manager: Agustina Tyler MD, Phone: [phone] us Jack Morrison MD LAB MICROBIOLOGY - GENERAL O RDERABLES Final Result Performing Organization Address [facility] Co de Phone Number [facility] - 01 * Tacrolimus level trough (02/26/2024 8:59 AM ANNEALER) Pathologist [facility] Tacrolimus (FK506), Blood 8.4 2.0 - 20.0 ng/mL [facility] - 01 Comment: Trough (immediately following transplant) 15.0 Trough (steady state, 2 weeks or more after transplant): 3.0 - 8.0 Performed by LC-MS/MS technology. Blood 02/26/2024 8:59 AM ANNEALER 02/26/2024 Narrative [facility] - 02/29/2024 2:08 PM ANNEALER Test(s) [id number] (FK506), Blood was developed and its performance characteristics determined by [facility]. It has not been cleared or approved by the Food and Drug Administration. Performed at: - [facility] [id number] Agronomy Manager: Agustina Tyler MD, Phone: [phone] us Jack Morrison MD LAB BLOOD ORDERABLES Final R esult [facility] - 01 * (ABNORMAL) CBC with auto differential (02/26/2024 8:59 AM ANNEALER) WBC 3.6 3.4 - 10.8 x10E3/uL [facility] [...] [facility] - 01 Blood 02/26/2024 8:59 AM ANNEALER 02/26/2024 Narrative [facility] - 02/27/2024 7:07 AM ANNEALER Performed at: [address] [place], [place] [id number] Agronomy Manager: Prabhjot Trammell PhD, Phone: [phone] us Jack Morrison MD LAB BLOOD ORDERABLES Final R esult Performing Organization Address City/[facility] Co de Phone Number [facility] * (ABNORMAL) Hepatic function panel (02/26/2024 8:59 AM ANNEALER) Protein, sr 6.1 6.0 - 8.5 g/dL [facility] - 01 Bilirubin, Total 0.4 0.0 - 1.2 mg/dL [facility] - 01 Bilirubin, direct 0.17 0.00 - 0.40 mg/dL [facility] - 01 Alk phos 147(H) 44 - 121 IU/L [facility] - 01 AST 14 0 - 40 IU/L [facility] - 01 ALT 10 0 - 44 IU/L [facility] - 01 Blood 02/26/2024 8:59 AM ANNEALER 02/26/2024 Narrative [facility] - 02/27/2024 7:07 AM ANNEALER Performed at: [address] [place] [id number] Agronomy Manager: Prabhjot Trammell PhD, Phone: [phone] us Jack Morrison MD LAB BLOOD ORDERABLES Final R esult Performing Organization Address City/[facility]/ZIP Co de Phone Number [facility] * (ABNORMAL) Renal function panel (02/26/2024 8:59 AM ANNEALER) Glucose 99 70 - 99 mg/dL [facility] [...] [facility] - 01 Blood 02/26/2024 8:59 AM ANNEALER 02/26/2024 Narrative [facility] - 02/27/2024 7:07 AM ANNEALER Performed at: [address] [id number] Agronomy Manager: Prabhjot Trammell PhD, Phone: [phone] Jack Morrison MD LAB BLOOD ORDERABLES Final R esult [facility] - 01 * Lipid panel (02/26/2024 8:59 AM ANNEALER) [facility] Cholesterol 121 100 - 199 mg/dL [facility] - 01 Triglycerides 104 0 - 149 mg/dL [facility] - 01 HDL Cholesterol 52 >39 mg/dL [facility] - 01 VLDL 19 5 - 40 mg/dL [facility] - 01 LDL, calculated 50 0 - 99 mg/dL [facility] - 01 Blood 02/26/2024 8:59 AM ANNEALER 02/26/2024 Narrative [facility] - 02/27/2024 7:07 AM ANNEALER Performed at: [address] [id number] Agronomy Manager: Prabhjot Trammell PhD, Phone: [phone] us Jack Morrison MD LAB BLOOD ORDERABLES Final R esult Performing Organization Address City/[facility]/ZIP Co de Phone Number [facility] - 01 * POCT glucose (02/23/2024 11:43 AM ANNEALER) Glucose, POC 105 70 - 199 mg/dL Blood 02/23/2024 11:4 3 AM ANNEALER 02/23/2024 11:43 AM ANNEALER us Renetta Jones MD PhD LAB POCT ORDERABLES - DEVICE Fi nal Result Performing Organization Address [facility] Co de Phone Number [facility] [place] [address] * POCT glucose (02/23/2024 8:21 AM ANNEALER) Glucose, POC 106 70 - 199 mg/dL Blood 02/23/2024 8:21 AM ANNEALER 02/23/2024 8:21 AM ANNEALER Renetta Jones MD PhD LAB POCT ORDERABLES - DEVICE Fi nal Result Performing Organization Address [facility] de Phone Number [facility] Department [place] [address] * (ABNORMAL) Potassium, whole blood (02/23/2024 6:38 AM ANNEALER) Potassium, bld 5.3(H) 3.3 - 4.9 mmol/L Blood 02/23/2024 6:38 AM ANNEALER 02/23/2024 6:55 AM ANNEALER us Renetta Jones MD PhD LAB BLOOD ORDERABLES Final Resu lt Performing Organization Address City/[facility] Co de Phone Number [facility] [place] [address] * ECG 12 lead (02/23/2024 6:30 AM ANNEALER) Ventricular Rate EKG/Min 57 BPM [facility] Atrial Rate 57 BPM [facility] MA-Interval (MSEC) 246 ms [facility] QRS-Interval (MSEC) 142 ms [facility] QT-Interval (MSEC) 464 ms [facility] QTc 451 ms [facility] P Preston 65 degrees [facility] R Preston -9 degrees [facility] T Preston 20 degrees [facility] Diagnosis Sinus bradycardia with 1st degree A-V block Non-specific intra-ventricul ar conduction block Minimal voltage criteria for LVH, may be normal variant ( Vaibhav product ) Abnormal ECG When compared with ECG of 27-JAN-2024 15:35, Sinus rhythm has replaced Atrial fibrillation QT has shortened Confirmed by JENNIFER BYRD M.D ([id number]) on 02/23/2024 1:27:04 PM [facility] 02/23/2024 6:30 AM ANNEALER 02/23/2024 1:27 PM ANNEALER us Renetta Jones MD PhD ECG ORDERABLES Final Result [facility] * CT Abdomen Pelvis WO Contrast (02/23/2024 5:21 AM ANNEALER) Anatomical Region Laterality Modality Body N/A Computed Tomogra phy 02/23/2024 7:47 AM ANNEALER Impressions 02/23/2024 7:47 AM ANNEALER 1. Interval placement of pigtail catheter within [...] Blake Bauer M.D. Narrative 02/23/2024 7:47 AM ANNEALER EXAMINATION: Computed tomography of the abdomen and [...] this noncontrast study. Marked atrophy of the [place] kidneys. No hyperdense gallstones or biliary dilation. [...] this noncontrast study. Marked atrophy of the [place] kidneys. No hyperdense gallstones or biliary dilation. [...] edema Electronically signed by: Blake Bauer M.D. [facility] CT PROCEDURES Fin al Result * (ABNORMAL) eGFR (02/23/2024 4:37 AM ANNEALER) eGFR 20(L) >=60 mL/min/1. 73 m2 Comment: [...] last reviewed 2020. Blood 02/23/2024 4:37 AM ANNEALER 02/23/2024 4:59 AM ANNEALER Rhoda LEE LAB BLOOD ORDERABLES Final Result [facility] Department [place] [address] * (ABNORMAL) Differential, auto (02/23/2024 4:37 AM ANNEALER) Neutrophil abs 2.5 1.5 - 6.5 K/cumm Imm gran abs 0.0 0.0 - 0.1 K/cumm [facility] Lymphocyte abs 0.2(L) 0.8 - 3.3 K/cumm [facility] Monocyte abs 0.2 0.2 - 0.8 K/cumm [facility] Eosinophil abs 0.0 0.0 - 0.5 K/cumm [facility] Basophil abs 0.0 0.0 - 0.1 K/cumm [facility] Neutrophil pct 85.3 % [facility] Comment: Interpretive Data Percent cell count reference ranges are not reported, since discordance with absolute values may lead to misinterpretation of CBC data. Current Interpretive Data was last revised on 2017. Imm gran pct 0.7 % [facility] Comment: Interpretive Data Percent cell count reference ranges are not reported, since discordance with absolute values may lead to misinterpretation of CBC data. Current Interpretive Data was last revised on 2017. Lymphocyte pct 6.5 % [facility] Comment: Interpretive Data Percent cell count reference ranges are not reported, since discordance with absolute values may lead to misinterpretation of CBC data. Current Interpretive Data was last revised on 2017. Monocyte pct 6.1 % [facility] Comment: Interpretive Data Percent cell count reference ranges are not reported, since discordance with absolute values may lead to misinterpretation of CBC data. Current Interpretive Data was last revised on 2017. Eosinophil pct 0.7 % [facility] Comment: Interpretive Data Percent cell count reference ranges are not reported, since discordance with absolute values may lead to misinterpretation of CBC data. Current Interpretive Data was last revised on 2017. Basophil pct 0.7 % [facility] Comment: Interpretive Data Percent cell count reference ranges are not reported, since discordance with absolute values may lead to misinterpretation of CBC data. Current Interpretive Data was last revised on 2017. Blood 02/23/2024 4:37 AM ANNEALER 02/23/2024 4:59 AM ANNEALER Rhoda Flores [place] LAB BLOOD ORDERABLES Final Result Performing Organization Address [facility] de Phone Number [facility] [place] [address] * Tacrolimus level trough (02/23/2024 4:37 AM ANNEALER) Pathologist [facility] Tacrolimus trough 9.1 ng/mL Comment: Interpretive Data Testing performed by liquid chromatography-tandem mass spectrometry. Therapeutic concentrations vary depending on type of transplanted organ and time elapsed since transplant. Typical trough concentrations range from 5-15 ng/mL. This test was developed and its performance characteristics determined by the [facility] consistent with CLIA requirements. This test has not been cleared or approved by the [place] Food and Drug administration. Current interpretive data last reviewed 2019. Blood 02/23/2024 4:37 AM ANNEALER 02/23/2024 4:59 AM ANNEALER Rhoda LEE LAB BLOOD ORDERABLES Final Result Performing Organization Address [facility] de Phone Number [facility] [place] [address] * (ABNORMAL) CBC with auto differential (02/23/2024 4:37 AM ANNEALER) Pathologist [facility] WBC 2.9(L) 3.8 - 9.9 K/cumm Hgb 10.4(L) 13.0 - 17.5 g/dL [facility] Hct 31.2(L) 38.9 - 50.3 % [facility] Plt 106(L) 150 - 400 K/cumm [facility] MPV 9.8 9.1 - 12.3 fL [facility] RBC 3.09(L) 4.30 - 5.80 M/cumm [facility] MCV 101.0(H) 81.3 - 96.4 fL [facility] MCH 33.7(H) 27.1 - 33.3 pg [facility] MCHC 33.3 32.3 - 35.7 g/dL [facility] RDW CV 16.7(H) 11.1 - 14.9 % [facility] RDW SD 61.7(H) 35.7 - 48.1 fL [facility] NRBC abs 0.00 0.00 - 0.01 K/cumm [facility] Blood 02/23/2024 4:37 AM ANNEALER 02/23/2024 4:59 AM ANNEALER Rhoda LEE LAB BLOOD ORDERABLES Final Result Performing Organization Address City/[facility]/ZIP Co de Phone Number [facility] [place] [address] * Magnesium (02/23/2024 4:37 AM ANNEALER) Pathologist [facility] Magnesium 2.0 1.4 - 2.5 mg/dL Blood 02/23/2024 4:37 AM ANNEALER 02/23/2024 4:59 AM ANNEALER Rhoda LEE LAB BLOOD ORDERABLES Final Result Performing Organization Address City/[facility] Co de Phone Number [facility] Department [place] [address] * (ABNORMAL) Renal function panel (02/23/2024 4:37 AM ANNEALER) Sodium 141 135 - 145 mmol/L Potassium, pl 5.6(H) 3.3 - 4.9 mmol/L [facility] Chloride 108 97 - 110 mmol/L [facility] CO2 27 22 - 32 mmol/L [facility] Anion gap 6 2 - 15 mmol/L [facility] BUN 38(H) 6 - 25 mg/dL [facility] Creatinine 3.27(H) 0.80 - 1.30 mg/dL [facility] Glucose 86 70 - 199 mg/dL [facility] Comment: Interpretive Data Fasting glucose >/= [...] Calcium 9.6 8.5 - 10.3 mg/dL [facility] Phosphorus, pl 4.2 2.3 - 4.5 mg/dL [facility] Albumin 3.7 3.5 - 5.0 g/dL [facility] Blood 02/23/2024 4:37 AM ANNEALER 02/23/2024 4:59 AM ANNEALER us Rhoda LEE LAB BLOOD ORDERABLES Final Result [facility] Department [place] [address] * POCT glucose (02/22/2024 9:35 PM ANNEALER) Glucose, POC 136 70 - 199 mg/dL Blood 02/22/2024 9:35 PM ANNEALER 02/22/2024 9:35 PM ANNEALER us Renetta Jones MD PhD LAB POCT ORDERABLES - DEVICE Fi nal Result Performing Organization Address [facility] Co de Phone Number [facility] [place] [address] * POCT glucose (02/22/2024 5:37 PM ANNEALER) Glucose, POC 134 70 - 199 mg/dL Blood 02/22/2024 5:37 PM ANNEALER 02/22/2024 5:37 PM ANNEALER Renetta Jones MD PhD LAB POCT ORDERABLES - DEVICE Fi nal Result Performing Organization Address [facility] de Phone Number [facility] [place] [address] * Cell Differential, Body Fluid (02/22/2024 2:26 PM ANNEALER) Total cells diffed 100 cells Comment: Interpretive [...] [facility] Monocyte, fld 23 % [facility] Macrophages, fld 1 % [facility] Specimen type, fld Peritoneal [facility] Fluid 02/22/2024 2:26 PM ANNEALER 02/22/2024 2:38 PM ANNEALER Harrison Taylor MD LAB BODY FLUIDS AND STOOLS OR DERABLES Final Result Performing Organization Address [facility] de Phone Number [facility] [place] [address] * Cell Differential, Body Fluid (02/22/2024 2:26 PM ANNEALER) Total cells diffed 100 cells Comment: Interpretive [...] [facility] Monocyte, fld 17 % [facility] Specimen type, fld Peritoneal [facility] Fluid 02/22/2024 2:26 PM ANNEALER 02/22/2024 2:38 PM ANNEALER Harrison Taylor MD LAB BODY FLUIDS AND STOOLS OR DERABLES Final Result Performing Organization Address [facility] Co de Phone Number [facility] [place] [address] * (ABNORMAL) Cell count w/rflx diff, body fluid (02/22/2024 2:26 PM ANNEALER) [facility] Specimen type, fld Peritoneal Color, fld [place] [facility] Clarity, fld Cloudy(A) Clear [facility] Nucleated cells, fld 83 /cumm [facility] Comment: Interpretive Data Unless otherwise specified, the reference range and other method performance specifications have not been established for CSF/Body Fluid tests. The test results should be integrated into the clinical context for interpretation. Current interpretive data was last revised on 2018. RBC, fld 21,315 /cumm [facility] Fluid 02/22/2024 2:26 PM ANNEALER 02/22/2024 2:38 PM ANNEALER Narrative [facility] - 02/22/2024 4:31 PM ANNEALER RLQ drain #2 Harrison Taylor MD LAB BODY FLUIDS AND STOOLS OR DERABLES Final Result Performing Organization Address [facility]/ZIP Co de Phone Number [facility] [place] [address] * (ABNORMAL) Cell count w/rflx diff, body fluid (02/22/2024 2:26 PM ANNEALER) Specimen type, fld Peritoneal Color, fld Red [facility] Clarity, fld Turbid(A) Clear [facility] Nucleated cells, fld 350 /cumm [facility] Comment: Interpretive Data Unless otherwise specified, the reference range and other method performance specifications have not been established for CSF/Body Fluid tests. The test results should be integrated into the clinical context for interpretation. Current interpretive data was last revised on 2018. RBC, fld 606,638 /cumm [facility] Fluid 02/22/2024 2:26 PM ANNEALER 02/22/2024 2:38 PM ANNEALER Narrative [facility] - 02/22/2024 4:31 PM ANNEALER RLQ Harrison Taylor MD LAB BODY FLUIDS AND STOOLS OR DERABLES Final Result [facility] Department [place] [address] * Aerobic and anaerobic culture and gram stain Peritoneal fluid Abdominal, right lower quadrant (02/22/2024 2:26 PM ANNEALER) Direct Specimen Exam Stain: Cytospin Gram stain shows: Rare polymorphonuclear leukocytes seen. No organisms seen. Report Final Report: No growth [facility] Peritoneal fluid (Abdominal, right lower quadrant) 02/22/2024 2:26 PM ANNEALER 02/22/2024 3:42 PM ANNEALER Narrative [facility] - 02/25/2024 10:47 AM ANNEALER RLQ Drain #2 Testing performed by [facility] ([phone]) Specimens submitted from normally sterile body sites [...] OR DERABLES Final Result Performing Organization Address [facility] [place] [address] * Aerobic and anaerobic culture and gram stain Abscess Abdominal, right lower quadrant (02/22/2024 2:26 PM ANNEALER) Direct Specimen Exam Stain: Rare polymorphonuclear leukocytes seen. No organisms seen. Report Final Report: No growth [facility] Abscess (Abdominal, right lower quadrant) 02/22/2024 2:26 PM ANNEALER 02/22/2024 3:41 PM ANNEALER Narrative [facility] - 02/25/2024 10:48 AM ANNEALER Testing performed by [facility] ([phone]) Specimens submitted from normally sterile body sites [...] OR DERABLES Final Result Performing Organization Address [facility] de Phone Number [facility] Department [place] [address] * Creatinine, body fluid (02/22/2024 2:26 PM ANNEALER) Specimen type, fld Peritoneal Creatinine, fld 3.60 mg/dL [facility] Comment: The above specimen type is [...] Body Fluid Reference Intervals and/or Interpretative Information. [email or web address] Current Interpretive Data was last revised 2018. Fluid 02/22/2024 2:26 PM ANNEALER 02/22/2024 2:38 PM ANNEALER Narrative [facility] - 02/22/2024 3:21 PM ANNEALER RLQ Harrison Taylor MD LAB BODY FLUIDS AND STOOLS OR DERABLES Final Result Performing Organization Address [facility] de Phone Number [facility] [place] [address] * Creatinine, body fluid (02/22/2024 2:19 PM ANNEALER) Specimen type, fld Peritoneal Creatinine, fld 3.43 mg/dL [facility] Comment: The above specimen type is [...] Body Fluid Reference Intervals and/or Interpretative Information. [email or web address] Current Interpretive Data was last revised 2018. Fluid 02/22/2024 2:19 PM ANNEALER 02/22/2024 2:38 PM ANNEALER Narrative [facility] - 02/22/2024 8:43 PM ANNEALER RLQ Drain #2 Harrison Taylor MD LAB BODY FLUIDS AND STOOLS OR DERABLES Final Result Performing Organization Address [facility] Co de Phone Number [facility] [place] [address] * POCT glucose (02/22/2024 1:48 PM ANNEALER) Glucose, POC 81 70 - 199 mg/dL Blood 02/22/2024 1:48 PM ANNEALER 02/22/2024 1:48 PM ANNEALER us Renetta Jones MD PhD LAB POCT ORDERABLES - DEVICE Fi nal Result Performing Organization Address City/State/[facility] Co ca Phone Number [facility] Department [place] [address] * IR Fluid Drain Soft Tissue (02/22/2024 1:14 PM ANNEALER) Anatomical Region Laterality Modality Body N/A X-Ray Angiograph y 02/22/2024 4:41 PM ANNEALER Addenda Addendum by Harrison Taylor MD on 02/23/2024 1:55 PM ANNEALER This addendum is being placed after cell [...] Harrison Taylor M.D. Impressions 02/22/2024 4:51 PM ANNEALER Successful image guided right lower quadrant fluid [...] Harrison Taylor M.D. Narrative 02/22/2024 4:51 PM ANNEALER EXAMINATION: PERCUTANEOUS DRAINAGE (STD) HISTORY/INDICATION: 63-year-old male [...] was obtained. Prior to beginning the procedure, Pingree Protocol was used to confirm the patient's [...] coiled within the collection before dilating to 12-Emirati. A 12-Emirati cope loop catheter was then advanced over [...] coiled within the collection before dilating to 12-Emirati. A 12-Emirati Cobra catheter was then advanced over the [...] was obtained. Prior to beginning the procedure, Pingree Protocol was used to confirm the patient's [...] coiled within the collection before dilating to 12-Emirati. A 12-Emirati cope loop catheter was then advanced over [...] coiled within the collection before dilating to 12-Emirati. A 12-Emirati Cobra catheter was then advanced over the [...] Cell Differential, Body Fluid (02/22/2024 12:50 PM ANNEALER) Total cells diffed 100 cells Comment: Interpretive Data Unless otherwise specified, the reference range and other method performance specifications have not been established for CSF/Body Fluid tests. The test results should be integrated into the clinical context for interpretation. Current interpretive data was last revised on 2018. Neutrophils, fld 1 % CERNER BJ Lymphs, fld 95 % CERNER BJ Monocyte, fld 4 % CERNER BJ Specimen type, fld Peritoneal CERNER BJ Fluid 02/22/2024 12:5 0 PM ANNEALER 02/22/2024 4:24 PM ANNEALER us Renetta Jones MD PhD LAB BODY FLUIDS AND STOOLS THALIA ESPÑAA Final Result [facility] [place] [address] * (ABNORMAL) Cell count w/rflx diff, body fluid (02/22/2024 12:50 PM ANNEALER) Specimen type, fld Peritoneal Color, fld Olivia CERNER BJ Clarity, fld Cloudy(A) Clear CERNER BJ Nucleated cells, fld 44 /cumm CERNER [facility] Comment: Interpretive Data Unless otherwise specified, the reference range and other method performance specifications have not been established for CSF/Body Fluid tests. The test results should be integrated into the clinical context for interpretation. Current interpretive data was last revised on 2018. RBC, fld 2,832 /cumm [facility] Fluid 02/22/2024 12:5 0 PM ANNEALER 02/22/2024 4:24 PM ANNEALER Narrative [facility] - 02/22/2024 5:35 PM ANNEALER RLQ drain 2 Renetta Jones MD PhD LAB BODY FLUIDS AND STOOLS ORDE RABBÁRBARA Final Result Performing Organization Address City/[facility] Co de Phone Number [facility] [place] [address] * Creatinine, body fluid (02/22/2024 12:50 PM ANNEALER) Specimen type, fld Unknown Creatinine, fld 3.51 mg/dL [facility] Comment: The above specimen type is [...] 2018. Chapter 43, Body Fluids, p. 925 [employer] Test directory, Body Fluid Reference Intervals and/or Interpretative Information. [email or web address] Current Interpretive Data was last revised 2018. Fluid 02/22/2024 12:5 0 PM ANNEALER 02/22/2024 4:23 PM ANNEALER Narrative [facility] - 02/22/2024 6:58 PM ANNEALER RLQ drain 1 us Renetta Jones MD PhD LAB BODY FLUIDS AND STOOLS ORDE RABBÁRBARA Final Result Performing Organization Address City/[facility]/ZIP Co de Phone Number [facility] Department [place] [address] * (ABNORMAL) Potassium, whole blood (02/22/2024 6:27 AM ANNEALER) Potassium, bld 5.0(H) 3.3 - 4.9 mmol/L Comment:Reviewed. Blood 02/22/2024 6:27 AM ANNEALER 02/22/2024 6:36 AM ANNEALER us Vannessa Hein CONDOMINIUM MANAGER LAB BLOOD ORDERABLES Fin al Result Performing Organization Address City/[facility] [place] [place] [address] * POCT glucose (02/22/2024 6:27 AM ANNEALER) Glucose, POC 92 70 - 199 mg/dL Blood 02/22/2024 6:27 AM ANNEALER 02/22/2024 6:27 AM ANNEALER us Renetta Jones MD PhD LAB POCT ORDERABLES - DEVICE Fi nal Result Performing Organization Address [facility] [place] [address] * (ABNORMAL) eGFR (02/22/2024 4:38 AM ANNEALER) eGFR 19(L) >=60 mL/min/1. 73 m2 Comment: [...] Inclusion of Race in Diagnosing Kidney Disease, FARRUKHSN 2020). The CKD-EPI equation should not be used for patients with unstable renal function and has not been validated in children and those over 70. Current interpretive data was last reviewed 2020. Blood 02/22/2024 4:38 AM ANNEALER 02/22/2024 5:26 AM ANNEALER Rhoda LEE LAB BLOOD ORDERABLES Final Result [facility] Department [place] [address] * (ABNORMAL) Differential, auto (02/22/2024 4:38 AM ANNEALER) Neutrophil abs 2.6 1.5 - 6.5 K/cumm Imm gran abs 0.0 0.0 - 0.1 K/cumm [facility] Lymphocyte abs 0.2(L) 0.8 - 3.3 K/cumm [facility] Monocyte abs 0.2 0.2 - 0.8 K/cumm [facility] Eosinophil abs 0.0 0.0 - 0.5 K/cumm [facility] Basophil abs 0.0 0.0 - 0.1 K/cumm [facility] Neutrophil pct 83.7 % [facility] Comment: Interpretive Data Percent cell count reference ranges are not reported, since discordance with absolute values may lead to misinterpretation of CBC data. Current Interpretive Data was last revised on 2017. Imm gran pct 0.6 % [facility] Comment: Interpretive Data Percent cell count reference ranges are not reported, since discordance with absolute values may lead to misinterpretation of CBC data. Current Interpretive Data was last revised on 2017. Lymphocyte pct 6.7 % [facility] Comment: Interpretive Data Percent cell count reference ranges are not reported, since discordance with absolute values may lead to misinterpretation of CBC data. Current Interpretive Data was last revised on 2017. Monocyte pct 6.7 % [facility] Comment: Interpretive Data Percent cell count reference ranges are not reported, since discordance with absolute values may lead to misinterpretation of CBC data. Current Interpretive Data was last revised on 2017. Eosinophil pct 1.3 % [facility] Comment: Interpretive Data Percent cell count reference ranges are not reported, since discordance with absolute values may lead to misinterpretation of CBC data. Current Interpretive Data was last revised on 2017. Basophil pct 1.0 % [facility] Comment: Interpretive Data Percent cell count reference ranges are not reported, since discordance with absolute values may lead to misinterpretation of CBC data. Current Interpretive Data was last revised on 2017. Blood 02/22/2024 4:38 AM ANNEALER 02/22/2024 5:26 AM ANNEALER Rhoda LEE LAB BLOOD ORDERABLES Final Result Performing Organization Address [facility] de Phone Number [facility] [place] [address] * Tacrolimus level trough (02/22/2024 4:38 AM ANNEALER) Pathologist [facility] Tacrolimus trough 8.2 ng/mL Comment: Interpretive Data Testing performed by liquid chromatography-tandem mass spectrometry. Therapeutic concentrations vary depending on type of transplanted organ and time elapsed since transplant. Typical trough concentrations range from 5-15 ng/mL. This test was developed and its performance characteristics determined by the [facility] consistent with CLIA requirements. This test has not been cleared or approved by the [place] Food and Drug administration. Current interpretive data last reviewed 2019. Blood 02/22/2024 4:38 AM ANNEALER 02/22/2024 5:26 AM ANNEALER Rhoda LEE LAB BLOOD ORDERABLES Final Result Performing Organization Address [facility] de Phone Number [facility] [place] [address] * (ABNORMAL) CBC with auto differential (02/22/2024 4:38 AM ANNEALER) Pathologist [facility] WBC 3.1(L) 3.8 - 9.9 K/cumm Hgb 10.8(L) 13.0 - 17.5 g/dL [facility] Hct 32.2(L) 38.9 - 50.3 % [facility] Plt 117(L) 150 - 400 K/cumm [facility] MPV 10.3 9.1 - 12.3 fL [facility] RBC 3.23(L) 4.30 - 5.80 M/cumm [facility] MCV 99.7(H) 81.3 - 96.4 fL [facility] MCH 33.4(H) 27.1 - 33.3 pg [facility] MCHC 33.5 32.3 - 35.7 g/dL [facility] RDW CV 16.9(H) 11.1 - 14.9 % [facility] RDW SD 62.2(H) 35.7 - 48.1 fL [facility] NRBC abs 0.00 0.00 - 0.01 K/cumm [facility] Blood 02/22/2024 4:38 AM ANNEALER 02/22/2024 5:26 AM ANNEALER Rhoda LEE LAB BLOOD ORDERABLES Final Result Performing Organization Address City/[facility]/ZIP Co de Phone Number [facility] Department [place] [address] * Magnesium (02/22/2024 4:38 AM ANNEALER) [facility] Magnesium 1.9 1.4 - 2.5 mg/dL Blood 02/22/2024 4:38 AM ANNEALER 02/22/2024 5:26 AM ANNEALER Rhoda LEE LAB BLOOD ORDERABLES Final Result Performing Organization Address City/[facility] Co de Phone Number [facility] Department [place] [address] * (ABNORMAL) Renal function panel (02/22/2024 4:38 AM ANNEALER) Sodium 140 135 - 145 mmol/L Potassium, pl 5.2(H) 3.3 - 4.9 mmol/L [facility] Chloride 107 97 - 110 mmol/L [facility] CO2 23 22 - 32 mmol/L [facility] Anion gap 10 2 - 15 mmol/L [facility] BUN 46(H) 6 - 25 mg/dL [facility] Creatinine 3.44(H) 0.80 - 1.30 mg/dL [facility] Glucose 94 70 - 199 mg/dL [facility] Comment: Interpretive Data Fasting glucose >/= [...] Calcium 9.5 8.5 - 10.3 mg/dL [facility] Phosphorus, pl 4.5 2.3 - 4.5 mg/dL [facility] Albumin 3.6 3.5 - 5.0 g/dL [facility] Blood 02/22/2024 4:38 AM ANNEALER 02/22/2024 5:26 AM ANNEALER us Rhoda LEE LAB BLOOD ORDERABLES Final Result [facility] Department [place] [address] * POCT glucose (02/21/2024 8:49 PM ANNEALER) Glucose, POC 107 70 - 199 mg/dL Blood 02/21/2024 8:49 PM ANNEALER 02/21/2024 8:49 PM ANNEALER us Renetta Jones MD PhD LAB POCT ORDERABLES - DEVICE Fi nal Result Performing Organization Address City/[facility] Co de Phone Number [facility] [place] [address] * POCT glucose (02/21/2024 5:26 PM ANNEALER) Glucose, POC 108 70 - 199 mg/dL Blood 02/21/2024 5:26 PM ANNEALER 02/21/2024 5:26 PM ANNEALER Renetta Jones MD PhD LAB POCT ORDERABLES - DEVICE Fi nal Result Performing Organization Address [facility] Co de Phone Number [facility] [place] [address] * POCT glucose (02/21/2024 2:08 PM ANNEALER) Glucose, POC 147 70 - 199 mg/dL Blood 02/21/2024 2:08 PM ANNEALER 02/21/2024 2:08 PM ANNEALER Renetta Jones MD PhD LAB POCT ORDERABLES - DEVICE Fi nal Result Performing Organization Address [facility] Co de Phone Number [facility] [place] [address] * (ABNORMAL) eGFR (02/21/2024 2:06 PM ANNEALER) eGFR 20(L) >=60 mL/min/1. 73 m2 Comment: [...] last reviewed 2020. Blood 02/21/2024 2:06 PM ANNEALER 02/21/2024 2:24 PM ANNEALER us Rhoda LEE LAB BLOOD ORDERABLES Final Result [facility] Department [place] [address] * (ABNORMAL) Differential, auto (02/21/2024 2:06 PM ANNEALER) Neutrophil abs 3.3 1.5 - 6.5 K/cumm Imm gran abs 0.0 0.0 - 0.1 K/cumm CERNER [facility] Lymphocyte abs 0.2(L) 0.8 - 3.3 K/cumm [facility] Monocyte abs 0.2 0.2 - 0.8 K/cumm [facility] Eosinophil abs 0.0 0.0 - 0.5 K/cumm [facility] Basophil abs 0.0 0.0 - 0.1 K/cumm [facility] Neutrophil pct 86.3 % [facility] Comment: Interpretive Data Percent cell count reference ranges are not reported, since discordance with absolute values may lead to misinterpretation of CBC data. Current Interpretive Data was last revised on 2017. Imm gran pct 0.8 % [facility] Comment: Interpretive Data Percent cell count reference ranges are not reported, since discordance with absolute values may lead to misinterpretation of CBC data. Current Interpretive Data was last revised on 2017. Lymphocyte pct 4.3 % [facility] Comment: Interpretive Data Percent cell count reference ranges are not reported, since discordance with absolute values may lead to misinterpretation of CBC data. Current Interpretive Data was last revised on 2017. Monocyte pct 6.4 % [facility] Comment: Interpretive Data Percent cell count reference ranges are not reported, since discordance with absolute values may lead to misinterpretation of CBC data. Current Interpretive Data was last revised on 2017. Eosinophil pct 1.1 % [facility] Comment: Interpretive Data Percent cell count reference ranges are not reported, since discordance with absolute values may lead to misinterpretation of CBC data. Current Interpretive Data was last revised on 2017. Basophil pct 1.1 % [facility] Comment: Interpretive Data Percent cell count reference ranges are not reported, since discordance with absolute values may lead to misinterpretation of CBC data. Current Interpretive Data was last revised on 2017. Blood 02/21/2024 2:06 PM ANNEALER 02/21/2024 2:24 PM ANNEALER Rhoda LEE LAB BLOOD ORDERABLES Final Result [facility] Department [place] [address] * (ABNORMAL) CBC with auto differential (02/21/2024 2:06 PM ANNEALER) WBC 3.8 3.8 - 9.9 K/cumm Hgb 10.9(L) 13.0 - 17.5 g/dL [facility] Hct 32.3(L) 38.9 - 50.3 % [facility] Plt 123(L) 150 - 400 K/cumm [facility] MPV 10.0 9.1 - 12.3 fL [facility] RBC 3.26(L) 4.30 - 5.80 M/cumm [facility] MCV 99.1(H) 81.3 - 96.4 fL [facility] MCH 33.4(H) 27.1 - 33.3 pg [facility] MCHC 33.7 32.3 - 35.7 g/dL [facility] RDW CV 17.0(H) 11.1 - 14.9 % [facility] RDW SD 61.9(H) 35.7 - 48.1 fL [facility] NRBC abs 0.00 0.00 - 0.01 K/cumm [facility] Blood 02/21/2024 2:06 PM ANNEALER 02/21/2024 2:24 PM ANNEALER Rhoda LEE LAB BLOOD ORDERABLES Final Result Performing Organization Address [facility] de Phone Number [facility] [place] [address] * Protime-INR (02/21/2024 2:06 PM ANNEALER) PT 12.0 9.7 - 13.0 sec INR 1.11 0.90 - 1.20 [facility] Comment: Interpretive data Oral anticoagulant therapeutic ranges: Venous thromboembolism prophylaxis or treatment: 2.0-3.0 CARDIOLOGY Standard range: 2.0-3.0 High-intensity range: 2.5-3.5 Refer to indication-specific guidelines for appropriate target ranges for prosthetic heart valve replacement. Current interpretive data was last revised on 2019. Blood 02/21/2024 2:06 PM ANNEALER 02/21/2024 2:24 PM ANNEALER Rhoda LEE LAB BLOOD ORDERABLES Final Result Performing Organization Address [facility] [place] [address] * Magnesium (02/21/2024 2:06 PM ANNEALER) Magnesium 1.9 1.4 - 2.5 mg/dL Blood 02/21/2024 2:06 PM ANNEALER 02/21/2024 2:24 PM ANNEALER Rhoda LEE LAB BLOOD ORDERABLES Final Result Performing Organization Address [facility] de Phone Number [facility] [place] [address] * (ABNORMAL) Renal function panel (02/21/2024 2:06 PM ANNEALER) Sodium 140 135 - 145 mmol/L Potassium, pl 4.9 3.3 - 4.9 mmol/L [facility] Chloride 107 97 - 110 mmol/L [facility] CO2 23 22 - 32 mmol/L [facility] Anion gap 10 2 - 15 mmol/L [facility] BUN 45(H) 6 - 25 mg/dL [facility] Creatinine 3.25(H) 0.80 - 1.30 mg/dL [facility] Glucose 145 70 - 199 mg/dL [facility] Comment: Interpretive Data Fasting glucose >/= [...] Calcium 9.4 8.5 - 10.3 mg/dL [facility] Phosphorus, pl 4.2 2.3 - 4.5 mg/dL [facility] Albumin 3.7 3.5 - 5.0 g/dL [facility] Blood 02/21/2024 2:06 PM ANNEALER 02/21/2024 2:24 PM ANNEALER us Rhoda LEE LAB BLOOD ORDERABLES Final Result [facility] Department [place] [address] * ECG 12 lead (02/17/2024 4:29 PM ANNEALER) us Marian Merino MD ECG ORDERABLES Edited Res ult - Final * CT Abdomen Pelvis WO Contrast (02/17/2024 11:48 AM ANNEALER) Anatomical Region Laterality Modality Body N/A Computed Tomogra phy 02/17/2024 12:1 1 PM ANNEALER Impressions 02/17/2024 12:37 PM ANNEALER 1. Postsurgical changes of prior right lower [...] Kathy Turpin M.D. Narrative 02/17/2024 12:37 PM ANNEALER EXAMINATION: Computed tomography of the abdomen and [...] in the urinary bladder without hydronephrosis. Atrophic [place] bilateral kidneys with extensive atherosclerotic calcifications of [...] in the urinary bladder without hydronephrosis. Atrophic [place] bilateral kidneys with extensive atherosclerotic calcifications of [...] ult * (ABNORMAL) eGFR (02/17/2024 10:25 AM ANNEALER) eGFR 23(L) >=60 mL/min/1. 73 m2 Comment: [...] reviewed 2020. Blood 02/17/2024 10:2 5 AM ANNEALER 02/17/2024 10:57 AM ANNEALER us Jack Morrison MD LAB BLOOD ORDERABLES Final R esult LINDA [facility] Department [place] [address] * (ABNORMAL) Differential, auto (02/17/2024 10:25 AM ANNEALER) Neutrophil abs 3.9 1.5 - 6.5 K/cumm Imm gran abs 0.0 0.0 - 0.1 K/cumm [facility] Lymphocyte abs 0.2(L) 0.8 - 3.3 K/cumm [facility] Monocyte abs 0.2 0.2 - 0.8 K/cumm [facility] Eosinophil abs 0.1 0.0 - 0.5 K/cumm [facility] Basophil abs 0.1 0.0 - 0.1 K/cumm [facility] Neutrophil pct 86.9 % [facility] Comment: Interpretive Data Percent cell count reference ranges are not reported, since discordance with absolute values may lead to misinterpretation of CBC data. Current Interpretive Data was last revised on 2017. Imm gran pct 0.7 % [facility] Comment: Interpretive Data Percent cell count reference ranges are not reported, since discordance with absolute values may lead to misinterpretation of CBC data. Current Interpretive Data was last revised on 2017. Lymphocyte pct 3.8 % [facility] Comment: Interpretive Data Percent cell count reference ranges are not reported, since discordance with absolute values may lead to misinterpretation of CBC data. Current Interpretive Data was last revised on 2017. Monocyte pct 5.1 % [facility] Comment: Interpretive Data Percent cell count reference ranges are not reported, since discordance with absolute values may lead to misinterpretation of CBC data. Current Interpretive Data was last revised on 2017. Eosinophil pct 2.2 % [facility] Comment: Interpretive Data Percent cell count reference ranges are not reported, since discordance with absolute values may lead to misinterpretation of CBC data. Current Interpretive Data was last revised on 2017. Basophil pct 1.3 % [facility] Comment: Interpretive Data Percent cell count reference ranges are not reported, since discordance with absolute values may lead to misinterpretation of CBC data. Current Interpretive Data was last revised on 2017. Blood 02/17/2024 10:2 5 AM ANNEALER 02/17/2024 10:57 AM ANNEALER us Jack Morrison MD LAB BLOOD ORDERABLES Final R esult Performing Organization Address [facility] de Phone Number [facility] Department [place] [address] * (ABNORMAL) CBC with auto differential (02/17/2024 10:25 AM ANNEALER) [facility] WBC 4.5 3.8 - 9.9 K/cumm Hgb 11.4(L) 13.0 - 17.5 g/dL [facility] Hct 34.8(L) 38.9 - 50.3 % [facility] Plt 144(L) 150 - 400 K/cumm [facility] MPV 10.3 9.1 - 12.3 fL [facility] RBC 3.43(L) 4.30 - 5.80 M/cumm [facility] MCV 101.5(H) 81.3 - 96.4 fL [facility] MCH 33.2 27.1 - 33.3 pg [facility] MCHC 32.8 32.3 - 35.7 g/dL [facility] RDW CV 17.3(H) 11.1 - 14.9 % [facility] RDW SD 64.6(H) 35.7 - 48.1 fL [facility] NRBC abs 0.00 0.00 - 0.01 K/cumm [facility] Blood 02/17/2024 10:2 5 AM ANNEALER 02/17/2024 10:57 AM ANNEALER us Jack Morrison MD LAB BLOOD ORDERABLES Final R esult Performing Organization Address [facility] Co de Phone Number [facility] [place] [address] * Tacrolimus level random (02/17/2024 10:25 AM ANNEALER) [facility] Tacrolimus random 2.4 ng/mL Comment: Interpretive Data Testing performed by liquid chromatography-tandem mass spectrometry. Therapeutic concentrations vary depending on type of transplanted organ and time elapsed since transplant. Typical trough concentrations range from 5-15 ng/mL. This test was developed and its performance characteristics determined by the [facility] consistent with CLIA requirements. This test has not been cleared or approved by the [place] Food and Drug administration. Current interpretive data last reviewed 2019. Blood 02/17/2024 10:2 5 AM ANNEALER 02/17/2024 10:57 AM ANNEALER Jack Morrison MD LAB BLOOD ORDERABLES Final R esult Performing Organization Address [facility] de Phone Number LINDA [facility] [place] [address] * Hepatitis B (HBV) DNA PCR, quantitative Blood (02/17/2024 10:25 AM ANNEALER) [facility] HBV DNA Result Not Detected [facility] Comment: The quantifiable range of this assay is 10 IU/mL to 1,000,000,000 IU/mL (1.00 log IU/mL to 9.00 log IU/mL). Testing was performed by the [employer] [id number] HBV Test version 2.0 ([employer] Testing performed at [facility] Current Interpretive Data was last revised on 2020. Blood 02/17/2024 10:2 5 AM ANNEALER 02/17/2024 11:20 AM ANNEALER Result [facility] Jack Morrison MD LAB MICROBIOLOGY - GENERAL O RDERABLES Final Result Performing Organization Address [facility] de Phone Number [facility] [place] [address] [facility] * HIV-1 RNA PCR, quantitative Blood (02/17/2024 10:25 AM ANNEALER) [facility] HIV-1 RNA Not Detected [facility] Comment: The quantifiable range of this assay is 20 copies/mL to 10,000,000 copies/mL (1.30 log copies/mL to 7.00 log copies/mL). Testing was performed by the WALDEMAR 6800 HIV-1 Test([employer] Testing performed at [facility] Current Interpretive Data was last revised on 2020. Blood 02/17/2024 10:2 5 AM ANNEALER 02/17/2024 11:20 AM ANNEALER Jack Morrison MD LAB MICROBIOLOGY - GENERAL O RDERABLES Final Result Performing Organization Address [facility] de Phone Number [facility] [place] [address] [facility] * Hepatitis C (HCV) RNA PCR, quantitative Blood (02/17/2024 10:25 AM ANNEALER) HCV RNA result Not Detected [facility] Comment: The quantifiable range of this assay is 15 IU/mL to 100,000,000 IU/mL (1.18 log IU/mL to 8.00 log IU/mL). Testing was performed by the WALDEMAR 6800 HCV Test ([employer] Testing performed at [facility] Current Interpretive Data was last revised on 2020 Blood 02/17/2024 10:2 5 AM ANNEALER 02/17/2024 11:20 AM ANNEALER Result [facility] Jack Morrison MD LAB MICROBIOLOGY - GENERAL O RDERABLES Final Result Performing Organization Address [facility] de Phone Number [facility] [place] [address] [facility] * Magnesium (02/17/2024 10:25 AM ANNEALER) Pathologist [facility] Magnesium 1.7 1.4 - 2.5 mg/dL Blood 02/17/2024 10:2 5 AM ANNEALER 02/17/2024 10:57 AM ANNEALER Result [facility] Jack Morrison MD LAB BLOOD ORDERABLES Final R esult Performing Organization Address [facility] Co de Phone Number [facility] [place] [address] * (ABNORMAL) Renal function panel (02/17/2024 10:25 AM ANNEALER) Sodium 142 135 - 145 mmol/L Potassium, pl 5.0(H) 3.3 - 4.9 mmol/L [facility] Chloride 107 97 - 110 mmol/L [facility] CO2 21(L) 22 - 32 mmol/L [facility] Anion gap 14 2 - 15 mmol/L [facility] BUN 48(H) 6 - 25 mg/dL [facility] Creatinine 2.98(H) 0.80 - 1.30 mg/dL [facility] Glucose 79 70 - 199 mg/dL [facility] Comment: Interpretive Data Fasting glucose >/= [...] Calcium 10.0 8.5 - 10.3 mg/dL [facility] Phosphorus, pl 3.2 2.3 - 4.5 mg/dL [facility] Albumin 3.8 3.5 - 5.0 g/dL [facility] Blood 02/17/2024 10:2 5 AM ANNEALER 02/17/2024 10:57 AM ANNEALER us Jack Morrison MD LAB BLOOD ORDERABLES Final R esult [facility] Department [place] [address] * (ABNORMAL) eGFR (02/11/2024 9:00 AM ANNEALER) eGFR 19(L) >=60 mL/min/1. 73 m2 Comment: [...] last reviewed 2020. Blood 02/11/2024 9:00 AM ANNEALER 02/11/2024 11:51 AM ANNEALER Rosalie Velásquez NP LAB BLOOD ORDERABLES Final Result [facility] Department [place] [address] * (ABNORMAL) Differential, auto (02/11/2024 9:00 AM ANNEALER) Neutrophil abs 4.6 1.5 - 6.5 K/cumm Imm gran abs 0.0 0.0 - 0.1 K/cumm [facility] Lymphocyte abs 0.2(L) 0.8 - 3.3 K/cumm [facility] Monocyte abs 0.2 0.2 - 0.8 K/cumm [facility] Eosinophil abs 0.1 0.0 - 0.5 K/cumm [facility] Basophil abs 0.1 0.0 - 0.1 K/cumm [facility] Neutrophil pct 89.6 % [facility] Comment: Interpretive Data Percent cell count reference ranges are not reported, since discordance with absolute values may lead to misinterpretation of CBC data. Current Interpretive Data was last revised on 2017. Imm gran pct 0.6 % [facility] Comment: Interpretive Data Percent cell count reference ranges are not reported, since discordance with absolute values may lead to misinterpretation of CBC data. Current Interpretive Data was last revised on 2017. Lymphocyte pct 3.3 % LINDA [facility] Comment: Interpretive Data Percent cell count reference ranges are not reported, since discordance with absolute values may lead to misinterpretation of CBC data. Current Interpretive Data was last revised on 2017. Monocyte pct 3.9 % LINDA [facility] Comment: Interpretive Data Percent cell count reference ranges are not reported, since discordance with absolute values may lead to misinterpretation of CBC data. Current Interpretive Data was last revised on 2017. Eosinophil pct 1.6 % LINDA [facility] Comment: Interpretive Data Percent cell count reference ranges are not reported, since discordance with absolute values may lead to misinterpretation of CBC data. Current Interpretive Data was last revised on 2017. Basophil pct 1.0 % LINDA [facility] Comment: Interpretive Data Percent cell count reference ranges are not reported, since discordance with absolute values may lead to misinterpretation of CBC data. Current Interpretive Data was last revised on 2017. Blood 02/11/2024 9:00 AM ANNEALER 02/11/2024 11:48 AM ANNEALER Rosalie Velásquez NP LAB BLOOD ORDERABLES Final Result [facility] Department [place] [address] * Tacrolimus level trough (02/11/2024 9:00 AM ANNEALER) Tacrolimus trough 7.8 ng/mL Comment: Interpretive Data Testing performed by liquid chromatography-tandem mass spectrometry. Therapeutic concentrations vary depending on type of transplanted organ and time elapsed since transplant. Typical trough concentrations range from 5-15 ng/mL. This test was developed and its performance characteristics determined by the [facility] consistent with CLIA requirements. This test has not been cleared or approved by the US Food and Drug administration. Current interpretive data last reviewed 2019. Blood 02/11/2024 9:00 AM ANNEALER 02/11/2024 11:48 AM ANNEALER Rosalie Velásquez CONDOMINIUM MANAGER LAB BLOOD ORDERABLES Final Result [facility] Department [place] [address] * (ABNORMAL) CBC with auto differential (02/11/2024 9:00 AM ANNEALER) WBC 5.1 3.8 - 9.9 K/cumm Hgb 10.0(L) 13.0 - 17.5 g/dL [facility] Hct 30.9(L) 38.9 - 50.3 % [facility] Plt 168 150 - 400 K/cumm [facility] MPV 9.9 9.1 - 12.3 fL [facility] RBC 2.94(L) 4.30 - 5.80 M/cumm [facility] MCV 105.1(H) 81.3 - 96.4 fL [facility] MCH 34.0(H) 27.1 - 33.3 pg [facility] MCHC 32.4 32.3 - 35.7 g/dL [facility] RDW CV 18.3(H) 11.1 - 14.9 % [facility] RDW SD 70.2(H) 35.7 - 48.1 fL [facility] NRBC abs 0.00 0.00 - 0.01 K/cumm [facility] Blood 02/11/2024 9:00 AM ANNEALER 02/11/2024 11:48 AM ANNEALER us Rosalie Velásquez CONDOMINIUM MANAGER LAB BLOOD ORDERABLES Final Result [facility] Department [place] [address] * Magnesium (02/11/2024 9:00 AM ANNEALER) Magnesium 1.9 1.4 - 2.5 mg/dL Blood 02/11/2024 9:00 AM ANNEALER 02/11/2024 11:48 AM ANNEALER Rosalie Velásquez CONDOMINIUM MANAGER LAB BLOOD ORDERABLES Final Result [facility] Department [place] [address] * (ABNORMAL) Renal function panel (02/11/2024 9:00 AM ANNEALER) Sodium 141 135 - 145 mmol/L Potassium, pl 4.9 3.3 - 4.9 mmol/L [facility] Chloride 105 97 - 110 mmol/L [facility] CO2 25 22 - 32 mmol/L [facility] Anion gap 11 2 - 15 mmol/L [facility] BUN 61(H) 6 - 25 mg/dL [facility] Creatinine 3.49(H) 0.80 - 1.30 mg/dL [facility] Glucose 103 70 - 199 mg/dL [facility] Comment: Interpretive Data Fasting glucose >/= [...] Calcium 9.8 8.5 - 10.3 mg/dL [facility] Phosphorus, pl 4.6(H) 2.3 - 4.5 mg/dL [facility] Albumin 3.7 3.5 - 5.0 g/dL [facility] Blood 02/11/2024 9:00 AM ANNEALER 02/11/2024 11:48 AM ANNEALER Rosalie Velásquez CONDOMINIUM MANAGER LAB BLOOD ORDERABLES Final Result [facility] Department [place] [address] * CT Abdomen Pelvis WO Contrast (02/09/2024 3:42 PM ANNEALER) Anatomical Region Laterality Modality Body N/A Computed Tomogra phy 02/09/2024 4:37 PM ANNEALER Impressions 02/09/2024 4:44 PM ANNEALER Postsurgical changes of right iliac fossa kidney [...] Mohsen Vallejo M.D. Narrative 02/09/2024 4:44 PM ANNEALER EXAMINATION: Computed tomography of the abdomen and [...] ductal dilatation. Normal spleen, adrenals, pancreas. Atrophic [place] kidneys. No stones or hydronephrosis of the [place] kidneys. Postsurgical changes of right iliac fossa [...] ductal dilatation. Normal spleen, adrenals, pancreas. Atrophic [place] kidneys. No stones or hydronephrosis of the [place] kidneys. Postsurgical changes of right iliac fossa [...] * Creatinine, body fluid (02/09/2024 3:29 PM ANNEALER) Specimen type, fld Peritoneal Creatinine, fld 4.16 [...] 2018. Chapter 43, Body Fluids, p. 925 [employer] Test directory, Body Fluid Reference Intervals and/or Interpretative Information. [email or web address] Current Interpretive Data was last revised 2018. Fluid 02/09/2024 3:29 PM ANNEALER 02/09/2024 6:15 PM ANNEALER Vikki Nowak NP LAB BODY FLUIDS AND STOOLS OR DERABLES Final Result [facility] Department [place] [address] * (ABNORMAL) eGFR (02/09/2024 9:00 AM ANNEALER) eGFR 16(L) >=60 mL/min/1. 73 m2 Comment: [...] last reviewed 2020. Blood 02/09/2024 9:00 AM ANNEALER 02/09/2024 12:18 PM ANNEALER us Notinfile Unknown LAB BLOOD ORDERABLES Final Res ult [facility] Department [place] [address] * (ABNORMAL) Differential, auto (02/09/2024 9:00 AM ANNEALER) Neutrophil abs 4.5 1.5 - 6.5 K/cumm Imm gran abs 0.0 0.0 - 0.1 K/cumm [facility] Lymphocyte abs 0.1(L) 0.8 - 3.3 K/cumm [facility] Monocyte abs 0.2 0.2 - 0.8 K/cumm [facility] Eosinophil abs 0.1 0.0 - 0.5 K/cumm [facility] Basophil abs 0.1 0.0 - 0.1 K/cumm [facility] Neutrophil pct 89.8 % [facility] Comment: Interpretive Data Percent cell count reference ranges are not reported, since discordance with absolute values may lead to misinterpretation of CBC data. Current Interpretive Data was last revised on 2017. Imm gran pct 0.2 % [facility] Comment: Interpretive Data Percent cell count reference ranges are not reported, since discordance with absolute values may lead to misinterpretation of CBC data. Current Interpretive Data was last revised on 2017. Lymphocyte pct 2.8 % [facility] Comment: Interpretive Data Percent cell count reference ranges are not reported, since discordance with absolute values may lead to misinterpretation of CBC data. Current Interpretive Data was last revised on 2017. Monocyte pct 4.2 % [facility] Comment: Interpretive Data Percent cell count reference ranges are not reported, since discordance with absolute values may lead to misinterpretation of CBC data. Current Interpretive Data was last revised on 2017. Eosinophil pct 2.0 % [facility] Comment: Interpretive Data Percent cell count reference ranges are not reported, since discordance with absolute values may lead to misinterpretation of CBC data. Current Interpretive Data was last revised on 2017. Basophil pct 1.0 % [facility] Comment: Interpretive Data Percent cell count reference ranges are not reported, since discordance with absolute values may lead to misinterpretation of CBC data. Current Interpretive Data was last revised on 2017. Blood 02/09/2024 9:00 AM ANNEALER 02/09/2024 11:59 AM ANNEALER us Notinfile Unknown LAB BLOOD ORDERABLES Final Res ult Performing Organization Address [facility] de Phone Number LINDA [facility] Department [place] [address] * Tacrolimus level trough (02/09/2024 9:00 AM ANNEALER) Tacrolimus trough 7.5 ng/mL Comment: Interpretive Data Testing performed by liquid chromatography-tandem mass spectrometry. Therapeutic concentrations vary depending on type of transplanted organ and time elapsed since transplant. Typical trough concentrations range from 5-15 ng/mL. This test was developed and its performance characteristics determined by the [facility] consistent with CLIA requirements. This test has not been cleared or approved by the US Food and Drug administration. Current interpretive data last reviewed 2019. Blood 02/09/2024 9:00 AM ANNEALER 02/09/2024 12:01 PM ANNEALER us Notinfile Unknown LAB BLOOD ORDERABLES Final Res ult Performing Organization Address [facility] Co de Phone Number LINDA [facility] [place] [address] * (ABNORMAL) CBC with auto differential (02/09/2024 9:00 AM ANNEALER) WBC 5.0 3.8 - 9.9 K/cumm Hgb 9.7(L) 13.0 - 17.5 g/dL [facility] Hct 30.2(L) 38.9 - 50.3 % [facility] Plt 163 150 - 400 K/cumm [facility] MPV 10.4 9.1 - 12.3 fL [facility] RBC 2.91(L) 4.30 - 5.80 M/cumm [facility] MCV 103.8(H) 81.3 - 96.4 fL [facility] MCH 33.3 27.1 - 33.3 pg [facility] MCHC 32.1(L) 32.3 - 35.7 g/dL [facility] RDW CV 18.4(H) 11.1 - 14.9 % [facility] RDW SD 69.5(H) 35.7 - 48.1 fL [facility] NRBC abs 0.00 0.00 - 0.01 K/cumm [facility] Blood 02/09/2024 9:00 AM ANNEALER 02/09/2024 11:59 AM ANNEALER us Notinfile Unknown LAB BLOOD ORDERABLES Final Res ult Performing Organization Address City/[facility]/ZIP Co de Phone Number [facility] [place] [address] * Magnesium (02/09/2024 9:00 AM ANNEALER) Pathologist [facility] Magnesium 2.0 1.4 - 2.5 mg/dL Blood 02/09/2024 9:00 AM ANNEALER 02/09/2024 11:59 AM ANNEALER us Notinfile Unknown LAB BLOOD ORDERABLES Final Res ult Performing Organization Address City/[facility]/ZIP Co de Phone Number [facility] [place] [address] * (ABNORMAL) Renal function panel (02/09/2024 9:00 AM ANNEALER) Sodium 143 135 - 145 mmol/L Potassium, pl 4.6 3.3 - 4.9 mmol/L [facility] Chloride 104 97 - 110 mmol/L [facility] CO2 27 22 - 32 mmol/L [facility] Anion gap 12 2 - 15 mmol/L [facility] BUN 60(H) 6 - 25 mg/dL [facility] Creatinine 3.91(H) 0.80 - 1.30 mg/dL [facility] Glucose 129 70 - 199 mg/dL [facility] Comment: Interpretive Data Fasting glucose >/= [...] Calcium 9.9 8.5 - 10.3 mg/dL [facility] Phosphorus, pl 4.5 2.3 - 4.5 mg/dL [facility] Albumin 3.7 3.5 - 5.0 g/dL [facility] Blood 02/09/2024 9:00 AM ANNEALER 02/09/2024 11:59 AM ANNEALER us Notinfile Unknown LAB BLOOD ORDERABLES Final Res ult [facility] Department [place] [address] * (ABNORMAL) eGFR (02/04/2024 8:52 AM ANNEALER) eGFR 17(L) >=60 mL/min/1. 73 m2 Comment: [...] last reviewed 2020. Blood 02/04/2024 8:52 AM ANNEALER 02/04/2024 1:15 PM ANNEALER us Notinfile Unknown LAB BLOOD ORDERABLES Final Res ult [facility] Department [place] [address] * (ABNORMAL) Differential, auto (02/04/2024 8:52 AM ANNEALER) Neutrophil abs 6.1 1.5 - 6.5 K/cumm Imm gran abs 0.0 0.0 - 0.1 K/cumm [facility] Lymphocyte abs 0.1(L) 0.8 - 3.3 K/cumm [facility] Monocyte abs 0.4 0.2 - 0.8 K/cumm [facility] Eosinophil abs 0.1 0.0 - 0.5 K/cumm [facility] Basophil abs 0.0 0.0 - 0.1 K/cumm [facility] Neutrophil pct 90.2 % [facility] Comment: Interpretive Data Percent cell count reference ranges are not reported, since discordance with absolute values may lead to misinterpretation of CBC data. Current Interpretive Data was last revised on 2017. Imm gran pct 0.6 % [facility] Comment: Interpretive Data Percent cell count reference ranges are not reported, since discordance with absolute values may lead to misinterpretation of CBC data. Current Interpretive Data was last revised on 2017. Lymphocyte pct 1.9 % [facility] Comment: Interpretive Data Percent cell count reference ranges are not reported, since discordance with absolute values may lead to misinterpretation of CBC data. Current Interpretive Data was last revised on 2017. Monocyte pct 5.4 % [facility] Comment: Interpretive Data Percent cell count reference ranges are not reported, since discordance with absolute values may lead to misinterpretation of CBC data. Current Interpretive Data was last revised on 2017. Eosinophil pct 1.5 % CERNER [facility] Comment: Interpretive Data Percent cell count reference ranges are not reported, since discordance with absolute values may lead to misinterpretation of CBC data. Current Interpretive Data was last revised on 2017. Basophil pct 0.4 % [facility] Comment: Interpretive Data Percent cell count reference ranges are not reported, since discordance with absolute values may lead to misinterpretation of CBC data. Current Interpretive Data was last revised on 2017. Blood 02/04/2024 8:52 AM ANNEALER 02/04/2024 1:09 PM ANNEALER us Notinfile Unknown LAB BLOOD ORDERABLES Final Res ult Performing Organization Address [facility] de Phone Number [facility] Department [place] [address] * Tacrolimus level trough (02/04/2024 8:52 AM ANNEALER) [facility] Signature Tacrolimus trough 7.8 ng/mL Comment: Interpretive Data Testing performed by liquid chromatography-tandem mass spectrometry. Therapeutic concentrations vary depending on type of transplanted organ and time elapsed since transplant. Typical trough concentrations range from 5-15 ng/mL. This test was developed and its performance characteristics determined by the [facility] consistent with CLIA requirements. This test has not been cleared or approved by the US Food and Drug administration. Current interpretive data last reviewed 2019. Blood 02/04/2024 8:52 AM ANNEALER 02/04/2024 1:09 PM ANNEALER us Notinfile Unknown LAB BLOOD ORDERABLES Final Res ult Performing Organization Address [facility] Co de Phone Number [facility] Department [place] [address] * (ABNORMAL) CBC with auto differential (02/04/2024 8:52 AM ANNEALER) Pathologist [facility] WBC 6.8 3.8 - 9.9 K/cumm Hgb 9.1(L) 13.0 - 17.5 g/dL [facility] Hct 27.6(L) 38.9 - 50.3 % [facility] Plt 141(L) 150 - 400 K/cumm [facility] MPV 10.8 9.1 - 12.3 fL [facility] RBC 2.71(L) 4.30 - 5.80 M/cumm [facility] MCV 101.8(H) 81.3 - 96.4 fL [facility] MCH 33.6(H) 27.1 - 33.3 pg [facility] MCHC 33.0 32.3 - 35.7 g/dL [facility] RDW CV 18.4(H) 11.1 - 14.9 % [facility] RDW SD 67.1(H) 35.7 - 48.1 fL [facility] NRBC abs 0.00 0.00 - 0.01 K/cumm [facility] Blood 02/04/2024 8:52 AM ANNEALER 02/04/2024 1:09 PM ANNEALER us Notinfile Unknown LAB BLOOD ORDERABLES Final Res ult Performing Organization Address City/[facility]/ZIP Co de Phone Number [facility] Department [place] [address] * Magnesium (02/04/2024 8:52 AM ANNEALER) Pathologist [facility] Magnesium 2.2 1.4 - 2.5 mg/dL Blood 02/04/2024 8:52 AM ANNEALER 02/04/2024 1:07 PM ANNEALER us Notinfile Unknown LAB BLOOD ORDERABLES Final Res ult [facility] Department [place] [address] * Creatinine, body fluid (02/04/2024 8:52 AM ANNEALER) Specimen type, fld [employer]. PG Creatinine, fld 3.53 mg/dL [facility] Comment: The above specimen type is [...] 2018. Chapter 43, Body Fluids, p. 925 [employer] Test directory, Body Fluid Reference Intervals and/or Interpretative Information. [email or web address] Current Interpretive Data was last revised 2018. Fluid 02/04/2024 8:52 AM ANNEALER 02/04/2024 1:09 PM ANNEALER us Notinfile Unknown LAB BODY FLUIDS AND STOOLS ORD ERABLES Final Result LINDA [facility] Department [place] [address] * (ABNORMAL) Renal function panel (02/04/2024 8:52 AM ANNEALER) Pathologist [facility] Sodium 138 135 - 145 mmol/L Potassium, pl 3.8 3.3 - 4.9 mmol/L [facility] Chloride 98 97 - 110 mmol/L [facility] CO2 31 22 - 32 mmol/L [facility] Anion gap 9 2 - 15 mmol/L [facility] BUN 38(H) 6 - 25 mg/dL [facility] Creatinine 3.73(H) 0.80 - 1.30 mg/dL [facility] Glucose 126 70 - 199 mg/dL [facility] Comment: Interpretive Data Fasting glucose >/= [...] Calcium 9.4 8.5 - 10.3 mg/dL [facility] Phosphorus, pl 4.9(H) 2.3 - 4.5 mg/dL [facility] Albumin 3.5 3.5 - 5.0 g/dL [facility] Blood 02/04/2024 8:52 AM ANNEALER 02/04/2024 1:07 PM ANNEALER us Notinfile Unknown LAB BLOOD ORDERABLES Final Res ult [facility] Department [place] [address] * (ABNORMAL) eGFR (02/02/2024 9:00 AM ANNEALER) eGFR 15(L) >=60 mL/min/1. 73 m2 Comment: [...] last reviewed 2020. Blood 02/02/2024 9:00 AM ANNEALER 02/02/2024 7:39 PM ANNEALER us Matthew Marti MD LAB BLOOD ORDERABLES Final Result [facility] Department [place] [address] * (ABNORMAL) Differential, auto (02/02/2024 9:00 AM ANNEALER) Neutrophil abs 6.9(H) 1.5 - 6.5 K/cumm Imm gran abs 0.1 0.0 - 0.1 K/cumm [facility] Lymphocyte abs 0.1(L) 0.8 - 3.3 K/cumm [facility] Monocyte abs 0.5 0.2 - 0.8 K/cumm [facility] Eosinophil abs 0.2 0.0 - 0.5 K/cumm [facility] Basophil abs 0.0 0.0 - 0.1 K/cumm [facility] Neutrophil pct 88.8 % [facility] Comment: Interpretive Data Percent cell count reference ranges are not reported, since discordance with absolute values may lead to misinterpretation of CBC data. Current Interpretive Data was last revised on 2017. Imm gran pct 1.0 % [facility] Comment: Interpretive Data Percent cell count reference ranges are not reported, since discordance with absolute values may lead to misinterpretation of CBC data. Current Interpretive Data was last revised on 2017. Lymphocyte pct 1.8 % [facility] Comment: Interpretive Data Percent cell count reference ranges are not reported, since discordance with absolute values may lead to misinterpretation of CBC data. Current Interpretive Data was last revised on 2017. Monocyte pct 5.8 % [facility] Comment: Interpretive Data Percent cell count reference ranges are not reported, since discordance with absolute values may lead to misinterpretation of CBC data. Current Interpretive Data was last revised on 2017. Eosinophil pct 2.1 % [facility] Comment: Interpretive Data Percent cell count reference ranges are not reported, since discordance with absolute values may lead to misinterpretation of CBC data. Current Interpretive Data was last revised on 2017. Basophil pct 0.5 % [facility] Comment: Interpretive Data Percent cell count reference ranges are not reported, since discordance with absolute values may lead to misinterpretation of CBC data. Current Interpretive Data was last revised on 2017. Blood 02/02/2024 9:00 AM ANNEALER 02/02/2024 7:37 PM ANNEALER Matthew Marti MD LAB BLOOD ORDERABLES Final Result Performing Organization Address [facility] de Phone Number [facility] [place] [address] * Tacrolimus level trough (02/02/2024 9:00 AM ANNEALER) [facility] Tacrolimus trough 8.2 ng/mL Comment: Interpretive Data Testing performed by liquid chromatography-tandem mass spectrometry. Therapeutic concentrations vary depending on type of transplanted organ and time elapsed since transplant. Typical trough concentrations range from 5-15 ng/mL. This test was developed and its performance characteristics determined by the [facility] consistent with CLIA requirements. This test has not been cleared or approved by the US Food and Drug administration. Current interpretive data last reviewed 2019. Blood 02/02/2024 9:00 AM ANNEALER 02/02/2024 7:37 PM ANNEALER Matthew Marti MD LAB BLOOD ORDERABLES Final Result Performing Organization Address [facility] de Phone Number [facility] [place] [address] * (ABNORMAL) CBC with auto differential (02/02/2024 9:00 AM ANNEALER) [facility] WBC 7.7 3.8 - 9.9 K/cumm Hgb 9.6(L) 13.0 - 17.5 g/dL [facility] Hct 29.6(L) 38.9 - 50.3 % [facility] Plt 180 150 - 400 K/cumm [facility] MPV 11.1 9.1 - 12.3 fL [facility] RBC 2.92(L) 4.30 - 5.80 M/cumm [facility] MCV 101.4(H) 81.3 - 96.4 fL [facility] MCH 32.9 27.1 - 33.3 pg [facility] MCHC 32.4 32.3 - 35.7 g/dL [facility] RDW CV 18.3(H) 11.1 - 14.9 % [facility] RDW SD 64.1(H) 35.7 - 48.1 fL [facility] NRBC abs 0.02(H) 0.00 - 0.01 K/cumm [facility] Blood 02/02/2024 9:00 AM ANNEALER 02/02/2024 7:37 PM ANNEALER Matthew Marti MD LAB BLOOD ORDERABLES Final Result Performing Organization Address [facility] Co de Phone Number [facility] Department [place] [address] * Magnesium (02/02/2024 9:00 AM ANNEALER) [facility] Magnesium 2.0 1.4 - 2.5 mg/dL Blood 02/02/2024 9:00 AM ANNEALER 02/02/2024 7:36 PM ANNEALER Matthew Marti MD LAB BLOOD ORDERABLES Final Result Performing Organization Address [facility] Co de Phone Number [facility] Department [place] [address] * (ABNORMAL) Renal function panel (02/02/2024 9:00 AM ANNEALER) Pathologist [facility] Sodium 141 135 - 145 mmol/L Potassium, pl 3.4 3.3 - 4.9 mmol/L [facility] Chloride 95(L) 97 - 110 mmol/L [facility] CO2 29 22 - 32 mmol/L [facility] Anion gap 17(H) 2 - 15 mmol/L [facility] BUN 41(H) 6 - 25 mg/dL [facility] Creatinine 4.08(H) 0.80 - 1.30 mg/dL [facility] Glucose 82 70 - 199 mg/dL [facility] Comment: Interpretive Data Fasting glucose >/= [...] Calcium 9.4 8.5 - 10.3 mg/dL [facility] Phosphorus, pl 5.3(H) 2.3 - 4.5 mg/dL [facility] Albumin 3.6 3.5 - 5.0 g/dL [facility] Blood 02/02/2024 9:00 AM ANNEALER 02/02/2024 7:36 PM ANNEALER Matthew Marti MD LAB BLOOD ORDERABLES Final Result Performing Organization Address [facility]/ZIP Co de Phone Number [facility] [place] [address] * POCT glucose (01/28/2024 5:58 PM ANNEALER) [facility] Glucose, POC 163 70 - 199 mg/dL Blood 01/28/2024 5:58 PM ANNEALER 01/28/2024 5:58 PM ANNEALER Ayush Galvez MD LAB POCT ORDERABLES - DEVIC E Final Result Performing Organization Address [facility]/ZIP Co de Phone Number [facility] Department [place] [address] * POCT glucose (01/28/2024 12:47 PM ANNEALER) Glucose, POC 170 70 - 199 mg/dL Blood 01/28/2024 12:4 7 PM ANNEALER 01/28/2024 12:47 PM ANNEALER Ayush Galvez MD LAB POCT ORDERABLES - DEVIC E Final Result Performing Organization Address [facility] Co de Phone Number [facility] Department [place] [address] * POCT glucose (01/28/2024 8:44 AM ANNEALER) Glucose, POC 113 70 - 199 mg/dL Blood 01/28/2024 8:44 AM ANNEALER 01/28/2024 8:44 AM ANNEALER Ayush Galvez MD LAB POCT ORDERABLES - DEVIC E Final Result Performing Organization Address [facility] de Phone Number [facility] Department [place] [address] * (ABNORMAL) eGFR (01/28/2024 4:15 AM ANNEALER) eGFR 13(L) >=60 mL/min/1. 73 m2 Comment: [...] last reviewed 2020. Blood 01/28/2024 4:15 AM ANNEALER 01/28/2024 4:29 AM ANNEALER Ayush Galvez MD LAB BLOOD ORDERABLES Final Result [facility] Department [place] [address] * (ABNORMAL) Differential, auto (01/28/2024 4:15 AM ANNEALER) Neutrophil abs 7.5(H) 1.5 - 6.5 K/cumm Imm gran abs 0.5(H) 0.0 - 0.1 K/cumm [facility] Lymphocyte abs 0.1(L) 0.8 - 3.3 K/cumm [facility] Monocyte abs 0.5 0.2 - 0.8 K/cumm [facility] Eosinophil abs 0.1 0.0 - 0.5 K/cumm [facility] Basophil abs 0.0 0.0 - 0.1 K/cumm [facility] Neutrophil pct 87.1 % [facility] Comment: Interpretive Data Percent cell count reference ranges are not reported, since discordance with absolute values may lead to misinterpretation of CBC data. Current Interpretive Data was last revised on 2017. Imm gran pct 5.3 % [facility] Comment: Interpretive Data Percent cell count reference ranges are not reported, since discordance with absolute values may lead to misinterpretation of CBC data. Current Interpretive Data was last revised on 2017. Lymphocyte pct 1.4 % [facility] Comment: Interpretive Data Percent cell count reference ranges are not reported, since discordance with absolute values may lead to misinterpretation of CBC data. Current Interpretive Data was last revised on 2017. Monocyte pct 5.4 % [facility] Comment: Interpretive Data Percent cell count reference ranges are not reported, since discordance with absolute values may lead to misinterpretation of CBC data. Current Interpretive Data was last revised on 2017. Eosinophil pct 0.6 % [facility] Comment: Interpretive Data Percent cell count reference ranges are not reported, since discordance with absolute values may lead to misinterpretation of CBC data. Current Interpretive Data was last revised on 2017. Basophil pct 0.2 % [facility] Comment: Interpretive Data Percent cell count reference ranges are not reported, since discordance with absolute values may lead to misinterpretation of CBC data. Current Interpretive Data was last revised on 2017. Blood 01/28/2024 4:15 AM ANNEALER 01/28/2024 4:27 AM ANNEALER Ayush Galvez MD LAB BLOOD ORDERABLES Final Result Performing Organization Address [facility] de Phone Number [facility] Department [place] [address] * Tacrolimus level trough (01/28/2024 4:15 AM ANNEALER) Pathologist [facility] Tacrolimus trough 12.2 ng/mL Comment: Interpretive Data Testing performed by liquid chromatography-tandem mass spectrometry. Therapeutic concentrations vary depending on type of transplanted organ and time elapsed since transplant. Typical trough concentrations range from 5-15 ng/mL. This test was developed and its performance characteristics determined by the [facility] consistent with CLIA requirements. This test has not been cleared or approved by the [place] Food and Drug administration. Current interpretive data last reviewed 2019. Blood 01/28/2024 4:15 AM ANNEALER 01/28/2024 4:27 AM ANNEALER Ayush Galvez MD LAB BLOOD ORDERABLES Final Result Performing Organization Address [facility] de Phone Number [facility] Department [place] [address] * (ABNORMAL) CBC with auto differential (01/28/2024 4:15 AM ANNEALER) Pathologist [facility] WBC 8.6 3.8 - 9.9 K/cumm Hgb 9.5(L) 13.0 - 17.5 g/dL [facility] Hct 29.1(L) 38.9 - 50.3 % [facility] Plt 160 150 - 400 K/cumm [facility] MPV 11.1 9.1 - 12.3 fL [facility] RBC 3.06(L) 4.30 - 5.80 M/cumm [facility] MCV 95.1 81.3 - 96.4 fL [facility] MCH 31.0 27.1 - 33.3 pg [facility] MCHC 32.6 32.3 - 35.7 g/dL [facility] RDW CV 17.0(H) 11.1 - 14.9 % [facility] RDW SD 57.3(H) 35.7 - 48.1 fL [facility] NRBC abs 0.06(H) 0.00 - 0.01 K/cumm [facility] Blood 01/28/2024 4:15 AM ANNEALER 01/28/2024 4:27 AM ANNEALER Ayush Galvez MD LAB BLOOD ORDERABLES Final Result Performing Organization Address [facility] Co de Phone Number [facility] [place] [address] * Magnesium (01/28/2024 4:15 AM ANNEALER) Pathologist [facility] Magnesium 2.1 1.4 - 2.5 mg/dL Blood 01/28/2024 4:15 AM ANNEALER 01/28/2024 4:29 AM ANNEALER Ayush Galvez MD LAB BLOOD ORDERABLES Final Result Performing Organization Address [facility]/ZIP Co de Phone Number [facility] [place] [address] * (ABNORMAL) Renal function panel (01/28/2024 4:15 AM ANNEALER) Sodium 139 135 - 145 mmol/L Potassium, pl 3.7 3.3 - 4.9 mmol/L [facility] Chloride 94(L) 97 - 110 mmol/L [facility] CO2 29 22 - 32 mmol/L [facility] Anion gap 16(H) 2 - 15 mmol/L [facility] BUN 39(H) 6 - 25 mg/dL [facility] Creatinine 4.80(H) 0.80 - 1.30 mg/dL [facility] Glucose 126 70 - 199 mg/dL [facility] Comment: Interpretive Data Fasting glucose >/= [...] Calcium 9.9 8.5 - 10.3 mg/dL [facility] Phosphorus, pl 5.3(H) 2.3 - 4.5 mg/dL [facility] Albumin 3.4(L) 3.5 - 5.0 g/dL [facility] Blood 01/28/2024 4:15 AM ANNEALER 01/28/2024 4:29 AM ANNEALER Ayush Galvez MD LAB BLOOD ORDERABLES Final Result Performing Organization Address [facility] Co de Phone Number [facility] Department [place] [address] * POCT glucose (01/27/2024 9:07 PM ANNEALER) [facility] Glucose, POC 180 70 - 199 mg/dL Blood 01/27/2024 9:07 PM ANNEALER 01/27/2024 9:07 PM ANNEALER Ayush Galvez MD LAB POCT ORDERABLES - DEVIC E Final Result Performing Organization Address [facility] Co de Phone Number [facility] Department [place] [address] * (ABNORMAL) POCT glucose (01/27/2024 5:55 PM ANNEALER) Glucose, POC 241(H) 70 - 199 mg/dL Blood 01/27/2024 5:55 PM ANNEALER 01/27/2024 5:55 PM ANNEALER Ayush Galvez MD LAB POCT ORDERABLES - DEVIC E Final Result Performing Organization Address [facility] de Phone Number [facility] [place] [address] * ECG 12 lead (01/27/2024 3:35 PM ANNEALER) [facility] Ventricular Rate EKG/Min 82 BPM [facility] QRS-Interval (MSEC) 144 ms [facility] QT-Interval (MSEC) 466 ms [facility] QTc 544 ms [facility] R Preston 4 degrees [facility] T Preston 20 degrees [facility] Diagnosis Atrial fibrillation with a premature ventricular beat or aberrantly conducted beat Non-specific intra-ventricul ar conduction block Abnormal ECG When compared with ECG of 25-JAN-2024 13:31, no significant change Confirmed by OLEKSANDR MATUTE M.D ([id number]) on 01/29/2024 10:04:40 AM [facility] 01/27/2024 3:35 PM ANNEALER 01/29/2024 10:04 AM ANNEALER Ayush Galvez MD ECG ORDERABLES Final Resul t Performing Organization Address [facility] de Phone Number [facility] * POCT glucose (01/27/2024 12:24 PM ANNEALER) Glucose, POC 186 70 - 199 mg/dL Blood 01/27/2024 12:2 4 PM ANNEALER 01/27/2024 12:24 PM ANNEALER Ayush Galvez MD LAB POCT ORDERABLES - DEVIC E Final Result Performing Organization Address [facility] Co de Phone Number [facility] Department [place] [address] * (ABNORMAL) eGFR (01/27/2024 4:17 AM ANNEALER) eGFR 12(L) >=60 mL/min/1. 73 m2 Comment: [...] last reviewed 2020. Blood 01/27/2024 4:17 AM ANNEALER 01/27/2024 5:22 AM ANNEALER Ayush Galvez MD LAB BLOOD ORDERABLES Final Result Performing Organization Address City/[facility]/ZIP Co de Phone Number [facility] Department [place] [address] * (ABNORMAL) Differential, auto (01/27/2024 4:17 AM ANNEALER) Pathologist [facility] Neutrophil abs 5.7 1.5 - 6.5 K/cumm Imm gran abs 0.3(H) 0.0 - 0.1 K/cumm [facility] Lymphocyte abs 0.1(L) 0.8 - 3.3 K/cumm [facility] Monocyte abs 0.3 0.2 - 0.8 K/cumm [facility] Eosinophil abs 0.0 0.0 - 0.5 K/cumm [facility] Basophil abs 0.0 0.0 - 0.1 K/cumm [facility] Neutrophil pct 88.4 % [facility] Comment: Interpretive Data Percent cell count reference ranges are not reported, since discordance with absolute values may lead to misinterpretation of CBC data. Current Interpretive Data was last revised on 2017. Imm gran pct 4.2 % [facility] Comment: Interpretive Data Percent cell count reference ranges are not reported, since discordance with absolute values may lead to misinterpretation of CBC data. Current Interpretive Data was last revised on 2017. Lymphocyte pct 1.7 % [facility] Comment: Interpretive Data Percent cell count reference ranges are not reported, since discordance with absolute values may lead to misinterpretation of CBC data. Current Interpretive Data was last revised on 2017. Monocyte pct 5.0 % [facility] Comment: Interpretive Data Percent cell count reference ranges are not reported, since discordance with absolute values may lead to misinterpretation of CBC data. Current Interpretive Data was last revised on 2017. Eosinophil pct 0.5 % [facility] Comment: Interpretive Data Percent cell count reference ranges are not reported, since discordance with absolute values may lead to misinterpretation of CBC data. Current Interpretive Data was last revised on 2017. Basophil pct 0.2 % [facility] Comment: Interpretive Data Percent cell count reference ranges are not reported, since discordance with absolute values may lead to misinterpretation of CBC data. Current Interpretive Data was last revised on 2017. Blood 01/27/2024 4:17 AM ANNEALER 01/27/2024 5:22 AM ANNEALER us Ayush Galvez MD LAB BLOOD ORDERABLES Final Result [facility] Department [place] [address] * Tacrolimus level trough (01/27/2024 4:17 AM ANNEALER) Pathologist [facility] Tacrolimus trough 12.2 ng/mL Comment: Interpretive Data Testing performed by liquid chromatography-tandem mass spectrometry. Therapeutic concentrations vary depending on type of transplanted organ and time elapsed since transplant. Typical trough concentrations range from 5-15 ng/mL. This test was developed and its performance characteristics determined by the [facility] consistent with CLIA requirements. This test has not been cleared or approved by the [place] Food and Drug administration. Current interpretive data last reviewed 2019. Blood 01/27/2024 4:17 AM ANNEALER 01/27/2024 5:22 AM ANNEALER Ayush Galvez MD LAB BLOOD ORDERABLES Final Result [facility] Department [place] [address] * (ABNORMAL) CBC with auto differential (01/27/2024 4:17 AM ANNEALER) [facility] WBC 6.5 3.8 - 9.9 K/cumm Hgb 9.1(L) 13.0 - 17.5 g/dL [facility] Hct 26.8(L) 38.9 - 50.3 % [facility] Plt 144(L) 150 - 400 K/cumm [facility] MPV 11.8 9.1 - 12.3 fL [facility] RBC 2.85(L) 4.30 - 5.80 M/cumm [facility] MCV 94.0 81.3 - 96.4 fL [facility] MCH 31.9 27.1 - 33.3 pg [facility] MCHC 34.0 32.3 - 35.7 g/dL [facility] RDW CV 16.9(H) 11.1 - 14.9 % [facility] RDW SD 55.8(H) 35.7 - 48.1 fL [facility] NRBC abs 0.03(H) 0.00 - 0.01 K/cumm [facility] Blood 01/27/2024 4:17 AM ANNEALER 01/27/2024 5:22 AM ANNEALER Ayush Galvez MD LAB BLOOD ORDERABLES Final Result Performing Organization Address [facility] Co de Phone Number [facility] [place] [address] * Magnesium (01/27/2024 4:17 AM ANNEALER) [facility] Magnesium 2.4 1.4 - 2.5 mg/dL Blood 01/27/2024 4:17 AM ANNEALER 01/27/2024 5:22 AM ANNEALER Ayush Galvez MD LAB BLOOD ORDERABLES Final Result Performing Organization Address [facility] de Phone Number [facility] [place] [address] * (ABNORMAL) Renal function panel (01/27/2024 4:17 AM ANNEALER) [facility] Sodium 136 135 - 145 mmol/L Potassium, pl 3.9 3.3 - 4.9 mmol/L [facility] Comment:Hemolyzed; Potassium value may be falsely elevated by as much as 0.6-1.0 mmol/L. Suggest redraw and reanalysis. Chloride 93(L) 97 - 110 mmol/L [facility] CO2 29 22 - 32 mmol/L [facility] Anion gap 14 2 - 15 mmol/L [facility] BUN 47(H) 6 - 25 mg/dL [facility] Creatinine 5.15(H) 0.80 - 1.30 mg/dL [facility] Glucose 136 70 - 199 mg/dL [facility] Comment: Interpretive Data Fasting glucose >/= [...] Calcium 9.8 8.5 - 10.3 mg/dL [facility] Phosphorus, pl 5.8(H) 2.3 - 4.5 mg/dL [facility] Comment:Reviewed Albumin 3.2(L) 3.5 - 5.0 g/dL [facility] Blood 01/27/2024 4:17 AM ANNEALER 01/27/2024 5:22 AM ANNEALER Ayush Galvez MD LAB BLOOD ORDERABLES Final Result Performing Organization Address [facility] Co de Phone Number [facility] [place] [address] * POCT glucose (01/26/2024 7:59 PM ANNEALER) Glucose, POC 152 70 - 199 mg/dL Blood 01/26/2024 7:59 PM ANNEALER 01/26/2024 7:59 PM ANNEALER Ayush Galvez MD LAB POCT ORDERABLES - DEVIC E Final Result Performing Organization Address [facility] Co de Phone Number [facility] [place] [address] * POCT glucose (01/26/2024 5:15 PM ANNEALER) Glucose, POC 189 70 - 199 mg/dL Blood 01/26/2024 5:15 PM ANNEALER 01/26/2024 5:15 PM ANNEALER Ayush Galvez MD LAB POCT ORDERABLES - DEVIC E Final Result Performing Organization Address [facility] Co de Phone Number [facility] [place] [address] * POCT glucose (01/26/2024 1:48 PM ANNEALER) Glucose, POC 149 70 - 199 mg/dL Blood 01/26/2024 1:48 PM ANNEALER 01/26/2024 1:48 PM ANNEALER us Ayush Galvez MD LAB POCT ORDERABLES - DEVIC E Final Result Performing Organization Address [facility] de Phone Number [facility] [place] [address] * POCT glucose (01/26/2024 12:06 PM ANNEALER) Glucose, POC 180 70 - 199 mg/dL Blood 01/26/2024 12:0 6 PM ANNEALER 01/26/2024 12:06 PM ANNEALER us Ayush Galvez MD LAB POCT ORDERABLES - DEVIC E Final Result Performing Organization Address [facility] de Phone Number [facility] [place] [address] * Transfuse RBC (01/26/2024 9:55 AM ANNEALER) Blood Ayush Galvez MD BLOOD TRANSFUSION ORDERABLE S Edited Result - Final Performing Organization Address [facility] de Phone Number [facility] [place] [address] * POCT glucose (01/26/2024 8:25 AM ANNEALER) Glucose, POC 175 70 - 199 mg/dL Blood 01/26/2024 8:25 AM ANNEALER 01/26/2024 8:25 AM ANNEALER Ayush Galvez MD LAB POCT ORDERABLES - DEVIC E Final Result Performing Organization Address [facility] de Phone Number [facility] [place] [address] * Type and screen (01/26/2024 6:19 AM ANNEALER) [facility] [place], indirect Negative ABO Rh O Negative [facility] Blood 01/26/2024 6:19 AM ANNEALER 01/26/2024 6:30 AM ANNEALER Narrative [facility] - 01/26/2024 7:36 AM ANNEALER Has the patient had Daratumumab or Isatuximab in the past 6 months?->Unknown us Ayush Galvez MD LAB BLOOD BANK TEST ORDERAB LES Final Result Performing Organization Address [facility] [place] [address] * Prepare RBC: 1 Units (01/26/2024 5:41 AM ANNEALER) [facility] Product code [id number] Unit Number [id number] * [facility] Product Blood Type ONEG [facility] Dispense Status PRESUMED TRANSFUSED [facility] Blood 01/26/2024 5:41 AM ANNEALER 01/26/2024 5:41 AM ANNEALER Narrative [facility] - 01/26/2024 4:02 PM ANNEALER Are special requirements needed? (All products are leukoreduced and CMV- safe)- >No Date required:-[id number] LRRBC # of [id number] Reasons:-Cardiovascular disease, Hgb <8 g/dL} Ayush Galvez MD BLOOD BANK PRODUCT ORDERABL ES Final Result Performing Organization Address [facility] [place] [address] * (ABNORMAL) eGFR (01/26/2024 4:39 AM ANNEALER) eGFR 9(L) >=60 mL/min/1. 73 m2 Comment: [...] last reviewed 2020. Blood 01/26/2024 4:39 AM ANNEALER 01/26/2024 5:17 AM ANNEALER us Ayush Galvez MD LAB BLOOD ORDERABLES Final Result [facility] Department [place] [address] * (ABNORMAL) Differential, auto (01/26/2024 4:39 AM ANNEALER) Pathologist [facility] Neutrophil abs 4.2 1.5 - 6.5 K/cumm Imm gran abs 0.1 0.0 - 0.1 K/cumm [facility] Lymphocyte abs 0.1(L) 0.8 - 3.3 K/cumm [facility] Monocyte abs 0.2 0.2 - 0.8 K/cumm [facility] Eosinophil abs 0.0 0.0 - 0.5 K/cumm [facility] Basophil abs 0.0 0.0 - 0.1 K/cumm [facility] Neutrophil pct 91.1 % [facility] Comment: Interpretive Data Percent cell count reference ranges are not reported, since discordance with absolute values may lead to misinterpretation of CBC data. Current Interpretive Data was last revised on 2017. Imm gran pct 2.0 % [facility] Comment: Interpretive Data Percent cell count reference ranges are not reported, since discordance with absolute values may lead to misinterpretation of CBC data. Current Interpretive Data was last revised on 2017. Lymphocyte pct 1.7 % [facility] Comment: Interpretive Data Percent cell count reference ranges are not reported, since discordance with absolute values may lead to misinterpretation of CBC data. Current Interpretive Data was last revised on 2017. Monocyte pct 5.2 % [facility] Comment: Interpretive Data Percent cell count reference ranges are not reported, since discordance with absolute values may lead to misinterpretation of CBC data. Current Interpretive Data was last revised on 2017. Eosinophil pct 0.0 % [facility] Comment: Interpretive Data Percent cell count reference ranges are not reported, since discordance with absolute values may lead to misinterpretation of CBC data. Current Interpretive Data was last revised on 2017. Basophil pct 0.0 % [facility] Comment: Interpretive Data Percent cell count reference ranges are not reported, since discordance with absolute values may lead to misinterpretation of CBC data. Current Interpretive Data was last revised on 2017. Blood 01/26/2024 4:39 AM ANNEALER 01/26/2024 5:17 AM ANNEALER Ayush Galvez MD LAB BLOOD ORDERABLES Final Result [facility] Department [place] [address] * Tacrolimus level trough (01/26/2024 4:39 AM ANNEALER) Tacrolimus trough 8.9 ng/mL Comment: Interpretive Data Testing performed by liquid chromatography-tandem mass spectrometry. Therapeutic concentrations vary depending on type of transplanted organ and time elapsed since transplant. Typical trough concentrations range from 5-15 ng/mL. This test was developed and its performance characteristics determined by the [facility] consistent with CLIA requirements. This test has not been cleared or approved by the US Food and Drug administration. Current interpretive data last reviewed 2019. Blood 01/26/2024 4:39 AM ANNEALER 01/26/2024 5:17 AM ANNEALER Ayush Galvez MD LAB BLOOD ORDERABLES Final Result Performing Organization Address City/[facility] Co de Phone Number [facility] [place] [address] * (ABNORMAL) CBC with auto differential (01/26/2024 4:39 AM ANNEALER) Pathologist [facility] WBC 4.6 3.8 - 9.9 K/cumm Hgb 7.9(L) 13.0 - 17.5 g/dL [facility] Hct 23.5(L) 38.9 - 50.3 % [facility] Plt 111(L) 150 - 400 K/cumm [facility] MPV 11.9 9.1 - 12.3 fL [facility] RBC 2.49(L) 4.30 - 5.80 M/cumm [facility] MCV 94.4 81.3 - 96.4 fL [facility] MCH 31.7 27.1 - 33.3 pg [facility] MCHC 33.6 32.3 - 35.7 g/dL [facility] RDW CV 17.2(H) 11.1 - 14.9 % [facility] RDW SD 58.9(H) 35.7 - 48.1 fL [facility] NRBC abs 0.00 0.00 - 0.01 K/cumm [facility] Blood 01/26/2024 4:39 AM ANNEALER 01/26/2024 5:17 AM ANNEALER Ayush Galvez MD LAB BLOOD ORDERABLES Final Result Performing Organization Address City/[facility] Co de Phone Number [facility] [place] [address] * Magnesium (01/26/2024 4:39 AM ANNEALER) Magnesium 2.5 1.4 - 2.5 mg/dL Blood 01/26/2024 4:39 AM ANNEALER 01/26/2024 5:17 AM ANNEALER us Ayush Galvez MD LAB BLOOD ORDERABLES Final Result [facility] Department [place] [address] * (ABNORMAL) Renal function panel (01/26/2024 4:39 AM ANNEALER) Pathologist [facility] Sodium 132(L) 135 - 145 mmol/L Potassium, pl 4.5 3.3 - 4.9 mmol/L [facility] Comment:Hemolyzed; Potassium value may be falsely elevated by as much as 0.3-0.5 mmol/L. Suggest redraw and reanalysis. Chloride 90(L) 97 - 110 mmol/L [facility] CO2 28 22 - 32 mmol/L [facility] Anion gap 14 2 - 15 mmol/L [facility] BUN 69(H) 6 - 25 mg/dL [facility] Creatinine 6.70(H) 0.80 - 1.30 mg/dL [facility] Glucose 172 70 - 199 mg/dL [facility] Comment: Interpretive Data Fasting glucose >/= [...] Calcium 9.6 8.5 - 10.3 mg/dL [facility] Phosphorus, pl 8.0(H) 2.3 - 4.5 mg/dL [facility] Albumin 3.0(L) 3.5 - 5.0 g/dL [facility] Blood 01/26/2024 4:39 AM ANNEALER 01/26/2024 5:17 AM ANNEALER Ayush Galvez MD LAB BLOOD ORDERABLES Final Result Performing Organization Address [facility] Co de Phone Number [facility] [place] [address] * POCT glucose (01/25/2024 9:33 PM ANNEALER) Glucose, POC 195 70 - 199 mg/dL Blood 01/25/2024 9:33 PM ANNEALER 01/25/2024 9:33 PM ANNEALER Result [facility] Ayush Galvez MD LAB POCT ORDERABLES - DEVIC E Final Result Performing Organization Address [facility] de Phone Number [facility] [place] [address] * (ABNORMAL) Troponin I high-sensitivity 6-hour (01/25/2024 7:51 PM ANNEALER) Pathologist [facility] Trop I hs 347(C) <=35 ng/L Comment: Previous critical value noted within 48 hours ago. Interpretive Data For further [facility] resources including the diagnostic algorithm and an aid in interpretation, copy and paste this link: [email or web address].[email or web address]/show/[email or web address]-[email or web address] Current Interpretive Data last revised 2019. Trop I hs pct delta -11 % [facility] Comment:Previous critical va lue noted within 48 hours ago. Trop I hs interp Equivocal [facility] Comment:Previous critical va lue noted within 48 hours ago. Blood 01/25/2024 7:51 PM ANNEALER 01/25/2024 8:11 PM ANNEALER Result [facility] Vannessa Hein NP LAB BLOOD ORDERABLES Fin al Result Performing Organization Address [facility] Co de Phone Number [facility] [place] [address] * (ABNORMAL) Troponin I high-sensitivity 4-hour (01/25/2024 6:00 PM ANNEALER) Pathologist [facility] Trop I hs 388(C) <=35 ng/L Comment: Previous critical value noted within 48 hours ago. Interpretive Data For further hscTnI resources including the diagnostic algorithm and an aid in interpretation, copy and paste this link: [email or web address]/show/[email or web address] Current Interpretive Data last revised 2019. Trop I hs pct delta -1 % [facility] Trop I hs interp Insignificant [facility] Blood 01/25/2024 6:00 PM ANNEALER 01/25/2024 6:21 PM ANNEALER us Vannessa Hein NP LAB BLOOD ORDERABLES Fin al Result Performing Organization Address City/[facility]/ZIP Co de Phone Number [facility] Department [place] [address] * (ABNORMAL) POCT glucose (01/25/2024 5:49 PM ANNEALER) [facility] Glucose, POC 212(H) 70 - 199 mg/dL Blood 01/25/2024 5:49 PM ANNEALER 01/25/2024 5:49 PM ANNEALER Ayush Galvez MD LAB POCT ORDERABLES - DEVIC E Final Result [facility] [place] [address] * (ABNORMAL) Troponin I high-sensitivity 2-hour (01/25/2024 3:44 PM ANNEALER) [facility] Trop I hs 384(C) <=35 ng/L Comment: Previous critical value noted within 48 hours ago. Interpretive Data For further hscTnI resources including the diagnostic algorithm and an aid in interpretation, copy and paste this link: [email or web address]/show/[email or web address] Current Interpretive Data last revised 2019. Trop I hs pct delta -2 % [facility] Trop I hs interp Insignificant [facility] Blood 01/25/2024 3:44 PM ANNEALER 01/25/2024 4:16 PM ANNEALER Vannessa Hein NP LAB BLOOD ORDERABLES Fin al Result [facility] Department [place] [address] * XR Chest 1 View (01/25/2024 2:52 PM ANNEALER) Anatomical Region Laterality Modality Body, Chest N/A Computed Radiogr aphy 01/25/2024 3:56 PM ANNEALER Impressions 01/25/2024 4:00 PM ANNEALER The current study is compared with the [...] Erinn Morataya M.D. Narrative 01/25/2024 4:00 PM ANNEALER EXAMINATION: 1 view chest radiograph Procedure Note [...] signed by: Erinn Morataya M.D. Vannessa Hein CONDOMINIUM MANAGER IMG XR PROCEDURES Final Result * (ABNORMAL) CBC without differential (01/25/2024 2:42 PM ANNEALER) [facility] WBC 6.9 3.8 - 9.9 K/cumm Hgb 8.1(L) 13.0 - 17.5 g/dL [facility] Hct 24.5(L) 38.9 - 50.3 % [facility] Plt 94(L) 150 - 400 K/cumm [facility] MPV 11.4 9.1 - 12.3 fL [facility] RBC 2.56(L) 4.30 - 5.80 M/cumm [facility] MCV 95.7 81.3 - 96.4 fL [facility] MCH 31.6 27.1 - 33.3 pg [facility] MCHC 33.1 32.3 - 35.7 g/dL [facility] RDW CV 17.2(H) 11.1 - 14.9 % [facility] RDW SD 59.7(H) 35.7 - 48.1 fL [facility] NRBC abs 0.03(H) 0.00 - 0.01 K/cumm [facility] Blood 01/25/2024 2:42 PM ANNEALER 01/25/2024 2:56 PM ANNEALER us Susi LEE LAB BLOOD ORDERABLES Final Result [facility] Department [place] [address] * (ABNORMAL) Troponin I high-sensitivity (01/25/2024 2:05 PM ANNEALER) [facility] Trop I hs 383(C) <=35 ng/L Comment: Previous critical value noted within 48 hours ago. Interpretive Data For further hscTnI resources including the diagnostic algorithm and an aid in interpretation, copy and paste this link: [email or web address] Dog [email or web address].Piku [employer] [email or web address].K.catChai [email or web address]/show/[email or web address] Current Interpretive Data last revised 2019. Blood 01/25/2024 2:05 PM ANNEALER 01/25/2024 2:23 PM ANNEALER Susi Nuñez PA LAB BLOOD ORDERABLES Final Result Performing Organization Address [facility] Co de Phone Number [facility] Department [place] [address] * (ABNORMAL) Troponin I high-sensitivity series (baseline, 2hr, 4hr, 6hr) (01/25/2024 1:46 PM ANNEALER) Trop I hs 391(C) <=35 ng/L Comment: Interpretive Data For further hscTnI resources including the diagnostic algorithm and an aid in interpretation, copy and paste this link: [email or web address]/show/[email or web address] Current Interpretive Data last revised 2019. Blood 01/25/2024 1:46 PM ANNEALER 01/25/2024 1:59 PM ANNEALER Vannessa Hein CONDOMINIUM MANAGER LAB BLOOD ORDERABLES Fin al Result Performing Organization Address [facility] Co de Phone Number [facility] [place] [address] * Critical result callback Cardio chemistry (01/25/2024 1:46 PM ANNEALER) Date Notified [id number] Time Notified [address] [facility] Test name Trop I hs base [facility] Called/Read Back Nadiya [facility] Credentials SAURAV BALLARD Called By afshin [facility] Blood 01/25/2024 1:46 PM ANNEALER 01/25/2024 2:11 PM ANNEALER Vannessa Hein CONDOMINIUM MANAGER LAB BLOOD ORDERABLES Fin al Result Performing Organization Address [facility]/ZIP Co de Phone Number [facility] Department [place] [address] * ECG 12 lead (01/25/2024 1:31 PM ANNEALER) [facility] Ventricular Rate EKG/Min 82 BPM [facility] Atrial Rate 83 BPM [facility] QRS-Interval (MSEC) 144 ms [facility] QT-Interval (MSEC) 462 ms [facility] QTc 539 ms [facility] R Preston 7 degrees [facility] T Preston 3 degrees [facility] Diagnosis Atrial fibrillation/fl utter with variable A-V block Non-specific intra-ventricul ar conduction block Cannot rule out Inferior infarct , age undetermined Abnormal ECG When compared with ECG of 23-JAN-2024 01:02, (unconfirmed) T wave inversion no longer evident in Lateral leads QT has lengthened Confirmed by JENNIFER BYRD M.D ([id number]) on 01/26/2024 12:43:53 PM [facility] 01/25/2024 1:31 PM ANNEALER 01/26/2024 12:43 PM ANNEALER Vannessa Hein CONDOMINIUM MANAGER ECG ORDERABLES Final Re sult Performing Organization Address [facility] Co de Phone Number [facility] * Creatinine, body fluid (01/25/2024 1:15 PM ANNEALER) Specimen type, fld Peritoneal Creatinine, fld 5.90 mg/dL [facility] Comment: The above specimen type is [...] 2018. Chapter 43, Body Fluids, p. 925 [facility] Test directory, Body Fluid Reference Intervals and/or Interpretative Information. [email or web address].[email or web address] Current Interpretive Data was last revised 2018. Fluid 01/25/2024 1:15 PM ANNEALER 01/25/2024 2:12 PM ANNEALER Narrative [facility] 01/[facility] 2:45 PM ANNEALER CONSTANZA drain Rosalie Velásquez CONDOMINIUM MANAGER LAB BODY FLUIDS AND STOOLS ORDERABLES Final Result Performing Organization Address [facility] Co de Phone Number [facility] [place] [address] * POCT glucose (01/25/2024 12:46 PM ANNEALER) Glucose, POC 169 70 - 199 mg/dL Blood 01/25/2024 12:4 6 PM ANNEALER 01/25/2024 12:46 PM ANNEALER Ayush Galvez MD LAB POCT ORDERABLES - DEVIC E Final Result Performing Organization Address [facility] de Phone Number [facility] [place] [address] * POCT glucose (01/25/2024 11:13 AM ANNEALER) Glucose, POC 143 70 - 199 mg/dL Blood 01/25/2024 11:1 3 AM ANNEALER 01/25/2024 11:13 AM ANNEALER Ayush Galvez MD LAB POCT ORDERABLES - DEVIC E Final Result Performing Organization Address [facility] de Phone Number [facility] [place] [address] * IR Central Line Placement > 5 Years (01/25/2024 10:26 AM ANNEALER) Anatomical Region Laterality Modality Body N/A X-Ray Angiograph y 01/25/2024 11:2 6 AM ANNEALER Impressions 01/25/2024 2:04 PM ANNEALER Successful nontunneled catheter placement. PLAN: The catheter [...] Miguel Swan M.D. Narrative 01/25/2024 2:04 PM ANNEALER EXAMINATION: NONTUNNELED CENTRAL VENOUS CATHETER PLACEMENT (STD) [...] was obtained. Prior to beginning the procedure, Pingree Protocol was used to confirm the patient's [...] was obtained. Prior to beginning the procedure, Pingree Protocol was used to confirm the patient's [...] by: Juan Miguel Swan M.D. Vannessa Hein CONDOMINIUM MANAGER IMG IR PROCEDURES Final Result * POCT glucose (01/25/2024 7:40 AM ANNEALER) Glucose, POC 147 70 - 199 mg/dL Blood 01/25/2024 7:40 AM ANNEALER 01/25/2024 7:40 AM ANNEALER Ayush Galvez MD LAB POCT ORDERABLES - DEVIC E Final Result Performing Organization Address City/[facility] Co de Phone Number [facility] Department [place] [address] * (ABNORMAL) eGFR (01/25/2024 5:07 AM ANNEALER) Pathologist [facility] eGFR 10(L) >=60 mL/min/1. 73 m2 [...] last reviewed 2020. Blood 01/25/2024 5:07 AM ANNEALER 01/25/2024 5:25 AM ANNEALER Ayush Galvez MD LAB BLOOD ORDERABLES Final Result Performing Organization Address City/[facility]/ZIP Co de Phone Number [facility] [place] [address] * (ABNORMAL) Differential, auto (01/25/2024 5:07 AM ANNEALER) Neutrophil abs 3.3 1.5 - 6.5 K/cumm Imm gran abs 0.1 0.0 - 0.1 K/cumm [facility] Lymphocyte abs 0.1(L) 0.8 - 3.3 K/cumm [facility] Monocyte abs 0.2 0.2 - 0.8 K/cumm [facility] Eosinophil abs 0.0 0.0 - 0.5 K/cumm [facility] Basophil abs 0.0 0.0 - 0.1 K/cumm [facility] Neutrophil pct 90.8 % [facility] Comment: Interpretive Data Percent cell count reference ranges are not reported, since discordance with absolute values may lead to misinterpretation of CBC data. Current Interpretive Data was last revised on 2017. Imm gran pct 2.5 % [facility] Comment: Interpretive Data Percent cell count reference ranges are not reported, since discordance with absolute values may lead to misinterpretation of CBC data. Current Interpretive Data was last revised on 2017. Lymphocyte pct 1.7 % [facility] Comment: Interpretive Data Percent cell count reference ranges are not reported, since discordance with absolute values may lead to misinterpretation of CBC data. Current Interpretive Data was last revised on 2017. Monocyte pct 4.7 % [facility] Comment: Interpretive Data Percent cell count reference ranges are not reported, since discordance with absolute values may lead to misinterpretation of CBC data. Current Interpretive Data was last revised on 2017. Eosinophil pct 0.3 % [facility] Comment: Interpretive Data Percent cell count reference ranges are not reported, since discordance with absolute values may lead to misinterpretation of CBC data. Current Interpretive Data was last revised on 2017. Basophil pct 0.0 % [facility] Comment: Interpretive Data Percent cell count reference ranges are not reported, since discordance with absolute values may lead to misinterpretation of CBC data. Current Interpretive Data was last revised on 2017. Blood 01/25/2024 5:07 AM ANNEALER 01/25/2024 5:58 AM ANNEALER Ayush Galvez MD LAB BLOOD ORDERABLES Final Result Performing Organization Address [facility] de Phone Number [facility] [place] [address] * Tacrolimus level trough (01/25/2024 5:07 AM ANNEALER) [facility] Tacrolimus trough 7.3 ng/mL Comment: Interpretive Data Testing performed by liquid chromatography-tandem mass spectrometry. Therapeutic concentrations vary depending on type of transplanted organ and time elapsed since transplant. Typical trough concentrations range from 5-15 ng/mL. This test was developed and its performance characteristics determined by the [facility] consistent with CLIA requirements. This test has not been cleared or approved by the [place] Food and Drug administration. Current interpretive data last reviewed 2019. Blood 01/25/2024 5:07 AM ANNEALER 01/25/2024 5:58 AM ANNEALER Ayush Galvez MD LAB BLOOD ORDERABLES Final Result Performing Organization Address [facility] de Phone Number [facility] Department [place] [address] * (ABNORMAL) CBC with auto differential (01/25/2024 5:07 AM ANNEALER) [facility] WBC 3.6(L) 3.8 - 9.9 K/cumm Hgb 8.1(L) 13.0 - 17.5 g/dL [facility] Hct 24.1(L) 38.9 - 50.3 % [facility] Plt 92(L) 150 - 400 K/cumm [facility] MPV 11.0 9.1 - 12.3 fL [facility] RBC 2.55(L) 4.30 - 5.80 M/cumm [facility] MCV 94.5 81.3 - 96.4 fL [facility] MCH 31.8 27.1 - 33.3 pg [facility] MCHC 33.6 32.3 - 35.7 g/dL [facility] RDW CV 17.2(H) 11.1 - 14.9 % [facility] RDW SD 59.2(H) 35.7 - 48.1 fL [facility] NRBC abs 0.03(H) 0.00 - 0.01 K/cumm [facility] Blood 01/25/2024 5:07 AM ANNEALER 01/25/2024 5:58 AM ANNEALER Ayush Galvez MD LAB BLOOD ORDERABLES Final Result Performing Organization Address City/[facility] Co de Phone Number [facility] [place] [address] * Magnesium (01/25/2024 5:07 AM ANNEALER) [facility] Magnesium 2.3 1.4 - 2.5 mg/dL Blood 01/25/2024 5:07 AM ANNEALER 01/25/2024 5:25 AM ANNEALER Ayush Galvez MD LAB BLOOD ORDERABLES Final Result Performing Organization Address [facility] de Phone Number [facility] [place] [address] * (ABNORMAL) Renal function panel (01/25/2024 5:07 AM ANNEALER) [facility] Sodium 134(L) 135 - 145 mmol/L Potassium, pl 4.0 3.3 - 4.9 mmol/L [facility] Chloride 91(L) 97 - 110 mmol/L [facility] CO2 30 22 - 32 mmol/L [facility] Anion gap 13 2 - 15 mmol/L [facility] BUN 51(H) 6 - 25 mg/dL [facility] Creatinine 5.63(H) 0.80 - 1.30 mg/dL [facility] Glucose 152 70 - 199 mg/dL [facility] Comment: Interpretive Data Fasting glucose >/= [...] Calcium 9.4 8.5 - 10.3 mg/dL [facility] Phosphorus, pl 7.5(H) 2.3 - 4.5 mg/dL [facility] Albumin 3.2(L) 3.5 - 5.0 g/dL [facility] Blood 01/25/2024 5:07 AM ANNEALER 01/25/2024 5:25 AM ANNEALER Ayush Galvez MD LAB BLOOD ORDERABLES Final Result Performing Organization Address [facility] Phone Number [facility] Department of [place] [address] * POCT glucose (01/24/2024 8:58 PM ANNEALER) Glucose, POC 195 70 - 199 mg/dL Blood 01/24/2024 8:58 PM ANNEALER 01/24/2024 8:58 PM ANNEALER Ayush Galvez MD LAB POCT ORDERABLES - DEVIC E Final Result Performing Organization Address [facility] Phone Number [facility] Department [place] [address] * POCT glucose (01/24/2024 4:57 PM ANNEALER) Glucose, POC 189 70 - 199 mg/dL Blood 01/24/2024 4:57 PM ANNEALER 01/24/2024 4:57 PM ANNEALER Ayush Galvez MD LAB POCT ORDERABLES - DEVIC E Final Result Performing Organization Address [facility] de Phone Number [facility] [place] [address] * (ABNORMAL) POCT glucose (01/24/2024 11:41 AM ANNEALER) Glucose, POC 219(H) 70 - 199 mg/dL Blood 01/24/2024 11:4 1 AM ANNEALER 01/24/2024 11:41 AM ANNEALER Ayush Galvez MD LAB POCT ORDERABLES - DEVIC E Final Result Performing Organization Address [facility] [place] [address] * POCT glucose (01/24/2024 7:32 AM ANNEALER) [facility] Glucose, POC 187 70 - 199 mg/dL Blood 01/24/2024 7:32 AM ANNEALER 01/24/2024 7:32 AM ANNEALER Ayush Galvze MD LAB POCT ORDERABLES - DEVIC E Final Result Performing Organization Address [facility] Co de Phone Number [facility] [place] [address] * (ABNORMAL) eGFR (01/24/2024 5:06 AM ANNEALER) [facility] eGFR 15(L) >=60 mL/min/1. 73 m2 Comment: [...] Inclusion of Race in Diagnosing Kidney Disease, KYARA 2020). The CKD-EPI equation should not be used for patients with unstable renal function and has not been validated in children and those over 70. Current interpretive data was last reviewed 2020. Blood 01/24/2024 5:06 AM ANNEALER 01/24/2024 5:24 AM ANNEALER us Ayush Galvez MD LAB BLOOD ORDERABLES Final Result [facility] Department [place] [address] * (ABNORMAL) Differential, auto (01/24/2024 5:06 AM ANNEALER) Neutrophil abs 5.8 1.5 - 6.5 K/cumm Imm gran abs 0.0 0.0 - 0.1 K/cumm [facility] Lymphocyte abs 0.1(L) 0.8 - 3.3 K/cumm [facility] Monocyte abs 0.3 0.2 - 0.8 K/cumm [facility] Eosinophil abs 0.0 0.0 - 0.5 K/cumm [facility] Basophil abs 0.0 0.0 - 0.1 K/cumm [facility] Neutrophil pct 93.5 % [facility] Comment: Interpretive Data Percent cell count reference ranges are not reported, since discordance with absolute values may lead to misinterpretation of CBC data. Current Interpretive Data was last revised on 2017. Imm gran pct 0.6 % [facility] Comment: Interpretive Data Percent cell count reference ranges are not reported, since discordance with absolute values may lead to misinterpretation of CBC data. Current Interpretive Data was last revised on 2017. Lymphocyte pct 1.0 % [facility] Comment: Interpretive Data Percent cell count reference ranges are not reported, since discordance with absolute values may lead to misinterpretation of CBC data. Current Interpretive Data was last revised on 2017. Monocyte pct 4.7 % [facility] Comment: Interpretive Data Percent cell count reference ranges are not reported, since discordance with absolute values may lead to misinterpretation of CBC data. Current Interpretive Data was last revised on 2017. Eosinophil pct 0.2 % [facility] Comment: Interpretive Data Percent cell count reference ranges are not reported, since discordance with absolute values may lead to misinterpretation of CBC data. Current Interpretive Data was last revised on 2017. Basophil pct 0.0 % [facility] Comment: Interpretive Data Percent cell count reference ranges are not reported, since discordance with absolute values may lead to misinterpretation of CBC data. Current Interpretive Data was last revised on 2017. Blood 01/24/2024 5:06 AM ANNEALER 01/24/2024 6:39 AM ANNEALER Ayush Galvez MD LAB BLOOD ORDERABLES Final Result Performing Organization Address [facility] de Phone Number [facility] [place] [address] * Tacrolimus level trough (01/24/2024 5:06 AM ANNEALER) [facility] Tacrolimus trough 9.4 ng/mL Comment: Interpretive Data Testing performed by liquid chromatography-tandem mass spectrometry. Therapeutic concentrations vary depending on type of transplanted organ and time elapsed since transplant. Typical trough concentrations range from 5-15 ng/mL. This test was developed and its performance characteristics determined by the [facility] consistent with CLIA requirements. This test has not been cleared or approved by the US Food and Drug administration. Current interpretive data last reviewed 2019. Blood 01/24/2024 5:06 AM ANNEALER 01/24/2024 6:39 AM ANNEALER Ayush Galvez MD LAB BLOOD ORDERABLES Final Result Performing Organization Address [facility] de Phone Number [facility] [place] [address] * (ABNORMAL) CBC with auto differential (01/24/2024 5:06 AM ANNEALER) [facility] WBC 6.2 3.8 - 9.9 K/cumm Hgb 8.2(L) 13.0 - 17.5 g/dL [facility] Hct 24.4(L) 38.9 - 50.3 % [facility] Plt 103(L) 150 - 400 K/cumm [facility] MPV 11.4 9.1 - 12.3 fL [facility] RBC 2.57(L) 4.30 - 5.80 M/cumm [facility] MCV 94.9 81.3 - 96.4 fL [facility] MCH 31.9 27.1 - 33.3 pg [facility] MCHC 33.6 32.3 - 35.7 g/dL [facility] RDW CV 17.7(H) 11.1 - 14.9 % [facility] RDW SD 62.0(H) 35.7 - 48.1 fL [facility] NRBC abs 0.02(H) 0.00 - 0.01 K/cumm [facility] Blood 01/24/2024 5:06 AM ANNEALER 01/24/2024 6:39 AM ANNEALER Ayush Galvez MD LAB BLOOD ORDERABLES Final Result Performing Organization Address City/[facility] Co de Phone Number [facility] [place] [address] * Magnesium (01/24/2024 5:06 AM ANNEALER) [facility] Magnesium 2.2 1.4 - 2.5 mg/dL Blood 01/24/2024 5:06 AM ANNEALER 01/24/2024 5:24 AM ANNEALER Ayush Galvez MD LAB BLOOD ORDERABLES Final Result Performing Organization Address [facility] Co de Phone Number [facility] Department [place] [address] * (ABNORMAL) Renal function panel (01/24/2024 5:06 AM ANNEALER) Sodium 137 135 - 145 mmol/L Potassium, pl 3.9 3.3 - 4.9 mmol/L [facility] Chloride 92(L) 97 - 110 mmol/L [facility] CO2 28 22 - 32 mmol/L [facility] Anion gap 17(H) 2 - 15 mmol/L [facility] BUN 36(H) 6 - 25 mg/dL [facility] Creatinine 4.25(H) 0.80 - 1.30 mg/dL [facility] Glucose 206(H) 70 - 199 mg/dL [facility] Comment: Interpretive Data Fasting glucose >/= [...] Calcium 9.1 8.5 - 10.3 mg/dL [facility] Phosphorus, pl 5.6(H) 2.3 - 4.5 mg/dL [facility] Comment:Repeated on Dilution Albumin 3.2(L) 3.5 - 5.0 g/dL [facility] Blood 01/24/2024 5:06 AM ANNEALER 01/24/2024 5:24 AM ANNEALER us Ayush Galvez MD LAB BLOOD ORDERABLES Final Result [facility] Department [place] [address] * (ABNORMAL) POCT glucose (01/23/2024 9:19 PM ANNEALER) Glucose, POC 215(H) 70 - 199 mg/dL Blood 01/23/2024 9:19 PM ANNEALER 01/23/2024 9:19 PM ANNEALER us Ayush Galvez MD LAB POCT ORDERABLES - DEVIC E Final Result Performing Organization Address [facility] de Phone Number [facility] [place] [address] * (ABNORMAL) POCT glucose (01/23/2024 5:44 PM ANNEALER) Glucose, POC 232(H) 70 - 199 mg/dL Blood 01/23/2024 5:44 PM ANNEALER 01/23/2024 5:44 PM ANNEALER us Ayush Galvez MD LAB POCT ORDERABLES - DEVIC E Final Result Performing Organization Address [facility] de Phone Number [facility] [place] [address] * (ABNORMAL) POCT glucose (01/23/2024 12:11 PM ANNEALER) Glucose, POC 217(H) 70 - 199 mg/dL Blood 01/23/2024 12:1 1 PM ANNEALER 01/23/2024 12:11 PM ANNEALER us Ayush Galvez MD LAB POCT ORDERABLES - DEVIC E Final Result Performing Organization Address [facility] de Phone Number [facility] [place] [address] * (ABNORMAL) POCT glucose (01/23/2024 8:18 AM ANNEALER) Glucose, POC 202(H) 70 - 199 mg/dL Blood 01/23/2024 8:18 AM ANNEALER 01/23/2024 8:18 AM ANNEALER us Ayush Galvez MD LAB POCT ORDERABLES - DEVIC E Final Result Performing Organization Address [facility] de Phone Number [facility] Department [place] [address] * (ABNORMAL) Troponin I high-sensitivity (01/23/2024 6:12 AM ANNEALER) Trop I hs 1,204(C) <=35 ng/L Comment: Previous critical value noted within 48 hours ago. Interpretive Data For further hscTnI resources including the diagnostic algorithm and an aid in interpretation, copy and paste this link: [email or web address]://bjhlab.testcatalog.org/show/[email or web address] Current Interpretive Data last revised 2019. Blood 01/23/2024 6:12 AM ANNEALER 01/23/2024 6:31 AM ANNEALER Ayush Galvez MD LAB BLOOD ORDERABLES Final Result Performing Organization Address [facility] de Phone Number [facility] Department [place] [address] * (ABNORMAL) eGFR (01/23/2024 2:42 AM ANNEALER) eGFR 11(L) >=60 mL/min/1. 73 m2 Comment: [...] last reviewed 2020. Blood 01/23/2024 2:42 AM ANNEALER 01/23/2024 3:02 AM ANNEALER us Ayush Galvez MD LAB BLOOD ORDERABLES Final Result [facility] Department [place] [address] * (ABNORMAL) Differential, auto (01/23/2024 2:42 AM ANNEALER) Neutrophil abs 6.7(H) 1.5 - 6.5 K/cumm Imm gran abs 0.1 0.0 - 0.1 K/cumm [facility] Lymphocyte abs 0.1(L) 0.8 - 3.3 K/cumm [facility] Monocyte abs 0.1(L) 0.2 - 0.8 K/cumm [facility] Eosinophil abs 0.0 0.0 - 0.5 K/cumm [facility] Basophil abs 0.0 0.0 - 0.1 K/cumm [facility] Neutrophil pct 96.4 % [facility] Comment: Interpretive Data Percent cell count reference ranges are not reported, since discordance with absolute values may lead to misinterpretation of CBC data. Current Interpretive Data was last revised on 2017. Imm gran pct 0.7 % [facility] Comment: Interpretive Data Percent cell count reference ranges are not reported, since discordance with absolute values may lead to misinterpretation of CBC data. Current Interpretive Data was last revised on 2017. Lymphocyte pct 0.9 % [facility] Comment: Interpretive Data Percent cell count reference ranges are not reported, since discordance with absolute values may lead to misinterpretation of CBC data. Current Interpretive Data was last revised on 2017. Monocyte pct 2.0 % [facility] Comment: Interpretive Data Percent cell count reference ranges are not reported, since discordance with absolute values may lead to misinterpretation of CBC data. Current Interpretive Data was last revised on 2017. Eosinophil pct 0.0 % [facility] Comment: Interpretive Data Percent cell count reference ranges are not reported, since discordance with absolute values may lead to misinterpretation of CBC data. Current Interpretive Data was last revised on 2017. Basophil pct 0.0 % [facility] Comment: Interpretive Data Percent cell count reference ranges are not reported, since discordance with absolute values may lead to misinterpretation of CBC data. Current Interpretive Data was last revised on 2017. Blood 01/23/2024 2:42 AM ANNEALER 01/23/2024 3:02 AM ANNEALER Ayush Galvez MD LAB BLOOD ORDERABLES Final Result Performing Organization Address [facility] de Phone Number [facility] [place] [address] * Tacrolimus level trough (01/23/2024 2:42 AM ANNEALER) [facility] Tacrolimus trough 7.8 ng/mL Comment: Interpretive Data Testing performed by liquid chromatography-tandem mass spectrometry. Therapeutic concentrations vary depending on type of transplanted organ and time elapsed since transplant. Typical trough concentrations range from 5-15 ng/mL. This test was developed and its performance characteristics determined by the [facility] consistent with CLIA requirements. This test has not been cleared or approved by the US Food and Drug administration. Current interpretive data last reviewed 2019. Blood 01/23/2024 2:42 AM ANNEALER 01/23/2024 3:02 AM ANNEALER Ayush Galvez MD LAB BLOOD ORDERABLES Final Result Performing Organization Address [facility] Co de Phone Number [facility] [place] [address] * (ABNORMAL) CBC with auto differential (01/23/2024 2:42 AM ANNEALER) [facility] WBC 7.0 3.8 - 9.9 K/cumm Hgb 8.8(L) 13.0 - 17.5 g/dL [facility] Hct 26.4(L) 38.9 - 50.3 % [facility] Plt 89(L) 150 - 400 K/cumm [facility] MPV 11.1 9.1 - 12.3 fL [facility] RBC 2.77(L) 4.30 - 5.80 M/cumm [facility] MCV 95.3 81.3 - 96.4 fL [facility] MCH 31.8 27.1 - 33.3 pg [facility] MCHC 33.3 32.3 - 35.7 g/dL [facility] RDW CV 18.2(H) 11.1 - 14.9 % [facility] RDW SD 63.3(H) 35.7 - 48.1 fL [facility] NRBC abs 0.00 0.00 - 0.01 K/cumm [facility] Blood 01/23/2024 2:42 AM ANNEALER 01/23/2024 3:02 AM ANNEALER Ayush Galvez MD LAB BLOOD ORDERABLES Final Result Performing Organization Address [facility] Co de Phone Number [facility] Department [place] [address] * Magnesium (01/23/2024 2:42 AM ANNEALER) [facility] Magnesium 2.5 1.4 - 2.5 mg/dL Blood 01/23/2024 2:42 AM ANNEALER 01/23/2024 3:02 AM ANNEALER Ayush Galvez MD LAB BLOOD ORDERABLES Final Result Performing Organization Address [facility] Co de Phone Number [facility] Department [place] [address] * (ABNORMAL) Renal function panel (01/23/2024 2:42 AM ANNEALER) Pathologist [facility] Sodium 135 135 - 145 mmol/L Potassium, pl 4.7 3.3 - 4.9 mmol/L [facility] Chloride 95(L) 97 - 110 mmol/L [facility] CO2 26 22 - 32 mmol/L [facility] Anion gap 14 2 - 15 mmol/L [facility] BUN 46(H) 6 - 25 mg/dL [facility] Creatinine 5.52(H) 0.80 - 1.30 mg/dL [facility] Glucose 178 70 - 199 mg/dL [facility] Comment: Interpretive Data Fasting glucose >/= [...] Calcium 9.1 8.5 - 10.3 mg/dL [facility] Phosphorus, pl 7.8(H) 2.3 - 4.5 mg/dL [facility] Albumin 3.3(L) 3.5 - 5.0 g/dL [facility] Blood 01/23/2024 2:42 AM ANNEALER 01/23/2024 3:02 AM ANNEALER Ayush Galvez MD LAB BLOOD ORDERABLES Final Result [facility] Department [place] [address] * (ABNORMAL) Troponin I high-sensitivity (01/23/2024 2:41 AM ANNEALER) Trop I hs 1,365(C) <=35 ng/L Comment: Previous critical value noted within 48 hours ago. Interpretive Data For further [facility] resources including the diagnostic algorithm and an aid in interpretation, copy and paste this link: [email or web address].testcatalog.org/show/[email or web address] Current Interpretive Data last revised 2019. Blood 01/23/2024 2:41 AM ANNEALER 01/23/2024 3:14 AM ANNEALER Ayush Galvez MD LAB BLOOD ORDERABLES Final Result [facility] Department [place] [address] * ECG 12 lead (01/23/2024 1:02 AM ANNEALER) Ventricular Rate EKG/Min 71 BPM [facility] Atrial Rate 250 BPM [facility] QRS-Interval (MSEC) 134 ms [facility] QT-Interval (MSEC) 436 ms [facility] QTc 473 ms [facility] R Preston 8 degrees [facility] T Preston 248 degrees [facility] Diagnosis Atrial fibrillation Non-specific intra-ventricula r conduction block T wave abnormality, consider inferolateral ischemia Abnormal ECG When compared with ECG of 22-JAN-2024 15:39, (unconfirmed) No significant change was found Confirmed by JENNIFER BYRD M.D ([id number]) on 01/25/2024 3:00:07 PM [facility] 01/23/2024 1:02 AM ANNEALER 01/25/2024 3:00 PM ANNEALER Result [facility] Ayush Galvez MD ECG ORDERABLES Final Resul t Performing Organization Address [facility] Co de Phone Number [facility] * (ABNORMAL) Troponin I high-sensitivity (01/22/2024 11:14 PM ANNEALER) Pathologist [facility] Trop I hs 1,127(C) <=35 ng/L Comment: Previous critical value noted within 48 hours ago. Interpretive Data For further hscTnI resources including the diagnostic algorithm and an aid in interpretation, copy and paste this link: [email or web address]://bjhlab.testcatalog.org/show/[email or web address] Current Interpretive Data last revised 2019. Blood 01/22/2024 11:1 4 PM ANNEALER 01/22/2024 11:57 PM ANNEALER Result [facility] Ayush Galvez MD LAB BLOOD ORDERABLES Final Result Performing Organization Address [facility] Co de Phone Number [facility] Department [place] [address] * (ABNORMAL) Troponin I high-sensitivity (01/22/2024 11:14 PM ANNEALER) Pathologist [facility] Trop I hs 1,220(C) <=35 ng/L Comment: Previous critical value noted within 48 hours ago. Interpretive Data For further [facility] resources including the diagnostic algorithm and an aid in interpretation, copy and paste this link: [email or web address]://[email or web address].testcatalog.org/show/[email or web address] Current Interpretive Data last revised 2019. Blood 01/22/2024 11:1 4 PM ANNEALER 01/22/2024 11:56 PM ANNEALER Ayush Galvez MD LAB BLOOD ORDERABLES Final Result Performing Organization Address [facility] de Phone Number [facility] Department [place] [address] * (ABNORMAL) Differential, auto (01/22/2024 11:14 PM ANNEALER) [facility] Neutrophil abs 7.1(H) 1.5 - 6.5 K/cumm Imm gran abs 0.0 0.0 - 0.1 K/cumm [facility] Lymphocyte abs 0.0(L) 0.8 - 3.3 K/cumm [facility] Monocyte abs 0.2 0.2 - 0.8 K/cumm [facility] Eosinophil abs 0.0 0.0 - 0.5 K/cumm [facility] Basophil abs 0.0 0.0 - 0.1 K/cumm [facility] Neutrophil pct 96.8 % [facility] Comment: Interpretive Data Percent cell count reference ranges are not reported, since discordance with absolute values may lead to misinterpretation of CBC data. Current Interpretive Data was last revised on 2017. Imm gran pct 0.5 % [facility] Comment: Interpretive Data Percent cell count reference ranges are not reported, since discordance with absolute values may lead to misinterpretation of CBC data. Current Interpretive Data was last revised on 2017. Lymphocyte pct 0.5 % [facility] Comment: Interpretive Data Percent cell count reference ranges are not reported, since discordance with absolute values may lead to misinterpretation of CBC data. Current Interpretive Data was last revised on 2017. Monocyte pct 2.2 % [facility] Comment: Interpretive Data Percent cell count reference ranges are not reported, since discordance with absolute values may lead to misinterpretation of CBC data. Current Interpretive Data was last revised on 2017. Eosinophil pct 0.0 % [facility] Comment: Interpretive Data Percent cell count reference ranges are not reported, since discordance with absolute values may lead to misinterpretation of CBC data. Current Interpretive Data was last revised on 2017. Basophil pct 0.0 % [facility] Comment: Interpretive Data Percent cell count reference ranges are not reported, since discordance with absolute values may lead to misinterpretation of CBC data. Current Interpretive Data was last revised on 2017. Blood 01/22/2024 11:1 4 PM ANNEALER 01/22/2024 11:56 PM ANNEALER Larry Travis MD LAB BLOOD ORDERABLE S Final Result [facility] Department [place] [address] * Tacrolimus level trough (01/22/2024 11:14 PM ANNEALER) Tacrolimus trough 11.3 ng/mL Comment: reviewed Interpretive Data Testing performed by liquid chromatography-tandem mass spectrometry. Therapeutic concentrations vary depending on type of transplanted organ and time elapsed since transplant. Typical trough concentrations range from 5-15 ng/mL. This test was developed and its performance characteristics determined by the [facility] consistent with CLIA requirements. This test has not been cleared or approved by the [place] Food and Drug administration. Current interpretive data last reviewed 2019. Blood 01/22/2024 11:1 4 PM ANNEALER 01/22/2024 11:57 PM ANNEALER Ayush Galvez MD LAB BLOOD ORDERABLES Final Result Performing Organization Address City/[facility]/ZIP Co de Phone Number [facility] [place] [address] * (ABNORMAL) CBC with auto differential (01/22/2024 11:14 PM ANNEALER) WBC 7.4 3.8 - 9.9 K/cumm Hgb 8.5(L) 13.0 - 17.5 g/dL [facility] Hct 25.8(L) 38.9 - 50.3 % [facility] Plt 83(L) 150 - 400 K/cumm [facility] MPV 10.5 9.1 - 12.3 fL [facility] RBC 2.69(L) 4.30 - 5.80 M/cumm [facility] MCV 95.9 81.3 - 96.4 fL [facility] MCH 31.6 27.1 - 33.3 pg [facility] MCHC 32.9 32.3 - 35.7 g/dL [facility] RDW CV 17.6(H) 11.1 - 14.9 % [facility] RDW SD 61.2(H) 35.7 - 48.1 fL [facility] NRBC abs 0.00 0.00 - 0.01 K/cumm [facility] Blood 01/22/2024 11:1 4 PM ANNEALER 01/22/2024 11:56 PM ANNEALER us Ayush Galvez MD LAB BLOOD ORDERABLES Final Result [facility] [facility] [place] [address] * Type and screen (01/22/2024 11:14 PM ANNEALER) ABO Rh O Negative Kusum, indirect Negative [facility] Blood 01/22/2024 11:1 4 PM ANNEALER 01/23/2024 12:05 AM ANNEALER Narrative LINDA BALLARD - 01/23/2024 1:02 AM ANNEALER Has the patient had Daratumumab or Isatuximab in the past 6 months?->Unknown Ayush Galvez MD LAB BLOOD BANK TEST ORDERAB LES Final Result Performing Organization Address City/[facility]/ZIP Co de Phone Number [facility] [place] [address] * Transfuse RBC (01/22/2024 9:29 PM ANNEALER) Blood Ayush Galvez MD BLOOD TRANSFUSION ORDERABLE S Final Result Performing Organization Address [facility] Co de Phone Number [facility] [place] [address] * XR Chest 1 View (01/22/2024 8:41 PM ANNEALER) Anatomical Region Laterality Modality Body, Chest N/A Computed Radiogr aphy 01/23/2024 7:41 AM ANNEALER Impressions 01/23/2024 7:52 AM ANNEALER Comparison is made to chest radiograph dated [...] Erinn Morataya M.D. Narrative 01/23/2024 7:52 AM ANNEALER EXAMINATION: 1 view chest radiograph Procedure Note [...] ult * POCT glucose (01/22/2024 8:07 PM ANNEALER) Glucose, POC 163 70 - 199 mg/dL Blood 01/22/2024 8:07 PM ANNEALER 01/22/2024 8:07 PM ANNEALER Ayush Galvez MD LAB POCT ORDERABLES - DEVIC E Final Result Performing Organization Address [facility] de Phone Number [facility] [place] [address] * POCT glucose (01/22/2024 6:42 PM ANNEALER) [facility] Signature Glucose, POC 173 70 - 199 mg/dL Blood 01/22/2024 6:42 PM ANNEALER 01/22/2024 6:42 PM ANNEALER Ayush Galvez MD LAB POCT ORDERABLES - DEVIC E Final Result Performing Organization Address [facility] de Phone Number [facility] [place] [address] * (ABNORMAL) Troponin I high-sensitivity 6-hour (01/22/2024 6:40 PM ANNEALER) Trop I hs 842(C) <=35 ng/L Comment: Previous critical value noted within 48 hours ago. Interpretive Data For further [facility] resources including the diagnostic algorithm and an aid in interpretation, copy and paste this link: https://bjhlab.testcatalog.org/show/hsTrop-1 Current Interpretive Data last revised 2019. Trop I hs pct delta 46(C) % [facility] Comment:Previous critical va lue noted within 48 hours ago. Trop I hs interp Significa nt(C) [facility] Comment:Previous critical va lue noted within 48 hours ago. Blood 01/22/2024 6:40 PM ANNEALER 01/22/2024 6:54 PM ANNEALER us Sushma Chino MD LAB BLOOD ORDERABLES Final Resu lt [facility] Department [place] [address] * TRANSTHORACIC ECHO (TTE) COMPLETE W DOPPLER/CF W CONTRAST (01/22/2024 5:31 PM ANNEALER) LV EF 45 % CARDIOREPORT Anatomical Region Laterality Modality Ultrasound 01/22/2024 4:15 PM ANNEALER Narrative 01/22/2024 5:57 PM ANNEALER Patient name: Ramone Coleman Date of test: 01/22/2024 Type of test: TTE w/Doppler Hospital #: 0 Date of : 1960 (M) Pmp Certified Project Manager: Hamida Wilkins SAIGE Referring Physician: AYUSH GALVEZ MD Contrast Agent: 0.9 ml Optison Administered, (2.1 ml wasted). Contrast Administered by: SAURAV [id number] Supervised/Interpreted by: Gamaliel Etienne MD Diagnosis: Location: [facility] Reason for test: inu-AS-gzppjtwkd [place] (NSTEMI) MV Structure: Normal, MV Motion: Normal, [...] 2=Hypo 3=Akinetic 4=Dyskin./Aneurysm 0=Not visualized) Parasternal Long Preston:MAS=2 BAS=2 MIL=2 HARINDER=2 Parasternal Short [place]:MAS=2 MIS=2 [place]=3 MIL=2 MAL=2 MA=2 Apical 4 Chambers:=2 MIS=2 BIS=2 BAL=2 MAL=2 AL=2 AC=2 Apical 2 Chambers:AI=2 [place]=3 BI=2 BA=2 MA=2 AA=2 AC=2 LV Global Longitudinal Strain: RV Global Longitudinal Strain: LV Function: Mild Global reduction in LV Ejection Fraction (EF= 41-51%) RV Function: mild to moderate global hypokinesis Septal Motion: Pericardial Effusion: minimal Atrial Septum: Normal DOPPLER/COLOR FLOW DOPPLER RESULTS: Diastolic Function: indeterminate Tricuspid Valve: mild to mod TR Pulmonic Valve: Mild MA AV Regurgitation: No AR seen AV Stenosis: [...] no MS, mild to mod TR, Mild MA. Diastolic function: indeterminate. LVOT VTI 9.9 cm [...] mild MR. Mild to moderate TR. Mild MA. Est. PASP 30-35 mm Hg. Minimal pericardial effusion. Compared with 10/29/20, there has been a significant decrease in LV function. Confirmed on 01/22/2024 - 17:57:22 by Gamaliel Etienne MD By signing this report, the attending paralegal assistant certifies that he or she has personally supervised and interpreted the echocardiogram and has reviewed and or edited and agrees with the written comments contained within the report. Procedure Note Gamaliel Etienne MD - 01/22/2024 Patient name: Ramone Coleman Date of test: 01/22/2024 Type of test: TTE w/Doppler Hospital #: 0 Date of : 1960 (M) Pmp Certified Project Manager: Hamida Wilkins SAIGE Referring Physician: AYUSH GALVEZ MD Contrast Agent: 0.9 ml Optison Administered, (2.1 ml wasted). Contrast Administered by: SAURAV [id number] Supervised/Interpreted by: Gamaliel Etienne MD Diagnosis: Location: [facility] Reason for test: bnd-TM-ydvyzpnzd [place] (NSTEMI) MV Structure: Normal, MV Motion: Normal, [...] 2=Hypo 3=Akinetic 4=Dyskin./Aneurysm 0=Not visualized) Parasternal Long [place]:MAS=2 BAS=2 MIL=2 HARINDER=2 Parasternal Short [place]:MAS=2 MIS=2 [place]=3 MIL=2 MAL=2 MA=2 Apical 4 Chambers:=2 MIS=2 BIS=2 BAL=2 MAL=2 AL=2 AC=2 Apical 2 Chambers:AI=2 [place]=3 BI=2 BA=2 MA=2 AA=2 AC=2 LV Global Longitudinal Strain: RV Global Longitudinal Strain: LV Function: Mild Global reduction in LV Ejection Fraction (EF= 41-51%) RV Function: mild to moderate global hypokinesis Septal Motion: Pericardial Effusion: minimal Atrial Septum: Normal DOPPLER/COLOR FLOW DOPPLER RESULTS: Diastolic Function: indeterminate Tricuspid Valve: mild to mod TR Pulmonic Valve: Mild MA AV Regurgitation: No AR seen AV Stenosis: [...] no MS, mild to mod TR, Mild MA. Diastolic function: indeterminate. LVOT VTI 9.9 cm [...] mild MR. Mild to moderate TR. Mild MA. Est. PASP 30-35 mm Hg. Minimal pericardial effusion. Compared with 10/29/20, there has been a significant decrease in LV function. Confirmed on 01/22/2024 - 17:57:22 by Gamaliel Etienne MD By signing this report, the attending paralegal assistant certifies that he or she has personally supervised and interpreted the echocardiogram and has reviewed and or edited and agrees with the written comments contained within the report. us Ayush Galvez MD CV ECHO PROCEDURES Final Re sult * (ABNORMAL) Troponin I high-sensitivity 4-hour (01/22/2024 4:14 PM ANNEALER) Trop I hs 738(C) <=35 ng/L Comment: Previous critical value noted within 48 hours ago. Interpretive Data For further hscTnI resources including the diagnostic algorithm and an aid in interpretation, copy and paste this link: https://bjhlab.testcatalog.org/show/hsTrop-1 Current Interpretive Data last revised 2019. Trop I hs pct delta 28(C) % [facility] Comment:Previous critical va lue noted within 48 hours ago. Trop I hs interp Significa nt(C) [facility] Comment:Previous critical va lue noted within 48 hours ago. Blood 01/22/2024 4:14 PM ANNEALER 01/22/2024 4:28 PM ANNEALER us Sushma Chino MD LAB BLOOD ORDERABLES Final Resu lt [facility] Department [place] [address] * Type and screen (01/22/2024 4:14 PM ANNEALER) Kusum, indirect Negative ABO Rh O Negative [facility] Blood 01/22/2024 4:14 PM ANNEALER 01/22/2024 4:25 PM ANNEALER Narrative [facility] - 01/22/2024 5:19 PM ANNEALER Has the patient had Daratumumab or Isatuximab in the past 6 months?->Unknown Rosalie Velásquez NP LAB BLOOD BANK TEST ORDERAB LES Final Result Performing Organization Address City/[facility]/ZIP Co de Phone Number [facility] Department [place] [address] * ECG 12 lead (01/22/2024 3:39 PM ANNEALER) [facility] Ventricular Rate EKG/Min 93 BPM [facility] Atrial Rate 122 BPM [facility] QRS-Interval (MSEC) 134 ms [facility] QT-Interval (MSEC) 408 ms [facility] QTc 507 ms [facility] R Preston 11 degrees [facility] T Preston -33 degrees [facility] Diagnosis Atrial fibrillation Non-specific intra-ventricula r conduction block Nonspecific ST and T wave abnormality Abnormal ECG When compared with ECG of 22-JAN-2024 12:59, (unconfirmed) T wave inversion less evident in Anterolateral leads Confirmed by ERICK ARITA M.D ([id number]) on 01/24/2024 5:47:26 AM [facility] 01/22/2024 3:39 PM ANNEALER 01/24/2024 5:47 AM ANNEALER us Monster Harding MD ECG ORDERABLES Final R esult Performing Organization Address City/[facility]/ZIP Co de Phone Number [facility] * (ABNORMAL) CBC without differential (01/22/2024 2:07 PM ANNEALER) [facility] WBC 5.3 3.8 - 9.9 K/cumm Hgb 7.7(L) 13.0 - 17.5 g/dL [facility] Hct 23.1(L) 38.9 - 50.3 % [facility] Plt 75(L) 150 - 400 K/cumm [facility] MPV 10.5 9.1 - 12.3 fL [facility] RBC 2.35(L) 4.30 - 5.80 M/cumm [facility] MCV 98.3(H) 81.3 - 96.4 fL [facility] MCH 32.8 27.1 - 33.3 pg [facility] MCHC 33.3 32.3 - 35.7 g/dL [facility] RDW CV 15.5(H) 11.1 - 14.9 % [facility] RDW SD 54.8(H) 35.7 - 48.1 fL [facility] NRBC abs 0.00 0.00 - 0.01 K/cumm [facility] Blood 01/22/2024 2:07 PM ANNEALER 01/22/2024 2:29 PM ANNEALER Ayush Galvez MD LAB BLOOD ORDERABLES Final Result [facility] Department [place] [address] * ECG 12 lead (01/22/2024 12:59 PM ANNEALER) Pathologist [facility] Ventricular Rate EKG/Min 112 BPM [facility] Atrial Rate 120 BPM [facility] QRS-Interval (MSEC) 126 ms [facility] QT-Interval (MSEC) 296 ms [facility] QTc 404 ms [facility] R Preston 8 degrees [facility] T Preston 207 degrees [facility] Diagnosis Atrial fibrillation with rapid ventricular response Non-specific intra-ventricula r conduction block Nonspecific ST and T wave abnormality Abnormal ECG When compared with ECG of 21-JAN-2024 05:17, (unconfirmed) Atrial fibrillation has replaced Sinus rhythm ST now depressed in Anterior leads T wave inversion now evident in Anterolateral leads Confirmed by ERICK ARITA M.D ([id number]) on 01/24/2024 5:44:44 AM [facility] 01/22/2024 12:5 9 PM ANNEALER 01/24/2024 5:44 AM ANNEALER Sushma Chino MD ECG ORDERABLES Final Result Performing Organization Address City/[facility]/ZIP Co de Phone Number [facility] * (ABNORMAL) Troponin I high-sensitivity series (baseline, 2hr, 4hr, 6hr) (01/22/2024 12:18 PM ANNEALER) Trop I hs 575(C) <=35 ng/L Comment: Interpretive Data For further hscTnI resources including the diagnostic algorithm and an aid in interpretation, copy and paste this link: https://bjhlab.testcatalog.org/show/hsTrop-1 Current Interpretive Data last revised 2019. Blood 01/22/2024 12:1 8 PM ANNEALER 01/22/2024 12:36 PM ANNEALER Sushma Chino MD LAB BLOOD ORDERABLES Final Resu lt Performing Organization Address [facility] Co de Phone Number [facility] [place] [address] * Critical result callback Cardio chemistry (01/22/2024 12:18 PM ANNEALER) Date Notified [id number] Time Notified [address] [facility] Test name Trop I hs base [facility] Called/Read Back Clarissa Dominguez [facility] Credentials SAURAV MCKEON [facility] Called By CHANDA MCKEON [facility] Blood 01/22/2024 12:1 8 PM ANNEALER 01/22/2024 12:36 PM ANNEALER Sushma Chino MD LAB BLOOD ORDERABLES Final Resu lt Performing Organization Address [facility] Co de Phone Number [facility] Department [place] [address] * (ABNORMAL) eGFR (01/22/2024 12:18 PM ANNEALER) eGFR 13(L) >=60 mL/min/1. 73 m2 Comment: [...] reviewed 2020. Blood 01/22/2024 12:1 8 PM ANNEALER 01/22/2024 12:36 PM ANNEALER Sushma Chino MD LAB BLOOD ORDERABLES [facility] [place], [place] [id number] * (ABNORMAL) Phosphorus (01/22/2024 12:18 PM ANNEALER) Phosphorus, pl 5.8(H) 2.3 - 4.5 mg/dL Blood 01/22/2024 12:1 8 PM ANNEALER 01/22/2024 12:36 PM ANNEALER Sushma Chino MD LAB BLOOD ORDERABLES Final [facility]u lt [facility] [place] [address] * Magnesium (01/22/2024 12:18 PM ANNEALER) Magnesium 1.8 1.4 - 2.5 mg/dL Blood 01/22/2024 12:1 8 PM ANNEALER 01/22/2024 12:36 PM ANNEALER Sushma Chino MD LAB BLOOD ORDERABLES Final Resu lt Performing Organization Address City/[facility]/ZIP Co de Phone Number [facility] Department [place] [address] * (ABNORMAL) Basic metabolic panel (01/22/2024 12:18 PM ANNEALER) Pathologist [facility] Sodium 135 135 - 145 mmol/L Potassium, pl 4.0 3.3 - 4.9 mmol/L [facility] Chloride 94(L) 97 - 110 mmol/L [facility] CO2 26 22 - 32 mmol/L [facility] Anion gap 15 2 - 15 mmol/L [facility] BUN 33(H) 6 - 25 mg/dL [facility] Creatinine 4.67(H) 0.80 - 1.30 mg/dL [facility] Glucose 130 70 - 199 mg/dL [facility] Comment: Interpretive Data Fasting glucose >/= [...] Calcium 8.6 8.5 - 10.3 mg/dL [facility] Blood 01/22/2024 12:1 8 PM ANNEALER 01/22/2024 12:36 PM ANNEALER Sushma Chino MD LAB BLOOD ORDERABLES Final Resu lt Performing Organization Address [facility] Co de Phone Number [facility] Department [place] [address] * POCT glucose (01/22/2024 11:35 AM ANNEALER) Glucose, POC 134 70 - 199 mg/dL Blood 01/22/2024 11:3 5 AM ANNEALER 01/22/2024 11:35 AM ANNEALER Ayush Galvez MD LAB POCT ORDERABLES - DEVIC E Final Result Performing Organization Address City/State/[facility] Co ca Phone Number [facility] [place] [address] * XR Abdomen Ap 1 Vw (01/22/2024 10:29 AM ANNEALER) Anatomical Region Laterality Modality Body, Abdomen N/A Computed Radiogr aphy 01/22/2024 10:3 9 AM ANNEALER Impressions 01/22/2024 11:52 AM ANNEALER A single view of the abdomen is [...] Mohsen Vallejo M.D. Narrative 01/22/2024 11:52 AM ANNEALER EXAMINATION: Abdomen, one view. HISTORY: Abdominal closure [...] it. Electronically signed by: Mohsen Vallejo M.D. Hugo Sousa MD IMG XR PROCEDURES Final Re sult * MA AN ELECTIVE ENDOTRACHEAL AIRWAY, MA AN PROCEDURE PLACEHOLDER (01/22/2024 9:42 AM ANNEALER) Narrative Nisa Patricia CRNA - 01/22/2024 9:42 AM ANNEALER Nisa Patricia CRNA 01/22/2024 9:56 AM Airway [...] Final * (ABNORMAL) eGFR (01/22/2024 9:02 AM ANNEALER) eGFR 13(L) >=60 mL/min/1. 73 m2 Comment: [...] last reviewed 2020. Blood 01/22/2024 9:02 AM ANNEALER 01/22/2024 9:25 AM ANNEALER us Mathieu Hayden MD LAB BLOOD ORDERABLES Final Result [facility] Department [place] [address] * (ABNORMAL) Basic metabolic panel (01/22/2024 9:02 AM ANNEALER) Sodium 134(L) 135 - 145 mmol/L Potassium, pl 4.1 3.3 - 4.9 mmol/L [facility] Chloride 92(L) 97 - 110 mmol/L [facility] CO2 27 22 - 32 mmol/L [facility] Anion gap 15 2 - 15 mmol/L [facility] BUN 32(H) 6 - 25 mg/dL [facility] Creatinine 4.62(H) 0.80 - 1.30 mg/dL [facility] Glucose 168 70 - 199 mg/dL [facility] Comment: Interpretive Data Fasting glucose >/= [...] Calcium 9.2 8.5 - 10.3 mg/dL [facility] Blood 01/22/2024 9:02 AM ANNEALER 01/22/2024 9:25 AM ANNEALER Mathieu Hayden MD LAB BLOOD ORDERABLES Final Result Performing Organization Address [facility] de Phone Number [facility] [place] [address] * POCT glucose (01/22/2024 9:01 AM ANNEALER) Glucose, POC 177 70 - 199 mg/dL Blood 01/22/2024 9:01 AM ANNEALER 01/22/2024 9:01 AM ANNEALER Ayush Galvez MD LAB POCT ORDERABLES - DEVIC E Final Result Performing Organization Address [facility] de Phone Number [facility] [place] [address] * POCT glucose (01/22/2024 8:26 AM ANNEALER) [facility] Glucose, POC 154 70 - 199 mg/dL Blood 01/22/2024 8:26 AM ANNEALER 01/22/2024 8:26 AM ANNEALER Ayush Galvez MD LAB POCT ORDERABLES - DEVIC E Final Result Performing Organization Address [facility] de Phone Number [facility] [place] [address] * (ABNORMAL) eGFR (01/22/2024 4:58 AM ANNEALER) [facility] eGFR 15(L) >=60 mL/min/1. 73 m2 Comment: [...] last reviewed 2020. Blood 01/22/2024 4:58 AM ANNEALER 01/22/2024 5:46 AM ANNEALER us Larry Travis MD LAB BLOOD ORDERABLE S Final Result [facility] Department [place] [address] * (ABNORMAL) Differential, auto (01/22/2024 4:58 AM ANNEALER) Pathologist [facility] Neutrophil abs 5.8 1.5 - 6.5 K/cumm Imm gran abs 0.0 0.0 - 0.1 K/cumm [facility] Lymphocyte abs 0.0(L) 0.8 - 3.3 K/cumm [facility] Monocyte abs 0.2 0.2 - 0.8 K/cumm [facility] Eosinophil abs 0.0 0.0 - 0.5 K/cumm [facility] Basophil abs 0.0 0.0 - 0.1 K/cumm [facility] Neutrophil pct 96.0 % [facility] Comment: Interpretive Data Percent cell count reference ranges are not reported, since discordance with absolute values may lead to misinterpretation of CBC data. Current Interpretive Data was last revised on 2017. Imm gran pct 0.3 % [facility] Comment: Interpretive Data Percent cell count reference ranges are not reported, since discordance with absolute values may lead to misinterpretation of CBC data. Current Interpretive Data was last revised on 2017. Lymphocyte pct 0.7 % [facility] Comment: Interpretive Data Percent cell count reference ranges are not reported, since discordance with absolute values may lead to misinterpretation of CBC data. Current Interpretive Data was last revised on 2017. Monocyte pct 3.0 % [facility] Comment: Interpretive Data Percent cell count reference ranges are not reported, since discordance with absolute values may lead to misinterpretation of CBC data. Current Interpretive Data was last revised on 2017. Eosinophil pct 0.0 % [facility] Comment: Interpretive Data Percent cell count reference ranges are not reported, since discordance with absolute values may lead to misinterpretation of CBC data. Current Interpretive Data was last revised on 2017. Basophil pct 0.0 % [facility] Comment: Interpretive Data Percent cell count reference ranges are not reported, since discordance with absolute values may lead to misinterpretation of CBC data. Current Interpretive Data was last revised on 2017. Blood 01/22/2024 4:58 AM ANNEALER 01/22/2024 5:45 AM ANNEALER Larry Travis MD LAB BLOOD ORDERABLE S Final Result [facility] Department [place] [address] * Tacrolimus level trough (01/22/2024 4:58 AM ANNEALER) Tacrolimus trough 4.7 ng/mL Comment: Interpretive Data Testing performed by liquid chromatography-tandem mass spectrometry. Therapeutic concentrations vary depending on type of transplanted organ and time elapsed since transplant. Typical trough concentrations range from 5-15 ng/mL. This test was developed and its performance characteristics determined by the [facility] consistent with CLIA requirements. This test has not been cleared or approved by the [place] Food and Drug administration. Current interpretive data last reviewed 2019. Blood 01/22/2024 4:58 AM ANNEALER 01/22/2024 5:46 AM ANNEALER Ayush Galvez MD LAB BLOOD ORDERABLES Final Result Performing Organization Address [facility] Co de Phone Number [facility] [place] [address] * (ABNORMAL) CBC with auto differential (01/22/2024 4:58 AM ANNEALER) Pathologist [facility] WBC 6.0 3.8 - 9.9 K/cumm Hgb 8.2(L) 13.0 - 17.5 g/dL [facility] Hct 23.8(L) 38.9 - 50.3 % [facility] Plt 79(L) 150 - 400 K/cumm [facility] MPV 10.2 9.1 - 12.3 fL [facility] RBC 2.48(L) 4.30 - 5.80 M/cumm [facility] MCV 96.0 81.3 - 96.4 fL [facility] MCH 33.1 27.1 - 33.3 pg [facility] MCHC 34.5 32.3 - 35.7 g/dL [facility] RDW CV 15.3(H) 11.1 - 14.9 % [facility] RDW SD 53.1(H) 35.7 - 48.1 fL [facility] NRBC abs 0.00 0.00 - 0.01 K/cumm [facility] Blood 01/22/2024 4:58 AM ANNEALER 01/22/2024 5:45 AM ANNEALER Ayush Galvez MD LAB BLOOD ORDERABLES Final Result [facility] [place] [address] * Magnesium (01/22/2024 4:58 AM ANNEALER) Pathologist [facility] Magnesium 2.2 1.4 - 2.5 mg/dL Blood 01/22/2024 4:58 AM ANNEALER 01/22/2024 5:46 AM ANNEALER Ayush Galvez MD LAB BLOOD ORDERABLES Final Result Performing Organization Address [facility] Co de Phone Number [facility] [place] [address] * (ABNORMAL) Lactate dehydrogenase (LD) (01/22/2024 4:58 AM ANNEALER) Pathologist [facility] Lactate dehydrogenase (LDH) 252(H) 100 - 250 Units/L Blood 01/22/2024 4:58 AM ANNEALER 01/22/2024 5:46 AM ANNEALER Ayush Galvez MD LAB BLOOD ORDERABLES Final Result Performing Organization Address [facility] de Phone Number [facility] [place] [address] * Haptoglobin (01/22/2024 4:58 AM ANNEALER) [facility] Haptoglobin 116.0 30.0 - 200.0 mg/dL Blood 01/22/2024 4:58 AM ANNEALER 01/22/2024 5:46 AM ANNEALER Ayush Galvez MD LAB BLOOD ORDERABLES Final Result Performing Organization Address [facility] de Phone Number [facility] [place] [address] * (ABNORMAL) Renal function panel (01/22/2024 4:58 AM ANNEALER) Sodium 134(L) 135 - 145 mmol/L Potassium, pl 4.4 3.3 - 4.9 mmol/L [facility] Chloride 93(L) 97 - 110 mmol/L [facility] CO2 30 22 - 32 mmol/L [facility] Anion gap 11 2 - 15 mmol/L [facility] BUN 29(H) 6 - 25 mg/dL [facility] Creatinine 4.19(H) 0.80 - 1.30 mg/dL [facility] Glucose 125 70 - 199 mg/dL [facility] Comment: Interpretive Data Fasting glucose >/= [...] Calcium 9.2 8.5 - 10.3 mg/dL [facility] Phosphorus, pl 5.6(H) 2.3 - 4.5 mg/dL [facility] Albumin 3.4(L) 3.5 - 5.0 g/dL [facility] Blood 01/22/2024 4:58 AM ANNEALER 01/22/2024 5:46 AM ANNEALER Ayush Galvez MD LAB BLOOD ORDERABLES Final Result [facility] [place] [address] * (ABNORMAL) POCT glucose (01/21/2024 8:34 PM ANNEALER) Glucose, POC 238(H) 70 - 199 mg/dL Blood 01/21/2024 8:34 PM ANNEALER 01/21/2024 8:34 PM ANNEALER Ayush Galvez MD LAB POCT ORDERABLES - DEVIC E Final Result [facility] [place] [address] * (ABNORMAL) POCT glucose (01/21/2024 6:37 PM ANNEALER) Glucose, POC 202(H) 70 - 199 mg/dL Blood 01/21/2024 6:37 PM ANNEALER 01/21/2024 6:37 PM ANNEALER Ayush Galvez MD LAB POCT ORDERABLES - DEVIC E Final Result Performing Organization Address City/[facility]/ZIP Co de Phone Number [facility] [place] [address] * (ABNORMAL) Potassium, whole blood (01/21/2024 4:22 PM ANNEALER) [facility] Potassium, bld 6.0(H) 3.3 - 4.9 mmol/L Blood 01/21/2024 4:22 PM ANNEALER 01/21/2024 4:32 PM ANNEALER us Rosalie Velásquez NP LAB BLOOD ORDERABLES Final Result Performing Organization Address [facility] Co de Phone Number [facility] Department [place] [address] * (ABNORMAL) CBC without differential (01/21/2024 1:51 PM ANNEALER) [facility] WBC 14.5(H) 3.8 - 9.9 K/cumm Hgb 8.5(L) 13.0 - 17.5 g/dL [facility] Hct 25.8(L) 38.9 - 50.3 % [facility] Plt 101(L) 150 - 400 K/cumm [facility] MPV 10.4 9.1 - 12.3 fL [facility] RBC 2.61(L) 4.30 - 5.80 M/cumm [facility] MCV 98.9(H) 81.3 - 96.4 fL [facility] MCH 32.6 27.1 - 33.3 pg [facility] MCHC 32.9 32.3 - 35.7 g/dL [facility] RDW CV 15.6(H) 11.1 - 14.9 % [facility] RDW SD 55.2(H) 35.7 - 48.1 fL [facility] NRBC abs 0.00 0.00 - 0.01 K/cumm [facility] Blood 01/21/2024 1:51 PM ANNEALER 01/21/2024 2:12 PM ANNEALER us Susi LEE LAB BLOOD ORDERABLES Final Result Performing Organization Address [facility] Co de Phone Number [facility] Department [place] [address] * POCT glucose (01/21/2024 12:26 PM ANNEALER) [facility] Signature Glucose, POC 178 70 - 199 mg/dL Blood 01/21/2024 12:2 6 PM ANNEALER 01/21/2024 12:26 PM ANNEALER Ayush Galvez MD LAB POCT ORDERABLES - DEVIC E Final Result Performing Organization Address [facility] de Phone Number [facility] [place] [address] * MA AN PROCEDURE PLACEHOLDER (01/21/2024 10:41 AM ANNEALER) Narrative Roscoe Sandhu MD - 01/21/2024 10:41 AM ANNEALER Roscoe Sandhu MD 01/21/2024 10:43 AM Arterial [...] sult * (ABNORMAL) Potassium (01/21/2024 8:39 AM ANNEALER) Potassium, pl 6.1(H) 3.3 - 4.9 mmol/L Blood 01/21/2024 8:39 AM ANNEALER 01/21/2024 9:10 AM ANNEALER N[facility]ative [facility] - 01/21/[facility] 9:32 AM ANNEALER Provider to discontinue after two normal results. Ayush Galvez MD LAB BLOOD ORDERABLES Final Result Performing Organization Address City/State/[facility] Co de Phone Number [facility] [place] [address] * (ABNORMAL) POCT glucose (01/21/2024 8:10 AM ANNEALER) Glucose, POC 297(H) 70 - 199 mg/dL Blood 01/21/2024 8:10 AM ANNEALER 01/21/2024 8:10 AM ANNEALER Ayush Galvez MD LAB POCT ORDERABLES - DEVIC E Final Result Performing Organization Address City/[facility] Co de Phone Number [facility] Department [place] [address] * (ABNORMAL) POCT glucose (01/21/2024 6:47 AM ANNEALER) Glucose, POC 236(H) 70 - 199 mg/dL Blood 01/21/2024 6:47 AM ANNEALER 01/21/2024 6:47 AM ANNEALER Ayush Galvez MD LAB POCT ORDERABLES - DEVIC E Final Result Performing Organization Address City/[facility] Co de Phone Number [facility] [place] [address] * (ABNORMAL) POCT glucose (01/21/2024 5:46 AM ANNEALER) Glucose, POC 234(H) 70 - 199 mg/dL Blood 01/21/2024 5:46 AM ANNEALER 01/21/2024 5:46 AM ANNEALER us Ayush Galvez MD LAB POCT ORDERABLES - DEVIC E Final Result Performing Organization Address [facility] de Phone Number [facility] Department [place] [address] * (ABNORMAL) Potassium, whole blood (01/21/2024 5:22 AM ANNEALER) Pathologist [facility] Potassium, bld 5.7(H) 3.3 - 4.9 mmol/L Comment:No hemolyse Blood 01/21/2024 5:22 AM ANNEALER 01/21/2024 5:28 AM ANNEALER Ayush Galvez MD LAB BLOOD ORDERABLES Final Result Performing Organization Address [facility] de Phone Number [facility] [place] [address] * ECG 12 lead (01/21/2024 5:17 AM ANNEALER) [facility] Ventricular Rate EKG/Min 82 BPM [facility] Atrial Rate 82 BPM [facility] MA-Interval (MSEC) 256 ms [facility] QRS-Interval (MSEC) 132 ms [facility] QT-Interval (MSEC) 408 ms [facility] QTc 476 ms [facility] P Preston 71 degrees [facility] R Preston 13 degrees [facility] T Preston -20 degrees [facility] Diagnosis Sinus rhythm with marked sinus arrhythmia with 1st degree A-V block Non-specific intra-ventricu lar conduction block Abnormal ECG When compared with ECG of 17-SEP-2023 08:34, No significant change was found Confirmed by JENNIFER BYRD M.D ([id number]) on 01/22/2024 5:00:18 PM [facility] 01/21/2024 5:17 AM ANNEALER 01/22/2024 5:00 PM ANNEALER us Ayush Galvez MD ECG ORDERABLES Final Resul t [facility] * (ABNORMAL) eGFR (01/21/2024 4:18 AM ANNEALER) eGFR 10(L) >=60 mL/min/1. 73 m2 Comment: [...] last reviewed 2020. Blood 01/21/2024 4:18 AM ANNEALER 01/21/2024 4:33 AM ANNEALER us Larry Travis MD LAB BLOOD ORDERABLE S Final Result Performing Organization Address City/[facility]/ZIP Co de Phone Number [facility] [place] [address] * (ABNORMAL) Differential, auto (01/21/2024 4:18 AM ANNEALER) Neutrophil abs 10.2(H) 1.5 - 6.5 K/cumm Imm gran abs 0.0 0.0 - 0.1 K/cumm [facility] Lymphocyte abs 0.0(L) 0.8 - 3.3 K/cumm [facility] Monocyte abs 0.2 0.2 - 0.8 K/cumm [facility] Eosinophil abs 0.0 0.0 - 0.5 K/cumm [facility] Basophil abs 0.0 0.0 - 0.1 K/cumm [facility] Neutrophil pct 97.4 % [facility] Comment: Interpretive Data Percent cell count reference ranges are not reported, since discordance with absolute values may lead to misinterpretation of CBC data. Current Interpretive Data was last revised on 2017. Imm gran pct 0.4 % [facility] Comment: Interpretive Data Percent cell count reference ranges are not reported, since discordance with absolute values may lead to misinterpretation of CBC data. Current Interpretive Data was last revised on 2017. Lymphocyte pct 0.2 % [facility] Comment: Interpretive Data Percent cell count reference ranges are not reported, since discordance with absolute values may lead to misinterpretation of CBC data. Current Interpretive Data was last revised on 2017. Monocyte pct 1.9 % [facility] Comment: Interpretive Data Percent cell count reference ranges are not reported, since discordance with absolute values may lead to misinterpretation of CBC data. Current Interpretive Data was last revised on 2017. Eosinophil pct 0.0 % [facility] Comment: Interpretive Data Percent cell count reference ranges are not reported, since discordance with absolute values may lead to misinterpretation of CBC data. Current Interpretive Data was last revised on 2017. Basophil pct 0.1 % [facility] Comment: Interpretive Data Percent cell count reference ranges are not reported, since discordance with absolute values may lead to misinterpretation of CBC data. Current Interpretive Data was last revised on 2017. Blood 01/21/2024 4:18 AM ANNEALER 01/21/2024 4:34 AM ANNEALER us Larry Travis MD LAB BLOOD ORDERABLE S Final Result [facility] Department [place] [address] * Critical Result Callback Chemistry (01/21/2024 4:18 AM ANNEALER) Date Notified [id number] Time Notified 509 [facility] TestName Potassium Plas [facility] Called/Read Back Vibha [facility]KEON [facility] Credentials RN [facility]DA [facility] Called By SANDEEP MCKEON [facility] Blood 01/21/2024 4:18 AM ANNEALER 01/21/2024 4:33 AM ANNEALER Larry Travis MD LAB BLOOD ORDERABLE S Final Result Performing Organization Address [facility] Co de Phone Number [facility] Department [place] [address] * Tacrolimus level trough (01/21/2024 4:18 AM ANNEALER) Pathologist [facility] Tacrolimus trough <1.0 ng/mL Comment: Undetectable. Please verify that the correct immunosuppressant test was requested. Interpretive Data Testing performed by liquid chromatography-tandem mass spectrometry. Therapeutic concentrations vary depending on type of transplanted organ and time elapsed since transplant. Typical trough concentrations range from 5-15 ng/mL. This test was developed and its performance characteristics determined by the [facility] consistent with CLIA requirements. This test has not been cleared or approved by the [place] Food and Drug administration. Current interpretive data last reviewed 2019. Blood 01/21/2024 4:18 AM ANNEALER 01/21/2024 4:34 AM ANNEALER Ayush Galvez MD LAB BLOOD ORDERABLES Final Result Performing Organization Address City/[facility] Co de Phone Number [facility] Department [place] [address] * (ABNORMAL) CBC with auto differential (01/21/2024 4:18 AM ANNEALER) [facility] WBC 10.5(H) 3.8 - 9.9 K/cumm Hgb 8.7(L) 13.0 - 17.5 g/dL [facility] Hct 25.8(L) 38.9 - 50.3 % [facility] Plt 110(L) 150 - 400 K/cumm [facility] MPV 9.7 9.1 - 12.3 fL [facility] RBC 2.66(L) 4.30 - 5.80 M/cumm [facility] MCV 97.0(H) 81.3 - 96.4 fL [facility] MCH 32.7 27.1 - 33.3 pg [facility] MCHC 33.7 32.3 - 35.7 g/dL [facility] RDW CV 15.9(H) 11.1 - 14.9 % [facility] RDW SD 55.3(H) 35.7 - 48.1 fL [facility] NRBC abs 0.00 0.00 - 0.01 K/cumm [facility] Blood 01/21/2024 4:18 AM ANNEALER 01/21/2024 4:34 AM ANNEALER Ayush Galvez MD LAB BLOOD ORDERABLES Final Result Performing Organization Address [facility] Co de Phone Number [facility] Department [place] [address] * Magnesium (01/21/2024 4:18 AM ANNEALER) [facility] Magnesium 2.1 1.4 - 2.5 mg/dL Blood 01/21/2024 4:18 AM ANNEALER 01/21/2024 4:33 AM ANNEALER Ayush Galvez MD LAB BLOOD ORDERABLES Final Result Performing Organization Address [facility] Co de Phone Number [facility] [place] [address] * (ABNORMAL) Renal function panel (01/21/2024 4:18 AM ANNEALER) [facility] Sodium 135 135 - 145 mmol/L Potassium, pl 6.4(C) 3.3 - 4.9 mmol/L [facility] Chloride 94(L) 97 - 110 mmol/L [facility] CO2 25 22 - 32 mmol/L [facility] Anion gap 16(H) 2 - 15 mmol/L [facility] BUN 34(H) 6 - 25 mg/dL [facility] Creatinine 5.99(H) 0.80 - 1.30 mg/dL [facility] Glucose 217(H) 70 - 199 mg/dL [facility] Comment: Interpretive Data Fasting glucose >/= [...] Calcium 9.0 8.5 - 10.3 mg/dL [facility] Phosphorus, pl 6.5(H) 2.3 - 4.5 mg/dL [facility] Albumin 3.5 3.5 - 5.0 g/dL [facility] Blood 01/21/2024 4:18 AM ANNEALER 01/21/2024 4:33 AM ANNEALER Ayush Galvez MD LAB BLOOD ORDERABLES Final Result [facility] Department [place] [address] * US Renal Transplant W Dopplers (01/20/2024 11:24 PM ANNEALER) Anatomical Region Laterality Modality Kidney N/A Ultrasound 01/21/2024 1:42 AM ANNEALER Impressions 01/21/2024 8:21 AM ANNEALER 1. Normal transplant kidney morphology without hydronephrosis. [...] Kyle Perez M.D. Narrative 01/21/2024 8:21 AM ANNEALER EXAMINATION: RENAL TRANSPLANT ULTRASOUND WITH DOPPLER HISTORY: [...] * (ABNORMAL) POCT glucose (01/20/2024 8:56 PM ANNEALER) Glucose, POC 263(H) 70 - 199 mg/dL Blood 01/20/2024 8:56 PM ANNEALER 01/20/2024 8:56 PM ANNEALER us Ayush Galvez MD LAB POCT ORDERABLES - DEVIC E Final Result [facility] Department [place] [address] * XR Chest 1 View (01/20/2024 5:58 PM ANNEALER) Anatomical Region Laterality Modality Body, Chest N/A Computed Radiogr aphy 01/21/2024 9:14 AM ANNEALER Impressions 01/21/2024 9:14 AM ANNEALER Comparison 01/18/2024. Sternal plates and wires are aligned and intact. Right internal jugular central venous catheter tip overlies superior vena cava. Mild bibasilar opacity may represent a combination of mild edema and atelectasis superimposed on underlying chronic interstitial lung disease, unchanged given the smaller lung volumes. No pneumothorax seen. Cardiomediastinal silhouette stable. Electronically signed by: Omar Hollins M.D. Narrative 01/21/2024 9:14 AM ANNEALER EXAMINATION: 1 view chest radiograph Procedure Note [...] esult * (ABNORMAL) eGFR (01/20/2024 5:08 PM ANNEALER) eGFR 12(L) >=60 mL/min/1. 73 m2 Comment: [...] last reviewed 2020. Blood 01/20/2024 5:08 PM ANNEALER 01/20/2024 5:27 PM ANNEALER us Larry Travis MD LAB BLOOD ORDERABLE S Final Result [facility] Department of Laboratories [place], [place] [id number] * (ABNORMAL) CBC without differential (01/20/2024 5:08 PM ANNEALER) WBC 11.3(H) 3.8 - 9.9 K/cumm Hgb 9.4(L) 13.0 - 17.5 g/dL [facility] Hct 28.1(L) 38.9 - 50.3 % [facility] Plt 134(L) 150 - 400 K/cumm [facility] MPV 9.4 9.1 - 12.3 fL [facility] RBC 2.88(L) 4.30 - 5.80 M/cumm [facility] MCV 97.6(H) 81.3 - 96.4 fL [facility] MCH 32.6 27.1 - 33.3 pg [facility] MCHC 33.5 32.3 - 35.7 g/dL [facility] RDW CV 15.4(H) 11.1 - 14.9 % [facility] RDW SD 54.8(H) 35.7 - 48.1 fL [facility] NRBC abs 0.03(H) 0.00 - 0.01 K/cumm [facility] Blood 01/20/2024 5:08 PM ANNEALER 01/20/2024 5:27 PM ANNEALER Larry Travis MD LAB BLOOD ORDERABLE S Final Result [facility] Department [place] [address] * (ABNORMAL) Renal function panel (01/20/2024 5:08 PM ANNEALER) Sodium 136 135 - 145 mmol/L Potassium, pl 5.0(H) 3.3 - 4.9 mmol/L [facility] Chloride 95(L) 97 - 110 mmol/L [facility] CO2 27 22 - 32 mmol/L [facility] Anion gap 14 2 - 15 mmol/L [facility] BUN 25 6 - 25 mg/dL [facility] Creatinine 5.21(H) 0.80 - 1.30 mg/dL [facility] Glucose 180 70 - 199 mg/dL [facility] Comment: Interpretive Data Fasting glucose >/= [...] Calcium 9.0 8.5 - 10.3 mg/dL [facility] Phosphorus, pl 6.0(H) 2.3 - 4.5 mg/dL [facility] Albumin 3.3(L) 3.5 - 5.0 g/dL [facility] Blood 01/20/2024 5:08 PM ANNEALER 01/20/2024 5:27 PM ANNEALER Larry Travis MD LAB BLOOD ORDERABLE S Final Result Performing Organization Address City/[facility]/ZIP Co de Phone Number [facility] Department [place] [address] * POCT glucose (01/20/2024 4:51 PM ANNEALER) Glucose, POC 162 70 - 199 mg/dL Blood 01/20/2024 4:51 PM ANNEALER 01/20/2024 4:51 PM ANNEALER Larry Travis MD LAB POCT ORDERABLES - DEVICE Final Result Performing Organization Address City/[facility]/ZIP Co de Phone Number [facility] Department [place] [address] * (ABNORMAL) POC Blood Gas and Chemistries, Arterial - (01/20/2024 4:23 PM ANNEALER) pH, Art POC 7.33(L) 7.35 - 7.45 pCO2, Art POC 54(H) 35 - 45 mmHg [facility] pO2, Art POC 104 83 - 108 mmHg [facility] Na, POC 135 135 - 145 mmol/L [facility] K POC 5.2(H) 3.3 - 4.9 mmol/L [facility] Comment: Interpretive Data Not all point of care methods assess for hemolysis. Confirm with instrument and retest K+ if not consistent with clinical signs and symptoms. Current Interpretive Data was last revised on 2023. Cl, POC 99 97 - 110 mmol/L [facility] Ionized Ca, POC 4.82 4.50 - 5.10 mg/dL [facility] Glucose, POC 171 70 - 199 mg/dL [facility] Lactate, POC 2.6(H) 0.7 - 2.2 mmol/L [facility] SO2 (elvia) arterial 99(H) 90 - 95 % [facility] Base excess, POC 1.9 mmol/L [facility] Hct, POC 30.0(L) 41.4 - 51.6 % [facility] Total Hb, POC 9.9(L) 13.8 - 17.2 g/dL [facility] Blood 01/20/2024 4:23 PM ANNEALER 01/20/2024 4:23 PM ANNEALER Larry Travis MD LAB POCT ORDERABLES - DEVICE Final Result [facility] Department [place] [address] * Transfuse RBC (01/20/2024 4:00 PM ANNEALER) Blood Roscoe Sandhu MD BLOOD TRANSFUSION ORDERABLES F inal Result Performing Organization Address City/[facility]/ZIP Co de Phone Number [facility] [place] [address] * (ABNORMAL) POC Blood Gas and Chemistries, Arterial - (01/20/2024 3:09 PM ANNEALER) [facility] pH, Art POC 7.42 7.35 - 7.45 pCO2, Art POC 47(H) 35 - 45 mmHg [facility] pO2, Art POC 77(L) 83 - 108 mmHg [facility] Na, POC 135 135 - 145 mmol/L [facility] K POC 5.2(H) 3.3 - 4.9 mmol/L [facility] Comment: Interpretive Data Not all point of care methods assess for hemolysis. Confirm with instrument and retest K+ if not consistent with clinical signs and symptoms. Current Interpretive Data was last revised on 2023. Ionized Ca, POC 4.79 4.50 - 5.10 mg/dL [facility] Glucose, POC 134 70 - 199 mg/dL [facility] Lactate, POC 1.5 0.7 - 2.2 mmol/L [facility] SO2 (eliva) arterial 98(H) 90 - 95 % [facility] Base excess, POC 5.3 mmol/L [facility] Hct, POC 29.0(L) 41.4 - 51.6 % [facility] Total Hb, POC 9.8(L) 13.8 - 17.2 g/dL [facility] Blood 01/20/2024 3:09 PM ANNEALER 01/20/2024 3:09 PM ANNEALER Larry Travis MD LAB POCT ORDERABLES - DEVICE Final Result Performing Organization Address [facility]/ZIP Co de Phone Number [facility] [place] [address] * POCT glucose (01/20/2024 2:41 PM ANNEALER) [facility] Glucose, POC 108 70 - 199 mg/dL Blood 01/20/2024 2:41 PM ANNEALER 01/20/2024 2:41 PM ANNEALER Larry Travis MD LAB POCT ORDERABLES - DEVICE Final Result Performing Organization Address City/[facility]/ZIP Co de Phone Number [facility] [place] [address] * Central Venous Line (01/20/2024 2:37 PM ANNEALER) Narrative Elizabeth Castellano MD - 01/20/2024 2:37 PM ANNEALER Elizabeth Castellano MD 01/20/2024 2:38 PM Central [...] Re sult * Airway (01/20/2024 1:37 PM ANNEALER) Narrative Elizabeth Castellano MD - 01/20/2024 1:37 PM ANNEALER Elizabeth Castellano MD 01/20/2024 1:37 PM Airway [...] sult * POCT glucose (01/20/2024 11:12 AM ANNEALER) Glucose, POC 132 70 - 199 mg/dL Blood 01/20/2024 11:1 2 AM ANNEALER 01/20/2024 11:12 AM ANNEALER us Larry Travis MD LAB POCT ORDERABLES - DEVICE Final Result [facility] Department [place] [address] * HLA Donor Specific Antibody Report (01/20/2024 7:31 AM ANNEALER) us Provider Scanning LAB BLOOD ORDERABLES Final Res ult * (ABNORMAL) eGFR (01/20/2024 12:08 AM ANNEALER) eGFR 6(L) >=60 mL/min/1. 73 m2 Comment: [...] reviewed 2020. Blood 01/20/2024 12:0 8 AM ANNEALER 01/20/2024 12:43 AM ANNEALER Larry Travis MD LAB BLOOD ORDERABLE S Final Result Performing Organization Address City/[facility]/ZIP Co de Phone Number [facility] Department [place] [address] * (ABNORMAL) Basic metabolic panel (01/20/2024 12:08 AM ANNEALER) Sodium 140 135 - 145 mmol/L Potassium, pl 4.8 3.3 - 4.9 mmol/L [facility] Chloride 95(L) 97 - 110 mmol/L [facility] CO2 30 22 - 32 mmol/L [facility] Anion gap 15 2 - 15 mmol/L [facility] BUN 55(H) 6 - 25 mg/dL [facility] Creatinine 9.05(H) 0.80 - 1.30 mg/dL [facility] Glucose 129 70 - 199 mg/dL [facility] Comment: Interpretive Data Fasting glucose >/= [...] Calcium 9.7 8.5 - 10.3 mg/dL [facility] Blood 01/20/2024 12:0 8 AM ANNEALER 01/20/2024 12:43 AM ANNEALER Larry Travis MD LAB BLOOD ORDERABLE S Final Result Performing Organization Address City/[facility]/ZIP Co de Phone Number [facility] Department [place] [address] * XR Ankle Right 3 or More Views (01/19/2024 12:37 PM ANNEALER) Anatomical Region Laterality Modality Lower Extremities, Ankle Right Compute d Radiography 01/19/2024 3:28 PM ANNEALER Impressions 01/19/2024 4:08 PM ANNEALER 1. Right leg subcutaneous edema with chronic venous stasis and medial ankle ulcer but no radiographic evidence of osteomyelitis. Dictated by: Liliane Ceja MD, MPH The radiology attending physician has personally reviewed this study, and had reviewed and/or edited this written report and agrees with it. Electronically signed by: Roscoe Tavarez M.D. Narrative 01/19/2024 4:08 PM ANNEALER EXAMINATION: XR TIBIA FIBULA RIGHT2 VIEWS, XR [...] signed by: Roscoe Tavarez M.D. Rosalie Velásquez CONDOMINIUM MANAGER IMG XR PROCEDURES Final Res ult * XR Tibia Fibula Right 2 Views (01/19/2024 12:37 PM ANNEALER) Anatomical Region Laterality Modality Lower Extremities, Lower Leg Right Com puted Radiography 01/19/2024 3:28 PM ANNEALER Impressions 01/19/2024 4:08 PM ANNEALER 1. Right leg subcutaneous edema with chronic venous stasis and medial ankle ulcer but no radiographic evidence of osteomyelitis. Dictated by: Liliane Ceja MD, MPH The radiology attending physician has personally reviewed this study, and had reviewed and/or edited this written report and agrees with it. Electronically signed by: Roscoe Tavarez M.D. Narrative 01/19/2024 4:08 PM ANNEALER EXAMINATION: XR TIBIA FIBULA RIGHT2 VIEWS, XR [...] culture Urine, clean voided (01/19/2024 8:50 AM ANNEALER) Report Final Report: Less than 100,000 colonies/mL (clinically insignificant growth based on current clinical standards) Organism (CLINICALLY INSIGNIFICANT GROWTH [facility] Urine, clean voided 01/19/2024 8:50 AM ANNEALER 01/19/2024 9:48 AM ANNEALER Narrative LINDA [facility] - 01/20/2024 4:21 PM ANNEALER Indications for Culture:->Other (specify) Other Indication:->pre-op Testing performed by [facility] ([phone]) Rosalie Velásquez NP LAB MICROBIOLOGY - GENERAL ORDERABLES Final Result Performing Organization Address [facility] Co de Phone Number [facility] Department [place] [address] * Prepare RBC: 2 Units (01/19/2024 6:31 AM ANNEALER) Product code [id number] Unit Number [id number] [facility] Product Blood Type ONEG [facility] Dispense Status PRESUMED TRANSFUSED LINDA [facility] Product code [id number] LINDA [facility] Unit Number [id number] [facility] Product Blood Type ONEG [facility] Dispense Status PRESUMED TRANSFUSED [facility] Blood 01/19/2024 6:31 AM ANNEALER 01/19/2024 6:30 AM ANNEALER Narrative LINDA [facility] - 01/23/2024 12:55 AM ANNEALER Specify Procedure:->Kidney Transplant Are special requirements needed? (All products are leukoreduced and CMV- safe)- >No Date required:-[id number] LRRBC # of [id number] Reasons:-Hold for procedure (specify procedure)} Larry Travis MD BLOOD BANK PRODUCT ORDERABLES Final Result Performing Organization Address [facility] Co de Phone Number [facility] Department [place] [address] * HLA Crossmatch Report (01/18/2024 11:43 PM ANNEALER) Rosalie Velásquez NP LAB BLOOD ORDERABLES Final Result * HLA Crossmatch, ALLO (01/18/2024 11:43 PM ANNEALER) Blood 01/18/2024 11:4 3 PM ANNEALER 01/20/2024 9:03 AM ANNEALER Narrative [facility] - 01/20/2024 9:03 AM ANNEALER Rosalie Pickeringos CONDOMINIUM MANAGER LAB BLOOD ORDERABLES Final Result [facility] * HLA Antibody Screen by PRA or SAB per Schedule (Class I and Class II) (01/18/2024 11:43 PM ANNEALER) Blood 01/18/2024 11:4 3 PM ANNEALER Narrative [facility] - ANNEALER Sample received in lab. Single Antigen Antibody Screen ordered. Rosalie Pickeringellyn CONDOMINIUM MANAGER LAB BLOOD ORDERABLES Final Result [facility] * HLA Antibody Screen - SAB (Class I and Class II) (01/18/2024 11:43 PM ANNEALER) Class I Treatment EDTA [facility] Class I Dilution 1:1 [facility] Class I Tested Date 01/19/2024 [facility] Class I Result Negative [facility] Class I CPRA 0 [facility] Class II Treatment EDTA [facility] Class II Dilution 1:1 [facility] Class II Tested Date 01/19/2024 [facility] Class II Result Negative [facility] Class II CPRA 0 [facility] Class II Low Risk DR53; DQ2 [facility] 01/18/2024 11:4 3 PM ANNEALER 01/20/2024 7:24 AM ANNEALER Narrative [facility] - 01/20/2024 7:24 AM ANNEALER Single-antigen HLA antibody screen is performed on serum samples using a method developed and validated by the [facility] HLA laboratory based on an FDA-approved IVD kit (LABScreen Single-Antigen, One [employer], [place], [place]). All patient serum samples are pretreated with EDTA before the screen to prevent complement interference. Additional serum treatments, such as adsorption and DTT treatment, may be performed as indicated. Interpretive comments: Low risk: MFI [id number]. Moderate risk: MFI 6911-7628. Increased risk: MFI >/= 5000. The presence [...] antigens to avoid. Testing performed at the [facility], [address] [place] [address], 5th floor, [place], [address]. [facility] # [id number]. Magalis Bean, Ph.D., Tavern Keeper, HLA Laboratory José Miguel Yun M.D., Ph.D., Clean Up Helper Banquet, HLA Laboratory Nessa Marley, Ph.D., [place] Clean Up Helper Banquet, [facility] Current methodology and interpretive comments last revised on 03/27/2022. Rosalie Velásquez NP LAB BLOOD ORDERABLES Final Result Performing Organization Address City/State/[facility] Co de Phone Number [facility] * X-ray chest 1 view (01/18/2024 11:41 PM ANNEALER) Anatomical Region Laterality Modality Body, Chest N/A Digital Radiogra phy 01/19/2024 4:05 AM ANNEALER Impressions 01/19/2024 4:05 AM ANNEALER Comparison is made to prior study of [...] Evan Boothe M.D. Narrative 01/19/2024 4:05 AM ANNEALER EXAMINATION: 1 view chest radiograph Procedure Note [...] unchanged. Electronically signed by: Evan Boothe M.D. Rosalie Velásquez CONDOMINIUM MANAGER IMG XR PROCEDURES Final Res ult * Collection Task for HLA Antibody Screen (01/18/2024 10:50 PM ANNEALER) Pathologist [facility] HLA Antibody Screen by PRA Received Blood 01/18/2024 10:5 0 PM ANNEALER 01/19/2024 9:57 AM ANNEALER us Rosalie Velásquez NP LAB BLOOD ORDERABLES Final Result [facility] Department [place] [address] * (ABNORMAL) eGFR (01/18/2024 10:50 PM ANNEALER) Pathologist [facility] eGFR 9(L) >=60 mL/min/1. 73 m2 Comment: [...] reviewed 2020. Blood 01/18/2024 10:5 0 PM ANNEALER 01/18/2024 11:14 PM ANNEALER us Rosalie Velásquez NP LAB BLOOD ORDERABLES Final Result [facility] Department [place] [address] * Differential, auto (01/18/2024 10:50 PM ANNEALER) Neutrophil abs 5.4 1.5 - 6.5 K/cumm Imm gran abs 0.0 0.0 - 0.1 K/cumm [facility] Lymphocyte abs 1.2 0.8 - 3.3 K/cumm [facility] Monocyte abs 0.6 0.2 - 0.8 K/cumm [facility] Eosinophil abs 0.2 0.0 - 0.5 K/cumm [facility] Basophil abs 0.0 0.0 - 0.1 K/cumm [facility] Neutrophil pct 73.1 % [facility] Comment: Interpretive Data Percent cell count reference ranges are not reported, since discordance with absolute values may lead to misinterpretation of CBC data. Current Interpretive Data was last revised on 2017. Imm gran pct 0.4 % [facility] Comment: Interpretive Data Percent cell count reference ranges are not reported, since discordance with absolute values may lead to misinterpretation of CBC data. Current Interpretive Data was last revised on 2017. Lymphocyte pct 15.7 % [facility] Comment: Interpretive Data Percent cell count reference ranges are not reported, since discordance with absolute values may lead to misinterpretation of CBC data. Current Interpretive Data was last revised on 2017. Monocyte pct 7.4 % [facility] Comment: Interpretive Data Percent cell count reference ranges are not reported, since discordance with absolute values may lead to misinterpretation of CBC data. Current Interpretive Data was last revised on 2017. Eosinophil pct 3.0 % [facility] Comment: Interpretive Data Percent cell count reference ranges are not reported, since discordance with absolute values may lead to misinterpretation of CBC data. Current Interpretive Data was last revised on 2017. Basophil pct 0.4 % [facility] Comment: Interpretive Data Percent cell count reference ranges are not reported, since discordance with absolute values may lead to misinterpretation of CBC data. Current Interpretive Data was last revised on 2017. Blood 01/18/2024 10:5 0 PM ANNEALER 01/18/2024 11:15 PM ANNEALER Rosalie Velásquez CONDOMINIUM MANAGER LAB BLOOD ORDERABLES Final Result Performing Organization Address City/[facility]/ZIP Co de Phone Number [facility] Department [place] [address] * (ABNORMAL) Iron profile w/ IBC (01/18/2024 10:50 PM ANNEALER) [facility] Iron 52 50 - 150 mcg/dL TIBC 162(L) 250 - 400 mcg/dL [facility] Transferrin saturation 32 20 - 50 % [facility] Blood 01/18/2024 10:5 0 PM ANNEALER 01/18/2024 11:14 PM ANNEALER Rosalie Velásquez CONDOMINIUM MANAGER LAB BLOOD ORDERABLES Final Result [facility] [place] [address] * HIV 1/2 Antibody plus p24 Antigen Blood (01/18/2024 10:50 PM ANNEALER) [facility] HIV 1/2 ab + p24 ag Nonreactive Nonreactive Comment:Nonreactive for HIV- 1 antigen and HIV-1/HIV-2 antibodies. No laboratory evidence of HIV infection. If acute HIV infection is suspected, consider testing for HIV-1 RNA. Current interpretive data was last revised on 21. Blood 01/18/2024 10:5 0 PM ANNEALER 01/18/2024 11:15 PM ANNEALER Rosalie Velásquez NP LAB MICROBIOLOGY - GENERAL ORDERABLES Final Result Performing Organization Address City/[facility]/ZIP Co de Phone Number [facility] [place] [address] * (ABNORMAL) CBC with auto differential (01/18/2024 10:50 PM ANNEALER) Pathologist [facility] WBC 7.4 3.8 - 9.9 K/cumm Hgb 10.1(L) 13.0 - 17.5 g/dL [facility] Hct 30.4(L) 38.9 - 50.3 % [facility] Plt 155 150 - 400 K/cumm [facility] MPV 9.5 9.1 - 12.3 fL [facility] RBC 3.05(L) 4.30 - 5.80 M/cumm [facility] MCV 99.7(H) 81.3 - 96.4 fL [facility] MCH 33.1 27.1 - 33.3 pg [facility] MCHC 33.2 32.3 - 35.7 g/dL [facility] RDW CV 14.4 11.1 - 14.9 % [facility] RDW SD 51.3(H) 35.7 - 48.1 fL [facility] NRBC abs 0.00 0.00 - 0.01 K/cumm [facility] Blood 01/18/2024 10:5 0 PM ANNEALER 01/18/2024 11:15 PM ANNEALER Rosalie Velásquez NP LAB BLOOD ORDERABLES Final Result Performing Organization Address City/[facility]/ZIP Co de Phone Number [facility] Department [place] [address] * Hepatitis C antibody Blood (01/18/2024 10:50 PM ANNEALER) Pathologist [facility] Hep C Ab Nonreactive Nonreactive Comment:Antibodies to HCV no t detected. Does NOT exclude the possibility of recent exposure to HCV. Current interpretive data was last revised on 21 Blood 01/18/2024 10:5 0 PM ANNEALER 01/18/2024 11:14 PM ANNEALER Rosalie Velásquez NP LAB MICROBIOLOGY - GENERAL ORDERABLES Final Result Performing Organization Address City/[facility]/ZIP Co de Phone Number [facility] [place] [address] * Hepatitis B core antibody, total Blood (01/18/2024 10:50 PM ANNEALER) [facility] Hep B core IgG/IgM Nonreactive Nonreactive Blood 01/18/2024 10:5 0 PM ANNEALER 01/18/2024 11:14 PM ANNEALER Rosalie Velásquez NP LAB MICROBIOLOGY - GENERAL ORDERABLES Final Result Performing Organization Address City/[facility] Co de Phone Number [facility] [place] [address] * Hepatitis C (HCV) RNA PCR, quantitative Blood (01/18/2024 10:50 PM ANNEALER) [facility] HCV RNA result Not Detected [facility] Comment: The quantifiable range of this assay is 15 IU/mL to 100,000,000 IU/mL (1.18 log IU/mL to 8.00 log IU/mL). Testing was performed by the [facility] 6800 HCV Test ([employer] Testing performed at [facility] Current Interpretive Data was last revised on 2020 Blood 01/18/2024 10:5 0 PM ANNEALER 01/18/2024 11:50 PM ANNEALER Rosalie Velásquez NP LAB MICROBIOLOGY - GENERAL ORDERABLES Final Result Performing Organization Address [facility] [place] [address] [facility] * Hepatitis B surface antibody (immune status) Blood (01/18/2024 10:50 PM ANNEALER) Pathologist [facility] HBsAb (immune status) Reactive Comment:This result is consi stent with immunity to Hepatitis B Virus when used in the setting of routine screening. Current interpretive data was last revised on 21 HBsAb (immune status) index 1,828.0 mIUnits/m L [facility] Blood 01/18/2024 10:5 0 PM ANNEALER 01/18/2024 11:14 PM ANNEALER Rosalie Velásquez NP LAB MICROBIOLOGY - GENERAL ORDERABLES Final Result Performing Organization Address [facility] de Phone Number [facility] [place] [address] * Hepatitis B Surface Antigen Blood (01/18/2024 10:50 PM ANNEALER) [facility] HepBsAg Nonreactive Nonreactive Blood 01/18/2024 10:5 0 PM ANNEALER 01/18/2024 11:14 PM ANNEALER Rosalie Velásquez NP LAB MICROBIOLOGY - GENERAL ORDERABLES Final Result Performing Organization Address [facility] Co de Phone Number [facility] [place] [address] * aPTT (01/18/2024 10:50 PM ANNEALER) [facility] aPTT 31 28 - 38 sec Comment: Interpretive Data Heparin therapeutic range: 66.0 - 100.0 seconds. Range based on correlation with therapeutic heparin activity range of 0.3 - 0.7 Units/mL. Current interpretive data was last revised on 2022. Blood 01/18/2024 10:5 0 PM ANNEALER 01/18/2024 11:17 PM ANNEALER Rosalie Velásquez CONDOMINIUM MANAGER LAB BLOOD ORDERABLES Final Result Performing Organization Address [facility] Co de Phone Number [facility] [place] [address] * Protime-INR (01/18/2024 10:50 PM ANNEALER) PT 11.2 9.7 - 13.0 sec INR 1.04 0.90 - 1.20 [facility] Comment: Interpretive data Oral anticoagulant therapeutic ranges: Venous thromboembolism prophylaxis or treatment: 2.0-3.0 CARDIOLOGY Standard range: 2.0-3.0 High-intensity range: 2.5-3.5 Refer to indication-specific guidelines for appropriate target ranges for prosthetic heart valve replacement. Current interpretive data was last revised on 2019. Blood 01/18/2024 10:5 0 PM ANNEALER 01/18/2024 11:17 PM ANNEALER Rosalie Velásquez NP LAB BLOOD ORDERABLES Final Result Performing Organization Address [facility] de Phone Number [facility] [place] [address] * Type and screen (01/18/2024 10:50 PM ANNEALER) ABO Rh O Negative K[place], indirect Negative [facility] Blood 01/18/2024 10:5 0 PM ANNEALER 01/18/2024 11:13 PM ANNEALER Narrative [facility] - 01/19/2024 12:08 AM ANNEALER Has the patient had Daratumumab or Isatuximab in the past 6 months?->Unknown Rosalie Velásquez NP LAB BLOOD BANK TEST ORDERAB LES Final Result Performing Organization Address [facility] Co de Phone Number [facility] Department [facility] [place] [address] * Uric acid (01/18/2024 10:50 PM ANNEALER) [facility] Uric acid 4.2 3.0 - 8.0 mg/dL Blood 01/18/2024 10:5 0 PM ANNEALER 01/18/2024 11:14 PM ANNEALER Rosalie Velásquez CONDOMINIUM MANAGER LAB BLOOD ORDERABLES Final Result [facility] [place] [facility] [place] [address] * (ABNORMAL) Phosphorus (01/18/2024 10:50 PM ANNEALER) [facility] Phosphorus, pl 6.5(H) 2.3 - 4.5 mg/dL Blood 01/18/2024 10:5 0 PM ANNEALER 01/18/2024 11:14 PM ANNEALER Rosalie Velásquez CONDOMINIUM MANAGER LAB BLOOD ORDERABLES Final Result Performing Organization Address City/[facility] Co de Phone Number [facility] [place] [address] * (ABNORMAL) Hemoglobin A1c (01/18/2024 10:50 PM ANNEALER) [facility] Hgb A1C 6.3(H) 4.0 - 5.6 % Estimated Average Glucose 134 mg/dL [facility] Comment: The ADA recommends reporting an estimated Average Glucose (eAG) with all Hemoglobin A1c results using the equation derived from a study of 507 normal and diabetic adults. Minority populations were underrepresented and children were not included. (Diabetes Care 2020; 43(S1): S66-S76). The eAG is not equivalent to a fasting glucose. Blood 01/18/2024 10:5 0 PM ANNEALER 01/18/2024 11:15 PM ANNEALER Rosalie Velásquez CONDOMINIUM MANAGER LAB BLOOD ORDERABLES Final Result [facility] [place] [address] * (ABNORMAL) Ferritin (01/18/2024 10:50 PM ANNEALER) Ferritin 1,237(H) 30 - 400 ng/mL Blood 01/18/2024 10:5 0 PM ANNEALER 01/18/2024 11:14 PM ANNEALER us Rosalie Velásquez CONDOMINIUM MANAGER LAB BLOOD ORDERABLES Final Result Performing Organization Address [facility] Co de Phone Number [facility] Department [place] [address] * (ABNORMAL) Lipid panel (01/18/2024 10:50 PM ANNEALER) Cholesterol 203(H) 30 - 199 mg/dL Comment: [...] revised on 2017. Triglycerides 208(H) <=149 mg/dL [facility] Comment: Interpretive Data Ages < or [...] revised on 2017. HDL 38(L) >=40 mg/dL [facility] Comment: Interpretive Data Ages < or [...] on 2017. LDL, calculated 128 <=129 mg/dL [facility] Comment: Interpretive Data Ages < [...] revised on 2023. Non-HDL Cholesterol 165 mg/dL [facility] Comment: Interpretive Data Ages < [...] revised on 2017. Chol/HDL ratio 5 [facility] Blood 01/18/2024 10:5 0 PM ANNEALER 01/18/2024 11:14 PM ANNEALER Rosalie Velásquez CONDOMINIUM MANAGER LAB BLOOD ORDERABLES Final Result [facility] Department [place] [address] * (ABNORMAL) Comprehensive metabolic panel (01/18/2024 10:50 PM ANNEALER) Sodium 142 135 - 145 mmol/L Potassium, pl 4.4 3.3 - 4.9 mmol/L [facility] Chloride 96(L) 97 - 110 mmol/L [facility] CO2 31 22 - 32 mmol/L [facility] Anion gap 15 2 - 15 mmol/L [facility] BUN 40(H) 6 - 25 mg/dL [facility] Creatinine 6.70(H) 0.80 - 1.30 mg/dL [facility] Glucose 162 70 - 199 mg/dL [facility] Comment: Interpretive Data Fasting glucose >/= [...] Calcium 10.4(H) 8.5 - 10.3 mg/dL [facility] Bilirubin, total 0.3 0.1 - 1.2 mg/dL [facility] Protein, pl 7.1 6.5 - 8.5 g/dL [facility] Albumin 4.0 3.5 - 5.0 g/dL [facility] Alk phos 187(H) 40 - 130 Units/L [facility] ALT 18 7 - 55 Units/L [facility] AST 23 10 - 50 Units/L [facility] Blood 01/18/2024 10:5 0 PM ANNEALER 01/18/2024 11:14 PM ANNEALER us Rosalie Hargroveir Chrisetn CONDOMINIUM MANAGER LAB BLOOD ORDERABLES Final Result [facility] Department [place] [address] * CT Chest WO Contrast F/U Lung Screen Protocol (01/13/2024 3:25 PM ANNEALER) Anatomical Region Laterality Modality Chest N/A Computed Tomogra phy 01/13/2024 5:28 PM ANNEALER Impressions 01/13/2024 5:28 PM ANNEALER 1. LungRADS Category 2 (benign) S. Recommend Low dose Screening CT of chest in 12 months. 2. 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 Electronically signed by: Evan Boothe M.D. Narrative 01/13/2024 5:28 PM ANNEALER Examination: Low dose chest CT without intravenous [...] do not demonstrate any osseous lesion. Marino Murilloing DO IMG CT PROCEDURES Elsa l Result [...] MD LAB BLOOD ORDERABL ES Final Result [facility] [place] [address] from Last 3 Months or Most Recently Relevant to Health Maintenance Insurance [facility] CHOICE PLUS MEDICARE [employer] SENIOR SUPPLEMENT MEDICARE COMMERCIAL GENERIC MEDICARE [place] MEDIC[place] SUPPLEMENT Member Subscriber Plan / Payer ( fective 2023-) Name:Ramone Coleman Relation to Subscriber:Self Name:Ramone Coleman Payer ID:[id number] Group ID:Not on file Type:COMMERCIAL Address: [place] [id number] MEDICARE [place] MEDICARE SUPPLEMENT Member Subscriber Plan / Payer ( fective 2023-) Name:Ramone Coleman D Relation to Subscriber:Self Name:Ramone Cloeman D Payer ID:[id number] Group ID:Not on file Type:COMMERCIAL Address: [place] [id number] MEDICARE Advance Directives For more information, please contact: [phone] * Full Code (Latest Code Status on [...] 10:20 PM 01/20/2024 7:47 PM Care Teams [employer] Remover Relationship Specialty Start Date End Date Marino Quick DO [address] [place] [address] PCP - General Family Medicine 09/29/23 Aidan Yadav DO [address] [facility] [address] [place] [address] Machine Shop Instructor Cardiology 06/05/20 [place] [address] [place] [address] Urologist Urology 11/05/21 [place] [address] [place] [address] Consulting Physician Interventional Cardiology 01/09/22 Cam Harris MD [address] [place] [address] [address] [place] [id number] Consulting Physician Nephrology 01/07/23 Ayo Abbott MD [address] [place] [address] [address] [place] [address] Electronic Security Technician Dermatology 10/09/23 Kirk Chaparro MD [address] [facility] [address] [place] [address] Surgeon Vascular Surgery 10/13/23 Shama Antunez, RN [address] [facility] [address] [place] [address] Strip Cleaner 01/20/24
[2024-04-19 14:35] LABS: Base Excess ABG -2.4 mmol/L (0-2); Device ROOM AIR; HCO3 ABG 21.8 mmol/L (23-29); Modified Allen's Test Pass; Oxygen Saturation ABG 86.9 % (95-97); Oxyhemoglobin 86.1 % (94-100); PCO2 ABG 34.6 mmHg (35-45); Site Drawn RIGHT RADIAL; pH ABG 7.42 (7.35-7.45)
[2024-04-19] MEDS: IPRATROPIUM 0.5 MG/ALBUTEROL SULFATE 2.5 MG AMPUL.NEB 3 ML INHALATION ×2 (14:35→16:22)
--- OUTSIDE RECORDS SUMMARY | 2024-04-19 14:35 | XMS_ITS | Referral Summary ---
Author Organization [facility] Address [address] [place] [address] Care Team Providers Care Preschool Director Name Role Phone Aidan Yadav DO Unavailable [phone] Jovanna BUTLER MD, Susi Unavailable Frank Martin MD Unavailable [phone] Cam Harris MD Unavailable [phone] Marino Quick DO Primary Care Provider Ayo Abbott MD Unavailable [phone] Kirk Chaparro MD Unavailable [phone] Shama Antunez RN Unavailable [phone] Encounters Date Type Department Care Team Description 04/19/2024 10:20 AM IMPREGNATOR ELECTROLYTIC CAPACITORS Lab [facility] [address] [place] [address] Kidney replaced by transplant; Encounter for long-term (current) use of medications 04/19/2024 Telephone [facility] Transplant Kidney [address] [address] Mailstop [phone] [place] [address] Carolina Ramires 04/06/2024 12:45 PM IMPREGNATOR ELECTROLYTIC CAPACITORS Lab [facility] [address] [place] [address] Encounter for aftercare following kidney transplant 04/06/2024 11:15 AM IMPREGNATOR ELECTROLY[employer]IC CAPACITORS - 04/06/2024 11:59 PM IMPREGNATOR [employer]ACIT[employer] Hospital Encounter [facility] ([facility]) [address] [place] [address] Shortness of breath Discharge Disposition: Discharge to home or self care 04/06/2024 10:00 AM IMPREGNATOR [employer]ACIT[employer] Office Visit [facility] Nephrology [address] [place] [address] [facility] 5th [place] [address] [place] [address] Aurea Fine NP Encounter for aftercare following kidney transplant (Primary Dx); Shortness of breath; 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; Kidney replaced by transplant; Hypertension, unspecified type 04/06/2024 1:00 PM IMPREGNATOR [employer]ACIT[employer] Office Visit [facility] Cardiology [address] [place] [address] Advanced Medicine 8th [place] [address] [place] [address] Marian Merino MD Coronary artery disease involving crow coronary artery of crow heart without angina pectoris (Primary Dx); Paroxysmal atrial fibrillation (CMS/HCC) (HCC); Abnormal stress test; Essential hypertension; Mixed hyperlipidemia; ORIANA (obstructive sleep apnea) 03/24/2024 [facility] [address] [place] [address] [address] [facility] [place] [address] Gamaliel Evans MD 03/22/2024 8:57 AM IMPREGNATOR ELECTROLY[employer]IC CAPACITORS - 03/22/2024 11:59 PM IMPREGNATOR E[employer]ROL[employer]IC [employer]ACITORS Hospital Encounter [facility]iology [facility] [address] [place] [address] Perinephric fluid collection Discharge Disposition: Discharge to home or self care 03/17/2024 Telephone [facility] Cardiology [address] [place] [address] 8th [place] [address] [place] [address] Marian Merino MD 03/17/2024 Telephone [facility]iology 1 [facility] [place] [address] Augusta Melara, SAURAV 03/16/2024 Telephone [facility] Cardiology [address] [facility] 8th [place] [address] [place] [phone] Marian Merino MD 03/10/2024 Orders Only [facility] Transplant Kidney [address] [facility] [address] Mailstop [phone] [place] [address] Shama Antuenz, SAURAV 03/10/2024 8:10 AM IMPREGNATOR ELECTROLYTIC CAPACITORS Lab [facility] ([facility]) [address] [place] [address] Kidney replaced by transplant 03/10/2024 10:00 AM IMPREGNATOR [employer]ACIT[employer] Office Visit [facility] Radiology, Interventional Radiology [address] [facility] [address] [phone] Sue Hood PA Kidney replaced by transplant (Primary Dx); Central venous catheter in place 03/10/2024 8:40 AM IMPREGNATOR [employer]ACIT[employer] Office Visit [facility] ([facility]) - [facility] Urology [address] [facility] 11th [place] [address] [place] [address] Roscoe Peck MD Encounter for removal of ureteral stent (Primary Dx) 03/08/2024 Home Care Visit [facility] - [address] [place] [phone] Dayton Tate, SAURAV SN VIRTUAL OASIS DISCHARGE 03/08/2024 Telephone [facility] Radiology, Interventional Radiology [address] [facility] [address] [phone] Clarissa Juares, SAURAV Appointment 03/08/2024 Telephone [facility] Transplant Kidney [address] [facility] [address] Mailstop [phone] [place] [address] Shama Antunez, SAURAV 03/08/2024 Orders Only [facility] Transplant Kidney [address] [facility] [address] Mailstop [phone] [place] [address] Shama Antunez RN Kidney replaced by transplant (Primary Dx) 03/08/2024 8:44 AM IMPREGNATOR [employer]ACITORS - 03/08/2024 11:59 PM IMPREGNATOR [employer]ACITORS Hospital En[facility] [address] [place] [address] Perinephric fluid collection Discharge Disposition: Discharge to home or self care 03/08/2024 11:31 AM IMPREGNATOR [employer]ACITORS - 03/08/2024 11:59 PM IMPREGNATOR [employer]ACIT[employer] Hospital Encounter [facility] [address] [place] [address] Discharge Disposition: Discharge to home or self care 03/08/2024 11:30 AM IMPREGNATOR [employer]ACITORS - 03/08/2024 11:59 PM IMPREGNATOR [employer]ACITORS Hospital Encounter [facility] ([facility]) [address] [place] [address] Discharge Disposition: Discharge to home or self care 03/08/2024 11:30 AM IMPREGNATOR [employer]ACITORS - 03/08/2024 11:59 PM IMPREGNATOR [employer]ACIT[employer] Hospital Encounter [facility] ([facility]) [address] [place] [address] Coronary artery disease involving crow coronary artery of crow heart without angina pectoris Discharge Disposition: Discharge to home or self care 03/07/2024 Telephone [facility]iology 1 [place] [address] Tiffanie Milton RN 03/07/2024 9:15 AM IMPREGNATOR [employer]ACITORS Telemedicine [facility] Nephrology [address] [place] [address] for Advanced Medicine 5th [place] [address] [place] [address] Grey Boland MD 03/04/2024 Telephone [facility]iology 1 [place] [address] Kirstin Soto, SAURAV 03/04/2024 Telephone [facility] 1 [place] [address] Kirstin Soto, SAURAV 03/03/2024 9:40 AM IMPREGNATOR [employer]ACITORS - 03/03/2024 11:59 PM IMPREGNATOR [employer]ACIT[employer] Hospital Encounter [address] [address] Discharge Disposition: Discharge to home or self care 03/03/2024 Home Care Visit [address] [place] [address] Maria T Staley, RN TELEPHONE ENCOUNTER 03/03/2024 5:30 AM IMP[employer]ATOR [employer]IT[employer] Home Care Visit [address] [place] [address] Cele Mccallum SN HOME VISIT 03/01/2024 8:00 AM IMPREGNATOR [employer]ACIT[employer] - 03/01/2024 11:59 PM IMPREGNATOR E[employer]ROL[employer]ACITORS Hospital Encounter [address] [address] Discharge Disposition: Discharge to home or self care 03/01/2024 7:30 AM IMP[employer]NATOR [employer]ACIT[employer] Home Care Visit [address] [place] [address] Dayton Tate RN SN HOME VISIT 02/29/2024 Orders Only [facility] Transplant Kidney [address] [facility] [address] Mailstop [phone] [place] [address] Shama Antunez, SAURAV 02/29/2024 Orders Only [facility] Transplant Kidney [address] [facility] [address] Mail[address] [phone] [place] [address] Shama Antunez, SAURAV 02/26/2024 Telephone [facility]iology 1 [place] [address] Tiffanie Milton RN 02/26/2024 Orders Only [facility]iology 1 [place] [address] Tiffanie Milton RN 02/25/2024 Plan of Care Documentation [address] [place] [address] 02/25/2024 Telephone [facility] Transplant Kidney [address] [facility] [address] Mailstop [phone] [place] [address] Zechariah Pabonia 02/25/2024 1:00 PM IMPREG[employer]ATOR [employer] Home Care Visit [address] [place] [address] Dayton Tate, SAURAV SN OASIS RESUMPTION OF CARE 02/21/2024 12:09 PM IMPREGNATOR [employer]IC [employer]ACITORS - 02/23/2024 2:28 PM IMPREGNATOR E[employer]ROL[employer]IC [employer]ACITORS Hospital Encounter [address] [address] Renetta Jones MD PhD Darshan Beach MD PhD Perinephric fluid collection (Primary Dx) Discharge Disposition: Discharge to home, home health skilled care 02/21/2024 Home Care Visit [address] [place] [address] Dayton Tate, SAURAV SN OASIS TRANSFER W/OUT DC 02/21/2024 Orders Only [facility]iology 1 [place] [address] Ruth Mehta, SAURAV 02/20/2024 Telephone [facility] Transplant Kidney [address] [facility] [address] Mailstop [phone] [place] [address] Julia Javier, SAURAV After Hours 02/19/2024 Telephone [facility] Transplant Kidney [address] [facility] [address] Mailstop [phone] [place] [address] Shama Antunez, SAURAV 02/19/2024 8:00 AM IMPREGNATOR [employer] Home Care Visit [address] [place] [address] Dayton Tate, SAURAV SN HOME VISIT 02/18/2024 Telephone [facility] Transplant Kidney [address] [facility] [address] Mailstop [phone] [place] [address] Shama Antunez RN 02/17/2024 Orders Only [facility] Surgery [address] [facility] 12th [place] [address] [place] [address] Monster Harding MD 02/17/2024 Telephone Radiology 1 [place] [address] Ayo Sharpe MD PhD 02/17/2024 Orders Only [facility] [place] [address] Susi Nuñez PA Abdominal fluid collection (Primary Dx) 02/17/2024 Telephone [facility] Transplant Kidney [address] [facility] [address] Mailstop [phone] [place] [address] Shama Antunez RN 02/17/2024 11:30 AM IMPREGNATOR ELECTROLYTIC CAPACITORS Lab [facility] Advanced [facility] ([facility]) [address] [place] [address] Kidney replaced by transplant 02/17/2024 10:11 AM IMPREGNATOR ELECTROLYTIC [employer]ACITORS - 02/17/2024 11:59 PM IMPREGNATOR E[employer]ROL[employer]ACITORS Hospital Encounter [facility] ([facility]) [address] [place] [address] Ayush Galvez MD Swelling abdomen Discharge Disposition: Discharge to home or self care 02/17/2024 4:00 PM IMPREGNATOR [employer]ACITORS Office Visit [facility] Cardiology [address] [facility] Advanced Medicine 8th [place] [address] [place] [address] Marian Merino MD Coronary artery disease involving crow coronary artery of crow heart without angina pectoris (Primary Dx); Atrial fibrillation, unspecified type (HCC); Essential hypertension; Mixed hyperlipidemia; Abnormal echocardiogram 02/17/2024 9:40 AM IMPREGNATOR E[employer]ACITORS Office Visit [facility] ([facility]) - [facility] Urology [address] [facility] Advanced Medicine 11th [place] [address] [place] [address] Darshan Noriega MD -donor kidney transplant recipient (Primary Dx); Encounter for removal of ureteral stent 02/16/2024 Orders Only [facility] Transplant Kidney [address] [facility] [address] Mailstop [phone] [place] [address] Carolina Ramires Kidney replaced by transplant (Primary Dx); Encounter for long-term (current) use of medications; Hyperlipidemia, unspecified hyperlipidemia type 02/16/2024 Telephone [facility] Transplant Kidney [address] [facility] [address] Mailstop [phone] [place] [address] Shama Antunez RN 02/16/2024 Telephone [facility] Transplant Kidney [address] [facility] [address] Mailstop 60-12-575 [place] [address] Shama Antunez RN 02/16/2024 Telephone [facility] Transplant Kidney [address] [facility] [address] Mailstop [phone] [place] [address] Shama Antunez, SAURAV 02/16/2024 Telephone [facility] Transplant Kidney [address] [facility] [address] Mailstop [phone] [place] [address] Shama Antunez RN 02/16/2024 8:15 AM IMPREGNATOR [employer]IT[employer] Home Care Visit [address] [place] [address] Dayton Tate RN SN HOME VISIT 02/11/2024 9:00 AM IMPREGNATOR E[employer]ROLY[employer]IC [employer]ACITORS - 02/11/2024 11:59 PM IMPREGNATOR ELECTROLY[employer]IC [employer]ACITORS Hospital Encounter [address] [address] Discharge Disposition: Discharge to home or self care 02/11/2024 8:30 AM IMPREGNATOR [employer]ACIT[employer] Home Care Visit [address] [place] [address] Dayton Tate, SAURAV SN HOME VISIT 02/09/2024 Telephone [facility] Transplant Kidney [address] [facility] [address] Mailstop [phone] [place] [address] Mervat Yeung, SAURAV After Hours 02/09/2024 Telephone [facility] Transplant Kidney [address] [facility] [address] Mailstop [phone] [place] [address] Shama Antunez, SAURAV 02/09/2024 2:40 PM IMPREGNATOR [employer]IC [employer]ACITORS - 02/09/2024 11:59 PM IMPREGNATOR ELECTROL[employer]IC [employer]ACITORS Hospital Encounter [facility]) [address] [place] [address] Kidney transplanted Discharge Disposition: Discharge to home or self care 02/09/2024 Telephone [facility] Transplant Kidney [address] [facility] [address] Mailstop 04-07-298 [place] [address] Shama Antunez RN 02/09/2024 9:00 AM IMPREGNATOR E[employer]ROLYTIC CAPACITORS - 02/09/2024 11:59 PM IMPREGNATOR E[employer]ROL[employer]TIC [employer]ACITORS Hospital Encounter [address] [address] Kidney transplanted Discharge Disposition: Discharge to home or self care 02/09/2024 Home Care Visit [address] [place] [address] Tanya Savage, PT CASE COMMUNICATION 02/09/2024 8:30 AM IMPREGNATOR [employer]ITORS Home Care Visit [address] [place] [address] Dayton Tate, SAURAV SN HOME VISIT 02/09/2024 2:45 PM IMPREGNATOR [employer]ACITORS Office Visit [facility] Nephrology [address] [facility] 5th [place] [address] [place] [address] Aurea Fine NP 02/09/2024 1:00 PM IMPREGNATOR [employer]ACITORS Office Visit [facility] Surgery [address] [facility] 12th [place] [address] [place] [address] Aurea Hameed PA Kidney transplanted (Primary Dx) 02/08/2024 2:00 PM IMPREGNATOR [employer]ACITORS Clinical Support [facility] [address] [phone] Type 2 diabetes mellitus with chronic kidney disease on chronic dialysis, with long-term current use of insulin (HCC) (Primary Dx) 02/08/2024 Telephone [facility] Transplant Kidney [address] [facility] [address] Mailstop [phone] [place] [address] Shama Antunez RN 02/08/2024 3:15 PM IMPREGNATOR [employer]ACITORS Office Visit [facility] [address] [place] [phone] Gamaliel Evans MD Type 2 diabetes mellitus with chronic kidney disease on chronic dialysis, with long-term current use of insulin (HCC) (Primary Dx); Primary hypothyroidism; Mixed hyperlipidemia; Coronary artery disease involving crow coronary artery of crow heart without angina pectoris; -donor kidney transplant recipient; Atrial fibrillation, unspecified type (HCC) 02/05/2024 Telephone [facility] Transplant Kidney [address] [facility] [address] Mailstop 55-19-911 [place] [address] Shama Antunez RN 02/04/2024 10:00 AM IMPREGNATOR E[employer]ROLY[employer]IC [employer]ACITORS - 02/04/2024 11:59 PM IMPREGNATOR [employer]IC [employer]ACITORS Hospital Encounter [facility] [address] [address] Discharge Disposition: Discharge to home or self care 02/04/2024 1:45 PM IMPREGNATOR [employer]ACIT[employer] Home Care [address] [address] [address] [place] [address] Tanya Savage, PT PT INITIAL EVALUATION 02/04/2024 8:00 AM IMPREGNATOR [employer]ACITORS Home Care Visit [address] [place] [address] Galilea Noguera, SAURAV SN HOME VISIT 02/03/2024 Telephone [facility] Transplant Kidney [address] [facility] [address] Mailstop [phone] [place] [address] Shama Antunez RN 02/03/2024 Orders Only [facility] Transplant Kidney [address] [facility] [address] Mailstop [phone] [place] [address] Shama Antunez, SAURAV Kidney replaced by transplant (Primary Dx) 02/02/2024 9:00 AM IMPREGNATOR E[employer]ROLY[employer]ACITORS - 02/02/2024 11:59 PM IMPREGNATOR E[employer]ROL[employer]IC [employer]ACITORS Hospital Encounter [facility] [address] [place] [address] Discharge Disposition: Discharge to home or self care 02/02/2024 Plan of Care Documentation [address] [address] [address] [place] [address] 02/02/2024 Telephone [facility] Transplant Kidney [address] [facility] [address] Mailstop 11-49-087 [place] [address] Shama Antunez RN 02/02/2024 9:30 AM IMP[employer]ATOR [employer]IT[employer] Home Care Visit [address] [address] [address] [place] [address] Dayton Tate RN SN OASIS START OF CARE 02/01/2024 Telephone [facility] Transplant Kidney [address] [facility] [address] Mailstop 88-77-031 [place] [address] Sofia Tineo 01/18/2024 10:11 PM IMPREGNATOR E[employer]ACITORS - 01/28/2024 7:20 PM IMPREGNATOR E[employer]ROL[employer]IC [employer]ACITORS Hospital Encounter [facility] 1 [place] [address] Larry Travis MD Wellen, Jason Reid, MD -donor kidney transplant recipient (Primary Dx); Steroid-induced hyperglycemia; Coronary artery disease involving crow coronary artery of crow heart without angina pectoris; Atrial fibrillation, unspecified type (HCC) Discharge Disposition: Discharge to home, home health skilled care 01/26/2024 Orders Only [facility] Transplant Kidney [address] [facility] [address] Mailstop 51-18-470 [place] [address] Michelle Bowman RN 01/22/2024 Orders Only [facility] Transplant Kidney [address] [facility] [address] Mailstop [phone] [place] [address] Milly Polanco laboratory evidence of human immunodeficiency virus (HIV) (Primary Dx); Aftercare following organ transplant; History of kidney transplant 01/22/2024 Telephone [facility] Cardiology [address] [facility] 8th [place] [address] [place] [address] Ebony Juárez 01/22/2024 Telephone [facility] Transplant Kidney [address] [facility] [address] Mailstop 33-38-187 [place] [address] Carolyn Siddiqui 01/22/2024 10:05 AM IMPREGNATOR E[employer]ACITORS - 01/22/2024 12:25 PM IMPREGNATOR [employer]IT[employer] Surgery [facility] Operating Room 1 [place] [address] Ayush Galvez MD RE-EXPLORATION KIDNEY TRANSPLANT 01/22/2024 9:13 AM IMPREGNATOR [employer]ACITORS Anesthesia Event [facility] Operating Room 1 [place] [address] Mathieu Beaver MD Jablonski, Melody A., NP 01/21/2024 Telephone [facility] Transplant Kidney [address] [facility] [address] Mailstop [phone] [place] [address] Lynne Davies RN Waitlist Maintenance 01/21/2024 Documentation [facility] Transplant Kidney [address] [facility] [address] Mailstop [phone] [place] [address] Savanna aMbry 01/20/2024 Telephone [facility] Transplant Kidney [address] [facility] [address] Mailstop [phone] [place] [address] Mirian Villanueva RN Waitlist Maintenance (/) 01/20/2024 Orders Only [facility] Transplant Kidney [address] [facility] [address] Mailstop -[phone] [place] [address] Michelle Bowman RN 01/20/2024 12:47 PM IMPREGNATOR [employer]ACITORS Anesthesia Event [facility] Operating Room 1 [place] [address] Roscoe Sandhu MD Nizam, Rasheeq Rahman, MD 01/20/2024 11:50 AM IMPREGNATOR E[employer]IC [employer]ACITORS - 01/20/2024 4:55 PM IMPREGNATOR [employer]ACITORS Surgery [facility] Operating Room 1 [place] [address] Ayush Galvez MD TRANSPLANT KIDNEY UNOS:[id number] OPO:[id number] [[id number]] 01/19/2024 Documentation [facility] [address] [facility] [address] [place] [address] Jess Strauss [facility] 01/18/2024 Orders Only [facility] 1 [place] [address] Arya Dolan MD 01/18/2024 Telephone [facility] Transplant Kidney [address] [facility] [address] Mailstop [phone] [place] [address] Mervat Yeung, RN Organ Offer Follow-up 01/18/2024 Telephone [facility] Transplant Kidney [address] [facility] [address] Mailstop -[phone] [place] [address] Mervat Yeung, mill dresser Organ Offer 01/18/2024 Orders Only [facility] Transplant Liver [address] [facility] [address] Mailstop -[phone] [place] [address] Rosalie Velásquez NP from Last 3 Months [...] blood glucose diagnostic stripIndications :-donor kidney transplant recipient,[facility] d-induced hyperglycemia 1 strip QID with [...] different from the original. Discharge Planning: Pharmacy: [facility] - [id number] in [place], [place] Specialty: [facility] Specialty Program Labs: [facility] Q-WEEKLY, FK; Q-MONTHLY BK; Q-3 ROUTINE (Exp 08/16/24) HH: [facility] Verbal Consent: Jonathan (spouse), Ramone (son), Liz ([id number]) Problem Noted Date Diagnosed Date Perinephric fluid collection 02/21/2024 Atrial fibrillation ([facility]) 02/08/2024 Overview (02/08/2024): Per cardiology Chronic [...] (01/07/2022): Added automatically from request for surgery [id number] Left knee pain 08/08/2021 Primary hypothyroidism 08/08/2021 Cellulitis of right lower extremity 05/02/2021 Coronary artery disease invo lving crow heart without angina pectoris 10/25/2020 Overview (10/25/2020): Added automatically from request for surgery [id number] Diabetes mellitus 06/12/2020 Mixed hyperlipidemia 06/12/2020 Assessment & Plan (10/15/2023 11:31 AM CDT): Hyperlipidemia chronic controlled. Continue current medical management. Lower extremity edema 07/07/2018 Hyperkalemia 03/15/2018 Volume overload 03/15/2018 Anemia in stage 5 chronic ki dney disease, not on chronic dialysis 03/15/2018 ESRD (end stage renal disease) ([facility]) 018 Overview (01/25/2018): Added automatically from request for surgery [id number] Assessment & Plan (10/15/2023 11:28 AM CDT): End-stage renal disease. Continue dialysis pending renal transplant. LOLLY (renal osteodystrophy) 09/28/2017 Metabolic acidosis 09/28/2017 Essential hypertension 09/28/2017 Anemia in stage 4 chronic kidney disease 018 Stage 5 chronic kidney disease ([facility]) 018 Overview (03/10/2024): Added automatically from request for surgery [id number] Chronic renal failure, stage 4 (severe) ([facility] ) 06/15/2017 Chronic renal insufficiency, stage [...] Trivalent, IM (MDV) 11/08/2012 Influenza, Unspecified 12/26/2020 [employer] ([employer]) SARS-CoV-2 Vaccination 04/30/2020 Pneumococcal Conjugate PCV [...] materials from doctor or pharmacy Never 03/08/2024 [facility] Utilities Answer Date Recorded In the past 12 months has th e [place], gas, oil, or water [employer] threatened to shut off services in your [...] often do you attend chur ch or sabianism services? Never 02/22/2024 Do you belong to any clubs o r organizations such as religion groups, unions, fraternal or athletic groups, or [...] place to sleep or slept in a longterm (including now)? No 03/25/2023 Housing Stability Vital [...] in the past 12 m [facility], were you homeless or living in a longterm (including now)? No 02/22/2024 Personal Safety Answer [...] on file Legal Sex Male 3:24 AM [employer] Gender Identity Male 11/30/2017 3:03 PM CDT Sexual Orientation Straight 06/05/2020 6: 53 AM CDT Last Filed Vital Signs Vital Sign Reading Time Taken Comments Blood Pressure 127/67 04/06/2024 12:54 PM [employer] Pulse 74 04/06/2024 12:54 PM [employer] Temperature 36.6 C (97.8 F) 04/06/2024 10:21 AM [employer] Respiratory Rate 16 03/22/2024 10:08 AM [employer] Oxygen Saturation 94% 04/06/2024 12:54 PM [employer] Inhaled Oxygen Concentration - - Weight 117.9 kg (260 lb) 04/06/2024 12:54 PM [employer] Height 190.5 cm (6' 3 ) 04/06/2024 12:54 PM [employer] Body Mass Index 32.5 04/06/2024 12:54 PM [employer] Plan of Treatment Not on file Medical Devices Implanted Type Area Family Advocate Device Identifier Shelf Expiration Date Model / Serial / Lot RankingHero Angio-Seal Vip 6fr Closere Device [id number] - [id number] Implanted:Qty: 1 on 07/30/2023 by Chino Saleh MD at [facility] Other - see comments [employer] 04/01/2024 [id number] / / [id number] Stents-02/05/2007 Implanted:Qty: 2 on 02/05/2007 N/A: Heart Description:x2 [employer] 73-2623 Sternalock Uday 8 Hole Sternum Plate Bone 2.4 Mm Screw - [id number] Implanted:Qty: 3 on 11/26/2020 by Carmen Aparicio MD at [facility] N/A: Sternum [employer] 73-2623 / / [employer] 73-2416 Sternalock Uday 2.4mm 16mm Self Drill Lock Sternum Cancellous - [id number] Implanted:Qty: 16 on 11/26/2020 by Carmen Aparicio MD at [facility] N/A: Sternum [employer] 73-2416 / / [employer] 73-2418 Sternalock Uday 2.4mm 18mm Self Drill Lock Sternum Cancellous - [id number] Implanted:Qty: 4 on 11/26/2020 by Carmen Aparicio MD at [facility] N/A: Sternum [employer] 73-2418 / / [employer] 73-2420 Sternalock Uday 2.4mm 20mm Self Drill Lock Sternum Cancellous - [id number] Implanted:Qty: 4 on 11/26/2020 by Carmen Aparicio MD at [facility] N/A: Sternum [employer] 73-1500 / / Explanted Type Area Family Advocate Device Identifier Shelf Expiration Date Model / Serial / Lot [employer] Stent Ureteral Set Double Pigtail Radiopaque Tip [employer] [id number] Polyurethane Hydrophilic Coated [id number] - [id number] Implanted:Qty: 1 on 01/20/2024 by Ayush Galvez MD at [facility] Explanted:Qty: 1 on 03/10/2024 by Roscoe Peck MD Stent Right: Transplanted Ureter [employer] [id number] 10/25/2026 [id number] / / [id number] Procedures Procedure Name Priority Date/Time Associated Diagnosis Comments EGFR Routine 04/19/2024 10:42 AM [employer] Kidney replaced by transplant DIFFERENTIAL AUTO Routine 04/19/2024 10:42 AM [employer] Kidney replaced by transplant CBC WITH AUTO DIFFERENTIAL Routine 04/19/2024 10:42 AM [employer] Kidney replaced by transplant RENAL FUNCTION PANEL Routine 04/19/2024 10:42 AM [employer] Kidney replaced by transplant TACROLIMUS LEVEL, TROUGH Routine 04/19/2024 10:42 AM [employer] Kidney replaced by transplant Encounter for long-term (current) use of medications DIFFERENTIAL AUTO Routine 04/06/2024 11:42 AM [employer] Encounter for aftercare following kidney transplant CBC WITH AUTO DIFFERENTIAL Routine 04/06/2024 11:42 AM [employer] Encounter for aftercare following kidney transplant RESPIRATORY PATHOGEN PANEL Routine 04/06/2024 11:41 AM [employer] Encounter for aftercare following kidney transplant XR CHEST PA LATERAL 2 VIEWS Schedule Routine, Read Routine (OP Routine) 04/06/2024 11:28 AM [employer] Shortness of breath POCT URINALYSIS DIPSTICK Routine 04/06/2024 10:35 AM [employer] Encounter for aftercare following kidney transplant BK VIRUS, DNA, QUANTITATIVE Routine 04/05/2024 9:00 AM [employer] Kidney replaced by transplant TACROLIMUS LEVEL, TROUGH Routine 04/05/2024 8:59 AM [employer] Kidney replaced by transplant Encounter for long-term (current) use of medications RENAL FUNCTION PANEL Routine 04/05/2024 8:58 AM [employer] Kidney replaced by transplant RENAL FUNCTION PANEL Routine 04/05/2024 8:57 AM [employer] Kidney replaced by transplant BK VIRUS, DNA, QUANTITATIVE Routine 03/29/2024 11:28 AM [employer] Kidney replaced by transplant TACROLIMUS LEVEL, TROUGH Routine 03/29/2024 11:27 AM [employer] Kidney replaced by transplant Encounter for long-term (current) use of medications CBC WITH AUTO DIFFERENTIAL Routine 03/29/2024 11:26 AM [employer] Kidney replaced by transplant RENAL FUNCTION PANEL Routine 03/29/2024 11:25 AM [employer] Kidney replaced by transplant BK VIRUS, DNA, QUANTITATIVE Routine 03/23/2024 12:07 PM [employer] Kidney replaced by transplant TACROLIMUS LEVEL, TROUGH Routine 03/23/2024 12:06 PM [employer] Kidney replaced by transplant Encounter for long-term (current) use of medications CBC WITH AUTO DIFFERENTIAL Routine 03/23/2024 12:05 PM [employer] Kidney replaced by transplant RENAL FUNCTION PANEL Routine 03/23/2024 12:04 PM [employer] Kidney replaced by transplant ABSCESS CATHETER INJECTION Schedule Routine, Read Routine (OP Routine) 03/22/2024 10:05 AM [employer] Perinephric fluid collection LIPID PANEL Routine 03/15/2024 9:49 AM [employer] Kidney replaced by transplant Hyperlipidemia, unspecified hyperlipidemia type HEPATIC FUNCTION PANEL Routine 03/15/2024 9:48 AM [employer] Kidney replaced by transplant BK VIRUS, DNA, QUANTITATIVE Routine 03/15/2024 9:48 AM [employer] Kidney replaced by transplant TACROLIMUS LEVEL, TROUGH Routine 03/15/2024 9:47 AM [employer] Kidney replaced by transplant Encounter for long-term (current) use of medications CBC WITH AUTO DIFFERENTIAL Routine 03/15/2024 9:47 AM [employer] Kidney replaced by transplant RENAL FUNCTION PANEL Routine 03/15/2024 9:46 AM [employer] Kidney replaced by transplant POCT URINALYSIS DIPSTICK Routine 03/10/2024 8:47 AM [employer] Encounter for removal of ureteral stent EGFR Routine 03/10/2024 8:21 AM [employer] Kidney replaced by transplant DIFFERENTIAL AUTO Routine 03/10/2024 8:2 1 AM [employer] Kidney replaced by transplant RENAL FUNCTION PANEL Routine 03/10/2024 8:21 AM [employer] Kidney replaced by transplant CBC WITH AUTO DIFFERENTIAL Routine 03/10/2024 8:21 AM [employer] Kidney replaced by transplant TACROLIMUS LEVEL, RANDOM Routine 03/10/2024 8:21 AM [employer] Kidney replaced by transplant MAGNESIUM Routine 03/10/2024 8:21 AM [employer] Kidney replaced by transplant BK VIRUS PCR QUANTITATIVE Routine 03/10/2024 8:21 AM [employer] Kidney replaced by transplant PET STRESS TEST Schedule Routine, Read Routine (OP Routine) 03/08/2024 3:12 PM [employer] Coronary artery disease involving crow coronary artery of crow heart without angina pectoris PET/CT MYOCARDIAL PERFUSION IMAGING (MULTIPLE) Schedule Routine, Read Routine (OP Routine) 03/08/2024 3:12 PM [employer] Coronary artery disease involving crow coronary artery of crow heart without angina pectoris ABSCESS CATHETER INJECTION Schedule Routine, Read Routine (OP Routine) 03/08/2024 11:02 AM [employer] Perinephric fluid collection EGFR STAT 03/03/2024 9:40 AM [employer] DIFFERENTIAL AUTO STAT 03/03/2024 9:4 0 AM [employer] TACROLIMUS LEVEL, TROUGH STAT 03/03/2024 9:40 AM [employer] MAGNESIUM STAT 03/03/2024 9:40 AM [employer] CBC WITH AUTO DIFFERENTIAL STAT 03/03/2024 9:40 AM [employer] RENAL FUNCTION PANEL STAT 03/03/2024 9:40 AM [employer] EGFR Routine 03/01/2024 8:00 AM [employer] RENAL FUNCTION PANEL Routine 03/01/2024 8:00 AM [employer] DIFFERENTIAL AUTO Routine 03/01/2024 8:0 0 AM [employer] TACROLIMUS LEVEL, TROUGH Routine 03/01/2024 8:00 AM [employer] MAGNESIUM Routine 03/01/2024 8:00 AM [employer] CBC WITH AUTO DIFFERENTIAL Routine 03/01/2024 8:00 AM [employer] HEPATIC FUNCTION PANEL Routine 02/26/2024 8:59 AM [employer] Kidney replaced by transplant LIPID PANEL Routine 02/26/2024 8:59 AM [employer] Kidney replaced by transplant Hyperlipidemia, unspecified hyperlipidemia type TACROLIMUS LEVEL, TROUGH Routine 02/26/2024 8:59 AM [employer] Kidney replaced by transplant Encounter for long-term (current) use of medications RENAL FUNCTION PANEL Routine 02/26/2024 8:59 AM [employer] Kidney replaced by transplant CBC WITH AUTO DIFFERENTIAL Routine 02/26/2024 8:59 AM [employer] Kidney replaced by transplant BK VIRUS, DNA, QUANTITATIVE Routine 02/26/2024 8:59 AM [employer] Kidney replaced by transplant POCT GLUCOSE DEVICE Routine 02/23/2024 11:43 AM [employer] POCT GLUCOSE DEVICE Routine 02/23/2024 8 :21 AM [employer] POTASSIUM, WHOLE BLOOD STAT 02/23/2024 6:38 AM [employer] ECG 12-LEAD STAT 02/23/2024 6:30 AM [employer] CT ABDOMEN PELVIS WO CONTRAST IP Routine 02/23/2024 5:21 AM [employer] EGFR Routine 02/23/2024 4:37 AM [employer] DIFFERENTIAL AUTO Routine 02/23/2024 4:3 7 AM [employer] RENAL FUNCTION PANEL Routine 02/23/2024 4:37 AM [employer] CBC WITH AUTO DIFFERENTIAL Routine 02/23/2024 4:37 AM [employer] MAGNESIUM Routine 02/23/2024 4:37 AM [employer] TACROLIMUS LEVEL, TROUGH Routine 02/23/2024 4:37 AM [employer] POCT GLUCOSE DEVICE Routine 02/22/2024 9 :35 PM [employer] POCT GLUCOSE DEVICE Routine 02/22/2024 5 :37 PM [employer] CELL DIFFERENTIAL, BODY FLUID Routine 02/22/2024 2:26 PM [employer] CELL DIFFERENTIAL, BODY FLUID Routine 02/22/2024 2:26 PM [employer] CELL COUNT W/REFLEX DIFFERENTIAL, BODY FLUID Routine 02/22/2024 2:26 PM [employer] CREATININE, BODY FLUID Routine 02/22/2024 2:26 PM [employer] CELL COUNT W/REFLEX DIFFERENTIAL, BODY FLUID Routine 02/22/2024 2:26 PM [employer] AEROBIC AND ANAEROBIC CULTURE AND GRAM STAIN Routine 02/22/2024 2:26 PM [employer] AEROBIC AND ANAEROBIC CULTURE AND GRAM STAIN Routine 02/22/2024 2:26 PM [employer] CREATININE, BODY FLUID Routine 02/22/2024 2:19 PM [employer] POCT GLUCOSE DEVICE Routine 02/22/2024 1 :48 PM [employer] FLUID DRAIN SOFT TISSUE IP Routine 02/22/2024 1:14 PM [employer] CELL DIFFERENTIAL, BODY FLUID Routine 02/22/2024 12:50 PM [employer] CELL COUNT W/REFLEX DIFFERENTIAL, BODY FLUID Routine 02/22/2024 12:50 PM [employer] CREATININE, BODY FLUID Routine 02/22/2024 12:50 PM [employer] POCT GLUCOSE DEVICE Routine 02/22/2024 6 :27 AM [employer] POTASSIUM, WHOLE BLOOD STAT 02/22/2024 6:27 AM [employer] EGFR Routine 02/22/2024 4:38 AM [employer] DIFFERENTIAL AUTO Routine 02/22/2024 4:3 8 AM [employer] RENAL FUNCTION PANEL Routine 02/22/2024 4:38 AM [employer] CBC WITH AUTO DIFFERENTIAL Routine 02/22/2024 4:38 AM [employer] MAGNESIUM Routine 02/22/2024 4:38 AM [employer] TACROLIMUS LEVEL, TROUGH Routine 02/22/2024 4:38 AM [employer] POCT GLUCOSE DEVICE Routine 02/21/2024 8 :49 PM [employer] POCT GLUCOSE DEVICE Routine 02/21/2024 5 :26 PM [employer] POCT GLUCOSE DEVICE Routine 02/21/2024 2 :08 PM [employer] EGFR STAT 02/21/2024 2:06 PM [employer] DIFFERENTIAL AUTO STAT 02/21/2024 2:0 6 PM [employer] RENAL FUNCTION PANEL STAT 02/21/2024 2:06 PM [employer] PROTIME-INR STAT 02/21/2024 2:06 PM [employer] MAGNESIUM STAT 02/21/2024 2:06 PM [employer] CBC WITH AUTO DIFFERENTIAL STAT 02/21/2024 2:06 PM [employer] ECG 12-LEAD Routine 02/17/2024 4:29 PM [employer] Atrial fibrillation, unspecified type (HCC) CT ABDOMEN PELVIS WO CONTRAST Urgent 02/17/2024 11:48 AM [employer] Swelling abdomen EGFR Routine 02/17/2024 10:25 AM [employer] Kidney replaced by transplant DIFFERENTIAL AUTO Routine 02/17/2024 10:25 AM [employer] Kidney replaced by transplant RENAL FUNCTION PANEL Routine 02/17/2024 10:25 AM [employer] Kidney replaced by transplant TACROLIMUS LEVEL, RANDOM Routine 02/17/2024 10:25 AM [employer] Kidney replaced by transplant MAGNESIUM Routine 02/17/2024 10:25 AM [employer] Kidney replaced by transplant CBC WITH AUTO DIFFERENTIAL Routine 02/17/2024 10:25 AM [employer] Kidney replaced by transplant HEPATITIS B DNA, QUANTITATIVE, PCR Routine 02/17/2024 10:25 AM [employer] Kidney replaced by transplant HEPATITIS C RNA, QUANTITATIVE, PCR Routine 02/17/2024 10:25 AM [employer] Kidney replaced by transplant HIV-1 RNA, QUANTITATIVE, PCR Routine 02/17/2024 10:25 AM [employer] Kidney replaced by transplant EGFR STAT 02/11/2024 9:00 AM [employer] DIFFERENTIAL AUTO STAT 02/11/2024 9:0 0 AM [employer] TACROLIMUS LEVEL, TROUGH STAT 02/11/2024 9:00 AM [employer] MAGNESIUM STAT 02/11/2024 9:00 AM [employer] CBC WITH AUTO DIFFERENTIAL STAT 02/11/2024 9:00 AM [employer] RENAL FUNCTION PANEL STAT 02/11/2024 9:00 AM [employer] CT ABDOMEN PELVIS WO CONTRAST Schedule Routine, Read Routine (OP Routine) 02/09/2024 3:42 PM [employer] Kidney transplanted CREATININE, BODY FLUID Routine 02/09/2024 3:29 PM [employer] Kidney transplanted EGFR Routine 02/09/2024 9:00 AM [employer] DIFFERENTIAL AUTO Routine 02/09/2024 9:0 0 AM [employer] TACROLIMUS LEVEL, TROUGH Routine 02/09/2024 9:00 AM [employer] MAGNESIUM Routine 02/09/2024 9:00 AM [employer] CBC WITH AUTO DIFFERENTIAL Routine 02/09/2024 9:00 AM [employer] RENAL FUNCTION PANEL Routine 02/09/2024 9:00 AM [employer] EGFR STAT 02/04/2024 8:52 AM [employer] DIFFERENTIAL AUTO STAT 02/04/2024 8:5 2 AM [employer] TACROLIMUS LEVEL, TROUGH STAT 02/04/2024 8:52 AM [employer] CREATININE, BODY FLUID STAT 02/04/2024 8:52 AM [employer] MAGNESIUM STAT 02/04/2024 8:52 AM [employer] CBC WITH AUTO DIFFERENTIAL STAT 02/04/2024 8:52 AM [employer] RENAL FUNCTION PANEL STAT 02/04/2024 8:52 AM [employer] EGFR Routine 02/02/2024 9:00 AM [employer] DIFFERENTIAL AUTO Routine 02/02/2024 9:0 0 AM [employer] TACROLIMUS LEVEL, TROUGH Routine 02/02/2024 9:00 AM [employer] MAGNESIUM Routine 02/02/2024 9:00 AM [employer] CBC WITH AUTO DIFFERENTIAL Routine 02/02/2024 9:00 AM [employer] RENAL FUNCTION PANEL Routine 02/02/2024 9:00 AM [employer] POCT GLUCOSE DEVICE Routine 01/28/2024 5 :58 PM [employer] POCT GLUCOSE DEVICE Routine 01/28/2024 12:47 PM [employer] POCT GLUCOSE DEVICE Routine 01/28/2024 8 :44 AM [employer] EGFR Routine 01/28/2024 4:15 AM [employer] DIFFERENTIAL AUTO Routine 01/28/2024 4:1 5 AM [employer] TACROLIMUS LEVEL, TROUGH Routine 01/28/2024 4:15 AM [employer] MAGNESIUM Routine 01/28/2024 4:15 AM [employer] RENAL FUNCTION PANEL Routine 01/28/2024 4:15 AM [employer] CBC WITH AUTO DIFFERENTIAL Routine 01/28/2024 4:15 AM [employer] POCT GLUCOSE DEVICE Routine 01/27/2024 9 :07 PM [employer] POCT GLUCOSE DEVICE Routine 01/27/2024 5 :55 PM [employer] ECG 12-LEAD Routine 01/27/2024 3:35 PM [employer] POCT GLUCOSE DEVICE Routine 01/27/2024 12:24 PM [employer] EGFR Routine 01/27/2024 4:17 AM [employer] DIFFERENTIAL AUTO Routine 01/27/2024 4:1 7 AM [employer] TACROLIMUS LEVEL, TROUGH Routine 01/27/2024 4:17 AM [employer] MAGNESIUM Routine 01/27/2024 4:17 AM [employer] RENAL FUNCTION PANEL Routine 01/27/2024 4:17 AM [employer] CBC WITH AUTO DIFFERENTIAL Routine 01/27/2024 4:17 AM [employer] POCT GLUCOSE DEVICE Routine 01/26/2024 7 :59 PM [employer] POCT GLUCOSE DEVICE Routine 01/26/2024 5 :15 PM [employer] POCT GLUCOSE DEVICE Routine 01/26/2024 1 :48 PM [employer] HEMODIALYSIS Routine 01/26/2024 12:43 PM [employer] POCT GLUCOSE DEVICE Routine 01/26/2024 12:06 PM [employer] TRANSFUSE RED BLOOD CELLS Timed 01/26/2024 9:00 AM [employer] POCT GLUCOSE DEVICE Routine 01/26/2024 8 :25 AM [employer] TYPE AND SCREEN Timed 01/26/2024 6:19 AM [employer] PREPARE RBC Timed 01/26/2024 5:41 AM [employer] EGFR Routine 01/26/2024 4:39 AM [employer] DIFFERENTIAL AUTO Routine 01/26/2024 4:3 9 AM [employer] TACROLIMUS LEVEL, TROUGH Routine 01/26/2024 4:39 AM [employer] MAGNESIUM Routine 01/26/2024 4:39 AM [employer] RENAL FUNCTION PANEL Routine 01/26/2024 4:39 AM [employer] CBC WITH AUTO DIFFERENTIAL Routine 01/26/2024 4:39 AM [employer] POCT GLUCOSE DEVICE Routine 01/25/2024 9 :33 PM [employer] TROPONIN I HIGH-SENSITIVITY 6-HOUR Timed 01/25/2024 7:51 PM [employer] TROPONIN I HIGH-SENSITIVITY 4-HOUR Timed 01/25/2024 6:00 PM [employer] POCT GLUCOSE DEVICE Routine 01/25/2024 5 :49 PM [employer] TROPONIN I HIGH-SENSITIVITY 2-HOUR Timed 01/25/2024 3:44 PM [employer] XR CHEST 1 VIEW ED Urgent/IP Urgent 01/25/2024 2:52 PM [employer] CBC WITHOUT DIFFERENTIAL STAT 01/25/2024 2:42 PM [employer] TROPONIN I HIGH-SENSITIVITY STAT 01/25/2024 2:05 PM [employer] CRITICAL RESULT CALLBACK CARDIO CHEM Routine 01/25/2024 1:46 PM [employer] TROPONIN I HIGH-SENSITIVITY SERIES (BASELINE, 2HR, 4HR, 6HR) Routine 01/25/2024 1:46 PM [employer] ECG 12-LEAD STAT 01/25/2024 1:31 PM [employer] CREATININE, BODY FLUID Routine 01/25/2024 1:15 PM [employer] POCT GLUCOSE DEVICE Routine 01/25/2024 12:46 PM [employer] POCT GLUCOSE DEVICE Routine 01/25/2024 11:13 AM [employer] CENTRAL LINE PLACEMENT > 5 YEARS IP Routine 01/25/2024 10:26 AM [employer] POCT GLUCOSE DEVICE Routine 01/25/2024 7 :40 AM [employer] DIFFERENTIAL AUTO Routine 01/25/2024 5:0 7 AM [employer] EGFR Routine 01/25/2024 5:07 AM [employer] TACROLIMUS LEVEL, TROUGH Routine 01/25/2024 5:07 AM [employer] MAGNESIUM Routine 01/25/2024 5:07 AM [employer] RENAL FUNCTION PANEL Routine 01/25/2024 5:07 AM [employer] CBC WITH AUTO DIFFERENTIAL Routine 01/25/2024 5:07 AM [employer] POCT GLUCOSE DEVICE Routine 01/24/2024 8 :58 PM [employer] POCT GLUCOSE DEVICE Routine 01/24/2024 4 :57 PM [employer] POCT GLUCOSE DEVICE Routine 01/24/2024 11:41 AM [employer] POCT GLUCOSE DEVICE Routine 01/24/2024 7 :32 AM [employer] DIFFERENTIAL AUTO Routine 01/24/2024 5:0 6 AM [employer] EGFR Routine 01/24/2024 5:06 AM [employer] TACROLIMUS LEVEL, TROUGH Routine 01/24/2024 5:06 AM [employer] MAGNESIUM Routine 01/24/2024 5:06 AM [employer] RENAL FUNCTION PANEL Routine 01/24/2024 5:06 AM [employer] CBC WITH AUTO DIFFERENTIAL Routine 01/24/2024 5:06 AM [employer] POCT GLUCOSE DEVICE Routine 01/23/2024 9 :19 PM [employer] POCT GLUCOSE DEVICE Routine 01/23/2024 5 :44 PM [employer] POCT GLUCOSE DEVICE Routine 01/23/2024 12:11 PM [employer] HEMODIALYSIS Routine 01/23/2024 8:43 AM [employer] POCT GLUCOSE DEVICE Routine 01/23/2024 8 :18 AM [employer] TROPONIN I HIGH-SENSITIVITY Routine 01/23/2024 6:12 AM [employer] CBC WITH AUTO DIFFERENTIAL Routine 01/23/2024 2:42 AM [employer] EGFR Routine 01/23/2024 2:42 AM [employer] DIFFERENTIAL AUTO Routine 01/23/2024 2:4 2 AM [employer] TACROLIMUS LEVEL, TROUGH Routine 01/23/2024 2:42 AM [employer] MAGNESIUM Routine 01/23/2024 2:42 AM [employer] RENAL FUNCTION PANEL Routine 01/23/2024 2:42 AM [employer] TROPONIN I HIGH-SENSITIVITY Routine 01/23/2024 2:41 AM [employer] ECG 12-LEAD STAT 01/23/2024 1:02 AM [employer] DIFFERENTIAL AUTO Routine 01/22/2024 11:14 PM [employer] TROPONIN I HIGH-SENSITIVITY Routine 01/22/2024 11:14 PM [employer] TROPONIN I HIGH-SENSITIVITY Routine 01/22/2024 11:14 PM [employer] TYPE AND SCREEN Timed 01/22/2024 11:14 PM [employer] TACROLIMUS LEVEL, TROUGH Routine 01/22/2024 11:14 PM [employer] CBC WITH AUTO DIFFERENTIAL Routine 01/22/2024 11:14 PM [employer] XR CHEST 1 VIEW ED Urgent/IP Urgent 01/22/2024 8:41 PM [employer] POCT GLUCOSE DEVICE Routine 01/22/2024 8 :07 PM [employer] POCT GLUCOSE DEVICE Routine 01/22/2024 6 :42 PM [employer] TROPONIN I HIGH-SENSITIVITY 6-HOUR Timed 01/22/2024 6:40 PM [employer] TRANSFUSE RED BLOOD CELLS Timed 01/22/2024 6:15 PM [employer] TRANSTHORACIC ECHO (TTE) COMPLETE W DOPPLER/CF W CONTRAST STAT 01/22/2024 5:31 PM [employer] TYPE AND SCREEN Timed 01/22/2024 4:14 PM [employer] TROPONIN I HIGH-SENSITIVITY 4-HOUR Timed 01/22/2024 4:14 PM [employer] ECG 12-LEAD STAT 01/22/2024 3:39 PM [employer] CBC WITHOUT DIFFERENTIAL STAT 01/22/2024 2:07 PM [employer] ECG 12-LEAD Routine 01/22/2024 12:59 PM [employer] CRITICAL RESULT CALLBACK CARDIO CHEM Routine 01/22/2024 12:18 PM [employer] EGFR STAT 01/22/2024 12:18 PM [employer] TROPONIN I HIGH-SENSITIVITY SERIES (BASELINE, 2HR, 4HR, 6HR) Routine 01/22/2024 12:18 PM [employer] PHOSPHORUS STAT 01/22/2024 12:18 PM [employer] MAGNESIUM STAT 01/22/2024 12:18 PM [employer] BASIC METABOLIC PANEL STAT 01/22/2024 12:18 PM [employer] POCT GLUCOSE DEVICE Routine 01/22/2024 11:35 AM [employer] XR ABDOMEN AP 1 VIEW IP Routine 01/22/2024 10:29 AM [employer] MN AN PROCEDURE PLACEHOLDER Routine 01/22/2024 9:42 AM [employer] MN AN ELECTIVE ENDOTRACHEAL AIRWAY Routine 01/22/2024 9:42 AM [employer] RE-EXPLORATION KIDNEY TRANSPLANT 01/22/2024 9:18 AM [employer] -donor kidney transplant recipient Case Notes 01/20@0855- Ace Bennett via phone call dos 01/21 kristal time sensitive - DMF EGFR STAT 01/22/2024 9:02 AM [employer] BASIC METABOLIC PANEL STAT 01/22/2024 9:02 AM [employer] POCT GLUCOSE DEVICE Routine 01/22/2024 9 :01 AM [employer] POCT GLUCOSE DEVICE Routine 01/22/2024 8 :26 AM [employer] LACTATE DEHYDROGENASE Routine 01/22/2024 4:58 AM [employer] HAPTOGLOBIN Routine 01/22/2024 4:58 AM [employer] EGFR Routine 01/22/2024 4:58 AM [employer] DIFFERENTIAL AUTO Routine 01/22/2024 4:5 8 AM [employer] TACROLIMUS LEVEL, TROUGH Routine 01/22/2024 4:58 AM [employer] MAGNESIUM Routine 01/22/2024 4:58 AM [employer] RENAL FUNCTION PANEL Routine 01/22/2024 4:58 AM [employer] CBC WITH AUTO DIFFERENTIAL Routine 01/22/2024 4:58 AM [employer] POCT GLUCOSE DEVICE Routine 01/21/2024 8 :34 PM [employer] POCT GLUCOSE DEVICE Routine 01/21/2024 6:37 PM [employer] POTASSIUM, WHOLE BLOOD STAT 01/21/2024 4:22 PM [employer] CBC WITHOUT DIFFERENTIAL STAT 01/21/2024 1:51 PM [employer] POCT GLUCOSE DEVICE Routine 01/21/2024 12:26 PM [employer] MN AN PROCEDURE PLACEHOLDER Routine 01/21/2024 10:41 AM [employer] HEMODIALYSIS Routine 01/21/2024 9:39 AM [employer] POTASSIUM LEVEL Timed 01/21/2024 8:39 AM [employer] POCT GLUCOSE DEVICE Routine 01/21/2024 8 :10 AM [employer] POCT GLUCOSE DEVICE Routine 01/21/2024 6 :47 AM [employer] POCT GLUCOSE DEVICE Routine 01/21/2024 5 :46 AM [employer] POTASSIUM, WHOLE BLOOD STAT 01/21/2024 5:22 AM [employer] ECG 12-LEAD STAT 01/21/2024 5:17 AM [employer] EGFR Routine 01/21/2024 4:18 AM [employer] CRITICAL RESULT CALLBACK CHEMISTRY Routine 01/21/2024 4:18 AM [employer] DIFFERENTIAL AUTO Routine 01/21/2024 4:1 8 AM [employer] TACROLIMUS LEVEL, TROUGH Routine 01/21/2024 4:18 AM [employer] MAGNESIUM Routine 01/21/2024 4:18 AM [employer] RENAL FUNCTION PANEL Routine 01/21/2024 4:18 AM [employer] CBC WITH AUTO DIFFERENTIAL Routine 01/21/2024 4:18 AM [employer] US RENAL TRANSPLANT W DOPPLERS ED Urgent/IP Urgent 01/20/2024 11:24 PM [employer] POCT GLUCOSE DEVICE Routine 01/20/2024 8 :56 PM [employer] XR CHEST 1 VIEW ED Urgent/IP Urgent 01/20/2024 5:58 PM [employer] EGFR STAT 01/20/2024 5:08 PM [employer] RENAL FUNCTION PANEL STAT 01/20/2024 5:08 PM [employer] CBC WITHOUT DIFFERENTIAL STAT 01/20/2024 5:08 PM [employer] POCT GLUCOSE DEVICE Routine 01/20/2024 4 :51 PM [employer] POC BLOOD GAS AND CHEMISTRIES, ARTERIAL Routine 01/20/2024 4:23 PM [employer] TRANSFUSE RED BLOOD CELLS Timed 01/20/2024 3:54 PM [employer] POC BLOOD GAS AND CHEMISTRIES, ARTERIAL Routine 01/20/2024 3:09 PM [employer] POCT GLUCOSE DEVICE Routine 01/20/2024 2 :41 PM [employer] ANESTHESIA CENTRAL VENOUS LINE PLACEMENT Routine 01/20/2024 2:37 PM [employer] ANESTHESIA INTUBATION Routine 01/20/2024 1:37 PM [employer] TRANSPLANT KIDNEY 01/20/2024 12:46 PM [employer] ESRD (end stage renal disease) ([facility]/HCC) ([facility]) Case Notes ORT TIME: TBDUNOS#[id number] ID#: [id number] Group:OTransplant Coordinator: Mervat [phone] POCT GLUCOSE DEVICE Routine 01/20/2024 11:12 AM [employer] HLA DONOR SPECIFIC ANTIBODY REPORT 01/20/2024 7:31 AM [employer] EGFR Routine 01/20/2024 12:08 AM [employer] BASIC METABOLIC PANEL Routine 01/20/2024 12:08 AM [employer] HEMODIALYSIS Routine 01/19/2024 6:44 PM [employer] XR ANKLE RIGHT 3 OR MORE VIEWS IP Routine 01/19/2024 12:37 PM [employer] XR TIBIA FIBULA RIGHT2 VIEWS IP Routine 01/19/2024 12:37 PM [employer] URINE CULTURE Routine 01/19/2024 8:50 AM [employer] PREPARE RBC Timed 01/19/2024 6:31 AM [employer] HLA CROSSMATCH REPORT 01/18/2024 11:43 PM [employer] HLA ANTIBODY SCREEN - SAB (CLASS I AND CLASS II) Routine 01/18/2024 11:43 PM [employer] HLA CROSSMATCH, ALLO STAT 01/18/2024 11:43 PM [employer] HLA ANTIBODY SCREEN BY PRA OR SAB PER SCHEDULE (CLASS I AND CLASS II) STAT 01/18/2024 11:43 PM [employer] XR CHEST 1 VIEW ED Urgent/IP Urgent 01/18/2024 11:41 PM [employer] EGFR STAT 01/18/2024 10:50 PM [employer] DIFFERENTIAL AUTO STAT 01/18/2024 10:50 PM [employer] HLA ANTIBODY SCREEN BY PRA STAT 01/18/2024 10:50 PM [employer] IRON PROFILE W/ IBC Routine 01/18/2024 10:50 PM [employer] LIPID PANEL Routine 01/18/2024 10:50 PM [employer] URIC ACID Routine 01/18/2024 10:50 PM [employer] HEMOGLOBIN A1C Routine 01/18/2024 10:50 PM [employer] FERRITIN Routine 01/18/2024 10:50 PM [employer] TYPE AND SCREEN STAT 01/18/2024 10:50 PM [employer] PHOSPHORUS STAT 01/18/2024 10:50 PM [employer] PROTIME-INR STAT 01/18/2024 10:50 PM [employer] COMPREHENSIVE METABOLIC PANEL STAT 01/18/2024 10:50 PM [employer] CBC WITH AUTO DIFFERENTIAL STAT 01/18/2024 10:50 PM [employer] APTT STAT 01/18/2024 10:50 PM [employer] HIV 1/2 ANTIBODY PLUS P24 ANTIGEN Routine 01/18/2024 10:50 PM [employer] HEPATITIS C RNA, QUANTITATIVE, PCR Routine 01/18/2024 10:50 PM [employer] HEPATITIS C ANTIBODY Routine 01/18/2024 10:50 PM [employer] HEPATITIS B SURFACE ANTIGEN Routine 01/18/2024 10:50 PM [employer] HEPATITIS B SURFACE ANTIBODY (IMMUNE STATUS) Routine 01/18/2024 10:50 PM [employer] HEPATITIS B CORE ANTIBODY, TOTAL Routine 01/18/2024 10:50 PM IMPREGNATOR E[employer]ACIT[employer] CT CHEST WO CONTRAST F/U LUNG SCREEN PROTOCOL Schedule Routine, Read Routine (OP Routine) 01/13/2024 3:25 PM [employer] Abnormal CT lung screening PSA SCREEN Routine 09/17/2023 7:43 AM CDT ESRD (end stage renal disease) (CMS/HCC) (HCC) Pre-transplant evaluation for kidney transplant from Last 3 Months or Most Recently Relevant to Health Maintenance Results * (ABNORMAL) eGFR (04/19/2024 10:42 AM [employer]) eGFR 24(L) >=60 mL/min/1. 73 m2 Comment: [...] reviewed 2020. Blood 04/19/2024 10:4 2 AM [employer] 04/19/2024 11:14 AM [employer] us Jack Morrison MD LAB BLOOD ORDERABLES Final R esult [facility] Department [place] [address] * (ABNORMAL) Differential, auto (04/19/2024 10:42 AM [employer]) Neutrophil abs 13.1(H) 1.5 - 6.5 K/cumm Imm gran abs 0.9(H) 0.0 - 0.1 K/cumm [facility] Lymphocyte abs 0.3(L) 0.8 - 3.3 [facility] Monocyte abs 0.6 0.2 - 0.8 K/cumm [facility] Eosinophil abs 0.0 0.0 - 0.5 K/cumm [facility] Basophil abs 0.1 0.0 - 0.1 K/cumm [facility] Neutrophil pct 87.8 % [facility] Comment: Interpretive Data Percent cell count reference ranges are not reported, since discordance with absolute values may lead to misinterpretation of CBC data. Current Interpretive Data was last revised on 2017. Imm gran pct 5.8 % [facility] Comment: Interpretive Data Percent cell count reference ranges are not reported, since discordance with absolute values may lead to misinterpretation of CBC data. Current Interpretive Data was last revised on 2017. Lymphocyte pct 1.8 % [facility] Comment: Interpretive Data Percent cell count reference ranges are not reported, since discordance with absolute values may lead to misinterpretation of CBC data. Current Interpretive Data was last revised on 2017. Monocyte pct 4.0 % [facility] Comment: Interpretive Data Percent cell count reference ranges are not reported, since discordance with absolute values may lead to misinterpretation of CBC data. Current Interpretive Data was last revised on 2017. Eosinophil pct 0.1 % [facility] Comment: Interpretive Data Percent cell count reference ranges are not reported, since discordance with absolute values may lead to misinterpretation of CBC data. Current Interpretive Data was last revised on 2017. Basophil pct 0.5 % [facility] Comment: Interpretive Data Percent cell count reference ranges are not reported, since discordance with absolute values may lead to misinterpretation of CBC data. Current Interpretive Data was last revised on 2017. Blood 04/19/2024 10:4 2 AM [employer] 04/19/2024 11:14 AM [employer] Jack Morrison MD LAB BLOOD ORDERABLES Final R esult Performing Organization Address [facility] Co de Phone Number [facility] [place] [address] * Tacrolimus level trough (04/19/2024 10:42 AM IMP[employer]IT[employer]) Tacrolimus trough 7.7 ng/mL Comment: Interpretive Data Testing performed by liquid chromatography-tandem mass spectrometry. Therapeutic concentrations vary depending on type of transplanted organ and time elapsed since transplant. Typical trough concentrations range from 5-15 ng/mL. This test was developed and its performance characteristics determined by the [facility] consistent with CLIA requirements. This test has not been cleared or approved by the [place] Food and Drug administration. Current interpretive data last reviewed 2019. Blood 04/19/2024 10:4 2 AM [employer] 04/19/2024 11:14 AM [employer] Jack Morrison MD LAB BLOOD ORDERABLES Final R esult Performing Organization Address [facility] Co de Phone Number [facility] Department [place] [address] * (ABNORMAL) CBC with auto differential (04/19/2024 10:42 AM [employer]) WBC 14.9(H) 3.8 - 9.9 K/cumm Hgb 11.6(L) 13.0 - 17.5 g/dL [facility] Hct 35.5(L) 38.9 - 50.3 % [facility] Plt 281 150 - 400 K/cumm [facility] MPV 10.2 9.1 - 12.3 fL [facility] RBC 3.79(L) 4.30 - 5.80 M/cumm [facility] MCV 93.7 81.3 - 96.4 fL [facility] MCH 30.6 27.1 - 33.3 pg [facility] MCHC 32.7 32.3 - 35.7 g/dL [facility] RDW CV 13.5 11.1 - 14.9 % [facility] RDW SD 45.1 35.7 - 48.1 fL [facility] NRBC abs 0.00 0.00 - 0.01 K/cumm [facility] Blood 04/19/2024 10:4 2 AM [employer] 04/19/2024 11:14 AM [employer] Jack Morrison MD LAB BLOOD ORDERABLES Final R esult [facility] Department [place] [address] * (ABNORMAL) Renal function panel (04/19/2024 10:42 AM [employer]) Sodium 138 135 - 145 mmol/L Potassium, pl 4.7 3.3 - 4.9 mmol/L [facility] Chloride 99 97 - 110 mmol/L [facility] CO2 29 22 - 32 mmol/L [facility] Anion gap 10 2 - 15 mmol/L [facility] BUN 38(H) 6 - 25 mg/dL [facility] Creatinine 2.80(H) 0.80 - 1.30 mg/dL [facility] Glucose 125 70 - 199 mg/dL [facility] Comment: Interpretive Data Fasting glucose >/= 126 [...] 2022. Calcium 10.7(H) 8.5 - 10.3 mg/dL [facility] Phosphorus, pl 2.5 2.3 - 4.5 mg/dL [facility] Albumin 3.9 3.5 - 5.0 g/dL [facility] Blood 04/19/2024 10:4 2 AM [employer] 04/19/2024 11:14 AM [employer] us Jack Morrison MD LAB BLOOD ORDERABLES Final R esult [facility] Department [place] [address] * (ABNORMAL) Differential, auto (04/06/2024 11:42 AM [employer]) Neutrophil abs 9.1(H) 1.5 - 6.5 K/cumm Imm gran abs 0.7(H) 0.0 - 0.1 K/cumm [facility] Lymphocyte abs 0.2(L) 0.8 - 3.3 K/cumm [facility] Monocyte abs 0.5 0.2 - 0.8 K/cumm [facility] Eosinophil abs 0.0 0.0 - 0.5 K/cumm [facility] Basophil abs 0.0 0.0 - 0.1 K/cumm [facility] Neutrophil pct 86.6 % [facility] Comment: Interpretive Data Percent cell count reference ranges are not reported, since discordance with absolute values may lead to misinterpretation of CBC data. Current Interpretive Data was last revised on 2017. Imm gran pct 6.5 % [facility] Comment: Interpretive Data Percent cell count reference ranges are not reported, since discordance with absolute values may lead to misinterpretation of CBC data. Current Interpretive Data was last revised on 2017. Lymphocyte pct 1.4 % [facility] Comment: Interpretive Data Percent cell count reference ranges are not reported, since discordance with absolute values may lead to misinterpretation of CBC data. Current Interpretive Data was last revised on 2017. Monocyte pct 4.9 % [facility] Comment: Interpretive Data Percent cell count reference ranges are not reported, since discordance with absolute values may lead to misinterpretation of CBC data. Current Interpretive Data was last revised on 2017. Eosinophil pct 0.3 % [facility] Comment: Interpretive Data Percent cell count reference ranges are not reported, since discordance with absolute values may lead to misinterpretation of CBC data. Current Interpretive Data was last revised on 2017. Basophil pct 0.3 % [facility] Comment: Interpretive Data Percent cell count reference ranges are not reported, since discordance with absolute values may lead to misinterpretation of CBC data. Current Interpretive Data was last revised on 2017. Blood 04/06/2024 11:4 2 AM [employer] 04/06/2024 11:58 AM [employer] A[employer]a [employer] LAB BLOOD ORDERABLES Final Result [facility] Department [place] [address] * (ABNORMAL) CBC with auto differential (04/06/2024 11:42 AM [employer]) WBC 10.5(H) 3.8 - 9.9 K/cumm Hgb 11.5(L) 13.0 - 17.5 g/dL [facility] Hct 34.3(L) 38.9 - 50.3 % [facility] Plt 251 150 - 400 K/cumm [facility] MPV 10.1 9.1 - 12.3 fL [facility] RBC 3.60(L) 4.30 - 5.80 M/cumm [facility] MCV 95.3 81.3 - 96.4 fL [facility] MCH 31.9 27.1 - 33.3 pg [facility] MCHC 33.5 32.3 - 35.7 g/dL [facility] RDW CV 12.8 11.1 - 14.9 % [facility] RDW SD 44.4 35.7 - 48.1 fL [facility] NRBC abs 0.00 0.00 - 0.01 K/cumm [facility] Blood 04/06/2024 11:4 2 AM [employer] 04/06/2024 11:58 AM [employer] Aurea Fine TRANSPORTER RADIOLOGY LAB BLOOD ORDERABLES Final Result Performing Organization Address City/State/[facility] Co de Phone Number [facility] Department [place] [address] * (ABNORMAL) Respiratory pathogen panel Nasopharyngeal (04/06/2024 11:41 AM IMP[employer]) Pathologist [facility] Influenza A RNA Not Detected Not Detected Influenza B RNA Not Detected Not Detected [facility] RSV RNA Not Detected Not Detected [facility] COVID-19 RNA Not Detected Not Detected [facility] Coronavirus 229E RNA Not Detected Not Detected [facility] Coronavirus HKU1 RNA Not Detected Not Detected [facility] Coronavirus NL63 RNA Not Detected Not Detected [facility] Coronavirus OC43 RNA Not Detected Not Detected [facility] Adenovirus DNA Not Detected Not Detected [facility] Metapneumovirus RNA Not Detected Not Detected [facility] Rhinovirus/Enterov irus RNA Detected(A) Not Detected [facility] Parainfluenza 1 RNA Not Detected Not Detected [facility] Parainfluenza 2 RNA Not Detected Not Detected [facility] Parainfluenza 3 RNA Not Detected Not Detected [facility] Parainfluenza 4 RNA Not Detected Not Detected [facility] B. pertussis DNA Not Detected Not Detected [facility] B. parapertussis DNA Not Detected Not Detected [facility] C. pneumoniae DNA Not Detected Not Detected [facility] M. pneumoniae DNA Not Detected Not Detected [facility] Nasopharyngeal 04/06/2024 11 :41 AM [employer] 04/06/2024 12:10 PM [employer] Narrative [facility] - 04/06/2024 1:15 PM [employer] Is the Patient experiencing symptoms consistent with COVID?->Unknown Surveillance testing for transplant patient?->No Interpretive Data The [employer] FilmArray Respiratory Panel (RP2.1) assay is a [...] assay has FDA clearance for testing of [facility] swabs. The performance of additional specimen types has been assessed by the performing laboratory. The performance characteristics of this assay have been determined by [facility]. Current interpretive data was last revised on 21. Aurea Fine [facility]Y LAB MICROBIOLOGY - GENERAL ORDERABLES Final Result [facility] Department [place] [address] * XR Chest PA Lateral 2 Views (04/06/2024 11:28 AM [employer]) Anatomical Region Laterality Modality Body, Chest N/A Computed Radiogr aphy 04/06/2024 11:4 3 AM [employer] Impressions 04/06/2024 6:32 PM [employer] FINDINGS/IMPRESSION: Sternotomy plates and wires overlie the chest. Lungs are clear. No pleural effusion or pneumothorax. Cardiac mediastinal silhouette is stable when compared to prior radiograph. Dictated by: Giorgi Rincon MD The radiology attending physician has personally reviewed this study, and had reviewed and/or edited this written report and agrees with it. Electronically signed by: Larry Red M.D. Narrative 04/06/2024 6:32 PM [employer] EXAMINATION: XR CHEST PA LATERAL 2 VIEWS [...] it. Electronically signed by: Larry Red M.D. us Aurea Fine TRANSPORTER RADIOLOGY IMG XR PROCEDURES Final Re sult * (ABNORMAL) POCT urinalysis dipstick (04/06/2024 10:35 AM [employer]IT[employer]) Glucose, ur, POC Negative Negative MG/DL Bilirubin, ur, POC Negative Negative, Small, Moderate, Large Ketones, ur, POC Negative Negative Specific [place], POC 1.025 1.003 - 1.030 Blood, ur, POC Negative Negative pH, ur, POC 5.5 5.0 - 8.0 Protein, ur, POC 1+(A) Negative Urobilinogen, urine, POC 0.2 0.2 - 1.0 mg/dL Nitrite, ur, POC Negative Negative Leukocytes, ur, POC 1+(A) Negative Lot Number [id number] Urine 04/06/2024 10:3 5 AM [employer] Aurea Fine NP POINT OF CARE TEST ORDERAB LES Final Result * BK virus, DNA, quantitative Blood (04/05/2024 9:00 AM [employer]) [facility] BK Virus DNA, PCR Negative Negative IU/mL [facility] - 01 Comment: No BK DNA detected. The linear range of the assay is 22 - 100,000,000 IU/mL. Blood 04/05/2024 9:00 AM [employer] 04/05/2024 Narrative [facility] - 04/07/2024 2:09 PM [employer] Performed at: [address] [place] [address] [id number] Superintendent Drilling: Agustina Tyler MD, Phone: [phone] Result [facility] Jack Morrison MD LAB MICROBIOLOGY - GENERAL O RDERABLES Final Result [facility] - 01 * Tacrolimus level trough (04/05/2024 8:59 AM IMP[employer]) [facility] Tacrolimus (FK506), Blood 11.7 5.0 - [...] reference interval change Blood 04/05/2024 8:59 AM [employer] 04/05/2024 Narrative [facility] - 04/07/2024 8:07 PM [employer] Test(s) [id number] (FK506), Blood was developed and its performance characteristics determined by [facility]. It has not been cleared or approved by the Food and Drug Administration. Performed at: - [address] [id number] Superintendent Drilling: Agustina Tyler MD, Phone: [phone] us Jack Morrison MD LAB BLOOD ORDERABLES Final R esult [facility] - 01 * (ABNORMAL) Renal function panel (04/05/2024 8:58 AM [employer]) Glucose 129(H) 70 - 99 mg/dL [facility] [...] [facility] - 01 Blood 04/05/2024 8:58 AM [employer] 04/05/2024 Narrative [facility] - 04/06/2024 4:07 AM [employer] Performed at: [address] [id number] Superintendent Drilling: Prabhjot Trammell PhD, Phone: [phone] us Jack Morrison MD LAB BLOOD ORDERABLES Final R esult [facility] * (ABNORMAL) Renal function panel (04/05/2024 8:57 AM [employer]) Glucose 124(H) 70 - 99 mg/dL [facility] [...] [facility] - 01 Blood 04/05/2024 8:57 AM [employer] 04/05/2024 Narrative [facility] - 04/06/2024 4:07 AM [employer] Performed at: [facility] [address] [id number] Superintendent Drilling: Prabhjot Trammell PhD, Phone: [phone] us Jack Morrison MD LAB BLOOD ORDERABLES Final R esult [facility] - * BK virus, DNA, quantitative Blood (03/29/2024 11:28 AM [employer]) BK Virus DNA, PCR Negative Negative IU/mL [facility] - 01 Comment: No BK DNA detected. The linear range of the assay is 22 - 100,000,000 IU/mL. Blood 03/29/2024 11:2 8 AM [employer] 03/29/2024 Narrative [facility] - 03/31/2024 2:09 PM [employer] Performed at: [address] [place] [address] [id number] Superintendent Drilling: Agustina Tyler MD, Phone: [phone] Jack Morrison MD LAB MICROBIOLOGY - GENERAL O RDERABLES Final Result Performing Organization Address [facility] Co de Phone Number [facility] - * Tacrolimus level trough (03/29/2024 11:27 AM IMPREG[employer]ATOR [employer]) Pathologist [facility] Tacrolimus (FK506), Blood 4.6 2.0 - 20.0 ng/mL [facility] - Comment: Trough (immediately following transplant) 15.0 Trough (steady state, 2 weeks or more after transplant): 3.0 - 8.0 Performed by LC-MS/MS technology. Effective April 02, 2024 the reference interval for Tacrolimus will be updated to: 5.0 - 20.0 ng/mL Blood 03/29/2024 11:2 7 AM [employer] 03/29/2024 Narrative [facility] - 04/01/2024 4:09 PM [employer] Test(s) [id number] (FK506), Blood was developed and its performance characteristics determined by [facility]. It has not been cleared or approved by the Food and Drug Administration. Performed at: [address] [place] [address] [id number] Superintendent Drilling: Agustina Tyler MD, Phone: [phone] Jack Morrison MD LAB BLOOD ORDERABLES Final R esult Performing Organization Address [facility] Co de Phone Number [facility] * (ABNORMAL) CBC with auto differential (03/29/2024 11:26 AM IMPREG[employer]ATOR [employer]) Pathologist [facility] WBC 4.7 3.4 - 10.8 x10E3/uL [facility] - RBC 3.54(L) 4.14 - 5.80 x10E6/uL [facility] [...] was performed. Blood 03/29/2024 11:2 6 AM [employer] 03/29/2024 Narrative [facility] - 03/30/2024 3:07 AM [employer] Performed at: - [facility] [address] [id number] Superintendent Drilling: Prabhjot Trammell PhD, Phone: [phone] us Jack Morrison MD LAB BLOOD ORDERABLES Final R esult [facility] - * (ABNORMAL) Renal function panel (03/29/2024 11:25 AM IMPREG[employer]) Glucose 113(H) 70 - 99 mg/dL [facility] [...] - 01 Blood 03/29/2024 11:2 5 AM [employer] 03/29/2024 Narrative [facility] - 03/30/2024 2:09 PM [employer] Performed at: [address] [id number] Superintendent Drilling: Prabhjot Trammell PhD, Phone: [phone] us Jack Morrison MD LAB BLOOD ORDERABLES Final R esult [facility] - 01 * BK virus, DNA, quantitative Blood (03/23/2024 12:07 PM [employer]) BK Virus DNA, PCR Negative Negative IU/mL [facility] - 01 Comment: No BK DNA detected. The linear range of the assay is 22 - 100,000,000 IU/mL. Blood 03/23/2024 12:0 7 PM [employer] 03/23/2024 Narrative [facility] - 03/25/2024 12:09 PM [employer] Performed at: [address] [id number] Superintendent Drilling: Agustina Tyler MD, Phone: [phone] Jack Morrison MD LAB MICROBIOLOGY - GENERAL O RDERABLES Final Result Performing Organization Address [facility] de Phone Number [facility] * Tacrolimus level trough (03/23/2024 12:06 PM IMP[employer]) [facility] Tacrolimus (FK506), Blood 5.9 2.0 - 20.0 ng/mL [facility] - 01 Comment: Trough (immediately following transplant) 15.0 Trough (steady state, 2 weeks or more after transplant): 3.0 - 8.0 Performed by LC-MS/MS technology. Effective April 02, 2024 the reference interval for Tacrolimus will be updated to: 5.0 - 20.0 ng/mL Blood 03/23/2024 12:0 6 PM [employer] 03/23/2024 Narrative [facility] - 03/26/2024 8:07 PM [employer]IT[employer] Test(s) [id number] (FK506), Blood was developed and its performance characteristics determined by [employer]. It has not been cleared or approved by the Food and Drug Administration. Performed at: - [address] [id number] Superintendent Drilling: Agustina Tyler MD, Phone: [phone] Jack Morrison MD LAB BLOOD ORDERABLES Final R esult Performing Organization Address [facility] Co de Phone Number [facility] - * (ABNORMAL) CBC with auto differential (03/23/2024 12:05 PM IMP[employer]ATOR [employer]IT[employer]) [facility] WBC 7.0 3.4 - [...] clinical significance.) Blood 03/23/2024 12:0 5 PM [employer] 03/23/2024 Narrative [facility] - 03/24/2024 6:09 AM [employer] Performed at: - [address] [id number] Superintendent Drilling: Prabhjot Trammell PhD, Phone: [phone] us Jack Morrison MD LAB BLOOD ORDERABLES Final R esult [facility] - * (ABNORMAL) Renal function panel (03/23/2024 12:04 PM IMP[employer]IT[employer]) Pathologist [facility] Glucose 115(H) 70 - 99 mg/dL [facility] [...] - 01 Blood 03/23/2024 12:0 4 PM [employer] 03/23/2024 Narrative [facility] - 03/24/2024 9:36 AM [employer] Performed at: - [facility] [place] [id number] Superintendent Drilling: Prabhjot Trammell PhD, Phone: [phone] us Jack Morrison MD LAB BLOOD ORDERABLES Final R esult [facility] - 01 * IR Inject Abscess Catheter (03/22/2024 10:05 AM IMP[employer]ATOR [employer]IT[employer]) Anatomical Region Laterality Modality Body N/A Radio Fluoroscop y 03/22/2024 10:1 6 AM [employer] Impressions 03/22/2024 10:16 AM [employer] Resolved collection with no evidence of fistula to adjacent structures. Catheter was removed. PLAN: Advise patient to monitor for any new symptoms. He will follow up with us as needed. If questions arise, please contact us by calling [phone]. Electronically signed by: Radha Barrios PA-C Narrative 03/22/2024 10:16 AM [employer]IT[employer] EXAMINATION: DRAINAGE CATHETER EVALUATION AND REMOVAL HISTORY: [...] None TECHNIQUE: Prior to beginning the procedure, [place] Protocol was used to confirm the patient's identity and planned procedure. Fluoroscopy time has been recorded in the electronic medical record. After obtaining a digital campaign manager image, the catheter was injected with dilute [...] None TECHNIQUE: Prior to beginning the procedure, [place] Protocol was used to confirm the patient's identity and planned procedure. Fluoroscopy time has been recorded in the electronic medical record. After obtaining a digital campaign manager image, the catheter was injected with dilute [...] questions arise, please contact us by calling [phone]. Electronically signed by: Radha Barrios PA-C Flori LEE IMG IR PROCEDURES Final Res ult * Lipid panel (03/15/2024 9:49 AM IMPREGNATOR [employer]IT[employer]) Pathologist [facility] Cholesterol 106 100 - 199 mg/dL [facility] - 01 Triglycerides 88 0 - 149 mg/dL [facility] - 01 HDL Cholesterol 44 >39 mg/dL [facility] - 01 VLDL 17 5 - 40 mg/dL [facility] - 01 LDL, calculated 45 0 - 99 mg/dL [facility] - 01 Blood 03/15/2024 9:49 AM [employer] 03/15/2024 Narrative [facility] - 03/16/2024 3:07 AM [employer] Performed at: [facility] [id number] Superintendent Drilling: Prabhjot Trammell PhD, Phone: [phone] Result [facility] Jack Morrison MD LAB BLOOD ORDERABLES Final R esult [facility] - 01 * BK virus, DNA, quantitative Blood (03/15/2024 9:48 AM IMPREG[employer]ATOR [employer]IT[employer]) [facility] BK Virus DNA, PCR Negative Negative IU/mL [facility] - 01 Comment: No BK DNA detected. The linear range of the assay is 22 - 100,000,000 IU/mL. Blood 03/15/2024 9:48 AM [employer] 03/15/2024 Narrative [facility] - 03/18/2024 12:09 PM [employer] Performed at: [address] [id number] Superintendent Drilling: Agustina Tyler MD, Phone: [phone] Jack Morrison MD LAB MICROBIOLOGY - GENERAL O RDERABLES Final Result [facility] - 01 * (ABNORMAL) Hepatic function panel (03/15/2024 9:48 AM IMPREGNATOR [employer]IT[employer]) [facility] Protein, sr 6.4 6.0 - 8.5 g/dL [...] [facility] - 01 Blood 03/15/2024 9:48 AM [employer] 03/15/2024 Narrative [facility] - 03/16/2024 4:07 AM [employer] Performed at: [place] [id number] Superintendent Drilling: Prabhjot Trammell PhD, Phone: [phone] Jack Morrison MD LAB BLOOD ORDERABLES Final R esult Performing Organization Address [facility]/ZIP Co de Phone Number [facility] - 01 * Tacrolimus level trough (03/15/2024 9:47 AM IMPREGNATOR [employer]ACIT[employer]) [facility] Tacrolimus (FK506), Blood 4.4 2.0 - 20.0 ng/mL [facility] - 01 Comment: Trough (immediately following transplant) 15.0 Trough (steady state, 2 weeks or more after transplant): 3.0 - 8.0 Performed by LC-MS/MS technology. Effective April 02, 2024 the reference interval for Tacrolimus will be updated to: 5.0 - 20.0 ng/mL Blood 03/15/2024 9:47 AM [employer] 03/15/2024 Narrative [facility] - 03/19/2024 12:08 PM [employer] Test(s) [id number] (FK506), Blood was developed and its performance characteristics determined by [facility]. It has not been cleared or approved by the Food and Drug Administration. Performed at: 01 - [facility] [id number] Superintendent Drilling: Agustina Tyler MD, Phone: [phone] us Jack Morrison MD LAB BLOOD ORDERABLES Final R esult [facility] - 01 * (ABNORMAL) CBC with auto differential (03/15/2024 9:47 AM IMP[employer]ATOR [employer]IT[employer]) WBC 5.4 3.4 - 10.8 x10E3/uL [facility] [...] [facility] - 01 Blood 03/15/2024 9:47 AM [employer] 03/15/2024 Narrative [facility] - 03/16/2024 3:07 AM [employer] Performed at: [address] [id number] Superintendent Drilling: Prabhjot Trammell PhD, Phone: [phone] us Jack Morrison MD LAB BLOOD ORDERABLES Final R esult [facility] * (ABNORMAL) Renal function panel (03/15/2024 9:46 AM IMP[employer]ATOR [employer]IT[employer]) Glucose 115(H) 70 - 99 mg/dL [facility] [...] [facility] - 01 Blood 03/15/2024 9:46 AM [employer] 03/15/2024 Narrative [facility] - 03/16/2024 4:07 AM [employer] Performed at: [address] [id number] Superintendent Drilling: Prabhjot Trammell PhD, Phone: [phone] Jack Morrison MD LAB BLOOD ORDERABLES Final R esult [facility] - 01 * (ABNORMAL) POCT urinalysis dipstick (03/10/2024 8:47 AM IMP[employer]ATOR [employer]IT[employer]) [facility] Color, Urine, POC Yellow Clarity, ur, POC Clear Clear Glucose, ur, POC Negative Negative MG/DL Ketones, ur, POC Negative Negative Blood, ur, POC 3+(A) Negative pH, ur, POC 5.0 5.0 - 8.0 Protein, ur, POC Trace(A) Negative Nitrite, ur, POC Negative Negative Leukocytes, ur, POC Trace(A) Negative Lot Number 0 Urine 03/10/2024 8:47 AM [employer] Roscoe Peck MD POINT OF CARE TEST ORDERABLES Final Result * BK virus PCR quantitative Blood (03/10/2024 8:21 AM IMP[employer]) [facility] BKV DNA result, pl Not Detected [facility] Comment: The quantifiable range of this assay is 21.5 IU/mL to 100,000,000 IU/mL (1.33 log IU/mL to 8.00 log IU/mL). Testing was performed by the WALDEMAR 6800 BKV Quantatitive Test version 2.0 ([employer] Testing performed at [facility] Current Interpretive Data was last revised on 2020. Blood 03/10/2024 8:21 AM [employer] 03/10/2024 8:43 AM [employer] Jack Morrison MD LAB MICROBIOLOGY - GENERAL O RDERABLES Final Result [facility] Department [place] [address] [facility] * (ABNORMAL) eGFR (03/10/2024 8:21 AM IMP[employer]ATOR [employer]IT[employer]) [facility] eGFR 22(L) >=60 mL/min/1. [...] last reviewed 2020. Blood 03/10/2024 8:21 AM [employer] 03/10/2024 8:42 AM [employer] us Jack Morrison MD LAB BLOOD ORDERABLES Final R esult [facility] Department [place] [address] * (ABNORMAL) Differential, auto (03/10/2024 8:21 AM IMP[employer]) Pathologist [facility] Neutrophil abs 4.9 1.5 - 6.5 K/cumm Imm gran abs 0.0 0.0 - 0.1 K/cumm [facility] Lymphocyte abs 0.3(L) 0.8 - 3.3 K/cumm [facility] Monocyte abs 0.4 0.2 - 0.8 K/cumm [facility] Eosinophil abs 0.0 0.0 - 0.5 K/cumm [facility] Basophil abs 0.0 0.0 - 0.1 K/cumm [facility] Neutrophil pct 86.2 % [facility] Comment: Interpretive Data Percent cell count reference ranges are not reported, since discordance with absolute values may lead to misinterpretation of CBC data. Current Interpretive Data was last revised on 2017. Imm gran pct 0.7 % [facility] Comment: Interpretive Data Percent cell count reference ranges are not reported, since discordance with absolute values may lead to misinterpretation of CBC data. Current Interpretive Data was last revised on 2017. Lymphocyte pct 4.9 % [facility] Comment: Interpretive Data Percent cell count reference ranges are not reported, since discordance with absolute values may lead to misinterpretation of CBC data. Current Interpretive Data was last revised on 2017. Monocyte pct 7.2 % [facility] Comment: Interpretive Data Percent cell count reference ranges are not reported, since discordance with absolute values may lead to misinterpretation of CBC data. Current Interpretive Data was last revised on 2017. Eosinophil pct 0.3 % [facility] Comment: Interpretive Data Percent cell count reference ranges are not reported, since discordance with absolute values may lead to misinterpretation of CBC data. Current Interpretive Data was last revised on 2017. Basophil pct 0.7 % [facility] Comment: Interpretive Data Percent cell count reference ranges are not reported, since discordance with absolute values may lead to misinterpretation of CBC data. Current Interpretive Data was last revised on 2017. Blood 03/10/2024 8:21 AM [employer] 03/10/2024 8:39 AM [employer] us Jack Morrison MD LAB BLOOD ORDERABLES Final R esult [facility] Department [place] [address] * (ABNORMAL) CBC with auto differential (03/10/2024 8:21 AM IMP[employer]ATOR [employer]) WBC 5.7 3.8 - 9.9 K/cumm Hgb 12.1(L) 13.0 - 17.5 g/dL [facility] Hct 36.1(L) 38.9 - 50.3 % [facility] Plt 220 150 - 400 K/cumm [facility] MPV 9.8 9.1 - 12.3 fL [facility] RBC 3.65(L) 4.30 - 5.80 M/cumm [facility] MCV 98.9(H) 81.3 - 96.4 fL [facility] MCH 33.2 27.1 - 33.3 pg [facility] MCHC 33.5 32.3 - 35.7 g/dL [facility] RDW CV 14.2 11.1 - 14.9 % [facility] RDW SD 52.4(H) 35.7 - 48.1 fL [facility] NRBC abs 0.00 0.00 - 0.01 K/cumm [facility] Blood 03/10/2024 8:21 AM [employer] 03/10/2024 8:39 AM [employer] Jack Morrison MD LAB BLOOD ORDERABLES Final R esult Performing Organization Address [facility] de Phone Number [facility] [place] [address] * Tacrolimus level random (03/10/2024 8:21 AM IMP[employer]IT[employer]) Tacrolimus random 9.0 ng/mL Comment: Interpretive Data Testing performed by liquid chromatography-tandem mass spectrometry. Therapeutic concentrations vary depending on type of transplanted organ and time elapsed since transplant. Typical trough concentrations range from 5-15 ng/mL. This test was developed and its performance characteristics determined by the [facility] consistent with CLIA requirements. This test has not been cleared or approved by the [place] Food and Drug administration. Current interpretive data last reviewed 2019. Blood 03/10/2024 8:21 AM [employer] 03/10/2024 8:39 AM [employer] Jack Morrison MD LAB BLOOD ORDERABLES Final R esult Performing Organization Address [facility] Co de Phone Number [facility] [place] [address] * Magnesium (03/10/2024 8:21 AM IMP[employer]ATOR [employer]IT[employer]) Magnesium 2.0 1.4 - 2.5 mg/dL Blood 03/10/2024 8:21 AM [employer] 03/10/2024 8:39 AM [employer] Jack Morrison MD LAB BLOOD ORDERABLES Final R esult [facility] Department [place] [address] * (ABNORMAL) Renal function panel (03/10/2024 8:21 AM IMPREG[employer]ATOR [employer]IT[employer]) Pathologist [facility] Sodium 142 135 - 145 mmol/L Potassium, pl 5.1(H) 3.3 - 4.9 mmol/L [facility] Chloride 108 97 - 110 mmol/L [facility] CO2 24 22 - 32 mmol/L [facility] Anion gap 10 2 - 15 mmol/L [facility] BUN 49(H) 6 - 25 mg/dL [facility] Creatinine 3.09(H) 0.80 - 1.30 mg/dL [facility] Glucose 91 70 - 199 mg/dL [facility] Comment: Interpretive Data Fasting glucose >/= 126 [...] 2022. Calcium 10.2 8.5 - 10.3 mg/dL [facility] Phosphorus, pl 3.2 2.3 - 4.5 mg/dL [facility] Albumin 3.8 3.5 - 5.0 g/dL [facility] Blood 03/10/2024 8:21 AM [employer] 03/10/2024 8:39 AM [employer] Jack Morrison MD LAB BLOOD ORDERABLES Final R esult [facility] Department [place] [address] * PET Stress Test (03/08/2024 3:12 PM IMP[employer]ATOR [employer]ACIT[employer]) Anatomical Region Laterality Modality N/A Positron Emissio n Tomography (PET) 03/08/2024 4:13 PM [employer]IT[employer] Impressions 03/08/2024 4:13 PM [employer]ACIT[employer] Asymptomatic and electrocardiographically normal pharmacologic stress test I personally supervised and was present throughout the stress test. Refer to for the separate report of the PET myocardial perfusion imaging results. Electronically signed by: Jose Ortiz M.D. Narrative 03/08/2024 4:13 PM [employer]ATOR [employer]ITORS EXAMINATION: PHARMACOLOGIC STRESS TEST FOR CARDIAC PET [...] results. Electronically signed by: Jose Ortiz M.D. [facility] Jadiel Merino MD IMG PET PROCEDURES Final R esult * PET/CT Myocardial Perfusion Imaging (Multiple) (03/08/2024 3:12 PM IMPREG[employer]ATOR [employer]ACIT[employer]) Anatomical Region Laterality Modality Body N/A Positron Emissio n Tomography (PET) 03/08/2024 3:55 PM [employer]IT[employer] Impressions 03/08/2024 4:09 PM [employer] 1. There is a ecmut-vf-zudmrzox size and mild infarct involving the mwdwc-nh-bzg-segments inferoseptally associated with moderate severe theresa-infarct ischemia during pharmacologic stress. 2. Marked left ventricular dilation and mild global hyopkinesis with severe hypo-to akinesis utiic-mf-yad-segments inferoseptally. 3. Flow quantification with reduced global [...] Jose Ortiz M.D. Narrative 03/08/2024 4:09 PM [employer]ATOR [employer]IT[employer] EXAMINATION: MYOCARDIAL PET/CT PERFUSION IMAGING (STRESS/REST) DATE [...] was referred for PET MPI by his [employer] Engine Operator (Dr. Merino). Evaluate for ischemia and/or microvascular [...] mild global hypokinesis. FINDINGS: There is a qakju-se-hjxopvoh size and mild infarct involving the wcsri-sb-lhf-segments inferoseptally associated with moderate severe theresa-infarct ischemia during pharmacologic stress. Gated post-stress images demonstrate marked left ventricular dilation and mild global hyopkinesis with severe hypo-to akinesis ergdm-zr-rxp-segments inferoseptally and the left ventricular ejection fraction [...] was referred for PET MPI by his [employer] Engine Operator (Dr. Merino). Evaluate for ischemia and/or microvascular [...] of any abnormal extracardiac tracer uptake. COMPARISON: [place] MPI SPECT (December 2021): large and moderately severe ischemia involving the basal to mid lateral wall and more pronounced anterolaterally. Normal rest perfusion. Enlarged LV cavity with mild global hypokinesis. FINDINGS: There is a mxmpv-ae-ayjojacc size and mild infarct involving the dguvd-cj-apn-segments inferoseptally associated with moderate severe theresa-infarct ischemia during pharmacologic stress. Gated post-stress images demonstrate marked left ventricular dilation and mild global hyopkinesis with severe hypo-to akinesis fmjbz-ay-wzu-segments inferoseptally and the left ventricular ejection fraction [...] multilevel spondylosis. IMPRESSION: 1. There is a tbsmc-gt-hjjffubz size and mild infarct involving the mhhhn-it-fem-segments inferoseptally associated with moderate severe theresa-infarct ischemia during pharmacologic stress. 2. Marked left ventricular dilation and mild global hyopkinesis with severe hypo-to akinesis gfszb-eo-jbw-segments inferoseptally. 3. Flow quantification with reduced global [...] IR Inject Abscess Catheter (03/08/2024 11:02 AM [employer]) Anatomical Region Laterality Modality Body N/A Radio Fluoroscop y 03/08/2024 12:2 0 PM [employer] Impressions 03/08/2024 12:20 PM [employer] Improving and nearly resolved superficial collection without new fistula. Catheter was removed. Improving, but still present perinephric collection without new fistula. Catheter was kept in place. PLAN: Continue to monitor remaining catheter output as well as the patient's clinical condition. The catheter should not be flushed. The patient will follow-up with us in 2 weeks. If questions arise, please contact us by calling [phone]. Electronically signed by: CARRI Zheng 03/08/2024 12:20 PM [employer] EXAMINATION: DRAINAGE CATHETER EVALUATION AND REMOVAL HISTORY: [...] required TECHNIQUE: Prior to beginning the procedure, [place] Protocol was used to confirm the patient's identity and planned procedure. Fluoroscopy time has been recorded in the electronic medical record. After obtaining a digital campaign manager image, the catheter was injected with dilute [...] required TECHNIQUE: Prior to beginning the procedure, [place] Protocol was used to confirm the patient's identity and planned procedure. Fluoroscopy time has been recorded in the electronic medical record. After obtaining a digital campaign manager image, the catheter was injected with dilute [...] questions arise, please contact us by calling [phone]. Electronically signed by: Flori Strange PA-C us Savanna Kwok MD IMG IR PROCEDURES Fin al Result * (ABNORMAL) eGFR (03/03/2024 9:40 AM [employer]) eGFR 22(L) >=60 mL/min/1. 73 m2 Comment: [...] last reviewed 2020. Blood 03/03/2024 9:40 AM [employer] 03/03/2024 12:52 PM [employer] us Matthew Marti MD LAB BLOOD ORDERABLES Final Result [facility] Department [place] [address] * (ABNORMAL) Differential, auto (03/03/2024 9:40 AM [employer]) Neutrophil abs 6.0 1.5 - 6.5 K/cumm Imm gran abs 0.1 0.0 - 0.1 K/cumm [facility] Lymphocyte abs 0.3(L) 0.8 - 3.3 K/cumm [facility] Monocyte abs 0.4 0.2 - 0.8 K/cumm [facility] Eosinophil abs 0.0 0.0 - 0.5 K/cumm [facility] Basophil abs 0.0 0.0 - 0.1 K/cumm [facility] Neutrophil pct 89.0 % [facility] Comment: Interpretive Data Percent cell count reference ranges are not reported, since discordance with absolute values may lead to misinterpretation of CBC data. Current Interpretive Data was last revised on 2017. Imm gran pct 0.7 % [facility] Comment: Interpretive Data Percent cell count reference ranges are not reported, since discordance with absolute values may lead to misinterpretation of CBC data. Current Interpretive Data was last revised on 2017. Lymphocyte pct 3.7 % [facility] Comment: Interpretive Data Percent cell count reference ranges are not reported, since discordance with absolute values may lead to misinterpretation of CBC data. Current Interpretive Data was last revised on 2017. Monocyte pct 6.2 % [facility] Comment: Interpretive Data Percent cell count reference ranges are not reported, since discordance with absolute values may lead to misinterpretation of CBC data. Current Interpretive Data was last revised on 2017. Eosinophil pct 0.1 % [facility] Comment: Interpretive Data Percent cell count reference ranges are not reported, since discordance with absolute values may lead to misinterpretation of CBC data. Current Interpretive Data was last revised on 2017. Basophil pct 0.3 % [facility] Comment: Interpretive Data Percent cell count reference ranges are not reported, since discordance with absolute values may lead to misinterpretation of CBC data. Current Interpretive Data was last revised on 2017. Blood 03/03/2024 9:40 AM [employer] 03/03/2024 12:40 PM [employer] Matthew Marti MD LAB BLOOD ORDERABLES Final Result Performing Organization Address [facility] de Phone Number [facility] [place] [address] * Tacrolimus level trough (03/03/2024 9:40 AM IMP[employer]) [facility] Tacrolimus trough 7.1 ng/mL Comment: Interpretive Data Testing performed by liquid chromatography-tandem mass spectrometry. Therapeutic concentrations vary depending on type of transplanted organ and time elapsed since transplant. Typical trough concentrations range from 5-15 ng/mL. This test was developed and its performance characteristics determined by the [facility] consistent with CLIA requirements. This test has not been cleared or approved by the [place] Food and Drug administration. Current interpretive data last reviewed 2019. Blood 03/03/2024 9:40 AM [employer] 03/03/2024 12:40 PM [employer] Matthew Marti MD LAB BLOOD ORDERABLES Final Result Performing Organization Address [facility] [place] [address] * (ABNORMAL) CBC with auto differential (03/03/2024 9:40 AM [employer]) [facility] WBC 6.8 3.8 - 9.9 K/cumm Hgb 12.5(L) 13.0 - 17.5 g/dL [facility] Hct 37.1(L) 38.9 - 50.3 % [facility] Plt 166 150 - 400 K/cumm [facility] MPV 10.4 9.1 - 12.3 fL [facility] RBC 3.76(L) 4.30 - 5.80 M/cumm [facility] MCV 98.7(H) 81.3 - 96.4 fL [facility] MCH 33.2 27.1 - 33.3 pg [facility] MCHC 33.7 32.3 - 35.7 g/dL [facility] RDW CV 15.2(H) 11.1 - 14.9 % [facility] RDW SD 55.8(H) 35.7 - 48.1 fL [facility] NRBC abs 0.00 0.00 - 0.01 K/cumm [facility] Blood 03/03/2024 9:40 AM [employer] 03/03/2024 12:40 PM [employer] Matthew Marti MD LAB BLOOD ORDERABLES Final Result Performing Organization Address City/[facility] Co de Phone Number [facility] Department [place] [address] * Magnesium (03/03/2024 9:40 AM IMP[employer]) [facility] Magnesium 1.7 1.4 - 2.5 mg/dL Blood 03/03/2024 9:40 AM [employer] 03/03/2024 12:40 PM [employer] Matthew Marti MD LAB BLOOD ORDERABLES Final Result Performing Organization Address [facility] de Phone Number [facility] [place] [address] * (ABNORMAL) Renal function panel (03/03/2024 9:40 AM IMPREG[employer]) Pathologist [facility] Sodium 138 135 - 145 mmol/L Potassium, pl 5.3(H) 3.3 - 4.9 mmol/L [facility] Chloride 106 97 - 110 mmol/L [facility] CO2 22 22 - 32 mmol/L [facility] Anion gap 10 2 - 15 mmol/L [facility] BUN 42(H) 6 - 25 mg/dL [facility] Creatinine 3.02(H) 0.80 - 1.30 mg/dL [facility] Glucose 101 70 - 199 mg/dL [facility] Comment: Interpretive Data Fasting glucose >/= 126 [...] 2022. Calcium 9.7 8.5 - 10.3 mg/dL [facility] Phosphorus, pl 2.8 2.3 - 4.5 mg/dL [facility] Albumin 3.8 3.5 - 5.0 g/dL [facility] Blood 03/03/2024 9:40 AM [employer] 03/03/2024 12:40 PM [employer] Matthew Marti MD LAB BLOOD ORDERABLES Final Result [facility] Department [place] [address] * (ABNORMAL) eGFR (03/01/2024 8:00 AM [employer]) eGFR 23(L) >=60 mL/min/1. 73 m2 Comment: [...] last reviewed 2020. Blood 03/01/2024 8:00 AM [employer] 03/01/2024 12:38 PM [employer] us Rosalie Velásquez TRANSPORTER RADIOLOGY LAB BLOOD ORDERABLES Final Result [facility] Department [place] [address] * (ABNORMAL) Differential, auto (03/01/2024 8:00 AM [employer]) Neutrophil abs 3.4 1.5 - 6.5 K/cumm Imm gran abs 0.0 0.0 - 0.1 K/cumm [facility] Lymphocyte abs 0.4(L) 0.8 - 3.3 K/cumm [facility] Monocyte abs 0.3 0.2 - 0.8 K/cumm [facility] Eosinophil abs 0.0 0.0 - 0.5 K/cumm [facility] Basophil abs 0.0 0.0 - 0.1 K/cumm [facility] Neutrophil pct 81.3 % [facility] Comment: Interpretive Data Percent cell count reference ranges are not reported, since discordance with absolute values may lead to misinterpretation of CBC data. Current Interpretive Data was last revised on 2017. Imm gran pct 1.0 % [facility] Comment: Interpretive Data Percent cell count reference ranges are not reported, since discordance with absolute values may lead to misinterpretation of CBC data. Current Interpretive Data was last revised on 2017. Lymphocyte pct 8.7 % [facility] Comment: Interpretive Data Percent cell count reference ranges are not reported, since discordance with absolute values may lead to misinterpretation of CBC data. Current Interpretive Data was last revised on 2017. Monocyte pct 7.0 % [facility] Comment: Interpretive Data Percent cell count reference ranges are not reported, since discordance with absolute values may lead to misinterpretation of CBC data. Current Interpretive Data was last revised on 2017. Eosinophil pct 1.0 % [facility] Comment: Interpretive Data Percent cell count reference ranges are not reported, since discordance with absolute values may lead to misinterpretation of CBC data. Current Interpretive Data was last revised on 2017. Basophil pct 1.0 % [facility] Comment: Interpretive Data Percent cell count reference ranges are not reported, since discordance with absolute values may lead to misinterpretation of CBC data. Current Interpretive Data was last revised on 2017. Blood 03/01/2024 8:00 AM [employer] 03/01/2024 12:32 PM [employer] Rosalie Velásquez TRANSPORTER RADIOLOGY LAB BLOOD ORDERABLES Final Result Performing Organization Address [facility] de Phone Number [facility] Department [place] [address] * Tacrolimus level trough (03/01/2024 8:00 AM IMPREG[employer]) Pathologist [facility] Tacrolimus trough 8.7 ng/mL Comment: Interpretive Data Testing performed by liquid chromatography-tandem mass spectrometry. Therapeutic concentrations vary depending on type of transplanted organ and time elapsed since transplant. Typical trough concentrations range from 5-15 ng/mL. This test was developed and its performance characteristics determined by the [facility] consistent with CLIA requirements. This test has not been cleared or approved by the [place] Food and Drug administration. Current interpretive data last reviewed 2019. Blood 03/01/2024 8:00 AM [employer] 03/01/2024 12:32 PM [employer] Rosalie Velásquez TRANSPORTER RADIOLOGY LAB BLOOD ORDERABLES Final Result Performing Organization Address [facility] Co de Phone Number [facility] [place] [address] * (ABNORMAL) CBC with auto differential (03/01/2024 8:00 AM IMP[employer]) Pathologist [facility] WBC 4.2 3.8 - 9.9 K/cumm Hgb 12.3(L) 13.0 - 17.5 g/dL [facility] Hct 36.5(L) 38.9 - 50.3 % [facility] Plt 151 150 - 400 K/cumm [facility] MPV 10.2 9.1 - 12.3 fL [facility] RBC 3.66(L) 4.30 - 5.80 M/cumm [facility] MCV 99.7(H) 81.3 - 96.4 fL [facility] MCH 33.6(H) 27.1 - 33.3 pg [facility] MCHC 33.7 32.3 - 35.7 g/dL [facility] RDW CV 15.7(H) 11.1 - 14.9 % [facility] RDW SD 58.0(H) 35.7 - 48.1 fL [facility] NRBC abs 0.00 0.00 - 0.01 K/cumm [facility] Blood 03/01/2024 8:00 AM [employer] 03/01/2024 12:32 PM [employer] Rosalie Velásquez NP LAB BLOOD ORDERABLES Final Result Performing Organization Address City/[facility]/ZIP Co de Phone Number [facility] Department [place] [address] * Magnesium (03/01/2024 8:00 AM IMPREG[employer]ATOR [employer]IT[employer]) Pathologist [facility] Magnesium 1.9 1.4 - 2.5 mg/dL Blood 03/01/2024 8:00 AM [employer] 03/01/2024 12:31 PM [employer] Rosalie Velásquez TRANSPORTER RADIOLOGY LAB BLOOD ORDERABLES Final Result [facility] [place] [employer] [place] [address] * (ABNORMAL) Renal function panel (03/01/2024 8:00 AM IMPREG[employer]ACIT[employer]) Sodium 140 135 - 145 mmol/L Potassium, pl 5.4(H) 3.3 - 4.9 mmol/L [facility] Chloride 106 97 - 110 mmol/L [facility] CO2 22 22 - 32 mmol/L [facility] Anion gap 12 2 - 15 mmol/L [facility] BUN 39(H) 6 - 25 mg/dL [facility] Creatinine 2.94(H) 0.80 - 1.30 mg/dL [facility] Glucose 92 70 - 199 mg/dL [facility] Comment: Interpretive Data Fasting glucose >/= 126 [...] 2022. Calcium 10.2 8.5 - 10.3 mg/dL [facility] Phosphorus, pl 2.8 2.3 - 4.5 mg/dL [facility] Albumin 3.8 3.5 - 5.0 g/dL [facility] Blood 03/01/2024 8:00 AM [employer] 03/01/2024 12:31 PM [employer] Rosalie Velásquez NP LAB BLOOD ORDERABLES Final Result [facility] Department [place] [address] * BK virus, DNA, quantitative Blood (02/26/2024 8:59 AM IMP[employer]) Pathologist [facility] BK Virus DNA, PCR Negative Negative IU/mL [facility] - 01 Comment: No BK DNA detected. The linear range of the assay is 22 - 100,000,000 IU/mL. Blood 02/26/2024 8:59 AM [employer] 02/26/2024 Narrative [facility] - 02/29/2024 2:08 PM [employer] Performed at: [address] [place] [id number] Superintendent Drilling: Agustina Tyler MD, Phone: [phone] Jack Morrison MD LAB MICROBIOLOGY - GENERAL O RDERABLES Final Result Performing Organization Address [facility] de Phone Number [facility] - * Tacrolimus level trough (02/26/2024 8:59 AM IMP[employer]) Pathologist [facility] Tacrolimus ([id number]), Blood 8.4 2.0 - 20.0 ng/mL [facility] - 01 Comment: Trough (immediately following transplant) 15.0 Trough (steady state, 2 weeks or more after transplant): 3.0 - 8.0 Performed by LC-MS/MS technology. Blood 02/26/2024 8:59 AM [employer] 02/26/2024 Narrative [facility] - 02/29/2024 2:08 PM [employer] Test(s) [id number] (FK506), Blood was developed and its performance characteristics determined by [facility]. It has not been cleared or approved by the Food and Drug Administration. Performed at: [address] [place] [address] [id number] Superintendent Drilling: Agusitna Tyler MD, Phone: [phone] Jack Morrison MD LAB BLOOD ORDERABLES Final R esult Performing Organization Address [facility] de Phone Number [facility] - * (ABNORMAL) CBC with auto differential (02/26/2024 8:59 AM IMPREG[employer]) Pathologist [facility] WBC 3.6 3.4 - 10.8 x10E3/uL [facility] [...] [facility] - 01 Blood 02/26/2024 8:59 AM [employer] 02/26/2024 Narrative [facility] - 02/27/2024 7:07 AM [employer] Performed at: [address] [place] [address] [id number] Superintendent Drilling: Prabhjot Trammell PhD, Phone: [phone] us Jack Morrison MD LAB BLOOD ORDERABLES Final R esult [facility] - 01 * (ABNORMAL) Hepatic function panel (02/26/2024 8:59 AM IMPREG[employer]ATOR [employer]ACIT[employer]) [facility] Protein, sr 6.1 6.0 - 8.5 g/dL [facility] - 01 Bilirubin, Total 0.4 0.0 - 1.2 mg/dL [facility] - 01 Bilirubin, direct 0.17 0.00 - 0.40 mg/dL [facility] - 01 Alk phos 147(H) 44 - 121 IU/L [facility] - 01 AST 14 0 - 40 IU/L [facility] - 01 ALT 10 0 - 44 IU/L [facility] - 01 Blood 02/26/2024 8:59 AM [employer] 02/26/2024 Narrative [facility] - 02/27/2024 7:07 AM [employer] Performed at: [address] [id number] Superintendent Drilling: Prabhjot Trammell PhD, Phone: [phone] us Jack Morrison MD LAB BLOOD ORDERABLES Final R esult [facility] - 01 * (ABNORMAL) Renal function panel (02/26/2024 8:59 AM IMPREGNATOR [employer]ACIT[employer]) [facility] Glucose 99 70 - [...] [facility] - 01 Blood 02/26/2024 8:59 AM [employer] 02/26/2024 Narrative [facility] - 02/27/2024 7:07 AM [employer] Performed at: [address] [id number] Superintendent Drilling: Prabhjot Trammell PhD, Phone: [phone] us Jack Morrison MD LAB BLOOD ORDERABLES Final R esult [facility] - 01 * Lipid panel (02/26/2024 8:59 AM IMPREG[employer]ATOR [employer]) Cholesterol 121 100 - 199 mg/dL [facility] - 01 Triglycerides 104 0 - 149 mg/dL [facility] - 01 HDL Cholesterol 52 >39 mg/dL [facility] - 01 VLDL 19 5 - 40 mg/dL [facility] - 01 LDL, calculated 50 0 - 99 mg/dL [facility] - 01 Blood 02/26/2024 8:59 AM [employer] 02/26/2024 Narrative [facility] - 02/27/2024 7:07 AM [employer] Performed at: [address] [place] [address] [id number] Superintendent Drilling: Prabhjot Trammell PhD, Phone: [phone] us Jack Morrison MD LAB BLOOD ORDERABLES Final R esult Performing Organization Address City/[facility]/ZIP Co de Phone Number [facility] - * POCT glucose (02/23/2024 11:43 AM IMPREGNATOR [employer]ACIT[employer]) Glucose, POC 105 70 - 199 mg/dL Blood 02/23/2024 11:4 3 AM [employer] 02/23/2024 11:43 AM [employer] us Renetta Jones MD PhD LAB POCT ORDERABLES - DEVICE Fi nal Result [facility] Department [place] [address] * POCT glucose (02/23/2024 8:21 AM IMPREGNATOR [employer]ACIT[employer]) Glucose, POC 106 70 - 199 mg/dL Blood 02/23/2024 8:21 AM [employer] 02/23/2024 8:21 AM [employer] us Renetta Jones MD PhD LAB POCT ORDERABLES - DEVICE Fi nal Result Performing Organization Address [facility] Co de Phone Number [facility] Department [place] [address] * (ABNORMAL) Potassium, whole blood (02/23/2024 6:38 AM IMPREGNATOR [employer]ACIT[employer]) Potassium, bld 5.3(H) 3.3 - 4.9 mmol/L Blood 02/23/2024 6:38 AM [employer] 02/23/2024 6:55 AM [employer]AC[employer] us Renetta Jones MD PhD LAB BLOOD ORDERABLES Final Resu lt Performing Organization Address [facility] de Phone Number [facility] [place] [address] * ECG 12 lead (02/23/2024 6:30 AM IMPREGNATOR E[employer]ROL[employer] CAPACIT[employer]) Ventricular Rate EKG/Min 57 BPM [facility] Atrial Rate 57 BPM [facility] MN-Interval (MSEC) 246 ms [facility] QRS-Interval (MSEC) 142 ms [facility] QT-Interval (MSEC) 464 ms [facility] QTc 451 ms [facility] P Lafe 65 degrees [facility] R Lafe -9 degrees [facility] T Lafe 20 degrees [facility] Diagnosis Sinus bradycardia with 1st degree A-V block Non-specific intra-ventricul ar conduction block Minimal voltage criteria for LVH, may be normal variant ( Collins product ) Abnormal ECG When compared with ECG of 27-JAN-2024 15:35, Sinus rhythm has replaced Atrial fibrillation QT has shortened Confirmed by JENNIFER BYRD M.D ([id number]) on 02/23/2024 1:27:04 PM [facility] 02/23/2024 6:30 AM [employer]ATOR [employer]ACIT[employer] 02/23/2024 1:27 PM [employer]REG[employer]ATOR [employer]ROL[employer]IC [employer]ACIT[employer] us Renetta Jones MD PhD ECG ORDERABLES Final Result [facility] * CT Abdomen Pelvis WO Contrast (02/23/2024 5:21 AM IMPREGNATOR ELECTROLYTIC [employer]ACITORS) Anatomical Region Laterality Modality Body N/A Computed Tomogra phy 02/23/2024 7:47 AM IMPREG[employer]ATOR [employer]ACIT[employer] Impressions 02/23/2024 7:47 AM [employer]REG[employer]ATOR [employer]ACIT[employer] 1. Interval placement of pigtail catheter within [...] Blake Bauer M.D. Narrative 02/23/2024 7:47 AM IMPREGNATOR [employer]IC [employer]ACITORS EXAMINATION: Computed tomography of the abdomen and [...] this noncontrast study. Marked atrophy of the crow kidneys. No hyperdense gallstones or biliary dilation. [...] this noncontrast study. Marked atrophy of the crow kidneys. No hyperdense gallstones or biliary dilation. [...] Result * (ABNORMAL) eGFR (02/23/2024 4:37 AM IMPREGNATOR [employer]LECTROLY[employer]IC CAPACITORS) eGFR 20(L) >=60 mL/min/1. 73 m2 Comment: [...] last reviewed 2020. Blood 02/23/2024 4:37 AM [employer] 02/23/2024 4:59 AM [employer]REG[employer]ATOR [employer] Rhoda LEE LAB BLOOD ORDERABLES Final Result [facility] Department [place] [address] * (ABNORMAL) Differential, auto (02/23/2024 4:37 AM [employer]REG[employer]ATOR [employer]ACIT[employer]) Neutrophil abs 2.5 1.5 - 6.5 K/cumm Imm gran abs 0.0 0.0 - 0.1 K/cumm [facility] Lymphocyte abs 0.2(L) 0.8 - 3.3 K/cumm [facility] Monocyte abs 0.2 0.2 - 0.8 K/cumm [facility] Eosinophil abs 0.0 0.0 - 0.5 K/cumm [facility] Basophil abs 0.0 0.0 - 0.1 K/cumm [facility] Neutrophil pct 85.3 % [facility] Comment: Interpretive Data Percent cell count reference ranges are not reported, since discordance with absolute values may lead to misinterpretation of CBC data. Current Interpretive Data was last revised on 2017. Imm gran pct 0.7 % [facility] Comment: Interpretive Data Percent cell count reference ranges are not reported, since discordance with absolute values may lead to misinterpretation of CBC data. Current Interpretive Data was last revised on 2017. Lymphocyte pct 6.5 % [facility] Comment: Interpretive Data Percent cell count reference ranges are not reported, since discordance with absolute values may lead to misinterpretation of CBC data. Current Interpretive Data was last revised on 2017. Monocyte pct 6.1 % [facility] Comment: Interpretive Data Percent cell count reference ranges are not reported, since discordance with absolute values may lead to misinterpretation of CBC data. Current Interpretive Data was last revised on 2017. Eosinophil pct 0.7 % [facility] Comment: Interpretive Data Percent cell count reference ranges are not reported, since discordance with absolute values may lead to misinterpretation of CBC data. Current Interpretive Data was last revised on 2017. Basophil pct 0.7 % [facility] Comment: Interpretive Data Percent cell count reference ranges are not reported, since discordance with absolute values may lead to misinterpretation of CBC data. Current Interpretive Data was last revised on 2017. Blood 02/23/2024 4:37 AM [employer] 02/23/2024 4:59 AM [employer] Rhoda LEE LAB BLOOD ORDERABLES Final Result [facility] Department [place] [address] * Tacrolimus level trough (02/23/2024 4:37 AM IMP[employer]ATOR [employer]IT[employer]) [facility] Tacrolimus trough 9.1 ng/mL Comment: Interpretive Data Testing performed by liquid chromatography-tandem mass spectrometry. Therapeutic concentrations vary depending on type of transplanted organ and time elapsed since transplant. Typical trough concentrations range from 5-15 ng/mL. This test was developed and its performance characteristics determined by the [facility] consistent with CLIA requirements. This test has not been cleared or approved by the [place] Food and Drug administration. Current interpretive data last reviewed 2019. Blood 02/23/2024 4:37 AM [employer] 02/23/2024 4:59 AM [employer]ATOR [employer]IT[employer] Rohda LEE LAB BLOOD ORDERABLES Final Result [facility] Department [place] [address] * (ABNORMAL) CBC with auto differential (02/23/2024 4:37 AM [employer]) [facility] WBC 2.9(L) 3.8 - 9.9 K/cumm Hgb 10.4(L) 13.0 - 17.5 g/dL [facility] Hct 31.2(L) 38.9 - 50.3 % [facility] Plt 106(L) 150 - 400 K/cumm [facility] MPV 9.8 9.1 - 12.3 fL [facility] RBC 3.09(L) 4.30 - 5.80 M/cumm [facility] MCV 101.0(H) 81.3 - 96.4 fL [facility] MCH 33.7(H) 27.1 - 33.3 pg [facility] MCHC 33.3 32.3 - 35.7 g/dL [facility] RDW CV 16.7(H) 11.1 - 14.9 % [facility] RDW SD 61.7(H) 35.7 - 48.1 fL [facility] NRBC abs 0.00 0.00 - 0.01 K/cumm [facility] Blood 02/23/2024 4:37 AM [employer] 02/23/2024 4:59 AM [employer] Rhoda LEE LAB BLOOD ORDERABLES Final Result Performing Organization Address City/[facility] Co de Phone Number [facility] [place] [address] * Magnesium (02/23/2024 4:37 AM IMP[employer]ATOR [employer]IT[employer]) [facility] Magnesium 2.0 1.4 - 2.5 mg/dL Blood 02/23/2024 4:37 AM [employer] 02/23/2024 4:59 AM [employer]ATOR [employer] Rhoda LEE LAB BLOOD ORDERABLES Final Result Performing Organization Address [facility] de Phone Number [facility] [place] [address] * (ABNORMAL) Renal function panel (02/23/2024 4:37 AM IMPREGNATOR [employer]ACIT[employer]) [facility] Sodium 141 135 - 145 mmol/L Potassium, pl 5.6(H) 3.3 - 4.9 mmol/L [facility] Chloride 108 97 - 110 mmol/L [facility] CO2 27 22 - 32 mmol/L [facility] Anion gap 6 2 - 15 mmol/L [facility] BUN 38(H) 6 - 25 mg/dL [facility] Creatinine 3.27(H) 0.80 - 1.30 mg/dL [facility] Glucose 86 70 - 199 mg/dL [facility] Comment: Interpretive Data Fasting glucose >/= 126 [...] 2022. Calcium 9.6 8.5 - 10.3 mg/dL [facility] Phosphorus, pl 4.2 2.3 - 4.5 mg/dL [facility] Albumin 3.7 3.5 - 5.0 g/dL [facility] Blood 02/23/2024 4:37 AM [employer] 02/23/2024 4:59 AM [employer]IT[employer] Rhoda LEE LAB BLOOD ORDERABLES Final Result Performing Organization Address City/[facility] Co de Phone Number [facility] Department [place] [address] * POCT glucose (02/22/2024 9:35 PM IMPREG[employer]ATOR [employer]ACIT[employer]) Pathologist [facility] Glucose, POC 136 70 - 199 mg/dL Blood 02/22/2024 9:35 PM [employer] 02/22/2024 9:35 PM [employer] Renetta Jones MD PhD LAB POCT ORDERABLES - DEVICE Fi nal Result Performing Organization Address [facility] Co de Phone Number [facility] [place] [address] * POCT glucose (02/22/2024 5:37 PM [employer]ATOR [employer]ACIT[employer]) Glucose, POC 134 70 - 199 mg/dL Blood 02/22/2024 5:37 PM [employer] 02/22/2024 5:37 PM [employer] Renetta Jones MD PhD LAB POCT ORDERABLES - DEVICE Fi nal Result Performing Organization Address [facility] de Phone Number [facility] [place] [address] * Cell Differential, Body Fluid (02/22/2024 2:26 PM IMPREG[employer]ATOR [employer]ACIT[employer]) [facility] Total cells diffed 100 cells Comment: Interpretive [...] Peritoneal [facility] Fluid 02/22/2024 2:26 PM [employer]IT[employer] 02/22/2024 2:38 PM [employer]ATOR [employer]IT[employer] Harrison Taylor MD LAB BODY FLUIDS AND STOOLS OR DERABLES Final Result Performing Organization Address [facility] Co de Phone Number [facility] [place] [address] * Cell Differential, Body Fluid (02/22/2024 2:26 PM IMP[employer]ATOR [employer]ACIT[employer]) Pathologist [facility] Total cells diffed 100 cells Comment: Interpretive Data Unless otherwise specified, the reference range and other method performance specifications have not been established for CSF/Body Fluid tests. The test results should be integrated into the clinical context for interpretation. Current interpretive data was last revised on 2018. Neutrophils, fld 4 % [facility] Lymphs, fld 79 % [facility] Monocyte, fld 17 % [facility] Specimen type, fld Peritoneal [facility] Fluid 02/22/2024 2:26 PM [employer]ATOR [employer]IT[employer] 02/22/2024 2:38 PM [employer]IT[employer] Harrison Taylor MD LAB BODY FLUIDS AND STOOLS OR DERABLES Final Result Performing Organization Address [facility] Co de Phone Number [facility] [place] [address] * (ABNORMAL) Cell count w/rflx diff, body fluid (02/22/2024 2:26 PM IMPREG[employer]ATOR [employer]ACIT[employer]) Specimen type, fld Peritoneal Color, fld [place] [facility] Clarity, fld Cloudy(A) Clear [facility] Nucleated cells, fld 83 /cumm [facility] Comment: Interpretive Data Unless otherwise specified, the reference range and other method performance specifications have not been established for CSF/Body Fluid tests. The test results should be integrated into the clinical context for interpretation. Current interpretive data was last revised on 2018. RBC, fld 21,315 /cumm [facility] Fluid 02/22/2024 2:26 PM [employer]IT[employer] 02/22/2024 2:38 PM [employer]REG[employer]ATOR [employer]ACIT[employer] Narrative [facility] - 02/22/2024 4:31 PM [employer] RLQ drain #2 us Harrison Taylor MD LAB BODY FLUIDS AND STOOLS OR DERABLES Final Result Performing Organization Address [facility] de Phone Number [facility] Department [place] [address] * (ABNORMAL) Cell count w/rflx diff, body fluid (02/22/2024 2:26 PM IMP[employer]ATOR [employer]ACIT[employer]) Specimen type, fld Peritoneal Color, fld Red [facility] Clarity, fld Turbid(A) Clear [facility] Nucleated cells, fld 350 /cumm [facility] Comment: Interpretive Data Unless otherwise specified, the reference range and other method performance specifications have not been established for CSF/Body Fluid tests. The test results should be integrated into the clinical context for interpretation. Current interpretive data was last revised on 2018. RBC, fld 606,638 /cumm [facility] Fluid 02/22/2024 2:26 PM [employer]ATOR [employer]IT[employer] 02/22/2024 2:38 PM [employer]ATOR [employer]ACITORS Narrative [facility] - 02/22/2024 4:31 PM [employer]IT[employer] RLQ us Harrison Taylor MD LAB BODY FLUIDS AND STOOLS OR DERABLES Final Result Performing Organization Address [facility] Co de Phone Number [facility] Department [place] [address] * Aerobic and anaerobic culture and gram stain Peritoneal fluid Abdominal, right lower quadrant (02/22/2024 2:26 PM IMPREG[employer]ATOR [employer]ACIT[employer]) Direct Specimen Exam Stain: Cytospin Gram stain shows: Rare polymorphonuclear leukocytes seen. No organisms seen. Report Final Report: No growth [facility] Peritoneal fluid (Abdominal, right lower quadrant) 02/22/2024 2:26 PM [employer]IT[employer] 02/22/2024 3:42 PM [employer]ATOR [employer]ACITORS Narrative [facility] - 02/25/2024 10:47 AM IMPREG[employer]ATOR [employer]ACITORS RLQ Drain #2 Testing performed by [facility] ([phone]) Specimens submitted from normally sterile body sites [...] MICROBIOLOGY - GENERAL OR DERABLES Final Result [facility] Department [place] [address] * Aerobic and anaerobic culture and gram stain Abscess Abdominal, right lower quadrant (02/22/2024 2:26 PM IMPREG[employer]ATOR [employer]ACIT[employer]) Direct Specimen Exam Stain: Rare polymorphonuclear leukocytes seen. No organisms seen. Report Final Report: No growth [facility] Abscess (Abdominal, right lower quadrant) 02/22/2024 2:26 PM [employer]IT[employer] 02/22/2024 3:41 PM [employer]ATOR [employer]ACITORS Narrative [facility] - 02/25/2024 10:48 AM [employer]IT[employer] Testing performed by [facility] ([phone]) Specimens submitted from normally sterile body sites [...] OR DERABLES Final Result Performing Organization Address [facility] de Phone Number [facility] [place] [address] * Creatinine, body fluid (02/22/2024 2:26 PM IMPREGNATOR [employer]ACITORS) Specimen type, fld Peritoneal Creatinine, fld 3.60 mg/dL [facility] Comment: The above specimen type is not [...] 2018. Chapter 43, Body Fluids, p. 925 Where Was it Filmed Test directory, Body Fluid Reference Intervals and/or Interpretative Information. [email or web address] Current Interpretive Data was last revised 2018. Fluid 02/22/2024 2:26 PM [employer]IT[employer] 02/22/2024 2:38 PM [employer]ATOR [employer]ACITORS Narrative [facility] - 02/22/2024 3:21 PM [employer]ATOR [employer]ACITORS RLQ Harrison Taylor MD LAB BODY FLUIDS AND STOOLS OR DERABLES Final Result Performing Organization Address [facility] de Phone Number [facility] [place] [address] * Creatinine, body fluid (02/22/2024 2:19 PM IMPREGNATOR [employer]ACIT[employer]) Specimen type, fld Peritoneal Creatinine, fld 3.43 mg/dL [facility] Comment: The above specimen type is not [...] 2018. Chapter 43, Body Fluids, p. 925 [employer] Test directory, Body Fluid Reference Intervals and/or Interpretative Information. [email or web address] Current Interpretive Data was last revised 2018. Fluid 02/22/2024 2:19 PM [employer]ATOR [employer]ACIT[employer] 02/22/2024 2:38 PM [employer]ATOR [employer]ACIT[employer] Narrative [facility] - 02/22/2024 8:43 PM [employer]AC[employer] RLQ Drain #2 Harrison Taylor MD LAB BODY FLUIDS AND STOOLS OR DERABLES Final Result Performing Organization Address [facility] Co de Phone Number [facility] Department [place] [address] * POCT glucose (02/22/2024 1:48 PM IMP[employer]ATOR [employer]ACIT[employer]) Glucose, POC 81 70 - 199 mg/dL Blood 02/22/2024 1:48 PM [employer]IT[employer] 02/22/2024 1:48 PM [employer]ATOR [employer]ACIT[employer] Renetta Jones MD PhD LAB POCT ORDERABLES - DEVICE Fi nal Result Performing Organization Address [facility] Co de Phone Number [facility] Department [place] [address] * IR Fluid Drain Soft Tissue (02/22/2024 1:14 PM IMP[employer]ATOR [employer]ACIT[employer]) Anatomical Region Laterality Modality Body N/A X-Ray Angiograph y 02/22/2024 4:41 PM [employer]IT[employer] Addenda Addendum by Harrison Taylor MD on 02/23/2024 1:55 PM [employer] This addendum is being placed after cell [...] Harrison Taylor M.D. Impressions 02/22/2024 4:51 PM [employer]IT[employer] Successful image guided right lower quadrant fluid [...] Harrison Taylor M.D. Narrative 02/22/2024 4:51 PM [employer]ATOR [employer]ACIT[employer] EXAMINATION: PERCUTANEOUS DRAINAGE (STD) HISTORY/INDICATION: 63-year-old male [...] was obtained. Prior to beginning the procedure, [place] Protocol was used to confirm the patient's [...] coiled within the collection before dilating to 12-Nigerian. A 12-Nigerian cope loop catheter was then advanced over [...] coiled within the collection before dilating to 12-Nigerian. A 12-Nigerian Cobra catheter was then advanced over the [...] was obtained. Prior to beginning the procedure, [place] Protocol was used to confirm the patient's [...] coiled within the collection before dilating to 12-Nigerian. A 12-Nigerian cope loop catheter was then advanced over [...] coiled within the collection before dilating to 12-Nigerian. A 12-Nigerian Cobra catheter was then advanced over the [...] signed by: Harrison Taylor M.D. [place]oda LEE [facility] [place]ED[place] Edited R esult - Final * Cell Differential, Body Fluid (02/22/2024 12:50 PM IMPREGNATOR [employer]ACIT[employer]) Total cells diffed 100 cells Comment: Interpretive Data Unless otherwise specified, the reference range and other method performance specifications have not been established for CSF/Body Fluid tests. The test results should be integrated into the clinical context for interpretation. Current interpretive data was last revised on 2018. Neutrophils, fld 1 % [facility] Lymphs, fld 95 % [facility] Monocyte, fld 4 % [facility] Specimen type, fld [facility]itoneal [facility] Fluid 02/22/2024 12:5 0 PM [employer]IT[employer] 02/22/2024 4:24 PM [employer]ATOR [employer]ACIT[employer] Renetta Jones MD PhD LAB BODY FLUIDS AND STOOLS IVETTEE RABBÁRBARA Final Result Performing Organization Address [facility] Co de Phone Number [facility] [place] [address] * (ABNORMAL) Cell count w/rflx diff, body fluid (02/22/2024 12:50 PM IMP[employer]ATOR [employer]ACIT[employer]) Specimen type, fld Peritoneal Color, fld [place] [facility] Clarity, fld Cloudy(A) Clear [facility] Nucleated cells, fld 44 /cumm [facility] Comment: Interpretive Data Unless otherwise specified, the reference range and other method performance specifications have not been established for CSF/Body Fluid tests. The test results should be integrated into the clinical context for interpretation. Current interpretive data was last revised on 2018. RBC, fld 2,832 /cumm [facility] Fluid 02/22/2024 12:5 0 PM [employer]IT[employer] 02/22/2024 4:24 PM [employer]ATOR [employer]ACITORS Narrative [facility] - 02/22/2024 5:35 PM [employer]IT[employer] RLQ drain 2 us Renetta Jones MD PhD LAB BODY FLUIDS AND STOOLS ORDDevora ESPAÑA Final Result Performing Organization Address City/[facility] Co de Phone Number [facility] Department [place] [address] * Creatinine, body fluid (02/22/2024 12:50 PM IMPREG[employer]ATOR [employer]ACIT[employer]) Specimen type, fld Unknown Creatinine, fld 3.51 mg/dL [facility] Comment: The above specimen type is not [...] 2018. Chapter 43, Body Fluids, p. 925 [employer] Test directory, Body Fluid Reference Intervals and/or Interpretative Information. [email or web address] Current Interpretive Data was last revised 2018. Fluid 02/22/2024 12:5 0 PM [employer]IT[employer] 02/22/2024 4:23 PM [employer]REG[employer]ATOR [employer]ACITORS [facility] 02/22/20[facility] 6:58 PM [employer]ATOR [employer]ACITORS RLQ drain 1 Renetta Jones MD PhD LAB BODY FLUIDS AND STOOLS THALIA ESPAÑA Final Result Performing Organization Address [facility]/ZIP Co de Phone Number [facility] Department [place] [address] * (ABNORMAL) Potassium, whole blood (02/22/2024 6:27 AM IMP[employer]ATOR [employer]ACIT[employer]) Potassium, bld 5.0(H) 3.3 - 4.9 mmol/L Comment:Reviewed. Blood 02/22/2024 6:27 AM [employer]ATOR [employer]IT[employer] 02/22/2024 6:36 AM [employer]ATOR [employer]ACIT[employer] Vannessa Hein TRANSPORTER [employer] LAB BLOOD ORDERABLES Fin al Result Performing Organization Address City/[facility]/ZIP Co de Phone Number [facility] Department [place] [address] * POCT glucose (02/22/2024 6:27 AM IMPREG[employer]ATOR [employer]ACIT[employer]) Glucose, POC 92 70 - 199 mg/dL Blood 02/22/2024 6:27 AM [employer]ATOR [employer]ACIT[employer] 02/22/2024 6:27 AM IMP[employer]ATOR [employer]ACIT[employer] us Renetta Jones MD PhD LAB POCT ORDERABLES - DEVICE Fi nal Result Performing Organization Address [facility] Co de Phone Number [facility] Department [place] [address] * (ABNORMAL) eGFR (02/22/2024 4:38 AM IMPREG[employer]ATOR [employer]ACIT[employer]) Pathologist [facility] eGFR 19(L) >=60 mL/min/1. 73 m2 Comment: [...] last reviewed 2020. Blood 02/22/2024 4:38 AM IMP[employer]ATOR [employer]ACITORS 02/22/2024 5:26 AM IMPREG[employer]ATOR [employer]ACIT[employer] us Rhoda LEE LAB BLOOD ORDERABLES Final Result Performing Organization Address City/[facility] Co de Phone Number [facility] [place] [address] * (ABNORMAL) Differential, auto (02/22/2024 4:38 AM IMPREGNATOR [employer]ACIT[employer]) Pathologist [facility] Neutrophil abs 2.6 1.5 - 6.5 K/cumm Imm gran abs 0.0 0.0 - 0.1 K/cumm [facility] Lymphocyte abs 0.2(L) 0.8 - 3.3 K/cumm [facility] Monocyte abs 0.2 0.2 - 0.8 K/cumm [facility] Eosinophil abs 0.0 0.0 - 0.5 K/cumm [facility] Basophil abs 0.0 0.0 - 0.1 K/cumm [facility] Neutrophil pct 83.7 % [facility] Comment: Interpretive Data Percent cell count reference ranges are not reported, since discordance with absolute values may lead to misinterpretation of CBC data. Current Interpretive Data was last revised on 2017. Imm gran pct 0.6 % [facility] Comment: Interpretive Data Percent cell count reference ranges are not reported, since discordance with absolute values may lead to misinterpretation of CBC data. Current Interpretive Data was last revised on 2017. Lymphocyte pct 6.7 % [facility] Comment: Interpretive Data Percent cell count reference ranges are not reported, since discordance with absolute values may lead to misinterpretation of CBC data. Current Interpretive Data was last revised on 2017. Monocyte pct 6.7 % [facility] Comment: Interpretive Data Percent cell count reference ranges are not reported, since discordance with absolute values may lead to misinterpretation of CBC data. Current Interpretive Data was last revised on 2017. Eosinophil pct 1.3 % [facility] Comment: Interpretive Data Percent cell count reference ranges are not reported, since discordance with absolute values may lead to misinterpretation of CBC data. Current Interpretive Data was last revised on 2017. Basophil pct 1.0 % [facility] Comment: Interpretive Data Percent cell count reference ranges are not reported, since discordance with absolute values may lead to misinterpretation of CBC data. Current Interpretive Data was last revised on 2017. Blood 02/22/2024 4:38 AM [employer]IT[employer] 02/22/2024 5:26 AM [employer]ATOR [employer]ACITORS Rhoda LEE LAB BLOOD ORDERABLES Final Result [facility] One [facility] Department [place] [address] * Tacrolimus level trough (02/22/2024 4:38 AM IMPREGNATOR [employer]ACIT[employer]) [facility] Tacrolimus trough 8.2 ng/mL Comment: Interpretive Data Testing performed by liquid chromatography-tandem mass spectrometry. Therapeutic concentrations vary depending on type of transplanted organ and time elapsed since transplant. Typical trough concentrations range from 5-15 ng/mL. This test was developed and its performance characteristics determined by the [facility] consistent with CLIA requirements. This test has not been cleared or approved by the [place] Food and Drug administration. Current interpretive data last reviewed 2019. Blood 02/22/2024 4:38 AM [employer] 02/22/2024 5:26 AM [employer] Rhoda LEE LAB BLOOD ORDERABLES Final Result [facility] Department [place] [address] * (ABNORMAL) CBC with auto differential (02/22/2024 4:38 AM [employer]) [facility] WBC 3.1(L) 3.8 - 9.9 K/cumm Hgb 10.8(L) 13.0 - 17.5 g/dL [facility] Hct 32.2(L) 38.9 - 50.3 % [facility] Plt 117(L) 150 - 400 K/cumm [facility] MPV 10.3 9.1 - 12.3 fL [facility] RBC 3.23(L) 4.30 - 5.80 M/cumm [facility] MCV 99.7(H) 81.3 - 96.4 fL [facility] MCH 33.4(H) 27.1 - 33.3 pg [facility] MCHC 33.5 32.3 - 35.7 g/dL [facility] RDW CV 16.9(H) 11.1 - 14.9 % [facility] RDW SD 62.2(H) 35.7 - 48.1 fL [facility] NRBC abs 0.00 0.00 - 0.01 K/cumm [facility] Blood 02/22/2024 4:38 AM [employer] 02/22/2024 5:26 AM [employer] Rhoda LEE LAB BLOOD ORDERABLES Final Result Performing Organization Address City/[facility]/ZIP Co de Phone Number [facility] [place] [address] * Magnesium (02/22/2024 4:38 AM [employer]) Pathologist [facility] Magnesium 1.9 1.4 - 2.5 mg/dL Blood 02/22/2024 4:38 AM [employer] 02/22/2024 5:26 AM [employer] Rhoda LEE LAB BLOOD ORDERABLES Final Result Performing Organization Address [facility] de Phone Number [facility] [place] [address] * (ABNORMAL) Renal function panel (02/22/2024 4:38 AM [employer]) Pathologist [facility] Sodium 140 135 - 145 mmol/L Potassium, pl 5.2(H) 3.3 - 4.9 mmol/L [facility] Chloride 107 97 - 110 mmol/L [facility] CO2 23 22 - 32 mmol/L [facility] Anion gap 10 2 - 15 mmol/L [facility] BUN 46(H) 6 - 25 mg/dL [facility] Creatinine 3.44(H) 0.80 - 1.30 mg/dL [facility] Glucose 94 70 - 199 mg/dL [facility] Comment: Interpretive Data Fasting glucose >/= 126 [...] 2022. Calcium 9.5 8.5 - 10.3 mg/dL [facility] Phosphorus, pl 4.5 2.3 - 4.5 mg/dL [facility] Albumin 3.6 3.5 - 5.0 g/dL [facility] Blood 02/22/2024 4:38 AM [employer] 02/22/2024 5:26 AM [employer] Rhoda LEE LAB BLOOD ORDERABLES Final Result [facility] [place] [address] * POCT glucose (02/21/2024 8:49 PM [employer]) Glucose, POC 107 70 - 199 mg/dL Blood 02/21/2024 8:49 PM [employer] 02/21/2024 8:49 PM [employer] Renetta Jones MD PhD LAB POCT ORDERABLES - DEVICE Fi nal Result Performing Organization Address City/[facility]/ZIP Co de Phone Number [facility] [place] [address] * POCT glucose (02/21/2024 5:26 PM [employer]) Glucose, POC 108 70 - 199 mg/dL Blood 02/21/2024 5:26 PM [employer] 02/21/2024 5:26 PM [employer] Renetta Jones MD PhD LAB POCT ORDERABLES - DEVICE Fi nal Result Performing Organization Address City/[facility] Co de Phone Number [facility] [place] [address] * POCT glucose (02/21/2024 2:08 PM [employer]) Glucose, POC 147 70 - 199 mg/dL Blood 02/21/2024 2:08 PM [employer] 02/21/2024 2:08 PM [employer] Renetta Jones MD PhD LAB POCT ORDERABLES - DEVICE Fi nal Result Performing Organization Address [facility] Co de Phone Number [facility] [place] [address] * (ABNORMAL) eGFR (02/21/2024 2:06 PM [employer]) Pathologist [facility] eGFR 20(L) >=60 mL/min/1. 73 m2 Comment: [...] last reviewed 2020. Blood 02/21/2024 2:06 PM [employer] 02/21/2024 2:24 PM [employer] us Rhoda LEE LAB BLOOD ORDERABLES Final Result Performing Organization Address City/[facility] Co de Phone Number [facility] Department [place] [address] * (ABNORMAL) Differential, auto (02/21/2024 2:06 PM [employer]) [facility] Neutrophil abs 3.3 1.5 - 6.5 K/cumm Imm gran abs 0.0 0.0 - 0.1 K/cumm [facility] Lymphocyte abs 0.2(L) 0.8 - 3.3 K/cumm [facility] Monocyte abs 0.2 0.2 - 0.8 K/cumm [facility] Eosinophil abs 0.0 0.0 - 0.5 K/cumm [facility] Basophil abs 0.0 0.0 - 0.1 K/cumm [facility] Neutrophil pct 86.3 % [facility] Comment: Interpretive Data Percent cell count reference ranges are not reported, since discordance with absolute values may lead to misinterpretation of CBC data. Current Interpretive Data was last revised on 2017. Imm gran pct 0.8 % [facility] Comment: Interpretive Data Percent cell count reference ranges are not reported, since discordance with absolute values may lead to misinterpretation of CBC data. Current Interpretive Data was last revised on 2017. Lymphocyte pct 4.3 % [facility] Comment: Interpretive Data Percent cell count reference ranges are not reported, since discordance with absolute values may lead to misinterpretation of CBC data. Current Interpretive Data was last revised on 2017. Monocyte pct 6.4 % [facility] Comment: Interpretive Data Percent cell count reference ranges are not reported, since discordance with absolute values may lead to misinterpretation of CBC data. Current Interpretive Data was last revised on 2017. Eosinophil pct 1.1 % [facility] Comment: Interpretive Data Percent cell count reference ranges are not reported, since discordance with absolute values may lead to misinterpretation of CBC data. Current Interpretive Data was last revised on 2017. Basophil pct 1.1 % [facility] Comment: Interpretive Data Percent cell count reference ranges are not reported, since discordance with absolute values may lead to misinterpretation of CBC data. Current Interpretive Data was last revised on 2017. Blood 02/21/2024 2:06 PM [employer] 02/21/2024 2:24 PM [employer] us Rhoda LEE LAB BLOOD ORDERABLES Final Result [facility] Department [place] [address] * (ABNORMAL) CBC with auto differential (02/21/2024 2:06 PM [employer]) Pathologist [facility] WBC 3.8 3.8 - 9.9 K/cumm Hgb 10.9(L) 13.0 - 17.5 g/dL [facility] Hct 32.3(L) 38.9 - 50.3 % [facility] Plt 123(L) 150 - 400 K/cumm [facility] MPV 10.0 9.1 - 12.3 fL [facility] RBC 3.26(L) 4.30 - 5.80 M/cumm [facility] MCV 99.1(H) 81.3 - 96.4 fL [facility] MCH 33.4(H) 27.1 - 33.3 pg [facility] MCHC 33.7 32.3 - 35.7 g/dL [facility] RDW CV 17.0(H) 11.1 - 14.9 % [facility] RDW SD 61.9(H) 35.7 - 48.1 fL [facility] NRBC abs 0.00 0.00 - 0.01 K/cumm [facility] Blood 02/21/2024 2:06 PM [employer] 02/21/2024 2:24 PM [employer] us Rhoda LEE LAB BLOOD ORDERABLES Final Result [facility] Department [place] [address] * Protime-INR (02/21/2024 2:06 PM [employer]) Pathologist [facility] PT 12.0 9.7 - 13.0 sec INR 1.11 0.90 - 1.20 [facility] Comment: Interpretive data Oral anticoagulant therapeutic ranges: Venous thromboembolism prophylaxis or treatment: 2.0-3.0 CARDIOLOGY Standard range: 2.0-3.0 High-intensity range: 2.5-3.5 Refer to indication-specific guidelines for appropriate target ranges for prosthetic heart valve replacement. Current interpretive data was last revised on 2019. Blood 02/21/2024 2:06 PM [employer] 02/21/2024 2:24 PM [employer] Rhoda LEE LAB BLOOD ORDERABLES Final Result Performing Organization Address City/[facility] Co de Phone Number [facility] [place] [address] * Magnesium (02/21/2024 2:06 PM [employer]) Pathologist [facility] Magnesium 1.9 1.4 - 2.5 mg/dL Blood 02/21/2024 2:06 PM [employer] 02/21/2024 2:24 PM [employer] Rhoda Flores HI LAB BLOOD ORDERABLES Final Result Performing Organization Address [facility] Phone Number [facility] [place] [address] * (ABNORMAL) Renal function panel (02/21/2024 2:06 PM [employer]) Sodium 140 135 - 145 mmol/L Potassium, pl 4.9 3.3 - 4.9 mmol/L [facility] Chloride 107 97 - 110 mmol/L [facility] CO2 23 22 - 32 mmol/L [facility] Anion gap 10 2 - 15 mmol/L [facility] BUN 45(H) 6 - 25 mg/dL [facility] Creatinine 3.25(H) 0.80 - 1.30 mg/dL [facility] Glucose 145 70 - 199 mg/dL [facility] Comment: Interpretive Data Fasting glucose >/= 126 [...] 2022. Calcium 9.4 8.5 - 10.3 mg/dL [facility] Phosphorus, pl 4.2 2.3 - 4.5 mg/dL [facility] Albumin 3.7 3.5 - 5.0 g/dL [facility] Blood 02/21/2024 2:06 PM [employer] 02/21/2024 2:24 PM [employer] us Rhoda LEE LAB BLOOD ORDERABLES Final Result [facility] Department [place] [address] * ECG 12 lead (02/17/2024 4:29 PM [employer]) us Marian Merino MD ECG ORDERABLES Edited Res ult - Final * CT Abdomen Pelvis WO Contrast (02/17/2024 11:48 AM [employer]) Anatomical Region Laterality Modality Body N/A Computed Tomogra phy 02/17/2024 12:1 1 PM [employer] Impressions 02/17/2024 12:37 PM [employer] 1. Postsurgical changes of prior right lower [...] Kathy Turpin M.D. Narrative 02/17/2024 12:37 PM [employer] EXAMINATION: Computed tomography of the abdomen and [...] in the urinary bladder without hydronephrosis. 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 Electronically signed by: Kathy Turipn M.D. us Ayush Galvez MD IMG CT PROCEDURES Final Res ult * (ABNORMAL) eGFR (02/17/2024 10:25 AM [employer]) eGFR 23(L) >=60 mL/min/1. 73 m2 Comment: [...] reviewed 2020. Blood 02/17/2024 10:2 5 AM [employer] 02/17/2024 10:57 AM [employer] us Jack Morrison MD LAB BLOOD ORDERABLES Final R esult [facility] Department [place] [address] * (ABNORMAL) Differential, auto (02/17/2024 10:25 AM [employer]) Pathologist [facility] Neutrophil abs 3.9 1.5 - 6.5 K/cumm Imm gran abs 0.0 0.0 - 0.1 K/cumm [facility] Lymphocyte abs 0.2(L) 0.8 - 3.3 K/cumm [facility] Monocyte abs 0.2 0.2 - 0.8 K/cumm [facility] Eosinophil abs 0.1 0.0 - 0.5 K/cumm [facility] Basophil abs 0.1 0.0 - 0.1 K/cumm [facility] Neutrophil pct 86.9 % [facility] Comment: Interpretive Data Percent cell count reference ranges are not reported, since discordance with absolute values may lead to misinterpretation of CBC data. Current Interpretive Data was last revised on 2017. Imm gran pct 0.7 % [facility] Comment: Interpretive Data Percent cell count reference ranges are not reported, since discordance with absolute values may lead to misinterpretation of CBC data. Current Interpretive Data was last revised on 2017. Lymphocyte pct 3.8 % [facility] Comment: Interpretive Data Percent cell count reference ranges are not reported, since discordance with absolute values may lead to misinterpretation of CBC data. Current Interpretive Data was last revised on 2017. Monocyte pct 5.1 % [facility] Comment: Interpretive Data Percent cell count reference ranges are not reported, since discordance with absolute values may lead to misinterpretation of CBC data. Current Interpretive Data was last revised on 2017. Eosinophil pct 2.2 % [facility] Comment: Interpretive Data Percent cell count reference ranges are not reported, since discordance with absolute values may lead to misinterpretation of CBC data. Current Interpretive Data was last revised on 2017. Basophil pct 1.3 % [facility] Comment: Interpretive Data Percent cell count reference ranges are not reported, since discordance with absolute values may lead to misinterpretation of CBC data. Current Interpretive Data was last revised on 2017. Blood 02/17/2024 10:2 5 AM [employer] 02/17/2024 10:57 AM [employer] us Jack Morrison MD LAB BLOOD ORDERABLES Final R esult [facility] One [facility] Department [place] [address] * (ABNORMAL) CBC with auto differential (02/17/2024 10:25 AM [employer]) WBC 4.5 3.8 - 9.9 K/cumm Hgb 11.4(L) 13.0 - 17.5 g/dL [facility] Hct 34.8(L) 38.9 - 50.3 % [facility] Plt 144(L) 150 - 400 K/cumm [facility] MPV 10.3 9.1 - 12.3 fL [facility] RBC 3.43(L) 4.30 - 5.80 M/cumm [facility] MCV 101.5(H) 81.3 - 96.4 fL [facility] MCH 33.2 27.1 - 33.3 pg [facility] MCHC 32.8 32.3 - 35.7 g/dL [facility] RDW CV 17.3(H) 11.1 - 14.9 % [facility] RDW SD 64.6(H) 35.7 - 48.1 fL [facility] NRBC abs 0.00 0.00 - 0.01 K/cumm [facility] Blood 02/17/2024 10:2 5 AM [employer] 02/17/2024 10:57 AM [employer] Jack Morrison MD LAB BLOOD ORDERABLES Final R esult Performing Organization Address [facility] de Phone Number [facility] [place] [address] * Tacrolimus level random (02/17/2024 10:25 AM [employer]) [facility] Tacrolimus random 2.4 ng/mL Comment: Interpretive Data Testing performed by liquid chromatography-tandem mass spectrometry. Therapeutic concentrations vary depending on type of transplanted organ and time elapsed since transplant. Typical trough concentrations range from 5-15 ng/mL. This test was developed and its performance characteristics determined by the [facility] consistent with CLIA requirements. This test has not been cleared or approved by the [place] Food and Drug administration. Current interpretive data last reviewed 2019. Blood 02/17/2024 10:2 5 AM [employer] 02/17/2024 10:57 AM [employer] Jack Morrison MD LAB BLOOD ORDERABLES Final R [facility] Performing Organization Address [facility] de Phone Number [facility] [place] [address] * Hepatitis B (HBV) DNA PCR, quantitative Blood (02/17/2024 10:25 AM [employer]) [facility] HBV DNA Result Not Detected [facility] Comment: The quantifiable range of this assay is 10 IU/mL to 1,000,000,000 IU/mL (1.00 log IU/mL to 9.00 log IU/mL). Testing was performed by the [facility] [employer]00 HBV Test version 2.0 ([employer] Testing performed at [facility] Current Interpretive Data was last revised on 2020. Blood 02/17/2024 10:2 5 AM [employer] 02/17/2024 11:20 AM [employer] Jack Morrison MD LAB MICROBIOLOGY - GENERAL O RDERABLES Final Result Performing Organization Address [facility] de Phone Number [facility] [place] [address] [facility] * HIV-1 RNA PCR, quantitative Blood (02/17/2024 10:25 AM [employer]) [facility] HIV-1 RNA Not Detected [facility] Comment: The quantifiable range of this assay is 20 copies/mL to 10,000,000 copies/mL (1.30 log copies/mL to 7.00 log copies/mL). Testing was performed by the [employer] [employer] HIV-1 Test([employer] Testing performed at [facility] Current Interpretive Data was last revised on 2020. Blood 02/17/2024 10:2 5 AM [employer] 02/17/2024 11:20 AM [employer] Result [facility] Jack Morrison MD LAB MICROBIOLOGY - GENERAL O RDERABLES Final Result Performing Organization Address [facility] [place] [address] [facility] * Hepatitis C (HCV) RNA PCR, quantitative Blood (02/17/2024 10:25 AM [employer]) [facility] HCV RNA result Not Detected [facility] Comment: The quantifiable range of this assay is 15 IU/mL to 100,000,000 IU/mL (1.18 log IU/mL to 8.00 log IU/mL). Testing was performed by the [facility] [employer] HCV Test ([employer] Testing performed at [facility] Current Interpretive Data was last revised on 2020 Blood 02/17/2024 10:2 5 AM [employer] 02/17/2024 11:20 AM [employer] Jack Morrison MD LAB MICROBIOLOGY - GENERAL O RDERABLES Final Result Performing Organization Address City/[facility] Co de Phone Number [facility] [place] [address] [facility] * Magnesium (02/17/2024 10:25 AM IMP[employer]) Pathologist [facility] Magnesium 1.7 1.4 - 2.5 mg/dL Blood 02/17/2024 10:2 5 AM [employer] 02/17/2024 10:57 AM [employer] Jack Morrison MD LAB BLOOD ORDERABLES Final R esult Performing Organization Address [facility] de Phone Number [facility] [place] [address] * (ABNORMAL) Renal function panel (02/17/2024 10:25 AM IMP[employer]) Pathologist [facility] Sodium 142 135 - 145 mmol/L Potassium, pl 5.0(H) 3.3 - 4.9 mmol/L [facility] Chloride 107 97 - 110 mmol/L [facility] CO2 21(L) 22 - 32 mmol/L [facility] Anion gap 14 2 - 15 mmol/L [facility] BUN 48(H) 6 - 25 mg/dL [facility] Creatinine 2.98(H) 0.80 - 1.30 mg/dL [facility] Glucose 79 70 - 199 mg/dL [facility] Comment: Interpretive Data Fasting glucose >/= 126 [...] 2022. Calcium 10.0 8.5 - 10.3 mg/dL [facility] Phosphorus, pl 3.2 2.3 - 4.5 mg/dL [facility] Albumin 3.8 3.5 - 5.0 g/dL [facility] Blood 02/17/2024 10:2 5 AM [employer] 02/17/2024 10:57 AM [employer] us Jack oMrrison MD LAB BLOOD ORDERABLES Final R esult [facility] Department [place] [address] * (ABNORMAL) eGFR (02/11/2024 9:00 AM [employer]) eGFR 19(L) >=60 mL/min/1. 73 m2 Comment: [...] last reviewed 2020. Blood 02/11/2024 9:00 AM [employer] 02/11/2024 11:51 AM [employer] us Rosalie Velásquez NP LAB BLOOD ORDERABLES Final Result [facility] [place] [address] * (ABNORMAL) Differential, auto (02/11/2024 9:00 AM [employer]) Neutrophil abs 4.6 1.5 - 6.5 K/cumm Imm gran abs 0.0 0.0 - 0.1 K/cumm [facility] Lymphocyte abs 0.2(L) 0.8 - 3.3 [facility] Monocyte abs 0.2 0.2 - 0.8 K/cumm [facility] Eosinophil abs 0.1 0.0 - 0.5 K/cumm [facility] Basophil abs 0.1 0.0 - 0.1 K/cumm [facility] Neutrophil pct 89.6 % [facility] Comment: Interpretive Data Percent cell count reference ranges are not reported, since discordance with absolute values may lead to misinterpretation of CBC data. Current Interpretive Data was last revised on 2017. Imm gran pct 0.6 % [facility] Comment: Interpretive Data Percent cell count reference ranges are not reported, since discordance with absolute values may lead to misinterpretation of CBC data. Current Interpretive Data was last revised on 2017. Lymphocyte pct 3.3 % [facility] Comment: Interpretive Data Percent cell count reference ranges are not reported, since discordance with absolute values may lead to misinterpretation of CBC data. Current Interpretive Data was last revised on 2017. Monocyte pct 3.9 % [facility] Comment: Interpretive Data Percent cell count reference ranges are not reported, since discordance with absolute values may lead to misinterpretation of CBC data. Current Interpretive Data was last revised on 2017. Eosinophil pct 1.6 % [facility] Comment: Interpretive Data Percent cell count reference ranges are not reported, since discordance with absolute values may lead to misinterpretation of CBC data. Current Interpretive Data was last revised on 2017. Basophil pct 1.0 % [facility] Comment: Interpretive Data Percent cell count reference ranges are not reported, since discordance with absolute values may lead to misinterpretation of CBC data. Current Interpretive Data was last revised on 2017. Blood 02/11/2024 9:00 AM [employer] 02/11/2024 11:48 AM [employer] Rosalie Velásquez [facility] LAB BLOOD ORDERABLES Final Result Performing Organization Address [facility] de Phone Number [facility] Department [place] [address] * Tacrolimus level trough (02/11/2024 9:00 AM IMP[employer]ATOR [employer]) [facility] Tacrolimus trough 7.8 ng/mL Comment: Interpretive Data Testing performed by liquid chromatography-tandem mass spectrometry. Therapeutic concentrations vary depending on type of transplanted organ and time elapsed since transplant. Typical trough concentrations range from 5-15 ng/mL. This test was developed and its performance characteristics determined by the [facility] consistent with CLIA requirements. This test has not been cleared or approved by the US Food and Drug administration. Current interpretive data last reviewed 2019. Blood 02/11/2024 9:00 AM [employer] 02/11/2024 11:48 AM [employer] Rosalie Velásquez NP LAB BLOOD ORDERABLES Final Result Performing Organization Address [facility] de Phone Number [facility] [place] [address] * (ABNORMAL) CBC with auto differential (02/11/2024 9:00 AM IMPREG[employer]ATOR [employer]) [facility] WBC 5.1 3.8 - 9.9 K/cumm Hgb 10.0(L) 13.0 - 17.5 g/dL [facility] Hct 30.9(L) 38.9 - 50.3 % [facility] Plt 168 150 - 400 K/cumm [facility] MPV 9.9 9.1 - 12.3 fL [facility] RBC 2.94(L) 4.30 - 5.80 M/cumm [facility] MCV 105.1(H) 81.3 - 96.4 fL [facility] MCH 34.0(H) 27.1 - 33.3 pg [facility] MCHC 32.4 32.3 - 35.7 g/dL [facility] RDW CV 18.3(H) 11.1 - 14.9 % [facility] RDW SD 70.2(H) 35.7 - 48.1 fL [facility] NRBC abs 0.00 0.00 - 0.01 K/cumm [facility] Blood 02/11/2024 9:00 AM [employer] 02/11/2024 11:48 AM [employer] Rosalie Velásquez TRANSPORTER RADIOLOGY LAB BLOOD ORDERABLES Final Result [facility] Department [place] [address] * Magnesium (02/11/2024 9:00 AM IMPREG[employer]ATOR [employer]) [facility] Magnesium 1.9 1.4 - 2.5 mg/dL Blood 02/11/2024 9:00 AM [employer] 02/11/2024 11:48 AM [employer] Rosalie Velásquez TRANSPORTER RADIOLOGY LAB BLOOD ORDERABLES Final Result Performing Organization Address City/[facility] Co de Phone Number [facility] [place] [address] * (ABNORMAL) Renal function panel (02/11/2024 9:00 AM IMPREG[employer]ATOR [employer]) [facility] Sodium 141 135 - 145 mmol/L Potassium, pl 4.9 3.3 - 4.9 mmol/L [facility] Chloride 105 97 - 110 mmol/L [facility] CO2 25 22 - 32 mmol/L [facility] Anion gap 11 2 - 15 mmol/L [facility] BUN 61(H) 6 - 25 mg/dL [facility] Creatinine 3.49(H) 0.80 - 1.30 mg/dL [facility] Glucose 103 70 - 199 mg/dL [facility] Comment: Interpretive Data Fasting glucose >/= 126 [...] 2022. Calcium 9.8 8.5 - 10.3 mg/dL [facility] Phosphorus, pl 4.6(H) 2.3 - 4.5 mg/dL [facility] Albumin 3.7 3.5 - 5.0 g/dL [facility] Blood 02/11/2024 9:00 AM [employer] 02/11/2024 11:48 AM [employer] us Rosalie Velásquez NP LAB BLOOD ORDERABLES Final Result [facility] One [facility] Department [place] [address] * CT Abdomen Pelvis WO Contrast (02/09/2024 3:42 PM IMP[employer]) Anatomical Region Laterality Modality Body N/A Computed Tomogra phy 02/09/2024 4:37 PM [employer] Impressions 02/09/2024 4:44 PM [employer] Postsurgical changes of right iliac fossa kidney [...] Mohsen Vallejo M.D. Narrative 02/09/2024 4:44 PM [employer] EXAMINATION: Computed tomography of the abdomen and [...] ductal dilatation. Normal spleen, adrenals, pancreas. Atrophic crow kidneys. No stones or hydronephrosis of the crow kidneys. Postsurgical changes of right iliac fossa [...] ductal dilatation. Normal spleen, adrenals, pancreas. Atrophic crow kidneys. No stones or hydronephrosis of the crow kidneys. Postsurgical changes of right iliac fossa [...] were discussed with SAURAV Yeung, by Dr. Cenra on 02/09/24 at 4:36 PM. Dictated by: Amparo Cerna MD The radiology attending physician has personally reviewed this study, and had reviewed and/or edited this written report and agrees with it. Electronically signed by: Mohsen Vallejo M.D. Vikki Nowak NP IMG CT PROCEDURES Final Resul t * Creatinine, body fluid (02/09/2024 3:29 PM [employer]) Specimen type, fld Peritoneal Creatinine, fld 4.16 mg/dL [facility] Comment: The above specimen type is not [...] 2018. Chapter 43, Body Fluids, p. 925 Where Was it Filmed Test directory, Body Fluid Reference Intervals and/or Interpretative Information. [email or web address] Current Interpretive Data was last revised 2018. Fluid 02/09/2024 3:29 PM [employer] 02/09/2024 6:15 PM [employer] Vikki Nowak NP LAB BODY FLUIDS AND STOOLS OR DERABLES Final Result Performing Organization Address [facility] Co de Phone Number [facility] [place] [address] * (ABNORMAL) eGFR (02/09/2024 9:00 AM IMPREG[employer]ATOR [employer]) Pathologist [facility] eGFR 16(L) >=60 mL/min/1. 73 m2 Comment: [...] last reviewed 2020. Blood 02/09/2024 9:00 AM [employer] 02/09/2024 12:18 PM [employer]REG[employer]ATOR [employer] us Notinfile Unknown LAB BLOOD ORDERABLES Final Res ult Performing Organization Address [facility] Co de Phone Number [facility] Department [place] [address] * (ABNORMAL) Differential, auto (02/09/2024 9:00 AM IMPREG[employer]ATOR [employer]) Pathologist [facility] Neutrophil abs 4.5 1.5 - 6.5 K/cumm Imm gran abs 0.0 0.0 - 0.1 K/cumm [facility] Lymphocyte abs 0.1(L) 0.8 - 3.3 K/cumm [facility] Monocyte abs 0.2 0.2 - 0.8 K/cumm [facility] Eosinophil abs 0.1 0.0 - 0.5 K/cumm [facility] Basophil abs 0.1 0.0 - 0.1 K/cumm [facility] Neutrophil pct 89.8 % [facility] Comment: Interpretive Data Percent cell count reference ranges are not reported, since discordance with absolute values may lead to misinterpretation of CBC data. Current Interpretive Data was last revised on 2017. Imm gran pct 0.2 % [facility] Comment: Interpretive Data Percent cell count reference ranges are not reported, since discordance with absolute values may lead to misinterpretation of CBC data. Current Interpretive Data was last revised on 2017. Lymphocyte pct 2.8 % [facility] Comment: Interpretive Data Percent cell count reference ranges are not reported, since discordance with absolute values may lead to misinterpretation of CBC data. Current Interpretive Data was last revised on 2017. Monocyte pct 4.2 % [facility] Comment: Interpretive Data Percent cell count reference ranges are not reported, since discordance with absolute values may lead to misinterpretation of CBC data. Current Interpretive Data was last revised on 2017. Eosinophil pct 2.0 % [facility] Comment: Interpretive Data Percent cell count reference ranges are not reported, since discordance with absolute values may lead to misinterpretation of CBC data. Current Interpretive Data was last revised on 2017. Basophil pct 1.0 % [facility] Comment: Interpretive Data Percent cell count reference ranges are not reported, since discordance with absolute values may lead to misinterpretation of CBC data. Current Interpretive Data was last revised on 2017. Blood 02/09/2024 9:00 AM [employer] 02/09/2024 11:59 AM [employer] us Notinfile Unknown LAB BLOOD ORDERABLES Final Res ult [facility] Department [place] [address] * Tacrolimus level trough (02/09/2024 9:00 AM IMPREG[employer]ATOR [employer]) Pathologist [facility] Tacrolimus trough 7.5 ng/mL Comment: Interpretive Data Testing performed by liquid chromatography-tandem mass spectrometry. Therapeutic concentrations vary depending on type of transplanted organ and time elapsed since transplant. Typical trough concentrations range from 5-15 ng/mL. This test was developed and its performance characteristics determined by the [facility] consistent with CLIA requirements. This test has not been cleared or approved by the US Food and Drug administration. Current interpretive data last reviewed 2019. Blood 02/09/2024 9:00 AM [employer] 02/09/2024 12:01 PM [employer] us Notinfile Unknown LAB BLOOD ORDERABLES Final Res ult [facility] One [facility] Department [place] [address] * (ABNORMAL) CBC with auto differential (02/09/2024 9:00 AM IMPREG[employer]ATOR [employer]) WBC 5.0 3.8 - 9.9 K/cumm Hgb 9.7(L) 13.0 - 17.5 g/dL [facility] Hct 30.2(L) 38.9 - 50.3 % [facility] Plt 163 150 - 400 K/cumm [facility] MPV 10.4 9.1 - 12.3 fL [facility] RBC 2.91(L) 4.30 - 5.80 M/cumm [facility] MCV 103.8(H) 81.3 - 96.4 fL [facility] MCH 33.3 27.1 - 33.3 pg [facility] MCHC 32.1(L) 32.3 - 35.7 g/dL [facility] RDW CV 18.4(H) 11.1 - 14.9 % [facility] RDW SD 69.5(H) 35.7 - 48.1 fL [facility] NRBC abs 0.00 0.00 - 0.01 K/cumm [facility] Blood 02/09/2024 9:00 AM [employer] 02/09/2024 11:59 AM IMPREG[employer] us Notinfile Unknown LAB BLOOD ORDERABLES Final Res ult [facility] One [facility] Department [place] [address] * Magnesium (02/09/2024 9:00 AM IMPREGNATOR [employer]) Pathologist [facility] Magnesium 2.0 1.4 - 2.5 mg/dL Blood 02/09/2024 9:00 AM [employer] 02/09/2024 11:59 AM IMPREG[employer]ATOR [employer] us Notinfile Unknown LAB BLOOD ORDERABLES Final Res ult Performing Organization Address [facility] Co de Phone Number [facility] One [facility] [place] [address] * (ABNORMAL) Renal function panel (02/09/2024 9:00 AM IMPREGNATOR [employer]ACIT[employer]) [facility] Sodium 143 135 - 145 mmol/L Potassium, pl 4.6 3.3 - 4.9 mmol/L [facility] Chloride 104 97 - 110 mmol/L [facility] CO2 27 22 - 32 mmol/L [facility] Anion gap 12 2 - 15 mmol/L [facility] BUN 60(H) 6 - 25 mg/dL [facility] Creatinine 3.91(H) 0.80 - 1.30 mg/dL [facility] Glucose 129 70 - 199 mg/dL [facility] Comment: Interpretive Data Fasting glucose >/= 126 [...] 2022. Calcium 9.9 8.5 - 10.3 mg/dL [facility] Phosphorus, pl 4.5 2.3 - 4.5 mg/dL [facility] Albumin 3.7 3.5 - 5.0 g/dL [facility] Blood 02/09/2024 9:00 AM [employer] 02/09/2024 11:59 AM IMPREG[employer]ATOR [employer] us Notinfile Unknown LAB BLOOD ORDERABLES Final Res ult Performing Organization Address [facility] Co de Phone Number [facility] [place] [address] * (ABNORMAL) eGFR (02/04/2024 8:52 AM IMPREG[employer]ATOR [employer]) eGFR 17(L) >=60 mL/min/1. 73 m2 Comment: [...] last reviewed 2020. Blood 02/04/2024 8:52 AM [employer] 02/04/2024 1:15 PM IMPREG[employer]ATOR [employer] us Notinfile Unknown LAB BLOOD ORDERABLES Final Res ult Performing Organization Address City/[facility]/ZIP Co de Phone Number [facility] Department [place] [address] * (ABNORMAL) Differential, auto (02/04/2024 8:52 AM IMPREGNATOR [employer]) Neutrophil abs 6.1 1.5 - 6.5 K/cumm Imm gran abs 0.0 0.0 - 0.1 K/cumm [facility] Lymphocyte abs 0.1(L) 0.8 - 3.3 K/cumm [facility] Monocyte abs 0.4 0.2 - 0.8 K/cumm [facility] Eosinophil abs 0.1 0.0 - 0.5 K/cumm [facility] Basophil abs 0.0 0.0 - 0.1 K/cumm [facility] Neutrophil pct 90.2 % [facility] Comment: Interpretive Data Percent cell count reference ranges are not reported, since discordance with absolute values may lead to misinterpretation of CBC data. Current Interpretive Data was last revised on 2017. Imm gran pct 0.6 % [facility] Comment: Interpretive Data Percent cell count reference ranges are not reported, since discordance with absolute values may lead to misinterpretation of CBC data. Current Interpretive Data was last revised on 2017. Lymphocyte pct 1.9 % [facility] Comment: Interpretive Data Percent cell count reference ranges are not reported, since discordance with absolute values may lead to misinterpretation of CBC data. Current Interpretive Data was last revised on 2017. Monocyte pct 5.4 % [facility] Comment: Interpretive Data Percent cell count reference ranges are not reported, since discordance with absolute values may lead to misinterpretation of CBC data. Current Interpretive Data was last revised on 2017. Eosinophil pct 1.5 % [facility] Comment: Interpretive Data Percent cell count reference ranges are not reported, since discordance with absolute values may lead to misinterpretation of CBC data. Current Interpretive Data was last revised on 2017. Basophil pct 0.4 % [facility] Comment: Interpretive Data Percent cell count reference ranges are not reported, since discordance with absolute values may lead to misinterpretation of CBC data. Current Interpretive Data was last revised on 2017. Blood 02/04/2024 8:52 AM [employer]ATOR [employer] 02/04/2024 1:09 PM IMPREG[employer]ATOR [employer] us Notinfile Unknown LAB BLOOD ORDERABLES Final Res ult [facility] Department [place] [address] * Tacrolimus level trough (02/04/2024 8:52 AM IMPREGNATOR [employer]IT[employer]) [facility] Tacrolimus trough 7.8 ng/mL Comment: Interpretive Data Testing performed by liquid chromatography-tandem mass spectrometry. Therapeutic concentrations vary depending on type of transplanted organ and time elapsed since transplant. Typical trough concentrations range from 5-15 ng/mL. This test was developed and its performance characteristics determined by the [facility] consistent with CLIA requirements. This test has not been cleared or approved by the [place] Food and Drug administration. Current interpretive data last reviewed 2019. Blood 02/04/2024 8:52 AM [employer] 02/04/2024 1:09 PM IMPREGNATOR [employer]IT[employer] us Notinfile Unknown LAB BLOOD ORDERABLES Final Res ult Performing Organization Address [facility] de Phone Number [facility] [place] [address] * (ABNORMAL) CBC with auto differential (02/04/2024 8:52 AM IMPREGNATOR [employer]IT[employer]) [facility] WBC 6.8 3.8 - 9.9 K/cumm Hgb 9.1(L) 13.0 - 17.5 g/dL [facility] Hct 27.6(L) 38.9 - 50.3 % [facility] Plt 141(L) 150 - 400 K/cumm [facility] MPV 10.8 9.1 - 12.3 fL [facility] RBC 2.71(L) 4.30 - 5.80 M/cumm [facility] MCV 101.8(H) 81.3 - 96.4 fL [facility] MCH 33.6(H) 27.1 - 33.3 pg [facility] MCHC 33.0 32.3 - 35.7 g/dL [facility] RDW CV 18.4(H) 11.1 - 14.9 % [facility] RDW SD 67.1(H) 35.7 - 48.1 fL [facility] NRBC abs 0.00 0.00 - 0.01 K/cumm [facility] Blood 02/04/2024 8:52 AM [employer] 02/04/2024 1:09 PM [employer] us Notinfile Unknown LAB BLOOD ORDERABLES Final Res ult Performing Organization Address [facility] de Phone Number [facility] Department [place] [address] * Magnesium (02/04/2024 8:52 AM IMPREGNATOR [employer]) Magnesium 2.2 1.4 - 2.5 mg/dL Blood 02/04/2024 8:52 AM [employer] 02/04/2024 1:07 PM [employer] us Notinfile Unknown LAB BLOOD ORDERABLES Final Res ult Performing Organization Address [facility] de Phone Number [facility] Department [place] [address] * Creatinine, body fluid (02/04/2024 8:52 AM IMPREGNATOR [employer]IT[employer]) Specimen type, fld CONSTANZA FLUID. PG Creatinine, fld 3.53 mg/dL [facility] Comment: The above specimen type is not [...] 2018. Chapter 43, Body Fluids, p. 925 [employer] Test directory, Body Fluid Reference Intervals and/or Interpretative Information. [email or web address] Current Interpretive Data was last revised 2018. Fluid 02/04/2024 8:52 AM [employer] 02/04/2024 1:09 PM [employer]ATOR [employer] us Notinfile Unknown LAB BODY FLUIDS AND STOOLS ORD ERABLES Final Result Performing Organization Address City/[facility]/ZIP Co de Phone Number [facility] Department [place] [address] * (ABNORMAL) Renal function panel (02/04/2024 8:52 AM IMPREGNATOR [employer]IT[employer]) Sodium 138 135 - 145 mmol/L Potassium, pl 3.8 3.3 - 4.9 mmol/L [facility] Chloride 98 97 - 110 mmol/L [facility] CO2 31 22 - 32 mmol/L [facility] Anion gap 9 2 - 15 mmol/L [facility] BUN 38(H) 6 - 25 mg/dL [facility] Creatinine 3.73(H) 0.80 - 1.30 mg/dL [facility] Glucose 126 70 - 199 mg/dL [facility] Comment: Interpretive Data Fasting glucose >/= 126 [...] 2022. Calcium 9.4 8.5 - 10.3 mg/dL [facility] Phosphorus, pl 4.9(H) 2.3 - 4.5 mg/dL [facility] Albumin 3.5 3.5 - 5.0 g/dL [facility] Blood 02/04/2024 8:52 AM [employer] 02/04/2024 1:07 PM [employer] us Notinfile Unknown LAB BLOOD ORDERABLES Final Res ult Performing Organization Address City/[facility]/ZIP Co de Phone Number [facility]DA BALLARD Yen [facility] Department [place] [address] * (ABNORMAL) eGFR (02/02/2024 9:00 AM IMPREGNATOR [employer]) Pathologist [facility] eGFR 15(L) >=60 mL/min/1. 73 m2 Comment: [...] last reviewed 2020. Blood 02/02/2024 9:00 AM [employer] 02/02/2024 7:39 PM [employer] us Matthew Marti MD LAB BLOOD ORDERABLES Final Result [facility] One [facility] Department [place] [address] * (ABNORMAL) Differential, auto (02/02/2024 9:00 AM IMPREG[employer]ATOR [employer]) Pathologist [facility] Neutrophil abs 6.9(H) 1.5 - 6.5 K/cumm Imm gran abs 0.1 0.0 - 0.1 K/cumm [facility] Lymphocyte abs 0.1(L) 0.8 - 3.3 K/cumm [facility] Monocyte abs 0.5 0.2 - 0.8 K/cumm [facility] Eosinophil abs 0.2 0.0 - 0.5 K/cumm [facility] Basophil abs 0.0 0.0 - 0.1 K/cumm [facility] Neutrophil pct 88.8 % [facility] Comment: Interpretive Data Percent cell count reference ranges are not reported, since discordance with absolute values may lead to misinterpretation of CBC data. Current Interpretive Data was last revised on 2017. Imm gran pct 1.0 % [facility] Comment: Interpretive Data Percent cell count reference ranges are not reported, since discordance with absolute values may lead to misinterpretation of CBC data. Current Interpretive Data was last revised on 2017. Lymphocyte pct 1.8 % [facility] Comment: Interpretive Data Percent cell count reference ranges are not reported, since discordance with absolute values may lead to misinterpretation of CBC data. Current Interpretive Data was last revised on 2017. Monocyte pct 5.8 % [facility] Comment: Interpretive Data Percent cell count reference ranges are not reported, since discordance with absolute values may lead to misinterpretation of CBC data. Current Interpretive Data was last revised on 2017. Eosinophil pct 2.1 % [facility] Comment: Interpretive Data Percent cell count reference ranges are not reported, since discordance with absolute values may lead to misinterpretation of CBC data. Current Interpretive Data was last revised on 2017. Basophil pct 0.5 % [facility] Comment: Interpretive Data Percent cell count reference ranges are not reported, since discordance with absolute values may lead to misinterpretation of CBC data. Current Interpretive Data was last revised on 2017. Blood 02/02/2024 9:00 AM [employer] 02/02/2024 7:37 PM IMP[employer]ATOR [employer] us Matthew Marti MD LAB BLOOD ORDERABLES Final Result [facility] One [facility] Department [place] [address] * Tacrolimus level trough (02/02/2024 9:00 AM IMPREG[employer]ATOR [employer]) Pathologist [facility] Tacrolimus trough 8.2 ng/mL Comment: Interpretive Data Testing performed by liquid chromatography-tandem mass spectrometry. Therapeutic concentrations vary depending on type of transplanted organ and time elapsed since transplant. Typical trough concentrations range from 5-15 ng/mL. This test was developed and its performance characteristics determined by the [facility] consistent with CLIA requirements. This test has not been cleared or approved by the [place] Food and Drug administration. Current interpretive data last reviewed 2019. Blood 02/02/2024 9:00 AM [employer] 02/02/2024 7:37 PM [employer]ATOR [employer] Matthew Marti MD LAB BLOOD ORDERABLES Final Result Performing Organization Address City/[facility]/ZIP Co de Phone Number [facility] Department [place] [address] * (ABNORMAL) CBC with auto differential (02/02/2024 9:00 AM IMPREGNATOR [employer]IT[employer]) WBC 7.7 3.8 - 9.9 K/cumm Hgb 9.6(L) 13.0 - 17.5 g/dL [facility] Hct 29.6(L) 38.9 - 50.3 % [facility] Plt 180 150 - 400 K/cumm [facility] MPV 11.1 9.1 - 12.3 fL [facility] RBC 2.92(L) 4.30 - 5.80 M/cumm [facility] MCV 101.4(H) 81.3 - 96.4 fL [facility] MCH 32.9 27.1 - 33.3 pg [facility] MCHC 32.4 32.3 - 35.7 g/dL [facility] RDW CV 18.3(H) 11.1 - 14.9 % [facility] RDW SD 64.1(H) 35.7 - 48.1 fL [facility] NRBC abs 0.02(H) 0.00 - 0.01 K/cumm [facility] Blood 02/02/2024 9:00 AM [employer] 02/02/2024 7:37 PM [employer] Matthew Marti MD LAB BLOOD ORDERABLES Final Result Performing Organization Address City/[facility]/ZIP Co de Phone Number [facility] Department [place] [address] * Magnesium (02/02/2024 9:00 AM [employer]) Magnesium 2.0 1.4 - 2.5 mg/dL Blood 02/02/2024 9:00 AM [employer] 02/02/2024 7:36 PM [employer] Matthew Marti MD LAB BLOOD ORDERABLES Final Result [facility] Department [place] [address] * (ABNORMAL) Renal function panel (02/02/2024 9:00 AM [employer]) Sodium 141 135 - 145 mmol/L Potassium, pl 3.4 3.3 - 4.9 mmol/L [facility] Chloride 95(L) 97 - 110 mmol/L [facility] CO2 29 22 - 32 mmol/L [facility] Anion gap 17(H) 2 - 15 mmol/L [facility] BUN 41(H) 6 - 25 mg/dL [facility] Creatinine 4.08(H) 0.80 - 1.30 mg/dL [facility] Glucose 82 70 - 199 mg/dL [facility] Comment: Interpretive Data Fasting glucose >/= 126 [...] 2022. Calcium 9.4 8.5 - 10.3 mg/dL [facility] Phosphorus, pl 5.3(H) 2.3 - 4.5 mg/dL [facility] Albumin 3.6 3.5 - 5.0 g/dL [facility] Blood 02/02/2024 9:00 AM [employer] 02/02/2024 7:36 PM [employer] us Matthew Marti MD LAB BLOOD ORDERABLES Final Result Performing Organization Address [facility] de Phone Number [facility] [place] [address] * POCT glucose (01/28/2024 5:58 PM [employer]) Glucose, POC 163 70 - 199 mg/dL Blood 01/28/2024 5:58 PM [employer] 01/28/2024 5:58 PM [employer] us Ayush Galvez MD LAB POCT ORDERABLES - DEVIC E Final Result Performing Organization Address [facility] de Phone Number [facility] [place] [address] * POCT glucose (01/28/2024 12:47 PM [employer]) Glucose, POC 170 70 - 199 mg/dL Blood 01/28/2024 12:4 7 PM [employer] 01/28/2024 12:47 PM [employer] us Ayush Galvez MD LAB POCT ORDERABLES - DEVIC E Final Result Performing Organization Address [facility] [place] [address] * POCT glucose (01/28/2024 8:44 AM [employer]) Glucose, POC 113 70 - 199 mg/dL Blood 01/28/2024 8:44 AM [employer] 01/28/2024 8:44 AM [employer] us Ayush Galvez MD LAB POCT ORDERABLES - DEVIC E Final Result Performing Organization Address [facility]/ZIP Co de Phone Number [facility] Department [place] [address] * (ABNORMAL) eGFR (01/28/2024 4:15 AM [employer]) Pathologist [facility] eGFR 13(L) >=60 mL/min/1. 73 m2 Comment: [...] last reviewed 2020. Blood 01/28/2024 4:15 AM [employer] 01/28/2024 4:29 AM [employer] Ayush Galvez MD LAB BLOOD ORDERABLES Final Result Performing Organization Address [facility] Co de Phone Number [facility] Department [place] [address] * (ABNORMAL) Differential, auto (01/28/2024 4:15 AM [employer]) Neutrophil abs 7.5(H) 1.5 - 6.5 K/cumm Imm gran abs 0.5(H) 0.0 - 0.1 K/cumm [facility] Lymphocyte abs 0.1(L) 0.8 - 3.3 K/cumm [facility] Monocyte abs 0.5 0.2 - 0.8 K/cumm [facility] Eosinophil abs 0.1 0.0 - 0.5 K/cumm [facility] Basophil abs 0.0 0.0 - 0.1 K/cumm [facility] Neutrophil pct 87.1 % [facility] Comment: Interpretive Data Percent cell count reference ranges are not reported, since discordance with absolute values may lead to misinterpretation of CBC data. Current Interpretive Data was last revised on 2017. Imm gran pct 5.3 % [facility] Comment: Interpretive Data Percent cell count reference ranges are not reported, since discordance with absolute values may lead to misinterpretation of CBC data. Current Interpretive Data was last revised on 2017. Lymphocyte pct 1.4 % [facility] Comment: Interpretive Data Percent cell count reference ranges are not reported, since discordance with absolute values may lead to misinterpretation of CBC data. Current Interpretive Data was last revised on 2017. Monocyte pct 5.4 % [facility] Comment: Interpretive Data Percent cell count reference ranges are not reported, since discordance with absolute values may lead to misinterpretation of CBC data. Current Interpretive Data was last revised on 2017. Eosinophil pct 0.6 % [facility] Comment: Interpretive Data Percent cell count reference ranges are not reported, since discordance with absolute values may lead to misinterpretation of CBC data. Current Interpretive Data was last revised on 2017. Basophil pct 0.2 % [facility] Comment: Interpretive Data Percent cell count reference ranges are not reported, since discordance with absolute values may lead to misinterpretation of CBC data. Current Interpretive Data was last revised on 2017. Blood 01/28/2024 4:15 AM [employer] 01/28/2024 4:27 AM [employer] us Ayush Galvez MD LAB BLOOD ORDERABLES Final Result [facility] Department [place] [address] * Tacrolimus level trough (01/28/2024 4:15 AM [employer]) [facility] Tacrolimus trough 12.2 ng/mL Comment: Interpretive Data Testing performed by liquid chromatography-tandem mass spectrometry. Therapeutic concentrations vary depending on type of transplanted organ and time elapsed since transplant. Typical trough concentrations range from 5-15 ng/mL. This test was developed and its performance characteristics determined by the [facility] consistent with CLIA requirements. This test has not been cleared or approved by the [place] Food and Drug administration. Current interpretive data last reviewed 2019. Blood 01/28/2024 4:15 AM [employer] 01/28/2024 4:27 AM [employer] Ayush Galvez MD LAB BLOOD ORDERABLES Final Result [facility] Department [place] [address] * (ABNORMAL) CBC with auto differential (01/28/2024 4:15 AM [employer]) WBC 8.6 3.8 - 9.9 K/cumm Hgb 9.5(L) 13.0 - 17.5 g/dL [facility] Hct 29.1(L) 38.9 - 50.3 % [facility] Plt 160 150 - 400 K/cumm [facility] MPV 11.1 9.1 - 12.3 fL [facility] RBC 3.06(L) 4.30 - 5.80 M/cumm [facility] MCV 95.1 81.3 - 96.4 fL [facility] MCH 31.0 27.1 - 33.3 pg [facility] MCHC 32.6 32.3 - 35.7 g/dL [facility] RDW CV 17.0(H) 11.1 - 14.9 % [facility] RDW SD 57.3(H) 35.7 - 48.1 fL [facility] NRBC abs 0.06(H) 0.00 - 0.01 K/cumm [facility] Blood 01/28/2024 4:15 AM [employer] 01/28/2024 4:27 AM [employer] Ayush Galvez MD LAB BLOOD ORDERABLES Final Result Performing Organization Address City/[facility] Co de Phone Number [facility] Yen [facility] [place] [address] * Magnesium (01/28/2024 4:15 AM [employer]) [facility] Magnesium 2.1 1.4 - 2.5 mg/dL Blood 01/28/2024 4:15 AM [employer] 01/28/2024 4:29 AM [employer] Ayush Galvez MD LAB BLOOD ORDERABLES Final Result Performing Organization Address [facility] de Phone Number [facility] [place] [address] * (ABNORMAL) Renal function panel (01/28/2024 4:15 AM [employer]) [facility] Sodium 139 135 - 145 mmol/L Potassium, pl 3.7 3.3 - 4.9 mmol/L [facility] Chloride 94(L) 97 - 110 mmol/L [facility] CO2 29 22 - 32 mmol/L [facility] Anion gap 16(H) 2 - 15 mmol/L [facility] BUN 39(H) 6 - 25 mg/dL [facility] Creatinine 4.80(H) 0.80 - 1.30 mg/dL [facility] Glucose 126 70 - 199 mg/dL [facility] Comment: Interpretive Data Fasting glucose >/= 126 [...] 2022. Calcium 9.9 8.5 - 10.3 mg/dL [facility] Phosphorus, pl 5.3(H) 2.3 - 4.5 mg/dL [facility] Albumin 3.4(L) 3.5 - 5.0 g/dL [facility] Blood 01/28/2024 4:15 AM [employer] 01/28/2024 4:29 AM [employer] Ayush Galvez MD LAB BLOOD ORDERABLES Final Result Performing Organization Address [facility] de Phone Number [facility] [place] [address] * POCT glucose (01/27/2024 9:07 PM [employer]) Glucose, POC 180 70 - 199 mg/dL Blood 01/27/2024 9:07 PM [employer] 01/27/2024 9:07 PM [employer] Ayush Galvez MD LAB POCT ORDERABLES - DEVIC E Final Result Performing Organization Address [facility] de Phone Number [facility] [place] [address] * (ABNORMAL) POCT glucose (01/27/2024 5:55 PM [employer]) Glucose, POC 241(H) 70 - 199 mg/dL Blood 01/27/2024 5:55 PM [employer] 01/27/2024 5:55 PM [employer] Ayush Galvez MD LAB POCT ORDERABLES - DEVIC E Final Result Performing Organization Address [facility] de Phone Number [facility] [place] [address] * ECG 12 lead (01/27/2024 3:35 PM [employer]) Ventricular Rate EKG/Min 82 BPM [facility] QRS-Interval (MSEC) 144 ms [facility] QT-Interval (MSEC) 466 ms [facility] QTc 544 ms [facility] R Lafe 4 degrees [facility] T Lafe 20 degrees [facility] Diagnosis Atrial fibrillation with a premature ventricular beat or aberrantly conducted beat Non-specific intra-ventricul ar conduction block Abnormal ECG When compared with ECG of 25-JAN-2024 13:31, no significant change Confirmed by OLEKSANDR MATUTE M.D ([id number]) on 01/29/2024 10:04:40 AM [facility] 01/27/2024 3:35 PM [employer] 01/29/2024 10:04 AM [employer] us Ayush Galvez MD ECG ORDERABLES Final Resul t Performing Organization Address City/[facility]/ZIP Co de Phone Number [facility] * POCT glucose (01/27/2024 12:24 PM [employer]) Glucose, POC 186 70 - 199 mg/dL Blood 01/27/2024 12:2 4 PM [employer] 01/27/2024 12:24 PM [employer] us Ayush Galvez MD LAB POCT ORDERABLES - DEVIC E Final Result Performing Organization Address City/[facility] Co de Phone Number [facility] Department [place] [address] * (ABNORMAL) eGFR (01/27/2024 4:17 AM [employer]) eGFR 12(L) >=60 mL/min/1. 73 m2 Comment: [...] last reviewed 2020. Blood 01/27/2024 4:17 AM [employer] 01/27/2024 5:22 AM [employer] us Ayush Galvez MD LAB BLOOD ORDERABLES Final Result [facility] Department [place] [address] * (ABNORMAL) Differential, auto (01/27/2024 4:17 AM [employer]) Neutrophil abs 5.7 1.5 - 6.5 K/cumm Imm gran abs 0.3(H) 0.0 - 0.1 K/cumm [facility] Lymphocyte abs 0.1(L) 0.8 - 3.3 K/cumm [facility] Monocyte abs 0.3 0.2 - 0.8 K/cumm [facility] Eosinophil abs 0.0 0.0 - 0.5 K/cumm [facility] Basophil abs 0.0 0.0 - 0.1 K/cumm [facility] Neutrophil pct 88.4 % [facility] Comment: Interpretive Data Percent cell count reference ranges are not reported, since discordance with absolute values may lead to misinterpretation of CBC data. Current Interpretive Data was last revised on 2017. Imm gran pct 4.2 % [facility] Comment: Interpretive Data Percent cell count reference ranges are not reported, since discordance with absolute values may lead to misinterpretation of CBC data. Current Interpretive Data was last revised on 2017. Lymphocyte pct 1.7 % [facility] Comment: Interpretive Data Percent cell count reference ranges are not reported, since discordance with absolute values may lead to misinterpretation of CBC data. Current Interpretive Data was last revised on 2017. Monocyte pct 5.0 % [facility] Comment: Interpretive Data Percent cell count reference ranges are not reported, since discordance with absolute values may lead to misinterpretation of CBC data. Current Interpretive Data was last revised on 2017. Eosinophil pct 0.5 % [facility] Comment: Interpretive Data Percent cell count reference ranges are not reported, since discordance with absolute values may lead to misinterpretation of CBC data. Current Interpretive Data was last revised on 2017. Basophil pct 0.2 % [facility] Comment: Interpretive Data Percent cell count reference ranges are not reported, since discordance with absolute values may lead to misinterpretation of CBC data. Current Interpretive Data was last revised on 2017. Blood 01/27/2024 4:17 AM [employer] 01/27/2024 5:22 AM [employer] Ayush Galvez MD LAB BLOOD ORDERABLES Final Result Performing Organization Address [facility] de Phone Number [facility] [place] [address] * Tacrolimus level trough (01/27/2024 4:17 AM [employer]) [facility] Tacrolimus trough 12.2 ng/mL Comment: Interpretive Data Testing performed by liquid chromatography-tandem mass spectrometry. Therapeutic concentrations vary depending on type of transplanted organ and time elapsed since transplant. Typical trough concentrations range from 5-15 ng/mL. This test was developed and its performance characteristics determined by the [facility] consistent with CLIA requirements. This test has not been cleared or approved by the [place] Food and Drug administration. Current interpretive data last reviewed 2019. Blood 01/27/2024 4:17 AM [employer] 01/27/2024 5:22 AM [employer] Ayush Galvez MD LAB BLOOD ORDERABLES Final Result Performing Organization Address [facility] Co de Phone Number [facility] [place] [address] * (ABNORMAL) CBC with auto differential (01/27/2024 4:17 AM [employer]) [facility] WBC 6.5 3.8 - 9.9 K/cumm Hgb 9.1(L) 13.0 - 17.5 g/dL [facility] Hct 26.8(L) 38.9 - 50.3 % [facility] Plt 144(L) 150 - 400 K/cumm [facility] MPV 11.8 9.1 - 12.3 fL [facility] RBC 2.85(L) 4.30 - 5.80 M/cumm [facility] MCV 94.0 81.3 - 96.4 fL [facility] MCH 31.9 27.1 - 33.3 pg [facility] MCHC 34.0 32.3 - 35.7 g/dL [facility] RDW CV 16.9(H) 11.1 - 14.9 % [facility] RDW SD 55.8(H) 35.7 - 48.1 fL [facility] NRBC abs 0.03(H) 0.00 - 0.01 K/cumm [facility] Blood 01/27/2024 4:17 AM [employer] 01/27/2024 5:22 AM [employer] Ayush Galvez MD LAB BLOOD ORDERABLES Final Result Performing Organization Address City/[facility] Co de Phone Number [facility] [place] [address] * Magnesium (01/27/2024 4:17 AM [employer]) [facility] Magnesium 2.4 1.4 - 2.5 mg/dL Blood 01/27/2024 4:17 AM [employer] 01/27/2024 5:22 AM [employer] Ayush Galvez MD LAB BLOOD ORDERABLES Final Result Performing Organization Address [facility] Co de Phone Number [facility] [place] [address] * (ABNORMAL) Renal function panel (01/27/2024 4:17 AM [employer]) Sodium 136 135 - 145 mmol/L Potassium, pl 3.9 3.3 - 4.9 mmol/L [facility] Comment:Hemolyzed; Potassium value may be falsely elevated by as much as 0.6-1.0 mmol/L. Suggest redraw and reanalysis. Chloride 93(L) 97 - 110 mmol/L [facility] CO2 29 22 - 32 mmol/L [facility] Anion gap 14 2 - 15 mmol/L [facility] BUN 47(H) 6 - 25 mg/dL [facility] Creatinine 5.15(H) 0.80 - 1.30 mg/dL [facility] Glucose 136 70 - 199 mg/dL [facility] Comment: Interpretive Data Fasting glucose >/= 126 [...] 2022. Calcium 9.8 8.5 - 10.3 mg/dL [facility] Phosphorus, pl 5.8(H) 2.3 - 4.5 mg/dL [facility] Comment:Reviewed Albumin 3.2(L) 3.5 - 5.0 g/dL [facility] Blood 01/27/2024 4:17 AM [employer] 01/27/2024 5:22 AM [employer] us Ayush Galvez MD LAB BLOOD ORDERABLES Final Result [facility] Department [place] [address] * POCT glucose (01/26/2024 7:59 PM [employer]) Glucose, POC 152 70 - 199 mg/dL Blood 01/26/2024 7:59 PM [employer] 01/26/2024 7:59 PM [employer] us Ayush Galvez MD LAB POCT ORDERABLES - DEVIC E Final Result Performing Organization Address [facility] de Phone Number [facility] [place] [address] * POCT glucose (01/26/2024 5:15 PM [employer]) Glucose, POC 189 70 - 199 mg/dL Blood 01/26/2024 5:15 PM [employer] 01/26/2024 5:15 PM [employer] us Ayush Galvez MD LAB POCT ORDERABLES - DEVIC E Final Result Performing Organization Address [facility] Phone Number [facility] [place] [address] * POCT glucose (01/26/2024 1:48 PM [employer]) Glucose, POC 149 70 - 199 mg/dL Blood 01/26/2024 1:48 PM [employer] 01/26/2024 1:48 PM [employer] us Ayush Galvez MD LAB POCT ORDERABLES - DEVIC E Final Result Performing Organization Address [facility] [place] [address] * POCT glucose (01/26/2024 12:06 PM [employer]) Glucose, POC 180 70 - 199 mg/dL Blood 01/26/2024 12:0 6 PM [employer] 01/26/2024 12:06 PM [employer] us Ayush Galvez MD LAB POCT ORDERABLES - DEVIC E Final Result Performing Organization Address [facility] Co de Phone Number [facility] [place] [address] * Transfuse RBC (01/26/2024 9:55 AM [employer]) Blood Ayush Galvez MD BLOOD TRANSFUSION ORDERABLE S Edited Result - Final Performing Organization Address [facility] Co de Phone Number [facility] [place] [address] * POCT glucose (01/26/2024 8:25 AM [employer]) Pathologist [facility] Glucose, POC 175 70 - 199 mg/dL Blood 01/26/2024 8:25 AM [employer] 01/26/2024 8:25 AM [employer] Ayush Galvez MD LAB POCT ORDERABLES - DEVIC E Final Result Performing Organization Address [facility] [place] [address] * Type and screen (01/26/2024 6:19 AM [employer]) Pathologist [facility] [place], indirect Negative ABO Rh O Negative [facility] Blood 01/26/2024 6:19 AM [employer] 01/26/2024 6:30 AM [employer] Narrative [facility] - 01/26/2024 7:36 AM [employer] Has the patient had Daratumumab or Isatuximab in the past 6 months?->Unknown Ayush Galvez MD LAB BLOOD BANK TEST ORDERAB LES Final Result Performing Organization Address [facility] [place] [address] * Prepare RBC: 1 Units (01/26/2024 5:41 AM [employer]) Pathologist [facility] Product code [id number] Unit Number [id number] * [facility] Product Blood Type ONEG [facility] Dispense Status PRESUMED TRANSFUSED [facility] Blood 01/26/2024 5:41 AM [employer] 01/26/2024 5:41 AM [employer] Narrative [facility] - 01/26/2024 4:02 PM [employer] Are special requirements needed? (All products are leukoreduced and CMV- safe)- >No Date required:-[id number] LRRBC # of [id number] Reasons:-Cardiovascular disease, Hgb <8 g/dL} us Ayuhs Galvez MD BLOOD BANK PRODUCT ORDERABL ES Final Result [facility] One [facility] Department [place] [address] * (ABNORMAL) eGFR (01/26/2024 4:39 AM [employer]) [facility] eGFR 9(L) >=60 mL/min/1. 73 m2 [...] last reviewed 2020. Blood 01/26/2024 4:39 AM [employer] 01/26/2024 5:17 AM [employer] us Ayush Galvez MD LAB BLOOD ORDERABLES Final Result [facility] Department [place] [address] * (ABNORMAL) Differential, auto (01/26/2024 4:39 AM IMPREGNATOR [employer]LECTR[employer]ACIT[employer]) Neutrophil abs 4.2 1.5 - 6.5 K/cumm Imm gran abs 0.1 0.0 - 0.1 K/cumm [facility] Lymphocyte abs 0.1(L) 0.8 - 3.3 K/cumm [facility] Monocyte abs 0.2 0.2 - 0.8 K/cumm [facility] Eosinophil abs 0.0 0.0 - 0.5 K/cumm [facility] Basophil abs 0.0 0.0 - 0.1 K/cumm [facility] Neutrophil pct 91.1 % [facility] Comment: Interpretive Data Percent cell count reference ranges are not reported, since discordance with absolute values may lead to misinterpretation of CBC data. Current Interpretive Data was last revised on 2017. Imm gran pct 2.0 % [facility] Comment: Interpretive Data Percent cell count reference ranges are not reported, since discordance with absolute values may lead to misinterpretation of CBC data. Current Interpretive Data was last revised on 2017. Lymphocyte pct 1.7 % [facility] Comment: Interpretive Data Percent cell count reference ranges are not reported, since discordance with absolute values may lead to misinterpretation of CBC data. Current Interpretive Data was last revised on 2017. Monocyte pct 5.2 % [facility] Comment: Interpretive Data Percent cell count reference ranges are not reported, since discordance with absolute values may lead to misinterpretation of CBC data. Current Interpretive Data was last revised on 2017. Eosinophil pct 0.0 % [facility] Comment: Interpretive Data Percent cell count reference ranges are not reported, since discordance with absolute values may lead to misinterpretation of CBC data. Current Interpretive Data was last revised on 2017. Basophil pct 0.0 % [facility] Comment: Interpretive Data Percent cell count reference ranges are not reported, since discordance with absolute values may lead to misinterpretation of CBC data. Current Interpretive Data was last revised on 2017. Blood 01/26/2024 4:39 AM [employer] 01/26/2024 5:17 AM [employer]ATOR [employer] Ayush Galvez MD LAB BLOOD ORDERABLES Final Result Performing Organization Address [facility] de Phone Number [facility] [place] [address] * Tacrolimus level trough (01/26/2024 4:39 AM IMPREGNATOR [employer]ACIT[employer]) [facility] Tacrolimus trough 8.9 ng/mL Comment: Interpretive Data Testing performed by liquid chromatography-tandem mass spectrometry. Therapeutic concentrations vary depending on type of transplanted organ and time elapsed since transplant. Typical trough concentrations range from 5-15 ng/mL. This test was developed and its performance characteristics determined by the [facility] consistent with CLIA requirements. This test has not been cleared or approved by the US Food and Drug administration. Current interpretive data last reviewed 2019. Blood 01/26/2024 4:39 AM [employer] 01/26/2024 5:17 AM [employer]ATOR [employer] Ayush Galvez MD LAB BLOOD ORDERABLES Final Result Performing Organization Address [facility] [place] [address] * (ABNORMAL) CBC with auto differential (01/26/2024 4:39 AM IMPREGNATOR [employer]IT[employer]) [facility] WBC 4.6 3.8 - 9.9 K/cumm Hgb 7.9(L) 13.0 - 17.5 g/dL [facility] Hct 23.5(L) 38.9 - 50.3 % [facility] Plt 111(L) 150 - 400 K/cumm [facility] MPV 11.9 9.1 - 12.3 fL [facility] RBC 2.49(L) 4.30 - 5.80 M/cumm [facility] MCV 94.4 81.3 - 96.4 fL [facility] MCH 31.7 27.1 - 33.3 pg [facility] MCHC 33.6 32.3 - 35.7 g/dL [facility] RDW CV 17.2(H) 11.1 - 14.9 % [facility] RDW SD 58.9(H) 35.7 - 48.1 fL [facility] NRBC abs 0.00 0.00 - 0.01 K/cumm [facility] Blood 01/26/2024 4:39 AM [employer] 01/26/2024 5:17 AM [employer] Ayush Galvez MD LAB BLOOD ORDERABLES Final Result Performing Organization Address [facility] Co de Phone Number [facility] Department [place] [address] * Magnesium (01/26/2024 4:39 AM IMPREGNATOR [employer]ACITORS) [facility] Magnesium 2.5 1.4 - 2.5 mg/dL Blood 01/26/2024 4:39 AM [employer] 01/26/2024 5:17 AM [employer] Ayush Galvez MD LAB BLOOD ORDERABLES Final Result Performing Organization Address [facility] Co de Phone Number [facility] [place] [address] * (ABNORMAL) Renal function panel (01/26/2024 4:39 AM IMPREGNATOR [employer]ACITORS) Pathologist [facility] Sodium 132(L) 135 - 145 mmol/L Potassium, pl 4.5 3.3 - 4.9 mmol/L [facility] Comment:Hemolyzed; Potassium value may be falsely elevated by as much as 0.3-0.5 mmol/L. Suggest redraw and reanalysis. Chloride 90(L) 97 - 110 mmol/L [facility] CO2 28 22 - 32 mmol/L [facility] Anion gap 14 2 - 15 mmol/L [facility] BUN 69(H) 6 - 25 mg/dL [facility] Creatinine 6.70(H) 0.80 - 1.30 mg/dL [facility] Glucose 172 70 - 199 mg/dL [facility] Comment: Interpretive Data Fasting glucose >/= 126 [...] 2022. Calcium 9.6 8.5 - 10.3 mg/dL [facility] Phosphorus, pl 8.0(H) 2.3 - 4.5 mg/dL [facility] Albumin 3.0(L) 3.5 - 5.0 g/dL [facility] Blood 01/26/2024 4:39 AM [employer]IT[employer] 01/26/2024 5:17 AM [employer] Ayush Galvez MD LAB BLOOD ORDERABLES Final Result Performing Organization Address [facility] Co de Phone Number [facility] Department [place] [address] * POCT glucose (01/25/2024 9:33 PM IMPREGNATOR [employer]ACIT[employer]) [facility] Glucose, POC 195 70 - 199 mg/dL Blood 01/25/2024 9:33 PM [employer] 01/25/2024 9:33 PM [employer] Ayush Galvez MD LAB POCT ORDERABLES - DEVIC E Final Result Performing Organization Address [facility] Co de Phone Number [facility] Department [place] [address] * (ABNORMAL) Troponin I high-sensitivity 6-hour (01/25/2024 7:51 PM [employer]) Trop I hs 347(C) <=35 ng/L Comment: Previous critical value noted within 48 hours ago. Interpretive Data For further hscTnI resources including the diagnostic algorithm and an aid in interpretation, copy and paste this link: [email or web address] Current Interpretive Data last revised 2019. Trop I hs pct delta -11 % [facility] Comment:Previous critical va lue noted within 48 hours ago. Trop I hs interp Equivocal [facility] Comment:Previous critical va lue noted within 48 hours ago. Blood 01/25/2024 7:51 PM [employer] 01/25/2024 8:11 PM [employer] Vannessa Hein TRANSPORTER RADIOLOGY LAB BLOOD ORDERABLES Fin al Result Performing Organization Address [facility] de Phone Number [facility] [place] [address] * (ABNORMAL) Troponin I high-sensitivity 4-hour (01/25/2024 6:00 PM IMPREG[employer]ATOR [employer]ACIT[employer]) Pathologist [facility] Trop I hs 388(C) <=35 ng/L Comment: Previous critical value noted within 48 hours ago. Interpretive Data For further hscTnI resources including the diagnostic algorithm and an aid in interpretation, copy and paste this link: [email or web address] Current Interpretive Data last revised 2019. Trop I hs pct delta -1 % [facility] Trop I hs interp Insignificant [facility] Blood 01/25/2024 6:00 PM [employer]IT[employer] 01/25/2024 6:21 PM [employer]ATOR [employer] Vannessa Hein TRANSPORTER RADIOLOGY LAB BLOOD ORDERABLES Fin al Result Performing Organization Address [facility] de Phone Number [facility] Department [place] [address] * (ABNORMAL) POCT glucose (01/25/2024 5:49 PM IMPREGNATOR [employer]IT[employer]) Glucose, POC 212(H) 70 - 199 mg/dL Blood 01/25/2024 5:49 PM [employer]IT[employer] 01/25/2024 5:49 PM [employer]ACIT[employer] Ayush Galvez MD LAB POCT ORDERABLES - DEVIC E Final Result Performing Organization Address City/[facility] Co de Phone Number [facility] Department [place] [address] * (ABNORMAL) Troponin I high-sensitivity 2-hour (01/25/2024 3:44 PM IMPREG[employer]ATOR [employer]ACIT[employer]) Pathologist [facility] Trop I hs 384(C) <=35 ng/L Comment: Previous critical value noted within 48 hours ago. Interpretive Data For further hscTnI resources including the diagnostic algorithm and an aid in interpretation, copy and paste this link: [email or web address] Current Interpretive Data last revised 2019. Trop I hs pct delta -2 % [facility] Trop I hs interp Insignificant [facility] Blood 01/25/2024 3:44 PM [employer]ATOR [employer]IT[employer] 01/25/2024 4:16 PM [employer]ACIT[employer] Vannessa Hein NP LAB BLOOD ORDERABLES Fin al Result Performing Organization Address [facility] Co de Phone Number [facility] Department [place] [address] * XR Chest 1 View (01/25/2024 2:52 PM IMPREGNATOR [employer]ACIT[employer]) Anatomical Region Laterality Modality Body, Chest N/A Computed Radiogr aphy 01/25/2024 3:56 PM [employer]ACIT[employer] Impressions 01/25/2024 4:00 PM [employer]IT[employer] The current study is compared with the [...] Erinn Morataya M.D. Narrative 01/25/2024 4:00 PM [employer]ACIT[employer] EXAMINATION: 1 view chest radiograph Procedure Note [...] signed by: Erinn Morataya M.D. Vannessa Hein TRANSPORTER RADIOLOGY IMG XR PROCEDURES Final Result * (ABNORMAL) CBC without differential (01/25/2024 2:42 PM IMPREGNATOR [employer]ROLY[employer]IC CAPACITORS) [facility] Signature WBC 6.9 3.8 - 9.9 K/cumm Hgb 8.1(L) 13.0 - 17.5 g/dL [facility] Hct 24.5(L) 38.9 - 50.3 % [facility] Plt 94(L) 150 - 400 K/cumm [facility] MPV 11.4 9.1 - 12.3 fL [facility] RBC 2.56(L) 4.30 - 5.80 M/cumm [facility] MCV 95.7 81.3 - 96.4 fL [facility] MCH 31.6 27.1 - 33.3 pg [facility] MCHC 33.1 32.3 - 35.7 g/dL [facility] RDW CV 17.2(H) 11.1 - 14.9 % [facility] RDW SD 59.7(H) 35.7 - 48.1 fL [facility] NRBC abs 0.03(H) 0.00 - 0.01 K/cumm [facility] Blood 01/25/2024 2:42 PM IMPREG[employer]ATOR [employer]IT[employer] 01/25/2024 2:56 PM IMPREGNATOR E[employer]ROLY[employer]IC [employer]ACITORS Result [facility] [place] LAB BLOOD ORDERABLES Final Result Performing Organization Address City/[facility] Co de Phone Number [facility] [place] [address] * (ABNORMAL) Troponin I high-sensitivity (01/25/2024 2:05 PM IMPREGNATOR [employer]ACIT[employer]) Trop I hs 383(C) <=35 ng/L Comment: Previous critical value noted within 48 hours ago. Interpretive Data For further hscTnI resources including the diagnostic algorithm and an aid in interpretation, copy and paste this link: [email or web address] Current Interpretive Data last revised 2019. Blood 01/25/2024 2:05 PM [employer]IT[employer] 01/25/2024 2:23 PM IMPREGNATOR ELECTROLYTIC CAPACITORS [facility] [place] LAB BLOOD ORDERABLES Final Result Performing Organization Address City/[facility]/ZIP Co de Phone Number [facility] [place] [address] * (ABNORMAL) Troponin I high-sensitivity series (baseline, 2hr, 4hr, 6hr) (01/25/2024 1:46 PM IMPREGNATOR [employer]ACITORS) Trop I hs 391(C) <=35 ng/L Comment: Interpretive Data For further hscTnI resources including the diagnostic algorithm and an aid in interpretation, copy and paste this link: [email or web address] Current Interpretive Data last revised 2019. Blood 01/25/2024 1:46 PM [employer] 01/25/2024 1:59 PM [employer]ACIT[employer] Vannessa Hein TRANSPORTER RADIOLOGY LAB BLOOD ORDERABLES Fin al Result Performing Organization Address City/[facility] Co de Phone Number [facility] [place] [address] * Critical result callback Cardio chemistry (01/25/2024 1:46 PM IMPREGNATOR [employer]ACITORS) Date Notified [id number] Time Notified 1449 [facility] Test name Trop I hs base [facility] Called/Read Back Nadiya [facility] Credentials RN LINDA [facility] Called By afshin [facility] Blood 01/25/2024 1:46 PM [employer]ACIT[employer] 01/25/2024 2:11 PM [employer]AC[employer] Vannessa Hein TRANSPORTER RADIOLOGY LAB BLOOD ORDERABLES Fin al Result Performing Organization Address [facility] [place] [address] * ECG 12 lead (01/25/2024 1:31 PM IMPREGNATOR [employer]ACIT[employer]) Ventricular Rate EKG/Min 82 BPM [facility] Atrial Rate 83 BPM [facility] QRS-Interval (MSEC) 144 ms [facility] QT-Interval (MSEC) 462 ms [facility] QTc 539 ms [facility] R Lafe 7 degrees [facility] T Lafe 3 degrees [facility] Diagnosis Atrial fibrillation/fl utter with variable A-V block Non-specific intra-ventricul ar conduction block Cannot rule out Inferior infarct , age undetermined Abnormal ECG When compared with ECG of 23-JAN-2024 01:02, (unconfirmed) T wave inversion no longer evident in Lateral leads QT has lengthened Confirmed by JENNIFER BYRD M.D ([id number]) on 01/26/2024 12:43:53 PM [facility] 01/25/2024 1:31 PM [employer]IT[employer] 01/26/2024 12:43 PM [employer]ATOR [employer]ACIT[employer] Vannessa Hein TRANSPORTER RADIOLOGY ECG ORDERABLES Final Re sult Performing Organization Address [facility]/ZIP Co de Phone Number [facility] * Creatinine, body fluid (01/25/2024 1:15 PM IMPREGNATOR [employer]ACITORS) Specimen type, fld Peritoneal Creatinine, fld 5.90 mg/dL [facility] Comment: The above specimen type is not [...] 2018. Chapter 43, Body Fluids, p. 925 Where Was it Filmed Test directory, Body Fluid Reference Intervals and/or Interpretative Information. [email or web address] Current Interpretive Data was last revised 2018. Fluid 01/25/2024 1:15 PM [employer]REG[employer]ATOR [employer]IT[employer] 01/25/2024 2:12 PM IMPREGNATOR [employer]ROL[employer]ACITORS Narrative [facility] - 01/25/2024 2:45 PM [employer]ATOR [employer]ACITORS CONSTANZA drain Rosalie Velásquez TRANSPORTER RADIOLOGY LAB BODY FLUIDS AND STOOLS ORDERABLES Final Result Performing Organization Address [facility]/ZIP Co de Phone Number [facility] One [facility] Department [place] [address] * POCT glucose (01/25/2024 12:46 PM IMPREGNATOR [employer]ACIT[employer]) Glucose, POC 169 70 - 199 mg/dL Blood 01/25/2024 12:4 6 PM [employer] 01/25/2024 12:46 PM [employer]REG[employer]ATOR [employer]ACIT[employer] Ayush Galvez MD LAB POCT ORDERABLES - DEVIC E Final Result LINDA BALLARD Yen [facility] Department [place] [address] * POCT glucose (01/25/2024 11:13 AM IMPREGNATOR [employer]ACITORS) Glucose, POC 143 70 - 199 mg/dL Blood 01/25/2024 11:1 3 AM [employer]REG[employer]ATOR [employer]IT[employer] 01/25/2024 11:13 AM IMPREGNATOR [employer]ACITORS us Ayush Galvez MD LAB POCT ORDERABLES - DEVIC E Final Result Performing Organization Address [facility] Co de Phone Number LINDA BALLARD Yen [facility] Department [place] [address] * IR Central Line Placement > 5 Years (01/25/2024 10:26 AM IMPREGNATOR [employer]ACIT[employer]) Anatomical Region Laterality Modality Body N/A X-Ray Angiograph y 01/25/2024 11:2 6 AM [employer]REGNATOR [employer]ACIT[employer] Impressions 01/25/2024 2:04 PM [employer]REG[employer]ATOR [employer]ACIT[employer] Successful nontunneled catheter placement. PLAN: The catheter [...] Miguel Swan M.D. Narrative 01/25/2024 2:04 PM IMPREGNATOR [employer]ACITORS EXAMINATION: NONTUNNELED CENTRAL VENOUS CATHETER PLACEMENT (STD) [...] was obtained. Prior to beginning the procedure, [place] Protocol was used to confirm the patient's [...] was obtained. Prior to beginning the procedure, [place] Protocol was used to confirm the patient's [...] Result * POCT glucose (01/25/2024 7:40 AM IMPREGNATOR E[employer]ROL[employer]ACITORS) Pathologist [facility] Glucose, POC 147 70 - 199 mg/dL Blood 01/25/2024 7:40 AM IMPREGNATOR [employer]ACITORS 01/25/2024 7:40 AM IMPREGNATOR [employer]ACITORS Ayush Galvez MD LAB POCT ORDERABLES - DEVIC E Final Result Performing Organization Address City/State/[facility] Co or Phone Number [facility] One [facility] Department [place] [address] * (ABNORMAL) eGFR (01/25/2024 5:07 AM IMPREGNATOR [employer]ROL[employer]ACITORS) Pathologist [facility] eGFR 10(L) >=60 mL/min/1. 73 m2 Comment: [...] last reviewed 2020. Blood 01/25/2024 5:07 AM IMPREGNATOR [employer]ACITORS 01/25/2024 5:25 AM IMPREGNATOR [employer]ACIT[employer] us Ayush Galvez MD LAB BLOOD ORDERABLES Final Result [facility] One [facility] Department [place] [address] * (ABNORMAL) Differential, auto (01/25/2024 5:07 AM IMPREGNATOR [employer]ACIT[employer]) Pathologist [facility] Neutrophil abs 3.3 1.5 - 6.5 K/cumm Imm gran abs 0.1 0.0 - 0.1 K/cumm [facility] Lymphocyte abs 0.1(L) 0.8 - 3.3 K/cumm [facility] Monocyte abs 0.2 0.2 - 0.8 K/cumm [facility] Eosinophil abs 0.0 0.0 - 0.5 K/cumm [facility] Basophil abs 0.0 0.0 - 0.1 K/cumm [facility] Neutrophil pct 90.8 % [facility] Comment: Interpretive Data Percent cell count reference ranges are not reported, since discordance with absolute values may lead to misinterpretation of CBC data. Current Interpretive Data was last revised on 2017. Imm gran pct 2.5 % [facility] Comment: Interpretive Data Percent cell count reference ranges are not reported, since discordance with absolute values may lead to misinterpretation of CBC data. Current Interpretive Data was last revised on 2017. Lymphocyte pct 1.7 % [facility] Comment: Interpretive Data Percent cell count reference ranges are not reported, since discordance with absolute values may lead to misinterpretation of CBC data. Current Interpretive Data was last revised on 2017. Monocyte pct 4.7 % [facility] Comment: Interpretive Data Percent cell count reference ranges are not reported, since discordance with absolute values may lead to misinterpretation of CBC data. Current Interpretive Data was last revised on 2017. Eosinophil pct 0.3 % [facility] Comment: Interpretive Data Percent cell count reference ranges are not reported, since discordance with absolute values may lead to misinterpretation of CBC data. Current Interpretive Data was last revised on 2017. Basophil pct 0.0 % [facility] Comment: Interpretive Data Percent cell count reference ranges are not reported, since discordance with absolute values may lead to misinterpretation of CBC data. Current Interpretive Data was last revised on 2017. Blood 01/25/2024 5:07 AM IMPREGNATOR [employer]ACITORS 01/25/2024 5:58 AM IMPREGNATOR E[employer]ROLY[employer]IC [employer]ACITORS Ayush Galvez MD LAB BLOOD ORDERABLES Final Result Performing Organization Address [facility] de Phone Number [facility] One [facility] Department [place] [address] * Tacrolimus level trough (01/25/2024 5:07 AM IMPREGNATOR ELECTROLYTIC CAPACITORS) [facility] Signature Tacrolimus trough 7.3 ng/mL Comment: Interpretive Data Testing performed by liquid chromatography-tandem mass spectrometry. Therapeutic concentrations vary depending on type of transplanted organ and time elapsed since transplant. Typical trough concentrations range from 5-15 ng/mL. This test was developed and its performance characteristics determined by the [facility] consistent with CLIA requirements. This test has not been cleared or approved by the [place] Food and Drug administration. Current interpretive data last reviewed 2019. Blood 01/25/2024 5:07 AM IMPREGNATOR [employer]ROL[employer]IC [employer]ACITORS 01/25/2024 5:58 AM IMPREGNATOR E[employer]ROLY[employer]IC [employer]ACITORS Ayush Galvez MD LAB BLOOD ORDERABLES Final Result Performing Organization Address [facility]/ZIP Co de Phone Number [facility] Department [place] [address] * (ABNORMAL) CBC with auto differential (01/25/2024 5:07 AM IMPREGNATOR ELECTROLYTIC CAPACITORS) Pathologist [facility] WBC 3.6(L) 3.8 - 9.9 K/cumm Hgb 8.1(L) 13.0 - 17.5 g/dL [facility] Hct 24.1(L) 38.9 - 50.3 % [facility] Plt 92(L) 150 - 400 K/cumm [facility] MPV 11.0 9.1 - 12.3 fL [facility] RBC 2.55(L) 4.30 - 5.80 M/cumm [facility] MCV 94.5 81.3 - 96.4 fL [facility] MCH 31.8 27.1 - 33.3 pg [facility] MCHC 33.6 32.3 - 35.7 g/dL [facility] RDW CV 17.2(H) 11.1 - 14.9 % [facility] RDW SD 59.2(H) 35.7 - 48.1 fL [facility] NRBC abs 0.03(H) 0.00 - 0.01 K/cumm [facility] Blood 01/25/2024 5:07 AM IMPREGNATOR [employer]ROLY[employer]IC [employer]ACITORS 01/25/2024 5:58 AM IMPREGNATOR E[employer]ROL[employer]IC [employer]ACITORS us Ayush Galvez MD LAB BLOOD ORDERABLES Final Result Performing Organization Address City/[facility]/ZIP Co de Phone Number [facility] Department [place] [address] * Magnesium (01/25/2024 5:07 AM IMPREGNATOR ELECTROLYTIC CAPACITORS) [facility] Magnesium 2.3 1.4 - 2.5 mg/dL Blood 01/25/2024 5:07 AM IMPREGNATOR ELECTROLYTIC CAPACITORS 01/25/2024 5:25 AM IMPREGNATOR ELECTROLYTIC CAPACITORS us Ayush Galvez MD LAB BLOOD ORDERABLES Final Result [facility] Department [place] [address] * (ABNORMAL) Renal function panel (01/25/2024 5:07 AM IMPREGNATOR ELECTROLYTIC CAPACITORS) [facility] Sodium 134(L) 135 - 145 mmol/L Potassium, pl 4.0 3.3 - 4.9 mmol/L [facility] Chloride 91(L) 97 - 110 mmol/L [facility] CO2 30 22 - 32 mmol/L [facility] Anion gap 13 2 - 15 mmol/L [facility] BUN 51(H) 6 - 25 mg/dL [facility] Creatinine 5.63(H) 0.80 - 1.30 mg/dL [facility] Glucose 152 70 - 199 mg/dL [facility] Comment: Interpretive Data Fasting glucose >/= 126 [...] 2022. Calcium 9.4 8.5 - 10.3 mg/dL [facility] Phosphorus, pl 7.5(H) 2.3 - 4.5 mg/dL [facility] Albumin 3.2(L) 3.5 - 5.0 g/dL [facility] Blood 01/25/2024 5:07 AM IMPREGNATOR ELECTROLYTIC CAPACITORS 01/25/2024 5:25 AM IMPREGNATOR ELECTROLYTIC CAPACITORS Ayush Galvez MD LAB BLOOD ORDERABLES Final Result [facility] Department [place] [address] * POCT glucose (01/24/2024 8:58 PM IMPREGNATOR ELECTROLYTIC CAPACITORS) Glucose, POC 195 70 - 199 mg/dL Blood 01/24/2024 8:58 PM IMPREGNATOR ELECTROL[employer]TIC CAPACITORS 01/24/2024 8:58 PM IMPREGNATOR ELECTROLYTIC CAPACITORS Ayush Galvez MD LAB POCT ORDERABLES - DEVIC E Final Result Performing Organization Address [facility] de Phone Number [facility] [place] [address] * POCT glucose (01/24/2024 4:57 PM IMPREGNATOR ELECTROLYTIC CAPACITORS) Glucose, POC 189 70 - 199 mg/dL Blood 01/24/2024 4:57 PM IMPREGNATOR ELECTROLYTIC CAPACITORS 01/24/2024 4:57 PM IMPREGNATOR ELECTROLYTIC CAPACITORS Ayush Galvez MD LAB POCT ORDERABLES - DEVIC E Final Result Performing Organization Address [facility] de Phone Number [facility] [place] [address] * (ABNORMAL) POCT glucose (01/24/2024 11:41 AM IMPREGNATOR ELECTROLYTIC CAPACITORS) Glucose, POC 219(H) 70 - 199 mg/dL Blood 01/24/2024 11:4 1 AM IMPREGNATOR ELECTROLYTIC CAPACITORS 01/24/2024 11:41 AM IMPREGNATOR ELECTROLYTIC CAPACITORS Ayush Galvez MD LAB POCT ORDERABLES - DEVIC E Final Result Performing Organization Address [facility] [place] [address] * POCT glucose (01/24/2024 7:32 AM IMPREGNATOR ELECTROLYTIC CAPACITORS) Glucose, POC 187 70 - 199 mg/dL Blood 01/24/2024 7:32 AM IMPREGNATOR ELECTROLYTIC CAPACITORS 01/24/2024 7:32 AM IMPREGNATOR ELECTROLYTIC CAPACITORS us Ayush Galvez MD LAB POCT ORDERABLES - DEVIC E Final Result Performing Organization Address [facility] de Phone Number [facility] [place] [address] * (ABNORMAL) eGFR (01/24/2024 5:06 AM IMPREGNATOR ELECTROLYTIC CAPACITORS) eGFR 15(L) >=60 mL/min/1. 73 m2 Comment: [...] last reviewed 2020. Blood 01/24/2024 5:06 AM IMPREGNATOR ELECTROLYTIC CAPACITORS 01/24/2024 5:24 AM IMPREGNATOR ELECTROLYTIC CAPACITORS us Ayush Galvez MD LAB BLOOD ORDERABLES Final Result Performing Organization Address [facility] Co de Phone Number [facility] Department [place] [address] * (ABNORMAL) Differential, auto (01/24/2024 5:06 AM IMPREGNATOR ELECTROLYTIC CAPACITORS) Neutrophil abs 5.8 1.5 - 6.5 K/cumm Imm gran abs 0.0 0.0 - 0.1 K/cumm [facility] Lymphocyte abs 0.1(L) 0.8 - 3.3 K/cumm [facility] Monocyte abs 0.3 0.2 - 0.8 K/cumm [facility] Eosinophil abs 0.0 0.0 - 0.5 K/cumm [facility] Basophil abs 0.0 0.0 - 0.1 K/cumm [facility] Neutrophil pct 93.5 % [facility] Comment: Interpretive Data Percent cell count reference ranges are not reported, since discordance with absolute values may lead to misinterpretation of CBC data. Current Interpretive Data was last revised on 2017. Imm gran pct 0.6 % [facility] Comment: Interpretive Data Percent cell count reference ranges are not reported, since discordance with absolute values may lead to misinterpretation of CBC data. Current Interpretive Data was last revised on 2017. Lymphocyte pct 1.0 % [facility] Comment: Interpretive Data Percent cell count reference ranges are not reported, since discordance with absolute values may lead to misinterpretation of CBC data. Current Interpretive Data was last revised on 2017. Monocyte pct 4.7 % [facility] Comment: Interpretive Data Percent cell count reference ranges are not reported, since discordance with absolute values may lead to misinterpretation of CBC data. Current Interpretive Data was last revised on 2017. Eosinophil pct 0.2 % [facility] Comment: Interpretive Data Percent cell count reference ranges are not reported, since discordance with absolute values may lead to misinterpretation of CBC data. Current Interpretive Data was last revised on 2017. Basophil pct 0.0 % [facility] Comment: Interpretive Data Percent cell count reference ranges are not reported, since discordance with absolute values may lead to misinterpretation of CBC data. Current Interpretive Data was last revised on 2017. Blood 01/24/2024 5:06 AM IMPREGNATOR ELECTROLYTIC CAPACITORS 01/24/2024 6:39 AM IMPREGNATOR ELECTROLYTIC CAPACITORS us Ayush Galvez MD LAB BLOOD ORDERABLES Final Result [facility] Department [place] [address] * Tacrolimus level trough (01/24/2024 5:06 AM IMPREGNATOR ELECTROLYTIC CAPACITORS) [facility] Tacrolimus trough 9.4 ng/mL Comment: Interpretive Data Testing performed by liquid chromatography-tandem mass spectrometry. Therapeutic concentrations vary depending on type of transplanted organ and time elapsed since transplant. Typical trough concentrations range from 5-15 ng/mL. This test was developed and its performance characteristics determined by the [facility] consistent with CLIA requirements. This test has not been cleared or approved by the US Food and Drug administration. Current interpretive data last reviewed 2019. Blood 01/24/2024 5:06 AM IMPREGNATOR ELECTROLYTIC CAPACITORS 01/24/2024 6:39 AM IMPREGNATOR ELECTROLYTIC CAPACITORS Ayush Galvez MD LAB BLOOD ORDERABLES Final Result [facility] Department [place] [address] * (ABNORMAL) CBC with auto differential (01/24/2024 5:06 AM IMPREGNATOR ELECTROLYTIC CAPACITORS) [facility] WBC 6.2 3.8 - 9.9 K/cumm Hgb 8.2(L) 13.0 - 17.5 g/dL [facility] Hct 24.4(L) 38.9 - 50.3 % [facility] Plt 103(L) 150 - 400 K/cumm [facility] MPV 11.4 9.1 - 12.3 fL [facility] RBC 2.57(L) 4.30 - 5.80 M/cumm [facility] MCV 94.9 81.3 - 96.4 fL [facility] MCH 31.9 27.1 - 33.3 pg [facility] MCHC 33.6 32.3 - 35.7 g/dL [facility] RDW CV 17.7(H) 11.1 - 14.9 % [facility] RDW SD 62.0(H) 35.7 - 48.1 fL [facility] NRBC abs 0.02(H) 0.00 - 0.01 K/cumm [facility] Blood 01/24/2024 5:06 AM IMPREGNATOR ELECTROLYTIC CAPACITORS 01/24/2024 6:39 AM IMPREGNATOR ELECTROLYTIC CAPACITORS Ayush Galvez MD LAB BLOOD ORDERABLES Final Result Performing Organization Address City/[facility]/ZIP Co de Phone Number [facility] [place] [address] * Magnesium (01/24/2024 5:06 AM IMPREGNATOR ELECTROLYTIC CAPACITORS) Pathologist [facility] Magnesium 2.2 1.4 - 2.5 mg/dL Blood 01/24/2024 5:06 AM IMPREGNATOR ELECTROLYTIC CAPACITORS 01/24/2024 5:24 AM IMPREGNATOR ELECTROLYTIC CAPACITORS Ayush Galvez MD LAB BLOOD ORDERABLES Final Result Performing Organization Address [facility] de Phone Number [facility] [place] [address] * (ABNORMAL) Renal function panel (01/24/2024 5:06 AM IMPREGNATOR ELECTROLYTIC CAPACITORS) Pathologist [facility] Sodium 137 135 - 145 mmol/L Potassium, pl 3.9 3.3 - 4.9 mmol/L [facility] Chloride 92(L) 97 - 110 mmol/L [facility] CO2 28 22 - 32 mmol/L [facility] Anion gap 17(H) 2 - 15 mmol/L [facility] BUN 36(H) 6 - 25 mg/dL [facility] Creatinine 4.25(H) 0.80 - 1.30 mg/dL [facility] Glucose 206(H) 70 - 199 mg/dL [facility] Comment: Interpretive Data Fasting glucose >/= 126 [...] 2022. Calcium 9.1 8.5 - 10.3 mg/dL [facility] Phosphorus, pl 5.6(H) 2.3 - 4.5 mg/dL [facility] Comment:Repeated on Dilution Albumin 3.2(L) 3.5 - 5.0 g/dL [facility] Blood 01/24/2024 5:06 AM IMPREGNATOR ELECTROLYTIC CAPACITORS 01/24/2024 5:24 AM IMPREGNATOR ELECTROLYTIC CAPACITORS Ayush Galvez MD LAB BLOOD ORDERABLES Final Result Performing Organization Address City/[facility]/ZIP Co de Phone Number [facility] [place] [address] * (ABNORMAL) POCT glucose (01/23/2024 9:19 PM IMPREGNATOR ELECTROLYTIC CAPACITORS) Glucose, POC 215(H) 70 - 199 mg/dL Blood 01/23/2024 9:19 PM IMPREGNATOR ELECTROLYTIC CAPACITORS 01/23/2024 9:19 PM IMPREGNATOR ELECTROLYTIC CAPACITORS Result [facility] Ayush Galvez MD LAB POCT ORDERABLES - DEVIC E Final Result Performing Organization Address City/[facility] Co de Phone Number [facility] Department [place] [address] * (ABNORMAL) POCT glucose (01/23/2024 5:44 PM IMPREGNATOR ELECTROLYTIC CAPACITORS) Glucose, POC 232(H) 70 - 199 mg/dL Blood 01/23/2024 5:44 PM IMPREGNATOR ELECTROLYTIC CAPACITORS 01/23/2024 5:44 PM IMPREGNATOR ELECTROLYTIC CAPACITORS Ayush Galvez MD LAB POCT ORDERABLES - DEVIC E Final Result Performing Organization Address City/[facility] Co de Phone Number [facility] [place] [address] * (ABNORMAL) POCT glucose (01/23/2024 12:11 PM IMPREGNATOR ELECTROLYTIC CAPACITORS) Glucose, POC 217(H) 70 - 199 mg/dL Blood 01/23/2024 12:1 1 PM IMPREGNATOR ELECTROLYTIC CAPACITORS 01/23/2024 12:11 PM IMPREGNATOR ELECTROLYTIC CAPACITORS Ayush Galvez MD LAB POCT ORDERABLES - DEVIC E Final Result Performing Organization Address [facility] de Phone Number [facility] [place] [address] * (ABNORMAL) POCT glucose (01/23/2024 8:18 AM IMPREGNATOR ELECTROLYTIC CAPACITORS) Glucose, POC 202(H) 70 - 199 mg/dL Blood 01/23/2024 8:18 AM IMPREGNATOR ELECTROLYTIC CAPACITORS 01/23/2024 8:18 AM IMPREGNATOR ELECTROLYTIC CAPACITORS Result [facility] Ayush Galvez MD LAB POCT ORDERABLES - DEVIC E Final Result Performing Organization Address [facility] de Phone Number [facility] [place] [address] * (ABNORMAL) Troponin I high-sensitivity (01/23/2024 6:12 AM IMPREGNATOR ELECTROLYTIC CAPACITORS) Pathologist [facility] Trop I hs 1,204(C) <=35 ng/L Comment: Previous critical value noted within 48 hours ago. Interpretive Data For further [facility] resources including the diagnostic algorithm and an aid in interpretation, copy and paste this link: [email or web address] Current Interpretive Data last revised 2019. Blood 01/23/2024 6:12 AM IMPREGNATOR ELECTROLYTIC CAPACITORS 01/23/2024 6:31 AM IMPREGNATOR ELECTROLYTIC CAPACITORS Ayush Galvez MD LAB BLOOD ORDERABLES Final Result Performing Organization Address [facility] Co de Phone Number [facility] [place] [address] * (ABNORMAL) eGFR (01/23/2024 2:42 AM IMPREGNATOR ELECTROLYTIC CAPACITORS) Pathologist [facility] eGFR 11(L) >=60 mL/min/1. 73 m2 Comment: [...] last reviewed 2020. Blood 01/23/2024 2:42 AM IMPREGNATOR ELECTROLYTIC CAPACITORS 01/23/2024 3:02 AM IMPREGNATOR ELECTROLYTIC CAPACITORS Ayush Galvez MD LAB BLOOD ORDERABLES Final Result [facility] Department [place] [address] * (ABNORMAL) Differential, auto (01/23/2024 2:42 AM IMPREGNATOR ELECTROLYTIC CAPACITORS) Pathologist [facility] Neutrophil abs 6.7(H) 1.5 - 6.5 K/cumm Imm gran abs 0.1 0.0 - 0.1 K/cumm [facility] Lymphocyte abs 0.1(L) 0.8 - 3.3 K/cumm [facility] Monocyte abs 0.1(L) 0.2 - 0.8 K/cumm [facility] Eosinophil abs 0.0 0.0 - 0.5 K/cumm [facility] Basophil abs 0.0 0.0 - 0.1 K/cumm [facility] Neutrophil pct 96.4 % [facility] Comment: Interpretive Data Percent cell count reference ranges are not reported, since discordance with absolute values may lead to misinterpretation of CBC data. Current Interpretive Data was last revised on 2017. Imm gran pct 0.7 % [facility] Comment: Interpretive Data Percent cell count reference ranges are not reported, since discordance with absolute values may lead to misinterpretation of CBC data. Current Interpretive Data was last revised on 2017. Lymphocyte pct 0.9 % [facility] Comment: Interpretive Data Percent cell count reference ranges are not reported, since discordance with absolute values may lead to misinterpretation of CBC data. Current Interpretive Data was last revised on 2017. Monocyte pct 2.0 % [facility] Comment: Interpretive Data Percent cell count reference ranges are not reported, since discordance with absolute values may lead to misinterpretation of CBC data. Current Interpretive Data was last revised on 2017. Eosinophil pct 0.0 % [facility] Comment: Interpretive Data Percent cell count reference ranges are not reported, since discordance with absolute values may lead to misinterpretation of CBC data. Current Interpretive Data was last revised on 2017. Basophil pct 0.0 % [facility] Comment: Interpretive Data Percent cell count reference ranges are not reported, since discordance with absolute values may lead to misinterpretation of CBC data. Current Interpretive Data was last revised on 2017. Blood 01/23/2024 2:42 AM IMPREGNATOR ELECTROLYTIC CAPACITORS 01/23/2024 3:02 AM IMPREGNATOR ELECTROLYTIC CAPACITORS us Ayush Galvez MD LAB BLOOD ORDERABLES Final Result [facility] One [facility] Department [place] [address] * Tacrolimus level trough (01/23/2024 2:42 AM IMPREGNATOR ELECTROLYTIC CAPACITORS) [facility] Tacrolimus trough 7.8 ng/mL Comment: Interpretive Data Testing performed by liquid chromatography-tandem mass spectrometry. Therapeutic concentrations vary depending on type of transplanted organ and time elapsed since transplant. Typical trough concentrations range from 5-15 ng/mL. This test was developed and its performance characteristics determined by the [facility] consistent with CLIA requirements. This test has not been cleared or approved by the [place] Food and Drug administration. Current interpretive data last reviewed 2019. Blood 01/23/2024 2:42 AM IMPREGNATOR ELECTROLYTIC CAPACITORS 01/23/2024 3:02 AM IMPREGNATOR ELECTROLYTIC CAPACITORS Ayush Galvez MD LAB BLOOD ORDERABLES Final Result Performing Organization Address City/[facility] Co de Phone Number [facility] Department [place] [address] * (ABNORMAL) CBC with auto differential (01/23/2024 2:42 AM IMPREGNATOR ELECTROLYTIC CAPACITORS) WBC 7.0 3.8 - 9.9 K/cumm Hgb 8.8(L) 13.0 - 17.5 g/dL [facility] Hct 26.4(L) 38.9 - 50.3 % [facility] Plt 89(L) 150 - 400 K/cumm [facility] MPV 11.1 9.1 - 12.3 fL [facility] RBC 2.77(L) 4.30 - 5.80 M/cumm [facility] MCV 95.3 81.3 - 96.4 fL [facility] MCH 31.8 27.1 - 33.3 pg [facility] MCHC 33.3 32.3 - 35.7 g/dL [facility] RDW CV 18.2(H) 11.1 - 14.9 % [facility] RDW SD 63.3(H) 35.7 - 48.1 fL [facility] NRBC abs 0.00 0.00 - 0.01 K/cumm [facility] Blood 01/23/2024 2:42 AM IMPREGNATOR ELECTROLYTIC CAPACITORS 01/23/2024 3:02 AM IMPREGNATOR ELECTROLYTIC CAPACITORS Ayush Galvez MD LAB BLOOD ORDERABLES Final Result Performing Organization Address City/[facility]/ZIP Co de Phone Number [facility] Department [place] [address] * Magnesium (01/23/2024 2:42 AM IMPREGNATOR ELECTROLYTIC CAPACITORS) Magnesium 2.5 1.4 - 2.5 mg/dL Blood 01/23/2024 2:42 AM IMPREGNATOR ELECTROLYTIC CAPACITORS 01/23/2024 3:02 AM IMPREGNATOR ELECTROLYTIC CAPACITORS Ayush Galvez MD LAB BLOOD ORDERABLES Final Result [facility] One [facility] Department [place] [address] * (ABNORMAL) Renal function panel (01/23/2024 2:42 AM IMPREGNATOR ELECTROLYTIC CAPACITORS) Sodium 135 135 - 145 mmol/L Potassium, pl 4.7 3.3 - 4.9 mmol/L [facility] Chloride 95(L) 97 - 110 mmol/L [facility] CO2 26 22 - 32 mmol/L [facility] Anion gap 14 2 - 15 mmol/L [facility] BUN 46(H) 6 - 25 mg/dL [facility] Creatinine 5.52(H) 0.80 - 1.30 mg/dL [facility] Glucose 178 70 - 199 mg/dL [facility] Comment: Interpretive Data Fasting glucose >/= 126 [...] 2022. Calcium 9.1 8.5 - 10.3 mg/dL [facility] Phosphorus, pl 7.8(H) 2.3 - 4.5 mg/dL [facility] Albumin 3.3(L) 3.5 - 5.0 g/dL [facility] Blood 01/23/2024 2:42 AM IMPREGNATOR ELECTROLYTIC CAPACITORS 01/23/2024 3:02 AM IMPREGNATOR ELECTROLYTIC CAPACITORS Ayush Galvez MD LAB BLOOD ORDERABLES Final Result Performing Organization Address [facility] Co de Phone Number [facility] Yen [facility] [place] [address] * (ABNORMAL) Troponin I high-sensitivity (01/23/2024 2:41 AM IMPREGNATOR ELECTROLYTIC CAPACITORS) Trop I hs 1,365(C) <=35 ng/L Comment: Previous critical value noted within 48 hours ago. Interpretive Data For further [facility] resources including the diagnostic algorithm and an aid in interpretation, copy and paste this link: [email or web address] Current Interpretive Data last revised 2019. Blood 01/23/2024 2:41 AM IMPREGNATOR ELECTROLYTIC CAPACITORS 01/23/2024 3:14 AM IMPREGNATOR ELECTROLYTIC CAPACITORS Ayush Galvez MD LAB BLOOD ORDERABLES Final Result Performing Organization Address [facility] Co de Phone Number [facility] [place] [address] * ECG 12 lead (01/23/2024 1:02 AM IMPREGNATOR ELECTROLYTIC CAPACITORS) Ventricular Rate EKG/Min 71 BPM [facility] Atrial Rate 250 BPM [facility] QRS-Interval (MSEC) 134 ms [facility] QT-Interval (MSEC) 436 ms [facility] QTc 473 ms [facility] R Lafe 8 degrees [facility] T Lafe 248 degrees [facility] Diagnosis Atrial fibrillation Non-specific intra-ventricula r conduction block T wave abnormality, consider inferolateral ischemia Abnormal ECG When compared with ECG of 22-JAN-2024 15:39, (unconfirmed) No significant change was found Confirmed by JENNIFER BYRD M.D ([id number]) on 01/25/2024 3:00:07 PM [facility] 01/23/2024 1:02 AM IMPREGNATOR ELECTROLYTIC CAPACITORS 01/25/2024 3:00 PM IMPREGNATOR E[employer]ROL[employer]TIC [employer]ACITORS Ayush Galvez MD ECG ORDERABLES Final Resul t [facility] * (ABNORMAL) Troponin I high-sensitivity (01/22/2024 11:14 PM IMPREGNATOR ELECTROLYTIC CAPACITORS) Trop I hs 1,127(C) <=35 ng/L Comment: Previous critical value noted within 48 hours ago. Interpretive Data For further hscTnI resources including the diagnostic algorithm and an aid in interpretation, copy and paste this link: [email or web address] Current Interpretive Data last revised 2019. Blood 01/22/2024 11:1 4 PM IMPREGNATOR E[employer]ROLYTIC CAPACITORS 01/22/2024 11:57 PM IMPREGNATOR E[employer]ROLYTIC CAPACITORS Ayush Galvez MD LAB BLOOD ORDERABLES Final Result Performing Organization Address [facility] Co de Phone Number [facility] [place] [address] * (ABNORMAL) Troponin I high-sensitivity (01/22/2024 11:14 PM IMPREGNATOR ELECTROLYTIC CAPACITORS) Trop I hs 1,220(C) <=35 ng/L Comment: Previous critical value noted within 48 hours ago. Interpretive Data For further hscTnI resources including the diagnostic algorithm and an aid in interpretation, copy and paste this link: [email or web address] Current Interpretive Data last revised 2019. Blood 01/22/2024 11:1 4 PM IMPREGNATOR E[employer]ROLYTIC CAPACITORS 01/22/2024 11:56 PM IMPREGNATOR ELECTROLYTIC CAPACITORS Result [facility] Ayush Galvez MD LAB BLOOD ORDERABLES Final Result Performing Organization Address City/[facility] Co de Phone Number [facility] Department [place] [address] * (ABNORMAL) Differential, auto (01/22/2024 11:14 PM IMPREGNATOR ELECTROLYTIC CAPACITORS) Neutrophil abs 7.1(H) 1.5 - 6.5 K/cumm Imm gran abs 0.0 0.0 - 0.1 K/cumm [facility] Lymphocyte abs 0.0(L) 0.8 - 3.3 K/cumm [facility] Monocyte abs 0.2 0.2 - 0.8 K/cumm [facility] Eosinophil abs 0.0 0.0 - 0.5 K/cumm [facility] Basophil abs 0.0 0.0 - 0.1 K/cumm [facility] Neutrophil pct 96.8 % [facility] Comment: Interpretive Data Percent cell count reference ranges are not reported, since discordance with absolute values may lead to misinterpretation of CBC data. Current Interpretive Data was last revised on 2017. Imm gran pct 0.5 % [facility] Comment: Interpretive Data Percent cell count reference ranges are not reported, since discordance with absolute values may lead to misinterpretation of CBC data. Current Interpretive Data was last revised on 2017. Lymphocyte pct 0.5 % [facility] Comment: Interpretive Data Percent cell count reference ranges are not reported, since discordance with absolute values may lead to misinterpretation of CBC data. Current Interpretive Data was last revised on 2017. Monocyte pct 2.2 % [facility] Comment: Interpretive Data Percent cell count reference ranges are not reported, since discordance with absolute values may lead to misinterpretation of CBC data. Current Interpretive Data was last revised on 2017. Eosinophil pct 0.0 % [facility] Comment: Interpretive Data Percent cell count reference ranges are not reported, since discordance with absolute values may lead to misinterpretation of CBC data. Current Interpretive Data was last revised on 2017. Basophil pct 0.0 % CERNER [facility]J Comment: Interpretive Data Percent cell count reference ranges are not reported, since discordance with absolute values may lead to misinterpretation of CBC data. Current Interpretive Data was last revised on 2017. Blood 01/22/2024 11:1 4 PM [employer] 01/22/2024 11:56 PM [employer] us Larry Travis MD LAB BLOOD ORDERABLE S Final Result Performing Organization Address [facility] de Phone Number [facility] Department [place] [address] * Tacrolimus level trough (01/22/2024 11:14 PM [employer]) [facility] Tacrolimus trough 11.3 ng/mL Comment: reviewed Interpretive Data Testing performed by liquid chromatography-tandem mass spectrometry. Therapeutic concentrations vary depending on type of transplanted organ and time elapsed since transplant. Typical trough concentrations range from 5-15 ng/mL. This test was developed and its performance characteristics determined by the [facility] consistent with CLIA requirements. This test has not been cleared or approved by the [place] Food and Drug administration. Current interpretive data last reviewed 2019. Blood 01/22/2024 11:1 4 PM [employer] 01/22/2024 11:57 PM [employer] us Ayush Galvez MD LAB BLOOD ORDERABLES Final Result Performing Organization Address [facility] de Phone Number [facility] Department [place] [address] * (ABNORMAL) CBC with auto differential (01/22/2024 11:14 PM [employer]) [facility] WBC 7.4 3.8 - 9.9 K/cumm Hgb 8.5(L) 13.0 - 17.5 g/dL [facility] Hct 25.8(L) 38.9 - 50.3 % [facility] Plt 83(L) 150 - 400 K/cumm [facility] MPV 10.5 9.1 - 12.3 fL [facility] RBC 2.69(L) 4.30 - 5.80 M/cumm [facility] MCV 95.9 81.3 - 96.4 fL [facility] MCH 31.6 27.1 - 33.3 pg [facility] MCHC 32.9 32.3 - 35.7 g/dL [facility] RDW CV 17.6(H) 11.1 - 14.9 % [facility] RDW SD 61.2(H) 35.7 - 48.1 fL [facility] NRBC abs 0.00 0.00 - 0.01 K/cumm [facility] Blood 01/22/2024 11:1 4 PM [employer] 01/22/2024 11:56 PM [employer] Ayush Galvez MD LAB BLOOD ORDERABLES Final Result [facility] [place] [address] * Type and screen (01/22/2024 11:14 PM [employer]) ABO Rh O Negative Kusum, indirect Negative [facility] Blood 01/22/2024 11:1 4 PM [employer] 01/23/2024 12:05 AM [employer] Narrative [facility] - 01/23/2024 1:02 AM [employer] Has the patient had Daratumumab or Isatuximab in the past 6 months?->Unknown Ayush Galvez MD LAB BLOOD BANK TEST ORDERAB LES Final Result Performing Organization Address City/[facility]/ZIP Co de Phone Number [facility] [place] [address] * Transfuse RBC (01/22/2024 9:29 PM [employer]) Blood Ayush Galvez MD BLOOD TRANSFUSION ORDERABLE S Final Result [facility] [place] [address] * XR Chest 1 View (01/22/2024 8:41 PM [employer]) Anatomical Region Laterality Modality Body, Chest N/A Computed Radiogr aphy 01/23/2024 7:41 AM [employer] Impressions 01/23/2024 7:52 AM [employer] Comparison is made to chest radiograph dated [...] Erinn Morataya M.D. Narrative 01/23/2024 7:52 AM [employer] EXAMINATION: 1 view chest radiograph Procedure Note [...] it. Electronically signed by: Erinn Morataya M.D. us Ayush Galvez MD IMG XR PROCEDURES Final Res ult * POCT glucose (01/22/2024 8:07 PM [employer]) Glucose, POC 163 70 - 199 mg/dL Blood 01/22/2024 8:07 PM [employer] 01/22/2024 8:07 PM [employer] Ayush Galvez MD LAB POCT ORDERABLES - DEVIC E Final Result [facility] Department [place] [address] * POCT glucose (01/22/2024 6:42 PM [employer]) [facility] Glucose, POC 173 70 - 199 mg/dL Blood 01/22/2024 6:42 PM [employer] 01/22/2024 6:42 PM [employer] Ayush Galvez MD LAB POCT ORDERABLES - DEVIC E Final Result Performing Organization Address [facility]/[place]IP [place] [address] * (ABNORMAL) Troponin I high-sensitivity 6-hour (01/22/2024 6:40 PM [employer]) [facility] Trop I hs 842(C) <=35 ng/L Comment: Previous critical value noted within 48 hours ago. Interpretive Data For further hscTnI resources including the diagnostic algorithm and an aid in interpretation, copy and paste this link: https://bjhlab.testcatalog.org/show/[email or web address] Current Interpretive Data last revised 2019. Trop I hs pct delta 46(C) % [facility] Comment:Previous critical va lue noted within 48 hours ago. Trop I hs interp Significa nt(C) [facility] Comment:Previous critical va lue noted within 48 hours ago. Blood 01/22/2024 6:40 PM [employer] 01/22/2024 6:54 PM [employer] us Sushma Chino MD LAB BLOOD ORDERABLES [place] [address] * TRANSTHORACIC ECHO (TTE) COMPLETE W DOPPLER/CF W CONTRAST (01/22/2024 5:31 PM [employer]) [facility] LV EF 45 % CARDIOREPORT Anatomical Region Laterality Modality Ultrasound 01/22/2024 4:15 PM [employer] Narrative 01/22/2024 5:57 PM [employer] Patient name: Ramone Coleman Date of test: 01/22/2024 Type of test: TTE w/Doppler Hospital #: 0 Date of : 1960 (M) Stopper Maker Helper: Hamida Wilkins RDCS Referring Physician: AYUSH GALVEZ MD Contrast Agent: 0.9 ml Optison Administered, (2.1 ml wasted). Contrast Administered by: SAURAV [id number] Supervised/Interpreted by: Gamaliel Etienne MD Diagnosis: Location: [facility] Reason for test: [id number] ND (NSTEMI) MV Structure: Normal, MV Motion: Normal, [...] 2=Hypo 3=Akinetic 4=Dyskin./Aneurysm 0=Not visualized) Parasternal Long Lafe:MAS=2 BAS=2 MIL=2 HARINDER=2 Parasternal Short Lafe:MAS=2 MIS=2 ND=3 MIL=2 MAL=2 MA=2 Apical 4 Chambers:=2 MIS=2 BIS=2 BAL=2 MAL=2 AL=2 AC=2 Apical 2 Chambers:AI=2 ND=3 BI=2 BA=2 MA=2 AA=2 AC=2 LV Global Longitudinal Strain: RV Global Longitudinal Strain: LV Function: Mild Global reduction in LV Ejection Fraction (EF= 41-51%) RV Function: mild to moderate global hypokinesis Septal Motion: Pericardial Effusion: minimal Atrial Septum: Normal DOPPLER/COLOR FLOW DOPPLER RESULTS: Diastolic Function: indeterminate Tricuspid Valve: mild to mod TR Pulmonic Valve: Mild MN AV Regurgitation: No AR seen AV Stenosis: [...] no MS, mild to mod TR, Mild MN. Diastolic function: indeterminate. LVOT VTI 9.9 cm [...] mild MR. Mild to moderate TR. Mild MN. Est. PASP 30-35 mm Hg. Minimal pericardial effusion. Compared with 10/29/20, there has been a significant decrease in LV function. Confirmed on 01/22/2024 - 17:57:22 by Gamaliel Etienne MD By signing this report, the attending build manager certifies that he or she has personally supervised and interpreted the echocardiogram and has reviewed and or edited and agrees with the written comments contained within the report. Procedure Note Gamaliel Etienne MD - 01/22/2024 Patient name: Ramone Coleman Date of test: 01/22/2024 Type of test: TTE w/Doppler [facility] #: 0 Date of : 1960 (M) Stopper Maker Helper: Hamida Wilkins RUST Referring Physician: AYUSH GALVEZ MD Contrast Agent: 0.9 ml Optison Administered, (2.1 ml wasted). Contrast [place]ered [place]: [place] [id number] Supervised/Interpreted by: Gamaliel Etienne MD Diagnosis: Location: [facility] Reason for test: gfd-US-[id number] ND (NSTEMI) MV Structure: Normal, MV Motion: Normal, [...] 2=Hypo 3=Akinetic 4=Dyskin./Aneurysm 0=Not visualized) Parasternal Long Lafe:MAS=2 BAS=2 MIL=2 HARINDER=2 Parasternal Short Lafe:MAS=2 MIS=2 ND=3 MIL=2 MAL=2 MA=2 Apical 4 Chambers:=2 MIS=2 BIS=2 BAL=2 MAL=2 AL=2 AC=2 Apical 2 Chambers:AI=2 ND=3 BI=2 BA=2 MA=2 AA=2 AC=2 LV Global Longitudinal Strain: RV Global Longitudinal Strain: LV Function: Mild Global reduction in LV Ejection Fraction (EF= 41-51%) RV Function: mild to moderate global hypokinesis Septal Motion: Pericardial Effusion: minimal Atrial Septum: Normal DOPPLER/COLOR FLOW DOPPLER RESULTS: Diastolic Function: indeterminate Tricuspid Valve: mild to mod TR Pulmonic Valve: Mild MN AV Regurgitation: No AR seen AV Stenosis: [...] no MS, mild to mod TR, Mild MN. Diastolic function: indeterminate. LVOT VTI 9.9 cm [...] mild MR. Mild to moderate TR. Mild MN. Est. PASP 30-35 mm Hg. Minimal pericardial effusion. Compared with 10/29/20, there has been a significant decrease in LV function. Confirmed on 01/22/2024 - 17:57:22 by Gamaliel Etienne MD By signing this report, the attending build manager certifies that he or she has personally supervised and interpreted the echocardiogram and has reviewed and or edited and agrees with the written comments contained within the report. us Ayush Galvez MD CV ECHO PROCEDURES Final Re sult * (ABNORMAL) Troponin I high-sensitivity 4-hour (01/22/2024 4:14 PM [employer]) Trop I hs 738(C) <=35 ng/L Comment: Previous critical value noted within 48 hours ago. Interpretive Data For further hscTnI resources including the diagnostic algorithm and an aid in interpretation, copy and paste this link: https://bjhlab.testcatalog.org/show/[email or web address]-[email or web address] Current Interpretive Data last revised 2019. Trop I hs pct delta 28(C) % [facility] Comment:Previous critical va lue noted within 48 hours ago. Trop I hs interp Significa nt(C) [facility] Comment:Previous critical va lue noted within 48 hours ago. Blood 01/22/2024 4:14 PM [employer] 01/22/2024 4:28 PM [employer] Sushma Chino MD LAB BLOOD ORDERABLES Final Resu lt Performing Organization Address City/[facility] Co de Phone Number [facility] [place] [address] * Type and screen (01/22/2024 4:14 PM [employer]) Pathologist [facility] Kusum, indirect Negative ABO Rh O Negative [facility] Blood 01/22/2024 4:14 PM [employer] 01/22/2024 4:25 PM [employer] Narrative [facility] - 01/22/2024 5:19 PM [employer] Has the patient had Daratumumab or Isatuximab in the past 6 months?->Unknown us Rosalie Velásquez NP LAB BLOOD BANK TEST ORDERAB LES Final Result Performing Organization Address [facility] Co de Phone Number [facility] [place] [address] * ECG 12 lead (01/22/2024 3:39 PM [employer]) Ventricular Rate EKG/Min 93 BPM [facility] Atrial Rate 122 BPM [facility] QRS-Interval (MSEC) 134 ms [facility] QT-Interval (MSEC) 408 ms [facility] QTc 507 ms [facility] R Lafe 11 degrees [facility] T Lafe -33 degrees [facility] Diagnosis Atrial fibrillation Non-specific intra-ventricula r conduction block Nonspecific ST and T wave abnormality Abnormal ECG When compared with ECG of 22-JAN-2024 12:59, (unconfirmed) T wave inversion less evident in Anterolateral leads Confirmed by ERICK ARITA M.D ([id number]) on 01/24/2024 5:47:26 AM [facility] 01/22/2024 3:39 PM [employer] 01/24/2024 5:47 AM [employer] us Monster Harding MD ECG ORDERABLES Final R esult [facility] * (ABNORMAL) CBC without differential (01/22/2024 2:07 PM [employer]) WBC 5.3 3.8 - 9.9 K/cumm Hgb 7.7(L) 13.0 - 17.5 g/dL [facility] Hct 23.1(L) 38.9 - 50.3 % [facility] Plt 75(L) 150 - 400 K/cumm [facility] MPV 10.5 9.1 - 12.3 fL [facility] RBC 2.35(L) 4.30 - 5.80 M/cumm [facility] MCV 98.3(H) 81.3 - 96.4 fL [facility] MCH 32.8 27.1 - 33.3 pg [facility] MCHC 33.3 32.3 - 35.7 g/dL [facility] RDW CV 15.5(H) 11.1 - 14.9 % [facility] RDW SD 54.8(H) 35.7 - 48.1 fL [facility] NRBC abs 0.00 0.00 - 0.01 K/cumm [facility] Blood 01/22/2024 2:07 PM [employer] 01/22/2024 2:29 PM [employer] us Ayush Galvez MD LAB BLOOD ORDERABLES Final Result Performing Organization Address City/[facility]/ZIP Co de Phone Number [facility] Department [place] [address] * ECG 12 lead (01/22/2024 12:59 PM [employer]) Pathologist [facility] Ventricular Rate EKG/Min 112 BPM [facility] Atrial Rate 120 BPM [facility] QRS-Interval (MSEC) 126 ms [facility] QT-Interval (MSEC) 296 ms [facility] QTc 404 ms [facility] R Lafe 8 degrees [facility] T Lafe 207 degrees [facility] Diagnosis Atrial fibrillation with rapid ventricular response Non-specific intra-ventricula r conduction block Nonspecific ST and T wave abnormality Abnormal ECG When compared with ECG of 21-JAN-2024 05:17, (unconfirmed) Atrial fibrillation has replaced Sinus rhythm ST now depressed in Anterior leads T wave inversion now evident in Anterolateral leads Confirmed by ERICK ARITA M.D ([id number]) on 01/24/2024 5:44:44 AM [facility] 01/22/2024 12:5 9 PM [employer] 01/24/2024 5:44 AM [employer] Sushma Chino MD ECG ORDERABLES Final Result [facility] * (ABNORMAL) Troponin I high-sensitivity series (baseline, 2hr, 4hr, 6hr) (01/22/2024 12:18 PM [employer]) Pathologist [facility] Trop I hs 575(C) <=35 ng/L Comment: Interpretive Data For further hscTnI resources including the diagnostic algorithm and an aid in interpretation, copy and paste this link: [email or web address].testcatalog.org/show/[email or web address] Current Interpretive Data last revised 2019. Blood 01/22/2024 12:1 8 PM [employer] 01/22/2024 12:36 PM [employer] Sushma Chino MD LAB BLOOD ORDERABLES Final Resu lt [facility]DA [facility] Department [place] [address] * Critical result callback Cardio chemistry (01/22/2024 12:18 PM [employer]) Date Notified [id number] Time Notified [id number] LINDA BALLARD Test name Braden rob LINDA BALLARD Called/Read Back Clarissa Dominguez Credentials RN LINDA BALLARD Called By CHANDA BALLARD Blood 01/22/2024 12:1 8 PM [employer] 01/22/2024 12:36 PM [employer] Sushma Chino MD LAB BLOOD ORDERABLES Final Resu lt LINDA [facility] Department [place] [address] * (ABNORMAL) eGFR (01/22/2024 12:18 PM [employer]) eGFR 13(L) >=60 mL/min/1. 73 m2 Comment: [...] reviewed 2020. Blood 01/22/2024 12:1 8 PM [employer] 01/22/2024 12:36 PM [employer] Sushma Chino MD LAB BLOOD ORDERABLES Final Resu lt Performing Organization Address City/[facility] Co de Phone Number [facility] Department [place] [address] * (ABNORMAL) Phosphorus (01/22/2024 12:18 PM [employer]) Pathologist [facility] Phosphorus, pl 5.8(H) 2.3 - 4.5 mg/dL Blood 01/22/2024 12:1 8 PM [employer] 01/22/2024 12:36 PM [employer] Sushma Chino MD LAB BLOOD ORDERABLES Final Resu lt Performing Organization Address [facility] Co de Phone Number [facility] [place] [address] * Magnesium (01/22/2024 12:18 PM [employer]) [facility] Magnesium 1.8 1.4 - 2.5 mg/dL Blood 01/22/2024 12:1 8 PM [employer] 01/22/2024 12:36 PM [employer] Sushma Chino MD LAB BLOOD ORDERABLES Final Resu lt Performing Organization Address [facility] Co de Phone Number [facility] [place] [address] * (ABNORMAL) Basic metabolic panel (01/22/2024 12:18 PM [employer]) [facility] Sodium 135 135 - 145 mmol/L Potassium, pl 4.0 3.3 - 4.9 mmol/L [facility] Chloride 94(L) 97 - 110 mmol/L [facility] CO2 26 22 - 32 mmol/L [facility] Anion gap 15 2 - 15 mmol/L [facility] BUN 33(H) 6 - 25 mg/dL [facility] Creatinine 4.67(H) 0.80 - 1.30 mg/dL [facility] Glucose 130 70 - 199 mg/dL [facility] Comment: Interpretive Data Fasting glucose >/= 126 [...] 2022. Calcium 8.6 8.5 - 10.3 mg/dL [facility] Blood 01/22/2024 12:1 8 PM [employer] 01/22/2024 12:36 PM [employer] Sushma Chino MD LAB BLOOD ORDERABLES Final Resu lt Performing Organization Address [facility] Co de Phone Number [facility] Department [place] [address] * POCT glucose (01/22/2024 11:35 AM [employer]) Glucose, POC 134 70 - 199 mg/dL Blood 01/22/2024 11:3 5 AM [employer] 01/22/2024 11:35 AM [employer] Ayush Galvez MD LAB POCT ORDERABLES - DEVIC E Final Result Performing Organization Address [facility] de Phone Number [facility] Department [place] [address] * XR Abdomen Ap 1 Vw (01/22/2024 10:29 AM [employer]) Anatomical Region Laterality Modality Body, Abdomen N/A Computed Radiogr aphy 01/22/2024 10:3 9 AM [employer] Impressions 01/22/2024 11:52 AM [employer] A single view of the abdomen is [...] Mohsen Vallejo M.D. Narrative 01/22/2024 11:52 AM [employer] EXAMINATION: Abdomen, one view. HISTORY: Abdominal closure [...] IMG XR PROCEDURES Final Re sult * MN AN ELECTIVE ENDOTRACHEAL AIRWAY, MN AN PROCEDURE PLACEHOLDER (01/22/2024 9:42 AM [employer]) Narrative Nisa Patricia CRNA - 01/22/2024 9:42 AM [employer] Nisa Patricia CRNA 01/22/2024 9:56 AM Airway [...] Final * (ABNORMAL) eGFR (01/22/2024 9:02 AM [employer]) eGFR 13(L) >=60 mL/min/1. 73 m2 Comment: [...] last reviewed 2020. Blood 01/22/2024 9:02 AM [employer] 01/22/2024 9:25 AM [employer] us Mathieu Hayden MD LAB BLOOD ORDERABLES Final Result LINDA BALLARD [facility] Department [place] [address] * (ABNORMAL) Basic metabolic panel (01/22/2024 9:02 AM [employer]) Sodium 134(L) 135 - 145 mmol/L Potassium, pl 4.1 3.3 - 4.9 mmol/L [facility] Chloride 92(L) 97 - 110 mmol/L [facility] CO2 27 22 - 32 mmol/L [facility] Anion gap 15 2 - 15 mmol/L [facility] BUN 32(H) 6 - 25 mg/dL [facility] Creatinine 4.62(H) 0.80 - 1.30 mg/dL [facility] Glucose 168 70 - 199 mg/dL [facility] Comment: Interpretive Data Fasting glucose >/= 126 [...] 2022. Calcium 9.2 8.5 - 10.3 mg/dL [facility] Blood 01/22/2024 9:02 AM [employer] 01/22/2024 9:25 AM [employer] Mathieu Hayden MD LAB BLOOD ORDERABLES Final Result Performing Organization Address [facility] Co de Phone Number [facility] Department [place] [address] * POCT glucose (01/22/2024 9:01 AM IMP[employer]IT[employer]) Glucose, POC 177 70 - 199 mg/dL Blood 01/22/2024 9:01 AM [employer] 01/22/2024 9:01 AM [employer] Ayush Galvez MD LAB POCT ORDERABLES - DEVIC E Final Result Performing Organization Address [facility]/ZIP Co de Phone Number [facility] Department [place] [address] * POCT glucose (01/22/2024 8:26 AM IMP[employer]ATOR [employer]IT[employer]) Glucose, POC 154 70 - 199 mg/dL Blood 01/22/2024 8:26 AM [employer] 01/22/2024 8:26 AM [employer] us Ayush Galvez MD LAB POCT ORDERABLES - DEVIC E Final Result Performing Organization Address City/[facility] Co de Phone Number [facility] [place] [address] * (ABNORMAL) eGFR (01/22/2024 4:58 AM IMP[employer]) Pathologist [facility] eGFR 15(L) >=60 mL/min/1. 73 m2 Comment: [...] last reviewed 2020. Blood 01/22/2024 4:58 AM [employer] 01/22/2024 5:46 AM [employer] us Larry Travis MD LAB BLOOD ORDERABLE S Final Result Performing Organization Address City/[facility]/ZIP Co de Phone Number LINDA [facility] [place] [address] * (ABNORMAL) Differential, auto (01/22/2024 4:58 AM [employer]) Neutrophil abs 5.8 1.5 - 6.5 K/cumm Imm gran abs 0.0 0.0 - 0.1 K/cumm [facility] Lymphocyte abs 0.0(L) 0.8 - 3.3 K/cumm [facility] Monocyte abs 0.2 0.2 - 0.8 K/cumm [facility] Eosinophil abs 0.0 0.0 - 0.5 K/cumm [facility] Basophil abs 0.0 0.0 - 0.1 K/cumm [facility] Neutrophil pct 96.0 % [facility] Comment: Interpretive Data Percent cell count reference ranges are not reported, since discordance with absolute values may lead to misinterpretation of CBC data. Current Interpretive Data was last revised on 2017. Imm gran pct 0.3 % [facility] Comment: Interpretive Data Percent cell count reference ranges are not reported, since discordance with absolute values may lead to misinterpretation of CBC data. Current Interpretive Data was last revised on 2017. Lymphocyte pct 0.7 % [facility] Comment: Interpretive Data Percent cell count reference ranges are not reported, since discordance with absolute values may lead to misinterpretation of CBC data. Current Interpretive Data was last revised on 2017. Monocyte pct 3.0 % [facility] Comment: Interpretive Data Percent cell count reference ranges are not reported, since discordance with absolute values may lead to misinterpretation of CBC data. Current Interpretive Data was last revised on 2017. Eosinophil pct 0.0 % [facility] Comment: Interpretive Data Percent cell count reference ranges are not reported, since discordance with absolute values may lead to misinterpretation of CBC data. Current Interpretive Data was last revised on 2017. Basophil pct 0.0 % [facility] Comment: Interpretive Data Percent cell count reference ranges are not reported, since discordance with absolute values may lead to misinterpretation of CBC data. Current Interpretive Data was last revised on 2017. Blood 01/22/2024 4:58 AM [employer] 01/22/2024 5:45 AM [employer] Larry Travis MD LAB BLOOD ORDERABLE S Final Result Performing Organization Address [facility] Co de Phone Number LINDA [facility] [place] [address] * Tacrolimus level trough (01/22/2024 4:58 AM [employer]) [facility] Tacrolimus trough 4.7 ng/mL Comment: Interpretive Data Testing performed by liquid chromatography-tandem mass spectrometry. Therapeutic concentrations vary depending on type of transplanted organ and time elapsed since transplant. Typical trough concentrations range from 5-15 ng/mL. This test was developed and its performance characteristics determined by the [facility] consistent with CLIA requirements. This test has not been cleared or approved by the [place] Food and Drug administration. Current interpretive data last reviewed 2019. Blood 01/22/2024 4:58 AM [employer] 01/22/2024 5:46 AM [employer] Ayush Galvez MD LAB BLOOD ORDERABLES Final Result Performing Organization Address [facility] Co de Phone Number [facility] [place] [address] * (ABNORMAL) CBC with auto differential (01/22/2024 4:58 AM [employer]) [facility] WBC 6.0 3.8 - 9.9 K/cumm Hgb 8.2(L) 13.0 - 17.5 g/dL [facility] Hct 23.8(L) 38.9 - 50.3 % [facility] Plt 79(L) 150 - 400 K/cumm [facility] MPV 10.2 9.1 - 12.3 fL [facility] RBC 2.48(L) 4.30 - 5.80 M/cumm [facility] MCV 96.0 81.3 - 96.4 fL [facility] MCH 33.1 27.1 - 33.3 pg [facility] MCHC 34.5 32.3 - 35.7 g/dL [facility] RDW CV 15.3(H) 11.1 - 14.9 % [facility] RDW SD 53.1(H) 35.7 - 48.1 fL [facility] NRBC abs 0.00 0.00 - 0.01 K/cumm [facility] Blood 01/22/2024 4:58 AM [employer] 01/22/2024 5:45 AM [employer] Ayush Galvez MD LAB BLOOD ORDERABLES Final Result [facility] [place] [address] * Magnesium (01/22/2024 4:58 AM [employer]) Pathologist [facility] Magnesium 2.2 1.4 - 2.5 mg/dL Blood 01/22/2024 4:58 AM [employer] 01/22/2024 5:46 AM [employer] us Ayush Galvez MD LAB BLOOD ORDERABLES Final Result Performing Organization Address City/[facility] Co de Phone Number [facility] [place] [address] * (ABNORMAL) Lactate dehydrogenase (LD) (01/22/2024 4:58 AM [employer]) Lactate dehydrogenase (LDH) 252(H) 100 - 250 Units/L Blood 01/22/2024 4:58 AM [employer] 01/22/2024 5:46 AM [employer] Ayush Galvez MD LAB BLOOD ORDERABLES Final Result Performing Organization Address City/[facility] [place] [address] * Haptoglobin (01/22/2024 4:58 AM [employer]) Haptoglobin 116.0 30.0 - 200.0 mg/dL Blood 01/22/2024 4:58 AM [employer] 01/22/2024 5:46 AM [employer] Ayush Galvez MD LAB BLOOD ORDERABLES Final Result [facility] One [facility] Department [place] [address] * (ABNORMAL) Renal function panel (01/22/2024 4:58 AM [employer]) Pathologist [facility] Sodium 134(L) 135 - 145 mmol/L Potassium, pl 4.4 3.3 - 4.9 mmol/L [facility] Chloride 93(L) 97 - 110 mmol/L [facility] CO2 30 22 - 32 mmol/L [facility] Anion gap 11 2 - 15 mmol/L [facility] BUN 29(H) 6 - 25 mg/dL [facility] Creatinine 4.19(H) 0.80 - 1.30 mg/dL [facility] Glucose 125 70 - 199 mg/dL [facility] Comment: Interpretive Data Fasting glucose >/= 126 [...] 2022. Calcium 9.2 8.5 - 10.3 mg/dL [facility] Phosphorus, pl 5.6(H) 2.3 - 4.5 mg/dL [facility] Albumin 3.4(L) 3.5 - 5.0 g/dL [facility] Blood 01/22/2024 4:58 AM [employer] 01/22/2024 5:46 AM [employer] Ayush Galvez MD LAB BLOOD ORDERABLES Final Result Performing Organization Address [facility] Co de Phone Number [facility] [place] [address] * (ABNORMAL) POCT glucose (01/21/2024 8:34 PM [employer]) Glucose, POC 238(H) 70 - 199 mg/dL Blood 01/21/2024 8:34 PM [employer] 01/21/2024 8:34 PM [employer] Ayush Galvez MD LAB POCT ORDERABLES - DEVIC E Final Result Performing Organization Address [facility] de Phone Number [facility] [place] [address] * (ABNORMAL) POCT glucose (01/21/2024 6:37 PM [employer]) Glucose, POC 202(H) 70 - 199 mg/dL Blood 01/21/2024 6:37 PM [employer] 01/21/2024 6:37 PM [employer] Ayush Galvez MD LAB POCT ORDERABLES - DEVIC E Final Result Performing Organization Address [facility] Co de Phone Number [facility] [place] [address] * (ABNORMAL) Potassium, whole blood (01/21/2024 4:22 PM [employer]) Potassium, bld 6.0(H) 3.3 - 4.9 mmol/L Blood 01/21/2024 4:22 PM [employer] 01/21/2024 4:32 PM [employer] us Rosalie Velásquez NP LAB BLOOD ORDERABLES Final Result Performing Organization Address [facility] Co de Phone Number [facility] [place] [address] * (ABNORMAL) CBC without differential (01/21/2024 1:51 PM [employer]) WBC 14.5(H) 3.8 - 9.9 K/cumm Hgb 8.5(L) 13.0 - 17.5 g/dL [facility] Hct 25.8(L) 38.9 - 50.3 % [facility] Plt 101(L) 150 - 400 K/cumm [facility] MPV 10.4 9.1 - 12.3 fL [facility] RBC 2.61(L) 4.30 - 5.80 M/cumm [facility] MCV 98.9(H) 81.3 - 96.4 fL [facility] MCH 32.6 27.1 - 33.3 pg [facility] MCHC 32.9 32.3 - 35.7 g/dL [facility] RDW CV 15.6(H) 11.1 - 14.9 % [facility] RDW SD 55.2(H) 35.7 - 48.1 fL [facility] NRBC abs 0.00 0.00 - 0.01 K/cumm [facility] Blood 01/21/2024 1:51 PM [employer] 01/21/2024 2:12 PM [employer] us Susi LEE LAB BLOOD ORDERABLES Final Result Performing Organization Address City/[facility]/ZIP Co de Phone Number [facility] Department [place] [address] * POCT glucose (01/21/2024 12:26 PM [employer]) Pathologist [facility] Glucose, POC 178 70 - 199 mg/dL Blood 01/21/2024 12:2 6 PM [employer] 01/21/2024 12:26 PM [employer] Ayush Galvez MD LAB POCT ORDERABLES - DEVIC E Final Result Performing Organization Address City/[facility]/ZIP Co de Phone Number [facility] [place] [address] * [place] AN PROCEDURE PLACEHOLDER (01/21/2024 10:41 AM [employer]) Narrative Roscoe Sandhu MD - 01/21/2024 10:41 AM [employer] Roscoe Sandhu MD 01/21/2024 10:43 AM Arterial [...] sult * (ABNORMAL) Potassium (01/21/2024 8:39 AM [employer]) Potassium, pl 6.1(H) 3.3 - 4.9 mmol/L Blood 01/21/2024 8:39 AM [employer] 01/21/2024 9:10 AM [employer] Narrative [facility] - 01/21/2024 9:32 AM [employer] Provider to discontinue after two normal results. Ayush Galvez MD LAB BLOOD ORDERABLES Final Result [facility] One [facility] Department [place] [address] * (ABNORMAL) POCT glucose (01/21/2024 8:10 AM [employer]) Glucose, POC 297(H) 70 - 199 mg/dL Blood 01/21/2024 8:10 AM [employer] 01/21/2024 8:10 AM [employer] Ayush Galvez MD LAB POCT ORDERABLES - DEVIC E Final Result Performing Organization Address [facility] de Phone Number [facility] [place] [address] * (ABNORMAL) POCT glucose (01/21/2024 6:47 AM [employer]) Glucose, POC 236(H) 70 - 199 mg/dL Blood 01/21/2024 6:47 AM [employer] 01/21/2024 6:47 AM [employer] Ayush Galvez MD LAB POCT ORDERABLES - DEVIC E Final Result Performing Organization Address [facility] de Phone Number [facility] [place] [address] * (ABNORMAL) POCT glucose (01/21/2024 5:46 AM [employer]) Glucose, POC 234(H) 70 - 199 mg/dL Blood 01/21/2024 5:46 AM [employer] 01/21/2024 5:46 AM [employer] Ayush Galvez MD LAB POCT ORDERABLES - DEVIC E Final Result Performing Organization Address [facility] de Phone Number [facility] [place] [address] * (ABNORMAL) Potassium, whole blood (01/21/2024 5:22 AM [employer]) Potassium, bld 5.7(H) 3.3 - 4.9 mmol/L Comment:No hemolyse Blood 01/21/2024 5:22 AM [employer] 01/21/2024 5:28 AM [employer] Ayush Galvez MD LAB BLOOD ORDERABLES Final Result Performing Organization Address [facility] Co de Phone Number [facility] Department [place] [address] * ECG 12 lead (01/21/2024 5:17 AM [employer]) Pathologist [facility] Ventricular Rate EKG/Min 82 BPM [facility] Atrial Rate 82 BPM [facility] MN-Interval (MSEC) 256 ms [facility] QRS-Interval (MSEC) 132 ms [facility] QT-Interval (MSEC) 408 ms [facility] QTc 476 ms [facility] P Lafe 71 degrees [facility] R Lafe 13 degrees [facility] T Lafe -20 degrees [facility] Diagnosis Sinus rhythm with marked sinus arrhythmia with 1st degree A-V block Non-specific intra-ventricu lar conduction block Abnormal ECG When compared with ECG of 17-SEP-2023 08:34, No significant change was found Confirmed by JENNIFER BYRD M.D ([id number]) on 01/22/2024 5:00:18 PM [facility] 01/21/2024 5:17 AM [employer] 01/22/2024 5:00 PM [employer] us Ayush Galvez MD ECG ORDERABLES Final Resul t [facility] * (ABNORMAL) eGFR (01/21/2024 4:18 AM [employer]) Pathologist [facility] eGFR 10(L) >=60 mL/min/1. 73 m2 Comment: [...] of Race in Diagnosing Kidney Disease, JASN 2021). The CKD-EPI equation should not be used for patients with unstable renal function and has not been validated in children and those over 70. Current interpretive data was last reviewed 2020. Blood 01/21/2024 4:18 AM [employer] 01/21/2024 4:33 AM [employer] us Larry Travis MD LAB BLOOD ORDERABLE S Final Result [facility] One [facility] Department [place] [address] * (ABNORMAL) Differential, auto (01/21/2024 4:18 AM [employer]) Neutrophil abs 10.2(H) 1.5 - 6.5 K/cumm Imm gran abs 0.0 0.0 - 0.1 K/cumm [facility] Lymphocyte abs 0.0(L) 0.8 - 3.3 K/cumm [facility] Monocyte abs 0.2 0.2 - 0.8 K/cumm [facility] Eosinophil abs 0.0 0.0 - 0.5 K/cumm [facility] Basophil abs 0.0 0.0 - 0.1 K/cumm [facility] Neutrophil pct 97.4 % [facility] Comment: Interpretive Data Percent cell count reference ranges are not reported, since discordance with absolute values may lead to misinterpretation of CBC data. Current Interpretive Data was last revised on 2017. Imm gran pct 0.4 % [facility] Comment: Interpretive Data Percent cell count reference ranges are not reported, since discordance with absolute values may lead to misinterpretation of CBC data. Current Interpretive Data was last revised on 2017. Lymphocyte pct 0.2 % [facility] Comment: Interpretive Data Percent cell count reference ranges are not reported, since discordance with absolute values may lead to misinterpretation of CBC data. Current Interpretive Data was last revised on 2017. Monocyte pct 1.9 % [facility] Comment: Interpretive Data Percent cell count reference ranges are not reported, since discordance with absolute values may lead to misinterpretation of CBC data. Current Interpretive Data was last revised on 2017. Eosinophil pct 0.0 % [facility] Comment: Interpretive Data Percent cell count reference ranges are not reported, since discordance with absolute values may lead to misinterpretation of CBC data. Current Interpretive Data was last revised on 2017. Basophil pct 0.1 % [facility] Comment: Interpretive Data Percent cell count reference ranges are not reported, since discordance with absolute values may lead to misinterpretation of CBC data. Current Interpretive Data was last revised on 2017. Blood 01/21/2024 4:18 AM [employer] 01/21/2024 4:34 AM [employer] Larry Travis MD LAB BLOOD ORDERABLE S Final Result Performing Organization Address City/[facility] Co de Phone Number [facility] Department [place] [address] * Critical Result Callback Chemistry (01/21/2024 4:18 AM [employer]) Date Notified [id number] Time Notified [facility] TestName Potassium Plas LINDA BALLARD Called/Read Back Vibha [facility] Credentials RN [facility] Called By SANDEEP [facility] Blood 01/21/2024 4:18 AM [employer] 01/21/2024 4:33 AM [employer] Larry Travis MD LAB BLOOD ORDERABLE S Final Result Performing Organization Address City/[facility] Co de Phone Number [facility] Department [place] [address] * Tacrolimus level trough (01/21/2024 4:18 AM [employer]) Tacrolimus trough <1.0 ng/mL Comment: Undetectable. Please verify that the correct immunosuppressant test was requested. Interpretive Data Testing performed by liquid chromatography-tandem mass spectrometry. Therapeutic concentrations vary depending on type of transplanted organ and time elapsed since transplant. Typical trough concentrations range from 5-15 ng/mL. This test was developed and its performance characteristics determined by the [facility] consistent with CLIA requirements. This test has not been cleared or approved by the [place] Food and Drug administration. Current interpretive data last reviewed 2019. Blood 01/21/2024 4:18 AM [employer] 01/21/2024 4:34 AM [employer] Ayush Galvez MD LAB BLOOD ORDERABLES Final Result Performing Organization Address City/[facility]/ZIP Co de Phone Number [facility] Department [place] [address] * (ABNORMAL) CBC with auto differential (01/21/2024 4:18 AM [employer]) WBC 10.5(H) 3.8 - 9.9 K/cumm Hgb 8.7(L) 13.0 - 17.5 g/dL [facility] Hct 25.8(L) 38.9 - 50.3 % [facility] Plt 110(L) 150 - 400 K/cumm [facility] MPV 9.7 9.1 - 12.3 fL [facility] RBC 2.66(L) 4.30 - 5.80 M/cumm [facility] MCV 97.0(H) 81.3 - 96.4 fL [facility] MCH 32.7 27.1 - 33.3 pg [facility] MCHC 33.7 32.3 - 35.7 g/dL [facility] RDW CV 15.9(H) 11.1 - 14.9 % [facility] RDW SD 55.3(H) 35.7 - 48.1 fL [facility] NRBC abs 0.00 0.00 - 0.01 K/cumm [facility] Blood 01/21/2024 4:18 AM [employer] 01/21/2024 4:34 AM [employer] Ayush Galvez MD LAB BLOOD ORDERABLES Final Result Performing Organization Address [facility]/ZIP Co de Phone Number [facility] Department [place] [address] * Magnesium (01/21/2024 4:18 AM [employer]) Magnesium 2.1 1.4 - 2.5 mg/dL Blood 01/21/2024 4:18 AM [employer] 01/21/2024 4:33 AM [employer] Ayush Galvez MD LAB BLOOD ORDERABLES Final Result [facility] One [facility] Department [place] [address] * (ABNORMAL) Renal function panel (01/21/2024 4:18 AM IMP[employer]) Pathologist [facility] Sodium 135 135 - 145 mmol/L Potassium, pl 6.4(C) 3.3 - 4.9 mmol/L [facility] Chloride 94(L) 97 - 110 mmol/L [facility] CO2 25 22 - 32 mmol/L [facility] Anion gap 16(H) 2 - 15 mmol/L [facility] BUN 34(H) 6 - 25 mg/dL [facility] Creatinine 5.99(H) 0.80 - 1.30 mg/dL [facility] Glucose 217(H) 70 - 199 mg/dL [facility] Comment: Interpretive Data Fasting glucose >/= 126 [...] 2022. Calcium 9.0 8.5 - 10.3 mg/dL [facility] Phosphorus, pl 6.5(H) 2.3 - 4.5 mg/dL [facility] Albumin 3.5 3.5 - 5.0 g/dL [facility] Blood 01/21/2024 4:18 AM [employer] 01/21/2024 4:33 AM [employer] us Ayush Galvez MD LAB BLOOD ORDERABLES Final Result [facility] One [facility] Department [place] [address] * US Renal Transplant W Dopplers (01/20/2024 11:24 PM [employer]) Anatomical Region Laterality Modality Kidney N/A Ultrasound 01/21/2024 1:42 AM [employer] Impressions 01/21/2024 8:21 AM [employer] 1. Normal transplant kidney morphology without hydronephrosis. [...] Kyle Perez M.D. Narrative 01/21/2024 8:21 AM [employer] EXAMINATION: RENAL TRANSPLANT ULTRASOUND WITH DOPPLER HISTORY: [...] * (ABNORMAL) POCT glucose (01/20/2024 8:56 PM [employer]) Glucose, POC 263(H) 70 - 199 mg/dL Blood 01/20/2024 8:56 PM [employer] 01/20/2024 8:56 PM [employer] us Ayush Galvez MD LAB POCT ORDERABLES - DEVIC E Final Result [facility] Department [place] [address] * XR Chest 1 View (01/20/2024 5:58 PM [employer]) Anatomical Region Laterality Modality Body, Chest N/A Computed Radiogr aphy 01/21/2024 9:14 AM [employer] Impressions 01/21/2024 9:14 AM [employer] Comparison 01/18/2024. Sternal plates and wires are aligned and intact. Right internal jugular central venous catheter tip overlies superior vena cava. Mild bibasilar opacity may represent a combination of mild edema and atelectasis superimposed on underlying chronic interstitial lung disease, unchanged given the smaller lung volumes. No pneumothorax seen. Cardiomediastinal silhouette stable. Electronically signed by: Omar Hollins M.D. Narrative 01/21/2024 9:14 AM [employer] EXAMINATION: 1 view chest radiograph Procedure Note [...] esult * (ABNORMAL) eGFR (01/20/2024 5:08 PM [employer]) eGFR 12(L) >=60 mL/min/1. 73 m2 Comment: [...] last reviewed 2020. Blood 01/20/2024 5:08 PM [employer] 01/20/2024 5:27 PM [employer] Larry Travis MD LAB BLOOD ORDERABLE S Final Result Performing Organization Address City/[facility]/ZIP Co de Phone Number [facility] Department [place] [address] * (ABNORMAL) CBC without differential (01/20/2024 5:08 PM [employer]) WBC 11.3(H) 3.8 - 9.9 K/cumm Hgb 9.4(L) 13.0 - 17.5 g/dL [facility] Hct 28.1(L) 38.9 - 50.3 % [facility] Plt 134(L) 150 - 400 K/cumm [facility] MPV 9.4 9.1 - 12.3 fL [facility] RBC 2.88(L) 4.30 - 5.80 M/cumm [facility] MCV 97.6(H) 81.3 - 96.4 fL [facility] MCH 32.6 27.1 - 33.3 pg [facility] MCHC 33.5 32.3 - 35.7 g/dL [facility] RDW CV 15.4(H) 11.1 - 14.9 % [facility] RDW SD 54.8(H) 35.7 - 48.1 fL [facility] NRBC abs 0.03(H) 0.00 - 0.01 K/cumm [facility] Blood 01/20/2024 5:08 PM [employer] 01/20/2024 5:27 PM [employer] Larry Travis MD LAB BLOOD ORDERABLE S Final Result Performing Organization Address City/[facility]/ZIP Co de Phone Number [facility] Department [place] [address] * (ABNORMAL) Renal function panel (01/20/2024 5:08 PM [employer]) [facility] Sodium 136 135 - 145 mmol/L Potassium, pl 5.0(H) 3.3 - 4.9 mmol/L [facility] Chloride 95(L) 97 - 110 mmol/L [facility] CO2 27 22 - 32 mmol/L [facility] Anion gap 14 2 - 15 mmol/L [facility] [facility] BUN 25 6 - 25 mg/dL [facility] Creatinine 5.21(H) 0.80 - 1.30 mg/dL [facility] Glucose 180 70 - 199 mg/dL [facility] Comment: Interpretive Data Fasting glucose >/= 126 [...] 2022. Calcium 9.0 8.5 - 10.3 mg/dL [facility] Phosphorus, pl 6.0(H) 2.3 - 4.5 mg/dL [facility] Albumin 3.3(L) 3.5 - 5.0 g/dL [facility] Blood 01/20/2024 5:08 PM [employer] 01/20/2024 5:27 PM [employer] Larry Travis MD LAB BLOOD ORDERABLE S Final Result LINDA BALLARD Yen [facility] Department [place] [address] * POCT glucose (01/20/2024 4:51 PM [employer]) Glucose, POC 162 70 - 199 mg/dL Blood 01/20/2024 4:51 PM [employer] 01/20/2024 4:51 PM [employer] us Larry Travis MD LAB POCT ORDERABLES - DEVICE Final Result [facility] Department [place] [address] * (ABNORMAL) POC Blood Gas and Chemistries, Arterial - (01/20/2024 4:23 PM [employer]) [facility] pH, Art POC 7.33(L) 7.35 - 7.45 pCO2, Art POC 54(H) 35 - 45 mmHg [facility] pO2, Art POC 104 83 - 108 mmHg [facility] Na, POC 135 135 - 145 mmol/L [facility] K POC 5.2(H) 3.3 - 4.9 mmol/L [facility] Comment: Interpretive Data Not all point of care methods assess for hemolysis. Confirm with instrument and retest K+ if not consistent with clinical signs and symptoms. Current Interpretive Data was last revised on 2023. Cl, POC 99 97 - 110 mmol/L [facility] Ionized Ca, POC 4.82 4.50 - 5.10 mg/dL [facility] Glucose, POC 171 70 - 199 mg/dL [facility] Lactate, POC 2.6(H) 0.7 - 2.2 mmol/L [facility] SO2 (elvia) arterial 99(H) 90 - 95 % [facility] Base excess, POC 1.9 mmol/L [facility] Hct, POC 30.0(L) 41.4 - 51.6 % [facility] Total Hb, POC 9.9(L) 13.8 - 17.2 g/dL [facility] Blood 01/20/2024 4:23 PM [employer] 01/20/2024 4:23 PM [employer] Larry Travis MD LAB POCT ORDERABLES - DEVICE Final Result [facility] Department [place] [address] * Transfuse RBC (01/20/2024 4:00 PM [employer]) Blood us Roscoe Sandhu MD BLOOD TRANSFUSION ORDERABLES F inal Result Performing Organization Address [facility] Co de Phone Number [facility] Department [place] [address] * (ABNORMAL) POC Blood Gas and Chemistries, Arterial - (01/20/2024 3:09 PM [employer]) pH, Art POC 7.42 7.35 - 7.45 pCO2, Art POC 47(H) 35 - 45 mmHg [facility] pO2, Art POC 77(L) 83 - 108 mmHg [facility] Na, POC 135 135 - 145 mmol/L [facility] K POC 5.2(H) 3.3 - 4.9 mmol/L [facility] Comment: Interpretive Data Not all point of care methods assess for hemolysis. Confirm with instrument and retest K+ if not consistent with clinical signs and symptoms. Current Interpretive Data was last revised on 2023. Ionized Ca, POC 4.79 4.50 - 5.10 mg/dL [facility] Glucose, POC 134 70 - 199 mg/dL [facility] Lactate, POC 1.5 0.7 - 2.2 mmol/L [facility] SO2 (elvia) arterial 98(H) 90 - 95 % [facility] Base excess, POC 5.3 mmol/L [facility] Hct, POC 29.0(L) 41.4 - 51.6 % [facility] Total Hb, POC 9.8(L) 13.8 - 17.2 g/dL [facility] Blood 01/20/2024 3:09 PM [employer] 01/20/2024 3:09 PM [employer] us Larry Travis MD LAB POCT ORDERABLES - DEVICE Final Result Performing Organization Address [facility]/ZIP Co de Phone Number LINDA BALLARD Yen [facility] Department [place] [address] * POCT glucose (01/20/2024 2:41 PM [employer]) Glucose, POC 108 70 - 199 mg/dL Blood 01/20/2024 2:41 PM [employer] 01/20/2024 2:41 PM [employer] us Larry Travis MD LAB POCT ORDERABLES - DEVICE Final Result Performing Organization Address [facility] Co de Phone Number LINDA [facility] Yen [facility] [place] [address] * Central Venous Line (01/20/2024 2:37 PM [employer]) Narrative Elizabeth Castellano MD - 01/20/2024 2:37 PM [employer] Elizabeth Castellano MD 01/20/2024 2:38 PM Central [...] patient tolerated procedure well with no complications Roscoe Sandhu MD ANESTHESIA ORDERABLES Final Re sult * Airway (01/20/2024 1:37 PM [employer]) Narrative Elizabeth Castellano MD - 01/20/2024 1:37 PM [employer] Elizabeth Castellano MD 01/20/2024 1:37 PM Airway [...] sult * POCT glucose (01/20/2024 11:12 AM [employer]) Glucose, POC 132 70 - 199 mg/dL Blood 01/20/2024 11:1 2 AM [employer] 01/20/2024 11:12 AM [employer] Larry Travis MD LAB POCT ORDERABLES - DEVICE Final Result [facility] Department [place] [address] * HLA Donor Specific Antibody Report (01/20/2024 7:31 AM [employer]) us Provider Scanning LAB BLOOD ORDERABLES Final Res ult * (ABNORMAL) eGFR (01/20/2024 12:08 AM [employer]) eGFR 6(L) >=60 mL/min/1. 73 m2 Comment: [...] reviewed 2020. Blood 01/20/2024 12:0 8 AM [employer] 01/20/2024 12:43 AM [employer] Larry Travis MD LAB BLOOD ORDERABLE S Final Result [facility] Department [place] [address] * (ABNORMAL) Basic metabolic panel (01/20/2024 12:08 AM [employer]) Sodium 140 135 - 145 mmol/L Potassium, pl 4.8 3.3 - 4.9 mmol/L [facility] Chloride 95(L) 97 - 110 mmol/L [facility] CO2 30 22 - 32 mmol/L [facility] Anion gap 15 2 - 15 mmol/L [facility] BUN 55(H) 6 - 25 mg/dL [facility] Creatinine 9.05(H) 0.80 - 1.30 mg/dL [facility] Glucose 129 70 - 199 mg/dL [facility] Comment: Interpretive Data Fasting glucose >/= 126 [...] 2022. Calcium 9.7 8.5 - 10.3 mg/dL [facility] Blood 01/20/2024 12:0 8 AM [employer] 01/20/2024 12:43 AM [employer] Larry Travis MD LAB BLOOD ORDERABLE S Final Result [facility] Department [place] [address] * XR Ankle Right 3 or More Views (01/19/2024 12:37 PM [employer]) Anatomical Region Laterality Modality Lower Extremities, Ankle Right Compute d Radiography 01/19/2024 3:28 PM [employer] Impressions 01/19/2024 4:08 PM [employer] 1. Right leg subcutaneous edema with chronic venous stasis and medial ankle ulcer but no radiographic evidence of osteomyelitis. Dictated by: Liliane Ceja MD, MPH The radiology attending physician has personally reviewed this study, and had reviewed and/or edited this written report and agrees with it. Electronically signed by: Roscoe Tavarez M.D. Narrative 01/19/2024 4:08 PM [employer] EXAMINATION: XR TIBIA FIBULA RIGHT2 VIEWS, XR [...] Fibula Right 2 Views (01/19/2024 12:37 PM [employer]) Anatomical Region Laterality Modality Lower Extremities, Lower Leg Right Com puted Radiography 01/19/2024 3:28 PM [employer] Impressions 01/19/2024 4:08 PM [employer] 1. Right leg subcutaneous edema with chronic venous stasis and medial ankle ulcer but no radiographic evidence of osteomyelitis. Dictated by: Liliane Ceja MD, MPH The radiology attending physician has personally reviewed this study, and had reviewed and/or edited this written report and agrees with it. Electronically signed by: Roscoe Tavarez M.D. Narrative 01/19/2024 4:08 PM [employer] EXAMINATION: XR TIBIA FIBULA RIGHT2 VIEWS, XR [...] signed by: Roscoe Tavarez M.D. Rosalie Velásquez TRANSPORTER RADIOLOGY IMG XR PROCEDURES Final Res ult * Urine culture Urine, clean voided (01/19/2024 8:50 AM [employer]) Report Final Report: Less than 100,000 colonies/mL (clinically insignificant growth based on current clinical standards) Organism (CLINICALLY INSIGNIFICANT GROWTH [facility] Urine, clean voided 01/19/2024 8:50 AM [employer] 01/19/2024 9:48 AM [employer] Narrative [facility] - 01/20/2024 4:21 PM [employer] Indications for Culture:->Other (specify) Other Indication:->pre-op Testing performed by [facility] ([phone]) Rosalie Velásquez NP LAB MICROBIOLOGY - GENERAL ORDERABLES Final Result [facility] One [facility] Department [place] [address] * Prepare RBC: 2 Units (01/19/2024 6:31 AM [employer]) Product code [id number] Unit Number [id number] [facility] Product Blood Type ONEG [facility] Dispense Status PRESUMED TRANSFUSED [facility] Product code [id number] [facility] Unit Number [id number] [facility] Product Blood Type ONEG [facility] Dispense Status PRESUMED TRANSFUSED [facility] Blood 01/19/2024 6:31 AM [employer] 01/19/2024 6:30 AM [employer] Narrative [facility] - 01/23/2024 12:55 AM [employer] Specify Procedure:->Kidney Transplant Are special requirements needed? (All products are leukoreduced and CMV- safe)- >No Date required:-[id number] LRRBC # of [id number] Reasons:-Hold for procedure (specify procedure)} Larry Travis MD BLOOD BANK PRODUCT ORDERABLES Final Result Performing Organization Address City/[facility]/ZIP Co de Phone Number LINDA GALVIN One [facility] Department [place] [address] * HLA Crossmatch Report (01/18/2024 11:43 PM [employer]) Rosalie Velásquez NP LAB BLOOD ORDERABLES Final Result * HLA Crossmatch, ALLO (01/18/2024 11:43 PM [employer]) Blood 01/18/2024 11:4 3 PM [employer] 01/20/2024 9:03 AM [employer] Narrative [facility] - 01/20/2024 9:03 AM [employer] Rosalie Velásquez NP LAB BLOOD ORDERABLES Final Result Performing Organization Address [facility] Co de Phone Number [facility] * HLA Antibody Screen by PRA or SAB per Schedule (Class I and Class II) (01/18/2024 11:43 PM [employer]) Blood 01/18/2024 11:4 3 PM [employer] Narrative [facility] - [employer] Sample received in lab. Single Antigen Antibody Screen ordered. Rosalie Velásquez NP LAB BLOOD ORDERABLES Final Result Performing Organization Address City/[facility] Co de Phone Number [facility] * HLA Antibody Screen - SAB (Class I and Class II) (01/18/2024 11:43 PM [employer]) Class I Treatment EDTA [facility] Class I Dilution 1:1 [facility] Class I Tested Date 01/19/2024 [facility] Class I Result Negative [facility] Class I CPRA 0 [facility] Class II Treatment EDTA [facility] Class II Dilution 1:1 [facility] Class II Tested Date 01/19/2024 [facility] Class II Result Negative [facility] Class II CPRA 0 [facility] Class II Low Risk DR53; DQ2 [facility] 01/18/2024 11:4 3 PM [employer] 01/20/2024 7:24 AM [employer] Narrative [facility] - 01/20/2024 7:24 AM [employer] Single-antigen HLA antibody screen is performed on serum samples using a method developed and validated by the [facility] HLA laboratory based on an FDA-approved IVD kit (Get Increen Single-Antigen, [employer], [place], [place]). All patient serum samples are pretreated with EDTA before the screen to prevent complement interference. Additional serum treatments, such as adsorption and DTT treatment, may be performed as indicated. Interpretive comments: Low risk: MFI [id number]. Moderate risk: MFI 6916-1476. Increased risk: MFI >/= 5000. The presence [...] antigens to avoid. Testing performed at the [facility], [address] [place] [address], 5th floor, [place], [address]. CLIA # [id number]. Magalis Bean, Ph.D., Sole Trimmer, [facility] Laboratory José Miguel Yun M.D., Ph.D., Water Engineer, [facility] Nessa Marley, Ph.D., ROSA Water Engineer, [facility] Current methodology and interpretive comments last revised on 03/27/2022. Rosalie Velásquez TRANSPORTER RADIOLOGY LAB BLOOD ORDERABLES Final Result [facility] * X-ray chest 1 view (01/18/2024 11:41 PM [employer]) Anatomical Region Laterality Modality Body, Chest N/A Digital Radiogra phy 01/19/2024 4:05 AM [employer] Impressions 01/19/2024 4:05 AM [employer] Comparison is made to prior study of [...] Evan Boothe M.D. Narrative 01/19/2024 4:05 AM [employer] EXAMINATION: 1 view chest radiograph Procedure Note [...] by: Evan Boothe M.D. us Rosalie Velásquez TRANSPORTER RADIOLOGY IMG XR PROCEDURES Final Res ult * Collection Task for HLA Antibody Screen (01/18/2024 10:50 PM [employer]) HLA Antibody Screen by PRA Received Blood 01/18/2024 10:5 0 PM [employer] 01/19/2024 9:57 AM [employer] Rosalie Velásquez TRANSPORTER RADIOLOGY LAB BLOOD ORDERABLES Final Result Performing Organization Address City/[facility] Co de Phone Number [facility] Department [place] [address] * (ABNORMAL) eGFR (01/18/2024 10:50 PM [employer]) eGFR 9(L) >=60 mL/min/1. 73 m2 Comment: [...] reviewed 2020. Blood 01/18/2024 10:5 0 PM [employer] 01/18/2024 11:14 PM [employer] us Rosalie Velásquez TRANSPORTER RADIOLOGY LAB BLOOD ORDERABLES Final Result Performing Organization Address City/[facility]/ZIP Co de Phone Number [facility] Department [place] [address] * Differential, auto (01/18/2024 10:50 PM [employer]) Neutrophil abs 5.4 1.5 - 6.5 K/cumm Imm gran abs 0.0 0.0 - 0.1 K/cumm [facility] Lymphocyte abs 1.2 0.8 - 3.3 K/cumm [facility] Monocyte abs 0.6 0.2 - 0.8 K/cumm [facility] Eosinophil abs 0.2 0.0 - 0.5 K/cumm [facility] Basophil abs 0.0 0.0 - 0.1 K/cumm [facility] Neutrophil pct 73.1 % [facility] Comment: Interpretive Data Percent cell count reference ranges are not reported, since discordance with absolute values may lead to misinterpretation of CBC data. Current Interpretive Data was last revised on 2017. Imm gran pct 0.4 % [facility] Comment: Interpretive Data Percent cell count reference ranges are not reported, since discordance with absolute values may lead to misinterpretation of CBC data. Current Interpretive Data was last revised on 2017. Lymphocyte pct 15.7 % [facility] Comment: Interpretive Data Percent cell count reference ranges are not reported, since discordance with absolute values may lead to misinterpretation of CBC data. Current Interpretive Data was last revised on 2017. Monocyte pct 7.4 % [facility] Comment: Interpretive Data Percent cell count reference ranges are not reported, since discordance with absolute values may lead to misinterpretation of CBC data. Current Interpretive Data was last revised on 2017. Eosinophil pct 3.0 % [facility] Comment: Interpretive Data Percent cell count reference ranges are not reported, since discordance with absolute values may lead to misinterpretation of CBC data. Current Interpretive Data was last revised on 2017. Basophil pct 0.4 % [facility] Comment: Interpretive Data Percent cell count reference ranges are not reported, since discordance with absolute values may lead to misinterpretation of CBC data. Current Interpretive Data was last revised on 2017. Blood 01/18/2024 10:5 0 PM [employer] 01/18/2024 11:15 PM [employer] us Rosalie Velásquez NP LAB BLOOD ORDERABLES Final Result [facility] One [facility] Department [place] [address] * (ABNORMAL) Iron profile w/ IBC (01/18/2024 10:50 PM [employer]) [facility] Iron 52 50 - 150 mcg/dL TIBC 162(L) 250 - 400 mcg/dL [facility] Transferrin saturation 32 20 - 50 % [facility] Blood 01/18/2024 10:5 0 PM [employer] 01/18/2024 11:14 PM [employer] Rosalie Velásquez NP LAB BLOOD ORDERABLES Final Result Performing Organization Address [facility] Co de Phone Number [facility] [place] [address] * HIV 1/2 Antibody plus p24 Antigen Blood (01/18/2024 10:50 PM [employer]) [facility] HIV 1/2 ab + p24 ag Nonreactive Nonreactive Comment:Nonreactive for HIV- 1 antigen and HIV-1/HIV-2 antibodies. No laboratory evidence of HIV infection. If acute HIV infection is suspected, consider testing for HIV-1 RNA. Current interpretive data was last revised on 21. Blood 01/18/2024 10:5 0 PM [employer] 01/18/2024 11:15 PM [employer] Rosalie Velásquez NP LAB MICROBIOLOGY - GENERAL ORDERABLES Final Result Performing Organization Address City/[facility] Co de Phone Number [facility] [place] [address] * (ABNORMAL) CBC with auto differential (01/18/2024 10:50 PM [employer]) [facility] WBC 7.4 3.8 - 9.9 K/cumm Hgb 10.1(L) 13.0 - 17.5 g/dL [facility] Hct 30.4(L) 38.9 - 50.3 % [facility] Plt 155 150 - 400 K/cumm [facility] MPV 9.5 9.1 - 12.3 fL [facility] RBC 3.05(L) 4.30 - 5.80 M/cumm [facility] MCV 99.7(H) 81.3 - 96.4 fL [facility] MCH 33.1 27.1 - 33.3 pg [facility] MCHC 33.2 32.3 - 35.7 g/dL [facility] RDW CV 14.4 11.1 - 14.9 % [facility] RDW SD 51.3(H) 35.7 - 48.1 fL [facility] NRBC abs 0.00 0.00 - 0.01 K/cumm [facility] Blood 01/18/2024 10:5 0 PM [employer] 01/18/2024 11:15 PM [employer] Rosalie Velásquez NP LAB BLOOD ORDERABLES Final Result Performing Organization Address [facility]/ZIP Co de Phone Number [facility] Department [place] [address] * Hepatitis C antibody Blood (01/18/2024 10:50 PM [employer]) Pathologist [facility] Hep C Ab Nonreactive Nonreactive Comment:Antibodies to HCV no t detected. Does NOT exclude the possibility of recent exposure to HCV. Current interpretive data was last revised on 21 Blood 01/18/2024 10:5 0 PM [employer] 01/18/2024 11:14 PM [employer] Rosalie Velásquez NP LAB MICROBIOLOGY - GENERAL ORDERABLES Final Result [facility] [place] [address] * Hepatitis B core antibody, total Blood (01/18/2024 10:50 PM [employer]) Pathologist [facility] Hep B core IgG/IgM Nonreactive Nonreactive Blood 01/18/2024 10:5 0 PM [employer] 01/18/2024 11:14 PM [employer] Rosalie Velásquez NP LAB MICROBIOLOGY - GENERAL ORDERABLES Final Result Performing Organization Address City/[facility]/ZIP Co de Phone Number [facility] [place] [address] * Hepatitis C (HCV) RNA PCR, quantitative Blood (01/18/2024 10:50 PM [employer]) Pathologist [facility] HCV RNA result Not Detected [facility] Comment: The quantifiable range of this assay is 15 IU/mL to 100,000,000 IU/mL (1.18 log IU/mL to 8.00 log IU/mL). Testing was performed by the [facility] [employer] HCV Test ([employer] Testing performed at [facility] Current Interpretive Data was last revised on 2020 Blood 01/18/2024 10:5 0 PM [employer] 01/18/2024 11:50 PM [employer] Rosalie Velásquez NP LAB MICROBIOLOGY - GENERAL ORDERABLES Final Result Performing Organization Address [facility] [place] [address] [facility] * Hepatitis B surface antibody (immune status) Blood (01/18/2024 10:50 PM IMP[employer]ATOR [employer]) [facility] HBsAb (immune status) Reactive Comment:This result is consi stent with immunity to Hepatitis B Virus when used in the setting of routine screening. Current interpretive data was last revised on 21 HBsAb (immune status) index 1,828.0 mIUnits/m L [facility] Blood 01/18/2024 10:5 0 PM [employer] 01/18/2024 11:14 PM [employer] Rosalie Velásquez NP LAB MICROBIOLOGY - GENERAL ORDERABLES Final Result Performing Organization Address City/[facility]/ZIP Co de Phone Number [facility] [place] [address] * Hepatitis B Surface Antigen Blood (01/18/2024 10:50 PM IMP[employer]) Pathologist [facility] HepBsAg Nonreactive Nonreactive Blood 01/18/2024 10:5 0 PM [employer] 01/18/2024 11:14 PM [employer] Rosalie Velásquez NP LAB MICROBIOLOGY - GENERAL ORDERABLES Final Result Performing Organization Address [facility] de Phone Number [facility] Department [place] [address] * aPTT (01/18/2024 10:50 PM IMP[employer]ATOR [employer]) [facility] aPTT 31 28 - 38 sec Comment: Interpretive Data Heparin therapeutic range: 66.0 - 100.0 seconds. Range based on correlation with therapeutic heparin activity range of 0.3 - 0.7 Units/mL. Current interpretive data was last revised on 2022. Blood 01/18/2024 10:5 0 PM [employer] 01/18/2024 11:17 PM IMPREGNATOR ELECTROLY[employer]ACITORS Rosalie Velásquez NP LAB BLOOD ORDERABLES Final Result Performing Organization Address [facility] de Phone Number [facility] Department [place] [address] * Protime-INR (01/18/2024 10:50 PM IMPREGNATOR ELECTROLY[employer]IC CAPACITORS) Pathologist [facility] PT 11.2 9.7 - 13.0 sec INR 1.04 0.90 - 1.20 [facility] Comment: Interpretive data Oral anticoagulant therapeutic ranges: Venous thromboembolism prophylaxis or treatment: 2.0-3.0 CARDIOLOGY Standard range: 2.0-3.0 High-intensity range: 2.5-3.5 Refer to indication-specific guidelines for appropriate target ranges for prosthetic heart valve replacement. Current interpretive data was last revised on 2019. Blood 01/18/2024 10:5 0 PM IMPREGNATOR [employer]ACIT[employer] 01/18/2024 11:17 PM IMPREGNATOR [employer]OL[employer] CAPACITORS Rosalie Velásquez TRANSPORTER RADIOLOGY LAB BLOOD ORDERABLES Final Result Performing Organization Address [facility] [place] [address] * Type and screen (01/18/2024 10:50 PM IMPREGNATOR [employer]ACIT[employer]) Pathologist [facility] ABO Rh O Negative [place], indirect Negative [facility] Blood 01/18/2024 10:5 0 PM [employer]REG[employer]ATOR [employer]IT[employer] 01/18/2024 11:13 PM IMPREGNATOR [employer] CAPACITORS Narrative [facility] - 01/19/2024 12:08 AM IMPREGNATOR E[employer]IC CAPACITORS Has the patient had Daratumumab or Isatuximab in the past 6 months?->Unknown Rosalie Velásquez TRANSPORTER RADIOLOGY LAB BLOOD BANK TEST ORDERAB LES Final Result Performing Organization Address [facility] Co de Phone Number [facility] [place] [address] * Uric acid (01/18/2024 10:50 PM IMPREGNATOR ELECTROLYTIC CAPACITORS) [facility] Uric acid 4.2 3.0 - 8.0 mg/dL Blood 01/18/2024 10:5 0 PM IMPREGNATOR [employer]ACITORS 01/18/2024 11:14 PM [employer]ATOR [employer]IT[employer] Rosalie Velásquez TRANSPORTER RADIOLOGY LAB BLOOD ORDERABLES Final Result Performing Organization Address [facility] [place] [address] * (ABNORMAL) Phosphorus (01/18/2024 10:50 PM IMPREGNATOR E[employer]ROL[employer]ACITORS) Pathologist [facility] Phosphorus, pl 6.5(H) 2.3 - 4.5 mg/dL Blood 01/18/2024 10:5 0 PM IMPREGNATOR [employer]ACITORS 01/18/2024 11:14 PM IMPREGNATOR [employer]ACITORS Rosalie Velásquez TRANSPORTER RADIOLOGY LAB BLOOD ORDERABLES Final Result Performing Organization Address [facility] Co de Phone Number [facility] [place] [address] * (ABNORMAL) Hemoglobin A1c (01/18/2024 10:50 PM IMPREGNATOR [employer]ROL[employer] CAPACITORS) Hgb A1C 6.3(H) 4.0 - 5.6 % Estimated Average Glucose 134 mg/dL [facility] Comment: The ADA recommends reporting an estimated Average Glucose (eAG) with all Hemoglobin A1c results using the equation derived from a study of 507 normal and diabetic adults. Minority populations were underrepresented and children were not included. (Diabetes Care 2020; 43(S1): S66-S76). The eAG is not equivalent to a fasting glucose. Blood 01/18/2024 10:5 0 PM IMP[employer]ATOR [employer]IT[employer] 01/18/2024 11:15 PM IMPREGNATOR [employer]OL[employer]ACITORS Rosalie Velásquez TRANSPORTER RADIOLOGY LAB BLOOD ORDERABLES Final Result Performing Organization Address [facility] Co de Phone Number [facility] [place] [address] * (ABNORMAL) Ferritin (01/18/2024 10:50 PM IMPREGNATOR [employer]ROL[employer]ACITORS) Ferritin 1,237(H) 30 - 400 ng/mL Blood 01/18/2024 10:5 0 PM [employer]ATOR [employer]ACIT[employer] 01/18/2024 11:14 PM IMP[employer]ATOR [employer]ACITORS Rosalieacrleen Velásquez TRANSPORTER RADIOLOGY LAB BLOOD ORDERABLES Final Result Performing Organization Address [facility] Co de Phone Number [facility] [place] [address] * (ABNORMAL) Lipid panel (01/18/2024 10:50 PM IMPREGNATOR E[employer]ROL[employer] CAPACITORS) Cholesterol 203(H) 30 - 199 mg/dL Comment: [...] revised on 2017. Triglycerides 208(H) <=149 mg/dL [facility] Comment: Interpretive Data Ages < or = [...] revised on 2017. HDL 38(L) >=40 mg/dL [facility] Comment: Interpretive Data Ages < or = [...] 2017. LDL, calculated 128 <=129 mg/dL [facility] Comment: Interpretive Data Ages < [...] revised on 2023. Non-HDL Cholesterol 165 mg/dL [facility] Comment: Interpretive Data Ages < or = [...] last revised on 2017. Chol/HDL ratio 5 [facility] Blood 01/18/2024 10:5 0 PM IMPREGNATOR [employer]ACITORS 01/18/2024 11:14 PM IMPREGNATOR [employer]ACITORS us Rosalie Velásquez NP LAB BLOOD ORDERABLES Final Result [facility] Department [place] [address] * (ABNORMAL) Comprehensive metabolic panel (01/18/2024 10:50 PM IMPREGNATOR ELECTROLYTIC CAPACITORS) Sodium 142 135 - 145 mmol/L Potassium, pl 4.4 3.3 - 4.9 mmol/L [facility] Chloride 96(L) 97 - 110 mmol/L [facility] CO2 31 22 - 32 mmol/L [facility] Anion gap 15 2 - 15 mmol/L [facility] BUN 40(H) 6 - 25 mg/dL [facility] Creatinine 6.70(H) 0.80 - 1.30 mg/dL [facility] Glucose 162 70 - 199 mg/dL [facility] Comment: Interpretive Data Fasting glucose >/= 126 [...] 2022. Calcium 10.4(H) 8.5 - 10.3 mg/dL [facility] Bilirubin, total 0.3 0.1 - 1.2 mg/dL [facility] Protein, pl 7.1 6.5 - 8.5 g/dL [facility] Albumin 4.0 3.5 - 5.0 g/dL [facility] Alk phos 187(H) 40 - 130 Units/L [facility] ALT 18 7 - 55 Units/L [facility] AST 23 10 - 50 Units/L [facility] Blood 01/18/2024 10:5 0 PM IMPREGNATOR [employer]ACITORS 01/18/2024 11:14 PM IMPREGNATOR [employer]ROL[employer]ACITORS us Rosalie Velásquez NP LAB BLOOD ORDERABLES Final Result Performing Organization Address City/State/[facility] Co de Phone Number [facility] Department [place] [address] * CT Chest WO Contrast F/U Lung Screen Protocol (01/13/2024 3:25 PM IMPREGNATOR ELECTROL[employer]ACIT[employer]) Anatomical Region Laterality Modality Chest N/A Computed Tomogra phy 01/13/2024 5:28 PM IMPREGNATOR E[employer] CAPACITORS Impressions 01/13/2024 5:28 PM IMPREGNATOR ELECTROLYTIC CAPACITORS 1. LungRADS Category 2 (benign) S. Recommend Low dose Screening CT of chest in 12 months. 2. 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 Electronically signed by: Evan Boothe M.D. Narrative 01/13/2024 5:28 PM IMPREGNATOR E[employer]ROLYTIC CAPACITORS Examination: Low dose chest CT without intravenous [...] LAB BLOOD ORDERABL ES Final Result [facility] One [facility] Department [place] [address] from Last 3 Months or Most Recently Relevant to Health Maintenance Insurance [facility] CHOICE PLUS MEDICARE [employer] SENIOR SUPPLEMENT MEDICARE COMMERCIAL GENERIC MEDICARE [place] MEDICARE SUPPLEMENT MEDICARE [place] MEDICARE SUPPLEMENT MEDICARE Advance Directives For more information, please contact: [phone] * Full Code (Latest Code Status on [...] 10:20 PM 01/20/2024 7:47 PM Care Teams Preschool Director Relationship Specialty Start Date End Date Marino Quick [address] [place] [address] PCP - General Family Medicine 09/29/23 Aidan Yadav DO [address] [facility] [address] [place] [address] [employer]key Engine Operator Cardiology 06/05/20 [place] [address] [place] [address] Urologist Urology 11/05/21 [place] [address] [place] [address] Consulting Physician Interventional Cardiology 01/09/22 Cam Harris MD [address] [place] [address] [address] [place] [id number] Consulting Physician Nephrology 01/07/23 Ayo Abbott MD [address] [facility] [address] [place] [address] Porter Sample Case Dermatology 10/09/23 Kirk Chaparro MD [address] [facility] [address] [place] [address] Surgeon Vascular Surgery 10/13/23 Shama Antunez RN [address] [facility] [address] [place] [address] Cat Breeder 01/20/24
--- OUTSIDE RECORDS SUMMARY | 2024-04-19 14:36 | XMS_ITS ---
Author Organization [facility] al Address [address] [place] [address] Care Team Providers Care Business Objects Name Role Phone Aidan Yadav DO Unavailable [phone] Jovanna BUTLER MD, Susi Unavailable Frank Martin MD Unavailable [phone] Cam Harris MD Unavailable [phone] Marino Quick DO Primary Care Provider Ayo Abbott MD Unavailable [phone] Kirk Chaparro MD Unavailable [phone] Shama Antunez RN Unavailable [phone] Dialysis Access Sites Type Status Location Placement Date Removal Da te AV fistula Active Left Upper Arm - Anterior 12/11/2017 Hemodialysis Cath Triple Inactive Left Thigh - Anterior 11/26/2020 11/28/2020 Procedures Procedure Name Priority Date/Time Associated Diagnosis Comments EGFR Routine 04/19/2024 10:42 AM ASSISTANT CASE MANAGER Kidney replaced by transplant DIFFERENTIAL AUTO Routine 04/19/2024 10:42 AM ASSISTANT CASE MANAGER Kidney replaced by transplant CBC WITH AUTO DIFFERENTIAL Routine 04/19/2024 10:42 AM ASSISTANT CASE MANAGER Kidney replaced by transplant RENAL FUNCTION PANEL Routine 04/19/2024 10:42 AM ASSISTANT CASE MANAGER Kidney replaced by transplant TACROLIMUS LEVEL, TROUGH Routine 04/19/2024 10:42 AM ASSISTANT CASE MANAGER Kidney replaced by transplant Encounter for long-term (current) use of medications DIFFERENTIAL AUTO Routine 04/06/2024 11:42 AM ASSISTANT CASE MANAGER Encounter for aftercare following kidney transplant CBC WITH AUTO DIFFERENTIAL Routine 04/06/2024 11:42 AM ASSISTANT CASE MANAGER Encounter for aftercare following kidney transplant RESPIRATORY PATHOGEN PANEL Routine 04/06/2024 11:41 AM ASSISTANT CASE MANAGER Encounter for aftercare following kidney transplant XR CHEST PA LATERAL 2 VIEWS Schedule Routine, Read Routine (OP Routine) 04/06/2024 11:28 AM ASSISTANT CASE MANAGER Shortness of breath POCT URINALYSIS DIPSTICK Routine 04/06/2024 10:35 AM ASSISTANT CASE MANAGER Encounter for aftercare following kidney transplant BK VIRUS, DNA, QUANTITATIVE Routine 04/05/2024 9:00 AM ASSISTANT CASE MANAGER Kidney replaced by transplant TACROLIMUS LEVEL, TROUGH Routine 04/05/2024 8:59 AM ASSISTANT CASE MANAGER Kidney replaced by transplant Encounter for long-term (current) use of medications RENAL FUNCTION PANEL Routine 04/05/2024 8:58 AM ASSISTANT CASE MANAGER Kidney replaced by transplant RENAL FUNCTION PANEL Routine 04/05/2024 8:57 AM ASSISTANT CASE MANAGER Kidney replaced by transplant BK VIRUS, DNA, QUANTITATIVE Routine 03/29/2024 11:28 AM ASSISTANT CASE MANAGER Kidney replaced by transplant TACROLIMUS LEVEL, TROUGH Routine 03/29/2024 11:27 AM ASSISTANT CASE MANAGER Kidney replaced by transplant Encounter for long-term (current) use of medications CBC WITH AUTO DIFFERENTIAL Routine 03/29/2024 11:26 AM ASSISTANT CASE MANAGER Kidney replaced by transplant RENAL FUNCTION PANEL Routine 03/29/2024 11:25 AM ASSISTANT CASE MANAGER Kidney replaced by transplant BK VIRUS, DNA, QUANTITATIVE Routine 03/23/2024 12:07 PM ASSISTANT CASE MANAGER Kidney replaced by transplant TACROLIMUS LEVEL, TROUGH Routine 03/23/2024 12:06 PM ASSISTANT CASE MANAGER Kidney replaced by transplant Encounter for long-term (current) use of medications CBC WITH AUTO DIFFERENTIAL Routine 03/23/2024 12:05 PM ASSISTANT CASE MANAGER Kidney replaced by transplant RENAL FUNCTION PANEL Routine 03/23/2024 12:04 PM ASSISTANT CASE MANAGER Kidney replaced by transplant ABSCESS CATHETER INJECTION Schedule Routine, Read Routine (OP Routine) 03/22/2024 10:05 AM ASSISTANT CASE MANAGER Perinephric fluid collection LIPID PANEL Routine 03/15/2024 9:49 AM ASSISTANT CASE MANAGER Kidney replaced by transplant Hyperlipidemia, unspecified hyperlipidemia type HEPATIC FUNCTION PANEL Routine 03/15/2024 9:48 AM ASSISTANT CASE MANAGER Kidney replaced by transplant BK VIRUS, DNA, QUANTITATIVE Routine 03/15/2024 9:48 AM ASSISTANT CASE MANAGER Kidney replaced by transplant TACROLIMUS LEVEL, TROUGH Routine 03/15/2024 9:47 AM ASSISTANT CASE MANAGER Kidney replaced by transplant Encounter for long-term (current) use of medications CBC WITH AUTO DIFFERENTIAL Routine 03/15/2024 9:47 AM ASSISTANT CASE MANAGER Kidney replaced by transplant RENAL FUNCTION PANEL Routine 03/15/2024 9:46 AM ASSISTANT CASE MANAGER Kidney replaced by transplant POCT URINALYSIS DIPSTICK Routine 03/10/2024 8:47 AM ASSISTANT CASE MANAGER Encounter for removal of ureteral stent EGFR Routine 03/10/2024 8:21 AM ASSISTANT CASE MANAGER Kidney replaced by transplant DIFFERENTIAL AUTO Routine 03/10/2024 8:2 1 AM ASSISTANT CASE MANAGER Kidney replaced by transplant RENAL FUNCTION PANEL Routine 03/10/2024 8:21 AM ASSISTANT CASE MANAGER Kidney replaced by transplant CBC WITH AUTO DIFFERENTIAL Routine 03/10/2024 8:21 AM ASSISTANT CASE MANAGER Kidney replaced by transplant TACROLIMUS LEVEL, RANDOM Routine 03/10/2024 8:21 AM ASSISTANT CASE MANAGER Kidney replaced by transplant MAGNESIUM Routine 03/10/2024 8:21 AM ASSISTANT CASE MANAGER Kidney replaced by transplant BK VIRUS PCR QUANTITATIVE Routine 03/10/2024 8:21 AM ASSISTANT CASE MANAGER Kidney replaced by transplant PET STRESS TEST Schedule Routine, Read Routine (OP Routine) 03/08/2024 3:12 PM ASSISTANT CASE MANAGER Coronary artery disease involving eagle coronary artery of eagle heart without angina pectoris PET/CT MYOCARDIAL PERFUSION IMAGING (MULTIPLE) Schedule Routine, Read Routine (OP Routine) 03/08/2024 3:12 PM ASSISTANT CASE MANAGER Coronary artery disease involving eagle coronary artery of eagle heart without angina pectoris ABSCESS CATHETER INJECTION Schedule Routine, Read Routine (OP Routine) 03/08/2024 11:02 AM ASSISTANT CASE MANAGER Perinephric fluid collection EGFR STAT 03/03/2024 9:40 AM ASSISTANT CASE MANAGER DIFFERENTIAL AUTO STAT 03/03/2024 9:4 0 AM ASSISTANT CASE MANAGER TACROLIMUS LEVEL, TROUGH STAT 03/03/2024 9:40 AM ASSISTANT CASE MANAGER MAGNESIUM STAT 03/03/2024 9:40 AM ASSISTANT CASE MANAGER CBC WITH AUTO DIFFERENTIAL STAT 03/03/2024 9:40 AM ASSISTANT CASE MANAGER RENAL FUNCTION PANEL STAT 03/03/2024 9:40 AM ASSISTANT CASE MANAGER EGFR Routine 03/01/2024 8:00 AM ASSISTANT CASE MANAGER RENAL FUNCTION PANEL Routine 03/01/2024 8:00 AM ASSISTANT CASE MANAGER DIFFERENTIAL AUTO Routine 03/01/2024 8:0 0 AM ASSISTANT CASE MANAGER TACROLIMUS LEVEL, TROUGH Routine 03/01/2024 8:00 AM ASSISTANT CASE MANAGER MAGNESIUM Routine 03/01/2024 8:00 AM ASSISTANT CASE MANAGER CBC WITH AUTO DIFFERENTIAL Routine 03/01/2024 8:00 AM ASSISTANT CASE MANAGER HEPATIC FUNCTION PANEL Routine 02/26/2024 8:59 AM ASSISTANT CASE MANAGER Kidney replaced by transplant LIPID PANEL Routine 02/26/2024 8:59 AM ASSISTANT CASE MANAGER Kidney replaced by transplant Hyperlipidemia, unspecified hyperlipidemia type TACROLIMUS LEVEL, TROUGH Routine 02/26/2024 8:59 AM ASSISTANT CASE MANAGER Kidney replaced by transplant Encounter for long-term (current) use of medications RENAL FUNCTION PANEL Routine 02/26/2024 8:59 AM ASSISTANT CASE MANAGER Kidney replaced by transplant CBC WITH AUTO DIFFERENTIAL Routine 02/26/2024 8:59 AM ASSISTANT CASE MANAGER Kidney replaced by transplant BK VIRUS, DNA, QUANTITATIVE Routine 02/26/2024 8:59 AM ASSISTANT CASE MANAGER Kidney replaced by transplant POCT GLUCOSE DEVICE Routine 02/23/2024 11:43 AM ASSISTANT CASE MANAGER POCT GLUCOSE DEVICE Routine 02/23/2024 8 :21 AM ASSISTANT CASE MANAGER POTASSIUM, WHOLE BLOOD STAT 02/23/2024 6:38 AM ASSISTANT CASE MANAGER ECG 12-LEAD STAT 02/23/2024 6:30 AM ASSISTANT CASE MANAGER CT ABDOMEN PELVIS WO CONTRAST IP Routine 02/23/2024 5:21 AM ASSISTANT CASE MANAGER EGFR Routine 02/23/2024 4:37 AM ASSISTANT CASE MANAGER DIFFERENTIAL AUTO Routine 02/23/2024 4:3 7 AM ASSISTANT CASE MANAGER RENAL FUNCTION PANEL Routine 02/23/2024 4:37 AM ASSISTANT CASE MANAGER CBC WITH AUTO DIFFERENTIAL Routine 02/23/2024 4:37 AM ASSISTANT CASE MANAGER MAGNESIUM Routine 02/23/2024 4:37 AM ASSISTANT CASE MANAGER TACROLIMUS LEVEL, TROUGH Routine 02/23/2024 4:37 AM ASSISTANT CASE MANAGER POCT GLUCOSE DEVICE Routine 02/22/2024 9 :35 PM ASSISTANT CASE MANAGER POCT GLUCOSE DEVICE Routine 02/22/2024 5 :37 PM ASSISTANT CASE MANAGER CELL DIFFERENTIAL, BODY FLUID Routine 02/22/2024 2:26 PM ASSISTANT CASE MANAGER CELL DIFFERENTIAL, BODY FLUID Routine 02/22/2024 2:26 PM ASSISTANT CASE MANAGER CELL COUNT W/REFLEX DIFFERENTIAL, BODY FLUID Routine 02/22/2024 2:26 PM ASSISTANT CASE MANAGER CREATININE, BODY FLUID Routine 02/22/2024 2:26 PM ASSISTANT CASE MANAGER CELL COUNT W/REFLEX DIFFERENTIAL, BODY FLUID Routine 02/22/2024 2:26 PM ASSISTANT CASE MANAGER AEROBIC AND ANAEROBIC CULTURE AND GRAM STAIN Routine 02/22/2024 2:26 PM ASSISTANT CASE MANAGER AEROBIC AND ANAEROBIC CULTURE AND GRAM STAIN Routine 02/22/2024 2:26 PM ASSISTANT CASE MANAGER CREATININE, BODY FLUID Routine 02/22/2024 2:19 PM ASSISTANT CASE MANAGER POCT GLUCOSE DEVICE Routine 02/22/2024 1 :48 PM ASSISTANT CASE MANAGER FLUID DRAIN SOFT TISSUE IP Routine 02/22/2024 1:14 PM ASSISTANT CASE MANAGER CELL DIFFERENTIAL, BODY FLUID Routine 02/22/2024 12:50 PM ASSISTANT CASE MANAGER CELL COUNT W/REFLEX DIFFERENTIAL, BODY FLUID Routine 02/22/2024 12:50 PM ASSISTANT CASE MANAGER CREATININE, BODY FLUID Routine 02/22/2024 12:50 PM ASSISTANT CASE MANAGER POCT GLUCOSE DEVICE Routine 02/22/2024 6 :27 AM ASSISTANT CASE MANAGER POTASSIUM, WHOLE BLOOD STAT 02/22/2024 6:27 AM ASSISTANT CASE MANAGER EGFR Routine 02/22/2024 4:38 AM ASSISTANT CASE MANAGER DIFFERENTIAL AUTO Routine 02/22/2024 4:3 8 AM ASSISTANT CASE MANAGER RENAL FUNCTION PANEL Routine 02/22/2024 4:38 AM ASSISTANT CASE MANAGER CBC WITH AUTO DIFFERENTIAL Routine 02/22/2024 4:38 AM ASSISTANT CASE MANAGER MAGNESIUM Routine 02/22/2024 4:38 AM ASSISTANT CASE MANAGER TACROLIMUS LEVEL, TROUGH Routine 02/22/2024 4:38 AM ASSISTANT CASE MANAGER POCT GLUCOSE DEVICE Routine 02/21/2024 8 :49 PM ASSISTANT CASE MANAGER POCT GLUCOSE DEVICE Routine 02/21/2024 5 :26 PM ASSISTANT CASE MANAGER POCT GLUCOSE DEVICE Routine 02/21/2024 2 :08 PM ASSISTANT CASE MANAGER EGFR STAT 02/21/2024 2:06 PM ASSISTANT CASE MANAGER DIFFERENTIAL AUTO STAT 02/21/2024 2:0 6 PM ASSISTANT CASE MANAGER RENAL FUNCTION PANEL STAT 02/21/2024 2:06 PM ASSISTANT CASE MANAGER PROTIME-INR STAT 02/21/2024 2:06 PM ASSISTANT CASE MANAGER MAGNESIUM STAT 02/21/2024 2:06 PM ASSISTANT CASE MANAGER CBC WITH AUTO DIFFERENTIAL STAT 02/21/2024 2:06 PM ASSISTANT CASE MANAGER ECG 12-LEAD Routine 02/17/2024 4:29 PM ASSISTANT CASE MANAGER Atrial fibrillation, unspecified type (HCC) CT ABDOMEN PELVIS WO CONTRAST Urgent 02/17/2024 11:48 AM ASSISTANT CASE MANAGER Swelling abdomen EGFR Routine 02/17/2024 10:25 AM ASSISTANT CASE MANAGER Kidney replaced by transplant DIFFERENTIAL AUTO Routine 02/17/2024 10:25 AM ASSISTANT CASE MANAGER Kidney replaced by transplant RENAL FUNCTION PANEL Routine 02/17/2024 10:25 AM ASSISTANT CASE MANAGER Kidney replaced by transplant TACROLIMUS LEVEL, RANDOM Routine 02/17/2024 10:25 AM ASSISTANT CASE MANAGER Kidney replaced by transplant MAGNESIUM Routine 02/17/2024 10:25 AM ASSISTANT CASE MANAGER Kidney replaced by transplant CBC WITH AUTO DIFFERENTIAL Routine 02/17/2024 10:25 AM ASSISTANT CASE MANAGER Kidney replaced by transplant HEPATITIS B DNA, QUANTITATIVE, PCR Routine 02/17/2024 10:25 AM ASSISTANT CASE MANAGER Kidney replaced by transplant HEPATITIS C RNA, QUANTITATIVE, PCR Routine 02/17/2024 10:25 AM ASSISTANT CASE MANAGER Kidney replaced by transplant HIV-1 RNA, QUANTITATIVE, PCR Routine 02/17/2024 10:25 AM ASSISTANT CASE MANAGER Kidney replaced by transplant EGFR STAT 02/11/2024 9:00 AM ASSISTANT CASE MANAGER DIFFERENTIAL AUTO STAT 02/11/2024 9:0 0 AM ASSISTANT CASE MANAGER TACROLIMUS LEVEL, TROUGH STAT 02/11/2024 9:00 AM ASSISTANT CASE MANAGER MAGNESIUM STAT 02/11/2024 9:00 AM ASSISTANT CASE MANAGER CBC WITH AUTO DIFFERENTIAL STAT 02/11/2024 9:00 AM ASSISTANT CASE MANAGER RENAL FUNCTION PANEL STAT 02/11/2024 9:00 AM ASSISTANT CASE MANAGER CT ABDOMEN PELVIS WO CONTRAST Schedule Routine, Read Routine (OP Routine) 02/09/2024 3:42 PM ASSISTANT CASE MANAGER Kidney transplanted CREATININE, BODY FLUID Routine 02/09/2024 3:29 PM ASSISTANT CASE MANAGER Kidney transplanted EGFR Routine 02/09/2024 9:00 AM ASSISTANT CASE MANAGER DIFFERENTIAL AUTO Routine 02/09/2024 9:0 0 AM ASSISTANT CASE MANAGER TACROLIMUS LEVEL, TROUGH Routine 02/09/2024 9:00 AM ASSISTANT CASE MANAGER MAGNESIUM Routine 02/09/2024 9:00 AM ASSISTANT CASE MANAGER CBC WITH AUTO DIFFERENTIAL Routine 02/09/2024 9:00 AM ASSISTANT CASE MANAGER RENAL FUNCTION PANEL Routine 02/09/2024 9:00 AM ASSISTANT CASE MANAGER EGFR STAT 02/04/2024 8:52 AM ASSISTANT CASE MANAGER DIFFERENTIAL AUTO STAT 02/04/2024 8:5 2 AM ASSISTANT CASE MANAGER TACROLIMUS LEVEL, TROUGH STAT 02/04/2024 8:52 AM ASSISTANT CASE MANAGER CREATININE, BODY FLUID STAT 02/04/2024 8:52 AM ASSISTANT CASE MANAGER MAGNESIUM STAT 02/04/2024 8:52 AM ASSISTANT CASE MANAGER CBC WITH AUTO DIFFERENTIAL STAT 02/04/2024 8:52 AM ASSISTANT CASE MANAGER RENAL FUNCTION PANEL STAT 02/04/2024 8:52 AM ASSISTANT CASE MANAGER EGFR Routine 02/02/2024 9:00 AM ASSISTANT CASE MANAGER DIFFERENTIAL AUTO Routine 02/02/2024 9:0 0 AM ASSISTANT CASE MANAGER TACROLIMUS LEVEL, TROUGH Routine 02/02/2024 9:00 AM ASSISTANT CASE MANAGER MAGNESIUM Routine 02/02/2024 9:00 AM ASSISTANT CASE MANAGER CBC WITH AUTO DIFFERENTIAL Routine 02/02/2024 9:00 AM ASSISTANT CASE MANAGER RENAL FUNCTION PANEL Routine 02/02/2024 9:00 AM ASSISTANT CASE MANAGER POCT GLUCOSE DEVICE Routine 01/28/2024 5 :58 PM ASSISTANT CASE MANAGER POCT GLUCOSE DEVICE Routine 01/28/2024 12:47 PM ASSISTANT CASE MANAGER POCT GLUCOSE DEVICE Routine 01/28/2024 8 :44 AM ASSISTANT CASE MANAGER EGFR Routine 01/28/2024 4:15 AM ASSISTANT CASE MANAGER DIFFERENTIAL AUTO Routine 01/28/2024 4:1 5 AM ASSISTANT CASE MANAGER TACROLIMUS LEVEL, TROUGH Routine 01/28/2024 4:15 AM ASSISTANT CASE MANAGER MAGNESIUM Routine 01/28/2024 4:15 AM ASSISTANT CASE MANAGER RENAL FUNCTION PANEL Routine 01/28/2024 4:15 AM ASSISTANT CASE MANAGER CBC WITH AUTO DIFFERENTIAL Routine 01/28/2024 4:15 AM ASSISTANT CASE MANAGER POCT GLUCOSE DEVICE Routine 01/27/2024 9 :07 PM ASSISTANT CASE MANAGER POCT GLUCOSE DEVICE Routine 01/27/2024 5 :55 PM ASSISTANT CASE MANAGER ECG 12-LEAD Routine 01/27/2024 3:35 PM ASSISTANT CASE MANAGER POCT GLUCOSE DEVICE Routine 01/27/2024 12:24 PM ASSISTANT CASE MANAGER EGFR Routine 01/27/2024 4:17 AM ASSISTANT CASE MANAGER DIFFERENTIAL AUTO Routine 01/27/2024 4:1 7 AM ASSISTANT CASE MANAGER TACROLIMUS LEVEL, TROUGH Routine 01/27/2024 4:17 AM ASSISTANT CASE MANAGER MAGNESIUM Routine 01/27/2024 4:17 AM ASSISTANT CASE MANAGER RENAL FUNCTION PANEL Routine 01/27/2024 4:17 AM ASSISTANT CASE MANAGER CBC WITH AUTO DIFFERENTIAL Routine 01/27/2024 4:17 AM ASSISTANT CASE MANAGER POCT GLUCOSE DEVICE Routine 01/26/2024 7 :59 PM ASSISTANT CASE MANAGER POCT GLUCOSE DEVICE Routine 01/26/2024 5 :15 PM ASSISTANT CASE MANAGER POCT GLUCOSE DEVICE Routine 01/26/2024 1 :48 PM ASSISTANT CASE MANAGER HEMODIALYSIS Routine 01/26/2024 12:43 PM ASSISTANT CASE MANAGER POCT GLUCOSE DEVICE Routine 01/26/2024 12:06 PM ASSISTANT CASE MANAGER TRANSFUSE RED BLOOD CELLS Timed 01/26/2024 9:00 AM ASSISTANT CASE MANAGER POCT GLUCOSE DEVICE Routine 01/26/2024 8 :25 AM ASSISTANT CASE MANAGER TYPE AND SCREEN Timed 01/26/2024 6:19 AM ASSISTANT CASE MANAGER PREPARE RBC Timed 01/26/2024 5:41 AM ASSISTANT CASE MANAGER EGFR Routine 01/26/2024 4:39 AM ASSISTANT CASE MANAGER DIFFERENTIAL AUTO Routine 01/26/2024 4:3 9 AM ASSISTANT CASE MANAGER TACROLIMUS LEVEL, TROUGH Routine 01/26/2024 4:39 AM ASSISTANT CASE MANAGER MAGNESIUM Routine 01/26/2024 4:39 AM ASSISTANT CASE MANAGER RENAL FUNCTION PANEL Routine 01/26/2024 4:39 AM ASSISTANT CASE MANAGER CBC WITH AUTO DIFFERENTIAL Routine 01/26/2024 4:39 AM ASSISTANT CASE MANAGER POCT GLUCOSE DEVICE Routine 01/25/2024 9 :33 PM ASSISTANT CASE MANAGER TROPONIN I HIGH-SENSITIVITY 6-HOUR Timed 01/25/2024 7:51 PM ASSISTANT CASE MANAGER TROPONIN I HIGH-SENSITIVITY 4-HOUR Timed 01/25/2024 6:00 PM ASSISTANT CASE MANAGER POCT GLUCOSE DEVICE Routine 01/25/2024 5 :49 PM ASSISTANT CASE MANAGER TROPONIN I HIGH-SENSITIVITY 2-HOUR Timed 01/25/2024 3:44 PM ASSISTANT CASE MANAGER XR CHEST 1 VIEW ED Urgent/IP Urgent 01/25/2024 2:52 PM ASSISTANT CASE MANAGER CBC WITHOUT DIFFERENTIAL STAT 01/25/2024 2:42 PM ASSISTANT CASE MANAGER TROPONIN I HIGH-SENSITIVITY STAT 01/25/2024 2:05 PM ASSISTANT CASE MANAGER CRITICAL RESULT CALLBACK CARDIO CHEM Routine 01/25/2024 1:46 PM ASSISTANT CASE MANAGER TROPONIN I HIGH-SENSITIVITY SERIES (BASELINE, 2HR, 4HR, 6HR) Routine 01/25/2024 1:46 PM ASSISTANT CASE MANAGER ECG 12-LEAD STAT 01/25/2024 1:31 PM ASSISTANT CASE MANAGER CREATININE, BODY FLUID Routine 01/25/2024 1:15 PM ASSISTANT CASE MANAGER POCT GLUCOSE DEVICE Routine 01/25/2024 12:46 PM ASSISTANT CASE MANAGER POCT GLUCOSE DEVICE Routine 01/25/2024 11:13 AM ASSISTANT CASE MANAGER CENTRAL LINE PLACEMENT > 5 YEARS IP Routine 01/25/2024 10:26 AM ASSISTANT CASE MANAGER POCT GLUCOSE DEVICE Routine 01/25/2024 7 :40 AM ASSISTANT CASE MANAGER DIFFERENTIAL AUTO Routine 01/25/2024 5:0 7 AM ASSISTANT CASE MANAGER EGFR Routine 01/25/2024 5:07 AM ASSISTANT CASE MANAGER TACROLIMUS LEVEL, TROUGH Routine 01/25/2024 5:07 AM ASSISTANT CASE MANAGER MAGNESIUM Routine 01/25/2024 5:07 AM ASSISTANT CASE MANAGER RENAL FUNCTION PANEL Routine 01/25/2024 5:07 AM ASSISTANT CASE MANAGER CBC WITH AUTO DIFFERENTIAL Routine 01/25/2024 5:07 AM ASSISTANT CASE MANAGER POCT GLUCOSE DEVICE Routine 01/24/2024 8 :58 PM ASSISTANT CASE MANAGER POCT GLUCOSE DEVICE Routine 01/24/2024 4 :57 PM ASSISTANT CASE MANAGER POCT GLUCOSE DEVICE Routine 01/24/2024 11:41 AM ASSISTANT CASE MANAGER POCT GLUCOSE DEVICE Routine 01/24/2024 7 :32 AM ASSISTANT CASE MANAGER DIFFERENTIAL AUTO Routine 01/24/2024 5:0 6 AM ASSISTANT CASE MANAGER EGFR Routine 01/24/2024 5:06 AM ASSISTANT CASE MANAGER TACROLIMUS LEVEL, TROUGH Routine 01/24/2024 5:06 AM ASSISTANT CASE MANAGER MAGNESIUM Routine 01/24/2024 5:06 AM ASSISTANT CASE MANAGER RENAL FUNCTION PANEL Routine 01/24/2024 5:06 AM ASSISTANT CASE MANAGER CBC WITH AUTO DIFFERENTIAL Routine 01/24/2024 5:06 AM ASSISTANT CASE MANAGER POCT GLUCOSE DEVICE Routine 01/23/2024 9 :19 PM ASSISTANT CASE MANAGER POCT GLUCOSE DEVICE Routine 01/23/2024 5 :44 PM ASSISTANT CASE MANAGER POCT GLUCOSE DEVICE Routine 01/23/2024 12:11 PM ASSISTANT CASE MANAGER HEMODIALYSIS Routine 01/23/2024 8:43 AM ASSISTANT CASE MANAGER POCT GLUCOSE DEVICE Routine 01/23/2024 8 :18 AM ASSISTANT CASE MANAGER TROPONIN I HIGH-SENSITIVITY Routine 01/23/2024 6:12 AM ASSISTANT CASE MANAGER CBC WITH AUTO DIFFERENTIAL Routine 01/23/2024 2:42 AM ASSISTANT CASE MANAGER EGFR Routine 01/23/2024 2:42 AM ASSISTANT CASE MANAGER DIFFERENTIAL AUTO Routine 01/23/2024 2:4 2 AM ASSISTANT CASE MANAGER TACROLIMUS LEVEL, TROUGH Routine 01/23/2024 2:42 AM ASSISTANT CASE MANAGER MAGNESIUM Routine 01/23/2024 2:42 AM ASSISTANT CASE MANAGER RENAL FUNCTION PANEL Routine 01/23/2024 2:42 AM ASSISTANT CASE MANAGER TROPONIN I HIGH-SENSITIVITY Routine 01/23/2024 2:41 AM ASSISTANT CASE MANAGER ECG 12-LEAD STAT 01/23/2024 1:02 AM ASSISTANT CASE MANAGER DIFFERENTIAL AUTO Routine 01/22/2024 11:14 PM ASSISTANT CASE MANAGER TROPONIN I HIGH-SENSITIVITY Routine 01/22/2024 11:14 PM ASSISTANT CASE MANAGER TROPONIN I HIGH-SENSITIVITY Routine 01/22/2024 11:14 PM ASSISTANT CASE MANAGER TYPE AND SCREEN Timed 01/22/2024 11:14 PM ASSISTANT CASE MANAGER TACROLIMUS LEVEL, TROUGH Routine 01/22/2024 11:14 PM ASSISTANT CASE MANAGER CBC WITH AUTO DIFFERENTIAL Routine 01/22/2024 11:14 PM ASSISTANT CASE MANAGER XR CHEST 1 VIEW ED Urgent/IP Urgent 01/22/2024 8:41 PM ASSISTANT CASE MANAGER POCT GLUCOSE DEVICE Routine 01/22/2024 8 :07 PM ASSISTANT CASE MANAGER POCT GLUCOSE DEVICE Routine 01/22/2024 6 :42 PM ASSISTANT CASE MANAGER TROPONIN I HIGH-SENSITIVITY 6-HOUR Timed 01/22/2024 6:40 PM ASSISTANT CASE MANAGER TRANSFUSE RED BLOOD CELLS Timed 01/22/2024 6:15 PM ASSISTANT CASE MANAGER TRANSTHORACIC ECHO (TTE) COMPLETE W DOPPLER/CF W CONTRAST STAT 01/22/2024 5:31 PM ASSISTANT CASE MANAGER TYPE AND SCREEN Timed 01/22/2024 4:14 PM ASSISTANT CASE MANAGER TROPONIN I HIGH-SENSITIVITY 4-HOUR Timed 01/22/2024 4:14 PM ASSISTANT CASE MANAGER ECG 12-LEAD STAT 01/22/2024 3:39 PM ASSISTANT CASE MANAGER CBC WITHOUT DIFFERENTIAL STAT 01/22/2024 2:07 PM ASSISTANT CASE MANAGER ECG 12-LEAD Routine 01/22/2024 12:59 PM ASSISTANT CASE MANAGER CRITICAL RESULT CALLBACK CARDIO CHEM Routine 01/22/2024 12:18 PM ASSISTANT CASE MANAGER EGFR STAT 01/22/2024 12:18 PM ASSISTANT CASE MANAGER TROPONIN I HIGH-SENSITIVITY SERIES (BASELINE, 2HR, 4HR, 6HR) Routine 01/22/2024 12:18 PM ASSISTANT CASE MANAGER PHOSPHORUS STAT 01/22/2024 12:18 PM ASSISTANT CASE MANAGER MAGNESIUM STAT 01/22/2024 12:18 PM ASSISTANT CASE MANAGER BASIC METABOLIC PANEL STAT 01/22/2024 12:18 PM ASSISTANT CASE MANAGER POCT GLUCOSE DEVICE Routine 01/22/2024 11:35 AM ASSISTANT CASE MANAGER XR ABDOMEN AP 1 VIEW IP Routine 01/22/2024 10:29 AM ASSISTANT CASE MANAGER AZ AN PROCEDURE PLACEHOLDER Routine 01/22/2024 9:42 AM ASSISTANT CASE MANAGER AZ AN ELECTIVE ENDOTRACHEAL AIRWAY Routine 01/22/2024 9:42 AM ASSISTANT CASE MANAGER RE-EXPLORATION KIDNEY TRANSPLANT 01/22/2024 9:18 AM ASSISTANT CASE MANAGER -donor kidney transplant recipient Case Notes 01/[id number]- Ace Bennett via phone call dos 01/21 kristal time sensitive - DMF EGFR STAT 01/22/2024 9:02 AM ASSISTANT CASE MANAGER BASIC METABOLIC PANEL STAT 01/22/2024 9:02 AM ASSISTANT CASE MANAGER POCT GLUCOSE DEVICE Routine 01/22/2024 9 :01 AM ASSISTANT CASE MANAGER POCT GLUCOSE DEVICE Routine 01/22/2024 8 :26 AM ASSISTANT CASE MANAGER LACTATE DEHYDROGENASE Routine 01/22/2024 4:58 AM ASSISTANT CASE MANAGER HAPTOGLOBIN Routine 01/22/2024 4:58 AM ASSISTANT CASE MANAGER EGFR Routine 01/22/2024 4:58 AM ASSISTANT CASE MANAGER DIFFERENTIAL AUTO Routine 01/22/2024 4:5 8 AM ASSISTANT CASE MANAGER TACROLIMUS LEVEL, TROUGH Routine 01/22/2024 4:58 AM ASSISTANT CASE MANAGER MAGNESIUM Routine 01/22/2024 4:58 AM ASSISTANT CASE MANAGER RENAL FUNCTION PANEL Routine 01/22/2024 4:58 AM ASSISTANT CASE MANAGER CBC WITH AUTO DIFFERENTIAL Routine 01/22/2024 4:58 AM ASSISTANT CASE MANAGER POCT GLUCOSE DEVICE Routine 01/21/2024 8 :34 PM ASSISTANT CASE MANAGER POCT GLUCOSE DEVICE Routine 01/21/2024 6 :37 PM ASSISTANT CASE MANAGER POTASSIUM, WHOLE BLOOD STAT 01/21/2024 4:22 PM ASSISTANT CASE MANAGER CBC WITHOUT DIFFERENTIAL STAT 01/21/2024 1:51 PM ASSISTANT CASE MANAGER POCT GLUCOSE DEVICE Routine 01/21/2024 12:26 PM ASSISTANT CASE MANAGER AZ AN PROCEDURE PLACEHOLDER Routine 01/21/2024 10:41 AM ASSISTANT CASE MANAGER HEMODIALYSIS Routine 01/21/2024 9:39 AM ASSISTANT CASE MANAGER POTASSIUM LEVEL Timed 01/21/2024 8:39 AM ASSISTANT CASE MANAGER POCT GLUCOSE DEVICE Routine 01/21/2024 8 :10 AM ASSISTANT CASE MANAGER POCT GLUCOSE DEVICE Routine 01/21/2024 6 :47 AM ASSISTANT CASE MANAGER POCT GLUCOSE DEVICE Routine 01/21/2024 5 :46 AM ASSISTANT CASE MANAGER POTASSIUM, WHOLE BLOOD STAT 01/21/2024 5:22 AM ASSISTANT CASE MANAGER ECG 12-LEAD STAT 01/21/2024 5:17 AM ASSISTANT CASE MANAGER EGFR Routine 01/21/2024 4:18 AM ASSISTANT CASE MANAGER CRITICAL RESULT CALLBACK CHEMISTRY Routine 01/21/2024 4:18 AM ASSISTANT CASE MANAGER DIFFERENTIAL AUTO Routine 01/21/2024 4:1 8 AM ASSISTANT CASE MANAGER TACROLIMUS LEVEL, TROUGH Routine 01/21/2024 4:18 AM ASSISTANT CASE MANAGER MAGNESIUM Routine 01/21/2024 4:18 AM ASSISTANT CASE MANAGER RENAL FUNCTION PANEL Routine 01/21/2024 4:18 AM ASSISTANT CASE MANAGER CBC WITH AUTO DIFFERENTIAL Routine 01/21/2024 4:18 AM ASSISTANT CASE MANAGER US RENAL TRANSPLANT W DOPPLERS ED Urgent/IP Urgent 01/20/2024 11:24 PM ASSISTANT CASE MANAGER POCT GLUCOSE DEVICE Routine 01/20/2024 8 :56 PM ASSISTANT CASE MANAGER XR CHEST 1 VIEW ED Urgent/IP Urgent 01/20/2024 5:58 PM ASSISTANT CASE MANAGER EGFR STAT 01/20/2024 5:08 PM ASSISTANT CASE MANAGER RENAL FUNCTION PANEL STAT 01/20/2024 5:08 PM ASSISTANT CASE MANAGER CBC WITHOUT DIFFERENTIAL STAT 01/20/2024 5:08 PM ASSISTANT CASE MANAGER POCT GLUCOSE DEVICE Routine 01/20/2024 4 :51 PM ASSISTANT CASE MANAGER POC BLOOD GAS AND CHEMISTRIES, ARTERIAL Routine 01/20/2024 4:23 PM ASSISTANT CASE MANAGER TRANSFUSE RED BLOOD CELLS Timed 01/20/2024 3:54 PM ASSISTANT CASE MANAGER POC BLOOD GAS AND CHEMISTRIES, ARTERIAL Routine 01/20/2024 3:09 PM ASSISTANT CASE MANAGER POCT GLUCOSE DEVICE Routine 01/20/2024 2 :41 PM ASSISTANT CASE MANAGER ANESTHESIA CENTRAL VENOUS LINE PLACEMENT Routine 01/20/2024 2:37 PM ASSISTANT CASE MANAGER ANESTHESIA INTUBATION Routine 01/20/2024 1:37 PM ASSISTANT CASE MANAGER TRANSPLANT KIDNEY 01/20/2024 12:46 PM ASSISTANT CASE MANAGER ESRD (end stage renal disease) (CMS/HCC) ([facility]) Case Notes ORT TIME: TBDUNOS#[id number]:MWOBMatch ID#: [id number] Group:OTransplant Coordinator: Mervat [phone] POCT GLUCOSE DEVICE Routine 01/20/2024 11:12 AM ASSISTANT CASE MANAGER HLA DONOR SPECIFIC ANTIBODY REPORT 01/20/2024 7:31 AM ASSISTANT CASE MANAGER EGFR Routine 01/20/2024 12:08 AM ASSISTANT CASE MANAGER BASIC METABOLIC PANEL Routine 01/20/2024 12:08 AM ASSISTANT CASE MANAGER HEMODIALYSIS Routine 01/19/2024 6:44 PM ASSISTANT CASE MANAGER XR ANKLE RIGHT 3 OR MORE VIEWS IP Routine 01/19/2024 12:37 PM ASSISTANT CASE MANAGER XR TIBIA FIBULA RIGHT2 VIEWS IP Routine 01/19/2024 12:37 PM ASSISTANT CASE MANAGER URINE CULTURE Routine 01/19/2024 8:50 AM ASSISTANT CASE MANAGER PREPARE RBC Timed 01/19/2024 6:31 AM ASSISTANT CASE MANAGER HLA CROSSMATCH REPORT 01/18/2024 11:43 PM ASSISTANT CASE MANAGER HLA ANTIBODY SCREEN - SAB (CLASS I AND CLASS II) Routine 01/18/2024 11:43 PM ASSISTANT CASE MANAGER HLA CROSSMATCH, ALLO STAT 01/18/2024 11:43 PM ASSISTANT CASE MANAGER HLA ANTIBODY SCREEN BY PRA OR SAB PER SCHEDULE (CLASS I AND CLASS II) STAT 01/18/2024 11:43 PM ASSISTANT CASE MANAGER XR CHEST 1 VIEW ED Urgent/IP Urgent 01/18/2024 11:41 PM ASSISTANT CASE MANAGER EGFR STAT 01/18/2024 10:50 PM ASSISTANT CASE MANAGER DIFFERENTIAL AUTO STAT 01/18/2024 10:50 PM ASSISTANT CASE MANAGER HLA ANTIBODY SCREEN BY PRA STAT 01/18/2024 10:50 PM ASSISTANT CASE MANAGER IRON PROFILE W/ IBC Routine 01/18/2024 10:50 PM ASSISTANT CASE MANAGER LIPID PANEL Routine 01/18/2024 10:50 PM ASSISTANT CASE MANAGER URIC ACID Routine 01/18/2024 10:50 PM ASSISTANT CASE MANAGER HEMOGLOBIN A1C Routine 01/18/2024 10:50 PM ASSISTANT CASE MANAGER FERRITIN Routine 01/18/2024 10:50 PM ASSISTANT CASE MANAGER TYPE AND SCREEN STAT 01/18/2024 10:50 PM ASSISTANT CASE MANAGER PHOSPHORUS STAT 01/18/2024 10:50 PM ASSISTANT CASE MANAGER PROTIME-INR STAT 01/18/2024 10:50 PM ASSISTANT CASE MANAGER COMPREHENSIVE METABOLIC PANEL STAT 01/18/2024 10:50 PM ASSISTANT CASE MANAGER CBC WITH AUTO DIFFERENTIAL STAT 01/18/2024 10:50 PM ASSISTANT CASE MANAGER APTT STAT 01/18/2024 10:50 PM ASSISTANT CASE MANAGER HIV 1/2 ANTIBODY PLUS P24 ANTIGEN Routine 01/18/2024 10:50 PM ASSISTANT CASE MANAGER HEPATITIS C RNA, QUANTITATIVE, PCR Routine 01/18/2024 10:50 PM ASSISTANT CASE MANAGER HEPATITIS C ANTIBODY Routine 01/18/2024 10:50 PM ASSISTANT CASE MANAGER HEPATITIS B SURFACE ANTIGEN Routine 01/18/2024 10:50 PM ASSISTANT CASE MANAGER HEPATITIS B SURFACE ANTIBODY (IMMUNE STATUS) Routine 01/18/2024 10:50 PM ASSISTANT CASE MANAGER HEPATITIS B CORE ANTIBODY, TOTAL Routine 01/18/2024 10:50 PM [address]IST[address] CASE [address] CT CHEST WO CONTRAST F/U LUNG SCREEN PROTOCOL Schedule Routine, Read Routine (OP Routine) 01/13/2024 3:25 PM ASSISTANT CASE MANAGER Abnormal CT lung screening PSA SCREEN Routine [...] Units total) by mouth daily 30 tablet 11 2024 Active acetaminophen 500 mg capsuleIndicatio ns:Pain [...] by mouth daily 30 tablet 2024 Active cyclobenzaprine (FLEXERIL) 5 mg tablet [...] blood glucose diagnostic stripIndications :-donor kidney transplant recipient,[facility] d-induced hyperglycemia 1 strip QID with [...] at bedtime. Max of 100 each 1 11/28/2 024 Active oxyCODONE (ROXICODONE) 5 mg immediate release tabletIndication s:Pain Take 1 tablet (5 mg total) by mouth every 4 (four) hours as needed for pain 12 tablet 024 Active clopidogreL (PLAVIX) 75 mg tablet Take 1 tablet (75 mg total) by mouth daily 30 tablet 024 Active furosemide (LASIX) 80 mg tablet Take 1 tablet (80 mg total) by mouth daily 30 tablet 1 024 Active apixaban (ELIQUIS) 5 mg tabletIndication s:atrial fibrillation Take 1 tablet (5 mg total) by mouth 2 (two) times a day Active pregabalin (LYRICA) 150 mg capsule Take 1 capsule by mouth twice daily 60 capsule 025 Active insulin aspart (NovoLOG) 100 unit/mL (3 [...] Max daily dose 65) 60 mL 3 025 Active TRESIBA 100 unit/mL (3 mL) pen [...] under the skin every morning 6 mL 2024 Discontinued(A lternate therapy) insulin lispro (HumaLOG) [...] different from the original. Discharge Planning: Pharmacy: [facility] - [address] in [place], [place] Specialty: [facility] Specialty Program Labs: [facility] Q-WEEKLY, FK; Q-MONTHLY BK; Q-3 ROUTINE (Exp 08/16/24) HH: [facility] Verbal Consent: Jonathan (spouse), Ramone (son), Liz ([id number]) Problem Noted Date Diagnosed Date Perinephric fluid collection 02/21/2024 Atrial fibrillation ([facility]) 02/08/2024 Overview (02/08/2024): Per cardiology Chronic [...] (01/07/2022): Added automatically from request for surgery [id number] Left knee pain 08/08/2021 Primary hypothyroidism 08/08/2021 Cellulitis of right lower extremity 05/02/2021 Coronary artery disease invo lving [facility] without angina pectoris 10/25/2020 Overview (10/25/2020): Added automatically from request for surgery [id number] Diabetes mellitus 06/12/2020 Mixed hyperlipidemia 06/12/2020 Assessment & Plan (10/15/2023 11:31 AM CDT): Hyperlipidemia chronic controlled. Continue current medical management. Lower extremity edema 07/07/2018 Hyperkalemia 03/15/2018 Volume overload 03/15/2018 Anemia in stage 5 chronic ki dney disease, not on chronic dialysis 03/15/2018 ESRD (end stage renal disease) ([facility]) 018 Overview (01/25/2018): Added automatically from request for surgery [id number] Assessment & Plan (10/15/2023 11:28 AM CDT): End-stage renal disease. Continue dialysis pending renal transplant. LOLLY (renal osteodystrophy) 09/28/2017 Metabolic acidosis 09/28/2017 Essential hypertension 09/28/2017 Anemia in stage 4 chronic kidney disease 018 Stage 5 chronic kidney disease (CMS/HCC) 018 Overview (03/10/2024): Added automatically from request for surgery [id number] Chronic renal failure, stage 4 (severe) (CMS/HCC ) 06/15/2017 Chronic renal insufficiency, stage III [...] Trivalent, IM (MDV) 11/08/2012 Influenza, Unspecified 12/26/2020 All-Scrap (J&J) SARS-CoV-2 Vaccination 04/30/2020 Pneumococcal Conjugate PCV [...] materials from doctor or pharmacy Never 03/08/2024 [facility] Utilities Answer Date Recorded In the [...] often do you attend chur ch or protestant services? Never 02/22/2024 Do you belong to [...] medical appointments or from getting medications? No 12/2 05/2023 In the past 12 months, has l [...] place to sleep or slept in a jail (including now)? No 03/25/2023 Housing Stability Vital Sign Answer Ramesh e Recorded In the last 12 months, was t here a time when you were not able to pay the mortgage or rent on time? No 02/22/2024 In the past 12 months, how m any times have you moved where you were living? 0 02/22/2024 At any time in the past 12 m [facility], were you homeless or living in a jail (including now)? No 02/22/2024 Personal Safety Answer [...] on file Legal Sex Male 3:24 AM ASSISTANT CASE MANAGER Gender Identity Male 11/30/2017 3:03 PM CDT Sexual Orientation Straight 06/05/2020 6: 53 AM CDT Last Filed Vital Signs Vital Sign Reading Time Taken Comments Blood Pressure 127/67 04/06/2024 12:54 PM ASSISTANT CASE MANAGER Pulse 74 04/06/2024 12:54 PM ASSISTANT CASE MANAGER Temperature 36.6 C (97.8 F) 04/06/2024 10:21 AM ASSISTANT CASE MANAGER Respiratory Rate 16 03/22/2024 10:08 AM ASSISTANT CASE MANAGER Oxygen Saturation 94% 04/06/2024 12:54 PM ASSISTANT CASE MANAGER Inhaled Oxygen Concentration - - Weight 117.9 kg (260 lb) 04/06/2024 12:54 PM ASSISTANT CASE MANAGER Height 190.5 cm (6' 3 ) 04/06/2024 12:54 PM ASSISTANT CASE MANAGER Body Mass Index 32.5 04/06/2024 12:54 PM ASSISTANT CASE MANAGER Results * (ABNORMAL) eGFR (04/19/2024 10:42 AM ASSISTANT CASE MANAGER) eGFR 24(L) >=60 mL/min/1. 73 m2 [...] reviewed 2020. Blood 04/19/2024 10:4 2 AM ASSISTANT CASE MANAGER 04/19/2024 11:14 AM ASSISTANT CASE MANAGER us Jcak Morrison MD LAB BLOOD ORDERABLES Final R esult [facility] Department [place] [address] * (ABNORMAL) Differential, auto (04/19/2024 10:42 AM ASSISTANT CASE MANAGER) Pathologist [facility] Neutrophil abs 13.1(H) 1.5 - 6.5 K/cumm Imm gran abs 0.9(H) 0.0 - 0.1 K/cumm [facility] Lymphocyte abs 0.3(L) 0.8 - 3.3 K/cumm [facility] Monocyte abs 0.6 0.2 - 0.8 K/cumm [facility] Eosinophil abs 0.0 0.0 - 0.5 K/cumm [facility] Basophil abs 0.1 0.0 - 0.1 K/cumm [facility] Neutrophil pct 87.8 % [facility] Comment: Interpretive Data Percent cell count reference ranges are not reported, since discordance with absolute values may lead to misinterpretation of CBC data. Current Interpretive Data was last revised on 2017. Imm gran pct 5.8 % [facility] Comment: Interpretive Data Percent cell count reference ranges are not reported, since discordance with absolute values may lead to misinterpretation of CBC data. Current Interpretive Data was last revised on 2017. Lymphocyte pct 1.8 % [facility] Comment: Interpretive Data Percent cell count reference ranges are not reported, since discordance with absolute values may lead to misinterpretation of CBC data. Current Interpretive Data was last revised on 2017. Monocyte pct 4.0 % [facility] Comment: Interpretive Data Percent cell count reference ranges are not reported, since discordance with absolute values may lead to misinterpretation of CBC data. Current Interpretive Data was last revised on 2017. Eosinophil pct 0.1 % [facility] Comment: Interpretive Data Percent cell count reference ranges are not reported, since discordance with absolute values may lead to misinterpretation of CBC data. Current Interpretive Data was last revised on 2017. Basophil pct 0.5 % [facility] Comment: Interpretive Data Percent cell count reference ranges are not reported, since discordance with absolute values may lead to misinterpretation of CBC data. Current Interpretive Data was last revised on 2017. Blood 04/19/2024 10:4 2 AM ASSISTANT CASE MANAGER 04/19/2024 11:14 AM ASSISTANT CASE MANAGER us Jack Morrison MD LAB BLOOD ORDERABLES Final R esult [facility] Department of Laboratories [place], [place] [id number] * Tacrolimus level trough (04/19/2024 10:42 AM ASSISTANT CASE MANAGER) Tacrolimus trough 7.7 ng/mL Comment: Interpretive Data Testing performed by liquid chromatography-tandem mass spectrometry. Therapeutic concentrations vary depending on type of transplanted organ and time elapsed since transplant. Typical trough concentrations range from 5-15 ng/mL. This test was developed and its performance characteristics determined by the [facility] consistent with CLIA requirements. This test has not been cleared or approved by the [place] Food and Drug administration. Current interpretive data last reviewed 2019. Blood 04/19/2024 10:4 2 AM ASSISTANT CASE MANAGER 04/19/2024 11:14 AM ASSISTANT CASE MANAGER Jack Morrison MD LAB BLOOD ORDERABLES Final R esult Performing Organization Address City/[facility]/ZIP Co de Phone Number [facility] [place] [address] * (ABNORMAL) CBC with auto differential (04/19/2024 10:42 AM ASSISTANT CASE MANAGER) WBC 14.9(H) 3.8 - 9.9 K/cumm Hgb 11.6(L) 13.0 - 17.5 g/dL [facility] Hct 35.5(L) 38.9 - 50.3 % [facility] Plt 281 150 - 400 K/cumm [facility] MPV 10.2 9.1 - 12.3 fL [facility] RBC 3.79(L) 4.30 - 5.80 M/cumm [facility] MCV 93.7 81.3 - 96.4 fL [facility] MCH 30.6 27.1 - 33.3 pg [facility] MCHC 32.7 32.3 - 35.7 g/dL [facility] RDW CV 13.5 11.1 - 14.9 % [facility] RDW SD 45.1 35.7 - 48.1 fL [facility] NRBC abs 0.00 0.00 - 0.01 K/cumm [facility] Blood 04/19/2024 10:4 2 AM ASSISTANT CASE MANAGER 04/19/2024 11:14 AM ASSISTANT CASE MANAGER Jack Morrison MD LAB BLOOD ORDERABLES Final R esult Performing Organization Address City/[facility]/ZIP Co de Phone Number [facility] Department [place] [address] * (ABNORMAL) Renal function panel (04/19/2024 10:42 AM ASSISTANT CASE MANAGER) Pathologist [facility] Sodium 138 135 - 145 mmol/L Potassium, pl 4.7 3.3 - 4.9 mmol/L [facility] Chloride 99 97 - 110 mmol/L [facility] CO2 29 22 - 32 mmol/L [facility] Anion gap 10 2 - 15 mmol/L [facility] BUN 38(H) 6 - 25 mg/dL [facility] Creatinine 2.80(H) 0.80 - 1.30 mg/dL [facility] Glucose 125 70 - 199 mg/dL [facility] Comment: Interpretive Data Fasting glucose >/= 126 [...] 2022. Calcium 10.7(H) 8.5 - 10.3 mg/dL [facility] Phosphorus, pl 2.5 2.3 - 4.5 mg/dL [facility] Albumin 3.9 3.5 - 5.0 g/dL [facility] Blood 04/19/2024 10:4 2 AM ASSISTANT CASE MANAGER 04/19/2024 11:14 AM ASSISTANT CASE MANAGER us Jack Morrison MD LAB BLOOD ORDERABLES Final R esult [facility] Department [place] [address] * (ABNORMAL) Differential, auto (04/06/2024 11:42 AM ASSISTANT CASE MANAGER) Pathologist [facility] Neutrophil abs 9.1(H) 1.5 - 6.5 K/cumm Imm gran abs 0.7(H) 0.0 - 0.1 K/cumm [facility] Lymphocyte abs 0.2(L) 0.8 - 3.3 K/cumm [facility] Monocyte abs 0.5 0.2 - 0.8 K/cumm [facility] Eosinophil abs 0.0 0.0 - 0.5 K/cumm [facility] Basophil abs 0.0 0.0 - 0.1 K/cumm [facility] Neutrophil pct 86.6 % [facility] Comment: Interpretive Data Percent cell count reference ranges are not reported, since discordance with absolute values may lead to misinterpretation of CBC data. Current Interpretive Data was last revised on 2017. Imm gran pct 6.5 % [facility] Comment: Interpretive Data Percent cell count reference ranges are not reported, since discordance with absolute values may lead to misinterpretation of CBC data. Current Interpretive Data was last revised on 2017. Lymphocyte pct 1.4 % [facility] Comment: Interpretive Data Percent cell count reference ranges are not reported, since discordance with absolute values may lead to misinterpretation of CBC data. Current Interpretive Data was last revised on 2017. Monocyte pct 4.9 % [facility] Comment: Interpretive Data Percent cell count reference ranges are not reported, since discordance with absolute values may lead to misinterpretation of CBC data. Current Interpretive Data was last revised on 2017. Eosinophil pct 0.3 % [facility] Comment: Interpretive Data Percent cell count reference ranges are not reported, since discordance with absolute values may lead to misinterpretation of CBC data. Current Interpretive Data was last revised on 2017. Basophil pct 0.3 % [facility] Comment: Interpretive Data Percent cell count reference ranges are not reported, since discordance with absolute values may lead to misinterpretation of CBC data. Current Interpretive Data was last revised on 2017. Blood 04/06/2024 11:4 2 AM ASSISTANT CASE MANAGER 04/06/2024 11:58 AM ASSISTANT CASE MANAGER Aurea Fine NP LAB BLOOD ORDERABLES Final Result Performing Organization Address [facility] Co de Phone Number [facility] Department [place] [address] * (ABNORMAL) CBC with auto differential (04/06/2024 11:42 AM ASSISTANT CASE MANAGER) [facility] WBC 10.5(H) 3.8 - 9.9 K/cumm Hgb 11.5(L) 13.0 - 17.5 g/dL [facility] Hct 34.3(L) 38.9 - 50.3 % [facility] Plt 251 150 - 400 K/cumm [facility] MPV 10.1 9.1 - 12.3 fL [facility] RBC 3.60(L) 4.30 - 5.80 M/cumm [facility] MCV 95.3 81.3 - 96.4 fL [facility] MCH 31.9 27.1 - 33.3 pg [facility] MCHC 33.5 32.3 - 35.7 g/dL [facility] RDW CV 12.8 11.1 - 14.9 % [facility] RDW SD 44.4 35.7 - 48.1 fL [facility] NRBC abs 0.00 0.00 - 0.01 K/cumm [facility] Blood 04/06/2024 11:4 2 AM ASSISTANT CASE MANAGER 04/06/2024 11:58 AM ASSISTANT CASE MANAGER Aurea Fine NP LAB BLOOD ORDERABLES Final Result Performing Organization Address [facility] Co de Phone Number [facility] Department [place] [address] * (ABNORMAL) Respiratory pathogen panel Nasopharyngeal (04/06/2024 11:41 AM ASSISTANT CASE MANAGER) [facility] Influenza A RNA Not Detected Not Detected Influenza B RNA Not Detected Not Detected [facility] RSV RNA Not Detected Not Detected [facility] COVID-19 RNA Not Detected Not Detected [facility] Coronavirus 229E RNA Not Detected Not Detected [facility] Coronavirus HKU1 RNA Not Detected Not Detected [facility] Coronavirus NL63 RNA Not Detected Not Detected [facility] Coronavirus OC43 RNA Not Detected Not Detected [facility] Adenovirus DNA Not Detected Not Detected [facility] Metapneumovirus RNA Not Detected Not Detected [facility] Rhinovirus/Enterov irus RNA Detected(A) Not Detected [facility] Parainfluenza 1 RNA Not Detected Not Detected [facility] Parainfluenza 2 RNA Not Detected Not Detected [facility] Parainfluenza 3 RNA Not Detected Not Detected [facility] Parainfluenza 4 RNA Not Detected Not Detected [facility] B. pertussis DNA Not Detected Not Detected [facility] B. parapertussis DNA Not Detected Not Detected [facility] C. pneumoniae DNA Not Detected Not Detected [facility] M. pneumoniae DNA Not Detected Not Detected [facility] Nasopharyngeal 04/06/2024 11 :41 AM ASSISTANT CASE MANAGER 04/06/2024 12:10 PM ASSISTANT CASE MANAGER Narrative [facility] - 04/06/2024 1:15 PM ASSISTANT CASE MANAGER Is the Patient experiencing symptoms consistent with COVID?->Unknown Surveillance testing for transplant patient?->No Interpretive Data The [employer] FilmArray Respiratory Panel (RP2.1) assay is a [...] assay has FDA clearance for testing of CAPSULE FILLING MACHINE OPERATOR swabs. The performance of additional specimen types has been assessed by the performing laboratory. The performance characteristics of this assay have been determined by [facility] Molecular Infectious Disease Laboratory. Current interpretive data was last revised on 21. Aurea Fine CAPSULE FILLING MACHINE OPERATOR LAB MICROBIOLOGY - GENERAL ORDERABLES Final Result [facility] One [facility] Department [place] [address] * XR Chest PA Lateral 2 Views (04/06/2024 11:28 AM ASSISTANT CASE MANAGER) Anatomical Region Laterality Modality Body, Chest N/A Computed Radiogr aphy 04/06/2024 11:4 3 AM ASSISTANT CASE MANAGER Impressions 04/06/2024 6:32 PM ASSISTANT CASE MANAGER FINDINGS/IMPRESSION: Sternotomy plates and wires overlie the chest. Lungs are clear. No pleural effusion or pneumothorax. Cardiac mediastinal silhouette is stable when compared to prior radiograph. Dictated by: Giorgi Rinocn MD The radiology attending physician has personally reviewed this study, and had reviewed and/or edited this written report and agrees with it. Electronically signed by: Larry Red M.D. Narrative 04/06/2024 6:32 PM ASSISTANT CASE MANAGER EXAMINATION: XR CHEST PA LATERAL 2 VIEWS [...] it. Electronically signed by: Larry Red M.D. Aruea Fine NP IMG XR PROCEDURES Final Re sult * (ABNORMAL) POCT urinalysis dipstick (04/06/2024 10:35 AM ASSISTANT CASE MANAGER) Pathologist [facility] Glucose, ur, POC Negative Negative MG/DL Bilirubin, ur, POC Negative Negative, Small, Moderate, Large Ketones, ur, POC Negative Negative Specific [place], POC 1.025 1.003 - 1.030 Blood, ur, POC Negative Negative pH, ur, POC 5.5 5.0 - 8.0 Protein, ur, POC 1+(A) Negative Urobilinogen, urine, POC 0.2 0.2 - 1.0 mg/dL Nitrite, ur, POC Negative Negative Leukocytes, ur, POC 1+(A) Negative Lot Number [id number] Urine 04/06/2024 10:3 5 AM ASSISTANT CASE MANAGER Aurea Fine NP POINT OF CARE TEST ORDERAB LES Final Result * BK virus, DNA, quantitative Blood (04/05/2024 9:00 AM ASSISTANT CASE MANAGER) Pathologist [facility] BK Virus DNA, PCR Negative Negative IU/mL [facility] - 01 Comment: No BK DNA detected. The linear range of the assay is 22 - 100,000,000 IU/mL. Blood 04/05/2024 9:00 AM ASSISTANT CASE MANAGER 04/05/2024 Narrative [facility] - 04/07/2024 2:09 PM ASSISTANT CASE MANAGER Performed at: - [address] [id number] Director Of Research: Agustina Tyler MD, Phone: [phone] Jack Morrison MD LAB MICROBIOLOGY - GENERAL O RDERABLES Final Result Performing Organization Address [facility] Co de Phone Number [facility] - * Tacrolimus level trough (04/05/2024 8:59 AM ASSISTANT CASE MANAGER) [facility] Tacrolimus (FK506), Blood 11.7 5.0 - [...] reference interval change Blood 04/05/2024 8:59 AM ASSISTANT CASE MANAGER 04/05/2024 Narrative [facility] - 04/07/2024 8:07 PM ASSISTANT CASE MANAGER Test(s) [id number] ([id number]), Blood was developed and its performance characteristics determined by [facility]. It has not been cleared or approved by the Food and Drug Administration. Performed at: [address] [id number] Director Of Research: Agustina Tyler MD, Phone: [phone] Jack Morrison MD LAB BLOOD ORDERABLES Final R esult Performing Organization Address [facility] Co de Phone Number [facility] - * (ABNORMAL) Renal function panel (04/05/2024 8:58 AM ASSISTANT CASE MANAGER) Pathologist [facility] Glucose 129(H) 70 - 99 mg/dL [facility] [...] [facility] - 01 Blood 04/05/2024 8:58 AM ASSISTANT CASE MANAGER 04/05/2024 Narrative [facility] - 04/06/2024 4:07 AM ASSISTANT CASE MANAGER Performed at: [address] [id number] Director Of Research: Prabhjot Trammell PhD, Phone: [phone] us Jack Morrison MD LAB BLOOD ORDERABLES Final R esult [facility] - 01 * (ABNORMAL) Renal function panel (04/05/2024 8:57 AM ASSISTANT CASE MANAGER) Glucose 124(H) 70 - 99 mg/dL [facility] [...] [facility] - 01 Blood 04/05/2024 8:57 AM ASSISTANT CASE MANAGER 04/05/2024 Narrative [facility] - 04/06/2024 4:07 AM ASSISTANT CASE MANAGER Performed at: [address] [id number] Director Of Research: Prabhjot Trammell PhD, Phone: [phone] Jack Morrison MD LAB BLOOD ORDERABLES Final R esult Performing Organization Address City/[facility] Co de Phone Number [facility] - * BK virus, DNA, quantitative Blood (03/29/2024 11:28 AM ASSISTANT CASE MANAGER) BK Virus DNA, PCR Negative Negative IU/mL [facility] - Comment: No BK DNA detected. The linear range of the assay is 22 - 100,000,000 IU/mL. Blood 03/29/2024 11:2 8 AM ASSISTANT CASE MANAGER 03/29/2024 Narrative [facility] - 03/31/2024 2:09 PM ASSISTANT CASE MANAGER Performed at: [address] [id number] Director Of Research: Agustina Tyler MD, Phone: [phone] Jack Morrison MD LAB MICROBIOLOGY - GENERAL O RDERABLES Final Result [facility] - 01 * Tacrolimus level trough (03/29/2024 11:27 AM ASSISTANT CASE MANAGER) Tacrolimus (FK506), Blood 4.6 2.0 - 20.0 ng/mL [facility] - Comment: Trough (immediately following transplant) 15.0 Trough (steady state, 2 weeks or more after transplant): 3.0 - 8.0 Performed by LC-MS/MS technology. Effective April 02, 2024 the reference interval for Tacrolimus will be updated to: 5.0 - 20.0 ng/mL Blood 03/29/2024 11:2 7 AM ASSISTANT CASE MANAGER 03/29/2024 Narrative [facility] - 04/01/2024 4:09 PM ASSISTANT CASE MANAGER Test(s) [id number] (FK506), Blood was developed and its performance characteristics determined by [facility]. It has not been cleared or approved by the Food and Drug Administration. Performed at: - [address] [id number] Director Of Research: Agustina Tyler MD, Phone: [phone] us Jack Morrison MD LAB BLOOD ORDERABLES Final R esult [facility] - * (ABNORMAL) CBC with auto differential (03/29/2024 11:26 AM ASSISTANT CASE MANAGER) WBC 4.7 3.4 - 10.8 x10E3/uL [facility] [...] was performed. Blood 03/29/2024 11:2 6 AM ASSISTANT CASE MANAGER 03/29/2024 Narrative [facility] - 03/30/2024 3:07 AM ASSISTANT CASE MANAGER Performed at: 01 - [place] [id number] Director Of Research: Prabhjot Trammell PhD, Phone: [phone] us Jack Morrison MD LAB BLOOD ORDERABLES Final R esult [facility] 01 * (ABNORMAL) Renal function panel (03/29/2024 11:25 AM ASSISTANT CASE MANAGER) Pathologist [facility] Glucose 113(H) 70 - 99 mg/dL [facility] [...] - 01 Blood 03/29/2024 11:2 5 AM ASSISTANT CASE MANAGER 03/29/2024 Narrative [facility] - 03/30/2024 2:09 PM ASSISTANT CASE MANAGER Performed at: [address] [id number] Director Of Research: Prabhjot Trammell PhD, Phone: [phone] Jack Morrison MD LAB BLOOD ORDERABLES Final R esult Performing Organization Address City/[facility] Co de Phone Number [facility] * BK virus, DNA, quantitative Blood (03/23/2024 12:07 PM ASSISTANT CASE MANAGER) Pathologist [facility] BK Virus DNA, PCR Negative Negative IU/mL [facility] - Comment: No BK DNA detected. The linear range of the assay is 22 - 100,000,000 IU/mL. Blood 03/23/2024 12:0 7 PM ASSISTANT CASE MANAGER 03/23/2024 Narrative [facility] - 03/25/2024 12:09 PM ASSISTANT CASE MANAGER Performed at: [address] [id number] Director Of Research: Agustina Tyler MD, Phone: [phone] Jack Morrison MD LAB MICROBIOLOGY - GENERAL O RDERABLES Final Result Performing Organization Address [facility] de Phone Number [facility] * Tacrolimus level trough (03/23/2024 12:06 PM ASSISTANT CASE MANAGER) [facility] Tacrolimus (FK506), Blood 5.9 2.0 - 20.0 ng/mL [facility] - Comment: Trough (immediately following transplant) 15.0 Trough (steady state, 2 weeks or more after transplant): 3.0 - 8.0 Performed by LC-MS/MS technology. Effective April 02, 2024 the reference interval for Tacrolimus will be updated to: 5.0 - 20.0 ng/mL Blood 03/23/2024 12:0 6 PM ASSISTANT CASE MANAGER 03/23/2024 Narrative [facility] - 03/26/2024 8:07 PM ASSISTANT CASE MANAGER Test(s) [id number] (FK506), Blood was developed and its performance characteristics determined by [facility]. It has not been cleared or approved by the Food and Drug Administration. Performed at: - [facility] [address] [id number] Director Of Research: Agustina Tyler MD, Phone: [phone] us Jack Morrison MD LAB BLOOD ORDERABLES Final R esult [facility] - 01 * (ABNORMAL) CBC with auto differential (03/23/2024 12:05 PM ASSISTANT CASE MANAGER) WBC 7.0 3.4 - 10.8 x10E3/uL [facility] [...] clinical significance.) Blood 03/23/2024 12:0 5 PM ASSISTANT CASE MANAGER 03/23/2024 Narrative [facility] - 03/24/2024 6:09 AM ASSISTANT CASE MANAGER Performed at: - [address] [id number] Director Of Research: Prabhjot Trammell PhD, Phone: [phone] us Jack Morrison MD LAB BLOOD ORDERABLES Final R esult [facility] 01 * (ABNORMAL) Renal function panel (03/23/2024 12:04 PM ASSISTANT CASE MANAGER) Glucose 115(H) 70 - 99 mg/dL [facility] [...] - 01 Blood 03/23/2024 12:0 4 PM ASSISTANT CASE MANAGER 03/23/2024 Narrative [facility] - 03/24/2024 9:36 AM ASSISTANT CASE MANAGER Performed at: - [facility] [address] [id number] Director Of Research: Prabhjot Trammell PhD, Phone: [phone] us Jack Morrison MD LAB BLOOD ORDERABLES Final R esult [facility] - 01 * IR Inject Abscess Catheter (03/22/2024 10:05 AM ASSISTANT CASE MANAGER) Anatomical Region Laterality Modality Body N/A Radio Fluoroscop y 03/22/2024 10:1 6 AM ASSISTANT CASE MANAGER Impressions 03/22/2024 10:16 AM ASSISTANT CASE MANAGER Resolved collection with no evidence of fistula to adjacent structures. Catheter was removed. PLAN: Advise patient to monitor for any new symptoms. He will follow up with us as needed. If questions arise, please contact us by calling [phone]. Electronically signed by: Radha Barrios PA-C Narrative 03/22/2024 10:16 AM ASSISTANT CASE MANAGER EXAMINATION: DRAINAGE CATHETER EVALUATION AND REMOVAL HISTORY: [...] None TECHNIQUE: Prior to beginning the procedure, [place] Protocol was used to confirm the patient's identity and planned procedure. Fluoroscopy time has been recorded in the electronic medical record. After obtaining a rubber turner image, the catheter was injected with dilute [...] None TECHNIQUE: Prior to beginning the procedure, [place] Protocol was used to confirm the patient's identity and planned procedure. Fluoroscopy time has been recorded in the electronic medical record. After obtaining a rubber turner image, the catheter was injected with dilute [...] questions arise, please contact us by calling [phone]. Electronically signed by: Radha Barrios PA-C Flori LEE IMG IR PROCEDURES Final Res ult * Lipid panel (03/15/2024 9:49 AM ASSISTANT CASE MANAGER) Cholesterol 106 100 - 199 mg/dL [facility] - 01 Triglycerides 88 0 - 149 mg/dL [facility] - 01 HDL Cholesterol 44 >39 mg/dL [facility] - 01 VLDL 17 5 - 40 mg/dL [facility] - 01 LDL, calculated 45 0 - 99 mg/dL [facility] - 01 Blood 03/15/2024 9:49 AM ASSISTANT CASE MANAGER 03/15/2024 Narrative [facility] - 03/16/2024 3:07 AM ASSISTANT CASE MANAGER Performed at: [address] [id number] Director Of Research: Prabhjot Trammell PhD, Phone: [phone] us Jack Morrison MD LAB BLOOD ORDERABLES Final R esult [facility] - * BK virus, DNA, quantitative Blood (03/15/2024 9:48 AM ASSISTANT CASE MANAGER) [facility] BK Virus DNA, PCR Negative Negative IU/mL [facility] - Comment: No BK DNA detected. The linear range of the assay is 22 - 100,000,000 IU/mL. Blood 03/15/2024 9:48 AM ASSISTANT CASE MANAGER 03/15/2024 Narrative [facility] - 03/18/2024 12:09 PM ASSISTANT CASE MANAGER Performed at: [address] [id number] Director Of Research: Agustina Tyler MD, Phone: [phone] us Jack Morrison MD LAB MICROBIOLOGY - GENERAL O RDERABLES Final Result Performing Organization Address City/[facility]/ZIP Co de Phone Number [facility] - * (ABNORMAL) Hepatic function panel (03/15/2024 9:48 AM ASSISTANT CASE MANAGER) [facility] Protein, sr 6.4 6.0 - 8.5 [...] [facility] - 01 Blood 03/15/2024 9:48 AM ASSISTANT CASE MANAGER 03/15/2024 Narrative [facility] - 03/16/2024 4:07 AM ASSISTANT CASE MANAGER Performed at: - [address] [id number] Director Of Research: Prabhjot Trammell PhD, Phone: [phone] Jack Morrison MD LAB BLOOD ORDERABLES Final R [facility] Performing Organization Address [facility] de Phone Number [facility] * Tacrolimus level trough (03/15/2024 9:47 AM ASSISTANT CASE MANAGER) Pathologist [facility] Tacrolimus (FK506), Blood 4.4 2.0 - 20.0 ng/mL [facility] - 01 Comment: Trough (immediately following transplant) 15.0 Trough (steady state, 2 weeks or more after transplant): 3.0 - 8.0 Performed by LC-MS/MS technology. Effective April 02, 2024 the reference interval for Tacrolimus will be updated to: 5.0 - 20.0 ng/mL Blood 03/15/2024 9:47 AM ASSISTANT CASE MANAGER 03/15/2024 Narrative [facility] - 03/19/2024 12:08 PM ASSISTANT CASE MANAGER Test(s) [id number] (FK506), Blood was developed and its performance characteristics determined by [facility] [employer]. It has not been cleared or approved by the Food and Drug Administration. Performed at: [address] [id number] Director Of Research: Agustina Tyler MD, Phone: [phone] Jack Morrison MD LAB BLOOD ORDERABLES Final R [facility] Performing Organization Address [facility] Co de Phone Number [facility] * (ABNORMAL) CBC with auto differential (03/15/2024 9:47 AM ASSISTANT CASE MANAGER) Pathologist [facility] WBC 5.4 3.4 - 10.8 x10E3/uL [facility] [...] [facility] - 01 Blood 03/15/2024 9:47 AM ASSISTANT CASE MANAGER 03/15/2024 Narrative [facility] - 03/16/2024 3:07 AM ASSISTANT CASE MANAGER Performed at: - [facility] [id number] Director Of Research: Prabhjot Trammell PhD, Phone: [phone] us Jack Morrison MD LAB BLOOD ORDERABLES Final R esult [facility] - * (ABNORMAL) Renal function panel (03/15/2024 9:46 AM ASSISTANT CASE MANAGER) Pathologist [facility] Glucose 115(H) 70 - 99 mg/dL [facility] [...] [facility] - 01 Blood 03/15/2024 9:46 AM ASSISTANT CASE MANAGER 03/15/2024 Narrative [facility] - 03/16/2024 4:07 AM ASSISTANT CASE MANAGER Performed at: [address] [id number] Director Of Research: Prabhjot Trammell PhD, Phone: [phone] Jack Morrison MD LAB BLOOD ORDERABLES Final R esult [facility] - 01 * (ABNORMAL) POCT urinalysis dipstick (03/10/2024 8:47 AM ASSISTANT CASE MANAGER) Color, Urine, POC Yellow Clarity, ur, POC Clear Clear Glucose, ur, POC Negative Negative MG/DL Ketones, ur, POC Negative Negative Blood, ur, POC 3+(A) Negative pH, ur, POC 5.0 5.0 - 8.0 Protein, ur, POC Trace(A) Negative Nitrite, ur, POC Negative Negative Leukocytes, ur, POC Trace(A) Negative Lot Number 0 Urine 03/10/2024 8:47 AM ASSISTANT CASE MANAGER Roscoe Peck MD POINT OF CARE TEST ORDERABLES Final Result * BK virus PCR quantitative Blood (03/10/2024 8:21 AM ASSISTANT CASE MANAGER) Pathologist [facility] BKV DNA result, pl Not Detected [facility] Comment: The quantifiable range of this assay is 21.5 IU/mL to 100,000,000 IU/mL (1.33 log IU/mL to 8.00 log IU/mL). Testing was performed by the WALDEMAR 6800 BKV Quantatitive Test version 2.0 ([employer] Testing performed at [facility] Current Interpretive Data was last revised on 2020. Blood 03/10/2024 8:21 AM ASSISTANT CASE MANAGER 03/10/2024 8:43 AM ASSISTANT CASE MANAGER us Jack Morrison MD LAB MICROBIOLOGY - GENERAL O RDERABLES Final Result [facility] Department [place] [address] [facility] * (ABNORMAL) eGFR (03/10/2024 8:21 AM ASSISTANT CASE MANAGER) Pathologist [facility] eGFR 22(L) >=60 mL/min/1. 73 m2 Comment: [...] last reviewed 2020. Blood 03/10/2024 8:21 AM ASSISTANT CASE MANAGER 03/10/2024 8:42 AM ASSISTANT CASE MANAGER us Jack Morrison MD LAB BLOOD ORDERABLES Final R esult [facility] Department [place] [address] * (ABNORMAL) Differential, auto (03/10/2024 8:21 AM ASSISTANT CASE MANAGER) Neutrophil abs 4.9 1.5 - 6.5 K/cumm Imm gran abs 0.0 0.0 - 0.1 K/cumm [facility] Lymphocyte abs 0.3(L) 0.8 - 3.3 K/cumm [facility] Monocyte abs 0.4 0.2 - 0.8 K/cumm [facility] Eosinophil abs 0.0 0.0 - 0.5 K/cumm [facility] Basophil abs 0.0 0.0 - 0.1 K/cumm [facility] Neutrophil pct 86.2 % [facility] Comment: Interpretive Data Percent cell count reference ranges are not reported, since discordance with absolute values may lead to misinterpretation of CBC data. Current Interpretive Data was last revised on 2017. Imm gran pct 0.7 % [facility] Comment: Interpretive Data Percent cell count reference ranges are not reported, since discordance with absolute values may lead to misinterpretation of CBC data. Current Interpretive Data was last revised on 2017. Lymphocyte pct 4.9 % [facility] Comment: Interpretive Data Percent cell count reference ranges are not reported, since discordance with absolute values may lead to misinterpretation of CBC data. Current Interpretive Data was last revised on 2017. Monocyte pct 7.2 % [facility] Comment: Interpretive Data Percent cell count reference ranges are not reported, since discordance with absolute values may lead to misinterpretation of CBC data. Current Interpretive Data was last revised on 2017. Eosinophil pct 0.3 % [facility] Comment: Interpretive Data Percent cell count reference ranges are not reported, since discordance with absolute values may lead to misinterpretation of CBC data. Current Interpretive Data was last revised on 2017. Basophil pct 0.7 % [facility] Comment: Interpretive Data Percent cell count reference ranges are not reported, since discordance with absolute values may lead to misinterpretation of CBC data. Current Interpretive Data was last revised on 2017. Blood 03/10/2024 8:21 AM ASSISTANT CASE MANAGER 03/10/2024 8:39 AM ASSISTANT CASE MANAGER Jack Morrison MD LAB BLOOD ORDERABLES Final R esult Performing Organization Address City/[facility]/ZIP Co de Phone Number [facility] [place] [address] * (ABNORMAL) CBC with auto differential (03/10/2024 8:21 AM ASSISTANT CASE MANAGER) WBC 5.7 3.8 - 9.9 K/cumm Hgb 12.1(L) 13.0 - 17.5 g/dL [facility] Hct 36.1(L) 38.9 - 50.3 % [facility] Plt 220 150 - 400 K/cumm [facility] MPV 9.8 9.1 - 12.3 fL [facility] RBC 3.65(L) 4.30 - 5.80 M/cumm [facility] MCV 98.9(H) 81.3 - 96.4 fL [facility] MCH 33.2 27.1 - 33.3 pg [facility] MCHC 33.5 32.3 - 35.7 g/dL [facility] RDW CV 14.2 11.1 - 14.9 % [facility] RDW SD 52.4(H) 35.7 - 48.1 fL [facility] NRBC abs 0.00 0.00 - 0.01 K/cumm [facility] Blood 03/10/2024 8:21 AM ASSISTANT CASE MANAGER 03/10/2024 8:39 AM ASSISTANT CASE MANAGER Jack Morrison MD LAB BLOOD ORDERABLES Final R esult Performing Organization Address City/[facility]/ZIP Co de Phone Number [facility] [place] [address] * Tacrolimus level random (03/10/2024 8:21 AM ASSISTANT CASE MANAGER) Tacrolimus random 9.0 ng/mL Comment: Interpretive Data Testing performed by liquid chromatography-tandem mass spectrometry. Therapeutic concentrations vary depending on type of transplanted organ and time elapsed since transplant. Typical trough concentrations range from 5-15 ng/mL. This test was developed and its performance characteristics determined by the [facility] consistent with CLIA requirements. This test has not been cleared or approved by the [place] Food and Drug administration. Current interpretive data last reviewed 2019. Blood 03/10/2024 8:21 AM ASSISTANT CASE MANAGER 03/10/2024 8:39 AM ASSISTANT CASE MANAGER Jack Morrison MD LAB BLOOD ORDERABLES Final R esult Performing Organization Address City/[facility]/ZIP Co de Phone Number [facility] [place] [address] * Magnesium (03/10/2024 8:21 AM ASSISTANT CASE MANAGER) [facility] Magnesium 2.0 1.4 - 2.5 mg/dL Blood 03/10/2024 8:21 AM ASSISTANT CASE MANAGER 03/10/2024 8:39 AM ASSISTANT CASE MANAGER Jack Morrison MD LAB BLOOD ORDERABLES Final R [facility] [place] [address] * (ABNORMAL) Renal function panel (03/10/2024 8:21 AM ASSISTANT CASE MANAGER) Pathologist [facility] Sodium 142 135 - 145 mmol/L Potassium, pl 5.1(H) 3.3 - 4.9 mmol/L [facility] Chloride 108 97 - 110 mmol/L [facility] CO2 24 22 - 32 mmol/L [facility] Anion gap 10 2 - 15 mmol/L [facility] BUN 49(H) 6 - 25 mg/dL [facility] Creatinine 3.09(H) 0.80 - 1.30 mg/dL [facility] Glucose 91 70 - 199 mg/dL [facility] Comment: Interpretive Data Fasting glucose >/= 126 [...] 2022. Calcium 10.2 8.5 - 10.3 mg/dL [facility] Phosphorus, pl 3.2 2.3 - 4.5 mg/dL [facility] Albumin 3.8 3.5 - 5.0 g/dL [facility] Blood 03/10/2024 8:21 AM ASSISTANT CASE MANAGER 03/10/2024 8:39 AM ASSISTANT CASE MANAGER us Jack Morrison MD LAB BLOOD ORDERABLES Final R esult [facility] Department [place] [address] * PET Stress Test (03/08/2024 3:12 PM ASSISTANT CASE MANAGER) Anatomical Region Laterality Modality N/A Positron Emissio n Tomography (PET) 03/08/2024 4:13 PM ASSISTANT CASE MANAGER Impressions 03/08/2024 4:13 PM ASSISTANT CASE MANAGER Asymptomatic and electrocardiographically normal pharmacologic stress test I personally supervised and was present throughout the stress test. Refer to for the separate report of the PET myocardial perfusion imaging results. Electronically signed by: Jose Ortiz M.D. Narrative 03/08/2024 4:13 PM ASSISTANT CASE MANAGER EXAMINATION: PHARMACOLOGIC STRESS TEST FOR CARDIAC PET [...] Myocardial Perfusion Imaging (Multiple) (03/08/2024 3:12 PM ASSISTANT CASE MANAGER) Anatomical Region Laterality Modality Body N/A Positron Emissio n Tomography (PET) 03/08/2024 3:55 PM ASSISTANT CASE MANAGER Impressions 03/08/2024 4:09 PM ASSISTANT CASE MANAGER 1. There is a dsfkc-pd-jdlsoryn size and mild infarct involving the ireia-ya-jqy-segments inferoseptally associated with moderate severe theresa-infarct ischemia during pharmacologic stress. 2. Marked left ventricular dilation and mild global hyopkinesis with severe hypo-to akinesis uygui-ll-wec-segments inferoseptally. 3. Flow quantification with reduced global [...] Jose Ortiz M.D. Narrative 03/08/2024 4:09 PM ASSISTANT CASE MANAGER EXAMINATION: MYOCARDIAL PET/CT PERFUSION IMAGING (STRESS/REST) DATE [...] was referred for PET MPI by his Teaching Aide (Dr. Merino). Evaluate for ischemia and/or microvascular [...] of any abnormal extracardiac tracer uptake. COMPARISON: AL MPI SPECT (December 2021): large and moderately severe ischemia involving the basal to mid lateral wall and more pronounced anterolaterally. Normal rest perfusion. Enlarged LV cavity with mild global hypokinesis. FINDINGS: There is a kbsli-lp-uuismevr size and mild infarct involving the rmfzy-mq-cym-segments inferoseptally associated with moderate severe theresa-infarct ischemia during pharmacologic stress. Gated post-stress images demonstrate marked left ventricular dilation and mild global hyopkinesis with severe hypo-to akinesis klplz-ax-dgi-segments inferoseptally and the left ventricular ejection fraction [...] was referred for PET MPI by his Teaching Aide (Dr. Merino). Evaluate for ischemia and/or microvascular [...] mild global hypokinesis. FINDINGS: There is a ownox-xv-qnwwdldq size and mild infarct involving the cbtix-ea-sjb-segments inferoseptally associated with moderate severe theresa-infarct ischemia during pharmacologic stress. Gated post-stress images demonstrate marked left ventricular dilation and mild global hyopkinesis with severe hypo-to akinesis qgime-sf-zln-segments inferoseptally and the left ventricular ejection fraction [...] multilevel spondylosis. IMPRESSION: 1. There is a grcdm-kk-rtoratso size and mild infarct involving the nbmmx-mg-obh-segments inferoseptally associated with moderate severe theresa-infarct ischemia during pharmacologic stress. 2. Marked left ventricular dilation and mild global hyopkinesis with severe hypo-to akinesis bzoeh-di-zah-segments inferoseptally. 3. Flow quantification with reduced global [...] IR Inject Abscess Catheter (03/08/2024 11:02 AM ASSISTANT CASE MANAGER) Anatomical Region Laterality Modality Body N/A Radio Fluoroscop y 03/08/2024 12:2 0 PM ASSISTANT CASE MANAGER Impressions 03/08/2024 12:20 PM ASSISTANT CASE MANAGER Improving and nearly resolved superficial collection without new fistula. Catheter was removed. Improving, but still present perinephric collection without new fistula. Catheter was kept in place. PLAN: Continue to monitor remaining catheter output as well as the patient's clinical condition. The catheter should not be flushed. The patient will follow-up with us in 2 weeks. If questions arise, please contact us by calling [phone]. Electronically signed by: Flori Strange PA-C Narrative 03/08/2024 12:20 PM ASSISTANT CASE MANAGER EXAMINATION: DRAINAGE CATHETER EVALUATION AND REMOVAL HISTORY: [...] required TECHNIQUE: Prior to beginning the procedure, [place] Protocol was used to confirm the patient's identity and planned procedure. Fluoroscopy time has been recorded in the electronic medical record. After obtaining a rubber turner image, the catheter was injected with dilute [...] required TECHNIQUE: Prior to beginning the procedure, [place] Protocol was used to confirm the patient's identity and planned procedure. Fluoroscopy time has been recorded in the electronic medical record. After obtaining a rubber turner image, the catheter was injected with dilute [...] questions arise, please contact us by calling [phone]. Electronically signed by: Flori Strange PA-C us Savanna Kwok MD IMG IR PROCEDURES Fin al Result * (ABNORMAL) eGFR (03/03/2024 9:40 AM ASSISTANT CASE MANAGER) eGFR 22(L) >=60 mL/min/1. 73 m2 Comment: [...] last reviewed 2020. Blood 03/03/2024 9:40 AM ASSISTANT CASE MANAGER 03/03/2024 12:52 PM ASSISTANT CASE MANAGER Matthew Marti MD LAB BLOOD ORDERABLES Final Result [facility] [place] [address] * (ABNORMAL) Differential, auto (03/03/2024 9:40 AM ASSISTANT CASE MANAGER) Neutrophil abs 6.0 1.5 - 6.5 K/cumm Imm gran abs 0.1 0.0 - 0.1 K/cumm [facility] Lymphocyte abs 0.3(L) 0.8 - 3.3 K/cumm [facility] Monocyte abs 0.4 0.2 - 0.8 K/cumm [facility] Eosinophil abs 0.0 0.0 - 0.5 K/cumm [facility] Basophil abs 0.0 0.0 - 0.1 K/cumm [facility] Neutrophil pct 89.0 % [facility] Comment: Interpretive Data Percent cell count reference ranges are not reported, since discordance with absolute values may lead to misinterpretation of CBC data. Current Interpretive Data was last revised on 2017. Imm gran pct 0.7 % [facility] Comment: Interpretive Data Percent cell count reference ranges are not reported, since discordance with absolute values may lead to misinterpretation of CBC data. Current Interpretive Data was last revised on 2017. Lymphocyte pct 3.7 % [facility] Comment: Interpretive Data Percent cell count reference ranges are not reported, since discordance with absolute values may lead to misinterpretation of CBC data. Current Interpretive Data was last revised on 2017. Monocyte pct 6.2 % [facility] Comment: Interpretive Data Percent cell count reference ranges are not reported, since discordance with absolute values may lead to misinterpretation of CBC data. Current Interpretive Data was last revised on 2017. Eosinophil pct 0.1 % [facility] Comment: Interpretive Data Percent cell count reference ranges are not reported, since discordance with absolute values may lead to misinterpretation of CBC data. Current Interpretive Data was last revised on 2017. Basophil pct 0.3 % [facility] Comment: Interpretive Data Percent cell count reference ranges are not reported, since discordance with absolute values may lead to misinterpretation of CBC data. Current Interpretive Data was last revised on 2017. Blood 03/03/2024 9:40 AM ASSISTANT CASE MANAGER 03/03/2024 12:40 PM ASSISTANT CASE MANAGER us Matthew Marti MD LAB BLOOD ORDERABLES Final Result [facility] [place] [address] * Tacrolimus level trough (03/03/2024 9:40 AM ASSISTANT CASE MANAGER) Tacrolimus trough 7.1 ng/mL Comment: Interpretive Data Testing performed by liquid chromatography-tandem mass spectrometry. Therapeutic concentrations vary depending on type of transplanted organ and time elapsed since transplant. Typical trough concentrations range from 5-15 ng/mL. This test was developed and its performance characteristics determined by the [facility] consistent with CLIA requirements. This test has not been cleared or approved by the US Food and Drug administration. Current interpretive data last reviewed 2019. Blood 03/03/2024 9:40 AM ASSISTANT CASE MANAGER 03/03/2024 12:40 PM ASSISTANT CASE MANAGER us Matthew Marti MD LAB BLOOD ORDERABLES Final Result Performing Organization Address [facility]/ZIP Co de Phone Number [facility] Department [place] [address] * (ABNORMAL) CBC with auto differential (03/03/2024 9:40 AM ASSISTANT CASE MANAGER) WBC 6.8 3.8 - 9.9 K/cumm Hgb 12.5(L) 13.0 - 17.5 g/dL [facility] Hct 37.1(L) 38.9 - 50.3 % [facility] Plt 166 150 - 400 K/cumm [facility] MPV 10.4 9.1 - 12.3 fL [facility] RBC 3.76(L) 4.30 - 5.80 M/cumm [facility] MCV 98.7(H) 81.3 - 96.4 fL [facility] MCH 33.2 27.1 - 33.3 pg [facility] MCHC 33.7 32.3 - 35.7 g/dL [facility] RDW CV 15.2(H) 11.1 - 14.9 % [facility] RDW SD 55.8(H) 35.7 - 48.1 fL [facility] NRBC abs 0.00 0.00 - 0.01 K/cumm [facility] Blood 03/03/2024 9:40 AM ASSISTANT CASE MANAGER 03/03/2024 12:40 PM ASSISTANT CASE MANAGER us Matthew Marti MD LAB BLOOD ORDERABLES Final Result [facility] Department [place] [address] * Magnesium (03/03/2024 9:40 AM ASSISTANT CASE MANAGER) Magnesium 1.7 1.4 - 2.5 mg/dL Blood 03/03/2024 9:40 AM ASSISTANT CASE MANAGER 03/03/2024 12:40 PM ASSISTANT CASE MANAGER us Matthew Marti MD LAB BLOOD ORDERABLES Final Result [facility] [place] [address] * (ABNORMAL) Renal function panel (03/03/2024 9:40 AM ASSISTANT CASE MANAGER) Pathologist [facility] Sodium 138 135 - 145 mmol/L Potassium, pl 5.3(H) 3.3 - 4.9 mmol/L [facility] Chloride 106 97 - 110 mmol/L [facility] CO2 22 22 - 32 mmol/L [facility] Anion gap 10 2 - 15 mmol/L [facility] BUN 42(H) 6 - 25 mg/dL [facility] Creatinine 3.02(H) 0.80 - 1.30 mg/dL [facility] Glucose 101 70 - 199 mg/dL [facility] Comment: Interpretive Data Fasting glucose >/= 126 [...] 2022. Calcium 9.7 8.5 - 10.3 mg/dL [facility] Phosphorus, pl 2.8 2.3 - 4.5 mg/dL [facility] Albumin 3.8 3.5 - 5.0 g/dL [facility] Blood 03/03/2024 9:40 AM ASSISTANT CASE MANAGER 03/03/2024 12:40 PM ASSISTANT CASE MANAGER Matthew Marti MD LAB BLOOD ORDERABLES Final Result Performing Organization Address City/[facility] Co de Phone Number [facility] [place] [address] * (ABNORMAL) eGFR (03/01/2024 8:00 AM ASSISTANT CASE MANAGER) Pathologist [facility] eGFR 23(L) >=60 mL/min/1. 73 m2 Comment: [...] last reviewed 2020. Blood 03/01/2024 8:00 AM ASSISTANT CASE MANAGER 03/01/2024 12:38 PM ASSISTANT CASE MANAGER Rosalie Velásquez NP LAB BLOOD ORDERABLES Final Result Performing Organization Address City/[facility] Co de Phone Number [facility] Department [place] [address] * (ABNORMAL) Differential, auto (03/01/2024 8:00 AM ASSISTANT CASE MANAGER) Pathologist [facility] Neutrophil abs 3.4 1.5 - 6.5 K/cumm Imm gran abs 0.0 0.0 - 0.1 K/cumm [facility] Lymphocyte abs 0.4(L) 0.8 - 3.3 K/cumm [facility] Monocyte abs 0.3 0.2 - 0.8 K/cumm [facility] Eosinophil abs 0.0 0.0 - 0.5 K/cumm [facility] Basophil abs 0.0 0.0 - 0.1 K/cumm [facility] Neutrophil pct 81.3 % [facility] Comment: Interpretive Data Percent cell count reference ranges are not reported, since discordance with absolute values may lead to misinterpretation of CBC data. Current Interpretive Data was last revised on 2017. Imm gran pct 1.0 % [facility] Comment: Interpretive Data Percent cell count reference ranges are not reported, since discordance with absolute values may lead to misinterpretation of CBC data. Current Interpretive Data was last revised on 2017. Lymphocyte pct 8.7 % [facility] Comment: Interpretive Data Percent cell count reference ranges are not reported, since discordance with absolute values may lead to misinterpretation of CBC data. Current Interpretive Data was last revised on 2017. Monocyte pct 7.0 % [facility] Comment: Interpretive Data Percent cell count reference ranges are not reported, since discordance with absolute values may lead to misinterpretation of CBC data. Current Interpretive Data was last revised on 2017. Eosinophil pct 1.0 % [facility] Comment: Interpretive Data Percent cell count reference ranges are not reported, since discordance with absolute values may lead to misinterpretation of CBC data. Current Interpretive Data was last revised on 2017. Basophil pct 1.0 % [facility] Comment: Interpretive Data Percent cell count reference ranges are not reported, since discordance with absolute values may lead to misinterpretation of CBC data. Current Interpretive Data was last revised on 2017. Blood 03/01/2024 8:00 AM ASSISTANT CASE MANAGER 03/01/2024 12:32 PM ASSISTANT CASE MANAGER us Rosalie Velásquez NP LAB BLOOD ORDERABLES Final Result [facility] [place] [address] * Tacrolimus level trough (03/01/2024 8:00 AM ASSISTANT CASE MANAGER) Tacrolimus trough 8.7 ng/mL Comment: Interpretive Data Testing performed by liquid chromatography-tandem mass spectrometry. Therapeutic concentrations vary depending on type of transplanted organ and time elapsed since transplant. Typical trough concentrations range from 5-15 ng/mL. This test was developed and its performance characteristics determined by the [facility] consistent with CLIA requirements. This test has not been cleared or approved by the US Food and Drug administration. Current interpretive data last reviewed 2019. Blood 03/01/2024 8:00 AM ASSISTANT CASE MANAGER 03/01/2024 12:32 PM ASSISTANT CASE MANAGER us Rosalie Velásquez NP LAB BLOOD ORDERABLES Final Result [facility] [place] [address] * (ABNORMAL) CBC with auto differential (03/01/2024 8:00 AM ASSISTANT CASE MANAGER) WBC 4.2 3.8 - 9.9 K/cumm Hgb 12.3(L) 13.0 - 17.5 g/dL [facility] Hct 36.5(L) 38.9 - 50.3 % [facility] Plt 151 150 - 400 K/cumm [facility] MPV 10.2 9.1 - 12.3 fL [facility] RBC 3.66(L) 4.30 - 5.80 M/cumm [facility] MCV 99.7(H) 81.3 - 96.4 fL [facility] MCH 33.6(H) 27.1 - 33.3 pg [facility] MCHC 33.7 32.3 - 35.7 g/dL [facility] RDW CV 15.7(H) 11.1 - 14.9 % [facility] RDW SD 58.0(H) 35.7 - 48.1 fL [facility] NRBC abs 0.00 0.00 - 0.01 K/cumm [facility] Blood 03/01/2024 8:00 AM ASSISTANT CASE MANAGER 03/01/2024 12:32 PM ASSISTANT CASE MANAGER Rosalie Velásquez CAPSULE FILLING MACHINE OPERATOR LAB BLOOD ORDERABLES Final Result [facility] [place] [address] * Magnesium (03/01/2024 8:00 AM ASSISTANT CASE MANAGER) Pathologist [facility] Magnesium 1.9 1.4 - 2.5 mg/dL Blood 03/01/2024 8:00 AM ASSISTANT CASE MANAGER 03/01/2024 12:31 PM ASSISTANT CASE MANAGER Rosalie Velásquez CAPSULE FILLING MACHINE OPERATOR LAB BLOOD ORDERABLES Final Result Performing Organization Address [facility] Co de Phone Number LIN[facility] Department [place] [address] * (ABNORMAL) Renal function panel (03/01/2024 8:00 AM ASSISTANT CASE MANAGER) [facility] Sodium 140 135 - 145 mmol/L Potassium, pl 5.4(H) 3.3 - 4.9 mmol/L [facility] Chloride 106 97 - 110 mmol/L [facility] CO2 22 22 - 32 mmol/L [facility] Anion gap 12 2 - 15 mmol/L [facility] BUN 39(H) 6 - 25 mg/dL [facility] Creatinine 2.94(H) 0.80 - 1.30 mg/dL [facility] Glucose 92 70 - 199 mg/dL [facility] Comment: Interpretive Data Fasting glucose >/= 126 [...] 2022. Calcium 10.2 8.5 - 10.3 mg/dL [facility] Phosphorus, pl 2.8 2.3 - 4.5 mg/dL [facility] Albumin 3.8 3.5 - 5.0 g/dL [facility] Blood 03/01/2024 8:00 AM ASSISTANT CASE MANAGER 03/01/2024 12:31 PM ASSISTANT CASE MANAGER Rosalie Velásquez NP LAB BLOOD ORDERABLES Final Result Performing Organization Address [facility] Co de Phone Number [facility] One [facility] [place] [address] * BK virus, DNA, quantitative Blood (02/26/2024 8:59 AM ASSISTANT CASE MANAGER) Pathologist [facility] BK Virus DNA, PCR Negative Negative IU/mL [facility] - 01 Comment: No BK DNA detected. The linear range of the assay is 22 - 100,000,000 IU/mL. Blood 02/26/2024 8:59 AM ASSISTANT CASE MANAGER 02/26/2024 Narrative [facility] - 02/29/2024 2:08 PM ASSISTANT CASE MANAGER Performed at: - [address] [id number] Director Of Research: Agustina Tyler MD, Phone: [phone] us Jack Morrison MD LAB MICROBIOLOGY - GENERAL O RDERABLES Final Result Performing Organization Address [facility] Co de Phone Number [facility] - 01 * Tacrolimus level trough (02/26/2024 8:59 AM ASSISTANT CASE MANAGER) Pathologist [facility] Tacrolimus ([id number]), Blood 8.4 2.0 - 20.0 ng/mL [facility] - 01 Comment: Trough (immediately following transplant) 15.0 Trough (steady state, 2 weeks or more after transplant): 3.0 - 8.0 Performed by LC-MS/MS technology. Blood 02/26/2024 8:59 AM ASSISTANT CASE MANAGER 02/26/2024 Narrative [facility] - 02/29/2024 2:08 PM ASSISTANT CASE MANAGER Test(s) [id number] (FK506), Blood was developed and its performance characteristics determined by [facility]. It has not been cleared or approved by the Food and Drug Administration. Performed at: - [facility] [id number] Director Of Research: Agustina Tyler MD, Phone: [phone] us Jack Morrison MD LAB BLOOD ORDERABLES Final R esult [facility] - * (ABNORMAL) CBC with auto differential (02/26/2024 8:59 AM ASSISTANT CASE MANAGER) WBC 3.6 3.4 - 10.8 x10E3/uL [facility] [...] [facility] - 01 Blood 02/26/2024 8:59 AM ASSISTANT CASE MANAGER 02/26/2024 Narrative [facility] - 02/27/2024 7:07 AM ASSISTANT CASE MANAGER Performed at: [address] [place], [place] [id number] Director Of Research: Prabhjot Trammell PhD, Phone: [phone] us Jack Morrison MD LAB BLOOD ORDERABLES Final R esult Performing Organization Address City/[facility]/ZIP Co de Phone Number [facility] * (ABNORMAL) Hepatic function panel (02/26/2024 8:59 AM ASSISTANT CASE MANAGER) Protein, sr 6.1 6.0 - 8.5 g/dL [facility] - 01 Bilirubin, Total 0.4 0.0 - 1.2 mg/dL [facility] - 01 Bilirubin, direct 0.17 0.00 - 0.40 mg/dL [facility] - 01 Alk phos 147(H) 44 - 121 IU/L [facility] - 01 AST 14 0 - 40 IU/L [facility] - 01 ALT 10 0 - 44 IU/L [facility] - 01 Blood 02/26/2024 8:59 AM ASSISTANT CASE MANAGER 02/26/2024 Narrative [facility] - 02/27/2024 7:07 AM ASSISTANT CASE MANAGER Performed at: [address] [place] [id number] Director Of Research: Prabhjot Trammell PhD, Phone: [phone] us Jack Morrison MD LAB BLOOD ORDERABLES Final R esult [facility] * (ABNORMAL) Renal function panel (02/26/2024 8:59 AM ASSISTANT CASE MANAGER) Glucose 99 70 - 99 mg/dL [facility] [...] [facility] - 01 Blood 02/26/2024 8:59 AM ASSISTANT CASE MANAGER 02/26/2024 Narrative [facility] - 02/27/2024 7:07 AM ASSISTANT CASE MANAGER Performed at: [address] [id number] Director Of Research: Prabhjot Trammell PhD, Phone: [phone] Jack Morrison MD LAB BLOOD ORDERABLES Final R esult [facility] - 01 * Lipid panel (02/26/2024 8:59 AM ASSISTANT CASE MANAGER) [facility] Cholesterol 121 100 - 199 mg/dL [facility] - 01 Triglycerides 104 0 - 149 mg/dL [facility] - 01 HDL Cholesterol 52 >39 mg/dL [facility] - 01 VLDL 19 5 - 40 mg/dL [facility] - 01 LDL, calculated 50 0 - 99 mg/dL [facility] - 01 Blood 02/26/2024 8:59 AM ASSISTANT CASE MANAGER 02/26/2024 Narrative [facility] - 02/27/2024 7:07 AM ASSISTANT CASE MANAGER Performed at: [facility] [id number] Director Of Research: Prabhjot Trammell PhD, Phone: [phone] us Jack Morrison MD LAB BLOOD ORDERABLES Final R esult Performing Organization Address City/[facility]/ZIP Co de Phone Number [facility] - 01 * POCT glucose (02/23/2024 11:43 AM ASSISTANT CASE MANAGER) Glucose, POC 105 70 - 199 mg/dL Blood 02/23/2024 11:4 3 AM ASSISTANT CASE MANAGER 02/23/2024 11:43 AM ASSISTANT CASE MANAGER us Renetta Jones MD PhD LAB POCT ORDERABLES - DEVICE Fi nal Result Performing Organization Address [facility] Co de Phone Number [facility] [place] [address] * POCT glucose (02/23/2024 8:21 AM ASSISTANT CASE MANAGER) Glucose, POC 106 70 - 199 mg/dL Blood 02/23/2024 8:21 AM ASSISTANT CASE MANAGER 02/23/2024 8:21 AM ASSISTANT CASE MANAGER us Renetta Jones MD PhD LAB POCT ORDERABLES - DEVICE Fi nal Result Performing Organization Address [facility] de Phone Number [facility] [place] [address] * (ABNORMAL) Potassium, whole blood (02/23/2024 6:38 AM ASSISTANT CASE MANAGER) Potassium, bld 5.3(H) 3.3 - 4.9 mmol/L Blood 02/23/2024 6:38 AM ASSISTANT CASE MANAGER 02/23/2024 6:55 AM ASSISTANT CASE MANAGER us Renetta Jones MD PhD LAB BLOOD ORDERABLES Final Resu lt Performing Organization Address City/[facility] Co de Phone Number [facility] [place] [address] * ECG 12 lead (02/23/2024 6:30 AM ASSISTANT CASE MANAGER) Ventricular Rate EKG/Min 57 BPM [facility] Atrial Rate 57 BPM [facility] AZ-Interval (MSEC) 246 ms [facility] QRS-Interval (MSEC) 142 ms [facility] QT-Interval (MSEC) 464 ms [facility] QTc 451 ms [facility] P [place] 65 degrees [facility] R [place] -9 degrees [facility] T [place] 20 degrees [facility] Diagnosis Sinus bradycardia with 1st degree A-V block Non-specific intra-ventricul ar conduction block Minimal voltage criteria for LVH, may be normal variant ( Vaibhav product ) Abnormal ECG When compared with ECG of 27-JAN-2024 15:35, Sinus rhythm has replaced Atrial fibrillation QT has shortened Confirmed by JENNIFER BYRD M.D ([id number]) on 02/23/2024 1:27:04 PM [facility] 02/23/2024 6:30 AM ASSISTANT CASE MANAGER 02/23/2024 1:27 PM ASSISTANT CASE MANAGER us Renetta Jones MD PhD ECG ORDERABLES Final Result [facility] * CT Abdomen Pelvis WO Contrast (02/23/2024 5:21 AM ASSISTANT CASE MANAGER) Anatomical Region Laterality Modality Body N/A Computed Tomogra phy 02/23/2024 7:47 AM ASSISTANT CASE MANAGER Impressions 02/23/2024 7:47 AM ASSISTANT CASE MANAGER 1. Interval placement of pigtail catheter within [...] Blake Bauer M.D. Narrative 02/23/2024 7:47 AM ASSISTANT CASE MANAGER EXAMINATION: Computed tomography of the abdomen and [...] this noncontrast study. Marked atrophy of the eagle kidneys. No hyperdense gallstones or biliary dilation. [...] this noncontrast study. Marked atrophy of the eagle kidneys. No hyperdense gallstones or biliary dilation. [...] edema Electronically signed by: Blake Bauer M.D. [facility] CT PROCEDURES Fin tx Result * (ABNORMAL) eGFR (02/23/2024 4:37 AM ASSISTANT CASE MANAGER) eGFR 20(L) >=60 mL/min/1. 73 m2 Comment: [...] last reviewed 2020. Blood 02/23/2024 4:37 AM ASSISTANT CASE MANAGER 02/23/2024 4:59 AM ASSISTANT CASE MANAGER Rhoda LEE LAB BLOOD ORDERABLES Final Result [facility] One [facility] [place] [address] * (ABNORMAL) Differential, auto (02/23/2024 4:37 AM ASSISTANT CASE MANAGER) Neutrophil abs 2.5 1.5 - 6.5 K/cumm Imm gran abs 0.0 0.0 - 0.1 K/cumm [facility] Lymphocyte abs 0.2(L) 0.8 - 3.3 K/cumm [facility] Monocyte abs 0.2 0.2 - 0.8 K/cumm [facility] Eosinophil abs 0.0 0.0 - 0.5 K/cumm [facility] Basophil abs 0.0 0.0 - 0.1 K/cumm [facility] Neutrophil pct 85.3 % [facility] Comment: Interpretive Data Percent cell count reference ranges are not reported, since discordance with absolute values may lead to misinterpretation of CBC data. Current Interpretive Data was last revised on 2017. Imm gran pct 0.7 % [facility] Comment: Interpretive Data Percent cell count reference ranges are not reported, since discordance with absolute values may lead to misinterpretation of CBC data. Current Interpretive Data was last revised on 2017. Lymphocyte pct 6.5 % [facility] Comment: Interpretive Data Percent cell count reference ranges are not reported, since discordance with absolute values may lead to misinterpretation of CBC data. Current Interpretive Data was last revised on 2017. Monocyte pct 6.1 % [facility] Comment: Interpretive Data Percent cell count reference ranges are not reported, since discordance with absolute values may lead to misinterpretation of CBC data. Current Interpretive Data was last revised on 2017. Eosinophil pct 0.7 % [facility] Comment: Interpretive Data Percent cell count reference ranges are not reported, since discordance with absolute values may lead to misinterpretation of CBC data. Current Interpretive Data was last revised on 2017. Basophil pct 0.7 % [facility] Comment: Interpretive Data Percent cell count reference ranges are not reported, since discordance with absolute values may lead to misinterpretation of CBC data. Current Interpretive Data was last revised on 2017. Blood 02/23/2024 4:37 AM ASSISTANT CASE MANAGER 02/23/2024 4:59 AM ASSISTANT CASE MANAGER Rhoda Flores [place] LAB BLOOD ORDERABLES Final Result Performing Organization Address [facility] de Phone Number [facility] [place] [address] * Tacrolimus level trough (02/23/2024 4:37 AM ASSISTANT CASE MANAGER) Pathologist [facility] Tacrolimus trough 9.1 ng/mL Comment: Interpretive Data Testing performed by liquid chromatography-tandem mass spectrometry. Therapeutic concentrations vary depending on type of transplanted organ and time elapsed since transplant. Typical trough concentrations range from 5-15 ng/mL. This test was developed and its performance characteristics determined by the [facility] consistent with CLIA requirements. This test has not been cleared or approved by the [place] Food and Drug administration. Current interpretive data last reviewed 2019. Blood 02/23/2024 4:37 AM ASSISTANT CASE MANAGER 02/23/2024 4:59 AM ASSISTANT CASE MANAGER Rhoda LEE LAB BLOOD ORDERABLES Final Result Performing Organization Address [facility] Co de Phone Number [facility] [place] [address] * (ABNORMAL) CBC with auto differential (02/23/2024 4:37 AM ASSISTANT CASE MANAGER) WBC 2.9(L) 3.8 - 9.9 K/cumm Hgb 10.4(L) 13.0 - 17.5 g/dL [facility] Hct 31.2(L) 38.9 - 50.3 % [facility] Plt 106(L) 150 - 400 K/cumm [facility] MPV 9.8 9.1 - 12.3 fL [facility] RBC 3.09(L) 4.30 - 5.80 M/cumm [facility] MCV 101.0(H) 81.3 - 96.4 fL [facility] MCH 33.7(H) 27.1 - 33.3 pg [facility] MCHC 33.3 32.3 - 35.7 g/dL [facility] RDW CV 16.7(H) 11.1 - 14.9 % [facility] RDW SD 61.7(H) 35.7 - 48.1 fL [facility] NRBC abs 0.00 0.00 - 0.01 K/cumm [facility] Blood 02/23/2024 4:37 AM ASSISTANT CASE MANAGER 02/23/2024 4:59 AM ASSISTANT CASE MANAGER Rhoda LEE LAB BLOOD ORDERABLES Final Result Performing Organization Address City/[facility] Co de Phone Number [facility] Department [place] [address] * Magnesium (02/23/2024 4:37 AM ASSISTANT CASE MANAGER) Magnesium 2.0 1.4 - 2.5 mg/dL Blood 02/23/2024 4:37 AM ASSISTANT CASE MANAGER 02/23/2024 4:59 AM ASSISTANT CASE MANAGER Rhoda LEE LAB BLOOD ORDERABLES Final Result Performing Organization Address City/[facility] Co de Phone Number [facility] [place] [address] * (ABNORMAL) Renal function panel (02/23/2024 4:37 AM ASSISTANT CASE MANAGER) Pathologist [facility] Sodium 141 135 - 145 mmol/L Potassium, pl 5.6(H) 3.3 - 4.9 mmol/L [facility] Chloride 108 97 - 110 mmol/L [facility] CO2 27 22 - 32 mmol/L [facility] Anion gap 6 2 - 15 mmol/L [facility] BUN 38(H) 6 - 25 mg/dL [facility] Creatinine 3.27(H) 0.80 - 1.30 mg/dL [facility] Glucose 86 70 - 199 mg/dL [facility] Comment: Interpretive Data Fasting glucose >/= 126 [...] 2022. Calcium 9.6 8.5 - 10.3 mg/dL [facility] Phosphorus, pl 4.2 2.3 - 4.5 mg/dL [facility] Albumin 3.7 3.5 - 5.0 g/dL [facility] Blood 02/23/2024 4:37 AM ASSISTANT CASE MANAGER 02/23/2024 4:59 AM ASSISTANT CASE MANAGER us Rhoda LEE LAB BLOOD ORDERABLES Final Result [facility] [place] [address] * POCT glucose (02/22/2024 9:35 PM ASSISTANT CASE MANAGER) Pathologist [facility] Glucose, POC 136 70 - 199 mg/dL Blood 02/22/2024 9:35 PM ASSISTANT CASE MANAGER 02/22/2024 9:35 PM ASSISTANT CASE MANAGER us Renetta Jones MD PhD LAB POCT ORDERABLES - DEVICE Fi nal Result Performing Organization Address [facility] Co de Phone Number [facility] [place] [address] * POCT glucose (02/22/2024 5:37 PM ASSISTANT CASE MANAGER) Glucose, POC 134 70 - 199 mg/dL Blood 02/22/2024 5:37 PM ASSISTANT CASE MANAGER 02/22/2024 5:37 PM ASSISTANT CASE MANAGER Renetta Jones MD PhD LAB POCT ORDERABLES - DEVICE Fi nal Result Performing Organization Address [facility] de Phone Number [facility] [place] [address] * Cell Differential, Body Fluid (02/22/2024 2:26 PM ASSISTANT CASE MANAGER) Total cells diffed 100 cells Comment: Interpretive [...] Peritoneal [facility] Fluid 02/22/2024 2:26 PM ASSISTANT CASE MANAGER 02/22/2024 2:38 PM ASSISTANT CASE MANAGER Harrison Taylor MD LAB BODY FLUIDS AND STOOLS OR DERABLES Final Result Performing Organization Address [facility] Co de Phone Number [facility] [place] [address] * Cell Differential, Body Fluid (02/22/2024 2:26 PM ASSISTANT CASE MANAGER) Total cells diffed 100 cells Comment: Interpretive [...] [facility] Specimen type, fld Peritoneal [facility] Fluid 02/22/2024 2:26 PM ASSISTANT CASE MANAGER 02/22/2024 2:38 PM ASSISTANT CASE MANAGER Harrison Taylor MD LAB BODY FLUIDS AND STOOLS OR DERABLES Final Result Performing Organization Address [facility] Co de Phone Number [facility] [place] [address] * (ABNORMAL) Cell count w/rflx diff, body fluid (02/22/2024 2:26 PM ASSISTANT CASE MANAGER) Specimen type, fld Peritoneal Color, fld [place] [facility] Clarity, fld Cloudy(A) Clear [facility] Nucleated cells, fld 83 /cumm [facility] Comment: Interpretive Data Unless otherwise specified, the reference range and other method performance specifications have not been established for CSF/Body Fluid tests. The test results should be integrated into the clinical context for interpretation. Current interpretive data was last revised on 2018. RBC, fld 21,315 /cumm [facility] Fluid 02/22/2024 2:26 PM ASSISTANT CASE MANAGER 02/22/2024 2:38 PM ASSISTANT CASE MANAGER Narrative [facility] - 02/22/2024 4:31 PM ASSISTANT CASE MANAGER RLQ drain #2 Harrison Taylor MD LAB BODY FLUIDS AND STOOLS OR DERABLES Final Result Performing Organization Address City/[facility]/ZIP Co de Phone Number [facility] [place] [address] * (ABNORMAL) Cell count w/rflx diff, body fluid (02/22/2024 2:26 PM ASSISTANT CASE MANAGER) Specimen type, fld Peritoneal Color, fld Red [facility] Clarity, fld Turbid(A) Clear [facility] Nucleated cells, fld 350 /cumm [facility] Comment: Interpretive Data Unless otherwise specified, the reference range and other method performance specifications have not been established for CSF/Body Fluid tests. The test results should be integrated into the clinical context for interpretation. Current interpretive data was last revised on 2018. RBC, fld 606,638 /cumm [facility] Fluid 02/22/2024 2:26 PM ASSISTANT CASE MANAGER 02/22/2024 2:38 PM ASSISTANT CASE MANAGER Narrative [facility] - 02/22/2024 4:31 PM ASSISTANT CASE MANAGER RLQ Harrison Taylor MD LAB BODY FLUIDS AND STOOLS OR DERABLES Final Result [facility] [place] [address] * Aerobic and anaerobic culture and gram stain Peritoneal fluid Abdominal, right lower quadrant (02/22/2024 2:26 PM ASSISTANT CASE MANAGER) Direct Specimen Exam Stain: Cytospin Gram stain shows: Rare polymorphonuclear leukocytes seen. No organisms seen. Report Final Report: No growth [facility] Peritoneal fluid (Abdominal, right lower quadrant) 02/22/2024 2:26 PM ASSISTANT CASE MANAGER 02/22/2024 3:42 PM ASSISTANT CASE MANAGER Narrative [facility] - 02/25/2024 10:47 AM ASSISTANT CASE MANAGER RLQ Drain #2 Testing performed by [facility] ([phone]) Specimens submitted from normally sterile body sites [...] OR DERABLES Final Result Performing Organization Address [facility] [place] [address] * Aerobic and anaerobic culture and gram stain Abscess Abdominal, right lower quadrant (02/22/2024 2:26 PM ASSISTANT CASE MANAGER) Direct Specimen Exam Stain: Rare polymorphonuclear leukocytes seen. No organisms seen. Report Final Report: No growth [facility] Abscess (Abdominal, right lower quadrant) 02/22/2024 2:26 PM ASSISTANT CASE MANAGER 02/22/2024 3:41 PM ASSISTANT CASE MANAGER Narrative [facility] - 02/25/2024 10:48 AM ASSISTANT CASE MANAGER Testing performed by [facility] ([phone]) Specimens submitted from normally sterile body sites [...] OR DERABLES Final Result Performing Organization Address [facility] de Phone Number [facility] [place] [address] * Creatinine, body fluid (02/22/2024 2:26 PM ASSISTANT CASE MANAGER) Specimen type, fld Peritoneal Creatinine, fld 3.60 mg/dL [facility] Comment: The above specimen type [...] Body Fluid Reference Intervals and/or Interpretative Information. [email or web address] Current Interpretive Data was last revised 2018. Fluid 02/22/2024 2:26 PM ASSISTANT CASE MANAGER 02/22/2024 2:38 PM ASSISTANT CASE MANAGER Narrative [facility] - 02/22/2024 3:21 PM ASSISTANT CASE MANAGER RLQ Harrison Taylor MD LAB BODY FLUIDS AND STOOLS OR DERABLES Final Result Performing Organization Address [facility] de Phone Number [facility] [place] [address] * Creatinine, body fluid (02/22/2024 2:19 PM ASSISTANT CASE MANAGER) Specimen type, fld Peritoneal Creatinine, fld 3.43 mg/dL [facility] Comment: The above specimen type [...] Body Fluid Reference Intervals and/or Interpretative Information. [email or web address] Current Interpretive Data was last revised 2018. Fluid 02/22/2024 2:19 PM ASSISTANT CASE MANAGER 02/22/2024 2:38 PM ASSISTANT CASE MANAGER Narrative [facility] - 02/22/2024 8:43 PM ASSISTANT CASE MANAGER RLQ Drain #2 us Harrison Taylor MD LAB BODY FLUIDS AND STOOLS OR DERABLES Final Result Performing Organization Address [facility] Co de Phone Number [facility] [place] [address] * POCT glucose (02/22/2024 1:48 PM ASSISTANT CASE MANAGER) Glucose, POC 81 70 - 199 mg/dL Blood 02/22/2024 1:48 PM ASSISTANT CASE MANAGER 02/22/2024 1:48 PM ASSISTANT CASE MANAGER us Renetta Jones MD PhD LAB POCT ORDERABLES - DEVICE Fi nal Result Performing Organization Address City/State/[facility] Co sd Phone Number [facility] [place] [address] * IR Fluid Drain Soft Tissue (02/22/2024 1:14 PM ASSISTANT CASE MANAGER) Anatomical Region Laterality Modality Body N/A X-Ray Angiograph y 02/22/2024 4:41 PM ASSISTANT CASE MANAGER Addenda Addendum by Harrison Taylor MD on 02/23/2024 1:55 PM ASSISTANT CASE MANAGER This addendum is being placed after cell [...] Harrison Taylor M.D. Impressions 02/22/2024 4:51 PM ASSISTANT CASE MANAGER Successful image guided right lower quadrant fluid [...] Harrison Taylor M.D. Narrative 02/22/2024 4:51 PM ASSISTANT CASE MANAGER EXAMINATION: PERCUTANEOUS DRAINAGE (STD) HISTORY/INDICATION: 63-year-old male [...] was obtained. Prior to beginning the procedure, [place] Protocol was used to confirm the patient's [...] coiled within the collection before dilating to 12-Bruneian. A 12-Bruneian cope loop catheter was then advanced over [...] coiled within the collection before dilating to 12-Bruneian. A 12-Bruneian Cobra catheter was then advanced over the [...] was obtained. Prior to beginning the procedure, [place] Protocol was used to confirm the patient's [...] coiled within the collection before dilating to 12-Bruneian. A 12-Bruneian cope loop catheter was then advanced over [...] coiled within the collection before dilating to 12-Bruneian. A 12-Bruneian Cobra catheter was then advanced over the [...] Cell Differential, Body Fluid (02/22/2024 12:50 PM ASSISTANT CASE MANAGER) Total cells diffed 100 cells Comment: Interpretive [...] [facility] Monocyte, fld 4 % [facility] Specimen type, fld Peritoneal [facility] Fluid 02/22/2024 12:5 0 PM ASSISTANT CASE MANAGER 02/22/2024 4:24 PM ASSISTANT CASE MANAGER us Renetta Jones MD PhD LAB BODY FLUIDS AND STOOLS THALIA ESPAÑA Final Result [facility] [place] [address] * (ABNORMAL) Cell count w/rflx diff, body fluid (02/22/2024 12:50 PM ASSISTANT CASE MANAGER) Specimen type, fld Peritoneal Color, fld [place] [facility] Clarity, fld Cloudy(A) Clear [facility] Nucleated cells, fld 44 /cumm [facility] Comment: Interpretive Data Unless otherwise specified, the reference range and other method performance specifications have not been established for CSF/Body Fluid tests. The test results should be integrated into the clinical context for interpretation. Current interpretive data was last revised on 2018. RBC, fld 2,832 /cumm [facility] Fluid 02/22/2024 12:5 0 PM ASSISTANT CASE MANAGER 02/22/2024 4:24 PM ASSISTANT CASE MANAGER Narrative [facility] - 02/22/2024 5:35 PM ASSISTANT CASE MANAGER RLQ drain 2 us Renetta Jones MD PhD LAB BODY FLUIDS AND STOOLS IVETTEE RABBÁRBARA Final Result Performing Organization Address [facility] Co de Phone Number [facility] [employer] [place], [place] [id number] * Creatinine, body fluid (02/22/2024 12:50 PM ASSISTANT CASE MANAGER) Specimen type, fld Unknown Creatinine, fld 3.51 mg/dL [facility] Comment: The above specimen type [...] 2018. Chapter 43, Body Fluids, p. 925 [employer] Test directory, Body Fluid Reference Intervals and/or Interpretative Information. [email or web address] Current Interpretive Data was last revised 2018. Fluid 02/22/2024 12:5 0 PM ASSISTANT CASE MANAGER 02/22/2024 4:23 PM ASSISTANT CASE MANAGER Narrative [facility] - 02/22/2024 6:58 PM ASSISTANT CASE MANAGER RLQ drain 1 us Renetta Jones MD PhD LAB BODY FLUIDS AND STOOLS ORDE RABBÁRBARA Final Result Performing Organization Address City/[facility]/ZIP Co de Phone Number [facility] [place] [address] * (ABNORMAL) Potassium, whole blood (02/22/2024 6:27 AM ASSISTANT CASE MANAGER) Potassium, bld 5.0(H) 3.3 - 4.9 mmol/L Comment:Reviewed. Blood 02/22/2024 6:27 AM ASSISTANT CASE MANAGER 02/22/2024 6:36 AM ASSISTANT CASE MANAGER us Vannessa Hein CAPSULE FILLING MACHINE OPERATOR LAB BLOOD ORDERABLES Fin al Result [facility] [place] [address] * POCT glucose (02/22/2024 6:27 AM ASSISTANT CASE MANAGER) Glucose, POC 92 70 - 199 mg/dL Blood 02/22/2024 6:27 AM ASSISTANT CASE MANAGER 02/22/2024 6:27 AM ASSISTANT CASE MANAGER us Renetta Jones MD PhD LAB POCT ORDERABLES - DEVICE Fi nal Result Performing Organization Address City/[facility]/ZIP Co de Phone Number [facility] [place] [address] * (ABNORMAL) eGFR (02/22/2024 4:38 AM ASSISTANT CASE MANAGER) eGFR 19(L) >=60 mL/min/1. 73 m2 Comment: [...] last reviewed 2020. Blood 02/22/2024 4:38 AM ASSISTANT CASE MANAGER 02/22/2024 5:26 AM ASSISTANT CASE MANAGER Rhoda LEE LAB BLOOD ORDERABLES Final Result [facility] [place] [address] * (ABNORMAL) Differential, auto (02/22/2024 4:38 AM ASSISTANT CASE MANAGER) Neutrophil abs 2.6 1.5 - 6.5 K/cumm Imm gran abs 0.0 0.0 - 0.1 K/cumm [facility] Lymphocyte abs 0.2(L) 0.8 - 3.3 K/cumm [facility] Monocyte abs 0.2 0.2 - 0.8 K/cumm [facility] Eosinophil abs 0.0 0.0 - 0.5 K/cumm [facility] Basophil abs 0.0 0.0 - 0.1 K/cumm [facility] Neutrophil pct 83.7 % [facility] Comment: Interpretive Data Percent cell count reference ranges are not reported, since discordance with absolute values may lead to misinterpretation of CBC data. Current Interpretive Data was last revised on 2017. Imm gran pct 0.6 % [facility] Comment: Interpretive Data Percent cell count reference ranges are not reported, since discordance with absolute values may lead to misinterpretation of CBC data. Current Interpretive Data was last revised on 2017. Lymphocyte pct 6.7 % [facility] Comment: Interpretive Data Percent cell count reference ranges are not reported, since discordance with absolute values may lead to misinterpretation of CBC data. Current Interpretive Data was last revised on 2017. Monocyte pct 6.7 % [facility] Comment: Interpretive Data Percent cell count reference ranges are not reported, since discordance with absolute values may lead to misinterpretation of CBC data. Current Interpretive Data was last revised on 2017. Eosinophil pct 1.3 % [facility] Comment: Interpretive Data Percent cell count reference ranges are not reported, since discordance with absolute values may lead to misinterpretation of CBC data. Current Interpretive Data was last revised on 2017. Basophil pct 1.0 % [facility] Comment: Interpretive Data Percent cell count reference ranges are not reported, since discordance with absolute values may lead to misinterpretation of CBC data. Current Interpretive Data was last revised on 2017. Blood 02/22/2024 4:38 AM ASSISTANT CASE MANAGER 02/22/2024 5:26 AM ASSISTANT CASE MANAGER Rhoda LEE LAB BLOOD ORDERABLES Final Result Performing Organization Address [facility] de Phone Number [facility] [place] [address] * Tacrolimus level trough (02/22/2024 4:38 AM ASSISTANT CASE MANAGER) Pathologist [facility] Tacrolimus trough 8.2 ng/mL Comment: Interpretive Data Testing performed by liquid chromatography-tandem mass spectrometry. Therapeutic concentrations vary depending on type of transplanted organ and time elapsed since transplant. Typical trough concentrations range from 5-15 ng/mL. This test was developed and its performance characteristics determined by the [facility] consistent with CLIA requirements. This test has not been cleared or approved by the [place] Food and Drug administration. Current interpretive data last reviewed 2019. Blood 02/22/2024 4:38 AM ASSISTANT CASE MANAGER 02/22/2024 5:26 AM ASSISTANT CASE MANAGER Rhoda LEE LAB BLOOD ORDERABLES Final Result Performing Organization Address [facility] Co de Phone Number [facility] [place] [address] * (ABNORMAL) CBC with auto differential (02/22/2024 4:38 AM ASSISTANT CASE MANAGER) Pathologist [facility] WBC 3.1(L) 3.8 - 9.9 K/cumm Hgb 10.8(L) 13.0 - 17.5 g/dL [facility] Hct 32.2(L) 38.9 - 50.3 % [facility] Plt 117(L) 150 - 400 K/cumm [facility] MPV 10.3 9.1 - 12.3 fL [facility] RBC 3.23(L) 4.30 - 5.80 M/cumm [facility] MCV 99.7(H) 81.3 - 96.4 fL [facility] MCH 33.4(H) 27.1 - 33.3 pg [facility] MCHC 33.5 32.3 - 35.7 g/dL [facility] RDW CV 16.9(H) 11.1 - 14.9 % [facility] RDW SD 62.2(H) 35.7 - 48.1 fL [facility] NRBC abs 0.00 0.00 - 0.01 K/cumm [facility] Blood 02/22/2024 4:38 AM ASSISTANT CASE MANAGER 02/22/2024 5:26 AM ASSISTANT CASE MANAGER Rhoda LEE LAB BLOOD ORDERABLES Final Result Performing Organization Address City/[facility]/ZIP Co de Phone Number [facility] [place] [address] * Magnesium (02/22/2024 4:38 AM ASSISTANT CASE MANAGER) [facility] Magnesium 1.9 1.4 - 2.5 mg/dL Blood 02/22/2024 4:38 AM ASSISTANT CASE MANAGER 02/22/2024 5:26 AM ASSISTANT CASE MANAGER Rhoda LEE LAB BLOOD ORDERABLES Final Result Performing Organization Address [facility] Co de Phone Number [facility] [place] [address] * (ABNORMAL) Renal function panel (02/22/2024 4:38 AM ASSISTANT CASE MANAGER) Sodium 140 135 - 145 mmol/L Potassium, pl 5.2(H) 3.3 - 4.9 mmol/L [facility] Chloride 107 97 - 110 mmol/L [facility] CO2 23 22 - 32 mmol/L [facility] Anion gap 10 2 - 15 mmol/L [facility] BUN 46(H) 6 - 25 mg/dL [facility] Creatinine 3.44(H) 0.80 - 1.30 mg/dL [facility] Glucose 94 70 - 199 mg/dL [facility] Comment: Interpretive Data Fasting glucose >/= 126 [...] 2022. Calcium 9.5 8.5 - 10.3 mg/dL [facility] Phosphorus, pl 4.5 2.3 - 4.5 mg/dL [facility] Albumin 3.6 3.5 - 5.0 g/dL [facility] Blood 02/22/2024 4:38 AM ASSISTANT CASE MANAGER 02/22/2024 5:26 AM ASSISTANT CASE MANAGER us Rhoda LEE LAB BLOOD ORDERABLES Final Result [facility] [place] [address] * POCT glucose (02/21/2024 8:49 PM ASSISTANT CASE MANAGER) Glucose, POC 107 70 - 199 mg/dL Blood 02/21/2024 8:49 PM ASSISTANT CASE MANAGER 02/21/2024 8:49 PM ASSISTANT CASE MANAGER us Renetta Jones MD PhD LAB POCT ORDERABLES - DEVICE Fi nal Result Performing Organization Address City/[facility] Co de Phone Number [facility] [place] [address] * POCT glucose (02/21/2024 5:26 PM ASSISTANT CASE MANAGER) Glucose, POC 108 70 - 199 mg/dL Blood 02/21/2024 5:26 PM ASSISTANT CASE MANAGER 02/21/2024 5:26 PM ASSISTANT CASE MANAGER Renetta Jones MD PhD LAB POCT ORDERABLES - DEVICE Fi nal Result Performing Organization Address [facility] Co de Phone Number [facility] [place] [address] * POCT glucose (02/21/2024 2:08 PM ASSISTANT CASE MANAGER) Pathologist [facility] Glucose, POC 147 70 - 199 mg/dL Blood 02/21/2024 2:08 PM ASSISTANT CASE MANAGER 02/21/2024 2:08 PM ASSISTANT CASE MANAGER Renetta Jones MD PhD LAB POCT ORDERABLES - DEVICE Fi nal Result Performing Organization Address [facility] Co de Phone Number [facility] [place] [address] * (ABNORMAL) eGFR (02/21/2024 2:06 PM ASSISTANT CASE MANAGER) eGFR 20(L) >=60 mL/min/1. 73 m2 Comment: [...] last reviewed 2020. Blood 02/21/2024 2:06 PM ASSISTANT CASE MANAGER 02/21/2024 2:24 PM ASSISTANT CASE MANAGER us Rhoda LEE LAB BLOOD ORDERABLES Final Result [facility] [place] [address] * (ABNORMAL) Differential, auto (02/21/2024 2:06 PM ASSISTANT CASE MANAGER) Neutrophil abs 3.3 1.5 - 6.5 K/cumm Imm gran abs 0.0 0.0 - 0.1 K/cumm [facility] Lymphocyte abs 0.2(L) 0.8 - 3.3 K/cumm [facility] Monocyte abs 0.2 0.2 - 0.8 K/cumm [facility] Eosinophil abs 0.0 0.0 - 0.5 K/cumm [facility] Basophil abs 0.0 0.0 - 0.1 K/cumm [facility] Neutrophil pct 86.3 % [facility] Comment: Interpretive Data Percent cell count reference ranges are not reported, since discordance with absolute values may lead to misinterpretation of CBC data. Current Interpretive Data was last revised on 2017. Imm gran pct 0.8 % [facility] Comment: Interpretive Data Percent cell count reference ranges are not reported, since discordance with absolute values may lead to misinterpretation of CBC data. Current Interpretive Data was last revised on 2017. Lymphocyte pct 4.3 % [facility] Comment: Interpretive Data Percent cell count reference ranges are not reported, since discordance with absolute values may lead to misinterpretation of CBC data. Current Interpretive Data was last revised on 2017. Monocyte pct 6.4 % [facility] Comment: Interpretive Data Percent cell count reference ranges are not reported, since discordance with absolute values may lead to misinterpretation of CBC data. Current Interpretive Data was last revised on 2017. Eosinophil pct 1.1 % [facility] Comment: Interpretive Data Percent cell count reference ranges are not reported, since discordance with absolute values may lead to misinterpretation of CBC data. Current Interpretive Data was last revised on 2017. Basophil pct 1.1 % [facility] Comment: Interpretive Data Percent cell count reference ranges are not reported, since discordance with absolute values may lead to misinterpretation of CBC data. Current Interpretive Data was last revised on 2017. Blood 02/21/2024 2:06 PM ASSISTANT CASE MANAGER 02/21/2024 2:24 PM ASSISTANT CASE MANAGER Rhoda LEE LAB BLOOD ORDERABLES Final Result [facility] [place] [address] * (ABNORMAL) CBC with auto differential (02/21/2024 2:06 PM ASSISTANT CASE MANAGER) WBC 3.8 3.8 - 9.9 K/cumm Hgb 10.9(L) 13.0 - 17.5 g/dL [facility] Hct 32.3(L) 38.9 - 50.3 % [facility] Plt 123(L) 150 - 400 K/cumm [facility] MPV 10.0 9.1 - 12.3 fL [facility] RBC 3.26(L) 4.30 - 5.80 M/cumm [facility] MCV 99.1(H) 81.3 - 96.4 fL [facility] MCH 33.4(H) 27.1 - 33.3 pg [facility] MCHC 33.7 32.3 - 35.7 g/dL [facility] RDW CV 17.0(H) 11.1 - 14.9 % [facility] RDW SD 61.9(H) 35.7 - 48.1 fL [facility] NRBC abs 0.00 0.00 - 0.01 K/cumm [facility] Blood 02/21/2024 2:06 PM ASSISTANT CASE MANAGER 02/21/2024 2:24 PM ASSISTANT CASE MANAGER Rhoda LEE LAB BLOOD ORDERABLES Final Result Performing Organization Address [facility] de Phone Number [facility] [place] [address] * Protime-INR (02/21/2024 2:06 PM ASSISTANT CASE MANAGER) PT 12.0 9.7 - 13.0 sec INR 1.11 0.90 - 1.20 [facility] Comment: Interpretive data Oral anticoagulant therapeutic ranges: Venous thromboembolism prophylaxis or treatment: 2.0-3.0 CARDIOLOGY Standard range: 2.0-3.0 High-intensity range: 2.5-3.5 Refer to indication-specific guidelines for appropriate target ranges for prosthetic heart valve replacement. Current interpretive data was last revised on 2019. Blood 02/21/2024 2:06 PM ASSISTANT CASE MANAGER 02/21/2024 2:24 PM ASSISTANT CASE MANAGER Rhoda LEE LAB BLOOD ORDERABLES Final Result Performing Organization Address [facility] [place] [address] * Magnesium (02/21/2024 2:06 PM ASSISTANT CASE MANAGER) Magnesium 1.9 1.4 - 2.5 mg/dL Blood 02/21/2024 2:06 PM ASSISTANT CASE MANAGER 02/21/2024 2:24 PM ASSISTANT CASE MANAGER Rhoda LEE LAB BLOOD ORDERABLES Final Result Performing Organization Address [facility] de Phone Number [facility] [place] [address] * (ABNORMAL) Renal function panel (02/21/2024 2:06 PM ASSISTANT CASE MANAGER) Sodium 140 135 - 145 mmol/L Potassium, pl 4.9 3.3 - 4.9 mmol/L [facility] Chloride 107 97 - 110 mmol/L [facility] CO2 23 22 - 32 mmol/L [facility] Anion gap 10 2 - 15 mmol/L [facility] BUN 45(H) 6 - 25 mg/dL [facility] Creatinine 3.25(H) 0.80 - 1.30 mg/dL [facility] Glucose 145 70 - 199 mg/dL [facility] Comment: Interpretive Data Fasting glucose >/= 126 [...] 2022. Calcium 9.4 8.5 - 10.3 mg/dL [facility] Phosphorus, pl 4.2 2.3 - 4.5 mg/dL [facility] Albumin 3.7 3.5 - 5.0 g/dL [facility] Blood 02/21/2024 2:06 PM ASSISTANT CASE MANAGER 02/21/2024 2:24 PM ASSISTANT CASE MANAGER us Rhoda LEE LAB BLOOD ORDERABLES Final Result [facility] [place] [address] * ECG 12 lead (02/17/2024 4:29 PM ASSISTANT CASE MANAGER) us Marian Merino MD ECG ORDERABLES Edited Res ult - Final * CT Abdomen Pelvis WO Contrast (02/17/2024 11:48 AM ASSISTANT CASE MANAGER) Anatomical Region Laterality Modality Body N/A Computed Tomogra phy 02/17/2024 12:1 1 PM ASSISTANT CASE MANAGER Impressions 02/17/2024 12:37 PM ASSISTANT CASE MANAGER 1. Postsurgical changes of prior right lower [...] Kathy Turpin M.D. Narrative 02/17/2024 12:37 PM ASSISTANT CASE MANAGER EXAMINATION: Computed tomography of the abdomen and [...] in the urinary bladder without hydronephrosis. 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 73 m2 Comment: [...] reviewed 2020. Blood 02/17/2024 10:2 5 AM ASSISTANT CASE MANAGER 02/17/2024 10:57 AM ASSISTANT CASE MANAGER us Jack Morrison MD LAB BLOOD ORDERABLES Final R esult [facility] [place] [address] * (ABNORMAL) Differential, auto (02/17/2024 10:25 AM ASSISTANT CASE MANAGER) Neutrophil abs 3.9 1.5 - 6.5 K/cumm Imm gran abs 0.0 0.0 - 0.1 K/cumm [facility] Lymphocyte abs 0.2(L) 0.8 - 3.3 K/cumm [facility] Monocyte abs 0.2 0.2 - 0.8 K/cumm [facility] Eosinophil abs 0.1 0.0 - 0.5 K/cumm [facility] Basophil abs 0.1 0.0 - 0.1 K/cumm [facility] Neutrophil pct 86.9 % [facility] Comment: Interpretive Data Percent cell count reference ranges are not reported, since discordance with absolute values may lead to misinterpretation of CBC data. Current Interpretive Data was last revised on 2017. Imm gran pct 0.7 % [facility] Comment: Interpretive Data Percent cell count reference ranges are not reported, since discordance with absolute values may lead to misinterpretation of CBC data. Current Interpretive Data was last revised on 2017. Lymphocyte pct 3.8 % [facility] Comment: Interpretive Data Percent cell count reference ranges are not reported, since discordance with absolute values may lead to misinterpretation of CBC data. Current Interpretive Data was last revised on 2017. Monocyte pct 5.1 % [facility] Comment: Interpretive Data Percent cell count reference ranges are not reported, since discordance with absolute values may lead to misinterpretation of CBC data. Current Interpretive Data was last revised on 2017. Eosinophil pct 2.2 % [facility] Comment: Interpretive Data Percent cell count reference ranges are not reported, since discordance with absolute values may lead to misinterpretation of CBC data. Current Interpretive Data was last revised on 2017. Basophil pct 1.3 % [facility] Comment: Interpretive Data Percent cell count reference ranges are not reported, since discordance with absolute values may lead to misinterpretation of CBC data. Current Interpretive Data was last revised on 2017. Blood 02/17/2024 10:2 5 AM ASSISTANT CASE MANAGER 02/17/2024 10:57 AM ASSISTANT CASE MANAGER us Jack Morrison MD LAB BLOOD ORDERABLES Final R esult Performing Organization Address [facility] de Phone Number [facility] Department [place] [address] * (ABNORMAL) CBC with auto differential (02/17/2024 10:25 AM ASSISTANT CASE MANAGER) Pathologist [facility] WBC 4.5 3.8 - 9.9 K/cumm Hgb 11.4(L) 13.0 - 17.5 g/dL [facility] Hct 34.8(L) 38.9 - 50.3 % [facility] Plt 144(L) 150 - 400 K/cumm [facility] MPV 10.3 9.1 - 12.3 fL [facility] RBC 3.43(L) 4.30 - 5.80 M/cumm [facility] MCV 101.5(H) 81.3 - 96.4 fL [facility] MCH 33.2 27.1 - 33.3 pg [facility] MCHC 32.8 32.3 - 35.7 g/dL [facility] RDW CV 17.3(H) 11.1 - 14.9 % [facility] RDW SD 64.6(H) 35.7 - 48.1 fL [facility] NRBC abs 0.00 0.00 - 0.01 K/cumm [facility] Blood 02/17/2024 10:2 5 AM ASSISTANT CASE MANAGER 02/17/2024 10:57 AM ASSISTANT CASE MANAGER Jack Morrison MD LAB BLOOD ORDERABLES Final R esult Performing Organization Address [facility] Co de Phone Number [facility] [place] [address] * Tacrolimus level random (02/17/2024 10:25 AM ASSISTANT CASE MANAGER) Pathologist [facility] Tacrolimus random 2.4 ng/mL Comment: Interpretive Data Testing performed by liquid chromatography-tandem mass spectrometry. Therapeutic concentrations vary depending on type of transplanted organ and time elapsed since transplant. Typical trough concentrations range from 5-15 ng/mL. This test was developed and its performance characteristics determined by the [facility] consistent with CLIA requirements. This test has not been cleared or approved by the [place] Food and Drug administration. Current interpretive data last reviewed 2019. Blood 02/17/2024 10:2 5 AM ASSISTANT CASE MANAGER 02/17/2024 10:57 AM ASSISTANT CASE MANAGER Jack Morrison MD LAB BLOOD ORDERABLES Final R esult Performing Organization Address [facility] de Phone Number [facility] [place] [address] * Hepatitis B (HBV) DNA PCR, quantitative Blood (02/17/2024 10:25 AM ASSISTANT CASE MANAGER) [facility] HBV DNA Result Not Detected [facility] Comment: The quantifiable range of this assay is 10 IU/mL to 1,000,000,000 IU/mL (1.00 log IU/mL to 9.00 log IU/mL). Testing was performed by the WALDEMAR 6800 HBV Test version 2.0 ([employer] Testing performed at [facility] Current Interpretive Data was last revised on 2020. Blood 02/17/2024 10:2 5 AM ASSISTANT CASE MANAGER 02/17/2024 11:20 AM ASSISTANT CASE MANAGER Result [facility] Jack Morrison MD LAB MICROBIOLOGY - GENERAL O RDERABLES Final Result Performing Organization Address [facility] de Phone Number [facility] [place] [address] [facility] * HIV-1 RNA PCR, quantitative Blood (02/17/2024 10:25 AM ASSISTANT CASE MANAGER) [facility] HIV-1 RNA Not Detected [facility] Comment: The quantifiable range of this assay is 20 copies/mL to 10,000,000 copies/mL (1.30 log copies/mL to 7.00 log copies/mL). Testing was performed by the WALDEMAR 6800 HIV-1 Test([employer] Testing performed at [facility] Current Interpretive Data was last revised on 2020. Blood 02/17/2024 10:2 5 AM ASSISTANT CASE MANAGER 02/17/2024 11:20 AM ASSISTANT CASE MANAGER Jack Morrison MD LAB MICROBIOLOGY - GENERAL O RDERABLES Final Result Performing Organization Address [facility] de Phone Number [facility] [place] [address] [facility] * Hepatitis C (HCV) RNA PCR, quantitative Blood (02/17/2024 10:25 AM ASSISTANT CASE MANAGER) Pathologist [facility] HCV RNA result Not Detected [facility] Comment: The quantifiable range of this assay is 15 IU/mL to 100,000,000 IU/mL (1.18 log IU/mL to 8.00 log IU/mL). Testing was performed by the WALDEMAR 6800 HCV Test ([employer] Testing performed at [facility] Current Interpretive Data was last revised on 2020 Blood 02/17/2024 10:2 5 AM ASSISTANT CASE MANAGER 02/17/2024 11:20 AM ASSISTANT CASE MANAGER Result [facility] Jack Morrison MD LAB MICROBIOLOGY - GENERAL O RDERABLES Final Result Performing Organization Address [facility] Co de Phone Number [facility] [place] [address] [facility] * Magnesium (02/17/2024 10:25 AM ASSISTANT CASE MANAGER) Pathologist [facility] Magnesium 1.7 1.4 - 2.5 mg/dL Blood 02/17/2024 10:2 5 AM ASSISTANT CASE MANAGER 02/17/2024 10:57 AM ASSISTANT CASE MANAGER Result [facility] Jack Morrison MD LAB BLOOD ORDERABLES Final R esult Performing Organization Address [facility] Co de Phone Number [facility] [place] [address] * (ABNORMAL) Renal function panel (02/17/2024 10:25 AM ASSISTANT CASE MANAGER) Sodium 142 135 - 145 mmol/L Potassium, pl 5.0(H) 3.3 - 4.9 mmol/L [facility] Chloride 107 97 - 110 mmol/L [facility] CO2 21(L) 22 - 32 mmol/L [facility] Anion gap 14 2 - 15 mmol/L [facility] BUN 48(H) 6 - 25 mg/dL [facility] Creatinine 2.98(H) 0.80 - 1.30 mg/dL [facility] Glucose 79 70 - 199 mg/dL [facility] Comment: Interpretive Data Fasting glucose >/= 126 [...] 2022. Calcium 10.0 8.5 - 10.3 mg/dL [facility] Phosphorus, pl 3.2 2.3 - 4.5 mg/dL [facility] Albumin 3.8 3.5 - 5.0 g/dL [facility] Blood 02/17/2024 10:2 5 AM ASSISTANT CASE MANAGER 02/17/2024 10:57 AM ASSISTANT CASE MANAGER us Jack Morrison MD LAB BLOOD ORDERABLES Final R esult [facility] [place] [address] * (ABNORMAL) eGFR (02/11/2024 9:00 AM ASSISTANT CASE MANAGER) eGFR 19(L) >=60 mL/min/1. 73 m2 Comment: [...] last reviewed 2020. Blood 02/11/2024 9:00 AM ASSISTANT CASE MANAGER 02/11/2024 11:51 AM ASSISTANT CASE MANAGER Rosalie Velásquez NP LAB BLOOD ORDERABLES Final Result [facility] [place] [address] * (ABNORMAL) Differential, auto (02/11/2024 9:00 AM ASSISTANT CASE MANAGER) Neutrophil abs 4.6 1.5 - 6.5 K/cumm Imm gran abs 0.0 0.0 - 0.1 K/cumm [facility] Lymphocyte abs 0.2(L) 0.8 - 3.3 K/cumm [facility] Monocyte abs 0.2 0.2 - 0.8 K/cumm [facility] Eosinophil abs 0.1 0.0 - 0.5 K/cumm [facility] Basophil abs 0.1 0.0 - 0.1 K/cumm [facility] Neutrophil pct 89.6 % [facility] Comment: Interpretive Data Percent cell count reference ranges are not reported, since discordance with absolute values may lead to misinterpretation of CBC data. Current Interpretive Data was last revised on 2017. Imm gran pct 0.6 % [facility] Comment: Interpretive Data Percent cell count reference ranges are not reported, since discordance with absolute values may lead to misinterpretation of CBC data. Current Interpretive Data was last revised on 2017. Lymphocyte pct 3.3 % [facility] Comment: Interpretive Data Percent cell count reference ranges are not reported, since discordance with absolute values may lead to misinterpretation of CBC data. Current Interpretive Data was last revised on 2017. Monocyte pct 3.9 % [facility] Comment: Interpretive Data Percent cell count reference ranges are not reported, since discordance with absolute values may lead to misinterpretation of CBC data. Current Interpretive Data was last revised on 2017. Eosinophil pct 1.6 % [facility] Comment: Interpretive Data Percent cell count reference ranges are not reported, since discordance with absolute values may lead to misinterpretation of CBC data. Current Interpretive Data was last revised on 2017. Basophil pct 1.0 % [facility] Comment: Interpretive Data Percent cell count reference ranges are not reported, since discordance with absolute values may lead to misinterpretation of CBC data. Current Interpretive Data was last revised on 2017. Blood 02/11/2024 9:00 AM ASSISTANT CASE MANAGER 02/11/2024 11:48 AM ASSISTANT CASE MANAGER Rosalie Velásquez NP LAB BLOOD ORDERABLES Final Result [facility] [place] [address] * Tacrolimus level trough (02/11/2024 9:00 AM ASSISTANT CASE MANAGER) Pathologist [facility] Tacrolimus trough 7.8 ng/mL Comment: Interpretive Data Testing performed by liquid chromatography-tandem mass spectrometry. Therapeutic concentrations vary depending on type of transplanted organ and time elapsed since transplant. Typical trough concentrations range from 5-15 ng/mL. This test was developed and its performance characteristics determined by the [facility] consistent with CLIA requirements. This test has not been cleared or approved by the [place] Food and Drug administration. Current interpretive data last reviewed 2019. Blood 02/11/2024 9:00 AM ASSISTANT CASE MANAGER 02/11/2024 11:48 AM ASSISTANT CASE MANAGER us Rosalie Velásquez CAPSULE FILLING MACHINE OPERATOR LAB BLOOD ORDERABLES Final Result [facility] [place] [address] * (ABNORMAL) CBC with auto differential (02/11/2024 9:00 AM ASSISTANT CASE MANAGER) WBC 5.1 3.8 - 9.9 K/cumm Hgb 10.0(L) 13.0 - 17.5 g/dL [facility] Hct 30.9(L) 38.9 - 50.3 % [facility] Plt 168 150 - 400 K/cumm [facility] MPV 9.9 9.1 - 12.3 fL [facility] RBC 2.94(L) 4.30 - 5.80 M/cumm [facility] MCV 105.1(H) 81.3 - 96.4 fL [facility] MCH 34.0(H) 27.1 - 33.3 pg [facility] MCHC 32.4 32.3 - 35.7 g/dL [facility] RDW CV 18.3(H) 11.1 - 14.9 % [facility] RDW SD 70.2(H) 35.7 - 48.1 fL [facility] NRBC abs 0.00 0.00 - 0.01 K/cumm [facility] Blood 02/11/2024 9:00 AM ASSISTANT CASE MANAGER 02/11/2024 11:48 AM ASSISTANT CASE MANAGER us Rosalie Velásquez CAPSULE FILLING MACHINE OPERATOR LAB BLOOD ORDERABLES Final Result [facility] Department [place] [address] * Magnesium (02/11/2024 9:00 AM ASSISTANT CASE MANAGER) Pathologist [facility] Magnesium 1.9 1.4 - 2.5 mg/dL Blood 02/11/2024 9:00 AM ASSISTANT CASE MANAGER 02/11/2024 11:48 AM ASSISTANT CASE MANAGER us Rosalie Velásquez CAPSULE FILLING MACHINE OPERATOR LAB BLOOD ORDERABLES Final Result [facility] [place] [address] * (ABNORMAL) Renal function panel (02/11/2024 9:00 AM ASSISTANT CASE MANAGER) Pathologist [facility] Sodium 141 135 - 145 mmol/L Potassium, pl 4.9 3.3 - 4.9 mmol/L [facility] Chloride 105 97 - 110 mmol/L [facility] CO2 25 22 - 32 mmol/L [facility] Anion gap 11 2 - 15 mmol/L [facility] BUN 61(H) 6 - 25 mg/dL [facility] Creatinine 3.49(H) 0.80 - 1.30 mg/dL [facility] Glucose 103 70 - 199 mg/dL [facility] Comment: Interpretive Data Fasting glucose >/= 126 [...] 2022. Calcium 9.8 8.5 - 10.3 mg/dL [facility] Phosphorus, pl 4.6(H) 2.3 - 4.5 mg/dL [facility] Albumin 3.7 3.5 - 5.0 g/dL [facility] Blood 02/11/2024 9:00 AM ASSISTANT CASE MANAGER 02/11/2024 11:48 AM ASSISTANT CASE MANAGER Rosalie Velásquez CAPSULE FILLING MACHINE OPERATOR LAB BLOOD ORDERABLES Final Result [facility] [place] [address] * CT Abdomen Pelvis WO Contrast (02/09/2024 3:42 PM ASSISTANT CASE MANAGER) Anatomical Region Laterality Modality Body N/A Computed Tomogra phy 02/09/2024 4:37 PM ASSISTANT CASE MANAGER Impressions 02/09/2024 4:44 PM ASSISTANT CASE MANAGER Postsurgical changes of right iliac fossa kidney [...] Mohsen Vallejo M.D. Narrative 02/09/2024 4:44 PM ASSISTANT CASE MANAGER EXAMINATION: Computed tomography of the abdomen and [...] ductal dilatation. Normal spleen, adrenals, pancreas. 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 Postsurgical changes of right iliac fossa [...] ductal dilatation. Normal spleen, adrenals, pancreas. 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 Postsurgical changes of right iliac fossa [...] * Creatinine, body fluid (02/09/2024 3:29 PM ASSISTANT CASE MANAGER) Specimen type, fld Peritoneal Creatinine, fld 4.16 [...] 2018. Chapter 43, Body Fluids, p. 925 [employer] Test directory, Body Fluid Reference Intervals and/or Interpretative Information. [email or web address] Current Interpretive Data was last revised 2018. Fluid 02/09/2024 3:29 PM ASSISTANT CASE MANAGER 02/09/2024 6:15 PM ASSISTANT CASE MANAGER Vikki Nowak CAPSULE FILLING MACHINE OPERATOR LAB BODY FLUIDS AND STOOLS OR DERABLES Final Result [facility] [place] [address] * (ABNORMAL) eGFR (02/09/2024 9:00 AM ASSISTANT CASE MANAGER) eGFR 16(L) >=60 mL/min/1. 73 m2 Comment: [...] last reviewed 2020. Blood 02/09/2024 9:00 AM ASSISTANT CASE MANAGER 02/09/2024 12:18 PM ASSISTANT CASE MANAGER us [employer] Unknown LAB BLOOD ORDERABLES Final Res ult [facility] [place] [address] * (ABNORMAL) Differential, auto (02/09/2024 9:00 AM ASSISTANT CASE MANAGER) Neutrophil abs 4.5 1.5 - 6.5 K/cumm Imm gran abs 0.0 0.0 - 0.1 K/cumm [facility] Lymphocyte abs 0.1(L) 0.8 - 3.3 K/cumm [facility] Monocyte abs 0.2 0.2 - 0.8 K/cumm [facility] Eosinophil abs 0.1 0.0 - 0.5 K/cumm [facility] Basophil abs 0.1 0.0 - 0.1 K/cumm [facility] Neutrophil pct 89.8 % [facility] Comment: Interpretive Data Percent cell count reference ranges are not reported, since discordance with absolute values may lead to misinterpretation of CBC data. Current Interpretive Data was last revised on 2017. Imm gran pct 0.2 % [facility] Comment: Interpretive Data Percent cell count reference ranges are not reported, since discordance with absolute values may lead to misinterpretation of CBC data. Current Interpretive Data was last revised on 2017. Lymphocyte pct 2.8 % [facility] Comment: Interpretive Data Percent cell count reference ranges are not reported, since discordance with absolute values may lead to misinterpretation of CBC data. Current Interpretive Data was last revised on 2017. Monocyte pct 4.2 % [facility] Comment: Interpretive Data Percent cell count reference ranges are not reported, since discordance with absolute values may lead to misinterpretation of CBC data. Current Interpretive Data was last revised on 2017. Eosinophil pct 2.0 % [facility] Comment: Interpretive Data Percent cell count reference ranges are not reported, since discordance with absolute values may lead to misinterpretation of CBC data. Current Interpretive Data was last revised on 2017. Basophil pct 1.0 % [facility] Comment: Interpretive Data Percent cell count reference ranges are not reported, since discordance with absolute values may lead to misinterpretation of CBC data. Current Interpretive Data was last revised on 2017. Blood 02/09/2024 9:00 AM ASSISTANT CASE MANAGER 02/09/2024 11:59 AM ASSISTANT CASE MANAGER us Notinfile Unknown LAB BLOOD ORDERABLES Final Res ult Performing Organization Address [facility] Co de Phone Number LINDA [facility] [place] [address] * Tacrolimus level trough (02/09/2024 9:00 AM ASSISTANT CASE MANAGER) Pathologist [facility] Tacrolimus trough 7.5 ng/mL Comment: Interpretive Data Testing performed by liquid chromatography-tandem mass spectrometry. Therapeutic concentrations vary depending on type of transplanted organ and time elapsed since transplant. Typical trough concentrations range from 5-15 ng/mL. This test was developed and its performance characteristics determined by the [facility] consistent with CLIA requirements. This test has not been cleared or approved by the US Food and Drug administration. Current interpretive data last reviewed 2019. Blood 02/09/2024 9:00 AM ASSISTANT CASE MANAGER 02/09/2024 12:01 PM ASSISTANT CASE MANAGER us Notinfile Unknown LAB BLOOD ORDERABLES Final Res ult Performing Organization Address [facility] Co de Phone Number LINDA [facility] [place] [address] * (ABNORMAL) CBC with auto differential (02/09/2024 9:00 AM ASSISTANT CASE MANAGER) WBC 5.0 3.8 - 9.9 K/cumm Hgb 9.7(L) 13.0 - 17.5 g/dL [facility] Hct 30.2(L) 38.9 - 50.3 % [facility] Plt 163 150 - 400 K/cumm [facility] MPV 10.4 9.1 - 12.3 fL [facility] RBC 2.91(L) 4.30 - 5.80 M/cumm [facility] MCV 103.8(H) 81.3 - 96.4 fL [facility] MCH 33.3 27.1 - 33.3 pg [facility] MCHC 32.1(L) 32.3 - 35.7 g/dL [facility] RDW CV 18.4(H) 11.1 - 14.9 % [facility] RDW SD 69.5(H) 35.7 - 48.1 fL [facility] NRBC abs 0.00 0.00 - 0.01 K/cumm [facility] Blood 02/09/2024 9:00 AM ASSISTANT CASE MANAGER 02/09/2024 11:59 AM ASSISTANT CASE MANAGER us Notinfile Unknown LAB BLOOD ORDERABLES Final Res ult Performing Organization Address [facility] Co de Phone Number [facility] [place] [address] * Magnesium (02/09/2024 9:00 AM ASSISTANT CASE MANAGER) Pathologist [facility] Magnesium 2.0 1.4 - 2.5 mg/dL Blood 02/09/2024 9:00 AM ASSISTANT CASE MANAGER 02/09/2024 11:59 AM ASSISTANT CASE MANAGER us Notinfile Unknown LAB BLOOD ORDERABLES Final Res ult Performing Organization Address City/[facility]/ZIP Co de Phone Number [facility] [place] [address] * (ABNORMAL) Renal function panel (02/09/2024 9:00 AM ASSISTANT CASE MANAGER) Sodium 143 135 - 145 mmol/L Potassium, pl 4.6 3.3 - 4.9 mmol/L [facility] Chloride 104 97 - 110 mmol/L [facility] CO2 27 22 - 32 mmol/L [facility] Anion gap 12 2 - 15 mmol/L [facility] BUN 60(H) 6 - 25 mg/dL [facility] Creatinine 3.91(H) 0.80 - 1.30 mg/dL [facility] Glucose 129 70 - 199 mg/dL [facility] Comment: Interpretive Data Fasting glucose >/= 126 [...] 2022. Calcium 9.9 8.5 - 10.3 mg/dL [facility] Phosphorus, pl 4.5 2.3 - 4.5 mg/dL [facility] Albumin 3.7 3.5 - 5.0 g/dL [facility] Blood 02/09/2024 9:00 AM ASSISTANT CASE MANAGER 02/09/2024 11:59 AM ASSISTANT CASE MANAGER us Notinfile Unknown LAB BLOOD ORDERABLES Final Res ult [facility] [place] [address] * (ABNORMAL) eGFR (02/04/2024 8:52 AM ASSISTANT CASE MANAGER) eGFR 17(L) >=60 mL/min/1. 73 m2 Comment: [...] last reviewed 2020. Blood 02/04/2024 8:52 AM ASSISTANT CASE MANAGER 02/04/2024 1:15 PM ASSISTANT CASE MANAGER us Notinfile Unknown LAB BLOOD ORDERABLES Final Res ult [facility] [place] [address] * (ABNORMAL) Differential, auto (02/04/2024 8:52 AM ASSISTANT CASE MANAGER) Neutrophil abs 6.1 1.5 - 6.5 K/cumm Imm gran abs 0.0 0.0 - 0.1 K/cumm [facility] Lymphocyte abs 0.1(L) 0.8 - 3.3 K/cumm [facility] Monocyte abs 0.4 0.2 - 0.8 K/cumm [facility] Eosinophil abs 0.1 0.0 - 0.5 K/cumm [facility] Basophil abs 0.0 0.0 - 0.1 K/cumm [facility] Neutrophil pct 90.2 % [facility] Comment: Interpretive Data Percent cell count reference ranges are not reported, since discordance with absolute values may lead to misinterpretation of CBC data. Current Interpretive Data was last revised on 2017. Imm gran pct 0.6 % [facility] Comment: Interpretive Data Percent cell count reference ranges are not reported, since discordance with absolute values may lead to misinterpretation of CBC data. Current Interpretive Data was last revised on 2017. Lymphocyte pct 1.9 % [facility] Comment: Interpretive Data Percent cell count reference ranges are not reported, since discordance with absolute values may lead to misinterpretation of CBC data. Current Interpretive Data was last revised on 2017. Monocyte pct 5.4 % [facility] Comment: Interpretive Data Percent cell count reference ranges are not reported, since discordance with absolute values may lead to misinterpretation of CBC data. Current Interpretive Data was last revised on 2017. Eosinophil pct 1.5 % [facility] Comment: Interpretive Data Percent cell count reference ranges are not reported, since discordance with absolute values may lead to misinterpretation of CBC data. Current Interpretive Data was last revised on 2017. Basophil pct 0.4 % [facility] Comment: Interpretive Data Percent cell count reference ranges are not reported, since discordance with absolute values may lead to misinterpretation of CBC data. Current Interpretive Data was last revised on 2017. Blood 02/04/2024 8:52 AM ASSISTANT CASE MANAGER 02/04/2024 1:09 PM ASSISTANT CASE MANAGER us Notinfile Unknown LAB BLOOD ORDERABLES Final Res ult Performing Organization Address [facility] de Phone Number [facility] [place] [address] * Tacrolimus level trough (02/04/2024 8:52 AM ASSISTANT CASE MANAGER) [facility] Signature Tacrolimus trough 7.8 ng/mL Comment: Interpretive Data Testing performed by liquid chromatography-tandem mass spectrometry. Therapeutic concentrations vary depending on type of transplanted organ and time elapsed since transplant. Typical trough concentrations range from 5-15 ng/mL. This test was developed and its performance characteristics determined by the [facility] consistent with CLIA requirements. This test has not been cleared or approved by the [place] Food and Drug administration. Current interpretive data last reviewed 2019. Blood 02/04/2024 8:52 AM ASSISTANT CASE MANAGER 02/04/2024 1:09 PM ASSISTANT CASE MANAGER us Notinfile Unknown LAB BLOOD ORDERABLES Final Res ult Performing Organization Address [facility] Co de Phone Number [facility] [place] [address] * (ABNORMAL) CBC with auto differential (02/04/2024 8:52 AM ASSISTANT CASE MANAGER) Pathologist [facility] WBC 6.8 3.8 - 9.9 K/cumm Hgb 9.1(L) 13.0 - 17.5 g/dL [facility] Hct 27.6(L) 38.9 - 50.3 % [facility] Plt 141(L) 150 - 400 K/cumm [facility] MPV 10.8 9.1 - 12.3 fL [facility] RBC 2.71(L) 4.30 - 5.80 M/cumm [facility] MCV 101.8(H) 81.3 - 96.4 fL [facility] MCH 33.6(H) 27.1 - 33.3 pg [facility] MCHC 33.0 32.3 - 35.7 g/dL [facility] RDW CV 18.4(H) 11.1 - 14.9 % [facility] RDW SD 67.1(H) 35.7 - 48.1 fL [facility] NRBC abs 0.00 0.00 - 0.01 K/cumm [facility] Blood 02/04/2024 8:52 AM ASSISTANT CASE MANAGER 02/04/2024 1:09 PM ASSISTANT CASE MANAGER us Notinfile Unknown LAB BLOOD ORDERABLES Final Res ult Performing Organization Address City/[facility]/ZIP Co de Phone Number [facility] Department [place] [address] * Magnesium (02/04/2024 8:52 AM ASSISTANT CASE MANAGER) Pathologist [facility] Magnesium 2.2 1.4 - 2.5 mg/dL Blood 02/04/2024 8:52 AM ASSISTANT CASE MANAGER 02/04/2024 1:07 PM ASSISTANT CASE MANAGER us Notinfile Unknown LAB BLOOD ORDERABLES Final Res ult [facility] [place] [address] * Creatinine, body fluid (02/04/2024 8:52 AM ASSISTANT CASE MANAGER) Specimen type, fld CONSTANZA FLUID. PG Creatinine, fld 3.53 mg/dL [facility] Comment: The above specimen type [...] 2018. Chapter 43, Body Fluids, p. 925 [employer] Test directory, Body Fluid Reference Intervals and/or Interpretative Information. [email or web address] Current Interpretive Data was last revised 2018. Fluid 02/04/2024 8:52 AM ASSISTANT CASE MANAGER 02/04/2024 1:09 PM ASSISTANT CASE MANAGER us Notinfile Unknown LAB BODY FLUIDS AND STOOLS ORD ERABLES Final Result LINDA [facility] [place] [address] * (ABNORMAL) Renal function panel (02/04/2024 8:52 AM ASSISTANT CASE MANAGER) Pathologist [facility] Sodium 138 135 - 145 mmol/L Potassium, pl 3.8 3.3 - 4.9 mmol/L [facility] Chloride 98 97 - 110 mmol/L [facility] CO2 31 22 - 32 mmol/L [facility] Anion gap 9 2 - 15 mmol/L [facility] BUN 38(H) 6 - 25 mg/dL [facility] Creatinine 3.73(H) 0.80 - 1.30 mg/dL [facility] Glucose 126 70 - 199 mg/dL [facility] Comment: Interpretive Data Fasting glucose >/= 126 [...] 2022. Calcium 9.4 8.5 - 10.3 mg/dL [facility] Phosphorus, pl 4.9(H) 2.3 - 4.5 mg/dL [facility] Albumin 3.5 3.5 - 5.0 g/dL [facility] Blood 02/04/2024 8:52 AM ASSISTANT CASE MANAGER 02/04/2024 1:07 PM ASSISTANT CASE MANAGER us Notinfile Unknown LAB BLOOD ORDERABLES Final Res ult [facility] [place] [address] * (ABNORMAL) eGFR (02/02/2024 9:00 AM ASSISTANT CASE MANAGER) eGFR 15(L) >=60 mL/min/1. 73 m2 Comment: [...] last reviewed 2020. Blood 02/02/2024 9:00 AM ASSISTANT CASE MANAGER 02/02/2024 7:39 PM ASSISTANT CASE MANAGER Matthew Marti MD LAB BLOOD ORDERABLES Final Result [facility] [place] [address] * (ABNORMAL) Differential, auto (02/02/2024 9:00 AM ASSISTANT CASE MANAGER) Neutrophil abs 6.9(H) 1.5 - 6.5 K/cumm Imm gran abs 0.1 0.0 - 0.1 K[facility]umm [facility] Lymphocyte abs 0.1(L) 0.8 - 3.3 K/cumm [facility] Monocyte abs 0.5 0.2 - 0.8 K/cumm [facility] Eosinophil abs 0.2 0.0 - 0.5 K/cumm [facility] Basophil abs 0.0 0.0 - 0.1 K/cumm [facility] Neutrophil pct 88.8 % [facility] Comment: Interpretive Data Percent cell count reference ranges are not reported, since discordance with absolute values may lead to misinterpretation of CBC data. Current Interpretive Data was last revised on 2017. Imm gran pct 1.0 % [facility] Comment: Interpretive Data Percent cell count reference ranges are not reported, since discordance with absolute values may lead to misinterpretation of CBC data. Current Interpretive Data was last revised on 2017. Lymphocyte pct 1.8 % [facility] Comment: Interpretive Data Percent cell count reference ranges are not reported, since discordance with absolute values may lead to misinterpretation of CBC data. Current Interpretive Data was last revised on 2017. Monocyte pct 5.8 % [facility] Comment: Interpretive Data Percent cell count reference ranges are not reported, since discordance with absolute values may lead to misinterpretation of CBC data. Current Interpretive Data was last revised on 2017. Eosinophil pct 2.1 % [facility] Comment: Interpretive Data Percent cell count reference ranges are not reported, since discordance with absolute values may lead to misinterpretation of CBC data. Current Interpretive Data was last revised on 2017. Basophil pct 0.5 % [facility] Comment: Interpretive Data Percent cell count reference ranges are not reported, since discordance with absolute values may lead to misinterpretation of CBC data. Current Interpretive Data was last revised on 2017. Blood 02/02/2024 9:00 AM ASSISTANT CASE MANAGER 02/02/2024 7:37 PM ASSISTANT CASE MANAGER Matthew Marti MD LAB BLOOD ORDERABLES Final Result Performing Organization Address [facility] de Phone Number [facility] [place] [address] * Tacrolimus level trough (02/02/2024 9:00 AM ASSISTANT CASE MANAGER) [facility] Tacrolimus trough 8.2 ng/mL Comment: Interpretive Data Testing performed by liquid chromatography-tandem mass spectrometry. Therapeutic concentrations vary depending on type of transplanted organ and time elapsed since transplant. Typical trough concentrations range from 5-15 ng/mL. This test was developed and its performance characteristics determined by the [facility] consistent with CLIA requirements. This test has not been cleared or approved by the [place] Food and Drug administration. Current interpretive data last reviewed 2019. Blood 02/02/2024 9:00 AM ASSISTANT CASE MANAGER 02/02/2024 7:37 PM ASSISTANT CASE MANAGER Matthew Marti MD LAB BLOOD ORDERABLES Final Result Performing Organization Address [facility] de Phone Number [facility] [place] [address] * (ABNORMAL) CBC with auto differential (02/02/2024 9:00 AM ASSISTANT CASE MANAGER) [facility] WBC 7.7 3.8 - 9.9 K/cumm Hgb 9.6(L) 13.0 - 17.5 g/dL [facility] Hct 29.6(L) 38.9 - 50.3 % [facility] Plt 180 150 - 400 K/cumm [facility] MPV 11.1 9.1 - 12.3 fL [facility] RBC 2.92(L) 4.30 - 5.80 M/cumm [facility] MCV 101.4(H) 81.3 - 96.4 fL [facility] MCH 32.9 27.1 - 33.3 pg [facility] MCHC 32.4 32.3 - 35.7 g/dL [facility] RDW CV 18.3(H) 11.1 - 14.9 % [facility] RDW SD 64.1(H) 35.7 - 48.1 fL [facility] NRBC abs 0.02(H) 0.00 - 0.01 K/cumm [facility] Blood 02/02/2024 9:00 AM ASSISTANT CASE MANAGER 02/02/2024 7:37 PM ASSISTANT CASE MANAGER Matthew Marti MD LAB BLOOD ORDERABLES Final Result Performing Organization Address [facility]/ZIP Co de Phone Number [facility] [place] [address] * Magnesium (02/02/2024 9:00 AM ASSISTANT CASE MANAGER) [facility] Magnesium 2.0 1.4 - 2.5 mg/dL Blood 02/02/2024 9:00 AM ASSISTANT CASE MANAGER 02/02/2024 7:36 PM ASSISTANT CASE MANAGER Matthew Marti MD LAB BLOOD ORDERABLES Final Result Performing Organization Address [facility] Co de Phone Number [facility] [place] [address] * (ABNORMAL) Renal function panel (02/02/2024 9:00 AM ASSISTANT CASE MANAGER) Pathologist [facility] Sodium 141 135 - 145 mmol/L Potassium, pl 3.4 3.3 - 4.9 mmol/L [facility] Chloride 95(L) 97 - 110 mmol/L [facility] CO2 29 22 - 32 mmol/L [facility] Anion gap 17(H) 2 - 15 mmol/L [facility] BUN 41(H) 6 - 25 mg/dL [facility] Creatinine 4.08(H) 0.80 - 1.30 mg/dL [facility] Glucose 82 70 - 199 mg/dL [facility] Comment: Interpretive Data Fasting glucose >/= 126 [...] 2022. Calcium 9.4 8.5 - 10.3 mg/dL [facility] Phosphorus, pl 5.3(H) 2.3 - 4.5 mg/dL [facility] Albumin 3.6 3.5 - 5.0 g/dL [facility] Blood 02/02/2024 9:00 AM ASSISTANT CASE MANAGER 02/02/2024 7:36 PM ASSISTANT CASE MANAGER us Matthew Marti MD LAB BLOOD ORDERABLES Final Result Performing Organization Address [facility]/ZIP Co de Phone Number [facility] [place] [address] * POCT glucose (01/28/2024 5:58 PM ASSISTANT CASE MANAGER) [facility] Signature Glucose, POC 163 70 - 199 mg/dL Blood 01/28/2024 5:58 PM ASSISTANT CASE MANAGER 01/28/2024 5:58 PM ASSISTANT CASE MANAGER Ayush Galvez MD LAB POCT ORDERABLES - DEVIC E Final Result Performing Organization Address [facility]/ZIP Co de Phone Number [facility] [place] [address] * POCT glucose (01/28/2024 12:47 PM ASSISTANT CASE MANAGER) Glucose, POC 170 70 - 199 mg/dL Blood 01/28/2024 12:4 7 PM ASSISTANT CASE MANAGER 01/28/2024 12:47 PM ASSISTANT CASE MANAGER Ayush Galvez MD LAB POCT ORDERABLES - DEVIC E Final Result Performing Organization Address [facility] de Phone Number [facility] [place] [address] * POCT glucose (01/28/2024 8:44 AM ASSISTANT CASE MANAGER) Glucose, POC 113 70 - 199 mg/dL Blood 01/28/2024 8:44 AM ASSISTANT CASE MANAGER 01/28/2024 8:44 AM ASSISTANT CASE MANAGER Ayush Galvez MD LAB POCT ORDERABLES - DEVIC E Final Result Performing Organization Address [facility] de Phone Number [facility] [place] [address] * (ABNORMAL) eGFR (01/28/2024 4:15 AM ASSISTANT CASE MANAGER) eGFR 13(L) >=60 mL/min/1. 73 m2 Comment: [...] last reviewed 2020. Blood 01/28/2024 4:15 AM ASSISTANT CASE MANAGER 01/28/2024 4:29 AM ASSISTANT CASE MANAGER Ayush Galvez MD LAB BLOOD ORDERABLES Final Result [facility] [place] [address] * (ABNORMAL) Differential, auto (01/28/2024 4:15 AM ASSISTANT CASE MANAGER) Neutrophil abs 7.5(H) 1.5 - 6.5 K/cumm Imm gran abs 0.5(H) 0.0 - 0.1 K/cumm [facility] Lymphocyte abs 0.1(L) 0.8 - 3.3 K/cumm [facility] Monocyte abs 0.5 0.2 - 0.8 K/cumm [facility] Eosinophil abs 0.1 0.0 - 0.5 K/cumm [facility] Basophil abs 0.0 0.0 - 0.1 K/cumm [facility] Neutrophil pct 87.1 % [facility] Comment: Interpretive Data Percent cell count reference ranges are not reported, since discordance with absolute values may lead to misinterpretation of CBC data. Current Interpretive Data was last revised on 2017. Imm gran pct 5.3 % [facility] Comment: Interpretive Data Percent cell count reference ranges are not reported, since discordance with absolute values may lead to misinterpretation of CBC data. Current Interpretive Data was last revised on 2017. Lymphocyte pct 1.4 % [facility] Comment: Interpretive Data Percent cell count reference ranges are not reported, since discordance with absolute values may lead to misinterpretation of CBC data. Current Interpretive Data was last revised on 2017. Monocyte pct 5.4 % [facility] Comment: Interpretive Data Percent cell count reference ranges are not reported, since discordance with absolute values may lead to misinterpretation of CBC data. Current Interpretive Data was last revised on 2017. Eosinophil pct 0.6 % [facility] Comment: Interpretive Data Percent cell count reference ranges are not reported, since discordance with absolute values may lead to misinterpretation of CBC data. Current Interpretive Data was last revised on 2017. Basophil pct 0.2 % [facility] Comment: Interpretive Data Percent cell count reference ranges are not reported, since discordance with absolute values may lead to misinterpretation of CBC data. Current Interpretive Data was last revised on 2017. Blood 01/28/2024 4:15 AM ASSISTANT CASE MANAGER 01/28/2024 4:27 AM ASSISTANT CASE MANAGER Ayush Galvez MD LAB BLOOD ORDERABLES Final Result Performing Organization Address [facility] de Phone Number [facility] [place] [address] * Tacrolimus level trough (01/28/2024 4:15 AM ASSISTANT CASE MANAGER) Pathologist [facility] Tacrolimus trough 12.2 ng/mL Comment: Interpretive Data Testing performed by liquid chromatography-tandem mass spectrometry. Therapeutic concentrations vary depending on type of transplanted organ and time elapsed since transplant. Typical trough concentrations range from 5-15 ng/mL. This test was developed and its performance characteristics determined by the [facility] consistent with CLIA requirements. This test has not been cleared or approved by the [place] Food and Drug administration. Current interpretive data last reviewed 2019. Blood 01/28/2024 4:15 AM ASSISTANT CASE MANAGER 01/28/2024 4:27 AM ASSISTANT CASE MANAGER Ayush Galvez MD LAB BLOOD ORDERABLES Final Result Performing Organization Address [facility] de Phone Number [facility] [place] [address] * (ABNORMAL) CBC with auto differential (01/28/2024 4:15 AM ASSISTANT CASE MANAGER) Pathologist [facility] WBC 8.6 3.8 - 9.9 K/cumm Hgb 9.5(L) 13.0 - 17.5 g/dL [facility] Hct 29.1(L) 38.9 - 50.3 % [facility] Plt 160 150 - 400 K/cumm [facility] MPV 11.1 9.1 - 12.3 fL [facility] RBC 3.06(L) 4.30 - 5.80 M/cumm [facility] MCV 95.1 81.3 - 96.4 fL [facility] MCH 31.0 27.1 - 33.3 pg [facility] MCHC 32.6 32.3 - 35.7 g/dL [facility] RDW CV 17.0(H) 11.1 - 14.9 % [facility] RDW SD 57.3(H) 35.7 - 48.1 fL [facility] NRBC abs 0.06(H) 0.00 - 0.01 K/cumm [facility] Blood 01/28/2024 4:15 AM ASSISTANT CASE MANAGER 01/28/2024 4:27 AM ASSISTANT CASE MANAGER Ayush Galvez MD LAB BLOOD ORDERABLES Final Result Performing Organization Address City/[facility]/ZIP Co de Phone Number [facility] [place] [address] * Magnesium (01/28/2024 4:15 AM ASSISTANT CASE MANAGER) Pathologist [facility] Magnesium 2.1 1.4 - 2.5 mg/dL Blood 01/28/2024 4:15 AM ASSISTANT CASE MANAGER 01/28/2024 4:29 AM ASSISTANT CASE MANAGER Ayush Galvez MD LAB BLOOD ORDERABLES Final Result [facility] [place] [address] * (ABNORMAL) Renal function panel (01/28/2024 4:15 AM ASSISTANT CASE MANAGER) Sodium 139 135 - 145 mmol/L Potassium, pl 3.7 3.3 - 4.9 mmol/L [facility] Chloride 94(L) 97 - 110 mmol/L [facility] CO2 29 22 - 32 mmol/L [facility] Anion gap 16(H) 2 - 15 mmol/L [facility] BUN 39(H) 6 - 25 mg/dL [facility] Creatinine 4.80(H) 0.80 - 1.30 mg/dL [facility] Glucose 126 70 - 199 mg/dL [facility] Comment: Interpretive Data Fasting glucose >/= 126 [...] 2022. Calcium 9.9 8.5 - 10.3 mg/dL [facility] Phosphorus, pl 5.3(H) 2.3 - 4.5 mg/dL [facility] Albumin 3.4(L) 3.5 - 5.0 g/dL [facility] Blood 01/28/2024 4:15 AM ASSISTANT CASE MANAGER 01/28/2024 4:29 AM ASSISTANT CASE MANAGER Ayush Galvez MD LAB BLOOD ORDERABLES Final Result Performing Organization Address City/[facility] Co de Phone Number [facility] [place] [address] * POCT glucose (01/27/2024 9:07 PM ASSISTANT CASE MANAGER) [facility] Glucose, POC 180 70 - 199 mg/dL Blood 01/27/2024 9:07 PM ASSISTANT CASE MANAGER 01/27/2024 9:07 PM ASSISTANT CASE MANAGER Ayush Galvez MD LAB POCT ORDERABLES - DEVIC E Final Result [facility]DA [facility] [place] [address] * (ABNORMAL) POCT glucose (01/27/2024 5:55 PM ASSISTANT CASE MANAGER) Glucose, POC 241(H) 70 - 199 mg/dL Blood 01/27/2024 5:55 PM ASSISTANT CASE MANAGER 01/27/2024 5:55 PM ASSISTANT CASE MANAGER Ayush Galvez MD LAB POCT ORDERABLES - DEVIC E Final Result Performing Organization Address [facility] de Phone Number LINDA [facility] [place] [address] * ECG 12 lead (01/27/2024 3:35 PM ASSISTANT CASE MANAGER) [facility] Ventricular Rate EKG/Min 82 BPM [facility] QRS-Interval (MSEC) 144 ms [facility] QT-Interval (MSEC) 466 ms [facility] QTc 544 ms [facility] R [place] 4 degrees [facility] T [place] 20 degrees [facility] Diagnosis Atrial fibrillation with a premature ventricular beat or aberrantly conducted beat Non-specific intra-ventricul ar conduction block Abnormal ECG When compared with ECG of 25-JAN-2024 13:31, no significant change Confirmed by OLEKSANDR MATUTE M.D ([id number]) on 01/29/2024 10:04:40 AM [facility] 01/27/2024 3:35 PM ASSISTANT CASE MANAGER 01/29/2024 10:04 AM ASSISTANT CASE MANAGER Ayush Galvez MD ECG ORDERABLES Final Resul t Performing Organization Address [facility] de Phone Number [facility] * POCT glucose (01/27/2024 12:24 PM ASSISTANT CASE MANAGER) Glucose, POC 186 70 - 199 mg/dL Blood 01/27/2024 12:2 4 PM ASSISTANT CASE MANAGER 01/27/2024 12:24 PM ASSISTANT CASE MANAGER Ayush Galvez MD LAB POCT ORDERABLES - DEVIC E Final Result Performing Organization Address City/[facility] Co de Phone Number [facility] [place] [address] * (ABNORMAL) eGFR (01/27/2024 4:17 AM ASSISTANT CASE MANAGER) eGFR 12(L) >=60 mL/min/1. 73 m2 Comment: [...] last reviewed 2020. Blood 01/27/2024 4:17 AM ASSISTANT CASE MANAGER 01/27/2024 5:22 AM ASSISTANT CASE MANAGER us Ayush Galvez MD LAB BLOOD ORDERABLES Final Result Performing Organization Address [facility]/ZIP Co de Phone Number LINDA [facility] Department [place] [address] * (ABNORMAL) Differential, auto (01/27/2024 4:17 AM ASSISTANT CASE MANAGER) Pathologist [facility] Neutrophil abs 5.7 1.5 - 6.5 K/cumm Imm gran abs 0.3(H) 0.0 - 0.1 K/cumm [facility] Lymphocyte abs 0.1(L) 0.8 - 3.3 K/cumm [facility] Monocyte abs 0.3 0.2 - 0.8 K/cumm [facility] Eosinophil abs 0.0 0.0 - 0.5 K/cumm [facility] Basophil abs 0.0 0.0 - 0.1 K/cumm [facility] Neutrophil pct 88.4 % [facility] Comment: Interpretive Data Percent cell count reference ranges are not reported, since discordance with absolute values may lead to misinterpretation of CBC data. Current Interpretive Data was last revised on 2017. Imm gran pct 4.2 % [facility] Comment: Interpretive Data Percent cell count reference ranges are not reported, since discordance with absolute values may lead to misinterpretation of CBC data. Current Interpretive Data was last revised on 2017. Lymphocyte pct 1.7 % [facility] Comment: Interpretive Data Percent cell count reference ranges are not reported, since discordance with absolute values may lead to misinterpretation of CBC data. Current Interpretive Data was last revised on 2017. Monocyte pct 5.0 % [facility] Comment: Interpretive Data Percent cell count reference ranges are not reported, since discordance with absolute values may lead to misinterpretation of CBC data. Current Interpretive Data was last revised on 2017. Eosinophil pct 0.5 % [facility] Comment: Interpretive Data Percent cell count reference ranges are not reported, since discordance with absolute values may lead to misinterpretation of CBC data. Current Interpretive Data was last revised on 2017. Basophil pct 0.2 % [facility] Comment: Interpretive Data Percent cell count reference ranges are not reported, since discordance with absolute values may lead to misinterpretation of CBC data. Current Interpretive Data was last revised on 2017. Blood 01/27/2024 4:17 AM ASSISTANT CASE MANAGER 01/27/2024 5:22 AM ASSISTANT CASE MANAGER us Ayush Galvez MD LAB BLOOD ORDERABLES Final Result [facility] [place] [address] * Tacrolimus level trough (01/27/2024 4:17 AM ASSISTANT CASE MANAGER) Pathologist [facility] Tacrolimus trough 12.2 ng/mL Comment: Interpretive Data Testing performed by liquid chromatography-tandem mass spectrometry. Therapeutic concentrations vary depending on type of transplanted organ and time elapsed since transplant. Typical trough concentrations range from 5-15 ng/mL. This test was developed and its performance characteristics determined by the [facility] consistent with CLIA requirements. This test has not been cleared or approved by the US Food and Drug administration. Current interpretive data last reviewed 2019. Blood 01/27/2024 4:17 AM ASSISTANT CASE MANAGER 01/27/2024 5:22 AM ASSISTANT CASE MANAGER Ayush Galvez MD LAB BLOOD ORDERABLES Final Result [facility] [place] [address] * (ABNORMAL) CBC with auto differential (01/27/2024 4:17 AM ASSISTANT CASE MANAGER) [facility] WBC 6.5 3.8 - 9.9 K/cumm Hgb 9.1(L) 13.0 - 17.5 g/dL [facility] Hct 26.8(L) 38.9 - 50.3 % [facility] Plt 144(L) 150 - 400 K/cumm [facility] MPV 11.8 9.1 - 12.3 fL [facility] RBC 2.85(L) 4.30 - 5.80 M/cumm [facility] MCV 94.0 81.3 - 96.4 fL [facility] MCH 31.9 27.1 - 33.3 pg [facility] MCHC 34.0 32.3 - 35.7 g/dL [facility] RDW CV 16.9(H) 11.1 - 14.9 % [facility] RDW SD 55.8(H) 35.7 - 48.1 fL [facility] NRBC abs 0.03(H) 0.00 - 0.01 K/cumm [facility] Blood 01/27/2024 4:17 AM ASSISTANT CASE MANAGER 01/27/2024 5:22 AM ASSISTANT CASE MANAGER Ayush Galvez MD LAB BLOOD ORDERABLES Final Result Performing Organization Address City/[facility] Co de Phone Number [facility] [place] [address] * Magnesium (01/27/2024 4:17 AM ASSISTANT CASE MANAGER) [facility] Magnesium 2.4 1.4 - 2.5 mg/dL Blood 01/27/2024 4:17 AM ASSISTANT CASE MANAGER 01/27/2024 5:22 AM ASSISTANT CASE MANAGER Ayush Galvez MD LAB BLOOD ORDERABLES Final Result Performing Organization Address [facility] de Phone Number [facility] [place] [address] * (ABNORMAL) Renal function panel (01/27/2024 4:17 AM ASSISTANT CASE MANAGER) [facility] Sodium 136 135 - 145 mmol/L Potassium, pl 3.9 3.3 - 4.9 mmol/L [facility] Comment:Hemolyzed; Potassium value may be falsely elevated by as much as 0.6-1.0 mmol/L. Suggest redraw and reanalysis. Chloride 93(L) 97 - 110 mmol/L [facility] CO2 29 22 - 32 mmol/L [facility] Anion gap 14 2 - 15 mmol/L [facility] BUN 47(H) 6 - 25 mg/dL [facility] Creatinine 5.15(H) 0.80 - 1.30 mg/dL [facility] Glucose 136 70 - 199 mg/dL [facility] Comment: Interpretive Data Fasting glucose >/= 126 [...] 2022. Calcium 9.8 8.5 - 10.3 mg/dL [facility] Phosphorus, pl 5.8(H) 2.3 - 4.5 mg/dL [facility] Comment:Reviewed Albumin 3.2(L) 3.5 - 5.0 g/dL [facility] Blood 01/27/2024 4:17 AM ASSISTANT CASE MANAGER 01/27/2024 5:22 AM ASSISTANT CASE MANAGER Ayush Galvez MD LAB BLOOD ORDERABLES Final Result Performing Organization Address City/[facility] Co de Phone Number [facility] [place] [address] * POCT glucose (01/26/2024 7:59 PM ASSISTANT CASE MANAGER) Glucose, POC 152 70 - 199 mg/dL Blood 01/26/2024 7:59 PM ASSISTANT CASE MANAGER 01/26/2024 7:59 PM ASSISTANT CASE MANAGER Ayush Galvez MD LAB POCT ORDERABLES - DEVIC E Final Result Performing Organization Address [facility] Co de Phone Number [facility] [place] [address] * POCT glucose (01/26/2024 5:15 PM ASSISTANT CASE MANAGER) Glucose, POC 189 70 - 199 mg/dL Blood 01/26/2024 5:15 PM ASSISTANT CASE MANAGER 01/26/2024 5:15 PM ASSISTANT CASE MANAGER Ayush Galvez MD LAB POCT ORDERABLES - DEVIC E Final Result Performing Organization Address [facility] Co de Phone Number [facility] [place] [address] * POCT glucose (01/26/2024 1:48 PM ASSISTANT CASE MANAGER) Glucose, POC 149 70 - 199 mg/dL Blood 01/26/2024 1:48 PM ASSISTANT CASE MANAGER 01/26/2024 1:48 PM ASSISTANT CASE MANAGER us Ayush Galvez MD LAB POCT ORDERABLES - DEVIC E Final Result Performing Organization Address [facility] de Phone Number [facility] [place] [address] * POCT glucose (01/26/2024 12:06 PM ASSISTANT CASE MANAGER) Glucose, POC 180 70 - 199 mg/dL Blood 01/26/2024 12:0 6 PM ASSISTANT CASE MANAGER 01/26/2024 12:06 PM ASSISTANT CASE MANAGER us Ayush Galvez MD LAB POCT ORDERABLES - DEVIC E Final Result Performing Organization Address [facility] [place] [address] * Transfuse RBC (01/26/2024 9:55 AM ASSISTANT CASE MANAGER) Blood Ayush Galvez MD BLOOD TRANSFUSION ORDERABLE S Edited Result - Final Performing Organization Address [facility] de Phone Number [facility] [place] [address] * POCT glucose (01/26/2024 8:25 AM ASSISTANT CASE MANAGER) Glucose, POC 175 70 - 199 mg/dL Blood 01/26/2024 8:25 AM ASSISTANT CASE MANAGER 01/26/2024 8:25 AM ASSISTANT CASE MANAGER Ayush Galvez MD LAB POCT ORDERABLES - DEVIC E Final Result Performing Organization Address [facility] de Phone Number [facility] [place] [address] * Type and screen (01/26/2024 6:19 AM ASSISTANT CASE MANAGER) [facility] Kusum, indirect Negative ABO Rh O Negative [facility] Blood 01/26/2024 6:19 AM ASSISTANT CASE MANAGER 01/26/2024 6:30 AM ASSISTANT CASE MANAGER Narrative [facility] - 01/26/2024 7:36 AM ASSISTANT CASE MANAGER Has the patient had Daratumumab or Isatuximab in the past 6 months?->Unknown us Ayush Galvez MD LAB BLOOD BANK TEST ORDERAB LES Final Result Performing Organization Address [facility] [place] [address] * Prepare RBC: 1 Units (01/26/2024 5:41 AM ASSISTANT CASE MANAGER) [facility] Product code [id number] Unit Number [id number] * [facility] Product Blood Type ONEG [facility] Dispense Status PRESUMED TRANSFUSED [facility] Blood 01/26/2024 5:41 AM ASSISTANT CASE MANAGER 01/26/2024 5:41 AM ASSISTANT CASE MANAGER Narrative [facility] - 01/26/2024 4:02 PM ASSISTANT CASE MANAGER Are special requirements needed? (All products are leukoreduced and CMV- safe)- >No Date required:-[id number] LRRBC # of [id number] Reasons:-Cardiovascular disease, Hgb <8 g/dL} Ayush Galvez MD BLOOD BANK PRODUCT ORDERABL ES Final Result Performing Organization Address [facility] [place] [address] * (ABNORMAL) eGFR (01/26/2024 4:39 AM ASSISTANT CASE MANAGER) eGFR 9(L) >=60 mL/min/1. 73 m2 Comment: [...] last reviewed 2020. Blood 01/26/2024 4:39 AM ASSISTANT CASE MANAGER 01/26/2024 5:17 AM ASSISTANT CASE MANAGER us Ayush Galvez MD LAB BLOOD ORDERABLES Final Result [facility] One [facility] [place] [address] * (ABNORMAL) Differential, auto (01/26/2024 4:39 AM ASSISTANT CASE MANAGER) Pathologist [facility] Neutrophil abs 4.2 1.5 - 6.5 K/cumm Imm gran abs 0.1 0.0 - 0.1 K/cumm [facility] Lymphocyte abs 0.1(L) 0.8 - 3.3 K/cumm [facility] Monocyte abs 0.2 0.2 - 0.8 K/cumm [facility] Eosinophil abs 0.0 0.0 - 0.5 K/cumm [facility] Basophil abs 0.0 0.0 - 0.1 K/cumm [facility] Neutrophil pct 91.1 % [facility] Comment: Interpretive Data Percent cell count reference ranges are not reported, since discordance with absolute values may lead to misinterpretation of CBC data. Current Interpretive Data was last revised on 2017. Imm gran pct 2.0 % [facility] Comment: Interpretive Data Percent cell count reference ranges are not reported, since discordance with absolute values may lead to misinterpretation of CBC data. Current Interpretive Data was last revised on 2017. Lymphocyte pct 1.7 % [facility] Comment: Interpretive Data Percent cell count reference ranges are not reported, since discordance with absolute values may lead to misinterpretation of CBC data. Current Interpretive Data was last revised on 2017. Monocyte pct 5.2 % [facility] Comment: Interpretive Data Percent cell count reference ranges are not reported, since discordance with absolute values may lead to misinterpretation of CBC data. Current Interpretive Data was last revised on 2017. Eosinophil pct 0.0 % [facility] Comment: Interpretive Data Percent cell count reference ranges are not reported, since discordance with absolute values may lead to misinterpretation of CBC data. Current Interpretive Data was last revised on 2017. Basophil pct 0.0 % [facility] Comment: Interpretive Data Percent cell count reference ranges are not reported, since discordance with absolute values may lead to misinterpretation of CBC data. Current Interpretive Data was last revised on 2017. Blood 01/26/2024 4:39 AM ASSISTANT CASE MANAGER 01/26/2024 5:17 AM ASSISTANT CASE MANAGER Ayush Galvez MD LAB BLOOD ORDERABLES Final Result Performing Organization Address City/State/[facility] Co de Phone Number [facility] [place] [address] * Tacrolimus level trough (01/26/2024 4:39 AM ASSISTANT CASE MANAGER) Tacrolimus trough 8.9 ng/mL Comment: Interpretive Data Testing performed by liquid chromatography-tandem mass spectrometry. Therapeutic concentrations vary depending on type of transplanted organ and time elapsed since transplant. Typical trough concentrations range from 5-15 ng/mL. This test was developed and its performance characteristics determined by the [facility] consistent with CLIA requirements. This test has not been cleared or approved by the [place] Food and Drug administration. Current interpretive data last reviewed 2019. Blood 01/26/2024 4:39 AM ASSISTANT CASE MANAGER 01/26/2024 5:17 AM ASSISTANT CASE MANAGER Ayush Galvez MD LAB BLOOD ORDERABLES Final Result Performing Organization Address City/[facility] Co de Phone Number [facility] [place] [address] * (ABNORMAL) CBC with auto differential (01/26/2024 4:39 AM ASSISTANT CASE MANAGER) Pathologist [facility] WBC 4.6 3.8 - 9.9 K/cumm Hgb 7.9(L) 13.0 - 17.5 g/dL [facility] Hct 23.5(L) 38.9 - 50.3 % [facility] Plt 111(L) 150 - 400 K/cumm [facility] MPV 11.9 9.1 - 12.3 fL [facility] RBC 2.49(L) 4.30 - 5.80 M/cumm [facility] MCV 94.4 81.3 - 96.4 fL [facility] MCH 31.7 27.1 - 33.3 pg [facility] MCHC 33.6 32.3 - 35.7 g/dL [facility] RDW CV 17.2(H) 11.1 - 14.9 % [facility] RDW SD 58.9(H) 35.7 - 48.1 fL [facility] NRBC abs 0.00 0.00 - 0.01 K/cumm [facility] Blood 01/26/2024 4:39 AM ASSISTANT CASE MANAGER 01/26/2024 5:17 AM ASSISTANT CASE MANAGER Ayush Galvez MD LAB BLOOD ORDERABLES Final Result Performing Organization Address City/[facility]/ZIP Co de Phone Number [facility] [place] [address] * Magnesium (01/26/2024 4:39 AM ASSISTANT CASE MANAGER) Pathologist [facility] Magnesium 2.5 1.4 - 2.5 mg/dL Blood 01/26/2024 4:39 AM ASSISTANT CASE MANAGER 01/26/2024 5:17 AM ASSISTANT CASE MANAGER Ayush Galvez MD LAB BLOOD ORDERABLES Final Result [facility] One [facility] [place] [address] * (ABNORMAL) Renal function panel (01/26/2024 4:39 AM ASSISTANT CASE MANAGER) Pathologist [facility] Sodium 132(L) 135 - 145 mmol/L Potassium, pl 4.5 3.3 - 4.9 mmol/L [facility] Comment:Hemolyzed; Potassium value may be falsely elevated by as much as 0.3-0.5 mmol/L. Suggest redraw and reanalysis. Chloride 90(L) 97 - 110 mmol/L [facility] CO2 28 22 - 32 mmol/L [facility] Anion gap 14 2 - 15 mmol/L [facility] BUN 69(H) 6 - 25 mg/dL [facility] Creatinine 6.70(H) 0.80 - 1.30 mg/dL [facility] Glucose 172 70 - 199 mg/dL [facility] Comment: Interpretive Data Fasting glucose >/= 126 [...] 2022. Calcium 9.6 8.5 - 10.3 mg/dL [facility] Phosphorus, pl 8.0(H) 2.3 - 4.5 mg/dL [facility] Albumin 3.0(L) 3.5 - 5.0 g/dL [facility] Blood 01/26/2024 4:39 AM ASSISTANT CASE MANAGER 01/26/2024 5:17 AM ASSISTANT CASE MANAGER Ayush Galvez MD LAB BLOOD ORDERABLES Final Result Performing Organization Address [facility] Co de Phone Number [facility] [place] [address] * POCT glucose (01/25/2024 9:33 PM ASSISTANT CASE MANAGER) Pathologist [facility] Glucose, POC 195 70 - 199 mg/dL Blood 01/25/2024 9:33 PM ASSISTANT CASE MANAGER 01/25/2024 9:33 PM ASSISTANT CASE MANAGER Result [facility] Ayush Galvez MD LAB POCT ORDERABLES - DEVIC E Final Result Performing Organization Address [facility] de Phone Number [facility] [place] [address] * (ABNORMAL) Troponin I high-sensitivity 6-hour (01/25/2024 7:51 PM ASSISTANT CASE MANAGER) Pathologist [facility] Trop I hs 347(C) <=35 ng/L Comment: Previous critical value noted within 48 hours ago. Interpretive Data [facility] resources including the diagnostic algorithm and an aid in interpretation, copy and paste this link: [email or web address]/[email or web address] Current Interpretive Data last revised 2019. Trop I hs pct delta -11 % [facility] Comment:Previous critical va lue noted within 48 hours ago. Trop I hs interp Equivocal [facility] Comment:Previous critical va lue noted within 48 hours ago. Blood 01/25/2024 7:51 PM ASSISTANT CASE MANAGER 01/25/2024 8:11 PM ASSISTANT CASE MANAGER Result [facility] Vannessa Hein NP LAB BLOOD ORDERABLES Fin al Result Performing Organization Address [facility] Co de Phone Number [facility] [place] [address] * (ABNORMAL) Troponin I high-sensitivity 4-hour (01/25/2024 6:00 PM ASSISTANT CASE MANAGER) Pathologist [facility] Trop I hs 388(C) <=35 ng/L Comment: Previous critical value noted within 48 hours ago. Interpretive Data For further hscTnI resources including the diagnostic algorithm and an aid in interpretation, copy and paste this link: [email or web address] Current Interpretive Data last revised 2019. Trop I hs pct delta -1 % [facility] Trop I hs interp Insignificant [facility] Blood 01/25/2024 6:00 PM ASSISTANT CASE MANAGER 01/25/2024 6:21 PM ASSISTANT CASE MANAGER us Vannessa Hein NP LAB BLOOD ORDERABLES Fin al Result Performing Organization Address City/[facility]/ZIP Co de Phone Number [facility] [place] [address] * (ABNORMAL) POCT glucose (01/25/2024 5:49 PM ASSISTANT CASE MANAGER) [facility] Glucose, POC 212(H) 70 - 199 mg/dL Blood 01/25/2024 5:49 PM ASSISTANT CASE MANAGER 01/25/2024 5:49 PM ASSISTANT CASE MANAGER Ayush Galvez MD LAB POCT ORDERABLES - DEVIC E Final Result Performing Organization Address [facility]/State/ZIP Co de Phone Number [facility] [place] [address] * (ABNORMAL) Troponin I high-sensitivity 2-hour (01/25/2024 3:44 PM ASSISTANT CASE MANAGER) Pathologist [facility] Trop I hs 384(C) <=35 ng/L Comment: Previous critical value noted within 48 hours ago. Interpretive Data For further hscTnI resources including the diagnostic algorithm and an aid in interpretation, copy and paste this link: [email or web address] Current Interpretive Data last revised 2019. Trop I hs pct delta -2 % [facility] Trop I hs interp Insignificant [facility] Blood 01/25/2024 3:44 PM ASSISTANT CASE MANAGER 01/25/2024 4:16 PM ASSISTANT CASE MANAGER us Vannessa Hein NP LAB BLOOD ORDERABLES Fin al Result [facility] [place] [address] * XR Chest 1 View (01/25/2024 2:52 PM ASSISTANT CASE MANAGER) Anatomical Region Laterality Modality Body, Chest N/A Computed Radiogr aphy 01/25/2024 3:56 PM ASSISTANT CASE MANAGER Impressions 01/25/2024 4:00 PM ASSISTANT CASE MANAGER The current study is compared with the [...] Erinn Morataya M.D. Narrative 01/25/2024 4:00 PM ASSISTANT CASE MANAGER EXAMINATION: 1 view chest radiograph Procedure Note [...] signed by: Erinn Morataya M.D. Vannessa Hein CAPSULE FILLING MACHINE OPERATOR IMG XR PROCEDURES Final Result * (ABNORMAL) CBC without differential (01/25/2024 2:42 PM ASSISTANT CASE MANAGER) [facility] WBC 6.9 3.8 - 9.9 K/cumm Hgb 8.1(L) 13.0 - 17.5 g/dL [facility] Hct 24.5(L) 38.9 - 50.3 % [facility] Plt 94(L) 150 - 400 K/cumm [facility] MPV 11.4 9.1 - 12.3 fL [facility] RBC 2.56(L) 4.30 - 5.80 M/cumm [facility] MCV 95.7 81.3 - 96.4 fL [facility] MCH 31.6 27.1 - 33.3 pg [facility] MCHC 33.1 32.3 - 35.7 g/dL [facility] RDW CV 17.2(H) 11.1 - 14.9 % [facility] RDW SD 59.7(H) 35.7 - 48.1 fL [facility] NRBC abs 0.03(H) 0.00 - 0.01 K/cumm [facility] Blood 01/25/2024 2:42 PM ASSISTANT CASE MANAGER 01/25/2024 2:56 PM ASSISTANT CASE MANAGER us Susi LEE LAB BLOOD ORDERABLES Final Result [facility] [place] [address] * (ABNORMAL) Troponin I high-sensitivity (01/25/2024 2:05 PM ASSISTANT CASE MANAGER) [facility] Trop I hs 383(C) <=35 ng/L Comment: Previous critical value noted within 48 hours ago. Interpretive Data For further hscTnI resources including the diagnostic algorithm and an aid in interpretation, copy and paste this link: [email or web address] Current Interpretive Data last revised 2019. Blood 01/25/2024 2:05 PM ASSISTANT CASE MANAGER 01/25/2024 2:23 PM ASSISTANT CASE MANAGER Susi Nuñez PA LAB BLOOD ORDERABLES Final Result Performing Organization Address [facility] Co de Phone Number [facility] [place] [address] * (ABNORMAL) Troponin I high-sensitivity series (baseline, 2hr, 4hr, 6hr) (01/25/2024 1:46 PM ASSISTANT CASE MANAGER) Trop I hs 391(C) <=35 ng/L Comment: Interpretive Data For further hscTnI resources including the diagnostic algorithm and an aid in interpretation, copy and paste this link: [email or web address] Current Interpretive Data last revised 2019. Blood 01/25/2024 1:46 PM ASSISTANT CASE MANAGER 01/25/2024 1:59 PM ASSISTANT CASE MANAGER Vannessa Hein CAPSULE FILLING MACHINE OPERATOR LAB BLOOD ORDERABLES Fin al Result Performing Organization Address [facility] Co de Phone Number [facility] [place] [address] * Critical result callback Cardio chemistry (01/25/2024 1:46 PM ASSISTANT CASE MANAGER) Date Notified [id number] Time Notified 1449 [facility] Test name Trop I hs base [facility] Called/Read Back Nadi[facility] Credentials RN LINDA B[facility]ARD Called By afshin BALLARD Blood 01/25/2024 1:46 PM ASSISTANT CASE MANAGER 01/25/2024 2:11 PM ASSISTANT CASE MANAGER Vannessa Hein CAPSULE FILLING MACHINE OPERATOR LAB BLOOD ORDERABLES Fin al Result Performing Organization Address [facility]/ZIP Co de Phone Number [facility] [place] [address] * ECG 12 lead (01/25/2024 1:31 PM ASSISTANT CASE MANAGER) [facility] Ventricular Rate EKG/Min 82 BPM [facility] Atrial Rate 83 BPM [facility] QRS-Interval (MSEC) 144 ms [facility] QT-Interval (MSEC) 462 ms [facility] QTc 539 ms [facility] R [place] 7 degrees [facility] T [place] 3 degrees [facility] Diagnosis Atrial fibrillation/fl utter with variable A-V block Non-specific intra-ventricul ar conduction block Cannot rule out Inferior infarct , age undetermined Abnormal ECG When compared with ECG of 23-JAN-2024 01:02, (unconfirmed) T wave inversion no longer evident in Lateral leads QT has lengthened Confirmed by JENNIFER BYRD M.D ([id number]) on 01/26/2024 12:43:53 PM [facility] 01/25/2024 1:31 PM ASSISTANT CASE MANAGER 01/26/2024 12:43 PM ASSISTANT CASE MANAGER Vannessa Hein CAPSULE FILLING MACHINE OPERATOR ECG ORDERABLES Final Re sult Performing Organization Address [facility] Co de Phone Number [facility] * Creatinine, body fluid (01/25/2024 1:15 PM ASSISTANT CASE MANAGER) Specimen type, fld Peritoneal Creatinine, fld 5.90 mg/dL [facility] Comment: The above specimen type [...] 2018. Chapter 43, Body Fluids, p. 925 [facility] Test directory, Body Fluid Reference Intervals and/or Interpretative Information. [email or web address] Current Interpretive Data was last revised 2018. Fluid 01/25/2024 1:15 PM ASSISTANT CASE MANAGER 01/25/2024 2:12 PM ASSISTANT CASE MANAGER Narrative [facility] 01/25/2024 2:45 PM ASSISTANT CASE MANAGER CONSTANZA drain Rosalie Velásquez CAPSULE FILLING MACHINE OPERATOR LAB BODY FLUIDS AND STOOLS ORDERABLES Final Result Performing Organization Address [facility] Co de Phone Number [facility] [place] [address] * POCT glucose (01/25/2024 12:46 PM ASSISTANT CASE MANAGER) Glucose, POC 169 70 - 199 mg/dL Blood 01/25/2024 12:4 6 PM ASSISTANT CASE MANAGER 01/25/2024 12:46 PM ASSISTANT CASE MANAGER Ayush Galvez MD LAB POCT ORDERABLES - DEVIC E Final Result Performing Organization Address [facility] [place] [address] * POCT glucose (01/25/2024 11:13 AM ASSISTANT CASE MANAGER) Glucose, POC 143 70 - 199 mg/dL Blood 01/25/2024 11:1 3 AM ASSISTANT CASE MANAGER 01/25/2024 11:13 AM ASSISTANT CASE MANAGER Ayush Galvez MD LAB POCT ORDERABLES - DEVIC E Final Result Performing Organization Address [facility] de Phone Number [facility] [place] [address] * IR Central Line Placement > 5 Years (01/25/2024 10:26 AM ASSISTANT CASE MANAGER) Anatomical Region Laterality Modality Body N/A X-Ray Angiograph y 01/25/2024 11:2 6 AM ASSISTANT CASE MANAGER Impressions 01/25/2024 2:04 PM ASSISTANT CASE MANAGER Successful nontunneled catheter placement. PLAN: The catheter [...] Miguel Swan M.D. Narrative 01/25/2024 2:04 PM ASSISTANT CASE MANAGER EXAMINATION: NONTUNNELED CENTRAL VENOUS CATHETER PLACEMENT (STD) [...] was obtained. Prior to beginning the procedure, [place] Protocol was used to confirm the patient's [...] was obtained. Prior to beginning the procedure, [place] Protocol was used to confirm the patient's [...] by: Juan Miguel Swan M.D. Vannessa Hein CAPSULE FILLING MACHINE OPERATOR IMG IR PROCEDURES Final Result * POCT glucose (01/25/2024 7:40 AM ASSISTANT CASE MANAGER) Glucose, POC 147 70 - 199 mg/dL Blood 01/25/2024 7:40 AM ASSISTANT CASE MANAGER 01/25/2024 7:40 AM ASSISTANT CASE MANAGER Ayush Galvez MD LAB POCT ORDERABLES - DEVIC E Final Result Performing Organization Address City/[facility]/ZIP Co de Phone Number [facility] [place] [address] * (ABNORMAL) eGFR (01/25/2024 5:07 AM ASSISTANT CASE MANAGER) Pathologist [facility] eGFR 10(L) >=60 mL/min/1. 73 m2 Comment: [...] last reviewed 2020. Blood 01/25/2024 5:07 AM ASSISTANT CASE MANAGER 01/25/2024 5:25 AM ASSISTANT CASE MANAGER Ayush Galvez MD LAB BLOOD ORDERABLES Final Result Performing Organization Address City/[facility]/ZIP Co de Phone Number [facility] [place] [address] * (ABNORMAL) Differential, auto (01/25/2024 5:07 AM ASSISTANT CASE MANAGER) Neutrophil abs 3.3 1.5 - 6.5 K/cumm Imm gran abs 0.1 0.0 - 0.1 K/cumm [facility] Lymphocyte abs 0.1(L) 0.8 - 3.3 K/cumm [facility] Monocyte abs 0.2 0.2 - 0.8 K/cumm [facility] Eosinophil abs 0.0 0.0 - 0.5 K/cumm [facility] Basophil abs 0.0 0.0 - 0.1 K/cumm [facility] Neutrophil pct 90.8 % [facility] Comment: Interpretive Data Percent cell count reference ranges are not reported, since discordance with absolute values may lead to misinterpretation of CBC data. Current Interpretive Data was last revised on 2017. Imm gran pct 2.5 % [facility] Comment: Interpretive Data Percent cell count reference ranges are not reported, since discordance with absolute values may lead to misinterpretation of CBC data. Current Interpretive Data was last revised on 2017. Lymphocyte pct 1.7 % [facility] Comment: Interpretive Data Percent cell count reference ranges are not reported, since discordance with absolute values may lead to misinterpretation of CBC data. Current Interpretive Data was last revised on 2017. Monocyte pct 4.7 % [facility] Comment: Interpretive Data Percent cell count reference ranges are not reported, since discordance with absolute values may lead to misinterpretation of CBC data. Current Interpretive Data was last revised on 2017. Eosinophil pct 0.3 % [facility] Comment: Interpretive Data Percent cell count reference ranges are not reported, since discordance with absolute values may lead to misinterpretation of CBC data. Current Interpretive Data was last revised on 2017. Basophil pct 0.0 % [facility] Comment: Interpretive Data Percent cell count reference ranges are not reported, since discordance with absolute values may lead to misinterpretation of CBC data. Current Interpretive Data was last revised on 2017. Blood 01/25/2024 5:07 AM ASSISTANT CASE MANAGER 01/25/2024 5:58 AM ASSISTANT CASE MANAGER Ayush Galvez MD LAB BLOOD ORDERABLES Final Result Performing Organization Address [facility] de Phone Number [facility] [place] [address] * Tacrolimus level trough (01/25/2024 5:07 AM ASSISTANT CASE MANAGER) [facility] Tacrolimus trough 7.3 ng/mL Comment: Interpretive Data Testing performed by liquid chromatography-tandem mass spectrometry. Therapeutic concentrations vary depending on type of transplanted organ and time elapsed since transplant. Typical trough concentrations range from 5-15 ng/mL. This test was developed and its performance characteristics determined by the [facility] consistent with CLIA requirements. This test has not been cleared or approved by the [place] Food and Drug administration. Current interpretive data last reviewed 2019. Blood 01/25/2024 5:07 AM ASSISTANT CASE MANAGER 01/25/2024 5:58 AM ASSISTANT CASE MANAGER Ayush Galvez MD LAB BLOOD ORDERABLES Final Result Performing Organization Address [facility] de Phone Number [facility] [place] [address] * (ABNORMAL) CBC with auto differential (01/25/2024 5:07 AM ASSISTANT CASE MANAGER) [facility] WBC 3.6(L) 3.8 - 9.9 K/cumm Hgb 8.1(L) 13.0 - 17.5 g/dL [facility] Hct 24.1(L) 38.9 - 50.3 % [facility] Plt 92(L) 150 - 400 K/cumm [facility] MPV 11.0 9.1 - 12.3 fL [facility] RBC 2.55(L) 4.30 - 5.80 M/cumm [facility] MCV 94.5 81.3 - 96.4 fL [facility] MCH 31.8 27.1 - 33.3 pg [facility] MCHC 33.6 32.3 - 35.7 g/dL [facility] RDW CV 17.2(H) 11.1 - 14.9 % [facility] RDW SD 59.2(H) 35.7 - 48.1 fL [facility] NRBC abs 0.03(H) 0.00 - 0.01 K/cumm [facility] Blood 01/25/2024 5:07 AM ASSISTANT CASE MANAGER 01/25/2024 5:58 AM ASSISTANT CASE MANAGER Ayush Galvez MD LAB BLOOD ORDERABLES Final Result Performing Organization Address City/[facility] Co de Phone Number [facility] [place] [address] * Magnesium (01/25/2024 5:07 AM ASSISTANT CASE MANAGER) [facility] Magnesium 2.3 1.4 - 2.5 mg/dL Blood 01/25/2024 5:07 AM ASSISTANT CASE MANAGER 01/25/2024 5:25 AM ASSISTANT CASE MANAGER Ayush Galvez MD LAB BLOOD ORDERABLES Final Result Performing Organization Address [facility] de Phone Number [facility] [place] [address] * (ABNORMAL) Renal function panel (01/25/2024 5:07 AM ASSISTANT CASE MANAGER) [facility] Sodium 134(L) 135 - 145 mmol/L Potassium, pl 4.0 3.3 - 4.9 mmol/L [facility] Chloride 91(L) 97 - 110 mmol/L [facility] CO2 30 22 - 32 mmol/L [facility] Anion gap 13 2 - 15 mmol/L [facility] BUN 51(H) 6 - 25 mg/dL [facility] Creatinine 5.63(H) 0.80 - 1.30 mg/dL [facility] Glucose 152 70 - 199 mg/dL [facility] Comment: Interpretive Data Fasting glucose >/= 126 [...] 2022. Calcium 9.4 8.5 - 10.3 mg/dL [facility] Phosphorus, pl 7.5(H) 2.3 - 4.5 mg/dL [facility] Albumin 3.2(L) 3.5 - 5.0 g/dL [facility] Blood 01/25/2024 5:07 AM ASSISTANT CASE MANAGER 01/25/2024 5:25 AM ASSISTANT CASE MANAGER Ayush Galvez MD LAB BLOOD ORDERABLES Final Result Performing Organization Address [facility] Phone Number [facility] [place] [address] * POCT glucose (01/24/2024 8:58 PM ASSISTANT CASE MANAGER) Glucose, POC 195 70 - 199 mg/dL Blood 01/24/2024 8:58 PM ASSISTANT CASE MANAGER 01/24/2024 8:58 PM ASSISTANT CASE MANAGER Ayush Galvez MD LAB POCT ORDERABLES - DEVIC E Final Result Performing Organization Address [facility] de Phone Number [facility] [place] [address] * POCT glucose (01/24/2024 4:57 PM ASSISTANT CASE MANAGER) Glucose, POC 189 70 - 199 mg/dL Blood 01/24/2024 4:57 PM ASSISTANT CASE MANAGER 01/24/2024 4:57 PM ASSISTANT CASE MANAGER Ayush Galvez MD LAB POCT ORDERABLES - DEVIC E Final Result Performing Organization Address [facility] de Phone Number [facility] [place] [address] * (ABNORMAL) POCT glucose (01/24/2024 11:41 AM ASSISTANT CASE MANAGER) Glucose, POC 219(H) 70 - 199 mg/dL Blood 01/24/2024 11:4 1 AM ASSISTANT CASE MANAGER 01/24/2024 11:41 AM ASSISTANT CASE MANAGER Ayush Galvez MD LAB POCT ORDERABLES - DEVIC E Final Result Performing Organization Address [facility] [place] [address] * POCT glucose (01/24/2024 7:32 AM ASSISTANT CASE MANAGER) [facility] Glucose, POC 187 70 - 199 mg/dL Blood 01/24/2024 7:32 AM ASSISTANT CASE MANAGER 01/24/2024 7:32 AM ASSISTANT CASE MANAGER Ayush Galvez MD LAB POCT ORDERABLES - DEVIC E Final Result Performing Organization Address City/[facility] Co de Phone Number [facility] [place] [address] * (ABNORMAL) eGFR (01/24/2024 5:06 AM ASSISTANT CASE MANAGER) [facility] eGFR 15(L) >=60 mL/min/1. 73 m2 [...] last reviewed 2020. Blood 01/24/2024 5:06 AM ASSISTANT CASE MANAGER 01/24/2024 5:24 AM ASSISTANT CASE MANAGER us Ayush Galvez MD LAB BLOOD ORDERABLES Final Result [facility] [place] [address] * (ABNORMAL) Differential, auto (01/24/2024 5:06 AM ASSISTANT CASE MANAGER) Neutrophil abs 5.8 1.5 - 6.5 K/cumm Imm gran abs 0.0 0.0 - 0.1 K/cumm [facility] Lymphocyte abs 0.1(L) 0.8 - 3.3 K/cumm [facility] Monocyte abs 0.3 0.2 - 0.8 K/cumm [facility] Eosinophil abs 0.0 0.0 - 0.5 K/cumm [facility] Basophil abs 0.0 0.0 - 0.1 K/cumm [facility] Neutrophil pct 93.5 % [facility] Comment: Interpretive Data Percent cell count reference ranges are not reported, since discordance with absolute values may lead to misinterpretation of CBC data. Current Interpretive Data was last revised on 2017. Imm gran pct 0.6 % [facility] Comment: Interpretive Data Percent cell count reference ranges are not reported, since discordance with absolute values may lead to misinterpretation of CBC data. Current Interpretive Data was last revised on 2017. Lymphocyte pct 1.0 % [facility] Comment: Interpretive Data Percent cell count reference ranges are not reported, since discordance with absolute values may lead to misinterpretation of CBC data. Current Interpretive Data was last revised on 2017. Monocyte pct 4.7 % [facility] Comment: Interpretive Data Percent cell count reference ranges are not reported, since discordance with absolute values may lead to misinterpretation of CBC data. Current Interpretive Data was last revised on 2017. Eosinophil pct 0.2 % [facility] Comment: Interpretive Data Percent cell count reference ranges are not reported, since discordance with absolute values may lead to misinterpretation of CBC data. Current Interpretive Data was last revised on 2017. Basophil pct 0.0 % [facility] Comment: Interpretive Data Percent cell count reference ranges are not reported, since discordance with absolute values may lead to misinterpretation of CBC data. Current Interpretive Data was last revised on 2017. Blood 01/24/2024 5:06 AM ASSISTANT CASE MANAGER 01/24/2024 6:39 AM ASSISTANT CASE MANAGER Ayush Galvez MD LAB BLOOD ORDERABLES Final Result Performing Organization Address [facility] de Phone Number [facility] [place] [address] * Tacrolimus level trough (01/24/2024 5:06 AM ASSISTANT CASE MANAGER) Pathologist [facility] Tacrolimus trough 9.4 ng/mL Comment: Interpretive Data Testing performed by liquid chromatography-tandem mass spectrometry. Therapeutic concentrations vary depending on type of transplanted organ and time elapsed since transplant. Typical trough concentrations range from 5-15 ng/mL. This test was developed and its performance characteristics determined by the [facility] consistent with CLIA requirements. This test has not been cleared or approved by the [place] Food and Drug administration. Current interpretive data last reviewed 2019. Blood 01/24/2024 5:06 AM ASSISTANT CASE MANAGER 01/24/2024 6:39 AM ASSISTANT CASE MANAGER Ayush Galvez MD LAB BLOOD ORDERABLES Final Result Performing Organization Address [facility] de Phone Number [facility] [place] [address] * (ABNORMAL) CBC with auto differential (01/24/2024 5:06 AM ASSISTANT CASE MANAGER) Pathologist [facility] WBC 6.2 3.8 - 9.9 K/cumm Hgb 8.2(L) 13.0 - 17.5 g/dL [facility] Hct 24.4(L) 38.9 - 50.3 % [facility] Plt 103(L) 150 - 400 K/cumm [facility] [facility] MPV 11.4 9.1 - 12.3 fL [facility] RBC 2.57(L) 4.30 - 5.80 M/cumm [facility] MCV 94.9 81.3 - 96.4 fL [facility] MCH 31.9 27.1 - 33.3 pg [facility] MCHC 33.6 32.3 - 35.7 g/dL [facility] RDW CV 17.7(H) 11.1 - 14.9 % [facility] RDW SD 62.0(H) 35.7 - 48.1 fL [facility] NRBC abs 0.02(H) 0.00 - 0.01 K/cumm [facility] Blood 01/24/2024 5:06 AM ASSISTANT CASE MANAGER 01/24/2024 6:39 AM ASSISTANT CASE MANAGER Ayush Galvez MD LAB BLOOD ORDERABLES Final Result Performing Organization Address City/[facility] Co de Phone Number [facility] [place] [address] * Magnesium (01/24/2024 5:06 AM ASSISTANT CASE MANAGER) [facility] Magnesium 2.2 1.4 - 2.5 mg/dL Blood 01/24/2024 5:06 AM ASSISTANT CASE MANAGER 01/24/2024 5:24 AM ASSISTANT CASE MANAGER Ayush Galvez MD LAB BLOOD ORDERABLES Final Result Performing Organization Address [facility] Co de Phone Number [facility] [place] [address] * (ABNORMAL) Renal function panel (01/24/2024 5:06 AM ASSISTANT CASE MANAGER) Sodium 137 135 - 145 mmol/L Potassium, pl 3.9 3.3 - 4.9 mmol/L [facility] Chloride 92(L) 97 - 110 mmol/L [facility] CO2 28 22 - 32 mmol/L [facility] Anion gap 17(H) 2 - 15 mmol/L [facility] BUN 36(H) 6 - 25 mg/dL [facility] Creatinine 4.25(H) 0.80 - 1.30 mg/dL [facility] Glucose 206(H) 70 - 199 mg/dL [facility] Comment: Interpretive Data Fasting glucose >/= 126 [...] 2022. Calcium 9.1 8.5 - 10.3 mg/dL [facility] Phosphorus, pl 5.6(H) 2.3 - 4.5 mg/dL [facility] Comment:Repeated on Dilution Albumin 3.2(L) 3.5 - 5.0 g/dL [facility] Blood 01/24/2024 5:06 AM ASSISTANT CASE MANAGER 01/24/2024 5:24 AM ASSISTANT CASE MANAGER us Ayush Galvez MD LAB BLOOD ORDERABLES Final Result [facility] [place] [address] * (ABNORMAL) POCT glucose (01/23/2024 9:19 PM ASSISTANT CASE MANAGER) Glucose, POC 215(H) 70 - 199 mg/dL Blood 01/23/2024 9:19 PM ASSISTANT CASE MANAGER 01/23/2024 9:19 PM ASSISTANT CASE MANAGER us Ayush Galvez MD LAB POCT ORDERABLES - DEVIC E Final Result Performing Organization Address [facility] de Phone Number [facility] [place] [address] * (ABNORMAL) POCT glucose (01/23/2024 5:44 PM ASSISTANT CASE MANAGER) Glucose, POC 232(H) 70 - 199 mg/dL Blood 01/23/2024 5:44 PM ASSISTANT CASE MANAGER 01/23/2024 5:44 PM ASSISTANT CASE MANAGER us Ayush Galvez MD LAB POCT ORDERABLES - DEVIC E Final Result Performing Organization Address [facility] de Phone Number [facility] [place] [address] * (ABNORMAL) POCT glucose (01/23/2024 12:11 PM ASSISTANT CASE MANAGER) Glucose, POC 217(H) 70 - 199 mg/dL Blood 01/23/2024 12:1 1 PM ASSISTANT CASE MANAGER 01/23/2024 12:11 PM ASSISTANT CASE MANAGER us Ayush Galvez MD LAB POCT ORDERABLES - DEVIC E Final Result Performing Organization Address [facility] de Phone Number [facility] [place] [address] * (ABNORMAL) POCT glucose (01/23/2024 8:18 AM ASSISTANT CASE MANAGER) Glucose, POC 202(H) 70 - 199 mg/dL Blood 01/23/2024 8:18 AM ASSISTANT CASE MANAGER 01/23/2024 8:18 AM ASSISTANT CASE MANAGER us Ayush Galvez MD LAB POCT ORDERABLES - DEVIC E Final Result Performing Organization Address [facility]/ZIP Co de Phone Number [facility] [place] [address] * (ABNORMAL) Troponin I high-sensitivity (01/23/2024 6:12 AM ASSISTANT CASE MANAGER) Trop I hs 1,204(C) <=35 ng/L Comment: Previous critical value noted within 48 hours ago. Interpretive Data For further hscTnI resources including the diagnostic algorithm and an aid in interpretation, copy and paste this link: [email or web address]/[email or web address] Current Interpretive Data last revised 2019. Blood 01/23/2024 6:12 AM ASSISTANT CASE MANAGER 01/23/2024 6:31 AM ASSISTANT CASE MANAGER Ayush Galvez MD LAB BLOOD ORDERABLES Final Result Performing Organization Address [facility] de Phone Number [facility] [place] [address] * (ABNORMAL) eGFR (01/23/2024 2:42 AM ASSISTANT CASE MANAGER) eGFR 11(L) >=60 mL/min/1. 73 m2 Comment: [...] last reviewed 2020. Blood 01/23/2024 2:42 AM ASSISTANT CASE MANAGER 01/23/2024 3:02 AM ASSISTANT CASE MANAGER us Ayush Galvez MD LAB BLOOD ORDERABLES Final Result [facility] [place] [address] * (ABNORMAL) Differential, auto (01/23/2024 2:42 AM ASSISTANT CASE MANAGER) Neutrophil abs 6.7(H) 1.5 - 6.5 K/cumm Imm gran abs 0.1 0.0 - 0.1 K/cumm [facility] Lymphocyte abs 0.1(L) 0.8 - 3.3 K/cumm [facility] Monocyte abs 0.1(L) 0.2 - 0.8 K/cumm [facility] Eosinophil abs 0.0 0.0 - 0.5 K/cumm [facility] Basophil abs 0.0 0.0 - 0.1 K/cumm [facility] Neutrophil pct 96.4 % [facility] Comment: Interpretive Data Percent cell count reference ranges are not reported, since discordance with absolute values may lead to misinterpretation of CBC data. Current Interpretive Data was last revised on 2017. Imm gran pct 0.7 % [facility] Comment: Interpretive Data Percent cell count reference ranges are not reported, since discordance with absolute values may lead to misinterpretation of CBC data. Current Interpretive Data was last revised on 2017. Lymphocyte pct 0.9 % [facility] Comment: Interpretive Data Percent cell count reference ranges are not reported, since discordance with absolute values may lead to misinterpretation of CBC data. Current Interpretive Data was last revised on 2017. Monocyte pct 2.0 % [facility] Comment: Interpretive Data Percent cell count reference ranges are not reported, since discordance with absolute values may lead to misinterpretation of CBC data. Current Interpretive Data was last revised on 2017. Eosinophil pct 0.0 % [facility] Comment: Interpretive Data Percent cell count reference ranges are not reported, since discordance with absolute values may lead to misinterpretation of CBC data. Current Interpretive Data was last revised on 2017. Basophil pct 0.0 % [facility] Comment: Interpretive Data Percent cell count reference ranges are not reported, since discordance with absolute values may lead to misinterpretation of CBC data. Current Interpretive Data was last revised on 2017. Blood 01/23/2024 2:42 AM ASSISTANT CASE MANAGER 01/23/2024 3:02 AM ASSISTANT CASE MANAGER Ayush Galvez MD LAB BLOOD ORDERABLES Final Result Performing Organization Address [facility] de Phone Number [facility] [place] [address] * Tacrolimus level trough (01/23/2024 2:42 AM ASSISTANT CASE MANAGER) [facility] Tacrolimus trough 7.8 ng/mL Comment: Interpretive Data Testing performed by liquid chromatography-tandem mass spectrometry. Therapeutic concentrations vary depending on type of transplanted organ and time elapsed since transplant. Typical trough concentrations range from 5-15 ng/mL. This test was developed and its performance characteristics determined by the [facility] consistent with CLIA requirements. This test has not been cleared or approved by the [place] Food and Drug administration. Current interpretive data last reviewed 2019. Blood 01/23/2024 2:42 AM ASSISTANT CASE MANAGER 01/23/2024 3:02 AM ASSISTANT CASE MANAGER Ayush Galvez MD LAB BLOOD ORDERABLES Final Result Performing Organization Address [facility] de Phone Number [facility] [place] [address] * (ABNORMAL) CBC with auto differential (01/23/2024 2:42 AM ASSISTANT CASE MANAGER) Pathologist [facility] WBC 7.0 3.8 - 9.9 K/cumm Hgb 8.8(L) 13.0 - 17.5 g/dL [facility] Hct 26.4(L) 38.9 - 50.3 % [facility] Plt 89(L) 150 - 400 K/cumm [facility] MPV 11.1 9.1 - 12.3 fL [facility] RBC 2.77(L) 4.30 - 5.80 M/cumm [facility] MCV 95.3 81.3 - 96.4 fL [facility] MCH 31.8 27.1 - 33.3 pg [facility] MCHC 33.3 32.3 - 35.7 g/dL [facility] RDW CV 18.2(H) 11.1 - 14.9 % [facility] RDW SD 63.3(H) 35.7 - 48.1 fL [facility] NRBC abs 0.00 0.00 - 0.01 K/cumm [facility] Blood 01/23/2024 2:42 AM ASSISTANT CASE MANAGER 01/23/2024 3:02 AM ASSISTANT CASE MANAGER Ayush Galvez MD LAB BLOOD ORDERABLES Final Result Performing Organization Address [facility] Co de Phone Number [facility] [place] [address] * Magnesium (01/23/2024 2:42 AM ASSISTANT CASE MANAGER) [facility] Magnesium 2.5 1.4 - 2.5 mg/dL Blood 01/23/2024 2:42 AM ASSISTANT CASE MANAGER 01/23/2024 3:02 AM ASSISTANT CASE MANAGER Ayush Galvez MD LAB BLOOD ORDERABLES Final Result Performing Organization Address [facility] Co de Phone Number [facility] [place] [address] * (ABNORMAL) Renal function panel (01/23/2024 2:42 AM ASSISTANT CASE MANAGER) Pathologist [facility] Sodium 135 135 - 145 mmol/L Potassium, pl 4.7 3.3 - 4.9 mmol/L [facility] Chloride 95(L) 97 - 110 mmol/L [facility] CO2 26 22 - 32 mmol/L [facility] Anion gap 14 2 - 15 mmol/L [facility] BUN 46(H) 6 - 25 mg/dL [facility] Creatinine 5.52(H) 0.80 - 1.30 mg/dL [facility] Glucose 178 70 - 199 mg/dL [facility] Comment: Interpretive Data Fasting glucose >/= 126 [...] 2022. Calcium 9.1 8.5 - 10.3 mg/dL [facility] Phosphorus, pl 7.8(H) 2.3 - 4.5 mg/dL [facility] Albumin 3.3(L) 3.5 - 5.0 g/dL [facility] Blood 01/23/2024 2:42 AM ASSISTANT CASE MANAGER 01/23/2024 3:02 AM ASSISTANT CASE MANAGER Ayush Galvez MD LAB BLOOD ORDERABLES Final Result [facility] [place] [address] * (ABNORMAL) Troponin I high-sensitivity (01/23/2024 2:41 AM ASSISTANT CASE MANAGER) Trop I hs 1,365(C) <=35 ng/L Comment: Previous critical value noted within 48 hours ago. Interpretive Data For [facility] resources including the diagnostic algorithm and an aid in interpretation, copy and paste this link: [email or web address]/[email or web address] Current Interpretive Data last revised 2019. Blood 01/23/2024 2:41 AM ASSISTANT CASE MANAGER 01/23/2024 3:14 AM ASSISTANT CASE MANAGER Ayush Galvez MD LAB BLOOD ORDERABLES Final Result [facility] [place] [address] * ECG 12 lead (01/23/2024 1:02 AM ASSISTANT CASE MANAGER) Ventricular Rate EKG/Min 71 BPM [facility] Atrial Rate 250 BPM [facility] QRS-Interval (MSEC) 134 ms [facility] QT-Interval (MSEC) 436 ms [facility] QTc 473 ms [facility] R [place] 8 degrees [facility] T [place] 248 degrees [facility] Diagnosis Atrial fibrillation Non-specific intra-ventricula r conduction block T wave abnormality, consider inferolateral ischemia Abnormal ECG When compared with ECG of 22-JAN-2024 15:39, (unconfirmed) No significant change was found Confirmed by JENNIFER BYRD M.D ([id number]) on 01/25/2024 3:00:07 PM [facility] 01/23/2024 1:02 AM ASSISTANT CASE MANAGER 01/25/2024 3:00 PM ASSISTANT CASE MANAGER Result [facility] Ayush Galvez MD ECG ORDERABLES Final Resul t Performing Organization Address [facility] Co de Phone Number [facility] * (ABNORMAL) Troponin I high-sensitivity (01/22/2024 11:14 PM ASSISTANT CASE MANAGER) Pathologist [facility] Trop I hs 1,127(C) <=35 ng/L Comment: Previous critical value noted within 48 hours ago. Interpretive Data For further hscTnI resources including the diagnostic algorithm and an aid in interpretation, copy and paste this link: [email or web address]/[email or web address] Current Interpretive Data last revised 2019. Blood 01/22/2024 11:1 4 PM ASSISTANT CASE MANAGER 01/22/2024 11:57 PM ASSISTANT CASE MANAGER Result [facility] Ayush Galvez MD LAB BLOOD ORDERABLES Final Result Performing Organization Address [facility] de Phone Number [facility] [place] [address] * (ABNORMAL) Troponin I high-sensitivity (01/22/2024 11:14 PM ASSISTANT CASE MANAGER) Pathologist [facility] Trop I hs 1,220(C) <=35 ng/L Comment: Previous critical value noted within 48 hours ago. Interpretive Data For further hscTnI resources including the diagnostic algorithm and an aid in interpretation, copy and paste this link: [email or web address]/[email or web address] Current Interpretive Data last revised 2019. Blood 01/22/2024 11:1 4 PM ASSISTANT CASE MANAGER 01/22/2024 11:56 PM ASSISTANT CASE MANAGER Ayush Galvez MD LAB BLOOD ORDERABLES Final Result Performing Organization Address [facility] de Phone Number [facility] [place] [address] * (ABNORMAL) Differential, auto (01/22/2024 11:14 PM ASSISTANT CASE MANAGER) [facility] Neutrophil abs 7.1(H) 1.5 - 6.5 K/cumm Imm gran abs 0.0 0.0 - 0.1 K/cumm [facility] Lymphocyte abs 0.0(L) 0.8 - 3.3 K/cumm [facility] Monocyte abs 0.2 0.2 - 0.8 K/cumm [facility] Eosinophil abs 0.0 0.0 - 0.5 K/cumm [facility] Basophil abs 0.0 0.0 - 0.1 K/cumm [facility] Neutrophil pct 96.8 % [facility] Comment: Interpretive Data Percent cell count reference ranges are not reported, since discordance with absolute values may lead to misinterpretation of CBC data. Current Interpretive Data was last revised on 2017. Imm gran pct 0.5 % [facility] Comment: Interpretive Data Percent cell count reference ranges are not reported, since discordance with absolute values may lead to misinterpretation of CBC data. Current Interpretive Data was last revised on 2017. Lymphocyte pct 0.5 % [facility] Comment: Interpretive Data Percent cell count reference ranges are not reported, since discordance with absolute values may lead to misinterpretation of CBC data. Current Interpretive Data was last revised on 2017. Monocyte pct 2.2 % [facility] Comment: Interpretive Data Percent cell count reference ranges are not reported, since discordance with absolute values may lead to misinterpretation of CBC data. Current Interpretive Data was last revised on 2017. Eosinophil pct 0.0 % [facility] Comment: Interpretive Data Percent cell count reference ranges are not reported, since discordance with absolute values may lead to misinterpretation of CBC data. Current Interpretive Data was last revised on 2017. Basophil pct 0.0 % [facility] Comment: Interpretive Data Percent cell count reference ranges are not reported, since discordance with absolute values may lead to misinterpretation of CBC data. Current Interpretive Data was last revised on 2017. Blood 01/22/2024 11:1 4 PM ASSISTANT CASE MANAGER 01/22/2024 11:56 PM ASSISTANT CASE MANAGER Larry Travis MD LAB BLOOD ORDERABLE S Final Result [facility] [place] [address] * Tacrolimus level trough (01/22/2024 11:14 PM ASSISTANT CASE MANAGER) Tacrolimus trough 11.3 ng/mL Comment: reviewed Interpretive Data Testing performed by liquid chromatography-tandem mass spectrometry. Therapeutic concentrations vary depending on type of transplanted organ and time elapsed since transplant. Typical trough concentrations range from 5-15 ng/mL. This test was developed and its performance characteristics determined by the [facility] consistent with CLIA requirements. This test has not been cleared or approved by the [place] Food and Drug administration. Current interpretive data last reviewed 2019. Blood 01/22/2024 11:1 4 PM ASSISTANT CASE MANAGER 01/22/2024 11:57 PM ASSISTANT CASE MANAGER Ayush Galvez MD LAB BLOOD ORDERABLES Final Result [facility] [place] [address] * (ABNORMAL) CBC with auto differential (01/22/2024 11:14 PM ASSISTANT CASE MANAGER) WBC 7.4 3.8 - 9.9 K/cumm Hgb 8.5(L) 13.0 - 17.5 g/dL [facility] Hct 25.8(L) 38.9 - 50.3 % [facility] Plt 83(L) 150 - 400 K/cumm [facility] MPV 10.5 9.1 - 12.3 fL [facility] RBC 2.69(L) 4.30 - 5.80 M/cumm [facility] MCV 95.9 81.3 - 96.4 fL [facility] MCH 31.6 27.1 - 33.3 pg [facility] MCHC 32.9 32.3 - 35.7 g/dL [facility] RDW CV 17.6(H) 11.1 - 14.9 % [facility] RDW SD 61.2(H) 35.7 - 48.1 fL [facility] NRBC abs 0.00 0.00 - 0.01 K/cumm [facility] Blood 01/22/2024 11:1 4 PM ASSISTANT CASE MANAGER 01/22/2024 11:56 PM ASSISTANT CASE MANAGER Ayush Galvez MD LAB BLOOD ORDERABLES Final Result [facility] One [facility] [place] [address] * Type and screen (01/22/2024 11:14 PM ASSISTANT CASE MANAGER) ABO Rh O Negative [place], indirect Negative [facility] Blood 01/22/2024 11:1 4 PM ASSISTANT CASE MANAGER 01/23/2024 12:05 AM ASSISTANT CASE MANAGER Narrative [facility] - 01/23/2024 1:02 AM ASSISTANT CASE MANAGER Has the patient had Daratumumab or Isatuximab in the past 6 months?->Unknown Ayush Galvez MD LAB BLOOD BANK TEST ORDERAB LES Final Result Performing Organization Address City/[facility]/ZIP Co de Phone Number [facility] [place] [address] * Transfuse RBC (01/22/2024 9:29 PM ASSISTANT CASE MANAGER) Blood Ayush Galvez MD BLOOD TRANSFUSION ORDERABLE S Final Result Performing Organization Address [facility] Co de Phone Number [facility] [place] [address] * XR Chest 1 View (01/22/2024 8:41 PM ASSISTANT CASE MANAGER) Anatomical Region Laterality Modality Body, Chest N/A Computed Radiogr aphy 01/23/2024 7:41 AM ASSISTANT CASE MANAGER Impressions 01/23/2024 7:52 AM ASSISTANT CASE MANAGER Comparison is made to chest radiograph dated [...] Erinn Morataya M.D. Narrative 01/23/2024 7:52 AM ASSISTANT CASE MANAGER EXAMINATION: 1 view chest radiograph Procedure Note [...] ult * POCT glucose (01/22/2024 8:07 PM ASSISTANT CASE MANAGER) Glucose, POC 163 70 - 199 mg/dL Blood 01/22/2024 8:07 PM ASSISTANT CASE MANAGER 01/22/2024 8:07 PM ASSISTANT CASE MANAGER Ayush Galvez MD LAB POCT ORDERABLES - DEVIC E Final Result Performing Organization Address [facility] de Phone Number [facility] [place] [address] * POCT glucose (01/22/2024 6:42 PM ASSISTANT CASE MANAGER) [facility] Signature Glucose, POC 173 70 - 199 mg/dL Blood 01/22/2024 6:42 PM ASSISTANT CASE MANAGER 01/22/2024 6:42 PM ASSISTANT CASE MANAGER Ayush Galvez MD LAB POCT ORDERABLES - DEVIC E Final Result Performing Organization Address [facility] de Phone Number [facility] [place] [address] * (ABNORMAL) Troponin I high-sensitivity 6-hour (01/22/2024 6:40 PM ASSISTANT CASE MANAGER) Trop I hs 842(C) <=35 ng/L Comment: Previous critical value noted within 48 hours ago. Interpretive Data For further [facility] resources including the diagnostic algorithm and an aid in interpretation, copy and paste this link: [email or web address]/[email or web address] Current Interpretive Data last revised 2019. Trop I hs pct delta 46(C) % [facility] Comment:Previous critical va lue noted within 48 hours ago. Trop I hs interp Significa nt(C) [facility] Comment:Previous critical va lue noted within 48 hours ago. Blood 01/22/2024 6:40 PM ASSISTANT CASE MANAGER 01/22/2024 6:54 PM ASSISTANT CASE MANAGER us Sushma Chino MD LAB BLOOD ORDERABLES Final Resu lt [facility] One [facility] [place] [address] * TRANSTHORACIC ECHO (TTE) COMPLETE W DOPPLER/CF W CONTRAST (01/22/2024 5:31 PM ASSISTANT CASE MANAGER) LV EF 45 % CARDIOREPORT Anatomical Region Laterality Modality Ultrasound 01/22/2024 4:15 PM ASSISTANT CASE MANAGER Narrative 01/22/2024 5:57 PM ASSISTANT CASE MANAGER Patient name: Ramone Coleman Date of test: 01/22/2024 Type of test: TTE w/Doppler Hospital #: 0 Date of : 1960 (M) Net Maker: Hamida Wilkins SAIGE Referring Physician: AYUSH GALVEZ MD Contrast Agent: 0.9 ml Optison Administered, (2.1 ml wasted). Contrast Administered by: SAURAV [id number] Supervised/Interpreted by: Gamalile Etienne MD Diagnosis: Location: [facility] Reason for test: [id number] [place] (NSTEMI) MV Structure: Normal, MV Motion: Normal, [...] 2=Hypo 3=Akinetic 4=Dyskin./Aneurysm 0=Not visualized) Parasternal Long [place]:MAS=2 BAS=2 MIL=2 HARINDER=2 Parasternal Short [place]:MAS=2 MIS=2 NH=3 MIL=2 MAL=2 MA=2 Apical 4 Chambers:=2 MIS=2 BIS=2 BAL=2 MAL=2 AL=2 AC=2 Apical 2 Chambers:AI=2 NH=3 BI=2 BA=2 MA=2 AA=2 AC=2 LV Global Longitudinal Strain: RV Global Longitudinal Strain: LV Function: Mild Global reduction in LV Ejection Fraction (EF= 41-51%) RV Function: mild to moderate global hypokinesis Septal Motion: Pericardial Effusion: minimal Atrial Septum: Normal DOPPLER/COLOR FLOW DOPPLER RESULTS: Diastolic Function: indeterminate Tricuspid Valve: mild to mod TR Pulmonic Valve: Mild AZ AV Regurgitation: No AR seen AV Stenosis: [...] no MS, mild to mod TR, Mild AZ. Diastolic function: indeterminate. LVOT VTI 9.9 cm [...] mild MR. Mild to moderate TR. Mild AZ. Est. PASP 30-35 mm Hg. Minimal pericardial effusion. Compared with 10/29/20, there has been a significant decrease in LV function. Confirmed on 01/22/2024 - 17:57:22 by Gamaliel Etienne MD By signing this report, the attending program production specialist certifies that he or she has personally supervised and interpreted the echocardiogram and has reviewed and or edited and agrees with the written comments contained within the report. Procedure Note Gamaliel Etienne MD - 01/22/2024 Patient name: Ramone Coleman Date of test: 01/22/2024 Type of test: TTE w/Doppler Hospital #: [id number] Date of : 1960 (M) Net Maker: Hamida Wilkins SAIGE Referring Physician: AYUSH GALVEZ MD Contrast Agent: 0.9 ml Optison Administered, (2.1 ml wasted). Contrast Administered by: SAURAV [id number] Supervised/Interpreted by: Gamaliel Etienne MD Diagnosis: Location: [facility] Reason for test: [id number] [place] (NSTEMI) MV Structure: Normal, MV Motion: Normal, [...] 2=Hypo 3=Akinetic 4=Dyskin./Aneurysm 0=Not visualized) Parasternal Long [place]:MAS=2 BAS=2 MIL=2 HARINDER=2 Parasternal Short [place]:MAS=2 MIS=2 NH=3 MIL=2 MAL=2 MA=2 Apical 4 Chambers:=2 MIS=2 BIS=2 BAL=2 MAL=2 AL=2 AC=2 Apical 2 Chambers:AI=2 NH=3 BI=2 BA=2 MA=2 AA=2 AC=2 LV Global Longitudinal Strain: RV Global Longitudinal Strain: LV Function: Mild Global reduction in LV Ejection Fraction (EF= 41-51%) RV Function: mild to moderate global hypokinesis Septal Motion: Pericardial Effusion: minimal Atrial Septum: Normal DOPPLER/COLOR FLOW DOPPLER RESULTS: Diastolic Function: indeterminate Tricuspid Valve: mild to mod TR Pulmonic Valve: Mild AZ AV Regurgitation: No AR seen AV Stenosis: [...] no MS, mild to mod TR, Mild AZ. Diastolic function: indeterminate. LVOT VTI 9.9 cm [...] mild MR. Mild to moderate TR. Mild AZ. Est. PASP 30-35 mm Hg. Minimal pericardial effusion. Compared with 10/29/20, there has been a significant decrease in LV function. Confirmed on 01/22/2024 - 17:57:22 by Gamaliel Etienne MD By signing this report, the attending program production specialist certifies that he or she has personally supervised and interpreted the echocardiogram and has reviewed and or edited and agrees with the written comments contained within the report. us Ayush Galvez MD CV ECHO PROCEDURES Final Re sult * (ABNORMAL) Troponin I high-sensitivity 4-hour (01/22/2024 4:14 PM ASSISTANT CASE MANAGER) Trop I hs 738(C) <=35 ng/L Comment: Previous critical value noted within 48 hours ago. Interpretive Data For further hscTnI resources including the diagnostic algorithm and an aid in interpretation, copy and paste this link: https://bjhlab.testcatalog.org/show/[email or web address] Current Interpretive Data last revised 2019. Trop I hs pct delta 28(C) % [facility] Comment:Previous critical va lue noted within 48 hours ago. Trop I hs interp Significa nt(C) [facility] Comment:Previous critical va lue noted within 48 hours ago. Blood 01/22/2024 4:14 PM ASSISTANT CASE MANAGER 01/22/2024 4:28 PM ASSISTANT CASE MANAGER us Sushma Chino MD LAB BLOOD ORDERABLES Final Resu lt [facility] [place] [address] * Type and screen (01/22/2024 4:14 PM ASSISTANT CASE MANAGER) Kusum, indirect Negative ABO Rh O Negative [facility] Blood 01/22/2024 4:14 PM ASSISTANT CASE MANAGER 01/22/2024 4:25 PM ASSISTANT CASE MANAGER Narrative [facility] - 01/22/2024 5:19 PM ASSISTANT CASE MANAGER Has the patient had Daratumumab or Isatuximab in the past 6 months?->Unknown Rosalie Velásquez NP LAB BLOOD BANK TEST ORDERAB LES Final Result Performing Organization Address City/[facility]/ZIP Co de Phone Number [facility] [place] [address] * ECG 12 lead (01/22/2024 3:39 PM ASSISTANT CASE MANAGER) [facility] Ventricular Rate EKG/Min 93 BPM [facility] Atrial Rate 122 BPM [facility] QRS-Interval (MSEC) 134 ms [facility] QT-Interval (MSEC) 408 ms [facility] QTc 507 ms [facility] R [place] 11 degrees [facility] T [place] -33 degrees [facility] Diagnosis Atrial fibrillation Non-specific intra-ventricula r conduction block Nonspecific ST and T wave abnormality Abnormal ECG When compared with ECG of 22-JAN-2024 12:59, (unconfirmed) T wave inversion less evident in Anterolateral leads Confirmed by ERICK ARITA M.D ([id number]) on 01/24/2024 5:47:26 AM [facility] 01/22/2024 3:39 PM ASSISTANT CASE MANAGER 01/24/2024 5:47 AM ASSISTANT CASE MANAGER us Monster Harding MD ECG ORDERABLES Final R esult [facility] * (ABNORMAL) CBC without differential (01/22/2024 2:07 PM ASSISTANT CASE MANAGER) [facility] WBC 5.3 3.8 - 9.9 K/cumm Hgb 7.7(L) 13.0 - 17.5 g/dL [facility] Hct 23.1(L) 38.9 - 50.3 % [facility] Plt 75(L) 150 - 400 K/cumm [facility] MPV 10.5 9.1 - 12.3 fL [facility] RBC 2.35(L) 4.30 - 5.80 M/cumm [facility] MCV 98.3(H) 81.3 - 96.4 fL [facility] MCH 32.8 27.1 - 33.3 pg [facility] MCHC 33.3 32.3 - 35.7 g/dL [facility] RDW CV 15.5(H) 11.1 - 14.9 % [facility] RDW SD 54.8(H) 35.7 - 48.1 fL [facility] NRBC abs 0.00 0.00 - 0.01 K/cumm [facility] Blood 01/22/2024 2:07 PM ASSISTANT CASE MANAGER 01/22/2024 2:29 PM ASSISTANT CASE MANAGER us Ayush Galvez MD LAB BLOOD ORDERABLES Final Result [facility] [place] [address] * ECG 12 lead (01/22/2024 12:59 PM ASSISTANT CASE MANAGER) Pathologist [facility] Ventricular Rate EKG/Min 112 BPM [facility] Atrial Rate 120 BPM [facility] QRS-Interval (MSEC) 126 ms [facility] QT-Interval (MSEC) 296 ms [facility] QTc 404 ms [facility] R [place] 8 degrees [facility] T [place] 207 degrees [facility] Diagnosis Atrial fibrillation with rapid ventricular response Non-specific intra-ventricula r conduction block Nonspecific ST and T wave abnormality Abnormal ECG When compared with ECG of 21-JAN-2024 05:17, (unconfirmed) Atrial fibrillation has replaced Sinus rhythm ST now depressed in Anterior leads T wave inversion now evident in Anterolateral leads Confirmed by ERICK ARITA M.D ([id number]) on 01/24/2024 5:44:44 AM [facility] 01/22/2024 12:5 9 PM ASSISTANT CASE MANAGER 01/24/2024 5:44 AM ASSISTANT CASE MANAGER Sushma Chino MD ECG ORDERABLES Final Result [facility] * (ABNORMAL) Troponin I high-sensitivity series (baseline, 2hr, 4hr, 6hr) (01/22/2024 12:18 PM ASSISTANT CASE MANAGER) Trop I hs 575(C) <=35 ng/L Comment: Interpretive Data For further hscTnI resources including the diagnostic algorithm and an aid in interpretation, copy and paste this link: https://bjhlab.testcatalog.org/show/[email or web address] Current Interpretive Data last revised 2019. Blood 01/22/2024 12:1 8 PM ASSISTANT CASE MANAGER 01/22/2024 12:36 PM ASSISTANT CASE MANAGER Sushma Chino MD LAB BLOOD ORDERABLES Final Resu lt Performing Organization Address [facility] Co de Phone Number [facility] [place] [address] * Critical result callback Cardio chemistry (01/22/2024 12:18 PM ASSISTANT CASE MANAGER) Date Notified [id number] Time Notified 1341 [facility] Test name Trop I hs base [facility] Called/Read Back Clarissa Dominguez [facility] Credentials SAURAV [facility] Called By CHANDA MCKEON [facility] Blood 01/22/2024 12:1 8 PM ASSISTANT CASE MANAGER 01/22/2024 12:36 PM ASSISTANT CASE MANAGER Sushma Chino MD LAB BLOOD ORDERABLES Final Resu lt Performing Organization Address [facility] Co de Phone Number [facility] Department [place] [address] * (ABNORMAL) eGFR (01/22/2024 12:18 PM ASSISTANT CASE MANAGER) eGFR 13(L) >=60 mL/min/1. 73 m2 Comment: [...] reviewed 2020. Blood 01/22/2024 12:1 8 PM ASSISTANT CASE MANAGER 01/22/2024 12:36 PM ASSISTANT CASE MANAGER Sushma Chino MD LAB BLOOD ORDERABLES Final Resu lt [facility] Department of Laboratories [place], [place] [id number] * (ABNORMAL) Phosphorus (01/22/2024 12:18 PM ASSISTANT CASE MANAGER) Phosphorus, pl 5.8(H) 2.3 - 4.5 mg/dL Blood 01/22/2024 12:1 8 PM ASSISTANT CASE MANAGER 01/22/2024 12:36 PM ASSISTANT CASE MANAGER Sushma Chino MD LAB BLOOD ORDERABLES [facility] [place] [address] * Magnesium (01/22/2024 12:18 PM ASSISTANT CASE MANAGER) Magnesium 1.8 1.4 - 2.5 mg/dL Blood 01/22/2024 12:1 8 PM ASSISTANT CASE MANAGER 01/22/2024 12:36 PM ASSISTANT CASE MANAGER Sushma Chino MD LAB BLOOD ORDERABLES Final Resu lt [facility] Department [place] [address] * (ABNORMAL) Basic metabolic panel (01/22/2024 12:18 PM ASSISTANT CASE MANAGER) Pathologist [facility] Sodium 135 135 - 145 mmol/L Potassium, pl 4.0 3.3 - 4.9 mmol/L [facility] Chloride 94(L) 97 - 110 mmol/L [facility] CO2 26 22 - 32 mmol/L [facility] Anion gap 15 2 - 15 mmol/L [facility] BUN 33(H) 6 - 25 mg/dL [facility] Creatinine 4.67(H) 0.80 - 1.30 mg/dL [facility] Glucose 130 70 - 199 mg/dL [facility] Comment: Interpretive Data Fasting glucose >/= 126 [...] 2022. Calcium 8.6 8.5 - 10.3 mg/dL [facility] Blood 01/22/2024 12:1 8 PM ASSISTANT CASE MANAGER 01/22/2024 12:36 PM ASSISTANT CASE MANAGER Sushma Chino MD LAB BLOOD ORDERABLES Final Resu lt Performing Organization Address [facility]/ZIP Co de Phone Number [facility] Department [place] [address] * POCT glucose (01/22/2024 11:35 AM ASSISTANT CASE MANAGER) Glucose, POC 134 70 - 199 mg/dL Blood 01/22/2024 11:3 5 AM ASSISTANT CASE MANAGER 01/22/2024 11:35 AM ASSISTANT CASE MANAGER us Ayush Galvez MD LAB POCT ORDERABLES - DEVIC E Final Result Performing Organization Address City/State/ZIP Co sd Phone Number [facility] [place] [address] * XR Abdomen Ap 1 Vw (01/22/2024 10:29 AM ASSISTANT CASE MANAGER) Anatomical Region Laterality Modality Body, Abdomen N/A Computed Radiogr aphy 01/22/2024 10:3 9 AM ASSISTANT CASE MANAGER Impressions 01/22/2024 11:52 AM ASSISTANT CASE MANAGER A single view of the abdomen is [...] Mohsen Vallejo M.D. Narrative 01/22/2024 11:52 AM ASSISTANT CASE MANAGER EXAMINATION: Abdomen, one view. HISTORY: Abdominal closure [...] IMG XR PROCEDURES Final Re sult * AZ AN ELECTIVE ENDOTRACHEAL AIRWAY, AZ AN PROCEDURE PLACEHOLDER (01/22/2024 9:42 AM ASSISTANT CASE MANAGER) Narrative Nisa Patricia CRNA - 01/22/2024 9:42 AM ASSISTANT CASE MANAGER Nisa Patricia CRNA 01/22/2024 9:56 AM Airway [...] Final * (ABNORMAL) eGFR (01/22/2024 9:02 AM ASSISTANT CASE MANAGER) eGFR 13(L) >=60 mL/min/1. 73 m2 Comment: [...] last reviewed 2020. Blood 01/22/2024 9:02 AM ASSISTANT CASE MANAGER 01/22/2024 9:25 AM ASSISTANT CASE MANAGER us Mathieu Hayden MD LAB BLOOD ORDERABLES Final Result [facility] [place] [address] * (ABNORMAL) Basic metabolic panel (01/22/2024 9:02 AM ASSISTANT CASE MANAGER) Sodium 134(L) 135 - 145 mmol/L Potassium, pl 4.1 3.3 - 4.9 mmol/L [facility] Chloride 92(L) 97 - 110 mmol/L [facility] CO2 27 22 - 32 mmol/L [facility] Anion gap 15 2 - 15 mmol/L [facility] BUN 32(H) 6 - 25 mg/dL [facility] Creatinine 4.62(H) 0.80 - 1.30 mg/dL [facility] Glucose 168 70 - 199 mg/dL [facility] Comment: Interpretive Data Fasting glucose >/= 126 [...] 2022. Calcium 9.2 8.5 - 10.3 mg/dL [facility] Blood 01/22/2024 9:02 AM ASSISTANT CASE MANAGER 01/22/2024 9:25 AM ASSISTANT CASE MANAGER Mathieu Hayden MD LAB BLOOD ORDERABLES Final Result Performing Organization Address [facility] de Phone Number [facility] [place] [address] * POCT glucose (01/22/2024 9:01 AM ASSISTANT CASE MANAGER) Glucose, POC 177 70 - 199 mg/dL Blood 01/22/2024 9:01 AM ASSISTANT CASE MANAGER 01/22/2024 9:01 AM ASSISTANT CASE MANAGER Ayush Galvez MD LAB POCT ORDERABLES - DEVIC E Final Result Performing Organization Address [facility] de Phone Number [facility] [place] [address] * POCT glucose (01/22/2024 8:26 AM ASSISTANT CASE MANAGER) [facility] Glucose, POC 154 70 - 199 mg/dL Blood 01/22/2024 8:26 AM ASSISTANT CASE MANAGER 01/22/2024 8:26 AM ASSISTANT CASE MANAGER Result [facility] Ayush Galvez MD LAB POCT ORDERABLES - DEVIC E Final Result Performing Organization Address [facility] de Phone Number [facility] [place] [address] * (ABNORMAL) eGFR (01/22/2024 4:58 AM ASSISTANT CASE MANAGER) Pathologist [facility] eGFR 15(L) >=60 mL/min/1. 73 m2 Comment: [...] last reviewed 2020. Blood 01/22/2024 4:58 AM ASSISTANT CASE MANAGER 01/22/2024 5:46 AM ASSISTANT CASE MANAGER us Larry Travis MD LAB BLOOD ORDERABLE S Final Result [facility] Department [place] [address] * (ABNORMAL) Differential, auto (01/22/2024 4:58 AM ASSISTANT CASE MANAGER) Pathologist [facility] Neutrophil abs 5.8 1.5 - 6.5 K/cumm Imm gran abs 0.0 0.0 - 0.1 K/cumm [facility] Lymphocyte abs 0.0(L) 0.8 - 3.3 K/cumm [facility] Monocyte abs 0.2 0.2 - 0.8 K/cumm [facility] Eosinophil abs 0.0 0.0 - 0.5 K/cumm [facility] Basophil abs 0.0 0.0 - 0.1 K/cumm [facility] Neutrophil pct 96.0 % [facility] Comment: Interpretive Data Percent cell count reference ranges are not reported, since discordance with absolute values may lead to misinterpretation of CBC data. Current Interpretive Data was last revised on 2017. Imm gran pct 0.3 % [facility] Comment: Interpretive Data Percent cell count reference ranges are not reported, since discordance with absolute values may lead to misinterpretation of CBC data. Current Interpretive Data was last revised on 2017. Lymphocyte pct 0.7 % [facility] Comment: Interpretive Data Percent cell count reference ranges are not reported, since discordance with absolute values may lead to misinterpretation of CBC data. Current Interpretive Data was last revised on 2017. Monocyte pct 3.0 % [facility] Comment: Interpretive Data Percent cell count reference ranges are not reported, since discordance with absolute values may lead to misinterpretation of CBC data. Current Interpretive Data was last revised on 2017. Eosinophil pct 0.0 % [facility] Comment: Interpretive Data Percent cell count reference ranges are not reported, since discordance with absolute values may lead to misinterpretation of CBC data. Current Interpretive Data was last revised on 2017. Basophil pct 0.0 % [facility] Comment: Interpretive Data Percent cell count reference ranges are not reported, since discordance with absolute values may lead to misinterpretation of CBC data. Current Interpretive Data was last revised on 2017. Blood 01/22/2024 4:58 AM ASSISTANT CASE MANAGER 01/22/2024 5:45 AM ASSISTANT CASE MANAGER Larry Travis MD LAB BLOOD ORDERABLE S Final Result [facility] [place] [address] * Tacrolimus level trough (01/22/2024 4:58 AM ASSISTANT CASE MANAGER) [facility] Signature Tacrolimus trough 4.7 ng/mL Comment: Interpretive Data Testing performed by liquid chromatography-tandem mass spectrometry. Therapeutic concentrations vary depending on type of transplanted organ and time elapsed since transplant. Typical trough concentrations range from 5-15 ng/mL. This test was developed and its performance characteristics determined by the [facility] consistent with CLIA requirements. This test has not been cleared or approved by the [place] Food and Drug administration. Current interpretive data last reviewed 2019. Blood 01/22/2024 4:58 AM ASSISTANT CASE MANAGER 01/22/2024 5:46 AM ASSISTANT CASE MANAGER us Ayush Galvez MD LAB BLOOD ORDERABLES Final Result Performing Organization Address [facility] Co de Phone Number [facility] [place] [address] * (ABNORMAL) CBC with auto differential (01/22/2024 4:58 AM ASSISTANT CASE MANAGER) Pathologist [facility] WBC 6.0 3.8 - 9.9 K/cumm Hgb 8.2(L) 13.0 - 17.5 g/dL [facility] Hct 23.8(L) 38.9 - 50.3 % [facility] Plt 79(L) 150 - 400 K/cumm [facility] MPV 10.2 9.1 - 12.3 fL [facility] RBC 2.48(L) 4.30 - 5.80 M/cumm [facility] MCV 96.0 81.3 - 96.4 fL [facility] MCH 33.1 27.1 - 33.3 pg [facility] MCHC 34.5 32.3 - 35.7 g/dL [facility] RDW CV 15.3(H) 11.1 - 14.9 % [facility] RDW SD 53.1(H) 35.7 - 48.1 fL [facility] NRBC abs 0.00 0.00 - 0.01 K/cumm [facility] Blood 01/22/2024 4:58 AM ASSISTANT CASE MANAGER 01/22/2024 5:45 AM ASSISTANT CASE MANAGER Ayush Galvez MD LAB BLOOD ORDERABLES Final Result Performing Organization Address [facility]/ZIP Co de Phone Number [facility] [place] [address] * Magnesium (01/22/2024 4:58 AM ASSISTANT CASE MANAGER) Pathologist [facility] Magnesium 2.2 1.4 - 2.5 mg/dL Blood 01/22/2024 4:58 AM ASSISTANT CASE MANAGER 01/22/2024 5:46 AM ASSISTANT CASE MANAGER Ayush Galvez MD LAB BLOOD ORDERABLES Final Result Performing Organization Address [facility] Co de Phone Number [facility] [place] [address] * (ABNORMAL) Lactate dehydrogenase (LD) (01/22/2024 4:58 AM ASSISTANT CASE MANAGER) Pathologist [facility] Lactate dehydrogenase (LDH) 252(H) 100 - 250 Units/L Blood 01/22/2024 4:58 AM ASSISTANT CASE MANAGER 01/22/2024 5:46 AM ASSISTANT CASE MANAGER Ayush Galvez MD LAB BLOOD ORDERABLES Final Result Performing Organization Address [facility] de Phone Number [facility] [place] [address] * Haptoglobin (01/22/2024 4:58 AM ASSISTANT CASE MANAGER) [facility] Haptoglobin 116.0 30.0 - 200.0 mg/dL Blood 01/22/2024 4:58 AM ASSISTANT CASE MANAGER 01/22/2024 5:46 AM ASSISTANT CASE MANAGER Ayush Galvez MD LAB BLOOD ORDERABLES Final Result Performing Organization Address [facility] de Phone Number [facility] [place] [address] * (ABNORMAL) Renal function panel (01/22/2024 4:58 AM ASSISTANT CASE MANAGER) Sodium 134(L) 135 - 145 mmol/L Potassium, pl 4.4 3.3 - 4.9 mmol/L [facility] Chloride 93(L) 97 - 110 mmol/L [facility] CO2 30 22 - 32 mmol/L [facility] Anion gap 11 2 - 15 mmol/L [facility] BUN 29(H) 6 - 25 mg/dL [facility] Creatinine 4.19(H) 0.80 - 1.30 mg/dL [facility] Glucose 125 70 - 199 mg/dL [facility] Comment: Interpretive Data Fasting glucose >/= 126 [...] 2022. Calcium 9.2 8.5 - 10.3 mg/dL [facility] Phosphorus, pl 5.6(H) 2.3 - 4.5 mg/dL [facility] Albumin 3.4(L) 3.5 - 5.0 g/dL [facility] Blood 01/22/2024 4:58 AM ASSISTANT CASE MANAGER 01/22/2024 5:46 AM ASSISTANT CASE MANAGER Ayush Galvez MD LAB BLOOD ORDERABLES Final Result [facility] [place] [address] * (ABNORMAL) POCT glucose (01/21/2024 8:34 PM ASSISTANT CASE MANAGER) Glucose, POC 238(H) 70 - 199 mg/dL Blood 01/21/2024 8:34 PM ASSISTANT CASE MANAGER 01/21/2024 8:34 PM ASSISTANT CASE MANAGER Ayush Galvez MD LAB POCT ORDERABLES - DEVIC E Final Result [facility] [place] [address] * (ABNORMAL) POCT glucose (01/21/2024 6:37 PM ASSISTANT CASE MANAGER) Glucose, POC 202(H) 70 - 199 mg/dL Blood 01/21/2024 6:37 PM ASSISTANT CASE MANAGER 01/21/2024 6:37 PM ASSISTANT CASE MANAGER Ayush Galvez MD LAB POCT ORDERABLES - DEVIC E Final Result Performing Organization Address City/[facility]/ZIP Co de Phone Number [facility] [place] [address] * (ABNORMAL) Potassium, whole blood (01/21/2024 4:22 PM ASSISTANT CASE MANAGER) [facility] Potassium, bld 6.0(H) 3.3 - 4.9 mmol/L Blood 01/21/2024 4:22 PM ASSISTANT CASE MANAGER 01/21/2024 4:32 PM ASSISTANT CASE MANAGER us Rosalie Velásquez NP LAB BLOOD ORDERABLES Final Result Performing Organization Address [facility] de Phone Number [facility] [place] [address] * (ABNORMAL) CBC without differential (01/21/2024 1:51 PM ASSISTANT CASE MANAGER) [facility] WBC 14.5(H) 3.8 - 9.9 K/cumm Hgb 8.5(L) 13.0 - 17.5 g/dL [facility] Hct 25.8(L) 38.9 - 50.3 % [facility] Plt 101(L) 150 - 400 K/cumm [facility] MPV 10.4 9.1 - 12.3 fL [facility] RBC 2.61(L) 4.30 - 5.80 M/cumm [facility] MCV 98.9(H) 81.3 - 96.4 fL [facility] MCH 32.6 27.1 - 33.3 pg [facility] MCHC 32.9 32.3 - 35.7 g/dL [facility] RDW CV 15.6(H) 11.1 - 14.9 % [facility] RDW SD 55.2(H) 35.7 - 48.1 fL [facility] NRBC abs 0.00 0.00 - 0.01 K/cumm [facility] Blood 01/21/2024 1:51 PM ASSISTANT CASE MANAGER 01/21/2024 2:12 PM ASSISTANT CASE MANAGER us Susi LEE LAB BLOOD ORDERABLES Final Result Performing Organization Address [facility] Co de Phone Number [facility] [place] [address] * POCT glucose (01/21/2024 12:26 PM ASSISTANT CASE MANAGER) [facility] Signature Glucose, POC 178 70 - 199 mg/dL Blood 01/21/2024 12:2 6 PM ASSISTANT CASE MANAGER 01/21/2024 12:26 PM ASSISTANT CASE MANAGER Ayush Galvez MD LAB POCT ORDERABLES - DEVIC E Final Result Performing Organization Address [facility] de Phone Number [facility] [place] [address] * [place] AN PROCEDURE PLACEHOLDER (01/21/2024 10:41 AM ASSISTANT CASE MANAGER) Narrative Roscoe Sandhu MD - 01/21/2024 10:41 AM ASSISTANT CASE MANAGER Roscoe Sandhu MD 01/21/2024 10:43 AM Arterial [...] sult * (ABNORMAL) Potassium (01/21/2024 8:39 AM ASSISTANT CASE MANAGER) Potassium, pl 6.1(H) 3.3 - 4.9 mmol/L Blood 01/21/2024 8:39 AM ASSISTANT CASE MANAGER 01/21/2024 9:10 AM ASSISTANT CASE MANAGER Narrative [facility] - 01/21/2024 9:32 AM ASSISTANT CASE MANAGER Provider to discontinue after two normal results. Ayush Galvez MD LAB BLOOD ORDERABLES Final Result [facility] [place] [address] * (ABNORMAL) POCT glucose (01/21/2024 8:10 AM ASSISTANT CASE MANAGER) Glucose, POC 297(H) 70 - 199 mg/dL Blood 01/21/2024 8:10 AM ASSISTANT CASE MANAGER 01/21/2024 8:10 AM ASSISTANT CASE MANAGER Ayush Galvez MD LAB POCT ORDERABLES - DEVIC E Final Result Performing Organization Address City/[facility] Co de Phone Number [facility] Department [place] [address] * (ABNORMAL) POCT glucose (01/21/2024 6:47 AM ASSISTANT CASE MANAGER) Glucose, POC 236(H) 70 - 199 mg/dL Blood 01/21/2024 6:47 AM ASSISTANT CASE MANAGER 01/21/2024 6:47 AM ASSISTANT CASE MANAGER Ayush Galvez MD LAB POCT ORDERABLES - DEVIC E Final Result Performing Organization Address City/[facility] Co de Phone Number [facility] [place] [address] * (ABNORMAL) POCT glucose (01/21/2024 5:46 AM ASSISTANT CASE MANAGER) Glucose, POC 234(H) 70 - 199 mg/dL Blood 01/21/2024 5:46 AM ASSISTANT CASE MANAGER 01/21/2024 5:46 AM ASSISTANT CASE MANAGER Ayush Galvez MD LAB POCT ORDERABLES - DEVIC E Final Result Performing Organization Address [facility] de Phone Number [facility] Department [place] [address] * (ABNORMAL) Potassium, whole blood (01/21/2024 5:22 AM ASSISTANT CASE MANAGER) Pathologist [facility] Potassium, bld 5.7(H) 3.3 - 4.9 mmol/L Comment:No hemolyse Blood 01/21/2024 5:22 AM ASSISTANT CASE MANAGER 01/21/2024 5:28 AM ASSISTANT CASE MANAGER Ayush Galvez MD LAB BLOOD ORDERABLES Final Result Performing Organization Address [facility] de Phone Number [facility] Department [place] [address] * ECG 12 lead (01/21/2024 5:17 AM ASSISTANT CASE MANAGER) Ventricular Rate EKG/Min 82 BPM [facility] Atrial Rate 82 BPM [facility] [place]-Interval (MSEC) 256 ms [facility] QRS-Interval (MSEC) 132 ms [facility] QT-Interval (MSEC) 408 ms [facility] QTc 476 ms [facility] P [place] 71 degrees [facility] R [place] 13 degrees [facility] T [place] -20 degrees [facility] Diagnosis Sinus rhythm with marked sinus arrhythmia with 1st degree A-V block Non-specific intra-ventricu lar conduction block Abnormal ECG When compared with ECG of 17-SEP-2023 08:34, No significant change was found Confirmed by JENNIFER BYRD M.D ([id number]) on 01/22/2024 5:00:18 PM [facility] 01/21/2024 5:17 AM ASSISTANT CASE MANAGER 01/22/2024 5:00 PM ASSISTANT CASE MANAGER us Ayush Galvez MD ECG ORDERABLES Final Resul t [facility] * (ABNORMAL) eGFR (01/21/2024 4:18 AM ASSISTANT CASE MANAGER) eGFR 10(L) >=60 mL/min/1. 73 m2 Comment: [...] last reviewed 2020. Blood 01/21/2024 4:18 AM ASSISTANT CASE MANAGER 01/21/2024 4:33 AM ASSISTANT CASE MANAGER us Larry Travis MD LAB BLOOD ORDERABLE S Final Result Performing Organization Address City/[facility]/ZIP Co de Phone Number [facility] [place] [address] * (ABNORMAL) Differential, auto (01/21/2024 4:18 AM ASSISTANT CASE MANAGER) Neutrophil abs 10.2(H) 1.5 - 6.5 K/cumm Imm gran abs 0.0 0.0 - 0.1 K/cumm [facility] Lymphocyte abs 0.0(L) 0.8 - 3.3 K/cumm [facility] Monocyte abs 0.2 0.2 - 0.8 K/cumm [facility] Eosinophil abs 0.0 0.0 - 0.5 K/cumm [facility] Basophil abs 0.0 0.0 - 0.1 K/cumm [facility] Neutrophil pct 97.4 % [facility] Comment: Interpretive Data Percent cell count reference ranges are not reported, since discordance with absolute values may lead to misinterpretation of CBC data. Current Interpretive Data was last revised on 2017. Imm gran pct 0.4 % [facility] Comment: Interpretive Data Percent cell count reference ranges are not reported, since discordance with absolute values may lead to misinterpretation of CBC data. Current Interpretive Data was last revised on 2017. Lymphocyte pct 0.2 % [facility] Comment: Interpretive Data Percent cell count reference ranges are not reported, since discordance with absolute values may lead to misinterpretation of CBC data. Current Interpretive Data was last revised on 2017. Monocyte pct 1.9 % [facility] Comment: Interpretive Data Percent cell count reference ranges are not reported, since discordance with absolute values may lead to misinterpretation of CBC data. Current Interpretive Data was last revised on 2017. Eosinophil pct 0.0 % [facility] Comment: Interpretive Data Percent cell count reference ranges are not reported, since discordance with absolute values may lead to misinterpretation of CBC data. Current Interpretive Data was last revised on 2017. Basophil pct 0.1 % [facility] Comment: Interpretive Data Percent cell count reference ranges are not reported, since discordance with absolute values may lead to misinterpretation of CBC data. Current Interpretive Data was last revised on 2017. Blood 01/21/2024 4:18 AM ASSISTANT CASE MANAGER 01/21/2024 4:34 AM ASSISTANT CASE MANAGER us Larry Travis MD LAB BLOOD ORDERABLE S Final Result [facility] [place] [address] * Critical Result Callback Chemistry (01/21/2024 4:18 AM ASSISTANT CASE MANAGER) Date Notified [id number] Time Notified 509 [facility] TestName Potassium Plas [facility] Called/Read Back Vibha [facility] Credentials RN [facility] Called By SANDEEP [facility] Blood 01/21/2024 4:18 AM ASSISTANT CASE MANAGER 01/21/2024 4:33 AM ASSISTANT CASE MANAGER Larry Travis MD LAB BLOOD ORDERABLE S Final Result Performing Organization Address [facility] Co de Phone Number [facility] [place] [address] * Tacrolimus level trough (01/21/2024 4:18 AM ASSISTANT CASE MANAGER) [facility] Tacrolimus trough <1.0 ng/mL Comment: Undetectable. Please verify that the correct immunosuppressant test was requested. Interpretive Data Testing performed by liquid chromatography-tandem mass spectrometry. Therapeutic concentrations vary depending on type of transplanted organ and time elapsed since transplant. Typical trough concentrations range from 5-15 ng/mL. This test was developed and its performance characteristics determined by the [facility] consistent with CLIA requirements. This test has not been cleared or approved by the [place] Food and Drug administration. Current interpretive data last reviewed 2019. Blood 01/21/2024 4:18 AM ASSISTANT CASE MANAGER 01/21/2024 4:34 AM ASSISTANT CASE MANAGER Ayush Galvez MD LAB BLOOD ORDERABLES Final Result Performing Organization Address [facility] Co de Phone Number [facility] [place] [address] * (ABNORMAL) CBC with auto differential (01/21/2024 4:18 AM ASSISTANT CASE MANAGER) [facility] WBC 10.5(H) 3.8 - 9.9 K/cumm Hgb 8.7(L) 13.0 - 17.5 g/dL [facility] Hct 25.8(L) 38.9 - 50.3 % [facility] Plt 110(L) 150 - 400 K/cumm [facility] MPV 9.7 9.1 - 12.3 fL [facility] RBC 2.66(L) 4.30 - 5.80 M/cumm [facility] MCV 97.0(H) 81.3 - 96.4 fL [facility] MCH 32.7 27.1 - 33.3 pg [facility] MCHC 33.7 32.3 - 35.7 g/dL [facility] RDW CV 15.9(H) 11.1 - 14.9 % [facility] RDW SD 55.3(H) 35.7 - 48.1 fL [facility] NRBC abs 0.00 0.00 - 0.01 K/cumm [facility] Blood 01/21/2024 4:18 AM ASSISTANT CASE MANAGER 01/21/2024 4:34 AM ASSISTANT CASE MANAGER Ayush Galvez MD LAB BLOOD ORDERABLES Final Result Performing Organization Address [facility] Co de Phone Number [facility] Department [place] [address] * Magnesium (01/21/2024 4:18 AM ASSISTANT CASE MANAGER) [facility] Magnesium 2.1 1.4 - 2.5 mg/dL Blood 01/21/2024 4:18 AM ASSISTANT CASE MANAGER 01/21/2024 4:33 AM ASSISTANT CASE MANAGER Ayush Galvez MD LAB BLOOD ORDERABLES Final Result Performing Organization Address [facility] Co de Phone Number [facility] [place] [address] * (ABNORMAL) Renal function panel (01/21/2024 4:18 AM ASSISTANT CASE MANAGER) [facility] Sodium 135 135 - 145 mmol/L Potassium, pl 6.4(C) 3.3 - 4.9 mmol/L [facility] Chloride 94(L) 97 - 110 mmol/L [facility] CO2 25 22 - 32 mmol/L [facility] Anion gap 16(H) 2 - 15 mmol/L [facility] BUN 34(H) 6 - 25 mg/dL [facility] Creatinine 5.99(H) 0.80 - 1.30 mg/dL [facility] Glucose 217(H) 70 - 199 mg/dL [facility] Comment: Interpretive Data Fasting glucose >/= 126 [...] 2022. Calcium 9.0 8.5 - 10.3 mg/dL [facility] Phosphorus, pl 6.5(H) 2.3 - 4.5 mg/dL [facility] Albumin 3.5 3.5 - 5.0 g/dL [facility] Blood 01/21/2024 4:1 8 AM ASSISTANT CASE MANAGER 01/21/2024 4:33 AM ASSISTANT CASE MANAGER Ayush Galvez MD LAB BLOOD ORDERABLES Final Result [facility] [place] [address] * US Renal Transplant W Dopplers (01/20/2024 11:24 PM ASSISTANT CASE MANAGER) Anatomical Region Laterality Modality Kidney N/A Ultrasound 01/21/2024 1:42 AM ASSISTANT CASE MANAGER Impressions 01/21/2024 8:21 AM ASSISTANT CASE MANAGER 1. Normal transplant kidney morphology without hydronephrosis. [...] Kyle Perez M.D. Narrative 01/21/2024 8:21 AM ASSISTANT CASE MANAGER EXAMINATION: RENAL TRANSPLANT ULTRASOUND WITH DOPPLER HISTORY: [...] * (ABNORMAL) POCT glucose (01/20/2024 8:56 PM ASSISTANT CASE MANAGER) Glucose, POC 263(H) 70 - 199 mg/dL Blood 01/20/2024 8:56 PM ASSISTANT CASE MANAGER 01/20/2024 8:56 PM ASSISTANT CASE MANAGER us Ayush Galvez MD LAB POCT ORDERABLES - DEVIC E Final Result [facility] [place] [address] * XR Chest 1 View (01/20/2024 5:58 PM ASSISTANT CASE MANAGER) Anatomical Region Laterality Modality Body, Chest N/A Computed Radiogr aphy 01/21/2024 9:14 AM ASSISTANT CASE MANAGER Impressions 01/21/2024 9:14 AM ASSISTANT CASE MANAGER Comparison 01/18/2024. Sternal plates and wires are aligned and intact. Right internal jugular central venous catheter tip overlies superior vena cava. Mild bibasilar opacity may represent a combination of mild edema and atelectasis superimposed on underlying chronic interstitial lung disease, unchanged given the smaller lung volumes. No pneumothorax seen. Cardiomediastinal silhouette stable. Electronically signed by: Omar Hollins M.D. Narrative 01/21/2024 9:14 AM ASSISTANT CASE MANAGER EXAMINATION: 1 view chest radiograph Procedure Note [...] esult * (ABNORMAL) eGFR (01/20/2024 5:08 PM ASSISTANT CASE MANAGER) eGFR 12(L) >=60 mL/min/1. 73 m2 Comment: [...] last reviewed 2020. Blood 01/20/2024 5:08 PM ASSISTANT CASE MANAGER 01/20/2024 5:27 PM ASSISTANT CASE MANAGER us Larry Travis MD LAB BLOOD ORDERABLE S Final Result [facility] Department of Laboratories [place], [place] [id number] * (ABNORMAL) CBC without differential (01/20/2024 5:08 PM ASSISTANT CASE MANAGER) WBC 11.3(H) 3.8 - 9.9 K/cumm Hgb 9.4(L) 13.0 - 17.5 g/dL [facility] Hct 28.1(L) 38.9 - 50.3 % [facility] Plt 134(L) 150 - 400 K/cumm [facility] MPV 9.4 9.1 - 12.3 fL [facility] RBC 2.88(L) 4.30 - 5.80 M/cumm [facility] MCV 97.6(H) 81.3 - 96.4 fL [facility] MCH 32.6 27.1 - 33.3 pg [facility] MCHC 33.5 32.3 - 35.7 g/dL [facility] RDW CV 15.4(H) 11.1 - 14.9 % [facility] RDW SD 54.8(H) 35.7 - 48.1 fL [facility] NRBC abs 0.03(H) 0.00 - 0.01 K/cumm [facility] Blood 01/20/2024 5:08 PM ASSISTANT CASE MANAGER 01/20/2024 5:27 PM ASSISTANT CASE MANAGER Larry Travis MD LAB BLOOD ORDERABLE S Final Result [facility] [place] [address] * (ABNORMAL) Renal function panel (01/20/2024 5:08 PM ASSISTANT CASE MANAGER) Sodium 136 135 - 145 mmol/L Potassium, pl 5.0(H) 3.3 - 4.9 mmol/L [facility] Chloride 95(L) 97 - 110 mmol/L [facility] CO2 27 22 - 32 mmol/L [facility] Anion gap 14 2 - 15 mmol/L [facility] BUN 25 6 - 25 mg/dL [facility] Creatinine 5.21(H) 0.80 - 1.30 mg/dL [facility] Glucose 180 70 - 199 mg/dL [facility] Comment: Interpretive Data Fasting glucose >/= 126 [...] 2022. Calcium 9.0 8.5 - 10.3 mg/dL [facility] Phosphorus, pl 6.0(H) 2.3 - 4.5 mg/dL [facility] Albumin 3.3(L) 3.5 - 5.0 g/dL [facility] Blood 01/20/2024 5:08 PM ASSISTANT CASE MANAGER 01/20/2024 5:27 PM ASSISTANT CASE MANAGER Larry Travis MD LAB BLOOD ORDERABLE S Final Result Performing Organization Address City/[facility]/ZIP Co de Phone Number [facility] Department [place] [address] * POCT glucose (01/20/2024 4:51 PM ASSISTANT CASE MANAGER) Glucose, POC 162 70 - 199 mg/dL Blood 01/20/2024 4:51 PM ASSISTANT CASE MANAGER 01/20/2024 4:51 PM ASSISTANT CASE MANAGER Larry Travis MD LAB POCT ORDERABLES - DEVICE Final Result Performing Organization Address City/[facility]/ZIP Co de Phone Number [facility] Department [place] [address] * (ABNORMAL) POC Blood Gas and Chemistries, Arterial - (01/20/2024 4:23 PM ASSISTANT CASE MANAGER) pH, Art POC 7.33(L) 7.35 - 7.45 pCO2, Art POC 54(H) 35 - 45 mmHg [facility] pO2, Art POC 104 83 - 108 mmHg [facility] Na, POC 135 135 - 145 mmol/L [facility] K POC 5.2(H) 3.3 - 4.9 mmol/L [facility] Comment: Interpretive Data Not all point of care methods assess for hemolysis. Confirm with instrument and retest K+ if not consistent with clinical signs and symptoms. Current Interpretive Data was last revised on 2023. Cl, POC 99 97 - 110 mmol/L [facility] Ionized Ca, POC 4.82 4.50 - 5.10 mg/dL [facility] Glucose, POC 171 70 - 199 mg/dL [facility] Lactate, POC 2.6(H) 0.7 - 2.2 mmol/L [facility] SO2 (elvia) arterial 99(H) 90 - 95 % [facility] Base excess, POC 1.9 mmol/L [facility] Hct, POC 30.0(L) 41.4 - 51.6 % [facility] Total Hb, POC 9.9(L) 13.8 - 17.2 g/dL [facility] Blood 01/20/2024 4:23 PM ASSISTANT CASE MANAGER 01/20/2024 4:23 PM ASSISTANT CASE MANAGER Larry Travis MD LAB POCT ORDERABLES - DEVICE Final Result [facility] [place] [address] * Transfuse RBC (01/20/2024 4:00 PM ASSISTANT CASE MANAGER) Blood Roscoe Sandhu MD BLOOD TRANSFUSION ORDERABLES F inal Result Performing Organization Address City/[facility]/ZIP Co de Phone Number [facility] [place] [address] * (ABNORMAL) POC Blood Gas and Chemistries, Arterial - (01/20/2024 3:09 PM ASSISTANT CASE MANAGER) [facility] pH, Art POC 7.42 7.35 - 7.45 pCO2, Art POC 47(H) 35 - 45 mmHg [facility] pO2, Art POC 77(L) 83 - 108 mmHg [facility] Na, POC 135 135 - 145 mmol/L [facility] K POC 5.2(H) 3.3 - 4.9 mmol/L [facility] Comment: Interpretive Data Not all point of care methods assess for hemolysis. Confirm with instrument and retest K+ if not consistent with clinical signs and symptoms. Current Interpretive Data was last revised on 2023. Ionized Ca, POC 4.79 4.50 - 5.10 mg/dL [facility] Glucose, POC 134 70 - 199 mg/dL [facility] Lactate, POC 1.5 0.7 - 2.2 mmol/L [facility] SO2 (elvia) arterial 98(H) 90 - 95 % [facility] Base excess, POC 5.3 mmol/L [facility] Hct, POC 29.0(L) 41.4 - 51.6 % [facility] Total Hb, POC 9.8(L) 13.8 - 17.2 g/dL [facility] Blood 01/20/2024 3:09 PM ASSISTANT CASE MANAGER 01/20/2024 3:09 PM ASSISTANT CASE MANAGER Larry Travis MD LAB POCT ORDERABLES - DEVICE Final Result Performing Organization Address [facility]/ZIP Co de Phone Number [facility] [place] [address] * POCT glucose (01/20/2024 2:41 PM ASSISTANT CASE MANAGER) [facility] Glucose, POC 108 70 - 199 mg/dL Blood 01/20/2024 2:41 PM ASSISTANT CASE MANAGER 01/20/2024 2:41 PM ASSISTANT CASE MANAGER Larry Travis MD LAB POCT ORDERABLES - DEVICE Final Result Performing Organization Address City/[facility]/ZIP Co de Phone Number [facility] [place] [address] * Central Venous Line (01/20/2024 2:37 PM ASSISTANT CASE MANAGER) Narrative Elizabeth Castellano MD - 01/20/2024 2:37 PM ASSISTANT CASE MANAGER Elizabeth Castellano MD 01/20/2024 2:38 PM Central [...] Re sult * Airway (01/20/2024 1:37 PM ASSISTANT CASE MANAGER) Narrative Elizabeth Castellano MD - 01/20/2024 1:37 PM ASSISTANT CASE MANAGER Elizabeth Castellano MD 01/20/2024 1:37 PM Airway [...] sult * POCT glucose (01/20/2024 11:12 AM ASSISTANT CASE MANAGER) Glucose, POC 132 70 - 199 mg/dL Blood 01/20/2024 11:1 2 AM ASSISTANT CASE MANAGER 01/20/2024 11:12 AM ASSISTANT CASE MANAGER us Larry Travis MD LAB POCT ORDERABLES - DEVICE Final Result [facility] [place] [address] * HLA Donor Specific Antibody Report (01/20/2024 7:31 AM ASSISTANT CASE MANAGER) us Provider Scanning LAB BLOOD ORDERABLES Final Res ult * (ABNORMAL) eGFR (01/20/2024 12:08 AM ASSISTANT CASE MANAGER) eGFR 6(L) >=60 mL/min/1. 73 m2 Comment: [...] reviewed 2020. Blood 01/20/2024 12:0 8 AM ASSISTANT CASE MANAGER 01/20/2024 12:43 AM ASSISTANT CASE MANAGER Larry Travis MD LAB BLOOD ORDERABLE S Final Result Performing Organization Address City/[facility]/ZIP Co de Phone Number [facility] [place] [address] * (ABNORMAL) Basic metabolic panel (01/20/2024 12:08 AM ASSISTANT CASE MANAGER) Sodium 140 135 - 145 mmol/L Potassium, pl 4.8 3.3 - 4.9 mmol/L [facility] Chloride 95(L) 97 - 110 mmol/L [facility] CO2 30 22 - 32 mmol/L [facility] Anion gap 15 2 - 15 mmol/L [facility] BUN 55(H) 6 - 25 mg/dL [facility] Creatinine 9.05(H) 0.80 - 1.30 mg/dL [facility] Glucose 129 70 - 199 mg/dL [facility] Comment: Interpretive Data Fasting glucose >/= 126 [...] 2022. Calcium 9.7 8.5 - 10.3 mg/dL [facility] Blood 01/20/2024 12:0 8 AM ASSISTANT CASE MANAGER 01/20/2024 12:43 AM ASSISTANT CASE MANAGER Larry Travis MD LAB BLOOD ORDERABLE S Final Result Performing Organization Address City/[facility]/ZIP Co de Phone Number [facility] [place] [address] * XR Ankle Right 3 or More Views (01/19/2024 12:37 PM ASSISTANT CASE MANAGER) Anatomical Region Laterality Modality Lower Extremities, Ankle Right Compute d Radiography 01/19/2024 3:28 PM ASSISTANT CASE MANAGER Impressions 01/19/2024 4:08 PM ASSISTANT CASE MANAGER 1. Right leg subcutaneous edema with chronic venous stasis and medial ankle ulcer but no radiographic evidence of osteomyelitis. Dictated by: Liliane Ceja MD, MPH The radiology attending physician has personally reviewed this study, and had reviewed and/or edited this written report and agrees with it. Electronically signed by: Roscoe Tavarez M.D. Narrative 01/19/2024 4:08 PM ASSISTANT CASE MANAGER EXAMINATION: XR TIBIA FIBULA RIGHT2 VIEWS, XR [...] signed by: Roscoe Tavarez M.D. Rosalie Velásquez CAPSULE FILLING MACHINE OPERATOR IMG XR PROCEDURES Final Res ult * XR Tibia Fibula Right 2 Views (01/19/2024 12:37 PM ASSISTANT CASE MANAGER) Anatomical Region Laterality Modality Lower Extremities, Lower Leg Right Com puted Radiography 01/19/2024 3:28 PM ASSISTANT CASE MANAGER Impressions 01/19/2024 4:08 PM ASSISTANT CASE MANAGER 1. Right leg subcutaneous edema with chronic venous stasis and medial ankle ulcer but no radiographic evidence of osteomyelitis. Dictated by: Liliane Ceja MD, MPH The radiology attending physician has personally reviewed this study, and had reviewed and/or edited this written report and agrees with it. Electronically signed by: Roscoe Tavarez M.D. Narrative 01/19/2024 4:08 PM ASSISTANT CASE MANAGER EXAMINATION: XR TIBIA FIBULA RIGHT2 VIEWS, XR [...] culture Urine, clean voided (01/19/2024 8:50 AM ASSISTANT CASE MANAGER) Report Final Report: Less than 100,000 colonies/mL (clinically insignificant growth based on current clinical standards) Organism (CLINICALLY INSIGNIFICANT GROWTH [facility] Urine, clean voided 01/19/2024 8:50 AM ASSISTANT CASE MANAGER 01/19/2024 9:48 AM ASSISTANT CASE MANAGER Narrative [facility] - 01/20/2024 4:21 PM ASSISTANT CASE MANAGER Indications for Culture:->Other (specify) Other Indication:->pre-op Testing performed by [facility] ([phone]) Rosalie Velásquez NP LAB MICROBIOLOGY - GENERAL ORDERABLES Final Result Performing Organization Address [facility] Co de Phone Number [facility] [place] [address] * Prepare RBC: 2 Units (01/19/2024 6:31 AM ASSISTANT CASE MANAGER) Product code [id number] Unit Number [id number]- [facility] Product Blood Type ONEG [facility] Dispense Status PRESUMED TRANSFUSED [facility] Product code [id number] [facility] Unit Number [id number]- I [facility] Product Blood Type ONEG [facility] Dispense Status PRESUMED TRANSFUSED [facility] Blood 01/19/2024 6:31 AM ASSISTANT CASE MANAGER 01/19/2024 6:30 AM ASSISTANT CASE MANAGER Narrative [facility] - 01/23/2024 12:55 AM ASSISTANT CASE MANAGER Specify Procedure:->Kidney Transplant Are special requirements needed? (All products are leukoreduced and CMV- safe)- >No Date required:-[id number] LRRBC # of [id number] Reasons:-Hold for procedure (specify procedure)} Larry Travis MD BLOOD BANK PRODUCT ORDERABLES Final Result Performing Organization Address [facility] Co de Phone Number [facility] [place] [address] * HLA Crossmatch Report (01/18/2024 11:43 PM ASSISTANT CASE MANAGER) Rosalie Velásquez NP LAB BLOOD ORDERABLES Final Result * HLA Crossmatch, ALLO (01/18/2024 11:43 PM ASSISTANT CASE MANAGER) Blood 01/18/2024 11:4 3 PM ASSISTANT CASE MANAGER 01/20/2024 9:03 AM ASSISTANT CASE MANAGER Narrative [facility] - 01/20/2024 9:03 AM ASSISTANT CASE MANAGER Rosalie Pickeringos CAPSULE FILLING MACHINE OPERATOR LAB BLOOD ORDERABLES Final Result [facility] * HLA Antibody Screen by PRA or SAB per Schedule (Class I and Class II) (01/18/2024 11:43 PM ASSISTANT CASE MANAGER) Blood 01/18/2024 11:4 3 PM ASSISTANT CASE MANAGER Narrative [facility] - ASSISTANT CASE MANAGER Sample received in lab. Single Antigen Antibody Screen ordered. Rosalie Pickeringellyn CAPSULE FILLING MACHINE OPERATOR LAB BLOOD ORDERABLES Final Result [facility] * HLA Antibody Screen - SAB (Class I and Class II) (01/18/2024 11:43 PM ASSISTANT CASE MANAGER) Class I Treatment EDTA [facility] Class I Dilution 1:1 [facility] Class I Tested Date 01/19/2024 [facility] Class I Result Negative [facility] Class I CPRA 0 [facility] Class II Treatment EDTA [facility] Class II Dilution 1:1 [facility] Class II Tested Date 01/19/2024 [facility] Class II Result Negative [facility] Class II CPRA 0 [facility] Class II Low Risk DR53; DQ2 [facility] 01/18/2024 11:4 3 PM ASSISTANT CASE MANAGER 01/20/2024 7:24 AM ASSISTANT CASE MANAGER Narrative [facility] - 01/20/2024 7:24 AM ASSISTANT CASE MANAGER Single-antigen HLA antibody screen is performed on serum samples using a method developed and validated by the [facility] laboratory based on an FDA-approved IVD kit (LABScreen Single-Antigen, [employer], [place], [place]). All patient serum samples are pretreated with EDTA before the screen to prevent complement interference. Additional serum treatments, such as adsorption and DTT treatment, may be performed as indicated. Interpretive comments: Low risk: MFI [id number]. Moderate risk: MFI [id number]. Increased risk: MFI >/= 5000. The presence [...] antigens to avoid. Testing performed at the [facility], [address] [place] [address], 5th floor, [place], [address]. [facility] # [id number]. Magalis Bean, Ph.D., Laborer Powerhouse, [facility] Laboratory José Miguel Yun M.D., Ph.D., Pattern Grader Cutter, [facility] Nessa Marley, Ph.D., [place] Pattern Grader Cutter, [facility] Current methodology and interpretive comments last revised on 03/27/2022. Rosalie Velásquez NP LAB BLOOD ORDERABLES Final Result Performing Organization Address City/State/[facility] Co de Phone Number [facility] * X-ray chest 1 view (01/18/2024 11:41 PM ASSISTANT CASE MANAGER) Anatomical Region Laterality Modality Body, Chest N/A Digital Radiogra phy 01/19/2024 4:05 AM ASSISTANT CASE MANAGER Impressions 01/19/2024 4:05 AM ASSISTANT CASE MANAGER Comparison is made to prior study of [...] Evan Boothe M.D. Narrative 01/19/2024 4:05 AM ASSISTANT CASE MANAGER EXAMINATION: 1 view chest radiograph Procedure Note [...] signed by: Evan Boothe M.D. Rosalie Velásquez CAPSULE FILLING MACHINE OPERATOR IMG XR PROCEDURES Final Res ult * Collection Task for HLA Antibody Screen (01/18/2024 10:50 PM ASSISTANT CASE MANAGER) Pathologist [facility] HLA Antibody Screen by PRA Received Blood 01/18/2024 10:5 0 PM ASSISTANT CASE MANAGER 01/19/2024 9:57 AM ASSISTANT CASE MANAGER us Rosalie Velásquez NP LAB BLOOD ORDERABLES Final Result [facility] [place] [address] * (ABNORMAL) eGFR (01/18/2024 10:50 PM ASSISTANT CASE MANAGER) Pathologist [facility] eGFR 9(L) >=60 mL/min/1. 73 m2 Comment: [...] reviewed 2020. Blood 01/18/2024 10:5 0 PM ASSISTANT CASE MANAGER 01/18/2024 11:14 PM ASSISTANT CASE MANAGER us Rosalie Velásquez NP LAB BLOOD ORDERABLES Final Result [facility] [place] [address] * Differential, auto (01/18/2024 10:50 PM ASSISTANT CASE MANAGER) Neutrophil abs 5.4 1.5 - 6.5 K/cumm Imm gran abs 0.0 0.0 - 0.1 K/cumm [facility] Lymphocyte abs 1.2 0.8 - 3.3 K/cumm [facility] Monocyte abs 0.6 0.2 - 0.8 K/cumm [facility] Eosinophil abs 0.2 0.0 - 0.5 K/cumm [facility] Basophil abs 0.0 0.0 - 0.1 K/cumm [facility] Neutrophil pct 73.1 % [facility] Comment: Interpretive Data Percent cell count reference ranges are not reported, since discordance with absolute values may lead to misinterpretation of CBC data. Current Interpretive Data was last revised on 2017. Imm gran pct 0.4 % [facility] Comment: Interpretive Data Percent cell count reference ranges are not reported, since discordance with absolute values may lead to misinterpretation of CBC data. Current Interpretive Data was last revised on 2017. Lymphocyte pct 15.7 % [facility] Comment: Interpretive Data Percent cell count reference ranges are not reported, since discordance with absolute values may lead to misinterpretation of CBC data. Current Interpretive Data was last revised on 2017. Monocyte pct 7.4 % [facility] Comment: Interpretive Data Percent cell count reference ranges are not reported, since discordance with absolute values may lead to misinterpretation of CBC data. Current Interpretive Data was last revised on 2017. Eosinophil pct 3.0 % [facility] Comment: Interpretive Data Percent cell count reference ranges are not reported, since discordance with absolute values may lead to misinterpretation of CBC data. Current Interpretive Data was last revised on 2017. Basophil pct 0.4 % [facility] Comment: Interpretive Data Percent cell count reference ranges are not reported, since discordance with absolute values may lead to misinterpretation of CBC data. Current Interpretive Data was last revised on 2017. Blood 01/18/2024 10:5 0 PM ASSISTANT CASE MANAGER 01/18/2024 11:15 PM ASSISTANT CASE MANAGER Rosalie Velásquez CAPSULE FILLING MACHINE OPERATOR LAB BLOOD ORDERABLES Final Result Performing Organization Address City/[facility]/ZIP Co de Phone Number [facility] [place] [address] * (ABNORMAL) Iron profile w/ IBC (01/18/2024 10:50 PM ASSISTANT CASE MANAGER) [facility] Iron 52 50 - 150 mcg/dL TIBC 162(L) 250 - 400 mcg/dL [facility] Transferrin saturation 32 20 - 50 % [facility] Blood 01/18/2024 10:5 0 PM ASSISTANT CASE MANAGER 01/18/2024 11:14 PM ASSISTANT CASE MANAGER Rosalie Velásquez CAPSULE FILLING MACHINE OPERATOR LAB BLOOD ORDERABLES Final Result [facility] [place] [address] * HIV 1/2 Antibody plus p24 Antigen Blood (01/18/2024 10:50 PM ASSISTANT CASE MANAGER) [facility] HIV 1/2 ab + p24 ag Nonreactive Nonreactive Comment:Nonreactive for HIV- 1 antigen and HIV-1/HIV-2 antibodies. No laboratory evidence of HIV infection. If acute HIV infection is suspected, consider testing for HIV-1 RNA. Current interpretive data was last revised on 21. Blood 01/18/2024 10:5 0 PM ASSISTANT CASE MANAGER 01/18/2024 11:15 PM ASSISTANT CASE MANAGER Rosalie Velásquez NP LAB MICROBIOLOGY - GENERAL ORDERABLES Final Result Performing Organization Address City/[facility]/ZIP Co de Phone Number [facility] [place] [address] * (ABNORMAL) CBC with auto differential (01/18/2024 10:50 PM ASSISTANT CASE MANAGER) Pathologist [facility] WBC 7.4 3.8 - 9.9 K/cumm Hgb 10.1(L) 13.0 - 17.5 g/dL [facility] Hct 30.4(L) 38.9 - 50.3 % [facility] Plt 155 150 - 400 K/cumm [facility] MPV 9.5 9.1 - 12.3 fL [facility] RBC 3.05(L) 4.30 - 5.80 M/cumm [facility] MCV 99.7(H) 81.3 - 96.4 fL [facility] MCH 33.1 27.1 - 33.3 pg [facility] MCHC 33.2 32.3 - 35.7 g/dL [facility] RDW CV 14.4 11.1 - 14.9 % [facility] RDW SD 51.3(H) 35.7 - 48.1 fL [facility] NRBC abs 0.00 0.00 - 0.01 K/cumm [facility] Blood 01/18/2024 10:5 0 PM ASSISTANT CASE MANAGER 01/18/2024 11:15 PM ASSISTANT CASE MANAGER Rosalie Velásquez NP LAB BLOOD ORDERABLES Final Result Performing Organization Address City/[facility]/ZIP Co de Phone Number [facility] [place] [address] * Hepatitis C antibody Blood (01/18/2024 10:50 PM ASSISTANT CASE MANAGER) Pathologist [facility] Hep C Ab Nonreactive Nonreactive Comment:Antibodies to HCV no t detected. Does NOT exclude the possibility of recent exposure to HCV. Current interpretive data was last revised on 21 Blood 01/18/2024 10:5 0 PM ASSISTANT CASE MANAGER 01/18/2024 11:14 PM ASSISTANT CASE MANAGER Rosalie Velásquez NP LAB MICROBIOLOGY - GENERAL ORDERABLES Final Result Performing Organization Address City/[facility]/ZIP Co de Phone Number [facility] [place] [address] * Hepatitis B core antibody, total Blood (01/18/2024 10:50 PM ASSISTANT CASE MANAGER) [facility] Hep B core IgG/IgM Nonreactive Nonreactive Blood 01/18/2024 10:5 0 PM ASSISTANT CASE MANAGER 01/18/2024 11:14 PM ASSISTANT CASE MANAGER Rosalie Velásquez NP LAB MICROBIOLOGY - GENERAL ORDERABLES Final Result Performing Organization Address City/[facility] Co de Phone Number [facility] [place] [address] * Hepatitis C (HCV) RNA PCR, quantitative Blood (01/18/2024 10:50 PM ASSISTANT CASE MANAGER) [facility] HCV RNA result Not Detected [facility] Comment: The quantifiable range of this assay is 15 IU/mL to 100,000,000 IU/mL (1.18 log IU/mL to 8.00 log IU/mL). Testing was performed by the [facility]AL[facility] 6800 HCV Test ([employer] Testing performed at [facility] Current Interpretive Data was last revised on 2020 Blood 01/18/2024 10:5 0 PM ASSISTANT CASE MANAGER 01/18/2024 11:50 PM ASSISTANT CASE MANAGER Rosalie Velásquez NP LAB MICROBIOLOGY - GENERAL ORDERABLES Final Result Performing Organization Address [facility] [place] [address] [facility] * Hepatitis B surface antibody (immune status) Blood (01/18/2024 10:50 PM ASSISTANT CASE MANAGER) Pathologist [facility] HBsAb (immune status) Reactive Comment:This result is consi stent with immunity to Hepatitis B Virus when used in the setting of routine screening. Current interpretive data was last revised on 21 HBsAb (immune status) index 1,828.0 mIUnits/m L [facility] Blood 01/18/2024 10:5 0 PM ASSISTANT CASE MANAGER 01/18/2024 11:14 PM ASSISTANT CASE MANAGER Rosalie Velásquez NP LAB MICROBIOLOGY - GENERAL ORDERABLES Final Result Performing Organization Address [facility] de Phone Number [facility] [place] [address] * Hepatitis B Surface Antigen Blood (01/18/2024 10:50 PM ASSISTANT CASE MANAGER) [facility] HepBsAg Nonreactive Nonreactive Blood 01/18/2024 10:5 0 PM ASSISTANT CASE MANAGER 01/18/2024 11:14 PM ASSISTANT CASE MANAGER Rosalie Velásquez NP LAB MICROBIOLOGY - GENERAL ORDERABLES Final Result Performing Organization Address [facility] Co de Phone Number [facility] [place] [address] * aPTT (01/18/2024 10:50 PM ASSISTANT CASE MANAGER) [facility] aPTT 31 28 - 38 sec Comment: Interpretive Data Heparin therapeutic range: 66.0 - 100.0 seconds. Range based on correlation with therapeutic heparin activity range of 0.3 - 0.7 Units/mL. Current interpretive data was last revised on 2022. Blood 01/18/2024 10:5 0 PM ASSISTANT CASE MANAGER 01/18/2024 11:17 PM ASSISTANT CASE MANAGER Rosalie Velásquez CAPSULE FILLING MACHINE OPERATOR LAB BLOOD ORDERABLES Final Result Performing Organization Address [facility] Co de Phone Number [facility] [place] [address] * Protime-INR (01/18/2024 10:50 PM ASSISTANT CASE MANAGER) PT 11.2 9.7 - 13.0 sec INR 1.04 0.90 - 1.20 [facility] Comment: Interpretive data Oral anticoagulant therapeutic ranges: Venous thromboembolism prophylaxis or treatment: 2.0-3.0 CARDIOLOGY Standard range: 2.0-3.0 High-intensity range: 2.5-3.5 Refer to indication-specific guidelines for appropriate target ranges for prosthetic heart valve replacement. Current interpretive data was last revised on 2019. Blood 01/18/2024 10:5 0 PM ASSISTANT CASE MANAGER 01/18/2024 11:17 PM ASSISTANT CASE MANAGER Rosalie Velásquez NP LAB BLOOD ORDERABLES Final Result Performing Organization Address [facility] de Phone Number [facility] [place] [address] * Type and screen (01/18/2024 10:50 PM ASSISTANT CASE MANAGER) ABO Rh O Negative [place], indirect Negative [facility] Blood 01/18/2024 10:5 0 PM ASSISTANT CASE MANAGER 01/18/2024 11:13 PM ASSISTANT CASE MANAGER Narrative [facility] - 01/19/2024 12:08 AM ASSISTANT CASE MANAGER Has the patient had Daratumumab or Isatuximab in the past 6 months?->Unknown Rosalie Velásquez NP LAB BLOOD BANK TEST ORDERAB LES Final Result Performing Organization Address [facility] Co de Phone Number [facility] Department [place] [address] * Uric acid (01/18/2024 10:50 PM ASSISTANT CASE MANAGER) [facility] Uric acid 4.2 3.0 - 8.0 mg/dL Blood 01/18/2024 10:5 0 PM ASSISTANT CASE MANAGER 01/18/2024 11:14 PM ASSISTANT CASE MANAGER Rosalie Velásquez CAPSULE FILLING MACHINE OPERATOR LAB BLOOD ORDERABLES Final Result [facility] [place] [address] * (ABNORMAL) Phosphorus (01/18/2024 10:50 PM ASSISTANT CASE MANAGER) [facility] Phosphorus, pl 6.5(H) 2.3 - 4.5 mg/dL Blood 01/18/2024 10:5 0 PM ASSISTANT CASE MANAGER 01/18/2024 11:14 PM ASSISTANT CASE MANAGER Rosalie Velásquez CAPSULE FILLING MACHINE OPERATOR LAB BLOOD ORDERABLES Final Result Performing Organization Address City/[facility] Co de Phone Number [facility] [place] [address] * (ABNORMAL) Hemoglobin A1c (01/18/2024 10:50 PM ASSISTANT CASE MANAGER) [facility] Hgb A1C 6.3(H) 4.0 - 5.6 % Estimated Average Glucose 134 mg/dL [facility] Comment: The ADA recommends reporting an estimated Average Glucose (eAG) with all Hemoglobin A1c results using the equation derived from a study of 507 normal and diabetic adults. Minority populations were underrepresented and children were not included. (Diabetes Care 2020; 43(S1): S66-S76). The eAG is not equivalent to a fasting glucose. Blood 01/18/2024 10:5 0 PM ASSISTANT CASE MANAGER 01/18/2024 11:15 PM ASSISTANT CASE MANAGER Rosalie Velásquez CAPSULE FILLING MACHINE OPERATOR LAB BLOOD ORDERABLES Final Result [facility] [place] [address] * (ABNORMAL) Ferritin (01/18/2024 10:50 PM ASSISTANT CASE MANAGER) Ferritin 1,237(H) 30 - 400 ng/mL Blood 01/18/2024 10:5 0 PM ASSISTANT CASE MANAGER 01/18/2024 11:14 PM ASSISTANT CASE MANAGER us Rosalie Velásquez CAPSULE FILLING MACHINE OPERATOR LAB BLOOD ORDERABLES Final Result Performing Organization Address [facility] Co de Phone Number [facility] [place] [address] * (ABNORMAL) Lipid panel (01/18/2024 10:50 PM ASSISTANT CASE MANAGER) Cholesterol 203(H) 30 - 199 mg/dL Comment: [...] revised on 2017. Triglycerides 208(H) <=149 mg/dL [facility] Comment: Interpretive Data Ages < [...] revised on 2017. HDL 38(L) >=40 mg/dL [facility] Comment: Interpretive Data Ages < or = [...] on 2017. LDL, calculated 128 <=129 mg/dL [facility] Comment: Interpretive Data Ages < [...] revised on 2023. Non-HDL Cholesterol 165 mg/dL [facility] Comment: Interpretive Data Ages < [...] last revised on 2017. Chol/HDL ratio 5 [facility] Blood 01/18/2024 10:5 0 PM ASSISTANT CASE MANAGER 01/18/2024 11:14 PM ASSISTANT CASE MANAGER Rosalie Velásquez CAPSULE FILLING MACHINE OPERATOR LAB BLOOD ORDERABLES Final Result [facility] [place] [address] * (ABNORMAL) Comprehensive metabolic panel (01/18/2024 10:50 PM ASSISTANT CASE MANAGER) Sodium 142 135 - 145 mmol/L Potassium, pl 4.4 3.3 - 4.9 mmol/L [facility] Chloride 96(L) 97 - 110 mmol/L [facility] CO2 31 22 - 32 mmol/L [facility] Anion gap 15 2 - 15 mmol/L [facility] BUN 40(H) 6 - 25 mg/dL [facility] Creatinine 6.70(H) 0.80 - 1.30 mg/dL [facility] Glucose 162 70 - 199 mg/dL [facility] Comment: Interpretive Data Fasting glucose >/= 126 [...] 2022. Calcium 10.4(H) 8.5 - 10.3 mg/dL [facility] Bilirubin, total 0.3 0.1 - 1.2 mg/dL [facility] Protein, pl 7.1 6.5 - 8.5 g/dL [facility] Albumin 4.0 3.5 - 5.0 g/dL [facility] Alk phos 187(H) 40 - 130 Units/L [facility] ALT 18 7 - 55 Units/L [facility] AST 23 10 - 50 Units/L [facility] Blood 01/18/2024 10:5 0 PM ASSISTANT CASE MANAGER 01/18/2024 11:14 PM ASSISTANT CASE MANAGER us Rosalie Hargroveir Christen CAPSULE FILLING MACHINE OPERATOR LAB BLOOD ORDERABLES Final Result [facility] [place] [address] * CT Chest WO Contrast F/U Lung Screen Protocol (01/13/2024 3:25 PM ASSISTANT CASE MANAGER) Anatomical Region Laterality Modality Chest N/A Computed Tomogra phy 01/13/2024 5:28 PM ASSISTANT CASE MANAGER Impressions 01/13/2024 5:28 PM ASSISTANT CASE MANAGER 1. LungRADS Category 2 (benign) S. Recommend Low dose Screening CT of chest in 12 months. 2. 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 Electronically signed by: Evan Boothe M.D. Narrative 01/13/2024 5:28 PM ASSISTANT CASE MANAGER Examination: Low dose chest CT without intravenous [...] MD LAB BLOOD ORDERABL ES Final Result [facility] [place] [address] from Last 3 Months or Most Recently Relevant to Health Maintenance
--- OUTSIDE RECORDS SUMMARY | 2024-04-19 14:37 | XMS_ITS | Encounter Summary ---
Author Organization [facility] Healthcare Address [address] [place] [address] Care Team Providers Care Advanced Manufacturing Associate Name Role Phone Aidan Yadav Unavailable [phone] Jovanna BUTLER MD, Susi Unavailable [phone] Frank Martin MD Unavailable [phone] Cam Harris MD Unavailable [phone] Marino Quick DO Primary Care Provider Ayo Abbott MD Unavailable [phone] Kirk Chaparro MD Unavailable [phone] Shama Antunez RN Unavailable [phone] Encounter Details Date Type Department Care Team (Late st Contact Info) Description 03/04/2024 Telephone [facility] Radiology [address] [place] [address] Kirstin Soto, SAURAV Social History [...] materials from doctor or pharmacy Never 03/08/2024 [facility] Utilities Answer Date Recorded In the past 12 months has e [employer], gas, oil, or water company threatened to [...] often do you attend chur ch or amish services? Never 02/22/2024 Do you belong to any clubs o r organizations such as jewish groups, unions, fraternal or athletic groups, or [...] place to sleep or slept in a snf (including now)? No 03/25/2023 Housing Stability Vital Sign Answer Ramesh e Recorded In the last 12 months, was t here a time when you were not able to pay the mortgage or rent on time? No 02/22/2024 In the past 12 months, how m any times have you moved where you were living? 0 02/22/2024 At any time in the past 12 m [facility], were you homeless or living in a snf (including now)? No 02/22/2024 Personal Safety Answer [...] on file Legal Sex Male 3:24 AM FIRST CALENDER WORKER Gender Identity Male 11/30/2017 3:03 PM CDT Sexual Orientation Straight 06/05/2020 6: 53 AM CDT documented as of this encounter Plan of Treatment Not on file documented as of this encounter Visit Diagnoses Not on filedocumented in this encounter Additional Health Concerns Infection Onset Date Last Indicated Resolved Time COVID: Suspected 04/06/2024 04/06/2024 04/06/2024 1:16 PM FIRST CALENDER WORKER Rhino/Enterovirus 04/06/2024 04/06/2024 04/13/2024 3:07 AM FIRST CALENDER WORKER documented as of this encounter Care Teams Advanced Manufacturing Associate Relationship Specialty Start Date End Date Marino Quick [address] [place] [address] PCP - General Family Medicine 09/29/23 Aidan Yadav DO [address] [place] [address] Cylinder Worker Cardiology 06/05/20 [place] [address] [place] [address] Urologist Urology 11/05/21 [place] [address] [place] [address] Consulting Physician Interventional Cardiology 01/09/22 Cam Harris MD [address] [place] [address] [place] [phone] Consulting Physician Nephrology 01/07/23 Ayo Abbott MD [address] [facility] [address] [address] Flatbed Press Operator Dermatology 10/09/23 Kirk Chaparro MD [address] [facility] [address] [address] Surgeon Vascular Surgery 10/13/23 Shama Antunez, RN [address] [facility] [address] [place] [address] Computer Bookkeeper 01/20/24 documented as of this encounter
--- OUTSIDE RECORDS SUMMARY | 2024-04-19 14:37 | XMS_ITS | Encounter Summary ---
Author Organization [facility] Healthcare Address [address] [place] [address] Care Team Providers Care Grubber Name Role Phone Aidan Yadav Unavailable [phone] Jovanna BUTLER MD, Susi Unavailable [phone] Frank Martin MD Unavailable [phone] Cam Harris MD Unavailable [phone] Marino Quick DO Primary Care Provider Ayo Abbott MD Unavailable [phone] Kirk Chaparro MD Unavailable [phone] Shama Antunez RN Unavailable [phone] Encounter Details Date Type Department Care Team (Late st Contact Info) Description 04/19/2024 10:20 AM JOURNEYMAN PIPEFITTER Lab [facility] [address] [place] [phone] Kidney replaced by transplant; Encounter for long-term [...] materials from doctor or pharmacy Never 03/08/2024 [facility] Utilities Answer Date Recorded In the past 12 months has th e [employer], gas, oil, or water company threatened to [...] often do you attend chur ch or muslim services? Never 02/22/2024 Do you belong to any clubs o r organizations such as gnosticist groups, unions, fraternal or athletic groups, or [...] any time in the past 12 m [facility], were you homeless or living [...] on file Legal Sex Male 3:24 AM JOURNEYMAN PIPEFITTER Gender Identity Male 11/30/2017 3:03 PM CDT Sexual Orientation Straight 06/05/2020 6: 53 AM CDT documented as of this encounter Plan of Treatment Not on file documented as of this encounter Procedures Procedure Name Priority Date/Time Associated Diagnosis Comments EGFR Routine 04/19/2024 10:42 AM JOURNEYMAN PIPEFITTER Kidney replaced by transplant DIFFERENTIAL AUTO Routine 04/19/2024 10: 42 AM JOURNEYMAN PIPEFITTER Kidney replaced by transplant TACROLIMUS LEVEL, TROUGH Routine 04/19/2024 10:42 AM JOURNEYMAN PIPEFITTER Kidney replaced by transplant Encounter for long-term (current) use of medications CBC WITH AUTO DIFFERENTIAL Routine 04/19/2024 10:42 AM JOURNEYMAN PIPEFITTER Kidney replaced by transplant RENAL FUNCTION PANEL Routine 04/19/2024 10:42 AM JOURNEYMAN PIPEFITTER Kidney replaced by transplant documented in this encounter Results * (ABNORMAL) eGFR (04/19/2024 10:42 AM JOURNEYMAN PIPEFITTER) eGFR 24(L) >=60 mL/min/1. 73 m2 Comment: [...] reviewed 2020. Blood 04/19/2024 10:4 2 AM JOURNEYMAN PIPEFITTER 04/19/2024 11:14 AM JOURNEYMAN PIPEFITTER us Jack Morrison MD LAB BLOOD ORDERABLES Final R esult [facility] [place] [address] * (ABNORMAL) Differential, auto (04/19/2024 10:42 AM JOURNEYMAN PIPEFITTER) Neutrophil abs 13.1(H) 1.5 - 6.5 K/cumm Imm gran abs 0.9(H) 0.0 - 0.1 K/cumm [facility] Lymphocyte abs 0.3(L) 0.8 - 3.3 K/cumm [facility] Monocyte abs 0.6 0.2 - 0.8 K/cumm [facility] Eosinophil abs 0.0 0.0 - 0.5 K/cumm [facility] Basophil abs 0.1 0.0 - 0.1 K/cumm [facility] Neutrophil pct 87.8 % [facility] Comment: Interpretive Data Percent cell count reference ranges are not reported, since discordance with absolute values may lead to misinterpretation of CBC data. Current Interpretive Data was last revised on 2017. Imm gran pct 5.8 % [facility] Comment: Interpretive Data Percent cell count reference ranges are not reported, since discordance with absolute values may lead to misinterpretation of CBC data. Current Interpretive Data was last revised on 2017. Lymphocyte pct 1.8 % [facility] Comment: Interpretive Data Percent cell count reference ranges are not reported, since discordance with absolute values may lead to misinterpretation of CBC data. Current Interpretive Data was last revised on 2017. Monocyte pct 4.0 % [facility] Comment: Interpretive Data Percent cell count reference ranges are not reported, since discordance with absolute values may lead to misinterpretation of CBC data. Current Interpretive Data was last revised on 2017. Eosinophil pct 0.1 % [facility] Comment: Interpretive Data Percent cell count reference ranges are not reported, since discordance with absolute values may lead to misinterpretation of CBC data. Current Interpretive Data was last revised on 2017. Basophil pct 0.5 % [facility] Comment: Interpretive Data Percent cell count reference ranges are not reported, since discordance with absolute values may lead to misinterpretation of CBC data. Current Interpretive Data was last revised on 2017. Blood 04/19/2024 10:4 2 AM JOURNEYMAN PIPEFITTER 04/19/2024 11:14 AM JOURNEYMAN PIPEFITTER us Jack Morrison MD LAB BLOOD ORDERABLES Final R esult Performing Organization Address City/[facility] Co de Phone Number [facility] [place] [address] * (ABNORMAL) CBC with auto differential (04/19/2024 10:42 AM JOURNEYMAN PIPEFITTER) WBC 14.9(H) 3.8 - 9.9 K/cumm Hgb 11.6(L) 13.0 - 17.5 g/dL [facility] Hct 35.5(L) 38.9 - 50.3 % [facility] Plt 281 150 - 400 K/cumm [facility] MPV 10.2 9.1 - 12.3 fL [facility] RBC 3.79(L) 4.30 - 5.80 M/cumm [facility] MCV 93.7 81.3 - 96.4 fL [facility] MCH 30.6 27.1 - 33.3 pg [facility] MCHC 32.7 32.3 - 35.7 g/dL [facility] RDW CV 13.5 11.1 - 14.9 % [facility] RDW SD 45.1 35.7 - 48.1 fL [facility] NRBC abs 0.00 0.00 - 0.01 K/cumm [facility] Blood 04/19/2024 10:4 2 AM JOURNEYMAN PIPEFITTER 04/19/2024 11:14 AM JOURNEYMAN PIPEFITTER us Jack Morrison MD LAB BLOOD ORDERABLES Final R esult Performing Organization Address City/[facility]/ZIP Co de Phone Number [facility] [place] [address] * (ABNORMAL) Renal function panel (04/19/2024 10:42 AM JOURNEYMAN PIPEFITTER) Sodium 138 135 - 145 mmol/L Potassium, pl 4.7 3.3 - 4.9 mmol/L [facility] Chloride 99 97 - 110 mmol/L [facility] CO2 29 22 - 32 mmol/L [facility] Anion gap 10 2 - 15 mmol/L [facility] BUN 38(H) 6 - 25 mg/dL [facility] Creatinine 2.80(H) 0.80 - 1.30 mg/dL [facility] Glucose 125 70 - 199 mg/dL [facility] Comment: Interpretive Data Fasting [...] 2022. Calcium 10.7(H) 8.5 - 10.3 mg/dL [facility] Phosphorus, pl 2.5 2.3 - 4.5 mg/dL [facility] Albumin 3.9 3.5 - 5.0 g/dL [facility] Blood 04/19/2024 10:4 2 AM JOURNEYMAN PIPEFITTER 04/19/2024 11:14 AM JOURNEYMAN PIPEFITTER Jack Morrison MD LAB BLOOD ORDERABLES Final R esult [facility] One [facility] [place] [address] * Tacrolimus level trough (04/19/2024 10:42 AM JOURNEYMAN PIPEFITTER) Tacrolimus trough 7.7 ng/mL Comment: Interpretive Data Testing performed by liquid chromatography-tandem mass spectrometry. Therapeutic concentrations vary depending on type of transplanted organ and time elapsed since transplant. Typical trough concentrations range from 5-15 ng/mL. This test was developed and its performance characteristics determined by the [facility] consistent with CLIA requirements. This test has not been cleared or approved by the [place] Food and Drug administration. Current interpretive data last reviewed 2019. Blood 04/19/2024 10:4 2 AM JOURNEYMAN PIPEFITTER 04/19/2024 11:14 AM JOURNEYMAN PIPEFITTER us Jack Morrison MD LAB BLOOD ORDERABLES Final R esult [facility] [place] [address] documented in this encounter Visit Diagnoses Diagnosis Kidney replaced by transplant Encounter for long-term (current) use of medications Encounter for long-term (current) use of other medications documented in this encounter Care Teams Grubber Relationship Specialty Start Date End Date Marino Quick DO [address] [place] [address] PCP - General Family Medicine 09/29/23 Aidan Yadav DO [address] [facility] [address] [place] [address] Garden Consultant Cardiology 06/05/20 [place] [address] [place] [address] Urologist Urology 11/05/21 [place] [address] [place] [address] Consulting Physician Interventional Cardiology 01/09/22 Cam Harris MD [address] [place] [address] [address] [place] [phone] Consulting Physician Nephrology 01/07/23 Ayo Abbott MD [address] [place] [address] [address] [address] Mobile Disc Jockey Dermatology 10/09/23 Kirk Chaparro MD [address] [facility] [address] [address] Surgeon Vascular Surgery 10/13/23 Shama Antunez, SAURAV [address] [address] Human Resources Vice President 01/20/24 documented as of this encounter
--- OUTSIDE RECORDS SUMMARY | 2024-04-19 14:37 | XMS_ITS | Encounter Summary ---
Author Organization [facility] Healthcare Address [address] [place] [address] Care Team Providers Care Recording Studio Setup Worker Name Role Phone Aidan Yadav Unavailable [phone] Jovanna BUTLER MD, Susi Unavailable Frank Martin MD Unavailable [phone] Cam Harris MD Unavailable [phone] Marino Quick DO Primary Care Provider Ayo Abbott MD Unavailable Kirk Chaparro MD Unavailable [phone] Shama Antunez RN Unavailable [phone] Encounter Details Date Type Department Care Team (Late st Contact Info) Description 02/26/2024 Telephone [facility] Radiology [address] [place] [address] Tiffanie [place] RN Social History [...] materials from doctor or pharmacy Sometimes 02/25/2024 [facility] Utilities Answer Date Recorded In [...] often do you attend chur ch or church services? Never 02/22/2024 Do you belong to any clubs o r organizations such as jew groups, unions, fraternal or athletic groups, or [...] place to sleep or slept in a fdc (including now)? No 03/25/2023 Housing Stability Vital Sign Answer Ramesh e Recorded In the last 12 months, was t here a time when you were not able to pay the mortgage or rent on time? No 02/22/2024 In the past 12 months, how m any times have you moved where you were living? 0 02/22/2024 At any time in the past [address] [facility], were you homeless or living in a fdc (including now)? No 02/22/2024 Personal Safety Answer [...] on file Legal Sex Male 3:24 AM PLANT UTILITIES ENGINEER Gender Identity Male 11/30/2017 3:03 PM CDT Sexual Orientation Straight 06/05/2020 6: 53 AM CDT documented as of this encounter Plan of Treatment Not on file documented as of this encounter Visit Diagnoses Not on filedocumented in this encounter Additional Health Concerns Infection Onset Date Last Indicated Resolved Time COVID: Suspected 04/06/2024 04/06/2024 04/06/2024 1:16 PM PLANT UTILITIES ENGINEER Rhino/Enterovirus 04/06/2024 04/06/2024 04/13/2024 3:07 AM PLANT UTILITIES ENGINEER documented as of this encounter Care Teams Recording Studio Setup Worker Relationship Specialty Start Date End Date Marino QuickDO [address] [place] [address] PCP - General Family Medicine 09/29/23 Aidan Yadav DO [address] [facility] [address] [place] [address] Spot Washer Cardiology 06/05/20 [place] [address] [place] [address] Urologist Urology 11/05/21 [place] [address] [place] [address] Consulting Physician Interventional Cardiology 01/09/22 Cam Harris MD [address] [facility] [address] [place] [phone] Consulting Physician Nephrology 01/07/23 Ayo Abbott MD [address] [facility] [address] [address] Bi Developer Dermatology 10/09/23 Kirk Chaparro MD [address] [facility] [address] [address] Surgeon Vascular Surgery 10/13/23 Shama Antunez, RN [address] [facility] [address] [place] [address] Wireline Operator 01/20/24 documented as of this encounter
--- OUTSIDE RECORDS SUMMARY | 2024-04-19 14:37 | XMS_ITS | Encounter Summary ---
Author Organization [facility] Healthcare Address [address] [place] [address] Care Team Providers Care Systems Requirements Planner Name Role Phone Aidan Yadav Unavailable [phone] Jovanna BUTLER MD, Susi Unavailable Frank aMrtin MD Unavailable [phone] Cam Harris MD Unavailable [phone] Marino Quick DO Primary Care Provider Ayo Abbott MD Unavailable Kirk Chaparro MD Unavailable [phone] Shama Antunez RN Unavailable [phone] Encounter Details Date Type Department Care Team (Late st Contact Info) Description 04/19/2024 Telephone [facility] Transplant Kidney [address] [facility] [address] [phone] [place] [address] Carolina Ramires Social History Tobacco [...] materials from doctor or pharmacy Never 03/08/2024 [facility] Utilities Answer Date Recorded In the [...] any time in the past 12 m [facility], were you homeless or living in a [...] on file Legal Sex Male 3:24 AM SADDLE STITCH OPERATOR Gender Identity Male 11/30/2017 3:03 PM CDT Sexual Orientation Straight 06/05/2020 6: 53 AM CDT documented as of this encounter Miscellaneous Notes * Telephone Encounter - Carolina Ramires - 04/19/2024 9:51 AM CST The pt is currently at [facility], requesting one-time lab orders for weekly blood draw. Orders entered. LE STITCH OPERATOR documented in this encounter Plan of Treatment Not on file documented as of this encounter Results * Tacrolimus level trough (04/19/2024 10:42 AM SADDLE STITCH OPERATOR) Tacrolimus trough 7.7 ng/mL Comment: Interpretive Data Testing performed by liquid chromatography-tandem mass spectrometry. Therapeutic concentrations vary depending on type of transplanted organ and time elapsed since transplant. Typical trough concentrations range from 5-15 ng/mL. This test was developed and its performance characteristics determined by the [facility] consistent with CLIA requirements. This test has not been cleared or approved by the [place] Food and Drug administration. Current interpretive data last reviewed 2019. Blood 04/19/2024 10:4 2 AM SADDLE STITCH OPERATOR 04/19/2024 11:14 AM SADDLE STITCH OPERATOR us Jack Morrison MD LAB BLOOD ORDERABLES Final R esult [facility] One [facility] [place] [address] * (ABNORMAL) Renal function panel (04/19/2024 10:42 AM SADDLE STITCH OPERATOR) Pathologist [facility] Sodium 138 135 - 145 mmol/L Potassium, pl 4.7 3.3 - 4.9 mmol/L [facility] Chloride 99 97 - 110 mmol/L [facility] CO2 29 22 - 32 mmol/L [facility] Anion gap 10 2 - 15 mmol/L [facility] BUN 38(H) 6 - 25 mg/dL [facility] Creatinine 2.80(H) 0.80 - 1.30 mg/dL [facility] Glucose 125 70 - 199 mg/dL [facility] Comment: Interpretive Data Fasting glucose >/= [...] Calcium 10.7(H) 8.5 - 10.3 mg/dL [facility] Phosphorus, pl 2.5 2.3 - 4.5 mg/dL [facility] Albumin 3.9 3.5 - 5.0 g/dL [facility] Blood 04/19/2024 10:4 2 AM SADDLE STITCH OPERATOR 04/19/2024 11:14 AM SADDLE STITCH OPERATOR us Jack Morrison MD LAB BLOOD ORDERABLES Final R esult [facility] One [facility] [place] [address] * (ABNORMAL) CBC with auto differential (04/19/2024 10:42 AM SADDLE STITCH OPERATOR) WBC 14.9(H) 3.8 - 9.9 K/cumm Hgb 11.6(L) 13.0 - 17.5 g/dL [facility] Hct 35.5(L) 38.9 - 50.3 % [facility] Plt 281 150 - 400 K/cumm [facility] MPV 10.2 9.1 - 12.3 fL [facility] RBC 3.79(L) 4.30 - 5.80 M/cumm [facility] MCV 93.7 81.3 - 96.4 fL [facility] MCH 30.6 27.1 - 33.3 pg [facility] MCHC 32.7 32.3 - 35.7 g/dL [facility] RDW CV 13.5 11.1 - 14.9 % [facility] RDW SD 45.1 35.7 - 48.1 fL [facility] NRBC abs 0.00 0.00 - 0.01 K/cumm [facility] Blood 04/19/2024 10:4 2 AM SADDLE STITCH OPERATOR 04/19/2024 11:14 AM SADDLE STITCH OPERATOR us Jack Morrison MD LAB BLOOD ORDERABLES Final R esult Performing Organization Address City/State/[facility] Co de Phone Number [facility] [place] [address] documented in this encounter Visit Diagnoses Diagnosis Kidney replaced by transplant- Primary Encounter for long-term (current) use of medications Encounter for long-term (current) use of other medications documented in this encounter Care Teams Systems Requirements Planner Relationship Specialty Start Date End Date Marino Quick DO [address] [place] [address] PCP - General Family Medicine 09/29/23 Aidan Yadav DO [address] [facility] [address] [place], [place] [phone] Rhinestone Setter Cardiology 06/05/20 [place] [address] [place] [address] Urologist Urology 11/05/21 [place] [address] [place] [address] Consulting Physician Interventional Cardiology 01/09/22 Cam Harris MD [address] [place] [address] [address] [place] [phone] Consulting Physician Nephrology 01/07/23 Ayo Abbott MD [address] [place] [address] [address], [place] [address] Kiln Operator Helper Dermatology 10/09/23 Kirk Chaparro MD [address] [facility] [address] [address] Surgeon Vascular Surgery 10/13/23 Shama Antunez, RN [address] [facility] [address] [place] [address] Votator Machine Operator 01/20/24 documented as of this encounter
--- OUTSIDE RECORDS SUMMARY | 2024-04-19 14:37 | XMS_ITS | Clinical Summary ---
Author Organization [facility] Address [address] [place] [address] Care Team Providers Care Dry Charge Process Attendant Name Role Phone Jeanette Gonsalez MD Unavailable [phone] Marino Quick DO Primary Care Provider [phone] Allergies No known active allergies Medications amlodipine [...] Hyperkalemia 03/15/2018 ESRD (end stage renal disease) ([facility]) 01/25/2018 Overview (07/07/2018): Overview: Added automatically from request for surgery [id number] Anemia in chronic kidney disease 09/28/2017 Metabolic acidosis 09/28/2017 LOLLY (renal osteodystrophy) 09/28/2017 Stage 5 chronic kidney disease ([facility]) 09/28/2017 Overview (07/07/2018): Overview: Added automatically from request for surgery [id number] Atherosclerosis of coronary artery 03/17/2013 Essential hypertension 03/17/2013 Nephrotic syndrome 03/17/2013 Type 2 diabetes mellitus ([facility]) 03/17 Social History Tobacco Use Types Packs/Day [...] hypertension Other hyperlipidemia Type II diabetes mellitus ([facility]) HEMOGLOBIN, GLYCOSYLATED Routine 11/29/2018 3:20 PM CDT Essential hypertension Other hyperlipidemia Type II diabetes mellitus ([facility]) from Last 3 Months or Most Recently Relevant to Health Maintenance Results * (ABNORMAL) HEMOGLOBIN, GLYCOSYLATED (11/29/2018 3:20 PM CDT) HGB A1C 5.9(H) <5.7 % 11/29/2018 4:06 PM CDT [facility] Comment: 5.7 TO 6.4% INCREASED RISK OF DIABETES > OR = 6.5% CONSISTENT WITH DIABETES PER ADA GUIDELINES ESTIMATED AVG GLUCOSE 123 70 - 140 MG/DL 11/29/2018 4:06 PM CDT [facility] 11/29/2018 3:20 PM CDT Nicholas David MD LABORATORY Final Result [facility] [address] [place] [address], * (ABNORMAL) LIPID PANEL (11/29/2018 3:20 PM CDT) CHOLESTEROL 216(H) <200 MG/DL 11/29/2018 5:35 PM CDT [facility] Comment: THE NATIONAL LIPID ASSOCIATION AND THE NATIONAL CHOLESTEROL EDUCATION PROGRAM (NCEP) HAVE SET THE FOLLOWING GUIDELINES FOR TOTAL CHOLESTEROL IN ADULTS AGES 18 AND UP. DESIRABLE: <200 BORDERLINE HIGH: 200-239 HIGH: > OR = 240 TRIGLYCERIDES 203(H) <150 MG/DL 11/29/2018 5:35 PM CDT [facility] Comment: THE NATIONAL LIPID ASSOCIATION AND THE NATIONAL CHOLESTEROL EDUCATION PROGAM (NCEP) HAVE SET THE FOLLOWING GUIDELINES FOR TRIGLYCERIDES IN ADULTS AGES 18 AND UP. NORMAL: <150 BORDERLINE HIGH: 150 TO 199 HIGH: 200 TO 499 VERY HIGH: >499 HDL 40 >39 MG/DL 11/29/2018 5:35 PM CDT [facility] Comment: THE NATIONAL LIPID ASSOCIATION AND THE NATIONAL CHOLESTEROL EDUCATION PROGAM (NCEP) HAVE SET THE FOLLOWING GUIDELINES FOR HDL CHOLESTEROL IN ADULTS AGES 18 AND UP. MALES: >39 FEMALES: >49 LDL (CALCULATED) 135(H) <100 MG/DL 11/30/19 19 5:35 PM CDT [facility] Comment: THE NATIONAL LIPID ASSOCIATION AND THE NATIONAL CHOLESTEROL EDUCATION PROGAM (NCEP) HAVE SET THE FOLLOWING GUIDELINES FOR LDL CHOLESTEROL IN ADULTS AGES 18 AND UP. DESIRABLE: <100 ABOVE DESIRABLE: 100 TO 129 BORDERLINE HIGH: 130 TO 159 HIGH: 160 TO 189 VERY HIGH: >189 VLDL CALCULATION 41 MG/DL 11/30/19 19 5:35 PM CDT [facility] Comment:REFERENCE RANGE NOT ESTABLISHED CHOL/HDL RATIO 5.4 11/29/2018 5:35 PM CDT [facility] Comment:REFERENCE RANGE NOT ESTABLISHED LDL/HDL 3.4 11/29/2018 5:35 PM CDT [facility] Comment:REFERENCE RANGE NOT ESTABLISHED NON HDL CHOLESTEROL 176 MG/DL 11/29/2018 5:35 PM CDT [facility] Comment:REFERENCE RANGE NOT ESTABLISHED 11/29/2018 3:20 PM CDT Nicholas David MD LABORATORY Final Result [facility] [address] [place] [address], from Last 3 Months or Most Recently Relevant to Health Maintenance Insurance [facility] MEDICARE [facility] GENERIC - COMMERCIAL on file GENERIC - COMMERCIAL MEDICARE Care Teams Dry Charge Process Attendant Relationship Specialty Start Date End Date Marino Quick DO [address] [place] [address] PCP - General FAMILY PRACTICE 10/29/21 Jeanette Gonsalez MD [address] [place] [address] Consulting Physician INTERNAL MEDICINE 07/07/18
--- OUTSIDE RECORDS SUMMARY | 2024-04-19 14:37 | XMS_ITS | Encounter Summary ---
Author Organization [facility] Address [address] [place] [address] Care Team Providers Care Terra Cotta Roofer Helper Name Role Phone Aidan Yadav Unavailable [phone] Jovanna BUTLER MD, Susi Unavailable [phone] Frank Martin MD Unavailable [phone] Cam Harris MD Unavailable [phone] Marino Quick DO Primary Care Provider Ayo Abbott MD Unavailable Kirk Chaparro MD Unavailable [phone] Shama Antunez RN Unavailable [phone] Encounter Details Date Type Department Care Team (Late st Contact Info) Description 03/07/2024 Telephone [facility] [address] [place] [address] Tiffanie Milton RN Social History [...] often do you attend chur ch or gnosticism services? Never 02/22/2024 Do you belong to any clubs o r organizations such as congregation groups, unions, fraternal or athletic groups, or [...] any time in the past 12 m [facility], were you homeless or living in [...] on file Legal Sex Male 3:24 AM HOME FURNISHINGS SALES REPRESENTATIVE Gender Identity Male 11/30/2017 3:03 PM CDT Sexual Orientation Straight 06/05/2020 6: 53 AM CDT documented as of this encounter Plan of Treatment Not on file documented as of this encounter Visit Diagnoses Not on filedocumented in this encounter Additional Health Concerns Infection Onset Date Last Indicated Resolved Time COVID: Suspected 04/06/2024 04/06/2024 04/06/2024 1:16 PM HOME FURNISHINGS SALES REPRESENTATIVE Rhino/Enterovirus 04/06/2024 04/06/2024 04/13/2024 3:07 AM HOME FURNISHINGS SALES REPRESENTATIVE documented as of this encounter Care Teams Terra Cotta Roofer Helper Relationship Specialty Start Date End Date Marino QuickDO [address] [place] [address] PCP - General Family Medicine 09/29/23 Aidan Yadav DO [address] [facility] [address] [place] [address] Oil Rag Washer Cardiology 06/05/20 [place] [address] [place] [address] Urologist Urology 11/05/21 [place] [address] [place] [address] Consulting Physician Interventional Cardiology 01/09/22 Cam Harris MD [address] [facility] [address] [place] [address] Consulting Physician Nephrology 01/07/23 Ayo Abbott MD [address] [facility] [address], [place] [address] Traffic Worker Dermatology 10/09/23 Kirk Chaparro MD [address] [facility] [address] [place] [address] Surgeon Vascular Surgery 10/13/23 Shama Antunez, RN [address] [facility] [address] [place] [address] Dba 01/20/24 documented as of this encounter
--- OUTSIDE RECORDS SUMMARY | 2024-04-19 14:38 | XMS_ITS | Continuity of Care Document ---
Author Organization [facility] Address [address] [place] [address] Phone Care Team Providers Care V Belt Curer Name Role Phone Zayda WRIGHT, Kimberly Unavailable [...] Diagnoses Date Provider Providers Copied on Encounter [facility], [address] [place] [address], [id number], tel:[phone] [facility] No Information Zayda Harris. [address] [place] [address], [id number], . tel:[phone] [facility], [address] [place] [address], [id number], tel:[phone] [facility] Compression of VeinEnd stage renal disease Zayda Harris. [address] [place] [address], [id number], . tel:[phone] Referring Provider: [place] Á[place], [address] [facility] [address] [facility] [address], [place], [address]. tel:[phone] [facility], [address] [place] [address], [id number], tel:[phone] [facility] Compression of VeinEnd stage renal disease Zayda Harris. [address] [place] [address], [id number], . tel:[phone] Referring Provider: [place] Á[place], [address] [facility] [address] [facility] [address], [place], [address]. tel:[phone] As per patient privacy policy some of the clinical information may not be visible. Family History Family Member Type Diagnosis Age At Onset No Information Payers Payer name Insurance type Covered libertarian ID Authoriza tion(s) Medicare [place] [id number] [facility] [id number] Social History Type Description Quantity Date Captured Comments Sex Male Smoking Status No Information Sexual Orientation Straight or heterosexual Gender Identity Male Chief Complaint And Reason For Visit No Information Reason For Referral Reason For Referral No Information Plan Of Treatment Date Type Action Status Future Order: Radiology Order Up per Body Flouroscopy ([id number]), Ordered on: Ordered History Of Present Illness Encounter Date Complaint History Of Prese nt Illness No Information Functional Status Date Functional Assessmen t No Information Instructions Date Instruction Additional Infor mation No Information Assessments Type Assessment Date No Information Patient Care Teams Name Effective Dates (start - stop) Status Members No Information
--- OUTSIDE RECORDS SUMMARY | 2024-04-19 14:38 | XMS_ITS | Clinical Summary ---
Author Organization [facility] Address [address] [place] [address] Care Team Providers Care Power Press Operator Name Role Phone Unavailable Primary Care Provider [...] age to complete this topic Insurance MEDICARE [facility] CHOICE ([id number])
--- OUTSIDE RECORDS SUMMARY | 2024-04-19 14:38 | XMS_ITS | Encounter Summary ---
Author Organization [facility] Address [address] [place] [address] Phone Care Team Providers Care Silver Steward Name Role Phone Gamaliel Evans MD Primary Care Provider + Gamaliel Evans MD Primary Care Provider + Nicholas David MD Primary Care Provider Gamaliel Evans MD Primary Care Provider + Lynne Davies RN Unavailable Domitila Manrique MD Unavailable Aidan Yadav DO Unavailable [phone] Domitila Manrique MD Unavailable Jovanna BUTLER MD, Courtney Unavailable Frank Martin MD Unavailable [phone] Cam Harris MD Unavailable [phone] Marino Quick DO Primary Care Provider Ayo Abbott MD Unavailable Kirk Chaparro MD Unavailable Shama Antunez RN Unavailable [phone] Encounter Details Date Type Department Care Team (Latest Contact Info) Description 11/26/2016 Orders Only [facility] CONVERSION Scanning, Provider Social History Tobacco Use Types Packs/Day Years Used Date Smoking Tobacco: Never Assessed Sex and Gender Information Value Date Recorded Sex Assigned at Not on file Legal Sex Male 3:24 AM CORRECTIONAL MAINTENANCE TECHNICIAN Gender Identity Male 11/30/2017 3:03 PM CDT [...] COVID: Suspected 01/06/2022 01/06/2022 01/06/2022 8:07 PM CORRECTIONAL MAINTENANCE TECHNICIAN COVID: Suspected 12/22/2022 12/22/2022 12/22/2022 4:59 PM CDT COVID: Suspected 02/27/2023 02/27/2023 02/27/2023 9:27 PM CORRECTIONAL MAINTENANCE TECHNICIAN COVID: Suspected 03/24/2023 03/25/2023 03/25/2023 5:17 AM CORRECTIONAL MAINTENANCE TECHNICIAN COVID: Suspected 04/06/2024 04/06/2024 04/06/2024 1:16 PM CORRECTIONAL MAINTENANCE TECHNICIAN Rhino/Enterovirus 04/06/2024 04/06/2024 04/13/2024 3:07 AM CORRECTIONAL MAINTENANCE TECHNICIAN documented as of this encounter Care Teams Silver Steward Relationship Specialty Start Date End Date Gamaliel Evans MD [address] [facility] [address] [place] [address] PCP - General 08/04/16 04/12/17 Gamaliel Evans MD [address] [facility] [address] [place] [address] PCP - General 04/13/17 04/13/17 Nicholas David MD [address] [place] [address] PCP - General 04/14/17 06/14/17 Gamaliel Evans MD [address] [facility] [address] [address] PCP - General 06/15/17 09/28/23 Marino Quick DO [address] [place] [address] PCP - General Family Medicine 09/29/23 Lynne Davies, RN [address] [facility] [address] [place] [address] Patient Access Registrar 06/05/2001/19 Domitila Manrique MD [address] [facility] [address] [place] [address] Referring Physician Nephrology 06/05/20 10/02/20 Aidan Yadav DO [address] [facility] [address] [place] [address] Inspector Water Pollution Control Cardiology 06/05/20 Domitila Manrique MD [address] [place] [address] Referring Physician Nephrology 10/03/20 01/06/23 [place] [address] [place] [address] Urologist Urology 11/05/21 [place] [address] [place] [address] Consulting Physician Interventional Cardiology 01/09/22 Cam Harris MD [address] [place] [address] [address] [place] [address] Consulting Physician Nephrology 01/07/23 Ayo Abbott MD [address] [id number] Inbound Sales Manager Dermatology 10/09/23 Kirk Chaparro MD [address] [address] Surgeon Vascular Surgery 10/13/23 Shama Antunez RN [address] [facility] [address] [place] [address] Patient Access Registrar 01/20/24 documented as of this encounter
--- OUTSIDE RECORDS SUMMARY | 2024-04-19 14:38 | XMS_ITS | Encounter Summary ---
Author Organization [facility] Address [address] [place] [address] Care Team Providers Care Screen And Cyclone Repairer Name Role Phone Nicholas David MD Primary Care Provider [phone] Jeanette Gonsalez MD Unavailable [phone] Marino Quick DO Primary Care Provider [phone] Encounter Details Date Type Department Care Team (Late st Contact Info) Description 07/28/2018 Peritoneal dialysis [facility] [address] [place] [address] [place] [address] [place] [address] Social History Tobacco Use Types Packs/Day Years [...] on filedocumented in this encounter Care Teams Screen And Cyclone Repairer Relationship Specialty Start Date End Date Nicholas David MD [address] [place] [address] PCP - General FAMILY PRACTICE 07/07/18 10/28/21 Marino Quick DO [address] [place] [address] PCP - General FAMILY PRACTICE 10/29/21 Jeanette Gonsalez MD [address] [place] [address] Consulting Physician INTERNAL MEDICINE 07/07/18 documented as of this encounter
--- OUTSIDE RECORDS SUMMARY | 2024-04-19 14:38 | XMS_ITS ---
Author Organization [facility] Address [address] [place] [address] Care Team Providers Care Banana Handler Name Role Phone Aidan Yadav DO Unavailable [phone] Jovanna BUTLER MD, Susi Unavailable [phone] Frank Martin MD Unavailable [phone] Cam Harris MD Unavailable [phone] Marino Quick DO Primary Care Provider Ayo Abbott MD Unavailable [phone] Kirk Chaparro MD Unavailable [phone] Shama Antunez RN Unavailable [phone] Transplant Episode Kidney Recipient [facility] ([place], [place]) - [facility] Organ Received: Left Kidney Transplanted on 01/20/2024 Marked as Active Follow-up on 01/20/2024 Reason: Transplanted at [facility] Kidney CoordinatorShama Antunez RN Fax: N/A Email: N/A Platinum Organ Diagnosis Organ Primary Contributory Kidney Diabetes [...] Fax Email Shama Antunez RN Kidney Coordinator [phone] N/A N/A Milly Polanco Secondary Residential Insurance Inspector N/A N/A N/A Carolyn Siddiqui Pick Pack Worker [phone] N/A N/A Cam Harris MD Referring Physician [phone] N/A Shama Antunez RN Packaging Manager [phone] N/A N/A Carolina Ramires Primary Residential Insurance Inspector N/A N/A N/A Archana Jackson MD Transplant Licensing Analyst [phone] N/A Lynne Davies RN Pre Coordinator [phone] N/A N/A Luz Hood RN Secondary Coordinator [phone] N/A N/A Events Post-Transplant Pre-Transplant Admitted: 01/18/2024 Referred: 05/14/2020 Transplanted: 01/20/2024 Evaluation began: 1 Discharged: 01/28/2024 Committee: 04/08/2021 UNOS qualified: 07/08/2018 Center waitlisted: 2 Appointments (03/19/2024 - 05/17/2024) When With Visit Type Description 04/06/2024 Transplant - Babatunde, S Return Enco unter for aftercare following kidney transplant (Primary Dx); Shortness of breath; longterm current use of immunosuppressive drug; Kidney replaced by transplant; Hypertension, unspecified type Dialysis History Dialysis History Start End Type Comments Center 10/28/2021 01/20/2024 Hem[facility] 07/08/2018 10/27/2021 Hemo M/W/F PM [facility] Dialysis Center Information Center Phone Fax Address VALERIY Garcia [facility] [phone] [address] [facility] [address] [facility] [phone] 1 [facility] [address]
--- OUTSIDE RECORDS SUMMARY | 2024-04-19 14:38 | XMS_ITS | Clinical Summary ---
Author Organization [facility] Address [address] [place] [address] Phone Care Team Providers Care Event Specialist Name Role Phone Marino Quick MD Primary Care Provider [phone] Medications carbidopa-levodo pa (SINEMET) 25-100 MG Tablet [...] topic Insurance MEDICARE COMMERCIAL GENERIC Care Teams Event Specialist Relationship Specialty Start Date End Date Marino Quick MD [address] [place] [address] PCP - General Family Medicine 12/24/23
[2024-04-19 14:56] LABS: Basophils Absolute Auto 0.04 K/mm3 (0.00-0.10); Basophils Percent Auto 0.3 % (0.0-1.0); Eosinophils Absolute Auto 0.01 K/mm3 (0.02-0.50); Eosinophils Percent Auto 0.1 % (1.0-6.0); Hematocrit 32.2 % (37.0-46.0); Hemoglobin 10.3 g/dL (12.4-15.3); Immature Granulocyte Absolute 0.45 K/mm3 (0.00-0.00); Immature Granulocyte Percent A 3.6 % (0.0-0.0); Lymphocytes Absolute Auto 0.21 K/mm3 (1.10-4.50); Lymphocytes Percent Auto 1.7 % (18.0-42.0); Mean Corpuscular Hemoglobin 30.1 pg (27.0-31.0); Mean Corpuscular Volume 94.2 fL (78.0-102.0); Monocytes Percent Auto 3.2 % (2.0-11.0); Neutrophils Absolute Auto 11.22 K/mm3 (1.70-7.20); Neutrophils Percent Auto 91.1 % (50.0-70.0); Platelet Count Result 224 K/mm3 (150-420); Red Blood Count 3.42 M/mm3 (4.70-6.10); Red Cell Distribution Width 13.2 % (11.6-14.4); White Blood Count 12.3 K/mm3 (4.8-10.8)
[2024-04-19 15:08] LABS: INR 1.2; Partial Thromboplastin Time 37.3 Sec (23.9-30.70); Prothrombin Time 12.8 Seconds (9.50-12.1)
[2024-04-19 15:14] LABS: SARS-CoV-2 RNA PCR Negative (Negative)
[2024-04-19 15:15] LABS: Alanine Aminotransferase 9 U/L (16-63); Alkaline Phosphatase 160 U/L (46-116); Anion Gap 6 mmol/L (4-12); Aspartate Amino Transferase < 10 U/L (15-37); Bilirubin,Total 0.4 mg/dL (0.00-1.00); Blood Urea Nitrogen 37 mg/dL (7-18); Calcium 9.9 mg/dL (8.5-10.1); Carbon Dioxide 31 mmol/L (21-32); Chloride 100 mmol/L (98-108); Estimated CRCL calculation 31 ml/min; Estimated Glomerular Filt Rate 21; Glucose 159 mg/dL (70-99); NT Pro B Type Natriuretic Pept 2838 pg/mL (0-125); Osmolality Calculated 295 mOsm/kg (285-295); Sodium 137 mmol/L (136-145); Total Protein 6.5 g/dL (6.4-8.2); Troponin I 31.5 ng/L (0.00-60.4)
[2024-04-19 15:15] LABS: Influenza A QL RT-PCR Negative (Negative); Influenza B QL RT-PCR Negative (Negative); RSV RNA, RT-PCR Negative (Negative)
[2024-04-19 15:20] LABS: CRP 5.5 mg/dL (0.0-0.9)
[2024-04-19] MEDS: cefTRIAXone 2 GM/NS 100 ML 2 GM/100 ML BAG IVPB (15:56)
[2024-04-19] MEDS: AZITHROMYCIN 250 MG TABLET 500 MG PO (15:56)
--- NOTE | 2024-04-19 18:45 | PC.NURSE ---
ASSUMED CARE. REPORT RECEIVED FROM JOSLYN MG
[2024-04-19] MEDS: ACETAMINOPHEN 500 MG TABLET 1000 MG PO (19:24)
--- NOTE | 2024-04-19 20:02 | PC.NURSE ---
PATIENT HAS BEEN MOVED ONTO A HOSPITAL BED. REMOVED FROM INSOLE FILLER SO HE CAN MOVE AROUND THE ROOM. WILL PLACE BACK ON
--- NOTE | 2024-04-19 20:28 | PC.NURSE ---
PATIENT RESTING ON HOSPITAL BED WITH DAUGHTER AT HIS SIDE. NO NEEDS VOICED AT THIS TIME. WOB NON LABORED. OXYGEN AT [address] CALL LIGHT IN REACH.
--- NOTE | 2024-04-19 20:46 | PC.NURSE ---
IS BACK AT THE BEDSIDE. NO NEEDS VOICED
--- NOTE | 2024-04-19 21:17 | PC.NURSE ---
EVENING DOSE OF CARVEDILOL WAS GIVEN FROM HOME MEDICATIONS BY . OK PER DR HARE. PATIENT WOB NON LABORED AT THIS TIME. RESTING QUIETLY ON HOSPITAL BED. CALL LIGHT IN REACH
--- NOTE | 2024-04-19 22:05 | PC.NURSE ---
GOING HOME. WILL UPDATE VIA PHONE WHEN AND IF ROOM ASSIGNMENT IS GIVEN. SHE WILL BE BACK IN THE AM. PATIENT CURRENTLY RESTING ON HOSPITAL BED. CALL LIGHT IN REACH
--- NOTE | 2024-04-19 23:00 | PC.NURSE ---
RESTING QUIETLY ON HOSPITAL BED. RESP EVEN AND UNLABORED. CALL LIGHT IN REACH.
[2024-04-19] MEDS: PREGABALIN (*CRX) 50 MG CAPSULE 150 MG PO (23:27)
[2024-04-20] VITALS (97 sets, daily range): BP systolic 87–160; BP diastolic 40–91; PULSE 55–76; RESP 11–23; TEMP 36.9; O2SAT 84–100
--- NOTE | 2024-04-20 00:51 | PC.NURSE ---
PATIENT IS RESTING QUIETLY ON HOSPITAL BED. RESP EVEN AND UNLABORED. APPEARS TO BE SLEEPING. OXYGEN AT 3 LITER NC IN NARES. WOB NON LABORED. CALL LIGHT IN REACH. CURTAIN OPENED FOR INCREASED MONITORING WHILE PATIENT SLEEPING
--- NOTE | 2024-04-20 02:05 | PC.NURSE ---
PATIENT IS RESTING ON HOSPITAL BED. APPEARS TO BE SLEEPING. WOB NON LABORED. RESP EVEN RISE AND FALL OF THE CHEST. OXYGEN IN PLACE TO NARES. CALL LIGHT IN REACH
--- NOTE | 2024-04-20 03:01 | PC.NURSE ---
APPEARS TO BE SLEEPING. RESP EVEN AND UNLABORED. CALL LIGHT IN REACH.
--- NOTE | 2024-04-20 04:00 | PC.NURSE ---
RESTING QUIETLY ON HOSPITAL BED. RESP EVEN AND UNLABORED. CALL LIGHT IN REACH
--- NOTE | 2024-04-20 05:07 | PC.NURSE ---
WATCHING TV IN THE ROOM. CURRENTLY DENIES ANY NEEDS. CALL LIGHT IN REACH
--- NOTE | 2024-04-20 06:10 | PC.NURSE ---
RESTING QUIETLY ON HOSPITAL BED. RESP EVEN AND UNLABORED. APPEARS TO BE SLEEPING. CALL LIGHT IN REACH
[2024-04-20] MEDS: FLUTICASONE/UMECLIDIN/VILANTER 100-62.5-25 MCG ELLIPTA 1 PUFF INHALATION (08:22)
[2024-04-20] MEDS: carvediloL 6.25 MG TABLET PO ×2 (08:24→21:05)
[2024-04-20] MEDS: LEVOTHYROXINE SODIUM 100 MCG TABLET PO (08:24)
[2024-04-20] MEDS: SERTRALINE HCL 25 MG TABLET BY MOUTH (08:25)
[2024-04-20] MEDS: ROSUVASTATIN 10 MG TABLET 20 MG PO ×2 (08:25→21:05)
[2024-04-20] MEDS: PREGABALIN (*CRX) 50 MG CAPSULE 150 MG PO ×2 (08:26→21:05)
[2024-04-20] MEDS: FUROSEMIDE 40 MG TABLET 80 MG PO (08:27)
[2024-04-20] MEDS: CLOPIDOGREL BISULFATE 75 MG TABLET BY MOUTH (08:27)
[2024-04-20 08:40] LABS: Glucose Point of Care 110 mg/dl (65-105)
[2024-04-20] MEDS: INSULIN GLARGINE (*BKC) 1,000 UNITS/10 ML VIAL 20 UNITS SUB-Q (08:47)
[2024-04-20] MEDS: AZITHROMYCIN 500 MG/NS 250 ML 500 MG/250 ML BAG 250 MG IVPB (11:04)
--- NOTE | 2024-04-20 11:24 | PC.NURSE ---
[facility] AT 1124 UPDATED ON PT STATUS PT REMAINS ON WAITING LIST WAITING FOR DISCHARGED TO OPEN A BED UP
--- NOTE | 2024-04-20 11:42 | PC.NURSE ---
Bedside glucose 218
[2024-04-20] MEDS: FUROSEMIDE INJ 40 MG/4 ML VIAL (11:58)
[2024-04-20] MEDS: INSULIN HUMAN LISPRO (*BKC) 1,000 UNITS/10 ML VIAL SUB-Q (12:45)
[2024-04-20 14:51] LABS: Glucose Point of Care 218 mg/dl (65-105)
--- NOTE | 2024-04-20 15:04 | PC.NURSE ---
patient had a med. bowel movement mixed with urine
[2024-04-20 16:39] LABS: Glucose Point of Care 140 mg/dl (65-105)
--- NOTE | 2024-04-20 19:22 | PC.NURSE ---
patient report received from SAURAV Thomson for continuation of care on science interpreter. patient boarding for bed at transfer hospital. RN monitoring. call light within reach.
--- NOTE | 2024-04-20 20:15 | PC.NURSE ---
patient sitting upright on hospital bed, spouse at bedside. patient reports headache, requesting Tylenol and patient spouse asking about nighttime meds. information relayed to ERP Dr. Vail who will review and add orders.
[2024-04-20] MEDS: ACETAMINOPHEN 325 MG TABLET 650 MG PO (20:59)
[2024-04-20] MEDS: SERTRALINE HCL 25 MG TABLET PO (21:05)
[2024-04-20] MEDS: APIXABAN 2.5 MG TABLET 5 MG PO (21:05)
[2024-04-20] MEDS: hydrOXYzine HCL 25 MG TABLET PO (21:05)
--- NOTE | 2024-04-20 21:15 | PC.NURSE ---
patient medicated per order, see MAR. patient provided his home medications as patient spouse Jonathan [phone] brought all his medications including pill bottles and monthtly pill organizer, requested patient to take what she had already brought and RN unable to scan bottles from patient supply. ERP Dr. Yared mckeoned and correct orders entered. see MAR. patient spouse leaving, heading home to rest, plans to be back tomorrow. patient remains connected to zipper repairer, bp cuff and o2 sensor. lights dimmed for comfort. patient denies further needs, call light within reach.
--- NOTE | 2024-04-20 22:32 | PC.NURSE ---
patient resting in ED 3. RN monitoring. awaiting bed to open at transfer facility. denies current needs.
--- NOTE | 2024-04-20 23:32 | PC.NURSE ---
patient asleep on bed. RN monitoring.
[2024-04-21] VITALS (58 sets, daily range): BP systolic 107–163; BP diastolic 39–92; PULSE 57–82; RESP 12–24; TEMP 35.5–36.6; O2SAT 85–98
[2024-04-21 00:16] LABS: Glucose Point of Care 158 mg/dl (65-105)
--- NOTE | 2024-04-21 00:49 | PC.NURSE ---
patient asleep in ED 3, awaiting transfer bed. call light within reach. bedside table within reach.
--- NOTE | 2024-04-21 02:17 | PC.NURSE ---
patient asleep on bed. call light within reach. RN monitoring.
--- NOTE | 2024-04-21 03:40 | PC.NURSE ---
patient checked, dexcom reads 138. patient given fresh ice water in mug per request. call light within reach. thermostat adjusted per patient request.
[2024-04-21] MEDS: LEVOTHYROXINE SODIUM 100 MCG TABLET PO (06:45)
--- NOTE | 2024-04-21 07:13 | PC.NURSE ---
patient report given to SAURAV Thomson for continuation of care on day shift. patient resting on bed in ED 3. awaiting bed at transfer facility.
[2024-04-21 07:51] LABS: Glucose Point of Care 125 mg/dl (65-105)
[2024-04-21] MEDS: APIXABAN 2.5 MG TABLET 5 MG PO (08:15)
[2024-04-21] MEDS: CLOPIDOGREL BISULFATE 75 MG TABLET BY MOUTH (08:16)
[2024-04-21] MEDS: FUROSEMIDE 40 MG TABLET 80 MG PO (08:17)
[2024-04-21] MEDS: carvediloL 6.25 MG TABLET PO (08:17)
[2024-04-21] MEDS: PREGABALIN (*CRX) 50 MG CAPSULE 150 MG PO (08:18)
[2024-04-21] MEDS: ROSUVASTATIN 10 MG TABLET 20 MG PO (08:19)
[2024-04-21] MEDS: SERTRALINE HCL 25 MG TABLET BY MOUTH (08:20)
[2024-04-21] MEDS: FLUTICASONE/UMECLIDIN/VILANTER 100-62.5-25 MCG ELLIPTA 1 PUFF INHALATION (08:22)
[2024-04-21] MEDS: INSULIN GLARGINE (*BKC) 1,000 UNITS/10 ML VIAL 20 UNITS SUB-Q (08:23)
[2024-04-21] MEDS: ONDANSETRON HCL ODT 4 MG TABLET PO (08:41)
[2024-04-21 08:57] LABS: Basophils Absolute Auto 0.07 K/mm3 (0.00-0.10); Basophils Percent Auto 0.7 % (0.0-1.0); Eosinophils Absolute Auto 0.04 K/mm3 (0.02-0.50); Eosinophils Percent Auto 0.4 % (1.0-6.0); Hematocrit 35.2 % (37.0-46.0); Hemoglobin 11.2 g/dL (12.4-15.3); Immature Granulocyte Percent A 3.2 % (0.0-0.0); Lymphocytes Absolute Auto 0.33 K/mm3 (1.10-4.50); Lymphocytes Percent Auto 3.5 % (18.0-42.0); Mean Corpuscular HGB Conc 31.8 g/dL (32-36); Mean Corpuscular Hemoglobin 30.5 pg (27.0-31.0); Mean Corpuscular Volume 95.9 fL (78.0-102.0); Mean Platelet Volume 9.8 fl (8.7-11.0); Monocytes Absolute Auto 0.44 K/mm3 (0.10-0.90); Monocytes Percent Auto 4.7 % (2.0-11.0); Neutrophils Absolute Auto 8.25 K/mm3 (1.70-7.20); Neutrophils Percent Auto 87.5 % (50.0-70.0); Platelet Count Result 290 K/mm3 (150-420); Red Blood Count 3.67 M/mm3 (4.70-6.10); Red Cell Distribution Width 13.6 % (11.6-14.4); White Blood Count 9.4 K/mm3 (4.8-10.8)
[2024-04-21 09:13] LABS: Albumin Level 3.1 g/dL (3.4-5.0); Alkaline Phosphatase 156 U/L (46-116); Anion Gap 8 mmol/L (4-12); Bilirubin,Total 0.4 mg/dL (0.00-1.00); Blood Urea Nitrogen 40 mg/dL (7-18); Calcium 10.2 mg/dL (8.5-10.1); Carbon Dioxide 27 mmol/L (21-32); Chloride 104 mmol/L (98-108); Estimated CRCL calculation 33 ml/min; Estimated Glomerular Filt Rate 23; Glucose 134 mg/dL (70-99); Osmolality Calculated 299 mOsm/kg (285-295); Potassium 4.9 mmol/L (3.5-5.1); Sodium 139 mmol/L (136-145); Total Protein 6.9 g/dL (6.4-8.2)
[2024-04-21 09:16] LABS: Lactic Acid Reflex 1.6 mmol/L (0.4-2.0)
[2024-04-21 09:26] LABS: Alanine Aminotransferase 6 U/L (16-63); Aspartate Amino Transferase 10 U/L (15-37)
--- NOTE | 2024-04-21 10:10 | PC.NURSE ---
0905 pt assisted with bed bath and clean cloths put on bandaides changed on toes and left heel pt states he feels much better new labs drawn this am
[2024-04-21] MEDS: AZITHROMYCIN 500 MG/NS 250 ML 500 MG/250 ML BAG 250 MG IVPB (10:15)
--- NOTE | 2024-04-21 12:58 | PC.NURSE ---
PRELIMINARY BLOOD CULTURE NO GROWTH TO DATE
--- NOTE | 2024-04-25 12:58 | PC.NURSE ---
FINAL BLOOD CULTURE NO GROWTH AFTER 5 DAYS
== END 2024-04-21 11:36 | disposition home or self-care (01) ==
PROVIDERS: Emergency Medicine; Internal Medicine Critical Care Medicine; Emergency Provider Emergency Medicine; PCP Family Medicine
DX: J18.9 Pneumonia, unspecified organism (principal); J44.9 Chronic obstructive pulmonary disease, unspecified; E11.9 Type 2 diabetes mellitus without complications; I11.0 Hypertensive heart disease with heart failure; I50.9 Heart failure, unspecified; I48.91 Unspecified atrial fibrillation; I25.810 Atherosclerosis of coronary artery bypass graft(s) without angina pectoris; Z79.01 Long term (current) use of anticoagulants; Z79.4 Long term (current) use of insulin; Z79.891 Long term (current) use of opiate analgesic; Z79.899 Other long term (current) drug therapy; Z87.891 Personal history of nicotine dependence; Z95.1 Presence of aortocoronary bypass graft; Z20.822 Contact with and (suspected) exposure to COVID-19
CPT/HCPCS: 36415; 36600; 71045; 80053; 82805; 82948; 83605; 83880; 84484; 85025; 85610; 85730; 86140; 87040; 87637; 93005; 94640; 96365; 96366; 96375; 99284; A9270; J0456; J0696; J1815; J1940

== ENCOUNTER 2024-08-26 08:00 | Outpatient (RCR) | payer MEDICARE, SELFPAY ==
[2024-07-28 16:24] VITALS: BP 136/72; RESP 16; O2SAT 99; BMI 33.7
--- NOTE | 2024-10-17 13:43 | PCCPR ---
Patient has been on medical hold since last recorded session of 08/26/24. Status post partial forefoot amputation of RLE. Contact with patient maintained during recovery with plan to return to phase 2 cardiac rehab once cleared by ortho MD, and weight bearing restrictions lifted. Medical release was received from Dr. Quick, patients primary care provider, however at that time patient reported that he still had a 4-5min weight bearing status. Unfortunately, I have been unable to make contact with this patient for the last 2 weeks, messages left x3 without return call. Assuming desire/need to resign from program. Pt understood once discharged, the remaining 22 of 36 sessions would have to be forfeited. Early discharge notification sent to his referring MD, Dr. Marian Merino (CC: Dr. Delvis Quick).
== END 2024-10-17 14:47 | disposition home or self-care (01) ==
PROVIDERS: PCP Family Medicine; Visit Provider General Practice
DX: Z95.5 Presence of coronary angioplasty implant and graft (principal)
CPT/HCPCS: 93798; 99199